=== PATIENT | male | born 1980 | race Caucasian/White ===

== ENCOUNTER 2021-12-15 15:54 | Inpatient (IN) | payer MEDICAID, OTHER ==
[~2021-12-15] VITALS: Ht 172.7 cm; Wt 56.6 kg
[2021-12-15] MEDS ORDERED: SODIUM CHLORIDE 0.9% 1,000 ML IVB ONE (17:15)
[2021-12-15] MEDS ORDERED: METOCLOPRAMIDE HCL 5MG/ml INJ 2ml VIAL IV ONE (17:45)
[2021-12-15] MEDS ORDERED: MORPHINE SULFATE 4 MG/ML SYR/VIAL IV ONE ×2 (17:45→22:00)
[2021-12-15 19:33] LABS: Basophils # (auto) 0.1 10 ^3/uL (0-0.2); Basophils % (auto) 0.7 % (0.0-2.0); Eosinophils # (auto) 0 10 ^3/uL (0-0.8); Hematocrit 42.9 % (41.0-53.0); Hemoglobin 14.4 g/dL (13.5-17.5); Lymphocytes # (auto) 1.7 10 ^3/uL (0.4-5.4); Lymphocytes % (auto) 15.7 % (10.0-50.0); Mean Corpuscular Hemoglobin 28.9 pg (28.0-32.0); Mean Corpuscular Hgb Conc. 33.7 g/dL (32.0-36.0); Mean Corpuscular Volume 85.8 fL (80.0-100.0); Monocytes # (auto) 0.5 10 ^3/uL (0-1.3); Monocytes % (auto) 5.1 % (0.0-12.0); Neutrophils # (auto) 8.4 10 ^3/uL (1.6-8.6); Neutrophils % (auto) 78.5 % (37.0-80.0); Red Cell Distribution Width 14.1 % (11.8-14.3); White Blood Cell 10.7 10^3/uL (4.4-10.8)
[2021-12-15] MEDS ORDERED: IOHEXOL 300 MG/ML 100ML BOTTLE IJ ONE ×3 (19:41→20:21)
[2021-12-15 19:50] LABS: Albumin 2.4 g/dL (3.4-5.0); Calcium 8.7 mg/dL (8.5-10.1)
[2021-12-15 19:55] LABS: Bilirubin, Total 0.2 mg/dL (0.2-1.0); Total Protein 7.4 g/dL (6.4-8.2)
[2021-12-15 20:34] LABS: Potassium 2.4 mmol/L (3.5-5.1)
[2021-12-15] MEDS ORDERED: POTASSIUM EFFERVESENT TAB 25 MEQ PO ONE (20:45)
[2021-12-15 21:01] LABS: Urine Amorphous Crystal FEW /hpf (None Seen); Urine Bacteria FEW /hpf (None Seen); Urine Blood Negative /uL (Negative); Urine Hyaline Cast MOD /lpf (0 - 2); Urine Mucus FEW (None Seen); Urine Specific Gravity 1.032 (1.001-1.035); Urine WBC 3 /hpf (0 - 3)
[2021-12-15] MEDS ORDERED: ONDANSETRON HCL 4 MG/2 ML VIAL IV ONE (21:45)
[2021-12-15] MEDS: POTASSIUM CHL 20MEQ/100ML 100 ML IV SCH (21:48)
[2021-12-16] MEDS ORDERED: D5W/SOD CHL 0.45%/KCL 20MEQ 1,000 ML IV ONE (01:00)
[2021-12-16] MEDS: POTASSIUM CHL 20MEQ/100ML 100 ML IV SCH (01:25)
[2021-12-16] MEDS ORDERED: ONDANSETRON HCL 4 MG/2 ML VIAL IV ONE (01:30)
[2021-12-16] MEDS ORDERED: MORPHINE SULFATE 4 MG/ML SYR/VIAL IV ONE (01:30)
[2021-12-16] MEDS ORDERED: PIPERACILLIN-TAZOB 3.375GM 100 ML IV ONE (01:45)
[2021-12-16] MEDS ORDERED: POTASSIUM CHLORIDE 40 MEQ in SOD CHL 0.45% 1,000 ML IV SCH (01:45)
[2021-12-16] MEDS ORDERED: POTASSIUM CHL 20MEQ/100ML 100 ML IV SCH (02:15)
[2021-12-16] MEDS ORDERED: DEXTROSE (50%) 50ML SYRG IV ONE (02:15)
[2021-12-16] MEDS ORDERED: DEXTROSE (50%) 50ML SYRG IV PRN (03:15)
[2021-12-16 03:26] LABS: BUN/Creatinine Ratio 22.5; Calcium 7.9 mg/dL (8.5-10.1); Potassium 3.3 mmol/L (3.5-5.1)
[2021-12-16] MEDS: InsuLIN REG 1unit/0.01ml Soln (100units/ml) SC SCH ×5 (04:00→22:26)
[2021-12-16] MEDS: ACCU-CHEK COMFORT CURVE STRIP VI SCH ×5 (04:09→22:25)
[2021-12-16] MEDS: PIPERACILLIN-TAZOB 3.375GM 100 ML IV SCH ×3 (08:00→14:28)
[2021-12-16] MEDS ORDERED: POTASSIUM CHL 20MEQ/100ML 100 ML IV ONE (08:30)
[2021-12-16] MEDS: ONDANSETRON HCL 4 MG/2 ML VIAL IV PRN ×2 (08:51→16:49)
[2021-12-16] MEDS: MORPHINE SULFATE INJ 2 MG/ml SYRG IV PRN ×3 (08:52→22:28)
[2021-12-16] MEDS: SODIUM CHLORIDE 0.9% 1,000 ML IV SCH ×4 (11:21→22:26)
[2021-12-16] MEDS: METOCLOPRAMIDE HCL 5MG/ml INJ 2ml VIAL IV SCH ×2 (14:20→18:30)
[2021-12-16 17:11] LABS: Basophils # (auto) 0 10 ^3/uL (0-0.2); Basophils % (auto) 0.6 % (0.0-2.0); Eosinophils # (auto) 0.1 10 ^3/uL (0-0.8); Eosinophils % (auto) 0.8 % (0.0-7.0); Hematocrit 38.1 % (41.0-53.0); Hemoglobin 12.6 g/dL (13.5-17.5); Lymphocytes # (auto) 0.8 10 ^3/uL (0.4-5.4); Lymphocytes % (auto) 10.2 % (10.0-50.0); Mean Corpuscular Hemoglobin 28.7 pg (28.0-32.0); Mean Corpuscular Hgb Conc. 33.1 g/dL (32.0-36.0); Mean Corpuscular Volume 86.9 fL (80.0-100.0); Monocytes # (auto) 0.5 10 ^3/uL (0-1.3); Neutrophils # (auto) 6.2 10 ^3/uL (1.6-8.6); Neutrophils % (auto) 81.4 % (37.0-80.0); Nucleated Red Blood Cells % 0.1 %; Red Blood Cells 4.38 10^6/uL (4.5-5.90); Red Cell Distribution Width 14.1 % (11.8-14.3); White Blood Cell 7.7 10^3/uL (4.4-10.8)
[2021-12-16 17:22] LABS: BUN/Creatinine Ratio 17.2; Potassium 3.6 mmol/L (3.5-5.1)
[2021-12-16 22:00] VITALS: BP 147/103
[2021-12-17] MEDS: METOCLOPRAMIDE HCL 5MG/ml INJ 2ml VIAL IV SCH ×4 (00:12→16:50)
[2021-12-17] MEDS: ACCU-CHEK COMFORT CURVE STRIP VI SCH ×6 (00:26→20:17)
[2021-12-17] MEDS: PIPERACILLIN-TAZOB 3.375GM 100 ML IV SCH ×4 (02:00→20:16)
[2021-12-17] MEDS: MORPHINE SULFATE INJ 2 MG/ml SYRG IV PRN ×5 (04:12→21:44)
[2021-12-17] MEDS: InsuLIN REG 1unit/0.01ml Soln (100units/ml) SC SCH ×6 (04:13→20:20)
[2021-12-17 05:00] VITALS: BP 143/94
[2021-12-17 06:08] LABS: Basophils # (auto) 0 10 ^3/uL (0-0.2); Basophils % (auto) 0.5 % (0.0-2.0); Eosinophils # (auto) 0.3 10 ^3/uL (0-0.8); Eosinophils % (auto) 4.1 % (0.0-7.0); Hematocrit 35.7 % (41.0-53.0); Hemoglobin 11.8 g/dL (13.5-17.5); Lymphocytes # (auto) 0.7 10 ^3/uL (0.4-5.4); Lymphocytes % (auto) 9.3 % (10.0-50.0); Mean Corpuscular Hemoglobin 28.8 pg (28.0-32.0); Mean Corpuscular Hgb Conc. 33.1 g/dL (32.0-36.0); Mean Corpuscular Volume 86.9 fL (80.0-100.0); Monocytes # (auto) 0.5 10 ^3/uL (0-1.3); Monocytes % (auto) 6.8 % (0.0-12.0); Neutrophils # (auto) 5.6 10 ^3/uL (1.6-8.6); Neutrophils % (auto) 79.3 % (37.0-80.0); Red Cell Distribution Width 13.7 % (11.8-14.3)
[2021-12-17 06:22] LABS: Calcium 7.8 mg/dL (8.5-10.1); Potassium 3.6 mmol/L (3.5-5.1)
[2021-12-17 06:24] LABS: BUN/Creatinine Ratio 19.4
[2021-12-17] MEDS: SODIUM CHLORIDE 0.9% 1,000 ML IV SCH ×3 (08:00→18:53)
[2021-12-17] MEDS: ONDANSETRON HCL 4 MG/2 ML VIAL IV PRN ×2 (08:14→16:50)
[2021-12-17 09:00] VITALS: BP 153/98
[2021-12-17 12:58] VITALS: BP 140/92
[2021-12-17 16:50] VITALS: BP 122/83
[2021-12-17] MEDS ORDERED: INSU1INJ19 SC (17:42)
[2021-12-17] MEDS ORDERED: INSREGI SC (17:42)
[2021-12-17] MEDS: PANTOPRAZOLE 40 MG TAB PO SCH (18:52)
[2021-12-17] MEDS: ENOXAPARIN SOD 40 MG/0.4 ML SYRINGE SC SCH (18:52)
[2021-12-17] MEDS: INSULIN LANTUS (GLARGINE) 1 /0.01ml (100units/ml) SC SCH (18:53)
[2021-12-17 22:00] VITALS: BP 126/81
[2021-12-17] MEDS ORDERED: diphenhdrAMINE HCL 50 MG/1 ML VL IV PRN (23:45)
[2021-12-18] VITALS (8 sets, daily range): BP systolic 96–146; BP diastolic 55–90
[2021-12-18] MEDS: METOCLOPRAMIDE HCL 5MG/ml INJ 2ml VIAL IV SCH ×4 (00:08→17:50)
[2021-12-18] MEDS: ACCU-CHEK COMFORT CURVE STRIP VI SCH ×6 (00:08→20:49)
[2021-12-18] MEDS ORDERED: diphenhdrAMINE HCL 50 MG/1 ML VL IV PRN (00:15)
[2021-12-18] MEDS: InsuLIN REG 1unit/0.01ml Soln (100units/ml) SC SCH ×6 (04:00→20:50)
[2021-12-18] MEDS: SODIUM CHLORIDE 0.9% 1,000 ML IV SCH (04:12)
[2021-12-18 05:31] LABS: Basophils # (auto) 0.2 10 ^3/uL (0-0.2); Eosinophils # (auto) 0.3 10 ^3/uL (0-0.8); Eosinophils % (auto) 3.4 % (0.0-7.0); Hematocrit 37.9 % (41.0-53.0); Hemoglobin 12.9 g/dL (13.5-17.5); Lymphocytes # (auto) 0.2 10 ^3/uL (0.4-5.4); Lymphocytes % (auto) 1.9 % (10.0-50.0); Mean Corpuscular Hemoglobin 29.1 pg (28.0-32.0); Mean Corpuscular Hgb Conc. 33.9 g/dL (32.0-36.0); Mean Corpuscular Volume 85.9 fL (80.0-100.0); Monocytes # (auto) 0.2 10 ^3/uL (0-1.3); Monocytes % (auto) 2.5 % (0.0-12.0); Neutrophils # (auto) 7.6 10 ^3/uL (1.6-8.6); Neutrophils % (auto) 90.2 % (37.0-80.0); Red Blood Cells 4.42 10^6/uL (4.5-5.90); Red Cell Distribution Width 13.9 % (11.8-14.3); White Blood Cell 8.4 10^3/uL (4.4-10.8)
[2021-12-18] MEDS ORDERED: metroNIDAZOLE 500MG/100ML 100 ML IV SCH (06:00)
[2021-12-18 06:09] LABS: BUN/Creatinine Ratio 13.1; Calcium 7.5 mg/dL (8.5-10.1)
[2021-12-18 06:21] LABS: Potassium 2.8 mmol/L (3.5-5.1)
[2021-12-18] MEDS: MORPHINE SULFATE INJ 2 MG/ml SYRG IV PRN ×2 (09:59→17:07)
[2021-12-18] MEDS ORDERED: levoFLOXacin 500MG 100 ML IV SCH (10:00)
[2021-12-18] MEDS: INSULIN LANTUS (GLARGINE) 1 /0.01ml (100units/ml) SC SCH (10:00)
[2021-12-18] MEDS: ENOXAPARIN SOD 40 MG/0.4 ML SYRINGE SC SCH (10:17)
[2021-12-18] MEDS: PANTOPRAZOLE 40 MG TAB PO SCH (10:22)
[2021-12-18] MEDS ORDERED: METO-281 PO (13:11)
[2021-12-18] MEDS ORDERED: POTASSIUM CHL 20 Meq TABLET PO ONE (13:15)
[2021-12-18] MEDS: POTASSIUM CHL 20MEQ/100ML 100 ML IV SCH ×2 (13:15→15:08)
[2021-12-18 20:13] LABS: Albumin 1.5 g/dL (3.4-5.0); BUN/Creatinine Ratio 11.8; Calcium 7.2 mg/dL (8.5-10.1)
[2021-12-18 20:16] LABS: Bilirubin, Total 0.2 mg/dL (0.2-1.0); Total Protein 4.6 g/dL (6.4-8.2)
== END 2021-12-18 23:23 | disposition home or self-care (01) | DRG 48 ==
LOC: EDBD 15:54 → ER 15:54 → TELE 12-16 02:55 → TELE-WESTW 12-16 20:18
PROVIDERS: ADMIT Internal Medicine; ATTEND Internal Medicine
DX: E10.43 Type 1 diabetes mellitus with diabetic autonomic (poly)neuropathy (principal); E44.1 Mild protein-calorie malnutrition; K31.84 Gastroparesis; E87.6 Hypokalemia; Z20.822 Contact with and (suspected) exposure to COVID-19; F12.90 Cannabis use, unspecified, uncomplicated; Z79.4 Long term (current) use of insulin; Z91.19 Patient's noncompliance with other medical treatment and regimen; Z68.1 Body mass index [BMI] 19.9 or less, adult
CPT/HCPCS: 36415; 74177; 76705; 80048; 80053; 81001; 82962; 83605; 83690; 83735; 84132; 85025; 87040; 96361; 96365; 96375; 97163; G0378; J1815; J1956; J2405; J2543; J3480; J3490

== ENCOUNTER 2022-02-08 11:46 | Inpatient (IN) | payer MEDICAID ==
[~2022-02-08] VITALS: Ht 172.7 cm; Wt 48.6 kg
[~2022-02-08 11:46] MED LIST: INSREGI SC; INSU1INJ19 SC; METO-281 PO
[2022-02-08] MEDS ORDERED: PROCHLORPERAZINE EDISYLATE 5 MG/ML 2ML VIAL IV ONE (12:15)
[2022-02-08] MEDS ORDERED: PANTOPRAZOLE 40 MG/10 ML VIAL INJ IV ONE (12:15)
[2022-02-08] MEDS ORDERED: SODIUM CHLORIDE 0.9% 1,000 ML IVB ONE (12:15)
[2022-02-08] MEDS ORDERED: MORPHINE SULFATE 4 MG/ML SYR/VIAL IV ONE ×2 (12:15→19:00)
[2022-02-08 14:32] LABS: Urine Bacteria FEW /hpf (None Seen); Urine Blood 1+ /uL (Negative); Urine Hyaline Cast FEW /lpf (0 - 2); Urine Mucus FEW (None Seen); Urine Specific Gravity 1.024 (1.001-1.035); Urine Sperm PRESENT /hpf (None Seen); Urine WBC 4 /hpf (0 - 3)
[2022-02-08 14:44] LABS: Basophils # (auto) 0 10 ^3/uL (0-0.2); Basophils % (auto) 0.4 % (0.0-2.0); Eosinophils # (auto) 0 10 ^3/uL (0-0.8); Eosinophils % (auto) 0.1 % (0.0-7.0); Hematocrit 43.2 % (41.0-53.0); Hemoglobin 13.7 g/dL (13.5-17.5); Lymphocytes # (auto) 1.3 10 ^3/uL (0.4-5.4); Lymphocytes % (auto) 13.3 % (10.0-50.0); Mean Corpuscular Hgb Conc. 31.7 g/dL (32.0-36.0); Mean Corpuscular Volume 85.2 fL (80.0-100.0); Monocytes # (auto) 0.6 10 ^3/uL (0-1.3); Monocytes % (auto) 5.8 % (0.0-12.0); Neutrophils # (auto) 7.8 10 ^3/uL (1.6-8.6); Neutrophils % (auto) 80.4 % (37.0-80.0); Red Blood Cells 5.06 10^6/uL (4.5-5.90); Red Cell Distribution Width 15.3 % (11.8-14.3); White Blood Cell 9.7 10^3/uL (4.4-10.8)
[2022-02-08 14:57] LABS: Albumin 3.2 g/dL (3.4-5.0); BUN/Creatinine Ratio 25.9; Calcium 8.6 mg/dL (8.5-10.1); Potassium 4.1 mmol/L (3.5-5.1)
[2022-02-08 15:09] LABS: Bilirubin, Total 0.2 mg/dL (0.2-1.0); Total Protein 7.6 g/dL (6.4-8.2)
[2022-02-08 15:20] LABS: Lactic Acid w/Reflex 2.2 mmol/L (0.4-2.0)
[2022-02-08] MEDS ORDERED: levoFLOXacin 500MG 100 ML IV ONE (16:30)
[2022-02-08] MEDS ORDERED: ONDANSETRON HCL 4 MG/2 ML VIAL IV ONE (19:00)
[2022-02-08] MEDS ORDERED: ACETAMINOPHEN 325 MG TAB PO PRN (22:00)
[2022-02-08] MEDS: MORPHINE SULFATE INJ 2 MG/ml SYRG IV PRN (23:40)
[2022-02-08] MEDS: ONDANSETRON HCL 4 MG/2 ML VIAL IV PRN (23:40)
[2022-02-09] VITALS (7 sets, daily range): BP systolic 131–155; BP diastolic 85–96
[2022-02-09] MEDS ORDERED: HYDR-4902 PO (03:01)
[2022-02-09] MEDS: HYDROcodone-ACET 5/325MG TAB PO PRN ×3 (03:27→18:48)
[2022-02-09] MEDS: ONDANSETRON HCL 4 MG/2 ML VIAL IV PRN ×4 (05:29→18:48)
[2022-02-09 06:35] LABS: Basophils # (auto) 0 10 ^3/uL (0-0.2); Basophils % (auto) 0.4 % (0.0-2.0); Eosinophils # (auto) 0 10 ^3/uL (0-0.8); Eosinophils % (auto) 0.4 % (0.0-7.0); Hematocrit 39.1 % (41.0-53.0); Hemoglobin 12.9 g/dL (13.5-17.5); Lymphocytes # (auto) 1.9 10 ^3/uL (0.4-5.4); Lymphocytes % (auto) 18.9 % (10.0-50.0); Mean Corpuscular Hemoglobin 28.4 pg (28.0-32.0); Mean Corpuscular Hgb Conc. 32.9 g/dL (32.0-36.0); Mean Corpuscular Volume 86.3 fL (80.0-100.0); Monocytes # (auto) 0.5 10 ^3/uL (0-1.3); Monocytes % (auto) 5.6 % (0.0-12.0); Neutrophils # (auto) 7.3 10 ^3/uL (1.6-8.6); Neutrophils % (auto) 74.7 % (37.0-80.0); Nucleated Red Blood Cells % 0.1 %; Red Blood Cells 4.53 10^6/uL (4.5-5.90); Red Cell Distribution Width 14.9 % (11.8-14.3); White Blood Cell 9.8 10^3/uL (4.4-10.8)
[2022-02-09 06:50] LABS: Albumin 2.7 g/dL (3.4-5.0); Calcium 8.6 mg/dL (8.5-10.1)
[2022-02-09 06:53] LABS: Bilirubin, Total 0.3 mg/dL (0.2-1.0); Total Protein 6.8 g/dL (6.4-8.2)
[2022-02-09] MEDS ORDERED: InsuLIN REG 1unit/0.01ml Soln (100units/ml) SC ONE (08:45)
[2022-02-09] MEDS ORDERED: INSULIN 70/30 1unit/0.01ml Susp (100units/ml) SC ONE (08:45)
[2022-02-09] MEDS: MORPHINE SULFATE INJ 2 MG/ml SYRG IV PRN ×3 (09:11→21:19)
[2022-02-09] MEDS: cefTRIAXone 1GM/50ML D5W 50 ML IV SCH (09:12)
[2022-02-09] MEDS ORDERED: HYDROmorphone HCL 2 MG/ML VL/or syr IV ONE (11:30)
[2022-02-09] MEDS: ACCU-CHEK COMFORT CURVE STRIP VI SCH ×3 (11:53→21:51)
[2022-02-09] MEDS: InsuLIN REG 1unit/0.01ml Soln (100units/ml) SC SCH ×3 (11:53→21:51)
[2022-02-09] MEDS: metroNIDAZOLE 500MG/100ML 100 ML IV SCH ×2 (14:00→21:51)
[2022-02-09] MEDS ORDERED: OMNIPAQUE ORAL SOLN 500ml 12mg/ml PO ONE (14:43)
[2022-02-09] MEDS: SOD CHL 0.9%/ KCL 20MEQ 1,000 ML IV SCH (15:58)
[2022-02-09] MEDS ORDERED: METOCLOPRAMIDE HCL 5MG/ml INJ 2ml VIAL IV ONE (17:15)
[2022-02-09] MEDS: INSULIN 70/30 1unit/0.01ml Susp (100units/ml) SC SCH (17:30)
[2022-02-09] MEDS ORDERED: IOHEXOL 300 MG/ML 100ML BOTTLE IJ ONE ×2 (19:26→19:46)
[2022-02-09] MEDS: PANTOPRAZOLE 40 MG/10 ML VIAL INJ IV SCH (21:19)
[2022-02-09] MEDS: METOCLOPRAMIDE HCL 5MG/ml INJ 2ml VIAL IV SCH (21:19)
[2022-02-10] MEDS: ONDANSETRON HCL 4 MG/2 ML VIAL IV PRN ×4 (00:25→20:16)
[2022-02-10] MEDS: MORPHINE SULFATE INJ 2 MG/ml SYRG IV PRN ×3 (01:28→11:14)
[2022-02-10] MEDS: SOD CHL 0.9%/ KCL 20MEQ 1,000 ML IV SCH (01:30)
[2022-02-10 05:00] VITALS: BP 168/93
[2022-02-10] MEDS: metroNIDAZOLE 500MG/100ML 100 ML IV SCH ×4 (05:17→22:00)
[2022-02-10] MEDS: METOCLOPRAMIDE HCL 5MG/ml INJ 2ml VIAL IV SCH ×2 (05:39→22:00)
[2022-02-10] MEDS: ACCU-CHEK COMFORT CURVE STRIP VI SCH ×4 (06:00→22:00)
[2022-02-10] MEDS: InsuLIN REG 1unit/0.01ml Soln (100units/ml) SC SCH ×4 (06:01→22:00)
[2022-02-10 06:40] LABS: Basophils % (auto) 0.2 % (0.0-2.0); Lymphocytes % (auto) 10.3 % (10.0-50.0); Monocytes % (auto) 3.9 % (0.0-12.0); Neutrophils % (auto) 85.6 % (37.0-80.0); Nucleated Red Blood Cells % 0.1 %; White Blood Cell 12.3 10^3/uL (4.4-10.8)
[2022-02-10 06:41] LABS: Basophils # (auto) 0 10 ^3/uL (0-0.2); Eosinophils # (auto) 0 10 ^3/uL (0-0.8); Hematocrit 42.6 % (41.0-53.0); Hemoglobin 13.3 g/dL (13.5-17.5); Lymphocytes # (auto) 1.3 10 ^3/uL (0.4-5.4); Mean Corpuscular Hemoglobin 27.6 pg (28.0-32.0); Mean Corpuscular Hgb Conc. 31.2 g/dL (32.0-36.0); Mean Corpuscular Volume 88.3 fL (80.0-100.0); Monocytes # (auto) 0.5 10 ^3/uL (0-1.3); Neutrophils # (auto) 10.5 10 ^3/uL (1.6-8.6); Red Blood Cells 4.82 10^6/uL (4.5-5.90); Red Cell Distribution Width 15.8 % (11.8-14.3)
[2022-02-10 08:00] VITALS: BP 155/90
[2022-02-10] MEDS: PANTOPRAZOLE 40 MG/10 ML VIAL INJ IV SCH ×2 (08:49→21:59)
[2022-02-10] MEDS: cefTRIAXone 1GM/50ML D5W 50 ML IV SCH (08:49)
[2022-02-10] MEDS: HYDROcodone-ACET 5/325MG TAB PO PRN (08:50)
[2022-02-10] MEDS: INSULIN 70/30 1unit/0.01ml Susp (100units/ml) SC SCH ×2 (10:40→17:30)
[2022-02-10] MEDS: DEXTROSE (50%) 50ML SYRG IV PRN ×2 (12:20→17:19)
[2022-02-10 13:00] VITALS: BP 142/92
[2022-02-10] MEDS ORDERED: cloNIDine 0.1 mg/24hr 7 DAY PATCH TD SCH (13:15)
[2022-02-10] MEDS ORDERED: METOCLOPRAMIDE 10 mg/10ml ORAL soln PO SCH (14:00)
[2022-02-10] MEDS: D5W/SOD CHL 0.45%/KCL 20MEQ 1,000 ML IV SCH ×2 (15:29→23:15)
[2022-02-10 16:39] VITALS: BP 155/96
[2022-02-10] MEDS: MORPHINE SULFATE 4 MG/ML SYR/VIAL IV PRN ×2 (17:58→21:59)
[2022-02-10 22:00] VITALS: BP 136/102
[2022-02-11] MEDS: MORPHINE SULFATE 4 MG/ML SYR/VIAL IV PRN ×6 (02:32→22:46)
[2022-02-11] MEDS: ONDANSETRON HCL 4 MG/2 ML VIAL IV PRN ×4 (02:32→18:44)
[2022-02-11] MEDS: HYDROcodone-ACET 5/325MG TAB PO PRN (03:50)
[2022-02-11 05:00] VITALS: BP 154/104
[2022-02-11] MEDS: METOCLOPRAMIDE HCL 5MG/ml INJ 2ml VIAL IV SCH ×3 (06:20→22:36)
[2022-02-11] MEDS: metroNIDAZOLE 500MG/100ML 100 ML IV SCH ×3 (06:22→22:43)
[2022-02-11] MEDS: ACCU-CHEK COMFORT CURVE STRIP VI SCH ×4 (06:26→22:31)
[2022-02-11] MEDS: InsuLIN REG 1unit/0.01ml Soln (100units/ml) SC SCH ×4 (06:26→22:30)
[2022-02-11 07:29] LABS: Basophils # (auto) 0.1 10 ^3/uL (0-0.2); Basophils % (auto) 0.8 % (0.0-2.0); Eosinophils # (auto) 0.1 10 ^3/uL (0-0.8); Eosinophils % (auto) 0.6 % (0.0-7.0); Hemoglobin 13.4 g/dL (13.5-17.5); Lymphocytes % (auto) 9.6 % (10.0-50.0); Mean Corpuscular Hemoglobin 27.5 pg (28.0-32.0); Mean Corpuscular Volume 85.8 fL (80.0-100.0); Monocytes # (auto) 0.6 10 ^3/uL (0-1.3); Monocytes % (auto) 5.7 % (0.0-12.0); Neutrophils # (auto) 9.1 10 ^3/uL (1.6-8.6); Neutrophils % (auto) 83.3 % (37.0-80.0); Red Blood Cells 4.89 10^6/uL (4.5-5.90); Red Cell Distribution Width 15.7 % (11.8-14.3); White Blood Cell 10.9 10^3/uL (4.4-10.8)
[2022-02-11 07:40] LABS: BUN/Creatinine Ratio 22.7; Calcium 8.6 mg/dL (8.5-10.1); Magnesium 2.5 mg/dL (1.6-2.6)
[2022-02-11] MEDS: INSULIN 70/30 1unit/0.01ml Susp (100units/ml) SC SCH ×2 (08:00→17:25)
[2022-02-11] MEDS: cefTRIAXone 1GM/50ML D5W 50 ML IV SCH (08:09)
[2022-02-11 09:00] VITALS: BP 151/95
[2022-02-11] MEDS: D5W/SOD CHL 0.45%/KCL 20MEQ 1,000 ML IV SCH ×2 (09:15→19:15)
[2022-02-11] MEDS: PANTOPRAZOLE 40 MG/10 ML VIAL INJ IV SCH ×2 (10:32→22:43)
[2022-02-11] MEDS: ERYTHROMYCIN LACTOBIONATE 250 MG in SODIUM CHL 0.9% 100 ML IV SCH (10:47)
[2022-02-11 13:00] VITALS: BP 150/94
[2022-02-11 17:00] VITALS: BP 152/98
[2022-02-11 22:00] VITALS: BP 142/91
[2022-02-12] MEDS: MORPHINE SULFATE 4 MG/ML SYR/VIAL IV PRN ×4 (02:16→22:09)
[2022-02-12] MEDS: D5W/SOD CHL 0.45%/KCL 20MEQ 1,000 ML IV SCH ×3 (02:50→23:54)
[2022-02-12 05:00] VITALS: BP 134/86
[2022-02-12] MEDS: metroNIDAZOLE 500MG/100ML 100 ML IV SCH ×3 (06:20→21:28)
[2022-02-12] MEDS: METOCLOPRAMIDE HCL 5MG/ml INJ 2ml VIAL IV SCH ×3 (06:34→22:09)
[2022-02-12] MEDS: InsuLIN REG 1unit/0.01ml Soln (100units/ml) SC SCH ×4 (06:35→22:25)
[2022-02-12] MEDS: ACCU-CHEK COMFORT CURVE STRIP VI SCH ×4 (06:36→22:25)
[2022-02-12 06:42] LABS: Basophils # (auto) 0.1 10 ^3/uL (0-0.2); Basophils % (auto) 1.3 % (0.0-2.0); Eosinophils # (auto) 0.8 10 ^3/uL (0-0.8); Eosinophils % (auto) 8.4 % (0.0-7.0); Hematocrit 40.2 % (41.0-53.0); Hemoglobin 12.8 g/dL (13.5-17.5); Lymphocytes % (auto) 21.9 % (10.0-50.0); Mean Corpuscular Hemoglobin 27.5 pg (28.0-32.0); Mean Corpuscular Hgb Conc. 31.7 g/dL (32.0-36.0); Mean Corpuscular Volume 86.7 fL (80.0-100.0); Monocytes # (auto) 0.6 10 ^3/uL (0-1.3); Monocytes % (auto) 6.4 % (0.0-12.0); Neutrophils # (auto) 5.7 10 ^3/uL (1.6-8.6); Nucleated Red Blood Cells % 0.1 %; Red Blood Cells 4.64 10^6/uL (4.5-5.90); Red Cell Distribution Width 15.4 % (11.8-14.3); White Blood Cell 9.2 10^3/uL (4.4-10.8)
[2022-02-12 07:04] LABS: BUN/Creatinine Ratio 21.5; Potassium 3.7 mmol/L (3.5-5.1)
[2022-02-12] MEDS: INSULIN 70/30 1unit/0.01ml Susp (100units/ml) SC SCH ×2 (07:30→17:49)
[2022-02-12 08:30] VITALS: BP 136/82
[2022-02-12 09:37] VITALS: BP 136/82
[2022-02-12] MEDS: cefTRIAXone 1GM/50ML D5W 50 ML IV SCH (12:30)
[2022-02-12] MEDS: PANTOPRAZOLE 40 MG/10 ML VIAL INJ IV SCH ×2 (12:35→22:09)
[2022-02-12 13:23] VITALS: BP 127/88
[2022-02-12] MEDS: ERYTHROMYCIN LACTOBIONATE 250 MG in SODIUM CHL 0.9% 100 ML IV SCH (15:00)
[2022-02-12 16:48] VITALS: BP 141/84
[2022-02-12 22:00] VITALS: BP 125/78
[2022-02-13 05:00] VITALS: BP 161/104
[2022-02-13] MEDS: METOCLOPRAMIDE HCL 5MG/ml INJ 2ml VIAL IV SCH ×3 (05:31→22:23)
[2022-02-13] MEDS: metroNIDAZOLE 500MG/100ML 100 ML IV SCH ×3 (05:31→22:23)
[2022-02-13] MEDS: MORPHINE SULFATE 4 MG/ML SYR/VIAL IV PRN ×2 (05:34→18:27)
[2022-02-13] MEDS ORDERED: hydrALAZINE HCL 20 MG/ML VL IV PRN (06:15)
[2022-02-13] MEDS: ACCU-CHEK COMFORT CURVE STRIP VI SCH ×4 (06:33→22:07)
[2022-02-13] MEDS: InsuLIN REG 1unit/0.01ml Soln (100units/ml) SC SCH ×4 (06:34→22:00)
[2022-02-13 09:00] VITALS: BP 139/93
[2022-02-13] MEDS: cefTRIAXone 1GM/50ML D5W 50 ML IV SCH (09:04)
[2022-02-13] MEDS: PANTOPRAZOLE 40 MG/10 ML VIAL INJ IV SCH ×2 (09:13→22:23)
[2022-02-13] MEDS: INSULIN 70/30 1unit/0.01ml Susp (100units/ml) SC SCH ×2 (09:13→17:02)
[2022-02-13] MEDS: D5W/SOD CHL 0.45%/KCL 20MEQ 1,000 ML IV SCH ×2 (11:45→22:22)
[2022-02-13 13:00] VITALS: BP 129/91
[2022-02-13 17:00] VITALS: BP 129/94
[2022-02-13 22:32] VITALS: BP 135/85
[2022-02-14 05:06] VITALS: BP 148/99
[2022-02-14] MEDS: METOCLOPRAMIDE HCL 5MG/ml INJ 2ml VIAL IV SCH ×2 (06:39→14:00)
[2022-02-14] MEDS: metroNIDAZOLE 500MG/100ML 100 ML IV SCH ×2 (06:39→14:00)
[2022-02-14] MEDS: ACCU-CHEK COMFORT CURVE STRIP VI SCH ×3 (06:40→18:00)
[2022-02-14] MEDS: InsuLIN REG 1unit/0.01ml Soln (100units/ml) SC SCH ×3 (06:58→18:00)
[2022-02-14 09:00] VITALS: BP 141/96
[2022-02-14] MEDS: cefTRIAXone 1GM/50ML D5W 50 ML IV SCH (09:41)
[2022-02-14] MEDS: PANTOPRAZOLE 40 MG/10 ML VIAL INJ IV SCH (09:42)
[2022-02-14] MEDS: INSULIN 70/30 1unit/0.01ml Susp (100units/ml) SC SCH ×2 (09:55→18:00)
[2022-02-14] MEDS: D5W/SOD CHL 0.45%/KCL 20MEQ 1,000 ML IV SCH ×2 (10:40→18:00)
[2022-02-14 13:00] VITALS: BP 143/96
[2022-02-14] MEDS ORDERED: METO5TAB67 PO (16:10)
[2022-02-14 16:43] VITALS: BP 137/83
== END 2022-02-14 18:00 | disposition home or self-care (01) | DRG 48 ==
LOC: ER 11:46 → EDBD 11:46 → OVERFLOW 22:51 → WEST WING 23:55
PROVIDERS: ADMIT Nurse Practitioner; ATTEND Internal Medicine
DX: E10.43 Type 1 diabetes mellitus with diabetic autonomic (poly)neuropathy (principal); N17.9 Acute kidney failure, unspecified; R64 Cachexia; E10.21 Type 1 diabetes mellitus with diabetic nephropathy; K31.84 Gastroparesis; E86.0 Dehydration; E87.6 Hypokalemia; E10.65 Type 1 diabetes mellitus with hyperglycemia; K21.9 Gastro-esophageal reflux disease without esophagitis; Z20.822 Contact with and (suspected) exposure to COVID-19; Z68.1 Body mass index [BMI] 19.9 or less, adult; Z79.4 Long term (current) use of insulin
CPT/HCPCS: 36415; 74176; 74177; 76705; 80048; 80053; 81001; 82150; 82962; 83036; 83605; 83690; 83735; 85025; 86141; 87040; 93005; 96361; 96365; 96375; 96376; C9113; G0378; J0696; J1815; J1956; J2405; J3490

== ENCOUNTER 2022-07-15 18:49 | Inpatient (IN) | payer MEDICAID ==
[~2022-07-15] VITALS: Ht 175.3 cm; Wt 61.0 kg
[~2022-07-15 18:49] MED LIST changes: +HYDR-4902 PO; -METO-281 PO; +METO5TAB67 PO
[2022-07-15] MEDS ORDERED: ONDANSETRON HCL 4 MG/2 ML VIAL IV ONE ×2 (19:30→22:30)
[2022-07-15] MEDS ORDERED: SODIUM CHLORIDE 0.9% 1,000 ML IVB ONE (19:30)
[2022-07-15 20:49] LABS: Eosinophils # (auto) 0 10 ^3/uL (0-0.8); Neutrophils # (auto) 15.3 10 ^3/uL (1.6-8.6)
[2022-07-15 20:51] LABS: Basophils # (auto) 0.1 10 ^3/uL (0-0.2); Basophils % (auto) 0.5 % (0.0-2.0); Hematocrit 43.5 % (41.0-53.0); Lymphocytes # (auto) 1.3 10 ^3/uL (0.4-5.4); Lymphocytes % (auto) 7.2 % (10.0-50.0); Mean Corpuscular Hemoglobin 27.2 pg (28.0-32.0); Mean Corpuscular Hgb Conc. 32.3 g/dL (32.0-36.0); Mean Corpuscular Volume 84.2 fL (80.0-100.0); Monocytes # (auto) 1.1 10 ^3/uL (0-1.3); Monocytes % (auto) 6.3 % (0.0-12.0); Red Blood Cells 5.17 10^6/uL (4.5-5.90); Red Cell Distribution Width 14.2 % (11.8-14.3); White Blood Cell 17.8 10^3/uL (4.4-10.8)
[2022-07-15 21:04] LABS: INR 0.92 (0.9-1.15); Partial Thromboplastin Time 24.4 sec (24.6-33.4)
[2022-07-15 21:05] LABS: Albumin 3.6 g/dL (3.4-5.0); BUN/Creatinine Ratio 19.1; Calcium 10.3 mg/dL (8.5-10.1)
[2022-07-15 21:08] LABS: Bilirubin, Total 0.2 mg/dL (0.2-1.0)
[2022-07-15 21:10] LABS: Lactic Acid w/Reflex 3.5 mmol/L (0.4-2.0)
[2022-07-15] MEDS ORDERED: DEXTROSE 50% SYRINGE 50 ML IV ONE (21:53)
[2022-07-15] MEDS ORDERED: DEXTROSE (50%) 50ML SYRG IV ONE (22:00)
[2022-07-15] MEDS ORDERED: MORPHINE SULFATE 4 MG/ML SYR/VIAL IV ONE (22:30)
[2022-07-15] MEDS ORDERED: D5W/SOD CHL 0.45% 1,000 ML IV ONE (22:45)
[2022-07-15] MEDS ORDERED: PANTOPRAZOLE 40 MG/10 ML VIAL INJ IV ONE (22:45)
[2022-07-15] MEDS ORDERED: PIPERACILLIN-TAZOB 3.375GM 100 ML IV ONE (22:45)
[2022-07-16] MEDS ORDERED: METOCLOPRAMIDE HCL 5MG/ml INJ 2ml VIAL IV ONE (02:45)
[2022-07-16] MEDS ORDERED: MORPHINE SULFATE 4 MG/ML SYR/VIAL IV ONE (02:45)
[2022-07-16] MEDS ORDERED: PROCHLORPERAZINE EDISYLATE 5 MG/ML 2ML VIAL IV ONE (05:30)
[2022-07-16] MEDS ORDERED: HYDROcodone-ACET 5/325MG TAB PO PRN (07:00)
[2022-07-16] MEDS ORDERED: VANCOMYCIN PER PHARMACY 0 MG IV SCH (07:00)
[2022-07-16] MEDS ORDERED: MAALOX PLUS or MAALOX 30 ML PO PRN (07:00)
[2022-07-16] MEDS: D5W/SOD CHL 0.45% 1,000 ML IV SCH ×2 (07:00→23:40)
[2022-07-16] MEDS ORDERED: LORazepam 0.5 MG TAB PO PRN (07:00)
[2022-07-16] MEDS ORDERED: TEMAZEPAM 15 MG CAP PO PRN (07:00)
[2022-07-16] MEDS ORDERED: ACETAMINOPHEN 325 MG TAB PO PRN (07:00)
[2022-07-16] MEDS ORDERED: DOCUSATE SOD 100 MG CAP PO PRN (07:00)
[2022-07-16] MEDS ORDERED: DEXTROSE 50% SYRINGE 50 ML IV ONE (07:15)
[2022-07-16] MEDS ORDERED: DEXTROSE (50%) 50ML SYRG IV ONE (07:15)
[2022-07-16] MEDS ORDERED: VANCOMYCIN 1GM/250ML 250 ML IV ONE (08:00)
[2022-07-16 08:19] LABS: Hematocrit 42.1 % (41.0-53.0); Hemoglobin 14.2 g/dL (13.5-17.5); Mean Corpuscular Hemoglobin 28.5 pg (28.0-32.0); Mean Corpuscular Hgb Conc. 33.7 g/dL (32.0-36.0); Mean Corpuscular Volume 84.4 fL (80.0-100.0); Red Blood Cells 4.98 10^6/uL (4.5-5.90); Red Cell Distribution Width 14.4 % (11.8-14.3); White Blood Cell 13.9 10^3/uL (4.4-10.8)
[2022-07-16] MEDS: ONDANSETRON HCL 4 MG/2 ML VIAL IV PRN ×2 (08:21→12:16)
[2022-07-16 08:22] LABS: Basophils % (manual) 0 (0.0-2.0); Blast Cells 0; Eosinophils % (manual) 0 (0-7); Metamyelocytes % 0; Myelocytes % 0; Promyelocytes % 0; Reactive Lymphocytes 0
[2022-07-16] MEDS: MORPHINE SULFATE INJ 2 MG/ml SYRG IV PRN ×3 (08:22→19:48)
[2022-07-16 08:58] LABS: Calcium 8.9 mg/dL (8.5-10.1)
[2022-07-16 09:01] LABS: BUN/Creatinine Ratio 21.9; Potassium 3.9 mmol/L (3.5-5.1)
[2022-07-16] MEDS: PANTOPRAZOLE 40 MG/10 ML VIAL INJ IV SCH ×2 (10:00→21:52)
[2022-07-16 14:03] LABS: Band Neutrophils % (manual) 8; Lymphocytes % (manual) 2 (10.0-50.0); Monocytes % (manual) 4 (0-12)
[2022-07-16] MEDS: PIPERACILLIN-TAZOB 3.375GM 100 ML IV SCH ×2 (14:22→22:59)
[2022-07-16 21:13] LABS: Urine Bacteria NONE SEEN /hpf (None Seen); Urine Blood 1+ /uL (Negative); Urine Hyaline Cast MOD /lpf (0 - 2); Urine Specific Gravity 1.021 (1.001-1.035); Urine WBC 3 /hpf (0 - 3)
[2022-07-17 00:39] VITALS: BP 120/75
[2022-07-17 05:00] VITALS: BP 125/81
[2022-07-17] MEDS: PIPERACILLIN-TAZOB 3.375GM 100 ML IV SCH ×3 (05:30→22:38)
[2022-07-17] MEDS: D5W/SOD CHL 0.45% 1,000 ML IV SCH ×2 (05:41→15:12)
[2022-07-17] MEDS: MORPHINE SULFATE INJ 2 MG/ml SYRG IV PRN ×3 (07:56→20:29)
[2022-07-17 08:00] VITALS: BP 142/80
[2022-07-17] MEDS: PANTOPRAZOLE 40 MG/10 ML VIAL INJ IV SCH ×2 (10:27→22:38)
[2022-07-17] MEDS: VANCOMYCIN 1GM/250ML 250 ML IV SCH (10:27)
[2022-07-17] MEDS: ONDANSETRON HCL 4 MG/2 ML VIAL IV PRN (10:28)
[2022-07-17 12:00] VITALS: BP 132/74
[2022-07-17] MEDS: METOCLOPRAMIDE HCL 10 MG TAB PO SCH ×2 (15:11→22:36)
[2022-07-17 16:00] VITALS: BP 122/62
[2022-07-17 22:00] VITALS: BP 115/55
[2022-07-18] VITALS (13 sets, daily range): BP systolic 98–117; BP diastolic 47–65
[2022-07-18] MEDS: D5W/SOD CHL 0.45% 1,000 ML IV SCH (00:15)
[2022-07-18] MEDS: VANCOMYCIN 1GM/250ML 250 ML IV SCH ×2 (00:56→14:00)
[2022-07-18] MEDS: MORPHINE SULFATE INJ 2 MG/ml SYRG IV PRN ×3 (00:57→23:34)
[2022-07-18] MEDS ORDERED: InsuLIN REG 1unit/0.01ml Soln (100units/ml) SC ONE (05:30)
[2022-07-18] MEDS ORDERED: SODIUM CHLORIDE 0.9% 1,000 ML IV SCH ×2 (05:30→09:15)
[2022-07-18] MEDS: METOCLOPRAMIDE HCL 10 MG TAB PO SCH ×3 (05:48→21:36)
[2022-07-18] MEDS: PIPERACILLIN-TAZOB 3.375GM 100 ML IV SCH ×3 (05:59→21:35)
[2022-07-18] MEDS ORDERED: DEXTROSE (50%) 50ML SYRG IV PRN ×4 (07:30→16:45)
[2022-07-18 07:33] LABS: Albumin 2.4 g/dL (3.4-5.0); Calcium 7.7 mg/dL (8.5-10.1); Potassium 4.8 mmol/L (3.5-5.1)
[2022-07-18 07:57] LABS: Bilirubin, Total 0.6 mg/dL (0.2-1.0)
[2022-07-18] MEDS ORDERED: ACCU-CHEK COMFORT CURVE STRIP VI SCH ×3 (08:00→20:00)
[2022-07-18] MEDS ORDERED: InsuLIN REG 1unit/0.01ml Soln (100units/ml) SC SCH ×2 (08:00→20:00)
[2022-07-18 08:50] LABS: BUN/Creatinine Ratio 26.1
[2022-07-18] MEDS: PANTOPRAZOLE 40 MG/10 ML VIAL INJ IV SCH (10:22)
[2022-07-18] MEDS ORDERED: SODIUM CHLORIDE 0.9% 1,000 ML IV ONE (10:30)
[2022-07-18] MEDS: ACCU-CHEK COMFORT CURVE STRIP VI SCH ×7 (12:13→23:43)
[2022-07-18] MEDS ORDERED: SODIUM CHLORIDE 0.9% 2,000 ML IV ONE (12:15)
[2022-07-18] MEDS: InsuLIN R (HUMAN) 100 UNITS in SODIUM CHL 0.9% 99 ML IV SCH ×2 (12:24→15:26)
[2022-07-18 13:48] LABS: BUN/Creatinine Ratio 26.2; Calcium 8.1 mg/dL (8.5-10.1); Potassium 4.2 mmol/L (3.5-5.1)
[2022-07-18] MEDS: D5W/SOD CHLO 0.9% 1,000 ML IV SCH ×2 (14:00→21:00)
[2022-07-18] MEDS: InsuLIN REG 1unit/0.01ml Soln (100units/ml) SC SCH ×3 (17:18→23:46)
[2022-07-18] MEDS: SUCRALFATE 1 GM/10 ML ORAL SUSP GT SCH (17:24)
[2022-07-18 18:09] LABS: Calcium 7.4 mg/dL (8.5-10.1); Potassium 4.5 mmol/L (3.5-5.1)
[2022-07-18 18:12] LABS: BUN/Creatinine Ratio 25.5
[2022-07-18] MEDS: PANTOPRAZOLE 40 MG TAB PO SCH (21:35)
[2022-07-18 23:26] LABS: Calcium 7.3 mg/dL (8.5-10.1); Potassium 3.8 mmol/L (3.5-5.1)
[2022-07-19] VITALS (10 sets, daily range): BP systolic 104–134; BP diastolic 48–77
[2022-07-19] MEDS: ONDANSETRON HCL 4 MG/2 ML VIAL IV PRN (03:00)
[2022-07-19] MEDS: D5W/SOD CHLO 0.9% 1,000 ML IV SCH ×4 (03:00→23:27)
[2022-07-19] MEDS ORDERED: HYDROcodone-ACET 5/325MG TAB PO PRN (03:30)
[2022-07-19] MEDS: ACCU-CHEK COMFORT CURVE STRIP VI SCH ×6 (03:57→23:47)
[2022-07-19] MEDS: InsuLIN REG 1unit/0.01ml Soln (100units/ml) SC SCH ×6 (04:00→23:55)
[2022-07-19] MEDS: MORPHINE SULFATE INJ 2 MG/ml SYRG IV PRN ×2 (04:19→21:37)
[2022-07-19 04:32] LABS: Basophils # (auto) 0 10 ^3/uL (0-0.2); Basophils % (auto) 0.5 % (0.0-2.0); Eosinophils # (auto) 0.8 10 ^3/uL (0-0.8); Eosinophils % (auto) 8.9 % (0.0-7.0); Hematocrit 33.8 % (41.0-53.0); Hemoglobin 11.1 g/dL (13.5-17.5); Lymphocytes # (auto) 0.4 10 ^3/uL (0.4-5.4); Lymphocytes % (auto) 3.9 % (10.0-50.0); Mean Corpuscular Volume 84.9 fL (80.0-100.0); Monocytes # (auto) 0.3 10 ^3/uL (0-1.3); Monocytes % (auto) 3.2 % (0.0-12.0); Neutrophils # (auto) 7.7 10 ^3/uL (1.6-8.6); Neutrophils % (auto) 83.5 % (37.0-80.0); Red Blood Cells 3.98 10^6/uL (4.5-5.90); Red Cell Distribution Width 14.2 % (11.8-14.3); White Blood Cell 9.2 10^3/uL (4.4-10.8)
[2022-07-19 04:36] LABS: Potassium 3.8 mmol/L (3.5-5.1)
[2022-07-19 04:45] LABS: BUN/Creatinine Ratio 26.9; Bilirubin, Total 0.3 mg/dL (0.2-1.0); Calcium 7.4 mg/dL (8.5-10.1); Total Protein 4.7 g/dL (6.4-8.2)
[2022-07-19] MEDS: METOCLOPRAMIDE HCL 10 MG TAB PO SCH ×3 (06:00→21:35)
[2022-07-19] MEDS: PIPERACILLIN-TAZOB 3.375GM 100 ML IV SCH ×3 (06:05→22:19)
[2022-07-19] MEDS: SUCRALFATE 1 GM/10 ML ORAL SUSP GT SCH ×2 (06:36→17:00)
[2022-07-19] MEDS: PANTOPRAZOLE 40 MG TAB PO SCH ×2 (09:45→21:34)
[2022-07-19] MEDS: INSULIN LANTUS (GLARGINE) 1 /0.01ml (100units/ml) SC SCH (11:32)
[2022-07-19] MEDS: VANCOMYCIN 500 MG in D5W 5% 100 ML IV SCH ×2 (13:33→23:23)
[2022-07-20] MEDS: InsuLIN REG 1unit/0.01ml Soln (100units/ml) SC SCH ×4 (04:08→17:03)
[2022-07-20] MEDS: ACCU-CHEK COMFORT CURVE STRIP VI SCH ×4 (04:09→17:03)
[2022-07-20 05:00] VITALS: BP 109/59
[2022-07-20 05:58] LABS: Magnesium 2.3 mg/dL (1.6-2.6)
[2022-07-20 06:01] LABS: Phosphorus 1.9 mg/dL (2.5-4.90)
[2022-07-20] MEDS: D5W/SOD CHLO 0.9% 1,000 ML IV SCH ×2 (06:06→12:40)
[2022-07-20] MEDS: PIPERACILLIN-TAZOB 3.375GM 100 ML IV SCH (06:06)
[2022-07-20] MEDS: METOCLOPRAMIDE HCL 10 MG TAB PO SCH ×2 (06:07→15:07)
[2022-07-20] MEDS: SUCRALFATE 1 GM/10 ML ORAL SUSP GT SCH ×2 (06:07→16:50)
[2022-07-20 08:00] VITALS: BP 134/77
[2022-07-20 08:07] LABS: Protein, Urine 212.7 mg/dL (0.0-11.9)
[2022-07-20 09:00] VITALS: BP 117/70
[2022-07-20] MEDS: INSULIN LANTUS (GLARGINE) 1 /0.01ml (100units/ml) SC SCH (09:21)
[2022-07-20] MEDS: PANTOPRAZOLE 40 MG TAB PO SCH (10:16)
[2022-07-20] MEDS: VANCOMYCIN 500 MG in D5W 5% 100 ML IV SCH (11:50)
[2022-07-20 13:00] VITALS: BP 147/93
[2022-07-20 16:20] VITALS: BP 117/70
[2022-07-20 17:00] VITALS: BP_SYST 118; BP_SYST 145; BP_DIAS 84; BP_DIAS 98
== END 2022-07-20 18:05 | disposition home or self-care (01) | DRG 48 ==
LOC: EDUNIT# 18:49 → EDBD 18:49 → ER 18:49 → TELE 07-16 07:01 → TELE-EAST 07-16 23:10 → ICU WEST 07-18 11:38 → TELE-EAST 07-19 03:20
PROVIDERS: ADMIT Hospitalist; ATTEND Internal Medicine
DX: E10.43 Type 1 diabetes mellitus with diabetic autonomic (poly)neuropathy (principal); N17.0 Acute kidney failure with tubular necrosis; R64 Cachexia; K92.2 Gastrointestinal hemorrhage, unspecified; L03.115 Cellulitis of right lower limb; E10.649 Type 1 diabetes mellitus with hypoglycemia without coma; E88.09 Other disorders of plasma-protein metabolism, not elsewhere classified; K38.1 Appendicular concretions; E10.10 Type 1 diabetes mellitus with ketoacidosis without coma; L03.116 Cellulitis of left lower limb; K31.84 Gastroparesis; E10.22 Type 1 diabetes mellitus with diabetic chronic kidney disease; Z20.822 Contact with and (suspected) exposure to COVID-19; D72.829 Elevated white blood cell count, unspecified; E86.0 Dehydration; E87.6 Hypokalemia; N18.2 Chronic kidney disease, stage 2 (mild); Z79.4 Long term (current) use of insulin; Z68.1 Body mass index [BMI] 19.9 or less, adult
CPT/HCPCS: 36415; 36600; 71045; 74176; 80048; 80053; 80202; 81001; 82010; 82570; 82805; 82962; 83605; 83690; 83735; 84100; 84156; 84300; 85007; 85025; 85027; 85610; 85730; 86850; 86900; 86901; 87040; 87081; 87426; 87804; 93005; 93306; 96365; 96367; 96375; C9113; G0378; J1815; J2405; J2543; J7042; J7060

== ENCOUNTER 2023-02-01 16:56 | Inpatient (IN) | payer MEDICAID ==
[~2023-02-01] VITALS: Ht 172.7 cm; Wt 65.6 kg
[2023-02-01] MEDS ORDERED: SODIUM CHLORIDE 0.9% 1,000 ML IV ONE ×3 (17:00→21:00)
[2023-02-01] MEDS ORDERED: ONDANSETRON HCL 4 MG/2 ML VIAL IV ONE ×2 (17:00→21:00)
[2023-02-01] MEDS ORDERED: DEXTROSE 10% 250 ML IV ONE (17:00)
[2023-02-01] MEDS ORDERED: PIPERACILLIN-TAZOB 3.375GM 100 ML IV ONE (17:00)
[2023-02-01 18:02] LABS: Basophils # (auto) 0.1 10 ^3/uL (0-0.2); Eosinophils # (auto) 0 10 ^3/uL (0-0.8); Hemoglobin 12.9 g/dL (13.5-17.5); Mean Corpuscular Volume 82.9 fL (80.0-100.0)
[2023-02-01 18:04] LABS: Basophils % (auto) 0.6 % (0.0-2.0); Eosinophils % (auto) 0.1 % (0.0-7.0); Hematocrit 40.6 % (41.0-53.0); Lymphocytes # (auto) 1.7 10 ^3/uL (0.4-5.4); Lymphocytes % (auto) 14.4 % (10.0-50.0); Mean Corpuscular Hemoglobin 26.3 pg (28.0-32.0); Mean Corpuscular Hgb Conc. 31.7 g/dL (32.0-36.0); Monocytes # (auto) 0.8 10 ^3/uL (0-1.3); Monocytes % (auto) 6.6 % (0.0-12.0); Neutrophils % (auto) 78.3 % (37.0-80.0); Red Blood Cells 4.89 10^6/uL (4.5-5.90); Red Cell Distribution Width 17.3 % (11.8-14.3); White Blood Cell 11.5 10^3/uL (4.4-10.8)
[2023-02-01 18:21] LABS: INR 0.97 (0.9-1.15); Partial Thromboplastin Time 25.1 SEC (24.5-34.5)
[2023-02-01 18:24] LABS: Calcium 9.2 mg/dL (8.5-10.1); Potassium 4.6 mmol/L (3.5-5.1)
[2023-02-01 18:28] LABS: Bilirubin, Total 0.1 mg/dL (0.2-1.0); Total Protein 7.2 g/dL (6.4-8.2)
[2023-02-01 18:29] LABS: Lactic Acid w/Reflex 2.5 mmol/L (0.4-2.0)
[2023-02-01] MEDS ORDERED: MORPHINE SULFATE 4 MG/ML SYR/VIAL IV ONE ×2 (19:00→21:00)
[2023-02-01] MEDS ORDERED: ACETAMINOPHEN 325 MG TAB PO PRN (21:00)
[2023-02-01] MEDS ORDERED: NITROGLYCERIN 0.4 MG SL TAB SL PRN (21:00)
[2023-02-01] MEDS ORDERED: metroNIDAZOLE 500MG/100ML 100 ML IV ONE (21:00)
[2023-02-01] MEDS ORDERED: HYDROcodone-ACET 5/325MG TAB PO PRN (21:00)
[2023-02-01] MEDS ORDERED: MORPHINE SULFATE INJ 2 MG/ml SYRG IV PRN (21:00)
[2023-02-01] MEDS ORDERED: SODIUM CHLORIDE 0.9% 1,000 ML IV SCH (21:00)
[2023-02-01 21:51] LABS: Eosinophils # (auto) 0 10 ^3/uL (0-0.8); Eosinophils % (auto) 0.1 % (0.0-7.0); Lymphocytes # (auto) 1.2 10 ^3/uL (0.4-5.4); Mean Corpuscular Hemoglobin 26.4 pg (28.0-32.0); Monocytes # (auto) 0.8 10 ^3/uL (0-1.3); Monocytes % (auto) 7.2 % (0.0-12.0); Neutrophils # (auto) 9.1 10 ^3/uL (1.6-8.6); Nucleated Red Blood Cells % 0.1 %
[2023-02-01 21:53] LABS: Basophils # (auto) 0.1 10 ^3/uL (0-0.2); Basophils % (auto) 0.5 % (0.0-2.0); Hematocrit 40.4 % (41.0-53.0); Hemoglobin 12.7 g/dL (13.5-17.5); Lymphocytes % (auto) 11.1 % (10.0-50.0); Mean Corpuscular Hgb Conc. 31.5 g/dL (32.0-36.0); Mean Corpuscular Volume 83.7 fL (80.0-100.0); Neutrophils % (auto) 81.1 % (37.0-80.0); Red Blood Cells 4.83 10^6/uL (4.5-5.90); White Blood Cell 11.2 10^3/uL (4.4-10.8)
[2023-02-01] MEDS: DEXTROSE (50%) 50ML SYRG IV PRN (22:01)
[2023-02-01 22:11] LABS: Albumin 2.5 g/dL (3.4-5.0); Calcium 8.5 mg/dL (8.5-10.1); Potassium 4.5 mmol/L (3.5-5.1)
[2023-02-01 22:15] LABS: BUN/Creatinine Ratio 12.9 (10.0-20.0); Bilirubin, Total 0.1 mg/dL (0.2-1.0); Total Protein 6.9 g/dL (6.4-8.2)
[2023-02-01] MEDS: ONDANSETRON HCL 4 MG/2 ML VIAL IV PRN (23:18)
[2023-02-02] MEDS: InsuLIN REG 1unit/0.01ml Soln (100units/ml) SC SCH ×7 (00:32→23:23)
[2023-02-02] MEDS: ACCU-CHEK COMFORT CURVE STRIP VI SCH ×7 (00:40→23:22)
[2023-02-02] MEDS: DEXTROSE (50%) 50ML SYRG IV PRN ×2 (00:42→23:16)
[2023-02-02] MEDS ORDERED: PROMETHAZINE HCL 25 MG/ML 1ML IV ONE (01:30)
[2023-02-02] MEDS ORDERED: DEXTROSE 10% 1,000 ML IV ONE (01:30)
[2023-02-02] MEDS: MORPHINE SULFATE INJ 2 MG/ml SYRG IV PRN ×3 (01:58→19:14)
[2023-02-02] MEDS: ONDANSETRON HCL 4 MG/2 ML VIAL IV PRN ×3 (03:48→19:13)
[2023-02-02 03:54] LABS: Alcohol, Urine < 3.0 mg/dL (0-10); Amphetamine Screen, Urine NEGATIVE (NEGATIVE); Barbiturate Scree,Urine NEGATIVE (NEGATIVE); Benzodiazephine Screen, Urine NEGATIVE (NEGATIVE); Cannabinoid Screen, Urine POSITIVE (NEGATIVE)
[2023-02-02 04:02] LABS: Cocaine Screen, Urine NEGATIVE (NEGATIVE); Opiate Scree,Urine POSITIVE (NEGATIVE); Phencyclidine Screen, Urine NEGATIVE (NEGATIVE)
[2023-02-02 04:09] LABS: Urine Bacteria FEW /hpf (None Seen); Urine Blood Negative /uL (Negative); Urine Specific Gravity 1.021 (1.001-1.035); Urine WBC 3 /hpf (0 - 3)
[2023-02-02] MEDS ORDERED: HYALURONIDASE 150 UNIT/1 ML SUBCUT ONE (07:00)
[2023-02-02] MEDS ORDERED: cefTRIAXone 1GM/50ML D5W 50 ML IV SCH (09:00)
[2023-02-02] MEDS: PANTOPRAZOLE 40 MG TAB PO SCH (11:24)
[2023-02-02] MEDS ORDERED: DEXTROSE 10% 1,000 ML IV SCH ×2 (11:45→13:00)
[2023-02-02 13:04] LABS: Hepatitis A Ab IgM Negative; Hepatitis B Core IgM Negative
[2023-02-02 13:05] LABS: Hepatitis C Antibody Negative (Negative)
[2023-02-02] MEDS: SODIUM CHLORIDE 0.9% 1,000 ML IV SCH ×2 (13:05→19:40)
[2023-02-02] MEDS ORDERED: metroNIDAZOLE 500MG/100ML 100 ML IV SCH (14:00)
[2023-02-02] MEDS: PIPERACILLIN-TAZOB 3.375GM 100 ML IV SCH ×2 (17:03→22:36)
[2023-02-02 22:00] VITALS: BP 125/92
[2023-02-02 22:12] VITALS: BP 125/92
[2023-02-02] MEDS ORDERED: INSU1INJ26 SC (22:17)
[2023-02-03] MEDS: ONDANSETRON HCL 4 MG/2 ML VIAL IV PRN ×2 (00:13→08:14)
[2023-02-03] MEDS: MORPHINE SULFATE INJ 2 MG/ml SYRG IV PRN ×3 (01:01→14:13)
[2023-02-03] MEDS: SODIUM CHLORIDE 0.9% 1,000 ML IV SCH ×3 (03:32→15:40)
[2023-02-03] MEDS: ACCU-CHEK COMFORT CURVE STRIP VI SCH ×5 (03:33→20:03)
[2023-02-03] MEDS: InsuLIN REG 1unit/0.01ml Soln (100units/ml) SC SCH ×5 (03:35→20:06)
[2023-02-03 05:00] VITALS: BP 105/55
[2023-02-03] MEDS: PIPERACILLIN-TAZOB 3.375GM 100 ML IV SCH ×3 (05:54→21:51)
[2023-02-03 08:00] VITALS: BP 125/69
[2023-02-03] MEDS: PANTOPRAZOLE 40 MG TAB PO SCH (08:14)
[2023-02-03 08:55] VITALS: BP 125/69
[2023-02-03] MEDS ORDERED: ONDANSETRON HCL 4 MG/2 ML VIAL IV PRN (10:15)
[2023-02-03] MEDS: PANTOPRAZOLE 40 MG/10 ML VIAL INJ IV SCH ×2 (10:29→21:34)
[2023-02-03] MEDS: SUCRALFATE 1 GM/10 ML ORAL SUSP PO SCH ×2 (11:00→18:08)
[2023-02-03 12:50] VITALS: BP 103/52
[2023-02-03] MEDS: METOCLOPRAMIDE HCL 5MG/ml INJ 2ml VIAL IV PRN ×2 (13:49→21:56)
[2023-02-03 17:24] VITALS: BP 110/59
[2023-02-03] MEDS ORDERED: DICYCLOMINE HCL (10MG/ML) 2 ML AMPULE IM ONE (17:30)
[2023-02-03 22:00] VITALS: BP 112/61
[2023-02-04] MEDS: SODIUM CHLORIDE 0.9% 1,000 ML IV SCH ×3 (00:08→11:40)
[2023-02-04] MEDS: ACCU-CHEK COMFORT CURVE STRIP VI SCH ×4 (00:14→12:40)
[2023-02-04] MEDS: InsuLIN REG 1unit/0.01ml Soln (100units/ml) SC SCH ×4 (03:34→10:34)
[2023-02-04 05:00] VITALS: BP 114/56
[2023-02-04] MEDS: PIPERACILLIN-TAZOB 3.375GM 100 ML IV SCH (06:11)
[2023-02-04] MEDS: SUCRALFATE 1 GM/10 ML ORAL SUSP PO SCH (06:14)
[2023-02-04] MEDS ORDERED: PANT40T PO (07:49)
[2023-02-04] MEDS ORDERED: LEVO500T91 PO (07:49)
[2023-02-04] MEDS ORDERED: ZOFR4T PO (07:49)
[2023-02-04 08:30] VITALS: BP 104/48
[2023-02-04 09:21] VITALS: BP 104/48
[2023-02-04] MEDS: PANTOPRAZOLE 40 MG/10 ML VIAL INJ IV SCH ×2 (10:26→10:30)
== END 2023-02-04 12:45 | disposition home or self-care (01) | DRG 720 ==
LOC: EDBD 16:56 → ER 16:56 → TELE 21:04 → TELE-CENTR 02-02 21:38
PROVIDERS: ADMIT Family Medicine; ATTEND Family Medicine
DX: A41.9 Sepsis, unspecified organism (principal); G93.41 Metabolic encephalopathy; R64 Cachexia; E11.649 Type 2 diabetes mellitus with hypoglycemia without coma; R65.11 Systemic inflammatory response syndrome (SIRS) of non-infectious origin with acute organ dysfunction; L03.119 Cellulitis of unspecified part of limb; Z79.4 Long term (current) use of insulin; Z68.1 Body mass index [BMI] 19.9 or less, adult
CPT/HCPCS: 36415; 71045; 74176; 80053; 80074; 80307; 81001; 82010; 82962; 83036; 83605; 83690; 84484; 85025; 85610; 85730; 86703; 87040; 87086; 93971; 96361; 96365; 96366; 96367; 96375; 96376; 99291; C9113; G0378; J0696; J1815; J2405; J2543; J3470; J3490

== ENCOUNTER 2023-04-18 22:11 | Inpatient (IN) | payer MEDICAID ==
[~2023-04-18] VITALS: Ht 172.7 cm; Wt 50.1 kg
[~2023-04-18 22:11] MED LIST changes: -HYDR-4902 PO; -INSREGI SC; -INSU1INJ19 SC; +INSU1INJ26 SC; +LEVO500T91 PO; -METO5TAB67 PO; +PANT40T PO; +ZOFR4T PO
[2023-04-18 23:03] LABS: Basophils # (auto) 0 10 ^3/uL (0-0.2); Eosinophils # (auto) 0 10 ^3/uL (0-0.8); Monocytes # (auto) 0.3 10 ^3/uL (0-1.3); Monocytes % (auto) 3.8 % (0.0-12.0)
[2023-04-18 23:04] LABS: Basophils % (auto) 0.5 % (0.0-2.0); Hematocrit 31.7 % (41.0-53.0); Hemoglobin 10.3 g/dL (13.5-17.5); Lymphocytes # (auto) 0.4 10 ^3/uL (0.4-5.4); Lymphocytes % (auto) 4.9 % (10.0-50.0); Mean Corpuscular Hemoglobin 26.5 pg (28.0-32.0); Mean Corpuscular Hgb Conc. 32.6 g/dL (32.0-36.0); Mean Corpuscular Volume 81.4 fL (80.0-100.0); Neutrophils # (auto) 6.9 10 ^3/uL (1.6-8.6); Neutrophils % (auto) 90.8 % (37.0-80.0); Red Cell Distribution Width 16.2 % (11.8-14.3); White Blood Cell 7.6 10^3/uL (4.4-10.8)
[2023-04-18 23:24] LABS: Alanine Aminotransferase 56 U/L (7-40); Albumin 3.9 g/dL (3.2-4.8); Alkaline Phosphatase 359 U/L (46-116); Anion Gap 8 (5-15); Aspartate Aminotransferase 39 U/L (13-40); BUN/Creatinine Ratio 26.3 (10.0-20.0); Bilirubin, Total 0.6 mg/dL (0.2-1.0); Blood Urea Nitrogen 25 mg/dL (9-23); Calcium 9.2 mg/dL (8.7-10.4); Carbon Dioxide 32 mmol/L (20-30); Chloride 105 mmol/L (98-107); Glucose 86 mg/dL (74-106); Sodium 145 mmol/L (136-145); Total Protein 6.6 g/dL (5.7-8.2)
[2023-04-18 23:45] VITALS: PULSE 122; RESP 18; O2SAT 95
[2023-04-18] MEDS ORDERED: MORPHINE SULFATE 4 MG/ML SYR/VIAL IV ONE (23:45)
[2023-04-18] MEDS ORDERED: METOCLOPRAMIDE HCL 5MG/ml INJ 2ml VIAL IV ONE (23:45)
[2023-04-18] MEDS ORDERED: SODIUM CHLORIDE 0.9% 1,000 ML IV ONE (23:45)
[2023-04-19] MEDS ORDERED: METOCLOPRAMIDE HCL 5MG/ml INJ 2ml VIAL IV ONE (01:00)
[2023-04-19] MEDS ORDERED: HALOPERIDOL LACTATE 5 MG/ML INJ VIAL IV ONE (02:30)
[2023-04-19] MEDS ORDERED: DEXTROSE (50%) 50ML SYRG IV PRN (05:15)
[2023-04-19] MEDS ORDERED: D5W/SOD CHLO 0.9% 1,000 ML IV SCH (05:15)
[2023-04-19 05:17] LABS: Urine Bacteria NONE SEEN /hpf (None Seen); Urine Blood 2+ /uL (Negative); Urine Clarity Clear (Clear); Urine Color Yellow (Yellow); Urine Mucus FEW (None Seen); Urine Protein, UAD 3+ (Negative); Urine Specific Gravity 1.024 (1.001-1.035); Urine Urobilinogen Normal (Negative); Urine WBC 2 /hpf (0 - 3)
[2023-04-19] MEDS: MORPHINE SULFATE INJ 2 MG/ml SYRG IV PRN ×2 (05:32→10:03)
[2023-04-19] MEDS: ONDANSETRON HCL 4 MG/2 ML VIAL IV PRN ×4 (05:32→20:16)
[2023-04-19] MEDS: InsuLIN REG 1unit/0.01ml Soln (100units/ml) SC SCH ×3 (06:00→17:14)
[2023-04-19] MEDS: ACCU-CHEK COMFORT CURVE STRIP VI SCH ×3 (06:13→17:11)
[2023-04-19] MEDS: PIPERACILLIN-TAZOB 3.375GM 100 ML IV SCH ×3 (06:23→17:00)
[2023-04-19 07:20] VITALS: PULSE 126; RESP 14; O2SAT 98
[2023-04-19] MEDS ORDERED: TPN PER PHARMACY 0 ML IV SCH (11:30)
[2023-04-19 12:08] LABS: Phosphorus 3.8 mg/dL (2.4-5.1)
[2023-04-19 12:22] LABS: Magnesium 2.1 mg/dL (1.6-2.6)
[2023-04-19] MEDS: SOD CHL 0.45% 1,000 ML IV SCH ×2 (12:27→22:06)
[2023-04-19] MEDS ORDERED: ACETAMINOPHEN 325 MG TAB PO PRN (13:00)
[2023-04-19] MEDS ORDERED: ACETAMINOPHEN 650 MG RECT SUPP PR ONE (13:00)
[2023-04-19 13:30] LABS: Hemoglobin 9.2 g/dL (13.5-17.5); Red Cell Distribution Width 16.3 % (11.8-14.3)
[2023-04-19 13:31] LABS: Hematocrit 28.6 % (41.0-53.0); Mean Corpuscular Hemoglobin 26.1 pg (28.0-32.0); Mean Corpuscular Hgb Conc. 32.1 g/dL (32.0-36.0); Mean Corpuscular Volume 81.4 fL (80.0-100.0); Red Blood Cells 3.51 10^6/uL (4.5-5.90); White Blood Cell 7.4 10^3/uL (4.4-10.8)
[2023-04-19 13:35] LABS: Band Neutrophils % (manual) 0; Basophils % (manual) 0 (0.0-2.0); Blast Cells 0; Eosinophils % (manual) 0 (0-7); Metamyelocytes % 0; Myelocytes % 0; Promyelocytes % 0; Reactive Lymphocytes 0
[2023-04-19 14:08] LABS: Lymphocytes % (manual) 4 (10.0-50.0); Monocytes % (manual) 1 (0-12); Platelet Estimate Adequate
[2023-04-19 14:12] LABS: Chloride 110 mmol/L (98-107); Potassium 3.2 mmol/L (3.5-5.1); Sodium 146 mmol/L (136-145)
[2023-04-19 14:13] LABS: Anion Gap 9 (5-15); Calcium 7.8 mg/dL (8.7-10.4); Carbon Dioxide 27 mmol/L (20-30)
[2023-04-19 14:17] LABS: Amphetamine Screen, Urine Neg (NEGATIVE); Barbiturate Scree,Urine Neg (NEGATIVE); Benzodiazephine Screen, Urine Neg (NEGATIVE); Cocaine Screen, Urine Neg (NEGATIVE); Opiate Scree,Urine Pos (NEGATIVE); Phencyclidine Screen, Urine Neg (NEGATIVE)
[2023-04-19 14:18] LABS: BUN/Creatinine Ratio 24.5 (10.0-20.0); Blood Urea Nitrogen 25 mg/dL (9-23); Glucose 165 mg/dL (74-106)
[2023-04-19 14:18] LABS: Cannabinoid Screen, Urine Pos (NEGATIVE)
[2023-04-19] MEDS: HYDROmorphone HCL 2 MG/ML VL/or syr IV PRN ×2 (14:47→20:38)
[2023-04-19] MEDS ORDERED: POTASSIUM CHL 20MEQ/100ML 100 ML IV ONE (16:00)
[2023-04-19] MEDS ORDERED: POTASSIUM CHL 20MEQ/100ML 100 ML IV SCH (16:30)
[2023-04-19 16:50] VITALS: PULSE 116; RESP 20; O2SAT 94
[2023-04-19 16:51] VITALS: BP 113/62; PULSE 117; RESP 20; TEMP 97.8; O2SAT 93
[2023-04-19 17:14] VITALS: BP 113/62; PULSE 117; RESP 20; TEMP 97.8
[2023-04-19] MEDS ORDERED: INSU1INJ26 SC ×2 (17:24)
[2023-04-19] MEDS ORDERED: TPN PER PHARMACY IV NR ×10 (20:00)
[2023-04-19] MEDS: NYSTATIN-TRIAMCINOLONE TOPICAL CRE 15GM TOP SCH (21:59)
[2023-04-19 22:00] VITALS: BP 118/65; PULSE 105; RESP 19; TEMP 97.9; O2SAT 94
[2023-04-20] MEDS ORDERED: DEXTROSE (50%) 50ML SYRG IV SCH
[2023-04-20] MEDS: InsuLIN REG 1unit/0.01ml Soln (100units/ml) SC SCH ×5 (00:05→23:40)
[2023-04-20] MEDS: PIPERACILLIN-TAZOB 3.375GM 100 ML IV SCH ×2 (00:06→05:42)
[2023-04-20] MEDS: ONDANSETRON HCL 4 MG/2 ML VIAL IV PRN ×3 (00:07→09:37)
[2023-04-20] MEDS: HYDROmorphone HCL 2 MG/ML VL/or syr IV PRN ×4 (04:11→18:24)
[2023-04-20 05:00] VITALS: BP 130/72; PULSE 101; RESP 19; TEMP 97.7; O2SAT 96
[2023-04-20 05:20] LABS: Basophils # (auto) 0 10 ^3/uL (0-0.2); Eosinophils # (auto) 0.3 10 ^3/uL (0-0.8); Hemoglobin 8.9 g/dL (13.5-17.5); Monocytes # (auto) 0.2 10 ^3/uL (0-1.3)
[2023-04-20 05:22] LABS: Basophils % (auto) 0.1 % (0.0-2.0); Eosinophils % (auto) 3.1 % (0.0-7.0); Hematocrit 26.9 % (41.0-53.0); Lymphocytes # (auto) 0.3 10 ^3/uL (0.4-5.4); Mean Corpuscular Hemoglobin 26.8 pg (28.0-32.0); Mean Corpuscular Hgb Conc. 32.9 g/dL (32.0-36.0); Mean Corpuscular Volume 81.5 fL (80.0-100.0); Monocytes % (auto) 2.3 % (0.0-12.0); Neutrophils % (auto) 91.5 % (37.0-80.0); Red Blood Cells 3.31 10^6/uL (4.5-5.90); Red Cell Distribution Width 16.4 % (11.8-14.3); White Blood Cell 8.7 10^3/uL (4.4-10.8)
[2023-04-20 05:31] LABS: Lactic Acid w/Reflex 2.2 mmol/L (0.4-2.0)
[2023-04-20 05:32] LABS: Alanine Aminotransferase 46 U/L (7-40); Alkaline Phosphatase 235 U/L (46-116); Anion Gap 7 (5-15); BUN/Creatinine Ratio 19.4 (10.0-20.0); Calcium 7.5 mg/dL (8.7-10.4); Carbon Dioxide 27 mmol/L (20-30); Chloride 106 mmol/L (98-107); Magnesium 1.9 mg/dL (1.6-2.6); Potassium 3.6 mmol/L (3.5-5.1); Sodium 140 mmol/L (136-145)
[2023-04-20 05:33] LABS: Albumin 2.9 g/dL (3.2-4.8); Aspartate Aminotransferase 32 U/L (13-40); Bilirubin, Total 1.1 mg/dL (0.2-1.0); Phosphorus 3.9 mg/dL (2.4-5.1); Total Protein 5.1 g/dL (5.7-8.2)
[2023-04-20 05:35] LABS: Ferritin 110.1 ng/mL (22-322); Folate (Folic Acid) 9.92 ng/mL (>5.38)
[2023-04-20 05:37] LABS: INR 1.17 (0.9-1.15); Prothrombin Time 12.2 sec (9.3-11.8)
[2023-04-20 05:39] LABS: Blood Urea Nitrogen 35 mg/dL (9-23); Glucose 286 mg/dL (74-106)
[2023-04-20] MEDS: ACCU-CHEK COMFORT CURVE STRIP VI SCH ×5 (05:39→23:39)
[2023-04-20 06:53] LABS: Erythrocyte Sedimentation Rate 77 mm/hr (0-20)
[2023-04-20] MEDS: SOD CHL 0.45% 1,000 ML IV SCH ×2 (08:00→18:06)
[2023-04-20 09:10] VITALS: BP 123/66; PULSE 109; RESP 19; TEMP 98.3; O2SAT 95
[2023-04-20] MEDS: NYSTATIN-TRIAMCINOLONE TOPICAL CRE 15GM TOP SCH ×2 (10:00→22:00)
[2023-04-20] MEDS ORDERED: PIPERACILLIN-TAZOB 3.375GM 100 ML IV SCH (11:00)
[2023-04-20] MEDS ORDERED: PIPERACILLIN-TAZOB 2.25GM 50 ML IV SCH ×2 (11:00→12:00)
[2023-04-20] MEDS: INSULIN LANTUS (GLARGINE) 1 /0.01ml (100units/ml) SC SCH (11:30)
[2023-04-20 13:08] VITALS: BP 111/56; PULSE 106; RESP 20; TEMP 98.2; O2SAT 93
[2023-04-20] MEDS: METOCLOPRAMIDE HCL 5MG/ml INJ 2ml VIAL IV PRN (13:21)
[2023-04-20] MEDS ORDERED: metroNIDAZOLE 500MG/100ML 100 ML IV SCH (14:00)
[2023-04-20 16:34] VITALS: BP 120/65; PULSE 106; RESP 19; TEMP 98.4; O2SAT 94
[2023-04-20] MEDS ORDERED: TPN PER PHARMACY IV NR ×11 (20:00)
[2023-04-20 22:00] VITALS: BP 121/67; PULSE 104; RESP 19; TEMP 98.2; O2SAT 95
[2023-04-20] MEDS: CEFEPIME 1GM/ 50ML 50 ML IV SCH (23:30)
[2023-04-21] MEDS: HYDROmorphone HCL 2 MG/ML VL/or syr IV PRN ×4 (00:51→23:33)
[2023-04-21] MEDS: METOCLOPRAMIDE HCL 5MG/ml INJ 2ml VIAL IV PRN ×3 (00:51→23:33)
[2023-04-21] MEDS: SOD CHL 0.45% 1,000 ML IV SCH ×2 (04:00→14:33)
[2023-04-21 05:00] VITALS: BP 139/77; PULSE 105; RESP 19; TEMP 98.2; O2SAT 93
[2023-04-21 06:09] LABS: Basophils # (auto) 0 10 ^3/uL (0-0.2); Eosinophils # (auto) 0.6 10 ^3/uL (0-0.8); Hemoglobin 8.6 g/dL (13.5-17.5); Lymphocytes # (auto) 0.5 10 ^3/uL (0.4-5.4); Neutrophils # (auto) 7.2 10 ^3/uL (1.6-8.6); White Blood Cell 8.6 10^3/uL (4.4-10.8)
[2023-04-21 06:11] LABS: Basophils % (auto) 0.3 % (0.0-2.0); Eosinophils % (auto) 7.4 % (0.0-7.0); Hematocrit 26.3 % (41.0-53.0); Lymphocytes % (auto) 5.4 % (10.0-50.0); Mean Corpuscular Hemoglobin 26.4 pg (28.0-32.0); Mean Corpuscular Hgb Conc. 32.6 g/dL (32.0-36.0); Mean Corpuscular Volume 80.8 fL (80.0-100.0); Monocytes # (auto) 0.2 10 ^3/uL (0-1.3); Monocytes % (auto) 2.7 % (0.0-12.0); Neutrophils % (auto) 84.2 % (37.0-80.0); Red Blood Cells 3.25 10^6/uL (4.5-5.90); Red Cell Distribution Width 16.9 % (11.8-14.3)
[2023-04-21 06:20] LABS: Alanine Aminotransferase 49 U/L (7-40); Albumin 2.9 g/dL (3.2-4.8); Alkaline Phosphatase 294 U/L (46-116); Anion Gap 9 (5-15); Aspartate Aminotransferase 27 U/L (13-40); BUN/Creatinine Ratio 20.7 (10.0-20.0); Blood Urea Nitrogen 41 mg/dL (9-23); Carbon Dioxide 26 mmol/L (20-30); Chloride 107 mmol/L (98-107); Glucose 226 mg/dL (74-106); LDL Cholesterol 32 mg/dL (< 100); Potassium 3.8 mmol/L (3.5-5.1); Sodium 142 mmol/L (136-145)
[2023-04-21 06:21] LABS: Bilirubin, Total 1.4 mg/dL (0.2-1.0); Cholesterol 131 mg/dL (< 200); HDL Cholesterol < 5 mg/dL (40-59); Phosphorus 2.4 mg/dL (2.4-5.1); Total Protein 5.3 g/dL (5.7-8.2)
[2023-04-21 06:31] LABS: Triglycerides 424 mg/dL (< 150)
[2023-04-21] MEDS: ACCU-CHEK COMFORT CURVE STRIP VI SCH ×3 (07:35→19:04)
[2023-04-21] MEDS: INSULIN LANTUS (GLARGINE) 1 /0.01ml (100units/ml) SC SCH (07:38)
[2023-04-21] MEDS: InsuLIN REG 1unit/0.01ml Soln (100units/ml) SC SCH ×3 (07:45→18:00)
[2023-04-21 08:00] VITALS: RESP 18
[2023-04-21 09:26] VITALS: BP 126/70; PULSE 118; RESP 20; TEMP 99; O2SAT 94
[2023-04-21] MEDS: NYSTATIN-TRIAMCINOLONE TOPICAL CRE 15GM TOP SCH (10:00)
[2023-04-21] MEDS: CEFEPIME 1GM/ 50ML 50 ML IV SCH ×2 (10:00→23:01)
[2023-04-21] MEDS: ONDANSETRON HCL 4 MG/2 ML VIAL IV PRN (10:34)
[2023-04-21] MEDS ORDERED: FLEET ENEMA(ADULT) 135 ML PR ONE (11:30)
[2023-04-21] MEDS ORDERED: OMNIPAQUE 12mg/ml 500ml ORAL SOLUTION PO ONE (12:47)
[2023-04-21] MEDS ORDERED: POTASSIUM PHOSPHATE 11 MEQ in SODIUM CHL 0.9% 100 ML IV ONE (13:00)
[2023-04-21 13:02] VITALS: BP 125/70; PULSE 106; RESP 20; TEMP 99.3; O2SAT 93
[2023-04-21 16:45] VITALS: BP 129/74; PULSE 102; RESP 19; TEMP 98.8; O2SAT 92
[2023-04-21 22:00] VITALS: BP 131/78; PULSE 100; RESP 16; TEMP 98.1; O2SAT 94
[2023-04-21] MEDS ORDERED: MELATONIN 5 MG TAB PO ONE (22:15)
[2023-04-21] MEDS: TPN PER PHARMACY IV NR ×8 (23:09)
[2023-04-22] VITALS (7 sets, daily range): BP systolic 123–145; BP diastolic 73–84; PULSE 88–111; RESP 14–20; TEMP 98–98.5; O2SAT 92–96
[2023-04-22] MEDS: ACCU-CHEK COMFORT CURVE STRIP VI SCH ×4 (00:15→17:12)
[2023-04-22] MEDS: NYSTATIN-TRIAMCINOLONE TOPICAL CRE 15GM TOP SCH ×3 (00:49→21:46)
[2023-04-22 05:18] LABS: Basophils # (auto) 0 10 ^3/uL (0-0.2); Basophils % (auto) 0.4 % (0.0-2.0); Eosinophils # (auto) 0.3 10 ^3/uL (0-0.8); Hemoglobin 7.8 g/dL (13.5-17.5); Lymphocytes # (auto) 1.1 10 ^3/uL (0.4-5.4); Mean Corpuscular Volume 80.3 fL (80.0-100.0); Neutrophils # (auto) 3.2 10 ^3/uL (1.6-8.6); Nucleated Red Blood Cells % 0.1 %
[2023-04-22 05:20] LABS: Eosinophils % (auto) 6.6 % (0.0-7.0); Lymphocytes % (auto) 22.3 % (10.0-50.0); Mean Corpuscular Hemoglobin 25.9 pg (28.0-32.0); Mean Corpuscular Hgb Conc. 32.3 g/dL (32.0-36.0); Monocytes # (auto) 0.4 10 ^3/uL (0-1.3); Monocytes % (auto) 7.1 % (0.0-12.0); Neutrophils % (auto) 63.6 % (37.0-80.0); Red Blood Cells 2.99 10^6/uL (4.5-5.90); Red Cell Distribution Width 16.7 % (11.8-14.3)
[2023-04-22 05:37] LABS: Alanine Aminotransferase 81 U/L (7-40); Albumin 2.8 g/dL (3.2-4.8); Alkaline Phosphatase 585 U/L (46-116); Anion Gap 6 (5-15); Aspartate Aminotransferase 71 U/L (13-40); BUN/Creatinine Ratio 21.3 (10.0-20.0); Blood Urea Nitrogen 38 mg/dL (9-23); Calcium 7.7 mg/dL (8.7-10.4); Carbon Dioxide 27 mmol/L (20-30); Chloride 108 mmol/L (98-107); Glucose 185 mg/dL (74-106); Magnesium 2.2 mg/dL (1.6-2.6); Potassium 3.5 mmol/L (3.5-5.1); Sodium 141 mmol/L (136-145)
[2023-04-22 05:38] LABS: Bilirubin, Total 1.6 mg/dL (0.2-1.0); Phosphorus 2.8 mg/dL (2.4-5.1)
[2023-04-22] MEDS: INSULIN LANTUS (GLARGINE) 1 /0.01ml (100units/ml) SC SCH (06:20)
[2023-04-22] MEDS: InsuLIN REG 1unit/0.01ml Soln (100units/ml) SC SCH ×4 (06:21→17:12)
[2023-04-22] MEDS: METOCLOPRAMIDE HCL 5MG/ml INJ 2ml VIAL IV PRN (07:47)
[2023-04-22] MEDS: HYDROmorphone HCL 2 MG/ML VL/or syr IV PRN ×4 (07:47→21:39)
[2023-04-22] MEDS: CEFEPIME 1GM/ 50ML 50 ML IV SCH ×2 (09:54→21:10)
[2023-04-22] MEDS: SOD CHL 0.45% 1,000 ML IV SCH ×3 (09:58→20:00)
[2023-04-22] MEDS: ONDANSETRON HCL 4 MG/2 ML VIAL IV PRN ×3 (12:38→21:11)
[2023-04-22] MEDS: TPN PER PHARMACY IV NR ×8 (19:54)
[2023-04-22] MEDS ORDERED: CALCIUM GLUC IV NR ×8 (20:00)
[2023-04-22] MEDS ORDERED: POTASSIUM PHOSPHATE IV NR ×8 (20:00)
[2023-04-22] MEDS ORDERED: [UNRECOGNIZED DRUG - OTHER] IV NR ×8 (20:00)
[2023-04-23] MEDS: ONDANSETRON HCL 4 MG/2 ML VIAL IV PRN ×3 (01:43→21:59)
[2023-04-23] MEDS: HYDROmorphone HCL 2 MG/ML VL/or syr IV PRN ×5 (01:47→22:00)
[2023-04-23 05:01] VITALS: BP 139/86; PULSE 92; RESP 18; TEMP 98.2; O2SAT 93
[2023-04-23] MEDS: SOD CHL 0.45% 1,000 ML IV SCH ×2 (06:00→16:03)
[2023-04-23 06:37] LABS: Alanine Aminotransferase 82 U/L (7-40); Albumin 2.9 g/dL (3.2-4.8); Alkaline Phosphatase 676 U/L (46-116); Anion Gap 6 (5-15); Aspartate Aminotransferase 43 U/L (13-40); BUN/Creatinine Ratio 18.7 (10.0-20.0); Blood Urea Nitrogen 29 mg/dL (9-23); Calcium 7.6 mg/dL (8.7-10.4); Carbon Dioxide 27 mmol/L (20-30); Chloride 108 mmol/L (98-107); Glucose 211 mg/dL (74-106); Magnesium 2.2 mg/dL (1.6-2.6); Phosphorus 3.2 mg/dL (2.4-5.1); Potassium 3.8 mmol/L (3.5-5.1); Sodium 141 mmol/L (136-145)
[2023-04-23] MEDS: METOCLOPRAMIDE HCL 5MG/ml INJ 2ml VIAL IV PRN ×2 (06:55→15:57)
[2023-04-23] MEDS: ACCU-CHEK COMFORT CURVE STRIP VI SCH ×4 (06:58→17:37)
[2023-04-23] MEDS: InsuLIN REG 1unit/0.01ml Soln (100units/ml) SC SCH ×4 (07:04→17:39)
[2023-04-23] MEDS: INSULIN LANTUS (GLARGINE) 1 /0.01ml (100units/ml) SC SCH (07:05)
[2023-04-23 08:00] VITALS: PULSE 89; RESP 16
[2023-04-23 08:30] VITALS: BP 127/76; PULSE 89; RESP 16; O2SAT 92
[2023-04-23] MEDS: CEFEPIME 1GM/ 50ML 50 ML IV SCH (09:13)
[2023-04-23] MEDS: NYSTATIN-TRIAMCINOLONE TOPICAL CRE 15GM TOP SCH ×2 (09:14→22:06)
[2023-04-23 12:30] VITALS: BP 133/75; PULSE 89; RESP 18; TEMP 98.2; O2SAT 92
[2023-04-23] MEDS: ceFAZolin 1GM/50ML 50 ML IV SCH ×2 (13:32→22:00)
[2023-04-23 17:12] VITALS: BP 129/71; PULSE 90; RESP 20; TEMP 98.2; O2SAT 94
[2023-04-23] MEDS ORDERED: TPN PER PHARMACY IV NR ×9 (20:00)
[2023-04-23 22:00] VITALS: BP 139/78; PULSE 89; RESP 17; TEMP 98.3; O2SAT 92
[2023-04-24] VITALS (7 sets, daily range): BP systolic 124–142; BP diastolic 73–82; PULSE 89–98; RESP 16–18; TEMP 98.2–99.7; O2SAT 91–96
[2023-04-24] MEDS: ACCU-CHEK COMFORT CURVE STRIP VI SCH ×5 (00:18→23:38)
[2023-04-24] MEDS: InsuLIN REG 1unit/0.01ml Soln (100units/ml) SC SCH ×5 (00:19→23:37)
[2023-04-24] MEDS: METOCLOPRAMIDE HCL 5MG/ml INJ 2ml VIAL IV PRN ×2 (01:11→10:19)
[2023-04-24] MEDS: SOD CHL 0.45% 1,000 ML IV SCH ×2 (03:58→12:00)
[2023-04-24] MEDS: ONDANSETRON HCL 4 MG/2 ML VIAL IV PRN ×2 (03:59→23:37)
[2023-04-24] MEDS: HYDROmorphone HCL 2 MG/ML VL/or syr IV PRN ×4 (04:00→23:37)
[2023-04-24 05:50] LABS: Hemoglobin 8.2 g/dL (13.5-17.5); Red Blood Cells 3.15 10^6/uL (4.5-5.90)
[2023-04-24 05:55] LABS: Hematocrit 25.4 % (41.0-53.0); Mean Corpuscular Hgb Conc. 32.3 g/dL (32.0-36.0); Mean Corpuscular Volume 80.7 fL (80.0-100.0); Red Cell Distribution Width 16.6 % (11.8-14.3); White Blood Cell 10.1 10^3/uL (4.4-10.8)
[2023-04-24 05:57] LABS: Band Neutrophils % (manual) 0; Basophils % (manual) 0 (0.0-2.0); Blast Cells 0; Metamyelocytes % 0; Myelocytes % 0; Promyelocytes % 0; Reactive Lymphocytes 0
[2023-04-24] MEDS: ceFAZolin 1GM/50ML 50 ML IV SCH ×3 (06:00→21:29)
[2023-04-24 06:04] LABS: Alanine Aminotransferase 56 U/L (7-40); Alkaline Phosphatase 590 U/L (46-116); Anion Gap 6 (5-15); Aspartate Aminotransferase 22 U/L (13-40); BUN/Creatinine Ratio 17.2 (10.0-20.0); Blood Urea Nitrogen 22 mg/dL (9-23); Calcium 7.4 mg/dL (8.5-10.1); Carbon Dioxide 26 mmol/L (20-30); Chloride 106 mmol/L (98-107); Glucose 202 mg/dL (74-106); Potassium 3.2 mmol/L (3.5-5.1); Sodium 138 mmol/L (136-145); Triglycerides 201 mg/dL (< 150)
[2023-04-24 06:05] LABS: Albumin 2.7 g/dL (3.2-4.8); Bilirubin, Total 0.7 mg/dL (0.2-1.0); Phosphorus 2.9 mg/dL (2.4-5.1); Total Protein 4.8 g/dL (5.7-8.2)
[2023-04-24 06:31] LABS: Magnesium 2.2 mg/dL (1.6-2.6)
[2023-04-24] MEDS: INSULIN LANTUS (GLARGINE) 1 /0.01ml (100units/ml) SC SCH (06:43)
[2023-04-24] MEDS ORDERED: POTASSIUM CHL 20MEQ/100ML 100 ML IV ONE ×2 (06:45→09:45)
[2023-04-24 07:49] LABS: Eosinophils % (manual) 3 (0-7); Lymphocytes % (manual) 26 (10.0-50.0); Monocytes % (manual) 6 (0-12)
[2023-04-24 07:51] LABS: Platelet Estimate Adequate
[2023-04-24] MEDS ORDERED: POTASSIUM PHOSP 22MEQ(15MMOLE) in NS 100 ML IV ONE ×2 (10:00→11:00)
[2023-04-24] MEDS: NYSTATIN-TRIAMCINOLONE TOPICAL CRE 15GM TOP SCH ×2 (10:19→23:17)
[2023-04-24] MEDS: metroNIDAZOLE 500MG/100ML 100 ML IV SCH ×3 (13:04→21:29)
[2023-04-24] MEDS: TPN PER PHARMACY IV NR ×11 (20:05)
[2023-04-25] VITALS (7 sets, daily range): BP systolic 119–134; BP diastolic 74–83; PULSE 95–108; RESP 14–20; TEMP 97.5–98.6; O2SAT 92–97
[2023-04-25] MEDS: SOD CHL 0.45% 1,000 ML IV SCH ×3 (01:51→18:39)
[2023-04-25] MEDS: METOCLOPRAMIDE HCL 5MG/ml INJ 2ml VIAL IV PRN ×2 (03:32→13:53)
[2023-04-25] MEDS: HYDROmorphone HCL 2 MG/ML VL/or syr IV PRN ×4 (03:41→20:50)
[2023-04-25 05:13] LABS: Hemoglobin 8.6 g/dL (13.5-17.5); Red Cell Distribution Width 16.8 % (11.8-14.3)
[2023-04-25 05:17] LABS: Hematocrit 26.5 % (41.0-53.0); Mean Corpuscular Hemoglobin 26.1 pg (28.0-32.0); Mean Corpuscular Hgb Conc. 32.6 g/dL (32.0-36.0); Mean Corpuscular Volume 80.2 fL (80.0-100.0); White Blood Cell 14.2 10^3/uL (4.4-10.8)
[2023-04-25 05:25] LABS: Basophils % (manual) 0 (0.0-2.0); Blast Cells 0; Metamyelocytes % 0; Myelocytes % 0; Reactive Lymphocytes 0
[2023-04-25] MEDS: ceFAZolin 1GM/50ML 50 ML IV SCH ×3 (05:30→21:33)
[2023-04-25] MEDS: metroNIDAZOLE 500MG/100ML 100 ML IV SCH ×3 (05:30→21:33)
[2023-04-25 05:34] LABS: Alanine Aminotransferase 40 U/L (7-40); Alkaline Phosphatase 621 U/L (46-116); Anion Gap 5 (5-15); Aspartate Aminotransferase 12 U/L (13-40); BUN/Creatinine Ratio 13.4 (10.0-20.0); Bilirubin, Total 0.5 mg/dL (0.2-1.0); Blood Urea Nitrogen 17 mg/dL (9-23); Calcium 7.5 mg/dL (8.7-10.4); Carbon Dioxide 27 mmol/L (20-30); Chloride 105 mmol/L (98-107); Glucose 249 mg/dL (74-106); Phosphorus 3.5 mg/dL (2.4-5.1); Potassium 3.4 mmol/L (3.5-5.1); Sodium 137 mmol/L (136-145); Total Protein 5.2 g/dL (5.7-8.2)
[2023-04-25] MEDS: ACCU-CHEK COMFORT CURVE STRIP VI SCH ×4 (05:49→23:42)
[2023-04-25] MEDS: InsuLIN REG 1unit/0.01ml Soln (100units/ml) SC SCH ×4 (05:49→23:36)
[2023-04-25] MEDS: INSULIN LANTUS (GLARGINE) 1 /0.01ml (100units/ml) SC SCH (06:33)
[2023-04-25 07:42] LABS: Band Neutrophils % (manual) 8; Eosinophils % (manual) 3 (0-7); Lymphocytes % (manual) 14 (10.0-50.0); Monocytes % (manual) 3 (0-12); Promyelocytes % 1
[2023-04-25 07:43] LABS: Platelet Estimate Adequate
[2023-04-25] MEDS: POTASSIUM CHL 20MEQ/100ML 100 ML IV SCH ×2 (09:22→11:28)
[2023-04-25] MEDS: ONDANSETRON HCL 4 MG/2 ML VIAL IV PRN ×2 (11:28→20:50)
[2023-04-25] MEDS ORDERED: GADOTERATE MEG 7.5 MMOL/15ml INJ (0.5MMOL/ml) IV ONE (13:02)
[2023-04-25] MEDS: NYSTATIN-TRIAMCINOLONE TOPICAL CRE 15GM TOP SCH ×2 (13:53→21:37)
[2023-04-25] MEDS ORDERED: CATHFLO ACTIVASE (ALTEPLASE) 2 MG VIAL IV ONE (18:45)
[2023-04-25] MEDS: TPN PER PHARMACY IV NR ×22 (20:23→20:26)
[2023-04-25] MEDS: PANTOPRAZOLE 40 MG/10 ML VIAL INJ IV SCH (23:38)
[2023-04-26] VITALS (7 sets, daily range): BP systolic 125–139; BP diastolic 73–86; PULSE 87–101; RESP 14–17; TEMP 98.2–99.2; O2SAT 93–100
[2023-04-26] MEDS: ONDANSETRON HCL 4 MG/2 ML VIAL IV PRN ×5 (01:53→20:16)
[2023-04-26] MEDS: HYDROmorphone HCL 2 MG/ML VL/or syr IV PRN ×5 (01:53→20:17)
[2023-04-26] MEDS: SOD CHL 0.45% 1,000 ML IV SCH ×2 (05:17→16:37)
[2023-04-26 05:56] LABS: Hematocrit 24.5 % (41.0-53.0); Hemoglobin 7.8 g/dL (13.5-17.5); Mean Corpuscular Hemoglobin 25.8 pg (28.0-32.0); Mean Corpuscular Hgb Conc. 31.6 g/dL (32.0-36.0); Mean Corpuscular Volume 81.5 fL (80.0-100.0); Red Blood Cells 3.01 10^6/uL (4.5-5.90); Red Cell Distribution Width 16.8 % (11.8-14.3); White Blood Cell 11.3 10^3/uL (4.4-10.8)
[2023-04-26 05:59] LABS: Basophils % (manual) 0 (0.0-2.0); Blast Cells 0; Myelocytes % 0; Promyelocytes % 0; Reactive Lymphocytes 0
[2023-04-26] MEDS: ACCU-CHEK COMFORT CURVE STRIP VI SCH ×3 (06:10→18:00)
[2023-04-26] MEDS: ceFAZolin 1GM/50ML 50 ML IV SCH ×3 (06:10→21:09)
[2023-04-26 06:16] LABS: Alanine Aminotransferase 27 U/L (7-40); Albumin 2.8 g/dL (3.2-4.8); Alkaline Phosphatase 634 U/L (46-116); Anion Gap 4 (5-15); Aspartate Aminotransferase 17 U/L (13-40); BUN/Creatinine Ratio 11.5 (10.0-20.0); Blood Urea Nitrogen 12 mg/dL (9-23); Carbon Dioxide 26 mmol/L (20-30); Chloride 104 mmol/L (98-107); Glucose 168 mg/dL (74-106); Magnesium 1.8 mg/dL (1.6-2.6); Potassium 3.7 mmol/L (3.5-5.1); Sodium 134 mmol/L (136-145)
[2023-04-26 06:17] LABS: Bilirubin, Total 0.5 mg/dL (0.2-1.0); Phosphorus 2.7 mg/dL (2.4-5.1); Total Protein 4.9 g/dL (5.7-8.2)
[2023-04-26] MEDS: InsuLIN REG 1unit/0.01ml Soln (100units/ml) SC SCH ×3 (06:30→18:00)
[2023-04-26] MEDS: INSULIN LANTUS (GLARGINE) 1 /0.01ml (100units/ml) SC SCH (06:31)
[2023-04-26 07:27] LABS: Band Neutrophils % (manual) 4; Eosinophils % (manual) 1 (0-7); Lymphocytes % (manual) 14 (10.0-50.0); Metamyelocytes % 3; Monocytes % (manual) 7 (0-12); Platelet Estimate Adequate
[2023-04-26] MEDS: NYSTATIN-TRIAMCINOLONE TOPICAL CRE 15GM TOP SCH ×2 (10:32→21:14)
[2023-04-26] MEDS: PANTOPRAZOLE 40 MG/10 ML VIAL INJ IV SCH (12:14)
[2023-04-26] MEDS ORDERED: IOHEXOL 350 MG/ML 100ML IJ ONE (12:37)
[2023-04-26] MEDS: TPN PER PHARMACY IV NR ×11 (19:54)
[2023-04-26] MEDS ORDERED: TPN PER PHARMACY IV NR ×13 (20:00)
[2023-04-27] MEDS: ONDANSETRON HCL 4 MG/2 ML VIAL IV PRN ×6 (00:18→21:20)
[2023-04-27] MEDS: HYDROmorphone HCL 2 MG/ML VL/or syr IV PRN ×6 (00:18→21:31)
[2023-04-27] MEDS: ACCU-CHEK COMFORT CURVE STRIP VI SCH ×4 (00:19→17:55)
[2023-04-27] MEDS: InsuLIN REG 1unit/0.01ml Soln (100units/ml) SC SCH ×4 (00:21→17:54)
[2023-04-27] MEDS: SOD CHL 0.45% 1,000 ML IV SCH ×2 (00:31→10:43)
[2023-04-27 05:00] VITALS: BP 148/87; PULSE 98; RESP 14; TEMP 98.4; O2SAT 95
[2023-04-27] MEDS: ceFAZolin 1GM/50ML 50 ML IV SCH ×3 (05:23→21:13)
[2023-04-27 05:34] LABS: Basophils % (auto) 0.4 % (0.0-2.0); Eosinophils # (auto) 0.1 10 ^3/uL (0-0.8); Eosinophils % (auto) 1.2 % (0.0-7.0); Hemoglobin 8.4 g/dL (13.5-17.5); Lymphocytes # (auto) 1.4 10 ^3/uL (0.4-5.4); Lymphocytes % (auto) 11.7 % (10.0-50.0); Monocytes % (auto) 8.6 % (0.0-12.0); Neutrophils % (auto) 78.1 % (37.0-80.0)
[2023-04-27 05:36] LABS: Basophils # (auto) 0.1 10 ^3/uL (0-0.2); Mean Corpuscular Hemoglobin 26.1 pg (28.0-32.0); Mean Corpuscular Hgb Conc. 32.1 g/dL (32.0-36.0); Mean Corpuscular Volume 81.4 fL (80.0-100.0); Neutrophils # (auto) 9.2 10 ^3/uL (1.6-8.6); Red Cell Distribution Width 16.9 % (11.8-14.3); White Blood Cell 11.8 10^3/uL (4.4-10.8)
[2023-04-27 05:49] LABS: Alanine Aminotransferase 20 U/L (7-40); Albumin 2.9 g/dL (3.2-4.8); Alkaline Phosphatase 556 U/L (46-116); Anion Gap 5 (5-15); Aspartate Aminotransferase 12 U/L (13-40); BUN/Creatinine Ratio 11.1 (10.0-20.0); Bilirubin, Total 0.4 mg/dL (0.2-1.0); Blood Urea Nitrogen 12 mg/dL (9-23); Calcium 7.6 mg/dL (8.5-10.1); Carbon Dioxide 28 mmol/L (20-30); Chloride 104 mmol/L (98-107); Glucose 157 mg/dL (74-106); Potassium 3.9 mmol/L (3.5-5.1); Sodium 137 mmol/L (136-145); Total Protein 5.1 g/dL (5.7-8.2); Triglycerides 122 mg/dL (< 150)
[2023-04-27 05:52] LABS: Phosphorus 3.5 mg/dL (2.4-5.1)
[2023-04-27] MEDS: INSULIN LANTUS (GLARGINE) 1 /0.01ml (100units/ml) SC SCH (06:39)
[2023-04-27 08:00] VITALS: BP 141/86; PULSE 104; RESP 16; TEMP 99.2; O2SAT 94
[2023-04-27] MEDS: AZITHROMYCIN 500MG/ 250ML 250 ML IV SCH (10:39)
[2023-04-27] MEDS: NYSTATIN-TRIAMCINOLONE TOPICAL CRE 15GM TOP SCH ×2 (10:39→22:00)
[2023-04-27] MEDS: PANTOPRAZOLE 40 MG/10 ML VIAL INJ IV SCH (10:39)
[2023-04-27 12:35] LABS: Rapid Influenza A Negative (Negative); Rapid Influenza B Negative (Negative)
[2023-04-27 12:36] LABS: COVID19 ANTIGEN SOFIA FIA NEGATIVE (NEGATIVE)
[2023-04-27 13:00] VITALS: BP 124/79; PULSE 104; RESP 18; TEMP 98.1; O2SAT 94
[2023-04-27 17:00] VITALS: BP 143/83; PULSE 109; RESP 17; TEMP 98.7; O2SAT 96
[2023-04-27 20:00] VITALS: BP 157/93; PULSE 99; RESP 19; TEMP 98.3; O2SAT 96
[2023-04-27] MEDS: TPN PER PHARMACY IV NR ×13 (21:11)
[2023-04-27 22:00] VITALS: BP 157/93; PULSE 99; RESP 19; TEMP 98.3; O2SAT 96
[2023-04-28] VITALS (7 sets, daily range): BP systolic 131–144; BP diastolic 76–86; PULSE 94–99; RESP 16–20; TEMP 97.5–98.3; O2SAT 94–100
[2023-04-28] MEDS: TPN PER PHARMACY IV NR ×13 (01:40)
[2023-04-28] MEDS: HYDROmorphone HCL 2 MG/ML VL/or syr IV PRN ×4 (01:45→20:33)
[2023-04-28] MEDS: InsuLIN REG 1unit/0.01ml Soln (100units/ml) SC SCH ×5 (01:59→23:50)
[2023-04-28] MEDS: SOD CHL 0.45% 1,000 ML IV SCH (05:00)
[2023-04-28] MEDS: ceFAZolin 1GM/50ML 50 ML IV SCH ×3 (05:23→22:06)
[2023-04-28] MEDS: ACCU-CHEK COMFORT CURVE STRIP VI SCH ×5 (05:24→23:31)
[2023-04-28] MEDS: INSULIN LANTUS (GLARGINE) 1 /0.01ml (100units/ml) SC SCH (06:29)
[2023-04-28 06:47] LABS: Eosinophils # (auto) 0.1 10 ^3/uL (0-0.8); Hemoglobin 8.5 g/dL (13.5-17.5); Lymphocytes # (auto) 1.7 10 ^3/uL (0.4-5.4); Lymphocytes % (auto) 17.5 % (10.0-50.0); Neutrophils # (auto) 6.8 10 ^3/uL (1.6-8.6)
[2023-04-28 06:52] LABS: Basophils # (auto) 0.1 10 ^3/uL (0-0.2); Basophils % (auto) 0.6 % (0.0-2.0); Eosinophils % (auto) 1.3 % (0.0-7.0); Hematocrit 26.7 % (41.0-53.0); Mean Corpuscular Hgb Conc. 31.9 g/dL (32.0-36.0); Mean Corpuscular Volume 81.4 fL (80.0-100.0); Monocytes # (auto) 1.1 10 ^3/uL (0-1.3); Monocytes % (auto) 10.9 % (0.0-12.0); Neutrophils % (auto) 69.7 % (37.0-80.0); Red Blood Cells 3.28 10^6/uL (4.5-5.90); White Blood Cell 9.7 10^3/uL (4.4-10.8)
[2023-04-28 07:04] LABS: Alanine Aminotransferase 15 U/L (7-40); Albumin 2.9 g/dL (3.2-4.8); Alkaline Phosphatase 594 U/L (46-116); Anion Gap 2 (5-15); Aspartate Aminotransferase 14 U/L (13-40); BUN/Creatinine Ratio 11.3 (10.0-20.0); Blood Urea Nitrogen 12 mg/dL (9-23); Calcium 7.9 mg/dL (8.7-10.4); Carbon Dioxide 28 mmol/L (20-30); Chloride 106 mmol/L (98-107); Glucose 154 mg/dL (74-106); Magnesium 1.9 mg/dL (1.6-2.6); Sodium 136 mmol/L (136-145)
[2023-04-28 07:05] LABS: Bilirubin, Total 0.3 mg/dL (0.2-1.0); Phosphorus 3.5 mg/dL (2.4-5.1); Total Protein 5.3 g/dL (5.7-8.2)
[2023-04-28] MEDS: ONDANSETRON HCL 4 MG/2 ML VIAL IV PRN ×3 (07:50→20:25)
[2023-04-28] MEDS: NYSTATIN-TRIAMCINOLONE TOPICAL CRE 15GM TOP SCH ×2 (10:32→22:07)
[2023-04-28] MEDS: PANTOPRAZOLE 40 MG/10 ML VIAL INJ IV SCH (10:32)
[2023-04-28] MEDS: AZITHROMYCIN 500MG/ 250ML 250 ML IV SCH (10:33)
[2023-04-28] MEDS ORDERED: PROPOFOL 10 MG/ML 20 ML IV ONE (13:58)
[2023-04-28] MEDS ORDERED: LIDOCAINE 2% (LOCAL ANESTH.) PF 5ml SDV ONE ×2 (13:58)
[2023-04-28] MEDS ORDERED: TPN PER PHARMACY IV NR ×12 (20:00)
[2023-04-29] MEDS: SOD CHL 0.45% 1,000 ML IV SCH ×2 (01:00→03:03)
[2023-04-29] MEDS: ONDANSETRON HCL 4 MG/2 ML VIAL IV PRN ×5 (02:52→20:29)
[2023-04-29] MEDS: HYDROmorphone HCL 2 MG/ML VL/or syr IV PRN ×5 (02:53→20:30)
[2023-04-29 05:00] VITALS: BP 128/79; PULSE 103; RESP 17; TEMP 98.9; O2SAT 95
[2023-04-29] MEDS: ACCU-CHEK COMFORT CURVE STRIP VI SCH ×3 (05:37→16:44)
[2023-04-29] MEDS: ceFAZolin 1GM/50ML 50 ML IV SCH ×3 (05:37→22:17)
[2023-04-29] MEDS: InsuLIN REG 1unit/0.01ml Soln (100units/ml) SC SCH ×3 (05:52→16:44)
[2023-04-29 06:07] LABS: Eosinophils # (auto) 0.1 10 ^3/uL (0-0.8); Hemoglobin 8.5 g/dL (13.5-17.5); Monocytes # (auto) 0.9 10 ^3/uL (0-1.3); White Blood Cell 9.6 10^3/uL (4.4-10.8)
[2023-04-29 06:12] LABS: Basophils # (auto) 0 10 ^3/uL (0-0.2); Basophils % (auto) 0.5 % (0.0-2.0); Eosinophils % (auto) 0.7 % (0.0-7.0); Hematocrit 25.8 % (41.0-53.0); Lymphocytes # (auto) 1.3 10 ^3/uL (0.4-5.4); Mean Corpuscular Hemoglobin 26.9 pg (28.0-32.0); Mean Corpuscular Hgb Conc. 32.9 g/dL (32.0-36.0); Mean Corpuscular Volume 81.5 fL (80.0-100.0); Monocytes % (auto) 9.8 % (0.0-12.0); Neutrophils # (auto) 7.2 10 ^3/uL (1.6-8.6); Red Blood Cells 3.17 10^6/uL (4.5-5.90); Red Cell Distribution Width 17.1 % (11.8-14.3)
[2023-04-29 06:28] LABS: Alanine Aminotransferase 16 U/L (7-40); Albumin 2.9 g/dL (3.2-4.8); Alkaline Phosphatase 533 U/L (46-116); Anion Gap 7 (5-15); Aspartate Aminotransferase 15 U/L (13-40); BUN/Creatinine Ratio 15.7 (10.0-20.0); Blood Urea Nitrogen 16 mg/dL (9-23); Calcium 7.8 mg/dL (8.5-10.1); Carbon Dioxide 27 mmol/L (20-30); Chloride 102 mmol/L (98-107); Glucose 177 mg/dL (74-106); Potassium 4.5 mmol/L (3.5-5.1); Sodium 136 mmol/L (136-145); Triglycerides 137 mg/dL (< 150)
[2023-04-29 06:29] LABS: Bilirubin, Total 0.4 mg/dL (0.2-1.0); Phosphorus 3.8 mg/dL (2.4-5.1); Total Protein 5.4 g/dL (5.7-8.2)
[2023-04-29] MEDS: INSULIN LANTUS (GLARGINE) 1 /0.01ml (100units/ml) SC SCH (07:32)
[2023-04-29] MEDS: PANTOPRAZOLE 40 MG/10 ML VIAL INJ IV SCH (08:38)
[2023-04-29] MEDS: NYSTATIN-TRIAMCINOLONE TOPICAL CRE 15GM TOP SCH ×2 (08:39→22:17)
[2023-04-29] MEDS: AZITHROMYCIN 500MG/ 250ML 250 ML IV SCH (08:39)
[2023-04-29 09:00] VITALS: BP 142/82; PULSE 97; RESP 14; TEMP 98.4; O2SAT 96
[2023-04-29] MEDS ORDERED: CALCIUM GLUC 1,000mg/50ml-NS 50 ML IV ONE (10:15)
[2023-04-29 13:00] VITALS: BP 129/82; PULSE 103; RESP 14; TEMP 98.1; O2SAT 96
[2023-04-29 17:00] VITALS: BP 142/86; PULSE 104; RESP 14; TEMP 98.2; O2SAT 96
[2023-04-29 19:30] VITALS: BP 157/93; PULSE 98; PULSE 99; RESP 19; TEMP 98.3; O2SAT 96
[2023-04-29] MEDS: TPN PER PHARMACY IV NR ×12 (20:38)
[2023-04-29 23:16] VITALS: BP 140/88; PULSE 100; RESP 17; TEMP 98.3; O2SAT 93
[2023-04-30] MEDS: ONDANSETRON HCL 4 MG/2 ML VIAL IV PRN ×5 (00:28→21:22)
[2023-04-30] MEDS: HYDROmorphone HCL 2 MG/ML VL/or syr IV PRN ×4 (00:29→21:21)
[2023-04-30 04:54] VITALS: BP 131/80; PULSE 115; RESP 18; TEMP 97.8; O2SAT 96
[2023-04-30 05:39] LABS: Alanine Aminotransferase 15 U/L (7-40); Albumin 3.1 g/dL (3.2-4.8); Alkaline Phosphatase 607 U/L (46-116); Anion Gap 5 (5-15); Aspartate Aminotransferase 15 U/L (13-40); BUN/Creatinine Ratio 21.8 (10.0-20.0); Bilirubin, Total 0.3 mg/dL (0.2-1.0); Blood Urea Nitrogen 22 mg/dL (9-23); Calcium 8.3 mg/dL (8.7-10.4); Carbon Dioxide 28 mmol/L (20-30); Chloride 102 mmol/L (98-107); Glucose 146 mg/dL (74-106); Magnesium 2.1 mg/dL (1.6-2.6); Phosphorus 4.3 mg/dL (2.4-5.1); Potassium 4.4 mmol/L (3.5-5.1); Sodium 135 mmol/L (136-145)
[2023-04-30 05:40] LABS: Total Protein 5.7 g/dL (5.7-8.2)
[2023-04-30] MEDS: ceFAZolin 1GM/50ML 50 ML IV SCH ×2 (05:56→14:09)
[2023-04-30] MEDS: ACCU-CHEK COMFORT CURVE STRIP VI SCH ×4 (06:14→17:32)
[2023-04-30] MEDS: INSULIN LANTUS (GLARGINE) 1 /0.01ml (100units/ml) SC SCH (06:16)
[2023-04-30] MEDS: InsuLIN REG 1unit/0.01ml Soln (100units/ml) SC SCH ×4 (06:16→17:33)
[2023-04-30 09:00] VITALS: BP 146/84; PULSE 100; RESP 14; TEMP 97.5; O2SAT 95
[2023-04-30] MEDS: PANTOPRAZOLE 40 MG/10 ML VIAL INJ IV SCH ×2 (09:01→21:22)
[2023-04-30] MEDS: NYSTATIN-TRIAMCINOLONE TOPICAL CRE 15GM TOP SCH ×2 (09:02→21:28)
[2023-04-30] MEDS: AZITHROMYCIN 500MG/ 250ML 250 ML IV SCH (09:02)
[2023-04-30] MEDS: METOCLOPRAMIDE HCL 5MG/ml INJ 2ml VIAL IV SCH ×3 (09:02→21:22)
[2023-04-30] MEDS: SUCRALFATE 1 GM TAB PO SCH ×4 (11:30→21:20)
[2023-04-30] MEDS ORDERED: HYDROmorphone HCL 2 MG/ML VL/or syr IV PRN (12:30)
[2023-04-30 13:00] VITALS: BP 118/75; PULSE 55; RESP 16; TEMP 97.8; O2SAT 95
[2023-04-30] MEDS: SOD CHL 0.45% 1,000 ML IV SCH (16:18)
[2023-04-30 16:28] VITALS: BP 141/77; PULSE 103; RESP 16; TEMP 98.2; O2SAT 95
[2023-04-30] MEDS ORDERED: TPN PER PHARMACY IV NR ×11 (20:00)
[2023-04-30] MEDS: TPN PER PHARMACY IV NR ×12 (20:19)
[2023-04-30 22:00] VITALS: BP 130/78; PULSE 103; RESP 16; TEMP 98.2; O2SAT 94
[2023-05-01] VITALS (7 sets, daily range): BP systolic 112–136; BP diastolic 64–83; PULSE 101–107; RESP 16–18; TEMP 98.2–99.4; O2SAT 92–96
[2023-05-01] MEDS: ACCU-CHEK COMFORT CURVE STRIP VI SCH ×5 (00:16→22:56)
[2023-05-01] MEDS: InsuLIN REG 1unit/0.01ml Soln (100units/ml) SC SCH ×5 (00:17→23:00)
[2023-05-01] MEDS: ONDANSETRON HCL 4 MG/2 ML VIAL IV PRN ×3 (04:56→18:43)
[2023-05-01] MEDS: HYDROmorphone HCL 2 MG/ML VL/or syr IV PRN ×3 (05:00→18:43)
[2023-05-01 06:08] LABS: Basophils # (auto) 0.1 10 ^3/uL (0-0.2); Eosinophils # (auto) 0.1 10 ^3/uL (0-0.8); Hematocrit 27.2 % (41.0-53.0); Hemoglobin 8.8 g/dL (13.5-17.5); Lymphocytes # (auto) 1.7 10 ^3/uL (0.4-5.4); Neutrophils # (auto) 7.6 10 ^3/uL (1.6-8.6)
[2023-05-01 06:09] LABS: Basophils % (auto) 0.8 % (0.0-2.0); Eosinophils % (auto) 0.9 % (0.0-7.0); Lymphocytes % (auto) 16.4 % (10.0-50.0); Mean Corpuscular Hemoglobin 26.4 pg (28.0-32.0); Mean Corpuscular Hgb Conc. 32.4 g/dL (32.0-36.0); Mean Corpuscular Volume 81.4 fL (80.0-100.0); Monocytes % (auto) 9.4 % (0.0-12.0); Neutrophils % (auto) 72.5 % (37.0-80.0); Red Blood Cells 3.35 10^6/uL (4.5-5.90); Red Cell Distribution Width 17.1 % (11.8-14.3); White Blood Cell 10.5 10^3/uL (4.4-10.8)
[2023-05-01] MEDS: METOCLOPRAMIDE HCL 5MG/ml INJ 2ml VIAL IV SCH ×3 (06:13→22:20)
[2023-05-01] MEDS: SUCRALFATE 1 GM TAB PO SCH ×5 (06:14→22:20)
[2023-05-01] MEDS: INSULIN LANTUS (GLARGINE) 1 /0.01ml (100units/ml) SC SCH (06:15)
[2023-05-01 06:22] LABS: Alanine Aminotransferase 12 U/L (7-40); Albumin 3.1 g/dL (3.2-4.8); Alkaline Phosphatase 472 U/L (46-116); Anion Gap 5 (5-15); Aspartate Aminotransferase 13 U/L (13-40); BUN/Creatinine Ratio 23.1 (10.0-20.0); Blood Urea Nitrogen 25 mg/dL (9-23); Calcium 8.2 mg/dL (8.5-10.1); Carbon Dioxide 29 mmol/L (20-30); Chloride 102 mmol/L (98-107); Glucose 84 mg/dL (74-106); Potassium 4.8 mmol/L (3.5-5.1); Sodium 136 mmol/L (136-145)
[2023-05-01 06:23] LABS: Bilirubin, Total 0.4 mg/dL (0.2-1.0); Phosphorus 3.5 mg/dL (2.4-5.1); Total Protein 5.7 g/dL (5.7-8.2)
[2023-05-01] MEDS: ENOXAPARIN SOD 40 MG/0.4 ML SYRINGE SC SCH (10:20)
[2023-05-01] MEDS: PANTOPRAZOLE 40 MG/10 ML VIAL INJ IV SCH ×2 (10:20→22:20)
[2023-05-01] MEDS: NYSTATIN-TRIAMCINOLONE TOPICAL CRE 15GM TOP SCH ×2 (10:21→22:00)
[2023-05-01 12:30] LABS: Magnesium 2.2 mg/dL (1.6-2.6)
[2023-05-01] MEDS ORDERED: SUCR1TAB PO (15:19)
[2023-05-01] MEDS ORDERED: PANT40T PO (15:19)
[2023-05-01] MEDS ORDERED: METO-281 PO (15:19)
[2023-05-01] MEDS: SOD CHL 0.45% 1,000 ML IV SCH (18:52)
[2023-05-01] MEDS ORDERED: TPN PER PHARMACY IV NR ×13 (20:00)
[2023-05-02] MEDS: ONDANSETRON HCL 4 MG/2 ML VIAL IV PRN ×2 (00:46→06:48)
[2023-05-02] MEDS: HYDROmorphone HCL 2 MG/ML VL/or syr IV PRN ×3 (00:47→12:39)
[2023-05-02 05:00] VITALS: BP 123/77; PULSE 104; RESP 16; TEMP 98.5; O2SAT 97
[2023-05-02] MEDS: METOCLOPRAMIDE HCL 5MG/ml INJ 2ml VIAL IV SCH ×2 (05:26→15:06)
[2023-05-02] MEDS: ACCU-CHEK COMFORT CURVE STRIP VI SCH (05:30)
[2023-05-02] MEDS: InsuLIN REG 1unit/0.01ml Soln (100units/ml) SC SCH (05:30)
[2023-05-02 05:57] LABS: Basophils # (auto) 0.1 10 ^3/uL (0-0.2); Eosinophils # (auto) 0.1 10 ^3/uL (0-0.8); Lymphocytes # (auto) 2.1 10 ^3/uL (0.4-5.4); Monocytes # (auto) 0.8 10 ^3/uL (0-1.3)
[2023-05-02 06:00] LABS: Basophils % (auto) 0.8 % (0.0-2.0); Eosinophils % (auto) 0.9 % (0.0-7.0); Hematocrit 24.8 % (41.0-53.0); Hemoglobin 8.3 g/dL (13.5-17.5); Mean Corpuscular Hemoglobin 27.1 pg (28.0-32.0); Mean Corpuscular Hgb Conc. 33.3 g/dL (32.0-36.0); Mean Corpuscular Volume 81.4 fL (80.0-100.0); Monocytes % (auto) 9.1 % (0.0-12.0); Neutrophils # (auto) 5.7 10 ^3/uL (1.6-8.6); Neutrophils % (auto) 65.2 % (37.0-80.0); Nucleated Red Blood Cells % 0.1 %; Red Blood Cells 3.04 10^6/uL (4.5-5.90); Red Cell Distribution Width 16.9 % (11.8-14.3); White Blood Cell 8.8 10^3/uL (4.4-10.8)
[2023-05-02 06:16] LABS: Alanine Aminotransferase 12 U/L (7-40); Alkaline Phosphatase 492 U/L (46-116); BUN/Creatinine Ratio 18.6 (10.0-20.0); Blood Urea Nitrogen 22 mg/dL (9-23); Calcium 8.1 mg/dL (8.7-10.4); Chloride 105 mmol/L (98-107); Glucose 84 mg/dL (74-106); Potassium 4.8 mmol/L (3.5-5.1); Sodium 136 mmol/L (136-145)
[2023-05-02 06:18] LABS: Aspartate Aminotransferase 13 U/L (13-40); Bilirubin, Total 0.3 mg/dL (0.2-1.0); Total Protein 5.5 g/dL (5.7-8.2)
[2023-05-02] MEDS: SUCRALFATE 1 GM TAB PO SCH ×2 (06:33→11:30)
[2023-05-02] MEDS: INSULIN LANTUS (GLARGINE) 1 /0.01ml (100units/ml) SC SCH (06:33)
[2023-05-02 07:02] LABS: Anion Gap 6 (5-15); Carbon Dioxide 25 mmol/L (20-30)
[2023-05-02 09:00] VITALS: BP 132/83; PULSE 96; RESP 18; TEMP 98.1; O2SAT 93
[2023-05-02] MEDS: SOD CHL 0.45% 1,000 ML IV SCH (09:00)
[2023-05-02 09:06] LABS: Anti-Centromere B Antibody <0.2 AI (0.0-0.9); Anti-Jo-1 Antibody <0.2 AI (0.0-0.9); Anti-dsDNA Antibody 5 IU/mL (0-9); Antichromatin Antibody <0.2 AI (0.0-0.9); Antiscleroderma-70 Antibody <0.2 AI (0.0-0.9); RNP Antibody 0.2 AI (0.0-0.9); Sjogren's Anti-SS-A Antibody <0.2 AI (0.0-0.9); Sjogren's Anti-SS-B Antibody 0.3 AI (0.0-0.9); Smith Antibody <0.2 AI (0.0-0.9)
[2023-05-02] MEDS: NYSTATIN-TRIAMCINOLONE TOPICAL CRE 15GM TOP SCH (09:12)
[2023-05-02] MEDS: ENOXAPARIN SOD 40 MG/0.4 ML SYRINGE SC SCH (10:00)
[2023-05-02 12:30] VITALS: BP 127/75; PULSE 97; RESP 18; TEMP 98.6; O2SAT 100
[2023-05-02] MEDS: PANTOPRAZOLE 40 MG/10 ML VIAL INJ IV SCH (12:39)
[2023-05-02 13:05] VITALS: BP 128/74; PULSE 102
[2023-05-02 13:09] VITALS: BP 128/74; PULSE 102; RESP 18
== END 2023-05-02 15:35 | disposition home health service (06) | DRG 720 ==
LOC: ER 22:11 → EDBD 22:11 → OVERFLOW 04-19 05:13 → EAST 04-19 17:50
PROVIDERS: ADMIT Internal Medicine; ATTEND Student in an Organized Health Care Education/Training Program
PROC: 3E0336Z Introduction of Nutritional Substance into Peripheral Vein, Percutaneous Approach (ICD-10-PCS; 2023-04-19)
PROC: 0DB68ZX Excision of Stomach, Via Natural or Artificial Opening Endoscopic, Diagnostic (ICD-10-PCS; 2023-04-28)
PROC: 0DB38ZX Excision of Lower Esophagus, Via Natural or Artificial Opening Endoscopic, Diagnostic (ICD-10-PCS; 2023-04-28)
PROC: 0DB98ZX Excision of Duodenum, Via Natural or Artificial Opening Endoscopic, Diagnostic (ICD-10-PCS; principal; 2023-04-28 14:04)
DX: A41.9 Sepsis, unspecified organism (principal); N17.0 Acute kidney failure with tubular necrosis; R64 Cachexia; E44.1 Mild protein-calorie malnutrition; N13.30 Unspecified hydronephrosis; K22.10 Ulcer of esophagus without bleeding; J90 Pleural effusion, not elsewhere classified; E10.42 Type 1 diabetes mellitus with diabetic polyneuropathy; R18.8 Other ascites; D64.9 Anemia, unspecified; Z20.822 Contact with and (suspected) exposure to COVID-19; L03.115 Cellulitis of right lower limb; L03.116 Cellulitis of left lower limb; R62.7 Adult failure to thrive; E87.6 Hypokalemia; F12.929 Cannabis use, unspecified with intoxication, unspecified; R74.01 Elevation of levels of liver transaminase levels; R16.0 Hepatomegaly, not elsewhere classified; K76.0 Fatty (change of) liver, not elsewhere classified; I10 Essential (primary) hypertension; K44.9 Diaphragmatic hernia without obstruction or gangrene; K59.00 Constipation, unspecified; E10.65 Type 1 diabetes mellitus with hyperglycemia; Z53.20 Procedure and treatment not carried out because of patient's decision for unspecified reasons; R31.29 Other microscopic hematuria; Z83.3 Family history of diabetes mellitus; Z82.0 Family history of epilepsy and other diseases of the nervous system; Z79.4 Long term (current) use of insulin; Z68.1 Body mass index [BMI] 19.9 or less, adult
CPT/HCPCS: 36415; 71045; 74176; 74181; 74183; 76705; 76775; 80048; 80053; 80061; 80307; 81001; 82270; 82607; 82728; 82746; 82962; 83036; 83516; 83605; 83615; 83690; 83735; 84100; 84443; 84478; 85007; 85025; 85027; 85048; 85610; 85652; 86225; 86235; 87040; 87077; 87081; 87186; 87426; 87804; 93005; C9113; G0378; J0690; J1815; J2001; J2405; J2543; J2704; J3480; J3490; J7131

== ENCOUNTER 2023-06-29 13:57 | Inpatient (IN) | payer MEDICAID ==
[~2023-06-29] VITALS: Ht 177.8 cm; Wt 52.0 kg
[~2023-06-29 13:57] MED LIST changes: -LEVO500T91 PO; +METO-281 PO; +SUCR1TAB PO; -ZOFR4T PO
[2023-06-29] MEDS ORDERED: SODIUM CHLORIDE 0.9% 1,000 ML IV ONE ×3 (14:15→16:45)
[2023-06-29 14:53] LABS: Basophils # (auto) 0 10 ^3/uL (0-0.2); Basophils % (auto) 0.2 % (0.0-2.0); Eosinophils # (auto) 0 10 ^3/uL (0-0.8)
[2023-06-29 14:56] LABS: Eosinophils % (auto) 0.1 % (0.0-7.0); Hematocrit 41.6 % (41.0-53.0); Hemoglobin 12.5 g/dL (13.5-17.5); Lymphocytes # (auto) 0.4 10 ^3/uL (0.4-5.4); Mean Corpuscular Hemoglobin 24.9 pg (28.0-32.0); Mean Corpuscular Hgb Conc. 30.1 g/dL (32.0-36.0); Mean Corpuscular Volume 82.6 fL (80.0-100.0); Monocytes # (auto) 0.7 10 ^3/uL (0-1.3); Monocytes % (auto) 7.9 % (0.0-12.0); Neutrophils # (auto) 7.4 10 ^3/uL (1.6-8.6); Neutrophils % (auto) 86.8 % (37.0-80.0); Red Blood Cells 5.03 10^6/uL (4.5-5.90); Red Cell Distribution Width 17.6 % (11.8-14.3); White Blood Cell 8.5 10^3/uL (4.4-10.8)
[2023-06-29 15:00] VITALS: PULSE 117; RESP 11; O2SAT 99
[2023-06-29 15:12] LABS: Alanine Aminotransferase 17 U/L (7-40); Albumin 4.2 g/dL (3.2-4.8); Alkaline Phosphatase 190 U/L (46-116); Anion Gap 16 (5-15); Aspartate Aminotransferase 11 U/L (13-40); BUN/Creatinine Ratio 36.7 (10.0-20.0); Bilirubin, Total 0.4 mg/dL (0.2-1.0); Blood Alcohol 4.9 mg/dL (<10); Blood Urea Nitrogen 76 mg/dL (9-23); Calcium 9.5 mg/dL (8.7-10.4); Carbon Dioxide 33 mmol/L (20-30); Chloride 87 mmol/L (98-107); Lipase 26 U/L (12-53); Magnesium 3.5 mg/dL (1.6-2.6); Potassium 5.3 mmol/L (3.5-5.1); Sodium 136 mmol/L (136-145); Total Protein 7.1 g/dL (5.7-8.2)
[2023-06-29 15:15] LABS: INR 0.96 (0.9-1.15); Prothrombin Time 10.1 sec (9.3-11.8)
[2023-06-29 15:19] LABS: Urine WBC None Seen /hpf (0 - 3)
[2023-06-29 15:26] LABS: Glucose 1091 mg/dL (74-106)
[2023-06-29] MEDS ORDERED: LORazepam 2MG/ML-1ML VIAL IV ONE ×2 (15:30→18:00)
[2023-06-29 15:35] LABS: Urine Bacteria NONE SEEN /hpf (None Seen); Urine Blood Negative /uL (Negative); Urine Clarity Clear (Clear); Urine Color Colorless (Yellow); Urine Protein, UAD 2+ (Negative); Urine Specific Gravity 1.025 (1.001-1.035); Urine Urobilinogen Normal (Negative)
[2023-06-29 15:38] LABS: Creatine Kinase IFCC 63 U/L (46-171)
[2023-06-29 15:40] LABS: Acetaminophen < 2.0 UG/ML (10.0-20.0)
[2023-06-29 15:44] LABS: Salicylate < 3.0 mg/dL (2.8-20.0)
[2023-06-29] MEDS ORDERED: InsuLIN REG 1unit/0.01ml Soln (100units/ml) IV ONE (15:45)
[2023-06-29 15:52] LABS: Amphetamine Screen, Urine Neg (NEGATIVE); Barbiturate Scree,Urine Neg (NEGATIVE); Benzodiazephine Screen, Urine Neg (NEGATIVE); Cannabinoid Screen, Urine Pos (NEGATIVE); Cocaine Screen, Urine Neg (NEGATIVE); Opiate Scree,Urine Neg (NEGATIVE); Phencyclidine Screen, Urine Neg (NEGATIVE)
[2023-06-29 16:02] LABS: Base Excess 6.6 mmol/L (-2.0-2.0)
[2023-06-29] MEDS ORDERED: DEXTROSE (50%) 50ML SYRG IV PRN ×2 (16:45→21:30)
[2023-06-29] MEDS ORDERED: INSULIN LANTUS (GLARGINE) 1 /0.01ml (100units/ml) SC ONE (16:45)
[2023-06-29] MEDS ORDERED: INSULIN DRIP 100 UNIT/100ML 100 ML IV SCH ×2 (16:45→21:30)
[2023-06-29] MEDS: SODIUM CHLORIDE 0.9% 1,000 ML IV SCH ×2 (16:45→20:00)
[2023-06-29 17:00] LABS: Base Excess 6.3 mmol/L (-2.0-2.0)
[2023-06-29] MEDS ORDERED: MORPHINE SULFATE INJ 2 MG/ml SYRG IV PRN (17:45)
[2023-06-29] MEDS ORDERED: NITROGLYCERIN 0.4 MG SL TAB SL PRN (17:45)
[2023-06-29] MEDS ORDERED: LORazepam 2MG/ML-1ML VIAL ONE (17:49)
[2023-06-29] MEDS: ACCU-CHEK COMFORT CURVE STRIP VI SCH ×5 (18:16→22:30)
[2023-06-29 18:20] LABS: Chloride 101 mmol/L (98-107); Potassium 3.6 mmol/L (3.5-5.1); Sodium 144 mmol/L (136-145)
[2023-06-29 18:21] LABS: Anion Gap 13 (5-15); Calcium 8.5 mg/dL (8.7-10.4); Carbon Dioxide 30 mmol/L (20-30)
[2023-06-29 18:26] LABS: BUN/Creatinine Ratio 22.9 (10.0-20.0)
[2023-06-29 18:27] LABS: Magnesium 3.5 mg/dL (1.6-2.6)
[2023-06-29 18:42] LABS: Blood Urea Nitrogen 41 mg/dL (9-23)
[2023-06-29 18:43] LABS: Glucose 785 mg/dL (74-106)
[2023-06-29 18:53] LABS: Basophils # (auto) 0 10 ^3/uL (0-0.2); Eosinophils # (auto) 0 10 ^3/uL (0-0.8); Hemoglobin 11.6 g/dL (13.5-17.5); White Blood Cell 10.8 10^3/uL (4.4-10.8)
[2023-06-29 18:55] LABS: Basophils % (auto) 0.4 % (0.0-2.0); Hematocrit 38.3 % (41.0-53.0); Lymphocytes # (auto) 0.7 10 ^3/uL (0.4-5.4); Lymphocytes % (auto) 6.9 % (10.0-50.0); Mean Corpuscular Hemoglobin 24.5 pg (28.0-32.0); Mean Corpuscular Hgb Conc. 30.4 g/dL (32.0-36.0); Mean Corpuscular Volume 80.5 fL (80.0-100.0); Monocytes % (auto) 9.2 % (0.0-12.0); Neutrophils % (auto) 83.5 % (37.0-80.0); Nucleated Red Blood Cells % 0.2 %; Red Blood Cells 4.75 10^6/uL (4.5-5.90); Red Cell Distribution Width 16.8 % (11.8-14.3)
[2023-06-29 20:00] VITALS: PULSE 103; RESP 9; O2SAT 100
[2023-06-29] MEDS ORDERED: SODIUM CHLORIDE 0.9% 1,000 ML IV SCH ×2 (20:45→22:45)
[2023-06-29] MEDS ORDERED: D5W/SOD CHL 0.45% 1,000 ML IV SCH (21:30)
[2023-06-29] MEDS ORDERED: DEXTROSE (50%) 50ML SYRG IV ONE (22:30)
[2023-06-29 23:38] LABS: Anion Gap 5 (5-15); Carbon Dioxide 36 mmol/L (20-30)
[2023-06-29 23:39] LABS: Calcium 8.4 mg/dL (8.7-10.4)
[2023-06-29 23:43] LABS: BUN/Creatinine Ratio 30.2 (10.0-20.0); Blood Urea Nitrogen 39 mg/dL (9-23)
[2023-06-29 23:47] LABS: Chloride 114 mmol/L (98-107); Glucose 199 mg/dL (74-106); Sodium 155 mmol/L (136-145)
[2023-06-30] MEDS ORDERED: POTASSIUM EFFERVESENT TAB 25 MEQ PO ONE
[2023-06-30] MEDS ORDERED: D5W/SOD CHL 0.45% 1,000 ML IV SCH
[2023-06-30] MEDS: ACCU-CHEK COMFORT CURVE STRIP VI SCH ×6 (00:23→20:00)
[2023-06-30] MEDS: InsuLIN REG 1unit/0.01ml Soln (100units/ml) SC SCH ×6 (00:44→20:00)
[2023-06-30] MEDS: POTASSIUM CHL 20MEQ/100ML 100 ML IV SCH ×2 (01:59→03:49)
[2023-06-30] MEDS ORDERED: LORazepam 2MG/ML-1ML VIAL IV ONE (03:00)
[2023-06-30] MEDS ORDERED: LORazepam 2MG/ML-1ML VIAL ONE (03:06)
[2023-06-30] MEDS ORDERED: D5W/SOD CHL 0.45% 1,000 ML IV ONE (04:00)
[2023-06-30] MEDS ORDERED: KETOROLAC TROMETH 30 MG/ML 1ML VIAL IV ONE (04:15)
[2023-06-30 04:34] LABS: Basophils # (auto) 0 10 ^3/uL (0-0.2); Basophils % (auto) 0.3 % (0.0-2.0); Lymphocytes # (auto) 1.6 10 ^3/uL (0.4-5.4); Mean Corpuscular Hgb Conc. 31.3 g/dL (32.0-36.0); Monocytes # (auto) 0.9 10 ^3/uL (0-1.3); Neutrophils # (auto) 9.9 10 ^3/uL (1.6-8.6)
[2023-06-30 04:35] LABS: Eosinophils # (auto) 0.1 10 ^3/uL (0-0.8); Eosinophils % (auto) 0.4 % (0.0-7.0); Hematocrit 35.1 % (41.0-53.0); Lymphocytes % (auto) 12.8 % (10.0-50.0); Mean Corpuscular Hemoglobin 24.6 pg (28.0-32.0); Mean Corpuscular Volume 78.8 fL (80.0-100.0); Monocytes % (auto) 6.9 % (0.0-12.0); Neutrophils % (auto) 79.6 % (37.0-80.0); Nucleated Red Blood Cells % 0.1 %; Red Blood Cells 4.46 10^6/uL (4.5-5.90); Red Cell Distribution Width 16.5 % (11.8-14.3); White Blood Cell 12.4 10^3/uL (4.4-10.8)
[2023-06-30 04:58] LABS: Alanine Aminotransferase 13 U/L (7-40); Albumin 3.6 g/dL (3.2-4.8); Alkaline Phosphatase 140 U/L (46-116); Anion Gap 8 (5-15); Aspartate Aminotransferase 15 U/L (13-40); BUN/Creatinine Ratio 33.8 (10.0-20.0); Bilirubin, Total 0.3 mg/dL (0.2-1.0); Blood Urea Nitrogen 45 mg/dL (9-23); Calcium 9.2 mg/dL (8.5-10.1); Carbon Dioxide 35 mmol/L (20-30); Chloride 116 mmol/L (98-107); Glucose 94 mg/dL (74-106); Potassium 3.7 mmol/L (3.5-5.1); Sodium 159 mmol/L (136-145); Total Protein 6.1 g/dL (5.7-8.2)
[2023-06-30 07:20] VITALS: PULSE 108; RESP 14; O2SAT 99
[2023-06-30] MEDS ORDERED: INSULIN LANTUS (GLARGINE) 1 /0.01ml (100units/ml) SC SCH (10:00)
[2023-06-30] MEDS ORDERED: PANTOPRAZOLE 40 MG/10 ML VIAL INJ IV SCH (10:00)
[2023-06-30 11:50] LABS: Calcium 8.7 mg/dL (8.5-10.1); Chloride 116 mmol/L (98-107); Potassium 3.4 mmol/L (3.5-5.1); Sodium 156 mmol/L (136-145)
[2023-06-30 11:51] LABS: Anion Gap 7 (5-15); Carbon Dioxide 33 mmol/L (20-30)
[2023-06-30 11:56] LABS: Glucose 166 mg/dL (74-106)
[2023-06-30 11:57] LABS: BUN/Creatinine Ratio 30.2 (10.0-20.0); Blood Urea Nitrogen 38 mg/dL (9-23)
[2023-06-30] MEDS ORDERED: TPN PER PHARMACY 0 ML IV SCH (12:00)
[2023-06-30] MEDS: ONDANSETRON HCL 4 MG/2 ML VIAL IV PRN ×2 (12:21→18:34)
[2023-06-30] MEDS: MORPHINE SULFATE INJ 2 MG/ml SYRG IV PRN ×2 (12:23→18:36)
[2023-06-30 13:59] LABS: Phosphorus 4.5 mg/dL (2.4-5.1)
[2023-06-30 14:29] LABS: Magnesium 2.9 mg/dL (1.6-2.6)
[2023-06-30] MEDS ORDERED: ACETAMINOPHEN 325 MG TAB PO PRN (17:30)
[2023-06-30 20:00] VITALS: PULSE 80; RESP 10; O2SAT 97
[2023-06-30] MEDS ORDERED: AMINO ACID INFUSION IN D10W 1,000 ML IV NR (20:00)
[2023-06-30] MEDS: PANTOPRAZOLE 40 MG/10 ML VIAL INJ IV SCH (22:44)
[2023-07-01] MEDS ORDERED: DEXTROSE (50%) 50ML SYRG IV SCH
[2023-07-01] MEDS: InsuLIN REG 1unit/0.01ml Soln (100units/ml) SC SCH ×4 (00:42→18:06)
[2023-07-01] MEDS: MORPHINE SULFATE INJ 2 MG/ml SYRG IV PRN ×2 (02:31→11:04)
[2023-07-01] MEDS: ONDANSETRON HCL 4 MG/2 ML VIAL IV PRN ×3 (02:32→16:20)
[2023-07-01 05:01] LABS: Basophils # (auto) 0 10 ^3/uL (0-0.2); Eosinophils # (auto) 0.5 10 ^3/uL (0-0.8); Eosinophils % (auto) 7.4 % (0.0-7.0); Hemoglobin 10.1 g/dL (13.5-17.5); Monocytes # (auto) 0.4 10 ^3/uL (0-1.3); Neutrophils # (auto) 3.8 10 ^3/uL (1.6-8.6); White Blood Cell 6.7 10^3/uL (4.4-10.8)
[2023-07-01 05:03] LABS: Basophils % (auto) 0.6 % (0.0-2.0); Hematocrit 32.3 % (41.0-53.0); Lymphocytes # (auto) 1.9 10 ^3/uL (0.4-5.4); Lymphocytes % (auto) 29.1 % (10.0-50.0); Mean Corpuscular Hemoglobin 24.8 pg (28.0-32.0); Mean Corpuscular Hgb Conc. 31.2 g/dL (32.0-36.0); Mean Corpuscular Volume 79.5 fL (80.0-100.0); Monocytes % (auto) 5.4 % (0.0-12.0); Neutrophils % (auto) 57.5 % (37.0-80.0); Red Blood Cells 4.06 10^6/uL (4.5-5.90); Red Cell Distribution Width 17.1 % (11.8-14.3)
[2023-07-01 05:23] LABS: Alanine Aminotransferase 18 U/L (7-40); Albumin 3.1 g/dL (3.2-4.8); Alkaline Phosphatase 119 U/L (46-116); Anion Gap 7 (5-15); Aspartate Aminotransferase 26 U/L (13-40); Blood Urea Nitrogen 22 mg/dL (9-23); CRP High Sensitivity 0.44 mg/dL (<1.0); Calcium 8.5 mg/dL (8.5-10.1); Carbon Dioxide 28 mmol/L (20-30); Chloride 109 mmol/L (98-107); Glucose 209 mg/dL (74-106); Potassium 3.1 mmol/L (3.5-5.1); Sodium 144 mmol/L (136-145); Triglycerides 260 mg/dL (< 150)
[2023-07-01 05:24] LABS: Bilirubin, Total 0.3 mg/dL (0.2-1.0); Phosphorus 2.4 mg/dL (2.4-5.1); Total Protein 5.4 g/dL (5.7-8.2)
[2023-07-01 05:37] LABS: Lipase 23 U/L (12-53)
[2023-07-01] MEDS: ACCU-CHEK COMFORT CURVE STRIP VI SCH ×4 (06:29→18:04)
[2023-07-01 08:00] VITALS: PULSE 91; RESP 12; O2SAT 96
[2023-07-01] MEDS: POTASSIUM CHL 20MEQ/100ML 100 ML IV SCH ×2 (09:48→12:10)
[2023-07-01] MEDS: PANTOPRAZOLE 40 MG/10 ML VIAL INJ IV SCH ×2 (10:55→22:10)
[2023-07-01 15:28] VITALS: RESP 18
[2023-07-01 17:00] VITALS: BP 143/84; PULSE 67; RESP 16; TEMP 97.8; O2SAT 98
[2023-07-01 20:00] VITALS: PULSE 94
[2023-07-01] MEDS ORDERED: TPN PER PHARMACY IV NR ×10 (20:00)
[2023-07-01 22:00] VITALS: BP 111/67; PULSE 93; RESP 16; TEMP 97.7; O2SAT 96
[2023-07-02] VITALS (7 sets, daily range): BP systolic 112–138; BP diastolic 59–85; PULSE 99–103; RESP 16; TEMP 97.6–98.5; O2SAT 97–100
[2023-07-02] MEDS: ACCU-CHEK COMFORT CURVE STRIP VI SCH ×4 (00:06→17:46)
[2023-07-02] MEDS: MORPHINE SULFATE INJ 2 MG/ml SYRG IV PRN ×4 (00:29→22:39)
[2023-07-02] MEDS: InsuLIN REG 1unit/0.01ml Soln (100units/ml) SC SCH ×4 (06:22→17:45)
[2023-07-02 06:23] LABS: Alanine Aminotransferase 17 U/L (7-40); Albumin 2.9 g/dL (3.2-4.8); Alkaline Phosphatase 117 U/L (46-116); Anion Gap 5 (5-15); Aspartate Aminotransferase 19 U/L (13-40); BUN/Creatinine Ratio 13.6 (10.0-20.0); Basophils # (auto) 0 10 ^3/uL (0-0.2); Blood Urea Nitrogen 11 mg/dL (9-23); Carbon Dioxide 23 mmol/L (20-30); Chloride 110 mmol/L (98-107); Glucose 245 mg/dL (74-106); Hemoglobin 10.1 g/dL (13.5-17.5); Monocytes # (auto) 0.3 10 ^3/uL (0-1.3); Neutrophils % (auto) 42.2 % (37.0-80.0); Potassium 3.8 mmol/L (3.5-5.1); Sodium 138 mmol/L (136-145); White Blood Cell 4.7 10^3/uL (4.4-10.8)
[2023-07-02 06:24] LABS: Bilirubin, Total 0.3 mg/dL (0.2-1.0); Phosphorus 2.5 mg/dL (2.4-5.1); Total Protein 5.1 g/dL (5.7-8.2)
[2023-07-02 06:25] LABS: Basophils % (auto) 0.4 % (0.0-2.0); Eosinophils # (auto) 0.2 10 ^3/uL (0-0.8); Eosinophils % (auto) 4.9 % (0.0-7.0); Hematocrit 32.5 % (41.0-53.0); Lymphocytes # (auto) 2.2 10 ^3/uL (0.4-5.4); Lymphocytes % (auto) 46.5 % (10.0-50.0); Mean Corpuscular Hemoglobin 24.5 pg (28.0-32.0); Mean Corpuscular Volume 79.2 fL (80.0-100.0); Nucleated Red Blood Cells % 0.2 %; Red Blood Cells 4.11 10^6/uL (4.5-5.90); Red Cell Distribution Width 16.8 % (11.8-14.3)
[2023-07-02] MEDS: PANTOPRAZOLE 40 MG/10 ML VIAL INJ IV SCH (08:08)
[2023-07-02] MEDS: ONDANSETRON HCL 4 MG/2 ML VIAL IV PRN ×3 (08:14→22:39)
[2023-07-02] MEDS ORDERED: TPN PER PHARMACY IV NR ×11 (20:00)
[2023-07-02] MEDS: FAMOTIDINE 20 MG TAB PO SCH (22:33)
[2023-07-03] MEDS: ACCU-CHEK COMFORT CURVE STRIP VI SCH ×5 (00:16→17:39)
[2023-07-03 05:03] VITALS: BP 116/61; PULSE 94; RESP 18; TEMP 97.5; O2SAT 98
[2023-07-03] MEDS: InsuLIN REG 1unit/0.01ml Soln (100units/ml) SC SCH ×5 (05:55→17:54)
[2023-07-03 07:01] LABS: Basophils # (auto) 0 10 ^3/uL (0-0.2); Eosinophils # (auto) 0.2 10 ^3/uL (0-0.8); Eosinophils % (auto) 5.4 % (0.0-7.0); Lymphocytes # (auto) 1.3 10 ^3/uL (0.4-5.4); Monocytes # (auto) 0.2 10 ^3/uL (0-1.3); White Blood Cell 3.8 10^3/uL (4.4-10.8)
[2023-07-03 07:05] LABS: Basophils % (auto) 0.4 % (0.0-2.0); Hematocrit 33.8 % (41.0-53.0); Hemoglobin 10.7 g/dL (13.5-17.5); Lymphocytes % (auto) 34.9 % (10.0-50.0); Mean Corpuscular Hemoglobin 25.5 pg (28.0-32.0); Mean Corpuscular Hgb Conc. 31.6 g/dL (32.0-36.0); Mean Corpuscular Volume 80.7 fL (80.0-100.0); Monocytes % (auto) 5.6 % (0.0-12.0); Neutrophils % (auto) 53.7 % (37.0-80.0); Nucleated Red Blood Cells % 0.1 %; Red Blood Cells 4.18 10^6/uL (4.5-5.90); Red Cell Distribution Width 16.8 % (11.8-14.3)
[2023-07-03 07:07] LABS: Alanine Aminotransferase 26 U/L (7-40); Alkaline Phosphatase 154 U/L (46-116); Anion Gap 5 (5-15); Aspartate Aminotransferase 21 U/L (13-40); BUN/Creatinine Ratio 11.3 (10.0-20.0); Blood Urea Nitrogen 9 mg/dL (9-23); Calcium 8.3 mg/dL (8.5-10.1); Carbon Dioxide 24 mmol/L (20-30); Chloride 108 mmol/L (98-107); Glucose 238 mg/dL (74-106); Phosphorus 2.8 mg/dL (2.4-5.1); Potassium 4.4 mmol/L (3.5-5.1); Sodium 137 mmol/L (136-145); Triglycerides 322 mg/dL (< 150)
[2023-07-03 07:08] LABS: % Iron Saturation 27.2 % (20-55); Bilirubin, Total 0.2 mg/dL (0.2-1.0); Total Protein 5.3 g/dL (5.7-8.2)
[2023-07-03 07:53] LABS: Magnesium 1.9 mg/dL (1.6-2.6)
[2023-07-03 08:21] VITALS: PULSE 106
[2023-07-03] MEDS ORDERED: METOCLOPRAMIDE HCL 10 MG TAB PO PRN (08:45)
[2023-07-03 09:00] VITALS: BP 136/82; PULSE 100; RESP 18; TEMP 98.2; O2SAT 99
[2023-07-03] MEDS: FAMOTIDINE 20 MG TAB PO SCH ×2 (09:32→21:03)
[2023-07-03] MEDS: ONDANSETRON HCL 4 MG/2 ML VIAL IV PRN ×3 (09:33→20:59)
[2023-07-03] MEDS: MORPHINE SULFATE INJ 2 MG/ml SYRG IV PRN ×3 (09:33→20:59)
[2023-07-03] MEDS: SUCRALFATE 1 GM/10 ML ORAL SUSP PO SCH ×3 (11:42→21:03)
[2023-07-03 13:00] VITALS: BP 107/75; PULSE 94; RESP 17; TEMP 97.9; O2SAT 99
[2023-07-03] MEDS ORDERED: MORPHINE SULFATE INJ 2 MG/ml SYRG IV PRN (13:15)
[2023-07-03 17:00] VITALS: BP 99/61; PULSE 100; RESP 17; TEMP 98.2; O2SAT 97
[2023-07-03] MEDS ORDERED: InsuLIN REG 1unit/0.01ml Soln (100units/ml) SC ONE (18:45)
[2023-07-03] MEDS: TPN PER PHARMACY IV NR ×10 (20:42)
[2023-07-03 21:00] VITALS: BP 102/62; PULSE 101; RESP 18; TEMP 98.5; O2SAT 96
[2023-07-04] MEDS: ACCU-CHEK COMFORT CURVE STRIP VI SCH ×4 (00:12→18:00)
[2023-07-04 05:00] VITALS: BP 119/81; PULSE 98; RESP 20; TEMP 98; O2SAT 96
[2023-07-04] MEDS: InsuLIN REG 1unit/0.01ml Soln (100units/ml) SC SCH ×4 (06:10→18:00)
[2023-07-04] MEDS: SUCRALFATE 1 GM/10 ML ORAL SUSP PO SCH ×4 (06:15→21:53)
[2023-07-04 07:11] LABS: Alkaline Phosphatase 147 U/L (46-116)
[2023-07-04 07:12] LABS: Alanine Aminotransferase 23 U/L (7-40); Albumin 2.9 g/dL (3.2-4.8); Anion Gap 6 (5-15); Aspartate Aminotransferase 19 U/L (13-40); Bilirubin, Total 0.2 mg/dL (0.2-1.0); Blood Urea Nitrogen 10 mg/dL (9-23); Carbon Dioxide 23 mmol/L (20-30); Chloride 106 mmol/L (98-107); Phosphorus 3.1 mg/dL (2.4-5.1); Potassium 4.4 mmol/L (3.5-5.1); Sodium 135 mmol/L (136-145)
[2023-07-04 07:21] LABS: Glucose 341 mg/dL (74-106)
[2023-07-04 09:00] VITALS: BP 102/70; PULSE 104; RESP 16; TEMP 98.7; O2SAT 96
[2023-07-04 09:35] LABS: Basophils # (auto) 0 10 ^3/uL (0-0.2); Basophils % (auto) 0.4 % (0.0-2.0); Eosinophils # (auto) 0.4 10 ^3/uL (0-0.8); Eosinophils % (auto) 6.2 % (0.0-7.0); Hemoglobin 10.5 g/dL (13.5-17.5); Lymphocytes % (auto) 32.5 % (10.0-50.0); Mean Corpuscular Hemoglobin 24.8 pg (28.0-32.0); Mean Corpuscular Hgb Conc. 30.9 g/dL (32.0-36.0); Mean Corpuscular Volume 80.4 fL (80.0-100.0); Monocytes # (auto) 0.3 10 ^3/uL (0-1.3); Monocytes % (auto) 5.2 % (0.0-12.0); Neutrophils # (auto) 3.3 10 ^3/uL (1.6-8.6); Neutrophils % (auto) 55.7 % (37.0-80.0); Nucleated Red Blood Cells % 0.1 %; Red Blood Cells 4.23 10^6/uL (4.5-5.90); Red Cell Distribution Width 16.9 % (11.8-14.3)
[2023-07-04] MEDS: FAMOTIDINE 20 MG TAB PO SCH ×2 (10:08→21:53)
[2023-07-04] MEDS ORDERED: CALCIUM GLUC 1,000mg/50ml-NS 50 ML IV ONE (10:15)
[2023-07-04] MEDS: ONDANSETRON HCL 4 MG/2 ML VIAL IV PRN ×2 (12:10→12:57)
[2023-07-04] MEDS: MORPHINE SULFATE INJ 2 MG/ml SYRG IV PRN (12:11)
[2023-07-04 13:00] VITALS: BP 121/71; PULSE 97; RESP 18; TEMP 99; O2SAT 97
[2023-07-04 14:39] VITALS: BP 121/71; PULSE 97; RESP 17; TEMP 37.1; O2SAT 97
[2023-07-04 17:05] VITALS: BP 114/76; PULSE 98; RESP 20; TEMP 98.5; O2SAT 99
[2023-07-04] MEDS: TPN PER PHARMACY IV NR ×10 (19:55)
[2023-07-04] MEDS ORDERED: TPN PER PHARMACY IV NR ×11 (20:00)
[2023-07-04 22:00] VITALS: BP 95/59; PULSE 109; RESP 15; TEMP 98.4; O2SAT 100
[2023-07-05] MEDS: InsuLIN REG 1unit/0.01ml Soln (100units/ml) SC SCH ×2 (01:15→05:38)
[2023-07-05] MEDS: ACCU-CHEK COMFORT CURVE STRIP VI SCH ×2 (01:16→05:38)
[2023-07-05 05:00] VITALS: BP 140/78; PULSE 112; RESP 20; TEMP 98.4; O2SAT 98
[2023-07-05] MEDS: SUCRALFATE 1 GM/10 ML ORAL SUSP PO SCH (07:00)
[2023-07-05 07:06] LABS: Alanine Aminotransferase 41 U/L (7-40); Alkaline Phosphatase 251 U/L (46-116); Anion Gap 6 (5-15); BUN/Creatinine Ratio 17.4 (10.0-20.0); Blood Urea Nitrogen 15 mg/dL (9-23); Calcium 7.9 mg/dL (8.7-10.4); Carbon Dioxide 25 mmol/L (20-30); Chloride 106 mmol/L (98-107); Potassium 4.3 mmol/L (3.5-5.1); Sodium 137 mmol/L (136-145)
[2023-07-05 07:07] LABS: Albumin 3.2 g/dL (3.2-4.8); Aspartate Aminotransferase 63 U/L (13-40); Bilirubin, Total 0.3 mg/dL (0.2-1.0); Glucose 126 mg/dL (74-106); Phosphorus 2.1 mg/dL (2.4-5.1); Total Protein 5.5 g/dL (5.7-8.2)
[2023-07-05 09:37] VITALS: BP 103/54; PULSE 124; RESP 20; TEMP 100.5; O2SAT 95
[2023-07-05] MEDS: ONDANSETRON HCL 4 MG/2 ML VIAL IV PRN (09:38)
[2023-07-05 09:39] VITALS: BP 103/54; PULSE 124; RESP 20
[2023-07-05] MEDS: FAMOTIDINE 20 MG TAB PO SCH (09:39)
[2023-07-05] MEDS: MORPHINE SULFATE INJ 2 MG/ml SYRG IV PRN (09:39)
[2023-07-05] MEDS ORDERED: CALCIUM GLUC 1,000mg/50ml-NS 50 ML IV ONE (10:30)
[2023-07-05] MEDS ORDERED: SODIUM PHOSP 40 MEQ in D5W 5% 250 ML IV ONE (11:30)
[2023-07-05] MEDS ORDERED: TPN PER PHARMACY IV NR ×9 (20:00)
== END 2023-07-05 10:20 | disposition home health service (06) | DRG 52 ==
LOC: ER 13:57 → EDBD 13:57 → TELE 17:45 → TELE-WESTW 07-01 16:12 → WEST WING 07-03 19:17
PROVIDERS: ADMIT Internal Medicine; ATTEND Internal Medicine
DX: G93.41 Metabolic encephalopathy (principal); N17.0 Acute kidney failure with tubular necrosis; R64 Cachexia; E10.10 Type 1 diabetes mellitus with ketoacidosis without coma; K22.10 Ulcer of esophagus without bleeding; E86.0 Dehydration; F12.10 Cannabis abuse, uncomplicated; D50.9 Iron deficiency anemia, unspecified; Z68.1 Body mass index [BMI] 19.9 or less, adult; Z91.148 Patient's other noncompliance with medication regimen for other reason
CPT/HCPCS: 36415; 36600; 70450; 71045; 80048; 80053; 80307; 80320; 80329; 81001; 82010; 82140; 82306; 82550; 82607; 82746; 82805; 82962; 83036; 83540; 83550; 83615; 83690; 83735; 83930; 83935; 84100; 84443; 84478; 84484; 85025; 85045; 85610; 86141; 87040; 87081; 87493; 93005; 96361; 96365; 96372; 96375; 97163; 99291; C9113; G0378; J1815; J1885; J2405; J3480; J7060; J7131

== ENCOUNTER 2023-08-07 16:36 | Inpatient (IN) | payer MEDICAID ==
[~2023-08-07] VITALS: Ht 167.6 cm; Wt 48.1 kg
[2023-08-07] MEDS ORDERED: LIDOCAINE VISCOUS 2% 15ML UD PO ONE (19:15)
[2023-08-07] MEDS ORDERED: ONDANSETRON HCL 4 MG/2 ML VIAL IV ONE (19:15)
[2023-08-07] MEDS ORDERED: MAALOX PLUS or MAALOX 30 ML PO ONE (19:15)
[2023-08-07] MEDS ORDERED: METOCLOPRAMIDE HCL 5MG/ml INJ 2ml VIAL IV ONE (19:15)
[2023-08-07] MEDS ORDERED: HYDROmorphone HCL 2 MG/ML VL/or syr IV ONE (19:15)
[2023-08-07] MEDS ORDERED: PANTOPRAZOLE 40 MG/10 ML VIAL INJ IV ONE (20:00)
[2023-08-07] MEDS: SODIUM CHLORIDE 0.9% 1,000 ML IV SCH ×2 (20:00→22:00)
[2023-08-07] MEDS ORDERED: SODIUM CHLORIDE 0.9% 2,950 ML IV ONE ×2 (20:00)
[2023-08-07 20:21] LABS: Basophils # (auto) 0 10 ^3/uL (0-0.2); Eosinophils # (auto) 0 10 ^3/uL (0-0.8); Eosinophils % (auto) 0.6 % (0.0-7.0); Monocytes # (auto) 0.7 10 ^3/uL (0-1.3); Red Blood Cells 4.71 10^6/uL (4.5-5.90)
[2023-08-07 20:22] LABS: Basophils % (auto) 0.8 % (0.0-2.0); Hematocrit 35.6 % (41.0-53.0); Lymphocytes # (auto) 1.8 10 ^3/uL (0.4-5.4); Lymphocytes % (auto) 30.1 % (10.0-50.0); Mean Corpuscular Hemoglobin 23.4 pg (28.0-32.0); Mean Corpuscular Volume 75.5 fL (80.0-100.0); Monocytes % (auto) 11.9 % (0.0-12.0); Neutrophils # (auto) 3.4 10 ^3/uL (1.6-8.6); Neutrophils % (auto) 56.6 % (37.0-80.0); Red Cell Distribution Width 16.8 % (11.8-14.3); White Blood Cell 6.1 10^3/uL (4.4-10.8)
[2023-08-07 20:39] LABS: Acetaminophen < 2.0 UG/ML (10.0-20.0)
[2023-08-07 20:43] LABS: Base Excess 8.2 mmol/L (-2.0-2.0)
[2023-08-07 21:03] LABS: INR 1.02 (0.9-1.15); Prothrombin Time 10.7 sec (9.3-11.8)
[2023-08-07 21:04] LABS: Alkaline Phosphatase 214 U/L (46-116); Anion Gap 15 (5-15); Aspartate Aminotransferase 12 U/L (13-40); BUN/Creatinine Ratio 14.7 (10.0-20.0); Bilirubin, Total 0.2 mg/dL (0.2-1.0); Blood Urea Nitrogen 22 mg/dL (9-23); Calcium 9.2 mg/dL (8.7-10.4); Carbon Dioxide 33 mmol/L (20-30); Chloride 86 mmol/L (98-107); Glucose 88 mg/dL (74-106); Lipase 25 U/L (12-53); Magnesium 2.1 mg/dL (1.6-2.6); Potassium 3.1 mmol/L (3.5-5.1); Sodium 134 mmol/L (136-145); Total Protein 7.1 g/dL (5.7-8.2)
[2023-08-07 21:07] LABS: Salicylate < 3.0 mg/dL (2.8-20.0)
[2023-08-07 21:08] LABS: Alanine Aminotransferase < 9 U/L (7-40)
[2023-08-07 21:10] LABS: Phosphorus 3.8 mg/dL (2.4-5.1)
[2023-08-07 21:43] LABS: Blood Alcohol 4.6 mg/dL (<10)
[2023-08-07] MEDS ORDERED: POTASSIUM CHL 20MEQ/100ML 100 ML IV ONE (23:15)
[2023-08-07] MEDS ORDERED: D5W/SOD CHLO 0.9% 1,000 ML IV SCH (23:30)
[2023-08-07] MEDS ORDERED: TPN PER PHARMACY 0 ML IV SCH ×2 (23:30→23:45)
[2023-08-07] MEDS ORDERED: DEXTROSE (50%) 50ML SYRG IV PRN (23:30)
[2023-08-08 01:30] VITALS: PULSE 125; RESP 12; O2SAT 98
[2023-08-08] MEDS: MORPHINE SULFATE INJ 2 MG/ml SYRG IV PRN ×4 (02:33→20:48)
[2023-08-08] MEDS: InsuLIN REG 1unit/0.01ml Soln (100units/ml) SC SCH ×6 (03:30→21:29)
[2023-08-08] MEDS: ACCU-CHEK COMFORT CURVE STRIP VI SCH ×6 (03:31→20:43)
[2023-08-08 05:50] LABS: Basophils # (auto) 0 10 ^3/uL (0-0.2); Basophils % (auto) 0.2 % (0.0-2.0); Eosinophils # (auto) 0 10 ^3/uL (0-0.8); Hemoglobin 9.8 g/dL (13.5-17.5); Lymphocytes # (auto) 0.5 10 ^3/uL (0.4-5.4); Lymphocytes % (auto) 6.3 % (10.0-50.0); Mean Corpuscular Hemoglobin 23.4 pg (28.0-32.0); Mean Corpuscular Hgb Conc. 30.5 g/dL (32.0-36.0); Mean Corpuscular Volume 76.6 fL (80.0-100.0); Monocytes # (auto) 0.4 10 ^3/uL (0-1.3); Monocytes % (auto) 4.8 % (0.0-12.0); Neutrophils # (auto) 7.2 10 ^3/uL (1.6-8.6); Neutrophils % (auto) 88.7 % (37.0-80.0); Red Blood Cells 4.18 10^6/uL (4.5-5.90); Red Cell Distribution Width 17.4 % (11.8-14.3); White Blood Cell 8.1 10^3/uL (4.4-10.8)
[2023-08-08 06:15] LABS: Albumin 3.2 g/dL (3.2-4.8); Alkaline Phosphatase 167 U/L (46-116); Anion Gap 22 (5-15); Aspartate Aminotransferase 10 U/L (13-40); BUN/Creatinine Ratio 14.2 (10.0-20.0); Bilirubin, Total < 0.2 mg/dL (0.2-1.0); Blood Urea Nitrogen 19 mg/dL (9-23); Calcium 7.8 mg/dL (8.5-10.1); Potassium 3.2 mmol/L (3.5-5.1); Sodium 139 mmol/L (136-145); Total Protein 5.5 g/dL (5.7-8.2)
[2023-08-08 06:26] LABS: Carbon Dioxide 20 mmol/L (20-30); Chloride 97 mmol/L (98-107); Glucose 302 mg/dL (74-106)
[2023-08-08 06:26] LABS: Urine Epithelial Cast None Seen /hpf (<5)
[2023-08-08 06:27] LABS: Alanine Aminotransferase < 9 U/L (7-40)
[2023-08-08] MEDS: METOCLOPRAMIDE HCL 5MG/ml INJ 2ml VIAL IV SCH ×3 (06:38→21:29)
[2023-08-08 06:46] LABS: Urine Bacteria NONE SEEN /hpf (None Seen); Urine Blood 1+ /uL (Negative); Urine Clarity CLOUDY (Clear); Urine Color STRAW (Yellow); Urine Hyaline Cast MANY /lpf (0 - 2); Urine Mucus FEW (None Seen); Urine Protein, UAD 2+ (Negative); Urine Specific Gravity 1.013 (1.001-1.035); Urine Urobilinogen Normal (Negative); Urine WBC 970 /hpf (0 - 3); Urine WBC Clumps PRESENT /hpf (None Seen)
[2023-08-08 06:49] LABS: Amphetamine Screen, Urine Neg (NEGATIVE); Barbiturate Scree,Urine Neg (NEGATIVE); Benzodiazephine Screen, Urine Neg (NEGATIVE); Cannabinoid Screen, Urine Pos (NEGATIVE); Cocaine Screen, Urine Neg (NEGATIVE); Opiate Scree,Urine Neg (NEGATIVE); Phencyclidine Screen, Urine Neg (NEGATIVE)
[2023-08-08] MEDS ORDERED: POTASSIUM CHL 20MEQ/100ML 100 ML IV ONE ×2 (07:00→09:15)
[2023-08-08 07:56] LABS: Phosphorus 2.7 mg/dL (2.4-5.1)
[2023-08-08] MEDS ORDERED: SODIUM CHLORIDE 0.9% 2,000 ML IV ONE (08:30)
[2023-08-08 08:38] LABS: Magnesium 1.8 mg/dL (1.6-2.6)
[2023-08-08] MEDS ORDERED: CALCIUM GLUC 1,000mg/50ml-NS 50 ML IV ONE (09:15)
[2023-08-08 09:21] LABS: Base Excess -0.6 mmol/L (-2.0-2.0)
[2023-08-08 10:20] VITALS: PULSE 111; RESP 19; O2SAT 99
[2023-08-08] MEDS: ONDANSETRON HCL 4 MG/2 ML VIAL IV PRN ×2 (10:29→20:43)
[2023-08-08] MEDS ORDERED: FOLIC ACID 1 MG, MULTIPLE VITAMIN 10 ML, MAGNESIUM SULF SDV 50% 8 MEQ, THIAMINE INJ 100... INJ SCH ×5 (12:00)
[2023-08-08 12:37] LABS: Alkaline Phosphatase 150 U/L (46-116); Anion Gap 16 (5-15); Aspartate Aminotransferase 9 U/L (13-40); BUN/Creatinine Ratio 12.4 (10.0-20.0); Bilirubin, Total < 0.2 mg/dL (0.2-1.0); Blood Urea Nitrogen 13 mg/dL (9-23); Carbon Dioxide 22 mmol/L (20-30); Chloride 105 mmol/L (98-107); Potassium 3.4 mmol/L (3.5-5.1); Sodium 143 mmol/L (136-145)
[2023-08-08 12:39] LABS: Alanine Aminotransferase < 9 U/L (7-40); Glucose 132 mg/dL (74-106)
[2023-08-08] MEDS: SODIUM CHLORIDE 0.9% 1,000 ML IV SCH ×2 (13:25→21:15)
[2023-08-08 15:31] VITALS: PULSE 106; RESP 18; O2SAT 98
[2023-08-08 17:00] VITALS: BP 141/93; PULSE 109; RESP 18; TEMP 97.9; O2SAT 97
[2023-08-08 20:00] VITALS: BP 138/75; PULSE 116; RESP 20; TEMP 98.5; O2SAT 98
[2023-08-08 22:00] VITALS: BP 138/75; PULSE 116; RESP 20; TEMP 98.5; O2SAT 98
[2023-08-08] MEDS: TPN PER PHARMACY IV NR ×33 (22:17→23:14)
[2023-08-08] MEDS: SUCRALFATE 1 GM/10 ML ORAL SUSP PO SCH (22:32)
[2023-08-09] VITALS (7 sets, daily range): BP systolic 112–154; BP diastolic 59–87; PULSE 77–111; RESP 17–80; TEMP 97.5–98.8; O2SAT 94–100
[2023-08-09] MEDS: InsuLIN REG 1unit/0.01ml Soln (100units/ml) SC SCH ×6 (01:11→21:10)
[2023-08-09] MEDS: ACCU-CHEK COMFORT CURVE STRIP VI SCH ×6 (01:11→21:02)
[2023-08-09] MEDS: MORPHINE SULFATE INJ 2 MG/ml SYRG IV PRN ×3 (02:14→21:15)
[2023-08-09] MEDS: ONDANSETRON HCL 4 MG/2 ML VIAL IV PRN ×2 (02:14→11:14)
[2023-08-09] MEDS: SODIUM CHLORIDE 0.9% 1,000 ML IV SCH ×3 (04:50→19:59)
[2023-08-09] MEDS: METOCLOPRAMIDE HCL 5MG/ml INJ 2ml VIAL IV SCH ×3 (05:10→21:02)
[2023-08-09] MEDS: SUCRALFATE 1 GM/10 ML ORAL SUSP PO SCH ×4 (05:10→21:02)
[2023-08-09 05:34] LABS: Alanine Aminotransferase 10 U/L (7-40); Alkaline Phosphatase 144 U/L (46-116); Anion Gap 15 (5-15); Aspartate Aminotransferase 19 U/L (13-40); BUN/Creatinine Ratio 8.4 (10.0-20.0); Bilirubin, Total < 0.2 mg/dL (0.2-1.0); Blood Urea Nitrogen 8 mg/dL (9-23); Carbon Dioxide 23 mmol/L (20-30); Chloride 105 mmol/L (98-107); Glucose 159 mg/dL (74-106); Magnesium 1.6 mg/dL (1.6-2.6); Phosphorus 1.8 mg/dL (2.4-5.1); Potassium 3.5 mmol/L (3.5-5.1); Sodium 143 mmol/L (136-145); Total Protein 5.3 g/dL (5.7-8.2)
[2023-08-09] MEDS: PANTOPRAZOLE 40 MG/10 ML VIAL INJ IV SCH ×2 (09:17→21:02)
[2023-08-09] MEDS ORDERED: PANTOPRAZOLE 40 MG/10 ML VIAL INJ IV SCH (10:00)
[2023-08-09] MEDS ORDERED: MAGNESIUM SULFATE 1GM/100ML 100 ML IV ONE (10:30)
[2023-08-09] MEDS ORDERED: POTASSIUM PHOSP 22MEQ(15MMOLE) in NS 100 ML IV ONE (11:00)
[2023-08-09] MEDS ORDERED: TPN PER PHARMACY IV NR ×11 (20:00)
[2023-08-10] VITALS (7 sets, daily range): BP systolic 132–170; BP diastolic 71–91; PULSE 90–117; RESP 17–20; TEMP 97.4–101; O2SAT 92–99
[2023-08-10] MEDS: ACCU-CHEK COMFORT CURVE STRIP VI SCH ×6 (00:24→20:06)
[2023-08-10] MEDS: InsuLIN REG 1unit/0.01ml Soln (100units/ml) SC SCH ×6 (00:26→20:09)
[2023-08-10] MEDS: MORPHINE SULFATE INJ 2 MG/ml SYRG IV PRN ×2 (04:24→22:56)
[2023-08-10] MEDS: METOCLOPRAMIDE HCL 5MG/ml INJ 2ml VIAL IV SCH ×3 (05:58→21:26)
[2023-08-10] MEDS: SUCRALFATE 1 GM/10 ML ORAL SUSP PO SCH ×4 (05:58→21:25)
[2023-08-10 06:30] LABS: Alanine Aminotransferase 10 U/L (7-40); Alkaline Phosphatase 140 U/L (46-116); Anion Gap 9 (5-15); Aspartate Aminotransferase 11 U/L (13-40); BUN/Creatinine Ratio 11.3 (10.0-20.0); Blood Urea Nitrogen 7 mg/dL (9-23); Calcium 7.8 mg/dL (8.7-10.4); Carbon Dioxide 27 mmol/L (20-30); Chloride 99 mmol/L (98-107); Glucose 155 mg/dL (74-106); Magnesium 1.7 mg/dL (1.6-2.6); Potassium 3.1 mmol/L (3.5-5.1)
[2023-08-10 06:31] LABS: Bilirubin, Total 0.2 mg/dL (0.2-1.0); Phosphorus 1.7 mg/dL (2.4-5.1); Total Protein 5.2 g/dL (5.7-8.2)
[2023-08-10 06:32] LABS: Sodium 135 mmol/L (136-145)
[2023-08-10 09:37] LABS: Hepatitis B Surface Antigen Negative (Negative)
[2023-08-10] MEDS: PANTOPRAZOLE 40 MG/10 ML VIAL INJ IV SCH ×2 (09:53→21:25)
[2023-08-10] MEDS: MAGNESIUM SULFATE 1GM/100ML 100 ML IV SCH ×2 (09:53→11:03)
[2023-08-10 09:59] LABS: Hepatitis C Antibody Negative (Negative)
[2023-08-10] MEDS ORDERED: POTASSIUM PHOSPHATE 44 MEQ in D5W 5% 250 ML IV ONE (10:00)
[2023-08-10] MEDS: SODIUM CHLORIDE 0.9% 1,000 ML IV SCH (11:00)
[2023-08-10] MEDS ORDERED: DEXTROSE (50%) 50ML SYRG IV PRN (12:00)
[2023-08-10] MEDS ORDERED: ACETAMINOPHEN 325 MG TAB PO PRN (12:00)
[2023-08-10] MEDS ORDERED: TPN PER PHARMACY IV NR ×11 (20:00)
[2023-08-10] MEDS: INSULIN LANTUS (GLARGINE) 1 /0.01ml (100units/ml) SC SCH (21:26)
[2023-08-10] MEDS: ONDANSETRON HCL 4 MG/2 ML VIAL IV PRN (22:56)
[2023-08-11] MEDS: ACCU-CHEK COMFORT CURVE STRIP VI SCH ×6 (00:18→20:36)
[2023-08-11] MEDS: InsuLIN REG 1unit/0.01ml Soln (100units/ml) SC SCH ×6 (00:19→20:38)
[2023-08-11] MEDS: ONDANSETRON HCL 4 MG/2 ML VIAL IV PRN ×3 (04:08→21:56)
[2023-08-11] MEDS: MORPHINE SULFATE INJ 2 MG/ml SYRG IV PRN ×4 (04:11→21:58)
[2023-08-11] MEDS: SODIUM CHLORIDE 0.9% 1,000 ML IV SCH ×2 (05:32→21:59)
[2023-08-11] MEDS: METOCLOPRAMIDE HCL 5MG/ml INJ 2ml VIAL IV SCH ×3 (05:58→21:36)
[2023-08-11] MEDS: SUCRALFATE 1 GM/10 ML ORAL SUSP PO SCH ×4 (05:58→21:36)
[2023-08-11 06:56] LABS: Alanine Aminotransferase 56 U/L (7-40); Alkaline Phosphatase 212 U/L (46-116); Calcium 7.5 mg/dL (8.7-10.4); Carbon Dioxide 29 mmol/L (20-30); Chloride 102 mmol/L (98-107)
[2023-08-11 06:57] LABS: Albumin 2.8 g/dL (3.2-4.8); Anion Gap 6 (5-15); Aspartate Aminotransferase 79 U/L (13-40); BUN/Creatinine Ratio 20.7 (10.0-20.0); Bilirubin, Total 0.2 mg/dL (0.2-1.0); Blood Urea Nitrogen 12 mg/dL (9-23); Glucose 59 mg/dL (74-106); Magnesium 2.1 mg/dL (1.6-2.6); Phosphorus 2.5 mg/dL (2.4-5.1); Potassium 3.6 mmol/L (3.5-5.1); Sodium 137 mmol/L (136-145); Total Protein 4.7 g/dL (5.7-8.2)
[2023-08-11 08:00] VITALS: BP 131/86; PULSE 109; RESP 18; TEMP 98.5; O2SAT 98
[2023-08-11 09:00] VITALS: BP_SYST 115; BP_SYST 131; BP_DIAS 72; BP_DIAS 86; PULSE 109; PULSE 73; RESP 18; TEMP 97.9; TEMP 98.5; O2SAT 97; O2SAT 98
[2023-08-11] MEDS: PANTOPRAZOLE 40 MG/10 ML VIAL INJ IV SCH ×2 (10:04→21:36)
[2023-08-11] MEDS ORDERED: POTASSIUM PHOSP 22MEQ(15MMOLE) in NS 100 ML IV ONE (12:45)
[2023-08-11 13:00] VITALS: BP 138/91; PULSE 109; RESP 18; TEMP 98.8; O2SAT 97
[2023-08-11 17:00] VITALS: BP 131/80; PULSE 108; RESP 18; TEMP 100.2; O2SAT 96
[2023-08-11 20:00] VITALS: BP_SYST 134; BP_SYST 150; BP_DIAS 66; BP_DIAS 78; PULSE 105; RESP 18; RESP 20; TEMP 100; TEMP 100.2; TEMP 99.6; O2SAT 97; O2SAT 98
[2023-08-11] MEDS ORDERED: TPN PER PHARMACY IV NR ×11 (20:00)
[2023-08-11] MEDS: INSULIN LANTUS (GLARGINE) 1 /0.01ml (100units/ml) SC SCH (21:37)
[2023-08-12] MEDS: ACCU-CHEK COMFORT CURVE STRIP VI SCH ×6 (00:51→21:10)
[2023-08-12] MEDS: ONDANSETRON HCL 4 MG/2 ML VIAL IV PRN ×5 (03:55→21:28)
[2023-08-12] MEDS: MORPHINE SULFATE INJ 2 MG/ml SYRG IV PRN ×5 (04:00→21:37)
[2023-08-12] MEDS: INSULIN LANTUS (GLARGINE) 1 /0.01ml (100units/ml) SC SCH ×2 (04:06→21:20)
[2023-08-12] MEDS: InsuLIN REG 1unit/0.01ml Soln (100units/ml) SC SCH ×6 (04:11→21:20)
[2023-08-12] MEDS: METOCLOPRAMIDE HCL 5MG/ml INJ 2ml VIAL IV SCH ×3 (06:17→21:09)
[2023-08-12] MEDS: SUCRALFATE 1 GM/10 ML ORAL SUSP PO SCH ×4 (06:21→21:09)
[2023-08-12 08:00] VITALS: BP 142/87; PULSE 98; RESP 18; TEMP 97.9; O2SAT 98
[2023-08-12 08:03] LABS: Alanine Aminotransferase 101 U/L (7-40); Albumin 2.7 g/dL (3.2-4.8); Alkaline Phosphatase 330 U/L (46-116); Anion Gap 3 (5-15); Aspartate Aminotransferase 131 U/L (13-40); BUN/Creatinine Ratio 16.9 (10.0-20.0); Bilirubin, Total 0.2 mg/dL (0.2-1.0); Blood Urea Nitrogen 10 mg/dL (9-23); Calcium 7.7 mg/dL (8.5-10.1); Carbon Dioxide 30 mmol/L (20-30); Chloride 105 mmol/L (98-107); Glucose 65 mg/dL (74-106); Potassium 3.7 mmol/L (3.5-5.1); Sodium 138 mmol/L (136-145); Total Protein 4.7 g/dL (5.7-8.2)
[2023-08-12] MEDS: PANTOPRAZOLE 40 MG/10 ML VIAL INJ IV SCH ×2 (08:12→21:09)
[2023-08-12 09:00] VITALS: BP 142/87; PULSE 98; RESP 18; TEMP 97.9; O2SAT 98
[2023-08-12] MEDS ORDERED: VANCOMYCIN 1GM/200ML 200 ML IV ONE (10:45)
[2023-08-12] MEDS ORDERED: VANCOMYCIN PER PHARMACY 0 MG IV SCH (10:45)
[2023-08-12 12:55] VITALS: BP_SYST 108; BP_SYST 155; BP_DIAS 81; BP_DIAS 85; PULSE 106; RESP 18; TEMP 98; O2SAT 99
[2023-08-12] MEDS: SODIUM CHLORIDE 0.9% 1,000 ML IV SCH (14:55)
[2023-08-12 16:10] VITALS: BP 111/64; PULSE 98; RESP 18; TEMP 97.9; O2SAT 99
[2023-08-12 20:00] VITALS: BP 142/87; PULSE 95; PULSE 98; RESP 18; TEMP 97.9; O2SAT 99
[2023-08-12 22:00] VITALS: BP 138/91; PULSE 95; RESP 18; TEMP 97.9; O2SAT 99
[2023-08-13] MEDS: ACCU-CHEK COMFORT CURVE STRIP VI SCH ×6 (00:16→21:02)
[2023-08-13] MEDS: VANCOMYCIN 750mg/150ml 150 ML IV SCH ×2 (00:19→12:51)
[2023-08-13] MEDS: InsuLIN REG 1unit/0.01ml Soln (100units/ml) SC SCH ×6 (04:00→20:53)
[2023-08-13] MEDS: ONDANSETRON HCL 4 MG/2 ML VIAL IV PRN (04:52)
[2023-08-13] MEDS: MORPHINE SULFATE INJ 2 MG/ml SYRG IV PRN ×3 (04:53→21:09)
[2023-08-13 05:00] VITALS: BP 127/80; PULSE 87; RESP 16; TEMP 98.4; O2SAT 100
[2023-08-13 05:32] LABS: Chloride 106 mmol/L (98-107); Potassium 4.3 mmol/L (3.5-5.1); Sodium 137 mmol/L (136-145)
[2023-08-13 05:35] LABS: Anion Gap 4 (5-15); Calcium 7.5 mg/dL (8.7-10.4); Carbon Dioxide 27 mmol/L (20-30)
[2023-08-13 05:40] LABS: BUN/Creatinine Ratio 13.5 (10.0-20.0); Blood Urea Nitrogen 7 mg/dL (9-23); Glucose 89 mg/dL (74-106)
[2023-08-13] MEDS: SUCRALFATE 1 GM/10 ML ORAL SUSP PO SCH ×4 (06:45→21:08)
[2023-08-13] MEDS: METOCLOPRAMIDE HCL 5MG/ml INJ 2ml VIAL IV SCH ×3 (06:46→21:09)
[2023-08-13] MEDS: SODIUM CHLORIDE 0.9% 1,000 ML IV SCH ×2 (07:19→21:09)
[2023-08-13] MEDS: PANTOPRAZOLE 40 MG/10 ML VIAL INJ IV SCH ×2 (08:45→21:09)
[2023-08-13 09:00] VITALS: BP_SYST 111; BP_SYST 134; BP_DIAS 58; BP_DIAS 87; PULSE 58; PULSE 84; RESP 20; TEMP 97.2; TEMP 97.4; O2SAT 93; O2SAT 99
[2023-08-13 12:00] VITALS: BP 117/82; PULSE 93; RESP 20; TEMP 97.5; O2SAT 99
[2023-08-13 16:00] VITALS: BP 152/103; PULSE 109; RESP 20; TEMP 96.9; O2SAT 99
[2023-08-13 20:00] VITALS: BP 142/87; PULSE 100; PULSE 98; RESP 18; TEMP 97.9; O2SAT 99
[2023-08-13] MEDS: INSULIN LANTUS (GLARGINE) 1 /0.01ml (100units/ml) SC SCH (21:01)
[2023-08-13 22:00] VITALS: BP 184/120; PULSE 105; RESP 18; TEMP 98.4; O2SAT 100
[2023-08-14] MEDS: VANCOMYCIN 750mg/150ml 150 ML IV SCH ×2 (00:09→11:29)
[2023-08-14] MEDS: ACCU-CHEK COMFORT CURVE STRIP VI SCH ×5 (00:11→16:00)
[2023-08-14] MEDS: MORPHINE SULFATE INJ 2 MG/ml SYRG IV PRN ×2 (03:13→08:45)
[2023-08-14] MEDS: ONDANSETRON HCL 4 MG/2 ML VIAL IV PRN ×2 (03:13→08:45)
[2023-08-14] MEDS: InsuLIN REG 1unit/0.01ml Soln (100units/ml) SC SCH ×5 (03:24→16:00)
[2023-08-14 05:00] VITALS: BP 149/93; PULSE 90; RESP 16; TEMP 97.3; O2SAT 100
[2023-08-14] MEDS: METOCLOPRAMIDE HCL 5MG/ml INJ 2ml VIAL IV SCH ×2 (06:35→16:47)
[2023-08-14] MEDS: SUCRALFATE 1 GM/10 ML ORAL SUSP PO SCH ×3 (06:35→16:47)
[2023-08-14 08:00] VITALS: BP 153/95; PULSE 86; RESP 18; TEMP 97.4; O2SAT 100
[2023-08-14] MEDS: PANTOPRAZOLE 40 MG/10 ML VIAL INJ IV SCH (08:03)
[2023-08-14 08:25] VITALS: BP 153/95; PULSE 86; RESP 18; TEMP 97.4; O2SAT 100
[2023-08-14 12:26] VITALS: BP 109/72; PULSE 93; RESP 18; TEMP 97.5; O2SAT 100
[2023-08-14] MEDS ORDERED: LEVO500T91 PO (13:39)
[2023-08-14] MEDS: SODIUM CHLORIDE 0.9% 1,000 ML IV SCH (16:39)
== END 2023-08-14 15:01 | disposition home health service (06) | DRG 420 ==
LOC: ER 16:36 → OVERFLOW 23:32 → WEST WING 08-08 15:05
PROVIDERS: ADMIT Nurse Practitioner; ATTEND Family Medicine
DX: E10.10 Type 1 diabetes mellitus with ketoacidosis without coma (principal); N17.0 Acute kidney failure with tubular necrosis; G93.41 Metabolic encephalopathy; R64 Cachexia; B95.7 Other staphylococcus as the cause of diseases classified elsewhere; R62.7 Adult failure to thrive; D50.9 Iron deficiency anemia, unspecified; F12.10 Cannabis abuse, uncomplicated; E10.43 Type 1 diabetes mellitus with diabetic autonomic (poly)neuropathy; K31.84 Gastroparesis; K44.9 Diaphragmatic hernia without obstruction or gangrene; E87.6 Hypokalemia; E87.8 Other disorders of electrolyte and fluid balance, not elsewhere classified; K21.9 Gastro-esophageal reflux disease without esophagitis; Z91.199 Patient's noncompliance with other medical treatment and regimen due to unspecified reason; Z82.0 Family history of epilepsy and other diseases of the nervous system; Z83.3 Family history of diabetes mellitus; Z87.19 Personal history of other diseases of the digestive system; Z79.4 Long term (current) use of insulin; Z68.1 Body mass index [BMI] 19.9 or less, adult
CPT/HCPCS: 36415; 36600; 71045; 74176; 80048; 80053; 80202; 80307; 80320; 80329; 81001; 82010; 82805; 82962; 83036; 83605; 83690; 83735; 83930; 84100; 84478; 84484; 85025; 85610; 85730; 86803; 87040; 87077; 87081; 87086; 87088; 87186; 87340; C9113; G0378; J1815; J2405; J3480; J7060; J7131

== ENCOUNTER 2024-12-02 12:59 | Inpatient (IN) | payer MEDICAID ==
[2024-12-02] VITALS (12 sets, daily range): BP systolic 91–116; BP diastolic 52–69; PULSE 112–127; RESP 10–23; O2SAT 93–100
[~2024-12-02] VITALS: Ht 172.7 cm; Wt 51.4 kg
[~2024-12-02 12:59] MED LIST changes: -INSU1INJ26 SC; -METO-281 PO; +METO5TAB2 PO; -PANT40T PO; -SUCR1TAB PO
--- NOTE | 2024-12-02 13:09 | ED.PDOC ---
History of present illness HPI Comments 44 y/o M, BIBA, with PMHx of DM1 presents to the ED for CC of DKA. EMS reports patient is coming from home where he complains of weakness, poor appetite, abdominal pain, nausea, and vomiting onset, 2weeks. EMS states, patient has previously been in DKA. In route to the ED, patient's blood sugar read high on glucometer. Patient smokes marijuana denies tobacco or ETOH usage. No other symptoms or modifying factors present at this time. Time Seen by MD: 13:00 Primary Care Provider: MANJU History of present illness: Nurses Notes, Kitchen Clerk Notes, Medications, Allergies Allergies: Coded Allergies: NO KNOWN ALLERGIES (Unverified , 02/01/23) Home Meds Reported Medications Metoclopramide Hcl (Metoclopramide Hcl) 5 Mg Tab, 1 TAB PO QID 10/19/23 Information Source: Patient Mode of Arrival: EMS Timing: Weeks Duration: Since onset Prehospital treatment: IVF [place]: None Symptoms: Eating poorly History of: Diabetes, Insulin use Modifying factors: Nothing Associated signs and symptoms: Abdominal Pain, Nausea, Vomiting Past Medical History PAST MEDICAL HISTORY: DM Surgical History: Denies all surgeries Family History Family History: Reviewed,noncontributory to illness Social History Smoker: Non-Smoker Alcohol: Denies ETOH Use Drugs: Marijuana Lives In: Home Constitutional: denies: chills, diaphoresis, fatigue, fever, malaise, sweats, weakness, others EENTM: denies: blurred vision, double vision, ear bleeding, ear discharge, ear drainage, ear pain, ear ringing, eye pain, eye redness, hearing loss, mouth pain, mouth swelling, nasal discharge, nose bleeding, nose congestion, nose pain, photophobia, tearing, throat pain, throat swelling, voice changes, others Respiratory: denies: cough, hemoptysis, orthopnea, SOB at rest, shortness of breath, SOB with excertion, stridor, wheezing, others Cardiovascular: denies: chest pain, dizzy spells, diaphoresis, Dyspnea on exertion, edema, irregular heart beat, left arm pain, lightheadedness, palpitations, PND, syncope, others Gastrointestinal: reports: abdominal pain, diarrhea, nausea, vomiting; denies: abdomen distended, blood streaked bowels, constipated, dysphagia, difficulty swallowing, hematemesis, melena, poor appetite, poor fluid intake, rectal bleeding, rectal pain, others Genitourinary: denies: burning, dysuria, flank pain, frequency, hematuria, incontinence, penile discharge, penile sore, pain, testicle pain, testicle swelling, urgency, others Neurological: denies: dizziness, fainting, headache, left sided numbness, left sided weakness, numbness, paresthesia, pre-existing deficit, right sided numbness, right sided weakness, seizure, speech problems, tingling, tremors, weakness, others Musculoskeletal: denies: back pain, gout, joint pain, joint swelling, muscle pain, muscle stiffness, neck pain, others Integumetry: denies: bruises, change in color, change in hair/nails, dryness, laceration, lesions, lumps, rash, wounds, others Allergic/Immunocompromised: denies: Difficulty Healing, Frequent Infections, Hives, Itching, others Hematologic/Lymphatic: denies: anemia, blood clots, easy bleeding, easy bruising, swollen glands, others Endocrine: denies: excessive hunger, excessive sweating, excessive thirst, excessive urination, flushing, intolerance to cold, intolerance to heat, unexplained weight gain, unexplained weight loss, others Psychiatric: denies: anxiety, bipolar disorder, depression, hopeless, panic disorder, schizophrenia, sleepless, suicidal, others All Other Systems: Reviewed and Negative Physical Exam General Appearance: Moderate Distress, Thin HEENT: Pale Conjuntivae (L), Pale Conjuntivae (R), Pharynx Normal, TMs Normal Neck: Full Range of Motion, Non-Tender, Normal, Normal Inspection Respiratory: Chest Non-Tender, Lungs Clear, No Accessory Muscle Use, No Respira tory Distress, Normal Breath Sounds Cardiovascular: No Edema, No JVD, No Murmur, No Gallop, Tachycardia Breast Exam: Deferred Gastrointestinal: No Organomegaly, Non Tender, No Pulsatile Mass, Normal Bowel Sounds, Soft Genitalia: Deferred Pelvic: Deferred Rectal: Deferred Extremities: No calf tenderness, Normal capillary refill, Normal inspection, Normal range of motion, Non-tender, No pedal edema Musculoskeletal : Apperance: Normal 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 Was a procedure done?: No Differential Diagnosis (DM) Differential Diagnosis: Dehydration, DKA, Electrolyte Abnormality X-Ray, Labs, Meds, VS Vital Signs Date Time Temp Pulse Resp B/P (MAP) Pulse Ox O2 Delivery O2 Flow Rate FiO2 12/02/24 13:15 98.5 120 20 113/69 (84) 99 98.5 Lab Test 12/02/24 13:41 12/02/24 13:39 Range/Units Blood Gas Specimen Type Arterial Blood Gas Sample Site Left radial Blood Gas Patient Temperature 37.0 Arterial Blood Date Drawn [id number] Arterial Blood pH 7.360 7.350-7.450 Arterial Blood Partial Pressure CO2 23.9 L 35.0-48.0 mmHg Arterial Blood Partial Pressure O2 99.9 83.0-108.0 mmHg Arterial Blood HCO3 13.2 L 21.0-28.0 mmol/L Arterial Blood Oxygen Saturation 96.8 94.0-98.0 % Arterial Blood Base Excess -10.6 L -2.0-3.0 mmol/L Arterial Blood Oxyhemoglobin 95.9 94.0-98.0 % Arterial Blood Carboxyhemoglobin 0.3 L 0.5-1.5 % Arterial Blood Methemoglobin 0.6 0.0-1.5 % Kyle Test Yes Blood Gas Total Hemoglobin 11.30 L 13.5-17.5 g/dL Blood Gas Modality Room air FiO2 % 21.0 White Blood Count 10.1 4.4-10.8 10^3/uL Red Blood Count 4.79 4.5-5.90 10^6/uL Hemoglobin 11.2 L 13.5-17.5 g/dL Hematocrit 37.6 L 41.0-53.0 % Mean Corpuscular Volume 78.4 L 80.0-100.0 fL Mean Corpuscular Hemoglobin 23.3 L 28.0-32.0 pg Mean Corpuscular Hemoglobin Concent 29.8 L 32.0-36.0 g/dL Red Cell Distribution Width 19.7 H 11.8-14.3 % Platelet Count 449 140-450 10^3/uL Mean Platelet Volume 7.7 6.9-10.8 fL Neutrophils (%) (Auto) 82.9 H 37.0-80.0 % Lymphocytes (%) (Auto) 10.3 10.0-50.0 % Monocytes (%) (Auto) 6.1 0.0-12.0 % Eosinophils (%) (Auto) 0.3 0.0-7.0 % Basophils (%) (Auto) 0.4 0.0-2.0 % Neutrophils # (Auto) 8.3 1.6-8.6 10 ^3/uL Lymphocytes # (Auto) 1.0 0.4-5.4 10 ^3/uL Monocytes # (Auto) 0.6 0-1.3 10 ^3/uL Eosinophils # (Auto) 0 0-0.8 10 ^3/uL Basophils # (Auto) 0 0-0.2 10 ^3/uL Nucleated Red Blood Cells 0.0 % Sodium Level 138 136-145 mmol/L Potassium Level 3.8 3.5-5.1 mmol/L Chloride Level 88 L 98-107 mmol/L Carbon Dioxide Level 16 L 20-31 mmol/L Anion Gap 34 H 5-15 Blood Urea Nitrogen 44 H 9-23 mg/dL Creatinine 2.65 H 0.700-1.30 mg/dL Glomerular Filtration Rate Calc 30 >90 mL/min BUN/Creatinine Ratio 16.6 10.0-20.0 Serum Glucose 698 *H 74-106 mg/dL Serum Osmolality 350 H 278-298 mOsm/kg Calcium Level 7.6 L 8.7-10.4 mg/dL Phosphorus Level 5.8 H 2.4-5.1 mg/dL Magnesium Level 2.6 1.6-2.6 mg/dL Beta-Hydroxybutyric Acid > 4.500 H < 0.4 mmol/L IV Hep-Lock was established The CBC shows anemia with a hemoglobin of 11.2 and hematocrit of 37.6 The patient's chemistry panel shows hypochloremia as well as a CO2 level of 16 and an increase anion gap of 34 The patient's BUN is 44 and the creatinine is 2.65 The patient is being admitted to the hospitalist The patient is being admitted for DKA The patient's initial glucose was 698 The beta hydroxybutyric acid is extremely elevated At this time, the patient is being admitted to the ICU We will continue the insulin drip An ABG was done and shows a pH of 7.36 The patient understands and agrees with the management. Images Reviewed?: Images reviewed and evaluated by me Time of 1ST Reevaluation: 13:30 Reevaluation 1ST: Unchanged Patient Education/Counseling: Diagnosis, Treatment, Prognosis Family Education/Counseling: No Family Present Departure 1 Departure Time of Disposition: 15:48 Impression: Primary Impression: Acute abdominal pain Additional Impressions: Cannabinoid hyperemesis syndrome Diabetic keto-acidosis Qualified Codes: E13.10 - Other specified diabetes mellitus with ketoacidosis without coma Disposition: ADMITTED INPATIENT Admit to: ICU Condition: Fair Critical Care Note Critical Care Time?: Yes (45 min-critical care time only) Stability Stability form required: Yes Unstable for transfer: ICU, CCU, PCU, OXANA (Intensive VS monitoring), May require CPR (possible rapid decline), ED Physician Assesment (Clinical assesment) Heart Score Heart Score: Heart Score Response (Comments) Value History N/A 0 EKG N/A 0 Age N/A 0 Risk Factors N/A 0 Troponin N/A 0 Total 0 I personally scribed for HUGH DYER MD ([email or web address]) on 12/02/24 at 13:08. Electronically submitted by Lizzy Proctor ([email or web address]). HUGH DEYR MD December 02, 2024 13:08
[2024-12-02] MEDS ORDERED: DEXTROSE (50%) 50ML SYRG IV PRN (13:15)
[2024-12-02] MEDS: SODIUM CHLORIDE 0.9% 1,000 ML IV SCH ×2 (13:15→21:47)
[2024-12-02] MEDS: ACCU-CHEK COMFORT CURVE STRIP VI SCH (13:30)
[2024-12-02 13:45] LABS: Base Excess -10.6 mmol/L (-2.0-3.0)
[2024-12-02 14:18] LABS: Basophils # (auto) 0 10 ^3/uL (0-0.2); Eosinophils # (auto) 0 10 ^3/uL (0-0.8); Eosinophils % (auto) 0.3 % (0.0-7.0); Hemoglobin 11.2 g/dL (13.5-17.5); Monocytes # (auto) 0.6 10 ^3/uL (0-1.3); Neutrophils # (auto) 8.3 10 ^3/uL (1.6-8.6)
[2024-12-02 14:23] LABS: Basophils % (auto) 0.4 % (0.0-2.0); Hematocrit 37.6 % (41.0-53.0); Lymphocytes % (auto) 10.3 % (10.0-50.0); Mean Corpuscular Hemoglobin 23.3 pg (28.0-32.0); Mean Corpuscular Hgb Conc. 29.8 g/dL (32.0-36.0); Mean Corpuscular Volume 78.4 fL (80.0-100.0); Monocytes % (auto) 6.1 % (0.0-12.0); Neutrophils % (auto) 82.9 % (37.0-80.0); Platelet Count (auto) 449 10^3/uL (140-450); Red Blood Cells 4.79 10^6/uL (4.5-5.90); Red Cell Distribution Width 19.7 % (11.8-14.3); White Blood Cell 10.1 10^3/uL (4.4-10.8)
[2024-12-02 14:26] LABS: Anion Gap 34 (5-15); Potassium 3.8 mmol/L (3.5-5.1); Sodium 138 mmol/L (136-145)
[2024-12-02 14:32] LABS: BUN/Creatinine Ratio 16.6 (10.0-20.0)
[2024-12-02 14:33] LABS: Blood Urea Nitrogen 44 mg/dL (9-23); Calcium 7.6 mg/dL (8.7-10.4); Carbon Dioxide 16 mmol/L (20-31); Chloride 88 mmol/L (98-107); Magnesium 2.6 mg/dL (1.6-2.6)
[2024-12-02 14:34] LABS: Glucose 698 mg/dL (74-106); Phosphorus 5.8 mg/dL (2.4-5.1)
--- NOTE | 2024-12-02 14:43 | DVH ---
Exam: CT CT AB PEL WO CON-NO ORAL OR IV History: pain Comparison Study: CT CT AB PEL WO CON-NO ORAL OR IV on DOS: 10/19/23, CT CT AB PEL WO CON-NO ORAL OR I V on DOS: 08/07/23, CT CT AB PEL WO CON-NO ORAL OR IV on DOS: 04/18/23 Technique: Multidetector spiral CT of the abdomen and pelvis was performed from lung bases to pubic symphysis. Imaging was performed without IV contrast. Axial, coronal and sagittal multiplanar reform ats were obtained from the axial data set by the technologist. Radiation dose : Abdomen/Pelvis: CTDIvol 5 mGy, DLP 297 mGy*cm. Findings: Evaluation of solid organs is limited due to lack of intravenous contrast use. Lung Bases: No acute or significant lung base finding. Normal heart size. No pleural or pericardial effusion. Liver: The liver is normal in size. No focal lesions. Gallbladder and biliary Tree: Unremarkable Spleen: Unremarkable Pancreas: The pancreas is grossly normal in appearance. Adrenal Glands: Unremarkable Kidneys: Mild right hydronephrosis. No obstructing ureteral calculus identified. Bladder: Distended. Bowel: The stomach is grossly normal in appearance. Small bowel and colon are normal in caliber and d istribution. Normal appendix is visualized in the right lower quadrant without findings of appendicit is. Ascites: Absent Lymphadenopathy: Mildly prominent right external iliac lymph node measuring up to 9 mm in short axis. Abdominal wall and Mesentery: Unremarkable. Vasculature: The visualized abdominal aorta is normal in size and caliber. Evaluation of abdominal a nd pelvic vessels is limited due to lack of intravenous contrast. Pelvic Organs: Unremarkable Musculoskeletal: No aggressive focal bony lesions, acute fractures or dislocation. IMPRESSION: 1. No acute abdominal or pelvic findings. Mild right hydronephrosis similar to prior. Mildly prominen t right inguinal lymph nodes similar to prior. Distended bladder. Radiation optimization: All CT scans at this facility use at least one of these dose optimization miles hniques: Automated exposure control mA and/or kV adjustment per patient size (includes targeted exams where dose is matched to clinical indication) or iterative reconstruction. HS:Y
[2024-12-02] MEDS: INSULIN LANTUS (GLARGINE) 1 /0.01ml (100units/ml) SC ONE (17:37)
[2024-12-02] MEDS: PROCHLORPERAZINE EDISYLATE 5 MG/ML 2ML VIAL IV ONE (19:26)
[2024-12-02] MEDS: MORPHINE SULFATE INJ 2 MG/ml SYRG IV ONE (19:26)
[2024-12-02] MEDS: PANTOPRAZOLE 40 MG/10 ML VIAL INJ IV ONE (19:26)
[2024-12-02] MEDS: INSULIN DRIP 100 UNIT/100ML 100 ML IV SCH (19:39)
[2024-12-02] MEDS ORDERED: MORPHINE SULFATE INJ 2 MG/ml SYRG IV PRN (20:00)
[2024-12-02] MEDS ORDERED: NITROGLYCERIN 0.4 MG SL TAB SL PRN (20:00)
[2024-12-02] MEDS: SODIUM CHLORIDE 0.9% 1,000 ML IV ONE (21:20)
--- NOTE | 2024-12-02 21:36 | DVHHP2 ---
History of Present Illness Reason for Visit: Abdominal pain History of Present Illness 44-year-old male presents for evaluation of abdominal pain. Patient endorses a two week history of generalized weakness with associated poor appetite, abdominal pain, nausea and vomiting. He also reports his blood sugar rate has been high for the past four days. No fever or chills. No other acute complaints. Past Medical History Diabetes mellitus Past Surgical History Denies Family History Noncontributory Smoke: No ALCOHOL: none Drugs: Marijuana Lives: with Family Review of Systems Review of Systems Review of systems are currently negative otherwise addressed in HPI. Allergies: Coded Allergies: NO KNOWN ALLERGIES (Unverified , 02/01/23) Medications Current Medications Medications Dose Ordered Sig/Zaria Route Start Time Stop Time Status Last Admin Dose Admin Sodium Chloride 1,000 ml @ 150 mls/hr Q6H40M IV 12/02/24 19:15 Insulin Human (Reg)/Sodium Chloride 100 ml @ 0.5 mls/hr Q24H IV 12/02/24 13:15 12/02/24 19:39 6 MLS/HR Dextrose 50 ml UD PRN IV 12/02/24 13:15 Diagnostic Test (Pha) 1 strip Q90MIN 12/02/24 13:30 12/02/24 19:39 1 STRIP Insulin Glargine 15 units DAILY SC 12/03/24 10:00 Ondansetron HCl 4 mg Q4HP PRN IV 12/02/24 20:00 Nitroglycerin 0.4 mg Q5MINP PRN SL 12/02/24 20:00 Morphine Sulfate 2 mg Q30M PRN IV 12/02/24 20:00 Exam Vital Signs Vital Signs Date Time Temp Pulse Resp B/P (MAP) Pulse Ox O2 Delivery O2 Flow Rate FiO2 12/02/24 20:00 110 12/02/24 19:30 20 100 Nasal Cannula* 4 36 12/02/24 19:30 97.0 117/68 (84) 97.0 Exam Gen: 44-year-old male in mild distress Skin: Warm, dry, normal color and texture, no rash. HEENT: Normocephalic atraumatic, mucous membranes moist and pink. Neck: Cervical and supraclavicular nodes normal without enlargement, trachea is midline, thyroid gland is normal without masses. Pulmonary: Clear to auscultation and percussion bilaterally. Cardiac: Sinus tachycardia Abdomen: Soft, nontender, nondistended, bowel sounds present all 4 quadrants, no guarding, no rigidity, no organomegaly. Extremities: No cyanosis, clubbing, no edema Neuro: Cranial nerves II through XII grossly intact, normal affect and speech, no focal motor deficits. Labs/Xrays ORDERING PHYSICIAN: HUGH DYER MD PROCEDURE(s): ABPL - CT AB PEL WO CON-NO ORAL OR IV REASON: pain ORDER NUMBER(s): [id number], ACCESSION NUMBER(s): [id number] Exam: CT CT AB PEL WO CON-NO ORAL OR IV History: pain Comparison Study: CT CT AB PEL WO CON-NO ORAL OR IV on DOS: 10/19/23, CT CT AB PEL WO CON-NO ORAL OR IV on DOS: 08/07/23, CT CT AB PEL WO CON-NO ORAL OR IV on DOS: 04/18/23 Technique: Multidetector spiral CT of the abdomen and pelvis was performed from lung bases to pubic symphysis. Imaging was performed without IV contrast. Axial, coronal and sagittal multiplanar reformats were obtained from the axial data set by the technologist. Radiation dose : Abdomen/Pelvis: CTDIvol 5 mGy, DLP 297 mGy*cm. Findings: Evaluation of solid organs is limited due to lack of intravenous contrast use. Lung Bases: No acute or significant lung base finding. Normal heart size. No pleural or pericardial effusion. Liver: The liver is normal in size. No focal lesions. Gallbladder and biliary Tree: Unremarkable Spleen: Unremarkable Pancreas: The pancreas is grossly normal in appearance. Adrenal Glands: Unremarkable Kidneys: Mild right hydronephrosis. No obstructing ureteral calculus identified. Bladder: Distended. Bowel: The stomach is grossly normal in appearance. Small bowel and colon are normal in caliber and distribution. Normal appendix is visualized in the right lower quadrant without findings of appendicitis. Ascites: Absent Lymphadenopathy: Mildly prominent right external iliac lymph node measuring up to 9 mm in short axis. Abdominal wall and Mesentery: Unremarkable. Vasculature: The visualized abdominal aorta is normal in size and caliber. Evaluation of abdominal and pelvic vessels is limited due to lack of intravenous contrast. Pelvic Organs: Unremarkable Musculoskeletal: No aggressive focal bony lesions, acute fractures or dislocation. IMPRESSION: 1. No acute abdominal or pelvic findings. Mild right hydronephrosis similar to prior. Mildly prominent right inguinal lymph nodes similar to prior. Distended bladder. Radiation optimization: All CT scans at this facility use at least one of these dose optimization techniques: Automated exposure control mA and/or kV adjustment per patient size (includes targeted exams where dose is matched to clinical indication) or iterative reconstruction. HS:Y Labs Test 12/02/24 18:06 12/02/24 13:41 12/02/24 13:39 Range/Units POC Glucose > 600 *H 70-106 mg/dl Blood Gas Specimen Type Arterial Blood Gas Sample Site Left radial Blood Gas Patient Temperature 37.0 Arterial Blood Date Drawn [id number] Arterial Blood pH 7.360 7.350-7.450 Arterial Blood Partial Pressure CO2 23.9 L 35.0-48.0 mmHg Arterial Blood Partial Pressure O2 99.9 83.0-108.0 mmHg Arterial Blood HCO3 13.2 L 21.0-28.0 mmol/L Arterial Blood Oxygen Saturation 96.8 94.0-98.0 % Arterial Blood Base Excess -10.6 L -2.0-3.0 mmol/L Arterial Blood Oxyhemoglobin 95.9 94.0-98.0 % Arterial Blood Carboxyhemoglobin 0.3 L 0.5-1.5 % Arterial Blood Methemoglobin 0.6 0.0-1.5 % Kyle Test Yes Blood Gas Total Hemoglobin 11.30 L 13.5-17.5 g/dL Blood Gas Modality Room air FiO2 % 21.0 White Blood Count 10.1 4.4-10.8 10^3/uL Red Blood Count 4.79 4.5-5.90 10^6/uL Hemoglobin 11.2 L 13.5-17.5 g/dL Hematocrit 37.6 L 41.0-53.0 % Mean Corpuscular Volume 78.4 L 80.0-100.0 fL Mean Corpuscular Hemoglobin 23.3 L 28.0-32.0 pg Mean Corpuscular Hemoglobin Concent 29.8 L 32.0-36.0 g/dL Red Cell Distribution Width 19.7 H 11.8-14.3 % Platelet Count 449 140-450 10^3/uL Mean Platelet Volume 7.7 6.9-10.8 fL Neutrophils (%) (Auto) 82.9 H 37.0-80.0 % Lymphocytes (%) (Auto) 10.3 10.0-50.0 % Monocytes (%) (Auto) 6.1 0.0-12.0 % Eosinophils (%) (Auto) 0.3 0.0-7.0 % Basophils (%) (Auto) 0.4 0.0-2.0 % Neutrophils # (Auto) 8.3 1.6-8.6 10 ^3/uL Lymphocytes # (Auto) 1.0 0.4-5.4 10 ^3/uL Monocytes # (Auto) 0.6 0-1.3 10 ^3/uL Eosinophils # (Auto) 0 0-0.8 10 ^3/uL Basophils # (Auto) 0 0-0.2 10 ^3/uL Nucleated Red Blood Cells 0.0 % Sodium Level 138 136-145 mmol/L Potassium Level 3.8 3.5-5.1 mmol/L Chloride Level 88 L 98-107 mmol/L Carbon Dioxide Level 16 L 20-31 mmol/L Anion Gap 34 H 5-15 Blood Urea Nitrogen 44 H 9-23 mg/dL Creatinine 2.65 H 0.700-1.30 mg/dL Glomerular Filtration Rate Calc 30 >90 mL/min BUN/Creatinine Ratio 16.6 10.0-20.0 Serum Glucose 698 *H 74-106 mg/dL Serum Osmolality 350 H 278-298 mOsm/kg Calcium Level 7.6 L 8.7-10.4 mg/dL Phosphorus Level 5.8 H 2.4-5.1 mg/dL Magnesium Level 2.6 1.6-2.6 mg/dL Beta-Hydroxybutyric Acid > 4.500 H < 0.4 mmol/L Assessment/Plan Assessment/Plan Assessment Diabetic ketoacidosis Acute kidney injury Noncompliant Plan Admit the patient to ICU to the hospitalist DKA protocol Continue treatment per orders Plan discussed with: Patient My Orders Orders - AMY PIERRE Procedure Category Date Status Time Admit ADMIT 12/02/24 Transmitted 19:46 Ondansetron Hcl PHA 12/02/24 In Process (Zofran) 20:00 Complete Blood Count LAB 12/03/24 Verified 04:00 Comprehensive LAB 5/13/25 Verified Metabolic Panel 04:00 Condition: Stable [facility] 12/02/24 In Process 19:46 Bedrest With Bathroom [facility] 12/02/24 In Process Privileg 19:46 Nitroglycerin [facility] 12/02/24 In Process Sublingual (Ntrostat 20:00 Morphine Sulfate [facility] 12/02/24 In Process Injection 20:00 Stat Ekg For Chest [facility] 12/02/24 In Process Pain 19:46 Notify Md Of Changes [facility] 12/02/24 In Process From Base 19:46 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
[2024-12-03] VITALS (43 sets, daily range): BP systolic 116–173; BP diastolic 57–111; PULSE 97–119; RESP 7–25; TEMP 97.3–98.1; O2SAT 95–100
[2024-12-03] MEDS: SODIUM CHLORIDE 0.9% 1,000 ML IV SCH ×2 (01:28→16:00)
[2024-12-03 01:40] LABS: Chloride 106 mmol/L (98-107)
[2024-12-03 01:41] LABS: Anion Gap 24 (5-15)
[2024-12-03 01:44] LABS: Calcium 6.7 mg/dL (8.7-10.4); Carbon Dioxide 20 mmol/L (20-31); Potassium 3.4 mmol/L (3.5-5.1); Sodium 150 mmol/L (136-145)
[2024-12-03] MEDS: ONDANSETRON HCL 4 MG/2 ML VIAL IV PRN ×2 (01:45→19:57)
[2024-12-03 01:53] LABS: Blood Urea Nitrogen 47 mg/dL (9-23); Glucose 156 mg/dL (74-106)
[2024-12-03] MEDS: HYDROcodone-ACET 5/325MG TAB PO ONE (03:00)
[2024-12-03] MEDS: CALCIUM GLUC 1,000mg/50ml-NS 50 ML IV ONE (03:00)
[2024-12-03 03:17] LABS: Urine Bacteria FEW /hpf (None Seen); Urine Blood Negative /uL (Negative); Urine Clarity Clear (Clear); Urine Color Light-Yellow (Yellow); Urine Hyaline Cast FEW /lpf (0 - 2); Urine Protein, UAD 2+ (Negative); Urine Specific Gravity 1.014 (1.001-1.035); Urine Squamous Epithelial Cell FEW /hpf (<5); Urine Urobilinogen Normal (Negative); Urine WBC < 1 /HPF (0-3)
[2024-12-03 03:39] LABS: Amphetamine Screen, Urine Neg (NEGATIVE); Barbiturate Scree,Urine Neg (NEGATIVE); Benzodiazephine Screen, Urine Neg (NEGATIVE); Cannabinoid Screen, Urine Pos (NEGATIVE); Cocaine Screen, Urine Neg (NEGATIVE); Opiate Scree,Urine Neg (NEGATIVE); Phencyclidine Screen, Urine Neg (NEGATIVE)
[2024-12-03] MEDS: D5W/SOD CHL 0.45%/KCL 20MEQ 1,000 ML IV SCH (03:45)
[2024-12-03] MEDS ORDERED: DEXTROSE (50%) 50ML SYRG IV PRN (03:45)
[2024-12-03] MEDS: INSULIN DRIP 100 UNIT/100ML 100 ML IV SCH (03:45)
[2024-12-03] MEDS: INSULIN LANTUS (GLARGINE) 1 /0.01ml (100units/ml) SC ONE (03:59)
[2024-12-03 07:33] LABS: Alanine Aminotransferase 24 U/L (7-40); Anion Gap 15 (5-15); Aspartate Aminotransferase 20 U/L (13-40); BUN/Creatinine Ratio 20.4 (10.0-20.0); Carbon Dioxide 25 mmol/L (20-31); Glucose 87 mg/dL (74-106)
[2024-12-03 07:34] LABS: Albumin 2.8 g/dL (3.2-4.8); Alkaline Phosphatase 174 U/L (46-116); Bilirubin, Total < 0.2 mg/dL (0.2-1.0); Blood Urea Nitrogen 40 mg/dL (9-23); Calcium 7.6 mg/dL (8.7-10.4); Chloride 109 mmol/L (98-107); Potassium 3.2 mmol/L (3.5-5.1); Sodium 149 mmol/L (136-145); Total Protein 4.7 g/dL (5.7-8.2)
[2024-12-03] MEDS ORDERED: INSULIN LANTUS (GLARGINE) 1 /0.01ml (100units/ml) SC SCH (10:00)
[2024-12-03] MEDS: PANTOPRAZOLE 40 MG/10 ML VIAL INJ IV ONE (10:41)
[2024-12-03] MEDS: POTASSIUM CHL 20MEQ/100ML 100 ML IV SCH (10:41)
[2024-12-03 10:47] LABS: Chloride 105 mmol/L (98-107); Sodium 142 mmol/L (136-145)
[2024-12-03 10:48] LABS: Anion Gap 12 (5-15); Carbon Dioxide 25 mmol/L (20-31)
[2024-12-03 10:52] LABS: Calcium 7.5 mg/dL (8.7-10.4); Potassium 3.2 mmol/L (3.5-5.1)
[2024-12-03 10:53] LABS: BUN/Creatinine Ratio 15.3 (10.0-20.0); Blood Urea Nitrogen 25 mg/dL (9-23); Glucose 87 mg/dL (74-106)
[2024-12-03 11:32] LABS: Hemoglobin 8.6 g/dL (13.5-17.5)
[2024-12-03 11:34] LABS: Hematocrit 28.3 % (41.0-53.0); Mean Corpuscular Hemoglobin 23.4 pg (28.0-32.0); Mean Corpuscular Hgb Conc. 30.5 g/dL (32.0-36.0); Mean Corpuscular Volume 76.5 fL (80.0-100.0); Platelet Count (auto) 357 10^3/uL (140-450); Red Cell Distribution Width 18.8 % (11.8-14.3); White Blood Cell 18.9 10^3/uL (4.4-10.8)
[2024-12-03 11:36] LABS: Basophils % (manual) 0 (0.0-2.0); Blast Cells 0; Eosinophils % (manual) 0 (0-7); Metamyelocytes % 0; Myelocytes % 0; Promyelocytes % 0; Reactive Lymphocytes 0
[2024-12-03] MEDS: ACCU-CHEK COMFORT CURVE STRIP VI SCH (11:50)
[2024-12-03] MEDS: InsuLIN REG 1unit/0.01ml Soln (100units/ml) SC SCH (11:51)
[2024-12-03 12:56] LABS: Anisocytosis Slight; Band Neutrophils % (manual) 1; Hypochromia Moderate; Lymphocytes % (manual) 13 (10.0-50.0); Monocytes % (manual) 6 (0-12); Platelet Estimate Adequate
[2024-12-03] MEDS: ENSURE CLEAR Apple 8oz Carton PO SCH (13:00)
[2024-12-03 13:01] LABS: Chloride 104 mmol/L (98-107); Sodium 142 mmol/L (136-145)
[2024-12-03 13:02] LABS: Anion Gap 11 (5-15); Carbon Dioxide 27 mmol/L (20-31)
[2024-12-03 13:07] LABS: BUN/Creatinine Ratio 18.4 (10.0-20.0); Glucose 86 mg/dL (74-106)
[2024-12-03 13:09] LABS: Blood Urea Nitrogen 28 mg/dL (9-23); Calcium 7.4 mg/dL (8.7-10.4); Potassium 3.5 mmol/L (3.5-5.1)
--- NOTE | 2024-12-03 15:36 | DVH ---
CLINICAL INFORMATION: 44 years old, Male; Rule out osteomyelitis. Not specified where in the left lo wer extremity there is concern for osteomyelitis. TECHNIQUE: Axial CT images of the left lower extremity from the left hip through the foot were obtai phil without IV contrast. Coronal and sagittal reformatted images were obtained, reviewed, and stored. All CT scans at this medical facility are performed using dose modulation techniques as appropriate to a performed exam including the following: Automated exposure control was utilized; adjustment of the MA and/or KV according to patient size; and use of iterative reconstruction technique. CTDIvol = 7.79, 7.78, 0.07, 0.07 mGy DLP = 1814.76 mGy-cm COMPARISON: None FINDINGS: No evidence of acute fracture. No erosive changes or cortical destruction are seen in the v isualized osseous structures of the left lower extremity. The bones are diffusely demineralized, limi ting evaluation. No soft tissue fluid collection identified on noncontrast enhanced CT. Dense arteria l calcification noted. IMPRESSION: 1. No acute osseous abnormality identified. No CT evidence is seen for osteomyelitis in the left lowe r extremity osseous structures. Correlate with clinical findings. If there is a focal area of suspic ion for osteomyelitis, dedicated MRI of the location could be considered. 2. No obvious soft tissue fluid collection or other acute soft tissue abnormality identified. Correl ate with clinical findings.
--- NOTE | 2024-12-03 15:57 | DVH ---
CLINICAL INFORMATION: Osteomyelitis TECHNIQUE: Axial CT images of the right lower extremity from just above the level of the right hip th rough the right foot were obtained without IV contrast. Coronal and sagittal reformatted images were obtained, reviewed, and stored. All CT scans at this medical facility are performed using dose modul ation techniques as appropriate to a performed exam including the following: Automated exposure contr ol was utilized; adjustment of the MA and/or KV according to patient size; and use of iterative recon struction technique. CTDIvol = 7.79, 7.78, 0.07, 0.07 mGy DLP = 1814.76 mGy-cm COMPARISON: None FINDINGS: No acute fracture. No erosive changes or cortical destruction are seen. No definite CT evid ence for osteomyelitis visualized likely Moderate arthritic changes of the 5th MTP joint with joint s pace narrowing and sclerosis. The bones are diffusely demineralized, limiting evaluation. No focal so ft tissue fluid collection identified. Prominent right inguinal lymph nodes, with the largest measuri ng up to 1.8 x 1.1 cm, with normal reniform shape and fatty mary ellen. Mildly prominent right external cruz ac lymph nodes also noted. Dense arterial calcification visualized. The bladder appears moderately to markedly distended. IMPRESSION: 1. No CT evidence of acute osseous abnormality. 2. No erosive changes or cortical destruction identified in the right lower extremity to suggest oste omyelitis, although correlation with clinical findings is needed. If there is a focal area of clinica l concern for osteomyelitis in the right lower extremity, dedicated MRI of that location could be con sidered. 3. Prominent right inguinal lymph nodes and external iliac lymph nodes, most likely reactive. Correla te with clinical findings. 4. Moderately to markedly distended bladder. Correlate with clinical findings.
[2024-12-03 16:23] LABS: Magnesium 1.7 mg/dL (1.6-2.6)
[2024-12-03 16:33] LABS: Phosphorus 2.2 mg/dL (2.4-5.1)
--- NOTE | 2024-12-03 17:30 | DVH ---
CHEST RADIOGRAPH Indication: Rule out aspiration PNA Technique: Single frontal view of the chest was obtained Comparison: None FINDINGS: The cardiac silhouette is unremarkable. The lungs demonstrate left basilar airspace opacities. The pu lmonary vasculature is unremarkable. There is no pleural effusion.. There is no pneumothorax. Aortic atherosclerotic disease. 3 mm right lower lobe calcified nodule, consistent with remote granulomatou s disease. Mild thoracic dextrocurvature. IMPRESSION: 1. As above << >>
--- NOTE | 2024-12-03 17:42 | DVH ---
Indication: Rule out PAD Technique: Real- time ultrasound images of the bilateral lower extremity with grayscale, color, and spectral wave Doppler. Comparison: None Findings: Triphasic waveforms in the right [employer], SFA. Monophasic waveform in the right dorsalis pedis artery. T riphasic waveforms in the left [employer], SFA, posterior tibial and dorsalis pedis arteries. There is mild atherosclerotic calcification disease. Peak systolic velocities are as follows (in cm/s): Right: Common femoral artery: 138 Profunda femoris: 92 Proximal superficial femoral: 119 Mid superficial femoral artery: 147 Distal superficial femoral artery: 125 Popliteal artery: 114 Posterior tibial artery: 105 Dorsalis pedis artery: 39 Left: Common femoral artery: 114 Profunda femoris: 88 Proximal superficial femoral: 103 Mid superficial femoral artery: 121 Distal superficial femoral artery: 125 Popliteal artery: 108 Posterior tibial artery: 73 Dorsalis pedis artery: 48 Impression: 1. Monophasic waveform right dorsalis pedis artery may indicate hemodynamically significant stenosis.
--- NOTE | 2024-12-03 19:17 | DVHPNRES ---
Progress Note Date Seen: December 03, 2024 Resident Creating Document: NGA GARCIA RESIDENT Medical Necessity Reason Pt with a Central, PICC or Fol: No Subjective Review of Systems This is a 44 years old male with past medical history of type 2 diabetes mellitus, gastroparesis, cannabinoids abuse disorder, presented to the ED with a chief complaint of generalized weakness with associated poor appetite, abdominal pain, nausea and vomiting for last 2 weeks prior to this admission. The patient also the patient states that for last 1 week he was not able to eat or drink because of nausea and vomiting and also he was not taking any insulin for last 2 weeks . He had frequent admission in the hospital for DKA and the last admission was October,.He also complains of abdominal pain which is epigastric in nature , 8/10 localized and associated with nausea and vomiting. He denies fever, chills, chest pain, shortness of breath, dysuria, hematuria or any altered bowel habit. On admission the patient was tachypneic, tachycardic, blood sugar was more than 600 ,anion gap was 35, elevated beta hydroxybutyric acid. Patient was admitted for evaluation and management of DKA. The patient was seen and examined on the bedside. He is alert, oriented x3. Complaint of stomach pain and nausea. No other active complaint. Constitutional: Weakness, No: Fever, Chills, Sweats, Malaise, Other Eyes: No: Pain, Vision change, Conjunctivae inflammation, Eyelid inflammation, Other, Redness ENT: No: Ear pain, Ear discharge, Nose pain, Nose discharge, Nose congestion, Mouth pain, Mouth swelling, Throat pain, Throat swelling, Other Respiratory: Shortness of breath, improving No: Cough, Dry,Wheezing, Hemoptysis, Pleuritic Pain, Sputum, Wheezing, Other Cardiovascular: No: Chest Pain, Palpitations, Orthopnea, Paroxysmal Noc. Dyspnea, Edema, Lt Headedness, Other Gastrointestinal: Nausea, Vomiting, Abdominal Pain, No Diarrhea, Constipation, Melena, Hematochezia, Other Musculoskeletal: No: other, neck pain, shoulder pain, arm pain, back pain, hand pain, leg pain, foot pain Neurological:; No: Weakness, Numbness, Incoordination, Change in speech, Confusion, Seizures Objective vital signs Vital Sign Date Time Temp Pulse Resp B/P (MAP) Pulse Ox O2 Delivery O2 Flow Rate FiO2 5/13/25 18:00 12 97 Room Air* 0 21 12/03/24 18:00 99 12/03/24 18:00 124/73 (90) 12/03/24 16:00 97.9 97.9 Total Intake and Output 12/02/24 12/02/24 12/03/24 15:00 23:00 07:00 Intake Total 1518 ml 968 ml Output Total 1000 ml Balance 1518 ml -32 ml medications Current Medications Medications Dose Ordered Sig/Zaria Route Start Time Stop Time Status Last Admin Dose Admin Insulin Glargine 15 units DAILY SC 12/04/24 10:00 Pantoprazole Sodium 40 mg DAILY IV 12/04/24 10:00 Ondansetron HCl 4 mg Q4HPRN PRN IV 12/03/24 10:15 Diagnostic Test (Pha) 1 strip IQ4HR 12/03/24 12:00 12/03/24 16:02 1 STRIP Insulin Human Regular IQ4HR SC 12/03/24 12:00 Dextrose 50 ml UD PRN IV 12/03/24 10:15 Enteral Nutritional Formula 240 ml TIDWM PO 12/03/24 12:00 12/03/24 16:34 240 ML Sodium Chloride 1,000 ml @ 100 mls/hr Q10H IV 12/03/24 15:45 12/03/24 16:00 100 MLS/HR Examination Physical examination: General Appearance: Alert, Oriented X3, Cooperative, No acute distress HEENT: Atraumatic, PERRLA, EOMI, Mucous membrane moist/pink Respiratory: Clear to auscultation, Normal air movement Cardiovascular: Regular rate, Normal S1, Normal S2, No murmurs, no chest wall tenderness Abdominal: Normal bowel sounds, Soft, mild tenderness in the epigastric region, No hepatospenomegaly, No masses Extremities: No clubbing, No cyanosis, No edema, Normal pulses, No tenderness/swelling Skin: Bilateral dry scabbed skin lesion involved both feet and also involved lower part of ankles, No rashes, No breakdown, No significant lesion Neuro: Normal speech, Strength at 5/5 X4 ext, Normal tone, Sensation intact, Cranial nerves 3-12 NL, Reflexes 2+ Psych/Mental Status: Mental status NL, Mood NL Physical examination: laboratory and microbiology Laboratory Tests 12/03/24 12:30 12/03/24 11:15 Test 12/03/24 12:30 Range/Units Serum Glucose 86 74-106 mg/dL Microbiology Date/Time Source Procedure Growth Status 12/03/24 01:13 Nose MRSA Screen - Final Complete Labs and/or images reviewed: Labs reviewed by me, Image(s) reviewed by me Problem List/Assessment/Plan Problem List/Assessment/Plan Assessment and plan: # Diabetic ketoacidosis - Initially patient was in presented with blood sugar more than 600, high anion gap, elevated beta hydroxybutyric acid - patient was given 3 L IV bolus fluid and insulin drip as per protocol until the gap closed - BMP x2 revealed normal anion gap and potassium - IV normal saline 1000 mL at 100 mL/hours - Consistent carbohydrate diet - Lantus 15 units SC daily - Mild sliding scale of insulin - Downgraded to telemetry - Monitor BMP # RADHA likely hemodynamically mediated/VMN - IV normal saline 1000 mL at 100 mL/hours - Monitor BMP # Possible PAD on the rt side - Arterial duplex revealed Monophasic waveform right dorsalis pedis artery may indicate hemodynamically significant stenosis. # Hypophosphatemia - Possibly due to refeeding syndrome # History of hiatal hernia and erosive esophagitis - Protonix 40 mg IV daily. # Xerosis of the skin of the feet bilaterally # Moderate protein calorie malnutrition, BMI 17.9 kg/m2 - Albumin 2.8 - counseled patient regarding healthy nutritious diet and lifestyle modification. # DVT prophylaxis - Lovenox 40 mg sc daily. Goal of care discussed with the patient for more than 20 minutes full code Plan discussed with Dr. Dan Plan discussed with: Patient, Other My Orders My Orders Orders - NGA GARCIA Procedure Category Date Status Time Left Lower Extremity CT 12/03/24 Resulted W/O Con 12:33 Transfer Orders XFER 12/03/24 Transmitted 16:37 Dietary Evaluation Review Comments: [facility]. [facility] when medically feasible. 2. Consider Bryce for healing when RADHA resolved. Expected Outcomes/Goals: Gradual wt gain, controlled DM, healed wounds. Date of Service: December 03, 2024 Billing Provider: AMY DAN MD Common Visit Codes: [id number] INP/OBS CARE(HIGH) Secondary Visit Codes: [id number] CARE PLAN 30 MINUTES NGA GARCIA December 03, 2024 19:17 AMY DAN MD December 04, 2024 15:30
[2024-12-04] VITALS (15 sets, daily range): BP systolic 113–144; BP diastolic 64–86; PULSE 83–114; RESP 9–22; TEMP 97.7–98.4; O2SAT 94–100
[2024-12-04 04:23] LABS: Basophils # (auto) 0.2 10 ^3/uL (0-0.2); Eosinophils # (auto) 0.1 10 ^3/uL (0-0.8); Hematocrit 28.8 % (41.0-53.0); Mean Corpuscular Hgb Conc. 31.1 g/dL (32.0-36.0); Nucleated Red Blood Cells % 0.1 %
[2024-12-04 04:26] LABS: Basophils % (auto) 1.7 % (0.0-2.0); Eosinophils % (auto) 1.3 % (0.0-7.0); Lymphocytes # (auto) 1.8 10 ^3/uL (0.4-5.4); Lymphocytes % (auto) 18.3 % (10.0-50.0); Mean Corpuscular Hemoglobin 23.4 pg (28.0-32.0); Mean Corpuscular Volume 75.1 fL (80.0-100.0); Monocytes # (auto) 0.6 10 ^3/uL (0-1.3); Monocytes % (auto) 6.1 % (0.0-12.0); Neutrophils # (auto) 7.3 10 ^3/uL (1.6-8.6); Neutrophils % (auto) 72.6 % (37.0-80.0); Platelet Count (auto) 361 10^3/uL (140-450); Red Blood Cells 3.83 10^6/uL (4.5-5.90)
[2024-12-04 04:37] LABS: Anion Gap 12 (5-15); Carbon Dioxide 25 mmol/L (20-31); Chloride 105 mmol/L (98-107); Sodium 142 mmol/L (136-145)
[2024-12-04 04:43] LABS: BUN/Creatinine Ratio 10.9 (10.0-20.0); Blood Urea Nitrogen 14 mg/dL (9-23)
[2024-12-04 04:45] LABS: Calcium 7.3 mg/dL (8.7-10.4); Glucose 112 mg/dL (74-106); Potassium 3.1 mmol/L (3.5-5.1)
[2024-12-04] MEDS: POTASSIUM CHL 20MEQ/100ML 100 ML IV ONE (06:04)
[2024-12-04] MEDS: LOPERAMIDE HCL 2 MG CAP/TAB PO ONE (10:08)
[2024-12-04] MEDS: POTASSIUM EFFERVESENT TAB 25 MEQ PO ONE (10:19)
[2024-12-04] MEDS: PANTOPRAZOLE 40 MG/10 ML VIAL INJ IV SCH (10:20)
[2024-12-04] MEDS: INSULIN LANTUS (GLARGINE) 1 /0.01ml (100units/ml) SC SCH (10:22)
[2024-12-04] MEDS: InsuLIN REG 1unit/0.01ml Soln (100units/ml) SC SCH (12:00)
[2024-12-04] MEDS: ACCU-CHEK COMFORT CURVE STRIP VI SCH (12:00)
[2024-12-04] MEDS: Glucerna Carbsteady SHAKE Vanilla 8oz PO SCH (18:21)
[2024-12-04] MEDS: METOCLOPRAMIDE HCL 10 MG TAB PO SCH (18:29)
--- NOTE | 2024-12-04 19:35 | DVHPNRES ---
Progress Note Date Seen: December 04, 2024 Resident Creating Document: NGA GARCIA RESIDENT Medical Necessity Reason Pt with a Central, PICC or Fol: No Subjective Review of Systems This is a 44 years old male with past medical history of type 2 diabetes mellitus, gastroparesis, cannabinoids abuse disorder, presented to the ED with a chief complaint of generalized weakness with associated poor appetite, abdominal pain, nausea and vomiting for last 2 weeks prior to this admission. The patient also the patient states that for last 1 week he was not able to eat or drink because of nausea and vomiting and also he was not taking any insulin for last 2 weeks . He had frequent admission in the hospital for DKA and the last admission was October,.He also complains of abdominal pain which is epigastric in nature , 8/10 localized and associated with nausea and vomiting. He denies fever, chills, chest pain, shortness of breath, dysuria, hematuria or any altered bowel habit. On admission the patient was tachypneic, tachycardic, blood sugar was more than 600 ,anion gap was 35, elevated beta hydroxybutyric acid. Patient was admitted for evaluation and management of DKA. The patient was seen and examined on the bedside. He is alert, oriented x3. Complaint of stomach pain and nausea. No other active complaint. Objective vital signs Vital Sign Date Time Temp Pulse Resp B/P (MAP) Pulse Ox O2 Delivery O2 Flow Rate FiO2 12/04/24 16:37 98.3 83 20 144/82 (102) 94 98.3 12/04/24 10:00 Room Air* 0 21 Total Intake and Output 12/03/24 12/03/24 12/04/24 15:00 23:00 07:00 Intake Total 1730 ml 1355 ml 1000 ml Output Total 3700 ml 1000 ml Balance 1730 ml -2345 ml 0 ml medications Current Medications Medications Dose Ordered Sig/Zaria Route Start Time Stop Time Status Last Admin Dose Admin Insulin Glargine 15 units DAILY SC 12/04/24 10:00 12/04/24 10:22 15 UNITS Pantoprazole Sodium 40 mg DAILY IV 12/04/24 10:00 12/04/24 10:20 40 MG Ondansetron HCl 4 mg Q4HPRN PRN IV 12/03/24 10:15 12/04/24 08:55 4 MG Dextrose 50 ml UD PRN IV 12/03/24 10:15 Sodium Chloride 1,000 ml @ 100 mls/hr Q10H IV 12/03/24 15:45 12/04/24 15:15 100 MLS/HR Insulin Human Regular Q6HR SC 12/04/24 12:00 12/04/24 12:00 3 UNITS Diagnostic Test (Pha) 1 strip Q6HR 12/04/24 12:00 12/04/24 17:39 1 STRIP Metoclopramide HCl 5 mg ACHS PO 12/04/24 17:00 12/04/24 18:29 5 MG Enteral Nutritional Formula 240 ml TIDWM PO 12/04/24 18:00 12/04/24 18:21 240 ML Examination Physical examination: General Appearance: Alert, Oriented X3, Cooperative, No acute distress HEENT: Atraumatic, PERRLA, EOMI, Mucous membrane moist/pink Respiratory: Clear to auscultation, Normal air movement Cardiovascular: Regular rate, Normal S1, Normal S2, No murmurs, no chest wall tenderness Abdominal: Normal bowel sounds, Soft, mild tenderness in the epigastric region, No hepatospenomegaly, No masses Extremities: No clubbing, No cyanosis, No edema, Normal pulses, No tenderness/swelling Skin: Bilateral dry scabbed skin lesion involved both feet and also involved lower part of ankles, No rashes, No breakdown, No significant lesion Neuro: Normal speech, Strength at 5/5 X4 ext, Normal tone, Sensation intact, Cranial nerves 3-12 NL, Reflexes 2+ Psych/Mental Status: Mental status NL, Mood NL laboratory and microbiology Laboratory Tests 12/04/24 03:48 Test 12/04/24 03:48 Range/Units Serum Glucose 112 H 74-106 mg/dL Microbiology Date/Time Source Procedure Growth Status 12/03/24 01:13 Nose MRSA Screen - Final Complete Labs and/or images reviewed: Labs reviewed by me, Image(s) reviewed by me Problem List/Assessment/Plan Problem List/Assessment/Plan Assessment and plan: # Diabetic ketoacidosis - Initially patient was in presented with blood sugar more than 600, high anion gap, elevated beta hydroxybutyric acid - patient was given 3 L IV bolus fluid and insulin drip as per protocol until the gap closed - BMP x2 revealed normal anion gap and potassium - IV normal saline 1000 mL at 75 mL/hours - Consistent carbohydrate diet - Lantus 15 units SC daily - Mild sliding scale of insulin - Downgraded to telemetry - Monitor BMP # RADHA likely hemodynamically mediated/VMN - IV normal saline at 75 mL/hours - Monitor BMP # Possible PAD on the rt side - Arterial duplex revealed Monophasic waveform right dorsalis pedis artery may indicate hemodynamically significant stenosis. # Hypophosphatemia - Possibly due to refeeding syndrome # History of hiatal hernia and erosive esophagitis - Protonix 40 mg IV daily. # Xerosis of the skin of the feet bilaterally # Moderate protein calorie malnutrition, BMI 17.9 kg/m2 - Albumin 2.8 - counseled patient regarding healthy nutritious diet and lifestyle modification. # DVT prophylaxis - Lovenox 40 mg sc daily. Goal of care discussed with the patient for more than 20 minutes full code Plan discussed with Dr. Dan Plan discussed with: Patient, Other My Orders My Orders Orders - NGA GARCIA Procedure Category Date Status Time Insulin R (Human) PHA 12/04/24 In Process (Insulin R) 12:00 Glucose Blood PHA 12/04/24 In Process (Accu-Chek Comfort 12:00 Metoclopramide Tablet PHA 12/04/24 In Process (Reglan Tablet) 17:00 Nutritional PHA 12/04/24 In Process Supplements (Glucerna 18:00 Pt Request For Service PT 12/04/24 Logged 15:54 Dietary Evaluation Review Comments: 1. Advance to [facility]-60 diet when medically feasible. 2. Consider Bryce for healing when RADHA resolved. Expected Outcomes/Goals: Gradual wt gain, controlled DM, healed wounds. Date of Service: December 04, 2024 Billing Provider: AMY DAN MD Common Visit Codes: [id number] INP/OBS CARE(HIGH) Secondary Visit Codes: [id number] CARE PLAN 30 MINUTES NGA GARCIA December 04, 2024 19:35 AMY DAN MD December 05, 2024 12:03
[2024-12-04] MEDS: SODIUM CHLORIDE 0.9% 1,000 ML IV SCH (19:45)
[2024-12-04] MEDS: PANTOPRAZOLE 40 MG/10 ML VIAL INJ IV ONE (22:52)
[2024-12-04] MEDS: KETOROLAC TROMETH 30 MG/ML 1ML VIAL IV ONE (22:53)
[2024-12-05] VITALS (7 sets, daily range): BP systolic 112–146; BP diastolic 60–92; PULSE 72–111; RESP 10–19; TEMP 97.7–98.8; O2SAT 96–100
[2024-12-05 06:53] LABS: Chloride 106 mmol/L (98-107); Sodium 142 mmol/L (136-145)
[2024-12-05 06:54] LABS: Anion Gap 12 (5-15); Carbon Dioxide 24 mmol/L (20-31)
[2024-12-05 06:59] LABS: BUN/Creatinine Ratio 11.6 (10.0-20.0); Blood Urea Nitrogen 13 mg/dL (9-23)
[2024-12-05 07:05] LABS: Calcium 7.4 mg/dL (8.7-10.4); Glucose 116 mg/dL (74-106); Potassium 3.2 mmol/L (3.5-5.1)
[2024-12-05] MEDS: POTASSIUM EFFERVESENT TAB 25 MEQ PO ONE (08:50)
--- NOTE | 2024-12-05 18:24 | DVHINCON2 ---
Date of service: December 05, [address] Montano Reason for Consultation Abdominal pain nausea anorexia unable to keep anything down History of Present Illness This 44-year-old male presented to the emergency room with complaints of abdominal pain with history of not able to keep anything down nausea anorexia as well as horribly poor appetite. Blood pressure has been high has got type 1 diabetes. Past Medical History Diabetes type 1 Past Surgical History None Family History: Alzheimer's disease Grandparent Arthritis G8 MOTHER Diabetes mellitus G8 FATHER Family History Noncontributory Social History History of smoking weed No drinking Allergies: Coded Allergies: NO KNOWN ALLERGIES (Unverified , 02/01/23) Home Meds Reported Medications Metoclopramide Hcl (Metoclopramide Hcl) 5 Mg Tab, 1 TAB PO QID 10/19/23 Current Medications Current Medications Medications (Trade) Dose Ordered Sig/Zaria Route PRN Reason Start Time Stop Time Status Last Admin Sodium Chloride 1,000 ml @ 75 mls/hr [id number] IV 12/04/24 19:45 12/05/24 09:17 Pantoprazole Sodium (Protonix Tablet) 40 mg DAILY@0600 PO 12/06/24 06:00 Insulin Human Regular (InsuLIN R) ACHS SC 12/05/24 22:00 UNV Review of Systems Non contributory Vital Signs Vital Signs Date Time Temp Pulse Resp B/P (MAP) Pulse Ox O2 Delivery O2 Flow Rate FiO2 12/05/24 13:00 98.8 72 17 113/60 (77) 97 98.8 12/05/24 08:00 Room Air* 0 21 Physical Exam Thin built and nourished wasted male in no acute distress Chronically ill-looking Vitals signs stable HEENT examination no pallor no icterus Lungs are clear Cardiovascular exam unremarkable Abdomen is soft mild tenderness in the epigastrium no rigidity no guarding no masses bowel sounds normal Extremities no edema Neurological grossly intact Labs/Diagnostic Data Labs Test 12/05/24 15:17 12/05/24 05:50 12/04/24 03:48 12/03/24 12:30 Range/Units POC Glucose 63 L 70-106 mg/dl Sodium Level 142 136-145 mmol/L Potassium Level 3.2 L 3.5-5.1 mmol/L Chloride Level 106 98-107 mmol/L Carbon Dioxide Level 24 20-31 mmol/L Anion Gap 12 5-15 Blood Urea Nitrogen 13 9-23 mg/dL Creatinine 1.12 0.700-1.30 mg/dL Glomerular Filtration Rate Calc 83 >90 mL/min BUN/Creatinine Ratio 11.6 10.0-20.0 Serum Glucose 116 H 74-106 mg/dL Calcium Level 7.4 L 8.7-10.4 mg/dL White Blood Count 10.0 # 4.4-10.8 10^3/uL Red Blood Count 3.83 L 4.5-5.90 10^6/uL Hemoglobin 9.0 L 13.5-17.5 g/dL Hematocrit 28.8 L 41.0-53.0 % Mean Corpuscular Volume 75.1 L 80.0-100.0 fL Mean Corpuscular Hemoglobin 23.4 L 28.0-32.0 pg Mean Corpuscular Hemoglobin Concent 31.1 L 32.0-36.0 g/dL Red Cell Distribution Width 19.0 H 11.8-14.3 % Platelet Count 361 140-450 10^3/uL Mean Platelet Volume 7.3 6.9-10.8 fL Neutrophils (%) (Auto) 72.6 37.0-80.0 % Lymphocytes (%) (Auto) 18.3 10.0-50.0 % Monocytes (%) (Auto) 6.1 0.0-12.0 % Eosinophils (%) (Auto) 1.3 0.0-7.0 % Basophils (%) (Auto) 1.7 0.0-2.0 % Neutrophils # (Auto) 7.3 1.6-8.6 10 ^3/uL Lymphocytes # (Auto) 1.8 0.4-5.4 10 ^3/uL Monocytes # (Auto) 0.6 0-1.3 10 ^3/uL Eosinophils # (Auto) 0.1 0-0.8 10 ^3/uL Basophils # (Auto) 0.2 0-0.2 10 ^3/uL Nucleated Red Blood Cells 0.1 % Phosphorus Level 2.2 L 2.4-5.1 mg/dL Magnesium Level 1.7 1.6-2.6 mg/dL Test 12/03/24 11:15 12/03/24 06:18 12/03/24 01:30 12/02/24 13:41 Range/Units Differential Total Cells Counted 100.0 100 Neutrophils % (Manual) 80 37.0-80.0 Band Neutrophils % (Manual) 1 Lymphocytes % (Manual) 13 10.0-50.0 Monocytes % (Manual) 6 0-12 Eosinophils % (Manual) 0 0-7 Basophils % (Manual) 0 0.0-2.0 Metamyelocytes % (manual) 0 Myelocytes % (Manual) 0 Promyelocytes % (Manual) 0 Blast Cells % (Manual) 0 Reactive Lymphocytes 0 Platelet Estimate Adequate Hypochromasia (manual) Moderate Anisocytosis (manual) Slight Microcytosis Slight [place] Cells Few Schistocytes Few Total Bilirubin < 0.2 L 0.2-1.0 mg/dL Aspartate Amino Transferase (AST) 20 13-40 U/L Alanine Aminotransferase (ALT) 24 7-40 U/L Alkaline Phosphatase 174 H 46-116 U/L Total Protein 4.7 L 5.7-8.2 g/dL Albumin 2.8 L 3.2-4.8 g/dL Urine Color Light-yellow Yellow Urine Clarity Clear Clear Urine pH 6.0 5.0-9.0 Urine Specific [place] 1.014 1.001-1.035 Urine Protein 2+ H Negative Urine Ketones 3+ H Negative Urine Blood Negative Negative /uL Urine Nitrite Negative Negative Urine Bilirubin Negative Negative Urine Urobilinogen Normal Negative mg/dL Urine Leukocyte Esterase Negative Negative /uL Urine RBC <1 0 - 3 /hpf Urine Microscopic WBC < 1 0-3 /HPF Urine Squamous Epithelial Cells Few <5 /hpf Urine Bacteria Few H None Seen /hpf Urine Hyaline Casts Few 0 - 2 /lpf Urine Glucose 4+ H Normal mg/dL Urine Opiates Screen Neg NEGATIVE Urine Fentanyl Screen Neg NEGATIVE Urine Barbiturates Screen Neg NEGATIVE Urine Phencyclidine Screen Neg NEGATIVE Urine Amphetamines Screen Neg NEGATIVE Urine Benzodiazepines Screen Neg NEGATIVE Urine Cocaine Screen Neg NEGATIVE Urine Cannabinoids Screen Pos NEGATIVE Blood Gas Specimen Type Arterial Blood Gas Sample Site Left radial Blood Gas Patient Temperature 37.0 Arterial Blood Date Drawn [id number] Arterial Blood pH 7.360 7.350-7.450 Arterial Blood Partial Pressure CO2 23.9 L 35.0-48.0 mmHg Arterial Blood Partial Pressure O2 99.9 83.0-108.0 mmHg Arterial Blood HCO3 13.2 L 21.0-28.0 mmol/L Arterial Blood Oxygen Saturation 96.8 94.0-98.0 % Arterial Blood Base Excess -10.6 L -2.0-3.0 mmol/L Arterial Blood Oxyhemoglobin 95.9 94.0-98.0 % Arterial Blood Carboxyhemoglobin 0.3 L 0.5-1.5 % Arterial Blood Methemoglobin 0.6 0.0-1.5 % Kyle Test Yes Blood Gas Total Hemoglobin 11.30 L 13.5-17.5 g/dL Blood Gas Modality Room air FiO2 % 21.0 Test 12/02/24 13:39 Range/Units Serum Osmolality 350 H 278-298 mOsm/kg Beta-Hydroxybutyric Acid > 4.500 H < 0.4 mmol/L Microbiology Date/Time Source Procedure Growth Status 12/03/24 01:13 Nose MRSA Screen - Final Complete Assessment 44-year-old with complaints of abdominal pain nausea anorexia unable to keep anything down complaints of weakness some weight loss chronically anorectic now with a history of type 1 diabetes Physical examination showed some mild tenderness otherwise unremarkable extremely thin built and wasted Clinical impression Possible gastritis possible gastroparesis definite diabetes possible ulcer disease candidiasis or other GI pathology can not be excluded Plan/Recommendation will recommend a lipase level We will recommend EGD evaluation and further workup and treatment depending upon the findings Thank you Procedure risks benefits alternatives explained to the patient and agreeable for the same Dr. Galaviz Plan discussed with: Patient SIVA GALAVIZ MD December 05, 2024 18:24
--- NOTE | 2024-12-05 19:18 | DVHPNRES ---
Progress Note Date Seen: December 05, 2024 Resident Creating Document: NGA GARCIA RESIDENT Medical Necessity Reason Pt with a Central, PICC or Fol: No Subjective Review of Systems This is a 44 years old male with past medical history of type 2 diabetes mellitus, gastroparesis, cannabinoids abuse disorder, presented to the ED with a chief complaint of generalized weakness with associated poor appetite, abdominal pain, nausea and vomiting for last 2 weeks prior to this admission. The patient also the patient states that for last 1 week he was not able to eat or drink because of nausea and vomiting and also he was not taking any insulin for last 2 weeks . He had frequent admission in the hospital for DKA and the last admission was October,.He also complains of abdominal pain which is epigastric in nature , 8/10 localized and associated with nausea and vomiting. He denies fever, chills, chest pain, shortness of breath, dysuria, hematuria or any altered bowel habit. On admission the patient was tachypneic, tachycardic, blood sugar was more than 600 ,anion gap was 35, elevated beta hydroxybutyric acid. Patient was admitted for evaluation and management of DKA. The patient was seen and examined on the bedside. He is alert, oriented x3. Complaint of stomach pain and nausea. No other active complaint. Consulted GI for further evaluation and management of gastroparesis. Objective vital signs Vital Sign Date Time Temp Pulse Resp B/P (MAP) Pulse Ox O2 Delivery O2 Flow Rate FiO2 12/05/24 17:00 97.8 94 19 120/83 (95) 99 97.8 12/05/24 08:00 Room Air* 0 21 Total Intake and Output 12/04/24 12/04/24 12/05/24 15:00 23:00 07:00 Intake Total 520 ml 0 ml 677 ml Output Total 500 ml 500 ml Balance 520 ml -500 ml 177 ml medications Current Medications Medications Dose Ordered Sig/Zaria Route Start Time Stop Time Status Last Admin Dose Admin Insulin Glargine 15 units DAILY SC 12/04/24 10:00 12/05/24 09:32 15 UNITS Ondansetron HCl 4 mg Q4HPRN PRN IV 12/03/24 10:15 12/04/24 08:55 4 MG Dextrose 50 ml UD PRN IV 12/03/24 10:15 Diagnostic Test (Pha) 1 strip Q6HR 12/04/24 12:00 12/05/24 17:41 1 STRIP Metoclopramide HCl 5 mg ACHS PO 12/04/24 17:00 12/05/24 17:19 5 MG Enteral Nutritional Formula 240 ml TIDWM PO 12/04/24 18:00 12/05/24 17:41 240 ML Sodium Chloride 1,000 ml @ 75 mls/hr [id number] IV 12/04/24 19:45 12/05/24 09:17 75 MLS/HR Pantoprazole Sodium 40 mg DAILY@0600 PO 12/06/24 06:00 Insulin Human Regular ACHS SC 12/05/24 22:00 Examination Physical examination: General Appearance: Alert, Oriented X3, Cooperative, No acute distress HEENT: Atraumatic, PERRLA, EOMI, Mucous membrane moist/pink Respiratory: Clear to auscultation, Normal air movement Cardiovascular: Regular rate, Normal S1, Normal S2, No murmurs, no chest wall tenderness Abdominal: Normal bowel sounds, Soft, mild tenderness in the epigastric region, No hepatospenomegaly, No masses Extremities: No clubbing, No cyanosis, No edema, Normal pulses, No tenderness/swelling Skin: Bilateral dry scabbed skin lesion involved both feet and also involved lower part of ankles, No rashes, No breakdown, No significant lesion Neuro: Normal speech, Strength at 5/5 X4 ext, Normal tone, Sensation intact, Cranial nerves 3-12 NL, Reflexes 2+ Psych/Mental Status: Mental status NL, Mood NL laboratory and microbiology Laboratory Tests 12/05/24 05:50 12/04/24 03:48 Test 12/05/24 05:50 Range/Units Serum Glucose 116 H 74-106 mg/dL Microbiology Date/Time Source Procedure Growth Status 12/03/24 01:13 Nose MRSA Screen - Final Complete Labs and/or images reviewed: Labs reviewed by me, Image(s) reviewed by me Problem List/Assessment/Plan Problem List/Assessment/Plan Assessment and plan: # Diabetic ketoacidosis - Initially patient was in presented with blood sugar more than 600, high anion gap, elevated beta hydroxybutyric acid - patient was given 3 L IV bolus fluid and insulin drip as per protocol until the gap closed - BMP x2 revealed normal anion gap and potassium - IV normal saline 1000 mL at 75 mL/hours - Consistent carbohydrate diet - Lantus 15 units SC daily - Mild sliding scale of insulin - Downgraded to telemetry - Monitor BMP # History of gastroparesis - Metoclopramide 5 mg Q 8 hours - consulted GI for further evaluation and management of gastroparesis # RADHA likely hemodynamically mediated/VMN - IV normal saline at 75 mL/hours - Monitor BMP # Possible PAD on the rt side - Arterial duplex revealed Monophasic waveform right dorsalis pedis artery may indicate hemodynamically significant stenosis. # Hypophosphatemia - Possibly due to refeeding syndrome # History of hiatal hernia and erosive esophagitis - Protonix 40 mg IV daily. # Xerosis of the skin of the feet bilaterally # Moderate protein calorie malnutrition, BMI 17.9 kg/m2 - Albumin 2.8 - counseled patient regarding healthy nutritious diet and lifestyle modification. # DVT prophylaxis - Lovenox 40 mg sc daily. Goal of care discussed with the patient for more than 20 minutes full code Plan discussed with Dr. Dan Plan discussed with: Patient, Other My Orders My Orders Orders - NGA GARCIA Procedure Category Date Status Time Sodium Chloride 0.9% PHA 12/04/24 In Process 19:45 * Poker Dealer CONS 12/04/24 Transmitted Consult Discontinue Tele SATHYA 12/04/24 In Process 19:57 Transfer Orders XFER 12/04/24 Transmitted 19:57 Pantoprazole Tablet PHA 12/06/24 In Process (Protonix Tablet) 06:00 Insulin R (Human) PHA 12/05/24 In Process (Insulin R) 22:00 Dietary Evaluation Review Comments: 1. Advance to CCHO-60 diet when medically feasible. 2. Consider Bryce for healing when RADHA resolved. Expected Outcomes/Goals: Gradual wt gain, controlled DM, healed wounds. Date of Service: December 05, 2024 Billing Provider: AMY DAN MD Common Visit Codes: 22931-[id number] INP/OBS CARE(HIGH) Secondary Visit Codes: 40665-[id number] CARE PLAN 30 MINUTES NGA GARCIA December 05, 2024 19:18 AMY DAN MD December 07, 2024 22:31
[2024-12-05 20:25] LABS: INR 0.95 (0.9-1.15); Partial Thromboplastin Time 24.6 SEC (24.5-34.5); Prothrombin Time 10.1 sec (9.3-11.8)
[2024-12-05] MEDS: InsuLIN REG 1unit/0.01ml Soln (100units/ml) SC SCH (22:00)
[2024-12-06 01:00] VITALS: BP 116/79; PULSE 94; RESP 17; TEMP 98.8; O2SAT 97
[2024-12-06 05:00] VITALS: BP 116/79; PULSE 94; RESP 16; TEMP 98.2; O2SAT 99
[2024-12-06] MEDS: DEXTROSE (50%) 50ML SYRG IV PRN (05:36)
[2024-12-06] MEDS: PANTOPRAZOLE 40 MG TAB PO SCH (06:00)
[2024-12-06 07:14] LABS: Alanine Aminotransferase 18 U/L (7-40); Anion Gap 11 (5-15); Aspartate Aminotransferase 19 U/L (13-40); BUN/Creatinine Ratio 13.5 (10.0-20.0); Blood Urea Nitrogen 14 mg/dL (9-23); Carbon Dioxide 24 mmol/L (20-31); Glucose 81 mg/dL (74-106); Sodium 145 mmol/L (136-145)
[2024-12-06 07:15] LABS: Albumin 2.8 g/dL (3.2-4.8); Alkaline Phosphatase 150 U/L (46-116); Bilirubin, Total < 0.2 mg/dL (0.2-1.0); Calcium 6.9 mg/dL (8.7-10.4); Chloride 110 mmol/L (98-107); Potassium 3.3 mmol/L (3.5-5.1); Total Protein 4.7 g/dL (5.7-8.2)
[2024-12-06 07:19] LABS: Basophils # (auto) 0.1 10 ^3/uL (0-0.2); Eosinophils # (auto) 0.1 10 ^3/uL (0-0.8); Hemoglobin 9.5 g/dL (13.5-17.5); Lymphocytes # (auto) 1.6 10 ^3/uL (0.4-5.4); Mean Corpuscular Volume 76.1 fL (80.0-100.0); Monocytes # (auto) 0.4 10 ^3/uL (0-1.3); Neutrophils # (auto) 3.1 10 ^3/uL (1.6-8.6)
[2024-12-06 07:22] LABS: Basophils % (auto) 1.9 % (0.0-2.0); Eosinophils % (auto) 2.2 % (0.0-7.0); Hematocrit 31.2 % (41.0-53.0); Lymphocytes % (auto) 30.6 % (10.0-50.0); Mean Corpuscular Hemoglobin 23.3 pg (28.0-32.0); Mean Corpuscular Hgb Conc. 30.6 g/dL (32.0-36.0); Monocytes % (auto) 8.2 % (0.0-12.0); Neutrophils % (auto) 57.1 % (37.0-80.0); Nucleated Red Blood Cells % 0.2 %; Platelet Count (auto) 302 10^3/uL (140-450); Red Cell Distribution Width 19.2 % (11.8-14.3); White Blood Cell 5.4 10^3/uL (4.4-10.8)
[2024-12-06 08:00] VITALS: RESP 10; O2SAT 96
[2024-12-06 08:43] VITALS: BP 132/88; PULSE 90; RESP 17; TEMP 98.1; O2SAT 98
[2024-12-06] MEDS: MAGNESIUM OXIDE 400 MG TAB PO ONE (10:34)
[2024-12-06] MEDS: POTASSIUM EFFERVESENT TAB 25 MEQ PO ONE (10:35)
[2024-12-06 13:00] VITALS: BP 114/70; PULSE 88; RESP 17; TEMP 97.9; O2SAT 100
[2024-12-06] MEDS ORDERED: PANT40T PO (14:00)
[2024-12-06] MEDS ORDERED: METO5TAB67 PO (14:07)
--- NOTE | 2024-12-06 14:20 | DVHDSRES ---
Discharge Summary Date of Admission Resident Creating Document: NGA GARCIA RESIDENT December 02, 2024 at 19:46 Date of Discharge: December 06, 2024 Admitting Diagnosis Diabetic ketoacidosis Wounds: No open wound was present Labs/Diagnostic Data: Laboratory Results Test 12/06/24 11:16 12/06/24 06:24 12/05/24 19:57 12/05/24 05:50 POC Glucose 150 mg/dl (70-106) White Blood Count 5.4 10^3/uL (4.4-10.8) Red Blood Count 4.10 10^6/uL (4.5-5.90) Hemoglobin 9.5 g/dL (13.5-17.5) Hematocrit 31.2 % (41.0-53.0) Mean Corpuscular Volume 76.1 fL (80.0-100.0) Mean Corpuscular Hemoglobin 23.3 pg (28.0-32.0) Mean Corpuscular Hemoglobin Concent 30.6 g/dL (32.0-36.0) Red Cell Distribution Width 19.2 % (11.8-14.3) Platelet Count 302 10^3/uL (140-450) Mean Platelet Volume 7.0 fL (6.9-10.8) Neutrophils (%) (Auto) 57.1 % (37.0-80.0) Lymphocytes (%) (Auto) 30.6 % (10.0-50.0) Monocytes (%) (Auto) 8.2 % (0.0-12.0) Eosinophils (%) (Auto) 2.2 % (0.0-7.0) Basophils (%) (Auto) 1.9 % (0.0-2.0) Neutrophils # (Auto) 3.1 10 ^3/uL (1.6-8.6) Lymphocytes # (Auto) 1.6 10 ^3/uL (0.4-5.4) Monocytes # (Auto) 0.4 10 ^3/uL (0-1.3) Eosinophils # (Auto) 0.1 10 ^3/uL (0-0.8) Basophils # (Auto) 0.1 10 ^3/uL (0-0.2) Nucleated Red Blood Cells 0.2 % Sodium Level 145 mmol/L (136-145) Potassium Level 3.3 mmol/L (3.5-5.1) Chloride Level 110 mmol/L (98-107) Carbon Dioxide Level 24 mmol/L (20-31) Anion Gap 11 (5-15) Blood Urea Nitrogen 14 mg/dL (9-23) Creatinine 1.04 mg/dL (0.700-1.30) Glomerular Filtration Rate Calc 91 mL/min (>90) BUN/Creatinine Ratio 13.5 (10.0-20.0) Serum Glucose 81 mg/dL (74-106) Calcium Level 6.9 mg/dL (8.7-10.4) Total Bilirubin < 0.2 mg/dL (0.2-1.0) Aspartate Amino Transferase (AST) 19 U/L (13-40) Alanine Aminotransferase (ALT) 18 U/L (7-40) Alkaline Phosphatase 150 U/L (46-116) Total Protein 4.7 g/dL (5.7-8.2) Albumin 2.8 g/dL (3.2-4.8) Prothrombin Time 10.1 sec (9.3-11.8) Prothrombin Time INR 0.95 (0.9-1.15) Activated Partial Thromboplast Time 24.6 SEC (24.5-34.5) Lipase 32 U/L (12-53) Test 12/03/24 12:30 12/03/24 11:15 12/03/24 01:30 12/02/24 13:41 Phosphorus Level 2.2 mg/dL (2.4-5.1) Magnesium Level 1.7 mg/dL (1.6-2.6) Differential Total Cells Counted 100.0 (100) Neutrophils % (Manual) 80 (37.0-80.0) Band Neutrophils % (Manual) 1 Lymphocytes % (Manual) 13 (10.0-50.0) Monocytes % (Manual) 6 (0-12) Eosinophils % (Manual) 0 (0-7) Basophils % (Manual) 0 (0.0-2.0) Metamyelocytes % (manual) 0 Myelocytes % (Manual) 0 Promyelocytes % (Manual) 0 Blast Cells % (Manual) 0 Reactive Lymphocytes 0 Platelet Estimate Adequate Hypochromasia (manual) Moderate Anisocytosis (manual) Slight Microcytosis Slight [place] Cells Few Schistocytes Few Urine Color Light-yellow (Yellow) Urine Clarity Clear (Clear) Urine pH 6.0 (5.0-9.0) Urine Specific Morrice 1.014 (1.001-1.035) Urine Protein 2+ (Negative) Urine Ketones 3+ (Negative) Urine Blood Negative /uL (Negative) Urine Nitrite Negative (Negative) Urine Bilirubin Negative (Negative) Urine Urobilinogen Normal mg/dL (Negative) Urine Leukocyte Esterase Negative /uL (Negative) Urine RBC <1 /hpf (0 - 3) Urine Microscopic WBC < 1 /HPF (0-3) Urine Squamous Epithelial Cells Few /hpf (<5) Urine Bacteria Few /hpf (None Seen) Urine Hyaline Casts Few /lpf (0 - 2) Urine Glucose 4+ mg/dL (Normal) Urine Opiates Screen Neg (NEGATIVE) Urine Fentanyl Screen Neg (NEGATIVE) Urine Barbiturates Screen Neg (NEGATIVE) Urine Phencyclidine Screen Neg (NEGATIVE) Urine Amphetamines Screen Neg (NEGATIVE) Urine Benzodiazepines Screen Neg (NEGATIVE) Urine Cocaine Screen Neg (NEGATIVE) Urine Cannabinoids Screen Pos (NEGATIVE) Blood Gas Specimen Type Arterial Blood Gas Sample Site Left radial Blood Gas Patient Temperature 37.0 Arterial Blood Date Drawn [id number] Arterial Blood pH 7.360 (7.350-7.450) Arterial Blood Partial Pressure CO2 23.9 mmHg (35.0-48.0) Arterial Blood Partial Pressure O2 99.9 mmHg (83.0-108.0) Arterial Blood HCO3 13.2 mmol/L (21.0-28.0) Arterial Blood Oxygen Saturation 96.8 % (94.0-98.0) Arterial Blood Base Excess -10.6 mmol/L (-2.0-3.0) Arterial Blood Oxyhemoglobin 95.9 % (94.0-98.0) Arterial Blood Carboxyhemoglobin 0.3 % (0.5-1.5) Arterial Blood Methemoglobin 0.6 % (0.0-1.5) Kyle Test Yes Blood Gas Total Hemoglobin 11.30 g/dL (13.5-17.5) Blood Gas Modality Room air FiO2 % 21.0 Test 12/02/24 13:39 Serum Osmolality 350 mOsm/kg (278-298) Beta-Hydroxybutyric Acid > 4.500 mmol/L (< 0.4) Other Laboratory Tests 12/06/24 06:24 Brief Hx & Hospital Course: This is a 44 years old male with past medical history of type 2 diabetes mellitus, gastroparesis, cannabinoids abuse disorder, presented to the ED with a chief complaint of generalized weakness with associated poor appetite, abdominal pain, nausea and vomiting for last 2 weeks prior to this admission. The patient also the patient states that for last 1 week he was not able to eat or drink because of nausea and vomiting and also he was not taking any insulin for last 2 weeks . He had frequent admission in the hospital for DKA and the last admission was October,.He also complains of abdominal pain which is epigastric in nature , 8/10 localized and associated with nausea and vomiting. He denies fever, chills, chest pain, shortness of breath, dysuria, hematuria or any altered bowel habit. On admission the patient was tachypneic, tachycardic, blood sugar was more than 600 ,anion gap was 35, elevated beta hydroxybutyric acid. Patient was admitted for evaluation and management of DKA. Hospital course: Initially patient was presented with blood sugar more than 600, high anion gap, elevated beta hydroxybutyric acid. patient was given 3 L IV bolus fluid and insulin drip as per protocol until the gap closed . Hypokalemia and hypophosphatamia likely due to refeeding syndrome was supplemented. The patient was complaining of stomach pain and CT abdomen pelvis revealed normal study and lipase was normal as well. GI was consulted and they recommended EGD but patient refused to do that. He was able to tolerate oral diet without any nausea and vomiting. Patient was treated with Protonix 40 mg p.o. daily, IV normal saline at 100 mL/hours, Lantus 15 units at HS and mild sliding scale of insulin, Reglan 5 mg t.i.d. Discharge plan was discussed with the patient and all question was answered. He mentioned has glucometer, insulin, strips, lancet in home and no need to prescribe this. Patient was discharged with Protonix 40 mg p.o. daily and metoclopramide 5 mg t.i.d. for 15 days and advised the patient to follow up with DC clinic in 1 week to monitor BMP and also counseled regarding low carb diet, strict control of blood sugar, compliant with insulin regimen and also follow up with pump service supervisor and account specialist for further evaluation and management of long-term diabetic related complications. Physical examination: General Appearance: Alert, Oriented X3, Cooperative, No acute distress HEENT: Atraumatic, PERRLA, EOMI, Mucous membrane moist/pink Respiratory: Clear to auscultation, Normal air movement Cardiovascular: Regular rate, Normal S1, Normal S2, No murmurs, no chest wall tenderness Abdominal: Normal bowel sounds, Soft, mild tenderness in the epigastric region, No hepatospenomegaly, No masses Extremities: No clubbing, No cyanosis, No edema, Normal pulses, No tenderness/swelling Skin: Bilateral dry scabbed skin lesion involved both feet and also involved lower part of ankles, No rashes, No breakdown, No significant lesion Neuro: Normal speech, Strength at 5/5 X4 ext, Normal tone, Sensation intact, Cranial nerves 3-12 NL, Reflexes 2+ Psych/Mental Status: Mental status NL, Mood NL Consults/Reason for consult GI was consulted Operations or Procedures Exam: CT CT AB PEL WO CON-NO ORAL OR IV History: pain Findings: Evaluation of solid organs is limited due to lack of intravenous contrast use. Lung Bases: No acute or significant lung base finding. Normal heart size. No pleural or pericardial effusion. Liver: The liver is normal in size. No focal lesions. Gallbladder and biliary Tree: Unremarkable Spleen: Unremarkable Pancreas: The pancreas is grossly normal in appearance. Adrenal Glands: Unremarkable Kidneys: Mild right hydronephrosis. No obstructing ureteral calculus identified. Bladder: Distended. Bowel: The stomach is grossly normal in appearance. Small bowel and colon are normal in caliber and distribution. Normal appendix is visualized in the right lower quadrant without findings of appendicitis. Ascites: Absent Lymphadenopathy: Mildly prominent right external iliac lymph node measuring up to 9 mm in short axis. Abdominal wall and Mesentery: Unremarkable. Vasculature: The visualized abdominal aorta is normal in size and caliber. Evaluation of abdominal and pelvic vessels is limited due to lack of intravenous contrast. Pelvic Organs: Unremarkable Musculoskeletal: No aggressive focal bony lesions, acute fractures or dislocation. IMPRESSION: 1. No acute abdominal or pelvic findings. Mild right hydronephrosis similar to prior. Mildly prominent right inguinal lymph nodes similar to prior. Distended bladder. CLINICAL INFORMATION: Osteomyelitis FINDINGS: No acute fracture. No erosive changes or cortical destruction are seen. No definite CT evidence for osteomyelitis visualized likely Moderate arthritic changes of the 5th MTP joint with joint space narrowing and sclerosis. The bones are diffusely demineralized, limiting evaluation. No focal soft tissue fluid collection identified. Prominent right inguinal lymph nodes, with the largest measuring up to 1.8 x 1.1 cm, with normal reniform shape and fatty mary ellen. Mildly prominent right external iliac lymph nodes also noted. Dense arterial calcification visualized. The bladder appears moderately to markedly distended. IMPRESSION: 1. No CT evidence of acute osseous abnormality. 2. No erosive changes or cortical destruction identified in the right lower extremity to suggest osteomyelitis, although correlation with clinical findings is needed. If there is a focal area of clinical concern for osteomyelitis in the right lower extremity, dedicated MRI of that location could be considered. 3. Prominent right inguinal lymph nodes and external iliac lymph nodes, most likely reactive. Correlate with clinical findings. 4. Moderately to markedly distended bladder. Correlate with clinical findings. Indication: Rule out PAD Technique: Real- time ultrasound images of the bilateral lower extremity with grayscale, color, and spectral wave Doppler. Comparison: None Findings: Triphasic waveforms in the right TOW BOAT CAPTAIN, SFA. Monophasic waveform in the right dorsalis pedis artery. Triphasic waveforms in the left TOW BOAT CAPTAIN, SFA, posterior tibial and dorsalis pedis arteries. There is mild atherosclerotic calcification disease. Peak systolic velocities are as follows (in cm/s): Right: Common femoral artery: 138 Profunda femoris: 92 Proximal superficial femoral: 119 Mid superficial femoral artery: 147 Distal superficial femoral artery: 125 Popliteal artery: 114 Posterior tibial artery: 105 Dorsalis pedis artery: 39 Left: Common femoral artery: 114 Profunda femoris: 88 Proximal superficial femoral: 103 Mid superficial femoral artery: 121 Distal superficial femoral artery: 125 Popliteal artery: 108 Posterior tibial artery: 73 Dorsalis pedis artery: 48 Impression: 1. Monophasic waveform right dorsalis pedis artery may indicate hemodynamically significant stenosis. CHEST RADIOGRAPH Indication: Rule out aspiration PNA FINDINGS: The cardiac silhouette is unremarkable. The lungs demonstrate left basilar airspace opacities. The pulmonary vasculature is unremarkable. There is no pleural effusion.. There is no pneumothorax. Aortic atherosclerotic disease. 3 mm right lower lobe calcified nodule, consistent with remote granulomatous disease. Mild thoracic dextrocurvature. IMPRESSION: 1. As above << >> Condition at Discharge: Guarded Final Diagnosis/Problems List # Diabetic ketoacidosis resolved # History of gastroparesis # RADHA likely hemodynamically mediated/VMN # Possible PAD on the rt side # Hypophosphatemia # History of hiatal hernia and erosive esophagitis # Xerosis of the skin of the feet bilaterally # Moderate protein calorie malnutrition, BMI 17.9 kg/m2 Discharge Disposition: Home Discharge Instruct/Medications Diet: Consistent carbohydrate Activity: No Restrictions, As Tolerated Follow Up/Referral: Follow up with DC clinic in 1 week Medications: As per EMR Discharge Statement: "Patient was advised to return to the ER or call 911 if any headaches, dizziness, shortness of breath, chest pain, abdominal pain, bleeding, fevers, or worsening of medical condition. Patient was counseled about treatment plan, medications, possible side effects, patientverbalized understanding. All questions were answered to the best of my ability. This discharge took greater then 30 minutes in planning, reviewing documentation, counseling the patient, and discussing with other team members." ASSESSMENT ASSESSMENT Assessment # Diabetic ketoacidosis resolved # History of gastroparesis # RADHA likely hemodynamically mediated/VMN # Possible PAD on the rt side # Hypophosphatemia # History of hiatal hernia and erosive esophagitis # Xerosis of the skin of the feet bilaterally # Moderate protein calorie malnutrition, BMI 17.9 kg/m2 NGA GARCIA RESIDENT December 06, 2024 14:20
[2024-12-06] MEDS ORDERED: POTA-36 PO (14:22)
[2024-12-06 14:26] VITALS: TEMP 36.6
== END 2024-12-06 16:00 | disposition home or self-care (01) | DRG 420 ==
LOC: EDBD 12:59 → ER 13:07 → OVERFLOW 19:46 → ICU WEST 12-03 04:30 → TELE-WESTW 12-04 13:17 → WEST WING 12-04 22:50
PROVIDERS: ADMIT Internal Medicine Pulmonary Disease; ATTEND Emergency Medicine
PROC: 05H933Z Insertion of Infusion Device into Right Brachial Vein, Percutaneous Approach (ICD-10-PCS; principal; 2024-12-02)
PROC: B54MZZA Ultrasonography of Right Upper Extremity Veins, Guidance (ICD-10-PCS; 2024-12-02)
DX: E10.10 Type 1 diabetes mellitus with ketoacidosis without coma (principal); N17.0 Acute kidney failure with tubular necrosis; E44.0 Moderate protein-calorie malnutrition; E10.51 Type 1 diabetes mellitus with diabetic peripheral angiopathy without gangrene; E83.39 Other disorders of phosphorus metabolism; E10.43 Type 1 diabetes mellitus with diabetic autonomic (poly)neuropathy; K31.84 Gastroparesis; L85.3 Xerosis cutis; F12.90 Cannabis use, unspecified, uncomplicated; Z68.1 Body mass index [BMI] 19.9 or less, adult; Z91.199 Patient's noncompliance with other medical treatment and regimen due to unspecified reason; Z83.3 Family history of diabetes mellitus; Z82.0 Family history of epilepsy and other diseases of the nervous system; Z79.4 Long term (current) use of insulin
CPT/HCPCS: 36415; 36600; 71045; 73700; 74176; 80048; 80053; 80307; 81001; 82010; 82805; 82962; 83690; 83735; 83930; 84100; 85007; 85025; 85027; 85610; 85730; 86850; 86900; 86901; 87081; 93925; 96372; 96374; 96375; 97110; 97116; 97163; 97530; 99291; G0378; J1815; J1885; J2405; J2470; J3480

== ENCOUNTER 2025-01-06 12:40 | Inpatient (IN) | payer MEDICAID ==
[2025-01-06] VITALS (20 sets, daily range): BP systolic 87–117; BP diastolic 50–75; PULSE 88–112; RESP 15–30; TEMP 93.4–99.1; O2SAT 99–100
[~2025-01-06] VITALS: Ht 177.8 cm; Wt 48.9 kg
[~2025-01-06 12:40] MED LIST changes: -METO5TAB2 PO; +METO5TAB67 PO; +PANT40T PO
--- NOTE | 2025-01-06 12:48 | ED.PDOC ---
Altered Mental Status HPI Comments HPI: Poor Historian. 44-year-old male brought in by ambulance from home. That called 911 today because he found the patient is almost unresponsive. Patient had similar presentations like this in the past with DKA. Patient has history of diabetes uncontrolled and noncompliant. Patient lives alone. Last time his dad checked on him was four days ago. Per EMS, his sugar read too high to detect. His CO2 was between five and six. They started an IV and started fluids proximally 400 cc in the field. EMS communicate to us that patient is improving with the fluid hydration as far as his mentation. At the house, EMS state the patient was arousable to painful stimuli but is more arousable here on arrival after some simple hydration. Vital signs were otherwise unremarkable. Past Medical history: DM, RADHA, gastroparesis, hiatal hernia, malnutrition Past Surgical history: unknown Medications: insulin Allergies: nkda Social History: denies ETOH, denies tobacco use, denies drug use REVIEW OF SYSTEMS: Limited given the patient's altered level of consciousness. CONSTITUTIONAL: Denies acute: fever, diaphoresis, chills, HEAD: Denies acute: headache, photophobia Eyes: Denies acute: Double vision, vision loss, eye pain, eye discharge. EARS: Denies acute: tinnitus, hearing loss, ear discharge, ear pain, THROAT: Denies acute: sore throat, swelling, difficulty swallowing , pain with swallowing, change in voice. NECK: Denies acute: neck pain, neck swelling, stiff neck. HEART: Denies acute : chest pain, palpitations, LUNGS: Denies acute: SOB, wheezing, cough, hemoptysis ABDOMEN: Denies acute: abdominal pain, Nausea, Vomiting, diarrhea, melena , hematemesis, hematochezia SKIN: Denies acute: rash, redness, lesions, itchiness. EXTREMITIES: Denies acute: calf pain, numbness, tingling, weakness, denies pain in extremity. Denies acute: Low back pain. Neuro: Denies acute: focal neurological deficit, motor or sensory focal neurological deficit, tremors, seizure like activity, loss of bowel or bladder function, cauda equina like symptoms. : Denies acute: dysuria, hematuria, flank pain, increase in urinary frequency. PSYCH: Denies acute: hallucination, suicidal ideation, homicidal ideation. PHYSICAL EXAM: General: ----[id number]----acute distress, awake Head: normocephalic, atraumatic. Neck: supple, trachea is midline, no swelling. Dry oral mucosa Eyes:, no erythema, no purulent discharge, no proptosis, no icterus. Heart: regular rate, regular rhythm, no significant murmur appreciated. Lungs: no apparent respiratory distress, No wheezing, no rhonchi, no crackles. No stridors Clear to auscultation bilaterally. Abdomen: Suprapubic tender to palpation, slightly distended, soft, no guarding, no rebound, + bowel sounds. Neuro: Awake, eyes are open, grimaces and moans to stay painful stimuli. Appears frail and lethargic. Skin: no petechia, no purpura, no cyanosis, noted-pale, not jaundice. Lower extremities: --no - Pitting edema no deformity, no focal swelling, no calf TTP. Noted chronic bilateral feet dried ulcers. Face: no apparent facial droop. ED COURSE: Time Seen by MD: 12:43 Primary Care Provider: MANJU Sharp Notes: Medications, Allergies Allergies: Coded Allergies: NO KNOWN ALLERGIES (Unverified , 02/01/23) Home Meds Active Scripts Metoclopramide Hcl (Reglan) 5 Mg Tab, 5 MG PO TID for 14 Days, #42 TAB Prov:NGA GARCIA RESIDENT 12/06/24 Pantoprazole Sodium Sesquihydr (Pantoprazole Sodium) 40 Mg Tab, 40 MG PO DAILY@0600 for 30 Days, #30 TAB Prov:NGA GARCIA RESIDENT 12/06/24 Information Source: Emergency Med Personnel Mode of Arrival: EMS Past Medical History PAST MEDICAL HISTORY: DM Surgical History: Denies all surgeries Family History Family History: Reviewed,noncontributory to illness Social History Smoker: Non-Smoker Alcohol: Denies ETOH Use Drugs: Marijuana Lives In: Home Was a procedure done? 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 No family available at bedside. Intubation Indication: Airway Protection Pretreated with: Sedation (etomidate 20 mg) Medicated with: Succinylcholine (100 mcg) Intubation Approach: Orotracheal Intubation size: cm (7.5) Differential Diagnosis (ALOC) Differential Diagnosis: Dehydration, Hypoglycemia, DKA, Encephalopathy, Meningitis, Sepsis, Hypoxemia, Seizure, Closed Head Injury, CVA, Mass Lesion, SAH, Drug Overdose, ETOH Intoxication, Heart Failure, Renal Failure, Other X-Ray, Labs, Meds, VS Vital Signs Date Time Temp Pulse Resp B/P (MAP) Pulse Ox O2 Delivery O2 Flow Rate FiO2 01/06/25 16:00 141 17 131/83 (99) 100 01/06/25 16:00 131/83 01/06/25 16:00 138/90 01/06/25 16:00 138/90 01/06/25 15:50 119/74 01/06/25 15:45 121 17 131/81 (98) 100 01/06/25 15:30 130 18 128/77 (94) 100 01/06/25 15:25 132/80 01/06/25 15:25 132/80 01/06/25 15:20 126/73 01/06/25 15:15 140 17 140/82 (101) 100 01/06/25 15:00 125 17 127/78 (94) 100 01/06/25 15:00 127/78 01/06/25 15:00 127/78 01/06/25 15:00 127/78 01/06/25 14:55 98 01/06/25 14:50 119/69 01/06/25 14:45 142 19 115/77 (90) 100 01/06/25 14:40 109/61 01/06/25 14:33 140 20 109/61 (77) 100 60 01/06/25 14:30 91 20 99/54 (69) 100 01/06/25 14:25 136 16 96/63 (74) 100 01/06/25 14:20 85 18 90/44 (59) 100 01/06/25 14:20 90/44 01/06/25 14:15 138 19 92/53 (66) 100 01/06/25 14:10 141 18 121/51 (74) 100 01/06/25 14:05 135 24 97/57 (70) 95 01/06/25 14:00 90/45 01/06/25 14:00 111 28 90/45 (60) 91 01/06/25 13:55 83 25 58/32 (41) 100 01/06/25 13:50 105 26 76/34 (48) 100 01/06/25 13:45 120 27 77/40 (52) 100 01/06/25 13:30 128 30 82/49 (60) 100 01/06/25 13:00 Room Air* 0 21 01/06/25 13:00 97.1 94 20 101/58 (72) 99 97.1 01/06/25 12:45 96.9 94 28 101/58 (72) 99 96.9 01/06/25 12:43 90 Lab Test 01/06/25 16:10 01/06/25 15:31 01/06/25 15:00 01/06/25 14:07 Range/Units Urine Color Light-yellow Yellow Urine Clarity Clear Clear Urine pH 6.5 5.0-9.0 Urine Specific [place] 1.018 1.001-1.035 Urine Protein 3+ H Negative Urine Ketones 3+ H Negative Urine Blood 2+ H Negative /uL Urine Nitrite Negative Negative Urine Bilirubin Negative Negative Urine Urobilinogen Normal Negative mg/dL Urine Leukocyte Esterase Negative Negative /uL Urine RBC 44 0 - 3 /hpf Urine Microscopic WBC 5 H 0-3 /HPF Urine Squamous Epithelial Cells Few <5 /hpf Urine Bacteria Few H None Seen /hpf Urine Hyaline Casts Mod 0 - 2 /lpf Urine Glucose 4+ H Normal mg/dL Urine Opiates Screen Neg NEGATIVE Urine Fentanyl Screen Neg NEGATIVE Urine Barbiturates Screen Neg NEGATIVE Urine Phencyclidine Screen Neg NEGATIVE Urine Amphetamines Screen Neg NEGATIVE Urine Benzodiazepines Screen Neg NEGATIVE Urine Cocaine Screen Neg NEGATIVE Urine Cannabinoids Screen Pos NEGATIVE Blood Gas Specimen Type Arterial Blood Gas Sample Site Right radial Blood Gas Patient Temperature 37.0 Arterial Blood Date Drawn [id number] Arterial Blood pH 7.163 *L 7.350-7.450 Arterial Blood Partial Pressure CO2 21.1 L 35.0-48.0 mmHg Arterial Blood Partial Pressure O2 172.6 H 83.0-108.0 mmHg Arterial Blood HCO3 7.4 L 21.0-28.0 mmol/L Arterial Blood Oxygen Saturation 98.8 H 94.0-98.0 % Arterial Blood Base Excess -19.5 L -2.0-3.0 mmol/L Arterial Blood Oxyhemoglobin 97.7 94.0-98.0 % Arterial Blood Carboxyhemoglobin 0.4 L 0.5-1.5 % Arterial Blood Methemoglobin 0.7 0.0-1.5 % Kyle Test Modified Blood Gas Total Hemoglobin 8.50 L 13.5-17.5 g/dL Blood Gas Set Respiration Rate 20.0 Blood Gas Modality Vent - ac FiO2 % 60.0 Blood Gas Tidal Volume 450.0 Blood Gas PEEP or CPAP 5.0 Blood Gas Critical Value Read Back Yes Blood Gas Notified Whom melecio Adam Blood Gas Notified Time [id number] Blood Gas Notified By Merly riley White Blood Count 25.1 H 4.4-10.8 10^3/uL Red Blood Count 3.22 L 4.5-5.90 10^6/uL Hemoglobin 7.6 L 13.5-17.5 g/dL Hematocrit 26.8 #L 41.0-53.0 % Mean Corpuscular Volume 83.2 # 80.0-100.0 fL Mean Corpuscular Hemoglobin 23.5 L 28.0-32.0 pg Mean Corpuscular Hemoglobin Concent 28.2 L 32.0-36.0 g/dL Red Cell Distribution Width 21.1 H 11.8-14.3 % Platelet Count 851 *H 140-450 10^3/uL Mean Platelet Volume 6.8 L 6.9-10.8 fL Neutrophils (%) (Auto) 37.0-80.0 % Lymphocytes (%) (Auto) 0.0 L 10.0-50.0 % Monocytes (%) (Auto) 0.0-12.0 % Basophils (%) (Auto) 0.0-2.0 % Neutrophils # (Auto) 1.6-8.6 10 ^3/uL Lymphocytes # (Auto) 0.4-5.4 10 ^3/uL Monocytes # (Auto) 0-1.3 10 ^3/uL Differential Total Cells Counted 100.0 100 Neutrophils % (Manual) 89 H 37.0-80.0 Band Neutrophils % (Manual) 4 Lymphocytes % (Manual) 3 L 10.0-50.0 Monocytes % (Manual) 4 0-12 Eosinophils % (Manual) 0 0-7 Basophils % (Manual) 0 0.0-2.0 Metamyelocytes % (manual) 0 Myelocytes % (Manual) 0 Promyelocytes % (Manual) 0 Blast Cells % (Manual) 0 Reactive Lymphocytes 0 Platelet Estimate Markedly increased Large Platelets Hypochromasia (manual) Marked Anisocytosis (manual) Slight Troponin I High Sensitivity 15 5 </=54 ng/L Sodium Level 164 #*H 136-145 mmol/L Potassium Level 3.8 3.5-5.1 mmol/L Chloride Level 114 H 98-107 mmol/L Carbon Dioxide Level < 10 *L 20-31 mmol/L Anion Gap 40.18593 H 5-15 Blood Urea Nitrogen 29 H 9-23 mg/dL Creatinine 2.46 H 0.700-1.30 mg/dL Glomerular Filtration Rate Calc 32 >90 mL/min BUN/Creatinine Ratio 11.8 10.0-20.0 Serum Glucose 840 *H 74-106 mg/dL Calcium Level 8.0 L 8.7-10.4 mg/dL Total Bilirubin < 0.2 L 0.2-1.0 mg/dL Aspartate Amino Transferase (AST) 12 <34 U/L Alanine Aminotransferase (ALT) 14 7-40 U/L Alkaline Phosphatase 302 H 46-116 U/L Total Protein 5.9 5.7-8.2 g/dL Albumin 3.1 L 3.2-4.8 g/dL Test 01/06/25 13:12 01/06/25 12:58 Range/Units White Blood Count 23.2 H 4.4-10.8 10^3/uL Red Blood Count 3.67 L 4.5-5.90 10^6/uL Hemoglobin 8.4 L 13.5-17.5 g/dL Hematocrit 34.6 L 41.0-53.0 % Mean Corpuscular Volume 94.3 80.0-100.0 fL Mean Corpuscular Hemoglobin 22.8 L 28.0-32.0 pg Mean Corpuscular Hemoglobin Concent 24.2 L 32.0-36.0 g/dL Red Cell Distribution Width 22.3 H 11.8-14.3 % Platelet Count 931 *H 140-450 10^3/uL Mean Platelet Volume 7.0 6.9-10.8 fL Neutrophils (%) (Auto) 87.7 H 37.0-80.0 % Lymphocytes (%) (Auto) 5.6 L 10.0-50.0 % Monocytes (%) (Auto) 6.2 0.0-12.0 % Eosinophils (%) (Auto) 0.0 0.0-7.0 % Basophils (%) (Auto) 0.5 0.0-2.0 % Neutrophils # (Auto) 20.3 H 1.6-8.6 10 ^3/uL Lymphocytes # (Auto) 1.3 0.4-5.4 10 ^3/uL Monocytes # (Auto) 1.4 H 0-1.3 10 ^3/uL Eosinophils # (Auto) 0 0-0.8 10 ^3/uL Basophils # (Auto) 0.1 0-0.2 10 ^3/uL Nucleated Red Blood Cells 0.1 % Platelet Estimate Marked Large Platelets Few Sodium Level 155 H 136-145 mmol/L Potassium Level 4.7 3.5-5.1 mmol/L Chloride Level 109 H 98-107 mmol/L Carbon Dioxide Level < 10 *L 20-31 mmol/L Anion Gap 36.07096 H 5-15 Blood Urea Nitrogen 28 H 9-23 mg/dL Creatinine 2.63 H 0.700-1.30 mg/dL Glomerular Filtration Rate Calc 30 >90 mL/min BUN/Creatinine Ratio 10.6 10.0-20.0 Serum Glucose 931 *H 74-106 mg/dL Serum Osmolality 420 H 278-298 mOsm/kg Lactic Acid Level 1.9 0.4-2.0 mmol/L Calcium Level 8.3 L 8.7-10.4 mg/dL Phosphorus Level 9.4 H 2.4-5.1 mg/dL Magnesium Level 3.6 H 1.6-2.6 mg/dL Total Bilirubin < 0.2 L 0.2-1.0 mg/dL Aspartate Amino Transferase (AST) 14 <34 U/L Alanine Aminotransferase (ALT) 18 7-40 U/L Alkaline Phosphatase 388 H 46-116 U/L Creatine Kinase 151 46-171 U/L Troponin I High Sensitivity 7 </=54 ng/L Total Protein 7.1 5.7-8.2 g/dL Albumin 3.7 3.2-4.8 g/dL Lipase 52 12-53 U/L Beta-Hydroxybutyric Acid > 4.500 H < 0.4 mmol/L Blood Gas Specimen Type Arterial Blood Gas Sample Site Right radial Blood Gas Patient Temperature 37.0 Arterial Blood Date Drawn [id number] Arterial Blood pH 6.983 *L 7.350-7.450 Arterial Blood Partial Pressure CO2 < 14.1 *L 35.0-48.0 mmHg Arterial Blood Partial Pressure O2 129.1 H 83.0-108.0 mmHg Arterial Blood Oxygen Saturation 96.9 94.0-98.0 % Arterial Blood Oxyhemoglobin 95.7 94.0-98.0 % Arterial Blood Carboxyhemoglobin 0.5 0.5-1.5 % Arterial Blood Methemoglobin 0.7 0.0-1.5 % Kyle Test Yes Blood Gas Total Hemoglobin 8.30 L 13.5-17.5 g/dL Blood Gas Modality Room air FiO2 % 21.0 Blood Gas Critical Value Read Back yes Blood Gas Notified Whom melecio moss md Blood Gas Notified Time [id number] Blood Gas Notified By merly felix Current Medications Medications (Trade) Dose Ordered Sig/Zaria Route Start Time Stop Time Status Last Admin Sodium Chloride 1,000 ml @ 1,000 mls/hr Q1H ONCE IV 01/06/25 13:00 01/06/25 13:59 DC 01/06/25 13:16 Sodium Bicarbonate 150 ml ONCE ONCE IV 01/06/25 13:00 01/06/25 13:01 DC 01/06/25 13:04 Insulin Human Regular (InsuLIN R) 10 units ONCE ONCE IV 01/06/25 13:00 01/06/25 13:01 DC 01/06/25 13:10 Sodium Chloride 1,000 ml @ 500 mls/hr Q2H IV 01/06/25 13:15 01/06/25 17:14 DC 01/06/25 15:24 Insulin Human (Reg)/Sodium Chloride 100 ml @ 0.5 mls/hr Q24H IV 01/06/25 13:15 01/06/25 14:00 Diagnostic Test (Pha) (Accu-Chek Comfort Curve T) 1 strip Q90MIN 01/06/25 13:30 01/06/25 22:32 Insulin Glargine (Lantus) 15 units ONCE ONCE SC 01/06/25 13:15 01/06/25 13:16 DC 01/06/25 13:19 Piperacillin Sod/ Tazobactam Sod 100 ml @ 100 mls/hr ONCE ONCE IV 01/06/25 13:45 01/06/25 14:44 DC 01/06/25 13:45 Etomidate 20 mg ONCE ONCE IV 01/06/25 14:00 01/06/25 14:01 DC 01/06/25 14:07 Norepinephrine Bitartrate 250 ml @ 3.75 mls/hr Q24H IV 01/06/25 14:00 01/06/25 14:00 Propofol 100 ml @ 1.5 mls/hr Q24H IV 01/06/25 14:40 01/06/25 21:23 Amiodarone HCl 100 ml @ 600 mls/hr ONCE ONCE IV 01/06/25 15:15 01/06/25 15:24 DC 01/06/25 15:15 Midazolam HCl 50 ml @ 1 mls/hr Q24H IV 01/06/25 14:10 01/06/25 14:20 [place] [address] Ph: [phone] DIAGNOSTIC IMAGING Diagnostic Imaging Report : [id number] Signed PATIENT: SUKHWINDER CHEEMAACCT: [id number] UNIT: [id number] : 1980 LOC: ER ROOM / BED: / AGE / SEX: 44 / M ADM STATUS: REG ER SERVICE 1249 ORDERING PHYSICIAN: SILVER MOSS DO PROCEDURE(s): CXRP - CHEST PORTABLE REASON: ALOC, HIGH BS, H/O DKA ORDER NUMBER(s): [id number], ACCESSION NUMBER(s): [id number] CHEST RADIOGRAPH Indication: ALOC, HIGH BS, H/O DKA Technique: Single frontal view of the chest was obtained Comparison: XY CHEST XRAY 1 VIEW on DOS: 12/03/24, XY CHEST PORTABLE on DOS: 08/07/23, XY CHEST XRAY 1 VIEW on DOS: 06/29/23, XY CHEST PORTABLE on DOS: 05/01/23, XY CHEST XRAY 1 VIEW on DOS: 04/27/23 FINDINGS: Lines and Tubes: None Lungs: No focal consolidation. Pleura: No effusion. No pneumothorax. Cardiomediastinal contours: Unremarkable Bones: No acute osseous abnormality. IMPRESSION: No acute cardiopulmonary disease. ATED BY: PEBBLES HERNANDEZ MD DICTATED DATE/TIME: 01/06/251404 SIGNED BY: PEBBLES HERNANDEZ MD SIGNED DATE/TIME: 01/06/251404 CC: [place] [address] Ph: [phone] DIAGNOSTIC IMAGING Diagnostic Imaging Report : [id number] Signed PATIENT: SUKHWINDER CHEEMAACCT: [id number] UNIT: [id number] : 1980 LOC: ER ROOM / BED: / AGE / SEX: 44 / M ADM STATUS: REG ER SERVICE 1454 ORDERING PHYSICIAN: SILVER MOSS DO PROCEDURE(s): CXRP - CHEST PORTABLE REASON: post intubation ORDER NUMBER(s): [id number], ACCESSION NUMBER(s): [id number] CHEST RADIOGRAPH Indication: post intubation Technique: Single frontal view of the chest was obtained Comparison: XY CHEST PORTABLE on DOS: 01/06/25, XY CHEST XRAY 1 VIEW on DOS: 12/03/24, XY CHEST PORTABLE on DOS: 08/07/23, XY CHEST XRAY 1 VIEW on DOS: 06/29/23, XY CHEST PORTABLE on DOS: 05/01/23, XY CHEST PORTABLE on DOS: 01/06/25 FINDINGS: Lines and Tubes: ET tube 1 cm from nata. Lungs: No focal consolidation. Pleura: No effusion. No pneumothorax. Cardiomediastinal contours: Unremarkable Bones: No acute osseous abnormality. IMPRESSION: No acute cardiopulmonary disease. ET tube 1 cm from nata. Retract 2cm . ATED BY: PEBBLES HERNANDEZ MD DICTATED DATE/TIME: 01/06/25 1523 SIGNED BY: PEBBLES HERNANDEZ MD SIGNED DATE/TIME: 01/06/25 1523 CC: Time of 1ST Reevaluation: 22:34 (As of this time, CT scans have not been performed. Patient has not received any blood transfusion yet. I called the ER nurse and asked her to expedite this. Patient has already been admitted hours ago.) Reevaluation 1ST: Unchanged Patient Education/Counseling: Other (pt is altered) Family Education/Counseling: No Family Present Comments Patient was evaluated immediately upon arrival. Patient has clinical presentation and history of DKA. DKA protocol was initiated. Bicarb at least three amps were given initially and fluid resuscitation. Patient showed some minimal improvement however he has been pulling on his IV. Second midline was initiated of the right upper extremity. Patient was placed in mittens of upper extremities to prevent him from losing the IV. Despite 3 L of normal saline bolus patient continued to be hypotensive. Levophed was initiated. Decision made to intubate the patient given his altered level of consciousness and breathing pattern. Successful intubation was performed with a GlideScope from 1st attempt. The etomidate 20, Versed, later propofol drip and succinylcholine bolus were given. Chest x-ray confirmed appropriate position of the ET tube. ABG initially showed severe acidosis. Sepsis protocol was initiated. Patient was given broad-spectrum antibiotics. Owens catheter and NG tube were placed. Patient is making urine. No history of fall or trauma reported. CT scan of the head and abdomen and pelvis were ordered but have not been done yet. Please see all medications ordered under my name for this patient's care. Patient was found with a atrial fibrillation with RVR. Initially amiodarone 150 mg bolus were given. Patient continued to be in AFib with RVR. I decided to start the patient on diltiazem drip however his heart rate improved under 100. Diltiazem drip was discontinued. Patient was slowly weaned off of the Levophed and Versed. Propofol remained. Right femoral central line was placed under ultrasound guidance successfully from 1st attempt. Patient was found with anemia. Repeat CBC shows drop in his hemoglobin after fluid resuscitation. Type and screen were ordered and I or so ordered two packs of red blood cells. There is no family members available at bedside. Departure 1 Departure Time of Disposition: 13:03 Impression: Primary Impression: Altered mental status Additional Impressions: DKA (diabetic ketoacidosis) Acute renal insufficiency Hypernatremia Hyperphosphatemia Sepsis Symptomatic anemia Atrial fibrillation UTI (urinary tract infection) Disposition: ADMITTED INPATIENT Admit to: ICU Condition: Critical Critical Care Note Critical Care Time?: Yes (>90min-critical care time only) I personally scribed for SILVER MOSS DO ([email or web address]) on 01/06/25 at 12:48. Electronically submitted by Kvng Davies ([email or web address]). I personally scribed for SILVER MOSS DO ([email or web address]) on 01/06/25 at 13:36. Electronically submitted by Kvng Davies ([email or web address]). I personally scribed for SILVER MOSS DO ([email or web address]) on 01/06/25 at 18:02. Electronically submitted by Kvng Davies ([email or web address]). I personally scribed for SILVER MOSS DO ([email or web address]) on 01/06/25 at 18:04. Electronically submitted by Kvng Davies (KAILASH). I personally scribed for SILVER MOSS DO ([email or web address]) on 01/06/25 at 19:16. Electronically submitted by Kvng Davies (KAILASH). I personally scribed for SILVER MOSS DO ([email or web address]) on 01/06/25 at 19:32. Electronically submitted by Kvng Davies ([email or web address]). SILVER MOSS DO Jan 06, 2025 12:48
[2025-01-06] MEDS: SODIUM BICARB 8.4% 50Meq/50ml SYR Vial IV ONE ×3 (13:04→23:43)
[2025-01-06] MEDS: InsuLIN REG 1unit/0.01ml Soln (100units/ml) IV ONE (13:10)
[2025-01-06] MEDS ORDERED: DEXTROSE (50%) 50ML SYRG IV PRN (13:15)
[2025-01-06] MEDS: SODIUM CHLORIDE 0.9% 1,000 ML IV ONE (13:16)
[2025-01-06] MEDS: INSULIN LANTUS (GLARGINE) 1 /0.01ml (100units/ml) SC ONE (13:19)
[2025-01-06 13:28] LABS: Hemoglobin 8.4 g/dL (13.5-17.5); Nucleated Red Blood Cells % 0.1 %
[2025-01-06 13:30] LABS: Hematocrit 34.6 % (41.0-53.0); Mean Corpuscular Hemoglobin 22.8 pg (28.0-32.0); Mean Corpuscular Volume 94.3 fL (80.0-100.0)
[2025-01-06] MEDS: ACCU-CHEK COMFORT CURVE STRIP VI SCH (13:36)
[2025-01-06] MEDS: SODIUM CHLORIDE 0.9% 1,000 ML IV SCH ×2 (13:40→17:15)
[2025-01-06 13:43] LABS: Alanine Aminotransferase 18 U/L (7-40); Albumin 3.7 g/dL (3.2-4.8); Anion Gap 36.00001 (5-15); BUN/Creatinine Ratio 10.6 (10.0-20.0); Creatine Kinase IFCC 151 U/L (46-171); Lipase 52 U/L (12-53); Potassium 4.7 mmol/L (3.5-5.1); Total Protein 7.1 g/dL (5.7-8.2)
[2025-01-06] MEDS: PIPERACILLIN-TAZOB 3.375GM 100 ML IV ONE (13:45)
[2025-01-06] MEDS: SODIUM BICARB 8.4% 50Meq/50ml SYR INJ ONE (13:50)
[2025-01-06 13:51] LABS: Alkaline Phosphatase 388 U/L (46-116); Bilirubin, Total < 0.2 mg/dL (0.2-1.0); Blood Urea Nitrogen 28 mg/dL (9-23); Calcium 8.3 mg/dL (8.7-10.4); Chloride 109 mmol/L (98-107); Magnesium 3.6 mg/dL (1.6-2.6); Sodium 155 mmol/L (136-145)
[2025-01-06 13:58] LABS: Carbon Dioxide < 10 mmol/L (20-31); Glucose 931 mg/dL (74-106)
[2025-01-06] MEDS: INSULIN DRIP 100 UNIT/100ML 100 ML IV SCH (14:00)
[2025-01-06] MEDS: NOREPINEPHRINE 8 MG/250ML KIT 250 ML IV SCH (14:00)
[2025-01-06] MEDS: ETOMIDATE (2MG/ML) 20ML VIAL IV ONE ×2 (14:07→14:39)
--- NOTE | 2025-01-06 14:07 | DVH ---
CHEST RADIOGRAPH Indication: ALOC, HIGH BS, H/O DKA Technique: Single frontal view of the chest was obtained Comparison: XY CHEST XRAY 1 VIEW on DOS: 12/03/24, XY CHEST PORTABLE on DOS: 08/07/23, XY CHEST XRAY 1 VIEW on DOS: 06/29/23, XY CHEST PORTABLE on DOS: 05/01/23, XY CHEST XRAY 1 VIEW on DOS: 04/27/23 FINDINGS: Lines and Tubes: None Lungs: No focal consolidation. Pleura: No effusion. No pneumothorax. Cardiomediastinal contours: Unremarkable Bones: No acute osseous abnormality. IMPRESSION: No acute cardiopulmonary disease.
[2025-01-06] MEDS: MIDAZOLAM DRIP 50 mg/50mL 50 ML IV SCH (14:20)
--- NOTE | 2025-01-06 14:26 | ECG ---
[facility] Test Date: 2025-01-06 Test Time: 12:43:22 Pat Name: SUKHWINDER CHEEMA Department: ED Room: [address] [place] [address] Gender: M Property Underwriter: : 1980 Requested By: SILVER MOSS Order Number: [id number] Reading MD: Asnhu Trejo Measurements Intervals [place] Rate: 90 P: 170 HI: 134 QRS: 127 QRSD: 103 T: 115 QT: 468 QTc: 573 Interpretive Statements Sinus or ectopic atrial rhythm Right axis deviation RSR' in V1 or V2, probably normal variant Abnormal T, consider ischemia, lateral leads Prolonged QT interval Electronically Signed On 01-07-2025 17:40:07 PDT by Anshu Trejo Please click the below link to view image of tracing.
[2025-01-06] MEDS: NOREPINEPHRINE 8 MG/250ML KIT 250 ML IV ONE (14:39)
[2025-01-06] MEDS: SUCCINYLCHOLINE CHLORIDE 20 MG/ML 10ML VIAL IV ONE (14:40)
[2025-01-06] MEDS: MIDAZOLAM HCL 5 MG/ML-1ML VIAL ONE (14:40)
[2025-01-06] MEDS: PROPOFOL 100 ML IV SCH (14:40)
[2025-01-06] MEDS: MIDAZOLAM DRIP 50 mg/50mL 50 ML IV ONE (14:40)
[2025-01-06] MEDS ORDERED: VANCOMYCIN PER PHARMACY 0 MG IV SCH (15:00)
[2025-01-06] MEDS ORDERED: DOCUSATE SOD 100 MG CAP PO PRN (15:00)
[2025-01-06] MEDS ORDERED: ACETAMINOPHEN 325 MG TAB PO PRN (15:00)
[2025-01-06] MEDS: PROPOFOL 100 ML IV ONE (15:04)
[2025-01-06 15:10] LABS: Alanine Aminotransferase 14 U/L (7-40); Anion Gap 40.00001 (5-15); BUN/Creatinine Ratio 11.8 (10.0-20.0); Potassium 3.8 mmol/L (3.5-5.1); Total Protein 5.9 g/dL (5.7-8.2)
[2025-01-06] MEDS: AMIODARONE HCL (50 MG/ ML) 3 ML VIAL IV ONE (15:15)
[2025-01-06] MEDS: AMIODARONE BOLUS KIT 100 ML IV ONE (15:15)
[2025-01-06 15:17] LABS: Albumin 3.1 g/dL (3.2-4.8); Alkaline Phosphatase 302 U/L (46-116); Bilirubin, Total < 0.2 mg/dL (0.2-1.0); Blood Urea Nitrogen 29 mg/dL (9-23); Calcium 8.0 mg/dL (8.7-10.4); Chloride 114 mmol/L (98-107)
[2025-01-06 15:25] LABS: Carbon Dioxide < 10 mmol/L (20-31); Glucose 840 mg/dL (74-106); Sodium 164 mmol/L (136-145)
--- NOTE | 2025-01-06 15:25 | DVH ---
CHEST RADIOGRAPH Indication: post intubation Technique: Single frontal view of the chest was obtained Comparison: XY CHEST PORTABLE on DOS: 01/06/25, XY CHEST XRAY 1 VIEW on DOS: 12/03/24, XY CHEST PORTABL E on DOS: 08/07/23, XY CHEST XRAY 1 VIEW on DOS: 06/29/23, XY CHEST PORTABLE on DOS: 05/01/23, XY CHEST PORTABLE on DOS: 01/06/25 FINDINGS: Lines and Tubes: ET tube 1 cm from nata. Lungs: No focal consolidation. Pleura: No effusion. No pneumothorax. Cardiomediastinal contours: Unremarkable Bones: No acute osseous abnormality. IMPRESSION: No acute cardiopulmonary disease. ET tube 1 cm from nata. Retract 2cm .
[2025-01-06 15:29] LABS: Hematocrit 26.8 % (41.0-53.0); Hemoglobin 7.6 g/dL (13.5-17.5); Mean Corpuscular Hemoglobin 23.5 pg (28.0-32.0); Mean Corpuscular Volume 83.2 fL (80.0-100.0)
[2025-01-06 15:44] LABS: Base Excess -19.5 mmol/L (-2.0-3.0)
--- NOTE | 2025-01-06 16:13 | DVHHP2 ---
History of Present Illness Reason for Visit: DKA (diabetic ketoacidosis) History of Present Illness The patient is a 44-year-old male with past medical history of diabetes mellitus who presented to [facility] ED for evaluation of altered level of consciousness. As reported by EMS, patient's blood sugar 2 two the 3rd and was started on IV fluids proximally 400 cc in the field EN route to our facility ED. patient's condition progressively get worse hypoxia, generalized weakness, increased work of breathing, and subsequently intubated. Patient was seen and evaluated in the ED, laboratory data shows WBC 23.2 hemoglobin 8.4, hematocrit 34.6, platelets 931, sodium 155, potassium 4.7, BUN 28, creatinine 2.63, glucose 931, anion gap 36.00, calcium 8.3, lipase 52, troponin 7, phosphorus 9.4, magnesium 3.6, alkaline phos 388, lactic acid 1.9, blood pressure 101/58, heart rate 94, temperature 94.9 F, O2 saturation 99% on ventilator. Chest x-ray show no acute cardiopulmonary disease. Patient was started on IV antibiotic regimen Zosyn, on insulin drip, please see medication orders section in the computer. On my assessment, patient remains fully intubated, no diaphoresis, no diarrhea, no vomiting, no fever, no chills. Patient was admitted for further evaluation and medical management. Past Medical History Diabetes mellitus Past Surgical History Denies all surgeries Family History Reviewed, noncontributory to the management of this case. Past Social History The patient lives at home, no history of smoking, alcohol or illicit drugs abuse on file. Review of Systems Constitutional: Yes: Weakness, Other (Fatigue); No: Fever, Chills, Sweats, Malaise Eyes: No: Pain, Vision change, Conjunctivae inflammation, Eyelid inflammation, Other, Redness ENT: No: Ear pain, Ear discharge, Nose pain, Nose discharge, Nose congestion, Mouth pain, Mouth swelling, Throat pain, Throat swelling, Other Respiratory: No: Cough, Dry, Shortness of breath, SOB with excertion, Wheezing, Hemoptysis, Pleuritic Pain, Sputum, Wheezing, Other Cardiovascular: No: Chest Pain, Palpitations, Orthopnea, Paroxysmal Noc. Dyspnea, Edema, Lt Headedness, Other Gastrointestinal: No: Nausea, Vomiting, Abdominal Pain, Diarrhea, Constipation, Melena, Hematochezia, Other Genitourinary: No Dysuria, No Frequency, No Incontinence, No Hematuria, No Retention; Other (Owens catheter in place) Musculoskeletal: No: other, neck pain, shoulder pain, arm pain, back pain, hand pain, leg pain, foot pain Skin: No: Rash, Lesions, Jaundice, Bruising, Other Neurological: Confusion; No: Weakness, Numbness, Incoordination, Change in speech, Seizures, Other Allergies: Coded Allergies: NO KNOWN ALLERGIES (Unverified , 02/01/23) Medications Current Medications Medications Dose Ordered Sig/Zaria Route Start Time Stop Time Status Last Admin Dose Admin Sodium Chloride 1,000 ml @ 500 mls/hr Q2H IV 01/06/25 13:15 01/06/25 17:14 01/06/25 15:24 500 MLS/HR Sodium Chloride 1,000 ml @ 250 mls/hr Q4H IV 01/06/25 17:15 01/06/25 19:14 Insulin Human (Reg)/Sodium Chloride 100 ml @ 0.5 mls/hr Q24H IV 01/06/25 13:15 01/06/25 14:00 6 MLS/HR Dextrose 50 ml UD PRN IV 01/06/25 13:15 Diagnostic Test (Pha) 1 strip Q90MIN 01/06/25 13:30 01/06/25 15:07 1 STRIP Norepinephrine Bitartrate 250 ml @ 3.75 mls/hr Q24H IV 01/06/25 14:00 01/06/25 14:00 18.75 MLS/HR Propofol 100 ml @ 1.5 mls/hr Q24H IV 01/06/25 14:40 01/06/25 14:40 1.5 MLS/HR Heparin Sodium (Porcine) 5,000 units Q12HR SC 01/06/25 22:00 Piperacillin Sod/ Tazobactam Sod 100 ml @ 25 mls/hr Q8HR IV 01/06/25 22:00 Vancomycin HCl 0 ml @ 0 mls/hr UD IV 01/06/25 15:00 UNV Lactated Ringer's 1,000 ml @ 125 mls/hr Q8H IV 01/06/25 19:15 Acetaminophen/ Hydrocodone Bitart 1 tab Q4HP PRN PO 01/06/25 15:00 Ondansetron HCl 4 mg Q4HP PRN IV 01/06/25 15:00 Docusate Sodium 100 mg BIDPRN PRN PO 01/06/25 15:00 Acetaminophen 650 mg Q6HP PRN PO 01/06/25 15:00 Exam Vital Signs Vital Signs Date Time Temp Pulse Resp B/P (MAP) Pulse Ox O2 Delivery O2 Flow Rate FiO2 01/06/25 16:00 138/90 01/06/25 15:15 140 17 100 01/06/25 14:33 60 01/06/25 13:00 Room Air* 0 01/06/25 13:00 97.1 97.1 General Appearance: Other (Fully intubated) HEENT: Atraumatic, PERRLA, EOMI, Mucous membr. moist/pink Respiratory: Normal air movement, Other (On ventilator) Cardiovascular: Regular rate, Normal S1, Normal S2, No murmurs Abdominal: Normal bowel sounds, Soft, No tenderness, No hepatospenomegaly, No masses Extremities: No clubbing, No cyanosis, No edema, Normal pulses, No tenderness/swelling Skin: No rashes, No breakdown, No significant lesion Neuro: Normal tone, Other (Altered level of consciousness) Psych/Mental Status: Other (Altered mental status) Labs/Xrays Labs Test 01/06/25 15:31 01/06/25 15:00 01/06/25 14:07 01/06/25 13:12 Range/Units Blood Gas Specimen Type Arterial Blood Gas Sample Site Right radial Blood Gas Patient Temperature 37.0 Arterial Blood Date Drawn [id number] Arterial Blood pH 7.163 *L 7.350-7.450 Arterial Blood Partial Pressure CO2 21.1 L 35.0-48.0 mmHg Arterial Blood Partial Pressure O2 172.6 H 83.0-108.0 mmHg Arterial Blood HCO3 7.4 L 21.0-28.0 mmol/L Arterial Blood Oxygen Saturation 98.8 H 94.0-98.0 % Arterial Blood Base Excess -19.5 L -2.0-3.0 mmol/L Arterial Blood Oxyhemoglobin 97.7 94.0-98.0 % Arterial Blood Carboxyhemoglobin 0.4 L 0.5-1.5 % Arterial Blood Methemoglobin 0.7 0.0-1.5 % Kyle Test Modified Blood Gas Total Hemoglobin 8.50 L 13.5-17.5 g/dL Blood Gas Set Respiration Rate 20.0 Blood Gas Modality Vent - ac FiO2 % 60.0 Blood Gas Tidal Volume 450.0 Blood Gas PEEP or CPAP 5.0 Blood Gas Critical Value Read Back Yes Blood Gas Notified Whom melecio Adam Blood Gas Notified Time [id number] Blood Gas Notified By Clerical Car Checker dayna riley White Blood Count 25.1 H 4.4-10.8 10^3/uL Red Blood Count 3.22 L 4.5-5.90 10^6/uL Hemoglobin 7.6 L 13.5-17.5 g/dL Hematocrit 26.8 #L 41.0-53.0 % Mean Corpuscular Volume 83.2 # 80.0-100.0 fL Mean Corpuscular Hemoglobin 23.5 L 28.0-32.0 pg Mean Corpuscular Hemoglobin Concent 28.2 L 32.0-36.0 g/dL Red Cell Distribution Width 21.1 H 11.8-14.3 % Platelet Count 851 *H 140-450 10^3/uL Mean Platelet Volume 6.8 L 6.9-10.8 fL Neutrophils (%) (Auto) 37.0-80.0 % Lymphocytes (%) (Auto) 10.0-50.0 % Monocytes (%) (Auto) 0.0-12.0 % Basophils (%) (Auto) 0.0-2.0 % Neutrophils # (Auto) 1.6-8.6 10 ^3/uL Lymphocytes # (Auto) 0.4-5.4 10 ^3/uL Monocytes # (Auto) 0-1.3 10 ^3/uL Troponin I High Sensitivity 15 </=54 ng/L Sodium Level 164 #*H 136-145 mmol/L Potassium Level 3.8 3.5-5.1 mmol/L Chloride Level 114 H 98-107 mmol/L Carbon Dioxide Level < 10 *L 20-31 mmol/L Anion Gap 40.02286 H 5-15 Blood Urea Nitrogen 29 H 9-23 mg/dL Creatinine 2.46 H 0.700-1.30 mg/dL Glomerular Filtration Rate Calc 32 >90 mL/min BUN/Creatinine Ratio 11.8 10.0-20.0 Serum Glucose 840 *H 74-106 mg/dL Calcium Level 8.0 L 8.7-10.4 mg/dL Total Bilirubin < 0.2 L 0.2-1.0 mg/dL Aspartate Amino Transferase (AST) 12 <34 U/L Alanine Aminotransferase (ALT) 14 7-40 U/L Alkaline Phosphatase 302 H 46-116 U/L Total Protein 5.9 5.7-8.2 g/dL Albumin 3.1 L 3.2-4.8 g/dL Eosinophils (%) (Auto) 0.0 0.0-7.0 % Eosinophils # (Auto) 0 0-0.8 10 ^3/uL Basophils # (Auto) 0.1 0-0.2 10 ^3/uL Nucleated Red Blood Cells 0.1 % Large Platelets Few Serum Osmolality 420 H 278-298 mOsm/kg Lactic Acid Level 1.9 0.4-2.0 mmol/L Phosphorus Level 9.4 H 2.4-5.1 mg/dL Magnesium Level 3.6 H 1.6-2.6 mg/dL Creatine Kinase 151 46-171 U/L Lipase 52 12-53 U/L Beta-Hydroxybutyric Acid > 4.500 H < 0.4 mmol/L PATIENT: SUKHWINDER CHEEMAACCT: [id number] UNIT: [id number] : 1980 LOC: ER ROOM / BED: / AGE / SEX: 44 / M ADM STATUS: REG ER SERVICE 1249 ORDERING PHYSICIAN: SILVER MOSS DO PROCEDURE(s): CXRP - CHEST PORTABLE REASON: ALOC, HIGH BS, H/O DKA ORDER NUMBER(s): [id number], ACCESSION NUMBER(s): [id number] CHEST RADIOGRAPH Indication: ALOC, HIGH BS, H/O DKA Technique: Single frontal view of the chest was obtained Comparison: XY CHEST XRAY 1 VIEW on DOS: 12/03/24, XY CHEST PORTABLE on DOS: 08/07/23, XY CHEST XRAY 1 VIEW on DOS: 06/29/23, XY CHEST PORTABLE on DOS: 05/01/23, XY CHEST XRAY 1 VIEW on DOS: 04/27/23 FINDINGS: Lines and Tubes: None Lungs: No focal consolidation. Pleura: No effusion. No pneumothorax. Cardiomediastinal contours: Unremarkable Bones: No acute osseous abnormality. IMPRESSION: No acute cardiopulmonary disease. ORDERING PHYSICIAN: SILVER MOSS DO PROCEDURE(s): CXRP - CHEST PORTABLE REASON: post intubation ORDER NUMBER(s): [id number], ACCESSION NUMBER(s): [id number] CHEST RADIOGRAPH Indication: post intubation Technique: Single frontal view of the chest was obtained Comparison: XY CHEST PORTABLE on DOS: 01/06/25, XY CHEST XRAY 1 VIEW on DOS: 12/03/24, XY CHEST PORTABLE on DOS: 08/07/23, XY CHEST XRAY 1 VIEW on DOS: 06/29/23, XY CHEST PORTABLE on DOS: 05/01/23, XY CHEST PORTABLE on DOS: 01/06/25 FINDINGS: Lines and Tubes: ET tube 1 cm from nata. Lungs: No focal consolidation. Pleura: No effusion. No pneumothorax. Cardiomediastinal contours: Unremarkable Bones: No acute osseous abnormality. IMPRESSION: No acute cardiopulmonary disease. ET tube 1 cm from nata. Retract 2cm. Assessment/Plan Assessment/Plan DKA (diabetic ketoacidosis) Altered mental status Atrial fibrillation Acute renal injury Hypernatremia Metabolic encephalopathy Hyperphosphatemia Sepsis, unspecified Symptomatic anemia Generalized weakness Plan 1. Admit to intensive care unit 2. Breathing treatment 3. Pain control management 4. IV antibiotic management 5. Management of fluids and electrolytes 6. Consultation for pulmonology/nephrology 7. Diagnostic test chest x-ray 8. DVT prophylaxis-on heparin 9. Repeat labs CBC, CMP in a.m. 10. Home medication reviewed and reconciled 11. Continue with current medical management 12. Treatment plan discussed with patient and RN. Patient verbalized understanding. Plan discussed with: Patient, Other (RN) My Orders Orders - KAREN SALINAS DNP Procedure Category Date Status Time Type And Screen BBK 01/06/25 In Process 14:49 Heparin Sodium PHA 01/06/25 In Process (Porcine) 22:00 Piperacillin-Tazob PHA 01/06/25 In Process 3.375gm (Zosyn 3.375g 22:00 Vancomycin Per PHA 01/06/25 Logged Pharmacy 15:00 *Dr. Cr Rocha CONS 01/06/25 Transmitted -[place] 14:49 Consistent DIET 01/06/25 Transmitted Carb(Ccho)Diabetes Dinner Lactated Ringer's PHA 01/06/25 In Process 19:15 Allergies SATHYA 01/06/25 In Process 14:49 Code Status CODE 01/06/25 Transmitted 14:49 Oxygen Per Hour RT 01/06/25 Transmitted 14:49 Hydrocodone-Acet PHA 01/06/25 In Process 5/325mg Tab ([place] 15:00 Ondansetron Hcl PHA 01/06/25 In Process (Zofran) 15:00 Docusate Sodium PHA 01/06/25 In Process Capsule ([place] 15:00 Fall Risk Precautions SATHYA 01/06/[address] 14:49 Complete Blood Count LAB 01/07/25 Verified 04:00 Comprehensive LAB 01/07/25 Verified Metabolic Panel 04:00 Condition: Critical SATHYA 01/06/25 In Process 14:49 Acetaminophen Tablet PHA 01/06/25 In Process (Tylenol Tablet) 15:00 Maintain Bed Rest SATHYA 01/06/25 In Process 14:49 Sequential SATHYA 01/06/25 In Process Compression Device Problem List: (1) DKA (diabetic ketoacidosis) (2) Symptomatic anemia (3) Altered mental status (4) Acute kidney injury (5) Metabolic encephalopathy (6) Hypernatremia (7) Hyperphosphatemia (8) Atrial fibrillation (9) Sepsis, unspecified organism (10) Generalized weakness Date of Service: Jan 06, 2025 Billing Provider: KAREN SALINAS DNP Common Visit Codes: [id number] INP/OBS CARE (HIGH) KAREN SALINAS DNP Jan 06, 2025 16:13
[2025-01-06] MEDS ORDERED: MORPHINE SULFATE INJ 2 MG/ml SYRG IV PRN (16:15)
[2025-01-06] MEDS ORDERED: NITROGLYCERIN 0.4 MG SL TAB SL PRN (16:15)
[2025-01-06 16:35] LABS: Urine Protein, UAD 3+ (Negative)
[2025-01-06 16:40] LABS: Amphetamine Screen, Urine Neg (NEGATIVE); Barbiturate Scree,Urine Neg (NEGATIVE); Benzodiazephine Screen, Urine Neg (NEGATIVE); Cannabinoid Screen, Urine Pos (NEGATIVE); Cocaine Screen, Urine Neg (NEGATIVE); Opiate Scree,Urine Neg (NEGATIVE); Phencyclidine Screen, Urine Neg (NEGATIVE)
[2025-01-06] MEDS: SODIUM BICARB 50mEq/50ml Vial 50 ML in SOD CHL 0.45% 1,000 ML IV ONE (16:42)
[2025-01-06 16:45] LABS: Base Excess -16.4 mmol/L (-2.0-3.0)
[2025-01-06 16:50] LABS: Anisocytosis Slight
[2025-01-06 16:52] LABS: Total Cells Counted 100.0 (100)
[2025-01-06] MEDS ORDERED: SODIUM CHLORIDE 0.9% 1,000 ML IV SCH (19:15)
--- NOTE | 2025-01-06 19:35 | DVH ---
CHEST RADIOGRAPH Indication: NG TUBE CONFIRMATION Technique: Single frontal view of the chest was obtained Comparison: XY CHEST PORTABLE on DOS: 01/06/25, XY CHEST PORTABLE on DOS: 01/06/25, XY CHEST XRAY 1 VIE W on DOS: 12/03/24, XY CHEST PORTABLE on DOS: 08/07/23, XY CHEST XRAY 1 VIEW on DOS: 06/29/23, XY CHEST PORTABLE on DOS: 01/06/25 FINDINGS: Lines and Tubes: ET tube 4 cm from nata. NG tube in stomach Lungs: No focal consolidation. Pleura: No effusion. No pneumothorax. Cardiomediastinal contours: Unremarkable Bones: No acute osseous abnormality. IMPRESSION: No acute cardiopulmonary disease. ET tube 1 cm from nata. Retract 2cm .
[2025-01-06] MEDS: VANCOMYCIN 1GM/200ML PM 200 ML IV ONE (21:17)
[2025-01-06] MEDS: HYDROCORTISONE SOD SUCC 100 MG/2ML INJ VIAL IV ONE (21:18)
[2025-01-06] MEDS: HEPARIN SODIUM (PORCINE) 5000 UNITS/ML 1ML VIAL SC SCH (21:34)
[2025-01-06] MEDS: PIPERACILLIN-TAZOB 3.375GM 100 ML IV SCH (22:22)
[2025-01-06 23:01] LABS: Hematocrit 23.9 % (41.0-53.0); Hemoglobin 7.3 g/dL (13.5-17.5)
[2025-01-06 23:18] LABS: Base Excess -3.1 mmol/L (-2.0-3.0)
[2025-01-06] MEDS: LACTATED RINGER'S 1,000 ML IV SCH (23:28)
[2025-01-06 23:57] LABS: Anion Gap 26 (5-15); Carbon Dioxide 20 mmol/L (20-31)
[2025-01-07] VITALS (106 sets, daily range): BP systolic 84–132; BP diastolic 51–76; PULSE 94–112; RESP 12–22; TEMP 97.9–99.9; O2SAT 98–100
[2025-01-07 00:02] LABS: BUN/Creatinine Ratio 16.7 (10.0-20.0)
[2025-01-07 00:09] LABS: Blood Urea Nitrogen 35 mg/dL (9-23); Calcium 7.0 mg/dL (8.7-10.4); Chloride 124 mmol/L (98-107); Glucose 183 mg/dL (74-106); Potassium 3.1 mmol/L (3.5-5.1)
[2025-01-07 00:11] LABS: Sodium 170 mmol/L (136-145)
--- NOTE | 2025-01-07 01:17 | DVH ---
CT HEAD WITHOUT CONTRAST: HISTORY: aloc COMPARISON: CT HEAD WITHOUT CONTRAST on DOS: 06/29/23 CONTRAST: Study was performed without contrast. TECHNIQUE: Axial images from the skull base to the vertex with coronal and sagittal reformatted image s. Dose reduction technique was used on this scan by utilizing automated exposure control, adjustment of the mA and/or kV according to the patient size. DICOM format image data available to non-affili ed external healthcare facilities or entities on a secure, media free, reciprocally searchable basis with patient authorization for at least a 12 month period after the study. FINDINGS: No acute territorial infarct, intracranial hemorrhage, or mass effect. White matter appears normal fo r age. Basal cisterns grossly unremarkable. Cerebellum and posterior fossa structures without focal abnormality. The ventricles are unremarkable. There is mild mucosal thickening within the right maxillary antrum. The paranasal sinuses and mastoi d air cells are otherwise clear. The osseous structures are unremarkable. IMPRESSION: 1. No acute territorial infarct, intracranial hemorrhage, or mass effect.
--- NOTE | 2025-01-07 01:34 | DVH ---
CT ABDOMEN AND PELVIS WITHOUT CONTRAST: HISTORY: aloc COMPARISON: CT CT AB PEL WO CON-NO ORAL OR IV on DOS: 12/02/24, CT CT AB PEL WO CON-NO ORAL OR IV on D OS: 10/19/23, CT CT AB PEL WO CON-NO ORAL OR IV on DOS: 08/07/23, CT CT AB PEL WO CON-NO ORAL OR IV on DOS: 04/18/23, CT CT AB PEL WO CON-NO ORAL OR IV on DOS: 02/01/23 CONTRAST: IV contrast: None TECHNIQUE: Spiral CT performed from the dome of the diaphragm to the pubic symphysis without IV contr ast. Dose reduction technique was used on this scan by utilizing automated exposure control, adjustment of the mA and/or kV according to the patient size. DICOM format image data available to non-affiliated external healthcare facilities or entities on a secure, media free, reciprocally searchable basis wit h patient authorization for at least a 12 month period after the study. FINDINGS: Limited evaluation of the solid organs in the absence of IV contrast. Indirect Sales Representative: Unremarkable Lung bases: There are dependent atelectatic changes. Hepatobiliary: There is periportal edema. The gallbladder is distended with mild hyperdensity. Normal splenic parenchyma. The pancreas is unremarkable. : The kidneys are without solid mass, hydronephrosis or nephrolithiasis. A Owens catheter is presen t within the urinary bladder. The adrenal glands are unremarkable.. GI: No evidence for bowel obstruction. No mesenteric stranding or wall thickening. No intraperitoneal adenopathy, masses or fluid. A nasogastric tube and rectal tube are noted. The appendix is normal. Retroperitoneum: There are shotty retroperitoneal and right inguinal nodes. Trace fluid in the pelvis . Cardiovascular: Mild atherosclerotic vascular calcifications. Musculoskeletal: No focal lytic or blastic lesion. No fracture or acute derangement. IMPRESSION: 1. Nonspecific periportal edema. 2. Incidental findings as detailed.
[2025-01-07 04:20] LABS: Mean Corpuscular Hemoglobin 22.7 pg (28.0-32.0); Nucleated Red Blood Cells % 0.2 %
[2025-01-07 04:22] LABS: Hematocrit 23.7 % (41.0-53.0); Hemoglobin 7.3 g/dL (13.5-17.5); Mean Corpuscular Volume 73.2 fL (80.0-100.0)
[2025-01-07 04:35] LABS: Alanine Aminotransferase 17 U/L (7-40); Anion Gap 18 (5-15); BUN/Creatinine Ratio 14.6 (10.0-20.0); Glucose 104 mg/dL (74-106)
[2025-01-07 04:41] LABS: Chloride 123 mmol/L (98-107); Potassium 2.5 mmol/L (3.5-5.1); Sodium 173 mmol/L (136-145)
[2025-01-07 04:42] LABS: Albumin 2.9 g/dL (3.2-4.8); Alkaline Phosphatase 267 U/L (46-116); Bilirubin, Total < 0.2 mg/dL (0.2-1.0); Blood Urea Nitrogen 33 mg/dL (9-23); Calcium 7.1 mg/dL (8.7-10.4); Carbon Dioxide 32 mmol/L (20-31); Total Protein 5.3 g/dL (5.7-8.2)
[2025-01-07] MEDS ORDERED: DEXTROSE (50%) 50ML SYRG IV PRN (05:45)
[2025-01-07] MEDS: POTASSIUM CHL 20MEQ/100ML 100 ML IV SCH (06:09)
[2025-01-07] MEDS: D5W/SOD CHL 0.45% 1,000 ML IV SCH (06:09)
[2025-01-07 06:51] LABS: Base Excess 7.5 mmol/L (-2.0-3.0)
[2025-01-07] MEDS ORDERED: ACCU-CHEK COMFORT CURVE STRIP VI SCH (08:00)
[2025-01-07] MEDS: ACCU-CHEK COMFORT CURVE STRIP VI SCH (08:17)
[2025-01-07] MEDS: InsuLIN REG 1unit/0.01ml Soln (100units/ml) SC SCH (08:17)
[2025-01-07 09:03] LABS: Hematocrit 29.0 % (41.0-53.0); Hemoglobin 9.3 g/dL (13.5-17.5)
[2025-01-07] MEDS: FAMOTIDINE (10MG/ML) 2ML VL IV SCH (09:37)
[2025-01-07] MEDS ORDERED: FAMOTIDINE (10MG/ML) 2ML VL IV SCH (10:00)
[2025-01-07] MEDS ORDERED: D5W/SOD CHL 0.45% 1,000 ML IV SCH (10:45)
--- NOTE | 2025-01-07 12:45 | ECG ---
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
[2025-01-07] MEDS: D5W 5% 1,000 ML IV SCH (13:10)
[2025-01-07 13:42] LABS: Potassium 3.8 mmol/L (3.5-5.1)
[2025-01-07 13:43] LABS: Anion Gap 13 (5-15)
[2025-01-07 13:49] LABS: BUN/Creatinine Ratio 12.6 (10.0-20.0)
[2025-01-07 13:51] LABS: Blood Urea Nitrogen 32 mg/dL (9-23); Calcium 6.8 mg/dL (8.7-10.4); Carbon Dioxide 33 mmol/L (20-31); Chloride 122 mmol/L (98-107); Glucose 121 mg/dL (74-106); Sodium 168 mmol/L (136-145)
--- NOTE | 2025-01-07 13:52 | DVHPNRES ---
Progress Note Date Seen: Jan 07, 2025 Resident Creating Document: NIKO IBARRA Medical Necessity Reason Pt with a Central, PICC or Fol: Yes The following are medically ne: Central Line, Owens Catheter Medical Necessity Reason Patient is 44-year-old man with type 1 diabetes on insulin presented to the ED in a comatose state. According to the patient's father who was at the bedside today, patient does have insulin and all supplies (glucometer, strips) to check his blood glucose; however, patient has been noncompliant. Patient lives alone in a trailer and communicates with his father regularly. According to the father, the last time he heard from his son was January 02. When he tried reaching the son on Monday or Monday he did not hear back from him. Father went to visit the son and that was when he found him unresponsive and called 911. Of note patient was managed here on in November 2024 for DKA as well. Subjective Review of Systems Unable to assess Objective vital signs Vital Sign Date Time Temp Pulse Resp B/P (MAP) Pulse Ox O2 Delivery O2 Flow Rate FiO2 01/07/25 11:30 111 16 118/60 (79) 100 30 01/07/25 10:00 Mechanical Ventilator+ 01/07/25 06:45 98.2 208.8 01/06/25 13:00 0 Total Intake and Output 01/06/25 01/06/25 01/07/25 15:00 23:00 07:00 Intake Total 2126.083 ml 1479.0185 ml 1752.45 ml Output Total 100 ml Balance 2126.083 ml 1479.0185 ml 1652.45 ml medications Current Medications Medications Dose Ordered Sig/Zaria Route Start Time Stop Time Status Last Admin Dose Admin Norepinephrine Bitartrate 250 ml @ 3.75 mls/hr Q24H IV 01/06/25 14:00 01/06/25 14:00 18.75 MLS/HR Propofol 100 ml @ 1.5 mls/hr Q24H IV 01/06/25 14:40 01/07/25 10:27 13.5 MLS/HR Heparin Sodium (Porcine) 5,000 units Q12HR SC 01/06/25 22:00 01/07/25 09:40 5,000 UNITS Piperacillin Sod/ Tazobactam Sod 100 ml @ 25 mls/hr Q8HR IV 01/06/25 22:00 01/07/25 05:05 25 MLS/HR Vancomycin HCl 0 ml @ 0 mls/hr UD IV 01/06/25 15:00 Acetaminophen/ Hydrocodone Bitart 1 tab Q4HP PRN PO 01/06/25 15:00 Ondansetron HCl 4 mg Q4HP PRN IV 01/06/25 15:00 Docusate Sodium 100 mg BIDPRN PRN PO 01/06/25 15:00 Acetaminophen 650 mg Q6HP PRN PO 01/06/25 15:00 Nitroglycerin 0.4 mg Q5MINP PRN SL 01/06/25 16:15 Morphine Sulfate 2 mg Q30M PRN IV 01/06/25 16:15 Midazolam HCl 50 ml @ 1 mls/hr Q24H IV 01/06/25 14:10 01/06/25 14:20 1 MLS/HR Famotidine 20 mg Q12HR IV 01/07/25 10:00 UNV Famotidine 20 mg DAILY IV 01/07/25 10:00 01/07/25 09:37 20 MG Diagnostic Test (Pha) 1 strip IQ4HR 01/07/25 08:00 Cancel Insulin Human Regular IQ4HR SC 01/07/25 08:00 Dextrose 50 ml UD PRN IV 01/07/25 05:45 Diagnostic Test (Pha) 1 strip IQ4HR 01/07/25 08:00 01/07/25 12:47 1 STRIP Purified Water 250 ml Q4HR GT 01/07/25 14:00 Dextrose 1,000 ml @ 100 mls/hr Q10H IV 01/07/25 12:00 01/07/25 13:10 100 MLS/HR Examination General Appearance: Unresponsive on arrival. Sedate and intubated HEENT: Atraumatic Respiratory: fair air entering Cardiovascular: Tachycardia, No murmurs Abdominal: NO distention, no tenderness, bowel sounds present, no scars noted Extremities: dry, scaling, erythematous, warm, ulcer left foot, right foot Skin: dry and scaling Neuro: Sedated on drips Psych/Mental Status: unable to assess laboratory and microbiology Laboratory Tests 01/07/25 08:38 01/07/25 03:20 Test 01/07/25 13:00 Range/Units Serum Glucose Pending Microbiology Date/Time Source Procedure Growth Status 01/06/25 15:14 Sputum Endotracheal Wash Gram Stain Pending Resulted 01/06/25 15:14 Sputum Endotracheal Wash Respiratory Culture - Preliminary Resulted Problem List/Assessment/Plan Problem List/Assessment/Plan Assessment and plan Neuro Metabolic encephalopathy Uremic encephalopathy - Treat the underlying condition likely sepsis. - see plan below Cardiovascular: AFIB on EKG Prolonged QTc interval Ventricular bigeminy - Amiodarone drip 1 time Gastrointestinal Gastroparesis( per father) Endocrine/Metabolic: Diabetic Ketoacidosis Anion gap metabolic acidosis Hypernatremia Hypermagnesemia Hyperphosphatemia Hypokalemia Severe protein calorie malnutrition, BMI 15.5 - Free water q4hrs - D5 W - CMP-7 Q4hrs - Bicarb stopped 01/07/2025 - NPO, now will restart feeding tomorrow Genitourinary RADHA likely due to ATN/VMN CKD 3 - Free water q4hrs- - CMP-7 Q4hrs - Nephrology consult Hematology Acute anemia Thrombocytosis likely secondary to sepsis Treat the underlying infection S/P 1 unit of PRBC Infections Disease Cellulitis bilateral Diabetic foot ulcer, left foot Severe Sepsis with septic shock - Urine culture pending - Blood cultures pending - Wound consult - Vancomycin and Zosyn - Betadine - Repeat CBC, CMP daily Eyes ( Per father) : low vision Retinal detachment Diabetic retinopathy - Recommends ophthalmology follow up outpatient IV access 01/06/2025 - Right Femoral - Right IJ - Right arm midline - Left arm peripheral Drips: Propofol,levophed Antibiotics: Zosyn and vancomycin Advance planning discussed with father. He is considering DNR for him as patient is unable to care for self Critical care time: 45 minutes Case and plan discussed with Dr. Lehman Plan discussed with: Other (father and nurse) My Orders My Orders Orders - NIKO IBARRA RESIDENT Procedure Category Date Status Time Blood Culture RICHARD 01/07/25 In Process 11:08 * Lumite Injector CONS 01/07/25 Transmitted Consult 11:22 Dietary Evaluation Review Recommendations by RD: Increase Calorie Intake Comments: Nutrition Recommendation: 1) Vital AF 1.2Cal @ 25ml/hr along with Pro-stat 1 pk BID. start @ 20ml/hr, increase 10ml/hr Q4H until goal is reached. TF @ goal volume along with propofol, IV D5wNS0.45%, and Pro-stat provides 1684 kcal (100% energy needs), 75gm protein (100% protein needs), 487ml free water. 2) TPN to meet 75% estimated needs if remains NPO 3) Bryce 1 pk BID for DFU Expected Outcomes/Goals: DFU to improve To maintain/gain weight To meet at least 75% estimated needs Fu 2-3 days Interpretation of weight loss: up to 5% in 1 month Muscle Mass (Severe): Mod to Severe Depletion Protein Calorie Malnutrition: Non-Severe Is there a minimum of two crit: Yes Date of Service: Jan 07, 2025 Billing Provider: PAM LEHMAN MD Common Visit Codes: NOT BILLABLE NIKO IBARRA RESIDENT Jan 07, 2025 13:52 PAM LEHMAN MD Jan 08, 2025 16:40
[2025-01-07] MEDS ORDERED: POTASSIUM CHL 20 Meq TABLET PO ONE (14:00)
[2025-01-07] MEDS: BUMETANIDE 2.5mg/10ml (0.25 mg/ml) INJ IV ONE (14:22)
[2025-01-07] MEDS: FREE WATER GT SCH (14:50)
[2025-01-07] MEDS: POTASSIUM EFFERVESENT TAB 25 MEQ GT ONE (14:50)
--- NOTE | 2025-01-07 16:48 | DVH ---
CHEST RADIOGRAPH Indication: intubated Technique: Single frontal view of the chest was obtained Comparison: XY CHEST PORTABLE on DOS: 01/06/25, XY CHEST PORTABLE on DOS: 01/06/25, XY CHEST PORTABLE o n DOS: 01/06/25 FINDINGS: Lines and Tubes: Endotracheal tube is 4.8 cm above the nata. Enteric tube is below the left diaphra gm in the stomach Lungs: No focal consolidation. Pleura: No effusion. No pneumothorax. Cardiomediastinal contours: Unremarkable Bones: No acute osseous abnormality. IMPRESSION: 1. Endotracheal tube 4.8 cm above the nata. 2. Enteric tube below the left diaphragm in the stomach. HS:Y
--- NOTE | 2025-01-07 19:42 | DVHINCON2 ---
Date of service: Jan 07, 2025 Reason for Consultation RADHA History of Present Illness 44 years old male with past medical history of diabetes history of acute kidney injury presented with chief complaints of altered mental status nephrology consulted for hypernatremia and acute renal failure patient is seen and examined in ICU currently intubated and sedated Past Medical History Unknown Past Surgical History Unknown Allergies: Coded Allergies: NO KNOWN ALLERGIES (Unverified , 02/01/23) Home Meds Active Scripts Metoclopramide Hcl (Reglan) 5 Mg Tab, 5 MG PO TID for 14 Days, #42 TAB Prov:NGA GARCIA RESIDENT 12/06/24 Pantoprazole Sodium Sesquihydr (Pantoprazole Sodium) 40 Mg Tab, 40 MG PO DAILY@0600 for 30 Days, #30 TAB Prov:NGA GARCIA RESIDENT 12/06/24 Current Medications Current Medications Medications (Trade) Dose Ordered Sig/Zaria Route PRN Reason Start Time Stop Time Status Last Admin Heparin Sodium (Porcine) 5,000 units Q12HR SC 01/06/25 22:00 01/07/25 09:40 Piperacillin Sod/ Tazobactam Sod 100 ml @ 25 mls/hr Q8HR IV 01/06/25 22:00 01/07/25 14:22 Famotidine (Pepcid Injection) 20 mg Q12HR IV 01/07/25 10:00 UNV Famotidine (Pepcid Injection) 20 mg DAILY IV 01/07/25 10:00 01/07/25 09:37 Dextrose/Sodium Chloride 1,000 ml @ 100 mls/hr Q10H IV 01/07/25 05:45 01/07/25 11:18 DC 01/07/25 06:09 Potassium Chloride 100 ml @ 50 mls/hr Q2H IV 01/07/25 05:45 01/07/25 09:44 DC 01/07/25 07:35 Diagnostic Test (Pha) (Accu-Chek Comfort Curve T) 1 strip IQ4HR 01/07/25 08:00 Cancel Insulin Human Regular (InsuLIN R) IQ4HR SC 01/07/25 08:00 01/07/25 16:12 Dextrose 50 ml UD PRN IV Blood Sugar LESS THAN 60 01/07/25 05:45 Diagnostic Test (Pha) (Accu-Chek Comfort Curve T) 1 strip IQ4HR 01/07/25 08:00 01/07/25 16:06 Dextrose/Sodium Chloride 1,000 ml @ 150 mls/hr Q6H40M IV 01/07/25 10:45 01/07/25 11:52 DC Purified Water 250 ml Q4HR GT 01/07/25 14:00 01/07/25 17:58 Dextrose 1,000 ml @ 100 mls/hr Q10H IV 01/07/25 12:00 01/07/25 13:10 Family History: Alzheimer's disease Grandparent Arthritis G8 MOTHER Diabetes mellitus FH: kidney disease G8 FATHER Hypertension G8 MOTHER G8 FATHER Review of Systems Unknown H&P Exam Vital Signs/I&O Vital Sign Date Time Temp Pulse Resp B/P (MAP) Pulse Ox O2 Delivery O2 Flow Rate FiO2 01/07/25 19:00 84/51 01/07/25 18:45 98.1 98 15 99 208.6 01/07/25 18:20 30 01/07/25 18:00 Mechanical Ventilator+ 01/06/25 13:00 0 Intake and Output 01/06/25 01/07/25 19:00 07:00 Intake Total 3336.1015 ml 2021.45 ml Output Total 100 ml Balance 3336.1015 ml 1921.45 ml IV Total 3336.1015 ml 1721.45 ml Blood Product 300 ml Output Urine Total 100 ml Physical Exam Patient intubated and sedated Fair bilateral air entry Bilateral lower extremities very dry , crusting Labs/Diagnostic Data Labs/Diagnostic Data Laboratory Tests Test 01/07/25 18:07 01/07/25 16:04 01/07/25 14:30 01/07/25 13:00 Range/Units Sodium Level 163 *H 167 *H 168 #*H 136-145 mmol/L POC Glucose 144 H 70-106 mg/dl Potassium Level 3.8 3.5-5.1 mmol/L Chloride Level 122 H 98-107 mmol/L Carbon Dioxide Level 33 H 20-31 mmol/L Anion Gap 13 5-15 Blood Urea Nitrogen 32 H 9-23 mg/dL Creatinine 2.54 H 0.700-1.30 mg/dL Glomerular Filtration Rate Calc 31 >90 mL/min BUN/Creatinine Ratio 12.6 10.0-20.0 Serum Glucose 121 H 74-106 mg/dL Calcium Level 6.8 L 8.7-10.4 mg/dL Test 01/07/25 12:42 01/07/25 08:38 01/07/25 07:38 01/07/25 06:41 Range/Units POC Glucose 122 H 108 H 70-106 mg/dl Hemoglobin 9.3 #L 13.5-17.5 g/dL Hematocrit 29.0 #L 41.0-53.0 % Blood Gas Specimen Type Arterial Blood Gas Sample Site Left radial Blood Gas Patient Temperature 37.0 Arterial Blood Date Drawn [id number] Arterial Blood pH 7.477 H 7.350-7.450 Arterial Blood Partial Pressure CO2 43.9 35.0-48.0 mmHg Arterial Blood Partial Pressure O2 110.8 H 83.0-108.0 mmHg Arterial Blood HCO3 31.7 H 21.0-28.0 mmol/L Arterial Blood Oxygen Saturation 97.9 94.0-98.0 % Arterial Blood Base Excess 7.5 H -2.0-3.0 mmol/L Arterial Blood Oxyhemoglobin 97.0 94.0-98.0 % Arterial Blood Carboxyhemoglobin 0.6 0.5-1.5 % Arterial Blood Methemoglobin 0.3 0.0-1.5 % Kyle Test Modified Blood Gas Total Hemoglobin 7.90 L 13.5-17.5 g/dL Blood Gas Set Respiration Rate 15.0 Blood Gas Modality Vent - ac FiO2 % 30.0 Blood Gas Tidal Volume 450.0 Blood Gas PEEP or CPAP 5.0 Test 01/07/25 04:34 01/07/25 03:20 01/07/25 03:13 01/07/25 01:35 Range/Units POC Glucose 101 110 H 121 H 70-106 mg/dl White Blood Count 18.7 #H 4.4-10.8 10^3/uL Red Blood Count 3.24 L 4.5-5.90 10^6/uL Hemoglobin 7.3 L 13.5-17.5 g/dL Hematocrit 23.7 L 41.0-53.0 % Mean Corpuscular Volume 73.2 #L 80.0-100.0 fL Mean Corpuscular Hemoglobin 22.7 L 28.0-32.0 pg Mean Corpuscular Hemoglobin Concent 31.0 L 32.0-36.0 g/dL Red Cell Distribution Width 19.2 H 11.8-14.3 % Platelet Count 704 H 140-450 10^3/uL Mean Platelet Volume 6.2 L 6.9-10.8 fL Neutrophils (%) (Auto) 96.2 H 37.0-80.0 % Lymphocytes (%) (Auto) 1.1 L 10.0-50.0 % Monocytes (%) (Auto) 1.8 0.0-12.0 % Eosinophils (%) (Auto) 0.7 0.0-7.0 % Basophils (%) (Auto) 0.2 0.0-2.0 % Neutrophils # (Auto) 18.0 H 1.6-8.6 10 ^3/uL Lymphocytes # (Auto) 0.2 L 0.4-5.4 10 ^3/uL Monocytes # (Auto) 0.3 0-1.3 10 ^3/uL Eosinophils # (Auto) 0.1 0-0.8 10 ^3/uL Basophils # (Auto) 0 0-0.2 10 ^3/uL Nucleated Red Blood Cells 0.2 % Sodium Level 173 *H 136-145 mmol/L Potassium Level 2.5 *L 3.5-5.1 mmol/L Chloride Level 123 H 98-107 mmol/L Carbon Dioxide Level 32 #H 20-31 mmol/L Anion Gap 18 H 5-15 Blood Urea Nitrogen 33 H 9-23 mg/dL Creatinine 2.26 H 0.700-1.30 mg/dL Glomerular Filtration Rate Calc 36 >90 mL/min BUN/Creatinine Ratio 14.6 10.0-20.0 Serum Glucose 104 74-106 mg/dL Calcium Level 7.1 L 8.7-10.4 mg/dL Total Bilirubin < 0.2 L 0.2-1.0 mg/dL Aspartate Amino Transferase (AST) 29 <34 U/L Alanine Aminotransferase (ALT) 17 7-40 U/L Alkaline Phosphatase 267 H 46-116 U/L Total Protein 5.3 L 5.7-8.2 g/dL Albumin 2.9 L 3.2-4.8 g/dL Random Vancomycin Level 22.9 H 5-10 ug/mL Test 01/07/25 00:39 01/06/25 23:08 01/06/25 22:48 01/06/25 22:45 Range/Units POC Glucose 116 H 175 H 70-106 mg/dl Blood Gas Specimen Type Arterial Blood Gas Sample Site Right radial Blood Gas Patient Temperature 37.0 Arterial Blood Date Drawn [id number] Arterial Blood pH 7.461 H 7.350-7.450 Arterial Blood Partial Pressure CO2 29.0 L 35.0-48.0 mmHg Arterial Blood Partial Pressure O2 62.4 L 83.0-108.0 mmHg Arterial Blood HCO3 20.2 L 21.0-28.0 mmol/L Arterial Blood Oxygen Saturation 91.0 L 94.0-98.0 % Arterial Blood Base Excess -3.1 L -2.0-3.0 mmol/L Arterial Blood Oxyhemoglobin 89.6 L 94.0-98.0 % Arterial Blood Carboxyhemoglobin 0.9 0.5-1.5 % Arterial Blood Methemoglobin 0.6 0.0-1.5 % Kyle Test Modified Blood Gas Total Hemoglobin 7.80 L 13.5-17.5 g/dL Blood Gas Set Respiration Rate 15.0 Blood Gas Modality Vent - ac FiO2 % 30.0 Blood Gas Tidal Volume 450.0 Blood Gas PEEP or CPAP 5.0 Specimen Drawn By Hemoglobin 7.3 L 13.5-17.5 g/dL Hematocrit 23.9 #L 41.0-53.0 % Sodium Level 170 #*H 136-145 mmol/L Potassium Level 3.1 L 3.5-5.1 mmol/L Chloride Level 124 #H 98-107 mmol/L Carbon Dioxide Level 20 # 20-31 mmol/L Anion Gap 26 H 5-15 Blood Urea Nitrogen 35 H 9-23 mg/dL Creatinine 2.10 H 0.700-1.30 mg/dL Glomerular Filtration Rate Calc 39 >90 mL/min BUN/Creatinine Ratio 16.7 10.0-20.0 Serum Glucose 183 #H 74-106 mg/dL Calcium Level 7.0 L 8.7-10.4 mg/dL Test 01/06/25 21:29 01/06/25 20:14 01/06/25 16:39 01/06/25 16:10 Range/Units POC Glucose 210 H 267 H 70-106 mg/dl Blood Gas Specimen Type Arterial Blood Gas Sample Site Right radial Blood Gas Patient Temperature 37.0 Arterial Blood Date Drawn [id number] Arterial Blood pH 7.250 L 7.350-7.450 Arterial Blood Partial Pressure CO2 21.4 L 35.0-48.0 mmHg Arterial Blood Partial Pressure O2 154.0 H 83.0-108.0 mmHg Arterial Blood HCO3 9.2 L 21.0-28.0 mmol/L Arterial Blood Oxygen Saturation 98.7 H 94.0-98.0 % Arterial Blood Base Excess -16.4 L -2.0-3.0 mmol/L Arterial Blood Oxyhemoglobin 97.7 94.0-98.0 % Arterial Blood Carboxyhemoglobin 0.4 L 0.5-1.5 % Arterial Blood Methemoglobin 0.6 0.0-1.5 % Kyle Test Modified Blood Gas Total Hemoglobin 8.40 L 13.5-17.5 g/dL Blood Gas Set Respiration Rate 15.0 Blood Gas Modality Vent - ac FiO2 % 45.0 Blood Gas Tidal Volume 450.0 Blood Gas PEEP or CPAP 5.0 Urine Color Light-yellow Yellow Urine Clarity Clear Clear Urine pH 6.5 5.0-9.0 Urine Specific [place] 1.018 1.001-1.035 Urine Protein 3+ H Negative Urine Ketones 3+ H Negative Urine Blood 2+ H Negative /uL Urine Nitrite Negative Negative Urine Bilirubin Negative Negative Urine Urobilinogen Normal Negative mg/dL Urine Leukocyte Esterase Negative Negative /uL Urine RBC 44 0 - 3 /hpf Urine Microscopic WBC 5 H 0-3 /HPF Urine Squamous Epithelial Cells Few <5 /hpf Urine Bacteria Few H None Seen /hpf Urine Hyaline Casts Mod 0 - 2 /lpf Urine Glucose 4+ H Normal mg/dL Urine Opiates Screen Neg NEGATIVE Urine Fentanyl Screen Neg NEGATIVE Urine Barbiturates Screen Neg NEGATIVE Urine Phencyclidine Screen Neg NEGATIVE Urine Amphetamines Screen Neg NEGATIVE Urine Benzodiazepines Screen Neg NEGATIVE Urine Cocaine Screen Neg NEGATIVE Urine Cannabinoids Screen Pos NEGATIVE Test 01/06/25 15:31 01/06/25 15:00 01/06/25 14:07 01/06/25 13:12 Range/Units Blood Gas Specimen Type Arterial Blood Gas Sample Site Right radial Blood Gas Patient Temperature 37.0 Arterial Blood Date Drawn [id number] Arterial Blood pH 7.163 *L 7.350-7.450 Arterial Blood Partial Pressure CO2 21.1 L 35.0-48.0 mmHg Arterial Blood Partial Pressure O2 172.6 H 83.0-108.0 mmHg Arterial Blood HCO3 7.4 L 21.0-28.0 mmol/L Arterial Blood Oxygen Saturation 98.8 H 94.0-98.0 % Arterial Blood Base Excess -19.5 L -2.0-3.0 mmol/L Arterial Blood Oxyhemoglobin 97.7 94.0-98.0 % Arterial Blood Carboxyhemoglobin 0.4 L 0.5-1.5 % Arterial Blood Methemoglobin 0.7 0.0-1.5 % Kyle Test Modified Blood Gas Total Hemoglobin 8.50 L 13.5-17.5 g/dL Blood Gas Set Respiration Rate 20.0 Blood Gas Modality Vent - ac FiO2 % 60.0 Blood Gas Tidal Volume 450.0 Blood Gas PEEP or CPAP 5.0 Blood Gas Critical Value Read Back Yes Blood Gas Notified Whom melecio Adam Blood Gas Notified Time [id number] Blood Gas Notified By Merly riley White Blood Count 25.1 H 23.2 H 4.4-10.8 10^3/uL Red Blood Count 3.22 L 3.67 L 4.5-5.90 10^6/uL Hemoglobin 7.6 L 8.4 L 13.5-17.5 g/dL Hematocrit 26.8 #L 34.6 L 41.0-53.0 % Mean Corpuscular Volume 83.2 # 94.3 80.0-100.0 fL Mean Corpuscular Hemoglobin 23.5 L 22.8 L 28.0-32.0 pg Mean Corpuscular Hemoglobin Concent 28.2 L 24.2 L 32.0-36.0 g/dL Red Cell Distribution Width 21.1 H 22.3 H 11.8-14.3 % Platelet Count 851 *H 931 *H 140-450 10^3/uL Mean Platelet Volume 6.8 L 7.0 6.9-10.8 fL Neutrophils (%) (Auto) 87.7 H 37.0-80.0 % Lymphocytes (%) (Auto) 0.0 L 5.6 L 10.0-50.0 % Monocytes (%) (Auto) 6.2 0.0-12.0 % Basophils (%) (Auto) 0.5 0.0-2.0 % Neutrophils # (Auto) 20.3 H 1.6-8.6 10 ^3/uL Lymphocytes # (Auto) 1.3 0.4-5.4 10 ^3/uL Monocytes # (Auto) 1.4 H 0-1.3 10 ^3/uL Differential Total Cells Counted 100.0 100 Neutrophils % (Manual) 89 H 37.0-80.0 Band Neutrophils % (Manual) 4 Lymphocytes % (Manual) 3 L 10.0-50.0 Monocytes % (Manual) 4 0-12 Eosinophils % (Manual) 0 0-7 Basophils % (Manual) 0 0.0-2.0 Metamyelocytes % (manual) 0 Myelocytes % (Manual) 0 Promyelocytes % (Manual) 0 Blast Cells % (Manual) 0 Reactive Lymphocytes 0 Platelet Estimate Markedly increased Marked Large Platelets Few Hypochromasia (manual) Marked Anisocytosis (manual) Slight Troponin I High Sensitivity 15 5 7 </=54 ng/L Sodium Level 164 #*H 155 H 136-145 mmol/L Potassium Level 3.8 4.7 3.5-5.1 mmol/L Chloride Level 114 H 109 H 98-107 mmol/L Carbon Dioxide Level < 10 *L < 10 *L 20-31 mmol/L Anion Gap 40.99908 H 36.32593 H 5-15 Blood Urea Nitrogen 29 H 28 H 9-23 mg/dL Creatinine 2.46 H 2.63 H 0.700-1.30 mg/dL Glomerular Filtration Rate Calc 32 30 >90 mL/min BUN/Creatinine Ratio 11.8 10.6 10.0-20.0 Serum Glucose 840 *H 931 *H 74-106 mg/dL Calcium Level 8.0 L 8.3 L 8.7-10.4 mg/dL Total Bilirubin < 0.2 L < 0.2 L 0.2-1.0 mg/dL Aspartate Amino Transferase (AST) 12 14 <34 U/L Alanine Aminotransferase (ALT) 14 18 7-40 U/L Alkaline Phosphatase 302 H 388 H 46-116 U/L Total Protein 5.9 7.1 5.7-8.2 g/dL Albumin 3.1 L 3.7 3.2-4.8 g/dL Eosinophils (%) (Auto) 0.0 0.0-7.0 % Eosinophils # (Auto) 0 0-0.8 10 ^3/uL Basophils # (Auto) 0.1 0-0.2 10 ^3/uL Nucleated Red Blood Cells 0.1 % Serum Osmolality 420 H 278-298 mOsm/kg Lactic Acid Level 1.9 0.4-2.0 mmol/L Phosphorus Level 9.4 H 2.4-5.1 mg/dL Magnesium Level 3.6 H 1.6-2.6 mg/dL Creatine Kinase 151 46-171 U/L Lipase 52 12-53 U/L Beta-Hydroxybutyric Acid > 4.500 H < 0.4 mmol/L Test 01/06/25 12:58 Range/Units Blood Gas Specimen Type Arterial Blood Gas Sample Site Right radial Blood Gas Patient Temperature 37.0 Arterial Blood Date Drawn [id number] Arterial Blood pH 6.983 *L 7.350-7.450 Arterial Blood Partial Pressure CO2 < 14.1 *L 35.0-48.0 mmHg Arterial Blood Partial Pressure O2 129.1 H 83.0-108.0 mmHg Arterial Blood Oxygen Saturation 96.9 94.0-98.0 % Arterial Blood Oxyhemoglobin 95.7 94.0-98.0 % Arterial Blood Carboxyhemoglobin 0.5 0.5-1.5 % Arterial Blood Methemoglobin 0.7 0.0-1.5 % Kyle Test Yes Blood Gas Total Hemoglobin 8.30 L 13.5-17.5 g/dL Blood Gas Modality Room air FiO2 % 21.0 Blood Gas Critical Value Read Back yes Blood Gas Notified Whom melecio antony md Blood Gas Notified Time [id number] Blood Gas Notified By merly felix Microbiology Date/Time Source Procedure Growth Status 01/07/25 01:00 Nose MRSA Screen - Final Complete Assessment Acute kidney injury hemodynamic mediated Diabetic ketoacidosis Severe hypernatremia Recommendations Agree with D5W IV Insulin for sugar correction monitor renal function and sodium Plan discussed with: VIDHYA Mckeon MD Jan 07, 2025 19:42
[2025-01-08] VITALS (111 sets, daily range): BP systolic 81–151; BP diastolic 45–91; PULSE 74–104; RESP 12–22; TEMP 97.5–99.5; O2SAT 96–100
[2025-01-08] MEDS: diphenhdrAMINE HCL 50 MG/1 ML VL IV ONE (02:42)
[2025-01-08] MEDS: methylPREDNISolone SOD SUCC 40 MG/ML VL IV ONE (02:43)
[2025-01-08] MEDS ORDERED: MEROPENEM 2GM/ 250ML 250 ML IV SCH ×2 (03:45→10:00)
[2025-01-08 04:20] LABS: Hematocrit 27.8 % (41.0-53.0); Hemoglobin 8.6 g/dL (13.5-17.5); Mean Corpuscular Hemoglobin 23.4 pg (28.0-32.0); Mean Corpuscular Volume 75.3 fL (80.0-100.0); Nucleated Red Blood Cells % 0.1 %
[2025-01-08 04:37] LABS: Alanine Aminotransferase 33 U/L (7-40); Anion Gap 13 (5-15); BUN/Creatinine Ratio 11.7 (10.0-20.0); Carbon Dioxide 30 mmol/L (20-31); Potassium 4.2 mmol/L (3.5-5.1)
[2025-01-08] MEDS: MEROPENEM 1GM IVPB 50 ML IV SCH (04:37)
[2025-01-08 04:40] LABS: Albumin 2.6 g/dL (3.2-4.8); Alkaline Phosphatase 269 U/L (46-116); Bilirubin, Total 0.2 mg/dL (0.2-1.0); Blood Urea Nitrogen 34 mg/dL (9-23); Calcium 6.3 mg/dL (8.7-10.4); Chloride 114 mmol/L (98-107); Glucose 129 mg/dL (74-106); Sodium 157 mmol/L (136-145); Total Protein 4.9 g/dL (5.7-8.2)
--- NOTE | 2025-01-08 05:29 | DVH ---
EXAM: XR Chest, 1 View CLINICAL INDICATION: Pain TECHNIQUE: Frontal view of the chest. COMPARISON: XR Chest dated 01/07/2025 FINDINGS: LUNGS AND PLEURAL SPACES: Bibasilar atelectasis or pneumonia. No pneumothorax. HEART: Unremarkable. No cardiomegaly. MEDIASTINUM: Unremarkable. Normal mediastinal contour. BONES/JOINTS: Unremarkable. No acute fracture. TUBES, LINES AND DEVICES: Tracheostomy tube in satisfactory position. IMPRESSION: 1. Bibasilar atelectasis or pneumonia. 2. No significant change from the prior exam.
[2025-01-08 06:35] LABS: Base Excess 2.1 mmol/L (-2.0-3.0)
[2025-01-08 10:55] LABS: Magnesium 1.9 mg/dL (1.6-2.6)
[2025-01-08] MEDS: CALCIUM GLUC 1,000mg/50ml-NS 50 ML IV ONE (11:14)
[2025-01-08] MEDS: fentaNYL Drip 2500mCg/250mlNS 250 ML IV SCH (11:17)
--- NOTE | 2025-01-08 12:43 | DVHINCON2 ---
Date Seen: Jan 08, 2025 Reason for Consultation Bilateral foot wounds History of Present Illness Patient is 44-year-old man with type 1 diabetes on insulin presented to the ED in a comatose state. According to the patient's father who was at the bedside today, patient does have insulin and all supplies (glucometer, strips) to check his blood glucose; however, patient has been noncompliant. Patient lives alone in a trailer and communicates with his father regularly. According to the father, the last time he heard from his son was January 02. When he tried reaching the son on Monday or Monday he did not hear back from him. Father went to visit the son and that was when he found him unresponsive and called 911. Of note patient was managed here on in November 2024 for DKA as well. Past Medical History See H&P Past Surgical History See H&P Family History: Alzheimer's disease Grandparent Arthritis G8 MOTHER Diabetes mellitus FH: kidney disease G8 FATHER Hypertension G8 MOTHER G8 FATHER Allergies: Coded Allergies: Penicillins (Verified Adverse Reaction, Severe, ANAPHYLAXIS , 01/08/25) Piperacillin (Verified Adverse Reaction, Severe, ANAPHYLAXIS , 01/08/25) Tazobactam (Verified Adverse Reaction, Severe, ANAPHYLAXIS , 01/08/25) Home Meds Active Scripts Metoclopramide Hcl (Reglan) 5 Mg Tab, 5 MG PO TID for 14 Days, #42 TAB Prov:NGA GARCIA RESIDENT 12/06/24 Pantoprazole Sodium Sesquihydr (Pantoprazole Sodium) 40 Mg Tab, 40 MG PO DAILY@0600 for 30 Days, #30 TAB Prov:NGA GARCIA RESIDENT 12/06/24 Current Medications Current Medications Medications (Trade) Dose Ordered Sig/Zaria Route PRN Reason Start Time Stop Time Status Last Admin Purified Water 250 ml Q4HR GT 01/07/25 14:00 01/08/25 09:26 Meropenem 250 ml @ 83.3 mls/hr Q12HR IV 01/08/25 03:45 01/08/25 04:16 DC Meropenem 250 ml @ 83.3 mls/hr Q12HR IV 01/08/25 10:00 01/08/25 04:20 DC Meropenem 50 ml @ 17 mls/hr Q12HR IV 01/08/25 04:30 01/08/25 09:26 Fentanyl Citrate 250 ml @ 2.5 mls/hr Q24H IV 01/08/25 10:45 01/08/25 11:17 Vital Signs Vital Signs Date Time Temp Pulse Resp B/P (MAP) Pulse Ox O2 Delivery O2 Flow Rate FiO2 01/08/25 12:18 115/71 01/08/25 12:15 83 14 99 01/08/25 12:00 30 01/08/25 11:45 98.1 98.1 01/08/25 10:00 Mechanical Ventilator+ 01/06/25 13:00 0 Physical Exam Dermatological: Skin is dry with mild erythema and some maceration around the wound site No gross deformities noted Mild non-pitting edema present bilaterally Bilateral plantar foot wounds with purulent drainage on the left foot and eschar with surrounding cellulitis traveling up the leg Vascular: Dorsalis pedis and posterior tibial pulses are 1+ bilaterally Capillary refill is under 2 seconds Skin temperature is warm bilaterally Neurologic: Protective sensation is absent on the plantar forefoot bilaterally Monofilament testing reveals decreased sensation in multiple plantar sites Musculoskeletal: Range of motion at the ankle and MTP joints is within normal limits. Strength is 5/5 in all tested muscle groups. Gait is antalgic due to offloading of the affected limb. Labs/Diagnostic Data Labs Test 01/08/25 11:13 01/08/25 10:37 01/08/25 08:18 01/08/25 06:29 Range/Units POC Glucose 197 H 70-106 mg/dl Stool Occult Blood Positive Negative Stool Occult Blood Sample #3 Negative Stool for White Cells Moderate Sodium Level 152 #H 136-145 mmol/L Blood Gas Specimen Type Arterial Blood Gas Sample Site Left radial Blood Gas Patient Temperature 37.0 Arterial Blood Date Drawn [id number] Arterial Blood pH 7.428 7.350-7.450 Arterial Blood Partial Pressure CO2 41.3 35.0-48.0 mmHg Arterial Blood Partial Pressure O2 97.6 83.0-108.0 mmHg Arterial Blood HCO3 26.7 21.0-28.0 mmol/L Arterial Blood Oxygen Saturation 96.9 94.0-98.0 % Arterial Blood Base Excess 2.1 -2.0-3.0 mmol/L Arterial Blood Oxyhemoglobin 96.3 94.0-98.0 % Arterial Blood Carboxyhemoglobin 0.3 L 0.5-1.5 % Arterial Blood Methemoglobin 0.3 0.0-1.5 % Kyle Test Modified Blood Gas Total Hemoglobin 9.40 L 13.5-17.5 g/dL Blood Gas Set Respiration Rate 14.0 Blood Gas Modality Vent - ac FiO2 % 30.0 Blood Gas Tidal Volume 450.0 Blood Gas PEEP or CPAP 5.0 Test 01/08/25 03:41 01/06/25 23:08 01/06/25 16:10 01/06/25 15:31 Range/Units White Blood Count 15.7 H 4.4-10.8 10^3/uL Red Blood Count 3.69 L 4.5-5.90 10^6/uL Hemoglobin 8.6 L 13.5-17.5 g/dL Hematocrit 27.8 L 41.0-53.0 % Mean Corpuscular Volume 75.3 L 80.0-100.0 fL Mean Corpuscular Hemoglobin 23.4 L 28.0-32.0 pg Mean Corpuscular Hemoglobin Concent 31.1 L 32.0-36.0 g/dL Red Cell Distribution Width 19.1 H 11.8-14.3 % Platelet Count 493 H 140-450 10^3/uL Mean Platelet Volume 6.6 L 6.9-10.8 fL Neutrophils (%) (Auto) 93.1 H 37.0-80.0 % Lymphocytes (%) (Auto) 1.6 L 10.0-50.0 % Monocytes (%) (Auto) 1.0 0.0-12.0 % Eosinophils (%) (Auto) 3.8 0.0-7.0 % Basophils (%) (Auto) 0.5 0.0-2.0 % Neutrophils # (Auto) 14.6 H 1.6-8.6 10 ^3/uL Lymphocytes # (Auto) 0.3 L 0.4-5.4 10 ^3/uL Monocytes # (Auto) 0.2 0-1.3 10 ^3/uL Eosinophils # (Auto) 0.6 0-0.8 10 ^3/uL Basophils # (Auto) 0.1 0-0.2 10 ^3/uL Nucleated Red Blood Cells 0.1 % Potassium Level 4.2 3.5-5.1 mmol/L Chloride Level 114 H 98-107 mmol/L Carbon Dioxide Level 30 20-31 mmol/L Anion Gap 13 5-15 Blood Urea Nitrogen 34 H 9-23 mg/dL Creatinine 2.91 H 0.700-1.30 mg/dL Glomerular Filtration Rate Calc 26 >90 mL/min BUN/Creatinine Ratio 11.7 10.0-20.0 Serum Glucose 129 H 74-106 mg/dL Calcium Level 6.3 L 8.7-10.4 mg/dL Phosphorus Level 3.1 2.4-5.1 mg/dL Magnesium Level 1.9 # 1.6-2.6 mg/dL Total Bilirubin 0.2 0.2-1.0 mg/dL Aspartate Amino Transferase (AST) 94 H <34 U/L Alanine Aminotransferase (ALT) 33 7-40 U/L Alkaline Phosphatase 269 H 46-116 U/L Total Protein 4.9 L 5.7-8.2 g/dL Albumin 2.6 L 3.2-4.8 g/dL Random Vancomycin Level 16.2 H 5-10 ug/mL Specimen Drawn By Urine Color Light-yellow Yellow Urine Clarity Clear Clear Urine pH 6.5 5.0-9.0 Urine Specific [place] 1.018 1.001-1.035 Urine Protein 3+ H Negative Urine Ketones 3+ H Negative Urine Blood 2+ H Negative /uL Urine Nitrite Negative Negative Urine Bilirubin Negative Negative Urine Urobilinogen Normal Negative mg/dL Urine Leukocyte Esterase Negative Negative /uL Urine RBC 44 0 - 3 /hpf Urine Microscopic WBC 5 H 0-3 /HPF Urine Squamous Epithelial Cells Few <5 /hpf Urine Bacteria Few H None Seen /hpf Urine Hyaline Casts Mod 0 - 2 /lpf Urine Glucose 4+ H Normal mg/dL Urine Opiates Screen Neg NEGATIVE Urine Fentanyl Screen Neg NEGATIVE Urine Barbiturates Screen Neg NEGATIVE Urine Phencyclidine Screen Neg NEGATIVE Urine Amphetamines Screen Neg NEGATIVE Urine Benzodiazepines Screen Neg NEGATIVE Urine Cocaine Screen Neg NEGATIVE Urine Cannabinoids Screen Pos NEGATIVE Blood Gas Critical Value Read Back Yes Blood Gas Notified Whom melecio Adam Blood Gas Notified Time [id number] Blood Gas Notified By Box Toe Buffer dayna Kaur 01/06/25 15:00 01/06/25 13:12 Range/Units Differential Total Cells Counted 100.0 100 Neutrophils % (Manual) 89 H 37.0-80.0 Band Neutrophils % (Manual) 4 Lymphocytes % (Manual) 3 L 10.0-50.0 Monocytes % (Manual) 4 0-12 Eosinophils % (Manual) 0 0-7 Basophils % (Manual) 0 0.0-2.0 Metamyelocytes % (manual) 0 Myelocytes % (Manual) 0 Promyelocytes % (Manual) 0 Blast Cells % (Manual) 0 Reactive Lymphocytes 0 Platelet Estimate Markedly increased Large Platelets Hypochromasia (manual) Marked Anisocytosis (manual) Slight Troponin I High Sensitivity 15 </=54 ng/L Serum Osmolality 420 H 278-298 mOsm/kg Lactic Acid Level 1.9 0.4-2.0 mmol/L Creatine Kinase 151 46-171 U/L Lipase 52 12-53 U/L Beta-Hydroxybutyric Acid > 4.500 H < 0.4 mmol/L Microbiology Date/Time Source Procedure Growth Status 01/07/25 01:00 Nose MRSA Screen - Final Complete 01/06/25 15:14 Sputum Endotracheal Wash Gram Stain - Final Resulted 01/06/25 15:14 Sputum Endotracheal Wash Respiratory Culture - Preliminary Resulted Problems(with codes): (1) Inadequate oral intake (2) Tachycardia (3) GI bleed (4) Appendicolith (5) Coffee ground emesis (6) Cellulitis (7) Cachexia (8) Hypoglycemia associated with diabetes (9) Malnourished (10) Intractable vomiting (11) Leukocytosis (12) Hydronephrosis, right (13) Non-ketotic hyperosmolar coma (14) Dehydration (15) Hyperglycemia (16) Hypochloremia (17) Failure to thrive (18) Gastroparesis (19) Erosive esophagitis (20) Hiatal hernia (21) Vomiting (22) Hypokalemia (23) Diabetes mellitus (24) Intractable abdominal pain (25) History of diabetic ketoacidosis (26) BPH (benign prostatic hyperplasia) (27) Acute abdominal pain (28) Diabetic keto-acidosis (29) Cannabinoid hyperemesis syndrome (30) Generalized weakness (31) Metabolic encephalopathy (32) Acute kidney injury (33) Sepsis, unspecified organism (34) Atrial fibrillation (35) Hyperphosphatemia (36) Hypernatremia (37) Acute renal insufficiency (38) Sepsis (39) UTI (urinary tract infection) (40) Altered mental status (41) DKA (diabetic ketoacidosis) (42) Symptomatic anemia Plan/Recommendation ASSESSMENT: Patient is a 44-year-old male seen in the ICU with a worsening bilateral foot wounds PLAN: - The patients chart was reviewed, clinical findings were discussed with the patient, the etiologies of the conditions were discussed in detail, and a treatment plan was agreed to at this time, with both oral and written instructions provided. - evaluated the right and left foot and there was some purulent drainage expressed from the left foot - recommend we get an MRI without contrast due to RADHA left foot rule out osteo versus abscess - pending MRI evaluation reasons determine if surgical intervention required at this point - keep dry with Betadine-soaked gauze All questions were answered and concerns addressed to the patient's satisfaction. The patient was given the phone number to the clinic and was told how to make contact with the clinic should any concerns or questions arise. Patient understands that if any questions or concerns arise prior to the next appointment, we should be contacted immediately. FOLLOW-UP: Continue to follow while inpatient Plan discussed with: Other Date of Service: Jan 08, 2025 Billing Provider: ADEBAYO RODRIGUEZ DPM Common Visit Codes: CONSULT ONLY Consultation Codes: [id number] CONSULT <80MIN ADEBAYO RODRIGUEZ DPM Jan 08, 2025 12:42
--- NOTE | 2025-01-08 15:41 | DVHPNRES ---
Progress Note Date Seen: Jan 08, 2025 Resident Creating Document: NIKO IBARRA Medical Necessity Reason Pt with a Central, PICC or Fol: Yes The following are medically ne: Central Line, Owens Catheter Medical Necessity Reason Patient seen and examined at the bedside today. Per the night team, patient had an allergic reaction. Review of patient's note showed that on his previous admission, it was mentioned that patient has allergies to penicillin. Therefore, Zosyn was discontinued. Patient was given diphenhydramine and methylprednisolone. Antibiotics switch to meropenem. This morning at bedside, nurse present mentioned that the patient has been having recurrent diarrhea dark. I sent a sample for stool culture, occult blood and WBC. For his labs this morning, chemistry showed improvement Na:157, K:3.8, creatinine slightly elevated 2.91 and GFR also down 2.61. WBC is markedly improved currently at 15.7, Hgb 8.6.Platelets also almost normalized. Subjective Review of Systems Sedate and mechanically intubated Objective vital signs Vital Sign Date Time Temp Pulse Resp B/P (MAP) Pulse Ox O2 Delivery O2 Flow Rate FiO2 01/08/25 15:00 80 14 118/74 (89) 100 01/08/25 14:00 30 01/08/25 14:00 Mechanical Ventilator+ 01/08/25 11:45 98.1 98.1 01/06/25 13:00 0 Total Intake and Output 01/07/25 01/07/25 01/08/25 15:00 23:00 07:00 Intake Total 1247.75 ml 2674.25 ml 1691.75 ml Output Total 55 ml 40 ml Balance 1247.75 ml 2619.25 ml 1651.75 ml medications Current Medications Medications Dose Ordered Sig/Zaria Route Start Time Stop Time Status Last Admin Dose Admin Norepinephrine Bitartrate 250 ml @ 3.75 mls/hr Q24H IV 01/06/25 14:00 01/08/25 10:08 3.75 MLS/HR Propofol 100 ml @ 1.5 mls/hr Q24H IV 01/06/25 14:40 01/08/25 12:18 15 MLS/HR Heparin Sodium (Porcine) 5,000 units Q12HR SC 01/06/25 22:00 01/08/25 09:27 5,000 UNITS Vancomycin HCl 0 ml @ 0 mls/hr UD IV 01/06/25 15:00 Acetaminophen/ Hydrocodone Bitart 1 tab Q4HP PRN PO 01/06/25 15:00 Ondansetron HCl 4 mg Q4HP PRN IV 01/06/25 15:00 Docusate Sodium 100 mg BIDPRN PRN PO 01/06/25 15:00 Acetaminophen 650 mg Q6HP PRN PO 01/06/25 15:00 Nitroglycerin 0.4 mg Q5MINP PRN SL 01/06/25 16:15 Morphine Sulfate 2 mg Q30M PRN IV 01/06/25 16:15 Midazolam HCl 50 ml @ 1 mls/hr Q24H IV 01/06/25 14:10 01/08/25 10:08 1 MLS/HR Famotidine 20 mg Q12HR IV 01/07/25 10:00 UNV Famotidine 20 mg DAILY IV 01/07/25 10:00 01/08/25 09:26 20 MG Diagnostic Test (Pha) 1 strip IQ4HR 01/07/25 08:00 Cancel Insulin Human Regular IQ4HR SC 01/07/25 08:00 01/08/25 11:14 3 UNITS Dextrose 50 ml UD PRN IV 01/07/25 05:45 Diagnostic Test (Pha) 1 strip IQ4HR 01/07/25 08:00 01/08/25 11:13 1 STRIP Purified Water 250 ml Q4HR GT 01/07/25 14:00 01/08/25 13:46 250 ML Dextrose 1,000 ml @ 100 mls/hr Q10H IV 01/07/25 12:00 01/08/25 08:11 100 MLS/HR Meropenem 50 ml @ 17 mls/hr Q12HR IV 01/08/25 04:30 01/08/25 09:26 17 MLS/HR Fentanyl Citrate 250 ml @ 2.5 mls/hr Q24H IV 01/08/25 10:45 01/08/25 11:17 2.5 MLS/HR Examination General Appearance: Sedate and intubated HEENT: Atraumatic Respiratory: fair air entering Cardiovascular: Tachycardia, No murmurs Abdominal: NO distention, no tenderness, bowel sounds present, no scars noted Extremities: dry, scaling, erythematous, warm, ulcer left platfoot, right foot Skin: dry and scaling Neuro: Sedated on drips Psych/Mental Status: unable to assess laboratory and microbiology Laboratory Tests 01/08/25 08:18 01/08/25 03:41 Test 01/08/25 03:41 Range/Units Serum Glucose 129 H 74-106 mg/dL Microbiology Date/Time Source Procedure Growth Status 01/08/25 10:37 Stool Stool Culture - Preliminary Resulted 01/08/25 10:37 Stool Shiga Toxin I & II - Final Resulted 01/07/25 13:18 Blood Blood Culture - Preliminary NO GROWTH AFTER 24 HOURS OF INCUBATION. Resulted 01/07/25 01:00 Nose MRSA Screen - Final Complete 01/06/25 15:14 Sputum Endotracheal Wash Gram Stain - Final Resulted 01/06/25 15:14 Sputum Endotracheal Wash Respiratory Culture - Preliminary Resulted Problem List/Assessment/Plan Problem List/Assessment/Plan Assessment and plan Neuro Metabolic encephalopathy in DKA Uremic encephalopathy - Treat the underlying condition likely sepsis. - see plan below Cardiovascular: AFIB on EKG Prolonged QTc interval Ventricular bigeminy - Amiodarone drip 1 time Respiratory: CXR: Bibasilar atelectasis or pneumonia. antibiotic: Meropenem and Vancomycin Gastrointestinal Gastroparesis( per father) Anemia, FOBT positive - pepcid - Consider GI consult when stable Endocrine/Metabolic: Diabetic Ketoacidosis Anion gap metabolic acidosis Hypernatremia-improving Hypermagnesemia Hyperphosphatemia Hypokalemia- corrected Severe protein calorie malnutrition, BMI 15.5 - Free water q4hrs - D5 W - CMP-7 Q4hrs - Bicarb stopped 01/07/2025 - NPO, now will restart feeding tomorrow Genitourinary RADHA likely due to ATN CKD 3 - Free water q4hrs- - CMP-7 Q4hrs - Nephrology consult Hematology Acute anemia FOBT positive Thrombocytosis likely secondary to sepsis Treat the underlying infection S/P 1 unit of PRBC Infections Disease Cellulitis bilateral Diabetic foot ulcer, left foot Severe Sepsis with septic shock - wound culture pending - Blood cultures pending - Wound consult - Senior Technical Project Manager: seen patient - Vancomycin and Meropenem - Betadine - Repeat CBC, CMP daily Eyes ( Per father) : low vision Retinal detachment Diabetic retinopathy - Recommends ophthalmology follow up outpatient IV access 01/06/2025 - Right Femoral - Right IJ - Right arm midline - Left arm peripheral Drips: Propofol,levophed Antibiotics: Zosyn and vancomycin Advance planning discussed with father. He is considering DNR for him as patient is unable to care for self Critical care time: 45 minutes Case and plan discussed with Dr. Lehman Plan discussed with: Other (Nurse) My Orders My Orders Orders - NIKO IBARRA Procedure Category Date Status Time Apply Barrier Cream SATHYA 01/07/25 In Process 12:08 Stool Bacterial RICHARD 01/08/25 In Process Culture 09:48 Hemoglobin A1c LAB 01/09/25 Verified 04:00 Fentanyl Drip PHA 01/08/25 In Process 2500mcg/250mlns 10:45 Dietary Evaluation Review Recommendations by RD: Increase Calorie Intake Comments: Nutrition Recommendation: 1) Vital AF 1.2Cal @ 25ml/hr along with Pro-stat 1 pk BID. start @ 20ml/hr, increase 10ml/hr Q4H until goal is reached. TF @ goal volume along with propofol, IV D5wNS0.45%, and Pro-stat provides 1684 kcal (100% energy needs), 75gm protein (100% protein needs), 487ml free water. 2) TPN to meet 75% estimated needs if remains NPO 3) Bryce 1 pk BID for DFU Expected Outcomes/Goals: DFU to improve To maintain/gain weight To meet at least 75% estimated needs Fu 2-3 days Interpretation of weight loss: up to 5% in 1 month Muscle Mass (Severe): Mod to Severe Depletion Protein Calorie Malnutrition: Non-Severe Is there a minimum of two crit: Yes Date of Service: Jan 08, 2025 Billing Provider: PAM LEHMAN MD Common Visit Codes: NOT BILLABLE NIKO IBARRA Jan 08, 2025 15:41 PAM LEHMAN MD Jan 14, 2025 13:48
[2025-01-08] MEDS ORDERED: CLINIMIX PER PHARMACY 0 ML IV SCH (15:45)
[2025-01-08] MEDS ORDERED: DEXTROSE (50%) 50ML SYRG IV SCH (17:00)
[2025-01-08] MEDS: ACCU-CHEK COMFORT CURVE STRIP VI SCH (17:27)
[2025-01-08] MEDS: InsuLIN REG 1unit/0.01ml Soln (100units/ml) SC SCH (17:30)
[2025-01-08] MEDS ORDERED: CALCIUM GLUC 1,000mg/50ml-NS 50 ML IV SCH (17:30)
--- NOTE | 2025-01-08 17:35 | DVHPN2 ---
Progress Note Date Seen: Jan 08, 2025 Medical Necessity Reason Pt with a Central, PICC or Fol: Yes The following are medically ne: Central Line, Owens Catheter Subjective Patient reports: Other (Patient remains intubated) Review of Systems: Deferred Objective vital signs Vital Sign Date Time Temp Pulse Resp B/P (MAP) Pulse Ox O2 Delivery O2 Flow Rate FiO2 01/08/25 17:30 79 16 108/68 (81) 99 01/08/25 16:04 30 01/08/25 16:00 Mechanical Ventilator+ 01/08/25 15:32 97.9 97.9 01/06/25 13:00 0 Total Intake and Output 01/07/25 01/07/25 01/08/25 15:00 23:00 07:00 Intake Total 1247.75 ml 2674.25 ml 1691.75 ml Output Total 55 ml 40 ml Balance 1247.75 ml 2619.25 ml 1651.75 ml medications Current Medications Medications Dose Ordered Sig/Zaria Route Start Time Stop Time Status Last Admin Dose Admin Norepinephrine Bitartrate 250 ml @ 3.75 mls/hr Q24H IV 01/06/25 14:00 01/08/25 10:08 3.75 MLS/HR Propofol 100 ml @ 1.5 mls/hr Q24H IV 01/06/25 14:40 01/08/25 16:49 15 MLS/HR Heparin Sodium (Porcine) 5,000 units Q12HR SC 01/06/25 22:00 01/08/25 09:27 5,000 UNITS Vancomycin HCl 0 ml @ 0 mls/hr UD IV 01/06/25 15:00 Acetaminophen/ Hydrocodone Bitart 1 tab Q4HP PRN PO 01/06/25 15:00 Ondansetron HCl 4 mg Q4HP PRN IV 01/06/25 15:00 Docusate Sodium 100 mg BIDPRN PRN PO 01/06/25 15:00 Acetaminophen 650 mg Q6HP PRN PO 01/06/25 15:00 Nitroglycerin 0.4 mg Q5MINP PRN SL 01/06/25 16:15 Morphine Sulfate 2 mg Q30M PRN IV 01/06/25 16:15 Midazolam HCl 50 ml @ 1 mls/hr Q24H IV 01/06/25 14:10 01/08/25 10:08 1 MLS/HR Famotidine 20 mg Q12HR IV 01/07/25 10:00 UNV Famotidine 20 mg DAILY IV 01/07/25 10:00 01/08/25 09:26 20 MG Diagnostic Test (Pha) 1 strip IQ4HR 01/07/25 08:00 Cancel Purified Water 250 ml Q4HR GT 01/07/25 14:00 01/08/25 17:28 250 ML Dextrose 1,000 ml @ 100 mls/hr Q10H IV 01/07/25 12:00 01/08/25 17:28 100 MLS/HR Meropenem 50 ml @ 17 mls/hr Q12HR IV 01/08/25 04:30 01/08/25 09:26 17 MLS/HR Fentanyl Citrate 250 ml @ 2.5 mls/hr Q24H IV 01/08/25 10:45 01/08/25 11:17 2.5 MLS/HR Amino Acids 0 ml @ 0 mls/hr PER PHARMACY IV 01/08/25 15:45 Diagnostic Test (Pha) 1 strip Q6HR 01/08/25 18:00 01/08/25 17:27 1 STRIP Insulin Human Regular FOLLOW SLIDING SCALE Q6HR SC 01/08/25 18:00 01/08/25 17:30 12 UNITS Dextrose 50 ml UD IV 01/08/25 17:00 Calcium Gluconate/ Sodium Chloride 50 ml @ 100 mls/hr Q30M IV 01/08/25 17:30 01/08/25 18:29 Cancel Amino Acids/ Electrolytes/ Dextrose 1,000 ml @ 41 mls/hr DAILY@2200 IV 01/08/25 22:00 Examination: GENERAL:Abnormal, MSK:Abnormal, SKIN:Abnormal laboratory and microbiology Laboratory Tests 01/08/25 08:18 01/08/25 03:41 Test 01/08/25 03:41 Range/Units Serum Glucose 129 H 74-106 mg/dL Microbiology Date/Time Source Procedure Growth Status 01/08/25 10:37 Stool Stool Culture - Preliminary Resulted 01/08/25 10:37 Stool Shiga Toxin I & II - Final Resulted 01/07/25 13:18 Blood Blood Culture - Preliminary NO GROWTH AFTER 24 HOURS OF INCUBATION. Resulted 01/07/25 01:00 Nose MRSA Screen - Final Complete 01/06/25 15:14 Sputum Endotracheal Wash Gram Stain - Final Resulted 01/06/25 15:14 Sputum Endotracheal Wash Respiratory Culture - Preliminary Resulted Problem List/Assessment/Plan Problem List/Assessment/Plan Acute kidney injury hemodynamic mediated Diabetic ketoacidosis Severe hypernatremia Ventilator-dependent hypoxic respiratory failure Recommendations Agree with D5W IV Insulin for sugar correction monitor renal function and sodium Improving sodium and renal function Plan discussed with: Other Dietary Evaluation Review Recommendations by RD: Increase Calorie Intake Comments: Nutrition Recommendation: 1) Vital AF 1.2Cal @ 25ml/hr along with Pro-stat 1 pk BID. start @ 20ml/hr, increase 10ml/hr Q4H until goal is reached. TF @ goal volume along with propofol, IV D5wNS0.45%, and Pro-stat provides 1684 kcal (100% energy needs), 75gm protein (100% protein needs), 487ml free water. 2) TPN to meet 75% estimated needs if remains NPO 3) Bryce 1 pk BID for DFU Expected Outcomes/Goals: DFU to improve To maintain/gain weight To meet at least 75% estimated needs Fu 2-3 days Interpretation of weight loss: up to 5% in 1 month Muscle Mass (Severe): Mod to Severe Depletion Protein Calorie Malnutrition: Non-Severe Is there a minimum of two crit: Yes Critical Care Time (mins): 35 VIDHYA NEVES MD Jan 08, 2025 17:35
[2025-01-08] MEDS: SOD CHL 0.45% 1,000 ML IV SCH (20:24)
[2025-01-08] MEDS: AMINO ACID INFUSION IN D10W 1,000 ML IV SCH (21:33)
--- NOTE | 2025-01-08 23:32 | DVH ---
Bilateral lower extremity venous duplex Clinical History: dvt Comparison: None Technique: Duplex Doppler evaluation of the deep venous systems of both lower extremities from the common femora l veins to the popliteal veins including color Doppler and spectral/pulsed waveform analysis was perf ormed. Findings: RIGHT SIDE: The common femoral vein demonstrates appropriate compressibility and waveform variability. There is compressibility/patency of the great saphenous vein at the proximal thigh. The femoral vein demonstrates appropriate compressibility and waveform variability. The deep femoral vein demonstrates appropriate compressibility and waveform variability. The popliteal vein demonstrates appropriate compressibility and waveform variability. There is normal compressibility at the tibioperoneal trunk. LEFT SIDE: The common femoral vein demonstrates appropriate compressibility and waveform variability. There is compressibility/patency of the great saphenous vein at the proximal thigh. The femoral vein demonstrates appropriate compressibility and waveform variability. The deep femoral vein demonstrates appropriate compressibility and waveform variability. The popliteal vein demonstrates appropriate compressibility and waveform variability. There is normal compressibility at the tibioperoneal trunk. Impression: 1. No right or left femoropopliteal venous thrombosis.
[2025-01-09] VITALS (104 sets, daily range): BP systolic 85–167; BP diastolic 49–99; PULSE 77–96; RESP 13–21; TEMP 95.5–99.1; O2SAT 96–100
[2025-01-09 03:55] LABS: Hemoglobin 8.2 g/dL (13.5-17.5); Mean Corpuscular Volume 75.0 fL (80.0-100.0); Nucleated Red Blood Cells % 0.1 %
[2025-01-09 03:58] LABS: Hematocrit 26.4 % (41.0-53.0); Mean Corpuscular Hemoglobin 23.3 pg (28.0-32.0)
[2025-01-09 04:12] LABS: Anion Gap 13 (5-15); BUN/Creatinine Ratio 14.3 (10.0-20.0); Carbon Dioxide 25 mmol/L (20-31); Chloride 102 mmol/L (98-107); Magnesium 1.8 mg/dL (1.6-2.6); Potassium 3.7 mmol/L (3.5-5.1); Sodium 140 mmol/L (136-145)
[2025-01-09 04:16] LABS: Bilirubin, Total < 0.2 mg/dL (0.2-1.0)
[2025-01-09 04:24] LABS: Alanine Aminotransferase 52 U/L (7-40); Albumin 2.2 g/dL (3.2-4.8); Alkaline Phosphatase 269 U/L (46-116); Blood Urea Nitrogen 41 mg/dL (9-23); Calcium 5.6 mg/dL (8.7-10.4); Glucose 284 mg/dL (74-106); Total Protein 4.6 g/dL (5.7-8.2)
[2025-01-09 04:36] LABS: Triglycerides 222 mg/dL (< 150)
--- NOTE | 2025-01-09 05:51 | DVH ---
INDICATION: Renal artery stenosis TECHNIQUE: Multiple real-time sonographic images of the kidneys and bladder were obtained. Duplex Doppler evaluation including color Doppler and spectral/pulsed waveform analysis of the bilate ral renal arteries was performed. COMPARISON: None FINDINGS: The right kidney measures 13.4 cm in length. The right renal echogenicity, contour and cortical thick ness are within normal limits. No hydronephrosis or large masses/calculi are seen. The left kidney measures 11.3 cm in length. The left renal echogenicity, contour, and cortical thickn ess are within normal limits. No hydronephrosis or large masses/calculi are seen. Aorta peak systolic velocity, 112 cm/s Right renal artery peak systolic velocity, 23 cm/s (< 180 cm/s = normal). Left renal artery peak systolic velocity 53 cm/s (< 180 cm/s = normal). Right RAR : 0.2 (< 3.5, normal) Left RAR 0.5 (< 3.5, normal) Right RI: 0.6 (< 0.75, normal) Left RI: 0.5 (< 0.75, normal) IMPRESSION: No findings to suggest renal artery stenosis. *Elana Castano Techniques in Noninvasive Vascular Diagnosis 2002
--- NOTE | 2025-01-09 05:52 | DVH ---
Bilateral Lower Extremity Arterial Duplex Clinical History: pad Comparison: US BILAT LOW EXT ART DUPLEX on DOS: 12/03/24 Technique: Duplex Doppler evaluation including color Doppler and spectral/pulsed waveform analysis of the lower extremity arteries was performed. Findings: RIGHT: Peak systolic velocities are less than 150 cm/sec. The waveforms are triphasic with diastolic flow. LEFT: Peak systolic velocities are less than 150 cm/sec. The waveforms are triphasic with diastolic flow. IMPRESSION: No hemodynamically significant stenosis based on peak systolic velocity criteria. Right common femoral artery is not visualized secondary to overlying bandages. REFERENCE VALUES, [facility] ([facility]) vascular Imaging Lab Criteria: Peak systolic velocity rang es (in cm/sec) are as follows: <150 cm/s - <20 % stenosis 150-200 cm/s - 20-49% stenosis 200-300 cm/s - 50-75% stenosis >300 cm/s -> 75% stenosis
[2025-01-09] MEDS: CALCIUM GLUC 1,000mg/50ml-NS 50 ML IV ONE ×2 (05:54→11:20)
--- NOTE | 2025-01-09 06:09 | DVH ---
EXAM: XR Chest, 1 View CLINICAL INDICATION: Pain TECHNIQUE: Frontal view of the chest. COMPARISON: XR Chest dated 01/08/2025 FINDINGS: LUNGS AND PLEURAL SPACES: Pulmonary congestion and edema. Pneumonia cannot be excluded. Bilateral p leural effusions. No pneumothorax. HEART: Unremarkable. No cardiomegaly. MEDIASTINUM: Unremarkable. Normal mediastinal contour. BONES/JOINTS: Unremarkable. No acute fracture. TUBES, LINES AND DEVICES: The endotracheal tube (ETT) is in satisfactory position. Enteric tube tip cannot be seen but is below the diaphragm. IMPRESSION: 1. Pulmonary congestion and edema. Pneumonia cannot be excluded. 2. Bilateral pleural effusions. 3. No significant change from the prior exam.
--- NOTE | 2025-01-09 07:23 | ECG ---
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
[2025-01-09 08:01] LABS: Base Excess -3.6 mmol/L (-2.0-3.0)
--- NOTE | 2025-01-09 10:17 | DVHPN2 ---
Progress Note Date Seen: Jan 09, 2025 Medical Necessity Reason Pt with a Central, PICC or Fol: Yes The following are medically ne: Central Line, Owens Catheter Subjective Patient reports: Other (intubated) Review of Systems: Deferred Objective vital signs Vital Sign Date Time Temp Pulse Resp B/P (MAP) Pulse Ox O2 Delivery O2 Flow Rate FiO2 01/09/25 10:05 84 17 113/65 (81) 99 30 01/09/25 08:00 Mechanical Ventilator+ 01/09/25 06:45 97.9 208.2 Total Intake and Output 01/08/25 01/08/25 01/09/25 14:59 22:59 06:59 Intake Total 1021.00 ml 1686.00 ml 1935.50 ml Output Total 75 ml 150 ml Balance 1021.00 ml 1611.00 ml 1785.50 ml medications Current Medications Medications Dose Ordered Sig/Zaria Route Start Time Stop Time Status Last Admin Dose Admin Norepinephrine Bitartrate 250 ml @ 3.75 mls/hr Q24H IV 01/06/25 14:00 01/08/25 10:08 3.75 MLS/HR Propofol 100 ml @ 1.5 mls/hr Q24H IV 01/06/25 14:40 01/09/25 04:11 15 MLS/HR Heparin Sodium (Porcine) 5,000 units Q12HR SC 01/06/25 22:00 01/08/25 21:31 5,000 UNITS Vancomycin HCl 0 ml @ 0 mls/hr UD IV 01/06/25 15:00 Acetaminophen/ Hydrocodone Bitart 1 tab Q4HP PRN PO 01/06/25 15:00 Ondansetron HCl 4 mg Q4HP PRN IV 01/06/25 15:00 Docusate Sodium 100 mg BIDPRN PRN PO 01/06/25 15:00 Acetaminophen 650 mg Q6HP PRN PO 01/06/25 15:00 Nitroglycerin 0.4 mg Q5MINP PRN SL 01/06/25 16:15 Morphine Sulfate 2 mg Q30M PRN IV 01/06/25 16:15 Midazolam HCl 50 ml @ 1 mls/hr Q24H IV 01/06/25 14:10 01/09/25 04:10 1 MLS/HR Famotidine 20 mg Q12HR IV 01/07/25 10:00 UNV Famotidine 20 mg DAILY IV 01/07/25 10:00 01/08/25 09:26 20 MG Diagnostic Test (Pha) 1 strip IQ4HR 01/07/25 08:00 Cancel Purified Water 250 ml Q4HR GT 01/07/25 14:00 01/09/25 05:13 250 ML Meropenem 50 ml @ 17 mls/hr Q12HR IV 01/08/25 04:30 01/08/25 21:25 17 MLS/HR Fentanyl Citrate 250 ml @ 2.5 mls/hr Q24H IV 01/08/25 10:45 01/08/25 11:17 2.5 MLS/HR Amino Acids 0 ml @ 0 mls/hr PER PHARMACY IV 01/08/25 15:45 Diagnostic Test (Pha) 1 strip Q6HR 01/08/25 18:00 01/09/25 05:16 1 STRIP Insulin Human Regular FOLLOW SLIDING SCALE Q6HR SC 01/08/25 18:00 01/09/25 05:17 20 UNITS Dextrose 50 ml UD IV 01/08/25 17:00 Calcium Gluconate/ Sodium Chloride 50 ml @ 100 mls/hr Q30M IV 01/08/25 17:30 01/08/25 18:29 Cancel Amino Acids/ Electrolytes/ Dextrose 1,000 ml @ 41 mls/hr DAILY@2200 IV 01/08/25 22:00 01/08/25 21:33 41 MLS/HR Sodium Chloride 1,000 ml @ 100 mls/hr Q10H IV 01/08/25 19:00 01/09/25 05:59 100 MLS/HR Examination: GENERAL:Abnormal, MSK:Abnormal, SKIN:Abnormal, NEURO:Abnormal laboratory and microbiology Laboratory Tests 01/09/25 03:00 Test 01/09/25 03:00 Range/Units Serum Glucose 284 #H 74-106 mg/dL Microbiology Date/Time Source Procedure Growth Status 01/08/25 10:37 Stool Stool Culture - Preliminary Resulted 01/08/25 10:37 Stool Shiga Toxin I & II - Final Resulted 01/07/25 13:18 Blood Blood Culture - Preliminary NO GROWTH AFTER 24 HOURS OF INCUBATION. Resulted 01/07/25 01:00 Nose MRSA Screen - Final Complete 01/06/25 15:14 Sputum Endotracheal Wash Gram Stain - Final Complete 01/06/25 15:14 Sputum Endotracheal Wash Respiratory Culture - Final Complete Problem List/Assessment/Plan Problem List/Assessment/Plan Acute kidney injury hemodynamic mediated Diabetic ketoacidosis Severe hypernatremia Ventilator-dependent hypoxic respiratory failure Recommendations on half NS need strict i and o charting lasix iv 1 dose monitor renal function and sodium Improving sodium and renal function Plan discussed with: Other My Orders My Orders Orders - VIDHYA NEVES MD Procedure Category Date Status Time Strict I & O SATHYA 01/09/25 In Process 10:15 Dietary Evaluation Review Recommendations by RD: Increase Calorie Intake Comments: Nutrition Recommendation: 1) Vital AF 1.2Cal @ 25ml/hr along with Pro-stat 1 pk BID. start @ 20ml/hr, increase 10ml/hr Q4H until goal is reached. TF @ goal volume along with propofol, IV D5wNS0.45%, and Pro-stat provides 1684 kcal (100% energy needs), 75gm protein (100% protein needs), 487ml free water. 2) TPN to meet 75% estimated needs if remains NPO 3) Bryce 1 pk BID for DFU Expected Outcomes/Goals: DFU to improve To maintain/gain weight To meet at least 75% estimated needs Fu 2-3 days Interpretation of weight loss: up to 5% in 1 month Muscle Mass (Severe): Mod to Severe Depletion Protein Calorie Malnutrition: Non-Severe Is there a minimum of two crit: Yes VIDHYA NEVES MD Jan 09, 2025 10:17
[2025-01-09] MEDS: FUROSEMIDE 40 MG/4 ML VIAL IV ONE (10:52)
[2025-01-09] MEDS: ALBUMIN 25% 100 ML IV SCH (12:26)
[2025-01-09] MEDS: BUMETANIDE INJECTION 25 MG in GIVE UN-DILUTED 0 ML IV SCH (13:22)
[2025-01-09] MEDS: VANCOMYCIN 500mg/100mL 100 ML IV ONE (14:13)
--- NOTE | 2025-01-09 18:18 | DVHPNRES ---
Progress Note Date Seen: Jan 09, 2025 Resident Creating Document: NIKO IBARRA RESIDENT Medical Necessity Reason Pt with a Central, PICC or Fol: Yes The following are medically ne: Central Line, Owens Catheter Medical Necessity Reason Patient seen and examined with father at the bedside. He is still intubated and sedated. labs overnight revealed hypocalemia. An EKG showed prolong QTc, calcium gluconate given. Urine production is very minimal at 225 in 24hours. Nephrology saw patient and recommend furosemide. Vascular studies done did not reveal any significant vascular diseas, but he has chronic wound wound. Will get vascular inputs. Subjective Review of Systems INTUBATED Objective vital signs Vital Sign Date Time Temp Pulse Resp B/P (MAP) Pulse Ox O2 Delivery O2 Flow Rate FiO2 01/09/25 18:00 97.7 86 15 96/50 (65) 98 207.9 01/09/25 18:00 Mechanical Ventilator+ 30 30 Total Intake and Output 01/08/25 01/08/25 01/09/25 15:00 23:00 07:00 Intake Total 1026.00 ml 1727.00 ml 1932.50 ml Output Total 75 ml 150 ml Balance 1026.00 ml 1652.00 ml 1782.50 ml medications Current Medications Medications Dose Ordered Sig/Zaria Route Start Time Stop Time Status Last Admin Dose Admin Norepinephrine Bitartrate 250 ml @ 3.75 mls/hr Q24H IV 01/06/25 14:00 01/09/25 10:53 3.75 MLS/HR Propofol 100 ml @ 1.5 mls/hr Q24H IV 01/06/25 14:40 01/09/25 17:42 15 MLS/HR Heparin Sodium (Porcine) 5,000 units Q12HR SC 01/06/25 22:00 01/09/25 11:00 5,000 UNITS Vancomycin HCl 0 ml @ 0 mls/hr UD IV 01/06/25 15:00 Acetaminophen/ Hydrocodone Bitart 1 tab Q4HP PRN PO 01/06/25 15:00 Ondansetron HCl 4 mg Q4HP PRN IV 01/06/25 15:00 Docusate Sodium 100 mg BIDPRN PRN PO 01/06/25 15:00 Acetaminophen 650 mg Q6HP PRN PO 01/06/25 15:00 Nitroglycerin 0.4 mg Q5MINP PRN SL 01/06/25 16:15 Morphine Sulfate 2 mg Q30M PRN IV 01/06/25 16:15 Midazolam HCl 50 ml @ 1 mls/hr Q24H IV 01/06/25 14:10 01/09/25 04:10 1 MLS/HR Famotidine 20 mg Q12HR IV 01/07/25 10:00 UNV Famotidine 20 mg DAILY IV 01/07/25 10:00 01/09/25 10:54 20 MG Diagnostic Test (Pha) 1 strip IQ4HR 01/07/25 08:00 Cancel Meropenem 50 ml @ 17 mls/hr Q12HR IV 01/08/25 04:30 01/09/25 10:52 17 MLS/HR Fentanyl Citrate 250 ml @ 2.5 mls/hr Q24H IV 01/08/25 10:45 01/09/25 11:02 2.5 MLS/HR Amino Acids 0 ml @ 0 mls/hr PER PHARMACY IV 01/08/25 15:45 Diagnostic Test (Pha) 1 strip Q6HR 01/08/25 18:00 01/09/25 17:42 1 STRIP Insulin Human Regular FOLLOW SLIDING SCALE Q6HR SC 01/08/25 18:00 01/09/25 17:47 8 UNITS Dextrose 50 ml UD IV 01/08/25 17:00 Calcium Gluconate/ Sodium Chloride 50 ml @ 100 mls/hr Q30M IV 01/08/25 17:30 01/08/25 18:29 Cancel Amino Acids/ Electrolytes/ Dextrose 1,000 ml @ 41 mls/hr DAILY@2200 IV 01/08/25 22:00 01/08/25 21:33 41 MLS/HR Bumetanide 25 mg/ Miscellaneous 100 ml @ 4 mls/hr Q24H IV 01/09/25 12:15 01/09/25 13:22 4 MLS/HR Albumin Human 100 ml @ 100 mls/hr Q8H IV 01/09/25 12:15 01/10/25 05:14 01/09/25 12:26 100 MLS/HR Examination General Appearance: Sedate and intubated HEENT: Atraumatic Respiratory: fair air entering Cardiovascular: Tachycardia, No murmurs Abdominal: NO distention, no tenderness, bowel sounds present, no scars noted Extremities: dry, scaling, erythematous, warm, ulcer left platfoot, right foot Skin: dry and scaling Neuro: Sedated on drips Psych/Mental Status: unable to assess laboratory and microbiology Laboratory Tests 01/09/25 03:00 Test 01/09/25 03:00 Range/Units Serum Glucose 284 #H 74-106 mg/dL Microbiology Date/Time Source Procedure Growth Status 01/08/25 10:37 Stool Stool Culture - Preliminary Resulted 01/08/25 10:37 Stool Shiga Toxin I & II - Final Resulted 01/07/25 13:18 Blood Blood Culture - Preliminary NO GROWTH AFTER 48 HOURS OF INCUBATION. Resulted 01/07/25 01:00 Nose MRSA Screen - Final Complete 01/06/25 15:14 Sputum Endotracheal Wash Gram Stain - Final Complete 01/06/25 15:14 Sputum Endotracheal Wash Respiratory Culture - Final Complete Problem List/Assessment/Plan Problem List/Assessment/Plan Assessment and plan Neuro Metabolic encephalopathy in DKA Uremic encephalopathy - Treat the underlying condition likely sepsis. - see plan below Cardiovascular: AFIB on EKG Prolonged QTc interval Ventricular bigeminy - Amiodarone drip 1 time Respiratory: CXR: Bibasilar atelectasis or pneumonia. antibiotic: Meropenem and Vancomycin Gastrointestinal Gastroparesis( per father) Anemia, FOBT positive - pepcid - Consider GI consult when stable Endocrine/Metabolic: Diabetic Ketoacidosis Anion gap metabolic acidosis Hypernatremia-improving Hypermagnesemia Hyperphosphatemia Hypokalemia- corrected Severe protein calorie malnutrition, BMI 15.5 - Free water q4hrs - D5 W - CMP-7 Q4hrs - Bicarb stopped 01/07/2025 - NPO, now will restart feeding tomorrow Genitourinary RADHA likely due to ATN CKD 3 - Free water q4hrs- - CMP-7 Q4hrs - Nephrology consult Hematology Acute anemia FOBT positive Thrombocytosis likely secondary to sepsis Treat the underlying infection S/P 1 unit of PRBC Infections Disease Cellulitis bilateral Diabetic foot ulcer, left foot Severe Sepsis with septic shock - wound culture pending - Blood cultures pending - Wound consult - Senior Corporate Recruiter: seen patient - Vancomycin and Meropenem - Betadine - Repeat CBC, CMP daily Eyes ( Per father) : low vision Retinal detachment Diabetic retinopathy - Recommends ophthalmology follow up outpatient IV access 01/06/2025 - Right Femoral - Right IJ - Right arm midline - Left arm peripheral Drips: Propofol,levophed Antibiotics: Zosyn and vancomycin plan: vascular consult for chronic lower extremity wounds monitor for fasciculations Nephrology:diuresis Advance planning discussed with father. He is considering DNR for him as patient is unable to care for self Critical care time: 45 minutes Case and plan discussed with Dr. Lehman Plan discussed with: Other (Nurse) My Orders My Orders Orders - NIKO IBARRA Procedure Category Date Status Time Renal Artery Comp US 01/08/25 Resulted 18:44 Comprehensive LAB 01/10/25 Verified Metabolic Panel 04:00 Magnesium LAB 01/10/25 Verified 04:00 Phosphorus LAB 01/10/25 Verified 04:00 Clinimix Per Pharmacy SATHYA 01/09/25 In Process 22:00 Dietary Evaluation Review Recommendations by RD: Increase Calorie Intake Comments: Nutrition Recommendation: 1) Vital AF 1.2Cal @ 25ml/hr along with Pro-stat 1 pk BID. start @ 20ml/hr, increase 10ml/hr Q4H until goal is reached. TF @ goal volume along with propofol, IV D5wNS0.45%, and Pro-stat provides 1684 kcal (100% energy needs), 75gm protein (100% protein needs), 487ml free water. 2) TPN to meet 75% estimated needs if remains NPO 3) Bryce 1 pk BID for DFU Expected Outcomes/Goals: DFU to improve To maintain/gain weight To meet at least 75% estimated needs Fu 2-3 days Interpretation of weight loss: up to 5% in 1 month Muscle Mass (Severe): Mod to Severe Depletion Protein Calorie Malnutrition: Non-Severe Is there a minimum of two crit: Yes Date of Service: Jan 09, 2025 Billing Provider: PAM LEHMAN MD Common Visit Codes: NOT BILLABLE NIKO IBARRA Jan 09, 2025 18:18 PAM LEHMAN MD Jan 14, 2025 13:52
--- NOTE | 2025-01-09 19:09 | DVH ---
EXAMINATION: MRI MRI L FOOT WO CONTRAST TECHNIQUE: Multisequence multiplanar MRI images were obtained of the right and left foot HISTORY: rule out osteomyelitis COMPARISON: None Findings/ IMPRESSION: Mild diffuse subcutaneous soft-tissue edema; possibly cellulitis. No bone marrow edema is present to suggest fracture or acute osteomyelitis. Clinical correlation advised.
--- NOTE | 2025-01-09 19:09 | DVH ---
EXAMINATION: MRI MRI L FOOT WO CONTRAST TECHNIQUE: Multisequence multiplanar MRI images were obtained of the right and left foot HISTORY: rule out osteomyelitis COMPARISON: None Findings/ IMPRESSION: Mild diffuse subcutaneous soft-tissue edema; possibly cellulitis. No bone marrow edema is present to suggest fracture or acute osteomyelitis. Clinical correlation advised.
[2025-01-10] VITALS (111 sets, daily range): BP systolic 106–153; BP diastolic 60–85; PULSE 82–98; RESP 12–18; TEMP 95.4–98.6; O2SAT 98–100
[2025-01-10] MEDS: methylPREDNISolone SOD SUCC 40 MG/ML VL IV ONE (01:57)
[2025-01-10] MEDS: diphenhdrAMINE HCL 50 MG/1 ML VL IV ONE (01:58)
[2025-01-10 03:53] LABS: Hemoglobin 7.6 g/dL (13.5-17.5); Nucleated Red Blood Cells % 0.0 %
[2025-01-10 03:55] LABS: Alanine Aminotransferase 34 U/L (7-40); Anion Gap 12 (5-15); BUN/Creatinine Ratio 16.3 (10.0-20.0); Carbon Dioxide 25 mmol/L (20-31); Chloride 103 mmol/L (98-107); Hematocrit 24.0 % (41.0-53.0); Magnesium 1.7 mg/dL (1.6-2.6); Mean Corpuscular Hemoglobin 23.7 pg (28.0-32.0); Mean Corpuscular Volume 74.7 fL (80.0-100.0); Sodium 140 mmol/L (136-145)
[2025-01-10 03:56] LABS: Albumin 2.6 g/dL (3.2-4.8); Alkaline Phosphatase 204 U/L (46-116); Blood Urea Nitrogen 45 mg/dL (9-23); Calcium 6.2 mg/dL (8.7-10.4); Glucose 157 mg/dL (74-106); Potassium 2.9 mmol/L (3.5-5.1); Total Protein 4.7 g/dL (5.7-8.2)
[2025-01-10 03:57] LABS: Bilirubin, Total < 0.2 mg/dL (0.2-1.0)
[2025-01-10] MEDS: BUMETANIDE INJECTION 25 MG in GIVE UN-DILUTED 0 ML IV SCH (04:15)
[2025-01-10] MEDS: CALCIUM GLUC 1,000mg/50ml-NS 50 ML IV SCH ×2 (04:35→11:57)
[2025-01-10] MEDS: POTASSIUM CHL 20MEQ/100ML 100 ML IV ONE (04:35)
[2025-01-10] MEDS: MAGNESIUM SULFATE 1GM/100ML 100 ML IV ONE (04:36)
--- NOTE | 2025-01-10 05:07 | DVH ---
EXAM: XR Chest, 1 View CLINICAL INDICATION: Pain TECHNIQUE: Frontal view of the chest. COMPARISON: No relevant prior studies available. FINDINGS: LUNGS AND PLEURAL SPACES: Bibasilar atelectasis or pneumonia. No pneumothorax. HEART: Cardiomegaly without overt failure. MEDIASTINUM: Unremarkable. Normal mediastinal contour. BONES/JOINTS: Unremarkable. No acute fracture. TUBES, LINES AND DEVICES: The endotracheal tube (ETT) is in satisfactory position. Enteric tube tip in the stomach. IMPRESSION: 1. Bibasilar atelectasis or pneumonia. 2. Cardiomegaly without overt failure.
[2025-01-10 06:30] LABS: Base Excess -7.0 mmol/L (-2.0-3.0)
--- NOTE | 2025-01-10 07:37 | ECG ---
[facility] Test Date: 2025-01-09 Test Time: 10:30:40 Pat Name: SUKHWINDER CHEEMA Department: ICU Room: [address] [place] [address] A Gender: M Fisher Trot Line: LE : 1980 Requested By: FLACO SYED Order Number: [id number] Reading MD: Anshu Trejo Measurements Intervals [place] Rate: 85 P: 73 IN: 128 QRS: 41 QRSD: 91 T: 75 QT: 507 QTc: 603 Interpretive Statements Sinus rhythm Low voltage, extremity leads Prolonged QT interval Electronically Signed On 01-10-2025 21:12:26 PDT by Anshu Trejo Please click the below link to view image of tracing.
[2025-01-10] MEDS ORDERED: POTASSIUM CHLORIDE 60 MEQ, LIDOCAINE 1% (LOCAL ANESTH.) 6 ML in SODIUM CHL 0.9% 500 ML IV ONE (07:45)
[2025-01-10] MEDS ORDERED: MAGNESIUM SULFATE 1GM/100ML 100 ML IV ONE (07:45)
[2025-01-10] MEDS: PANTOPRAZOLE 40 MG/10 ML VIAL INJ IV SCH (08:06)
[2025-01-10] MEDS: POTASSIUM CHL 20MEQ/100ML 100 ML IV SCH (08:54)
--- NOTE | 2025-01-10 10:51 | DVHPN2 ---
Progress Note Date Seen: Jan 10, 2025 Medical Necessity Reason Pt with a Central, PICC or Fol: Yes The following are medically ne: Central Line, Owens Catheter Subjective Review of Systems: RESPIRATORY:Abnormal Other Systems: Patient seen and examined by myself today in follow-up, patient remained intubated on ventilator Objective vital signs Vital Sign Date Time Temp Pulse Resp B/P (MAP) Pulse Ox O2 Delivery O2 Flow Rate FiO2 01/10/25 09:58 96 15 127/70 (89) 99 30 01/10/25 09:49 Mechanical Ventilator+ 01/10/25 08:30 98.6 209.5 Total Intake and Output 01/09/25 01/09/25 01/10/25 15:00 23:00 07:00 Intake Total 789.00 ml 691.75 ml 893 ml Output Total 450 ml 1200 ml Balance 789.00 ml 241.75 ml -307 ml medications Current Medications Medications Dose Ordered Sig/Zaria Route Start Time Stop Time Status Last Admin Dose Admin Norepinephrine Bitartrate 250 ml @ 3.75 mls/hr Q24H IV 01/06/25 14:00 01/09/25 10:53 3.75 MLS/HR Propofol 100 ml @ 1.5 mls/hr Q24H IV 01/06/25 14:40 01/10/25 04:55 15 MLS/HR Vancomycin HCl 0 ml @ 0 mls/hr UD IV 01/06/25 15:00 Acetaminophen/ Hydrocodone Bitart 1 tab Q4HP PRN PO 01/06/25 15:00 Ondansetron HCl 4 mg Q4HP PRN IV 01/06/25 15:00 Docusate Sodium 100 mg BIDPRN PRN PO 01/06/25 15:00 Acetaminophen 650 mg Q6HP PRN PO 01/06/25 15:00 Nitroglycerin 0.4 mg Q5MINP PRN SL 01/06/25 16:15 Morphine Sulfate 2 mg Q30M PRN IV 01/06/25 16:15 Midazolam HCl 50 ml @ 1 mls/hr Q24H IV 01/06/25 14:10 01/09/25 04:10 1 MLS/HR Famotidine 20 mg Q12HR IV 01/07/25 10:00 UNV Famotidine 20 mg DAILY IV 01/07/25 10:00 Hold 01/09/25 10:54 20 MG Diagnostic Test (Pha) 1 strip IQ4HR 01/07/25 08:00 Cancel Meropenem 50 ml @ 17 mls/hr Q12HR IV 01/08/25 04:30 01/10/25 08:36 17 MLS/HR Fentanyl Citrate 250 ml @ 2.5 mls/hr Q24H IV 01/08/25 10:45 01/09/25 11:02 2.5 MLS/HR Amino Acids 0 ml @ 0 mls/hr PER PHARMACY IV 01/08/25 15:45 Diagnostic Test (Pha) 1 strip Q6HR 01/08/25 18:00 01/10/25 05:46 1 STRIP Insulin Human Regular FOLLOW SLIDING SCALE Q6HR SC 01/08/25 18:00 01/10/25 05:53 8 UNITS Dextrose 50 ml UD IV 01/08/25 17:00 Calcium Gluconate/ Sodium Chloride 50 ml @ 100 mls/hr Q30M IV 01/08/25 17:30 01/08/25 18:29 Cancel Amino Acids/ Electrolytes/ Dextrose 1,000 ml @ 41 mls/hr DAILY@2200 IV 01/08/25 22:00 01/09/25 21:24 41 MLS/HR Bumetanide 25 mg/ Miscellaneous 100 ml @ 2 mls/hr Q24H IV 01/10/25 04:15 Pantoprazole Sodium 40 mg BID IV 01/10/25 10:00 01/10/25 08:06 40 MG Potassium Chloride 100 ml @ 50 mls/hr Q2H IV 01/10/25 08:15 01/10/25 12:14 01/10/25 10:41 50 MLS/HR Examination: LUNGS:Normal, CVS:Normal, MSK:Normal laboratory and microbiology Laboratory Tests 01/10/25 03:20 Test 01/10/25 03:20 Range/Units Serum Glucose 157 #H 74-106 mg/dL Microbiology Date/Time Source Procedure Growth Status 01/08/25 10:37 Stool Stool Culture - Final Complete 01/08/25 10:37 Stool Shiga Toxin I & II - Final Complete 01/07/25 13:18 Blood Blood Culture - Preliminary NO GROWTH AFTER 48 HOURS OF INCUBATION. Resulted 01/07/25 01:00 Nose MRSA Screen - Final Complete 01/06/25 15:14 Sputum Endotracheal Wash Gram Stain - Final Complete 01/06/25 15:14 Sputum Endotracheal Wash Respiratory Culture - Final Complete Problem List/Assessment/Plan Problem List/Assessment/Plan Acute kidney injury superimposed Chronic Kidney Disease secondary hemodynamic mediated Ventilator-dependent hypoxic respiratory failure Diabetic ketoacidosis Hyponatremia due to dehydration Hypocalcemia Hypomagnesemia Hypokalemia Anemia of chronic kidney disease Recommendations Kidney function is improving Increased urine output Hyponatremia resolved Strict I&O's Hold Bumex drip Calcium gluconate 3 g IV piggyback Magnesium sulfate 2 g IV piggyback KCL replacement Insulin sliding scale We will continue to follow up Plan discussed with: Other (Nurse) My Orders My Orders Orders - VIVIAN GRACIA MD Procedure Category Date Status Time Potassium Effervesent PHA 01/10/25 Logged Tab (Klor-Con/Ef) 10:45 Dietary Evaluation Review Recommendations by RD: Increase Calorie Intake Comments: Nutrition Recommendation: 1) Vital AF 1.2Cal @ 25ml/hr along with Pro-stat 1 pk BID. start @ 20ml/hr, increase 10ml/hr Q4H until goal is reached. TF @ goal volume along with propofol, IV D5wNS0.45%, and Pro-stat provides 1684 kcal (100% energy needs), 75gm protein (100% protein needs), 487ml free water. 2) TPN to meet 75% estimated needs if remains NPO 3) Bryce 1 pk BID for DFU Expected Outcomes/Goals: DFU to improve To maintain/gain weight To meet at least 75% estimated needs Fu 2-3 days Interpretation of weight loss: up to 5% in 1 month Muscle Mass (Severe): Mod to Severe Depletion Protein Calorie Malnutrition: Non-Severe Is there a minimum of two crit: Yes VIVIAN GRACIA MD Jan 10, 2025 10:51
[2025-01-10] MEDS: POTASSIUM EFFERVESENT TAB 25 MEQ GT ONE (11:56)
[2025-01-10] MEDS: MAGNESIUM SULFATE 1GM/100ML 100 ML IV SCH (11:57)
[2025-01-10 12:53] LABS: Urine Protein, UAD 1+ (Negative)
[2025-01-10 12:58] LABS: Protein, Urine 187.1 mg/dL (1-14)
--- NOTE | 2025-01-10 14:34 | DVHPNRES ---
Progress Note Date Seen: Jan 10, 2025 Resident Creating Document: NIKO IBARRA RESIDENT Medical Necessity Reason Pt with a Central, PICC or Fol: Yes The following are medically ne: Central Line, Owens Catheter Medical Necessity Reason patient seen and examined today. He is still intubated and his lips seems still swollen, Patient received anther rounds of solumedrol. wbc normal limits, chemistry sodium now back to normal potassium slightly reduced at 2.9 and magnesium also replaced today. Es patient is a fentanyl 5 mL/hour, propofol 50 mL/hour. He is also on meropenem and vancomycin. For diet patient is on Clinimix and we will hold diuretic at this time. GiveCalcium gluconate 3 g IV piggyback, Magnesium sulfate 2 g IV piggyback, KCL replacement,Insulin sliding scale Subjective Review of Systems Unable to assess at this time Objective vital signs Vital Sign Date Time Temp Pulse Resp B/P (MAP) Pulse Ox O2 Delivery O2 Flow Rate FiO2 01/10/25 13:42 85 15 128/76 (93) 99 30 01/10/25 13:33 Mechanical Ventilator+ 01/10/25 13:15 98.2 208.8 Total Intake and Output 01/09/25 01/09/25 01/10/25 15:00 23:00 07:00 Intake Total 789.00 ml 691.75 ml 893 ml Output Total 450 ml 1200 ml Balance 789.00 ml 241.75 ml -307 ml medications Current Medications Medications Dose Ordered Sig/Zaria Route Start Time Stop Time Status Last Admin Dose Admin Norepinephrine Bitartrate 250 ml @ 3.75 mls/hr Q24H IV 01/06/25 14:00 01/09/25 10:53 3.75 MLS/HR Propofol 100 ml @ 1.5 mls/hr Q24H IV 01/06/25 14:40 01/10/25 04:55 15 MLS/HR Acetaminophen/ Hydrocodone Bitart 1 tab Q4HP PRN PO 01/06/25 15:00 Ondansetron HCl 4 mg Q4HP PRN IV 01/06/25 15:00 Docusate Sodium 100 mg BIDPRN PRN PO 01/06/25 15:00 Acetaminophen 650 mg Q6HP PRN PO 01/06/25 15:00 Nitroglycerin 0.4 mg Q5MINP PRN SL 01/06/25 16:15 Morphine Sulfate 2 mg Q30M PRN IV 01/06/25 16:15 Midazolam HCl 50 ml @ 1 mls/hr Q24H IV 01/06/25 14:10 01/09/25 04:10 1 MLS/HR Famotidine 20 mg Q12HR IV 01/07/25 10:00 UNV Famotidine 20 mg DAILY IV 01/07/25 10:00 Hold 01/09/25 10:54 20 MG Diagnostic Test (Pha) 1 strip IQ4HR 01/07/25 08:00 Cancel Meropenem 50 ml @ 17 mls/hr Q12HR IV 01/08/25 04:30 01/10/25 08:36 17 MLS/HR Fentanyl Citrate 250 ml @ 2.5 mls/hr Q24H IV 01/08/25 10:45 01/09/25 11:02 2.5 MLS/HR Amino Acids 0 ml @ 0 mls/hr PER PHARMACY IV 01/08/25 15:45 Diagnostic Test (Pha) 1 strip Q6HR 01/08/25 18:00 01/10/25 11:57 1 STRIP Insulin Human Regular FOLLOW SLIDING SCALE Q6HR SC 01/08/25 18:00 01/10/25 12:03 8 UNITS Dextrose 50 ml UD IV 01/08/25 17:00 Calcium Gluconate/ Sodium Chloride 50 ml @ 100 mls/hr Q30M IV 01/08/25 17:30 01/08/25 18:29 Cancel Amino Acids/ Electrolytes/ Dextrose 1,000 ml @ 41 mls/hr DAILY@2200 IV 01/08/25 22:00 01/09/25 21:24 41 MLS/HR Pantoprazole Sodium 40 mg BID IV 01/10/25 10:00 01/10/25 08:06 40 MG Bumetanide 1 mg DAILY IV 01/11/25 10:00 Examination General Appearance: Sedate and intubated, lips swollen, HEENT: Atraumatic Respiratory: fair air entering Cardiovascular: Tachycardia, No murmurs Abdominal: NO distention, no tenderness, bowel sounds present, no scars noted Extremities: dry, scaling, erythematous, warm, ulcer left platfoot, right foot Skin: dry and scaling Neuro: Sedated on drips Psych/Mental Status: unable to assess laboratory and microbiology Laboratory Tests 01/10/25 03:20 Test 01/10/25 03:20 Range/Units Serum Glucose 157 #H 74-106 mg/dL Microbiology Date/Time Source Procedure Growth Status 01/08/25 10:37 Stool Stool Culture - Final Complete 01/08/25 10:37 Stool Shiga Toxin I & II - Final Complete 01/07/25 13:18 Blood Blood Culture - Preliminary NO GROWTH AFTER 72 HOURS OF INCUBATION. Resulted 01/07/25 01:00 Nose MRSA Screen - Final Complete 01/06/25 15:14 Sputum Endotracheal Wash Gram Stain - Final Complete 01/06/25 15:14 Sputum Endotracheal Wash Respiratory Culture - Final Complete Problem List/Assessment/Plan Problem List/Assessment/Plan Assessment and plan Neuro Metabolic encephalopathy in DKA Uremic encephalopathy - Treat the underlying condition likely sepsis. - see plan below Cardiovascular: AFIB on EKG Prolonged QTc interval Ventricular bigeminy - Amiodarone drip 1 time Respiratory: CXR: Bibasilar atelectasis or pneumonia. antibiotic: Meropenem and Vancomycin Gastrointestinal Gastroparesis( per father) Anemia, FOBT positive - pepcid - Consider GI consult when stable Endocrine/Metabolic: Diabetic Ketoacidosis Anion gap metabolic acidosis Hypernatremia-improving Hypermagnesemia Hyperphosphatemia Hypokalemia- corrected Severe protein calorie malnutrition, BMI 15.5 - Free water q4hrs - D5 W - CMP-7 Q4hrs - Bicarb stopped 01/07/2025 - NPO, now will restart feeding tomorrow Genitourinary RADHA likely due to ATN CKD 3 - Free water q4hrs- - CMP-7 Q4hrs - Nephrology consult Hematology Acute anemia FOBT positive Thrombocytosis likely secondary to sepsis Treat the underlying infection S/P 1 unit of PRBC Infections Disease Cellulitis bilateral Diabetic foot ulcer, left foot Severe Sepsis with septic shock - wound culture pending - Blood cultures pending - Wound consult - Dining Room Coordinator: seen patient - Vancomycin and Meropenem - Betadine - Repeat CBC, CMP daily Eyes ( Per father) : low vision Retinal detachment Diabetic retinopathy - Recommends ophthalmology follow up outpatient IV access 01/06/2025 - Right Femoral - Right IJ - Right arm midline - Left arm peripheral Drips: Propofol, fentanyl Antibiotics: Zosyn and vancomycin plan: vascular consult for chronic lower extremity wounds Nephrology: HOLD DIURECTICS D/c antibiotic( vancomycin and meropenem); for the next 24 HOURS. if his wbc is worse, will start him on Aztreonam and linezolid solumedrol 60mg q8hrs benedryl 50 mg q8hrs Cpap trial if he wakes up and follow command Advance planning discussed with father. He is considering DNR for him as patient is unable to care for self Critical care time: 45 minutes Case and plan discussed with Dr. Lehman Plan discussed with: Patient My Orders My Orders Orders - NIKO IBARRA Procedure Category Date Status Time Chest Portable XY 01/10/25 Resulted 04:38 Consult CONS 01/10/25 Transmitted Vascular/Endovascular 07:27 Dietary Evaluation Review Recommendations by RD: Increase Calorie Intake Comments: Nutrition Recommendation: 1) Vital AF 1.2Cal @ 25ml/hr along with Pro-stat 1 pk BID. start @ 20ml/hr, increase 10ml/hr Q4H until goal is reached. TF @ goal volume along with propofol, IV D5wNS0.45%, and Pro-stat provides 1684 kcal (100% energy needs), 75gm protein (100% protein needs), 487ml free water. 2) TPN to meet 75% estimated needs if remains NPO 3) Bryce 1 pk BID for DFU Expected Outcomes/Goals: DFU to improve To maintain/gain weight To meet at least 75% estimated needs Fu 2-3 days Interpretation of weight loss: up to 5% in 1 month Muscle Mass (Severe): Mod to Severe Depletion Protein Calorie Malnutrition: Non-Severe Is there a minimum of two crit: Yes Date of Service: Jan 10, 2025 Billing Provider: PAM LEHMAN MD Common Visit Codes: NOT BILLABLE NIKO IBARRA Jan 10, 2025 14:34 PAM LEHMAN MD Jan 14, 2025 13:55
[2025-01-10] MEDS: DEXMEDETOMIDINE HCL IN D5W 100 ML IV SCH (15:15)
[2025-01-10] MEDS: methylPREDNISolone SOD SUCC 125 MG/2 ML VL IV SCH (16:42)
[2025-01-10] MEDS: diphenhdrAMINE HCL 50 MG/1 ML VL IV SCH (16:42)
[2025-01-10 16:48] LABS: Potassium 4.1 mmol/L (3.5-5.1)
[2025-01-10 16:50] LABS: Calcium 7.8 mg/dL (8.7-10.4)
[2025-01-10 17:02] LABS: Magnesium 2.4 mg/dL (1.6-2.6)
[2025-01-11] VITALS (106 sets, daily range): BP systolic 110–165; BP diastolic 66–92; PULSE 75–98; RESP 12–18; TEMP 96.6–98.6; O2SAT 98–100
[2025-01-11 02:59] LABS: Hemoglobin 8.0 g/dL (13.5-17.5); Nucleated Red Blood Cells % 0.0 %
[2025-01-11 03:00] LABS: Hematocrit 25.1 % (41.0-53.0); Mean Corpuscular Hemoglobin 23.5 pg (28.0-32.0); Mean Corpuscular Volume 73.8 fL (80.0-100.0)
[2025-01-11 03:09] LABS: Alanine Aminotransferase 22 U/L (7-40); Anion Gap 12 (5-15); BUN/Creatinine Ratio 20.6 (10.0-20.0); Carbon Dioxide 23 mmol/L (20-31); Chloride 102 mmol/L (98-107); Magnesium 2.2 mg/dL (1.6-2.6); Potassium 4.4 mmol/L (3.5-5.1); Sodium 137 mmol/L (136-145)
[2025-01-11 03:16] LABS: Albumin 2.9 g/dL (3.2-4.8); Alkaline Phosphatase 206 U/L (46-116); Bilirubin, Total < 0.2 mg/dL (0.2-1.0); Blood Urea Nitrogen 53 mg/dL (9-23); Calcium 7.4 mg/dL (8.7-10.4); Glucose 255 mg/dL (74-106); Total Protein 5.2 g/dL (5.7-8.2)
[2025-01-11 07:24] LABS: Base Excess -1.4 mmol/L (-2.0-3.0)
[2025-01-11] MEDS: BUMETANIDE 1mg/4ml VIAL (0.25mg/ml) IV SCH (07:56)
--- NOTE | 2025-01-11 09:37 | DVHPN2 ---
Progress Note Date Seen: Jan 11, 2025 Medical Necessity Reason Pt with a Central, PICC or Fol: Yes The following are medically ne: Central Line, Owens Catheter Subjective Review of Systems: RESPIRATORY:Abnormal Other Systems: Patient seen and examined by myself today in follow-up, patient remained intubated on ventilator Objective vital signs Vital Sign Date Time Temp Pulse Resp B/P (MAP) Pulse Ox O2 Delivery O2 Flow Rate FiO2 01/11/25 08:45 97.3 91 14 144/83 (103) 100 207.1 01/11/25 07:49 Mechanical Ventilator+ 30 30 Total Intake and Output 01/10/25 01/10/25 01/11/25 15:00 23:00 07:00 Intake Total 744 ml 599.0 ml 513.0 ml Output Total 950 ml 750 ml Balance 744 ml -351.0 ml -237.0 ml medications Current Medications Medications Dose Ordered Sig/Zaria Route Start Time Stop Time Status Last Admin Dose Admin Norepinephrine Bitartrate 250 ml @ 3.75 mls/hr Q24H IV 01/06/25 14:00 01/09/25 10:53 3.75 MLS/HR Propofol 100 ml @ 1.5 mls/hr Q24H IV 01/06/25 14:40 01/11/25 05:04 15 MLS/HR Acetaminophen/ Hydrocodone Bitart 1 tab Q4HP PRN PO 01/06/25 15:00 Ondansetron HCl 4 mg Q4HP PRN IV 01/06/25 15:00 Docusate Sodium 100 mg BIDPRN PRN PO 01/06/25 15:00 Acetaminophen 650 mg Q6HP PRN PO 01/06/25 15:00 Nitroglycerin 0.4 mg Q5MINP PRN SL 01/06/25 16:15 Morphine Sulfate 2 mg Q30M PRN IV 01/06/25 16:15 Midazolam HCl 50 ml @ 1 mls/hr Q24H IV 01/06/25 14:10 01/09/25 04:10 1 MLS/HR Famotidine 20 mg Q12HR IV 01/07/25 10:00 UNV Famotidine 20 mg DAILY IV 01/07/25 10:00 Hold 01/09/25 10:54 20 MG Diagnostic Test (Pha) 1 strip IQ4HR 01/07/25 08:00 Cancel Fentanyl Citrate 250 ml @ 2.5 mls/hr Q24H IV 01/08/25 10:45 01/11/25 03:31 2.5 MLS/HR Amino Acids 0 ml @ 0 mls/hr PER PHARMACY IV 01/08/25 15:45 Diagnostic Test (Pha) 1 strip Q6HR 01/08/25 18:00 01/11/25 05:49 1 STRIP Insulin Human Regular FOLLOW SLIDING SCALE Q6HR SC 01/08/25 18:00 01/11/25 05:49 12 UNITS Dextrose 50 ml UD IV 01/08/25 17:00 Calcium Gluconate/ Sodium Chloride 50 ml @ 100 mls/hr Q30M IV 01/08/25 17:30 01/08/25 18:29 Cancel Amino Acids/ Electrolytes/ Dextrose 1,000 ml @ 41 mls/hr DAILY@2200 IV 01/08/25 22:00 01/10/25 22:06 41 MLS/HR Pantoprazole Sodium 40 mg BID IV 01/10/25 10:00 01/11/25 07:56 40 MG Bumetanide 1 mg DAILY IV 01/11/25 10:00 01/11/25 07:56 1 MG Diphenhydramine HCl 50 mg Q8HR IV 01/10/25 18:00 01/11/25 05:55 50 MG Methylprednisolone Sodium Succinate 60 mg Q8HR IV 01/10/25 18:00 01/11/25 05:55 60 MG Examination: LUNGS:Normal, CVS:Normal, MSK:Normal laboratory and microbiology Laboratory Tests 01/11/25 02:11 Test 01/11/25 02:11 Range/Units Serum Glucose 255 H 74-106 mg/dL Microbiology Date/Time Source Procedure Growth Status 01/08/25 10:37 Stool Stool Culture - Final Complete 01/08/25 10:37 Stool Shiga Toxin I & II - Final Complete 01/07/25 13:18 Blood Blood Culture - Preliminary NO GROWTH AFTER 72 HOURS OF INCUBATION. Resulted 01/07/25 01:00 Nose MRSA Screen - Final Complete 01/06/25 15:14 Sputum Endotracheal Wash Gram Stain - Final Complete 01/06/25 15:14 Sputum Endotracheal Wash Respiratory Culture - Final Complete Problem List/Assessment/Plan Problem List/Assessment/Plan Acute kidney injury superimposed Chronic Kidney Disease secondary hemodynamic mediated ATN, FeNa > 2% Ventilator-dependent hypoxic respiratory failure Diabetic ketoacidosis Hyponatremia due to dehydration Hypocalcemia Hypomagnesemia Hypokalemia Anemia of chronic kidney disease Recommendations Kidney function is improving Increased urine output Hyponatremia resolved Strict I&O's Hold Bumex drip Bumex 1 mg IV q.day Calcium phosphorus and magnesium replacement Insulin sliding scale We will continue to follow up Plan discussed with: Other (Nurse) My Orders My Orders Orders - VIVIAN GRACIA MD Procedure Category Date Status Time Bumetanide Injection PHA 01/11/25 In Process (Bumex Injection) 10:00 Dietary Evaluation Review Recommendations by RD: Increase Calorie Intake Comments: Nutrition Recommendation: 1) Vital AF 1.2Cal @ 25ml/hr along with Pro-stat 1 pk BID. start @ 20ml/hr, increase 10ml/hr Q4H until goal is reached. TF @ goal volume along with propofol, IV D5wNS0.45%, and Pro-stat provides 1684 kcal (100% energy needs), 75gm protein (100% protein needs), 487ml free water. 2) TPN to meet 75% estimated needs if remains NPO 3) Bryce 1 pk BID for DFU Expected Outcomes/Goals: DFU to improve To maintain/gain weight To meet at least 75% estimated needs Fu 2-3 days Interpretation of weight loss: up to 5% in 1 month Muscle Mass (Severe): Mod to Severe Depletion Protein Calorie Malnutrition: Non-Severe Is there a minimum of two crit: Yes VIVIAN GRACIA MD Jan 11, 2025 09:37
[2025-01-11] MEDS ORDERED: Glucerna 1.2 Cal 1Liter BOTTLE GT SCH (09:45)
--- NOTE | 2025-01-11 09:49 | DVHPN2 ---
Assessment/Plan Assessment/Plan ICU note covering difficulty in titrating off meds. minimum vent reqs. on clinimix. transition to tube feeding. bowel reg physical exam sedated, intubated and mechanically ventilated PERRLA dry mucous membrane s1 s2 rrr mechanical breaths ounds abdomen soft diabetic foot labs ekg imaging reviewed assessment and plan septic shock DKA, gap closed acute hypoxic RF req mechanical ventilation toxic metabolic encephalopathy afib prolonged qt pneumonia gp vs gn gastroparesis anemia microcytic hypochromic HAGMA protein calorie malnutrition RADHA hemodynamic on CKD diabetic foot ulcer daily SAT/SBT c/w mechanical vent c/w sedation, maintain RAAS -2, add precedex c/w pressors, MAP >65 c/w bumex start tube feeding after sedation vacation start lantus and ISS lispro q6 dc zofran, monitor residual for TF, watch QTc diet clinimix, start TF dvt ppx hold gi ppx protonix cndition critical prognosis poor full code critical care time 60 mintues Plan discussed with: Other My Orders Orders - PATRICIA COLINDRES MD Procedure Category Date Status Time Nutritional PHA 01/11/25 Logged Supplements (Glucerna 09:45 Insulin Lantus PHA 01/11/25 Logged (Glargine) (Lantus) 10:00 Insulin Lispro PHA 01/11/25 Logged (Human) (Humalog) 10:00 Glucose Blood PHA 01/11/25 Logged (Accu-Chek Comfort 12:00 Dextrose 50% Syringe PHA 01/11/25 Logged 09:45 Date of Service: Jan 11, 2025 Billing Provider: PATRICIA COLINDRES MD Common Visit Codes: [id number] CARE 30-74 MIN PATRICIA COLINDRES MD Jan 11, 2025 09:49
[2025-01-11] MEDS: ACCU-CHEK COMFORT CURVE STRIP VI SCH (10:08)
[2025-01-11] MEDS: INSULIN LANTUS (GLARGINE) 1 /0.01ml (100units/ml) SC SCH (10:12)
[2025-01-11] MEDS: INSULIN LISPRO (HUMAN) 100 UNITS/ML ML SC SCH (10:12)
[2025-01-11] MEDS ORDERED: ACCU-CHEK COMFORT CURVE STRIP VI SCH (12:00)
--- NOTE | 2025-01-11 13:49 | DVHPN2 ---
Progress Note - Dictate Date Seen: Jan 11, 2025 Medical Necessity Reason Pt with a Central, PICC or Fol: Yes The following are medically ne: Central Line, Owens Catheter vital signs Vital Sign Date Time Temp Pulse Resp B/P (MAP) Pulse Ox O2 Delivery O2 Flow Rate FiO2 01/11/25 13:30 88 01/11/25 13:30 30 01/11/25 13:30 14 100 Mechanical Ventilator+ 01/11/25 11:30 98.1 121/73 (89) 208.6 Total Intake and Output 01/10/25 01/10/25 01/11/25 15:00 23:00 07:00 Intake Total 744 ml 599.0 ml 513.0 ml Output Total 950 ml 750 ml Balance 744 ml -351.0 ml -237.0 ml medications Current Medications Medications Dose Ordered Sig/Zaria Route Start Time Stop Time Status Last Admin Dose Admin Propofol 100 ml @ 1.5 mls/hr Q24H IV 01/06/25 14:40 01/11/25 05:04 15 MLS/HR Acetaminophen/ Hydrocodone Bitart 1 tab Q4HP PRN PO 01/06/25 15:00 Ondansetron HCl 4 mg Q4HP PRN IV 01/06/25 15:00 Acetaminophen 650 mg Q6HP PRN PO 01/06/25 15:00 Nitroglycerin 0.4 mg Q5MINP PRN SL 01/06/25 16:15 Morphine Sulfate 2 mg Q30M PRN IV 01/06/25 16:15 Midazolam HCl 50 ml @ 1 mls/hr Q24H IV 01/06/25 14:10 01/09/25 04:10 1 MLS/HR Famotidine 20 mg Q12HR IV 01/07/25 10:00 UNV Famotidine 20 mg DAILY IV 01/07/25 10:00 Hold 01/09/25 10:54 20 MG Diagnostic Test (Pha) 1 strip IQ4HR 01/07/25 08:00 Cancel Fentanyl Citrate 250 ml @ 2.5 mls/hr Q24H IV 01/08/25 10:45 01/11/25 03:31 2.5 MLS/HR Calcium Gluconate/ Sodium Chloride 50 ml @ 100 mls/hr Q30M IV 01/08/25 17:30 01/08/25 18:29 Cancel Pantoprazole Sodium 40 mg BID IV 01/10/25 10:00 01/11/25 07:56 40 MG Bumetanide 1 mg DAILY IV 01/11/25 10:00 01/11/25 07:56 1 MG Diphenhydramine HCl 50 mg Q8HR IV 01/10/25 18:00 01/11/25 13:01 50 MG Methylprednisolone Sodium Succinate 60 mg Q8HR IV 01/10/25 18:00 01/11/25 13:01 60 MG Enteral Nutritional Formula 1,000 ml 30ML/HR GT 01/11/25 09:45 Insulin Glargine 12 units DAILY@1000 SC 01/11/25 10:00 01/11/25 10:12 12 UNITS Insulin Human Lispro Q4HR SC 01/11/25 10:00 01/11/25 13:24 2 UNITS Dextrose 50 ml UD PRN IV 01/11/25 09:45 Diagnostic Test (Pha) 1 strip Q4HR 01/11/25 10:00 01/11/25 13:01 1 STRIP laboratory and microbiology Laboratory Tests 01/11/25 02:11 Test 01/11/25 02:11 Range/Units Serum Glucose 255 H 74-106 mg/dL Assessment/Plan Impression Acute hypoxemic respiratory failure Pneumonia Anemia DKA Patient seen and examined in ICU Events On mechanical ventilation S/p intubation PEEP 5, FiO2 30% Developed swelling of the upper airways and tongue yesterday Concern raised for reaction to antibiotics which were subsequently changed Started on steroids and Benadryl Decreased swelling noted today Negative cuff leak Labs and imaging reviewed ABG reviewed Management Vent support Titrate to maintain sats 90% or above Sedation for vent synchrony Until swelling resolves Continue antibiotics F/u cultures Bronchodilators Continue steroids Monitor renal function Monitor electrolytes Supplement as needed Pressors as needed for hemodynamic support To maintain a mean arterial pressure of 65 mmHg DVT prophylaxis Critical care time 35 minutes Dietary Evaluation Review Recommendations by RD: Increase Calorie Intake Comments: Nutrition Recommendation: 1) Vital AF 1.2Cal @ 25ml/hr along with Pro-stat 1 pk BID. start @ 20ml/hr, increase 10ml/hr Q4H until goal is reached. TF @ goal volume along with propofol, IV D5wNS0.45%, and Pro-stat provides 1684 kcal (100% energy needs), 75gm protein (100% protein needs), 487ml free water. 2) TPN to meet 75% estimated needs if remains NPO 3) Bryce 1 pk BID for DFU Expected Outcomes/Goals: DFU to improve To maintain/gain weight To meet at least 75% estimated needs Fu 2-3 days Interpretation of weight loss: up to 5% in 1 month Muscle Mass (Severe): Mod to Severe Depletion Protein Calorie Malnutrition: Non-Severe Is there a minimum of two crit: Yes Plan discussed with: Other (Rn) PAM LEHMAN MD Jan 11, 2025 13:49
[2025-01-11] MEDS: Glucerna 1.2 Cal 1Liter BOTTLE GT SCH (23:36)
[2025-01-12] VITALS (106 sets, daily range): BP systolic 115–167; BP diastolic 71–101; PULSE 82–106; RESP 7–20; TEMP 94.5–98.8; O2SAT 98–100
[2025-01-12 03:20] LABS: Hemoglobin 8.3 g/dL (13.5-17.5); Nucleated Red Blood Cells % 0.0 %
[2025-01-12 03:23] LABS: Hematocrit 26.6 % (41.0-53.0); Mean Corpuscular Hemoglobin 23.3 pg (28.0-32.0); Mean Corpuscular Volume 74.5 fL (80.0-100.0)
[2025-01-12 03:33] LABS: Alanine Aminotransferase 15 U/L (7-40); Anion Gap 12 (5-15); BUN/Creatinine Ratio 23.1 (10.0-20.0); Carbon Dioxide 23 mmol/L (20-31); Chloride 104 mmol/L (98-107); Potassium 4.4 mmol/L (3.5-5.1); Sodium 139 mmol/L (136-145)
[2025-01-12 03:35] LABS: Albumin 2.8 g/dL (3.2-4.8); Alkaline Phosphatase 216 U/L (46-116); Bilirubin, Total < 0.2 mg/dL (0.2-1.0); Blood Urea Nitrogen 60 mg/dL (9-23); Calcium 7.2 mg/dL (8.7-10.4); Glucose 230 mg/dL (74-106); Total Protein 5.4 g/dL (5.7-8.2)
[2025-01-12 06:34] LABS: Base Excess -1.6 mmol/L (-2.0-3.0)
[2025-01-12 10:27] LABS: Base Excess -0.3 mmol/L (-2.0-3.0)
--- NOTE | 2025-01-12 11:34 | DVHPN2 ---
Progress Note Date Seen: Jan 12, 2025 Medical Necessity Reason Pt with a Central, PICC or Fol: Yes The following are medically ne: Central Line, Owens Catheter Subjective Review of Systems: RESPIRATORY:Abnormal Other Systems: Patient seen and examined by myself today in follow-up, patient remained intubated on ventilator Objective vital signs Vital Sign Date Time Temp Pulse Resp B/P (MAP) Pulse Ox O2 Delivery O2 Flow Rate FiO2 01/12/25 10:45 94.5 106 11 162/97 (118) 100 202.1 01/12/25 09:30 Mechanical Ventilator+ 30 30 Total Intake and Output 01/11/25 01/11/25 01/12/25 15:00 23:00 07:00 Intake Total 230.5 ml 154.0 ml 147.5 ml Output Total 600 ml 450 ml Balance 230.5 ml -446.0 ml -302.5 ml medications Current Medications Medications Dose Ordered Sig/Zaria Route Start Time Stop Time Status Last Admin Dose Admin Propofol 100 ml @ 1.5 mls/hr Q24H IV 01/06/25 14:40 01/12/25 06:23 10.5 MLS/HR Acetaminophen/ Hydrocodone Bitart 1 tab Q4HP PRN PO 01/06/25 15:00 Ondansetron HCl 4 mg Q4HP PRN IV 01/06/25 15:00 Acetaminophen 650 mg Q6HP PRN PO 01/06/25 15:00 Nitroglycerin 0.4 mg Q5MINP PRN SL 01/06/25 16:15 Morphine Sulfate 2 mg Q30M PRN IV 01/06/25 16:15 Midazolam HCl 50 ml @ 1 mls/hr Q24H IV 01/06/25 14:10 01/09/25 04:10 1 MLS/HR Famotidine 20 mg Q12HR IV 01/07/25 10:00 UNV Famotidine 20 mg DAILY IV 01/07/25 10:00 Hold 01/09/25 10:54 20 MG Diagnostic Test (Pha) 1 strip IQ4HR 01/07/25 08:00 Cancel Fentanyl Citrate 250 ml @ 2.5 mls/hr Q24H IV 01/08/25 10:45 01/11/25 03:31 2.5 MLS/HR Calcium Gluconate/ Sodium Chloride 50 ml @ 100 mls/hr Q30M IV 01/08/25 17:30 01/08/25 18:29 Cancel Pantoprazole Sodium 40 mg BID IV 01/10/25 10:00 01/12/25 08:00 40 MG Bumetanide 1 mg DAILY IV 01/11/25 10:00 01/12/25 08:01 1 MG Diphenhydramine HCl 50 mg Q8HR IV 01/10/25 18:00 01/12/25 05:30 50 MG Methylprednisolone Sodium Succinate 60 mg Q8HR IV 01/10/25 18:00 01/12/25 05:29 60 MG Insulin Glargine 12 units DAILY@1000 SC 01/11/25 10:00 01/12/25 09:14 12 UNITS Insulin Human Lispro Q4HR SC 01/11/25 10:00 01/12/25 09:15 1 UNITS Dextrose 50 ml UD PRN IV 01/11/25 09:45 Diagnostic Test (Pha) 1 strip Q4HR 01/11/25 10:00 01/12/25 09:13 1 STRIP Enteral Nutritional Formula 1,000 ml 30ML/HR GT 01/11/25 18:45 01/11/25 23:36 1,000 ML Examination: LUNGS:Normal, CVS:Normal, MSK:Normal laboratory and microbiology Laboratory Tests 01/12/25 03:00 Test 01/12/25 03:00 Range/Units Serum Glucose 230 H 74-106 mg/dL Microbiology Date/Time Source Procedure Growth Status 01/08/25 10:37 Stool Stool Culture - Final Complete 01/08/25 10:37 Stool Shiga Toxin I & II - Final Complete 01/07/25 13:18 Blood Blood Culture - Preliminary NO GROWTH AFTER 72 HOURS OF INCUBATION. Resulted 01/07/25 01:00 Nose MRSA Screen - Final Complete 01/06/25 15:14 Sputum Endotracheal Wash Gram Stain - Final Complete 01/06/25 15:14 Sputum Endotracheal Wash Respiratory Culture - Final Complete Problem List/Assessment/Plan Problem List/Assessment/Plan Acute kidney injury superimposed Chronic Kidney Disease secondary hemodynamic mediated ATN, FeNa > 2% Ventilator-dependent hypoxic respiratory failure Diabetic ketoacidosis Hyponatremia due to dehydration Hypocalcemia Hypomagnesemia Hypokalemia Anemia of chronic kidney disease Recommendations Kidney function slowly is improving Increased urine output Hyponatremia resolved Strict I&O's Hold Bumex drip Bumex 1 mg IV q.day Calcium phosphorus and magnesium replacement Insulin sliding scale We will continue to follow up Plan discussed with: Other (Nurse) Dietary Evaluation Review Recommendations by RD: Increase Calorie Intake Comments: Nutrition Recommendation: 1) Vital AF 1.2Cal @ 25ml/hr along with Pro-stat 1 pk BID. start @ 20ml/hr, increase 10ml/hr Q4H until goal is reached. TF @ goal volume along with propofol, IV D5wNS0.45%, and Pro-stat provides 1684 kcal (100% energy needs), 75gm protein (100% protein needs), 487ml free water. 2) TPN to meet 75% estimated needs if remains NPO 3) Bryce 1 pk BID for DFU Expected Outcomes/Goals: DFU to improve To maintain/gain weight To meet at least 75% estimated needs Fu 2-3 days Interpretation of weight loss: up to 5% in 1 month Muscle Mass (Severe): Mod to Severe Depletion Protein Calorie Malnutrition: Non-Severe Is there a minimum of two crit: Yes VIVIAN GRACIA MD Jan 12, 2025 11:34
--- NOTE | 2025-01-12 12:57 | DVHPN2 ---
Assessment/Plan Assessment/Plan ICU note covering extubated. on oxymist. physical exam alert, follows command PERRLA dry mucous membrane s1 s2 rrr coarse breaths sounds abdomen soft diabetic foot labs ekg imaging reviewed assessment and plan septic shock DKA, gap closed acute hypoxic RF req mechanical ventilation toxic metabolic encephalopathy afib prolonged qt pneumonia gp vs gn gastroparesis anemia microcytic hypochromic HAGMA protein calorie malnutrition RADHA hemodynamic on CKD diabetic foot ulcer c/w bumex bedside swallow then resume diet start lantus and ISS lispro q6 dc zofran, monitor residual for TF, watch QTc diet cc dvt ppx hold gi ppx protonix cndition critical prognosis poor full code critical care time 60 mintues Plan discussed with: Patient My Orders Orders - PATRICIA COLINDRES MD Procedure Category Date Status Time Nutritional PHA 01/11/25 In Process Supplements (Glucerna 18:45 Abg W/ Co-Ox RT 01/12/25 Logged 10:11 Date of Service: Jan 12, 2025 Billing Provider: PATRICIA COLINDRES MD Common Visit Codes: [id number] CARE 30-74 MIN PATRICIA COLINDRES MD Jan 12, 2025 12:57
--- NOTE | 2025-01-12 13:43 | DVHPN2 ---
Progress Note - Dictate Date Seen: Jan 12, 2025 Medical Necessity Reason Pt with a Central, PICC or Fol: Yes The following are medically ne: Central Line, Owens Catheter vital signs Vital Sign Date Time Temp Pulse Resp B/P (MAP) Pulse Ox O2 Delivery O2 Flow Rate FiO2 01/12/25 13:32 10 100 Cool Aerosol 10 40 40 01/12/25 13:32 86 01/12/25 13:30 97.7 126/81 (96) 97.7 Total Intake and Output 01/11/25 01/11/25 01/12/25 15:00 23:00 07:00 Intake Total 230.5 ml 154.0 ml 147.5 ml Output Total 600 ml 450 ml Balance 230.5 ml -446.0 ml -302.5 ml medications Current Medications Medications Dose Ordered Sig/Zaria Route Start Time Stop Time Status Last Admin Dose Admin Propofol 100 ml @ 1.5 mls/hr Q24H IV 01/06/25 14:40 01/12/25 06:23 10.5 MLS/HR Acetaminophen/ Hydrocodone Bitart 1 tab Q4HP PRN PO 01/06/25 15:00 Ondansetron HCl 4 mg Q4HP PRN IV 01/06/25 15:00 Acetaminophen 650 mg Q6HP PRN PO 01/06/25 15:00 Nitroglycerin 0.4 mg Q5MINP PRN SL 01/06/25 16:15 Morphine Sulfate 2 mg Q30M PRN IV 01/06/25 16:15 Midazolam HCl 50 ml @ 1 mls/hr Q24H IV 01/06/25 14:10 01/09/25 04:10 1 MLS/HR Famotidine 20 mg Q12HR IV 01/07/25 10:00 UNV Famotidine 20 mg DAILY IV 01/07/25 10:00 Hold 01/09/25 10:54 20 MG Diagnostic Test (Pha) 1 strip IQ4HR 01/07/25 08:00 Cancel Fentanyl Citrate 250 ml @ 2.5 mls/hr Q24H IV 01/08/25 10:45 01/11/25 03:31 2.5 MLS/HR Calcium Gluconate/ Sodium Chloride 50 ml @ 100 mls/hr Q30M IV 01/08/25 17:30 01/08/25 18:29 Cancel Pantoprazole Sodium 40 mg BID IV 01/10/25 10:00 01/12/25 08:00 40 MG Bumetanide 1 mg DAILY IV 01/11/25 10:00 01/12/25 08:01 1 MG Diphenhydramine HCl 50 mg Q8HR IV 01/10/25 18:00 01/12/25 13:37 50 MG Methylprednisolone Sodium Succinate 60 mg Q8HR IV 01/10/25 18:00 01/12/25 13:37 60 MG Insulin Glargine 12 units DAILY@1000 SC 01/11/25 10:00 01/12/25 09:14 12 UNITS Insulin Human Lispro Q4HR SC 01/11/25 10:00 01/12/25 09:15 1 UNITS Dextrose 50 ml UD PRN IV 01/11/25 09:45 Diagnostic Test (Pha) 1 strip Q4HR 01/11/25 10:00 01/12/25 13:37 1 STRIP Enteral Nutritional Formula 1,000 ml 30ML/HR GT 01/11/25 18:45 01/11/25 23:36 1,000 ML laboratory and microbiology Laboratory Tests 01/12/25 03:00 Test 01/12/25 03:00 Range/Units Serum Glucose 230 H 74-106 mg/dL Assessment/Plan Impression Acute hypoxemic respiratory failure Pneumonia Anemia DKA Patient seen and examined in ICU Events Patient was successfully weaned from mechanical ventilation S/p extubation, transitioned to facemask No distress Labs and imaging reviewed ABG reviewed Management Supplemental oxygen Titrate to maintain sats 90% or above Incentive spirometry Aspiration precautions Swallow evaluation Continue antibiotics F/u cultures Bronchodilators Continue steroids Monitor renal function Monitor electrolytes Supplement as needed Pressors as needed for hemodynamic support To maintain a mean arterial pressure of 65 mmHg DVT prophylaxis Critical care time 35 minutes Dietary Evaluation Review Recommendations by RD: Increase Calorie Intake Comments: Nutrition Recommendation: 1) Vital AF 1.2Cal @ 25ml/hr along with Pro-stat 1 pk BID. start @ 20ml/hr, increase 10ml/hr Q4H until goal is reached. TF @ goal volume along with propofol, IV D5wNS0.45%, and Pro-stat provides 1684 kcal (100% energy needs), 75gm protein (100% protein needs), 487ml free water. 2) TPN to meet 75% estimated needs if remains NPO 3) Bryce 1 pk BID for DFU Expected Outcomes/Goals: DFU to improve To maintain/gain weight To meet at least 75% estimated needs Fu 2-3 days Interpretation of weight loss: up to 5% in 1 month Muscle Mass (Severe): Mod to Severe Depletion Protein Calorie Malnutrition: Non-Severe Is there a minimum of two crit: Yes Plan discussed with: Patient PAM LEHMAN MD Jan 12, 2025 13:43
[2025-01-12] MEDS ORDERED: THROAT LOZENGES(CEPASTAT) MT PRN (22:45)
[2025-01-13] VITALS (40 sets, daily range): BP systolic 121–168; BP diastolic 71–98; PULSE 94–116; RESP 7–19; TEMP 97.3–98.3; O2SAT 94–100
[2025-01-13] MEDS: HYDROcodone-ACET 5/325MG TAB PO PRN (00:17)
[2025-01-13] MEDS: hydrALAZINE HCL 20 MG/ML VL IV ONE (01:13)
[2025-01-13 03:29] LABS: Anion Gap 13 (5-15); Carbon Dioxide 24 mmol/L (20-31); Potassium 4.0 mmol/L (3.5-5.1)
[2025-01-13 03:34] LABS: Calcium 7.3 mg/dL (8.7-10.4); Chloride 108 mmol/L (98-107); Sodium 145 mmol/L (136-145)
[2025-01-13 03:35] LABS: BUN/Creatinine Ratio 25.8 (10.0-20.0); Blood Urea Nitrogen 59 mg/dL (9-23); Glucose 89 mg/dL (74-106); Hemoglobin 8.7 g/dL (13.5-17.5); Nucleated Red Blood Cells % 0.1 %
[2025-01-13 03:36] LABS: Magnesium 2.3 mg/dL (1.6-2.6)
[2025-01-13 03:38] LABS: Hematocrit 27.8 % (41.0-53.0); Mean Corpuscular Hemoglobin 23.1 pg (28.0-32.0); Mean Corpuscular Volume 73.9 fL (80.0-100.0)
--- NOTE | 2025-01-13 05:00 | DVH ---
CHEST RADIOGRAPH Indication: post extubation Technique: Single frontal view of the chest was obtained COMPARISON: XY CHEST PORTABLE on DOS: 01/10/25, XY CHEST XRAY 1 VIEW on DOS: 01/09/25, XY CHEST XRAY 1 VIEW on DOS: 01/08/25, XY CHEST XRAY 1 VIEW on DOS: 01/07/25, XY CHEST PORTABLE on DOS: 01/06/25 FINDINGS: Lines and Tubes: None Lungs: Patchy airspace disease bilaterally, [id number]. Pleura: No effusion. No pneumothorax. Cardiomediastinal contours: Unremarkable Bones: Unremarkable IMPRESSION: Patchy bilateral airspace disease, [id number], slightly increased
--- NOTE | 2025-01-13 11:34 | DVHPN2 ---
Progress Note Date Seen: Jan 13, 2025 Medical Necessity Reason Pt with a Central, PICC or Fol: Yes The following are medically ne: Central Line, Owens Catheter Subjective Patient reports: No new complaints Other Systems: Patient seen and examined by myself today in follow-up Objective vital signs Vital Sign Date Time Temp Pulse Resp B/P (MAP) Pulse Ox O2 Delivery O2 Flow Rate FiO2 01/13/25 10:00 98 12 142/90 (107) 98 01/13/25 10:00 Room Air* 0 21 01/13/25 08:00 98.3 98.3 Total Intake and Output 01/12/25 01/12/25 01/13/25 15:00 23:00 07:00 Intake Total 10.0 ml Output Total 650 ml 680 ml Balance 10.0 ml -650 ml -680 ml medications Current Medications Medications Dose Ordered Sig/Zaria Route Start Time Stop Time Status Last Admin Dose Admin Propofol 100 ml @ 1.5 mls/hr Q24H IV 01/06/25 14:40 01/12/25 06:23 10.5 MLS/HR Acetaminophen/ Hydrocodone Bitart 1 tab Q4HP PRN PO 01/06/25 15:00 01/13/25 06:50 1 TAB Ondansetron HCl 4 mg Q4HP PRN IV 01/06/25 15:00 Acetaminophen 650 mg Q6HP PRN PO 01/06/25 15:00 Nitroglycerin 0.4 mg Q5MINP PRN SL 01/06/25 16:15 Morphine Sulfate 2 mg Q30M PRN IV 01/06/25 16:15 Midazolam HCl 50 ml @ 1 mls/hr Q24H IV 01/06/25 14:10 01/09/25 04:10 1 MLS/HR Famotidine 20 mg Q12HR IV 01/07/25 10:00 UNV Famotidine 20 mg DAILY IV 01/07/25 10:00 Hold 01/09/25 10:54 20 MG Diagnostic Test (Pha) 1 strip IQ4HR 01/07/25 08:00 Cancel Fentanyl Citrate 250 ml @ 2.5 mls/hr Q24H IV 01/08/25 10:45 01/11/25 03:31 2.5 MLS/HR Calcium Gluconate/ Sodium Chloride 50 ml @ 100 mls/hr Q30M IV 01/08/25 17:30 01/08/25 18:29 Cancel Pantoprazole Sodium 40 mg BID IV 01/10/25 10:00 01/13/25 09:59 40 MG Bumetanide 1 mg DAILY IV 01/11/25 10:00 01/13/25 09:59 1 MG Diphenhydramine HCl 50 mg Q8HR IV 01/10/25 18:00 01/13/25 06:47 50 MG Methylprednisolone Sodium Succinate 60 mg Q8HR IV 01/10/25 18:00 01/13/25 06:47 60 MG Insulin Glargine 12 units DAILY@1000 SC 01/11/25 10:00 01/12/25 09:14 12 UNITS Insulin Human Lispro Q4HR SC 01/11/25 10:00 01/12/25 09:15 1 UNITS Dextrose 50 ml UD PRN IV 01/11/25 09:45 Diagnostic Test (Pha) 1 strip Q4HR 01/11/25 10:00 01/13/25 09:49 1 STRIP Enteral Nutritional Formula 1,000 ml 30ML/HR GT 01/11/25 18:45 01/11/25 23:36 1,000 ML Throat Lozenges 1 reza Q2HPRN PRN MT 01/12/25 22:45 Examination: LUNGS:Normal, CVS:Normal, MSK:Normal laboratory and microbiology Laboratory Tests 01/13/25 03:06 Test 01/13/25 03:06 Range/Units Serum Glucose 89 # 74-106 mg/dL Microbiology Date/Time Source Procedure Growth Status 01/08/25 10:37 Stool Stool Culture - Final Complete 01/08/25 10:37 Stool Shiga Toxin I & II - Final Complete 01/07/25 13:18 Blood Blood Culture - Final NO GROWTH AFTER 5 DAYS OF INCUBATION. Complete 01/07/25 01:00 Nose MRSA Screen - Final Complete 01/06/25 15:14 Sputum Endotracheal Wash Gram Stain - Final Complete 01/06/25 15:14 Sputum Endotracheal Wash Respiratory Culture - Final Complete Problem List/Assessment/Plan Problem List/Assessment/Plan Acute kidney injury superimposed Chronic Kidney Disease secondary hemodynamic mediated ATN, FeNa > 2% Acute hypoxic respiratory failure, patient extubated Diabetic ketoacidosis Hyponatremia due to dehydration Hypocalcemia Hypomagnesemia Hypokalemia Anemia of chronic kidney disease Recommendations Kidney function slowly is improving Increased urine output Hyponatremia resolved Strict I&O's Hold Bumex drip IVF half NS at 75 cc/hour Calcium phosphorus and magnesium replacement Insulin sliding scale We will continue to follow up Plan discussed with: Patient Dietary Evaluation Review Recommendations by RD: Increase Calorie Intake Comments: Nutrition Recommendation: 1) Vital AF 1.2Cal @ 25ml/hr along with Pro-stat 1 pk BID. start @ 20ml/hr, increase 10ml/hr Q4H until goal is reached. TF @ goal volume along with propofol, IV D5wNS0.45%, and Pro-stat provides 1684 kcal (100% energy needs), 75gm protein (100% protein needs), 487ml free water. 2) TPN to meet 75% estimated needs if remains NPO 3) Bryce 1 pk BID for DFU Expected Outcomes/Goals: DFU to improve To maintain/gain weight To meet at least 75% estimated needs Fu 2-3 days Interpretation of weight loss: up to 5% in 1 month Muscle Mass (Severe): Mod to Severe Depletion Protein Calorie Malnutrition: Non-Severe Is there a minimum of two crit: Yes VIVIAN GRACIA MD Jan 13, 2025 11:34
[2025-01-13] MEDS: SOD CHL 0.45% 1,000 ML IV SCH (11:45)
--- NOTE | 2025-01-13 12:04 | DVHPNRES ---
Progress Note Date Seen: Jan 13, 2025 Resident Creating Document: NIKO IBARRA RESIDENT Medical Necessity Reason Pt with a Central, PICC or Fol: No The following are medically ne: Owens Catheter Medical Necessity Reason Patient seen and examined this morning. Nurses present at the bed side. Patient is doing well. He was extubated yesterday . Currently on room air, off all sedation and he is tolerating oral feeds. Labs today shows wbc trending upwards: 11.6--> 12.6, hgb: stable and platelets WNL. Sodium is slightly trending upwards at 145 today. Creatinine is gradually trending downward with values at 2.29 ( from 2.79). Patient was seen by the home supervisor also and he recommended fluid ( half half NS at 75 cc/hour). Calcium phosphorus and magnesium replacement and Insulin sliding scale. Subjective Review of Systems Constitutional: has not complaints CVS: denies chest pain, tachy RESP: denies shortness of breath GI: hungry, denies any abdominal pains : has Owens and making good amount f urine. Skin: dry skin on lower extremities Allergies: Not aware any allergies Objective vital signs Vital Sign Date Time Temp Pulse Resp B/P (MAP) Pulse Ox O2 Delivery O2 Flow Rate FiO2 01/13/25 10:00 98 12 142/90 (107) 98 01/13/25 10:00 Room Air* 0 21 01/13/25 08:00 98.3 98.3 Total Intake and Output 01/12/25 01/12/25 01/13/25 15:00 23:00 07:00 Intake Total 10.0 ml Output Total 650 ml 680 ml Balance 10.0 ml -650 ml -680 ml medications Current Medications Medications Dose Ordered Sig/Zaria Route Start Time Stop Time Status Last Admin Dose Admin Propofol 100 ml @ 1.5 mls/hr Q24H IV 01/06/25 14:40 01/12/25 06:23 10.5 MLS/HR Acetaminophen/ Hydrocodone Bitart 1 tab Q4HP PRN PO 01/06/25 15:00 01/13/25 06:50 1 TAB Ondansetron HCl 4 mg Q4HP PRN IV 01/06/25 15:00 Acetaminophen 650 mg Q6HP PRN PO 01/06/25 15:00 Nitroglycerin 0.4 mg Q5MINP PRN SL 01/06/25 16:15 Morphine Sulfate 2 mg Q30M PRN IV 01/06/25 16:15 Midazolam HCl 50 ml @ 1 mls/hr Q24H IV 01/06/25 14:10 01/09/25 04:10 1 MLS/HR Famotidine 20 mg Q12HR IV 01/07/25 10:00 UNV Famotidine 20 mg DAILY IV 01/07/25 10:00 Hold 01/09/25 10:54 20 MG Diagnostic Test (Pha) 1 strip IQ4HR 01/07/25 08:00 Cancel Fentanyl Citrate 250 ml @ 2.5 mls/hr Q24H IV 01/08/25 10:45 01/11/25 03:31 2.5 MLS/HR Calcium Gluconate/ Sodium Chloride 50 ml @ 100 mls/hr Q30M IV 01/08/25 17:30 01/08/25 18:29 Cancel Pantoprazole Sodium 40 mg BID IV 01/10/25 10:00 01/13/25 09:59 40 MG Bumetanide 1 mg DAILY IV 01/11/25 10:00 01/13/25 09:59 1 MG Diphenhydramine HCl 50 mg Q8HR IV 01/10/25 18:00 01/13/25 06:47 50 MG Methylprednisolone Sodium Succinate 60 mg Q8HR IV 01/10/25 18:00 01/13/25 06:47 60 MG Insulin Glargine 12 units DAILY@1000 SC 01/11/25 10:00 01/12/25 09:14 12 UNITS Insulin Human Lispro Q4HR SC 01/11/25 10:00 01/12/25 09:15 1 UNITS Dextrose 50 ml UD PRN IV 01/11/25 09:45 Diagnostic Test (Pha) 1 strip Q4HR 01/11/25 10:00 01/13/25 09:49 1 STRIP Enteral Nutritional Formula 1,000 ml 30ML/HR GT 01/11/25 18:45 01/11/25 23:36 1,000 ML Throat Lozenges 1 reza Q2HPRN PRN MT 01/12/25 22:45 Sodium Chloride 1,000 ml @ 75 mls/hr [id number] IV 01/13/25 11:45 Examination General Appearance: Awake and conversation, No evidence of distress. HEENT: Atraumatic, lips red, poor dentition Respiratory: Adequate air entry Cardiovascular: Mildly Tachycardia, No murmurs Abdominal: NO distention, no tenderness, bowel sounds present, no scars noted Extremities: dry, scaling, erythematous, warm, ulcer left foot, right foot Skin: dry and scaling Neuro: AOX4, in bed, Psych/Mental Status: denied depression or suicidal ideation laboratory and microbiology Laboratory Tests 01/13/25 03:06 Test 01/13/25 03:06 Range/Units Serum Glucose 89 # 74-106 mg/dL Microbiology Date/Time Source Procedure Growth Status 01/08/25 10:37 Stool Stool Culture - Final Complete 01/08/25 10:37 Stool Shiga Toxin I & II - Final Complete 01/07/25 13:18 Blood Blood Culture - Final NO GROWTH AFTER 5 DAYS OF INCUBATION. Complete 01/07/25 01:00 Nose MRSA Screen - Final Complete 01/06/25 15:14 Sputum Endotracheal Wash Gram Stain - Final Complete 01/06/25 15:14 Sputum Endotracheal Wash Respiratory Culture - Final Complete Problem List/Assessment/Plan Problem List/Assessment/Plan Assessment and plan Neuro Metabolic encephalopathy in DKA Uremic encephalopathy - Treat the underlying condition likely sepsis. - see plan below Cardiovascular: AFIB on EKG Prolonged QTc interval Ventricular bigeminy - Amiodarone drip 1 time Respiratory: CXR: Bibasilar atelectasis or pneumonia. antibiotic: Meropenem and Vancomycin Gastrointestinal Gastroparesis( per father) Anemia, FOBT positive - pepcid - Consider GI consult when stable Endocrine/Metabolic: Diabetic Ketoacidosis Anion gap metabolic acidosis Hypernatremia-improving Hypermagnesemia Hyperphosphatemia Hypokalemia- corrected Severe protein calorie malnutrition, BMI 15.5 - Free water q4hrs - D5 W 1/2 NS 01/13/2025 - CMP-7 daily - Bicarb stopped 01/07/2025 stopped - diabetic diet initiated Genitourinary RADHA likely due to ATN CKD 3 - Free water q4hrs- - CMP-7 Q4hrs - Nephrology consult Hematology Acute anemia FOBT positive Thrombocytosis likely secondary to sepsis Treat the underlying infection S/P 1 unit of PRBC Infections Disease Cellulitis bilateral Diabetic foot ulcer, left foot Severe Sepsis with septic shock - wound culture pending - Blood cultures pending - Wound consult - Pet Care Attendant: seen patient - Vancomycin and Meropenem - Betadine - Repeat CBC, CMP daily Eyes ( Per father) : low vision Retinal detachment Diabetic retinopathy - Recommends ophthalmology follow up outpatient IV access 01/06/2025 - Right Femoral - Right IJ - Right arm midline - Left arm peripheral Antibiotics: Zosyn and vancomycin Discontinued plan: vascular consult for chronic lower extremity wounds Nephrology: BUMEX solumedrol 60mg q8hrs; benedryl 50 mg q8hrs: Discontinued Extubated 01/12/2025 Drips: Propofol, fentanyl: Discontinued Advance planning discussed with father. He is considering DNR for him as patient is unable to care for self Critical care time: 45 minutes Case and plan discussed with Dr. Lehman Plan discussed with: Patient, Other (father and nurse) My Orders My Orders Orders - NIKO IBARRA Procedure Category Date Status Time Transfer Orders XFER 01/13/25 Transmitted 11:49 Dietary Evaluation Review Recommendations by RD: Increase Calorie Intake Comments: Nutrition Recommendation: 1) Vital AF 1.2Cal @ 25ml/hr along with Pro-stat 1 pk BID. start @ 20ml/hr, increase 10ml/hr Q4H until goal is reached. TF @ goal volume along with propofol, IV D5wNS0.45%, and Pro-stat provides 1684 kcal (100% energy needs), 75gm protein (100% protein needs), 487ml free water. 2) TPN to meet 75% estimated needs if remains NPO 3) Bryce 1 pk BID for DFU Expected Outcomes/Goals: DFU to improve To maintain/gain weight To meet at least 75% estimated needs Fu 2-3 days Interpretation of weight loss: up to 5% in 1 month Muscle Mass (Severe): Mod to Severe Depletion Protein Calorie Malnutrition: Non-Severe Is there a minimum of two crit: Yes Date of Service: Jan 13, 2025 Billing Provider: PAM LEHMAN MD Common Visit Codes: NOT BILLABLE NIKO IBARRA Jan 13, 2025 12:04 PAM LEHMAN MD Jan 14, 2025 13:58
[2025-01-13] MEDS: ONDANSETRON HCL 4 MG/2 ML VIAL IV PRN (14:12)
[2025-01-13] MEDS: PROCHLORPERAZINE EDISYLATE 5 MG/ML 2ML VIAL IV ONE (16:15)
[2025-01-14] VITALS (8 sets, daily range): BP systolic 149–155; BP diastolic 84–91; PULSE 62–110; RESP 14–22; TEMP 97.4–98.9; O2SAT 93–98
[2025-01-14 07:35] LABS: Hematocrit 27.4 % (41.0-53.0); Hemoglobin 8.5 g/dL (13.5-17.5); Mean Corpuscular Hemoglobin 23.1 pg (28.0-32.0); Mean Corpuscular Volume 74.1 fL (80.0-100.0); Nucleated Red Blood Cells % 0.0 %
[2025-01-14 07:38] LABS: Anion Gap 12 (5-15); Carbon Dioxide 25 mmol/L (20-31); Chloride 112 mmol/L (98-107); Potassium 3.2 mmol/L (3.5-5.1); Sodium 149 mmol/L (136-145)
[2025-01-14 07:39] LABS: Calcium 7.9 mg/dL (8.7-10.4)
[2025-01-14 07:43] LABS: BUN/Creatinine Ratio 23.9 (10.0-20.0); Glucose 78 mg/dL (74-106)
[2025-01-14 07:46] LABS: Blood Urea Nitrogen 47 mg/dL (9-23)
[2025-01-14] MEDS: SOD CHL 0.45% 1,000 ML IV SCH (09:30)
[2025-01-14] MEDS: POTASSIUM EFFERVESENT TAB 25 MEQ PO ONE (10:14)
--- NOTE | 2025-01-14 11:39 | DVHPN2 ---
Progress Note Date Seen: Jan 14, 2025 Medical Necessity Reason Pt with a Central, PICC or Fol: No The following are medically ne: Owens Catheter Subjective Patient reports: No new complaints Other Systems: Patient seen examined by myself today in follow-up Objective vital signs Vital Sign Date Time Temp Pulse Resp B/P (MAP) Pulse Ox O2 Delivery O2 Flow Rate FiO2 01/14/25 10:15 145/84 01/14/25 08:00 86 16 98 Room Air* 0 21 01/14/25 05:00 98.0 98.0 Total Intake and Output 01/13/25 01/13/25 01/14/25 15:00 23:00 07:00 Intake Total 0 ml 585 ml Output Total 150 ml 1000 ml Balance -150 ml -415 ml medications Current Medications Medications Dose Ordered Sig/Zaria Route Start Time Stop Time Status Last Admin Dose Admin Acetaminophen/ Hydrocodone Bitart 1 tab Q4HP PRN PO 01/06/25 15:00 01/13/25 22:59 1 TAB Ondansetron HCl 4 mg Q4HP PRN IV 01/06/25 15:00 01/13/25 14:12 4 MG Acetaminophen 650 mg Q6HP PRN PO 01/06/25 15:00 Nitroglycerin 0.4 mg Q5MINP PRN SL 01/06/25 16:15 Morphine Sulfate 2 mg Q30M PRN IV 01/06/25 16:15 Famotidine 20 mg Q12HR IV 01/07/25 10:00 UNV Diagnostic Test (Pha) 1 strip IQ4HR 01/07/25 08:00 Cancel Calcium Gluconate/ Sodium Chloride 50 ml @ 100 mls/hr Q30M IV 01/08/25 17:30 01/08/25 18:29 Cancel Pantoprazole Sodium 40 mg BID IV 01/10/25 10:00 01/14/25 10:14 40 MG Bumetanide 1 mg DAILY IV 01/11/25 10:00 01/14/25 10:14 1 MG Diphenhydramine HCl 50 mg Q8HR IV 01/10/25 18:00 01/14/25 06:44 50 MG Insulin Glargine 12 units DAILY@1000 SC 01/11/25 10:00 01/13/25 14:15 12 UNITS Insulin Human Lispro Q4HR SC 01/11/25 10:00 01/12/25 09:15 1 UNITS Dextrose 50 ml UD PRN IV 01/11/25 09:45 Diagnostic Test (Pha) 1 strip Q4HR 01/11/25 10:00 01/14/25 10:15 1 STRIP Throat Lozenges 1 reza Q2HPRN PRN MT 01/12/25 22:45 Sodium Chloride 1,000 ml @ 100 mls/hr Q10H IV 01/14/25 09:30 01/14/25 09:30 100 MLS/HR Amlodipine Besylate 5 mg DAILY PO 01/14/25 10:00 01/14/25 10:15 5 MG Examination: LUNGS:Normal, CVS:Normal, MSK:Normal laboratory and microbiology Laboratory Tests 01/14/25 06:30 Test 01/14/25 06:30 Range/Units Serum Glucose 78 74-106 mg/dL Microbiology Date/Time Source Procedure Growth Status 01/08/25 10:37 Stool Stool Culture - Final Complete 01/08/25 10:37 Stool Shiga Toxin I & II - Final Complete 01/07/25 13:18 Blood Blood Culture - Final NO GROWTH AFTER 5 DAYS OF INCUBATION. Complete 01/07/25 01:00 Nose MRSA Screen - Final Complete 01/06/25 15:14 Sputum Endotracheal Wash Gram Stain - Final Complete 01/06/25 15:14 Sputum Endotracheal Wash Respiratory Culture - Final Complete Problem List/Assessment/Plan Problem List/Assessment/Plan Acute kidney injury superimposed Chronic Kidney Disease secondary hemodynamic mediated ATN, FeNa > 2% Acute hypoxic respiratory failure, patient extubated Diabetic ketoacidosis Hypernatremia due to dehydration Hypocalcemia Hypomagnesemia Hypokalemia Anemia of chronic kidney disease Recommendations Kidney function slowly is improving Increased urine output Hyponatremia resolved Strict I&O's Hold Bumex drip IVF half NS at 100 cc/hour Calcium phosphorus and magnesium replacement Insulin sliding scale We will continue to follow up Plan discussed with: Patient, Other (Mother) My Orders My Orders Orders - VIVIAN GRACIA MD Procedure Category Date Status Time Sod Chl 0.45% (Sodium PHA 01/14/25 In Process Chloride 0.45% Via 09:30 Amlodipine Tablet PHA 01/14/25 In Process (Norvasc Tablet) 10:00 Dietary Evaluation Review Recommendations by RD: Increase Calorie Intake Comments: Nutrition Recommendation: 1) Vital AF 1.2Cal @ 25ml/hr along with Pro-stat 1 pk BID. start @ 20ml/hr, increase 10ml/hr Q4H until goal is reached. TF @ goal volume along with propofol, IV D5wNS0.45%, and Pro-stat provides 1684 kcal (100% energy needs), 75gm protein (100% protein needs), 487ml free water. 2) TPN to meet 75% estimated needs if remains NPO 3) Bryce 1 pk BID for DFU Expected Outcomes/Goals: DFU to improve To maintain/gain weight To meet at least 75% estimated needs Fu 2-3 days Interpretation of weight loss: up to 5% in 1 month Muscle Mass (Severe): Mod to Severe Depletion Protein Calorie Malnutrition: Non-Severe Is there a minimum of two crit: Yes VIVIAN GRACIA MD Jan 14, 2025 11:39
--- NOTE | 2025-01-14 18:50 | DVHCONRES ---
Date Seen: Jan 14, 2025 Resident Creating Document: DIMA COREY Jr., MD Referring Physician er Reason for Consultation foot ulcers History of Present Illness The patient is a 44-year-old male with past medical history of diabetes mellitus who presented to [facility] ED for evaluation of altered level of consciousness. As reported by EMS, patient's blood sugar 2 two the 3rd and was started on IV fluids proximally 400 cc in the field EN route to our facility ED. patient's condition progressively get worse hypoxia, generalized weakness, increased work of breathing, and subsequently intubated. Patient was seen and evaluated in the ED, laboratory data shows WBC 23.2 hemoglobin 8.4, hematocrit 34.6, platelets 931, sodium 155, potassium 4.7, BUN 28, creatinine 2.63, glucose 931, anion gap 36.00, calcium 8.3, lipase 52, troponin 7, phosphorus 9.4, magnesium 3.6, alkaline phos 388, lactic acid 1.9, blood pressure 101/58, heart rate 94, temperature 94.9 F, O2 saturation 99% on ventilator. Chest x-ray show no acute cardiopulmonary disease. Patient was started on IV antibiotic regimen Zosyn, on insulin drip, please see medication orders section in the computer. On my assessment, patient remains fully intubated, no diaphoresis, no diarrhea, no vomiting, no fever, no chills. Patient was admitted for further evaluation and medical management. Patient states he has had the foot ulcers for some time. His glucose has been poorly controlled. He has never had any arterial procedures done on his legs. He is a nonsmoker nondrinker. Past Medical History Diabetic Past Surgical History None Family History: Alzheimer's disease Grandparent Arthritis G8 MOTHER Diabetes mellitus FH: kidney disease G8 FATHER Hypertension G8 MOTHER G8 FATHER Social History Nonsmoker nondrinker Allergies: Coded Allergies: Penicillins (Verified Adverse Reaction, Severe, ANAPHYLAXIS , 01/08/25) Piperacillin (Verified Adverse Reaction, Severe, ANAPHYLAXIS , 01/08/25) Tazobactam (Verified Adverse Reaction, Severe, ANAPHYLAXIS , 01/08/25) Home Meds Active Scripts Metoclopramide Hcl (Reglan) 5 Mg Tab, 5 MG PO TID for 14 Days, #42 TAB Prov:NGA GARCIA RESIDENT 12/06/24 Pantoprazole Sodium Sesquihydr (Pantoprazole Sodium) 40 Mg Tab, 40 MG PO DAILY@0600 for 30 Days, #30 TAB Prov:NGA GARCIA RESIDENT 12/06/24 Current Medications Current Medications Medications (Trade) Dose Ordered Sig/Zaria Route PRN Reason Start Time Stop Time Status Last Admin Sodium Chloride 1,000 ml @ 100 mls/hr Q10H IV 01/14/25 09:30 01/14/25 09:30 Amlodipine Besylate (Norvasc Tablet) 5 mg DAILY PO 01/14/25 10:00 01/14/25 10:15 Review of Systems All systems reviewed otherwise negative other than what is in HPI. Vital Signs Vital Signs Date Time Temp Pulse Resp B/P (MAP) Pulse Ox O2 Delivery O2 Flow Rate FiO2 01/14/25 16:43 97.6 109 18 154/89 (110) 94 97.6 01/14/25 08:00 Room Air* 0 21 Physical Exam Head eyes ears nose and throat exam eyes are nonicteric conjunctiva is pink neck was supple no JVD no lymphadenopathy no carotid bruits lungs clear to auscultation heart was regular rate and rhythm abdomen is soft nontender with no pulsatile abdominal masses or bruits lower extremities palpable femoral and pedal pulses bilaterally. He has some dry wounds on the bottom of his feet bilaterally. Labs/Diagnostic Data Labs Test 01/14/25 17:20 01/14/25 06:30 01/13/25 03:06 01/12/25 10:10 Range/Units POC Glucose 210 H 70-106 mg/dl White Blood Count 11.8 H 4.4-10.8 10^3/uL Red Blood Count 3.69 L 4.5-5.90 10^6/uL Hemoglobin 8.5 L 13.5-17.5 g/dL Hematocrit 27.4 L 41.0-53.0 % Mean Corpuscular Volume 74.1 L 80.0-100.0 fL Mean Corpuscular Hemoglobin 23.1 L 28.0-32.0 pg Mean Corpuscular Hemoglobin Concent 31.1 L 32.0-36.0 g/dL Red Cell Distribution Width 19.1 H 11.8-14.3 % Platelet Count 384 140-450 10^3/uL Mean Platelet Volume 6.6 L 6.9-10.8 fL Neutrophils (%) (Auto) 57.1 37.0-80.0 % Lymphocytes (%) (Auto) 24.4 10.0-50.0 % Monocytes (%) (Auto) 12.6 H 0.0-12.0 % Eosinophils (%) (Auto) 5.2 0.0-7.0 % Basophils (%) (Auto) 0.7 0.0-2.0 % Neutrophils # (Auto) 6.8 1.6-8.6 10 ^3/uL Lymphocytes # (Auto) 2.9 0.4-5.4 10 ^3/uL Monocytes # (Auto) 1.5 H 0-1.3 10 ^3/uL Eosinophils # (Auto) 0.6 0-0.8 10 ^3/uL Basophils # (Auto) 0.1 0-0.2 10 ^3/uL Nucleated Red Blood Cells 0.0 % Sodium Level 149 H 136-145 mmol/L Potassium Level 3.2 L 3.5-5.1 mmol/L Chloride Level 112 H 98-107 mmol/L Carbon Dioxide Level 25 20-31 mmol/L Anion Gap 12 5-15 Blood Urea Nitrogen 47 #H 9-23 mg/dL Creatinine 1.97 H 0.700-1.30 mg/dL Glomerular Filtration Rate Calc 42 >90 mL/min BUN/Creatinine Ratio 23.9 H 10.0-20.0 Serum Glucose 78 74-106 mg/dL Calcium Level 7.9 L 8.7-10.4 mg/dL Magnesium Level 2.3 1.6-2.6 mg/dL Blood Gas Specimen Type Arterial Blood Gas Sample Site Left radial Blood Gas Patient Temperature 37.0 Arterial Blood Date Drawn [id number] Arterial Blood pH 7.400 7.350-7.450 Arterial Blood Partial Pressure CO2 40.3 35.0-48.0 mmHg Arterial Blood Partial Pressure O2 92.1 83.0-108.0 mmHg Arterial Blood HCO3 24.4 21.0-28.0 mmol/L Arterial Blood Oxygen Saturation 96.6 94.0-98.0 % Arterial Blood Base Excess -0.3 -2.0-3.0 mmol/L Arterial Blood Oxyhemoglobin 96.1 94.0-98.0 % Arterial Blood Carboxyhemoglobin 0.2 L 0.5-1.5 % Arterial Blood Methemoglobin 0.3 0.0-1.5 % Kyle Test Modified Blood Gas Total Hemoglobin 10.00 L 13.5-17.5 g/dL Blood Gas Modality Vent - cpap FiO2 % 30.0 Blood Gas Pressure Support 8 Blood Gas PEEP or CPAP 5.0 Test 01/12/25 06:25 01/12/25 03:00 01/11/25 02:11 01/10/25 11:50 Range/Units Blood Gas Set Respiration Rate 14.0 Blood Gas Tidal Volume 450.0 Total Bilirubin < 0.2 L 0.2-1.0 mg/dL Aspartate Amino Transferase (AST) < 8 <34 U/L Alanine Aminotransferase (ALT) 15 7-40 U/L Alkaline Phosphatase 216 H 46-116 U/L Total Protein 5.4 L 5.7-8.2 g/dL Albumin 2.8 L 3.2-4.8 g/dL Phosphorus Level 3.7 2.4-5.1 mg/dL Urine Color Colorless Yellow Urine Clarity Clear Clear Urine pH 5.5 5.0-9.0 Urine Specific [place] 1.009 1.001-1.035 Urine Protein 1+ H Negative Urine Ketones Negative Negative Urine Blood 2+ H Negative /uL Urine Nitrite Negative Negative Urine Bilirubin Negative Negative Urine Urobilinogen Normal Negative mg/dL Urine Leukocyte Esterase Negative Negative /uL Urine RBC 35 0 - 3 /hpf Urine Microscopic WBC 1 0-3 /HPF Urine Squamous Epithelial Cells Few <5 /hpf Urine Bacteria Few H None Seen /hpf Urine Creatinine 26.27 L 30.0-125.0 mg/dL Urine Protein/Creatinine Ratio 7.12 Urine Sodium 79 40-220 mmol/L Urine Glucose 1+ H Normal mg/dL Urine Total Protein 187.1 H 1-14 mg/dL Test 01/10/25 06:25 01/10/25 03:20 01/09/25 03:00 01/08/25 18:27 Range/Units Blood Gas Critical Value Read Back Yes Blood Gas Notified Whom janice Duarte md Blood Gas Notified Time [id number] Blood Gas Notified By Merly robles i. Random Vancomycin Level 17.9 H 5-10 ug/mL Hemoglobin A1c 8.9 H <5.7 % A1C Triglycerides Level 222 H < 150 mg/dL Parathyroid Hormone (Intact) 264.7 H 18.4-80.1 pg/mL Urine Osmolality 300 mOsm/kg Test 01/08/25 10:37 01/06/25 23:08 01/06/25 16:10 01/06/25 15:00 Range/Units Stool Occult Blood Positive Negative Stool Occult Blood Sample #3 Negative Stool for White Cells Moderate Specimen Drawn By Urine Hyaline Casts Mod 0 - 2 /lpf Urine Opiates Screen Neg NEGATIVE Urine Fentanyl Screen Neg NEGATIVE Urine Barbiturates Screen Neg NEGATIVE Urine Phencyclidine Screen Neg NEGATIVE Urine Amphetamines Screen Neg NEGATIVE Urine Benzodiazepines Screen Neg NEGATIVE Urine Cocaine Screen Neg NEGATIVE Urine Cannabinoids Screen Pos NEGATIVE Differential Total Cells Counted 100.0 100 Neutrophils % (Manual) 89 H 37.0-80.0 Band Neutrophils % (Manual) 4 Lymphocytes % (Manual) 3 L 10.0-50.0 Monocytes % (Manual) 4 0-12 Eosinophils % (Manual) 0 0-7 Basophils % (Manual) 0 0.0-2.0 Metamyelocytes % (manual) 0 Myelocytes % (Manual) 0 Promyelocytes % (Manual) 0 Blast Cells % (Manual) 0 Reactive Lymphocytes 0 Platelet Estimate Markedly increased Large Platelets Hypochromasia (manual) Marked Anisocytosis (manual) Slight Troponin I High Sensitivity 15 </=54 ng/L Test 01/06/25 13:12 Range/Units Serum Osmolality 420 H 278-298 mOsm/kg Lactic Acid Level 1.9 0.4-2.0 mmol/L Creatine Kinase 151 46-171 U/L Lipase 52 12-53 U/L Beta-Hydroxybutyric Acid > 4.500 H < 0.4 mmol/L Microbiology Date/Time Source Procedure Growth Status 01/08/25 10:37 Stool Stool Culture - Final Complete 01/08/25 10:37 Stool Shiga Toxin I & II - Final Complete 01/07/25 13:18 Blood Blood Culture - Final NO GROWTH AFTER 5 DAYS OF INCUBATION. Complete 01/07/25 01:00 Nose MRSA Screen - Final Complete 01/06/25 15:14 Sputum Endotracheal Wash Gram Stain - Final Complete 01/06/25 15:14 Sputum Endotracheal Wash Respiratory Culture - Final Complete Assessment Foot ulcer Plan/Recommendation No vascular procedures needed at this time. Continue with current wound care. Strict glucose control. Plan discussed with: Patient DIMA COREY Jr., MD Jan 14, 2025 18:50
--- NOTE | 2025-01-14 19:29 | DVHPNRES ---
Progress Note Date Seen: Jan 14, 2025 Resident Creating Document: NIKO IBARRA RESIDENT Medical Necessity Reason Pt with a Central, PICC or Fol: No The following are medically ne: Owens Catheter Medical Necessity Reason Patient is seen and examined today. He is doing much he is. At the time of visit patient brought for lunch. Put in a consult for patient to be seen by vascular surgeon given the chronic ulcers. As patient is unable to really walk reach out to Dr. Clinical scale he said the patient also as positive. Otherwise patient is doing well. Subjective Review of Systems Constitutional: Denies fever no chills no feeling of malaise HEENT: Denies headache, ear pain, ear discharges, conjunctivitis, nasal discharge throat pain Cardiovascular: Denies chest pain, palpitation, orthopnea, PND, or pedal edema Respiratory: Denies shortness of breath, cough cough, sputum production, hemoptysis, GI: Denies abdominal pain, nausea, vomiting, diarrhea, hematemesis, hematochezia, : Denies frequency, urgency, hematuria, Endocrine: Denies unintentional weight gain or weight loss, feeling of hot flashes, Yvse: Denies easy bruising, bleeding disorders, epistaxis Musculoskeletal: Denies joint pains, muscle aches Psych: No evidence of depression, jakub, suicidal ideation Objective vital signs Vital Sign Date Time Temp Pulse Resp B/P (MAP) Pulse Ox O2 Delivery O2 Flow Rate FiO2 01/14/25 16:43 97.6 109 18 154/89 (110) 94 97.6 01/14/25 08:00 Room Air* 0 21 Total Intake and Output 01/13/25 01/13/25 01/14/25 15:00 23:00 07:00 Intake Total 0 ml 585 ml Output Total 150 ml 1000 ml Balance -150 ml -415 ml medications Current Medications Medications Dose Ordered Sig/Zaria Route Start Time Stop Time Status Last Admin Dose Admin Acetaminophen/ Hydrocodone Bitart 1 tab Q4HP PRN PO 01/06/25 15:00 01/13/25 22:59 1 TAB Ondansetron HCl 4 mg Q4HP PRN IV 01/06/25 15:00 01/13/25 14:12 4 MG Acetaminophen 650 mg Q6HP PRN PO 01/06/25 15:00 Nitroglycerin 0.4 mg Q5MINP PRN SL 01/06/25 16:15 Morphine Sulfate 2 mg Q30M PRN IV 01/06/25 16:15 Famotidine 20 mg Q12HR IV 01/07/25 10:00 UNV Diagnostic Test (Pha) 1 strip IQ4HR 01/07/25 08:00 Cancel Calcium Gluconate/ Sodium Chloride 50 ml @ 100 mls/hr Q30M IV 01/08/25 17:30 01/08/25 18:29 Cancel Pantoprazole Sodium 40 mg BID IV 01/10/25 10:00 01/14/25 10:14 40 MG Bumetanide 1 mg DAILY IV 01/11/25 10:00 01/14/25 10:14 1 MG Diphenhydramine HCl 50 mg Q8HR IV 01/10/25 18:00 01/14/25 15:01 50 MG Insulin Glargine 12 units DAILY@1000 SC 01/11/25 10:00 01/13/25 14:15 12 UNITS Insulin Human Lispro Q4HR SC 01/11/25 10:00 01/14/25 17:28 2 UNITS Dextrose 50 ml UD PRN IV 01/11/25 09:45 Diagnostic Test (Pha) 1 strip Q4HR 01/11/25 10:00 01/14/25 17:23 1 STRIP Throat Lozenges 1 reza Q2HPRN PRN MT 01/12/25 22:45 Sodium Chloride 1,000 ml @ 100 mls/hr Q10H IV 01/14/25 09:30 01/14/25 09:30 100 MLS/HR Amlodipine Besylate 5 mg DAILY PO 01/14/25 10:00 01/14/25 10:15 5 MG Examination General Appearance: Awake and conversation, No evidence of distress. HEENT: Atraumatic, lips red, poor dentition Respiratory: Adequate air entry Cardiovascular: Mildly Tachycardia, No murmurs Abdominal: NO distention, no tenderness, bowel sounds present, no scars noted Extremities: dry, scaling, erythematous, warm, ulcer left foot, right foot Skin: dry and scaling Neuro: AOX4, in bed, Psych/Mental Status: denied depression or suicidal ideation laboratory and microbiology Laboratory Tests 01/14/25 06:30 Test 01/14/25 06:30 Range/Units Serum Glucose 78 74-106 mg/dL Microbiology Date/Time Source Procedure Growth Status 01/08/25 10:37 Stool Stool Culture - Final Complete 01/08/25 10:37 Stool Shiga Toxin I & II - Final Complete 01/07/25 13:18 Blood Blood Culture - Final NO GROWTH AFTER 5 DAYS OF INCUBATION. Complete 01/07/25 01:00 Nose MRSA Screen - Final Complete 01/06/25 15:14 Sputum Endotracheal Wash Gram Stain - Final Complete 01/06/25 15:14 Sputum Endotracheal Wash Respiratory Culture - Final Complete Problem List/Assessment/Plan Problem List/Assessment/Plan Assessment and plan Neuro Metabolic encephalopathy in DKA Uremic encephalopathy - Treat the underlying condition likely sepsis. - see plan below Cardiovascular: AFIB on EKG Prolonged QTc interval Ventricular bigeminy - Amiodarone drip 1 time Respiratory: CXR: Bibasilar atelectasis or pneumonia. antibiotic: Meropenem and Vancomycin Gastrointestinal Gastroparesis( per father) Anemia, FOBT positive - pepcid - Consider GI consult when stable Endocrine/Metabolic: Diabetic Ketoacidosis Anion gap metabolic acidosis Hypernatremia-improving Hypermagnesemia Hyperphosphatemia Hypokalemia- corrected Severe protein calorie malnutrition, BMI 15.5 - Free water q4hrs - D5 W 1/2 NS 01/13/2025 - CMP-7 daily - Bicarb stopped 01/07/2025 stopped - diabetic diet initiated Genitourinary RADHA likely due to ATN CKD 3 - Free water q4hrs- - CMP-7 Q4hrs - Nephrology consult Hematology Acute anemia FOBT positive Thrombocytosis likely secondary to sepsis Treat the underlying infection S/P 1 unit of PRBC Infections Disease Cellulitis bilateral Diabetic foot ulcer, left foot Severe Sepsis with septic shock - wound culture pending - Blood cultures pending - Wound consult - Crew Person: seen patient - Vancomycin and Meropenem - Betadine - Repeat CBC, CMP daily Eyes ( Per father) : low vision Retinal detachment Diabetic retinopathy - Recommends ophthalmology follow up outpatient IV access 01/06/2025 - Right Femoral - Right IJ - Right arm midline - Left arm peripheral Antibiotics: Zosyn and vancomycin Discontinued plan: vascular consult for chronic lower extremity wounds Nephrology: BUMEX solumedrol 60mg q8hrs; benedryl 50 mg q8hrs: Discontinued Vascular surgeon assessment for vessel disease Extubated 01/12/2025 Drips: Propofol, fentanyl: Discontinued Diet: Diabetic regular diet Advance planning discussed with father. He is considering DNR for him as patient is unable to care for self Goal of care discussed for 20 minutes Case and plan discussed with Dr. Lehman Plan discussed with: Patient, Other Dietary Evaluation Review Recommendations by RD: Increase Calorie Intake Comments: Nutrition Recommendation: 1) Vital AF 1.2Cal @ 25ml/hr along with Pro-stat 1 pk BID. start @ 20ml/hr, increase 10ml/hr Q4H until goal is reached. TF @ goal volume along with propofol, IV D5wNS0.45%, and Pro-stat provides 1684 kcal (100% energy needs), 75gm protein (100% protein needs), 487ml free water. 2) TPN to meet 75% estimated needs if remains NPO 3) Bryce 1 pk BID for DFU Expected Outcomes/Goals: DFU to improve To maintain/gain weight To meet at least 75% estimated needs Fu 2-3 days Interpretation of weight loss: up to 5% in 1 month Muscle Mass (Severe): Mod to Severe Depletion Protein Calorie Malnutrition: Non-Severe Is there a minimum of two crit: Yes Date of Service: Jan 14, 2025 Billing Provider: PAM LEHMAN MD Common Visit Codes: NOT BILLABLE NIKO IBARRA RESIDENT Jan 14, 2025 19:29 PAM LEHMAN MD Jan 20, 2025 18:04
[2025-01-15] VITALS (8 sets, daily range): BP systolic 131–155; BP diastolic 77–92; PULSE 105–115; RESP 14–20; TEMP 97.9–99.6; O2SAT 91–95
[2025-01-15 10:50] LABS: Hematocrit 25.6 % (41.0-53.0); Hemoglobin 8.0 g/dL (13.5-17.5)
[2025-01-15 10:52] LABS: Mean Corpuscular Hemoglobin 23.5 pg (28.0-32.0); Mean Corpuscular Volume 75.1 fL (80.0-100.0); Nucleated Red Blood Cells % 0.1 %
[2025-01-15 10:53] LABS: Potassium 3.5 mmol/L (3.5-5.1); Sodium 144 mmol/L (136-145)
[2025-01-15 10:54] LABS: Anion Gap 14 (5-15); Carbon Dioxide 22 mmol/L (20-31)
[2025-01-15 10:59] LABS: BUN/Creatinine Ratio 20.8 (10.0-20.0)
[2025-01-15 11:02] LABS: Blood Urea Nitrogen 37 mg/dL (9-23); Calcium 7.5 mg/dL (8.7-10.4); Chloride 108 mmol/L (98-107); Glucose 131 mg/dL (74-106)
--- NOTE | 2025-01-15 12:25 | DVHPN2 ---
Progress Note Date Seen: Jan 15, 2025 Medical Necessity Reason Pt with a Central, PICC or Fol: No The following are medically ne: Owens Catheter Subjective Patient reports: No new complaints Other Systems: Patient seen and examined by myself today in follow-up, mother at the bedside Objective vital signs Vital Sign Date Time Temp Pulse Resp B/P (MAP) Pulse Ox O2 Delivery O2 Flow Rate FiO2 01/15/25 09:10 144/88 01/15/25 09:00 98.7 109 20 95 98.7 01/15/25 07:58 Room Air* 0 21 Total Intake and Output 01/14/25 01/14/25 01/15/25 15:00 23:00 07:00 Intake Total 300 ml 1900 ml Output Total 350 ml 550 ml Balance -50 ml 1350 ml medications Current Medications Medications Dose Ordered Sig/Zaria Route Start Time Stop Time Status Last Admin Dose Admin Acetaminophen/ Hydrocodone Bitart 1 tab Q4HP PRN PO 01/06/25 15:00 01/14/25 21:15 1 TAB Ondansetron HCl 4 mg Q4HP PRN IV 01/06/25 15:00 01/15/25 02:56 4 MG Acetaminophen 650 mg Q6HP PRN PO 01/06/25 15:00 Nitroglycerin 0.4 mg Q5MINP PRN SL 01/06/25 16:15 Morphine Sulfate 2 mg Q30M PRN IV 01/06/25 16:15 Famotidine 20 mg Q12HR IV 01/07/25 10:00 UNV Diagnostic Test (Pha) 1 strip IQ4HR 01/07/25 08:00 Cancel Calcium Gluconate/ Sodium Chloride 50 ml @ 100 mls/hr Q30M IV 01/08/25 17:30 01/08/25 18:29 Cancel Pantoprazole Sodium 40 mg BID IV 01/10/25 10:00 01/15/25 09:09 40 MG Bumetanide 1 mg DAILY IV 01/11/25 10:00 01/15/25 09:09 1 MG Diphenhydramine HCl 50 mg Q8HR IV 01/10/25 18:00 01/15/25 06:12 50 MG Insulin Glargine 12 units DAILY@1000 SC 01/11/25 10:00 01/15/25 09:11 12 UNITS Insulin Human Lispro Q4HR SC 01/11/25 10:00 01/15/25 09:17 1 UNITS Dextrose 50 ml UD PRN IV 01/11/25 09:45 Diagnostic Test (Pha) 1 strip Q4HR 01/11/25 10:00 01/15/25 09:10 1 STRIP Throat Lozenges 1 reza Q2HPRN PRN MT 01/12/25 22:45 Sodium Chloride 1,000 ml @ 100 mls/hr Q10H IV 01/14/25 09:30 01/15/25 02:57 100 MLS/HR Amlodipine Besylate 5 mg DAILY PO 01/14/25 10:00 01/15/25 09:10 5 MG Examination: LUNGS:Normal, CVS:Normal, MSK:Normal laboratory and microbiology Laboratory Tests 01/15/25 10:22 Test 01/15/25 10:22 Range/Units Serum Glucose 131 H 74-106 mg/dL Microbiology Date/Time Source Procedure Growth Status 01/08/25 10:37 Stool Stool Culture - Final Complete 01/08/25 10:37 Stool Shiga Toxin I & II - Final Complete 01/07/25 13:18 Blood Blood Culture - Final NO GROWTH AFTER 5 DAYS OF INCUBATION. Complete 01/07/25 01:00 Nose MRSA Screen - Final Complete 01/06/25 15:14 Sputum Endotracheal Wash Gram Stain - Final Complete 01/06/25 15:14 Sputum Endotracheal Wash Respiratory Culture - Final Complete Problem List/Assessment/Plan Problem List/Assessment/Plan Acute kidney injury superimposed Chronic Kidney Disease secondary hemodynamic mediated ATN, FeNa > 2% Acute hypoxic respiratory failure, patient extubated Diabetic ketoacidosis Hypernatremia due to dehydration Hypocalcemia Hypomagnesemia Hypokalemia Anemia of chronic kidney disease Recommendations Kidney function slowly is improving Increased urine output Hyponatremia resolved Strict I&O's DC Bumex IVF half NS at 100 cc/hour Calcium phosphorus and magnesium replacement Insulin sliding scale We will continue to follow up Plan discussed with: Patient Dietary Evaluation Review Recommendations by RD: Increase Calorie Intake Comments: Nutrition Recommendation: 1) Vital AF 1.2Cal @ 25ml/hr along with Pro-stat 1 pk BID. start @ 20ml/hr, increase 10ml/hr Q4H until goal is reached. TF @ goal volume along with propofol, IV D5wNS0.45%, and Pro-stat provides 1684 kcal (100% energy needs), 75gm protein (100% protein needs), 487ml free water. 2) TPN to meet 75% estimated needs if remains NPO 3) Bryce 1 pk BID for DFU Expected Outcomes/Goals: DFU to improve To maintain/gain weight To meet at least 75% estimated needs Fu 2-3 days Interpretation of weight loss: up to 5% in 1 month Muscle Mass (Severe): Mod to Severe Depletion Protein Calorie Malnutrition: Non-Severe Is there a minimum of two crit: Yes VIVIAN GRACIA MD Jan 15, 2025 12:25
[2025-01-15] MEDS: DEXTROSE (50%) 50ML SYRG IV PRN (17:19)
--- NOTE | 2025-01-15 20:34 | DVHPNRES ---
Progress Note Date Seen: Jan 15, 2025 Resident Creating Document: NIKO IBARRA RESIDENT Medical Necessity Reason Pt with a Central, PICC or Fol: No The following are medically ne: Owens Catheter Medical Necessity Reason patient seen and examined. stabled but seem very week. He has not complaints. He was seen by the vascular surgeon today. No indication for surgery. Patient's lab today shows wbc going up. Will resume him on Aztreonam and linezolid. Repeat labs tomorrow. The discharge plan is for patient to go to an acute rehab facility for wound care prior to going home. Subjective Review of Systems Constitutional: Denies fever no chills no feeling of malaise HEENT: Denies headache, ear pain, ear discharges, conjunctivitis, nasal discharge throat pain Cardiovascular: Denies chest pain, palpitation, orthopnea, PND, or pedal edema Respiratory: Denies shortness of breath, cough cough, sputum production, hemoptysis, GI: Denies abdominal pain, nausea, vomiting, diarrhea, hematemesis, hematochezia, : Denies frequency, urgency, hematuria, Endocrine: Denies unintentional weight gain or weight loss, feeling of hot flashes, Yves: Denies easy bruising, bleeding disorders, epistaxis Musculoskeletal: Denies joint pains, muscle aches Psych: No evidence of depression, jakub, suicidal ideation Objective vital signs Vital Sign Date Time Temp Pulse Resp B/P (MAP) Pulse Ox O2 Delivery O2 Flow Rate FiO2 01/15/25 17:00 99.6 115 17 155/92 (113) 91 99.6 01/15/25 07:58 Room Air* 0 21 Total Intake and Output 01/14/25 01/14/25 01/15/25 15:00 23:00 07:00 Intake Total 300 ml 1900 ml Output Total 350 ml 550 ml Balance -50 ml 1350 ml medications Current Medications Medications Dose Ordered Sig/Zaria Route Start Time Stop Time Status Last Admin Dose Admin Ondansetron HCl 4 mg Q4HP PRN IV 01/06/25 15:00 01/15/25 02:56 4 MG Acetaminophen 650 mg Q6HP PRN PO 01/06/25 15:00 Nitroglycerin 0.4 mg Q5MINP PRN SL 01/06/25 16:15 Famotidine 20 mg Q12HR IV 01/07/25 10:00 UNV Diagnostic Test (Pha) 1 strip IQ4HR 01/07/25 08:00 Cancel Calcium Gluconate/ Sodium Chloride 50 ml @ 100 mls/hr Q30M IV 01/08/25 17:30 01/08/25 18:29 Cancel Pantoprazole Sodium 40 mg BID IV 01/10/25 10:00 01/15/25 09:09 40 MG Bumetanide 1 mg DAILY IV 01/11/25 10:00 01/15/25 09:09 1 MG Diphenhydramine HCl 50 mg Q8HR IV 01/10/25 18:00 01/15/25 14:53 50 MG Insulin Glargine 12 units DAILY@1000 SC 01/11/25 10:00 01/15/25 09:11 12 UNITS Insulin Human Lispro Q4HR SC 01/11/25 10:00 01/15/25 09:17 1 UNITS Dextrose 50 ml UD PRN IV 01/11/25 09:45 01/15/25 17:19 50 ML Diagnostic Test (Pha) 1 strip Q4HR 01/11/25 10:00 01/15/25 17:18 1 STRIP Throat Lozenges 1 reza Q2HPRN PRN MT 01/12/25 22:45 Sodium Chloride 1,000 ml @ 100 mls/hr Q10H IV 01/14/25 09:30 01/15/25 14:53 100 MLS/HR Amlodipine Besylate 5 mg DAILY PO 01/14/25 10:00 01/15/25 09:10 5 MG Examination General Appearance: Alert, Oriented X3, Cooperative, No acute distress, tired looking. HEENT: Atraumatic, PERRLA, EOMI, Mucous membrane moist/pink Respiratory: Clear to auscultation, Normal air movement Cardiovascular: Regular rate, Normal S1, Normal S2, No murmurs, no chest wall tenderness Abdominal: NO distention, no tenderness, bowel sounds present, no scars noted Extremities: No clubbing, No cyanosis, No edema, Normal pulses, No tenderness/swelling Skin: No rashes, No breakdown, No significant lesion Neuro: Normal gait, Normal speech, Strength at 5/5 X4 ext, Normal tone, Sensation intact, Cranial nerves 3-12 NL, Reflexes 2+ Psych/Mental Status: Mental status NL, Mood NL laboratory and microbiology Laboratory Tests 01/15/25 10:22 Test 01/15/25 10:22 Range/Units Serum Glucose 131 H 74-106 mg/dL Microbiology Date/Time Source Procedure Growth Status 01/08/25 10:37 Stool Stool Culture - Final Complete 01/08/25 10:37 Stool Shiga Toxin I & II - Final Complete 01/07/25 13:18 Blood Blood Culture - Final NO GROWTH AFTER 5 DAYS OF INCUBATION. Complete 01/07/25 01:00 Nose MRSA Screen - Final Complete 01/06/25 15:14 Sputum Endotracheal Wash Gram Stain - Final Complete 01/06/25 15:14 Sputum Endotracheal Wash Respiratory Culture - Final Complete Problem List/Assessment/Plan Problem List/Assessment/Plan Assessment and plan Neuro Metabolic encephalopathy in DKA Uremic encephalopathy - Treat the underlying condition likely sepsis. - see plan below Cardiovascular: AFIB on EKG Prolonged QTc interval Ventricular bigeminy - Amiodarone drip 1 time Respiratory: CXR: Bibasilar atelectasis or pneumonia. antibiotic: Meropenem and Vancomycin Gastrointestinal Gastroparesis( per father) Anemia, FOBT positive - pepcid - Consider GI consult when stable Endocrine/Metabolic: Diabetic Ketoacidosis Anion gap metabolic acidosis Hypernatremia-improving Hypermagnesemia Hyperphosphatemia Hypokalemia- corrected Severe protein calorie malnutrition, BMI 15.5 - Free water q4hrs - D5 W 1/2 NS 01/13/2025 - CMP-7 daily - Bicarb stopped 01/07/2025 stopped - diabetic diet initiated Genitourinary RADHA likely due to ATN CKD 3 - Free water q4hrs- - CMP-7 Q4hrs - Nephrology consult Hematology Acute anemia FOBT positive Thrombocytosis likely secondary to sepsis Treat the underlying infection S/P 1 unit of PRBC Infections Disease Cellulitis bilateral Diabetic foot ulcer, left foot Severe Sepsis with septic shock - wound culture pending - Blood cultures pending - Wound consult - Special Effects Makeup Artist: seen patient - Vancomycin and Meropenem - Betadine - Repeat CBC, CMP daily Eyes ( Per father) : low vision Retinal detachment Diabetic retinopathy - Recommends ophthalmology follow up outpatient IV access 01/06/2025 - Right Femoral - Right IJ - Right arm midline - Left arm peripheral Antibiotics: Zosyn and vancomycin Discontinued plan: vascular consult for chronic lower extremity wounds Nephrology: BUMEX solumedrol 60mg q8hrs; benedryl 50 mg q8hrs: Discontinued Vascular surgeon assessment for vessel disease Extubated 01/12/2025 Drips: Propofol, fentanyl: Discontinued Diet: Diabetic regular diet plan: discharge to acute rehab facility for wound care. D/C HOME tomorrow 01/16/2025 Advance planning discussed with father. He is considering DNR for him as patient is unable to care for self Goal of care discussed for 20 minutes Case and plan discussed with Dr. Lehman Plan discussed with: Patient My Orders My Orders Orders - NIKO IBARRA Procedure Category Date Status Time Transfer Orders XFER 01/15/25 Transmitted 13:31 Dietary Evaluation Review Recommendations by RD: Increase Calorie Intake Comments: Nutrition Recommendation: 1) Vital AF 1.2Cal @ 25ml/hr along with Pro-stat 1 pk BID. start @ 20ml/hr, increase 10ml/hr Q4H until goal is reached. TF @ goal volume along with propofol, IV D5wNS0.45%, and Pro-stat provides 1684 kcal (100% energy needs), 75gm protein (100% protein needs), 487ml free water. 2) TPN to meet 75% estimated needs if remains NPO 3) Bryce 1 pk BID for DFU Expected Outcomes/Goals: DFU to improve To maintain/gain weight To meet at least 75% estimated needs Fu 2-3 days Interpretation of weight loss: up to 5% in 1 month Muscle Mass (Severe): Mod to Severe Depletion Protein Calorie Malnutrition: Non-Severe Is there a minimum of two crit: Yes Date of Service: Jan 15, 2025 Billing Provider: PAM LEHMAN MD Common Visit Codes: NOT BILLABLE NIKO IBARRA Jan 15, 2025 20:34 PAM LEHMAN MD Jan 20, 2025 18:13
[2025-01-15] MEDS: LINEZOLID 600MG TABLET PO SCH (21:21)
[2025-01-15] MEDS: AZTREONAM 1GM INJ 1 GM in D5W 5% 50 ML IV SCH (21:55)
[2025-01-16 01:00] VITALS: BP 150/79; PULSE 106; RESP 18; TEMP 98; O2SAT 90
[2025-01-16 05:00] VITALS: BP 144/87; PULSE 109; RESP 20; TEMP 98; O2SAT 89
[2025-01-16 07:06] LABS: Potassium 3.5 mmol/L (3.5-5.1); Sodium 142 mmol/L (136-145)
[2025-01-16 07:07] LABS: Anion Gap 12 (5-15); Calcium 7.6 mg/dL (8.7-10.4); Carbon Dioxide 23 mmol/L (20-31); Chloride 107 mmol/L (98-107)
[2025-01-16 07:12] LABS: BUN/Creatinine Ratio 16.5 (10.0-20.0); Blood Urea Nitrogen 34 mg/dL (9-23); Glucose 169 mg/dL (74-106)
[2025-01-16 07:14] LABS: Nucleated Red Blood Cells % 0.0 %
[2025-01-16 07:16] LABS: Hematocrit 25.8 % (41.0-53.0); Hemoglobin 8.1 g/dL (13.5-17.5); Mean Corpuscular Hemoglobin 23.6 pg (28.0-32.0); Mean Corpuscular Volume 74.9 fL (80.0-100.0)
[2025-01-16 09:00] VITALS: BP 155/84; PULSE 115; RESP 18; TEMP 98.6; O2SAT 90
--- NOTE | 2025-01-16 10:56 | DVHPN2 ---
Progress Note Date Seen: Jan 16, 2025 Medical Necessity Reason Pt with a Central, PICC or Fol: No The following are medically ne: Owens Catheter Subjective Patient reports: No new complaints Other Systems: Patient seen and examined by myself today in follow-up Objective vital signs Vital Sign Date Time Temp Pulse Resp B/P (MAP) Pulse Ox O2 Delivery O2 Flow Rate FiO2 01/16/25 10:44 155/84 01/16/25 09:00 98.6 115 18 90 98.6 01/15/25 20:00 Room Air* 0 21 Total Intake and Output 01/15/25 01/15/25 01/16/25 15:00 23:00 07:00 Intake Total 400 ml Output Total 500 ml 250 ml Balance -500 ml 150 ml medications Current Medications Medications Dose Ordered Sig/Zaria Route Start Time Stop Time Status Last Admin Dose Admin Ondansetron HCl 4 mg Q4HP PRN IV 01/06/25 15:00 01/16/25 01:50 4 MG Acetaminophen 650 mg Q6HP PRN PO 01/06/25 15:00 Nitroglycerin 0.4 mg Q5MINP PRN SL 01/06/25 16:15 Famotidine 20 mg Q12HR IV 01/07/25 10:00 UNV Diagnostic Test (Pha) 1 strip IQ4HR 01/07/25 08:00 Cancel Calcium Gluconate/ Sodium Chloride 50 ml @ 100 mls/hr Q30M IV 01/08/25 17:30 01/08/25 18:29 Cancel Pantoprazole Sodium 40 mg BID IV 01/10/25 10:00 01/16/25 10:43 40 MG Bumetanide 1 mg DAILY IV 01/11/25 10:00 01/15/25 09:09 1 MG Diphenhydramine HCl 50 mg Q8HR IV 01/10/25 18:00 01/16/25 05:53 50 MG Insulin Glargine 12 units DAILY@1000 SC 01/11/25 10:00 01/15/25 09:11 12 UNITS Insulin Human Lispro Q4HR SC 01/11/25 10:00 01/15/25 09:17 1 UNITS Dextrose 50 ml UD PRN IV 01/11/25 09:45 01/16/25 06:34 50 ML Diagnostic Test (Pha) 1 strip Q4HR 01/11/25 10:00 01/16/25 06:05 1 STRIP Throat Lozenges 1 reza Q2HPRN PRN MT 01/12/25 22:45 Sodium Chloride 1,000 ml @ 100 mls/hr Q10H IV 01/14/25 09:30 01/16/25 01:46 100 MLS/HR Amlodipine Besylate 5 mg DAILY PO 01/14/25 10:00 01/16/25 10:44 5 MG Linezolid 600 mg BID PO 01/15/25 22:00 01/15/25 21:21 600 MG Aztreonam 1 gm/ Dextrose 50 ml @ 50 mls/hr Q8HR IV 01/15/25 22:00 01/16/25 05:52 50 MLS/HR Examination: LUNGS:Normal, CVS:Normal, MSK:Normal laboratory and microbiology Laboratory Tests 01/16/25 06:34 Test 01/16/25 06:34 Range/Units Serum Glucose 169 H 74-106 mg/dL Microbiology Date/Time Source Procedure Growth Status 01/08/25 10:37 Stool Stool Culture - Final Complete 01/08/25 10:37 Stool Shiga Toxin I & II - Final Complete 01/07/25 13:18 Blood Blood Culture - Final NO GROWTH AFTER 5 DAYS OF INCUBATION. Complete 01/07/25 01:00 Nose MRSA Screen - Final Complete 01/06/25 15:14 Sputum Endotracheal Wash Gram Stain - Final Complete 01/06/25 15:14 Sputum Endotracheal Wash Respiratory Culture - Final Complete Problem List/Assessment/Plan Problem List/Assessment/Plan Acute kidney injury superimposed Chronic Kidney Disease stage IIIB secondary hemodynamic mediated ATN, FeNa > 2% Acute hypoxic respiratory failure, patient extubated Diabetic ketoacidosis Hypernatremia due to dehydration Hypocalcemia Hypomagnesemia Hypokalemia Anemia of chronic kidney disease Recommendations Kidney function stabilize stage IIIB Increased urine output Hypernatremia resolved Strict I&O's DC Bumex IVF half NS at 100 cc/hour Calcium phosphorus and magnesium replacement Insulin sliding scale I will sign off this case please refer to my office two weeks after discharge for Chronic Kidney Disease follow-up I discussed my plan of care with the patient his mom at the bedside Thank you for the consult Plan discussed with: Patient Dietary Evaluation Review Recommendations by RD: Increase Calorie Intake Comments: Nutrition Recommendation: 1) Vital AF 1.2Cal @ 25ml/hr along with Pro-stat 1 pk BID. start @ 20ml/hr, increase 10ml/hr Q4H until goal is reached. TF @ goal volume along with propofol, IV D5wNS0.45%, and Pro-stat provides 1684 kcal (100% energy needs), 75gm protein (100% protein needs), 487ml free water. 2) TPN to meet 75% estimated needs if remains NPO 3) Bryce 1 pk BID for DFU Expected Outcomes/Goals: DFU to improve To maintain/gain weight To meet at least 75% estimated needs Fu 2-3 days Interpretation of weight loss: up to 5% in 1 month Muscle Mass (Severe): Mod to Severe Depletion Protein Calorie Malnutrition: Non-Severe Is there a minimum of two crit: Yes VIVIAN GRACIA MD Jan 16, 2025 10:56
--- NOTE | 2025-01-16 12:21 | DVHPNRES ---
Progress Note Date Seen: Jan 16, 2025 Resident Creating Document: NIKO IBARRA RESIDENT Medical Necessity Reason Pt with a Central, PICC or Fol: No The following are medically ne: Jones Catheter Medical Necessity Reason Patient is seen and examined today at bedside. His name complaint is he feels really tired very weak and unable to get up. And he is also has difficulties walking because of the wound under his left on his feet bilaterally. Patient also noted noted that yesterday he had low-grade fever his temperature measured around 99.9. WBC today seems to be trending upwards currently at 17.4 from 13.6. Patient has been off all and tying antibodies because he seems like he was having reaction to some medication that not aware of because patient was having swelling this during his intubation. Given that he has WBC are trending upwards plasma low-grade fever I started patient on aztreonam and linezolid yesterday. Heparin order form wound culture. Monitor patient closely. Patient is to follow with Nephrology upon discarge . Per Nephrology patient has Acute kidney injury superimposed Chronic Kidney Disease stage IIIB secondary hemodynamic mediated ATN, FeNa > 2%. Subjective Review of Systems Constitutional: Denies fever no chills feeling of malaise, low grade fever HEENT: Denies headache, ear pain, ear discharges, conjunctivitis, nasal discharge throat pain Cardiovascular: tachycardia, palpitation, orthopnea, PND, or pedal edema Respiratory: Denies shortness of breath, cough cough, sputum production, hemoptysis, GI: Denies abdominal pain, nausea, vomiting, diarrhea, hematemesis, hematochezia, : Denies frequency, urgency, hematuria; Has jones in place Endocrine: Denies unintentional weight gain or weight loss, feeling of hot flashes; loss appetite Yves: Denies easy bruising, bleeding disorders, epistaxis Musculoskeletal: weak Psych: Denies episodes of depression, jakub, suicidal ideation Objective vital signs Vital Sign Date Time Temp Pulse Resp B/P (MAP) Pulse Ox O2 Delivery O2 Flow Rate FiO2 01/16/25 11:31 155/84 01/16/25 09:00 98.6 115 18 90 98.6 01/15/25 20:00 Room Air* 0 21 Total Intake and Output 01/15/25 01/15/25 01/16/25 15:00 23:00 07:00 Intake Total 400 ml Output Total 500 ml 250 ml Balance -500 ml 150 ml medications Current Medications Medications Dose Ordered Sig/Zaria Route Start Time Stop Time Status Last Admin Dose Admin Ondansetron HCl 4 mg Q4HP PRN IV 01/06/25 15:00 01/16/25 01:50 4 MG Acetaminophen 650 mg Q6HP PRN PO 01/06/25 15:00 Nitroglycerin 0.4 mg Q5MINP PRN SL 01/06/25 16:15 Famotidine 20 mg Q12HR IV 01/07/25 10:00 UNV Diagnostic Test (Pha) 1 strip IQ4HR 01/07/25 08:00 Cancel Calcium Gluconate/ Sodium Chloride 50 ml @ 100 mls/hr Q30M IV 01/08/25 17:30 01/08/25 18:29 Cancel Pantoprazole Sodium 40 mg BID IV 01/10/25 10:00 01/16/25 10:43 40 MG Bumetanide 1 mg DAILY IV 01/11/25 10:00 01/16/25 11:31 1 MG Diphenhydramine HCl 50 mg Q8HR IV 01/10/25 18:00 01/16/25 05:53 50 MG Insulin Glargine 12 units DAILY@1000 SC 01/11/25 10:00 01/16/25 10:00 12 UNITS Insulin Human Lispro Q4HR SC 01/11/25 10:00 01/16/25 10:00 2 UNITS Dextrose 50 ml UD PRN IV 01/11/25 09:45 01/16/25 06:34 50 ML Diagnostic Test (Pha) 1 strip Q4HR 01/11/25 10:00 01/16/25 10:00 1 STRIP Throat Lozenges 1 reza Q2HPRN PRN MT 01/12/25 22:45 Sodium Chloride 1,000 ml @ 100 mls/hr Q10H IV 01/14/25 09:30 01/16/25 01:46 100 MLS/HR Amlodipine Besylate 5 mg DAILY PO 01/14/25 10:00 01/16/25 10:44 5 MG Linezolid 600 mg BID PO 01/15/25 22:00 01/15/25 21:21 600 MG Aztreonam 1 gm/ Dextrose 50 ml @ 50 mls/hr Q8HR IV 01/15/25 22:00 01/16/25 05:52 50 MLS/HR Examination General Appearance: Alert, Oriented X3, Cooperative, cachetic looking HEENT: Atraumatic, dry, lips red, poor dentition Respiratory: Clear to auscultation, Normal air movement Cardiovascular: tachycardia, Normal S1, Normal S2, No murmurs, no chest wall tenderness Abdominal: NO distention, no tenderness, bowel sounds present, no scars noted Extremities: dry skin, peeling,ulcer ab the bottms L> R Skin: Multiple breakdown, No significant lesion Neuro: bed bound Psych/Mental Status: Mental status NL, Mood NL laboratory and microbiology Laboratory Tests 01/16/25 06:34 Test 01/16/25 06:34 Range/Units Serum Glucose 169 H 74-106 mg/dL Microbiology Date/Time Source Procedure Growth Status 01/08/25 10:37 Stool Stool Culture - Final Complete 01/08/25 10:37 Stool Shiga Toxin I & II - Final Complete 01/07/25 13:18 Blood Blood Culture - Final NO GROWTH AFTER 5 DAYS OF INCUBATION. Complete 01/07/25 01:00 Nose MRSA Screen - Final Complete 01/06/25 15:14 Sputum Endotracheal Wash Gram Stain - Final Complete 01/06/25 15:14 Sputum Endotracheal Wash Respiratory Culture - Final Complete Problem List/Assessment/Plan Problem List/Assessment/Plan Assessment and plan Neuro Metabolic encephalopathy in DKA Uremic encephalopathy - Treat the underlying condition likely sepsis. - see plan below Cardiovascular: AFIB on EKG Prolonged QTc interval Ventricular bigeminy - Amiodarone drip 1 time Respiratory: CXR: Bibasilar atelectasis or pneumonia. antibiotic: Meropenem and Vancomycin Gastrointestinal Gastroparesis( per father) Anemia, FOBT positive - pepcid - Consider GI consult when stable Endocrine/Metabolic: Diabetic Ketoacidosis Anion gap metabolic acidosis Hypernatremia-improving Hypermagnesemia Hyperphosphatemia Hypokalemia- corrected Severe protein calorie malnutrition, BMI 15.5 - Free water q4hrs - D5 W 1/2 NS 01/13/2025 - CMP-7 daily - Bicarb stopped 01/07/2025 stopped - diabetic diet initiated Genitourinary RADHA likely due to ATN CKD 3 - Free water q4hrs- - CMP-7 Q4hrs - Nephrology consult Hematology Acute anemia FOBT positive Thrombocytosis likely secondary to sepsis Treat the underlying infection S/P 1 unit of PRBC Infections Disease Cellulitis bilateral Diabetic foot ulcer, left foot Severe Sepsis with septic shock - wound culture pending - Blood cultures pending - Wound consult - Packing Machine Can Feeder: seen patient - Vancomycin and Meropenem - Betadine - Repeat CBC, CMP daily Eyes ( Per father) : low vision Retinal detachment Diabetic retinopathy - Recommends ophthalmology follow up outpatient IV access 01/06/2025 - Right Femoral - Right IJ - Right arm midline - Left arm peripheral Antibiotics: Zosyn and vancomycin Discontinued plan: vascular consult for chronic lower extremity wounds Nephrology: BUMEX solumedrol 60mg q8hrs; benedryl 50 mg q8hrs: Discontinued Vascular surgeon assessment for vessel disease Extubated 01/12/2025 Drips: Propofol, fentanyl: Discontinued Diet: Diabetic regular diet plan 01/16/2026: discharge to acute rehab facility for wound care. Wound care and UA Goal of care discussed for 20 minutes Case and plan discussed with Dr. Llamas Plan discussed with: Patient My Orders My Orders Orders - NIKO IBARRA RESIDENT Procedure Category Date Status Time Transfer Orders XFER 01/15/25 Transmitted 13:31 Linezolid Tablet PHA 01/15/25 In Process (Zyvox Tablet) 22:00 Aztreonam 1gm Inj PHA 01/15/25 In Process (Azactam) 22:00 Urine Dip ED NURSING 01/16/25 Transmitted Wound Culture W/ Gs RICHARD 01/16/25 Logged 12:02 Dietary Evaluation Review Recommendations by RD: Increase Calorie Intake Comments: Nutrition Recommendation: 1) Vital AF 1.2Cal @ 25ml/hr along with Pro-stat 1 pk BID. start @ 20ml/hr, increase 10ml/hr Q4H until goal is reached. TF @ goal volume along with propofol, IV D5wNS0.45%, and Pro-stat provides 1684 kcal (100% energy needs), 75gm protein (100% protein needs), 487ml free water. 2) TPN to meet 75% estimated needs if remains NPO 3) Bryce 1 pk BID for DFU Expected Outcomes/Goals: DFU to improve To maintain/gain weight To meet at least 75% estimated needs Fu 2-3 days Interpretation of weight loss: up to 5% in 1 month Muscle Mass (Severe): Mod to Severe Depletion Protein Calorie Malnutrition: Non-Severe Is there a minimum of two crit: Yes Date of Service: Jan 16, 2025 Billing Provider: PAM LLAMAS MD Common Visit Codes: NOT BILLABLE NIKO IBARRA RESIDENT Jan 16, 2025 12:21 PAM LLAMAS MD Jan 20, 2025 18:16
[2025-01-16 13:00] VITALS: BP 153/83; PULSE 110; RESP 16; TEMP 98.2; O2SAT 92
[2025-01-16 17:00] VITALS: BP 148/85; PULSE 107; RESP 18; TEMP 98.1; O2SAT 93
[2025-01-16] MEDS: LINEZOLID 600MG TABLET PO SCH (18:43)
[2025-01-16 21:00] VITALS: BP 147/84; PULSE 108; RESP 20; TEMP 98.1; O2SAT 90
[2025-01-17] MEDS: AZTREONAM 1GM INJ 1 GM in D5W 5% 50 ML IV SCH (00:16)
[2025-01-17 01:00] VITALS: BP 143/67; PULSE 110; RESP 20; TEMP 98.1; O2SAT 95
[2025-01-17 05:00] VITALS: BP 153/69; PULSE 111; RESP 20; TEMP 98.1; O2SAT 90
[2025-01-17 09:00] VITALS: BP 153/91; PULSE 105; RESP 16; TEMP 98.1; O2SAT 91
[2025-01-17 09:14] LABS: Hemoglobin 8.3 g/dL (13.5-17.5)
[2025-01-17 09:17] LABS: Hematocrit 26.1 % (41.0-53.0); Mean Corpuscular Hemoglobin 23.5 pg (28.0-32.0); Mean Corpuscular Volume 74.1 fL (80.0-100.0); Nucleated Red Blood Cells % 0.0 %
[2025-01-17 09:22] LABS: Chloride 106 mmol/L (98-107); Sodium 140 mmol/L (136-145)
[2025-01-17 09:23] LABS: Anion Gap 11 (5-15); Carbon Dioxide 23 mmol/L (20-31)
[2025-01-17 09:28] LABS: BUN/Creatinine Ratio 14.3 (10.0-20.0)
[2025-01-17 09:29] LABS: Blood Urea Nitrogen 32 mg/dL (9-23); Glucose 150 mg/dL (74-106); Potassium 2.9 mmol/L (3.5-5.1)
[2025-01-17 09:30] LABS: Calcium 7.7 mg/dL (8.7-10.4)
--- NOTE | 2025-01-17 11:51 | DVHPNRES ---
Progress Note Date Seen: Jan 17, 2025 Resident Creating Document: NIKO IBARRA RESIDENT Medical Necessity Reason Pt with a Central, PICC or Fol: No The following are medically ne: Owens Catheter Medical Necessity Reason History of presenting illness The patient is a 44-year-old male with past medical history of diabetes mellitus who presented to [facility] ED for evaluation of altered level of consciousness. As reported by EMS, patient's blood sugar 2 two the 3rd and was started on IV fluids proximally 400 cc in the field EN route to our facility ED. patient's condition progressively get worse hypoxia, generalized weakness, increased work of breathing, and subsequently intubated. Patient was seen and evaluated in the ED, laboratory data shows WBC 23.2 hemoglobin 8.4, hematocrit 34.6, platelets 931, sodium 155, potassium 4.7, BUN 28, creatinine 2.63, glucose 931, anion gap 36.00, calcium 8.3, lipase 52, troponin 7, phosphorus 9.4, magnesium 3.6, alkaline phos 388, lactic acid 1.9, blood pressure 101/58, heart rate 94, temperature 94.9 F, O2 saturation 99% on ventilator. Chest x-ray show no acute cardiopulmonary disease. Patient was started on IV antibiotic regimen Zosyn, on insulin drip, please see medication orders section in the computer. On my assessment, patient remains fully intubated, no diaphoresis, no diarrhea, no vomiting, no fever, no chills. Patient was admitted for further evaluation and medical management. Hospital course Patient is 44-year-old man with type 1 diabetes on insulin was brought to the ED 01/06/2025 via EMS in a comatose state. According to the patient's father who was at the bedside (01/07/2025), patient does have insulin and all supplies (glucometer, strips) to check his blood glucose; however, patient has been very noncompliant. Patient lives alone in a trailer and communicates with his father regularly. According to the father, the last time he heard from his son was 01/02/2025. The father went to visit the son and that was when he found him unresponsive. He called 911 and patient brought to the ED. Of note patient was managed here in 11/2024 for DKA. In the ED, patient was intubated and sedated with midazolam and propofol; Levophed add for blood pressure support via right femoral central line inserted on 01/06/2025. Patient also had a midline placed on the right upper arm and left peripheral line for other medications. Initial blood work showed wbc 23.2, lactic acid: 1.9, serum sugar of 931, Na: 170, anion gap of 36, and creatinine,2.63. ABG ph: 6.983, Hco3:7.4, po2: 129. He received fluids (LR), Insulin drip until his blood glucose to 250 and for antibiotic coverage Zosyn and vancomycin. Bicarbonate given for the acidosis. At blood glucose 250, fluid was changed to DW5 in 1/2 NS and some times free water. Bicarb was stopped on 01/07/2025. Patient was monitored blood glucose, infection and electrolytes. On the 01/07/2025, whilst patient remained intubated, his lips appeared swollen. No know allergies reported. However, a deeper dive into his chart reveal that he has allergies to penicillin. Zosyn was discontinued, Methylprednisolone sodium succinate (solu medrol) given and meropenem started. Patient was followed closely, labs daily and electrolytes corrected per protocol. Nephrology also following for the management of the kidney functions and hypernatremia. By the 01/10/2025, patient started showing signs of improvement. He was wean off sedation and extubated on 01/12/2025. Transferred to floor on Telemetry. Patient being followed closely. His glucose keeps fluctuating and he WBC is trending up. Antibiotics was discontinue 01/12/2025 upon extubation, because it was not clear if his WBC was steroid induced or not. Now that the wbc keeps trending upward without steroid, patient was stared on linezolid and aztreonam. Even with this antibiotics, WBC is still trending upward and he has low grade fever. Blood, urine, and sputum and wound sample sent for culture. Infectious disease consulted for further evaluation. Of note, patient had bilateral diabetic foot ulcer L>R, dried, wrinkled. MRI of his legs showed mild diffuse subcutaneous soft-tissue edema; possibly cellulitis.No bone marrow edema is present to suggest fracture or acute osteomyelitis. CT head showed no acute territorial infarct, intracranial hemorrhage, or mass effect. CXR showed Patchy bilateral airspace disease, [id number], slightly increased. lower extremity artery showed no hemodynamically significant stenosis based on peak systolic velocity criteria.Vascular surgeon seen the patient for the chronic lower extremity ulcers, but no intervention at this time. Patient has poor appetite and not eating. Subjective Review of Systems Constitutional: low grade fever, feeling week. HEENT: Denies headache, ear pain, ear discharges, conjunctivitis, nasal discharge throat pain Cardiovascular: Denies chest pain, palpitation, orthopnea, PND, or pedal edema Respiratory: Denies shortness of breath, has mild cough sputum production, hemoptysis, GI: Denies abdominal pain, nausea, No vomiting, diarrhea, hematemesis, hematochezia, : Denies frequency, urgency, hematuria, Endocrine: Denies unintentional weight gain or weight loss, feeling of hot flashes, Yves: Denies easy bruising, bleeding disorders, epistaxis Musculoskeletal: Denies joint pains, muscle aches Psych: denies depression, jakub, suicidal ideation Objective vital signs Vital Sign Date Time Temp Pulse Resp B/P (MAP) Pulse Ox O2 Delivery O2 Flow Rate FiO2 01/17/25 10:58 153/91 01/17/25 09:00 98.1 105 16 91 98.1 01/17/25 08:10 Room Air* 0 21 Total Intake and Output 01/16/25 01/16/25 01/17/25 15:00 23:00 07:00 Intake Total 120 ml 100 ml Output Total 350 ml 300 ml Balance -230 ml -200 ml medications Current Medications Medications Dose Ordered Sig/Zaria Route Start Time Stop Time Status Last Admin Dose Admin Ondansetron HCl 4 mg Q4HP PRN IV 01/06/25 15:00 01/16/25 01:50 4 MG Acetaminophen 650 mg Q6HP PRN PO 01/06/25 15:00 Nitroglycerin 0.4 mg Q5MINP PRN SL 01/06/25 16:15 Famotidine 20 mg Q12HR IV 01/07/25 10:00 UNV Diagnostic Test (Pha) 1 strip IQ4HR 01/07/25 08:00 Cancel Calcium Gluconate/ Sodium Chloride 50 ml @ 100 mls/hr Q30M IV 01/08/25 17:30 01/08/25 18:29 Cancel Pantoprazole Sodium 40 mg BID IV 01/10/25 10:00 01/17/25 10:36 40 MG Bumetanide 1 mg DAILY IV 01/11/25 10:00 01/17/25 10:36 1 MG Diphenhydramine HCl 50 mg Q8HR IV 01/10/25 18:00 01/17/25 05:54 50 MG Insulin Glargine 12 units DAILY@1000 SC 01/11/25 10:00 01/17/25 10:55 12 UNITS Insulin Human Lispro Q4HR SC 01/11/25 10:00 01/17/25 06:09 1 UNITS Dextrose 50 ml UD PRN IV 01/11/25 09:45 01/16/25 06:34 50 ML Diagnostic Test (Pha) 1 strip Q4HR 01/11/25 10:00 01/17/25 10:37 1 STRIP Throat Lozenges 1 reza Q2HPRN PRN MT 01/12/25 22:45 Sodium Chloride 1,000 ml @ 100 mls/hr Q10H IV 01/14/25 09:30 01/17/25 08:03 100 MLS/HR Amlodipine Besylate 5 mg DAILY PO 01/14/25 10:00 01/17/25 10:58 5 MG Linezolid 600 mg BID PO 01/16/25 17:45 01/17/25 10:52 600 MG Aztreonam 1 gm/ Dextrose 50 ml @ 50 mls/hr Q8HR IV 01/17/25 00:00 01/17/25 08:03 50 MLS/HR Examination General Appearance: Alert, Oriented X3, Cooperative, weak, cachetic looking, loss of appetite HEENT: Atraumatic, dry, lips red, poor dentition Respiratory: Clear to auscultation, Normal air movement Cardiovascular: tachycardia, Normal S1, Normal S2, No murmurs, no chest wall tenderness Abdominal: NO distention, no tenderness, bowel sounds present, no scars noted Extremities: dry skin, peeling, ulcers plantar surface of the foot L> R Skin: Multiple breakdown, No significant lesion Neuro: bed bound Psych/Mental Status: Mental status NL, Mood NL laboratory and microbiology Laboratory Tests 01/17/25 08:51 Test 01/17/25 08:51 Range/Units Serum Glucose 150 H 74-106 mg/dL Microbiology Date/Time Source Procedure Growth Status 01/08/25 10:37 Stool Stool Culture - Final Complete 01/08/25 10:37 Stool Shiga Toxin I & II - Final Complete 01/07/25 13:18 Blood Blood Culture - Final NO GROWTH AFTER 5 DAYS OF INCUBATION. Complete 01/07/25 01:00 Nose MRSA Screen - Final Complete 01/06/25 15:14 Sputum Endotracheal Wash Gram Stain - Final Complete 01/06/25 15:14 Sputum Endotracheal Wash Respiratory Culture - Final Complete Problem List/Assessment/Plan Problem List/Assessment/Plan Assessment and plan Neuro Metabolic encephalopathy in DKA Uremic encephalopathy - Treat the underlying condition likely sepsis. - see plan below Cardiovascular: AFIB on EKG Prolonged QTc interval Ventricular bigeminy - Amiodarone drip 1 time Respiratory: CXR: Bibasilar atelectasis or pneumonia. antibiotic: Meropenem and Vancomycin Vancomycin stopped due to reduced kidney function Meropenem stopped 01/12/2022 Gastrointestinal Gastroparesis( per father) Anemia, FOBT positive - pepcid - Consider GI consult when stable Endocrine/Metabolic: Diabetic Ketoacidosis Anion gap metabolic acidosis Hypernatremia-improving Hypermagnesemia Hyperphosphatemia Hypokalemia- corrected Severe protein calorie malnutrition, BMI 15.5 - Free water q4hrs stopped - D5 W 1/ NS 01/13/2025 - CMP-7 daily stop, bmp daily - Bicarb stopped 01/07/2025 stopped - diabetic diet initiated 01/12/2025 - ensure, Nutritional consult Genitourinary RADHA likely due to ATN CKD 3 - Free water q4hrs- - CMP-7 Q4hrs - Nephrology consult Hematology Acute anemia FOBT positive Thrombocytosis likely secondary to sepsis Treat the underlying infection S/P 1 unit of PRBC Infections Disease Cellulitis bilateral Diabetic foot ulcer, left foot Severe Sepsis with septic shock Worsening WBC whilst on antibiotis, ID consult 01/17/2025 - wound culture pending - Blood cultures pending - Wound consult - Tissue Recovery Technician: seen patient - Aztreonam and linezolid - Betadine - Repeat CBC, CMP daily Eyes ( Per father) : low vision Retinal detachment Diabetic retinopathy - Recommends ophthalmology follow up outpatient IV access 01/06/2025 - Right Femoral - Right IJ - Right arm midline - Left arm peripheral Antibiotics: Zosyn and vancomycin Discontinued vascular Surgeon seen patient: No intervention at this time. Nephrology: Acute kidney injury superimposed Chronic Kidney Disease stage IIIB secondary hemodynamic mediated ATN, FeNa > 2%; signed off 01/16/2025 solumedrol 60mg q8hrs; benedryl 50 mg q8hrs: Discontinued Extubated 01/12/2025 Drips: Propofol, fentanyl: Discontinued 01/12/2025 Diet: Diabetic regular diet plan 01/17/2025 1. ID consult for antibiotic management 2. Poor appetite, give ensure 3. Cement Block Maker consult 4. SNF for wound care and PT upon discharge 5. Understanding of his diabetic and medical compliance Goal of care discussed for 20 minutes Case and plan discussed with Dr. Lehman Plan discussed with: Patient, Other My Orders My Orders Orders - NIKO IBARRA RESIDENT Procedure Category Date Status Time Wound Culture W/ Gs RICHARD 01/16/25 In Process 12:02 Urinalysis LAB 01/16/25 Logged 12:15 Blood Culture RICHARD 01/16/25 In Process 17:40 Urine Bacterial RICHARD 01/16/25 Logged Culture 17:40 Sputum Induction RT 01/16/25 Logged 17:40 Respiratory Culture RICHARD 01/16/25 Logged W/ Gs 17:40 Linezolid Tablet PHA 01/16/25 In Process (Zyvox Tablet) 17:45 Aztreonam 1gm Inj PHA 01/17/25 In Process (Azactam) 00:00 Insert Midline ORDERS 01/17/25 Transmitted 07:45 Potassium Chloride PHA 01/17/25 Logged (Potassium Chloride). 11:45 * Deliverer Merchandise CONS 01/17/25 Transmitted Consult 11:42 Dietary Evaluation Review Recommendations by RD: Increase Calorie Intake Comments: Nutrition Recommendation: 1) Vital AF 1.2Cal @ 25ml/hr along with Pro-stat 1 pk BID. start @ 20ml/hr, increase 10ml/hr Q4H until goal is reached. TF @ goal volume along with propofol, IV D5wNS0.45%, and Pro-stat provides 1684 kcal (100% energy needs), 75gm protein (100% protein needs), 487ml free water. 2) TPN to meet 75% estimated needs if remains NPO 3) Bryce 1 pk BID for DFU Expected Outcomes/Goals: DFU to improve To maintain/gain weight To meet at least 75% estimated needs Fu 2-3 days Interpretation of weight loss: up to 5% in 1 month Muscle Mass (Severe): Mod to Severe Depletion Protein Calorie Malnutrition: Non-Severe Is there a minimum of two crit: Yes Date of Service: Jan 17, 2025 Billing Provider: PAM LEHMAN MD Common Visit Codes: NOT BILLABLE STACEYNIKO RESIDENT Jan 17, 2025 11:51 APM LEHMAN MD Feb 08, 2025 14:48
[2025-01-17 13:00] VITALS: BP 169/89; PULSE 117; RESP 16; TEMP 98.8; O2SAT 90
[2025-01-17] MEDS: POTASSIUM CHLORIDE 60 MEQ, LIDOCAINE 1% (LOCAL ANESTH.) 6 ML in SODIUM CHL 0.9% 500 ML IV ONE (14:46)
--- NOTE | 2025-01-17 15:03 | DVHCONRES ---
Date Seen: Jan 17, 2025 Resident Creating Document: LORETO REAL RESIDENT Referring Physician Ike Reason for Consultation diabetic foot infection History of Present Illness This is a 44-year-old male with past medical history of type 1 diabetes mellitus which uses Lantus 25 units at noon and 15 units at bedside. The patient presented to the ED with altered level of consciousness. Upon admission blood glucose was over 900 with an anion gap of 40, ABG showed a pH of 6.9 a bicarbonate that was significantly low undetectable. Patient was diagnosed with DKA, started fluids, insulin drip. Patient also started having respiratory distress due to severe respiratory alkalosis/tachypnea and patient was subsequently intubated. Initial WBC was 23.2. Initial chest x-ray was grossly unremarkable without any evidence of clear consolidations. Patient was started on IV antibiotics vancomycin and Zosyn but patient later started developing significant mucosal swelling of the lips. Patient resulted to have penicillin allergy reason why Zosyn was stopped. Patient was also developing RADHA on CKD for which later on vancomycin was suspended as well. Patient is currently on linezolid 600 mg p.o. b.i.d. and aztreonam IV. Interrogating the patient, the patient states that the wounds on bilateral foot has been going on for years and that he has not had any trauma and has not noticed any new ulcers. Upon my exa mination, the patient is alert and oriented in person, place and time but looks malnourished and does not take care of himself. Bilateral lower extremity full of scales and dry skin. Bilateral plantar aspect of both food has chronic ulcers. There is a necrotic ulcer/callus in the plantar aspect of the right foot as well as other ulcers that looks more fresh. We took wound culture samples from both foots. will wait for wound cultures. Past Medical History Type 1 diabetes mellitus Past Surgical History Denies Family History: Alzheimer's disease Grandparent Arthritis G8 MOTHER Diabetes mellitus FH: kidney disease G8 FATHER Hypertension G8 MOTHER G8 FATHER Family History Noncontributory Social History Patient denies alcohol intake but does report you doing marijuana and smoking cigarettes. Denies any other drugs. Allergies: Coded Allergies: Penicillins (Verified Adverse Reaction, Severe, ANAPHYLAXIS , 01/08/25) Piperacillin (Verified Adverse Reaction, Severe, ANAPHYLAXIS , 01/08/25) Tazobactam (Verified Adverse Reaction, Severe, ANAPHYLAXIS , 01/08/25) Home Meds Active Scripts Metoclopramide Hcl (Reglan) 5 Mg Tab, 5 MG PO TID for 14 Days, #42 TAB Prov:NGA GARCIA RESIDENT 12/06/24 Pantoprazole Sodium Sesquihydr (Pantoprazole Sodium) 40 Mg Tab, 40 MG PO DAILY@0600 for 30 Days, #30 TAB Prov:NGA GARCIA 12/06/24 Current Medications Current Medications Medications (Trade) Dose Ordered Sig/Zaria Route PRN Reason Start Time Stop Time Status Last Admin Linezolid (Zyvox Tablet) 600 mg BID PO 01/16/25 17:45 01/17/25 10:52 Aztreonam 1 gm/ Dextrose 50 ml @ 50 mls/hr Q8HR IV 01/17/25 00:00 01/17/25 08:03 Review of Systems ROS Constitutional: Denies weight loss, fever and chills. HEENT: Denies changes in vision and hearing. Respiratory: Denies shortness of breath and cough Cardiovascular: Denies chest discomfort or palpitations GI: Denies abdominal pain, nausea, vomiting and diarrhea. : Denies dysuria and urinary frequency. Musculoskeletal: Denies myalgias and joint pain Skin: Denies rash and pruritus. Neurological: Denies dizziness, headache, vision or hearing problems Vital Signs Vital Signs Date Time Temp Pulse Resp B/P (MAP) Pulse Ox O2 Delivery O2 Flow Rate FiO2 01/17/25 13:00 98.8 117 16 169/89 (115) 90 98.8 01/17/25 08:10 Room Air* 0 21 Physical Exam Physical Examination General: Patient alert and oriented in person, place and time. Patient following commands. HEENT: Normocephalic, atraumatic, moist mucous membranes Respiratory/pulmonary: Clear lungs bilaterally, no associated crackles or wheezes. Cardiovascular: Normal heart sounds S1 and S2 with no associated murmurs Abdomen: Abdomen nondistended, there is no pain to palpation in any of the abdominal quadrants, no palpable masses. Extremities: Bilateral lower extremity has significant scales and dry skin. Both food have chronic ulcers. Right plantar aspect of the foot has a necrotic tissue and a smaller some what fresh ulcer. Left foot has also chronic ulcers as well with a another fresh ulcer at the level of the calcaneus. Peripheral Pulses: There are strong dorsalis pedis pulses and posterior tibialis pulses bilaterally Skin: No rashes or pruritus, there is no sacral edema present at this time. Neurological: Intact cranial nerves with no focal neurologic deficits Labs/Diagnostic Data Labs Test 01/17/25 10:16 01/17/25 08:51 01/16/25 10:35 01/13/25 03:06 Range/Units POC Glucose 148 H 70-106 mg/dl White Blood Count 18.6 H 4.4-10.8 10^3/uL Red Blood Count 3.53 L 4.5-5.90 10^6/uL Hemoglobin 8.3 L 13.5-17.5 g/dL Hematocrit 26.1 L 41.0-53.0 % Mean Corpuscular Volume 74.1 L 80.0-100.0 fL Mean Corpuscular Hemoglobin 23.5 L 28.0-32.0 pg Mean Corpuscular Hemoglobin Concent 31.8 L 32.0-36.0 g/dL Red Cell Distribution Width 18.8 H 11.8-14.3 % Platelet Count 431 140-450 10^3/uL Mean Platelet Volume 6.7 L 6.9-10.8 fL Neutrophils (%) (Auto) 81.5 H 37.0-80.0 % Lymphocytes (%) (Auto) 10.0 10.0-50.0 % Monocytes (%) (Auto) 4.3 0.0-12.0 % Eosinophils (%) (Auto) 3.3 0.0-7.0 % Basophils (%) (Auto) 0.9 0.0-2.0 % Neutrophils # (Auto) 15.2 H 1.6-8.6 10 ^3/uL Lymphocytes # (Auto) 1.9 0.4-5.4 10 ^3/uL Monocytes # (Auto) 0.8 0-1.3 10 ^3/uL Eosinophils # (Auto) 0.6 0-0.8 10 ^3/uL Basophils # (Auto) 0.2 0-0.2 10 ^3/uL Nucleated Red Blood Cells 0.0 % Sodium Level 140 136-145 mmol/L Potassium Level 2.9 L 3.5-5.1 mmol/L Chloride Level 106 98-107 mmol/L Carbon Dioxide Level 23 20-31 mmol/L Anion Gap 11 5-15 Blood Urea Nitrogen 32 H 9-23 mg/dL Creatinine 2.24 H 0.700-1.30 mg/dL Glomerular Filtration Rate Calc 36 >90 mL/min BUN/Creatinine Ratio 14.3 10.0-20.0 Serum Glucose 150 H 74-106 mg/dL Calcium Level 7.7 L 8.7-10.4 mg/dL Lactic Acid Level 0.6 0.4-2.0 mmol/L Magnesium Level 2.3 1.6-2.6 mg/dL Test 01/12/25 10:10 01/12/25 06:25 01/12/25 03:00 01/11/25 02:11 Range/Units Blood Gas Specimen Type Arterial Blood Gas Sample Site Left radial Blood Gas Patient Temperature 37.0 Arterial Blood Date Drawn [id number] Arterial Blood pH 7.400 7.350-7.450 Arterial Blood Partial Pressure CO2 40.3 35.0-48.0 mmHg Arterial Blood Partial Pressure O2 92.1 83.0-108.0 mmHg Arterial Blood HCO3 24.4 21.0-28.0 mmol/L Arterial Blood Oxygen Saturation 96.6 94.0-98.0 % Arterial Blood Base Excess -0.3 -2.0-3.0 mmol/L Arterial Blood Oxyhemoglobin 96.1 94.0-98.0 % Arterial Blood Carboxyhemoglobin 0.2 L 0.5-1.5 % Arterial Blood Methemoglobin 0.3 0.0-1.5 % Kyle Test Modified Blood Gas Total Hemoglobin 10.00 L 13.5-17.5 g/dL Blood Gas Modality Vent - cpap FiO2 % 30.0 Blood Gas Pressure Support 8 Blood Gas PEEP or CPAP 5.0 Blood Gas Set Respiration Rate 14.0 Blood Gas Tidal Volume 450.0 Total Bilirubin < 0.2 L 0.2-1.0 mg/dL Aspartate Amino Transferase (AST) < 8 <34 U/L Alanine Aminotransferase (ALT) 15 7-40 U/L Alkaline Phosphatase 216 H 46-116 U/L Total Protein 5.4 L 5.7-8.2 g/dL Albumin 2.8 L 3.2-4.8 g/dL Phosphorus Level 3.7 2.4-5.1 mg/dL Test 01/10/25 11:50 01/10/25 06:25 01/10/25 03:20 01/09/25 03:00 Range/Units Urine Color Colorless Yellow Urine Clarity Clear Clear Urine pH 5.5 5.0-9.0 Urine Specific [place] 1.009 1.001-1.035 Urine Protein 1+ H Negative Urine Ketones Negative Negative Urine Blood 2+ H Negative /uL Urine Nitrite Negative Negative Urine Bilirubin Negative Negative Urine Urobilinogen Normal Negative mg/dL Urine Leukocyte Esterase Negative Negative /uL Urine RBC 35 0 - 3 /hpf Urine Microscopic WBC 1 0-3 /HPF Urine Squamous Epithelial Cells Few <5 /hpf Urine Bacteria Few H None Seen /hpf Urine Creatinine 26.27 L 30.0-125.0 mg/dL Urine Protein/Creatinine Ratio 7.12 Urine Sodium 79 40-220 mmol/L Urine Glucose 1+ H Normal mg/dL Urine Total Protein 187.1 H 1-14 mg/dL Blood Gas Critical Value Read Back Yes Blood Gas Notified Whom janice Duarte md Blood Gas Notified Time [id number] Blood Gas Notified By Merly robles i. Random Vancomycin Level 17.9 H 5-10 ug/mL Hemoglobin A1c 8.9 H <5.7 % A1C Triglycerides Level 222 H < 150 mg/dL Parathyroid Hormone (Intact) 264.7 H 18.4-80.1 pg/mL Test 01/08/25 18:27 01/08/25 10:37 01/06/25 23:08 01/06/25 16:10 Range/Units Urine Osmolality 300 mOsm/kg Stool Occult Blood Positive Negative Stool Occult Blood Sample #3 Negative Stool for White Cells Moderate Specimen Drawn By Urine Hyaline Casts Mod 0 - 2 /lpf Urine Opiates Screen Neg NEGATIVE Urine Fentanyl Screen Neg NEGATIVE Urine Barbiturates Screen Neg NEGATIVE Urine Phencyclidine Screen Neg NEGATIVE Urine Amphetamines Screen Neg NEGATIVE Urine Benzodiazepines Screen Neg NEGATIVE Urine Cocaine Screen Neg NEGATIVE Urine Cannabinoids Screen Pos NEGATIVE Test 01/06/25 15:00 01/06/25 13:12 Range/Units Differential Total Cells Counted 100.0 100 Neutrophils % (Manual) 89 H 37.0-80.0 Band Neutrophils % (Manual) 4 Lymphocytes % (Manual) 3 L 10.0-50.0 Monocytes % (Manual) 4 0-12 Eosinophils % (Manual) 0 0-7 Basophils % (Manual) 0 0.0-2.0 Metamyelocytes % (manual) 0 Myelocytes % (Manual) 0 Promyelocytes % (Manual) 0 Blast Cells % (Manual) 0 Reactive Lymphocytes 0 Platelet Estimate Markedly increased Large Platelets Hypochromasia (manual) Marked Anisocytosis (manual) Slight Troponin I High Sensitivity 15 </=54 ng/L Serum Osmolality 420 H 278-298 mOsm/kg Creatine Kinase 151 46-171 U/L Lipase 52 12-53 U/L Beta-Hydroxybutyric Acid > 4.500 H < 0.4 mmol/L Microbiology Date/Time Source Procedure Growth Status 01/08/25 10:37 Stool Stool Culture - Final Complete 01/08/25 10:37 Stool Shiga Toxin I & II - Final Complete 01/07/25 13:18 Blood Blood Culture - Final NO GROWTH AFTER 5 DAYS OF INCUBATION. Complete 01/07/25 01:00 Nose MRSA Screen - Final Complete 01/06/25 15:14 Sputum Endotracheal Wash Gram Stain - Final Complete 01/06/25 15:14 Sputum Endotracheal Wash Respiratory Culture - Final Complete Assessment Assessment/plan Sepsis likely due to bilateral foot cellulitis Acute on chronic bilateral foot cellulitis Metabolic encephalopathy, resolved Uremic encephalopathy, resolved Severe DKA, resolved RADHA on CKD stage IIIA Plan -left foot MRI showed mild diffuse soft tissue edema with possible cellulitis but no bone marrow edema to suggest osteomyelitis. -right foot MRI showed same findings than left foot. -patient was initially on IV vancomycin and Zosyn but Zosyn was stopped due to mucosal edema at the lips. Vancomycin was stopped as well due to RADHA -patient was placed on IV aztreonam and p.o. linezolid 600 mg b.i.d. po -ordered wound cultures from bilateral foot ulcers -Start metronidazole 500mg po TID for anaerobic coverage Goals of care discussed with the patient at bedside for >35min, FULL CODE Pplan discussed with Dr. Roland -------- Add endum Dr. Lizzy Roland Patient is a 44 year old with a past medical history of type 1 diabetes who presents with blood sugars of 940, altered mental status . was started on insulin drip and monitored in ICU . having respiratory distress and respiratory alkalosis . chest xray was unremarkable patient was started empirically on vancomycin and Zosyn . later developed swelling of the lips and out of concern of allergy Zosyn was stopped and switched to Aztreonam and vancomycin was stopped due to acute kidney injury and was switched to linezolid . patient has chronic bilateral foot wounds with no new ulcers , malnourished . both feet ulcers are on the planar surface with a necrotic planar base, on the right foot it looks newer with mild drainage. Currently tolerating antibiotics whitecount is 18.6 , creatinine is 2.24 and patient is on minimal vent and no requiring any presser support . microbiology cultures and respiratory cultures are negative . foot wound was swabbed and is growing MSSA and enterococcus facialis. unclear sensitivities . Plan : continues empiric coverage - add flagyl to account for loss of anaerobic coverage of necrotic ulcer - defer DKA management to primary care team - defer management of vent support to keep O2 sats above 95% to device processing engineer team - f/u on pending blood cultures Agree with Plan , assessment , subjective , objective , and other findings written above by Dr. RAMSEY Plan discussed with: Patient LORETO REAL RESIDENT Jan 17, 2025 15:02 LIZZY ROLAND MD Jan 29, 2025 22:41
[2025-01-17 17:00] VITALS: BP 137/80; PULSE 110; RESP 17; TEMP 98.1; O2SAT 93
[2025-01-17] MEDS: Ensure HIGH Protein Chocolate 8oz Bottle PO SCH (17:52)
[2025-01-17 21:00] VITALS: BP 142/87; PULSE 108; RESP 17; TEMP 97.7; O2SAT 92
[2025-01-17] MEDS: metroNIDAZOLE 500 MG TAB PO SCH (22:00)
[2025-01-18] VITALS (7 sets, daily range): BP systolic 143–167; BP diastolic 89–99; PULSE 108–128; RESP 17–20; TEMP 97–98.5; O2SAT 93–98
[2025-01-18 12:32] LABS: Hemoglobin 8.0 g/dL (13.5-17.5); Nucleated Red Blood Cells % 0.0 %
[2025-01-18 12:33] LABS: Hematocrit 25.6 % (41.0-53.0); Mean Corpuscular Hemoglobin 23.2 pg (28.0-32.0); Mean Corpuscular Volume 74.4 fL (80.0-100.0)
[2025-01-18 12:40] LABS: Anion Gap 14 (5-15); BUN/Creatinine Ratio 13.1 (10.0-20.0); Potassium 3.9 mmol/L (3.5-5.1); Sodium 139 mmol/L (136-145); Total Protein 5.8 g/dL (5.7-8.2)
[2025-01-18 12:42] LABS: Alanine Aminotransferase < 9 U/L (7-40); Albumin 2.8 g/dL (3.2-4.8); Alkaline Phosphatase 197 U/L (46-116); Bilirubin, Total 0.2 mg/dL (0.2-1.0); Blood Urea Nitrogen 32 mg/dL (9-23); Calcium 7.6 mg/dL (8.7-10.4); Carbon Dioxide 18 mmol/L (20-31); Chloride 107 mmol/L (98-107); Glucose 206 mg/dL (74-106)
--- NOTE | 2025-01-18 22:56 | DVHPN2 ---
Progress Note - Dictate Date Seen: Jan 18, 2025 Medical Necessity Reason Pt with a Central, PICC or Fol: No The following are medically ne: Jones Catheter Reason for jones catheter: Strict I&O Subjective Patient seen and examined at bedside. Breathing comfortably on room air. Overnight events reviewed. vital signs Vital Sign Date Time Temp Pulse Resp B/P (MAP) Pulse Ox O2 Delivery O2 Flow Rate FiO2 01/18/25 20:00 118 01/18/25 20:00 Room Air* 3 N/A Nasal Cannula* 01/18/25 17:00 97.0 17 150/93 (112) 97 97.0 Total Intake and Output 01/17/25 01/17/25 01/18/25 15:00 23:00 07:00 Intake Total 0 ml 0 ml 837 ml Output Total 350 ml 250 ml Balance 0 ml -350 ml 587 ml medications Current Medications Medications Dose Ordered Sig/Zaria Route Start Time Stop Time Status Last Admin Dose Admin Ondansetron HCl 4 mg Q4HP PRN IV 01/06/25 15:00 01/17/25 18:27 4 MG Acetaminophen 650 mg Q6HP PRN PO 01/06/25 15:00 Nitroglycerin 0.4 mg Q5MINP PRN SL 01/06/25 16:15 Famotidine 20 mg Q12HR IV 01/07/25 10:00 UNV Diagnostic Test (Pha) 1 strip IQ4HR 01/07/25 08:00 Cancel Calcium Gluconate/ Sodium Chloride 50 ml @ 100 mls/hr Q30M IV 01/08/25 17:30 01/08/25 18:29 Cancel Pantoprazole Sodium 40 mg BID IV 01/10/25 10:00 01/18/25 21:17 40 MG Diphenhydramine HCl 50 mg Q8HR IV 01/10/25 18:00 01/18/25 21:16 50 MG Insulin Glargine 12 units DAILY@1000 SC 01/11/25 10:00 01/17/25 10:55 12 UNITS Insulin Human Lispro Q4HR SC 01/11/25 10:00 01/18/25 21:20 1 UNITS Dextrose 50 ml UD PRN IV 01/11/25 09:45 01/16/25 06:34 50 ML Diagnostic Test (Pha) 1 strip Q4HR 01/11/25 10:00 01/18/25 21:21 1 STRIP Throat Lozenges 1 reza Q2HPRN PRN MT 01/12/25 22:45 Sodium Chloride 1,000 ml @ 100 mls/hr Q10H IV 01/14/25 09:30 01/18/25 13:12 100 MLS/HR Amlodipine Besylate 5 mg DAILY PO 01/14/25 10:00 01/18/25 10:07 5 MG Linezolid 600 mg BID PO 01/16/25 17:45 01/18/25 21:16 600 MG Aztreonam 1 gm/ Dextrose 50 ml @ 50 mls/hr Q8HR IV 01/17/25 00:00 01/18/25 21:21 50 MLS/HR Enteral Nutritional Formula 240 ml TIDWM PO 01/17/25 18:00 01/18/25 17:42 240 ML Metronidazole 500 mg Q8HR PO 01/17/25 22:00 01/18/25 21:16 500 MG objective Gen.: Patient lying in bed in no apparent distress. Breathing on room air. Head: Normocephalic, atraumatic. Eyes: EOMI/PERRLA. Ears: Normal hearing. Normal anatomy. Neck/trachea: Trachea midline, supple. Nose: Normal external anatomy. Mouth: Moist mucous membranes. Chest: Decreased air entry bilaterally. No wheezing or rhonchi. Cardiovascular: Positive S1, positive S2. Regular rate and rhythm. Abdomen: Positive bowel sounds in all 4 quadrants. Soft, non-tender, non- distended. : Deferred. Rectal: Deferred. Skin: Warm, dry. Intact. Extremities: 2+ radial pulses bilaterally. No lower extremity edema. Neuro: Awake, alert, oriented x3. No gross motor or sensory deficits. Cranial nerves II through XII intact. Gait not assessed. laboratory and microbiology Laboratory Tests 01/18/25 12:14 Test 01/18/25 12:14 Range/Units Serum Glucose 206 H 74-106 mg/dL Assessment/Plan Impression Acute hypoxemic respiratory failure Pneumonia Anemia Diabetic ketoacidosis Events Patient seen and examined at bedside. On room air No distress Continue antibiotics Accu-Cheks for glycemic monitoring, ISS. Monitor hemoglobin Protonix BID for GI ppx Labs and imaging reviewed Rest of plan as noted below Plan S/p extubation on 01/12/2025 Supplemental oxygen PRN Titrate to maintain sats above 92% Incentive spirometry Continue antibiotics Accu-Cheks, ISS Monitor hemoglobin Protonix BID for GI ppx Monitor renal function Monitor electrolytes Supplement as needed GI/DVT prophylaxis Prognosis: Guarded given patient's multiple co-morbidities. Rest of plan per hospitalist and other consultants. Thank you Dr. Ramires for allowing me to participate in this patient's care. Further recommendations will depend on the patient's clinical course. Please do not hesitate to contact me if you have any questions or concerns. This medical document was created using an electronic medical record system with [employer] dictation system. Although these documentations are being carefully reviewed, there may still be some phonetic and typographical changes. The errors are purely typographical, due to imperfection on the software program, and do not reflect any compromise in the patient's medical care. Dietary Evaluation Review Recommendations by RD: Increase Calorie Intake Comments: Nutrition Recommendation: 1) Vital AF 1.2Cal @ 25ml/hr along with Pro-stat 1 pk BID. start @ 20ml/hr, increase 10ml/hr Q4H until goal is reached. TF @ goal volume along with propofol, IV D5wNS0.45%, and Pro-stat provides 1684 kcal (100% energy needs), 75gm protein (100% protein needs), 487ml free water. 2) TPN to meet 75% estimated needs if remains NPO 3) Bryce 1 pk BID for DFU Expected Outcomes/Goals: DFU to improve To maintain/gain weight To meet at least 75% estimated needs Fu 2-3 days Interpretation of weight loss: up to 5% in 1 month Muscle Mass (Severe): Mod to Severe Depletion Protein Calorie Malnutrition: Non-Severe Is there a minimum of two crit: Yes Plan discussed with: Patient, Other (CARIDAD Younger) KEISHA PENN MD Jan 18, 2025 22:56
--- NOTE | 2025-01-18 23:26 | DVHPN2 ---
Subjective Patient is seen and examined at bedside. He very sleepy today. Reviewed: Care Plan, H&P, Labs, Medications, Previous Orders, Radiology Changes from previous H/P or p: No Changes Eyes: No Pain, No Vision change, No Conjunctivae inflammation, No Eyelid inflammation, No Other, No Redness ENT: No Ear pain, No Ear discharge, No Nose pain, No Nose discharge, No Nose congestion, No Mouth pain, No Mouth swelling, No Throat pain, No Throat swelling, No Other Cardiovascular: No Chest Pain, No Palpitations, No Orthopnea, No Paroxysmal Noc. Dyspnea, No Edema, No Lt Headedness, No Other Respiratory: No Cough, No Dry, No Shortness of breath, No SOB with excertion, No Wheezing, No Hemoptysis, No Pleuritic Pain, No Sputum, No Other Gastrointestinal: No Nausea, No Vomiting, No Abdominal Pain, No Diarrhea, No Constipation, No Melena, No Hematochezia, No Other Genitourinary: No Dysuria, No Frequency, No Incontinence, No Hematuria, No Retention; Other (Owens catheter in place) Musculoskeletal: No other, No neck pain, No shoulder pain, No arm pain, No back pain, No hand pain, No leg pain, No foot pain Skin: No Rash, No Lesions, No Jaundice, No Bruising, No Other Objective Vitals Vital Signs Date Time Temp Pulse Resp B/P (MAP) Pulse Ox O2 Delivery O2 Flow Rate FiO2 01/18/25 20:00 118 01/18/25 20:00 Room Air* 3 N/A Nasal Cannula* 01/18/25 17:00 97.0 17 150/93 (112) 97 97.0 Intake/Output Intake and Output 01/18/25 07:00 Intake Total 837 ml Output Total 600 ml Balance 237 ml Intake Oral 237 ml IV Total 600 ml Output Urine Total 600 ml # Bowel Movements 4 General Appearance: Alert, No acute distress HEENT: Atraumatic, PERRLA, EOMI, Mucous membr. moist/pink Neck: Supple Lungs: Clear to auscultation, Normal air movement Cardiovascular: Regular rate, Normal S1, Normal S2, No murmurs, Gallops, Rubs Abdomen: Normal bowel sounds, Soft, No tenderness Neuro: Cranial nerves 3-12 NL Psych/Mental Status: Mental status NL Medications Current Medications Medications Dose Ordered Sig/Zaria Route Start Time Stop Time Status Last Admin Dose Admin Ondansetron HCl 4 mg Q4HP PRN IV 01/06/25 15:00 01/17/25 18:27 4 MG Acetaminophen 650 mg Q6HP PRN PO 01/06/25 15:00 Nitroglycerin 0.4 mg Q5MINP PRN SL 01/06/25 16:15 Famotidine 20 mg Q12HR IV 01/07/25 10:00 UNV Diagnostic Test (Pha) 1 strip IQ4HR 01/07/25 08:00 Cancel Calcium Gluconate/ Sodium Chloride 50 ml @ 100 mls/hr Q30M IV 01/08/25 17:30 01/08/25 18:29 Cancel Pantoprazole Sodium 40 mg BID IV 01/10/25 10:00 01/18/25 21:17 40 MG Diphenhydramine HCl 50 mg Q8HR IV 01/10/25 18:00 01/18/25 21:16 50 MG Insulin Glargine 12 units DAILY@1000 SC 01/11/25 10:00 01/17/25 10:55 12 UNITS Insulin Human Lispro Q4HR SC 01/11/25 10:00 01/18/25 21:20 1 UNITS Dextrose 50 ml UD PRN IV 01/11/25 09:45 01/16/25 06:34 50 ML Diagnostic Test (Pha) 1 strip Q4HR 01/11/25 10:00 01/18/25 21:21 1 STRIP Throat Lozenges 1 reza Q2HPRN PRN MT 01/12/25 22:45 Sodium Chloride 1,000 ml @ 100 mls/hr Q10H IV 01/14/25 09:30 01/18/25 13:12 100 MLS/HR Amlodipine Besylate 5 mg DAILY PO 01/14/25 10:00 01/18/25 10:07 5 MG Linezolid 600 mg BID PO 01/16/25 17:45 01/18/25 21:16 600 MG Aztreonam 1 gm/ Dextrose 50 ml @ 50 mls/hr Q8HR IV 01/17/25 00:00 01/18/25 21:21 50 MLS/HR Enteral Nutritional Formula 240 ml TIDWM PO 01/17/25 18:00 01/18/25 17:42 240 ML Metronidazole 500 mg Q8HR PO 01/17/25 22:00 01/18/25 21:16 500 MG Laboratory Results Laboratory Tests 01/18/25 12:14 Chemistry Test 01/18/25 12:14 Albumin 2.8 g/dL (3.2-4.8) L Calcium Level 7.6 mg/dL (8.7-10.4) L Total Protein 5.8 g/dL (5.7-8.2) LFT Test 01/18/25 12:14 Alanine Aminotransferase (ALT) < 9 U/L (7-40) Alkaline Phosphatase 197 U/L (46-116) H Aspartate Amino Transferase (AST) 9 U/L (<34) Total Bilirubin 0.2 mg/dL (0.2-1.0) Urinalysis Test 01/06/25 16:10 01/08/25 18:27 01/10/25 11:50 Urine Hyaline Casts Mod /lpf (0 - 2) Urine Osmolality 300 mOsm/kg Urine Color Colorless (Yellow) Urine Clarity Clear (Clear) Urine pH 5.5 (5.0-9.0) Urine Specific [place] 1.009 (1.001-1.035) Urine Protein 1+ (Negative) H Urine Ketones Negative (Negative) Urine Blood 2+ /uL (Negative) H Urine Nitrite Negative (Negative) Urine Bilirubin Negative (Negative) Urine Urobilinogen Normal mg/dL (Negative) Urine Leukocyte Esterase Negative /uL (Negative) Urine RBC 35 /hpf (0 - 3) Urine Microscopic WBC 1 /HPF (0-3) Urine Squamous Epithelial Cells Few /hpf (<5) Urine Bacteria Few /hpf (None Seen) H Urine Creatinine 26.27 mg/dL (30.0-125.0) L Urine Protein/Creatinine Ratio 7.12 Urine Sodium 79 mmol/L (40-220) Urine Glucose 1+ mg/dL (Normal) H Urine Total Protein 187.1 mg/dL (1-14) H Microbiology Microbiology Date/Time Source Procedure Growth Status 01/17/25 14:30 Foot Left Gram Stain - Final Resulted 01/17/25 14:30 Foot Left Wound Culture - Preliminary Resulted 01/16/25 19:00 Blood Blood Culture - Preliminary NO GROWTH AFTER 48 HOURS OF INCUBATION. Resulted 01/08/25 10:37 Stool Stool Culture - Final Complete 01/08/25 10:37 Stool Shiga Toxin I & II - Final Complete 01/06/25 15:14 Sputum Endotracheal Wash Gram Stain - Final Complete 01/06/25 15:14 Sputum Endotracheal Wash Respiratory Culture - Final Complete Labs and/or images reviewed: Labs reviewed by me Assessment/Plan Assessment/Plan Neuro Metabolic encephalopathy in DKA Uremic encephalopathy - Treat the underlying condition likely sepsis. Cardiovascular: AFIB on EKG Prolonged QTc interval Ventricular bigeminy - Amiodarone drip 1 time Respiratory: CXR: Bibasilar atelectasis or pneumonia. antibiotic: Meropenem and Vancomycin Vancomycin stopped due to reduced kidney function Meropenem stopped 01/12/2022 Gastrointestinal Gastroparesis( per father) Anemia, FOBT positive - pepcid - Consider GI consult when stable Endocrine/Metabolic: Diabetic Ketoacidosis Anion gap metabolic acidosis Hypernatremia-improving Hypermagnesemia Hyperphosphatemia Hypokalemia- corrected Severe protein calorie malnutrition, BMI 15.5 - Free water q4hrs stopped - D5 W / NS 01/13/2025 - CMP-7 daily stop, bmp daily - Bicarb stopped 01/07/2025 stopped - diabetic diet initiated 01/12/2025 - ensure, Nutritional consult Genitourinary RADHA likely due to ATN CKD 3 - Free water q4hrs- - CMP-7 Q4hrs - Nephrology consult Hematology Acute anemia FOBT positive Thrombocytosis likely secondary to sepsis Treat the underlying infection S/P 1 unit of PRBC Infections Disease Cellulitis bilateral Diabetic foot ulcer, left foot Severe Sepsis with septic shock Worsening WBC whilst on antibiotis, ID consult 01/17/2025 - wound culture pending - Blood cultures pending - Wound consult - Psychiatric Technician: seen patient - Aztreonam and linezolid - Betadine - Repeat CBC, CMP daily Eyes ( Per father) : low vision Retinal detachment Diabetic retinopathy - Recommends ophthalmology follow up outpatient IV access 01/06/2025 - Right Femoral - Right IJ - Right arm midline - Left arm peripheral Antibiotics: Zosyn and vancomycin Discontinued vascular Surgeon seen patient: No intervention at this time. Nephrology: Acute kidney injury superimposed Chronic Kidney Disease stage IIIB secondary hemodynamic mediated ATN, FeNa > 2%; signed off 01/16/2025 solumedrol 60mg q8hrs; benedryl 50 mg q8hrs: Discontinued Extubated 01/12/2025 Drips: Propofol, fentanyl: Discontinued 01/12/2025 Diet: Diabetic regular diet 1. ID consult for antibiotic management 2. Poor appetite, give ensure 3. Revenue Audit Clerk consult 4. SNF for wound care and PT upon discharge 5. Understanding of his diabetic and medical compliance Continuing current management. Continuing with sliding scale insulin. Patient had a very poor appetite today. We will follow up with dietitian consulted. This medical document was created using an electronic medical record system with [employer] direct computerized dictation system. Although this document has been carefully reviewed, there may still be some phonetic and typographical errors. These areas are purely typographical due to imperfections of the software programs, and do not reflect any compromise in the patient's medical care. Plan discussed with: Patient, Other (RN) My Orders Orders - MARY FLORES MD Procedure Category Date Status Time Transfer Orders XFER 01/18/25 Transmitted 11:46 Date of Service: Jan 18, 2025 Billing Provider: MARY FLORES MD Common Visit Codes: [id number] INP/OBS CARE(HIGH) MARY FLORES MD Jan 18, 2025 23:26
[2025-01-19] VITALS (7 sets, daily range): BP systolic 142–172; BP diastolic 91–111; PULSE 109–127; RESP 18–20; TEMP 97.7–98.2; O2SAT 94–99
--- NOTE | 2025-01-19 13:52 | DVHPN2 ---
Subjective Patient is seen and examined at bedside. Seemed to be more confused and lethargic today. Reviewed: Care Plan, H&P, Labs, Medications, Previous Orders, Radiology Changes from previous H/P or p: No Changes Eyes: No Pain, No Vision change, No Conjunctivae inflammation, No Eyelid inflammation, No Other, No Redness ENT: No Ear pain, No Ear discharge, No Nose pain, No Nose discharge, No Nose congestion, No Mouth pain, No Mouth swelling, No Throat pain, No Throat swelling, No Other Cardiovascular: No Chest Pain, No Palpitations, No Orthopnea, No Paroxysmal Noc. Dyspnea, No Edema, No Lt Headedness, No Other Respiratory: No Cough, No Dry, No Shortness of breath, No SOB with excertion, No Wheezing, No Hemoptysis, No Pleuritic Pain, No Sputum, No Other Gastrointestinal: No Nausea, No Vomiting, No Abdominal Pain, No Diarrhea, No Constipation, No Melena, No Hematochezia, No Other Genitourinary: No Dysuria, No Frequency, No Incontinence, No Hematuria, No Retention; Other (Owens catheter in place) Musculoskeletal: No other, No neck pain, No shoulder pain, No arm pain, No back pain, No hand pain, No leg pain, No foot pain Skin: No Rash, No Lesions, No Jaundice, No Bruising, No Other Objective Vitals Vital Signs Date Time Temp Pulse Resp B/P (MAP) Pulse Ox O2 Delivery O2 Flow Rate FiO2 01/19/25 10:09 150/96 01/19/25 09:00 98.2 121 18 97 98.2 01/19/25 08:00 Room Air* 3 N/A Nasal Cannula* Intake/Output Intake and Output 01/19/25 07:00 Intake Total 300 ml Output Total 500 ml Balance -200 ml Intake Oral 100 ml IV Total 200 ml Output Urine Total 500 ml # Bowel Movements 3 General Appearance: Other (Confused and lethargic) HEENT: Atraumatic, PERRLA, EOMI, Mucous membr. moist/pink Neck: Supple Lungs: Clear to auscultation, Normal air movement Cardiovascular: Regular rate, Normal S1, Normal S2, No murmurs, Gallops, Rubs Abdomen: Normal bowel sounds, Soft, No tenderness Neuro: Other (Confused, unable to exam) Psych/Mental Status: Other (Lethargic) Medications Current Medications Medications Dose Ordered Sig/Zaria Route Start Time Stop Time Status Last Admin Dose Admin Ondansetron HCl 4 mg Q4HP PRN IV 01/06/25 15:00 01/17/25 18:27 4 MG Acetaminophen 650 mg Q6HP PRN PO 01/06/25 15:00 Nitroglycerin 0.4 mg Q5MINP PRN SL 01/06/25 16:15 Famotidine 20 mg Q12HR IV 01/07/25 10:00 UNV Diagnostic Test (Pha) 1 strip IQ4HR 01/07/25 08:00 Cancel Calcium Gluconate/ Sodium Chloride 50 ml @ 100 mls/hr Q30M IV 01/08/25 17:30 01/08/25 18:29 Cancel Pantoprazole Sodium 40 mg BID IV 01/10/25 10:00 01/19/25 10:09 40 MG Diphenhydramine HCl 50 mg Q8HR IV 01/10/25 18:00 01/19/25 05:43 50 MG Insulin Glargine 12 units DAILY@1000 SC 01/11/25 10:00 01/19/25 10:17 12 UNITS Insulin Human Lispro Q4HR SC 01/11/25 10:00 01/19/25 02:13 1 UNITS Dextrose 50 ml UD PRN IV 01/11/25 09:45 01/16/25 06:34 50 ML Diagnostic Test (Pha) 1 strip Q4HR 01/11/25 10:00 01/19/25 10:10 1 STRIP Throat Lozenges 1 reza Q2HPRN PRN MT 01/12/25 22:45 Sodium Chloride 1,000 ml @ 100 mls/hr Q10H IV 01/14/25 09:30 01/19/25 10:10 100 MLS/HR Amlodipine Besylate 5 mg DAILY PO 01/14/25 10:00 01/19/25 10:09 5 MG Linezolid 600 mg BID PO 01/16/25 17:45 01/19/25 10:09 600 MG Aztreonam 1 gm/ Dextrose 50 ml @ 50 mls/hr Q8HR IV 01/17/25 00:00 01/19/25 05:43 50 MLS/HR Enteral Nutritional Formula 240 ml TIDWM PO 01/17/25 18:00 01/19/25 10:10 240 ML Metronidazole 500 mg Q8HR PO 01/17/25 22:00 01/19/25 05:43 500 MG Laboratory Results Laboratory Tests 01/18/25 12:14 Urinalysis Test 01/06/25 16:10 01/08/25 18:27 01/10/25 11:50 Urine Hyaline Casts Mod /lpf (0 - 2) Urine Osmolality 300 mOsm/kg Urine Color Colorless (Yellow) Urine Clarity Clear (Clear) Urine pH 5.5 (5.0-9.0) Urine Specific [place] 1.009 (1.001-1.035) Urine Protein 1+ (Negative) H Urine Ketones Negative (Negative) Urine Blood 2+ /uL (Negative) H Urine Nitrite Negative (Negative) Urine Bilirubin Negative (Negative) Urine Urobilinogen Normal mg/dL (Negative) Urine Leukocyte Esterase Negative /uL (Negative) Urine RBC 35 /hpf (0 - 3) Urine Microscopic WBC 1 /HPF (0-3) Urine Squamous Epithelial Cells Few /hpf (<5) Urine Bacteria Few /hpf (None Seen) H Urine Creatinine 26.27 mg/dL (30.0-125.0) L Urine Protein/Creatinine Ratio 7.12 Urine Sodium 79 mmol/L (40-220) Urine Glucose 1+ mg/dL (Normal) H Urine Total Protein 187.1 mg/dL (1-14) H Microbiology Microbiology Date/Time Source Procedure Growth Status 01/17/25 14:30 Foot Left Gram Stain - Final Resulted 01/17/25 14:30 Foot Left Wound Culture - Preliminary Resulted 01/16/25 19:00 Blood Blood Culture - Preliminary NO GROWTH AFTER 48 HOURS OF INCUBATION. Resulted 01/08/25 10:37 Stool Stool Culture - Final Complete 01/08/25 10:37 Stool Shiga Toxin I & II - Final Complete 01/06/25 15:14 Sputum Endotracheal Wash Gram Stain - Final Complete 01/06/25 15:14 Sputum Endotracheal Wash Respiratory Culture - Final Complete Labs and/or images reviewed: Labs reviewed by me Assessment/Plan Assessment/Plan Neuro Metabolic encephalopathy in DKA Uremic encephalopathy - Treat the underlying condition likely sepsis. - see plan below Cardiovascular: AFIB on EKG Prolonged QTc interval Ventricular bigeminy - Amiodarone drip 1 time Respiratory: CXR: Bibasilar atelectasis or pneumonia. antibiotic: Meropenem and Vancomycin Vancomycin stopped due to reduced kidney function Meropenem stopped 01/12/2022 Gastrointestinal Gastroparesis( per father) Anemia, FOBT positive - pepcid - Consider GI consult when stable Endocrine/Metabolic: Diabetic Ketoacidosis Anion gap metabolic acidosis Hypernatremia-improving Hypermagnesemia Hyperphosphatemia Hypokalemia- corrected Severe protein calorie malnutrition, BMI 15.5 - Free water q4hrs stopped - D5 W 1/2 NS 01/13/2025 - CMP-7 daily stop, bmp daily - Bicarb stopped 01/07/2025 stopped - diabetic diet initiated 01/12/2025 - ensure, Nutritional consult Genitourinary RADHA likely due to ATN CKD 3 - Free water q4hrs- - CMP-7 Q4hrs - Nephrology consult Hematology Acute anemia FOBT positive Thrombocytosis likely secondary to sepsis Treat the underlying infection S/P 1 unit of PRBC Infections Disease Cellulitis bilateral Diabetic foot ulcer, left foot Severe Sepsis with septic shock Worsening WBC whilst on antibiotis, ID consult 01/17/2025 - wound culture pending - Blood cultures pending - Wound consult - Maternal Fetal Physician: seen patient - Aztreonam and linezolid - Betadine - Repeat CBC, CMP daily Eyes ( Per father) : low vision Retinal detachment Diabetic retinopathy - Recommends ophthalmology follow up outpatient IV access 01/06/2025 - Right Femoral - Right IJ - Right arm midline - Left arm peripheral Antibiotics: Zosyn and vancomycin Discontinued vascular Surgeon seen patient: No intervention at this time. Nephrology: Acute kidney injury superimposed Chronic Kidney Disease stage IIIB secondary hemodynamic mediated ATN, FeNa > 2%; signed off 01/16/2025 solumedrol 60mg q8hrs; benedryl 50 mg q8hrs: Discontinued Extubated 01/12/2025 Drips: Propofol, fentanyl: Discontinued 01/12/2025 Diet: Diabetic regular diet plan 01/17/2025 1. ID consult for antibiotic management 2. Poor appetite, give ensure 3. Game Author consult 4. SNF for wound care and PT upon discharge 5. Understanding of his diabetic and medical compliance 01/19/2025: Continuing current management. I am going to order a stat CT scan to rule out acute CVA. We will check blood glucose. We will give D50 if needed when blood glucose less than 60. Prognosis guarded This medical document was created using an electronic medical record system with [employer] direct computerized dictation system. Although this document has been carefully reviewed, there may still be some phonetic and typographical errors. These areas are purely typographical due to imperfections of the software programs, and do not reflect any compromise in the patient's medical care. Plan discussed with: Patient Date of Service: Jan 19, 2025 Billing Provider: MARY FLORES MD Common Visit Codes: [id number] INP/OBS CARE(HIGH) MARY FLORES MD Jan 19, 2025 13:52
[2025-01-19 14:38] LABS: Nucleated Red Blood Cells % 0.0 %
[2025-01-19 14:40] LABS: Hematocrit 28.1 % (41.0-53.0); Hemoglobin 9.1 g/dL (13.5-17.5); Mean Corpuscular Hemoglobin 24.0 pg (28.0-32.0); Mean Corpuscular Volume 74.1 fL (80.0-100.0)
[2025-01-19 14:54] LABS: Sodium 143 mmol/L (136-145)
[2025-01-19 14:55] LABS: Anion Gap 15 (5-15)
[2025-01-19 14:59] LABS: Calcium 7.5 mg/dL (8.7-10.4); Carbon Dioxide 18 mmol/L (20-31); Chloride 110 mmol/L (98-107); Potassium 3.0 mmol/L (3.5-5.1)
[2025-01-19 15:00] LABS: BUN/Creatinine Ratio 13.6 (10.0-20.0); Blood Urea Nitrogen 37 mg/dL (9-23)
[2025-01-19 15:02] LABS: Glucose 20 mg/dL (74-106)
[2025-01-19] MEDS: D5W/SOD CHL 0.45% 1,000 ML IV SCH (16:37)
--- NOTE | 2025-01-19 21:42 | DVH ---
EXAM: CT HEAD WITHOUT CONTRAST INDICATION: rule out CVA TECHNIQUE: CT of the head without intravenous contrast. Radiation Dose Information: CT Dose: CTDI volume is 53.5 mGy. Dose-length product is 966.36 mGy*cm The dose indicators for CT are the volume Computed Tomography (CT) Dose Index (CTDIvol) and the Dose Length Product (DLP), and are measured in units of mGy and mGy-cm, respectively. These indicators are not patient dose, but values generated from the CT scanner acquisition factors. The report includes radiation exposure data for exposures received during this examination. COMPARISON: CT HEAD WITHOUT CONTRAST on DOS: 01/07/25, CT HEAD WITHOUT CONTRAST on DOS: 06/29/23 FINDINGS: There is no evidence of acute intracranial hemorrhage, extra-axial collection, mass effect, midline s hift, herniation or hydrocephalus. The ventricles, sulci and cisterns are age appropriate. The redding-white differentiation is intact. Patchy periventricular and subcortical white matter hypoattenuation is nonspecific but may be related to small vessel ischemic disease. The visualized paranasal sinuses and mastoid air cells are clear. The surrounding soft tissues and osseous structures are unremarkable. IMPRESSION: 1. No acute intracranial abnormality.
--- NOTE | 2025-01-19 23:31 | DVHPN2 ---
Progress Note - Dictate Date Seen: Jan 19, 2025 Medical Necessity Reason Pt with a Central, PICC or Fol: No The following are medically ne: Jones Catheter Reason for jones catheter: Strict I&O Subjective Patient seen and examined at bedside. Breathing comfortably on room air. Overnight events reviewed. vital signs Vital Sign Date Time Temp Pulse Resp B/P (MAP) Pulse Ox O2 Delivery O2 Flow Rate FiO2 01/19/25 21:00 97.7 111 19 142/92 (109) 99 97.7 01/19/25 08:00 Room Air* 3 N/A Nasal Cannula* Total Intake and Output 01/18/25 01/18/25 01/19/25 15:00 23:00 07:00 Intake Total 50 ml 250 ml Output Total 500 ml Balance 50 ml -250 ml medications Current Medications Medications Dose Ordered Sig/Zaria Route Start Time Stop Time Status Last Admin Dose Admin Ondansetron HCl 4 mg Q4HP PRN IV 01/06/25 15:00 01/17/25 18:27 4 MG Acetaminophen 650 mg Q6HP PRN PO 01/06/25 15:00 Nitroglycerin 0.4 mg Q5MINP PRN SL 01/06/25 16:15 Famotidine 20 mg Q12HR IV 01/07/25 10:00 UNV Diagnostic Test (Pha) 1 strip IQ4HR 01/07/25 08:00 Cancel Calcium Gluconate/ Sodium Chloride 50 ml @ 100 mls/hr Q30M IV 01/08/25 17:30 01/08/25 18:29 Cancel Pantoprazole Sodium 40 mg BID IV 01/10/25 10:00 01/19/25 22:40 40 MG Diphenhydramine HCl 50 mg Q8HR IV 01/10/25 18:00 01/19/25 22:40 50 MG Insulin Glargine 12 units DAILY@1000 SC 01/11/25 10:00 01/19/25 10:17 12 UNITS Insulin Human Lispro Q4HR SC 01/11/25 10:00 01/19/25 02:13 1 UNITS Dextrose 50 ml UD PRN IV 01/11/25 09:45 01/19/25 22:22 50 ML Diagnostic Test (Pha) 1 strip Q4HR 01/11/25 10:00 01/19/25 22:22 1 STRIP Throat Lozenges 1 reza Q2HPRN PRN MT 01/12/25 22:45 Amlodipine Besylate 5 mg DAILY PO 01/14/25 10:00 01/19/25 10:09 5 MG Linezolid 600 mg BID PO 01/16/25 17:45 01/19/25 22:39 600 MG Aztreonam 1 gm/ Dextrose 50 ml @ 50 mls/hr Q8HR IV 01/17/25 00:00 01/19/25 22:39 50 MLS/HR Enteral Nutritional Formula 240 ml TIDWM PO 01/17/25 18:00 01/19/25 15:01 240 ML Metronidazole 500 mg Q8HR PO 01/17/25 22:00 01/19/25 22:39 500 MG Dextrose/Sodium Chloride 1,000 ml @ 100 mls/hr Q10H IV 01/19/25 16:30 01/19/25 16:37 100 MLS/HR objective Gen.: Patient lying in bed in no apparent distress. Breathing on room air. Head: Normocephalic, atraumatic. Eyes: EOMI/PERRLA. Ears: Normal hearing. Normal anatomy. Neck/trachea: Trachea midline, supple. Nose: Normal external anatomy. Mouth: Moist mucous membranes. Chest: Decreased air entry bilaterally. No wheezing or rhonchi. Cardiovascular: Positive S1, positive S2. Regular rate and rhythm. Abdomen: Positive bowel sounds in all 4 quadrants. Soft, non-tender, non- distended. : Deferred. Rectal: Deferred. Skin: Warm, dry. Intact. Extremities: 2+ radial pulses bilaterally. No lower extremity edema. Neuro: Awake, alert, confused. No gross motor or sensory deficits. Cranial nerves II through XII intact. Gait not assessed. laboratory and microbiology Laboratory Tests 01/19/25 14:30 Test 01/19/25 14:30 Range/Units Serum Glucose 20 #*L 74-106 mg/dL Assessment/Plan Impression Acute hypoxemic respiratory failure Pneumonia Anemia Diabetic ketoacidosis Events Patient seen and examined at bedside. Remains on room air No distress Patient was noted to be hypoglycemic D50W administered STAT while at bedside. Continue Accu-Cheks/ISS. Continue antibiotics Head of bed elevation Aspiration precautions Monitor hemoglobin - currently 8.0 g/dL Protonix BID for GI ppx Plan to obtain head CT due to confusion Follow up results. Labs and imaging reviewed Rest of plan as noted below Plan S/p extubation on 01/12/2025 Supplemental oxygen PRN Titrate to maintain sats above 92% Incentive spirometry Continue antibiotics Accu-Cheks, ISS Monitor hemoglobin Transfuse if less than 7.0 g/dL. Protonix BID for GI ppx Monitor renal function Monitor electrolytes Supplement as needed GI/DVT prophylaxis Prognosis: Guarded given patient's multiple co-morbidities. Rest of plan per hospitalist and other consultants. Thank you Dr. Ramires for allowing me to participate in this patient's care. Further recommendations will depend on the patient's clinical course. Please do not hesitate to contact me if you have any questions or concerns. This medical document was created using an electronic medical record system with [employer] dictation system. Although these documentations are being carefully reviewed, there may still be some phonetic and typographical changes. The errors are purely typographical, due to imperfection on the software program, and do not reflect any compromise in the patient's medical care. Dietary Evaluation Review Recommendations by RD: Increase Calorie Intake Comments: Nutrition Recommendation: 1) Vital AF 1.2Cal @ 25ml/hr along with Pro-stat 1 pk BID. start @ 20ml/hr, increase 10ml/hr Q4H until goal is reached. TF @ goal volume along with propofol, IV D5wNS0.45%, and Pro-stat provides 1684 kcal (100% energy needs), 75gm protein (100% protein needs), 487ml free water. 2) TPN to meet 75% estimated needs if remains NPO 3) Bryce 1 pk BID for DFU Expected Outcomes/Goals: DFU to improve To maintain/gain weight To meet at least 75% estimated needs Fu 2-3 days Interpretation of weight loss: up to 5% in 1 month Muscle Mass (Severe): Mod to Severe Depletion Protein Calorie Malnutrition: Non-Severe Is there a minimum of two crit: Yes Plan discussed with: Other (CARIDAD Hugo) KEISHA PENN MD Jan 19, 2025 23:31
[2025-01-20] VITALS (8 sets, daily range): BP systolic 134–143; BP diastolic 80–92; PULSE 108–113; RESP 16–19; TEMP 98.2–99.1; O2SAT 96–98
[2025-01-20 07:35] LABS: Hematocrit 23.0 % (41.0-53.0); Hemoglobin 7.4 g/dL (13.5-17.5); Mean Corpuscular Hemoglobin 23.7 pg (28.0-32.0); Mean Corpuscular Volume 74.1 fL (80.0-100.0); Nucleated Red Blood Cells % 0.0 %
[2025-01-20 07:52] LABS: Sodium 140 mmol/L (136-145)
[2025-01-20 07:53] LABS: Anion Gap 13 (5-15)
[2025-01-20 07:58] LABS: BUN/Creatinine Ratio 11.1 (10.0-20.0); Glucose 84 mg/dL (74-106)
[2025-01-20 08:05] LABS: Blood Urea Nitrogen 30 mg/dL (9-23); Calcium 7.4 mg/dL (8.7-10.4); Carbon Dioxide 17 mmol/L (20-31); Chloride 110 mmol/L (98-107); Potassium 2.8 mmol/L (3.5-5.1)
--- NOTE | 2025-01-20 08:50 | DVHPNRES ---
Progress Note Date Seen: Jan 20, 2025 Resident Creating Document: ANABELL ORDOÑEZ RESIDENT Medical Necessity Reason Pt with a Central, PICC or Fol: No The following are medically ne: Jones Catheter Reason for jones catheter: Strict I&O Subjective Review of Systems Patient is a 44-year-old male with known history of type 1 diabetes mellitus who presented on 01/06/2025 via EMS for altered level of consciousness. Per EMS, the patient was found unresponsive with a blood glucose of 931 and received 400 cc IV fluids on route. On arrival he exhibited hypoxia, generalized weakness, increased work of breathing necessitating intubation and mechanical ventilation. Patient was started on IV insulin drip, Zosyn and vancomycin with bicarbonate for severe acidosis. A right femoral central line, midline and peripheral IVs were also placed. Of note, patient has a history of poor adherence to his insulin therapy. Per patient's father, patient lives alone in a trailer and had not been heard from since 01/02/2025. Patient was last hospitalized at the [facility] in November 2024 for DKA. On 01/07/2025, patient developed lip swelling while still intubated, chart review revealed a penicillin allergy. Zosyn was discontinued and patient was treated with methylprednisolone and transitioned to meropenem. Nephrology was consulted for RADHA and hypernatremia. A 01/10/2025, patient had begun to improve and was weaned off sedation and was extubated on 01/12/2025 and transferred telemetry. Antibiotics were discontinued at that time due to uncertainty about the cause of leukocytosis (steroids versus infection). However, WBCs continued to trend upwards and the patient developed low-grade fevers, subsequently restarted on linezolid and aztreonam. Patient has bilateral diabetic foot ulcers, left side more advanced than right. MRI of bilateral extremities shows mild subcutaneous edema, possibly cellulitis but no signs of osteomyelitis. Patient was also noted to have a pressure related ulcer to the left heel. Lower extremity arterial Doppler showed no significant stenosis. Vascular surgery evaluated the ulcers but recommended no interventions at this time. Podiatry already on board. Today on 01/20/2025: Held insulin Lantus, discontinued lispro, mild sliding scale q.4 hours only. Started IV fluconazole for candidal infection in the groin. Podiatry reconsulted for evaluation of bilateral lower extremity ulcers. GI consult for anemia and positive stool occult blood. Discontinued linezolid and aztreonam, started on cefepime, vancomycin and metronidazole. Objective vital signs Vital Sign Date Time Temp Pulse Resp B/P (MAP) Pulse Ox O2 Delivery O2 Flow Rate FiO2 01/20/25 08:46 98.3 108 16 143/87 (105) 97 98.3 01/19/25 20:00 Room Air* 3 N/A Nasal Cannula* Total Intake and Output 01/19/25 01/19/25 01/20/25 14:59 22:59 06:59 Intake Total 1300 ml 1280 ml Output Total 700 ml 600 ml Balance 600 ml 680 ml medications Current Medications Medications Dose Ordered Sig/Zaria Route Start Time Stop Time Status Last Admin Dose Admin Ondansetron HCl 4 mg Q4HP PRN IV 01/06/25 15:00 01/20/25 02:40 4 MG Acetaminophen 650 mg Q6HP PRN PO 01/06/25 15:00 Nitroglycerin 0.4 mg Q5MINP PRN SL 01/06/25 16:15 Famotidine 20 mg Q12HR IV 01/07/25 10:00 UNV Diagnostic Test (Pha) 1 strip IQ4HR 01/07/25 08:00 Cancel Calcium Gluconate/ Sodium Chloride 50 ml @ 100 mls/hr Q30M IV 01/08/25 17:30 01/08/25 18:29 Cancel Pantoprazole Sodium 40 mg BID IV 01/10/25 10:00 01/19/25 22:40 40 MG Diphenhydramine HCl 50 mg Q8HR IV 01/10/25 18:00 01/20/25 05:39 50 MG Insulin Glargine 12 units DAILY@1000 SC 01/11/25 10:00 01/19/25 10:17 12 UNITS Insulin Human Lispro Q4HR SC 01/11/25 10:00 01/19/25 02:13 1 UNITS Dextrose 50 ml UD PRN IV 01/11/25 09:45 01/20/25 05:09 50 ML Diagnostic Test (Pha) 1 strip Q4HR 01/11/25 10:00 01/20/25 05:08 1 STRIP Throat Lozenges 1 reza Q2HPRN PRN MT 01/12/25 22:45 Amlodipine Besylate 5 mg DAILY PO 01/14/25 10:00 01/19/25 10:09 5 MG Linezolid 600 mg BID PO 01/16/25 17:45 01/19/25 22:39 600 MG Aztreonam 1 gm/ Dextrose 50 ml @ 50 mls/hr Q8HR IV 01/17/25 00:00 01/20/25 05:40 50 MLS/HR Enteral Nutritional Formula 240 ml TIDWM PO 01/17/25 18:00 01/20/25 08:21 240 ML Metronidazole 500 mg Q8HR PO 01/17/25 22:00 01/20/25 05:53 500 MG Dextrose/Sodium Chloride 1,000 ml @ 100 mls/hr Q10H IV 01/19/25 16:30 01/20/25 04:52 100 MLS/HR Examination General Appearance: Cooperative. Malnourished, in mild distress Head Exam: Normal inspection. No vision in right eye, decreased vision in left eye Pulmonary/Respiratory: Chest non-tender. Clear bilateral breath sounds, no crackles, no wheezing. Cardiovascular/Chest: Regular rate and rhythm. No murmurs. No JVD. Abdominal Exam: Normal bowel sounds. Soft. normal abdomen, no visible veins, Nontender. No hepatospenomegaly. No masses Ankle Exam: Negative ankle edema Lower extremities: Negative lower extremity edema. Left heel pressure ulcer noted. Multiple diabetic foot ulcers on bilateral feet, largest 1 noted on left plantar foot Thoughts/Psych: Normal thought pattern. Appropriate mood and affect Skin Exam: Plaque-like whitish lesions noticed in bilateral groins, redness noted along right gluteal area laboratory and microbiology Laboratory Tests 01/20/25 06:10 Test 01/20/25 06:10 Range/Units Serum Glucose 84 74-106 mg/dL Microbiology Date/Time Source Procedure Growth Status 01/17/25 14:30 Foot Left Gram Stain - Final Resulted 01/17/25 14:30 Foot Left Wound Culture - Preliminary Resulted 01/16/25 19:00 Blood Blood Culture - Preliminary NO GROWTH AFTER 72 HOURS OF INCUBATION. Resulted 01/08/25 10:37 Stool Stool Culture - Final Complete 01/08/25 10:37 Stool Shiga Toxin I & II - Final Complete 01/06/25 15:14 Sputum Endotracheal Wash Gram Stain - Final Complete 01/06/25 15:14 Sputum Endotracheal Wash Respiratory Culture - Final Complete Labs and/or images reviewed: Labs reviewed by me, Image(s) reviewed by me Problem List/Assessment/Plan Problem List/Assessment/Plan Neurology # acute metabolic encephalopathy likely due to DKA vs Sepsis, improving - head CT from 01/07/2025: No acute territorial infarct, intracranial hemorrhage or mass effect - head CT from 01/19/2025: No acute intracranial abnormality - monitor Cardiovascular # runs of AFib on EKG # prolonged QTC - avoiding QT prolonging drugs - echocardiogram from 07/20/2022: Overall preserved ventricular systolic function. EF 60%. Grade 1 diastolic dysfunction. - monitor Respiratory # Community acquired pneumonia, Gram-positive versus Gram-negative # Acute hypoxic respiratory failure due to above - CXR 01/08/25: Bibasilar atelectasis or pneumonia. - CXR 01/20/25: Patchy bilateral airspace disease, [id number], slightly increased - previously on meropenem and vancomycin, stopped on 01/12/2025 - started on aztreonam on 01/17/2025, linezolid 01/16/2025 - discontinued aztreonam and linezolid on 01/20/2025 - started cefepime, vancomycin and metronidazole on 01/20/2025 GI # periportal edema # Microcytic anemia possibly 2' to ?LGI bleed; Hb 7.4 # Peptic ulcer prophylaxis - stool occult blood positive - GI consult - CT abdomen pelvis from 01/07/2025: Nonspecific periportal edema. Incidental finding. -Pantoprazole 40 mg IV daily Nephrology # RADHA likely hemodynamically mediated/VMN on possible CKD stage 3 # Diabetic nephropathy likely # Severe hypokalemia, 2.8 # hypernatremia, now improved - treating the underlying sepsis - U protein excretion est 7.1g/day - IV K rider 40mEq - 50 mEq PO potassium x2 - monitor Infectious disease # bilateral lower extremity cellulitis # left lower extremity diabetic foot ulcer on the plantar aspect growing Staph aureus # Sepsis due to above # left heel pressure ulcer # ruled out DVT - MRI from 01/09/2025 shows Mild diffuse subcutaneous soft-tissue edema; possibly cellulitis. No bone marrow edema is present to suggest fracture or acute osteomyelitis. - bilateral lower extremity arterial Doppler: No hemodynamically significant stenosis based on peak systolic velocity criteria. - bilateral lower extremity venous Doppler: No right or left femoropopliteal venous thrombosis - discontinued aztreonam and linezolid on 01/20/2025 - started cefepime, vancomycin and metronidazole on 01/20/2025 - podiatry on board Hem/onc # microcytic anemia # thrombocytosis likely secondary to sepsis - s/p 1 PRBC - GI on board - monitor Endocrine # DKA, now resolved # recurrent episodes of hypoglycemia # severe protein calorie malnutrition - discontinued lispro - holding insulin Lantus as patient continues to get hypoglycemic - mild sliding scale insulin - mechanical soft diet to encourage p.o. intake - Nutritional supplementation ensure w meals Diet - mechanical soft diet Lines - right peripheral line placed on 01/17/2025 - left 22 gauge placed on 01/19 Physical therapy ordered Code status discussed greater than 20 minutes: Full CODE STATUS. Plan discussed with Dr. Dan Plan discussed with: Patient, Other (RN) My Orders My Orders Orders - ANABELL ORDOÑEZ Procedure Category Date Status Time * Wound Consult CONS 01/20/25 Transmitted Dietary Evaluation Review Recommendations by RD: Increase Calorie Intake Comments: Nutrition Recommendation: 1) Vital AF 1.2Cal @ 25ml/hr along with Pro-stat 1 pk BID. start @ 20ml/hr, increase 10ml/hr Q4H until goal is reached. TF @ goal volume along with propofol, IV D5wNS0.45%, and Pro-stat provides 1684 kcal (100% energy needs), 75gm protein (100% protein needs), 487ml free water. 2) TPN to meet 75% estimated needs if remains NPO 3) Bryce 1 pk BID for DFU Expected Outcomes/Goals: DFU to improve To maintain/gain weight To meet at least 75% estimated needs Fu 2-3 days Interpretation of weight loss: up to 5% in 1 month Muscle Mass (Severe): Mod to Severe Depletion Protein Calorie Malnutrition: Non-Severe Is there a minimum of two crit: Yes Date of Service: Jan 20, 2025 Billing Provider: AMY DAN MD Common Visit Codes: [id number] INP/OBS CARE(HIGH) Secondary Visit Codes: [id number] CARE PLAN 30 MINUTES ANABELL ORDOÑEZ Jan 20, 2025 08:50 AMY DAN MD Jan 21, 2025 16:24
[2025-01-20] MEDS ORDERED: INSULIN LANTUS (GLARGINE) 1 /0.01ml (100units/ml) SC SCH (10:00)
[2025-01-20] MEDS: POTASSIUM CHL 20MEQ/100ML 100 ML IV SCH (10:42)
[2025-01-20] MEDS: POTASSIUM EFFERVESENT TAB 25 MEQ PO ONE ×2 (10:42→21:38)
[2025-01-20] MEDS: CEFEPIME 2GM/50ML NS 50 ML IV ONE (16:15)
[2025-01-20] MEDS ORDERED: VANCOMYCIN PER PHARMACY 0 MG IV SCH (16:15)
[2025-01-20] MEDS: FLUCONAZOLE 200MG/100ML 100 ML IV SCH (17:20)
[2025-01-20] MEDS: VANCOMYCIN 1GM/250ML KIT 250 ML IV ONE (18:34)
[2025-01-20] MEDS: InsuLIN REG 1unit/0.01ml Soln (100units/ml) SC SCH (20:00)
[2025-01-20] MEDS: ACCU-CHEK COMFORT CURVE STRIP VI SCH (21:16)
[2025-01-20] MEDS: CEFEPIME 2GM/50ML NS 50 ML IV SCH (22:51)
[2025-01-21] VITALS (7 sets, daily range): BP systolic 132–170; BP diastolic 68–90; PULSE 109–115; RESP 17–18; TEMP 97.8–98.1; O2SAT 91–97
--- NOTE | 2025-01-21 06:36 | DVH ---
CHEST RADIOGRAPH Indication: trace wheeze Technique: Single frontal view of the chest was obtained COMPARISON: XY CHEST PORTABLE on DOS: 01/13/25, XY CHEST PORTABLE on DOS: 01/10/25, XY CHEST XRAY 1 VIE W on DOS: 01/09/25, XY CHEST XRAY 1 VIEW on DOS: 01/08/25, XY CHEST XRAY 1 VIEW on DOS: 01/07/25 FINDINGS: Lines and Tubes: None Lungs: New moderate left and small right pleural effusions and diffuse increased prominence of the pu lmonary interstitium and vasculature with bibasilar pulmonary airspace disease. No pneumothorax. Cardiomediastinal contours: Unremarkable Bones: Unremarkable IMPRESSION: 1. Significant interval progression in new bilateral pleural effusions, diffuse increased prominence of the pulmonary vasculature and interstitium and bibasilar pulmonary airspace disease.
[2025-01-21 07:40] LABS: Hematocrit 26.4 % (41.0-53.0); Hemoglobin 8.3 g/dL (13.5-17.5); Mean Corpuscular Hemoglobin 23.8 pg (28.0-32.0); Mean Corpuscular Volume 75.7 fL (80.0-100.0); Nucleated Red Blood Cells % 0.1 %; Sodium 138 mmol/L (136-145)
[2025-01-21 07:41] LABS: Anion Gap 14 (5-15)
[2025-01-21 07:46] LABS: BUN/Creatinine Ratio 10.2 (10.0-20.0)
[2025-01-21 07:48] LABS: Blood Urea Nitrogen 29 mg/dL (9-23); Calcium 7.3 mg/dL (8.7-10.4); Carbon Dioxide 15 mmol/L (20-31); Chloride 109 mmol/L (98-107); Glucose 297 mg/dL (74-106); Potassium 3.3 mmol/L (3.5-5.1)
[2025-01-21] MEDS: diphenhdrAMINE HCL 50 MG/1 ML VL IV PRN (07:53)
[2025-01-21] MEDS: INSULIN LANTUS (GLARGINE) 1 /0.01ml (100units/ml) SC SCH (08:52)
[2025-01-21] MEDS: POTASSIUM EFFERVESENT TAB 25 MEQ PO ONE (11:15)
--- NOTE | 2025-01-21 12:58 | DVHPN2 ---
Subjective Patient is 44-year-old man with type 1 diabetes on insulin presented to the ED in a comatose state. According to the patient's father who was at the bedside today, patient does have insulin and all supplies (glucometer, strips) to check his blood glucose; however, patient has been noncompliant. Patient lives alone in a trailer and communicates with his father regularly. According to the father, the last time he heard from his son was January 02. When he tried reaching the son on Monday or Monday he did not hear back from him. Father went to visit the son and that was when he found him unresponsive and called 911. Of note patient was managed here on in November 2024 for DKA as well. Reviewed: Care Plan, H&P, Labs, Medications, Previous Orders, Radiology Changes from previous H/P or p: No Changes Eyes: No Pain, No Vision change, No Conjunctivae inflammation, No Eyelid inflammation, No Other, No Redness ENT: No Ear pain, No Ear discharge, No Nose pain, No Nose discharge, No Nose congestion, No Mouth pain, No Mouth swelling, No Throat pain, No Throat swelling, No Other Cardiovascular: No Chest Pain, No Palpitations, No Orthopnea, No Paroxysmal Noc. Dyspnea, No Edema, No Lt Headedness, No Other Respiratory: No Cough, No Dry, No Shortness of breath, No SOB with excertion, No Wheezing, No Hemoptysis, No Pleuritic Pain, No Sputum, No Other Gastrointestinal: No Nausea, No Vomiting, No Abdominal Pain, No Diarrhea, No Constipation, No Melena, No Hematochezia, No Other Genitourinary: No Dysuria, No Frequency, No Incontinence, No Hematuria, No Retention; Other (Owens catheter in place) Musculoskeletal: No other, No neck pain, No shoulder pain, No arm pain, No back pain, No hand pain, No leg pain, No foot pain Skin: No Rash, No Lesions, No Jaundice, No Bruising, No Other Objective Vitals Vital Signs Date Time Temp Pulse Resp B/P (MAP) Pulse Ox O2 Delivery O2 Flow Rate FiO2 01/21/25 09:00 97.9 111 17 170/90 (116) 92 97.9 01/20/25 20:00 Room Air* 3 N/A Nasal Cannula* Intake/Output Intake and Output 01/21/25 07:00 Intake Total 2125 ml Output Total 1325 ml Balance 800 ml Intake Oral 525 ml IV Total 1600 ml Output Urine Total 1325 ml # Bowel Movements 1 Exam Dermatological: Skin is dry with mild erythema and some maceration around the wound site No gross deformities noted Mild non-pitting edema present bilaterally Bilateral plantar foot wounds with purulent drainage on the left foot and eschar with surrounding cellulitis traveling up the leg Vascular: Dorsalis pedis and posterior tibial pulses are 1+ bilaterally Capillary refill is under 2 seconds Skin temperature is warm bilaterally Neurologic: Protective sensation is absent on the plantar forefoot bilaterally Monofilament testing reveals decreased sensation in multiple plantar sites Musculoskeletal: Range of motion at the ankle and MTP joints is within normal limits. Strength is 5/5 in all tested muscle groups. Gait is antalgic due to offloading of the affected limb. General Appearance: Other (Confused and lethargic) HEENT: Atraumatic, PERRLA, EOMI, Mucous membr. moist/pink Neck: Supple Lungs: Clear to auscultation, Normal air movement Cardiovascular: Regular rate, Normal S1, Normal S2, No murmurs, Gallops, Rubs Abdomen: Normal bowel sounds, Soft, No tenderness Neuro: Other (Confused, unable to exam) Psych/Mental Status: Other (Lethargic) Medications Current Medications Medications Dose Ordered Sig/Zaria Route Start Time Stop Time Status Last Admin Dose Admin Ondansetron HCl 4 mg Q4HP PRN IV 01/06/25 15:00 Hold 01/20/25 10:24 4 MG Acetaminophen 650 mg Q6HP PRN PO 01/06/25 15:00 Nitroglycerin 0.4 mg Q5MINP PRN SL 01/06/25 16:15 Famotidine 20 mg Q12HR IV 01/07/25 10:00 UNV Diagnostic Test (Pha) 1 strip IQ4HR 01/07/25 08:00 Cancel Calcium Gluconate/ Sodium Chloride 50 ml @ 100 mls/hr Q30M IV 01/08/25 17:30 01/08/25 18:29 Cancel Pantoprazole Sodium 40 mg BID IV 01/10/25 10:00 01/21/25 09:00 40 MG Throat Lozenges 1 reza Q2HPRN PRN MT 01/12/25 22:45 Amlodipine Besylate 5 mg DAILY PO 01/14/25 10:00 01/21/25 08:57 5 MG Enteral Nutritional Formula 240 ml TIDWM PO 01/17/25 18:00 01/21/25 08:12 240 ML Diphenhydramine HCl 50 mg Q8HR PRN IV 01/20/25 16:15 01/21/25 07:53 50 MG Cefepime HCl 50 ml @ 12.5 mls/hr Q12HR IV 01/20/25 22:00 01/21/25 08:58 12.5 MLS/HR Vancomycin HCl 0 ml @ 0 mls/hr UD IV 01/20/25 16:15 Metronidazole 100 ml @ 100 mls/hr Q8HR IV 01/20/25 22:00 01/21/25 05:01 100 MLS/HR Diagnostic Test (Pha) 1 strip IQ4HR 01/20/25 20:00 01/21/25 11:52 1 STRIP Insulin Human Regular IQ4HR SC 01/20/25 20:00 01/21/25 11:48 4 UNITS Dextrose 50 ml UD PRN IV 01/20/25 16:45 Fluconazole 100 ml @ 100 mls/hr DAILY IV 01/20/25 16:45 01/21/25 08:05 100 MLS/HR Insulin Glargine 7 units QAM CA 01/21/25 08:30 01/21/25 08:52 7 UNITS Laboratory Results Laboratory Tests 01/21/25 06:44 Chemistry Test 01/21/25 06:44 Calcium Level 7.3 mg/dL (8.7-10.4) L Urinalysis Test 01/06/25 16:10 01/08/25 18:27 01/10/25 11:50 Urine Hyaline Casts Mod /lpf (0 - 2) Urine Osmolality 300 mOsm/kg Urine Color Colorless (Yellow) Urine Clarity Clear (Clear) Urine pH 5.5 (5.0-9.0) Urine Specific [place] 1.009 (1.001-1.035) Urine Protein 1+ (Negative) H Urine Ketones Negative (Negative) Urine Blood 2+ /uL (Negative) H Urine Nitrite Negative (Negative) Urine Bilirubin Negative (Negative) Urine Urobilinogen Normal mg/dL (Negative) Urine Leukocyte Esterase Negative /uL (Negative) Urine RBC 35 /hpf (0 - 3) Urine Microscopic WBC 1 /HPF (0-3) Urine Squamous Epithelial Cells Few /hpf (<5) Urine Bacteria Few /hpf (None Seen) H Urine Creatinine 26.27 mg/dL (30.0-125.0) L Urine Protein/Creatinine Ratio 7.12 Urine Sodium 79 mmol/L (40-220) Urine Glucose 1+ mg/dL (Normal) H Urine Total Protein 187.1 mg/dL (1-14) H Microbiology Microbiology Date/Time Source Procedure Growth Status 01/19/25 16:06 Nose MRSA Screen - Final Complete 01/16/25 19:00 Blood Blood Culture - Preliminary NO GROWTH AFTER 72 HOURS OF INCUBATION. Resulted 01/08/25 10:37 Stool Stool Culture - Final Complete 01/08/25 10:37 Stool Shiga Toxin I & II - Final Complete 01/06/25 15:14 Sputum Endotracheal Wash Gram Stain - Final Complete 01/06/25 15:14 Sputum Endotracheal Wash Respiratory Culture - Final Complete Assessment/Plan Assessment/Plan ASSESSMENT: Patient is a 44 year old seen on the floor for a worsening ulcer PLAN: - The patients chart was reviewed, clinical findings were discussed with the patient, the etiologies of the conditions were discussed in detail, and a treatment plan was agreed to at this time, with both oral and written instructions provided. - patient previously had MRI showing no deeper infection - wounds appear to be stable with eschar - if concern for source of infection being the feet recommend repeat MRI to see if there is any changes - were placed for the MRI - we will re-evaluate once the imaging is complete - until then Betadine-soaked gauze Kerlix dressing All questions were answered and concerns addressed to the patient's satisfaction. The patient was given the phone number to the clinic and was told how to make contact with the clinic should any concerns or questions arise. Patient understands that if any questions or concerns arise prior to the next appointment, we should be contacted immediately. FOLLOW-UP: Continue to follow while inpatient Plan discussed with: Patient My Orders Orders - ADEBAYO RODRIGUEZ DPM Procedure Category Date Status Time Mri L Foot Wo Contrast MRI 01/20/25 Logged 16:29 Mri R Foot Wo Contrast MRI 01/20/25 Logged 16:29 Problem List: (1) Generalized weakness (2) Metabolic encephalopathy (3) Acute kidney injury (4) Sepsis, unspecified organism (5) Atrial fibrillation (6) Hyperphosphatemia (7) Hypernatremia (8) Acute renal insufficiency (9) Sepsis (10) UTI (urinary tract infection) (11) Altered mental status (12) DKA (diabetic ketoacidosis) (13) Symptomatic anemia (14) Erosive esophagitis (15) Hiatal hernia (16) Cachexia (17) Dehydration (18) Hypokalemia (19) Hypochloremia (20) Acute abdominal pain (21) Diabetes mellitus (22) Cellulitis (23) Failure to thrive (24) Hyperglycemia (25) Leukocytosis (26) Tachycardia (27) Non-ketotic hyperosmolar coma (28) Malnourished (29) Vomiting (30) Gastroparesis (31) GI bleed (32) Diabetic keto-acidosis (33) Coffee ground emesis (34) Intractable vomiting (35) BPH (benign prostatic hyperplasia) (36) Hypoglycemia associated with diabetes (37) Hydronephrosis, right (38) Appendicolith (39) Inadequate oral intake (40) Intractable abdominal pain (41) Cannabinoid hyperemesis syndrome (42) History of diabetic ketoacidosis Date of Service: Jan 21, 2025 Billing Provider: ADEBAYO RODRIGUEZ DPM Common Visit Codes: [id number] INP/OBS CARE(HIGH) ADEBAYO RODRIGUEZ DPM Jan 21, 2025 12:58
[2025-01-21] MEDS: DEXTROSE (50%) 50ML SYRG IV PRN (16:29)
[2025-01-21] MEDS ORDERED: METOCLOPRAMIDE HCL 5MG/ml INJ 2ml VIAL IV PRN (16:30)
[2025-01-21] MEDS ORDERED: HYDROcodone-ACET 5/325MG TAB PO PRN (16:30)
--- NOTE | 2025-01-21 18:02 | DVHPNRES ---
Progress Note Date Seen: Jan 21, 2025 Resident Creating Document: ANABELL ORDOÑEZ RESIDENT Medical Necessity Reason Pt with a Central, PICC or Fol: No The following are medically ne: Jones Catheter Reason for jones catheter: Strict I&O Subjective Review of Systems Patient is a 44-year-old male with known history of type 1 diabetes mellitus who presented on 01/06/2025 via EMS for altered level of consciousness. Per EMS, the patient was found unresponsive with a blood glucose of 931 and received 400 cc IV fluids on route. On arrival he exhibited hypoxia, generalized weakness, increased work of breathing necessitating intubation and mechanical ventilation. Patient was started on IV insulin drip, Zosyn and vancomycin with bicarbonate for severe acidosis. A right femoral central line, midline and peripheral IVs were also placed. Of note, patient has a history of poor adherence to his insulin therapy. Per patient's father, patient lives alone in a trailer and had not been heard from since 01/02/2025. Patient was last hospitalized at the [facility] in November 2024 for DKA. On 01/07/2025, patient developed lip swelling while still intubated, chart review revealed a penicillin allergy. Zosyn was discontinued and patient was treated with methylprednisolone and transitioned to meropenem. Nephrology was consulted for RADHA and hypernatremia. A 01/10/2025, patient had begun to improve and was weaned off sedation and was extubated on 01/12/2025 and transferred telemetry. Antibiotics were discontinued at that time due to uncertainty about the cause of leukocytosis (steroids versus infection). However, WBCs continued to trend upwards and the patient developed low-grade fevers, subsequently restarted on linezolid and aztreonam. Patient has bilateral diabetic foot ulcers, left side more advanced than right. MRI of bilateral extremities shows mild subcutaneous edema, possibly cellulitis but no signs of osteomyelitis. Patient was also noted to have a pressure related ulcer to the left heel. Lower extremity arterial Doppler showed no significant stenosis. Vascular surgery evaluated the ulcers but recommended no interventions at this time. Podiatry already on board. 01/20/2025: Held insulin Lantus, discontinued lispro, mild sliding scale q.4 hours only. Started IV fluconazole for candidal infection in the groin. Podiatry reconsulted for evaluation of bilateral lower extremity ulcers. GI consult for anemia and positive stool occult blood. Discontinued linezolid and aztreonam, started on cefepime, vancomycin and metronidazole. 01/21/25: notes improved but continued nausea, new onset abdominal pain 9-10/10, localized to mid abdomen. Patient refused MRI owing to abdominal pain, we will reattempt tomorrow. Added metoclopramide qD along with norco and morphine as needed. Blood glucose in 290s, resumed lantus 7units qAM, however, dropping blood sugar by 4pm therefore discontinued lantus again. Pt refuses to eat and has severe aversion to food Objective vital signs Vital Sign Date Time Temp Pulse Resp B/P (MAP) Pulse Ox O2 Delivery O2 Flow Rate FiO2 01/21/25 17:00 98.1 113 17 144/68 (93) 96 98.1 01/20/25 20:00 Room Air* 3 N/A Nasal Cannula* Total Intake and Output 01/20/25 01/20/25 01/21/25 15:00 23:00 07:00 Intake Total 100 ml 1650 ml 375 ml Output Total 500 ml 825 ml Balance 100 ml 1150 ml -450 ml medications Current Medications Medications Dose Ordered Sig/Zaria Route Start Time Stop Time Status Last Admin Dose Admin Ondansetron HCl 4 mg Q4HP PRN IV 01/06/25 15:00 Hold 01/20/25 10:24 4 MG Acetaminophen 650 mg Q6HP PRN PO 01/06/25 15:00 Nitroglycerin 0.4 mg Q5MINP PRN SL 01/06/25 16:15 Famotidine 20 mg Q12HR IV 01/07/25 10:00 UNV Diagnostic Test (Pha) 1 strip IQ4HR 01/07/25 08:00 Cancel Calcium Gluconate/ Sodium Chloride 50 ml @ 100 mls/hr Q30M IV 01/08/25 17:30 01/08/25 18:29 Cancel Pantoprazole Sodium 40 mg BID IV 01/10/25 10:00 01/21/25 09:00 40 MG Throat Lozenges 1 reza Q2HPRN PRN MT 01/12/25 22:45 Enteral Nutritional Formula 240 ml TIDWM PO 01/17/25 18:00 01/21/25 12:00 240 ML Diphenhydramine HCl 50 mg Q8HR PRN IV 01/20/25 16:15 01/21/25 07:53 50 MG Cefepime HCl 50 ml @ 12.5 mls/hr Q12HR IV 01/20/25 22:00 01/21/25 08:58 12.5 MLS/HR Vancomycin HCl 0 ml @ 0 mls/hr UD IV 01/20/25 16:15 Metronidazole 100 ml @ 100 mls/hr Q8HR IV 01/20/25 22:00 01/21/25 13:42 100 MLS/HR Diagnostic Test (Pha) 1 strip IQ4HR 01/20/25 20:00 01/21/25 16:00 1 STRIP Insulin Human Regular IQ4HR SC 01/20/25 20:00 01/21/25 11:48 4 UNITS Dextrose 50 ml UD PRN IV 01/20/25 16:45 01/21/25 16:29 50 ML Fluconazole 100 ml @ 100 mls/hr DAILY IV 01/20/25 16:45 01/21/25 08:05 100 MLS/HR Insulin Glargine 7 units QAM SC 01/21/25 08:30 Hold 01/21/25 08:52 7 UNITS Metoclopramide HCl 10 mg Q8HPRN PRN IV 01/21/25 16:30 Morphine Sulfate 1 mg Q4HP PRN IV 01/21/25 16:30 Acetaminophen/ Hydrocodone Bitart 1 tab Q6HPRN PRN PO 01/21/25 16:30 Amlodipine Besylate 10 mg DAILY PO 01/22/25 10:00 Furosemide 40 mg DAILY IV 01/22/25 10:00 Examination General Appearance: Cooperative. Malnourished, in mild distress Head Exam: Normal inspection. No vision in right eye, decreased vision in left eye Pulmonary/Respiratory: Chest non-tender. decreased bilateral breath sounds, no crackles, no wheezing. Cardiovascular/Chest: Tachycardic. No murmurs. No JVD. Abdominal Exam: Normal bowel sounds. Soft. normal abdomen, no visible veins, mid-abdominal tenderness to minimal palpation No hepatospenomegaly. No masses Lower extremities: Negative lower extremity edema. Left heel pressure ulcer noted. Multiple diabetic foot ulcers on bilateral feet, largest 1 noted on left plantar foot Thoughts/Psych: Normal thought pattern. Appropriate mood and affect Skin Exam: improving groin lesions, redness noted along right gluteal area laboratory and microbiology Laboratory Tests 01/21/25 06:44 Test 01/21/25 06:44 Range/Units Serum Glucose 297 #H 74-106 mg/dL Microbiology Date/Time Source Procedure Growth Status 01/19/25 16:06 Nose MRSA Screen - Final Complete 01/16/25 19:00 Blood Blood Culture - Preliminary NO GROWTH AFTER 72 HOURS OF INCUBATION. Resulted 01/08/25 10:37 Stool Stool Culture - Final Complete 01/08/25 10:37 Stool Shiga Toxin I & II - Final Complete 01/06/25 15:14 Sputum Endotracheal Wash Gram Stain - Final Complete 01/06/25 15:14 Sputum Endotracheal Wash Respiratory Culture - Final Complete Labs and/or images reviewed: Labs reviewed by me, Image(s) reviewed by me Problem List/Assessment/Plan Problem List/Assessment/Plan Neurology # acute metabolic encephalopathy likely due to DKA vs Sepsis, improving - head CT from 01/07/2025: No acute territorial infarct, intracranial hemorrhage or mass effect - head CT from 01/19/2025: No acute intracranial abnormality - monitor Cardiovascular # runs of AFib on EKG # prolonged QTC # Essential hypertension - avoiding QT prolonging drugs - echocardiogram from 07/20/2022: Overall preserved ventricular systolic function. EF 60%. Grade 1 diastolic dysfunction. - increased amlodipine to 10mg qD - repeat echo - monitor Respiratory # Community acquired pneumonia, Gram-positive versus Gram-negative # Acute hypoxic respiratory failure due to above - CXR 01/08/25: Bibasilar atelectasis or pneumonia. - CXR 01/20/25: Patchy bilateral airspace disease, [id number], slightly increased - previously on meropenem and vancomycin, stopped on 01/12/2025 - started on aztreonam on 01/17/2025, linezolid 01/16/2025 - discontinued aztreonam and linezolid on 01/20/2025 - started cefepime, vancomycin and metronidazole on 01/20/2025 GI # Acute intractable abdominal pain (01/21/25) # Microcytic anemia possibly 2' to ?LGI bleed; Hb 7.4 # Peptic ulcer prophylaxis - stool occult blood positive - GI consult - CT abdomen pelvis from 01/07/2025: Nonspecific periportal edema. Incidental finding. -Pantoprazole 40 mg IV daily - serum lipase 113 - repeat CT abdomen pelvis Nephrology # RADHA likely hemodynamically mediated/VMN on possible CKD stage 3 # Diabetic nephropathy likely # Severe hypokalemia, 2.8 # hypernatremia, now improved - treating the underlying sepsis - U protein excretion est 7.1g/day - IV K rider 40mEq - 50 mEq PO potassium x2 - IV lasix 40mg daily - monitor Infectious disease # bilateral lower extremity cellulitis # left lower extremity diabetic foot ulcer on the plantar aspect growing Staph aureus # Sepsis due to above # left heel pressure ulcer # ruled out DVT - MRI from 01/09/2025 shows Mild diffuse subcutaneous soft-tissue edema; possibly cellulitis. No bone marrow edema is present to suggest fracture or acute osteomyelitis. - bilateral lower extremity arterial Doppler: No hemodynamically significant stenosis based on peak systolic velocity criteria. - bilateral lower extremity venous Doppler: No right or left femoropopliteal venous thrombosis - discontinued aztreonam and linezolid on 01/20/2025 - started cefepime, vancomycin and metronidazole on 01/20/2025 - podiatry on board - pt refused repeat MRI L foot, we will reattempt tomorrow Hem/onc # microcytic anemia # thrombocytosis likely secondary to sepsis - s/p 1 PRBC - GI on board - monitor Endocrine # DKA, now resolved # recurrent episodes of hypoglycemia # severe protein calorie malnutrition - discontinued lispro - holding insulin Lantus as patient continues to get hypoglycemic - mild sliding scale insulin - mechanical soft diet to encourage p.o. intake - Nutritional supplementation ensure w meals Diet - mechanical soft diet Lines - right peripheral line placed on 01/17/2025 - left 22 gauge placed on 01/19 - R midline on 01/20/25 Physical therapy ordered Code status discussed greater than 20 minutes: Full CODE STATUS. Plan discussed with Dr. Dan Plan discussed with: Patient, Other (Father, RN) My Orders My Orders Orders - ANABELL ORDOÑEZ RESIDENT Procedure Category Date Status Time * Gi [employer] CONS 01/20/25 Transmitted 20:37 Chest Portable XY 01/21/25 Resulted 04:00 Insulin Lantus PHA 01/21/25 In Process (Glargine) (Lantus) 08:30 Pt Request For Service PT 01/21/25 Logged 08:56 Sputum Induction RT 01/21/25 Logged 13:39 Amlodipine Tablet PHA 01/22/25 In Process (Norvasc Tablet) 10:00 Furosemide Injection PHA 01/22/25 In Process (Lasix Injection) 10:00 Lipase LAB 01/21/25 Logged 18:00 Potassium LAB 01/21/25 Logged 18:00 Basic Metabolic Panel LAB 01/22/25 Verified 04:00 Dietary Evaluation Review Recommendations by RD: Increase Calorie Intake Comments: Nutrition Recommendation: 1) Vital AF 1.2Cal @ 25ml/hr along with Pro-stat 1 pk BID. start @ 20ml/hr, increase 10ml/hr Q4H until goal is reached. TF @ goal volume along with propofol, IV D5wNS0.45%, and Pro-stat provides 1684 kcal (100% energy needs), 75gm protein (100% protein needs), 487ml free water. 2) TPN to meet 75% estimated needs if remains NPO 3) Bryce 1 pk BID for DFU Expected Outcomes/Goals: DFU to improve To maintain/gain weight To meet at least 75% estimated needs Fu 2-3 days Interpretation of weight loss: up to 5% in 1 month Muscle Mass (Severe): Mod to Severe Depletion Protein Calorie Malnutrition: Non-Severe Is there a minimum of two crit: Yes Date of Service: Jan 21, 2025 Billing Provider: AMY DAN MD Common Visit Codes: [id number] INP/OBS CARE(HIGH) ANABELL ORDOÑEZ RESIDENT Jan 21, 2025 18:02 AMY DAN MD Jan 22, 2025 16:18
[2025-01-21] MEDS: METOCLOPRAMIDE HCL 5MG/ml INJ 2ml VIAL IV ONE (18:07)
[2025-01-21] MEDS: FUROSEMIDE 40 MG/4 ML VIAL IV ONE (18:07)
[2025-01-21] MEDS: DEXTROSE (50%) 50ML SYRG IV ONE (18:24)
[2025-01-21] MEDS: D5W/SOD CHLO 0.9% 1,000 ML IV SCH (18:30)
[2025-01-21 19:12] LABS: Lipase 116.0 U/L (12-53); Potassium 2.7 mmol/L (3.5-5.1)
[2025-01-21] MEDS: ACCU-CHEK COMFORT CURVE STRIP VI SCH (20:09)
--- NOTE | 2025-01-21 21:54 | DVHSR ---
APPROVED REPORT EXAM: Two-dimensional and M-mode echocardiogram with Doppler and color Doppler. Blood Pressure: 144/68 mmHg INDICATION Fluid overload RISK FACTORS Height: 5'10", Weight: 133 DIMENSIONS LVDd4.9 (3.8-5.7cm)LA (2D)4.2 (1.9-4.0cm)Aortic Root3.1 (2.0-3.7cm) LVDs3.0 (2.5-4.0cm)LA (MM) (1.9-4.0cm)Aortic Cusp Exc1.8 (1.5-2.0cm) EF (%) 65.0 (55-70%)Rt. Atrium4.4 (1.9-4.0cm)Asc. Aorta cm IVSd1.0 (0.7-1.1cm)RV (D) (1.8-2.4cm) PWd1.1 (0.7-1.1cm) Mitral Valve MitralMitral Stenosis E wave0.90m/sMV Mean GR.mmHg A wave0.80m/sMV Peak GR.mmHg E/A ratio1.12D MVAcm2 DECEL [id number] 1/2 Timems Aortic Valve Aortic ValveAortic Stenosis LVOT Diameter2.0 (1.8-2.4cm)Doppler AVAcm2 Pulmonic Valve V21.45m/s Tricuspid Valve TR Velocity3.09m/s [id number] Other Information Quality : LimitedRhythm : Technically limited study due to body habitus and patient position, patient refused to move or turn. Conclusion MILD LVH AND MILD LV DIASTOLIC DYSFUNCTION LV EF IS 65% SLIGHTLY DILATED LA MODERATELY DILATED RV AND RA MODERATE DEGREE PULMONARY HYPERTENSION RVSP IS 46 MM OF HG AND IS HIGH NORMAL VALVES NO EFFUSION
[2025-01-21] MEDS: POTASSIUM CHLORIDE 40 MEQ, LIDOCAINE 1% (LOCAL ANESTH.) 4 ML in SODIUM CHL 0.9% 250 ML IV ONE (22:00)
[2025-01-22] VITALS (8 sets, daily range): BP systolic 135–146; BP diastolic 65–79; PULSE 108–119; RESP 18–20; TEMP 98–99.9; O2SAT 89–96
[2025-01-22 06:51] LABS: Sodium 142 mmol/L (136-145)
[2025-01-22 06:52] LABS: Anion Gap 12 (5-15)
[2025-01-22 06:57] LABS: BUN/Creatinine Ratio 9.8 (10.0-20.0); Glucose 95 mg/dL (74-106)
[2025-01-22 06:59] LABS: Blood Urea Nitrogen 28 mg/dL (9-23); Calcium 6.6 mg/dL (8.7-10.4); Carbon Dioxide 17 mmol/L (20-31); Chloride 113 mmol/L (98-107); Potassium 3.3 mmol/L (3.5-5.1)
[2025-01-22] MEDS: POTASSIUM EFFERVESENT TAB 25 MEQ PO ONE (09:33)
[2025-01-22] MEDS: FUROSEMIDE 40 MG/4 ML VIAL IV SCH (09:35)
[2025-01-22 09:50] LABS: Mean Corpuscular Volume 76.7 fL (80.0-100.0); Nucleated Red Blood Cells % 0.0 %
[2025-01-22 09:54] LABS: Hematocrit 25.4 % (41.0-53.0); Hemoglobin 7.8 g/dL (13.5-17.5); Mean Corpuscular Hemoglobin 23.7 pg (28.0-32.0)
[2025-01-22 10:16] LABS: Bilirubin, Direct 0.2 mg/dL (<0.3); Cholesterol 105 mg/dL (< 200); Triglycerides 58 mg/dL (< 150)
[2025-01-22 10:17] LABS: Alanine Aminotransferase < 9 U/L (7-40); Albumin 2.0 g/dL (3.2-4.8); Alkaline Phosphatase 198 U/L (46-116); Bilirubin, Total 0.3 mg/dL (0.2-1.0); HDL Cholesterol 37 mg/dL (40-59); Total Protein 4.6 g/dL (5.7-8.2)
[2025-01-22] MEDS: MORPHINE SULFATE INJ 2 MG/ml SYRG IV PRN (11:44)
--- NOTE | 2025-01-22 12:10 | MEDREC ---
[facility] ASP Intervention Section I [facility] ASP Intervention: Deescalate AB based on CS (PLEASE CONSIDER DE-ESCALATION ACCORDING TO CULTURE RESULTS) NIGEL WARNER PHARMACIST Jan 22, 2025 12:10
--- NOTE | 2025-01-22 12:53 | DVH ---
Bilateral Upper Extremity Venous Duplex Clinical History: upper extremity swelling Comparison: US BILAT LOWER DVT on DOS: 01/08/25, US LT UPPER DVT on DOS: 02/02/23 Findings: Duplex Doppler evaluation of the venous systems of the right and left lower neck and upper extremitie s including color Doppler and spectral/pulsed waveform analysis was performed. RIGHT SIDE: The internal jugular vein demonstrates appropriate compressibility and waveform variability. The subclavian vein is patent on color Doppler evaluation without intraluminal thrombus and demonstra claude waveform variability. The visualized portion of the brachiocephalic vein is patent on color Doppler evaluation without intr aluminal thrombus and demonstrates waveform variability. The axillary vein demonstrates appropriate compressibility and waveform variability. The brachial veins demonstrate appropriate compressibility and patency on Doppler evaluation. The basilic vein demonstrates appropriate compressibility and patency on Doppler evaluation. The cephalic vein demonstrates appropriate compressibility and patency on Doppler evaluation. LEFT SIDE: The internal jugular vein demonstrates appropriate compressibility and waveform variability. The subclavian vein is patent on color Doppler evaluation without intraluminal thrombus and demonstra claude waveform variability. The visualized portion of the brachiocephalic vein is patent on color Doppler evaluation without intr aluminal thrombus and demonstrates waveform variability. The axillary vein demonstrates appropriate compressibility and waveform variability. The brachial veins demonstrate appropriate compressibility and patency on Doppler evaluation. The basilic vein demonstrates appropriate compressibility and patency on Doppler evaluation. Left cephalic vein appears completely occluded and noncompressible. Impression: Left cephalic vein appears completely occluded and noncompressible. No thrombus in the right extremity. If clinical concern/symptoms persist or worsen, short-interval follow-up study is suggested.
[2025-01-22] MEDS: VANCOMYCIN 1GM/250ML KIT 250 ML IV ONE (15:00)
[2025-01-22] MEDS: ENOXAPARIN SOD 40 MG/0.4 ML SYRINGE SC SCH (15:43)
--- NOTE | 2025-01-22 15:45 | DVH ---
EXAM: CT CT AB PEL WO CON-NO ORAL OR IV HISTORY: ab pain COMPARISON: CT CT AB PEL WO CON-NO ORAL OR IV on DOS: 01/07/25, CT CT AB PEL WO CON-NO ORAL OR IV on D OS: 12/02/24, CT CT AB PEL WO CON-NO ORAL OR IV on DOS: 10/19/23, CT CT AB PEL WO CON-NO ORAL OR IV on DOS: 08/07/23, CT CT AB PEL WO CON-NO ORAL OR IV on DOS: 04/18/23 TECHNIQUE: Helical CT images of the abdomen and pelvis were performed without IV contrast. Sagittal a nd coronal reformatted images were obtained. This CT exam was performed using one or more of the foll owing dose reduction techniques: Automated exposure control, adjustment of the mA and/or kv according to patient size, or the use of iterative reconstruction techniques. Radiation Dose: Abdomen/Pelvis: CTDIvol 6.34 mGy, DLP 399.01 mGy*cm. FINDINGS: CT abdomen: There are multiple old left lower rib fractures. There are moderate to large bilateral pl eural effusions. There is atelectasis of the bilateral lower lobes. There are patchy infiltrates in the right middle lobe and lingula, not fully imaged here. The heart is not enlarged. There is low vo lume free fluid in the upper abdomen. There is moderate right hydronephrosis, without evidence of hy droureter or obstructing calculi. The gallbladder is hydropic, measuring 10 cm length x 4 cm width, w ithout visualization of gallstones.The noncontrast liver, spleen, pancreas, left kidney, and bilatera l adrenal glands are unremarkable. No abdominal aortic aneurysm. CT pelvis: No abnormal small bowel dilatation or free air. There is fluid throughout the colon, with multiple air-fluid levels present in the colon. There is low to moderate volume pelvic ascites. Owens catheter is present in the urinary bladder. The prostate is mildly enlarged. The appendix is not d ilated. There is diffuse subcutaneous edema. There is mild osteoarthritis of the hips. There is quest ion of early left femoral head AVN versus artifactual appearance. There is mild Lumbar degenerative d isc disease. IMPRESSION: 1. Moderate to large bilateral pleural effusions with patchy and consolidative infiltrates in the alirio g bases likely a combination of pneumonia and atelectasis. 2. Low to moderate volume abdominopelvic ascites and diffuse subcutaneous edema suggestive of anasarc a. 3. Moderate right hydronephrosis without visualization of hydroureter or obstructing calculi. This a ppearance is new versus CT scan dated 01/07/2025. 4. Gallbladder hydrops without visualization of gallstones. This appearance may indicate acalculous cholecystitis. 5. Fluid-filled colon with multiple air-fluid levels present, possibly related to diarrheal illness. 6. No evidence of bowel obstruction, acute appendicitis, or other acute process in the abdomen or pel vis.
--- NOTE | 2025-01-22 17:14 | DVHPNRES ---
Progress Note Date Seen: Jan 22, 2025 Resident Creating Document: ANABELL ORDOÑEZ RESIDENT Medical Necessity Reason Pt with a Central, PICC or Fol: No The following are medically ne: Jones Catheter Reason for jones catheter: Strict I&O Subjective Review of Systems Patient is a 44-year-old male with known history of type 1 diabetes mellitus who presented on 01/06/2025 via EMS for altered level of consciousness. Per EMS, the patient was found unresponsive with a blood glucose of 931 and received 400 cc IV fluids on route. On arrival he exhibited hypoxia, generalized weakness, increased work of breathing necessitating intubation and mechanical ventilation. Patient was started on IV insulin drip, Zosyn and vancomycin with bicarbonate for severe acidosis. A right femoral central line, midline and peripheral IVs were also placed. Of note, patient has a history of poor adherence to his insulin therapy. Per patient's father, patient lives alone in a trailer and had not been heard from since 01/02/2025. Patient was last hospitalized at the [facility] in November 2024 for DKA. On 01/07/2025, patient developed lip swelling while still intubated, chart review revealed a penicillin allergy. Zosyn was discontinued and patient was treated with methylprednisolone and transitioned to meropenem. Nephrology was consulted for RADHA and hypernatremia. A 01/10/2025, patient had begun to improve and was weaned off sedation and was extubated on 01/12/2025 and transferred telemetry. Antibiotics were discontinued at that time due to uncertainty about the cause of leukocytosis (steroids versus infection). However, WBCs continued to trend upwards and the patient developed low-grade fevers, subsequently restarted on linezolid and aztreonam. Patient has bilateral diabetic foot ulcers, left side more advanced than right. MRI of bilateral extremities shows mild subcutaneous edema, possibly cellulitis but no signs of osteomyelitis. Patient was also noted to have a pressure related ulcer to the left heel. Lower extremity arterial Doppler showed no significant stenosis. Vascular surgery evaluated the ulcers but recommended no interventions at this time. Podiatry already on board. 01/20/2025: Held insulin Lantus, discontinued lispro, mild sliding scale q.4 hours only. Started IV fluconazole for candidal infection in the groin. Podiatry reconsulted for evaluation of bilateral lower extremity ulcers. GI consult for anemia and positive stool occult blood. Discontinued linezolid and aztreonam, started on cefepime, vancomycin and metronidazole. 01/21/25: notes improved but continued nausea, new onset abdominal pain 9-05/02, localized to mid abdomen. Patient refused MRI owing to abdominal pain, we will reattempt tomorrow. Added metoclopramide qD along with norco and morphine as needed. Blood glucose in 290s, resumed lantus 7units qAM, however, dropping blood sugar by 4pm therefore discontinued lantus again. Pt refuses to eat and has severe aversion to food 01/22/25: improved abdominal pain today 6-01/30, agreeable to CT abdomen however still refusing MRI L foot. Plan to reattempt tomorrow. new moderate R sided hydronephrosis noted, urology consulted. denies dyspnea, sob. improving nausea. Objective vital signs Vital Sign Date Time Temp Pulse Resp B/P (MAP) Pulse Ox O2 Delivery O2 Flow Rate FiO2 01/22/25 13:00 98.8 116 18 146/74 (98) 89 98.8 01/22/25 08:00 Room Air* 2 N/A Nasal Cannula* Total Intake and Output 01/21/25 01/21/25 01/22/25 15:00 23:00 07:00 Intake Total 150 ml 340 ml 1100 ml Output Total 650 ml 800 ml Balance 150 ml -310 ml 300 ml medications Current Medications Medications Dose Ordered Sig/Zaria Route Start Time Stop Time Status Last Admin Dose Admin Ondansetron HCl 4 mg Q4HP PRN IV 01/06/25 15:00 Hold 01/20/25 10:24 4 MG Acetaminophen 650 mg Q6HP PRN PO 01/06/25 15:00 Nitroglycerin 0.4 mg Q5MINP PRN SL 01/06/25 16:15 Famotidine 20 mg Q12HR IV 01/07/25 10:00 UNV Diagnostic Test (Pha) 1 strip IQ4HR 01/07/25 08:00 Cancel Calcium Gluconate/ Sodium Chloride 50 ml @ 100 mls/hr Q30M IV 01/08/25 17:30 01/08/25 18:29 Cancel Pantoprazole Sodium 40 mg BID IV 01/10/25 10:00 01/22/25 09:34 40 MG Throat Lozenges 1 reza Q2HPRN PRN MT 01/12/25 22:45 Enteral Nutritional Formula 240 ml TIDWM PO 01/17/25 18:00 01/21/25 18:00 240 ML Diphenhydramine HCl 50 mg Q8HR PRN IV 01/20/25 16:15 01/21/25 07:53 50 MG Cefepime HCl 50 ml @ 12.5 mls/hr Q12HR IV 01/20/25 22:00 01/22/25 09:32 12.5 MLS/HR Vancomycin HCl 0 ml @ 0 mls/hr UD IV 01/20/25 16:15 Metronidazole 100 ml @ 100 mls/hr Q8HR IV 01/20/25 22:00 01/22/25 13:29 100 MLS/HR Dextrose 50 ml UD PRN IV 01/20/25 16:45 01/21/25 16:29 50 ML Insulin Glargine 7 units QAM SC 01/21/25 08:30 Hold 01/21/25 08:52 7 UNITS Metoclopramide HCl 10 mg Q8HPRN PRN IV 01/21/25 16:30 Morphine Sulfate 1 mg Q4HP PRN IV 01/21/25 16:30 01/22/25 11:44 1 MG Acetaminophen/ Hydrocodone Bitart 1 tab Q6HPRN PRN PO 01/21/25 16:30 Amlodipine Besylate 10 mg DAILY PO 01/22/25 10:00 01/22/25 09:34 10 MG Furosemide 40 mg DAILY IV 01/22/25 10:00 01/22/25 09:35 40 MG Diagnostic Test (Pha) 1 strip Q2HR 01/21/25 20:00 01/22/25 15:40 1 STRIP Enoxaparin Sodium 40 mg DAILY SC 01/22/25 14:00 01/22/25 15:43 40 MG Fluconazole 200 mg DAILY PO 01/23/25 10:00 Examination General Appearance: Cooperative. Malnourished, in mild distress Head Exam: Normal inspection. No vision in right eye, decreased vision in left eye Pulmonary/Respiratory: Chest non-tender. decreased bilateral breath sounds, no crackles, no wheezing. Cardiovascular/Chest: Tachycardic. No murmurs. No JVD. Abdominal Exam: Normal bowel sounds. Soft. normal abdomen, no visible veins, mid-abdominal tenderness to minimal palpation No hepatospenomegaly. No masses Lower extremities: Negative lower extremity edema. Left heel pressure ulcer noted. Multiple diabetic foot ulcers on bilateral feet, largest 1 noted on left plantar foot Thoughts/Psych: Normal thought pattern. Appropriate mood and affect Skin Exam: improving groin lesions, redness noted along right gluteal area laboratory and microbiology Laboratory Tests 01/22/25 09:30 01/22/25 06:09 Test 01/22/25 06:09 Range/Units Serum Glucose 95 # 74-106 mg/dL Microbiology Date/Time Source Procedure Growth Status 01/19/25 16:06 Nose MRSA Screen - Final Complete 01/16/25 19:00 Blood Blood Culture - Final NO GROWTH AFTER 5 DAYS OF INCUBATION. Complete 01/08/25 10:37 Stool Stool Culture - Final Complete 01/08/25 10:37 Stool Shiga Toxin I & II - Final Complete 01/06/25 15:14 Sputum Endotracheal Wash Gram Stain - Final Complete 01/06/25 15:14 Sputum Endotracheal Wash Respiratory Culture - Final Complete Problem List/Assessment/Plan Problem List/Assessment/Plan Neurology # acute metabolic encephalopathy likely due to DKA vs Sepsis, improving - head CT from 01/07/2025: No acute territorial infarct, intracranial hemorrhage or mass effect - head CT from 01/19/2025: No acute intracranial abnormality - monitor Cardiovascular # runs of AFib on EKG # prolonged QTC # Essential hypertension - avoiding QT prolonging drugs - echocardiogram from 07/20/2022: Overall preserved ventricular systolic function. EF 60%. Grade 1 diastolic dysfunction. - increased amlodipine to 10mg qD - repeat echo - monitor Respiratory # Community acquired pneumonia, Gram-positive versus Gram-negative # Acute hypoxic respiratory failure due to above, on 2L O2 via NC # moderate-large b/l Pleural effusions - CXR 01/08/25: Bibasilar atelectasis or pneumonia. - CXR 01/20/25: Patchy bilateral airspace disease, [id number], slightly increased - previously on meropenem and vancomycin, stopped on 01/12/2025 - started on aztreonam on 01/17/2025, linezolid 01/16/2025 - discontinued aztreonam and linezolid on 01/20/2025 - started cefepime, vancomycin and metronidazole on 01/20/2025 GI # Acute intractable abdominal pain (01/21/25), improving # Microcytic anemia possibly 2' to ?LGI bleed; Hb 7.4 # Moderate abdominopelvic ascites # Peptic ulcer prophylaxis - stool occult blood positive - GI consult - CT abdomen pelvis from 01/07/2025: Nonspecific periportal edema. Incidental finding. -Pantoprazole 40 mg IV daily - serum lipase 113 - repeat CT abdomen pelvis (01/22/25): Moderate to large bilateral pleural effusions with patchy and consolidative infiltrates in the lung bases likely a combination of pneumonia and atelectasis.mLow to moderate volume abdominopelvic ascites and diffuse subcutaneous edema suggestive of anasarca. Moderate right hydronephrosis without visualization of hydroureter or obstructing calculi. This appearance is new versus CT scan dated 01/07/2025. Gallbladder hydrops without visualization of gallstones. This appearance may indicate acalculous cholecystitis. Fluid-filled colon with multiple air-fluid levels present, possibly related to diarrheal illness. No evidence of bowel obstruction, acute appendicitis, or other acute process in the abdomen or pelvis. Nephrology/ # RADHA likely hemodynamically mediated/VMN on possible CKD stage 3 # Anasarca due to above # severe hypoalbuminemia, serum albumin 2 # Diabetic nephropathy likely # Severe hypokalemia, improving # hypernatremia, now improved # asymptomatic hypocalcemia, corrected Ca 8.2mg/dl # moderate right-sided hydronephrosis - treating the underlying sepsis - U protein excretion est 7.1g/day - IV K rider 40mEq - 50 mEq PO potassium x2 - IV lasix 40mg daily - CT abdomen pelvis: Moderate to large bilateral pleural effusions with patchy and consolidative infiltrates in the lung bases likely a combination of pneumonia and atelectasis.Low to moderate volume abdominopelvic ascites and diffuse subcutaneous edema suggestive of anasarca. Moderate right hydronephrosis without visualization of hydroureter or obstructing calculi. This appearance is new versus CT scan dated 01/07/2025. Gallbladder hydrops without visualization of gallstones. This appearance may indicate acalculous cholecystitis. Fluid- filled colon with multiple air-fluid levels present, possibly related to diarrheal illness. No evidence of bowel obstruction, acute appendicitis, or other acute process in the abdomen or pelvis. - urology consulted Infectious disease # bilateral lower extremity cellulitis # left lower extremity diabetic foot ulcer on the plantar aspect growing Staph aureus # Sepsis due to above # left heel pressure ulcer # ruled out DVT # Fungal cutaneous infection in b/l groin - MRI from 01/09/2025 shows Mild diffuse subcutaneous soft-tissue edema; possibly cellulitis. No bone marrow edema is present to suggest fracture or acute osteomyelitis. - bilateral lower extremity arterial Doppler: No hemodynamically significant stenosis based on peak systolic velocity criteria. - bilateral lower extremity venous Doppler: No right or left femoropopliteal venous thrombosis - discontinued aztreonam and linezolid on 01/20/2025 - started cefepime, vancomycin and metronidazole on 01/20/2025 - podiatry on board - pt refused repeat MRI L foot, we will reattempt tomorrow - Fluconazole Hem/onc # microcytic anemia # thrombocytosis likely secondary to sepsis - s/p 1 PRBC - GI on board - monitor Endocrine # DKA, now resolved # recurrent episodes of hypoglycemia # severe protein calorie malnutrition - discontinued lispro - holding insulin Lantus as patient continues to get hypoglycemic - mild sliding scale insulin - mechanical soft diet to encourage p.o. intake - Nutritional supplementation ensure w meals Diet - pureed diet Lines - RUE midline placed 01/22/25 - R midline on 01/20/25 Physical therapy ordered critical care time 51 mins Code status discussed greater than 20 minutes: Full CODE STATUS. Plan discussed with Dr. Dan Plan discussed with: Patient, Other (RN) My Orders My Orders Orders - ANABELL ORDOÑEZ RESIDENT Procedure Category Date Status Time Ct Ab Pel Wo Con-No CT 01/22/25 Resulted Oral Or Iv 08:46 Bi Lat Upper Dvt US 01/22/25 Resulted 10:26 Enoxaparin Sodium PHA 01/22/25 In Process (Lovenox) 14:00 Urinalysis LAB 01/22/25 Logged 15:54 Urine Bacterial RICHARD 01/22/25 Logged Culture 15:54 Dietary Evaluation Review Recommendations by RD: Increase Calorie Intake Comments: Nutrition Recommendation: 1) Vital AF 1.2Cal @ 25ml/hr along with Pro-stat 1 pk BID. start @ 20ml/hr, increase 10ml/hr Q4H until goal is reached. TF @ goal volume along with propofol, IV D5wNS0.45%, and Pro-stat provides 1684 kcal (100% energy needs), 75gm protein (100% protein needs), 487ml free water. 2) TPN to meet 75% estimated needs if remains NPO 3) Bryce 1 pk BID for DFU Expected Outcomes/Goals: DFU to improve To maintain/gain weight To meet at least 75% estimated needs Fu 2-3 days Interpretation of weight loss: up to 5% in 1 month Muscle Mass (Severe): Mod to Severe Depletion Protein Calorie Malnutrition: Non-Severe Is there a minimum of two crit: Yes Date of Service: Jan 22, 2025 Billing Provider: AMY DAN MD Common Visit Codes: 24323-[id number] CARE 30-74 MIN ANABELL ORDOÑEZ Jan 22, 2025 17:14 AMY DAN MD Jan 23, 2025 12:36
[2025-01-22 18:13] LABS: Urine Protein, UAD 2+ (Negative)
[2025-01-23] VITALS (15 sets, daily range): BP systolic 94–139; BP diastolic 39–72; PULSE 78–120; RESP 18–32; TEMP 94–98.9; O2SAT 84–99
[2025-01-23] MEDS: CEFEPIME 2GM/50ML NS 50 ML IV SCH ×2 (03:00→18:22)
[2025-01-23 07:02] LABS: Anion Gap 17 (5-15)
[2025-01-23 07:07] LABS: BUN/Creatinine Ratio 8.9 (10.0-20.0)
[2025-01-23 07:19] LABS: Blood Urea Nitrogen 26 mg/dL (9-23); Calcium 6.6 mg/dL (8.7-10.4); Carbon Dioxide 12 mmol/L (20-31); Chloride 116 mmol/L (98-107); Glucose 128 mg/dL (74-106); Potassium 3.2 mmol/L (3.5-5.1); Sodium 145 mmol/L (136-145)
[2025-01-23 08:49] LABS: Hematocrit 25.5 % (41.0-53.0); Hemoglobin 7.8 g/dL (13.5-17.5); Mean Corpuscular Hemoglobin 23.2 pg (28.0-32.0); Mean Corpuscular Volume 75.6 fL (80.0-100.0); Nucleated Red Blood Cells % 0.1 %
[2025-01-23] MEDS: FLUCONAZOLE 100 MG TAB PO SCH (09:52)
--- NOTE | 2025-01-23 12:08 | DVHINCON2 ---
Date of service: Jan 23, 2025 Referring Physician hospitalist Reason for Consultation hydronephrosis History of Present Illness History Source: Patient, RN Notes, MD Notes Exam Limitations: No limitations HPI 44 yo male with uncontrolled DM admitted for DKA. Ct showed right hydro without calculus. Jones catheter in place. Home Meds Active Scripts Metoclopramide Hcl (Reglan) 5 Mg Tab, 5 MG PO TID for 14 Days, #42 TAB Prov:NGA GARCIA RESIDENT 12/06/24 Pantoprazole Sodium Sesquihydr (Pantoprazole Sodium) 40 Mg Tab, 40 MG PO DAILY@0600 for 30 Days, #30 TAB Prov:YOANANGA SIGALA RESIDENT 12/06/24 Past Medical History Endocrine: IDDM Patient Family History: Alzheimer's disease Grandparent Arthritis G8 MOTHER Diabetes mellitus FH: kidney disease G8 FATHER Hypertension G8 MOTHER G8 FATHER Review of Systems Constitutional: No symptom reported Ears, Nose, & Throat: No symptom reported Eyes: No symptom reported Pulmonary/Respiratory: No symptom reported Cardiovascular: No symptom reported Gastrointestinal: No symptom reported Genitourinary: No symptom reported Musculoskeletal: No symptom reported Skin: No symptom reported Psychiatric: No symptom reported Endocrine: No symptom reported Hemotologic/Lymphatic: No symptom reported H&P Exam Vital Signs Vital Signs Date Time Temp Pulse Resp B/P (MAP) Pulse Ox O2 Delivery O2 Flow Rate FiO2 01/23/25 10:42 119 19 139/62 01/23/25 08:36 97.6 99 97.6 01/22/25 20:00 Nasal Cannula* 2 28 General Appeara: Well developed, Well nourished, Normal Appearance, Thin Pulmonary/Respiratory: Normal inspection, Normal breath sounds, Chest non- tender, Lungs clear Cardiovascular/Chest: Normal inspection, Regular rate, Normal Rhythm Neuro/Mental St: Alert, Oriented Appearance: Appropriate appearance, Appropriate insight Eye contact/ Speech: Cooperative, Good eye contact, Normal speech Skin Exam: Normal inspection, Normal color, Warm/dry Labs/Xrays [facility] [id number] [place] [id number] Ph: [phone] DIAGNOSTIC IMAGING Diagnostic Imaging Report : [id number] Signed PATIENT: SUKHWINDER CHEEMAACCT: [id number] UNIT: [id number] : 1980 LOC: TELE-CENTR ROOM / BED: 0203T / A AGE / SEX: 44 / M ADM STATUS: ADM IN SERVICE [id number] ORDERING PHYSICIAN: ANABELL ORDOÑEZ RESIDENT PROCEDURE(s): ABPL - CT AB PEL WO CON-NO ORAL OR IV REASON: ab pain ORDER NUMBER(s): [id number], ACCESSION NUMBER(s): [id number] EXAM: CT CT AB PEL WO CON-NO ORAL OR IV HISTORY: ab pain COMPARISON: CT CT AB PEL WO CON-NO ORAL OR IV on DOS: 01/07/25, CT CT AB PEL WO CON-NO ORAL OR IV on DOS: 12/02/24, CT CT AB PEL WO CON-NO ORAL OR IV on DOS: 10/19/23, CT CT AB PEL WO CON-NO ORAL OR IV on DOS: 08/07/23, CT CT AB PEL WO CON- NO ORAL OR IV on DOS: 04/18/23 TECHNIQUE: Helical CT images of the abdomen and pelvis were performed without IV contrast. Sagittal and coronal reformatted images were obtained. This CT exam was performed using one or more of the following dose reduction techniques: Automated exposure control, adjustment of the mA and/or kv according to patient size, or the use of iterative reconstruction techniques. Radiation Dose: Abdomen/Pelvis: CTDIvol 6.34 mGy, DLP 399.01 mGy*cm. FINDINGS: CT abdomen: There are multiple old left lower rib fractures. There are moderate to large bilateral pleural effusions. There is atelectasis of the bilateral lower lobes. There are patchy infiltrates in the right middle lobe and lingula, not fully imaged here. The heart is not enlarged. There is low volume free fluid in the upper abdomen. There is moderate right hydronephrosis, without evidence of hydroureter or obstructing calculi. The gallbladder is hydropic, measuring 10 cm length x 4 cm width, without visualization of gallstones.The noncontrast liver, spleen, pancreas, left kidney, and bilateral adrenal glands are unremarkable. No abdominal aortic aneurysm. CT pelvis: No abnormal small bowel dilatation or free air. There is fluid throughout the colon, with multiple air-fluid levels present in the colon. There is low to moderate volume pelvic ascites. Jones catheter is present in the u rinary bladder. The prostate is mildly enlarged. The appendix is not dilated. There is diffuse subcutaneous edema. There is mild osteoarthritis of the hips. There is question of early left femoral head AVN versus artifactual appearance. There is mild Lumbar degenerative disc disease. IMPRESSION: 1. Moderate to large bilateral pleural effusions with patchy and consolidative infiltrates in the lung bases likely a combination of pneumonia and atelectasis. 2. Low to moderate volume abdominopelvic ascites and diffuse subcutaneous edema suggestive of anasarca. 3. Moderate right hydronephrosis without visualization of hydroureter or obstructing calculi. This appearance is new versus CT scan dated 01/07/2025. 4. Gallbladder hydrops without visualization of gallstones. This appearance may indicate acalculous cholecystitis. 5. Fluid-filled colon with multiple air-fluid levels present, possibly related to diarrheal illness. 6. No evidence of bowel obstruction, acute appendicitis, or other acute process in the abdomen or pelvis. ATED BY: HARDIK LARA MD DICTATED DATE/TIME: 01/22/25 1542 SIGNED BY: HARDIK LARA MD SIGNED DATE/TIME: 01/22/25 1542 CC: Labs Test 01/23/25 10:05 01/23/25 08:09 01/23/25 04:41 01/22/25 17:30 Range/Units POC Glucose 148 H 70-106 mg/dl White Blood Count 15.0 H 4.4-10.8 10^3/uL Red Blood Count 3.37 L 4.5-5.90 10^6/uL Hemoglobin 7.8 L 13.5-17.5 g/dL Hematocrit 25.5 L 41.0-53.0 % Mean Corpuscular Volume 75.6 L 80.0-100.0 fL Mean Corpuscular Hemoglobin 23.2 L 28.0-32.0 pg Mean Corpuscular Hemoglobin Concent 30.7 L 32.0-36.0 g/dL Red Cell Distribution Width 20.2 H 11.8-14.3 % Platelet Count 404 140-450 10^3/uL Mean Platelet Volume 6.6 L 6.9-10.8 fL Neutrophils (%) (Auto) 81.2 H 37.0-80.0 % Lymphocytes (%) (Auto) 10.0 10.0-50.0 % Monocytes (%) (Auto) 5.3 0.0-12.0 % Eosinophils (%) (Auto) 2.5 0.0-7.0 % Basophils (%) (Auto) 1.0 0.0-2.0 % Neutrophils # (Auto) 12.2 H 1.6-8.6 10 ^3/uL Lymphocytes # (Auto) 1.5 0.4-5.4 10 ^3/uL Monocytes # (Auto) 0.8 0-1.3 10 ^3/uL Eosinophils # (Auto) 0.4 0-0.8 10 ^3/uL Basophils # (Auto) 0.1 0-0.2 10 ^3/uL Nucleated Red Blood Cells 0.1 % Sodium Level 145 136-145 mmol/L Potassium Level 3.2 L 3.5-5.1 mmol/L Chloride Level 116 H 98-107 mmol/L Carbon Dioxide Level 12 L 20-31 mmol/L Anion Gap 17 H 5-15 Blood Urea Nitrogen 26 H 9-23 mg/dL Creatinine 2.93 H 0.700-1.30 mg/dL Glomerular Filtration Rate Calc 26 >90 mL/min BUN/Creatinine Ratio 8.9 L 10.0-20.0 Serum Glucose 128 H 74-106 mg/dL Calcium Level 6.6 L 8.7-10.4 mg/dL Urine Color Colorless Yellow Urine Clarity Turbid H Clear Urine pH 6.0 5.0-9.0 Urine Specific [place] 1.011 1.001-1.035 Urine Protein 2+ H Negative Urine Ketones Negative Negative Urine Blood 3+ H Negative /uL Urine Nitrite Negative Negative Urine Bilirubin Negative Negative Urine Urobilinogen Normal Negative mg/dL Urine Leukocyte Esterase Negative Negative /uL Urine RBC 702 0 - 3 /hpf Urine Microscopic WBC < 1 0-3 /HPF Urine Squamous Epithelial Cells Few <5 /hpf Urine Bacteria None seen None Seen /hpf Urine Hyaline Casts Few 0 - 2 /lpf Urine Mucus Few None Seen Urine Glucose 2+ H Normal mg/dL Test 01/22/25 09:30 01/22/25 06:09 01/21/25 18:33 01/18/25 12:14 Range/Units Total Bilirubin 0.3 0.2-1.0 mg/dL Direct Bilirubin 0.2 <0.3 mg/dL Aspartate Amino Transferase (AST) 16 13-40 U/L Alanine Aminotransferase (ALT) < 9 7-40 U/L Alkaline Phosphatase 198 H 46-116 U/L Total Protein 4.6 L 5.7-8.2 g/dL Albumin 2.0 L 3.2-4.8 g/dL Triglycerides Level 58 < 150 mg/dL Cholesterol Level 105 < 200 mg/dL LDL Cholesterol 41 < 100 mg/dL HDL Cholesterol 37 L 40-59 mg/dL Random Vancomycin Level 13.9 H 5-10 ug/mL Lipase 116 H 12-53 U/L Lactic Acid Level 0.8 0.4-2.0 mmol/L Test 01/13/25 03:06 01/12/25 10:10 01/12/25 06:25 01/11/25 02:11 Range/Units Magnesium Level 2.3 1.6-2.6 mg/dL Blood Gas Specimen Type Arterial Blood Gas Sample Site Left radial Blood Gas Patient Temperature 37.0 Arterial Blood Date Drawn [id number] Arterial Blood pH 7.400 7.350-7.450 Arterial Blood Partial Pressure CO2 40.3 35.0-48.0 mmHg Arterial Blood Partial Pressure O2 92.1 83.0-108.0 mmHg Arterial Blood HCO3 24.4 21.0-28.0 mmol/L Arterial Blood Oxygen Saturation 96.6 94.0-98.0 % Arterial Blood Base Excess -0.3 -2.0-3.0 mmol/L Arterial Blood Oxyhemoglobin 96.1 94.0-98.0 % Arterial Blood Carboxyhemoglobin 0.2 L 0.5-1.5 % Arterial Blood Methemoglobin 0.3 0.0-1.5 % Kyle Test Modified Blood Gas Total Hemoglobin 10.00 L 13.5-17.5 g/dL Blood Gas Modality Vent - cpap FiO2 % 30.0 Blood Gas Pressure Support 8 Blood Gas PEEP or CPAP 5.0 Blood Gas Set Respiration Rate 14.0 Blood Gas Tidal Volume 450.0 Phosphorus Level 3.7 2.4-5.1 mg/dL Test 01/10/25 11:50 01/10/25 06:25 01/09/25 03:00 01/08/25 18:27 Range/Units Urine Creatinine 26.27 L 30.0-125.0 mg/dL Urine Protein/Creatinine Ratio 7.12 Urine Sodium 79 40-220 mmol/L Urine Total Protein 187.1 H 1-14 mg/dL Blood Gas Critical Value Read Back Yes Blood Gas Notified Whom janice Duarte md Blood Gas Notified Time [id number] Blood Gas Notified By Merly robles i. Hemoglobin A1c 8.9 H <5.7 % A1C Parathyroid Hormone (Intact) 264.7 H 18.4-80.1 pg/mL Urine Osmolality 300 mOsm/kg Test 01/08/25 10:37 01/06/25 23:08 01/06/25 16:10 01/06/25 15:00 Range/Units Stool Occult Blood Positive Negative Stool Occult Blood Sample #3 Negative Stool for White Cells Moderate Specimen Drawn By Urine Opiates Screen Neg NEGATIVE Urine Fentanyl Screen Neg NEGATIVE Urine Barbiturates Screen Neg NEGATIVE Urine Phencyclidine Screen Neg NEGATIVE Urine Amphetamines Screen Neg NEGATIVE Urine Benzodiazepines Screen Neg NEGATIVE Urine Cocaine Screen Neg NEGATIVE Urine Cannabinoids Screen Pos NEGATIVE Differential Total Cells Counted 100.0 100 Neutrophils % (Manual) 89 H 37.0-80.0 Band Neutrophils % (Manual) 4 Lymphocytes % (Manual) 3 L 10.0-50.0 Monocytes % (Manual) 4 0-12 Eosinophils % (Manual) 0 0-7 Basophils % (Manual) 0 0.0-2.0 Metamyelocytes % (manual) 0 Myelocytes % (Manual) 0 Promyelocytes % (Manual) 0 Blast Cells % (Manual) 0 Reactive Lymphocytes 0 Platelet Estimate Markedly increased Large Platelets Hypochromasia (manual) Marked Anisocytosis (manual) Slight Troponin I High Sensitivity 15 </=54 ng/L Test 01/06/25 13:12 Range/Units Serum Osmolality 420 H 278-298 mOsm/kg Creatine Kinase 151 46-171 U/L Beta-Hydroxybutyric Acid > 4.500 H < 0.4 mmol/L Microbiology Date/Time Source Procedure Growth Status 01/22/25 17:30 Voided Urine Urine Culture - Preliminary Resulted 01/19/25 16:06 Nose MRSA Screen - Final Complete 01/16/25 19:00 Blood Blood Culture - Final NO GROWTH AFTER 5 DAYS OF INCUBATION. Complete 01/08/25 10:37 Stool Stool Culture - Final Complete 01/08/25 10:37 Stool Shiga Toxin I & II - Final Complete 01/06/25 15:14 Sputum Endotracheal Wash Gram Stain - Final Complete 01/06/25 15:14 Sputum Endotracheal Wash Respiratory Culture - Final Complete Assessment/Plan Problem List: (1) History of diabetic ketoacidosis (2) Hydronephrosis, right Plan renal US jones monitor renal function Plan discussed with: Patient, Other DONATO AGUILAR [employer] FACER Jan 23, 2025 12:08
--- NOTE | 2025-01-23 12:11 | DVH ---
US KIDNEY HISTORY: hydronephrosis COMPARISON: US KIDNEY on DOS: 04/27/23 TECHNIQUE: Transverse and longitudinal grayscale and color doppler images were obtained of the kidney s and bladder. FINDINGS: Right kidney: Size: 11.4 cm Cortical thickness: Normal Echogenicity: Increased Stones: None Masses: None Hydronephrosis: yes Ureters: Not well visualized. Other: None Left kidney: Size: 9.9 cm Cortical thickness: Normal Echogenicity: Increased Stones: None Masses: None Hydronephrosis: None Ureters: Not well visualized. Other: None Bladder: Normal Other: Trace ascites and small pleural effusions. IMPRESSION: Mild to moderate right hydronephrosis, nonspecific. Echogenic kidneys can be seen with medical renal disease.
--- NOTE | 2025-01-23 12:27 | DVH ---
CLINICAL INDICATION: r/o osteomyelitis COMPARISON: MRI MRI R FOOT WO CONTRAST on DOS: 01/09/25 TECHNIQUE: Multiplanar, multisequence MRI of the right foot was performed without intravenous contras t. Contrast: None. INTERPRETATION: Bones: No evidence of acute fracture. There is no marrow replacing lesion on the T1 weighted images to suggest osteomyelitis. Soft tissues: No high-grade tendon or ligament injury. There is edema in the plantar surface of the lateral forefoot deep to the 5th metatarsal and the skin with an overlying dressing. No large fluid c ollection. There is edema in the intrinsic muscles of the forefoot. IMPRESSION: 1. No MR evidence of osteomyelitis. 2. Cellulitis in the lateral forefoot deep to the 5th metatarsal bone where a wound is noted with ove rlying dressing. 3. Edema in the intrinsic muscles of the foot may reflect sequelae of denervation, or myositis.
--- NOTE | 2025-01-23 16:02 | DVH ---
EXAM: XY CHEST XRAY 1 VIEW TECHNIQUE: Single frontal chest radiograph CLINICAL HISTORY: short of breath COMPARISON: XY CHEST PORTABLE on DOS: 01/21/25, XY CHEST PORTABLE on DOS: 01/13/25, XY CHEST PORTABLE on DOS: 01/10/25 Findings/Impression: Frontal chest radiograph demonstrates no acute osseous or superficial soft tissue abnormalities. The trachea is midline. The cardiac silhouette and mediastinum are within normal limits. Multifocal pneumonia, worse from prior. Possible small bilateral pleural effusions No pneumothorax.
[2025-01-23] MEDS: FUROSEMIDE 40 MG/4 ML VIAL IV ONE (16:04)
[2025-01-23] MEDS: DAPTOmycin 300 MG in SODIUM CHL 0.9% 50 ML IV SCH (16:05)
--- NOTE | 2025-01-23 17:08 | DVHPNRES ---
Progress Note Date Seen: Jan 23, 2025 Resident Creating Document: ANABELL ORDOÑEZ RESIDENT Medical Necessity Reason Pt with a Central, PICC or Fol: No The following are medically ne: Jones Catheter Reason for jones catheter: Strict I&O Subjective Review of Systems Patient is a 44-year-old male with known history of type 1 diabetes mellitus who presented on 01/06/2025 via EMS for altered level of consciousness. Per EMS, the patient was found unresponsive with a blood glucose of 931 and received 400 cc IV fluids on route. On arrival he exhibited hypoxia, generalized weakness, increased work of breathing necessitating intubation and mechanical ventilation. Patient was started on IV insulin drip, Zosyn and vancomycin with bicarbonate for severe acidosis. A right femoral central line, midline and peripheral IVs were also placed. Of note, patient has a history of poor adherence to his insulin therapy. Per patient's father, patient lives alone in a trailer and had not been heard from since 01/02/2025. Patient was last hospitalized at the [facility] in November 2024 for DKA. On 01/07/2025, patient developed lip swelling while still intubated, chart review revealed a penicillin allergy. Zosyn was discontinued and patient was treated with methylprednisolone and transitioned to meropenem. Nephrology was consulted for RADHA and hypernatremia. A 01/10/2025, patient had begun to improve and was weaned off sedation and was extubated on 01/12/2025 and transferred telemetry. Antibiotics were discontinued at that time due to uncertainty about the cause of leukocytosis (steroids versus infection). However, WBCs continued to trend upwards and the patient developed low-grade fevers, subsequently restarted on linezolid and aztreonam. Patient has bilateral diabetic foot ulcers, left side more advanced than right. MRI of bilateral extremities shows mild subcutaneous edema, possibly cellulitis but no signs of osteomyelitis. Patient was also noted to have a pressure related ulcer to the left heel. Lower extremity arterial Doppler showed no significant stenosis. Vascular surgery evaluated the ulcers but recommended no interventions at this time. Podiatry already on board. 01/20/2025: Held insulin Lantus, discontinued lispro, mild sliding scale q.4 hours only. Started IV fluconazole for candidal infection in the groin. Podiatry reconsulted for evaluation of bilateral lower extremity ulcers. GI consult for anemia and positive stool occult blood. Discontinued linezolid and aztreonam, started on cefepime, vancomycin and metronidazole. 01/21/25: notes improved but continued nausea, new onset abdominal pain -05/02, localized to mid abdomen. Patient refused MRI owing to abdominal pain, we will reattempt tomorrow. Added metoclopramide qD along with norco and morphine as needed. Blood glucose in 290s, resumed lantus 7units qAM, however, dropping blood sugar by 4pm therefore discontinued lantus again. Pt refuses to eat and has severe aversion to food 01/22/25: improved abdominal pain today -01/30, agreeable to CT abdomen however still refusing MRI L foot. Plan to reattempt tomorrow. new moderate R sided hydronephrosis noted, urology consulted. denies dyspnea, sob. improving nausea. 01/23/2025: Patient notes feeling weaker than yesterday, denies abdominal pain. On physical exam decreased breath sounds more prominent on the left side and some crackles bibasilar. Discontinued vancomycin and started patient on daptomycin. Repeated left foot MRI which showed cellulitis in the lateral 4 for deep to the 5th metatarsal bone marrow wound is noted with overlying dressing, no evidence of osteomyelitis. IV furosemide was increased to 40 mg b.i.d. and patient was transferred to [facility]. Objective vital signs Vital Sign Date Time Temp Pulse Resp B/P (MAP) Pulse Ox O2 Delivery O2 Flow Rate FiO2 01/23/25 16:04 127/63 01/23/25 13:00 120 18 01/23/25 12:43 97.7 87 97.7 01/23/25 08:00 Nasal Cannula* 2 28 Total Intake and Output 01/22/25 01/22/25 01/23/25 15:00 23:00 07:00 Intake Total 250 ml 930 ml 400 ml Output Total 1100 ml 750 ml Balance 250 ml -170 ml -350 ml medications Current Medications Medications Dose Ordered Sig/Zaria Route Start Time Stop Time Status Last Admin Dose Admin Ondansetron HCl 4 mg Q4HP PRN IV 01/06/25 15:00 Hold 01/20/25 10:24 4 MG Acetaminophen 650 mg Q6HP PRN PO 01/06/25 15:00 Nitroglycerin 0.4 mg Q5MINP PRN SL 01/06/25 16:15 Famotidine 20 mg Q12HR IV 01/07/25 10:00 UNV Diagnostic Test (Pha) 1 strip IQ4HR 01/07/25 08:00 Cancel Calcium Gluconate/ Sodium Chloride 50 ml @ 100 mls/hr Q30M IV 01/08/25 17:30 01/08/25 18:29 Cancel Pantoprazole Sodium 40 mg BID IV 01/10/25 10:00 01/23/25 09:51 40 MG Throat Lozenges 1 reza Q2HPRN PRN MT 01/12/25 22:45 Enteral Nutritional Formula 240 ml TIDWM PO 01/17/25 18:00 01/23/25 12:00 240 ML Diphenhydramine HCl 50 mg Q8HR PRN IV 01/20/25 16:15 01/21/25 07:53 50 MG Metronidazole 100 ml @ 100 mls/hr Q8HR IV 01/20/25 22:00 01/23/25 14:45 100 MLS/HR Dextrose 50 ml UD PRN IV 01/20/25 16:45 01/21/25 16:29 50 ML Insulin Glargine 7 units QAM SC 01/21/25 08:30 Hold 01/21/25 08:52 7 UNITS Metoclopramide HCl 10 mg Q8HPRN PRN IV 01/21/25 16:30 Morphine Sulfate 1 mg Q4HP PRN IV 01/21/25 16:30 01/23/25 10:42 1 MG Acetaminophen/ Hydrocodone Bitart 1 tab Q6HPRN PRN PO 01/21/25 16:30 Amlodipine Besylate 10 mg DAILY PO 01/22/25 10:00 01/23/25 09:53 10 MG Diagnostic Test (Pha) 1 strip Q2HR 01/21/25 20:00 01/23/25 16:00 1 STRIP Fluconazole 200 mg DAILY PO 01/23/25 10:00 01/23/25 09:52 200 MG Cefepime HCl 50 ml @ 12.5 mls/hr Q12H IV 01/23/25 18:00 Daptomycin 300 mg/ Sodium Chloride 50 ml @ 100 mls/hr DAILY IV 01/23/25 15:00 01/23/25 16:05 100 MLS/HR Furosemide 40 mg BIDD IV 01/23/25 18:00 Examination General Appearance: Cooperative. Malnourished, in mild distress Head Exam: Normal inspection. No vision in right eye, decreased vision in left eye Pulmonary/Respiratory: Chest non-tender. decreased bilateral breath sounds, no crackles, no wheezing. Cardiovascular/Chest: Tachycardic. No murmurs. No JVD. Abdominal Exam: Normal bowel sounds. Soft. normal abdomen, no visible veins, mid-abdominal tenderness to minimal palpation No hepatospenomegaly. No masses Lower extremities: Negative lower extremity edema. Left heel pressure ulcer noted. Multiple diabetic foot ulcers on bilateral feet, largest 1 noted on left plantar foot Thoughts/Psych: Normal thought pattern. Appropriate mood and affect Skin Exam: improving groin lesions, redness noted along right gluteal area laboratory and microbiology Laboratory Tests 01/23/25 08:09 01/23/25 04:41 Test 01/23/25 04:41 Range/Units Serum Glucose 128 H 74-106 mg/dL Microbiology Date/Time Source Procedure Growth Status 01/22/25 17:30 Voided Urine Urine Culture - Preliminary Resulted 01/19/25 16:06 Nose MRSA Screen - Final Complete 01/16/25 19:00 Blood Blood Culture - Final NO GROWTH AFTER 5 DAYS OF INCUBATION. Complete 01/08/25 10:37 Stool Stool Culture - Final Complete 01/08/25 10:37 Stool Shiga Toxin I & II - Final Complete 01/06/25 15:14 Sputum Endotracheal Wash Gram Stain - Final Complete 01/06/25 15:14 Sputum Endotracheal Wash Respiratory Culture - Final Complete Labs and/or images reviewed: Labs reviewed by me, Image(s) reviewed by me Problem List/Assessment/Plan Problem List/Assessment/Plan Neurology # acute metabolic encephalopathy likely due to DKA vs Sepsis, improving - head CT from 01/07/2025: No acute territorial infarct, intracranial hemorrhage or mass effect - head CT from 01/19/2025: No acute intracranial abnormality - monitor Cardiovascular # runs of AFib on EKG # prolonged QTC # Essential hypertension - avoiding QT prolonging drugs - echocardiogram from 07/20/2022: Overall preserved ventricular systolic function. EF 60%. Grade 1 diastolic dysfunction. - increased amlodipine to 10mg qD - repeat echo - monitor Respiratory # Community acquired pneumonia, Gram-positive versus Gram-negative # Acute hypoxic respiratory failure due to above, on 10L oxymizer today 01/23/25 # moderate-large b/l Pleural effusions - CXR 01/08/25: Bibasilar atelectasis or pneumonia. - CXR 01/20/25: Patchy bilateral airspace disease, [id number], slightly increased - previously on meropenem and vancomycin, stopped on 01/12/2025 - started on aztreonam on 01/17/2025, linezolid 01/16/2025 - discontinued aztreonam and linezolid on 01/20/2025 - started cefepime, vancomycin and metronidazole on 01/20/2025 - discontinued vancomycin 01/23/2025 GI # Acute intractable abdominal pain (01/21/25), improved # Microcytic anemia possibly 2' to ?LGI bleed; Hb 7.8 # Moderate abdominopelvic ascites # Peptic ulcer prophylaxis - stool occult blood positive - GI consult - CT abdomen pelvis from 01/07/2025: Nonspecific periportal edema. Incidental finding. -Pantoprazole 40 mg IV daily - serum lipase 113 - repeat CT abdomen pelvis (01/22/25): Moderate to large bilateral pleural effusions with patchy and consolidative infiltrates in the lung bases likely a combination of pneumonia and atelectasis.mLow to moderate volume abdominopelvic ascites and diffuse subcutaneous edema suggestive of anasarca. Moderate right hydronephrosis without visualization of hydroureter or obstructing calculi. This appearance is new versus CT scan dated 01/07/2025. Gallbladder hydrops without visualization of gallstones. This appearance may indicate acalculous cholecystitis. Fluid-filled colon with multiple air-fluid levels present, possibly related to diarrheal illness. No evidence of bowel obstruction, acute appendicitis, or other acute process in the abdomen or pelvis. Nephrology/ # RADHA likely hemodynamically mediated/VMN on possible CKD stage 3 # Anasarca due to above # severe hypoalbuminemia, serum albumin 2 # Diabetic nephropathy likely # Severe hypokalemia, improving # hypernatremia, now improved # asymptomatic hypocalcemia, corrected Ca 8.2mg/dl # moderate right-sided hydronephrosis - treating the underlying sepsis - U protein excretion est 7.1g/day - IV K rider 40mEq - 50 mEq PO potassium x2 - IV lasix 40mg daily - CT abdomen pelvis: Moderate to large bilateral pleural effusions with patchy and consolidative infiltrates in the lung bases likely a combination of pneumonia and atelectasis.Low to moderate volume abdominopelvic ascites and diffuse subcutaneous edema suggestive of anasarca. Moderate right hydronephrosis without visualization of hydroureter or obstructing calculi. This appearance is new versus CT scan dated 01/07/2025. Gallbladder hydrops without visualization of gallstones. This appearance may indicate acalculous cholecystitis. Fluid- filled colon with multiple air-fluid levels present, possibly related to diarrheal illness. No evidence of bowel obstruction, acute appendicitis, or other acute process in the abdomen or pelvis. - urology consulted - reconsulted nephrology Infectious disease # bilateral lower extremity cellulitis # left lower extremity diabetic foot ulcer on the plantar aspect growing Staph aureus # Sepsis due to above # left heel pressure ulcer # ruled out DVT # Fungal cutaneous infection in b/l groin - MRI from 01/09/2025 shows Mild diffuse subcutaneous soft-tissue edema; possibly cellulitis. No bone marrow edema is present to suggest fracture or acute osteomyelitis. - bilateral lower extremity arterial Doppler: No hemodynamically significant stenosis based on peak systolic velocity criteria. - bilateral lower extremity venous Doppler: No right or left femoropopliteal venous thrombosis - discontinued aztreonam and linezolid on 01/20/2025 - started cefepime, vancomycin and metronidazole on 01/20/2025 - podiatry on board - left foot MRI: No MR evidence of osteomyelitis. Cellulitis and lateral 4 for deep of the 5th metatarsal bone were wound is noted overlying dressing. Edema in the intrinsic muscle of the foot may reflect sequelae of denervation, or myositis. - Fluconazole - discontinued vancomycin 01/23/2025, started patient on daptomycin on 01/23/2025 Hem/onc # microcytic anemia # thrombocytosis likely secondary to sepsis - s/p 1 PRBC - GI on board - monitor Endocrine # DKA, now resolved # recurrent episodes of hypoglycemia # severe protein calorie malnutrition - discontinued lispro - holding insulin Lantus as patient continues to get hypoglycemic - mild sliding scale insulin - mechanical soft diet to encourage p.o. intake - Nutritional supplementation ensure w meals Diet - pureed diet Lines - RUE midline placed 01/22/25 - R midline on 01/20/25 Transeferred to OXANA 01/23/25 Physical therapy ordered critical care time excluding procedures was 56 mins Code status discussed greater than 20 minutes: Full CODE STATUS. Plan discussed with Dr. Dan Plan discussed with: Patient, Other (RN) My Orders My Orders Orders - ANABELL ORDOÑEZ Procedure Category Date Status Time * Urology Consult CONS 01/22/25 Transmitted 17:14 Mri L Foot Wo Contrast MRI 01/23/25 Resulted 08:00 Clear Liq Diet DIET 01/23/25 Transmitted Breakfast Dietary Evaluation Review Recommendations by RD: Increase Calorie Intake Comments: Nutrition Recommendation: 1) Vital AF 1.2Cal @ 25ml/hr along with Pro-stat 1 pk BID. start @ 20ml/hr, increase 10ml/hr Q4H until goal is reached. TF @ goal volume along with propofol, IV D5wNS0.45%, and Pro-stat provides 1684 kcal (100% energy needs), 75gm protein (100% protein needs), 487ml free water. 2) TPN to meet 75% estimated needs if remains NPO 3) Bryce 1 pk BID for DFU Expected Outcomes/Goals: DFU to improve To maintain/gain weight To meet at least 75% estimated needs Fu 2-3 days Interpretation of weight loss: up to 5% in 1 month Muscle Mass (Severe): Mod to Severe Depletion Protein Calorie Malnutrition: Non-Severe Is there a minimum of two crit: Yes Date of Service: Jan 23, 2025 Billing Provider: AMY DAN MD Common Visit Codes: [id number] CARE 30-74 MIN ANABELL ORDOÑEZ Jan 23, 2025 17:08 AMY DAN MD Jan 27, 2025 16:25
[2025-01-23] MEDS ORDERED: FUROSEMIDE 40 MG/4 ML VIAL IV SCH (18:00)
[2025-01-23] MEDS: FUROSEMIDE 100 MG/10ML VIAL IV SCH (19:00)
[2025-01-23 19:22] LABS: Anion Gap 20.00001 (5-15); BUN/Creatinine Ratio 9.2 (10.0-20.0); Bilirubin, Total 0.4 mg/dL (0.2-1.0)
[2025-01-23 19:26] LABS: Alanine Aminotransferase < 9 U/L (7-40); Albumin 2.4 g/dL (3.2-4.8); Alkaline Phosphatase 217 U/L (46-116); Blood Urea Nitrogen 29 mg/dL (9-23); Calcium 7.6 mg/dL (8.7-10.4); Chloride 117 mmol/L (98-107); Glucose 176 mg/dL (74-106); Magnesium 1.4 mg/dL (1.6-2.6); Potassium 3.0 mmol/L (3.5-5.1); Sodium 147 mmol/L (136-145); Total Protein 5.3 g/dL (5.7-8.2)
[2025-01-23 19:28] LABS: Carbon Dioxide < 10 mmol/L (20-31)
[2025-01-23 19:52] LABS: Base Excess -16.8 mmol/L (-2.0-3.0)
--- NOTE | 2025-01-23 20:40 | DVHNC2 ---
Other Procedure Procedure Left-sided thoracentesis Indication Bilateral pleural effusion Anesthetic Local anesthesia Informed consent obtained: Yes Risks, benefits, and alternati: Yes Notes A time out was performed and the chest x-ray was reviewed, the appropriate side was confirmed and marked. My hands were washed immediately prior to the procedure. I wore a surgical cap, mask with protective eyewear, sterile gown and sterile gloves throughout the procedure. The patient was prepped and draped in a sterile manner using chlorhexidine scrub after the appropriate level was percussed and confirmed by ultrasound. 1% lidocaine was used to anesthesize the skin, subcutaneous tissue, superior aspect of the rib periosteum and parietal pleura. A finder needle was then introduced over the superior aspect of the rib to locate the pleural fluid; _ colored fluid was aspirated at a depth of approximately _ cm. A 10-blade scalpel was used to angel the skin at the insertion site. The Jmyg-d-Achtswac needle was then introduced through the skin incision into the pleural space using negative aspiration pressure and the red colormetric indicator to confirm appropriate positioning of the needle. The thoracentesis catheter was then threaded without difficulty 900 ml of colored fluid was removed without difficulty. The catheter was then removed. No immediate complications were noted during the procedure. post-procedure bedside ultrasound ruled out pneumothorax. chest x-ray is pending at the time of this note. The fluid will be sent for studies. Estimated blood loss is less than 5 ml. Date of Service: Jan 23, 2025 Billing Provider: KEISHA PENN MD Common Visit Codes: PROCEDURE ONLY Procedure Codes: [id number] W/PUNCT NGA GARCIA RESIDENT Jan 23, 2025 20:40
[2025-01-23] MEDS: POTASSIUM EFFERVESENT TAB 25 MEQ PO ONE (20:59)
[2025-01-23] MEDS: SODIUM BICARB 8.4% 50Meq/50ml SYR Vial IV ONE (20:59)
[2025-01-23] MEDS: POTASSIUM CHL 20MEQ/100ML 100 ML IV ONE (21:00)
[2025-01-23] MEDS: POTASSIUM CHL 20MEQ/100ML 100 ML IV SCH (22:35)
[2025-01-23] MEDS: MAGNESIUM SULFATE 1GM/100ML 100 ML IV SCH (22:54)
[2025-01-23] MEDS ORDERED: DEXTROSE (50%) 50ML SYRG IV PRN (23:00)
[2025-01-24] VITALS (91 sets, daily range): BP systolic 86–122; BP diastolic 39–65; PULSE 91–127; RESP 13–43; TEMP 94.3–99.1; O2SAT 65–100
[2025-01-24 00:02] LABS: Base Excess -15.9 mmol/L (-2.0-3.0)
[2025-01-24] MEDS: INSULIN DRIP 100 UNIT/100ML 100 ML IV SCH (00:02)
[2025-01-24] MEDS: DEXTROSE 10% 250 ML IV ONE (00:02)
[2025-01-24] MEDS: ACCU-CHEK COMFORT CURVE STRIP VI SCH ×2 (00:07→14:00)
[2025-01-24] MEDS: SODIUM BICARB 8.4% 50Meq/50ml SYR Vial IV ONE ×3 (00:20→11:36)
[2025-01-24] MEDS: FUROSEMIDE 100 MG/10ML VIAL IV ONE (00:34)
[2025-01-24 02:33] LABS: Anion Gap 19 (5-15); BUN/Creatinine Ratio 8.0 (10.0-20.0); Bilirubin, Total 0.3 mg/dL (0.2-1.0)
[2025-01-24 02:34] LABS: Alanine Aminotransferase < 9 U/L (7-40); Albumin 1.9 g/dL (3.2-4.8); Alkaline Phosphatase 181 U/L (46-116); Blood Urea Nitrogen 26 mg/dL (9-23); Calcium 6.7 mg/dL (8.7-10.4); Carbon Dioxide 11 mmol/L (20-31); Chloride 117 mmol/L (98-107); Glucose 210 mg/dL (74-106); Potassium 3.4 mmol/L (3.5-5.1); Sodium 147 mmol/L (136-145); Total Protein 4.4 g/dL (5.7-8.2)
[2025-01-24] MEDS: POTASSIUM EFFERVESENT TAB 25 MEQ PO ONE (03:05)
[2025-01-24] MEDS: ETOMIDATE (2MG/ML) 20ML VIAL IV ONE ×2 (04:12→04:16)
[2025-01-24] MEDS: ROCURONIUM 10MG/ML 10ML VIAL IV ONE ×2 (04:12→04:16)
[2025-01-24] MEDS: fentaNYL Drip 2500mCg/250mlNS 250 ML IV ONE (04:12)
[2025-01-24] MEDS: MIDAZOLAM DRIP 50 mg/50mL 50 ML IV ONE (04:13)
[2025-01-24] MEDS: MIDAZOLAM DRIP 50 mg/50mL 50 ML IV SCH (04:14)
[2025-01-24] MEDS: fentaNYL Drip 2500mCg/250mlNS 250 ML IV SCH (04:15)
--- NOTE | 2025-01-24 04:16 | DVHNC2 ---
Intubation Indication: Respiratory Insufficiency Prep: Preoxygenation Pretreated with: Analgesia, Sedation Medicated with: Succinylcholine, Other (ETOMODATE) Intubation Approach: Orotracheal Intubation size: cm (26) Informed consent obtained: Yes Risks/benefits/alt described: Yes Notes A time out was performed. My hands were washed immediately prior to the procedure. I wore a surgical cap, mask with protective eyewear, gown and gloves throughout the procedure. The patient was placed on a proof coins inspector including continuous pulse oximetry. Rapid Sequence Intubation was conducted. The patient received etomidate 20 mg for induction and rocuronium 80 mg for adequate paralysis. Cricoid pressure was maintained from time induction agent was given to time of cuff balloon inflation. Using GlideScope and a size 8 endotracheal tube with stylet, the patient was intubated on the 1 attempt. The stylet was removed and cuff balloon was inflated. Appropriate endotracheal tube position was confirmed by direct visualization of vocal cord passage, fogging of the tub e, CO2 colormetric indicator and symmetric breath sounds. The tube was secured at 26 cm at the lips. Post intubation chest x-ray is pending at this time. Date of Service: Jan 24, 2025 Billing Provider: CASS HASSAN MD Common Visit Codes: PROCEDURE ONLY Procedure Codes: [id number] MEGHANA BAUGH RESIDENT Jan 24, 2025 04:16
--- NOTE | 2025-01-24 04:56 | DVH ---
CHEST RADIOGRAPH Indication: INTUBATION/NGT PLACEMENT Technique: Single frontal chest radiograph Comparison: XY CHEST XRAY 1 VIEW on DOS: 01/23/25, XY CHEST PORTABLE on DOS: 01/21/25, XY CHEST PORTABLE on DOS: 01/13/25, XY CHEST PORTABLE on DOS: 01/10/25, XY CHEST XRAY 1 VIEW on DOS: 01/09/25, XY CHEST XR AY 1 VIEW on DOS: 01/23/25 FINDINGS: Frontal chest radiograph demonstrates no acute osseous or superficial soft tissue abnormalities. The trachea is midline. The cardiac silhouette and mediastinum are within normal limits. Multifocal pneum onia, worse from prior. Possible small bilateral pleural effusions No pneumothorax. ET tube tip 1 cm from nata. NG tube in stomach IMPRESSION: No interval change.
[2025-01-24 04:57] LABS: Hemoglobin 7.5 g/dL (13.5-17.5); Nucleated Red Blood Cells % 0.0 %
[2025-01-24 04:59] LABS: Hematocrit 24.7 % (41.0-53.0); Mean Corpuscular Hemoglobin 23.0 pg (28.0-32.0); Mean Corpuscular Volume 76.1 fL (80.0-100.0)
--- NOTE | 2025-01-24 05:02 | DVH ---
CHEST RADIOGRAPH Indication: chf Technique: Single frontal chest radiograph Comparison: XY CHEST XRAY 1 VIEW on DOS: 01/23/25, XY CHEST PORTABLE on DOS: 01/21/25, XY CHEST PORTABLE on DOS: 01/13/25, XY CHEST PORTABLE on DOS: 01/10/25, XY CHEST XRAY 1 VIEW on DOS: 01/09/25, XY CHEST XR AY 1 VIEW on DOS: 01/23/25 FINDINGS: Frontal chest radiograph demonstrates no acute osseous or superficial soft tissue abnormalities. The trachea is midline. The cardiac silhouette and mediastinum are within normal limits. Multifocal pneum onia, worse from prior. Possible small bilateral pleural effusions No pneumothorax. Endotracheal tube tip 1 cm from the nata. Nasogastric tube tip in the stomach. IMPRESSION: No interval change.
[2025-01-24 05:10] LABS: Anion Gap 16 (5-15)
[2025-01-24 05:16] LABS: BUN/Creatinine Ratio 8.4 (10.0-20.0); Magnesium 1.8 mg/dL (1.6-2.6)
[2025-01-24 05:25] LABS: Blood Urea Nitrogen 28 mg/dL (9-23); Calcium 6.8 mg/dL (8.7-10.4); Carbon Dioxide 14 mmol/L (20-31); Chloride 118 mmol/L (98-107); Glucose 153 mg/dL (74-106); Potassium 3.3 mmol/L (3.5-5.1); Sodium 148 mmol/L (136-145)
[2025-01-24] MEDS: NOREPINEPHRINE 8 MG/250ML KIT 250 ML IV SCH (05:33)
[2025-01-24 05:49] LABS: Anisocytosis Slight
[2025-01-24 06:19] LABS: Base Excess -14.6 mmol/L (-2.0-3.0)
[2025-01-24] MEDS: MAGNESIUM OXIDE 400 MG TAB GT ONE (06:49)
[2025-01-24] MEDS: POTASSIUM EFFERVESENT TAB 25 MEQ GT ONE (06:49)
[2025-01-24 08:37] LABS: Base Excess -7.4 mmol/L (-2.0-3.0)
[2025-01-24 09:21] LABS: Anion Gap 13 (5-15); Carbon Dioxide 20 mmol/L (20-31)
[2025-01-24 09:26] LABS: BUN/Creatinine Ratio 8.9 (10.0-20.0)
[2025-01-24 09:29] LABS: Blood Urea Nitrogen 30 mg/dL (9-23); Calcium 7.5 mg/dL (8.7-10.4); Chloride 118 mmol/L (98-107); Glucose 124 mg/dL (74-106); Potassium 3.4 mmol/L (3.5-5.1); Sodium 151 mmol/L (136-145)
[2025-01-24 10:28] LABS: Magnesium 1.7 mg/dL (1.6-2.6)
[2025-01-24 11:26] LABS: INR 2.83 (0.9-1.15); Partial Thromboplastin Time 43.4 SEC (24.5-34.5); Prothrombin Time 27.1 sec (9.3-11.8)
[2025-01-24] MEDS: D5W/SOD CHL 0.45% 1,000 ML IV SCH (12:43)
--- NOTE | 2025-01-24 13:03 | DVHPN2 ---
Progress Note - Dictate Date Seen: Jan 24, 2025 Medical Necessity Reason Pt with a Central, PICC or Fol: No The following are medically ne: Jones Catheter Reason for jones catheter: Strict I&O Subjective Nephrology asked to reconsult due to worsening kidney function, oliguria, hypoxia respiratory failure. Urine volumes have been oliguric despite high-dose diuretic therapy. Patient has required significant dosing of IV bicarbonate for management of acidemia. Currently requiring vasopressor support. vital signs Vital Sign Date Time Temp Pulse Resp B/P (MAP) Pulse Ox O2 Delivery O2 Flow Rate FiO2 01/24/25 11:32 113 18 114/55 (74) 70 100 01/24/25 08:00 Non-Rebreather 12 01/24/25 07:00 96.8 206.2 Total Intake and Output 01/23/25 01/23/25 01/24/25 15:00 23:00 07:00 Intake Total 100 ml 470 ml 911.00 ml Output Total 100 ml 150 ml Balance 100 ml 370 ml 761.00 ml medications Current Medications Medications Dose Ordered Sig/Zaria Route Start Time Stop Time Status Last Admin Dose Admin Ondansetron HCl 4 mg Q4HP PRN IV 01/06/25 15:00 Hold 01/20/25 10:24 4 MG Famotidine 20 mg Q12HR IV 01/07/25 10:00 UNV Diagnostic Test (Pha) 1 strip IQ4HR 01/07/25 08:00 Cancel Calcium Gluconate/ Sodium Chloride 50 ml @ 100 mls/hr Q30M IV 01/08/25 17:30 01/08/25 18:29 Cancel Pantoprazole Sodium 40 mg BID IV 01/10/25 10:00 01/24/25 11:36 40 MG Throat Lozenges 1 reza Q2HPRN PRN MT 01/12/25 22:45 Diphenhydramine HCl 50 mg Q8HR PRN IV 01/20/25 16:15 01/21/25 07:53 50 MG Metronidazole 100 ml @ 100 mls/hr Q8HR IV 01/20/25 22:00 01/24/25 05:25 100 MLS/HR Dextrose 50 ml UD PRN IV 01/20/25 16:45 01/21/25 16:29 50 ML Insulin Glargine 7 units QAM SC 01/21/25 08:30 Hold 01/21/25 08:52 7 UNITS Metoclopramide HCl 10 mg Q8HPRN PRN IV 01/21/25 16:30 Fluconazole 200 mg DAILY PO 01/23/25 10:00 01/24/25 11:36 200 MG Cefepime HCl 50 ml @ 12.5 mls/hr Q12H IV 01/23/25 18:00 01/24/25 06:43 12.5 MLS/HR Daptomycin 300 mg/ Sodium Chloride 50 ml @ 100 mls/hr DAILY IV 01/23/25 15:00 01/24/25 10:00 100 MLS/HR Furosemide 80 mg BIDD IV 01/23/25 18:00 01/24/25 06:50 80 MG Insulin Human (Reg)/Sodium Chloride 100 ml @ 0.5 mls/hr Q24H IV 01/23/25 23:00 01/24/25 00:02 2 MLS/HR Dextrose 50 ml UD PRN IV 01/23/25 23:00 Diagnostic Test (Pha) 1 strip Q90MIN 01/24/25 00:00 01/24/25 12:12 1 STRIP Midazolam HCl 50 ml @ 1 mls/hr Q24H IV 01/24/25 04:00 01/24/25 04:14 1 MLS/HR Fentanyl Citrate 250 ml @ 2.5 mls/hr Q24H IV 01/24/25 04:00 01/24/25 04:15 2.5 MLS/HR Norepinephrine Bitartrate 250 ml @ 3.75 mls/hr Q24H IV 01/24/25 04:30 01/24/25 05:33 3.75 MLS/HR Dextrose/Sodium Chloride 1,000 ml @ 50 mls/hr Q20H IV 01/24/25 12:30 01/24/25 12:43 50 MLS/HR objective Gen: Intubated, cachectic lungs: cta anteriorly cvs: no rub ext: + edema laboratory and microbiology Laboratory Tests 01/24/25 08:42 01/24/25 04:43 Test 01/24/25 08:42 Range/Units Serum Glucose 124 H 74-106 mg/dL Assessment/Plan Acute kidney injury superimposed Chronic Kidney Disease stage IIIB secondary hemodynamic mediated ATN, FeNa > 2% - recurrent Acute hypoxic respiratory failure, patient extubated Diabetic/ ? Starvation ketoacidosis Hypernatremia due to dehydration Hypocalcemia Hypomagnesemia Hypokalemia Anemia of chronic kidney disease Recommendations - agree with IV alkali therapy - given progressive decline in kidney function, oliguria, severe acidemia requiring significant medical management, and ongoing hemodynamic instability That portends higher risk for progressive kidney function declined. Recommendation will be to consider initiation of kidney replacement therapy. - tentatively for dialysis today. Dietary Evaluation Review Recommendations by RD: Increase Calorie Intake Comments: Nutrition Recommendation: 1) Vital AF 1.2Cal @ 25ml/hr along with Pro-stat 1 pk BID. start @ 20ml/hr, increase 10ml/hr Q4H until goal is reached. TF @ goal volume along with propofol, IV D5wNS0.45%, and Pro-stat provides 1684 kcal (100% energy needs), 75gm protein (100% protein needs), 487ml free water. 2) TPN to meet 75% estimated needs if remains NPO 3) Bryce 1 pk BID for DFU Expected Outcomes/Goals: DFU to improve To maintain/gain weight To meet at least 75% estimated needs Fu 2-3 days Interpretation of weight loss: up to 5% in 1 month Muscle Mass (Severe): Mod to Severe Depletion Protein Calorie Malnutrition: Non-Severe Is there a minimum of two crit: Yes Plan discussed with: Other CARLYN MOBLEY MD Jan 24, 2025 13:03
[2025-01-24] MEDS: D5W 5% 1,000 ML IV SCH (13:31)
--- NOTE | 2025-01-24 13:32 | DVHPNRES ---
Progress Note Date Seen: Jan 24, 2025 Resident Creating Document: ANABELL ORDOÑEZ RESIDENT Medical Necessity Reason Pt with a Central, PICC or Fol: No The following are medically ne: Jones Catheter Reason for jones catheter: Strict I&O Subjective Review of Systems Patient is a 44-year-old male with known history of type 1 diabetes mellitus who presented on 01/06/2025 via EMS for altered level of consciousness. Per EMS, the patient was found unresponsive with a blood glucose of 931 and received 400 cc IV fluids on route. On arrival he exhibited hypoxia, generalized weakness, increased work of breathing necessitating intubation and mechanical ventilation. Patient was started on IV insulin drip, Zosyn and vancomycin with bicarbonate for severe acidosis. A right femoral central line, midline and peripheral IVs were also placed. Of note, patient has a history of poor adherence to his insulin therapy. Per patient's father, patient lives alone in a trailer and had not been heard from since 01/02/2025. Patient was last hospitalized at the [facility] in November 2024 for DKA. On 01/07/2025, patient developed lip swelling while still intubated, chart review revealed a penicillin allergy. Zosyn was discontinued and patient was treated with methylprednisolone and transitioned to meropenem. Nephrology was consulted for RADHA and hypernatremia. A 01/10/2025, patient had begun to improve and was weaned off sedation and was extubated on 01/12/2025 and transferred telemetry. Antibiotics were discontinued at that time due to uncertainty about the cause of leukocytosis (steroids versus infection). However, WBCs continued to trend upwards and the patient developed low-grade fevers, subsequently restarted on linezolid and aztreonam. Patient has bilateral diabetic foot ulcers, left side more advanced than right. MRI of bilateral extremities shows mild subcutaneous edema, possibly cellulitis but no signs of osteomyelitis. Patient was also noted to have a pressure related ulcer to the left heel. Lower extremity arterial Doppler showed no significant stenosis. Vascular surgery evaluated the ulcers but recommended no interventions at this time. Podiatry already on board. 01/20/2025: Held insulin Lantus, discontinued lispro, mild sliding scale q.4 hours only. Started IV fluconazole for candidal infection in the groin. Podiatry reconsulted for evaluation of bilateral lower extremity ulcers. GI consult for anemia and positive stool occult blood. Discontinued linezolid and aztreonam, started on cefepime, vancomycin and metronidazole. 01/21/25: notes improved but continued nausea, new onset abdominal pain 9-05/02, localized to mid abdomen. Patient refused MRI owing to abdominal pain, we will reattempt tomorrow. Added metoclopramide qD along with norco and morphine as needed. Blood glucose in 290s, resumed lantus 7units qAM, however, dropping blood sugar by 4pm therefore discontinued lantus again. Pt refuses to eat and has severe aversion to food 01/22/25: improved abdominal pain today 6-01/30, agreeable to CT abdomen however still refusing MRI L foot. Plan to reattempt tomorrow. new moderate R sided hydronephrosis noted, urology consulted. denies dyspnea, sob. improving nausea. 01/23/2025: Patient notes feeling weaker than yesterday, denies abdominal pain. On physical exam decreased breath sounds more prominent on the left side and some crackles bibasilar. Discontinued vancomycin and started patient on daptomycin. Repeated left foot MRI which showed cellulitis in the lateral 4 for deep to the 5th metatarsal bone marrow wound is noted with overlying dressing, no evidence of osteomyelitis. IV furosemide was increased to 40 mg b.i.d. and patient was transferred to D . 01/24/2025: Overnight patient was intubated due to increasing respiratory distress, patient also underwent thoracentesis with 900 mL of fluid removed on the left side. For starvation/diabetic ketoacidosis, patient was started on an insulin drip and D10, gap was closed and bicarb was stabilized at 20. Blood glucose was 100 with a insulin drip was stopped, patient was started on D5 water at 50 cc/hours. Nephrology increased IV Lasix to 80 mg b.i.d. along with plan for renal replacement therapy tentatively in the p.m.. Objective vital signs Vital Sign Date Time Temp Pulse Resp B/P (MAP) Pulse Ox O2 Delivery O2 Flow Rate FiO2 01/24/25 11:32 113 18 114/55 (74) 70 100 01/24/25 08:00 Non-Rebreather 12 01/24/25 07:00 96.8 206.2 Total Intake and Output 01/23/25 01/23/25 01/24/25 14:59 22:59 06:59 Intake Total 100 ml 470 ml 890.25 ml Output Total 100 ml 150 ml Balance 100 ml 370 ml 740.25 ml medications Current Medications Medications Dose Ordered Sig/Zaria Route Start Time Stop Time Status Last Admin Dose Admin Ondansetron HCl 4 mg Q4HP PRN IV 01/06/25 15:00 Hold 01/20/25 10:24 4 MG Famotidine 20 mg Q12HR IV 01/07/25 10:00 UNV Diagnostic Test (Pha) 1 strip IQ4HR 01/07/25 08:00 Cancel Calcium Gluconate/ Sodium Chloride 50 ml @ 100 mls/hr Q30M IV 01/08/25 17:30 01/08/25 18:29 Cancel Pantoprazole Sodium 40 mg BID IV 01/10/25 10:00 01/24/25 11:36 40 MG Throat Lozenges 1 reza Q2HPRN PRN MT 01/12/25 22:45 Diphenhydramine HCl 50 mg Q8HR PRN IV 01/20/25 16:15 01/21/25 07:53 50 MG Metronidazole 100 ml @ 100 mls/hr Q8HR IV 01/20/25 22:00 01/24/25 05:25 100 MLS/HR Dextrose 50 ml UD PRN IV 01/20/25 16:45 01/21/25 16:29 50 ML Insulin Glargine 7 units QAM SC 01/21/25 08:30 Hold 01/21/25 08:52 7 UNITS Metoclopramide HCl 10 mg Q8HPRN PRN IV 01/21/25 16:30 Fluconazole 200 mg DAILY PO 01/23/25 10:00 01/24/25 11:36 200 MG Cefepime HCl 50 ml @ 12.5 mls/hr Q12H IV 01/23/25 18:00 01/24/25 06:43 12.5 MLS/HR Daptomycin 300 mg/ Sodium Chloride 50 ml @ 100 mls/hr DAILY IV 01/23/25 15:00 01/24/25 10:00 100 MLS/HR Furosemide 80 mg BIDD IV 01/23/25 18:00 01/24/25 06:50 80 MG Midazolam HCl 50 ml @ 1 mls/hr Q24H IV 01/24/25 04:00 01/24/25 04:14 1 MLS/HR Fentanyl Citrate 250 ml @ 2.5 mls/hr Q24H IV 01/24/25 04:00 01/24/25 04:15 2.5 MLS/HR Norepinephrine Bitartrate 250 ml @ 3.75 mls/hr Q24H IV 01/24/25 04:30 01/24/25 05:33 3.75 MLS/HR Diagnostic Test (Pha) 1 strip Q2HR 01/24/25 14:00 Dextrose 1,000 ml @ 50 mls/hr Q20H IV 01/24/25 13:30 Examination General Appearance: Intubated and sedated. Malnourished, in mild distress Head Exam: Normal inspection. No vision in right eye, decreased vision in left eye, minimally reactive pupils Pulmonary/Respiratory: Chest non-tender. decreased bilateral breath sounds, no crackles, no wheezing. Cardiovascular/Chest: Tachycardic. No murmurs. No JVD. Abdominal Exam: Normal bowel sounds. Soft. normal abdomen, no visible veins, nontender No hepatospenomegaly. No masses Lower extremities: Negative lower extremity edema. Left heel pressure ulcer noted. Multiple diabetic foot ulcers on bilateral feet, largest 1 noted on left plantar foot Thoughts/Psych: Normal thought pattern. Appropriate mood and affect Skin Exam: improving groin lesions, redness noted along right gluteal area laboratory and microbiology Laboratory Tests 01/24/25 08:42 01/24/25 04:43 Test 01/24/25 08:42 Range/Units Serum Glucose 124 H 74-106 mg/dL Microbiology Date/Time Source Procedure Growth Status 01/23/25 20:30 Pleural Fluid Gram Stain - Final Resulted 01/23/25 20:30 Pleural Fluid Body Fluid Culture Pending Resulted 01/22/25 17:30 Voided Urine Urine Culture - Preliminary Resulted 01/19/25 16:06 Nose MRSA Screen - Final Complete 01/16/25 19:00 Blood Blood Culture - Final NO GROWTH AFTER 5 DAYS OF INCUBATION. Complete 01/08/25 10:37 Stool Stool Culture - Final Complete 01/08/25 10:37 Stool Shiga Toxin I & II - Final Complete 01/06/25 15:14 Sputum Endotracheal Wash Gram Stain - Final Complete 01/06/25 15:14 Sputum Endotracheal Wash Respiratory Culture - Final Complete Labs and/or images reviewed: Labs reviewed by me, Image(s) reviewed by me Problem List/Assessment/Plan Problem List/Assessment/Plan Neurology # acute metabolic encephalopathy likely due to DKA vs Sepsis, improving - head CT from 01/07/2025: No acute territorial infarct, intracranial hemorrhage or mass effect - head CT from 01/19/2025: No acute intracranial abnormality - monitor Cardiovascular # runs of AFib on EKG # prolonged QTC # Essential hypertension - avoiding QT prolonging drugs - echocardiogram from 07/20/2022: Overall preserved ventricular systolic function. EF 60%. Grade 1 diastolic dysfunction. - increased amlodipine to 10mg qD - repeat echo - monitor Respiratory # Community acquired pneumonia, Gram-positive versus Gram-negative # Acute hypoxic respiratory failure due to above, intubated and mechanically ventilated # moderate-large b/l Pleural effusions - CXR 01/08/25: Bibasilar atelectasis or pneumonia. - CXR 01/20/25: Patchy bilateral airspace disease, [id number], slightly increased - previously on meropenem and vancomycin, stopped on 01/12/2025 - started on aztreonam on 01/17/2025, linezolid 01/16/2025 - discontinued aztreonam and linezolid on 01/20/2025 - started cefepime, vancomycin and metronidazole on 01/20/2025 - discontinued vancomycin 01/23/2025 - s/p thoracentesis with 900 mL of fluid removed on 01/23/2025 Ventilator: AC/VC Tidal volume 450 Respiratory rate 18 Peep 8 FiO2 60% GI # Acute intractable abdominal pain (01/21/25), improved # Microcytic anemia possibly 2' to ?LGI bleed; Hb 7.8 # Moderate abdominopelvic ascites # Peptic ulcer prophylaxis - stool occult blood positive - GI consult - CT abdomen pelvis from 01/07/2025: Nonspecific periportal edema. Incidental finding. -Pantoprazole 40 mg IV daily - serum lipase 113 - repeat CT abdomen pelvis (01/22/25): Moderate to large bilateral pleural effusions with patchy and consolidative infiltrates in the lung bases likely a combination of pneumonia and atelectasis.mLow to moderate volume abdominopelvic ascites and diffuse subcutaneous edema suggestive of anasarca. Moderate right hydronephrosis without visualization of hydroureter or obstructing calculi. This appearance is new versus CT scan dated 01/07/2025. Gallbladder hydrops without visualization of gallstones. This appearance may indicate acalculous cholecystitis. Fluid-filled colon with multiple air-fluid levels present, possibly related to diarrheal illness. No evidence of bowel obstruction, acute appendicitis, or other acute process in the abdomen or pelvis. Nephrology/ # RADHA likely hemodynamically mediated/VMN on possible CKD stage 3 # Anasarca due to above # severe hypoalbuminemia, serum albumin 2 # Diabetic nephropathy likely # Severe hypokalemia, improving # hypernatremia, now improved # asymptomatic hypocalcemia, corrected Ca 8.2mg/dl # moderate right-sided hydronephrosis - treating the underlying sepsis - U protein excretion est 7.1g/day - IV K rider 40mEq - 50 mEq PO potassium x2 - IV lasix 40mg daily - CT abdomen pelvis: Moderate to large bilateral pleural effusions with patchy and consolidative infiltrates in the lung bases likely a combination of pneumonia and atelectasis.Low to moderate volume abdominopelvic ascites and diffuse subcutaneous edema suggestive of anasarca. Moderate right hydronephrosis without visualization of hydroureter or obstructing calculi. This appearance is new versus CT scan dated 01/07/2025. Gallbladder hydrops without visualization of gallstones. This appearance may indicate acalculous cholecystitis. Fluid- filled colon with multiple air-fluid levels present, possibly related to diarrheal illness. No evidence of bowel obstruction, acute appendicitis, or other acute process in the abdomen or pelvis. - urology consulted - reconsulted nephrology Infectious disease # bilateral lower extremity cellulitis # left lower extremity diabetic foot ulcer on the plantar aspect growing Staph aureus # Sepsis due to above # left heel pressure ulcer # ruled out DVT # Fungal cutaneous infection in b/l groin - MRI from 01/09/2025 shows Mild diffuse subcutaneous soft-tissue edema; possibly cellulitis. No bone marrow edema is present to suggest fracture or acute osteomyelitis. - bilateral lower extremity arterial Doppler: No hemodynamically significant stenosis based on peak systolic velocity criteria. - bilateral lower extremity venous Doppler: No right or left femoropopliteal venous thrombosis - discontinued aztreonam and linezolid on 01/20/2025 - started cefepime, vancomycin and metronidazole on 01/20/2025 - podiatry on board - left foot MRI: No MR evidence of osteomyelitis. Cellulitis and lateral 4 for deep of the 5th metatarsal bone were wound is noted overlying dressing. Edema in the intrinsic muscle of the foot may reflect sequelae of denervation, or myositis. - Fluconazole - discontinued vancomycin 01/23/2025, started patient on daptomycin on 01/23/2025 Hem/onc # microcytic anemia # thrombocytosis likely secondary to sepsis - s/p 1 PRBC - GI on board - monitor Endocrine # DKA, now resolved # recurrent episodes of hypoglycemia # severe protein calorie malnutrition # diabetic/starvation ketoacidosis, improving - discontinued lispro - holding insulin Lantus as patient continues to get hypoglycemic - mild sliding scale insulin - D5 water at 50 cc/hour - Accu-Cheks every 90 minutes while on insulin drip - insulin drip at 1 unit/hour Diet - pureed diet Lines - RUE midline placed 01/22/25 - R extremity 20 gauge placed on 01/20/2025 - Right upper extremity 20 gauge placed on 01/23/2025 Drips Insulin 1 unit/hour Fentanyl 25 micrograms/hour Versed 1 microgram/hour Levophed 4 mcg per minute Transeferred to OXANA 01/23/25 Physical therapy ordered Code status discussed greater than 20 minutes: Full CODE STATUS. Plan discussed with Dr. Castellano; we decided to initiate D5 water, repeat ABGs around 1:00 p.m.. We also went down on the FiO2 to 60% with a goal of coming down further on FiO2 and PEEP as tolerated. Plan discussed with: Patient, Other (RN) My Orders My Orders Orders - ANABELL ORDOÑEZ RESIDENT Procedure Category Date Status Time Discontinue Jones SATHYA 01/23/25 In Process Catheter 17:07 Blood Glucose Q2h SATHYA 01/24/25 In Process 07:36 * Picc Line Consult CONS 01/24/25 Transmitted 07:49 Abg W/ Co-Ox RT 01/24/25 Logged 08:19 Respiratory Culture RICHARD 01/24/25 Logged W/ Gs 08:28 Glucose Blood PHA 01/24/25 In Process (Accu-Chek Comfort 14:00 D5w 5% (Dextrose 5%) PHA 01/24/25 In Process 13:30 Abg W/ Co-Ox RT 01/24/25 Logged 13:18 Basic Metabolic Panel LAB 01/24/25 Logged 13:22 Dietary Evaluation Review Recommendations by RD: Increase Calorie Intake Comments: Nutrition Recommendation: 1) Vital AF 1.2Cal @ 25ml/hr along with Pro-stat 1 pk BID. start @ 20ml/hr, increase 10ml/hr Q4H until goal is reached. TF @ goal volume along with propofol, IV D5wNS0.45%, and Pro-stat provides 1684 kcal (100% energy needs), 75gm protein (100% protein needs), 487ml free water. 2) TPN to meet 75% estimated needs if remains NPO 3) Bryce 1 pk BID for DFU Expected Outcomes/Goals: DFU to improve To maintain/gain weight To meet at least 75% estimated needs Fu 2-3 days Interpretation of weight loss: up to 5% in 1 month Muscle Mass (Severe): Mod to Severe Depletion Protein Calorie Malnutrition: Non-Severe Is there a minimum of two crit: Yes ANABELL ORDOÑEZ RESIDENT Jan 24, 2025 13:32
[2025-01-24 13:39] LABS: Base Excess -4.2 mmol/L (-2.0-3.0)
[2025-01-24 14:12] LABS: Potassium 4.3 mmol/L (3.5-5.1)
[2025-01-24 14:13] LABS: Anion Gap 11 (5-15); Carbon Dioxide 22 mmol/L (20-31)
[2025-01-24 14:14] LABS: Calcium 7.5 mg/dL (8.7-10.4); Chloride 117 mmol/L (98-107); Sodium 150 mmol/L (136-145)
[2025-01-24 14:18] LABS: Glucose 94 mg/dL (74-106)
[2025-01-24 14:19] LABS: BUN/Creatinine Ratio 8.6 (10.0-20.0); Blood Urea Nitrogen 29 mg/dL (9-23)
[2025-01-24] MEDS: INSULIN LANTUS (GLARGINE) 1 /0.01ml (100units/ml) SC ONE (14:45)
[2025-01-24] MEDS: LIDOCAINE 1% (LOCAL ANESTH.) PF 5ml SDV ID ONE (15:21)
--- NOTE | 2025-01-24 15:24 | DVHINCON2 ---
Date of service: Jan 24, [address] Ramirez Reason for Consultation Anemia weakness abdominal distention altered level of consciousness History of Present Illness 44-year-old male presented to the emergency room with history of diabetes and for evaluation of altered level of consciousness patient apparently got progressively worse with increased shortness of breath and was intubated. White count was found to be 23.2 hemoglobin was 8.4 patient also was and problems with increased kidney failure and going to get dialysis now patient is in the ICU with progressive worsening since admission possibly from sepsis and other complications after the patient has been admitted. Consult is because of the anemia as well as possible with the GI pathology to account for the symptoms. Past Medical History Diabetes Past Surgical History None Family History: Alzheimer's disease Grandparent Arthritis G8 MOTHER Diabetes mellitus FH: kidney disease G8 FATHER Hypertension G8 MOTHER G8 FATHER Family History Noncontributory Social History Denies smoking or drinking Allergies: Coded Allergies: Penicillins (Verified Adverse Reaction, Severe, ANAPHYLAXIS , 01/08/25) Piperacillin (Verified Adverse Reaction, Severe, ANAPHYLAXIS , 01/08/25) Tazobactam (Verified Adverse Reaction, Severe, ANAPHYLAXIS , 01/08/25) Home Meds Active Scripts Metoclopramide Hcl (Reglan) 5 Mg Tab, 5 MG PO TID for 14 Days, #42 TAB Prov:NGA GARCIA RESIDENT 12/06/24 Pantoprazole Sodium Sesquihydr (Pantoprazole Sodium) 40 Mg Tab, 40 MG PO DAILY@0600 for 30 Days, #30 TAB Prov:NGA GARCIA RESIDENT 12/06/24 Current Medications Current Medications Medications (Trade) Dose Ordered Sig/Zaria Route PRN Reason Start Time Stop Time Status Last Admin Cefepime HCl 50 ml @ 12.5 mls/hr Q12H IV 01/23/25 18:00 01/24/25 06:43 Furosemide (Lasix Injection) 40 mg BIDD IV 01/23/25 18:00 01/23/25 17:45 DC Furosemide (Lasix Injection) 80 mg BIDD IV 01/23/25 18:00 01/24/25 06:50 Magnesium Sulfate/ Dextrose 100 ml @ 100 mls/hr Q1HR IV 01/23/25 21:00 01/23/25 22:59 DC 01/23/25 23:55 Potassium Chloride 100 ml @ 50 mls/hr Q2H IV 01/23/25 22:00 01/24/25 01:59 DC 01/23/25 23:35 Insulin Human (Reg)/Sodium Chloride 100 ml @ 0.5 mls/hr Q24H IV 01/23/25 23:00 01/24/25 13:17 DC 01/24/25 00:02 Dextrose 50 ml UD PRN IV SEE CURRENT ALGORITHM or SCALE 01/23/25 23:00 01/24/25 13:17 DC Diagnostic Test (Pha) (Accu-Chek Comfort Curve T) 1 strip Q90MIN 01/24/25 00:00 01/24/25 13:17 DC 01/24/25 12:12 Midazolam HCl 50 ml @ 1 mls/hr Q24H IV 01/24/25 04:00 01/24/25 04:14 Fentanyl Citrate 250 ml @ 2.5 mls/hr Q24H IV 01/24/25 04:00 01/24/25 04:15 Norepinephrine Bitartrate 250 ml @ 3.75 mls/hr Q24H IV 01/24/25 04:30 01/24/25 05:33 Dextrose/Sodium Chloride 1,000 ml @ 50 mls/hr Q20H IV 01/24/25 12:30 01/24/25 13:22 DC 01/24/25 12:43 Diagnostic Test (Pha) (Accu-Chek Comfort Curve T) 1 strip Q2HR 01/24/25 14:00 01/24/25 14:00 Dextrose 1,000 ml @ 50 mls/hr Q20H IV 01/24/25 13:30 01/24/25 13:31 Sodium Chloride (Saline Lock Ns) 10 ml QSHIFT@10,22 IV 01/24/25 22:00 Review of Systems Noncontributory Vital Signs Vital Signs Date Time Temp Pulse Resp B/P (MAP) Pulse Ox O2 Delivery O2 Flow Rate FiO2 01/24/25 14:15 114 18 122/63 (82) 100 45 01/24/25 13:45 97.9 208.2 01/24/25 08:00 Non-Rebreather 12 Physical Exam Poorly built and nourished male intubated unresponsive HEENT examination mild pallor no icterus Lungs clear Cardiovascular unremarkable Abdomen is soft no tenderness no rigidity generalized anasarca of with the abdominal wall as well as the legs Labs showed that the hemoglobin was 7.5 white count is increased platelets are normal lactic acid Was 1.9 scan showed generalized anasarca. % sepsis diabetes renal failure anemia possibly of chronic disease no gross GI bleeding at this time no evidence of any DIC generalized anasarca Labs/Diagnostic Data Labs Test 01/24/25 13:52 01/24/25 13:47 01/24/25 13:32 01/24/25 10:50 Range/Units Sodium Level 150 H 136-145 mmol/L Potassium Level 4.3 3.5-5.1 mmol/L Chloride Level 117 H 98-107 mmol/L Carbon Dioxide Level 22 20-31 mmol/L Anion Gap 11 5-15 Blood Urea Nitrogen 29 H 9-23 mg/dL Creatinine 3.39 H 0.700-1.30 mg/dL Glomerular Filtration Rate Calc 22 >90 mL/min BUN/Creatinine Ratio 8.6 L 10.0-20.0 Serum Glucose 94 74-106 mg/dL Calcium Level 7.5 L 8.7-10.4 mg/dL POC Glucose 90 70-106 mg/dl Blood Gas Specimen Type Arterial Blood Gas Sample Site Right radial Blood Gas Patient Temperature 37.0 Arterial Blood Date Drawn [id number] Arterial Blood pH 7.309 L 7.350-7.450 Arterial Blood Partial Pressure CO2 44.4 35.0-48.0 mmHg Arterial Blood Partial Pressure O2 102.6 83.0-108.0 mmHg Arterial Blood HCO3 21.8 21.0-28.0 mmol/L Arterial Blood Oxygen Saturation 96.9 94.0-98.0 % Arterial Blood Base Excess -4.2 L -2.0-3.0 mmol/L Arterial Blood Oxyhemoglobin 95.9 94.0-98.0 % Arterial Blood Carboxyhemoglobin 0.3 L 0.5-1.5 % Arterial Blood Methemoglobin 0.7 0.0-1.5 % Kyle Test Modified Blood Gas Total Hemoglobin 7.90 L 13.5-17.5 g/dL Blood Gas Set Respiration Rate 18.0 Blood Gas Modality Vent - ac FiO2 % 60.0 Blood Gas Tidal Volume 450.0 Blood Gas PEEP or CPAP 8.0 Prothrombin Time 27.1 H 9.3-11.8 sec Prothrombin Time INR 2.83 H 0.9-1.15 Activated Partial Thromboplast Time 43.4 H 24.5-34.5 SEC Test 01/24/25 08:42 01/24/25 06:05 01/24/25 04:43 01/24/25 02:03 Range/Units Phosphorus Level 5.5 H 2.4-5.1 mg/dL Magnesium Level 1.7 1.6-2.6 mg/dL Beta-Hydroxybutyric Acid 0.121 < 0.4 mmol/L Blood Gas Critical Value Read Back Yes Blood Gas Notified Whom jenelle Carrero md Blood Gas Notified Time [id number] Blood Gas Notified By Stock Checker eric morales White Blood Count 23.0 #H 4.4-10.8 10^3/uL Red Blood Count 3.25 L 4.5-5.90 10^6/uL Hemoglobin 7.5 L 13.5-17.5 g/dL Hematocrit 24.7 L 41.0-53.0 % Mean Corpuscular Volume 76.1 L 80.0-100.0 fL Mean Corpuscular Hemoglobin 23.0 L 28.0-32.0 pg Mean Corpuscular Hemoglobin Concent 30.2 L 32.0-36.0 g/dL Red Cell Distribution Width 20.4 H 11.8-14.3 % Platelet Count 388 140-450 10^3/uL Mean Platelet Volume 6.6 L 6.9-10.8 fL Neutrophils (%) (Auto) 66.0 37.0-80.0 % Lymphocytes (%) (Auto) 31.7 10.0-50.0 % Monocytes (%) (Auto) 1.6 0.0-12.0 % Eosinophils (%) (Auto) 0.1 0.0-7.0 % Basophils (%) (Auto) 0.6 0.0-2.0 % Neutrophils # (Auto) 15.2 H 1.6-8.6 10 ^3/uL Lymphocytes # (Auto) 7.3 H 0.4-5.4 10 ^3/uL Monocytes # (Auto) 0.4 0-1.3 10 ^3/uL Eosinophils # (Auto) 0 0-0.8 10 ^3/uL Basophils # (Auto) 0.1 0-0.2 10 ^3/uL Nucleated Red Blood Cells 0.0 % Platelet Estimate Adequate Hypochromasia (manual) Moderate Anisocytosis (manual) Slight Microcytosis Slight Target Cells Few [place] Cells Moderate Schistocytes Few Total Bilirubin 0.3 0.2-1.0 mg/dL Aspartate Amino Transferase (AST) 27 13-40 U/L Alanine Aminotransferase (ALT) < 9 7-40 U/L Alkaline Phosphatase 181 H 46-116 U/L Creatine Kinase 68 46-171 U/L Total Protein 4.4 L 5.7-8.2 g/dL Albumin 1.9 L 3.2-4.8 g/dL Test 01/23/25 23:54 01/23/25 20:47 01/23/25 20:30 01/22/25 17:30 Range/Units Blood Gas Liter Flow 60.00 Lactic Acid Level 1.3 0.4-2.0 mmol/L Body Fluid Source Pleural fluid Body Fluid pH 7.0 Body Fluid WBC (Manual) 102 0-200 CUMM Body Fluid RBC (Manual) 0 0-2000 CUMM Body Fluid Mononuclear Cells 50 % Body Fluid Polymorphonuclear Cells 50 H 0-25 % Urine Color Colorless Yellow Urine Clarity Turbid H Clear Urine pH 6.0 5.0-9.0 Urine Specific [place] 1.011 1.001-1.035 Urine Protein 2+ H Negative Urine Ketones Negative Negative Urine Blood 3+ H Negative /uL Urine Nitrite Negative Negative Urine Bilirubin Negative Negative Urine Urobilinogen Normal Negative mg/dL Urine Leukocyte Esterase Negative Negative /uL Urine RBC 702 0 - 3 /hpf Urine Microscopic WBC < 1 0-3 /HPF Urine Squamous Epithelial Cells Few <5 /hpf Urine Bacteria None seen None Seen /hpf Urine Hyaline Casts Few 0 - 2 /lpf Urine Mucus Few None Seen Urine Glucose 2+ H Normal mg/dL Test 01/22/25 09:30 01/22/25 06:09 01/21/25 18:33 01/12/25 10:10 Range/Units Direct Bilirubin 0.2 <0.3 mg/dL Triglycerides Level 58 < 150 mg/dL Cholesterol Level 105 < 200 mg/dL LDL Cholesterol 41 < 100 mg/dL HDL Cholesterol 37 L 40-59 mg/dL Random Vancomycin Level 13.9 H 5-10 ug/mL Lipase 116 H 12-53 U/L Blood Gas Pressure Support 8 Test 01/10/25 11:50 01/09/25 03:00 01/08/25 18:27 01/08/25 10:37 Range/Units Urine Creatinine 26.27 L 30.0-125.0 mg/dL Urine Protein/Creatinine Ratio 7.12 Urine Sodium 79 40-220 mmol/L Urine Total Protein 187.1 H 1-14 mg/dL Hemoglobin A1c 8.9 H <5.7 % A1C Parathyroid Hormone (Intact) 264.7 H 18.4-80.1 pg/mL Urine Osmolality 300 mOsm/kg Stool Occult Blood Positive Negative Stool Occult Blood Sample #3 Negative Stool for White Cells Moderate Test 01/06/25 23:08 01/06/25 16:10 01/06/25 15:00 01/06/25 13:12 Range/Units Specimen Drawn By Urine Opiates Screen Neg NEGATIVE Urine Fentanyl Screen Neg NEGATIVE Urine Barbiturates Screen Neg NEGATIVE Urine Phencyclidine Screen Neg NEGATIVE Urine Amphetamines Screen Neg NEGATIVE Urine Benzodiazepines Screen Neg NEGATIVE Urine Cocaine Screen Neg NEGATIVE Urine Cannabinoids Screen Pos NEGATIVE Differential Total Cells Counted 100.0 100 Neutrophils % (Manual) 89 H 37.0-80.0 Band Neutrophils % (Manual) 4 Lymphocytes % (Manual) 3 L 10.0-50.0 Monocytes % (Manual) 4 0-12 Eosinophils % (Manual) 0 0-7 Basophils % (Manual) 0 0.0-2.0 Metamyelocytes % (manual) 0 Myelocytes % (Manual) 0 Promyelocytes % (Manual) 0 Blast Cells % (Manual) 0 Reactive Lymphocytes 0 Large Platelets Troponin I High Sensitivity 15 </=54 ng/L Serum Osmolality 420 H 278-298 mOsm/kg Microbiology Date/Time Source Procedure Growth Status 01/23/25 20:30 Pleural Fluid Gram Stain - Final Resulted 01/23/25 20:30 Pleural Fluid Body Fluid Culture Pending Resulted 01/22/25 17:30 Voided Urine Urine Culture - Preliminary Resulted 01/19/25 16:06 Nose MRSA Screen - Final Complete 01/16/25 19:00 Blood Blood Culture - Final NO GROWTH AFTER 5 DAYS OF INCUBATION. Complete 01/08/25 10:37 Stool Stool Culture - Final Complete 01/08/25 10:37 Stool Shiga Toxin I & II - Final Complete 01/06/25 15:14 Sputum Endotracheal Wash Gram Stain - Final Complete 01/06/25 15:14 Sputum Endotracheal Wash Respiratory Culture - Final Complete Assessment 44-year-old with a history diabetes with respiratory failure altered level of consciousness intubated has got generalized anasarca low hemoglobin and renal failure multiorgan failure at this time both possible sepsis No Gross GI bleeding Plan/Recommendation We will check for hemoglobin drop Stool for occult blood Nutrition through IV If severe Bleeding from the GI tract may need endoscopic workup but patient is too sick and unstable for any intervention at this time Overall prognosis guarded Thank you Dr. Galaviz Plan discussed with: Patient, Other SIVA GALAVIZ MD Jan 24, 2025 15:24
[2025-01-24] MEDS: HEPARIN 1,000 UNITS/ml 1ML VIAL IV ONE (15:51)
[2025-01-24] MEDS: HEPARIN SODIUM (PORCINE) 5000 UNITS/ML 1ML VIAL ONE (15:53)
--- NOTE | 2025-01-24 15:55 | DVHPN2 ---
Consult Progress Note Date Seen: Jan 19, 2025 Subjective Patient reports: Other (remains neutropenic and on room air ) Objective vital signs Vital Sign Date Time Temp Pulse Resp B/P (MAP) Pulse Ox O2 Delivery O2 Flow Rate FiO2 01/24/25 14:15 114 18 122/63 (82) 100 45 01/24/25 13:45 97.9 208.2 01/24/25 08:00 Non-Rebreather 12 Total Intake and Output 01/23/25 01/23/25 01/24/25 15:00 23:00 07:00 Intake Total 100 ml 470 ml 911.00 ml Output Total 100 ml 150 ml Balance 100 ml 370 ml 761.00 ml medications Current Medications Medications Dose Ordered Sig/Zaria Route Start Time Stop Time Status Last Admin Dose Admin Ondansetron HCl 4 mg Q4HP PRN IV 01/06/25 15:00 Hold 01/20/25 10:24 4 MG Famotidine 20 mg Q12HR IV 01/07/25 10:00 UNV Diagnostic Test (Pha) 1 strip IQ4HR 01/07/25 08:00 Cancel Calcium Gluconate/ Sodium Chloride 50 ml @ 100 mls/hr Q30M IV 01/08/25 17:30 01/08/25 18:29 Cancel Pantoprazole Sodium 40 mg BID IV 01/10/25 10:00 01/24/25 11:36 40 MG Throat Lozenges 1 reza Q2HPRN PRN MT 01/12/25 22:45 Diphenhydramine HCl 50 mg Q8HR PRN IV 01/20/25 16:15 01/21/25 07:53 50 MG Metronidazole 100 ml @ 100 mls/hr Q8HR IV 01/20/25 22:00 01/24/25 14:00 100 MLS/HR Dextrose 50 ml UD PRN IV 01/20/25 16:45 01/21/25 16:29 50 ML Insulin Glargine 7 units QAM SC 01/21/25 08:30 Hold 01/21/25 08:52 7 UNITS Metoclopramide HCl 10 mg Q8HPRN PRN IV 01/21/25 16:30 Fluconazole 200 mg DAILY PO 01/23/25 10:00 01/24/25 11:36 200 MG Cefepime HCl 50 ml @ 12.5 mls/hr Q12H IV 01/23/25 18:00 01/24/25 06:43 12.5 MLS/HR Daptomycin 300 mg/ Sodium Chloride 50 ml @ 100 mls/hr DAILY IV 01/23/25 15:00 01/24/25 10:00 100 MLS/HR Furosemide 80 mg BIDD IV 01/23/25 18:00 01/24/25 06:50 80 MG Midazolam HCl 50 ml @ 1 mls/hr Q24H IV 01/24/25 04:00 01/24/25 04:14 1 MLS/HR Fentanyl Citrate 250 ml @ 2.5 mls/hr Q24H IV 01/24/25 04:00 01/24/25 04:15 2.5 MLS/HR Norepinephrine Bitartrate 250 ml @ 3.75 mls/hr Q24H IV 01/24/25 04:30 01/24/25 05:33 3.75 MLS/HR Diagnostic Test (Pha) 1 strip Q2HR 01/24/25 14:00 01/24/25 14:00 1 STRIP Dextrose 1,000 ml @ 50 mls/hr Q20H IV 01/24/25 13:30 01/24/25 13:31 50 MLS/HR Sodium Chloride 10 ml QSHIFT@10,22 IV 01/24/25 22:00 laboratory and microbiology Laboratory Tests 01/24/25 13:52 01/24/25 04:43 Test 01/24/25 13:52 Range/Units Serum Glucose 94 74-106 mg/dL Problem List/Assessment/Plan Problems(with codes): (1) Symptomatic anemia (2) Malnourished (3) Gallstones (4) Fluid overload (5) Gallbladder hydrops (6) History of diabetic ketoacidosis (7) Cannabinoid hyperemesis syndrome Problem List/Assessment/Plan Patient is a 44 year old with a past medical history of type 1 diabetes who presents with blood sugars of 940, altered mental status . was started on insulin drip and monitored in ICU . having respiratory distress and respiratory alkalosis . chest xray was unremarkable patient was started empirically on vancomycin and Zosyn . later developed swelling of the lips and out of concern of allergy Zosyn was stopped and switched to Aztreonam and vancomycin was stopped due to acute kidney injury and was switched to linezolid . patient has chronic bilateral foot wounds with no new ulcers , malnourished . both feet ulcers are on the planar surface with a necrotic planar base, on the right foot it looks newer with mild drainage. Currently tolerating antibiotics whitecount is 18.6 , creatinine is 2.24 and patient is on minimal vent and no requiring any presser support . microbiology cultures and respiratory cultures are negative . foot wound was swabbed and is growing MSSA and enterococcus facialis. unclear sensitivities . 01/18: growing MSSA and enterococcus that is sensitive to ampicillin and vancomycin . whitecount is at 21.6. 01/19: whitecount is 19.1 . blood sugars are more controlled . underwent MRI of feet bilaterally and no signs of osteomyelitis , only cellulitis Plan : - if patient continues to have signs of infection will consider aquiring a ct of lower extremities bilaterally to evaluate for unseen abscess or osteomyelitis but can hold off for now - continues empiric coverage - add flagyl to account for loss of anaerobic coverage of necrotic ulcer - defer DKA management to primary care team - defer management of vent support to keep O2 sats above 95% to billet heater operator team - f/u on pending blood cultures Authorized and Performed by: Lizzy Roland Total critical care time: Approximately 76 minutes Due to a high probability of clinically significant, life threatening deterioration, the patient required my highest level of preparedness to intervene emergently and I personally spent this critical care time directly and personally managing the patient. This critical care time included obtaining a history; examining the patient; pulse oximetry; ordering and review of studies; arranging urgent treatment with development of a management plan; evaluation of patient's response to treatment; frequent reassessment; and, discussions with other providers. This critical care time was performed to assess and manage the high probability of imminent, life-threatening deterioration that could result in multi-organ failure. It was exclusive of separately billable procedures and treating other patients and teaching time. Plan discussed with: Other Dietary Evaluation Review Recommendations by RD: Increase Calorie Intake Comments: Nutrition Recommendation: 1) Vital AF 1.2Cal @ 25ml/hr along with Pro-stat 1 pk BID. start @ 20ml/hr, increase 10ml/hr Q4H until goal is reached. TF @ goal volume along with propofol, IV D5wNS0.45%, and Pro-stat provides 1684 kcal (100% energy needs), 75gm protein (100% protein needs), 487ml free water. 2) TPN to meet 75% estimated needs if remains NPO 3) Bryce 1 pk BID for DFU Expected Outcomes/Goals: DFU to improve To maintain/gain weight To meet at least 75% estimated needs Fu 2-3 days Interpretation of weight loss: up to 5% in 1 month Muscle Mass (Severe): Mod to Severe Depletion Protein Calorie Malnutrition: Non-Severe Is there a minimum of two crit: Yes LIZZY ROLAND MD Jan 24, 2025 15:55
--- NOTE | 2025-01-24 15:55 | DVHPN2 ---
Consult Progress Note Date Seen: Jan 20, 2025 Subjective Patient reports: Feels worse (tachycardic , low blood sugars . leg needs are beign adressed by wound care with barrier cream , mild redness and drainage from right plantar foot deep tissue injury ) Objective vital signs Vital Sign Date Time Temp Pulse Resp B/P (MAP) Pulse Ox O2 Delivery O2 Flow Rate FiO2 01/24/25 14:15 114 18 122/63 (82) 100 45 01/24/25 13:45 97.9 208.2 01/24/25 08:00 Non-Rebreather 12 Total Intake and Output 01/23/25 01/23/25 01/24/25 15:00 23:00 07:00 Intake Total 100 ml 470 ml 911.00 ml Output Total 100 ml 150 ml Balance 100 ml 370 ml 761.00 ml medications Current Medications Medications Dose Ordered Sig/Zaria Route Start Time Stop Time Status Last Admin Dose Admin Ondansetron HCl 4 mg Q4HP PRN IV 01/06/25 15:00 Hold 01/20/25 10:24 4 MG Famotidine 20 mg Q12HR IV 01/07/25 10:00 UNV Diagnostic Test (Pha) 1 strip IQ4HR 01/07/25 08:00 Cancel Calcium Gluconate/ Sodium Chloride 50 ml @ 100 mls/hr Q30M IV 01/08/25 17:30 01/08/25 18:29 Cancel Pantoprazole Sodium 40 mg BID IV 01/10/25 10:00 01/24/25 11:36 40 MG Throat Lozenges 1 reza Q2HPRN PRN MT 01/12/25 22:45 Diphenhydramine HCl 50 mg Q8HR PRN IV 01/20/25 16:15 01/21/25 07:53 50 MG Metronidazole 100 ml @ 100 mls/hr Q8HR IV 01/20/25 22:00 01/24/25 14:00 100 MLS/HR Dextrose 50 ml UD PRN IV 01/20/25 16:45 01/21/25 16:29 50 ML Insulin Glargine 7 units QAM SC 01/21/25 08:30 Hold 01/21/25 08:52 7 UNITS Metoclopramide HCl 10 mg Q8HPRN PRN IV 01/21/25 16:30 Fluconazole 200 mg DAILY PO 01/23/25 10:00 01/24/25 11:36 200 MG Cefepime HCl 50 ml @ 12.5 mls/hr Q12H IV 01/23/25 18:00 01/24/25 06:43 12.5 MLS/HR Daptomycin 300 mg/ Sodium Chloride 50 ml @ 100 mls/hr DAILY IV 01/23/25 15:00 01/24/25 10:00 100 MLS/HR Furosemide 80 mg BIDD IV 01/23/25 18:00 01/24/25 06:50 80 MG Midazolam HCl 50 ml @ 1 mls/hr Q24H IV 01/24/25 04:00 01/24/25 04:14 1 MLS/HR Fentanyl Citrate 250 ml @ 2.5 mls/hr Q24H IV 01/24/25 04:00 01/24/25 04:15 2.5 MLS/HR Norepinephrine Bitartrate 250 ml @ 3.75 mls/hr Q24H IV 01/24/25 04:30 01/24/25 05:33 3.75 MLS/HR Diagnostic Test (Pha) 1 strip Q2HR 01/24/25 14:00 01/24/25 14:00 1 STRIP Dextrose 1,000 ml @ 50 mls/hr Q20H IV 01/24/25 13:30 01/24/25 13:31 50 MLS/HR Sodium Chloride 10 ml QSHIFT@10,22 IV 01/24/25 22:00 laboratory and microbiology Laboratory Tests 01/24/25 13:52 01/24/25 04:43 Test 01/24/25 13:52 Range/Units Serum Glucose 94 74-106 mg/dL Problem List/Assessment/Plan Problems(with codes): (1) Gallstones (2) Fluid overload (3) Gallbladder hydrops (4) History of diabetic ketoacidosis (5) Cannabinoid hyperemesis syndrome (6) Intractable abdominal pain Problem List/Assessment/Plan Patient is a 44 year old with a past medical history of type 1 diabetes who presents with blood sugars of 940, altered mental status . was started on insulin drip and monitored in ICU . having respiratory distress and respiratory alkalosis . chest xray was unremarkable patient was started empirically on vancomycin and Zosyn . later developed swelling of the lips and out of concern of allergy Zosyn was stopped and switched to Aztreonam and vancomycin was stopped due to acute kidney injury and was switched to linezolid . patient has chronic bilateral foot wounds with no new ulcers , malnourished . both feet ulcers are on the planar surface with a necrotic planar base, on the right foot it looks newer with mild drainage. Currently tolerating antibiotics whitecount is 18.6 , creatinine is 2.24 and patient is on minimal vent and no requiring any presser support . microbiology cultures and respiratory cultures are negative . foot wound was swabbed and is growing MSSA and enterococcus facialis. unclear sensitivities . 01/18: growing MSSA and enterococcus that is sensitive to ampicillin and vancomycin . whitecount is at 21.6. 01/19: whitecount is 19.1 . blood sugars are more controlled . underwent MRI of feet bilaterally and no signs of osteomyelitis , only cellulitis 01/20: switched from aztreonam to cefepime and fluconazole because of candidal infection of the groin which is alse a concer for persistly elevated leukocytosis and ongoing visible cellulitis Plan : - monitor closely to reaction for cefepime as patient possible developed one to Zosyn , if patients gives allergic response will give Benadryl stat and steroids - agree with new antibiotics - agree with stopping aztreonam an d linezolid - agree with switch to vancomycin - if patient continues to have signs of infection will consider acquiring a ct of lower extremities bilaterally to evaluate for unseen abscess or osteomyelitis but can hold off for now - continues empiric coverage - add flagyl to account for loss of anaerobic coverage of necrotic ulcer - defer DKA management to primary care team - defer management of vent support to keep O2 sats above 95% to communication analyst team - f/u on pending blood cultures Authorized and Performed by: Lizzy Roland Total critical care time: Approximately 76 minutes Due to a high probability of clinically significant, life threatening deterioration, the patient required my highest level of preparedness to intervene emergently and I personally spent this critical care time directly and personally managing the patient. This critical care time included obtaining a history; examining the patient; pulse oximetry; ordering and review of studies; arranging urgent treatment with development of a management plan; evaluation of patient's response to treatment; frequent reassessment; and, discussions with other providers. This critical care time was performed to assess and manage the high probability of imminent, life-threatening deterioration that could result in multi-organ failure. It was exclusive of separately billable procedures and treating other patients and teaching time. Plan discussed with: Other Dietary Evaluation Review Recommendations by RD: Increase Calorie Intake Comments: Nutrition Recommendation: 1) Vital AF 1.2Cal @ 25ml/hr along with Pro-stat 1 pk BID. start @ 20ml/hr, increase 10ml/hr Q4H until goal is reached. TF @ goal volume along with propofol, IV D5wNS0.45%, and Pro-stat provides 1684 kcal (100% energy needs), 75gm protein (100% protein needs), 487ml free water. 2) TPN to meet 75% estimated needs if remains NPO 3) Bryce 1 pk BID for DFU Expected Outcomes/Goals: DFU to improve To maintain/gain weight To meet at least 75% estimated needs Fu 2-3 days Interpretation of weight loss: up to 5% in 1 month Muscle Mass (Severe): Mod to Severe Depletion Protein Calorie Malnutrition: Non-Severe Is there a minimum of two crit: Yes LIZZY ROLAND MD Jan 24, 2025 15:55
--- NOTE | 2025-01-24 15:55 | DVHPN2 ---
Consult Progress Note Date Seen: Jan 18, 2025 Subjective Patient reports: Other (remains intubated , not requiring pressers , on minimal vent . leg wounds appear stables . no ulcers progressing . on room ait ) Objective vital signs Vital Sign Date Time Temp Pulse Resp B/P (MAP) Pulse Ox O2 Delivery O2 Flow Rate FiO2 01/24/25 14:15 114 18 122/63 (82) 100 45 01/24/25 13:45 97.9 208.2 01/24/25 08:00 Non-Rebreather 12 Total Intake and Output 01/23/25 01/23/25 01/24/25 15:00 23:00 07:00 Intake Total 100 ml 470 ml 911.00 ml Output Total 100 ml 150 ml Balance 100 ml 370 ml 761.00 ml medications Current Medications Medications Dose Ordered Sig/Zaria Route Start Time Stop Time Status Last Admin Dose Admin Ondansetron HCl 4 mg Q4HP PRN IV 01/06/25 15:00 Hold 01/20/25 10:24 4 MG Famotidine 20 mg Q12HR IV 01/07/25 10:00 UNV Diagnostic Test (Pha) 1 strip IQ4HR 01/07/25 08:00 Cancel Calcium Gluconate/ Sodium Chloride 50 ml @ 100 mls/hr Q30M IV 01/08/25 17:30 01/08/25 18:29 Cancel Pantoprazole Sodium 40 mg BID IV 01/10/25 10:00 01/24/25 11:36 40 MG Throat Lozenges 1 reza Q2HPRN PRN MT 01/12/25 22:45 Diphenhydramine HCl 50 mg Q8HR PRN IV 01/20/25 16:15 01/21/25 07:53 50 MG Metronidazole 100 ml @ 100 mls/hr Q8HR IV 01/20/25 22:00 01/24/25 14:00 100 MLS/HR Dextrose 50 ml UD PRN IV 01/20/25 16:45 01/21/25 16:29 50 ML Insulin Glargine 7 units QAM SC 01/21/25 08:30 Hold 01/21/25 08:52 7 UNITS Metoclopramide HCl 10 mg Q8HPRN PRN IV 01/21/25 16:30 Fluconazole 200 mg DAILY PO 01/23/25 10:00 01/24/25 11:36 200 MG Cefepime HCl 50 ml @ 12.5 mls/hr Q12H IV 01/23/25 18:00 01/24/25 06:43 12.5 MLS/HR Daptomycin 300 mg/ Sodium Chloride 50 ml @ 100 mls/hr DAILY IV 01/23/25 15:00 01/24/25 10:00 100 MLS/HR Furosemide 80 mg BIDD IV 01/23/25 18:00 01/24/25 06:50 80 MG Midazolam HCl 50 ml @ 1 mls/hr Q24H IV 01/24/25 04:00 01/24/25 04:14 1 MLS/HR Fentanyl Citrate 250 ml @ 2.5 mls/hr Q24H IV 01/24/25 04:00 01/24/25 04:15 2.5 MLS/HR Norepinephrine Bitartrate 250 ml @ 3.75 mls/hr Q24H IV 01/24/25 04:30 01/24/25 05:33 3.75 MLS/HR Diagnostic Test (Pha) 1 strip Q2HR 01/24/25 14:00 01/24/25 14:00 1 STRIP Dextrose 1,000 ml @ 50 mls/hr Q20H IV 01/24/25 13:30 01/24/25 13:31 50 MLS/HR Sodium Chloride 10 ml QSHIFT@10,22 IV 01/24/25 22:00 laboratory and microbiology Laboratory Tests 01/24/25 13:52 01/24/25 04:43 Test 01/24/25 13:52 Range/Units Serum Glucose 94 74-106 mg/dL Problem List/Assessment/Plan Problems(with codes): (1) Gallbladder hydrops (2) Gallstones (3) Fluid overload (4) History of diabetic ketoacidosis (5) Cannabinoid hyperemesis syndrome (6) Intractable abdominal pain (7) Inadequate oral intake (8) Appendicolith (9) Hydronephrosis, right (10) Hypoglycemia associated with diabetes (11) Intractable vomiting (12) BPH (benign prostatic hyperplasia) Problem List/Assessment/Plan Patient is a 44 year old with a past medical history of type 1 diabetes who presents with blood sugars of 940, altered mental status . was started on insulin drip and monitored in ICU . having respiratory distress and respiratory alkalosis . chest xray was unremarkable patient was started empirically on vancomycin and Zosyn . later developed swelling of the lips and out of concern of allergy Zosyn was stopped and switched to Aztreonam and vancomycin was stopped due to acute kidney injury and was switched to linezolid . patient has chronic bilateral foot wounds with no new ulcers , malnourished . both feet ulcers are on the planar surface with a necrotic planar base, on the right foot it looks newer with mild drainage. Currently tolerating antibiotics whitecount is 18.6 , creatinine is 2.24 and patient is on minimal vent and no requiring any presser support . microbiology cultures and respiratory cultures are negative . foot wound was swabbed and is growing MSSA and enterococcus facialis. unclear sensitivities . 01/18: growing MSSA and eterococcus that is sensitive to ampicillin and vancomycin . whitecount is at 21.6. Plan : - if patient continues to have signs of infection will consider aquiring a ct of lower extremities bilaterally to evaluate for unseen abcess or osteomyelitis but can hold off for now - continues empiric coverage - add flagyl to account for loss of anaerobic coverage of necrotic ulcer - defer DKA management to primary care team - defer management of vent support to keep O2 sats above 95% to health education teacher team - f/u on pending blood cultures Authorized and Performed by: Lizzy Roland Total critical care time: Approximately 76 minutes Due to a high probability of clinically significant, life threatening deterioration, the patient required my highest level of preparedness to intervene emergently and I personally spent this critical care time directly and personally managing the patient. This critical care time included obtaining a history; examining the patient; pulse oximetry; ordering and review of studies; arranging urgent treatment with development of a management plan; evaluation of patient's response to treatment; frequent reassessment; and, discussions with other providers. This critical care time was performed to assess and manage the high probability of imminent, life-threatening deterioration that could result in multi-organ failure. It was exclusive of separately billable procedures and treating other patients and teaching time. Plan discussed with: Other Dietary Evaluation Review Recommendations by RD: Increase Calorie Intake Comments: Nutrition Recommendation: 1) Vital AF 1.2Cal @ 25ml/hr along with Pro-stat 1 pk BID. start @ 20ml/hr, increase 10ml/hr Q4H until goal is reached. TF @ goal volume along with propofol, IV D5wNS0.45%, and Pro-stat provides 1684 kcal (100% energy needs), 75gm protein (100% protein needs), 487ml free water. 2) TPN to meet 75% estimated needs if remains NPO 3) Bryce 1 pk BID for DFU Expected Outcomes/Goals: DFU to improve To maintain/gain weight To meet at least 75% estimated needs Fu 2-3 days Interpretation of weight loss: up to 5% in 1 month Muscle Mass (Severe): Mod to Severe Depletion Protein Calorie Malnutrition: Non-Severe Is there a minimum of two crit: Yes LIZZY ROLAND MD Jan 24, 2025 15:55
--- NOTE | 2025-01-24 15:56 | DVHPN2 ---
Consult Progress Note Date Seen: Jan 21, 2025 Subjective Patient reports: Feels better Objective vital signs Vital Sign Date Time Temp Pulse Resp B/P (MAP) Pulse Ox O2 Delivery O2 Flow Rate FiO2 01/24/25 14:15 114 18 122/63 (82) 100 45 01/24/25 13:45 97.9 208.2 01/24/25 08:00 Non-Rebreather 12 Total Intake and Output 01/23/25 01/23/25 01/24/25 15:00 23:00 07:00 Intake Total 100 ml 470 ml 911.00 ml Output Total 100 ml 150 ml Balance 100 ml 370 ml 761.00 ml medications Current Medications Medications Dose Ordered Sig/Zaria Route Start Time Stop Time Status Last Admin Dose Admin Ondansetron HCl 4 mg Q4HP PRN IV 01/06/25 15:00 Hold 01/20/25 10:24 4 MG Famotidine 20 mg Q12HR IV 01/07/25 10:00 UNV Diagnostic Test (Pha) 1 strip IQ4HR 01/07/25 08:00 Cancel Calcium Gluconate/ Sodium Chloride 50 ml @ 100 mls/hr Q30M IV 01/08/25 17:30 01/08/25 18:29 Cancel Pantoprazole Sodium 40 mg BID IV 01/10/25 10:00 01/24/25 11:36 40 MG Throat Lozenges 1 reza Q2HPRN PRN MT 01/12/25 22:45 Diphenhydramine HCl 50 mg Q8HR PRN IV 01/20/25 16:15 01/21/25 07:53 50 MG Metronidazole 100 ml @ 100 mls/hr Q8HR IV 01/20/25 22:00 01/24/25 14:00 100 MLS/HR Dextrose 50 ml UD PRN IV 01/20/25 16:45 01/21/25 16:29 50 ML Insulin Glargine 7 units QAM SC 01/21/25 08:30 Hold 01/21/25 08:52 7 UNITS Metoclopramide HCl 10 mg Q8HPRN PRN IV 01/21/25 16:30 Fluconazole 200 mg DAILY PO 01/23/25 10:00 01/24/25 11:36 200 MG Cefepime HCl 50 ml @ 12.5 mls/hr Q12H IV 01/23/25 18:00 01/24/25 06:43 12.5 MLS/HR Daptomycin 300 mg/ Sodium Chloride 50 ml @ 100 mls/hr DAILY IV 01/23/25 15:00 01/24/25 10:00 100 MLS/HR Furosemide 80 mg BIDD IV 01/23/25 18:00 01/24/25 06:50 80 MG Midazolam HCl 50 ml @ 1 mls/hr Q24H IV 01/24/25 04:00 01/24/25 04:14 1 MLS/HR Fentanyl Citrate 250 ml @ 2.5 mls/hr Q24H IV 01/24/25 04:00 01/24/25 04:15 2.5 MLS/HR Norepinephrine Bitartrate 250 ml @ 3.75 mls/hr Q24H IV 01/24/25 04:30 01/24/25 05:33 3.75 MLS/HR Diagnostic Test (Pha) 1 strip Q2HR 01/24/25 14:00 01/24/25 14:00 1 STRIP Dextrose 1,000 ml @ 50 mls/hr Q20H IV 01/24/25 13:30 01/24/25 13:31 50 MLS/HR Sodium Chloride 10 ml QSHIFT@10,22 IV 01/24/25 22:00 laboratory and microbiology Laboratory Tests 01/24/25 13:52 01/24/25 04:43 Test 01/24/25 13:52 Range/Units Serum Glucose 94 74-106 mg/dL Problem List/Assessment/Plan Problem List/Assessment/Plan Problems(with codes): (1) Gallstones (2) Fluid overload (3) Gallbladder hydrops (4) History of diabetic ketoacidosis (5) Cannabinoid hyperemesis syndrome (6) Intractable abdominal pain Problem List/Assessment/Plan Patient is a 44 year old with a past medical history of type 1 diabetes who presents with blood sugars of 940, altered mental status . was started on insulin drip and monitored in ICU . having respiratory distress and respiratory alkalosis . chest xray was unremarkable patient was started empirically on vancomycin and Zosyn . later developed swelling of the lips and out of concern of allergy Zosyn was stopped and switched to Aztreonam and vancomycin was stopped due to acute kidney injury and was switched to linezolid . patient has chronic bilateral foot wounds with no new ulcers , malnourished . both feet ulcers are on the planar surface with a necrotic planar base, on the right foot it looks newer with mild drainage. Currently tolerating antibiotics whitecount is 18.6 , creatinine is 2.24 and patient is on minimal vent and no requiring any presser support . microbiology cultures and respiratory cultures are negative . foot wound was swabbed and is growing MSSA and enterococcus facialis. unclear sensitivities . 01/18: growing MSSA and enterococcus that is sensitive to ampicillin and vancomycin . whitecount is at 21.6. 01/19: whitecount is 19.1 . blood sugars are more controlled . underwent MRI of feet bilaterally and no signs of osteomyelitis , only cellulitis 01/20: switched from aztreonam to cefepime and fluconazole because of candidal infection of the groin which is alse a concer for persistly elevated leukocytosis and ongoing visible cellulitis Plan : - monitor closely to reaction for cefepime as patient possible developed one to Zosyn , if patients gives allergic response will give Benadryl stat and steroids - agree with new antibiotics - agree with stopping aztreonam an d linezolid - agree with switch to vancomycin - if patient continues to have signs of infection will consider acquiring a ct of lower extremities bilaterally to evaluate for unseen abscess or osteomyelitis but can hold off for now - continues empiric coverage - add flagyl to account for loss of anaerobic coverage of necrotic ulcer - defer DKA management to primary care team - defer management of vent support to keep O2 sats above 95% to biomedical manager team - f/u on pending blood cultures Authorized and Performed by: Lizzy Roland Total critical care time: Approximately 76 minutes Due to a high probability of clinically significant, life threatening deterioration, the patient required my highest level of preparedness to intervene emergently and I personally spent this critical care time directly and personally managing the patient. This critical care time included obtaining a history; examining the patient; pulse oximetry; ordering and review of studies; arranging urgent treatment with development of a management plan; evaluation of patient's response to treatment; frequent reassessment; and, discussions with other providers. This critical care time was performed to assess and manage the high probability of imminent, life-threatening deterioration that could result in multi-organ failure. It was exclusive of separately billable procedures and treating other patients and teaching time. PHYSICAL EXAM: - GENERAL: Alert and oriented x 3. No acute distress. Well-nourished. ? - EYES: EOMI. Anicteric. ?- HENT: Moist mucous membranes. No scleral icterus. No cervical lymphadenopathy. ?- LUNGS: Clear to auscultation bilaterally. No accessory muscle use.? - CARDIOVASCULAR: Regular rate and rhythm. No murmur. No JVD.? - ABDOMEN: Soft, non-tender and non-distended. No palpable masses.? - EXTREMITIES: No edema. Non-tender.?SKIN: No rashes or lesions. Warm. ? - NEUROLOGIC: No focal neurological deficits. CN II-XII grossly intact, but not individually tested.? - PSYCHIATRIC: Cooperative. Appropriate mood and affect. Plan discussed with: Patient Dietary Evaluation Review Recommendations by RD: Increase Calorie Intake Comments: Nutrition Recommendation: 1) Vital AF 1.2Cal @ 25ml/hr along with Pro-stat 1 pk BID. start @ 20ml/hr, increase 10ml/hr Q4H until goal is reached. TF @ goal volume along with propofol, IV D5wNS0.45%, and Pro-stat provides 1684 kcal (100% energy needs), 75gm protein (100% protein needs), 487ml free water. 2) TPN to meet 75% estimated needs if remains NPO 3) Bryce 1 pk BID for DFU Expected Outcomes/Goals: DFU to improve To maintain/gain weight To meet at least 75% estimated needs Fu 2-3 days Interpretation of weight loss: up to 5% in 1 month Muscle Mass (Severe): Mod to Severe Depletion Protein Calorie Malnutrition: Non-Severe Is there a minimum of two crit: Yes LIZZY ROLAND MD Jan 24, 2025 15:56
--- NOTE | 2025-01-24 15:56 | DVHPN2 ---
Consult Progress Note Date Seen: Jan 22, 2025 Subjective Patient reports: Other Objective vital signs Vital Sign Date Time Temp Pulse Resp B/P (MAP) Pulse Ox O2 Delivery O2 Flow Rate FiO2 01/24/25 14:15 114 18 122/63 (82) 100 45 01/24/25 13:45 97.9 208.2 01/24/25 08:00 Non-Rebreather 12 Total Intake and Output 01/23/25 01/23/25 01/24/25 15:00 23:00 07:00 Intake Total 100 ml 470 ml 911.00 ml Output Total 100 ml 150 ml Balance 100 ml 370 ml 761.00 ml medications Current Medications Medications Dose Ordered Sig/Zaria Route Start Time Stop Time Status Last Admin Dose Admin Ondansetron HCl 4 mg Q4HP PRN IV 01/06/25 15:00 Hold 01/20/25 10:24 4 MG Famotidine 20 mg Q12HR IV 01/07/25 10:00 UNV Diagnostic Test (Pha) 1 strip IQ4HR 01/07/25 08:00 Cancel Calcium Gluconate/ Sodium Chloride 50 ml @ 100 mls/hr Q30M IV 01/08/25 17:30 01/08/25 18:29 Cancel Pantoprazole Sodium 40 mg BID IV 01/10/25 10:00 01/24/25 11:36 40 MG Throat Lozenges 1 reza Q2HPRN PRN MT 01/12/25 22:45 Diphenhydramine HCl 50 mg Q8HR PRN IV 01/20/25 16:15 01/21/25 07:53 50 MG Metronidazole 100 ml @ 100 mls/hr Q8HR IV 01/20/25 22:00 01/24/25 14:00 100 MLS/HR Dextrose 50 ml UD PRN IV 01/20/25 16:45 01/21/25 16:29 50 ML Insulin Glargine 7 units QAM SC 01/21/25 08:30 Hold 01/21/25 08:52 7 UNITS Metoclopramide HCl 10 mg Q8HPRN PRN IV 01/21/25 16:30 Fluconazole 200 mg DAILY PO 01/23/25 10:00 01/24/25 11:36 200 MG Cefepime HCl 50 ml @ 12.5 mls/hr Q12H IV 01/23/25 18:00 7/4/25 06:43 12.5 MLS/HR Daptomycin 300 mg/ Sodium Chloride 50 ml @ 100 mls/hr DAILY IV 01/23/25 15:00 01/24/25 10:00 100 MLS/HR Furosemide 80 mg BIDD IV 01/23/25 18:00 01/24/25 06:50 80 MG Midazolam HCl 50 ml @ 1 mls/hr Q24H IV 01/24/25 04:00 01/24/25 04:14 1 MLS/HR Fentanyl Citrate 250 ml @ 2.5 mls/hr Q24H IV 01/24/25 04:00 01/24/25 04:15 2.5 MLS/HR Norepinephrine Bitartrate 250 ml @ 3.75 mls/hr Q24H IV 01/24/25 04:30 01/24/25 05:33 3.75 MLS/HR Diagnostic Test (Pha) 1 strip Q2HR 01/24/25 14:00 01/24/25 14:00 1 STRIP Dextrose 1,000 ml @ 50 mls/hr Q20H IV 01/24/25 13:30 01/24/25 13:31 50 MLS/HR Sodium Chloride 10 ml QSHIFT@10,22 IV 01/24/25 22:00 laboratory and microbiology Laboratory Tests 01/24/25 13:52 01/24/25 04:43 Test 01/24/25 13:52 Range/Units Serum Glucose 94 74-106 mg/dL Problem List/Assessment/Plan Problems(with codes): (1) Malnourished (2) History of diabetic ketoacidosis (3) Cannabinoid hyperemesis syndrome (4) Intractable abdominal pain (5) Inadequate oral intake (6) Appendicolith (7) Gallbladder hydrops (8) Gallstones (9) Fluid overload Problem List/Assessment/Plan Patient is a 44 year old with a past medical history of type 1 diabetes who presents with blood sugars of 940, altered mental status . was started on insulin drip and monitored in ICU . having respiratory distress and respiratory alkalosis . chest xray was unremarkable patient was started empirically on vancomycin and Zosyn . later developed swelling of the lips and out of concern of allergy Zosyn was stopped and switched to Aztreonam and vancomycin was stopped due to acute kidney injury and was switched to linezolid . patient has chronic bilateral foot wounds with no new ulcers , malnourished . both feet ulcers are on the planar surface with a necrotic planar base, on the right foot it looks newer with mild drainage. Currently tolerating antibiotics whitecount is 18.6 , creatinine is 2.24 and patient is on minimal vent and no requiring any presser support . microbiology cultures and respiratory cultures are negative . foot wound was swabbed and is growing MSSA and enterococcus facialis. unclear sensitivities . 01/18: growing MSSA and enterococcus that is sensitive to ampicillin and vancomycin . whitecount is at 21.6. 01/19: whitecount is 19.1 . blood sugars are more controlled . underwent MRI of feet bilaterally and no signs of osteomyelitis , only cellulitis 01/20: switched from aztreonam to cefepime and fluconazole because of candidal infection of the groin which is alse a concer for persistly elevated leukocytosis and ongoing visible cellulitis 01/21: worsening RADHA , may have to stop vancomycin early Plan : - would rather use line than oral for fluconazole for groin rash , will consider switching if RADHA continues to worsen - monitor closely to reaction for cefepime as patient possible developed one to Zosyn , if patients gives allergic response will give Benadryl stat and steroids - agree with new antibiotics - agree with stopping aztreonam an d linezolid - agree with switch to vancomycin - if patient continues to have signs of infection will consider acquiring a ct of lower extremities bilaterally to evaluate for unseen abscess or osteomyelitis but can hold off for now - continues empiric coverage - add flagyl to account for loss of anaerobic coverage of necrotic ulcer - defer DKA management to primary care team - defer management of vent support to keep O2 sats above 95% to pattern generator operator team - f/u on pending blood cultures Authorized and Performed by: Lizzy Roland Total critical care time: Approximately 76 minutes Due to a high probability of clinically significant, life threatening deterioration, the patient required my highest level of preparedness to intervene emergently and I personally spent this critical care time directly and personally managing the patient. This critical care time included obtaining a history; examining the patient; pulse oximetry; ordering and review of studies; arranging urgent treatment with development of a management plan; evaluation of patient's response to treatment; frequent reassessment; and, discussions with other providers. This critical care time was performed to assess and manage the high probability of imminent, life-threatening deterioration that could result in multi-organ failure. It was exclusive of separately billable procedures and treating other patients and teaching time. Plan discussed with: Other Dietary Evaluation Review Recommendations by RD: Increase Calorie Intake Comments: Nutrition Recommendation: 1) Vital AF 1.2Cal @ 25ml/hr along with Pro-stat 1 pk BID. start @ 20ml/hr, increase 10ml/hr Q4H until goal is reached. TF @ goal volume along with propofol, IV D5wNS0.45%, and Pro-stat provides 1684 kcal (100% energy needs), 75gm protein (100% protein needs), 487ml free water. 2) TPN to meet 75% estimated needs if remains NPO 3) Bryce 1 pk BID for DFU Expected Outcomes/Goals: DFU to improve To maintain/gain weight To meet at least 75% estimated needs Fu 2-3 days Interpretation of weight loss: up to 5% in 1 month Muscle Mass (Severe): Mod to Severe Depletion Protein Calorie Malnutrition: Non-Severe Is there a minimum of two crit: Yes LIZZY ROLAND MD Jan 24, 2025 15:56
--- NOTE | 2025-01-24 16:05 | DVHPN2 ---
Consult Progress Note Date Seen: Jan 23, 2025 Subjective Patient reports: Other (now on 2 liters nasal canula intermittedly , hypertensive . RADHA continues to worsen ) Objective vital signs Vital Sign Date Time Temp Pulse Resp B/P (MAP) Pulse Ox O2 Delivery O2 Flow Rate FiO2 01/24/25 14:15 114 18 122/63 (82) 100 45 01/24/25 13:45 97.9 208.2 01/24/25 08:00 Non-Rebreather 12 Total Intake and Output 01/23/25 01/23/25 01/24/25 15:00 23:00 07:00 Intake Total 100 ml 470 ml 911.00 ml Output Total 100 ml 150 ml Balance 100 ml 370 ml 761.00 ml medications Current Medications Medications Dose Ordered Sig/Zaria Route Start Time Stop Time Status Last Admin Dose Admin Ondansetron HCl 4 mg Q4HP PRN IV 01/06/25 15:00 Hold 01/20/25 10:24 4 MG Famotidine 20 mg Q12HR IV 01/07/25 10:00 UNV Diagnostic Test (Pha) 1 strip IQ4HR 01/07/25 08:00 Cancel Calcium Gluconate/ Sodium Chloride 50 ml @ 100 mls/hr Q30M IV 01/08/25 17:30 01/08/25 18:29 Cancel Pantoprazole Sodium 40 mg BID IV 01/10/25 10:00 01/24/25 11:36 40 MG Throat Lozenges 1 reza Q2HPRN PRN MT 01/12/25 22:45 Diphenhydramine HCl 50 mg Q8HR PRN IV 01/20/25 16:15 01/21/25 07:53 50 MG Metronidazole 100 ml @ 100 mls/hr Q8HR IV 01/20/25 22:00 01/24/25 14:00 100 MLS/HR Dextrose 50 ml UD PRN IV 01/20/25 16:45 01/21/25 16:29 50 ML Insulin Glargine 7 units QAM SC 01/21/25 08:30 Hold 01/21/25 08:52 7 UNITS Metoclopramide HCl 10 mg Q8HPRN PRN IV 01/21/25 16:30 Fluconazole 200 mg DAILY PO 01/23/25 10:00 01/24/25 11:36 200 MG Cefepime HCl 50 ml @ 12.5 mls/hr Q12H IV 01/23/25 18:00 01/24/25 06:43 12.5 MLS/HR Daptomycin 300 mg/ Sodium Chloride 50 ml @ 100 mls/hr DAILY IV 01/23/25 15:00 01/24/25 10:00 100 MLS/HR Furosemide 80 mg BIDD IV 01/23/25 18:00 01/24/25 06:50 80 MG Midazolam HCl 50 ml @ 1 mls/hr Q24H IV 01/24/25 04:00 01/24/25 04:14 1 MLS/HR Fentanyl Citrate 250 ml @ 2.5 mls/hr Q24H IV 01/24/25 04:00 01/24/25 04:15 2.5 MLS/HR Norepinephrine Bitartrate 250 ml @ 3.75 mls/hr Q24H IV 01/24/25 04:30 01/24/25 05:33 3.75 MLS/HR Diagnostic Test (Pha) 1 strip Q2HR 01/24/25 14:00 01/24/25 14:00 1 STRIP Dextrose 1,000 ml @ 50 mls/hr Q20H IV 01/24/25 13:30 01/24/25 13:31 50 MLS/HR Sodium Chloride 10 ml QSHIFT@10,22 IV 01/24/25 22:00 laboratory and microbiology Laboratory Tests 01/24/25 13:52 01/24/25 04:43 Test 01/24/25 13:52 Range/Units Serum Glucose 94 74-106 mg/dL Problem List/Assessment/Plan Problems(with codes): (1) Fluid overload (2) Gallstones (3) Gallbladder hydrops (4) History of diabetic ketoacidosis (5) Cannabinoid hyperemesis syndrome (6) Intractable abdominal pain (7) Inadequate oral intake (8) Appendicolith Problem List/Assessment/Plan Problem List/Assessment/Plan Patient is a 44 year old with a past medical history of type 1 diabetes who presents with blood sugars of 940, altered mental status . was started on insulin drip and monitored in ICU . having respiratory distress and respiratory alkalosis . chest xray was unremarkable patient was started empirically on vancomycin and Zosyn . later developed swelling of the lips and out of concern of allergy Zosyn was stopped and switched to Aztreonam and vancomycin was stopped due to acute kidney injury and was switched to linezolid . patient has chronic bilateral foot wounds with no new ulcers , malnourished . both feet ulcers are on the planar surface with a necrotic planar base, on the right foot it looks newer with mild drainage. Currently tolerating antibiotics whitecount is 18.6 , creatinine is 2.24 and patient is on minimal vent and no requiring any presser support . microbiology cultures and respiratory cultures are negative . foot wound was swabbed and is growing MSSA and enterococcus facialis. unclear sensitivities . 01/18: growing MSSA and enterococcus that is sensitive to ampicillin and vancomycin . whitecount is at 21.6. 01/19: whitecount is 19.1 . blood sugars are more controlled . underwent MRI of feet bilaterally and no signs of osteomyelitis , only cellulitis 01/20: switched from aztreonam to cefepime and fluconazole because of candidal infection of the groin which is alse a concer for persistly elevated leukocytosis and ongoing visible cellulitis 01/21: worsening RADHA , may have to stop vancomycin early 01/22: Worsening RADHA , likely edema in the lungs . vancomycin troths was 19.3 on the higher end of normal Plan : - Stop Vancomycin and Fluconazole - switch back to IV linezolid and topical nystatin 2x a day for growing fungal infection - continue cefepime - under thoracentesis due to plural effusion and f/u on any plural studies done - if patient continues to have signs of infection will consider acquiring a ct of lower extremities bilaterally to evaluate for unseen abscess or osteomyelitis but can hold off for now - continues empiric coverage - add flagyl to account for loss of anaerobic coverage of necrotic ulcer - defer DKA management to primary care team - defer management of vent support to keep O2 sats above 95% to production control clerk team - f/u on pending blood cultures Authorized and Performed by: Lizzy Roland Total critical care time: Approximately 76 minutes Due to a high probability of clinically significant, life threatening deterioration, the patient required my highest level of preparedness to intervene emergently and I personally spent this critical care time directly and personally managing the patient. This critical care time included obtaining a history; examining the patient; pulse oximetry; ordering and review of studies; arranging urgent treatment with development of a management plan; evaluation of patient's response to treatment; frequent reassessment; and, discussions with other providers. This critical care time was performed to assess and manage the high probability of imminent, life-threatening deterioration that could result in multi-organ failure. It was exclusive of separately billable procedures and treating other patients and teaching time. Plan discussed with: Other Dietary Evaluation Review Recommendations by RD: Increase Calorie Intake Comments: Nutrition Recommendation: 1) Vital AF 1.2Cal @ 25ml/hr along with Pro-stat 1 pk BID. start @ 20ml/hr, increase 10ml/hr Q4H until goal is reached. TF @ goal volume along with propofol, IV D5wNS0.45%, and Pro-stat provides 1684 kcal (100% energy needs), 75gm protein (100% protein needs), 487ml free water. 2) TPN to meet 75% estimated needs if remains NPO 3) Bryce 1 pk BID for DFU Expected Outcomes/Goals: DFU to improve To maintain/gain weight To meet at least 75% estimated needs Fu 2-3 days Interpretation of weight loss: up to 5% in 1 month Muscle Mass (Severe): Mod to Severe Depletion Protein Calorie Malnutrition: Non-Severe Is there a minimum of two crit: Yes LIZZY ROLAND MD Jan 24, 2025 16:05
[2025-01-24] MEDS: MEROPENEM 1GM IVPB 50 ML IV ONE (16:15)
--- NOTE | 2025-01-24 16:44 | DVHNC2 ---
ANABELL REVELES RESIDENT 01/24/25 1644: Procedure - Procedure: Non tunneled hemodialysis catheter/Dean catheter placement INDICATION: Renal Replacement Therapy due to acute need for hemodialysis access secondary to RADHA on CKD PROCEDURE LICENSED NURSE PRACTITIONER: Anabell Reveles, PGY2 ATTENDING PHYSICIAN: Dr. Colindres CONSENT: During the informed consent discussion regarding the procedure, or treatment, I explained the following to the designee: a. Nature of the procedure or treatment and who will perform the procedure or treatment. b. Necessity for procedure and the possible benefits. c. Risks and complications (most common and serious). d. Alternative treatments and the risks, benefits and side effects of each (including no treatment). e. Likelihood of the patient achieving his/her goals without this procedure and surgery treatment. f. Problems that might occur during the recuperation. g. Conflicts of interest, if any PROCEDURE SUMMARY: The [facility] Dean Catheter Insertion Practices form was completed by an independent observer starting with the first handwash prior to starting sterile technique. A time out was performed. My hands were washed immediately prior to the procedure. I wore a surgical cap, mask with protective eyewear, full gown and sterile gloves throughout the procedure. The patient was placed in Trendelenburg position. RIGHT chest region was prepped using chlorhexidine scrub and draped in sterile fashion using a full drape and sterile probe cover and sterile gel employed. The medial and lateral heads of the sternocleidomastoid muscle were identified as was the carotid pulse. The Internal Jugular vein was identified using the ultrasound. Using real-time out of plane guidance, the introducer needle was inserted into the Internal Jugular vein under direct ultrasound visualization. Venous blood was withdrawn. The syringe was removed and a guidewire was advanced into the introducer needle. The guidewire was visualized in the Internal Jugular Vein by ultrasound. A small incision was made at the skin surface with a scalpel and the introducer needle was exchanged for a dilator over the guidewire. After appropriate dilation was obtained, the dilator was exchanged over the wire for a Dean catheter. The wire was removed and the catheter was sutured in place. A sterile sorbaview shield was placed over the catheter at the insertion site. The patient tolerated the procedure without any hemodynamic compromise. At time of procedure completion, all ports aspirated and flushed properly. Post-procedure catheter flushed and locked with heparin. chest x-ray is pending at this time. Estimated blood loss is 5ml PATRICIA COLINDRES MD 01/25/25 1655: Date of Service: Jan 24, 2025 Billing Provider: PATRICIA COLINDRES MD Common Visit Codes: PROCEDURE ONLY Procedure Codes: 14485-UKCDFB NON-TUNNEL CV CATH ANABELL REVELES Jan 24, 2025 16:44 PATRICIA COLINDRES MD Jan 25, 2025 16:55
[2025-01-24] MEDS: InsuLIN REG 1unit/0.01ml Soln (100units/ml) SC ONE (17:00)
--- NOTE | 2025-01-24 17:03 | DVH ---
CHEST RADIOGRAPH Indication: NAVIN CATHETER PACEMENT . ETT PLACEMENT Technique: Single frontal view of the chest was obtained COMPARISON: XY CHEST PORTABLE on DOS: 01/24/25, XY CHEST PORTABLE on DOS: 01/24/25, XY CHEST XRAY 1 VIEW on DOS: 01/23/25, XY CHEST PORTABLE on DOS: 01/21/25, XY CHEST PORTABLE on DOS: 01/13/25 FINDINGS: Lines and Tubes: Endotracheal tube, enteric catheter and right central venous catheter and right PICC in satisfactory position Lungs: Multifocal airspace disease Pleura: No effusion. No pneumothorax. Cardiomediastinal contours: Unremarkable Bones: Unremarkable IMPRESSION: Lines and tubes in satisfactory position. Slightly improved aeration.
[2025-01-24 18:14] LABS: Potassium 3.5 mmol/L (3.5-5.1)
[2025-01-24 18:15] LABS: Anion Gap 12 (5-15); Carbon Dioxide 22 mmol/L (20-31)
[2025-01-24 18:16] LABS: Calcium 7.3 mg/dL (8.7-10.4); Chloride 117 mmol/L (98-107); Sodium 151 mmol/L (136-145)
[2025-01-24 18:20] LABS: BUN/Creatinine Ratio 9.1 (10.0-20.0)
[2025-01-24 18:26] LABS: Blood Urea Nitrogen 31 mg/dL (9-23); Glucose 125 mg/dL (74-106)
[2025-01-24] MEDS: InsuLIN REG 1unit/0.01ml Soln (100units/ml) SC SCH (20:31)
[2025-01-24] MEDS: LINEZOLID 600MG/300ML 300 ML IV SCH (22:07)
[2025-01-24] MEDS: SODIUM CHLOR 0.9% PF (SALINE LOCK) 10ML VIAL/SYR IV SCH (22:08)
[2025-01-24] MEDS: NYSTATIN TOPICAL POWDER 15GM TOP SCH (22:11)
[2025-01-25] VITALS (101 sets, daily range): BP systolic 92–116; BP diastolic 44–55; PULSE 97–116; RESP 16–24; TEMP 96.8–99.5; O2SAT 92–100
--- NOTE | 2025-01-25 06:09 | DVH ---
CHEST RADIOGRAPH Indication: intubated Technique: Single frontal view of the chest was obtained Comparison: XY CHEST PORTABLE on DOS: 01/24/25, XY CHEST PORTABLE on DOS: 01/24/25, XY CHEST PORTABLE on DOS: 01/24/25, XY CHEST XRAY 1 VIEW on DOS: 01/23/25, XY CHEST PORTABLE on DOS: 01/21/25, XY CHEST PORTABLE on DOS: 01/24/25 FINDINGS: Lines and Tubes: Endotracheal tube, enteric catheter and right central venous catheter and right PICC in satisfactory position Lungs: Multifocal airspace disease Pleura: No effusion. No pneumothorax. Cardiomediastinal contours: Unremarkable Bones: Unremarkable IMPRESSION: Lines and tubes in satisfactory position. Slightly improved aeration.
[2025-01-25 06:46] LABS: Anion Gap 11 (5-15); BUN/Creatinine Ratio 7.5 (10.0-20.0); Blood Urea Nitrogen 21 mg/dL (9-23); Carbon Dioxide 25 mmol/L (20-31); Potassium 3.6 mmol/L (3.5-5.1)
[2025-01-25 06:48] LABS: Bilirubin, Total 0.7 mg/dL (0.2-1.0)
[2025-01-25 06:57] LABS: Chloride 111 mmol/L (98-107); Glucose 117 mg/dL (74-106); Sodium 147 mmol/L (136-145)
[2025-01-25 06:58] LABS: Alanine Aminotransferase < 9 U/L (7-40); Albumin 1.8 g/dL (3.2-4.8); Alkaline Phosphatase 274 U/L (46-116); Calcium 7.2 mg/dL (8.7-10.4); Total Protein 4.2 g/dL (5.7-8.2)
[2025-01-25 07:23] LABS: Hematocrit 19.7 % (41.0-53.0); Mean Corpuscular Hemoglobin 23.6 pg (28.0-32.0); Mean Corpuscular Volume 73.8 fL (80.0-100.0)
[2025-01-25 07:34] LABS: Hemoglobin 6.3 g/dL (13.5-17.5)
[2025-01-25 08:36] LABS: Total Cells Counted 100.0 (100)
[2025-01-25 08:37] LABS: Anisocytosis Slight; Stomatocytes Few
[2025-01-25 10:06] LABS: Nucleated Red Blood Cells % 0.1 %
[2025-01-25 10:08] LABS: Hematocrit 19.7 % (41.0-53.0); Mean Corpuscular Hemoglobin 23.7 pg (28.0-32.0); Mean Corpuscular Volume 75.4 fL (80.0-100.0)
[2025-01-25 10:09] LABS: Hemoglobin 6.2 g/dL (13.5-17.5)
--- NOTE | 2025-01-25 10:25 | DVHPN2 ---
Progress Note - Dictate Date Seen: Jan 25, 2025 Medical Necessity Reason Pt with a Central, PICC or Fol: No The following are medically ne: Jones Catheter Reason for jones catheter: Strict I&O Subjective Tolerated initial dialysis yesterday Jones catheter removed as patient remained persistently oligo/ anuric Remains intubated vital signs Vital Sign Date Time Temp Pulse Resp B/P (MAP) Pulse Ox O2 Delivery O2 Flow Rate FiO2 01/25/25 10:12 101 20 102/50 (67) 99 30 01/25/25 07:00 99.1 210.4 01/25/25 06:00 Mechanical Ventilator+ 01/24/25 08:00 12 Total Intake and Output 01/24/25 01/24/25 01/25/25 15:00 23:00 07:00 Intake Total 395.50 ml 454.75 ml 699 ml Output Total 40 ml 10 ml Balance 395.50 ml 414.75 ml 689 ml medications Current Medications Medications Dose Ordered Sig/Zaria Route Start Time Stop Time Status Last Admin Dose Admin Ondansetron HCl 4 mg Q4HP PRN IV 01/06/25 15:00 Hold 01/20/25 10:24 4 MG Famotidine 20 mg Q12HR IV 01/07/25 10:00 UNV Diagnostic Test (Pha) 1 strip IQ4HR 01/07/25 08:00 Cancel Calcium Gluconate/ Sodium Chloride 50 ml @ 100 mls/hr Q30M IV 01/08/25 17:30 01/08/25 18:29 Cancel Pantoprazole Sodium 40 mg BID IV 01/10/25 10:00 01/25/25 09:50 40 MG Throat Lozenges 1 reza Q2HPRN PRN MT 01/12/25 22:45 Diphenhydramine HCl 50 mg Q8HR PRN IV 01/20/25 16:15 01/21/25 07:53 50 MG Dextrose 50 ml UD PRN IV 01/20/25 16:45 01/21/25 16:29 50 ML Insulin Glargine 7 units QAM SC 01/21/25 08:30 Hold 01/21/25 08:52 7 UNITS Metoclopramide HCl 10 mg Q8HPRN PRN IV 01/21/25 16:30 Furosemide 80 mg BIDD IV 01/23/25 18:00 01/24/25 06:50 80 MG Midazolam HCl 50 ml @ 1 mls/hr Q24H IV 01/24/25 04:00 01/24/25 04:14 1 MLS/HR Fentanyl Citrate 250 ml @ 2.5 mls/hr Q24H IV 01/24/25 04:00 01/24/25 04:15 2.5 MLS/HR Norepinephrine Bitartrate 250 ml @ 3.75 mls/hr Q24H IV 01/24/25 04:30 01/24/25 05:33 3.75 MLS/HR Diagnostic Test (Pha) 1 strip Q2HR 01/24/25 14:00 01/25/25 09:39 1 STRIP Dextrose 1,000 ml @ 50 mls/hr Q20H IV 01/24/25 13:30 01/24/25 20:26 50 MLS/HR Sodium Chloride 10 ml QSHIFT@10,22 IV 01/24/25 22:00 01/25/25 09:51 10 ML Linezolid 300 ml @ 150 mls/hr Q12HR IV 01/24/25 22:00 01/25/25 09:51 150 MLS/HR Insulin Human Regular IQ4HR SC 01/24/25 20:00 Nystatin 1 applic BID TOP 01/24/25 22:00 01/25/25 09:51 1 APPLIC objective Gen: Intubated, cachectic lungs: cta anteriorly cvs: no rub ext: + edema laboratory and microbiology Laboratory Tests 01/25/25 08:15 01/25/25 05:01 Test 01/25/25 05:01 Range/Units Serum Glucose 117 H 74-106 mg/dL Assessment/Plan Acute kidney injury superimposed Chronic Kidney Disease stage IIIB secondary hemodynamic mediated ATN, FeNa > 2% - recurrent Acute hypoxic respiratory failure, patient extubated Diabetic/ ? Starvation ketoacidosis Hypernatremia due to dehydration Hypocalcemia Hypomagnesemia Hypokalemia Anemia of chronic kidney disease Recommendations - metabolic parameters significantly improved - without urgent indication for dialysis today - we will continue to evaluate daily - even fluid balance, may consider isolated ultrafiltration tomorrow if needed Dietary Evaluation Review Recommendations by RD: Increase Calorie Intake Comments: Nutrition Recommendation: 1) Vital AF 1.2Cal @ 25ml/hr along with Pro-stat 1 pk BID. start @ 20ml/hr, increase 10ml/hr Q4H until goal is reached. TF @ goal volume along with propofol, IV D5wNS0.45%, and Pro-stat provides 1684 kcal (100% energy needs), 75gm protein (100% protein needs), 487ml free water. 2) TPN to meet 75% estimated needs if remains NPO 3) Bryce 1 pk BID for DFU Expected Outcomes/Goals: DFU to improve To maintain/gain weight To meet at least 75% estimated needs Fu 2-3 days Interpretation of weight loss: up to 5% in 1 month Muscle Mass (Severe): Mod to Severe Depletion Protein Calorie Malnutrition: Non-Severe Is there a minimum of two crit: Yes Plan discussed with: Other CARLYN MOBLEY MD Jan 25, 2025 10:25
[2025-01-25 11:18] LABS: Base Excess -0.6 mmol/L (-2.0-3.0)
[2025-01-25] MEDS ORDERED: DEXTROSE (50%) 50ML SYRG IV SCH (13:15)
[2025-01-25] MEDS ORDERED: TPN PER PHARMACY 0 ML IV SCH (13:15)
--- NOTE | 2025-01-25 13:16 | DVHPN2 ---
Subjective Patient is a 44-year-old male with known history of type 1 diabetes mellitus who presented on 01/06/2025 via EMS for altered level of consciousness. Per EMS, the patient was found unresponsive with a blood glucose of 931 and received 400 cc IV fluids on route. On arrival he exhibited hypoxia, generalized weakness, increased work of breathing necessitating intubation and mechanical ventilation. Patient was started on IV insulin drip, Zosyn and vancomycin with bicarbonate for severe acidosis. A right femoral central line, midline and peripheral IVs were also placed. Of note, patient has a history of poor adherence to his insulin therapy. Per patient's father, patient lives alone in a trailer and had not been heard from since 01/02/2025. Patient was last hospitalized at the [facility] in November 2024 for DKA. On 01/07/2025, patient developed lip swelling while still intubated, chart review revealed a penicillin allergy. Zosyn was discontinued and patient was treated with methylprednisolone and transitioned to meropenem. Nephrology was consulted for RADHA and hypernatremia. A 01/10/2025, patient had begun to improve and was weaned off sedation and was extubated on 01/12/2025 and transferred telemetry. Antibiotics were discontinued at that time due to uncertainty about the cause of leukocytosis (steroids versus infection). However, WBCs continued to trend upwards and the patient developed low-grade fevers, subsequently restarted on linezolid and aztreonam. Patient has bilateral diabetic foot ulcers, left side more advanced than right. MRI of bilateral extremities shows mild subcutaneous edema, possibly cellulitis but no signs of osteomyelitis. Patient was also noted to have a pressure related ulcer to the left heel. Lower extremity arterial Doppler showed no significant stenosis. Vascular surgery evaluated the ulcers but recommended no interventions at this time. Podiatry already on board. 01/20/2025: Held insulin Lantus, discontinued lispro, mild sliding scale q.4 hours only. Started IV fluconazole for candidal infection in the groin. Podiatry reconsulted for evaluation of bilateral lower extremity ulcers. GI consult for anemia and positive stool occult blood. Discontinued linezolid and aztreonam, started on cefepime, vancomycin and metronidazole. 01/21/25: notes improved but continued nausea, new onset abdominal pain 9-10/10, localized to mid abdomen. Patient refused MRI owing to abdominal pain, we will reattempt tomorrow. Added metoclopramide qD along with norco and morphine as needed. Blood glucose in 290s, resumed lantus 7units qAM, however, dropping blood sugar by 4pm therefore discontinued lantus again. Pt refuses to eat and has severe aversion to food 01/22/25: improved abdominal pain today -01/30, agreeable to CT abdomen however still refusing MRI L foot. Plan to reattempt tomorrow. new moderate R sided hydronephrosis noted, urology consulted. denies dyspnea, sob. improving nausea. 01/23/2025: Patient notes feeling weaker than yesterday, denies abdominal pain. On physical exam decreased breath sounds more prominent on the left side and some crackles bibasilar. Discontinued vancomycin and started patient on daptomycin. Repeated left foot MRI which showed cellulitis in the lateral 4 for deep to the 5th metatarsal bone marrow wound is noted with overlying dressing, no evidence of osteomyelitis. IV furosemide was increased to 40 mg b.i.d. and patient was transferred to [facility]. 01/24/2025: Overnight patient was intubated due to increasing respiratory distress, patient also underwent thoracentesis with 900 mL of fluid removed on the left side. For starvation/diabetic ketoacidosis, patient was started on an insulin drip and D10, gap was closed and bicarb was stabilized at 20. Blood glucose was 100 with a insulin drip was stopped, patient was started on D5 water at 50 cc/hours. Nephrology increased IV Lasix to 80 mg b.i.d. along with plan for renal replacement therapy tentatively in the p.m.. 01/25/2025- patient received right IJ Dean cath HD cath yesterday. Dialysis done 1 L removed. Today patient continues to have right upper extremity edema 2+. Left upper extremity is restricted has trace pitting edema and restricted due to history of DVT. Patient also has 1 to trace pedal edema bilaterally. Up to mid shins. Patient is not requiring any vasopressors. Patient is ventilated and due to acute hypoxic respiratory failure. Patient has no p.o. intake due to large gastric bubble and possible gastroparesis from prolonged uncontrolled diabetes. We will do TPN via PICC line now and hold off any enteral feeds. Continue IV antibiotics. Patient is anemic less than 7, 1 unit PRBC. Tentative plan to get EPO with HD, which may help. No sources of obvious hemorrhage. We are continuing D5 W for hypernatremia. We will do some education vacation today and if goes well possible CPAP trials tomorrow. We will continue sliding scale insulin Q 2. Patient antibiotics IV is linezolid only. Reviewed: Care Plan, H&P, Labs, Medications, Previous Orders, Radiology Changes from previous H/P or p: No Changes General: Per HPI Eyes: No Pain, No Vision change, No Conjunctivae inflammation, No Eyelid inflammation, No Other, No Redness ENT: No Ear pain, No Ear discharge, No Nose pain, No Nose discharge, No Nose congestion, No Mouth pain, No Mouth swelling, No Throat pain, No Throat swelling, No Other Cardiovascular: No Chest Pain, No Palpitations, No Orthopnea, No Paroxysmal Noc. Dyspnea, No Edema, No Lt Headedness, No Other Respiratory: No Cough, No Dry, No Shortness of breath, No SOB with excertion, No Wheezing, No Hemoptysis, No Pleuritic Pain, No Sputum, No Other Gastrointestinal: No Nausea, No Vomiting, No Abdominal Pain, No Diarrhea, No Constipation, No Melena, No Hematochezia, No Other Genitourinary: No Dysuria, No Frequency, No Incontinence, No Hematuria, No Retention; Other (Owens catheter in place) Musculoskeletal: No other, No neck pain, No shoulder pain, No arm pain, No back pain, No hand pain, No leg pain, No foot pain Skin: No Rash, No Lesions, No Jaundice, No Bruising, No Other Objective Vitals Vital Signs Date Time Temp Pulse Resp B/P (MAP) Pulse Ox O2 Delivery O2 Flow Rate FiO2 01/25/25 12:10 102 20 110/52 (71) 98 30 01/25/25 10:00 Mechanical Ventilator+ 01/25/25 07:00 99.1 210.4 01/24/25 08:00 12 Intake/Output Intake and Output 01/25/25 07:00 Intake Total 1549.25 ml Output Total 50 ml Balance 1499.25 ml Intake Oral 0 ml IV Total 1549.25 ml Output Urine Total 50 ml Stool Total 0 ml General Appearance: Other (Confused and lethargic) HEENT: Atraumatic, PERRLA, EOMI, Mucous membr. moist/pink Neck: Supple Lungs: Clear to auscultation, Normal air movement Cardiovascular: Regular rate, Normal S1, Normal S2, No murmurs, Gallops, Rubs Abdomen: Normal bowel sounds, Soft, No tenderness Neuro: Other (Confused, unable to exam) Psych/Mental Status: Other (Lethargic) Medications Current Medications Medications Dose Ordered Sig/Zaria Route Start Time Stop Time Status Last Admin Dose Admin Ondansetron HCl 4 mg Q4HP PRN IV 01/06/25 15:00 Hold 01/20/25 10:24 4 MG Famotidine 20 mg Q12HR IV 01/07/25 10:00 UNV Diagnostic Test (Pha) 1 strip IQ4HR 01/07/25 08:00 Cancel Calcium Gluconate/ Sodium Chloride 50 ml @ 100 mls/hr Q30M IV 01/08/25 17:30 01/08/25 18:29 Cancel Pantoprazole Sodium 40 mg BID IV 01/10/25 10:00 01/25/25 09:50 40 MG Throat Lozenges 1 reza Q2HPRN PRN MT 01/12/25 22:45 Diphenhydramine HCl 50 mg Q8HR PRN IV 01/20/25 16:15 01/21/25 07:53 50 MG Dextrose 50 ml UD PRN IV 01/20/25 16:45 01/21/25 16:29 50 ML Insulin Glargine 7 units QAM SC 01/21/25 08:30 Hold 01/21/25 08:52 7 UNITS Metoclopramide HCl 10 mg Q8HPRN PRN IV 01/21/25 16:30 Furosemide 80 mg BIDD IV 01/23/25 18:00 01/24/25 06:50 80 MG Midazolam HCl 50 ml @ 1 mls/hr Q24H IV 01/24/25 04:00 01/24/25 04:14 1 MLS/HR Fentanyl Citrate 250 ml @ 2.5 mls/hr Q24H IV 01/24/25 04:00 01/24/25 04:15 2.5 MLS/HR Norepinephrine Bitartrate 250 ml @ 3.75 mls/hr Q24H IV 01/24/25 04:30 01/24/25 05:33 3.75 MLS/HR Diagnostic Test (Pha) 1 strip Q2HR 01/24/25 14:00 01/25/25 12:10 1 STRIP Dextrose 1,000 ml @ 50 mls/hr Q20H IV 01/24/25 13:30 01/24/25 20:26 50 MLS/HR Sodium Chloride 10 ml QSHIFT@10,22 IV 01/24/25 22:00 01/25/25 09:51 10 ML Linezolid 300 ml @ 150 mls/hr Q12HR IV 01/24/25 22:00 01/25/25 09:51 150 MLS/HR Insulin Human Regular IQ4HR SC 01/24/25 20:00 01/25/25 12:11 3 UNITS Nystatin 1 applic BID TOP 01/24/25 22:00 01/25/25 09:51 1 APPLIC Laboratory Results Laboratory Tests 01/25/25 05:01 01/25/25 08:15 Chemistry Test 01/24/25 13:52 01/24/25 17:53 01/25/25 05:01 Calcium Level 7.5 mg/dL (8.7-10.4) L 7.3 mg/dL (8.7-10.4) L 7.2 mg/dL (8.7-10.4) L Albumin 1.8 g/dL (3.2-4.8) L Total Protein 4.2 g/dL (5.7-8.2) L LFT Test 01/25/25 05:01 Alanine Aminotransferase (ALT) < 9 U/L (7-40) Alkaline Phosphatase 274 U/L (46-116) H Aspartate Amino Transferase (AST) 20 U/L (13-40) Total Bilirubin 0.7 mg/dL (0.2-1.0) Urinalysis Test 01/08/25 18:27 01/10/25 11:50 01/22/25 17:30 Urine Osmolality 300 mOsm/kg Urine Creatinine 26.27 mg/dL (30.0-125.0) L Urine Protein/Creatinine Ratio 7.12 Urine Sodium 79 mmol/L (40-220) Urine Total Protein 187.1 mg/dL (1-14) H Urine Color Colorless (Yellow) Urine Clarity Turbid (Clear) H Urine pH 6.0 (5.0-9.0) Urine Specific Suches 1.011 (1.001-1.035) Urine Protein 2+ (Negative) H Urine Ketones Negative (Negative) Urine Blood 3+ /uL (Negative) H Urine Nitrite Negative (Negative) Urine Bilirubin Negative (Negative) Urine Urobilinogen Normal mg/dL (Negative) Urine Leukocyte Esterase Negative /uL (Negative) Urine RBC 702 /hpf (0 - 3) Urine Microscopic WBC < 1 /HPF (0-3) Urine Squamous Epithelial Cells Few /hpf (<5) Urine Bacteria None seen /hpf (None Seen) Urine Hyaline Casts Few /lpf (0 - 2) Urine Mucus Few (None Seen) Urine Glucose 2+ mg/dL (Normal) H Blood Gas Results Test 01/24/25 13:32 01/25/25 08:06 Arterial Blood pH 7.309 (7.350-7.450) 7.434 (7.350-7.450) FiO2 % 60.0 30.0 Microbiology Microbiology Date/Time Source Procedure Growth Status 01/24/25 04:15 Sputum Gram Stain - Final Resulted 01/24/25 04:15 Sputum Respiratory Culture - Preliminary Resulted 01/23/25 20:30 Pleural Fluid Gram Stain - Final Resulted 01/23/25 20:30 Pleural Fluid Body Fluid Culture - Preliminary Resulted 01/22/25 17:30 Voided Urine Urine Culture - Final Complete 01/19/25 16:06 Nose MRSA Screen - Final Complete 01/16/25 19:00 Blood Blood Culture - Final NO GROWTH AFTER 5 DAYS OF INCUBATION. Complete 01/08/25 10:37 Stool Stool Culture - Final Complete 01/08/25 10:37 Stool Shiga Toxin I & II - Final Complete Assessment/Plan Assessment/Plan Neurology # acute metabolic encephalopathy likely due to DKA vs Sepsis, improving - head CT from 01/07/2025: No acute territorial infarct, intracranial hemorrhage or mass effect - head CT from 01/19/2025: No acute intracranial abnormality - monitor Cardiovascular # runs of AFib on EKG # prolonged QTC # Essential hypertension - avoiding QT prolonging drugs - echocardiogram from 07/20/2022: Overall preserved ventricular systolic function. EF 60%. Grade 1 diastolic dysfunction. - increased amlodipine to 10mg qD - repeat echo - monitor Respiratory # Community acquired pneumonia, Gram-positive versus Gram-negative # Acute hypoxic respiratory failure due to above, intubated and mechanically ventilated # moderate-large b/l Pleural effusions - CXR 01/08/25: Bibasilar atelectasis or pneumonia. - CXR 01/20/25: Patchy bilateral airspace disease, [id number], slightly increased - previously on meropenem and vancomycin, stopped on 01/12/2025 - started on aztreonam on 01/17/2025, linezolid 01/16/2025 - discontinued aztreonam and linezolid on 01/20/2025 - started cefepime, vancomycin and metronidazole on 01/20/2025 - discontinued vancomycin 01/23/2025 - s/p thoracentesis with 900 mL of fluid removed on 01/23/2025 - linezolid only 01/24/25 Ventilator: AC/VC Tidal volume 450 Respiratory rate 18 Peep 8 FiO2 60% GI # Acute intractable abdominal pain (01/21/25), improved # Microcytic anemia possibly 2' to ?LGI bleed; Hb 7.8 # Moderate abdominopelvic ascites # Peptic ulcer prophylaxis - stool occult blood positive - GI consult - CT abdomen pelvis from 01/07/2025: Nonspecific periportal edema. Incidental finding. -Pantoprazole 40 mg IV daily - serum lipase 113 - repeat CT abdomen pelvis (01/22/25): Moderate to large bilateral pleural effusions with patchy and consolidative infiltrates in the lung bases likely a combination of pneumonia and atelectasis.mLow to moderate volume abdominopelvic ascites and diffuse subcutaneous edema suggestive of anasarca. Moderate right hydronephrosis without visualization of hydroureter or obstructing calculi. This appearance is new versus CT scan dated 01/07/2025. Gallbladder hydrops without visualization of gallstones. This appearance may indicate acalculous cholecystitis. Fluid-filled colon with multiple air-fluid levels present, possibly related to diarrheal illness. No evidence of bowel obstruction, acute appendicitis, or other acute process in the abdomen or pelvis. Nephrology/ # RADHA likely hemodynamically mediated/VMN on possible CKD stage 3 # Anasarca due to above # severe hypoalbuminemia, serum albumin 2 # Diabetic nephropathy likely # Severe hypokalemia, improving # hypernatremia, now improved # asymptomatic hypocalcemia, corrected Ca 8.2mg/dl # moderate right-sided hydronephrosis - treating the underlying sepsis - U protein excretion est 7.1g/day - IV K rider 40mEq - 50 mEq PO potassium x2 - IV lasix 40mg daily - CT abdomen pelvis: Moderate to large bilateral pleural effusions with patchy and consolidative infiltrates in the lung bases likely a combination of pneumonia and atelectasis.Low to moderate volume abdominopelvic ascites and diffuse subcutaneous edema suggestive of anasarca. Moderate right hydronephrosis without visualization of hydroureter or obstructing calculi. This appearance is new versus CT scan dated 01/07/2025. Gallbladder hydrops without visualization of gallstones. This appearance may indicate acalculous cholecystitis. Fluid- filled colon with multiple air-fluid levels present, possibly related to diarrheal illness. No evidence of bowel obstruction, acute appendicitis, or other acute process in the abdomen or pelvis. - urology consulted - reconsulted nephrology Infectious disease # bilateral lower extremity cellulitis # left lower extremity diabetic foot ulcer on the plantar aspect growing Staph aureus # Sepsis due to above # left heel pressure ulcer # ruled out DVT # Fungal cutaneous infection in b/l groin - MRI from 01/09/2025 shows Mild diffuse subcutaneous soft-tissue edema; possibly cellulitis. No bone marrow edema is present to suggest fracture or acute osteomyelitis. - bilateral lower extremity arterial Doppler: No hemodynamically significant stenosis based on peak systolic velocity criteria. - bilateral lower extremity venous Doppler: No right or left femoropopliteal venous thrombosis - discontinued aztreonam and linezolid on 01/20/2025 - started cefepime, vancomycin and metronidazole on 01/20/2025 - podiatry on board - left foot MRI: No MR evidence of osteomyelitis. Cellulitis and lateral 4 for deep of the 5th metatarsal bone were wound is noted overlying dressing. Edema in the intrinsic muscle of the foot may reflect sequelae of denervation, or myositis. - Fluconazole - discontinued vancomycin 01/23/2025, started patient on daptomycin on 01/23/2025 - linezolid only 01/24/25 Hem/onc # microcytic anemia # thrombocytosis likely secondary to sepsis - s/p 2 PRBC - GI on board - monitor Endocrine # DKA, now resolved # recurrent episodes of hypoglycemia # severe protein calorie malnutrition # diabetic/starvation ketoacidosis, improving - discontinued lispro - holding insulin Lantus as patient continues to get hypoglycemic - mild sliding scale insulin - D5 water at 50 cc/hour - Accu-Cheks every 90 minutes while on insulin drip - insulin drip at 1 unit/hour Diet - tpn Lines - RUE midline placed 01/22/25 - R extremity 20 gauge placed on 01/20/2025 - Right upper extremity 20 gauge placed on 01/23/2025 Drips Insulin 1 unit/hour Fentanyl 25 micrograms/hour Versed 1 microgram/hour Levophed mcg per minute Plan discussed with: Patient My Orders Orders - BHAVANA HERNANDEZ MD Procedure Category Date Status Time Tpn Per Pharmacy SATHYA 01/25/25 In Process 12:38 Cpap Trial For Am ORDERS 01/25/25 Transmitted 12:38 Cpap/Sed Vacation Med ORDERS 01/25/25 Transmitted Weaning 12:38 Communication Order ORDERS 01/25/25 Transmitted 12:38 Date of Service: Jan 25, 2025 Billing Provider: BHAVANA HERNANDEZ MD Common Visit Codes: 32196-[id number] CARE 30-74 MIN BHAVANA HERNANDEZ MD Jan 25, 2025 13:16
[2025-01-25 13:43] LABS: Magnesium 1.6 mg/dL (1.6-2.6); Triglycerides 101.0 mg/dL (< 150)
--- NOTE | 2025-01-25 14:08 | DVHPN2 ---
Progress Note - Dictate Date Seen: Jan 25, 2025 Medical Necessity Reason Pt with a Central, PICC or Fol: No The following are medically ne: Jones Catheter Reason for jones catheter: Strict I&O Subjective Patient is still intubated with severe anasarca no gross GI bleeding Had thoracentesis vital signs Vital Sign Date Time Temp Pulse Resp B/P (MAP) Pulse Ox O2 Delivery O2 Flow Rate FiO2 01/25/25 12:10 102 20 110/52 (71) 98 30 01/25/25 10:00 Mechanical Ventilator+ 01/25/25 07:00 99.1 210.4 01/24/25 08:00 12 Total Intake and Output 01/24/25 01/24/25 01/25/25 15:00 23:00 07:00 Intake Total 395.50 ml 454.75 ml 699 ml Output Total 40 ml 10 ml Balance 395.50 ml 414.75 ml 689 ml medications Current Medications Medications Dose Ordered Sig/Zaria Route Start Time Stop Time Status Last Admin Dose Admin Ondansetron HCl 4 mg Q4HP PRN IV 01/06/25 15:00 Hold 01/20/25 10:24 4 MG Famotidine 20 mg Q12HR IV 01/07/25 10:00 UNV Diagnostic Test (Pha) 1 strip IQ4HR 01/07/25 08:00 Cancel Calcium Gluconate/ Sodium Chloride 50 ml @ 100 mls/hr Q30M IV 01/08/25 17:30 01/08/25 18:29 Cancel Pantoprazole Sodium 40 mg BID IV 01/10/25 10:00 01/25/25 09:50 40 MG Throat Lozenges 1 reza Q2HPRN PRN MT 01/12/25 22:45 Diphenhydramine HCl 50 mg Q8HR PRN IV 01/20/25 16:15 01/21/25 07:53 50 MG Insulin Glargine 7 units QAM SC 01/21/25 08:30 Hold 01/21/25 08:52 7 UNITS Metoclopramide HCl 10 mg Q8HPRN PRN IV 01/21/25 16:30 Furosemide 80 mg BIDD IV 01/23/25 18:00 01/24/25 06:50 80 MG Midazolam HCl 50 ml @ 1 mls/hr Q24H IV 01/24/25 04:00 01/24/25 04:14 1 MLS/HR Fentanyl Citrate 250 ml @ 2.5 mls/hr Q24H IV 01/24/25 04:00 01/24/25 04:15 2.5 MLS/HR Norepinephrine Bitartrate 250 ml @ 3.75 mls/hr Q24H IV 01/24/25 04:30 01/24/25 05:33 3.75 MLS/HR Dextrose 1,000 ml @ 50 mls/hr Q20H IV 01/24/25 13:30 01/24/25 20:26 50 MLS/HR Sodium Chloride 10 ml QSHIFT@10,22 IV 01/24/25 22:00 01/25/25 09:51 10 ML Linezolid 300 ml @ 150 mls/hr Q12HR IV 01/24/25 22:00 01/25/25 09:51 150 MLS/HR Nystatin 1 applic BID TOP 01/24/25 22:00 01/25/25 09:51 1 APPLIC Amino Acids 0 ml @ 0 mls/hr PER PHARMACY IV 01/25/25 13:15 Diagnostic Test (Pha) 1 strip Q6HR 01/25/25 18:00 Insulin Human Regular FOLLOW SLIDING SCALE Q6HR SC 01/25/25 18:00 Dextrose 50 ml UD IV 01/25/25 13:15 objective Abdomen doughy There is generalized edema laboratory and microbiology Laboratory Tests 01/25/25 08:15 01/25/25 05:01 Test 01/25/25 05:01 Range/Units Serum Glucose 117 H 74-106 mg/dL Assessment/Plan 44-year-old with a history diabetes with respiratory failure altered level of consciousness intubated has got generalized anasarca low hemoglobin and renal failure multiorgan failure at this time both possible sepsis No Gross GI bleeding has generalized edema Recommend nutritional supplements diuretics watch closely for renal failure as well as hepatic failure and follow hemoglobin closely Prognosis Is guarded Thank you Dr. Galaviz Dietary Evaluation Review Recommendations by RD: Increase Calorie Intake Comments: Nutrition Recommendation: 1) Vital AF 1.2Cal @ 25ml/hr along with Pro-stat 1 pk BID. start @ 20ml/hr, increase 10ml/hr Q4H until goal is reached. TF @ goal volume along with propofol, IV D5wNS0.45%, and Pro-stat provides 1684 kcal (100% energy needs), 75gm protein (100% protein needs), 487ml free water. 2) TPN to meet 75% estimated needs if remains NPO 3) Bryce 1 pk BID for DFU Expected Outcomes/Goals: DFU to improve To maintain/gain weight To meet at least 75% estimated needs Fu 2-3 days Interpretation of weight loss: up to 5% in 1 month Muscle Mass (Severe): Mod to Severe Depletion Protein Calorie Malnutrition: Non-Severe Is there a minimum of two crit: Yes Plan discussed with: Patient SIVA GALAVIZ MD Jan 25, 2025 14:08
[2025-01-25] MEDS: ACCU-CHEK COMFORT CURVE STRIP VI SCH ×2 (16:00→18:00)
[2025-01-25] MEDS: MAGNESIUM SULFATE 1GM/100ML 100 ML IV ONE (16:48)
[2025-01-25] MEDS: InsuLIN REG 1unit/0.01ml Soln (100units/ml) SC SCH (18:00)
[2025-01-25] MEDS: AMINO ACID INFUSION IN D10W 1,000 ML IV ONE (22:12)
--- NOTE | 2025-01-25 22:19 | DVHPN2 ---
Progress Note - Dictate Date Seen: Jan 25, 2025 Medical Necessity Reason Pt with a Central, PICC or Fol: No The following are medically ne: Jones Catheter Reason for jones catheter: Strict I&O Subjective Patient seen and examined at bedside. Currently sedated, intubated on mechanical ventilator. Overnight events reviewed. vital signs Vital Sign Date Time Temp Pulse Resp B/P (MAP) Pulse Ox O2 Delivery O2 Flow Rate FiO2 01/25/25 22:00 102 01/25/25 22:00 30 01/25/25 20:05 18 107/49 (68) 98 01/25/25 20:00 99.0 210.2 01/25/25 18:00 Mechanical Ventilator+ 01/24/25 08:00 12 Total Intake and Output 01/24/25 01/24/25 01/25/25 15:00 23:00 07:00 Intake Total 395.50 ml 454.75 ml 756 ml Output Total 40 ml 10 ml Balance 395.50 ml 414.75 ml 746 ml medications Current Medications Medications Dose Ordered Sig/Zaria Route Start Time Stop Time Status Last Admin Dose Admin Ondansetron HCl 4 mg Q4HP PRN IV 01/06/25 15:00 Hold 01/20/25 10:24 4 MG Famotidine 20 mg Q12HR IV 01/07/25 10:00 UNV Diagnostic Test (Pha) 1 strip IQ4HR 01/07/25 08:00 Cancel Calcium Gluconate/ Sodium Chloride 50 ml @ 100 mls/hr Q30M IV 01/08/25 17:30 01/08/25 18:29 Cancel Pantoprazole Sodium 40 mg BID IV 01/10/25 10:00 01/25/25 09:50 40 MG Throat Lozenges 1 reza Q2HPRN PRN MT 01/12/25 22:45 Diphenhydramine HCl 50 mg Q8HR PRN IV 01/20/25 16:15 01/21/25 07:53 50 MG Insulin Glargine 7 units QAM SC 01/21/25 08:30 Hold 01/21/25 08:52 7 UNITS Metoclopramide HCl 10 mg Q8HPRN PRN IV 01/21/25 16:30 Midazolam HCl 50 ml @ 1 mls/hr Q24H IV 01/24/25 04:00 01/25/25 13:00 2 MLS/HR Fentanyl Citrate 250 ml @ 2.5 mls/hr Q24H IV 01/24/25 04:00 01/24/25 04:15 2.5 MLS/HR Norepinephrine Bitartrate 250 ml @ 3.75 mls/hr Q24H IV 01/24/25 04:30 01/24/25 05:33 3.75 MLS/HR Dextrose 1,000 ml @ 50 mls/hr Q20H IV 01/24/25 13:30 01/25/25 18:24 50 MLS/HR Sodium Chloride 10 ml QSHIFT@10,22 IV 01/24/25 22:00 01/25/25 09:51 10 ML Linezolid 300 ml @ 150 mls/hr Q12HR IV 01/24/25 22:00 01/25/25 09:51 150 MLS/HR Nystatin 1 applic BID TOP 01/24/25 22:00 01/25/25 09:51 1 APPLIC Amino Acids 0 ml @ 0 mls/hr PER PHARMACY IV 01/25/25 13:15 Diagnostic Test (Pha) 1 strip Q6HR 01/25/25 18:00 01/25/25 18:00 1 STRIP Insulin Human Regular FOLLOW SLIDING SCALE Q6HR SC 01/25/25 18:00 01/25/25 18:00 2 UNITS Dextrose 50 ml UD IV 01/25/25 13:15 Diagnostic Test (Pha) 1 strip Q2HR 01/25/25 16:00 01/25/25 20:12 1 STRIP objective Gen.: Patient lying in bed in medical ICU. Sedated, intubated on mechanical ventilator. Head: Normocephalic, atraumatic. Eyes: PERRLA. Ears: Normal external anatomy. Throat: Endotracheal tube and orogastric tube in place. Neck: Supple, trachea midline. Chest: Transmitted breath sounds bilaterally. Decreased air entry bilaterally. No wheezing. Bibasilar crackles. Cardiovascular: Positive S1, positive S2. Regular rate and rhythm. Abdomen: Positive bowel sounds in all 4 quadrants. Soft, nontender, nondistended. : Jones in place. Normal external genitalia. Rectal: Deferred. Skin: Warm, dry. Intact. Extremities: 2+ radial pulses bilaterally. No lower extremity edema. Neuro: Sedated. laboratory and microbiology Laboratory Tests 7/5/25 08:15 01/25/25 05:01 Test 01/25/25 05:01 Range/Units Serum Glucose 117 H 74-106 mg/dL Assessment/Plan Impression Acute hypoxemic respiratory failure On mechanical ventilator Pneumonia Anemia Diabetic ketoacidosis Events Currently on vent support On AC mode; RR 18, VT 450, PEEP 8-->5, FiO2 30% Sedated on Versed, Fentanyl S/p hemodialysis. Continue antibiotics Accu-Cheks/ISS. Head of bed elevation Aspiration precautions Monitor hemoglobin -dropped to 6.2 g/dL S/p 1 unit PRBC Protonix BID for GI ppx HD per Nephrology Monitor renal function Monitor electrolytes Supplement as needed Taper sedation as tolerated CPAP in the AM. Labs and imaging reviewed Rest of plan as noted below Plan S/p intubation on 01/24/25 On mechanical ventilator. On AC mode; RR 18, VT 450, PEEP 5, FiO2 30% Titrate FIO2 to keep O2 saturation above 90%. VAP bundle. Daily ABG and CXR while intubated Sedate for ventilator synchrony Pressors as necessary for hemodynamic support. Titrate to keep MAP greater than 65 mmHg. Continue antibiotics Accu-Cheks, ISS Monitor hemoglobin Transfuse if less than 7.0 g/dL. Protonix BID for GI ppx HD per Nephrology Monitor renal function Monitor electrolytes Supplement as needed GI/DVT prophylaxis Prognosis: Poor given patient's multiple co-morbidities. Condition: Critical Rest of plan per hospitalist and other consultants. A total of 35 minutes of critical care time was spent reviewing the patient record, examining the patient, making a diagnostic and therapeutic plan, discussing this plan with the medical personnel, following up on diagnostic studies and following the patient for clinical stability excluding any and all procedures. At least 50% of this time was spent in direct, [id number] contact. Thank you Dr. Ramires for allowing me to participate in this patient's care. Further recommendations will depend on the patient's clinical course. Please do not hesitate to contact me if you have any questions or concerns. This medical document was created using an electronic medical record system with [employer] system. Although these documentations are being carefully reviewed, there may still be some phonetic and typographical changes. The errors are purely typographical, due to imperfection on the software program, and do not reflect any compromise in the patient's medical care. Dietary Evaluation Review Recommendations by RD: Increase Calorie Intake Comments: Nutrition Recommendation: 1) Vital AF 1.2Cal @ 25ml/hr along with Pro-stat 1 pk BID. start @ 20ml/hr, increase 10ml/hr Q4H until goal is reached. TF @ goal volume along with propofol, IV D5wNS0.45%, and Pro-stat provides 1684 kcal (100% energy needs), 75gm protein (100% protein needs), 487ml free water. 2) TPN to meet 75% estimated needs if remains NPO 3) Bryce 1 pk BID for DFU Expected Outcomes/Goals: DFU to improve To maintain/gain weight To meet at least 75% estimated needs Fu 2-3 days Interpretation of weight loss: up to 5% in 1 month Muscle Mass (Severe): Mod to Severe Depletion Protein Calorie Malnutrition: Non-Severe Is there a minimum of two crit: Yes Plan discussed with: Other (CARIDAD De Los Santos) Critical Care Time(min): 35 KEISHA PENN MD Jan 25, 2025 22:19
[2025-01-26] VITALS (99 sets, daily range): BP systolic 91–119; BP diastolic 40–56; PULSE 99–114; RESP 11–38; TEMP 97.2–99.1; O2SAT 30–100
--- NOTE | 2025-01-26 05:52 | DVH ---
Exam: US US GUIDED VASCULAR ACCESS Date: 01/24/2025 02:16 PM Clinical History: PICC LINE PLACEMENT Comparison: None Findings: Targeted sonographic evaluation of the basilic vein was obtained utilizing grayscale and color Dopple r imaging. IMPRESSION: Sonographic assistance for central line placement. Please refer to procedural report for detailed fin dings.
--- NOTE | 2025-01-26 05:52 | DVH ---
CHEST RADIOGRAPH Indication: S/p intubated Technique: Single frontal view of the chest was obtained Comparison: XY CHEST PORTABLE on DOS: 01/25/25, XY CHEST PORTABLE on DOS: 01/24/25, XY CHEST PORTABLE on DOS: 01/24/25, XY CHEST PORTABLE on DOS: 01/24/25, XY CHEST XRAY 1 VIEW on DOS: 01/23/25, XY CHEST PORTABLE on DOS: 01/25/25 FINDINGS: Lines and Tubes: Endotracheal tube, enteric catheter and right central venous catheter and right PICC in satisfactory position Lungs: Multifocal airspace disease Pleura: No effusion. No pneumothorax. Cardiomediastinal contours: Unremarkable Bones: Unremarkable IMPRESSION: Lines and tubes in satisfactory position. Slightly improved aeration.
[2025-01-26 06:57] LABS: Base Excess -2.9 mmol/L (-2.0-3.0)
[2025-01-26 07:23] LABS: Hematocrit 23.0 % (41.0-53.0); Hemoglobin 7.5 g/dL (13.5-17.5); Mean Corpuscular Hemoglobin 25.0 pg (28.0-32.0); Mean Corpuscular Volume 76.6 fL (80.0-100.0); Nucleated Red Blood Cells % 0.0 %
[2025-01-26 07:45] LABS: Alanine Aminotransferase < 9 U/L (7-40); Albumin 1.7 g/dL (3.2-4.8); Alkaline Phosphatase 301 U/L (46-116); Anion Gap 12 (5-15); BUN/Creatinine Ratio 7.5 (10.0-20.0); Blood Urea Nitrogen 23 mg/dL (9-23); Calcium 7.3 mg/dL (8.7-10.4); Carbon Dioxide 22 mmol/L (20-31); Chloride 107 mmol/L (98-107); Glucose 165 mg/dL (74-106); Magnesium 1.7 mg/dL (1.6-2.6); Potassium 3.2 mmol/L (3.5-5.1); Sodium 141 mmol/L (136-145); Total Protein 4.1 g/dL (5.7-8.2)
[2025-01-26 07:47] LABS: Bilirubin, Total 1.3 mg/dL (0.2-1.0)
[2025-01-26] MEDS: D5W 5% 1,000 ML IV SCH (10:45)
--- NOTE | 2025-01-26 10:46 | DVHPN2 ---
Progress Note - Dictate Date Seen: Jan 26, 2025 Medical Necessity Reason Pt with a Central, PICC or Fol: No The following are medically ne: Jones Catheter Reason for jones catheter: Strict I&O Subjective Jones reinserted, urine volumes remain oliguric vital signs Vital Sign Date Time Temp Pulse Resp B/P (MAP) Pulse Ox O2 Delivery O2 Flow Rate FiO2 01/26/25 09:51 103 19 96/45 (62) 98 30 01/26/25 08:00 Mechanical Ventilator+ 01/26/25 07:15 97.9 208.2 01/24/25 08:00 12 Total Intake and Output 01/25/25 01/25/25 01/26/25 15:00 23:00 07:00 Intake Total 751.0 ml 1047.0 ml 812.5 ml Output Total 10 ml 0 ml Balance 751.0 ml 1037.0 ml 812.5 ml medications Current Medications Medications Dose Ordered Sig/Zaria Route Start Time Stop Time Status Last Admin Dose Admin Ondansetron HCl 4 mg Q4HP PRN IV 01/06/25 15:00 Hold 01/20/25 10:24 4 MG Famotidine 20 mg Q12HR IV 01/07/25 10:00 UNV Diagnostic Test (Pha) 1 strip IQ4HR 01/07/25 08:00 Cancel Calcium Gluconate/ Sodium Chloride 50 ml @ 100 mls/hr Q30M IV 01/08/25 17:30 01/08/25 18:29 Cancel Pantoprazole Sodium 40 mg BID IV 01/10/25 10:00 01/26/25 09:37 40 MG Throat Lozenges 1 reza Q2HPRN PRN MT 01/12/25 22:45 Diphenhydramine HCl 50 mg Q8HR PRN IV 01/20/25 16:15 01/21/25 07:53 50 MG Insulin Glargine 7 units QAM SC 01/21/25 08:30 Hold 01/21/25 08:52 7 UNITS Metoclopramide HCl 10 mg Q8HPRN PRN IV 01/21/25 16:30 Midazolam HCl 50 ml @ 1 mls/hr Q24H IV 01/24/25 04:00 01/25/25 13:00 2 MLS/HR Fentanyl Citrate 250 ml @ 2.5 mls/hr Q24H IV 01/24/25 04:00 01/24/25 04:15 2.5 MLS/HR Norepinephrine Bitartrate 250 ml @ 3.75 mls/hr Q24H IV 01/24/25 04:30 01/24/25 05:33 3.75 MLS/HR Dextrose 1,000 ml @ 50 mls/hr Q20H IV 01/24/25 13:30 01/25/25 18:24 50 MLS/HR Sodium Chloride 10 ml QSHIFT@10,22 IV 01/24/25 22:00 01/26/25 09:37 10 ML Linezolid 300 ml @ 150 mls/hr Q12HR IV 01/24/25 22:00 01/26/25 09:38 150 MLS/HR Nystatin 1 applic BID TOP 01/24/25 22:00 01/26/25 09:41 1 APPLIC Amino Acids 0 ml @ 0 mls/hr PER PHARMACY IV 01/25/25 13:15 Diagnostic Test (Pha) 1 strip Q6HR 01/25/25 18:00 01/26/25 06:25 1 STRIP Insulin Human Regular FOLLOW SLIDING SCALE Q6HR SC 01/25/25 18:00 01/26/25 06:29 4 UNITS Dextrose 50 ml UD IV 01/25/25 13:15 Diagnostic Test (Pha) 1 strip Q2HR 01/25/25 16:00 01/26/25 09:38 1 STRIP objective Gen: Intubated, cachectic lungs: cta anteriorly cvs: no rub ext: + edema laboratory and microbiology Laboratory Tests 01/26/25 04:53 Test 01/26/25 04:53 Range/Units Serum Glucose 165 H 74-106 mg/dL Assessment/Plan Acute kidney injury superimposed Chronic Kidney Disease stage IIIB secondary hemodynamic mediated ATN, FeNa > 2% - recurrent Acute hypoxic respiratory failure, patient extubated Diabetic/ ? Starvation ketoacidosis Hypernatremia due to dehydration Hypocalcemia Hypomagnesemia Hypokalemia Anemia of chronic kidney disease Recommendations - electrolytes, acid-base, pulmonary status acceptable - without urgent indication for dialysis - we will evaluate daily for TERMIN[employer] CARMAN needs, Dietary Evaluation Review Recommendations by RD: Increase Calorie Intake Comments: Nutrition Recommendation: 1) Vital AF 1.2Cal @ 25ml/hr along with Pro-stat 1 pk BID. start @ 20ml/hr, increase 10ml/hr Q4H until goal is reached. TF @ goal volume along with propofol, IV D5wNS0.45%, and Pro-stat provides 1684 kcal (100% energy needs), 75gm protein (100% protein needs), 487ml free water. 2) TPN to meet 75% estimated needs if remains NPO 3) Bryce 1 pk BID for DFU Expected Outcomes/Goals: DFU to improve To maintain/gain weight To meet at least 75% estimated needs Fu 2-3 days Interpretation of weight loss: up to 5% in 1 month Muscle Mass (Severe): Mod to Severe Depletion Protein Calorie Malnutrition: Non-Severe Is there a minimum of two crit: Yes Plan discussed with: Other CARLYN MOBLEY MD Jan 26, 2025 10:46
--- NOTE | 2025-01-26 10:47 | DVHPN2 ---
Subjective Patient is a 44-year-old male with known history of type 1 diabetes mellitus who presented on 01/06/2025 via EMS for altered level of consciousness. Per EMS, the patient was found unresponsive with a blood glucose of 931 and received 400 cc IV fluids on route. On arrival he exhibited hypoxia, generalized weakness, increased work of breathing necessitating intubation and mechanical ventilation. Patient was started on IV insulin drip, Zosyn and vancomycin with bicarbonate for severe acidosis. A right femoral central line, midline and peripheral IVs were also placed. Of note, patient has a history of poor adherence to his insulin therapy. Per patient's father, patient lives alone in a trailer and had not been heard from since 01/02/2025. Patient was last hospitalized at the [facility] in November 2024 for DKA. On 01/07/2025, patient developed lip swelling while still intubated, chart review revealed a penicillin allergy. Zosyn was discontinued and patient was treated with methylprednisolone and transitioned to meropenem. Nephrology was consulted for RADHA and hypernatremia. A 01/10/2025, patient had begun to improve and was weaned off sedation and was extubated on 01/12/2025 and transferred telemetry. Antibiotics were discontinued at that time due to uncertainty about the cause of leukocytosis (steroids versus infection). However, WBCs continued to trend upwards and the patient developed low-grade fevers, subsequently restarted on linezolid and aztreonam. Patient has bilateral diabetic foot ulcers, left side more advanced than right. MRI of bilateral extremities shows mild subcutaneous edema, possibly cellulitis but no signs of osteomyelitis. Patient was also noted to have a pressure related ulcer to the left heel. Lower extremity arterial Doppler showed no significant stenosis. Vascular surgery evaluated the ulcers but recommended no interventions at this time. Podiatry already on board. 01/20/2025: Held insulin Lantus, discontinued lispro, mild sliding scale q.4 hours only. Started IV fluconazole for candidal infection in the groin. Podiatry reconsulted for evaluation of bilateral lower extremity ulcers. GI consult for anemia and positive stool occult blood. Discontinued linezolid and aztreonam, started on cefepime, vancomycin and metronidazole. 01/21/25: notes improved but continued nausea, new onset abdominal pain 9-10/10, localized to mid abdomen. Patient refused MRI owing to abdominal pain, we will reattempt tomorrow. Added metoclopramide qD along with norco and morphine as needed. Blood glucose in 290s, resumed lantus 7units qAM, however, dropping blood sugar by 4pm therefore discontinued lantus again. Pt refuses to eat and has severe aversion to food 01/22/25: improved abdominal pain today -01/30, agreeable to CT abdomen however still refusing MRI L foot. Plan to reattempt tomorrow. new moderate R sided hydronephrosis noted, urology consulted. denies dyspnea, sob. improving nausea. 01/23/2025: Patient notes feeling weaker than yesterday, denies abdominal pain. On physical exam decreased breath sounds more prominent on the left side and some crackles bibasilar. Discontinued vancomycin and started patient on daptomycin. Repeated left foot MRI which showed cellulitis in the lateral 4 for deep to the 5th metatarsal bone marrow wound is noted with overlying dressing, no evidence of osteomyelitis. IV furosemide was increased to 40 mg b.i.d. and patient was transferred to [facility]. 01/24/2025: Overnight patient was intubated due to increasing respiratory distress, patient also underwent thoracentesis with 900 mL of fluid removed on the left side. For starvation/diabetic ketoacidosis, patient was started on an insulin drip and D10, gap was closed and bicarb was stabilized at 20. Blood glucose was 100 with a insulin drip was stopped, patient was started on D5 water at 50 cc/hours. Nephrology increased IV Lasix to 80 mg b.i.d. along with plan for renal replacement therapy tentatively in the p.m.. 01/25/2025- patient received right IJ Dean cath HD cath yesterday. Dialysis done 1 L removed. Today patient continues to have right upper extremity edema 2+. Left upper extremity is restricted has trace pitting edema and restricted due to history of DVT. Patient also has 1 to trace pedal edema bilaterally. Up to mid shins. Patient is not requiring any vasopressors. Patient is ventilated and due to acute hypoxic respiratory failure. Patient has no p.o. intake due to large gastric bubble and possible gastroparesis from prolonged uncontrolled diabetes. We will do TPN via PICC line now and hold off any enteral feeds. Continue IV antibiotics. Patient is anemic less than 7, 1 unit PRBC. Tentative plan to get EPO with HD, which may help. No sources of obvious hemorrhage. We are continuing D5 W for hypernatremia. We will do some education vacation today and if goes well possible CPAP trials tomorrow. We will continue sliding scale insulin Q 2. Patient antibiotics IV is linezolid only. 01/26/2025-no dialysis today. No lower extremity edema. Right upper extremity edema looks improved. Today doing sedation vacation and CPAP trial. Some electrolyte abnormalities not concerning nephrology reviewed. Patient on dialysis but still makes some urine 150 dark brown color. Patient is getting broad-spectrum antibiotics. Clinimix. Sedation vacation but otherwise patient was on Versed and fentanyl. Heart rate upper end of normal in the 100s. Blood pressure stable. No vasopressors. We will decrease Accu-Cheks to q.4. Decrease D5 to 30, being used for recurrent hypoglycemia. Otherwise continue primary team's plan. Reviewed: Care Plan, H&P, Labs, Medications, Previous Orders, Radiology Changes from previous H/P or p: No Changes General: Per HPI Eyes: No Pain, No Vision change, No Conjunctivae inflammation, No Eyelid inflammation, No Other, No Redness ENT: No Ear pain, No Ear discharge, No Nose pain, No Nose discharge, No Nose congestion, No Mouth pain, No Mouth swelling, No Throat pain, No Throat swelling, No Other Cardiovascular: No Chest Pain, No Palpitations, No Orthopnea, No Paroxysmal Noc. Dyspnea, No Edema, No Lt Headedness, No Other Respiratory: No Cough, No Dry, No Shortness of breath, No SOB with excertion, No Wheezing, No Hemoptysis, No Pleuritic Pain, No Sputum, No Other Gastrointestinal: No Nausea, No Vomiting, No Abdominal Pain, No Diarrhea, No Constipation, No Melena, No Hematochezia, No Other Genitourinary: No Dysuria, No Frequency, No Incontinence, No Hematuria, No Retention; Other (Owens catheter in place) Musculoskeletal: No other, No neck pain, No shoulder pain, No arm pain, No back pain, No hand pain, No leg pain, No foot pain Skin: No Rash, No Lesions, No Jaundice, No Bruising, No Other Objective Vitals Vital Signs Date Time Temp Pulse Resp B/P (MAP) Pulse Ox O2 Delivery O2 Flow Rate FiO2 01/26/25 09:51 103 19 96/45 (62) 98 30 01/26/25 08:00 Mechanical Ventilator+ 01/26/25 07:15 97.9 208.2 01/24/25 08:00 12 Intake/Output Intake and Output 01/26/25 07:00 Intake Total 2610.5 ml Output Total 10 ml Balance 2600.5 ml Intake Oral 0 ml IV Total 2260.5 ml Blood Product 350 ml Output Urine Total 10 ml Stool Total 0 ml General Appearance: Other (Confused and lethargic) HEENT: Atraumatic, PERRLA, EOMI, Mucous membr. moist/pink Neck: Supple Lungs: Clear to auscultation, Normal air movement Cardiovascular: Regular rate, Normal S1, Normal S2, No murmurs, Gallops, Rubs Abdomen: Normal bowel sounds, Soft, No tenderness Neuro: Other (Confused, unable to exam) Psych/Mental Status: Other (Lethargic) Medications Current Medications Medications Dose Ordered Sig/Zaria Route Start Time Stop Time Status Last Admin Dose Admin Ondansetron HCl 4 mg Q4HP PRN IV 01/06/25 15:00 Hold 01/20/25 10:24 4 MG Famotidine 20 mg Q12HR IV 01/07/25 10:00 UNV Diagnostic Test (Pha) 1 strip IQ4HR 01/07/25 08:00 Cancel Calcium Gluconate/ Sodium Chloride 50 ml @ 100 mls/hr Q30M IV 01/08/25 17:30 01/08/25 18:29 Cancel Pantoprazole Sodium 40 mg BID IV 01/10/25 10:00 01/26/25 09:37 40 MG Throat Lozenges 1 reza Q2HPRN PRN MT 01/12/25 22:45 Diphenhydramine HCl 50 mg Q8HR PRN IV 01/20/25 16:15 01/21/25 07:53 50 MG Insulin Glargine 7 units QAM SC 01/21/25 08:30 Hold 01/21/25 08:52 7 UNITS Metoclopramide HCl 10 mg Q8HPRN PRN IV 01/21/25 16:30 Midazolam HCl 50 ml @ 1 mls/hr Q24H IV 01/24/25 04:00 01/25/25 13:00 2 MLS/HR Fentanyl Citrate 250 ml @ 2.5 mls/hr Q24H IV 01/24/25 04:00 01/24/25 04:15 2.5 MLS/HR Norepinephrine Bitartrate 250 ml @ 3.75 mls/hr Q24H IV 01/24/25 04:30 01/24/25 05:33 3.75 MLS/HR Dextrose 1,000 ml @ 50 mls/hr Q20H IV 01/24/25 13:30 01/25/25 18:24 50 MLS/HR Sodium Chloride 10 ml QSHIFT@10,22 IV 01/24/25 22:00 01/26/25 09:37 10 ML Linezolid 300 ml @ 150 mls/hr Q12HR IV 01/24/25 22:00 01/26/25 09:38 150 MLS/HR Nystatin 1 applic BID TOP 01/24/25 22:00 01/26/25 09:41 1 APPLIC Amino Acids 0 ml @ 0 mls/hr PER PHARMACY IV 01/25/25 13:15 Diagnostic Test (Pha) 1 strip Q6HR 01/25/25 18:00 01/26/25 06:25 1 STRIP Insulin Human Regular FOLLOW SLIDING SCALE Q6HR SC 01/25/25 18:00 01/26/25 06:29 4 UNITS Dextrose 50 ml UD IV 01/25/25 13:15 Diagnostic Test (Pha) 1 strip Q2HR 01/25/25 16:00 01/26/25 09:38 1 STRIP Laboratory Results Laboratory Tests 01/26/25 04:53 Chemistry Test 01/26/25 04:53 Albumin 1.7 g/dL (3.2-4.8) L Calcium Level 7.3 mg/dL (8.7-10.4) L Magnesium Level 1.7 mg/dL (1.6-2.6) Phosphorus Level 1.8 mg/dL (2.4-5.1) L Total Protein 4.1 g/dL (5.7-8.2) L LFT Test 01/26/25 04:53 Alanine Aminotransferase (ALT) < 9 U/L (7-40) Alkaline Phosphatase 301 U/L (46-116) H Aspartate Amino Transferase (AST) 21 U/L (13-40) Total Bilirubin 1.3 mg/dL (0.2-1.0) H Urinalysis Test 01/08/25 18:27 01/10/25 11:50 01/22/25 17:30 Urine Osmolality 300 mOsm/kg Urine Creatinine 26.27 mg/dL (30.0-125.0) L Urine Protein/Creatinine Ratio 7.12 Urine Sodium 79 mmol/L (40-220) Urine Total Protein 187.1 mg/dL (1-14) H Urine Color Colorless (Yellow) Urine Clarity Turbid (Clear) H Urine pH 6.0 (5.0-9.0) Urine Specific [place] 1.011 (1.001-1.035) Urine Protein 2+ (Negative) H Urine Ketones Negative (Negative) Urine Blood 3+ /uL (Negative) H Urine Nitrite Negative (Negative) Urine Bilirubin Negative (Negative) Urine Urobilinogen Normal mg/dL (Negative) Urine Leukocyte Esterase Negative /uL (Negative) Urine RBC 702 /hpf (0 - 3) Urine Microscopic WBC < 1 /HPF (0-3) Urine Squamous Epithelial Cells Few /hpf (<5) Urine Bacteria None seen /hpf (None Seen) Urine Hyaline Casts Few /lpf (0 - 2) Urine Mucus Few (None Seen) Urine Glucose 2+ mg/dL (Normal) H Blood Gas Results Test 01/26/25 06:50 Arterial Blood pH 7.417 (7.350-7.450) FiO2 % 30.0 Microbiology Microbiology Date/Time Source Procedure Growth Status 01/24/25 04:15 Sputum Gram Stain - Final Resulted 01/24/25 04:15 Sputum Respiratory Culture - Preliminary Resulted 01/23/25 20:30 Pleural Fluid Gram Stain - Final Resulted 01/23/25 20:30 Pleural Fluid Body Fluid Culture - Preliminary Resulted 01/22/25 17:30 Voided Urine Urine Culture - Final Complete 01/19/25 16:06 Nose MRSA Screen - Final Complete 01/16/25 19:00 Blood Blood Culture - Final NO GROWTH AFTER 5 DAYS OF INCUBATION. Complete 01/08/25 10:37 Stool Stool Culture - Final Complete 01/08/25 10:37 Stool Shiga Toxin I & II - Final Complete Labs and/or images reviewed: Labs reviewed by me, Image(s) reviewed by me Assessment/Plan Assessment/Plan Neurology # acute metabolic encephalopathy likely due to DKA vs Sepsis, improving - head CT from 01/07/2025: No acute territorial infarct, intracranial hemorrhage or mass effect - head CT from 01/19/2025: No acute intracranial abnormality - monitor Cardiovascular # runs of AFib on EKG # prolonged QTC # Essential hypertension - avoiding QT prolonging drugs - echocardiogram from 07/20/2022: Overall preserved ventricular systolic function. EF 60%. Grade 1 diastolic dysfunction. - increased amlodipine to 10mg qD - repeat echo - monitor Respiratory # Community acquired pneumonia, Gram-positive versus Gram-negative # Acute hypoxic respiratory failure due to above, intubated and mechanically ventilated # moderate-large b/l Pleural effusions - CXR 01/08/25: Bibasilar atelectasis or pneumonia. - CXR 01/20/25: Patchy bilateral airspace disease, [id number], slightly increased - previously on meropenem and vancomycin, stopped on 01/12/2025 - started on aztreonam on 01/17/2025, linezolid 01/16/2025 - discontinued aztreonam and linezolid on 01/20/2025 - started cefepime, vancomycin and metronidazole on 01/20/2025 - discontinued vancomycin 01/23/2025 - s/p thoracentesis with 900 mL of fluid removed on 01/23/2025 - linezolid only 01/24/25 Ventilator: AC/VC Tidal volume 450 Respiratory rate 18 Peep 8 FiO2 60% GI # Acute intractable abdominal pain (01/21/25), improved # Microcytic anemia possibly 2' to ?LGI bleed; Hb 7.8 # Moderate abdominopelvic ascites # Peptic ulcer prophylaxis - stool occult blood positive - GI consult - CT abdomen pelvis from 01/07/2025: Nonspecific periportal edema. Incidental finding. -Pantoprazole 40 mg IV daily - serum lipase 113 - repeat CT abdomen pelvis (01/22/25): Moderate to large bilateral pleural effusions with patchy and consolidative infiltrates in the lung bases likely a combination of pneumonia and atelectasis.mLow to moderate volume abdominopelvic ascites and diffuse subcutaneous edema suggestive of anasarca. Moderate right hydronephrosis without visualization of hydroureter or obstructing calculi. This appearance is new versus CT scan dated 01/07/2025. Gallbladder hydrops without visualization of gallstones. This appearance may indicate acalculous cholecystitis. Fluid-filled colon with multiple air-fluid levels present, possibly related to diarrheal illness. No evidence of bowel obstruction, acute appendicitis, or other acute process in the abdomen or pelvis. Nephrology/ # RADHA likely hemodynamically mediated/VMN on possible CKD stage 3 # Anasarca due to above # severe hypoalbuminemia, serum albumin 2 # Diabetic nephropathy likely # Severe hypokalemia, improving # hypernatremia, now improved # asymptomatic hypocalcemia, corrected Ca 8.2mg/dl # moderate right-sided hydronephrosis - treating the underlying sepsis - U protein excretion est 7.1g/day - IV K rider 40mEq - 50 mEq PO potassium x2 - IV lasix 40mg daily - CT abdomen pelvis: Moderate to large bilateral pleural effusions with patchy and consolidative infiltrates in the lung bases likely a combination of pneumonia and atelectasis.Low to moderate volume abdominopelvic ascites and diffuse subcutaneous edema suggestive of anasarca. Moderate right hydronephrosis without visualization of hydroureter or obstructing calculi. This appearance is new versus CT scan dated 01/07/2025. Gallbladder hydrops without visualization of gallstones. This appearance may indicate acalculous cholecystitis. Fluid- filled colon with multiple air-fluid levels present, possibly related to diarrheal illness. No evidence of bowel obstruction, acute appendicitis, or other acute process in the abdomen or pelvis. - urology consulted - reconsulted nephrology Infectious disease # bilateral lower extremity cellulitis # left lower extremity diabetic foot ulcer on the plantar aspect growing Staph aureus # Sepsis due to above # left heel pressure ulcer # ruled out DVT # Fungal cutaneous infection in b/l groin - MRI from 01/09/2025 shows Mild diffuse subcutaneous soft-tissue edema; possibly cellulitis. No bone marrow edema is present to suggest fracture or acute osteomyelitis. - bilateral lower extremity arterial Doppler: No hemodynamically significant stenosis based on peak systolic velocity criteria. - bilateral lower extremity venous Doppler: No right or left femoropopliteal venous thrombosis - discontinued aztreonam and linezolid on 01/20/2025 - started cefepime, vancomycin and metronidazole on 01/20/2025 - podiatry on board - left foot MRI: No MR evidence of osteomyelitis. Cellulitis and lateral 4 for deep of the 5th metatarsal bone were wound is noted overlying dressing. Edema in the intrinsic muscle of the foot may reflect sequelae of denervation, or myositis. - Fluconazole - discontinued vancomycin 01/23/2025, started patient on daptomycin on 01/23/2025 - linezolid only 01/24/25 Hem/onc # microcytic anemia # thrombocytosis likely secondary to sepsis - s/p 2 PRBC - GI on board - monitor Endocrine # DKA, now resolved # recurrent episodes of hypoglycemia # severe protein calorie malnutrition # diabetic/starvation ketoacidosis, improving - discontinued lispro - holding insulin Lantus as patient continues to get hypoglycemic - mild sliding scale insulin - D5 water at 50 cc/hour - Accu-Cheks every 90 minutes while on insulin drip - insulin drip at 1 unit/hour Diet - tpn Lines - RUE midline placed 01/22/25 - R extremity 20 gauge placed on 01/20/2025 - Right upper extremity 20 gauge placed on 01/23/2025 Drips Insulin 1 unit/hour Fentanyl 25 micrograms/hour Versed 1 microgram/hour Levophed mcg per minute Plan discussed with: Patient My Orders Orders - BHAVANA HERNANDEZ MD Procedure Category Date Status Time Cpap Trial For Am ORDERS 01/25/25 Transmitted 12:38 Cpap/Sed Vacation Med ORDERS 01/25/25 Transmitted Weaning 12:38 Communication Order ORDERS 01/25/25 Transmitted 12:38 Tpn Per Pharmacy PHA 01/25/25 In Process 13:15 Glucose Blood PHA 01/25/25 In Process (Accu-Chek Comfort 18:00 Insulin R (Human) PHA 01/25/25 In Process (Insulin R) 18:00 Dextrose 50% Syringe PHA 01/25/25 In Process 13:15 Tpn Per Pharmacy SATHYA 01/25/25 In Process 22:00 Amino Acid Infusion PHA 01/25/25 In Process In D10w (Clinimix 4. 22:00 Insert Owens Catheter SATHYA 01/26/25 In Process 08:48 Urine Bacterial RICHARD 01/26/25 In Process Culture 08:48 Date of Service: Jan 26, 2025 Billing Provider: BHAVANA HERNANDEZ MD Common Visit Codes: 47432-[id number] CARE 30-74 MIN BHAVANA HERNANDEZ MD Jan 26, 2025 10:46
[2025-01-26] MEDS: POTASSIUM PHOSPHATE 26.4 MEQ in SODIUM CHL 0.9% 100 ML IV ONE (13:35)
--- NOTE | 2025-01-26 13:51 | DVHPN2 ---
Progress Note - Dictate Date Seen: Jan 26, 2025 Medical Necessity Reason Pt with a Central, PICC or Fol: No The following are medically ne: Jones Catheter Reason for jones catheter: Strict I&O Subjective Patient is still intubated was slowly trying to get weaned off with severe anasarca no gross GI bleeding Hemoglobin decreased slightly and given 1 unit of packed cells No gross GI bleeding vital signs Vital Sign Date Time Temp Pulse Resp B/P (MAP) Pulse Ox O2 Delivery O2 Flow Rate FiO2 01/26/25 13:15 98.1 105 17 101/45 (63) 97 208.6 01/26/25 12:00 Mechanical Ventilator+ 30 30 01/24/25 08:00 12 Total Intake and Output 01/25/25 01/25/25 01/26/25 15:00 23:00 07:00 Intake Total 751.0 ml 1047.0 ml 853.5 ml Output Total 10 ml 0 ml Balance 751.0 ml 1037.0 ml 853.5 ml medications Current Medications Medications Dose Ordered Sig/Zaria Route Start Time Stop Time Status Last Admin Dose Admin Ondansetron HCl 4 mg Q4HP PRN IV 01/06/25 15:00 Hold 01/20/25 10:24 4 MG Famotidine 20 mg Q12HR IV 01/07/25 10:00 UNV Diagnostic Test (Pha) 1 strip IQ4HR 01/07/25 08:00 Cancel Calcium Gluconate/ Sodium Chloride 50 ml @ 100 mls/hr Q30M IV 01/08/25 17:30 01/08/25 18:29 Cancel Pantoprazole Sodium 40 mg BID IV 01/10/25 10:00 01/26/25 09:37 40 MG Throat Lozenges 1 reza Q2HPRN PRN MT 01/12/25 22:45 Diphenhydramine HCl 50 mg Q8HR PRN IV 01/20/25 16:15 01/21/25 07:53 50 MG Insulin Glargine 7 units QAM SC 01/21/25 08:30 Hold 01/21/25 08:52 7 UNITS Metoclopramide HCl 10 mg Q8HPRN PRN IV 01/21/25 16:30 Midazolam HCl 50 ml @ 1 mls/hr Q24H IV 01/24/25 04:00 01/25/25 13:00 2 MLS/HR Fentanyl Citrate 250 ml @ 2.5 mls/hr Q24H IV 01/24/25 04:00 01/24/25 04:15 2.5 MLS/HR Norepinephrine Bitartrate 250 ml @ 3.75 mls/hr Q24H IV 01/24/25 04:30 01/24/25 05:33 3.75 MLS/HR Sodium Chloride 10 ml QSHIFT@10,22 IV 01/24/25 22:00 01/26/25 09:37 10 ML Linezolid 300 ml @ 150 mls/hr Q12HR IV 01/24/25 22:00 01/26/25 09:38 150 MLS/HR Nystatin 1 applic BID TOP 01/24/25 22:00 01/26/25 09:41 1 APPLIC Amino Acids 0 ml @ 0 mls/hr PER PHARMACY IV 01/25/25 13:15 Diagnostic Test (Pha) 1 strip Q6HR 01/25/25 18:00 01/26/25 11:56 1 STRIP Insulin Human Regular FOLLOW SLIDING SCALE Q6HR SC 01/25/25 18:00 01/26/25 11:56 8 UNITS Dextrose 50 ml UD IV 01/25/25 13:15 Dextrose 1,000 ml @ 30 mls/hr Q24H IV 01/26/25 10:45 Diagnostic Test (Pha) 1 strip Q4HR 01/26/25 14:00 UNV Fat Emulsion Intravenous 100 ml/Sodium Acetate 20 meq/Potassium Acetate 40 meq/ Potassium Phosphate 44 meq/ Calcium Gluconate 2.3 meq/Magnesium Sulfate 12 meq/ Multivitamins 10 ml/Chromium/ Copper/Manganese/ Zinc 1 ml/Insulin Human Regular 4 units/Amino Acids/ Dextrose/Purified Water 1,458.9862 ml @ 61 mls/hr [id number] IV 01/26/25 22:00 01/27/25 21:59 objective Mild Abdominal distention no masses laboratory and microbiology Laboratory Tests 01/26/25 04:53 Test 01/26/25 04:53 Range/Units Serum Glucose 165 H 74-106 mg/dL Assessment/Plan 44-year-old with a history diabetes with respiratory failure altered level of consciousness intubated has got generalized anasarca low hemoglobin and renal failure multiorgan failure at this time both possible sepsis No Gross GI bleeding Hemoglobin is slightly decreased and was given one into packed cells slowly getting weaned off now We will recommend to watch closely for any bleeding Thank you Dr. Galaviz Dietary Evaluation Review Recommendations by RD: Increase Calorie Intake Comments: Nutrition Recommendation: 1) Vital AF 1.2Cal @ 25ml/hr along with Pro-stat 1 pk BID. start @ 20ml/hr, increase 10ml/hr Q4H until goal is reached. TF @ goal volume along with propofol, IV D5wNS0.45%, and Pro-stat provides 1684 kcal (100% energy needs), 75gm protein (100% protein needs), 487ml free water. 2) TPN to meet 75% estimated needs if remains NPO 3) Bryce 1 pk BID for DFU Expected Outcomes/Goals: DFU to improve To maintain/gain weight To meet at least 75% estimated needs Fu 2-3 days Interpretation of weight loss: up to 5% in 1 month Muscle Mass (Severe): Mod to Severe Depletion Protein Calorie Malnutrition: Non-Severe Is there a minimum of two crit: Yes Plan discussed with: Patient SIVA GALAVIZ MD Jan 26, 2025 13:51
[2025-01-26] MEDS ORDERED: ACCU-CHEK COMFORT CURVE STRIP VI SCH (14:00)
[2025-01-26] MEDS: ACCU-CHEK COMFORT CURVE STRIP VI SCH (17:35)
[2025-01-26] MEDS: InsuLIN REG 1unit/0.01ml Soln (100units/ml) SC SCH (17:37)
[2025-01-26] MEDS: TPN PER PHARMACY IV NR (22:30)
--- NOTE | 2025-01-26 23:04 | DVHPN2 ---
Consult Progress Note Date Seen: Jan 23, 2025 Subjective Patient reports: Feels worse (RADHA continues to worsen , on high flow nasal canula , underwent thorocenthesis today and has some pain at the site ) Objective vital signs Vital Sign Date Time Temp Pulse Resp B/P (MAP) Pulse Ox O2 Delivery O2 Flow Rate FiO2 01/26/25 22:14 112 21 102/45 (64) 96 30 01/26/25 20:00 99.1 210.4 01/26/25 18:00 Mechanical Ventilator+ 01/24/25 08:00 12 Total Intake and Output 01/25/25 01/25/25 01/26/25 15:00 23:00 07:00 Intake Total 751.0 ml 1047.0 ml 853.5 ml Output Total 10 ml 0 ml Balance 751.0 ml 1037.0 ml 853.5 ml medications Current Medications Medications Dose Ordered Sig/Zaria Route Start Time Stop Time Status Last Admin Dose Admin Ondansetron HCl 4 mg Q4HP PRN IV 01/06/25 15:00 Hold 01/20/25 10:24 4 MG Famotidine 20 mg Q12HR IV 01/07/25 10:00 UNV Diagnostic Test (Pha) 1 strip IQ4HR 01/07/25 08:00 Cancel Calcium Gluconate/ Sodium Chloride 50 ml @ 100 mls/hr Q30M IV 01/08/25 17:30 01/08/25 18:29 Cancel Pantoprazole Sodium 40 mg BID IV 01/10/25 10:00 01/26/25 22:28 40 MG Throat Lozenges 1 reza Q2HPRN PRN MT 01/12/25 22:45 Diphenhydramine HCl 50 mg Q8HR PRN IV 01/20/25 16:15 01/21/25 07:53 50 MG Insulin Glargine 7 units QAM SC 01/21/25 08:30 Hold 01/21/25 08:52 7 UNITS Metoclopramide HCl 10 mg Q8HPRN PRN IV 01/21/25 16:30 Midazolam HCl 50 ml @ 1 mls/hr Q24H IV 01/24/25 04:00 01/25/25 13:00 2 MLS/HR Fentanyl Citrate 250 ml @ 2.5 mls/hr Q24H IV 01/24/25 04:00 01/24/25 04:15 2.5 MLS/HR Norepinephrine Bitartrate 250 ml @ 3.75 mls/hr Q24H IV 01/24/25 04:30 01/24/25 05:33 3.75 MLS/HR Sodium Chloride 10 ml QSHIFT@10,22 IV 01/24/25 22:00 01/26/25 22:28 10 ML Linezolid 300 ml @ 150 mls/hr Q12HR IV 01/24/25 22:00 01/26/25 22:28 150 MLS/HR Nystatin 1 applic BID TOP 01/24/25 22:00 01/26/25 22:00 1 APPLIC Amino Acids 0 ml @ 0 mls/hr PER PHARMACY IV 01/25/25 13:15 Dextrose 50 ml UD IV 01/25/25 13:15 Dextrose 1,000 ml @ 30 mls/hr Q24H IV 01/26/25 10:45 01/26/25 13:50 30 MLS/HR Diagnostic Test (Pha) 1 strip Q4HR 01/26/25 14:00 UNV Fat Emulsion Intravenous 100 ml/Sodium Acetate 20 meq/Potassium Acetate 40 meq/ Potassium Phosphate 44 meq/ Calcium Gluconate 2.3 meq/Magnesium Sulfate 12 meq/ Multivitamins 10 ml/Chromium/ Copper/Manganese/ Zinc 1 ml/Insulin Human Regular 4 units/Amino Acids/ Dextrose/Purified Water 1,458.9862 ml @ 61 mls/hr [id number] IV 01/26/25 22:00 01/27/25 21:59 01/26/25 22:30 61 MLS/HR Diagnostic Test (Pha) 1 strip Q4HR 01/26/25 18:00 01/26/25 22:00 1 STRIP Insulin Human Regular FOLLOW SLIDING SCALE Q4HR SC 01/26/25 18:00 01/26/25 22:32 4 UNITS laboratory and microbiology Laboratory Tests 01/26/25 04:53 Test 01/26/25 04:53 Range/Units Serum Glucose 165 H 74-106 mg/dL Problem List/Assessment/Plan Problems(with codes): (1) Fluid overload (2) Gallstones (3) Gallbladder hydrops (4) History of diabetic ketoacidosis (5) Cannabinoid hyperemesis syndrome (6) Intractable abdominal pain (7) Inadequate oral intake Problem List/Assessment/Plan Problem List/Assessment/Plan Patient is a 44 year old with a past medical history of type 1 diabetes who presents with blood sugars of 940, altered mental status . was started on insulin drip and monitored in ICU . having respiratory distress and respiratory alkalosis . chest xray was unremarkable patient was started empirically on vancomycin and Zosyn . later developed swelling of the lips and out of concern of allergy Zosyn was stopped and switched to Aztreonam and vancomycin was stopped due to acute kidney injury and was switched to linezolid . patient has chronic bilateral foot wounds with no new ulcers , malnourished . both feet ulcers are on the planar surface with a necrotic planar base, on the right foot it looks newer with mild drainage. Currently tolerating antibiotics whitecount is 18.6 , creatinine is 2.24 and patient is on minimal vent and no requiring any presser support . microbiology cultures and respiratory cultures are negative . foot wound was swabbed and is growing MSSA and enterococcus facialis. unclear sensitivities . 01/18: growing MSSA and enterococcus that is sensitive to ampicillin and vancomycin . whitecount is at 21.6. 01/19: whitecount is 19.1 . blood sugars are more controlled . underwent MRI of feet bilaterally and no signs of osteomyelitis , only cellulitis 01/20: switched from aztreonam to cefepime and fluconazole because of candidal infection of the groin which is alse a concer for persistly elevated leukocytosis and ongoing visible cellulitis 01/21: worsening RADHA , may have to stop vancomycin early 01/22: Worsening RADHA , likely edema in the lungs . vancomycin troths was 19.3 on the higher end of normal 01/23: Chest xray shows worsening multifocal pneumonia , patient is also having worsening RADHA Plan : - Continue IV linezolid and topical nystatin 2x a day for growing fungal infection - continue cefepime - f/u on any plural studies done , so far not consistent with parapneumonic pneumonia - if patient continues to have signs of infection will consider acquiring a ct of lower extremities bilaterally to evaluate for unseen abscess or osteomyelitis but can hold off for now - continues empiric coverage - add flagyl to account for loss of anaerobic coverage of necrotic ulcer - defer DKA management to primary care team - defer management of vent support to keep O2 sats above 95% to tiler's assistant team - f/u on pending blood cultures Authorized and Performed by: Lizzy Roland Total critical care time: Approximately 76 minutes Due to a high probability of clinically significant, life threatening deterioration, the patient required my highest level of preparedness to intervene emergently and I personally spent this critical care time directly and personally managing the patient. This critical care time included obtaining a history; examining the patient; pulse oximetry; ordering and review of studies; arranging urgent treatment with development of a management plan; evaluation of patient's response to treatment; frequent reassessment; and, discussions with other providers. This critical care time was performed to assess and manage the high probability of imminent, life-threatening deterioration that could result in multi-organ failure. It was exclusive of separately billable procedures and treating other patients and teaching time. Plan discussed with: Other Dietary Evaluation Review Recommendations by RD: Increase Calorie Intake Comments: Nutrition Recommendation: 1) Vital AF 1.2Cal @ 25ml/hr along with Pro-stat 1 pk BID. start @ 20ml/hr, increase 10ml/hr Q4H until goal is reached. TF @ goal volume along with propofol, IV D5wNS0.45%, and Pro-stat provides 1684 kcal (100% energy needs), 75gm protein (100% protein needs), 487ml free water. 2) TPN to meet 75% estimated needs if remains NPO 3) Bryce 1 pk BID for DFU Expected Outcomes/Goals: DFU to improve To maintain/gain weight To meet at least 75% estimated needs Fu 2-3 days Interpretation of weight loss: up to 5% in 1 month Muscle Mass (Severe): Mod to Severe Depletion Protein Calorie Malnutrition: Non-Severe Is there a minimum of two crit: Yes LIZZY ROLAND MD Jan 26, 2025 23:04
--- NOTE | 2025-01-26 23:33 | DVHPN2 ---
Consult Progress Note Date Seen: Jan 24, 2025 Subjective Patient reports: Feels worse (intubated over the coarse of the day , FIO2 40% , requiring 2-3 mics of levofed . continues to produce less urine . crackles in lungs bilaterally .) Objective vital signs Vital Sign Date Time Temp Pulse Resp B/P (MAP) Pulse Ox O2 Delivery O2 Flow Rate FiO2 01/26/25 22:14 112 21 102/45 (64) 96 30 01/26/25 20:00 99.1 210.4 01/26/25 18:00 Mechanical Ventilator+ 01/24/25 08:00 12 Total Intake and Output 01/25/25 01/25/25 01/26/25 15:00 23:00 07:00 Intake Total 751.0 ml 1047.0 ml 853.5 ml Output Total 10 ml 0 ml Balance 751.0 ml 1037.0 ml 853.5 ml medications Current Medications Medications Dose Ordered Sig/Zaria Route Start Time Stop Time Status Last Admin Dose Admin Ondansetron HCl 4 mg Q4HP PRN IV 01/06/25 15:00 Hold 01/20/25 10:24 4 MG Famotidine 20 mg Q12HR IV 01/07/25 10:00 UNV Diagnostic Test (Pha) 1 strip IQ4HR 01/07/25 08:00 Cancel Calcium Gluconate/ Sodium Chloride 50 ml @ 100 mls/hr Q30M IV 01/08/25 17:30 01/08/25 18:29 Cancel Pantoprazole Sodium 40 mg BID IV 01/10/25 10:00 01/26/25 22:28 40 MG Throat Lozenges 1 reza Q2HPRN PRN MT 01/12/25 22:45 Diphenhydramine HCl 50 mg Q8HR PRN IV 01/20/25 16:15 01/21/25 07:53 50 MG Insulin Glargine 7 units QAM SC 01/21/25 08:30 Hold 01/21/25 08:52 7 UNITS Metoclopramide HCl 10 mg Q8HPRN PRN IV 01/21/25 16:30 Midazolam HCl 50 ml @ 1 mls/hr Q24H IV 01/24/25 04:00 01/25/25 13:00 2 MLS/HR Fentanyl Citrate 250 ml @ 2.5 mls/hr Q24H IV 01/24/25 04:00 01/24/25 04:15 2.5 MLS/HR Norepinephrine Bitartrate 250 ml @ 3.75 mls/hr Q24H IV 01/24/25 04:30 01/24/25 05:33 3.75 MLS/HR Sodium Chloride 10 ml QSHIFT@10,22 IV 01/24/25 22:00 01/26/25 22:28 10 ML Linezolid 300 ml @ 150 mls/hr Q12HR IV 01/24/25 22:00 01/26/25 22:28 150 MLS/HR Nystatin 1 applic BID TOP 01/24/25 22:00 01/26/25 22:00 1 APPLIC Amino Acids 0 ml @ 0 mls/hr PER PHARMACY IV 01/25/25 13:15 Dextrose 50 ml UD IV 01/25/25 13:15 Dextrose 1,000 ml @ 30 mls/hr Q24H IV 01/26/25 10:45 01/26/25 13:50 30 MLS/HR Diagnostic Test (Pha) 1 strip Q4HR 01/26/25 14:00 UNV Fat Emulsion Intravenous 100 ml/Sodium Acetate 20 meq/Potassium Acetate 40 meq/ Potassium Phosphate 44 meq/ Calcium Gluconate 2.3 meq/Magnesium Sulfate 12 meq/ Multivitamins 10 ml/Chromium/ Copper/Manganese/ Zinc 1 ml/Insulin Human Regular 4 units/Amino Acids/ Dextrose/Purified Water 1,458.9862 ml @ 61 mls/hr [id number] IV 01/26/25 22:00 01/27/25 21:59 01/26/25 22:30 61 MLS/HR Diagnostic Test (Pha) 1 strip Q4HR 01/26/25 18:00 01/26/25 22:00 1 STRIP Insulin Human Regular FOLLOW SLIDING SCALE Q4HR SC 01/26/25 18:00 01/26/25 22:32 4 UNITS laboratory and microbiology Laboratory Tests 01/26/25 04:53 Test 01/26/25 04:53 Range/Units Serum Glucose 165 H 74-106 mg/dL Problem List/Assessment/Plan Problems(with codes): (1) Hydronephrosis, right (2) Appendicolith (3) Inadequate oral intake (4) Intractable abdominal pain (5) Cannabinoid hyperemesis syndrome (6) Gallbladder hydrops (7) History of diabetic ketoacidosis (8) Gallstones (9) Fluid overload Problem List/Assessment/Plan Problem List/Assessment/Plan Patient is a 44 year old with a past medical history of type 1 diabetes who presents with blood sugars of 940, altered mental status . was started on insulin drip and monitored in ICU . having respiratory distress and respiratory alkalosis . chest xray was unremarkable patient was started empirically on vancomycin and Zosyn . later developed swelling of the lips and out of concern of allergy Zosyn was stopped and switched to Aztreonam and vancomycin was stopped due to acute kidney injury and was switched to linezolid . patient has chronic bilateral foot wounds with no new ulcers , malnourished . both feet ulcers are on the planar surface with a necrotic planar base, on the right foot it looks newer with mild drainage. Currently tolerating antibiotics whitecount is 18.6 , creatinine is 2.24 and patient is on minimal vent and no requiring any presser support . microbiology cultures and respiratory cultures are negative . foot wound was swabbed and is growing MSSA and enterococcus facialis. unclear sensitivities . 01/18: growing MSSA and enterococcus that is sensitive to ampicillin and vancomycin . whitecount is at 21.6. 01/19: whitecount is 19.1 . blood sugars are more controlled . underwent MRI of feet bilaterally and no signs of osteomyelitis , only cellulitis 01/20: switched from aztreonam to cefepime and fluconazole because of candidal infection of the groin which is alse a concer for persistly elevated leukocytosis and ongoing visible cellulitis 01/21: worsening RADHA , may have to stop vancomycin early 01/22: Worsening RAHDA , likely edema in the lungs . vancomycin troths was 19.3 on the higher end of normal 01/23: Chest xray shows worsening multifocal pneumonia , patient is also having worsening RAHDA 01/24: Chest xray continues to show worsening multifocal pneumonia , worsening leukocytosis and levofed needs consistent with new pneumonia resulting in septic shock or volume overload Plan : - defer to primary team regarding plan for diuresis in setting of possible volume overload - Continue IV linezolid and topical nystatin 2x a day for growing fungal infection - continue cefepime - f/u on any plural studies done , so far not consistent with parapneumonic pneumonia - if patient continues to have signs of infection will consider acquiring a ct of lower extremities bilaterally to evaluate for unseen abscess or osteomyelitis but can hold off for now - continues empiric coverage - add flagyl to account for loss of anaerobic coverage of necrotic ulcer - defer DKA management to primary care team - defer management of vent support to keep O2 sats above 95% to pastrycook's assistant team - f/u on pending blood cultures Authorized and Performed by: Lizzy Roland Total critical care time: Approximately 76 minutes Due to a high probability of clinically significant, life threatening deterioration, the patient required my highest level of preparedness to intervene emergently and I personally spent this critical care time directly and personally managing the patient. This critical care time included obtaining a history; examining the patient; pulse oximetry; ordering and review of studies; arranging urgent treatment with development of a management plan; evaluation of patient's response to treatment; frequent reassessment; and, discussions with other providers. This critical care time was performed to assess and manage the high probability of imminent, life-threatening deterioration that could result in multi-organ failure. It was exclusive of separately billable procedures and treating other patients and teaching time. Plan discussed with: Patient, Other Dietary Evaluation Review Recommendations by RD: Increase Calorie Intake Comments: Nutrition Recommendation: 1) Vital AF 1.2Cal @ 25ml/hr along with Pro-stat 1 pk BID. start @ 20ml/hr, increase 10ml/hr Q4H until goal is reached. TF @ goal volume along with propofol, IV D5wNS0.45%, and Pro-stat provides 1684 kcal (100% energy needs), 75gm protein (100% protein needs), 487ml free water. 2) TPN to meet 75% estimated needs if remains NPO 3) Bryce 1 pk BID for DFU Expected Outcomes/Goals: DFU to improve To maintain/gain weight To meet at least 75% estimated needs Fu 2-3 days Interpretation of weight loss: up to 5% in 1 month Muscle Mass (Severe): Mod to Severe Depletion Protein Calorie Malnutrition: Non-Severe Is there a minimum of two crit: Yes LIZZY ROLAND MD Jan 26, 2025 23:33
--- NOTE | 2025-01-26 23:56 | DVHPN2 ---
Progress Note - Dictate Date Seen: Jan 26, 2025 Medical Necessity Reason Pt with a Central, PICC or Fol: No The following are medically ne: Jones Catheter Reason for jones catheter: Strict I&O Subjective Patient seen and examined at bedside. Intubated on mechanical ventilator. Overnight events reviewed. vital signs Vital Sign Date Time Temp Pulse Resp B/P (MAP) Pulse Ox O2 Delivery O2 Flow Rate FiO2 01/26/25 22:14 112 21 102/45 (64) 96 30 01/26/25 20:00 99.1 210.4 01/26/25 18:00 Mechanical Ventilator+ 01/24/25 08:00 12 Total Intake and Output 01/25/25 01/25/25 01/26/25 15:00 23:00 07:00 Intake Total 751.0 ml 1047.0 ml 853.5 ml Output Total 10 ml 0 ml Balance 751.0 ml 1037.0 ml 853.5 ml medications Current Medications Medications Dose Ordered Sig/Zaria Route Start Time Stop Time Status Last Admin Dose Admin Ondansetron HCl 4 mg Q4HP PRN IV 01/06/25 15:00 Hold 01/20/25 10:24 4 MG Famotidine 20 mg Q12HR IV 01/07/25 10:00 UNV Diagnostic Test (Pha) 1 strip IQ4HR 01/07/25 08:00 Cancel Calcium Gluconate/ Sodium Chloride 50 ml @ 100 mls/hr Q30M IV 01/08/25 17:30 01/08/25 18:29 Cancel Pantoprazole Sodium 40 mg BID IV 01/10/25 10:00 01/26/25 22:28 40 MG Throat Lozenges 1 reza Q2HPRN PRN MT 01/12/25 22:45 Diphenhydramine HCl 50 mg Q8HR PRN IV 01/20/25 16:15 01/21/25 07:53 50 MG Insulin Glargine 7 units QAM SC 01/21/25 08:30 Hold 01/21/25 08:52 7 UNITS Metoclopramide HCl 10 mg Q8HPRN PRN IV 01/21/25 16:30 Midazolam HCl 50 ml @ 1 mls/hr Q24H IV 01/24/25 04:00 01/25/25 13:00 2 MLS/HR Fentanyl Citrate 250 ml @ 2.5 mls/hr Q24H IV 01/24/25 04:00 01/24/25 04:15 2.5 MLS/HR Norepinephrine Bitartrate 250 ml @ 3.75 mls/hr Q24H IV 01/24/25 04:30 01/24/25 05:33 3.75 MLS/HR Sodium Chloride 10 ml QSHIFT@10,22 IV 01/24/25 22:00 01/26/25 22:28 10 ML Linezolid 300 ml @ 150 mls/hr Q12HR IV 01/24/25 22:00 01/26/25 22:28 150 MLS/HR Nystatin 1 applic BID TOP 01/24/25 22:00 01/26/25 22:00 1 APPLIC Amino Acids 0 ml @ 0 mls/hr PER PHARMACY IV 01/25/25 13:15 Dextrose 50 ml UD IV 01/25/25 13:15 Dextrose 1,000 ml @ 30 mls/hr Q24H IV 01/26/25 10:45 01/26/25 13:50 30 MLS/HR Diagnostic Test (Pha) 1 strip Q4HR 01/26/25 14:00 UNV Fat Emulsion Intravenous 100 ml/Sodium Acetate 20 meq/Potassium Acetate 40 meq/ Potassium Phosphate 44 meq/ Calcium Gluconate 2.3 meq/Magnesium Sulfate 12 meq/ Multivitamins 10 ml/Chromium/ Copper/Manganese/ Zinc 1 ml/Insulin Human Regular 4 units/Amino Acids/ Dextrose/Purified Water 1,458.9862 ml @ 61 mls/hr [id number] IV 01/26/25 22:00 01/27/25 21:59 01/26/25 22:30 61 MLS/HR Diagnostic Test (Pha) 1 strip Q4HR 01/26/25 18:00 01/26/25 22:00 1 STRIP Insulin Human Regular FOLLOW SLIDING SCALE Q4HR SC 01/26/25 18:00 01/26/25 22:32 4 UNITS objective Gen.: Patient lying in bed in medical ICU. Intubated on mechanical ventilator. Head: Normocephalic, atraumatic. Eyes: PERRLA. Ears: Normal external anatomy. Throat: Endotracheal tube and orogastric tube in place. Neck: Supple, trachea midline. Chest: Transmitted breath sounds bilaterally. Decreased air entry bilaterally. No wheezing. Bibasilar crackles. Cardiovascular: Positive S1, positive S2. Regular rate and rhythm. Abdomen: Positive bowel sounds in all 4 quadrants. Soft, nontender, nondistended. : Jones in place. Normal external genitalia. Rectal: Deferred. Skin: Warm, dry. Intact. Extremities: 2+ radial pulses bilaterally. No lower extremity edema. Neuro: Off sedation laboratory and microbiology Laboratory Tests 01/26/25 04:53 Test 01/26/25 04:53 Range/Units Serum Glucose 165 H 74-106 mg/dL Assessment/Plan Impression Acute hypoxemic respiratory failure On mechanical ventilator Pneumonia Anemia Diabetic ketoacidosis Events Remains on vent support On AC mode; RR 18, VT 450, PEEP 5, FiO2 30% Pt has been tapered off sedation Continue antibiotics Monitor WBC - 12.8 K Accu-Cheks/ISS. Clinimix for nutritional support Head of bed elevation Aspiration precautions Monitor hemoglobin -trended up to 7.5 g/dL S/p 1 unit PRBC yesterday Protonix BID for GI ppx Hemodialysis per Nephrology. Monitor renal function Monitor electrolytes Supplement as needed Note, patient had apneic episode during CPAP Labs and imaging reviewed Rest of plan as noted below Plan S/p intubation on 01/24/25 On mechanical ventilator. On AC mode; RR 18, VT 450, PEEP 5, FiO2 30% Titrate FIO2 to keep O2 saturation above 90%. VAP bundle. Daily ABG and CXR while intubated Off sedation Pressors as necessary for hemodynamic support. Titrate to keep MAP greater than 65 mmHg. Continue antibiotics Accu-Cheks, ISS Monitor hemoglobin Transfuse if less than 7.0 g/dL. Protonix BID for GI ppx HD per Nephrology Monitor renal function Monitor electrolytes Supplement as needed GI/DVT prophylaxis SBT/COCO. Prognosis: Poor given patient's multiple co-morbidities. Condition: Critical Rest of plan per hospitalist and other consultants. A total of 35 minutes of critical care time was spent reviewing the patient record, examining the patient, making a diagnostic and therapeutic plan, discussing this plan with the medical personnel, following up on diagnostic studies and following the patient for clinical stability excluding any and all procedures. At least 50% of this time was spent in direct, [id number] contact. Thank you Dr. Ramires for allowing me to participate in this patient's care. Further recommendations will depend on the patient's clinical course. Please do not hesitate to contact me if you have any questions or concerns. This medical document was created using an electronic medical record system with [employer] dictation system. Although these documentations are being carefully reviewed, there may still be some phonetic and typographical changes. The errors are purely typographical, due to imperfection on the software program, and do not reflect any compromise in the patient's medical care. Dietary Evaluation Review Recommendations by RD: Increase Calorie Intake Comments: Nutrition Recommendation: 1) Vital AF 1.2Cal @ 25ml/hr along with Pro-stat 1 pk BID. start @ 20ml/hr, increase 10ml/hr Q4H until goal is reached. TF @ goal volume along with propofol, IV D5wNS0.45%, and Pro-stat provides 1684 kcal (100% energy needs), 75gm protein (100% protein needs), 487ml free water. 2) TPN to meet 75% estimated needs if remains NPO 3) Bryce 1 pk BID for DFU Expected Outcomes/Goals: DFU to improve To maintain/gain weight To meet at least 75% estimated needs Fu 2-3 days Interpretation of weight loss: up to 5% in 1 month Muscle Mass (Severe): Mod to Severe Depletion Protein Calorie Malnutrition: Non-Severe Is there a minimum of two crit: Yes Plan discussed with: Other (CARIDAD Rizo) Critical Care Time(min): 35 KEISHA PENN MD Jan 26, 2025 23:56
[2025-01-27] VITALS (94 sets, daily range): BP systolic 89–155; BP diastolic 42–82; PULSE 93–118; RESP 12–34; TEMP 97.9–98.8; O2SAT 91–100
--- NOTE | 2025-01-27 04:57 | DVH ---
CHEST RADIOGRAPH Indication: RESPIRATORY FAILURE Technique: Single frontal view of the chest was obtained COMPARISON: XY CHEST PORTABLE on DOS: 01/26/25, XY CHEST PORTABLE on DOS: 01/25/25, XY CHEST PORTABLE on DOS: 01/24/25, XY CHEST PORTABLE on DOS: 01/24/25, XY CHEST PORTABLE on DOS: 01/24/25, XY CHEST PORTABLE on DOS: 01/26/25 FINDINGS: Lines and Tubes: Endotracheal tube, enteric catheter and right central venous catheter and right PICC in satisfactory position Lungs: Multifocal airspace disease Pleura: No effusion. No pneumothorax. Cardiomediastinal contours: Unremarkable Bones: Unremarkable IMPRESSION: Lines and tubes in satisfactory position. Slightly improved aeration.
[2025-01-27 06:36] LABS: Anion Gap 12 (5-15); BUN/Creatinine Ratio 7.7 (10.0-20.0); Carbon Dioxide 20 mmol/L (20-31); Chloride 102 mmol/L (98-107); Magnesium 1.6 mg/dL (1.6-2.6); Potassium 3.7 mmol/L (3.5-5.1)
[2025-01-27 06:37] LABS: Hemoglobin 7.5 g/dL (13.5-17.5); Mean Corpuscular Volume 76.5 fL (80.0-100.0)
[2025-01-27 06:38] LABS: Hematocrit 22.7 % (41.0-53.0); Mean Corpuscular Hemoglobin 25.3 pg (28.0-32.0)
[2025-01-27 06:43] LABS: Alanine Aminotransferase < 9 U/L (7-40); Albumin 1.8 g/dL (3.2-4.8); Alkaline Phosphatase 642 U/L (46-116); Bilirubin, Total 1.6 mg/dL (0.2-1.0); Blood Urea Nitrogen 25 mg/dL (9-23); Calcium 7.4 mg/dL (8.7-10.4); Glucose 258 mg/dL (74-106); Sodium 134 mmol/L (136-145); Total Protein 4.4 g/dL (5.7-8.2)
[2025-01-27 07:02] LABS: Base Excess -4.7 mmol/L (-2.0-3.0)
[2025-01-27] MEDS: DEXMEDETOMIDINE HCL IN D5W 100 ML IV SCH (08:28)
[2025-01-27] MEDS: MAGNESIUM SULFATE 1GM/100ML 100 ML IV ONE (09:54)
[2025-01-27 10:08] LABS: Anisocytosis Slight; Total Cells Counted 100.0 (100)
[2025-01-27 10:08] LABS: Hepatitis B Surface Antigen Negative (Negative)
[2025-01-27 10:33] LABS: Hepatitis C Antibody Negative (Negative)
--- NOTE | 2025-01-27 10:49 | DVHPNRES ---
Progress Note Date Seen: Jan 27, 2025 Resident Creating Document: ANABELL ORDOÑEZ RESIDENT Medical Necessity Reason Pt with a Central, PICC or Fol: No The following are medically ne: Jones Catheter Reason for jones catheter: Strict I&O Subjective Review of Systems Patient is a 44-year-old male with known history of type 1 diabetes mellitus who presented on 01/06/2025 via EMS for altered level of consciousness. Per EMS, the patient was found unresponsive with a blood glucose of 931 and received 400 cc IV fluids on route. On arrival he exhibited hypoxia, generalized weakness, increased work of breathing necessitating intubation and mechanical ventilation. Patient was started on IV insulin drip, Zosyn and vancomycin with bicarbonate for severe acidosis. A right femoral central line, midline and peripheral IVs were also placed. Of note, patient has a history of poor adherence to his insulin therapy. Per patient's father, patient lives alone in a trailer and had not been heard from since 01/02/2025. Patient was last hospitalized at the [facility] in November 2024 for DKA. On 01/07/2025, patient developed lip swelling while still intubated, chart review revealed a penicillin allergy. Zosyn was discontinued and patient was treated with methylprednisolone and transitioned to meropenem. Nephrology was consulted for RADHA and hypernatremia. A 01/10/2025, patient had begun to improve and was weaned off sedation and was extubated on 01/12/2025 and transferred telemetry. Antibiotics were discontinued at that time due to uncertainty about the cause of leukocytosis (steroids versus infection). However, WBCs continued to trend upwards and the patient developed low-grade fevers, subsequently restarted on linezolid and aztreonam. Patient has bilateral diabetic foot ulcers, left side more advanced than right. MRI of bilateral extremities shows mild subcutaneous edema, possibly cellulitis but no signs of osteomyelitis. Patient was also noted to have a pressure related ulcer to the left heel. Lower extremity arterial Doppler showed no significant stenosis. Vascular surgery evaluated the ulcers but recommended no interventions at this time. Podiatry already on board. 01/20/2025: Held insulin Lantus, discontinued lispro, mild sliding scale q.4 hours only. Started IV fluconazole for candidal infection in the groin. Podiatry reconsulted for evaluation of bilateral lower extremity ulcers. GI consult for anemia and positive stool occult blood. Discontinued linezolid and aztreonam, started on cefepime, vancomycin and metronidazole. 01/21/25: notes improved but continued nausea, new onset abdominal pain 9-05/02, localized to mid abdomen. Patient refused MRI owing to abdominal pain, we will reattempt tomorrow. Added metoclopramide qD along with norco and morphine as needed. Blood glucose in 290s, resumed lantus 7units qAM, however, dropping blood sugar by 4pm therefore discontinued lantus again. Pt refuses to eat and has severe aversion to food 01/22/25: improved abdominal pain today 6-01/30, agreeable to CT abdomen however still refusing MRI L foot. Plan to reattempt tomorrow. new moderate R sided hydronephrosis noted, urology consulted. denies dyspnea, sob. improving nausea. 01/23/2025: Patient notes feeling weaker than yesterday, denies abdominal pain. On physical exam decreased breath sounds more prominent on the left side and some crackles bibasilar. Discontinued vancomycin and started patient on daptomycin. Repeated left foot MRI which showed cellulitis in the lateral 4 for deep to the 5th metatarsal bone marrow wound is noted with overlying dressing, no evidence of osteomyelitis. IV furosemide was increased to 40 mg b.i.d. and patient was transferred to D . 01/24/2025: Overnight patient was intubated due to increasing respiratory distress, patient also underwent thoracentesis with 900 mL of fluid removed on the left side. For starvation/diabetic ketoacidosis, patient was started on an insulin drip and D10, gap was closed and bicarb was stabilized at 20. Blood glucose was 100 with a insulin drip was stopped, patient was started on D5 water at 50 cc/hours. Nephrology increased IV Lasix to 80 mg b.i.d. along with plan for renal replacement therapy tentatively in the p.m.. 01/25/2025- patient received right IJ Dean cath HD cath yesterday. Dialysis done 1 L removed. Today patient continues to have right upper extremity edema 2+. Left upper extremity is restricted has trace pitting edema and restricted due to history of DVT. Patient also has 1 to trace pedal edema bilaterally. Up to mid shins. Patient is not requiring any vasopressors. Patient is ventilated and due to acute hypoxic respiratory failure. Patient has no p.o. intake due to large gastric bubble and possible gastroparesis from prolonged uncontrolled diabetes. We will do TPN via PICC line now and hold off any enteral feeds. Continue IV antibiotics. Patient is anemic less than 7, 1 unit PRBC. Tentative plan to get EPO with HD, which may help. No sources of obvious hemorrhage. We are continuing D5 W for hypernatremia. We will do some education vacation today and if goes well possible CPAP trials tomorrow. We will continue sliding scale insulin Q 2. Patient antibiotics IV is linezolid only. 01/26/2025-no dialysis today. No lower extremity edema. Right upper extremity edema looks improved. Today doing sedation vacation and CPAP trial. Some electrolyte abnormalities not concerning nephrology reviewed. Patient on dialysis but still makes some urine 150 dark brown color. Patient is getting broad-spectrum antibiotics. Clinimix. Sedation vacation but otherwise patient was on Versed and fentanyl. Heart rate upper end of normal in the 100s. Blood pressure stable. No vasopressors. We will decrease Accu-Cheks to q.4. Decrease D5 to 30, being used for recurrent hypoglycemia. Otherwise continue primary team's plan. 01/27/2025: Patient seen and examined at bedside. Noted to have fluid overload, severe scrotal swelling, 2+ lower extremity nonpitting edema up to the thighs along with scleral edema was noted. Urine output of 325 mL in the past 24 hours. Undergoing dialysis today. Had an apneic episode during CPAP trial on 01/26/2025. Objective vital signs Vital Sign Date Time Temp Pulse Resp B/P (MAP) Pulse Ox O2 Delivery O2 Flow Rate FiO2 01/27/25 10:00 113 01/27/25 10:00 15 99 Mechanical Ventilator+ 45 45 01/27/25 09:49 140/54 (82) 01/27/25 08:30 98.1 98.1 Total Intake and Output 01/26/25 01/26/25 01/27/25 15:00 23:00 07:00 Intake Total 794 ml 493 ml 928 ml Output Total 175 ml 150 ml Balance 794 ml 318 ml 778 ml medications Current Medications Medications Dose Ordered Sig/Zaria Route Start Time Stop Time Status Last Admin Dose Admin Ondansetron HCl 4 mg Q4HP PRN IV 01/06/25 15:00 Hold 01/20/25 10:24 4 MG Famotidine 20 mg Q12HR IV 01/07/25 10:00 UNV Diagnostic Test (Pha) 1 strip IQ4HR 01/07/25 08:00 Cancel Calcium Gluconate/ Sodium Chloride 50 ml @ 100 mls/hr Q30M IV 01/08/25 17:30 01/08/25 18:29 Cancel Pantoprazole Sodium 40 mg BID IV 01/10/25 10:00 01/27/25 09:15 40 MG Throat Lozenges 1 reza Q2HPRN PRN MT 01/12/25 22:45 Diphenhydramine HCl 50 mg Q8HR PRN IV 01/20/25 16:15 01/21/25 07:53 50 MG Insulin Glargine 7 units QAM SC 01/21/25 08:30 Hold 01/21/25 08:52 7 UNITS Metoclopramide HCl 10 mg Q8HPRN PRN IV 01/21/25 16:30 Midazolam HCl 50 ml @ 1 mls/hr Q24H IV 01/24/25 04:00 01/25/25 13:00 2 MLS/HR Fentanyl Citrate 250 ml @ 2.5 mls/hr Q24H IV 01/24/25 04:00 01/27/25 07:46 2.5 MLS/HR Norepinephrine Bitartrate 250 ml @ 3.75 mls/hr Q24H IV 01/24/25 04:30 01/24/25 05:33 3.75 MLS/HR Sodium Chloride 10 ml QSHIFT@10,22 IV 01/24/25 22:00 01/27/25 09:16 10 ML Linezolid 300 ml @ 150 mls/hr Q12HR IV 01/24/25 22:00 01/27/25 09:15 150 MLS/HR Nystatin 1 applic BID TOP 01/24/25 22:00 01/27/25 09:21 1 APPLIC Amino Acids 0 ml @ 0 mls/hr PER PHARMACY IV 01/25/25 13:15 Dextrose 50 ml UD IV 01/25/25 13:15 Dextrose 1,000 ml @ 30 mls/hr Q24H IV 01/26/25 10:45 Hold 01/26/25 13:50 30 MLS/HR Diagnostic Test (Pha) 1 strip Q4HR 01/26/25 14:00 UNV Fat Emulsion Intravenous 100 ml/Sodium Acetate 20 meq/Potassium Acetate 40 meq/ Potassium Phosphate 44 meq/ Calcium Gluconate 2.3 meq/Magnesium Sulfate 12 meq/ Multivitamins 10 ml/Chromium/ Copper/Manganese/ Zinc 1 ml/Insulin Human Regular 4 units/Amino Acids/ Dextrose/Purified Water 1,458.9862 ml @ 61 mls/hr [id number] IV 01/26/25 22:00 01/27/25 21:59 01/26/25 22:30 61 MLS/HR Diagnostic Test (Pha) 1 strip Q4HR 01/26/25 18:00 01/27/25 09:21 1 STRIP Insulin Human Regular FOLLOW SLIDING SCALE Q4HR SC 01/26/25 18:00 01/27/25 09:21 2 UNITS Fat Emulsion Intravenous 150 ml/Sodium Acetate 20 meq/Sodium Phosphate 40 meq/ Potassium Acetate 40 meq/Calcium Gluconate 2.3 meq/ Magnesium Sulfate 14 meq/ Multivitamins 10 ml/Insulin Human Regular 10 units/ Amino Acids/ Dextrose/Purified Water 1,458.5462 ml @ 61 mls/hr [id number] IV 01/27/25 22:00 01/28/25 21:59 Examination General Appearance: Intubated and sedated. Malnourished, in mild distress Head Exam: Normal inspection. No vision in right eye, decreased vision in left eye, minimally reactive pupils. Scleral edema Pulmonary/Respiratory: Chest non-tender. decreased bilateral breath sounds, no crackles, no wheezing. Cardiovascular/Chest: Tachycardic. No murmurs. No JVD. Abdominal Exam: Normal bowel sounds. Soft. normal abdomen, no visible veins, nontender No hepatospenomegaly. No masses Lower extremities: 2+ nonpitting lower extremity edema up to the thighs. Left heel pressure ulcer noted. Multiple diabetic foot ulcers on bilateral feet, largest 1 noted on left plantar foot Thoughts/Psych: Normal thought pattern. Appropriate mood and affect Skin Exam: improving groin lesions, redness noted along right gluteal area, scrotal swelling. laboratory and microbiology Laboratory Tests 01/27/25 05:02 Test 01/27/25 05:02 Range/Units Serum Glucose 258 H 74-106 mg/dL Microbiology Date/Time Source Procedure Growth Status 01/24/25 04:15 Sputum Gram Stain - Final Complete 01/24/25 04:15 Sputum Respiratory Culture - Final Complete 01/23/25 20:30 Pleural Fluid Gram Stain - Final Resulted 01/23/25 20:30 Pleural Fluid Body Fluid Culture - Preliminary Resulted 01/22/25 17:30 Voided Urine Urine Culture - Final Complete 01/19/25 16:06 Nose MRSA Screen - Final Complete 01/16/25 19:00 Blood Blood Culture - Final NO GROWTH AFTER 5 DAYS OF INCUBATION. Complete 01/08/25 10:37 Stool Stool Culture - Final Complete 01/08/25 10:37 Stool Shiga Toxin I & II - Final Complete Labs and/or images reviewed: Labs reviewed by me, Image(s) reviewed by me Problem List/Assessment/Plan Problem List/Assessment/Plan Neurology # acute metabolic encephalopathy likely due to DKA vs Sepsis, improving - head CT from 01/07/2025: No acute territorial infarct, intracranial hemorrhage or mass effect - head CT from 01/19/2025: No acute intracranial abnormality - monitor Cardiovascular # runs of AFib on EKG # prolonged QTC # Essential hypertension - avoiding QT prolonging drugs - echocardiogram from 07/20/2022: Overall preserved ventricular systolic function. EF 60%. Grade 1 diastolic dysfunction. - increased amlodipine to 10mg qD - repeat echo: Mild LVH and mild LV diastolic dysfunction. LVEF 65%. Slightly dilated left atrium. Moderately dilated RV and RA. Moderate degree pulmonary hypertension. Normal valves and no effusion. - monitor Respiratory # Community acquired pneumonia, Gram-positive versus Gram-negative # Acute hypoxic respiratory failure due to above, intubated and mechanically ventilated # moderate-large b/l Pleural effusions # moderate pulmonary hypertension with RVSP 46 mmHg - CXR 01/08/25: Bibasilar atelectasis or pneumonia. - CXR 01/20/25: Patchy bilateral airspace disease, [id number], slightly increased - previously on meropenem and vancomycin, stopped on 01/12/2025 - started on aztreonam on 01/17/2025, linezolid 01/16/2025 - discontinued aztreonam and linezolid on 01/20/2025 - started cefepime, vancomycin and metronidazole on 01/20/2025 - discontinued vancomycin 01/23/2025 - s/p thoracentesis with 900 mL of fluid removed on 01/23/2025 Ventilator: AC/VC Tidal volume 450 Respiratory rate 18 Peep 8 FiO2 60% GI # Acute intractable abdominal pain (01/21/25), improved # Microcytic anemia possibly 2' to ?LGI bleed; Hb 7.8 # Moderate abdominopelvic ascites # Peptic ulcer prophylaxis - stool occult blood positive - GI consult - CT abdomen pelvis from 01/07/2025: Nonspecific periportal edema. Incidental finding. -Pantoprazole 40 mg IV daily - serum lipase 113 - repeat CT abdomen pelvis (01/22/25): Moderate to large bilateral pleural effusions with patchy and consolidative infiltrates in the lung bases likely a combination of pneumonia and atelectasis.mLow to moderate volume abdominopelvic ascites and diffuse subcutaneous edema suggestive of anasarca. Moderate right hydronephrosis without visualization of hydroureter or obstructing calculi. This appearance is new versus CT scan dated 01/07/2025. Gallbladder hydrops without visualization of gallstones. This appearance may indicate acalculous cholecystitis. Fluid-filled colon with multiple air-fluid levels present, possibly related to diarrheal illness. No evidence of bowel obstruction, acute appendicitis, or other acute process in the abdomen or pelvis. Nephrology/ # RADHA likely hemodynamically mediated/VMN on possible CKD stage 3 # Anasarca due to above # severe hypoalbuminemia, serum albumin 2 # Diabetic nephropathy likely # Severe hypokalemia, improving # hypernatremia, now improved # asymptomatic hypocalcemia, corrected Ca 8.2mg/dl # moderate right-sided hydronephrosis - treating the underlying sepsis - U protein excretion est 7.1g/day - IV K rider 40mEq - 50 mEq PO potassium x2 - IV lasix 40mg daily - CT abdomen pelvis: Moderate to large bilateral pleural effusions with patchy and consolidative infiltrates in the lung bases likely a combination of pneumonia and atelectasis.Low to moderate volume abdominopelvic ascites and diffuse subcutaneous edema suggestive of anasarca. Moderate right hydronephrosis without visualization of hydroureter or obstructing calculi. This appearance is new versus CT scan dated 01/07/2025. Gallbladder hydrops without visualization of gallstones. This appearance may indicate acalculous cholecystitis. Fluid- filled colon with multiple air-fluid levels present, possibly related to diarrheal illness. No evidence of bowel obstruction, acute appendicitis, or other acute process in the abdomen or pelvis. - urology consulted - reconsulted nephrology Infectious disease # bilateral lower extremity cellulitis # left lower extremity diabetic foot ulcer on the plantar aspect growing Staph aureus # Sepsis due to above # left heel pressure ulcer # ruled out DVT # Fungal cutaneous infection in b/l groin - MRI from 01/09/2025 shows Mild diffuse subcutaneous soft-tissue edema; possibly cellulitis. No bone marrow edema is present to suggest fracture or acute osteomyelitis. - bilateral lower extremity arterial Doppler: No hemodynamically significant stenosis based on peak systolic velocity criteria. - bilateral lower extremity venous Doppler: No right or left femoropopliteal venous thrombosis - discontinued aztreonam and linezolid on 01/20/2025 - started cefepime, vancomycin and metronidazole on 01/20/2025 - podiatry on board - left foot MRI: No MR evidence of osteomyelitis. Cellulitis and lateral 4 for deep of the 5th metatarsal bone were wound is noted overlying dressing. Edema in the intrinsic muscle of the foot may reflect sequelae of denervation, or myositis. - discontinued vancomycin 01/23/2025, started patient on daptomycin on 01/23/2025 - discontinued daptomycin, vancomycin and cefepime on 01/24/2025 - started linezolid on 01/24/2025 - topical nystatin Hem/onc # microcytic anemia # thrombocytosis likely secondary to sepsis - s/p 1 PRBC - GI on board - monitor Endocrine # DKA, now resolved # recurrent episodes of hypoglycemia # severe protein calorie malnutrition # diabetic/starvation ketoacidosis, improving - discontinued lispro - holding insulin Lantus as patient continues to get hypoglycemic - mild sliding scale insulin - D5 water at 50 cc/hour - Accu-Cheks every 90 minutes while on insulin drip - insulin drip at 1 unit/hour Diet TPN at 60 cc/hour Lines - RUE midline placed 01/22/25 - R extremity 20 gauge placed on 01/20/2025 - Right upper extremity 20 gauge placed on 01/23/2025 - right-sided dialysis Dean catheter placed on 01/24/25 Drips Precedex at 0.1 mcg Off of Levophed as of 01/24/2025 Transeferred to OXANA 01/23/25 Physical therapy ordered Code status discussed greater than 20 minutes: Full CODE STATUS. Plan discussed with Dr. Castellano; Plan discussed with: Other (Patient's father, RN) Dietary Evaluation Review Recommendations by RD: Increase Calorie Intake Comments: Nutrition Recommendation: 1) Vital AF 1.2Cal @ 25ml/hr along with Pro-stat 1 pk BID. start @ 20ml/hr, increase 10ml/hr Q4H until goal is reached. TF @ goal volume along with propofol, IV D5wNS0.45%, and Pro-stat provides 1684 kcal (100% energy needs), 75gm protein (100% protein needs), 487ml free water. 2) TPN to meet 75% estimated needs if remains NPO 3) Bryce 1 pk BID for DFU Expected Outcomes/Goals: DFU to improve To maintain/gain weight To meet at least 75% estimated needs Fu 2-3 days Interpretation of weight loss: up to 5% in 1 month Muscle Mass (Severe): Mod to Severe Depletion Protein Calorie Malnutrition: Non-Severe Is there a minimum of two crit: Yes ANABELL ORDOÑEZ RESIDENT Jan 27, 2025 10:49
[2025-01-27] MEDS: SODIUM PHOSP 20MEQ(15MMOL) IN NS 100 ML IV ONE (11:26)
[2025-01-27] MEDS ORDERED: FUROSEMIDE 40 MG/4 ML VIAL IV SCH (12:15)
[2025-01-27] MEDS: FUROSEMIDE 40 MG/4 ML VIAL IV SCH (12:44)
[2025-01-27] MEDS: SODIUM CHL 0.9% 1000 ML BAG XX ONE (14:00)
--- NOTE | 2025-01-27 15:38 | DVHPN2 ---
Progress Note Date Seen: Jan 27, 2025 Medical Necessity Reason Pt with a Central, PICC or Fol: No The following are medically ne: Jones Catheter Reason for jones catheter: Strict I&O Subjective Patient reports: Other (Patient extubated and then reintubated father bedside) Review of Systems: Deferred Objective vital signs Vital Sign Date Time Temp Pulse Resp B/P (MAP) Pulse Ox O2 Delivery O2 Flow Rate FiO2 01/27/25 15:00 98.5 103 13 142/51 (81) 100 98.5 01/27/25 14:00 40 01/27/25 14:00 Mechanical Ventilator+ Total Intake and Output 01/26/25 01/26/25 01/27/25 15:00 23:00 07:00 Intake Total 794 ml 493 ml 928 ml Output Total 175 ml 150 ml Balance 794 ml 318 ml 778 ml medications Current Medications Medications Dose Ordered Sig/Zaria Route Start Time Stop Time Status Last Admin Dose Admin Ondansetron HCl 4 mg Q4HP PRN IV 01/06/25 15:00 Hold 01/20/25 10:24 4 MG Famotidine 20 mg Q12HR IV 01/07/25 10:00 UNV Diagnostic Test (Pha) 1 strip IQ4HR 01/07/25 08:00 Cancel Calcium Gluconate/ Sodium Chloride 50 ml @ 100 mls/hr Q30M IV 01/08/25 17:30 01/08/25 18:29 Cancel Pantoprazole Sodium 40 mg BID IV 01/10/25 10:00 01/27/25 09:15 40 MG Throat Lozenges 1 reza Q2HPRN PRN MT 01/12/25 22:45 Diphenhydramine HCl 50 mg Q8HR PRN IV 01/20/25 16:15 01/21/25 07:53 50 MG Insulin Glargine 7 units QAM SC 01/21/25 08:30 Hold 01/21/25 08:52 7 UNITS Metoclopramide HCl 10 mg Q8HPRN PRN IV 01/21/25 16:30 Midazolam HCl 50 ml @ 1 mls/hr Q24H IV 01/24/25 04:00 01/25/25 13:00 2 MLS/HR Fentanyl Citrate 250 ml @ 2.5 mls/hr Q24H IV 01/24/25 04:00 01/27/25 07:46 2.5 MLS/HR Norepinephrine Bitartrate 250 ml @ 3.75 mls/hr Q24H IV 01/24/25 04:30 01/24/25 05:33 3.75 MLS/HR Sodium Chloride 10 ml QSHIFT@10,22 IV 01/24/25 22:00 01/27/25 09:16 10 ML Linezolid 300 ml @ 150 mls/hr Q12HR IV 01/24/25 22:00 01/27/25 09:15 150 MLS/HR Nystatin 1 applic BID TOP 01/24/25 22:00 01/27/25 09:21 1 APPLIC Amino Acids 0 ml @ 0 mls/hr PER PHARMACY IV 01/25/25 13:15 Dextrose 50 ml UD IV 01/25/25 13:15 Diagnostic Test (Pha) 1 strip Q4HR 01/26/25 14:00 UNV Fat Emulsion Intravenous 100 ml/Sodium Acetate 20 meq/Potassium Acetate 40 meq/ Potassium Phosphate 44 meq/ Calcium Gluconate 2.3 meq/Magnesium Sulfate 12 meq/ Multivitamins 10 ml/Chromium/ Copper/Manganese/ Zinc 1 ml/Insulin Human Regular 4 units/Amino Acids/ Dextrose/Purified Water 1,458.9862 ml @ 61 mls/hr Q09F10H IV 01/26/25 22:00 01/27/25 21:59 01/26/25 22:30 61 MLS/HR Diagnostic Test (Pha) 1 strip Q4HR 01/26/25 18:00 01/27/25 13:59 1 STRIP Insulin Human Regular FOLLOW SLIDING SCALE Q4HR WA 01/26/25 18:00 01/27/25 09:21 2 UNITS Fat Emulsion Intravenous 150 ml/Sodium Acetate 20 meq/Sodium Phosphate 40 meq/ Potassium Acetate 40 meq/Calcium Gluconate 2.3 meq/ Magnesium Sulfate 14 meq/ Multivitamins 10 ml/Insulin Human Regular 10 units/ Amino Acids/ Dextrose/Purified Water 1,458.5462 ml @ 61 mls/hr [id number] IV 01/27/25 22:00 01/28/25 21:59 Furosemide 40 mg DAILY IV 01/27/25 12:45 01/27/25 12:44 40 MG Examination: GENERAL:Abnormal, MSK:Abnormal (Positive edema in upper extremities), NEURO:Abnormal laboratory and microbiology Laboratory Tests 01/27/25 05:02 Test 01/27/25 05:02 Range/Units Serum Glucose 258 H 74-106 mg/dL Microbiology Date/Time Source Procedure Growth Status 01/26/25 08:46 Urine - Jones [place] Urine Culture - Preliminary Resulted 01/24/25 04:15 Sputum Gram Stain - Final Complete 01/24/25 04:15 Sputum Respiratory Culture - Final Complete 01/23/25 20:30 Pleural Fluid Gram Stain - Final Resulted 01/23/25 20:30 Pleural Fluid Body Fluid Culture - Preliminary Resulted 01/19/25 16:06 Nose MRSA Screen - Final Complete 01/16/25 19:00 Blood Blood Culture - Final NO GROWTH AFTER 5 DAYS OF INCUBATION. Complete 01/08/25 10:37 Stool Stool Culture - Final Complete 01/08/25 10:37 Stool Shiga Toxin I & II - Final Complete Problem List/Assessment/Plan Problem List/Assessment/Plan Acute kidney injury superimposed Chronic Kidney Disease stage IIIB secondary hemodynamic mediated ATN, FeNa > 2% - recurrent needing dialysis Acute hypoxic respiratory failure, patient extubated and then reintubated Hypernatremia due to dehydration Hypocalcemia Hypomagnesemia Hypokalemia Anemia of chronic kidney disease Recommendations Hemodialysis today UF as tolerated Continue diuretics Plan discussed with: Other My Orders My Orders Orders - VIDHYA NEVES MD Procedure Category Date Status Time Furosemide Injection PHA 01/27/25 In Process (Lasix Injection) 12:45 Hemodialysis Orders ORDERS 01/27/25 Transmitted 14:21 Dietary Evaluation Review Recommendations by RD: Increase Calorie Intake Comments: Nutrition Recommendation: 1) Vital AF 1.2Cal @ 25ml/hr along with Pro-stat 1 pk BID. start @ 20ml/hr, increase 10ml/hr Q4H until goal is reached. TF @ goal volume along with propofol, IV D5wNS0.45%, and Pro-stat provides 1684 kcal (100% energy needs), 75gm protein (100% protein needs), 487ml free water. 2) TPN to meet 75% estimated needs if remains NPO 3) Bryce 1 pk BID for DFU Expected Outcomes/Goals: DFU to improve To maintain/gain weight To meet at least 75% estimated needs Fu 2-3 days Interpretation of weight loss: up to 5% in 1 month Muscle Mass (Severe): Mod to Severe Depletion Protein Calorie Malnutrition: Non-Severe Is there a minimum of two crit: Yes VIDHYA NEVES MD Jan 27, 2025 15:38
--- NOTE | 2025-01-27 21:14 | DVHPN2 ---
Progress Note - Dictate Date Seen: Jan 27, 2025 Medical Necessity Reason Pt with a Central, PICC or Fol: No The following are medically ne: Jones Catheter Reason for jones catheter: Strict I&O Subjective No new complaints Patient is still intubated and sedated Currently patient is on IV TPN Two bowel movements are recorded earlier in the week but no bowel movements for the last 2-3 days Abdomen is less distended Stool for occult blood was positive with moderate WBC H&H is stable at 7.5 Noted to have fluid overload, severe scrotal swelling, 2+ lower extremity nonpitting edema up to the thighs along with scleral edema was noted. Urine output of 325 mL in the past 24 hours. Undergoing dialysis today. Had an apneic episode during CPAP trial on 01/26/2025. Last endoscopy by me in 2022 Operative Report DATE OF OPERATION: 04/28/23 PROCEDURE: Upper Endoscopy with biopsy. PREOPERATIVE INDICATION: The patient is a 43 -year-old male undergoing endoscopy for recurrent nausea vomiting GERD and history of gastroparesis POSTOPERATIVE DIAGNOSES: 1. 3 cm sliding-type hiatal hernia with moderate grade C linear erosive esophagitis extending into the distal 6-7 cm of the esophagus 2. No evidence of gastroparesis and otherwise normal examination up to the third part of the duodenum with good bile drainage vital signs Vital Sign Date Time Temp Pulse Resp B/P (MAP) Pulse Ox O2 Delivery O2 Flow Rate FiO2 01/27/25 20:30 97 17 119/65 (83) 100 01/27/25 20:28 35 01/27/25 20:00 98.5 98.5 01/27/25 18:00 Mechanical Ventilator+ Total Intake and Output 01/26/25 01/26/25 01/27/25 15:00 23:00 07:00 Intake Total 794 ml 493 ml 928 ml Output Total 175 ml 150 ml Balance 794 ml 318 ml 778 ml medications Current Medications Medications Dose Ordered Sig/Zaria Route Start Time Stop Time Status Last Admin Dose Admin Ondansetron HCl 4 mg Q4HP PRN IV 01/06/25 15:00 Hold 01/20/25 10:24 4 MG Famotidine 20 mg Q12HR IV 01/07/25 10:00 UNV Diagnostic Test (Pha) 1 strip IQ4HR 01/07/25 08:00 Cancel Calcium Gluconate/ Sodium Chloride 50 ml @ 100 mls/hr Q30M IV 01/08/25 17:30 01/08/25 18:29 Cancel Pantoprazole Sodium 40 mg BID IV 01/10/25 10:00 01/27/25 09:15 40 MG Throat Lozenges 1 reza Q2HPRN PRN MT 01/12/25 22:45 Diphenhydramine HCl 50 mg Q8HR PRN IV 01/20/25 16:15 01/21/25 07:53 50 MG Insulin Glargine 7 units QAM SC 01/21/25 08:30 Hold 01/21/25 08:52 7 UNITS Metoclopramide HCl 10 mg Q8HPRN PRN IV 01/21/25 16:30 Midazolam HCl 50 ml @ 1 mls/hr Q24H IV 01/24/25 04:00 01/25/25 13:00 2 MLS/HR Fentanyl Citrate 250 ml @ 2.5 mls/hr Q24H IV 01/24/25 04:00 01/27/25 07:46 2.5 MLS/HR Norepinephrine Bitartrate 250 ml @ 3.75 mls/hr Q24H IV 01/24/25 04:30 01/24/25 05:33 3.75 MLS/HR Sodium Chloride 10 ml QSHIFT@10,22 IV 01/24/25 22:00 01/27/25 09:16 10 ML Linezolid 300 ml @ 150 mls/hr Q12HR IV 01/24/25 22:00 01/27/25 09:15 150 MLS/HR Nystatin 1 applic BID TOP 01/24/25 22:00 01/27/25 09:21 1 APPLIC Amino Acids 0 ml @ 0 mls/hr PER PHARMACY IV 01/25/25 13:15 Dextrose 50 ml UD IV 01/25/25 13:15 Diagnostic Test (Pha) 1 strip Q4HR 01/26/25 14:00 UNV Fat Emulsion Intravenous 100 ml/Sodium Acetate 20 meq/Potassium Acetate 40 meq/ Potassium Phosphate 44 meq/ Calcium Gluconate 2.3 meq/Magnesium Sulfate 12 meq/ Multivitamins 10 ml/Chromium/ Copper/Manganese/ Zinc 1 ml/Insulin Human Regular 4 units/Amino Acids/ Dextrose/Purified Water 1,458.9862 ml @ 61 mls/hr [id number] IV 01/26/25 22:00 01/27/25 21:59 01/26/25 22:30 61 MLS/HR Diagnostic Test (Pha) 1 strip Q4HR 01/26/25 18:00 01/27/25 17:33 1 STRIP Insulin Human Regular FOLLOW SLIDING SCALE Q4HR SC 01/26/25 18:00 01/27/25 09:21 2 UNITS Fat Emulsion Intravenous 150 ml/Sodium Acetate 20 meq/Sodium Phosphate 40 meq/ Potassium Acetate 40 meq/Calcium Gluconate 2.3 meq/ Magnesium Sulfate 14 meq/ Multivitamins 10 ml/Insulin Human Regular 10 units/ Amino Acids/ Dextrose/Purified Water 1,458.5462 ml @ 61 mls/hr [id number] IV 01/27/25 22:00 01/28/25 21:59 Furosemide 40 mg DAILY IV 01/27/25 12:45 01/27/25 12:44 40 MG objective Intubated sedated hemodynamically stable Mild Abdominal distention no masses Generalized anasarca and scrotal swelling laboratory and microbiology Laboratory Tests 01/27/25 05:02 Test 01/27/25 05:02 Range/Units Serum Glucose 258 H 74-106 mg/dL CXR Lungs: Multifocal airspace disease Pleura: No effusion. No pneumothorax. Cardiomediastinal contours: Unremarkable CT SCAN ABD PELVIS 01/22/25 IMPRESSION: 1. Moderate to large bilateral pleural effusions with patchy and consolidative infiltrates in the lung bases likely a combination of pneumonia and atelectasis. 2. Low to moderate volume abdominopelvic ascites and diffuse subcutaneous edema suggestive of anasarca. 3. Moderate right hydronephrosis without visualization of hydroureter or obstructing calculi. This appearance is new versus CT scan dated 01/07/2025. 4. Gallbladder hydrops without visualization of gallstones. This appearance may indicate acalculous cholecystitis. 5. Fluid-filled colon with multiple air-fluid levels present, possibly related to diarrheal illness. 6. No evidence of bowel obstruction, acute appendicitis, or other acute process in the abdomen or pelvis. Right Bones: Unremarkable IMPRESSION: Lines and tubes in satisfactory position. Slightly improved aeration. Problems(with codes): (1) Generalized weakness (2) Metabolic encephalopathy (3) Acute kidney injury (4) Sepsis, unspecified organism (5) Acute renal insufficiency (6) Altered mental status (7) Symptomatic anemia (8) Erosive esophagitis (9) Hiatal hernia (10) Leukocytosis (11) Gallbladder hydrops (12) Gallstones (13) Hydronephrosis, right Prognosis Plan Continue IV antibiotics; linzolid And IV Flagyl Patient also appears to have some colitis with positive stool and many WBC His stool for C diff and bacterial culture were negative on admission Consider starting enteral tube feedings Continue IV Protonix 40 mg q.12 hours Monitor labs Elective colonoscopy once medically stabilized Right upper quadrant ultrasound to re-evaluate gallbladder and right kidney Dietary Evaluation Review Recommendations by RD: Increase Calorie Intake Comments: Nutrition Recommendation: 1) Vital AF 1.2Cal @ 25ml/hr along with Pro-stat 1 pk BID. start @ 20ml/hr, increase 10ml/hr Q4H until goal is reached. TF @ goal volume along with propofol, IV D5wNS0.45%, and Pro-stat provides 1684 kcal (100% energy needs), 75gm protein (100% protein needs), 487ml free water. 2) TPN to meet 75% estimated needs if remains NPO 3) Bryce 1 pk BID for DFU Expected Outcomes/Goals: DFU to improve To maintain/gain weight To meet at least 75% estimated needs Fu 2-3 days Interpretation of weight loss: up to 5% in 1 month Muscle Mass (Severe): Mod to Severe Depletion Protein Calorie Malnutrition: Non-Severe Is there a minimum of two crit: Yes Plan discussed with: Other ([facility] Nurse) LETTY GENTILE MD Jan 27, 2025 21:14
[2025-01-27] MEDS: EPOETIN ALFA-EPBX 4,000 UNIT/ML VIAL SC ONE (22:04)
[2025-01-27] MEDS: TPN PER PHARMACY IV NR (22:14)
--- NOTE | 2025-01-27 22:55 | DVH ---
EXAM: US GALLBLADDER HISTORY: gallstones; GB distension hydronephrosis COMPARISON: US ABDOMEN LIMITED on DOS: 04/19/23, RIGHT LOWER QUAD on DOS: 02/10/22, GBUS on DOS: 2 TECHNIQUE: Right upper quadrant ultrasound was performed. FINDINGS: The liver measures 21.8 cm. Coarsened texture of the liver. Common bile duct measures 3.8 mm. The gallbladder is unremarkable without stones. Right kidney measures 11.8 cm without hydronephrosis. Abdominal sites noted. IMPRESSION: 1. Hepatomegaly with coarsened echotexture which can be seen in the setting of liver disease / fibro sis. 2. Ascities
[2025-01-28] VITALS (106 sets, daily range): BP systolic 99–140; BP diastolic 43–73; PULSE 89–114; RESP 13–33; TEMP 97.6–98.8; O2SAT 90–100
--- NOTE | 2025-01-28 04:45 | DVH ---
CHEST RADIOGRAPH Indication: Intubated Technique: Single frontal view of the chest was obtained COMPARISON: XY CHEST PORTABLE on DOS: 01/27/25, XY CHEST PORTABLE on DOS: 01/26/25, XY CHEST PORTABLE on DOS: 01/25/25, XY CHEST PORTABLE on DOS: 01/24/25, XY CHEST PORTABLE on DOS: 01/24/25 FINDINGS: Lines and Tubes: Unchanged. Lungs: Stable appearing diffuse multifocal bilateral pulmonary airspace disease with mild consolidati ve features within the bibasilar regions. Small bilateral pleural effusions are not excluded. No pneumothorax. Cardiomediastinal contours: Unremarkable Bones: Unremarkable IMPRESSION: 1. Stable appearing diffuse multifocal bilateral pulmonary airspace disease with bibasilar consolidat saroj features. 2. Probable small bilateral pleural effusions. 3. Lines and tubes unchanged.
[2025-01-28 05:00] LABS: Hematocrit 22.3 % (41.0-53.0); Hemoglobin 7.5 g/dL (13.5-17.5); Mean Corpuscular Hemoglobin 25.4 pg (28.0-32.0); Mean Corpuscular Volume 75.6 fL (80.0-100.0)
[2025-01-28 05:34] LABS: Anion Gap 9 (5-15); BUN/Creatinine Ratio 8.7 (10.0-20.0); Blood Urea Nitrogen 20 mg/dL (9-23); Carbon Dioxide 25 mmol/L (20-31); Chloride 100 mmol/L (98-107); Magnesium 1.9 mg/dL (1.6-2.6); Potassium 3.9 mmol/L (3.5-5.1)
[2025-01-28 05:37] LABS: Anisocytosis Slight; Total Cells Counted 100.0 (100)
[2025-01-28 05:45] LABS: Sodium 134 mmol/L (136-145)
[2025-01-28 05:46] LABS: Alanine Aminotransferase 9 U/L (7-40); Albumin 2.0 g/dL (3.2-4.8); Alkaline Phosphatase 1383 U/L (46-116); Bilirubin, Total 2.0 mg/dL (0.2-1.0); Calcium 7.1 mg/dL (8.7-10.4); Glucose 150 mg/dL (74-106); Total Protein 4.7 g/dL (5.7-8.2)
[2025-01-28 08:11] LABS: Base Excess 0.3 mmol/L (-2.0-3.0)
[2025-01-28] MEDS: SODIUM PHOSP 20MEQ(15MMOL) IN NS 100 ML IV ONE (11:08)
[2025-01-28 13:07] LABS: Glucose, Body Fluid 182.0 mg/dL (.); LD, Body Fluid 140.0 IU/L (.)
[2025-01-28 15:01] LABS: Lactic Acid w/Reflex 3.0 mmol/L (0.4-2.0)
--- NOTE | 2025-01-28 15:36 | DVHPN2 ---
Progress Note - Dictate Date Seen: Jan 28, 2025 Medical Necessity Reason Pt with a Central, PICC or Fol: No The following are medically ne: Jones Catheter Reason for jones catheter: Strict I&O Subjective No new complaints Patient is still intubated and sedated Currently patient is on IV TPN Two bowel movements are recorded earlier in the week but no bowel movements for the last 2-3 days Stool for occult blood was positive with moderate WBC H&H is stable at 7.5; leukocytosis is improving Repeat ultrasound of the gallbladder is normal but patient continues to have rising alkaline phosphatase Rising elevated alkaline phosphatase over 1300 today Noted to have fluid overload, severe scrotal swelling, 2+ lower extremity nonpitting edema up to the thighs along with scleral edema was noted. Urine output of 325 mL in the past 24 hours. Undergoing dialysis today. Had an apneic episode during CPAP trial on 01/26/2025. Last endoscopy by me in 2022 Operative Report DATE OF OPERATION: 04/28/23 PROCEDURE: Upper Endoscopy with biopsy. PREOPERATIVE INDICATION: The patient is a 43 -year-old male undergoing endoscopy for recurrent nausea vomiting GERD and history of gastroparesis POSTOPERATIVE DIAGNOSES: 1. 3 cm sliding-type hiatal hernia with moderate grade C linear erosive esophagitis extending into the distal 6-7 cm of the esophagus 2. No evidence of gastroparesis and otherwise normal examination up to the third part of the duodenum with good bile drainage vital signs Vital Sign Date Time Temp Pulse Resp B/P (MAP) Pulse Ox O2 Delivery O2 Flow Rate FiO2 01/28/25 14:00 100 01/28/25 14:00 35 01/28/25 14:00 25 118/59 (78) 94 01/28/25 14:00 Mechanical Ventilator+ 01/28/25 12:00 98.6 98.6 Total Intake and Output 01/27/25 01/27/25 01/28/25 15:00 23:00 07:00 Intake Total 1112.535 ml 800.274 ml 698.6 ml Output Total 2250 ml 220 ml Balance 1112.535 ml -1449.726 ml 478.6 ml medications Current Medications Medications Dose Ordered Sig/Zaria Route Start Time Stop Time Status Last Admin Dose Admin Ondansetron HCl 4 mg Q4HP PRN IV 01/06/25 15:00 Hold 01/20/25 10:24 4 MG Famotidine 20 mg Q12HR IV 01/07/25 10:00 UNV Diagnostic Test (Pha) 1 strip IQ4HR 01/07/25 08:00 Cancel Calcium Gluconate/ Sodium Chloride 50 ml @ 100 mls/hr Q30M IV 01/08/25 17:30 01/08/25 18:29 Cancel Pantoprazole Sodium 40 mg BID IV 01/10/25 10:00 01/28/25 09:31 40 MG Throat Lozenges 1 reza Q2HPRN PRN MT 01/12/25 22:45 Diphenhydramine HCl 50 mg Q8HR PRN IV 01/20/25 16:15 01/21/25 07:53 50 MG Insulin Glargine 7 units QAM SC 01/21/25 08:30 Hold 01/21/25 08:52 7 UNITS Metoclopramide HCl 10 mg Q8HPRN PRN IV 01/21/25 16:30 Midazolam HCl 50 ml @ 1 mls/hr Q24H IV 01/24/25 04:00 01/25/25 13:00 2 MLS/HR Fentanyl Citrate 250 ml @ 2.5 mls/hr Q24H IV 01/24/25 04:00 01/27/25 07:46 2.5 MLS/HR Norepinephrine Bitartrate 250 ml @ 3.75 mls/hr Q24H IV 01/24/25 04:30 01/24/25 05:33 3.75 MLS/HR Sodium Chloride 10 ml QSHIFT@10,22 IV 01/24/25 22:00 01/28/25 09:31 10 ML Linezolid 300 ml @ 150 mls/hr Q12HR IV 01/24/25 22:00 01/28/25 09:31 150 MLS/HR Nystatin 1 applic BID TOP 01/24/25 22:00 01/28/25 10:31 1 APPLIC Amino Acids 0 ml @ 0 mls/hr PER PHARMACY IV 01/25/25 13:15 Dextrose 50 ml UD IV 01/25/25 13:15 Diagnostic Test (Pha) 1 strip Q4HR 01/26/25 14:00 UNV Diagnostic Test (Pha) 1 strip Q4HR 01/26/25 18:00 01/28/25 13:40 1 STRIP Insulin Human Regular FOLLOW SLIDING SCALE Q4HR SC 01/26/25 18:00 01/28/25 13:40 4 UNITS Fat Emulsion Intravenous 150 ml/Sodium Acetate 20 meq/Sodium Phosphate 40 meq/ Potassium Acetate 40 meq/Calcium Gluconate 2.3 meq/ Magnesium Sulfate 14 meq/ Multivitamins 10 ml/Insulin Human Regular 10 units/ Amino Acids/ Dextrose/Purified Water 1,458.5462 ml @ 61 mls/hr [id number] IV 01/27/25 22:00 01/28/25 21:59 01/27/25 22:14 61 MLS/HR Metronidazole 100 ml @ 100 mls/hr Q8HR IV 01/27/25 22:00 01/28/25 13:33 100 MLS/HR Fat Emulsion Intravenous 150 ml/Sodium Chloride 40 meq/ Sodium Acetate 20 meq/Sodium Phosphate 20 meq/ Potassium Acetate 40 meq/Calcium Gluconate 4.64 meq/Magnesium Sulfate 14 meq/ Multivitamins 10 ml/Insulin Human Regular 5 units/ Amino Acids/ Dextrose/Purified Water 1,468.5284 ml @ 61 mls/hr Q24H5M IV 01/28/25 22:00 01/29/25 21:59 Furosemide 40 mg BID IV 01/28/25 22:00 UNV objective Intubated sedated hemodynamically stable Mild Abdominal distention no masses Generalized anasarca and scrotal swelling laboratory and microbiology Laboratory Tests 01/28/25 04:39 Test 01/28/25 04:39 Range/Units Serum Glucose 150 #H 74-106 mg/dL Gallbladder USG IMPRESSION: 1. Hepatomegaly with coarsened echotexture which can be seen in the setting of liver disease / fibrosis. 2. Ascities Problems(with codes): (1) Fluid overload (2) Gallbladder hydrops (3) Cannabinoid hyperemesis syndrome (4) Intractable abdominal pain (5) Hydronephrosis, right (6) Coffee ground emesis (7) Metabolic encephalopathy Prognosis Plan Check hepatitis panel serum ferritin KARINA , monitor labs Ultrasound of the abdomen shows improvement in gallbladder hydrops and there was no gallstone identified Taper off IV TPN as this could be contributing to his rising alkaline phosphatase Start enteral tube feedings Prognosis remains guarded IV diuresis and salt poor albumin Dietary Evaluation Review Recommendations by RD: Increase Calorie Intake Comments: Nutrition Recommendation: 1) Vital AF 1.2Cal @ 25ml/hr along with Pro-stat 1 pk BID. start @ 20ml/hr, increase 10ml/hr Q4H until goal is reached. TF @ goal volume along with propofol, IV D5wNS0.45%, and Pro-stat provides 1684 kcal (100% energy needs), 75gm protein (100% protein needs), 487ml free water. 2) TPN to meet 75% estimated needs if remains NPO 3) Bryce 1 pk BID for DFU Expected Outcomes/Goals: DFU to improve To maintain/gain weight To meet at least 75% estimated needs Fu 2-3 days Interpretation of weight loss: up to 5% in 1 month Muscle Mass (Severe): Mod to Severe Depletion Protein Calorie Malnutrition: Non-Severe Is there a minimum of two crit: Yes Plan discussed with: Other (Dr Reveles) LETTY GENTILE MD Jan 28, 2025 15:36
--- NOTE | 2025-01-28 16:43 | DVHPNRES ---
Progress Note Date Seen: Jan 28, 2025 Resident Creating Document: ANABELL ORDOÑEZ RESIDENT Medical Necessity Reason Pt with a Central, PICC or Fol: No The following are medically ne: Jones Catheter Reason for jones catheter: Strict I&O Subjective Review of Systems Patient is a 44-year-old male with known history of type 1 diabetes mellitus who presented on 01/06/2025 via EMS for altered level of consciousness. Per EMS, the patient was found unresponsive with a blood glucose of 931 and received 400 cc IV fluids on route. On arrival he exhibited hypoxia, generalized weakness, increased work of breathing necessitating intubation and mechanical ventilation. Patient was started on IV insulin drip, Zosyn and vancomycin with bicarbonate for severe acidosis. A right femoral central line, midline and peripheral IVs were also placed. Of note, patient has a history of poor adherence to his insulin therapy. Per patient's father, patient lives alone in a trailer and had not been heard from since 01/02/2025. Patient was last hospitalized at the [facility] in November 2024 for DKA. On 01/07/2025, patient developed lip swelling while still intubated, chart review revealed a penicillin allergy. Zosyn was discontinued and patient was treated with methylprednisolone and transitioned to meropenem. Nephrology was consulted for RADHA and hypernatremia. A 01/10/2025, patient had begun to improve and was weaned off sedation and was extubated on 01/12/2025 and transferred telemetry. Antibiotics were discontinued at that time due to uncertainty about the cause of leukocytosis (steroids versus infection). However, WBCs continued to trend upwards and the patient developed low-grade fevers, subsequently restarted on linezolid and aztreonam. Patient has bilateral diabetic foot ulcers, left side more advanced than right. MRI of bilateral extremities shows mild subcutaneous edema, possibly cellulitis but no signs of osteomyelitis. Patient was also noted to have a pressure related ulcer to the left heel. Lower extremity arterial Doppler showed no significant stenosis. Vascular surgery evaluated the ulcers but recommended no interventions at this time. Podiatry already on board. 01/20/2025: Held insulin Lantus, discontinued lispro, mild sliding scale q.4 hours only. Started IV fluconazole for candidal infection in the groin. Podiatry reconsulted for evaluation of bilateral lower extremity ulcers. GI consult for anemia and positive stool occult blood. Discontinued linezolid and aztreonam, started on cefepime, vancomycin and metronidazole. 01/21/25: notes improved but continued nausea, new onset abdominal pain 9-05/02, localized to mid abdomen. Patient refused MRI owing to abdominal pain, we will reattempt tomorrow. Added metoclopramide qD along with norco and morphine as needed. Blood glucose in 290s, resumed lantus 7units qAM, however, dropping blood sugar by 4pm therefore discontinued lantus again. Pt refuses to eat and has severe aversion to food 01/22/25: improved abdominal pain today 6-01/30, agreeable to CT abdomen however still refusing MRI L foot. Plan to reattempt tomorrow. new moderate R sided hydronephrosis noted, urology consulted. denies dyspnea, sob. improving nausea. 01/23/2025: Patient notes feeling weaker than yesterday, denies abdominal pain. On physical exam decreased breath sounds more prominent on the left side and some crackles bibasilar. Discontinued vancomycin and started patient on daptomycin. Repeated left foot MRI which showed cellulitis in the lateral 4 for deep to the 5th metatarsal bone marrow wound is noted with overlying dressing, no evidence of osteomyelitis. IV furosemide was increased to 40 mg b.i.d. and patient was transferred to D . 01/24/2025: Overnight patient was intubated due to increasing respiratory distress, patient also underwent thoracentesis with 900 mL of fluid removed on the left side. For starvation/diabetic ketoacidosis, patient was started on an insulin drip and D10, gap was closed and bicarb was stabilized at 20. Blood glucose was 100 with a insulin drip was stopped, patient was started on D5 water at 50 cc/hours. Nephrology increased IV Lasix to 80 mg b.i.d. along with plan for renal replacement therapy tentatively in the p.m.. 01/25/2025- patient received right IJ Dean cath HD cath yesterday. Dialysis done 1 L removed. Today patient continues to have right upper extremity edema 2+. Left upper extremity is restricted has trace pitting edema and restricted due to history of DVT. Patient also has 1 to trace pedal edema bilaterally. Up to mid shins. Patient is not requiring any vasopressors. Patient is ventilated and due to acute hypoxic respiratory failure. Patient has no p.o. intake due to large gastric bubble and possible gastroparesis from prolonged uncontrolled diabetes. We will do TPN via PICC line now and hold off any enteral feeds. Continue IV antibiotics. Patient is anemic less than 7, 1 unit PRBC. Tentative plan to get EPO with HD, which may help. No sources of obvious hemorrhage. We are continuing D5 W for hypernatremia. We will do some education vacation today and if goes well possible CPAP trials tomorrow. We will continue sliding scale insulin Q 2. Patient antibiotics IV is linezolid only. 01/26/2025-no dialysis today. No lower extremity edema. Right upper extremity edema looks improved. Today doing sedation vacation and CPAP trial. Some electrolyte abnormalities not concerning nephrology reviewed. Patient on dialysis but still makes some urine 150 dark brown color. Patient is getting broad-spectrum antibiotics. Clinimix. Sedation vacation but otherwise patient was on Versed and fentanyl. Heart rate upper end of normal in the 100s. Blood pressure stable. No vasopressors. We will decrease Accu-Cheks to q.4. Decrease D5 to 30, being used for recurrent hypoglycemia. Otherwise continue primary team's plan. 01/27/2025: Patient seen and examined at bedside. Noted to have fluid overload, severe scrotal swelling, 2+ lower extremity nonpitting edema up to the thighs along with scleral edema was noted. Urine output of 325 mL in the past 24 hours. Undergoing dialysis today. Had an apneic episode during CPAP trial on 01/26/2025. 01/28/2025: Patient seen and examined at bedside. Minimal improvement in edema, s/p dialysis yesterday on 01/27/2025. Continues to have nonpitting edema up to knees along with scleral and scrotal edema. Jaundiced appearance noted. Objective vital signs Vital Sign Date Time Temp Pulse Resp B/P (MAP) Pulse Ox O2 Delivery O2 Flow Rate FiO2 01/28/25 14:30 98 29 115/55 (75) 94 35 01/28/25 14:00 Mechanical Ventilator+ 01/28/25 12:00 98.6 98.6 Total Intake and Output 01/27/25 01/27/25 01/28/25 15:00 23:00 07:00 Intake Total 1112.535 ml 800.274 ml 698.6 ml Output Total 2250 ml 220 ml Balance 1112.535 ml -1449.726 ml 478.6 ml medications Current Medications Medications Dose Ordered Sig/Zaria Route Start Time Stop Time Status Last Admin Dose Admin Famotidine 20 mg Q12HR IV 01/07/25 10:00 UNV Diagnostic Test (Pha) 1 strip IQ4HR 01/07/25 08:00 Cancel Calcium Gluconate/ Sodium Chloride 50 ml @ 100 mls/hr Q30M IV 01/08/25 17:30 01/08/25 18:29 Cancel Pantoprazole Sodium 40 mg BID IV 01/10/25 10:00 01/28/25 09:31 40 MG Metoclopramide HCl 10 mg Q8HPRN PRN IV 01/21/25 16:30 Midazolam HCl 50 ml @ 1 mls/hr Q24H IV 01/24/25 04:00 01/28/25 16:35 1 MLS/HR Fentanyl Citrate 250 ml @ 2.5 mls/hr Q24H IV 01/24/25 04:00 01/27/25 07:46 2.5 MLS/HR Norepinephrine Bitartrate 250 ml @ 3.75 mls/hr Q24H IV 01/24/25 04:30 01/24/25 05:33 3.75 MLS/HR Sodium Chloride 10 ml QSHIFT@10,22 IV 01/24/25 22:00 01/28/25 09:31 10 ML Linezolid 300 ml @ 150 mls/hr Q12HR IV 01/24/25 22:00 01/28/25 09:31 150 MLS/HR Nystatin 1 applic BID TOP 01/24/25 22:00 01/28/25 10:31 1 APPLIC Amino Acids 0 ml @ 0 mls/hr PER PHARMACY IV 01/25/25 13:15 Dextrose 50 ml UD IV 01/25/25 13:15 Diagnostic Test (Pha) 1 strip Q4HR 01/26/25 14:00 UNV Diagnostic Test (Pha) 1 strip Q4HR 01/26/25 18:00 01/28/25 13:40 1 STRIP Insulin Human Regular FOLLOW SLIDING SCALE Q4HR SC 01/26/25 18:00 01/28/25 13:40 4 UNITS Fat Emulsion Intravenous 150 ml/Sodium Acetate 20 meq/Sodium Phosphate 40 meq/ Potassium Acetate 40 meq/Calcium Gluconate 2.3 meq/ Magnesium Sulfate 14 meq/ Multivitamins 10 ml/Insulin Human Regular 10 units/ Amino Acids/ Dextrose/Purified Water 1,458.5462 ml @ 61 mls/hr [id number] IV 01/27/25 22:00 01/28/25 21:59 01/27/25 22:14 61 MLS/HR Metronidazole 100 ml @ 100 mls/hr Q8HR IV 01/27/25 22:00 01/28/25 13:33 100 MLS/HR Fat Emulsion Intravenous 150 ml/Sodium Chloride 40 meq/ Sodium Acetate 20 meq/Sodium Phosphate 20 meq/ Potassium Acetate 40 meq/Calcium Gluconate 4.64 meq/Magnesium Sulfate 14 meq/ Multivitamins 10 ml/Insulin Human Regular 5 units/ Amino Acids/ Dextrose/Purified Water 1,468.5284 ml @ 61 mls/hr Q24H5M IV 01/28/25 22:00 01/29/25 21:59 Furosemide 40 mg BID IV 01/28/25 22:00 UNV Examination General Appearance: Intubated and sedated. Malnourished, in mild distress. Jaundiced Head Exam: Normal inspection. No vision in right eye, decreased vision in left eye, minimally reactive pupils. Scleral edema Pulmonary/Respiratory: Chest non-tender. decreased bilateral breath sounds, no crackles, no wheezing. Cardiovascular/Chest: Tachycardic. No murmurs. No JVD. Abdominal Exam: Normal bowel sounds. Soft. normal abdomen, no visible veins, nontender No hepatospenomegaly. No masses Lower extremities: 2+ nonpitting lower extremity edema up to the thighs. Left heel pressure ulcer noted. Multiple diabetic foot ulcers on bilateral feet, largest 1 noted on left plantar foot with a dark black necrotic appearance Thoughts/Psych: Normal thought pattern. Appropriate mood and affect Skin Exam: improving groin lesions, redness noted along right gluteal area, scrotal swelling. laboratory and microbiology Laboratory Tests 01/28/25 04:39 Test 01/28/25 04:39 Range/Units Serum Glucose 150 #H 74-106 mg/dL Microbiology Date/Time Source Procedure Growth Status 01/26/25 08:46 Urine - Jones Port Urine Culture - Final Complete 01/24/25 04:15 Sputum Gram Stain - Final Complete 01/24/25 04:15 Sputum Respiratory Culture - Final Complete 01/23/25 20:30 Pleural Fluid Gram Stain - Final Resulted 01/23/25 20:30 Pleural Fluid Body Fluid Culture - Preliminary Resulted 01/19/25 16:06 Nose MRSA Screen - Final Complete 01/16/25 19:00 Blood Blood Culture - Final NO GROWTH AFTER 5 DAYS OF INCUBATION. Complete 01/08/25 10:37 Stool Stool Culture - Final Complete 01/08/25 10:37 Stool Shiga Toxin I & II - Final Complete Labs and/or images reviewed: Labs reviewed by me, Image(s) reviewed by me Problem List/Assessment/Plan Problem List/Assessment/Plan Neurology # acute metabolic encephalopathy likely due to DKA vs Sepsis, improving - head CT from 01/07/2025: No acute territorial infarct, intracranial hemorrhage or mass effect - head CT from 01/19/2025: No acute intracranial abnormality - monitor Cardiovascular # runs of AFib on EKG # prolonged QTC # Essential hypertension - avoiding QT prolonging drugs - echocardiogram from 07/20/2022: Overall preserved ventricular systolic function. EF 60%. Grade 1 diastolic dysfunction. - increased amlodipine to 10mg qD - repeat echo: Mild LVH and mild LV diastolic dysfunction. LVEF 65%. Slightly dilated left atrium. Moderately dilated RV and RA. Moderate degree pulmonary hypertension. Normal valves and no effusion. - monitor Respiratory # Community acquired pneumonia, Gram-positive versus Gram-negative # Acute hypoxic respiratory failure due to above, intubated and mechanically ventilated # moderate-large b/l Pleural effusions # moderate pulmonary hypertension with RVSP 46 mmHg - CXR 01/08/25: Bibasilar atelectasis or pneumonia. - CXR 01/20/25: Patchy bilateral airspace disease, [id number], slightly increased - previously on meropenem and vancomycin, stopped on 01/12/2025 - started on aztreonam on 01/17/2025, linezolid 01/16/2025 - discontinued aztreonam and linezolid on 01/20/2025 - started cefepime, vancomycin and metronidazole on 01/20/2025 - discontinued vancomycin 01/23/2025 - s/p thoracentesis with 900 mL of fluid removed on 01/23/2025 Ventilator: AC/VC Tidal volume 450 Respiratory rate 18 Peep 8 FiO2 35% GI # Acute intractable abdominal pain (01/21/25), improved # Microcytic anemia possibly 2' to ?LGI bleed; Hb 7.8 # Moderate abdominopelvic ascites # Peptic ulcer prophylaxis # gallbladder hydrops # isolated rise in alkaline phosphatase - stool occult blood positive - GI consult - CT abdomen pelvis from 01/07/2025: Nonspecific periportal edema. Incidental finding. -Pantoprazole 40 mg IV daily - serum lipase 113 - repeat CT abdomen pelvis (01/22/25): Moderate to large bilateral pleural effusions with patchy and consolidative infiltrates in the lung bases likely a combination of pneumonia and atelectasis.mLow to moderate volume abdominopelvic ascites and diffuse subcutaneous edema suggestive of anasarca. Moderate right hydronephrosis without visualization of hydroureter or obstructing calculi. This appearance is new versus CT scan dated 01/07/2025. Gallbladder hydrops without visualization of gallstones. This appearance may indicate acalculous cholecystitis. Fluid-filled colon with multiple air-fluid levels present, possibly related to diarrheal illness. No evidence of bowel obstruction, acute appendicitis, or other acute process in the abdomen or pelvis. 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 Moderate right hydronephrosis without visualization of hydroureter or obstructing calculi. This appearance is new versus CT scan dated 01/07/2025. Gallbladder hydrops without visualization of gallstones. This appearance may indicate acalculous cholecystitis. Fluid- filled colon with multiple air-fluid levels present, possibly related to diarrheal illness. No evidence of bowel obstruction, acute appendicitis, or other acute process in the abdomen or pelvis. - urology consulted - reconsulted nephrology - serum parathyroid hormone 185.9, corrected calcium 8.7 Infectious disease # bilateral lower extremity cellulitis # left lower extremity diabetic foot ulcer on the plantar aspect growing Staph aureus # Sepsis due to above # left heel pressure ulcer # ruled out DVT # Fungal cutaneous infection in b/l groin - MRI from 01/09/2025 shows Mild diffuse subcutaneous soft-tissue edema; possibly cellulitis. No bone marrow edema is present to suggest fracture or acute osteomyelitis. - bilateral lower extremity arterial Doppler: No hemodynamically significant stenosis based on peak systolic velocity criteria. - bilateral lower extremity venous Doppler: No right or left femoropopliteal venous thrombosis - discontinued aztreonam and linezolid on 01/20/2025 - started cefepime, vancomycin and metronidazole on 01/20/2025 - podiatry on board - left foot MRI: No MR evidence of osteomyelitis. Cellulitis and lateral 4 for deep of the 5th metatarsal bone were wound is noted overlying dressing. Edema in the intrinsic muscle of the foot may reflect sequelae of denervation, or myositis. - discontinued vancomycin 01/23/2025, started patient on daptomycin on 01/23/2025 - discontinued daptomycin, vancomycin and cefepime on 01/24/2025 - started linezolid on 01/24/2025 - topical nystatin Hem/onc # microcytic anemia # thrombocytosis likely secondary to sepsis - s/p 2 PRBC - GI on board - monitor Endocrine # DKA, now resolved # recurrent episodes of hypoglycemia # severe protein calorie malnutrition # diabetic/starvation ketoacidosis, improved - discontinued lispro - holding insulin Lantus as patient continues to get hypoglycemic - mild sliding scale insulin - D5 water at 50 cc/hour - Accu-Cheks every 90 minutes while on insulin drip - insulin drip at 1 unit/hour Diet Nepro carb steady with ProStat tube feedings Lines - right PICC line paced on 01/24/2025 - right-sided Dean catheter placed on 01/24/2025 - Jones catheter exchanged on 01/26/2025 Drips Precedex at 0.4 mcg Off of Levophed as of 01/24/2025 Transeferred to OXANA 01/23/25 Physical therapy ordered critical care time excluding procedures was 81 mins Code status discussed greater than 20 minutes: Full CODE STATUS. Plan discussed with Dr. Dan Plan discussed with: Other (RN) My Orders My Orders Orders - ANABELL ORDOÑEZ RESIDENT Procedure Category Date Status Time Apply/Change Dressing ASTHYA 01/27/25 In Process 16:45 Abg W/ Co-Ox RT 01/28/25 Logged 08:11 Dietary Evaluation Review Recommendations by RD: Increase Calorie Intake Comments: Nutrition Recommendation: 1) Vital AF 1.2Cal @ 25ml/hr along with Pro-stat 1 pk BID. start @ 20ml/hr, increase 10ml/hr Q4H until goal is reached. TF @ goal volume along with propofol, IV D5wNS0.45%, and Pro-stat provides 1684 kcal (100% energy needs), 75gm protein (100% protein needs), 487ml free water. 2) TPN to meet 75% estimated needs if remains NPO 3) Bryce 1 pk BID for DFU Expected Outcomes/Goals: DFU to improve To maintain/gain weight To meet at least 75% estimated needs Fu 2-3 days Interpretation of weight loss: up to 5% in 1 month Muscle Mass (Severe): Mod to Severe Depletion Protein Calorie Malnutrition: Non-Severe Is there a minimum of two crit: Yes Date of Service: Jan 28, 2025 Billing Provider: AMY DAN MD Common Visit Codes: 02176-GOCENAKY CARE 30-74 MIN, 35546-DVEYAPOW CARE-EACH +30MIN ANABELL ORDOÑEZ Jan 28, 2025 16:43 AMY DAN MD Jan 29, 2025 17:40
[2025-01-28] MEDS ORDERED: Nepro With Carb Steady 1 Liter Bottle GT SCH (16:45)
[2025-01-28] MEDS: Pro-Stat SF 30ml Vanilla PO SCH (18:00)
--- NOTE | 2025-01-28 18:45 | DVHPN2 ---
Progress Note Date Seen: Jan 28, 2025 Medical Necessity Reason Pt with a Central, PICC or Fol: No The following are medically ne: Jones Catheter Reason for jones catheter: Strict I&O Subjective Patient reports: Other (Intubated) Review of Systems: Deferred Objective vital signs Vital Sign Date Time Temp Pulse Resp B/P (MAP) Pulse Ox O2 Delivery O2 Flow Rate FiO2 01/28/25 18:31 113 28 140/65 (90) 95 35 01/28/25 18:00 Mechanical Ventilator+ 01/28/25 12:00 98.6 98.6 Total Intake and Output 01/27/25 01/27/25 01/28/25 15:00 23:00 07:00 Intake Total 1112.535 ml 800.274 ml 698.6 ml Output Total 2250 ml 220 ml Balance 1112.535 ml -1449.726 ml 478.6 ml medications Current Medications Medications Dose Ordered Sig/Zaria Route Start Time Stop Time Status Last Admin Dose Admin Famotidine 20 mg Q12HR IV 01/07/25 10:00 UNV Diagnostic Test (Pha) 1 strip IQ4HR 01/07/25 08:00 Cancel Calcium Gluconate/ Sodium Chloride 50 ml @ 100 mls/hr Q30M IV 01/08/25 17:30 01/08/25 18:29 Cancel Pantoprazole Sodium 40 mg BID IV 01/10/25 10:00 01/28/25 09:31 40 MG Metoclopramide HCl 10 mg Q8HPRN PRN IV 01/21/25 16:30 Midazolam HCl 50 ml @ 1 mls/hr Q24H IV 01/24/25 04:00 01/28/25 18:34 5 MLS/HR Fentanyl Citrate 250 ml @ 2.5 mls/hr Q24H IV 01/24/25 04:00 01/27/25 07:46 2.5 MLS/HR Norepinephrine Bitartrate 250 ml @ 3.75 mls/hr Q24H IV 01/24/25 04:30 01/24/25 05:33 3.75 MLS/HR Sodium Chloride 10 ml QSHIFT@10,22 IV 01/24/25 22:00 01/28/25 09:31 10 ML Linezolid 300 ml @ 150 mls/hr Q12HR IV 01/24/25 22:00 01/28/25 09:31 150 MLS/HR Nystatin 1 applic BID TOP 01/24/25 22:00 01/28/25 10:31 1 APPLIC Dextrose 50 ml UD IV 01/25/25 13:15 Diagnostic Test (Pha) 1 strip Q4HR 01/26/25 14:00 UNV Diagnostic Test (Pha) 1 strip Q4HR 01/26/25 18:00 01/28/25 18:05 1 STRIP Insulin Human Regular FOLLOW SLIDING SCALE Q4HR SC 01/26/25 18:00 01/28/25 13:40 4 UNITS Metronidazole 100 ml @ 100 mls/hr Q8HR IV 01/27/25 22:00 01/28/25 13:33 100 MLS/HR Furosemide 40 mg BID IV 01/28/25 22:00 Enteral Nutritional Formula 1,000 ml 20ML/HR GT 01/28/25 16:45 UNV Amino Acid Protein 30 ml TIDWM PO 01/28/25 18:00 UNV Examination: GENERAL:Abnormal, MSK:Abnormal (edema), SKIN:Abnormal, NEURO:Abnormal laboratory and microbiology Laboratory Tests 01/28/25 04:39 Test 01/28/25 04:39 Range/Units Serum Glucose 150 #H 74-106 mg/dL Microbiology Date/Time Source Procedure Growth Status 01/26/25 08:46 Urine - Jones Port Urine Culture - Final Complete 01/24/25 04:15 Sputum Gram Stain - Final Complete 01/24/25 04:15 Sputum Respiratory Culture - Final Complete 01/23/25 20:30 Pleural Fluid Gram Stain - Final Resulted 01/23/25 20:30 Pleural Fluid Body Fluid Culture - Preliminary Resulted 01/19/25 16:06 Nose MRSA Screen - Final Complete 01/16/25 19:00 Blood Blood Culture - Final NO GROWTH AFTER 5 DAYS OF INCUBATION. Complete 01/08/25 10:37 Stool Stool Culture - Final Complete 01/08/25 10:37 Stool Shiga Toxin I & II - Final Complete Problem List/Assessment/Plan Problem List/Assessment/Plan Acute kidney injury superimposed Chronic Kidney Disease stage IIIB secondary hemodynamic mediated ATN, FeNa > 2% - needing dialysis Acute hypoxic respiratory failure, patient extubated and then reintubated Hypernatremia due to dehydration Hypocalcemia Hypomagnesemia Hypokalemia Anemia of chronic kidney disease Recommendations Hemodialysis 01/28 uf 2L off Continue diuretics--increase dose Next HD tomorrow if staffing permits Plan discussed with: Other (father ) My Orders My Orders Orders - VIDHYA NEVES MD Procedure Category Date Status Time Furosemide Injection PHA 01/28/25 In Process (Lasix Injection) 22:00 Dietary Evaluation Review Recommendations by RD: Increase Calorie Intake Comments: Nutrition Recommendation: 1) Vital AF 1.2Cal @ 25ml/hr along with Pro-stat 1 pk BID. start @ 20ml/hr, increase 10ml/hr Q4H until goal is reached. TF @ goal volume along with propofol, IV D5wNS0.45%, and Pro-stat provides 1684 kcal (100% energy needs), 75gm protein (100% protein needs), 487ml free water. 2) TPN to meet 75% estimated needs if remains NPO 3) Bryce 1 pk BID for DFU Expected Outcomes/Goals: DFU to improve To maintain/gain weight To meet at least 75% estimated needs Fu 2-3 days Interpretation of weight loss: up to 5% in 1 month Muscle Mass (Severe): Mod to Severe Depletion Protein Calorie Malnutrition: Non-Severe Is there a minimum of two crit: Yes VIDHYA NEVES MD Jan 28, 2025 18:45
[2025-01-28] MEDS ORDERED: [UNRECOGNIZED DRUG - OTHER] IV NR (22:00)
[2025-01-28] MEDS ORDERED: SODIUM CHLORIDE IV NR (22:00)
[2025-01-28] MEDS ORDERED: SODIUM ACETATE IV NR (22:00)
[2025-01-28] MEDS ORDERED: FAT EMULSION IV NR (22:00)
[2025-01-28] MEDS: FUROSEMIDE 40 MG/4 ML VIAL IV SCH (22:27)
[2025-01-29] VITALS (108 sets, daily range): BP systolic 91–148; BP diastolic 34–71; PULSE 98–130; RESP 9–30; TEMP 97.2–98.6; O2SAT 85–100
--- NOTE | 2025-01-29 04:25 | DVH ---
CHEST RADIOGRAPH Indication: Intubated Technique: Single frontal view of the chest was obtained Comparison: XY CHEST PORTABLE on DOS: 01/28/25. FINDINGS: Lines and Tubes: The endotracheal tube terminates 5.4 cm above the nata. Right central venous cath eter terminates in the superior vena cava. Right PICC terminates in the superior cavoatrial junction. The enteric tube courses below the left hemidiaphragm and the tip extends outside the field of view. Lungs: Bilateral airspace and interstitial opacities. Pleura: No effusion. No pneumothorax. Cardiomediastinal contours: Unremarkable Bones: No acute osseous abnormality. IMPRESSION: 1. Bilateral interstitial and airspace disease.
[2025-01-29 05:06] LABS: Mean Corpuscular Hemoglobin 25.0 pg (28.0-32.0)
[2025-01-29 05:11] LABS: Hematocrit 20.4 % (41.0-53.0); Mean Corpuscular Volume 76.7 fL (80.0-100.0)
[2025-01-29 05:17] LABS: Hemoglobin 6.6 g/dL (13.5-17.5)
[2025-01-29 05:21] LABS: INR 1.21 (0.9-1.15); Partial Thromboplastin Time 28.1 SEC (24.5-34.5); Prothrombin Time 12.6 sec (9.3-11.8)
[2025-01-29 05:26] LABS: Alanine Aminotransferase 16 U/L (7-40); Anion Gap 10 (5-15); BUN/Creatinine Ratio 9.3 (10.0-20.0); Carbon Dioxide 25 mmol/L (20-31); Chloride 99 mmol/L (98-107); Potassium 3.5 mmol/L (3.5-5.1)
[2025-01-29 05:27] LABS: Albumin 2.1 g/dL (3.2-4.8); Bilirubin, Total 2.9 mg/dL (0.2-1.0); Blood Urea Nitrogen 24 mg/dL (9-23); Calcium 7.2 mg/dL (8.7-10.4); Glucose 136 mg/dL (74-106); Sodium 134 mmol/L (136-145); Total Protein 4.6 g/dL (5.7-8.2)
[2025-01-29 05:43] LABS: Alkaline Phosphatase 2037 U/L (46-116)
[2025-01-29 06:04] LABS: Base Excess -0.5 mmol/L (-2.0-3.0)
[2025-01-29 06:27] LABS: Anisocytosis Slight; Total Cells Counted 100.0 (100)
[2025-01-29] MEDS ORDERED: ALBUMIN 25% 100 ML IV PRN (09:45)
[2025-01-29] MEDS: ALBUMIN 25% 100 ML IV ONE (09:50)
[2025-01-29 11:33] LABS: Hepatitis A Total Antibody Positive (Negative)
[2025-01-29 11:34] LABS: Hepatitis B Surface Antigen Negative (Negative); Hepatitis C Antibody Negative (Negative)
[2025-01-29] MEDS: SODIUM CHL 0.9% 1000 ML BAG XX ONE (11:45)
--- NOTE | 2025-01-29 18:33 | DVHPN2 ---
Progress Note Date Seen: Jan 29, 2025 Medical Necessity Reason Pt with a Central, PICC or Fol: No The following are medically ne: Jones Catheter Reason for jones catheter: Strict I&O Subjective Patient reports: Other Review of Systems: Deferred Objective vital signs Vital Sign Date Time Temp Pulse Resp B/P (MAP) Pulse Ox O2 Delivery O2 Flow Rate FiO2 01/29/25 15:02 112 19 114/51 (72) 94 30 01/29/25 12:00 98.1 98.1 01/29/25 12:00 Mechanical Ventilator+ 01/29/25 10:00 2 Total Intake and Output 01/28/25 01/28/25 01/29/25 14:59 22:59 06:59 Intake Total 1042.258 ml 255.258 ml 797.5 ml Output Total 500 ml 250 ml Balance 1042.258 ml -244.742 ml 547.5 ml medications Current Medications Medications Dose Ordered Sig/Zaria Route Start Time Stop Time Status Last Admin Dose Admin Famotidine 20 mg Q12HR IV 01/07/25 10:00 UNV Diagnostic Test (Pha) 1 strip IQ4HR 01/07/25 08:00 Cancel Calcium Gluconate/ Sodium Chloride 50 ml @ 100 mls/hr Q30M IV 01/08/25 17:30 01/08/25 18:29 Cancel Pantoprazole Sodium 40 mg BID IV 01/10/25 10:00 01/29/25 12:20 40 MG Metoclopramide HCl 10 mg Q8HPRN PRN IV 01/21/25 16:30 Midazolam HCl 50 ml @ 1 mls/hr Q24H IV 01/24/25 04:00 01/29/25 12:36 8 MLS/HR Fentanyl Citrate 250 ml @ 2.5 mls/hr Q24H IV 01/24/25 04:00 01/29/25 06:36 12.5 MLS/HR Norepinephrine Bitartrate 250 ml @ 3.75 mls/hr Q24H IV 01/24/25 04:30 01/29/25 09:52 3.75 MLS/HR Sodium Chloride 10 ml QSHIFT@10,22 IV 01/24/25 22:00 01/29/25 12:20 10 ML Linezolid 300 ml @ 150 mls/hr Q12HR IV 01/24/25 22:00 01/29/25 12:20 150 MLS/HR Nystatin 1 applic BID TOP 01/24/25 22:00 01/29/25 12:37 1 APPLIC Dextrose 50 ml UD IV 01/25/25 13:15 Diagnostic Test (Pha) 1 strip Q4HR 01/26/25 14:00 UNV Diagnostic Test (Pha) 1 strip Q4HR 01/26/25 18:00 01/29/25 10:26 1 STRIP Insulin Human Regular FOLLOW SLIDING SCALE Q4HR SC 01/26/25 18:00 01/29/25 14:43 4 UNITS Metronidazole 100 ml @ 100 mls/hr Q8HR IV 01/27/25 22:00 01/29/25 14:42 100 MLS/HR Furosemide 40 mg BID IV 01/28/25 22:00 01/29/25 12:20 40 MG Enteral Nutritional Formula 1,000 ml 20ML/HR GT 01/28/25 16:45 Amino Acid Protein 30 ml TIDWM PO 01/28/25 18:00 01/29/25 12:20 30 ML Examination: GENERAL:Abnormal, LUNGS:Abnormal, MSK:Abnormal (edema ), NEURO:Abnormal laboratory and microbiology Laboratory Tests 01/29/25 04:45 Test 01/29/25 04:45 Range/Units Serum Glucose 136 H 74-106 mg/dL Microbiology Date/Time Source Procedure Growth Status 01/26/25 08:46 Urine - Jones Port Urine Culture - Final Complete 01/24/25 04:15 Sputum Gram Stain - Final Complete 01/24/25 04:15 Sputum Respiratory Culture - Final Complete 01/23/25 20:30 Pleural Fluid Gram Stain - Final Complete 01/23/25 20:30 Pleural Fluid Body Fluid Culture - Final Complete 01/19/25 16:06 Nose MRSA Screen - Final Complete 01/16/25 19:00 Blood Blood Culture - Final NO GROWTH AFTER 5 DAYS OF INCUBATION. Complete 01/08/25 10:37 Stool Stool Culture - Final Complete 01/08/25 10:37 Stool Shiga Toxin I & II - Final Complete Problem List/Assessment/Plan Problem List/Assessment/Plan Acute kidney injury superimposed Chronic Kidney Disease stage IIIB secondary hemodynamic mediated ATN, FeNa > 2% - needing dialysis Acute hypoxic respiratory failure, patient extubated and then reintubated Hypernatremia due to dehydration Hypocalcemia Hypomagnesemia Hypokalemia Anemia of chronic kidney disease Recommendations Hemodialysis 01/29 uf 2L off s/p prbc 1 u Continue diuretics--increase dose continue HD as uop less on diuretics d/w resident Plan discussed with: Other My Orders My Orders Orders - VIDHYA NEVES MD Procedure Category Date Status Time Hemodialysis Orders ORDERS 01/29/25 Transmitted 04:00 Communication Order ORDERS 01/29/25 Transmitted 07:03 Dialysis Nursing SATHYA 01/29/25 In Process Message 11:23 Document Fluid Input SATHYA 01/29/25 In Process And Outpu 11:23 Epoetin Paolo-Epbx PHA 01/29/25 In Process (Retacrit) 21:00 Dietary Evaluation Review Recommendations by RD: Increase Calorie Intake Comments: Nutrition Recommendation: 1) Vital AF 1.2Cal @ 25ml/hr along with Pro-stat 1 pk BID. start @ 20ml/hr, increase 10ml/hr Q4H until goal is reached. TF @ goal volume along with propofol, IV D5wNS0.45%, and Pro-stat provides 1684 kcal (100% energy needs), 75gm protein (100% protein needs), 487ml free water. 2) TPN to meet 75% estimated needs if remains NPO 3) Bryce 1 pk BID for DFU Expected Outcomes/Goals: DFU to improve To maintain/gain weight To meet at least 75% estimated needs Fu 2-3 days Interpretation of weight loss: up to 5% in 1 month Muscle Mass (Severe): Mod to Severe Depletion Protein Calorie Malnutrition: Non-Severe Is there a minimum of two crit: Yes Critical Care Time (mins): 39 VIDHYA NEVES MD Jan 29, 2025 18:33
--- NOTE | 2025-01-29 20:05 | DVHPNRES ---
Progress Note Date Seen: Jan 29, 2025 Resident Creating Document: ANABELL ORDOÑEZ RESIDENT Medical Necessity Reason Pt with a Central, PICC or Fol: No The following are medically ne: Jones Catheter Reason for jones catheter: Strict I&O Subjective Review of Systems Patient is a 44-year-old male with known history of type 1 diabetes mellitus who presented on 01/06/2025 via EMS for altered level of consciousness. Per EMS, the patient was found unresponsive with a blood glucose of 931 and received 400 cc IV fluids on route. On arrival he exhibited hypoxia, generalized weakness, increased work of breathing necessitating intubation and mechanical ventilation. Patient was started on IV insulin drip, Zosyn and vancomycin with bicarbonate for severe acidosis. A right femoral central line, midline and peripheral IVs were also placed. Of note, patient has a history of poor adherence to his insulin therapy. Per patient's father, patient lives alone in a trailer and had not been heard from since 01/02/2025. Patient was last hospitalized at the [facility] in November 2024 for DKA. On 01/07/2025, patient developed lip swelling while still intubated, chart review revealed a penicillin allergy. Zosyn was discontinued and patient was treated with methylprednisolone and transitioned to meropenem. Nephrology was consulted for RADHA and hypernatremia. A 01/10/2025, patient had begun to improve and was weaned off sedation and was extubated on 01/12/2025 and transferred telemetry. Antibiotics were discontinued at that time due to uncertainty about the cause of leukocytosis (steroids versus infection). However, WBCs continued to trend upwards and the patient developed low-grade fevers, subsequently restarted on linezolid and aztreonam. Patient has bilateral diabetic foot ulcers, left side more advanced than right. MRI of bilateral extremities shows mild subcutaneous edema, possibly cellulitis but no signs of osteomyelitis. Patient was also noted to have a pressure related ulcer to the left heel. Lower extremity arterial Doppler showed no significant stenosis. Vascular surgery evaluated the ulcers but recommended no interventions at this time. Podiatry already on board. 01/20/2025: Held insulin Lantus, discontinued lispro, mild sliding scale q.4 hours only. Started IV fluconazole for candidal infection in the groin. Podiatry reconsulted for evaluation of bilateral lower extremity ulcers. GI consult for anemia and positive stool occult blood. Discontinued linezolid and aztreonam, started on cefepime, vancomycin and metronidazole. 01/21/25: notes improved but continued nausea, new onset abdominal pain 9-05/02, localized to mid abdomen. Patient refused MRI owing to abdominal pain, we will reattempt tomorrow. Added metoclopramide qD along with norco and morphine as needed. Blood glucose in 290s, resumed lantus 7units qAM, however, dropping blood sugar by 4pm therefore discontinued lantus again. Pt refuses to eat and has severe aversion to food 01/22/25: improved abdominal pain today 6-01/30, agreeable to CT abdomen however still refusing MRI L foot. Plan to reattempt tomorrow. new moderate R sided hydronephrosis noted, urology consulted. denies dyspnea, sob. improving nausea. 01/23/2025: Patient notes feeling weaker than yesterday, denies abdominal pain. On physical exam decreased breath sounds more prominent on the left side and some crackles bibasilar. Discontinued vancomycin and started patient on daptomycin. Repeated left foot MRI which showed cellulitis in the lateral 4 for deep to the 5th metatarsal bone marrow wound is noted with overlying dressing, no evidence of osteomyelitis. IV furosemide was increased to 40 mg b.i.d. and patient was transferred to D . 01/24/2025: Overnight patient was intubated due to increasing respiratory distress, patient also underwent thoracentesis with 900 mL of fluid removed on the left side. For starvation/diabetic ketoacidosis, patient was started on an insulin drip and D10, gap was closed and bicarb was stabilized at 20. Blood glucose was 100 with a insulin drip was stopped, patient was started on D5 water at 50 cc/hours. Nephrology increased IV Lasix to 80 mg b.i.d. along with plan for renal replacement therapy tentatively in the p.m.. 01/25/2025- patient received right IJ Dean cath HD cath yesterday. Dialysis done 1 L removed. Today patient continues to have right upper extremity edema 2+. Left upper extremity is restricted has trace pitting edema and restricted due to history of DVT. Patient also has 1 to trace pedal edema bilaterally. Up to mid shins. Patient is not requiring any vasopressors. Patient is ventilated and due to acute hypoxic respiratory failure. Patient has no p.o. intake due to large gastric bubble and possible gastroparesis from prolonged uncontrolled diabetes. We will do TPN via PICC line now and hold off any enteral feeds. Continue IV antibiotics. Patient is anemic less than 7, 1 unit PRBC. Tentative plan to get EPO with HD, which may help. No sources of obvious hemorrhage. We are continuing D5 W for hypernatremia. We will do some education vacation today and if goes well possible CPAP trials tomorrow. We will continue sliding scale insulin Q 2. Patient antibiotics IV is linezolid only. 01/26/2025-no dialysis today. No lower extremity edema. Right upper extremity edema looks improved. Today doing sedation vacation and CPAP trial. Some electrolyte abnormalities not concerning nephrology reviewed. Patient on dialysis but still makes some urine 150 dark brown color. Patient is getting broad-spectrum antibiotics. Clinimix. Sedation vacation but otherwise patient was on Versed and fentanyl. Heart rate upper end of normal in the 100s. Blood pressure stable. No vasopressors. We will decrease Accu-Cheks to q.4. Decrease D5 to 30, being used for recurrent hypoglycemia. Otherwise continue primary team's plan. 01/27/2025: Patient seen and examined at bedside. Noted to have fluid overload, severe scrotal swelling, 2+ lower extremity nonpitting edema up to the thighs along with scleral edema was noted. Urine output of 325 mL in the past 24 hours. Undergoing dialysis today. Had an apneic episode during CPAP trial on 01/26/2025. 01/28/2025: Patient seen and examined at bedside. Minimal improvement in edema, s/p dialysis yesterday on 01/27/2025. Continues to have nonpitting edema up to knees along with scleral and scrotal edema. Jaundiced appearance noted. 01/29/25: Patient seen and examined at bedside. improved UOP since yesterday, worsening inspiratory crackles and LE edema. completed dialysis today, required 4mcg/hr of norepinephrine during dialysis. noted to have scabbed lesions on the penis. Objective vital signs Vital Sign Date Time Temp Pulse Resp B/P (MAP) Pulse Ox O2 Delivery O2 Flow Rate FiO2 01/29/25 19:45 103 18 109/61 (77) 95 01/29/25 18:00 30 01/29/25 18:00 Mechanical Ventilator+ 01/29/25 16:00 98.0 98.0 01/29/25 10:00 2 Total Intake and Output 01/28/25 01/28/25 01/29/25 15:00 23:00 07:00 Intake Total 1038.763 ml 457.753 ml 651.0 ml Output Total 500 ml 250 ml Balance 1038.763 ml -42.247 ml 401.0 ml medications Current Medications Medications Dose Ordered Sig/Zaria Route Start Time Stop Time Status Last Admin Dose Admin Famotidine 20 mg Q12HR IV 01/07/25 10:00 UNV Diagnostic Test (Pha) 1 strip IQ4HR 01/07/25 08:00 Cancel Calcium Gluconate/ Sodium Chloride 50 ml @ 100 mls/hr Q30M IV 01/08/25 17:30 01/08/25 18:29 Cancel Pantoprazole Sodium 40 mg BID IV 01/10/25 10:00 01/29/25 12:20 40 MG Metoclopramide HCl 10 mg Q8HPRN PRN IV 01/21/25 16:30 Midazolam HCl 50 ml @ 1 mls/hr Q24H IV 01/24/25 04:00 01/29/25 18:35 8 MLS/HR Fentanyl Citrate 250 ml @ 2.5 mls/hr Q24H IV 01/24/25 04:00 01/29/25 06:36 12.5 MLS/HR Norepinephrine Bitartrate 250 ml @ 3.75 mls/hr Q24H IV 01/24/25 04:30 01/29/25 09:52 3.75 MLS/HR Sodium Chloride 10 ml QSHIFT@10,22 IV 01/24/25 22:00 01/29/25 12:20 10 ML Linezolid 300 ml @ 150 mls/hr Q12HR IV 01/24/25 22:00 01/29/25 12:20 150 MLS/HR Nystatin 1 applic BID TOP 01/24/25 22:00 01/29/25 12:37 1 APPLIC Dextrose 50 ml UD IV 01/25/25 13:15 Diagnostic Test (Pha) 1 strip Q4HR 01/26/25 14:00 UNV Diagnostic Test (Pha) 1 strip Q4HR 01/26/25 18:00 01/29/25 17:30 1 STRIP Insulin Human Regular FOLLOW SLIDING SCALE Q4HR SC 01/26/25 18:00 01/29/25 14:43 4 UNITS Metronidazole 100 ml @ 100 mls/hr Q8HR IV 01/27/25 22:00 01/29/25 14:42 100 MLS/HR Furosemide 40 mg BID IV 01/28/25 22:00 01/29/25 12:20 40 MG Enteral Nutritional Formula 1,000 ml 20ML/HR GT 01/28/25 16:45 Amino Acid Protein 30 ml TIDWM PO 01/28/25 18:00 01/29/25 18:35 30 ML laboratory and microbiology Laboratory Tests 01/29/25 04:45 Test 01/29/25 04:45 Range/Units Serum Glucose 136 H 74-106 mg/dL Microbiology Date/Time Source Procedure Growth Status 01/26/25 08:46 Urine - Jones Port Urine Culture - Final Complete 01/24/25 04:15 Sputum Gram Stain - Final Complete 01/24/25 04:15 Sputum Respiratory Culture - Final Complete 01/23/25 20:30 Pleural Fluid Gram Stain - Final Complete 01/23/25 20:30 Pleural Fluid Body Fluid Culture - Final Complete 01/19/25 16:06 Nose MRSA Screen - Final Complete 01/16/25 19:00 Blood Blood Culture - Final NO GROWTH AFTER 5 DAYS OF INCUBATION. Complete 01/08/25 10:37 Stool Stool Culture - Final Complete 01/08/25 10:37 Stool Shiga Toxin I & II - Final Complete Labs and/or images reviewed: Labs reviewed by me, Image(s) reviewed by me Problem List/Assessment/Plan Problem List/Assessment/Plan Neurology # acute metabolic encephalopathy likely due to DKA vs Sepsis, improving - head CT from 01/07/2025: No acute territorial infarct, intracranial hemorrhage or mass effect - head CT from 01/19/2025: No acute intracranial abnormality - monitor Cardiovascular # runs of AFib on EKG # prolonged QTC # Essential hypertension - avoiding QT prolonging drugs - echocardiogram from 07/20/2022: Overall preserved ventricular systolic function. EF 60%. Grade 1 diastolic dysfunction. - increased amlodipine to 10mg qD - repeat echo: Mild LVH and mild LV diastolic dysfunction. LVEF 65%. Slightly dilated left atrium. Moderately dilated RV and RA. Moderate degree pulmonary hypertension. Normal valves and no effusion. - monitor Respiratory # Community acquired pneumonia, Gram-positive versus Gram-negative # Acute hypoxic respiratory failure due to above, intubated and mechanically ventilated # moderate-large b/l Pleural effusions # moderate pulmonary hypertension with RVSP 46 mmHg - CXR 01/08/25: Bibasilar atelectasis or pneumonia. - CXR 01/20/25: Patchy bilateral airspace disease, [id number], slightly increased - previously on meropenem and vancomycin, stopped on 01/12/2025 - started on aztreonam on 01/17/2025, linezolid 01/16/2025 - discontinued aztreonam and linezolid on 01/20/2025 - started cefepime, vancomycin and metronidazole on 01/20/2025 - discontinued vancomycin 01/23/2025 - s/p thoracentesis with 900 mL of fluid removed on 01/23/2025 Ventilator: AC/VC Tidal volume 450 Respiratory rate 18 Peep 8 FiO2 35% GI # Acute intractable abdominal pain (01/21/25), improved # Microcytic anemia possibly 2' to ?LGI bleed; Hb 7.8 # Moderate abdominopelvic ascites # Peptic ulcer prophylaxis # gallbladder hydrops # isolated rise in alkaline phosphatase likely from cholestasis? - stool occult blood positive - GI consult - CT abdomen pelvis from 01/07/2025: Nonspecific periportal edema. Incidental finding. -Pantoprazole 40 mg IV daily - serum lipase 113 - repeat CT abdomen pelvis (01/22/25): Moderate to large bilateral pleural effusions with patchy and consolidative infiltrates in the lung bases likely a combination of pneumonia and atelectasis.mLow to moderate volume abdominopelvic ascites and diffuse subcutaneous edema suggestive of anasarca. Moderate right hydronephrosis without visualization of hydroureter or obstructing calculi. This appearance is new versus CT scan dated 01/07/2025. Gallbladder hydrops without visualization of gallstones. This appearance may indicate acalculous cholecystitis. Fluid-filled colon with multiple air-fluid levels present, possibly related to diarrheal illness. No evidence of bowel obstruction, acute appendicitis, or other acute process in the abdomen or pelvis. 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 Moderate right hydronephrosis without visualization of hydroureter or obstructing calculi. This appearance is new versus CT scan dated 01/07/2025. Gallbladder hydrops without visualization of gallstones. This appearance may indicate acalculous cholecystitis. Fluid- filled colon with multiple air-fluid levels present, possibly related to diarrheal illness. No evidence of bowel obstruction, acute appendicitis, or other acute process in the abdomen or pelvis. - urology consulted - reconsulted nephrology - serum parathyroid hormone 185.9, corrected calcium 8.7 Infectious disease # bilateral lower extremity cellulitis # left lower extremity diabetic foot ulcer on the plantar aspect growing Staph aureus # Sepsis due to above # left heel pressure ulcer # ruled out DVT # Fungal cutaneous infection in b/l groin - MRI from 01/09/2025 shows Mild diffuse subcutaneous soft-tissue edema; possibly cellulitis. No bone marrow edema is present to suggest fracture or acute osteomyelitis. - bilateral lower extremity arterial Doppler: No hemodynamically significant stenosis based on peak systolic velocity criteria. - bilateral lower extremity venous Doppler: No right or left femoropopliteal venous thrombosis - discontinued aztreonam and linezolid on 01/20/2025 - started cefepime, vancomycin and metronidazole on 01/20/2025 - podiatry on board - left foot MRI: No MR evidence of osteomyelitis. Cellulitis and lateral 4 for deep of the 5th metatarsal bone were wound is noted overlying dressing. Edema in the intrinsic muscle of the foot may reflect sequelae of denervation, or myositis. - discontinued vancomycin 01/23/2025, started patient on daptomycin on 01/23/2025 - discontinued daptomycin, vancomycin and cefepime on 01/24/2025 - started linezolid on 01/24/2025 - topical nystatin Hem/onc # microcytic anemia # thrombocytosis likely secondary to sepsis - s/p 2 PRBC - GI on board - monitor Endocrine # DKA, now resolved # recurrent episodes of hypoglycemia # severe protein calorie malnutrition # diabetic/starvation ketoacidosis, improved - discontinued lispro - holding insulin Lantus as patient continues to get hypoglycemic - mild sliding scale insulin - D5 water at 50 cc/hour - Accu-Cheks every 90 minutes while on insulin drip - insulin drip at 1 unit/hour Diet Nepro carb steady with ProStat tube feedings Lines - right PICC line paced on 01/24/2025 - right-sided Dean catheter placed on 01/24/2025 - Jones catheter exchanged on 01/26/2025 Drips Precedex at 0.4 mcg Off of Levophed as of 01/24/2025; briefly required 4cmg/hr during dialysis today on 01/29/25 Transeferred to OXANA 01/23/25 critical care time excluding procedures was 56 mins Code status discussed greater than 20 minutes: Full CODE STATUS. Plan discussed with Dr. Dan Plan discussed with: Other (RN) My Orders My Orders Orders - ANABELL ORDOÑEZ RESIDENT Procedure Category Date Status Time Abg W/ Co-Ox RT 01/29/25 Logged 05:52 Comprehensive LAB 01/30/25 Verified Metabolic Panel 04:00 Complete Blood Count LAB 01/30/25 Verified 04:00 Dietary Evaluation Review Recommendations by RD: Increase Calorie Intake Comments: Nutrition Recommendation: 1) Vital AF 1.2Cal @ 25ml/hr along with Pro-stat 1 pk BID. start @ 20ml/hr, increase 10ml/hr Q4H until goal is reached. TF @ goal volume along with propofol, IV D5wNS0.45%, and Pro-stat provides 1684 kcal (100% energy needs), 75gm protein (100% protein needs), 487ml free water. 2) TPN to meet 75% estimated needs if remains NPO 3) Bryce 1 pk BID for DFU Expected Outcomes/Goals: DFU to improve To maintain/gain weight To meet at least 75% estimated needs Fu 2-3 days Interpretation of weight loss: up to 5% in 1 month Muscle Mass (Severe): Mod to Severe Depletion Protein Calorie Malnutrition: Non-Severe Is there a minimum of two crit: Yes Date of Service: Jan 29, 2025 Billing Provider: AMY DAN MD Common Visit Codes: 62938-[id number] CARE 30-74 MIN ANABELL ORDOÑEZ Jan 29, 2025 20:05 AMY DAN MD Jan 30, 2025 12:59
[2025-01-29] MEDS: EPOETIN ALFA-EPBX 10,000 UNIT/1ML VIAL SC ONE (21:09)
[2025-01-30] VITALS (101 sets, daily range): BP systolic 90–122; BP diastolic 38–61; PULSE 100–117; RESP 15–21; TEMP 97.1–99.2; O2SAT 90–100
[2025-01-30 05:13] LABS: Hemoglobin 8.0 g/dL (13.5-17.5)
[2025-01-30 05:15] LABS: Hematocrit 24.6 % (41.0-53.0); Mean Corpuscular Hemoglobin 25.5 pg (28.0-32.0); Mean Corpuscular Volume 78.4 fL (80.0-100.0)
[2025-01-30 05:31] LABS: Alanine Aminotransferase 16 U/L (7-40); Anion Gap 10 (5-15); BUN/Creatinine Ratio 9.8 (10.0-20.0); Blood Urea Nitrogen 22 mg/dL (9-23); Carbon Dioxide 25 mmol/L (20-31); Chloride 100 mmol/L (98-107)
[2025-01-30 05:32] LABS: Albumin 2.3 g/dL (3.2-4.8); Bilirubin, Total 3.6 mg/dL (0.2-1.0); Calcium 7.5 mg/dL (8.7-10.4); Glucose 199 mg/dL (74-106); Potassium 3.4 mmol/L (3.5-5.1); Sodium 135 mmol/L (136-145); Total Protein 4.8 g/dL (5.7-8.2)
--- NOTE | 2025-01-30 05:53 | DVH ---
CHEST RADIOGRAPH Indication: worsening wheezes Technique: Single frontal view of the chest was obtained COMPARISON: XY CHEST PORTABLE on DOS: 01/29/25, XY CHEST PORTABLE on DOS: 01/28/25, XY CHEST PORTABLE on DOS: 01/27/25, XY CHEST PORTABLE on DOS: 01/26/25, XY CHEST PORTABLE on DOS: 01/25/25 FINDINGS: Lines and Tubes: Endotracheal tube, enteric catheter, right central venous catheter and right PICC in satisfactory position. Lungs: Multifocal airspace disease Pleura: No effusion. No pneumothorax. Cardiomediastinal contours: Unremarkable Bones: Unremarkable IMPRESSION: Lines and tubes in satisfactory position. No significant interval change.
[2025-01-30 05:58] LABS: Alkaline Phosphatase > 2300 U/L (46-116)
[2025-01-30 06:28] LABS: Total Cells Counted 100.0 (100)
[2025-01-30 06:54] LABS: Base Excess -3.1 mmol/L (-2.0-3.0)
[2025-01-30] MEDS: InsuLIN REG 1unit/0.01ml Soln (100units/ml) SC SCH (11:10)
--- NOTE | 2025-01-30 12:37 | DVHPN2 ---
Progress Note Date Seen: Jan 30, 2025 Medical Necessity Reason Pt with a Central, PICC or Fol: No The following are medically ne: Jones Catheter Reason for jones catheter: Strict I&O Subjective Patient reports: Other (parents bedside ) Review of Systems: Deferred Objective vital signs Vital Sign Date Time Temp Pulse Resp B/P (MAP) Pulse Ox O2 Delivery O2 Flow Rate FiO2 01/30/25 11:04 117/51 01/30/25 10:13 112 19 99 30 01/30/25 06:00 Mechanical Ventilator+ 01/30/25 04:00 99.2 99.2 01/29/25 20:00 2 Total Intake and Output 01/29/25 01/29/25 01/30/25 15:00 23:00 07:00 Intake Total 974.315 ml 764 ml 814 ml Output Total 200 ml 650 ml 250 ml Balance 774.315 ml 114 ml 564 ml medications Current Medications Medications Dose Ordered Sig/Zaria Route Start Time Stop Time Status Last Admin Dose Admin Famotidine 20 mg Q12HR IV 01/07/25 10:00 UNV Diagnostic Test (Pha) 1 strip IQ4HR 01/07/25 08:00 Cancel Calcium Gluconate/ Sodium Chloride 50 ml @ 100 mls/hr Q30M IV 01/08/25 17:30 01/08/25 18:29 Cancel Pantoprazole Sodium 40 mg BID IV 01/10/25 10:00 01/30/25 10:38 40 MG Metoclopramide HCl 10 mg Q8HPRN PRN IV 01/21/25 16:30 Midazolam HCl 50 ml @ 1 mls/hr Q24H IV 01/24/25 04:00 01/30/25 06:27 8 MLS/HR Fentanyl Citrate 250 ml @ 2.5 mls/hr Q24H IV 01/24/25 04:00 01/29/25 06:36 12.5 MLS/HR Norepinephrine Bitartrate 250 ml @ 3.75 mls/hr Q24H IV 01/24/25 04:30 01/29/25 09:52 3.75 MLS/HR Sodium Chloride 10 ml QSHIFT@10,22 IV 01/24/25 22:00 01/30/25 10:38 10 ML Linezolid 300 ml @ 150 mls/hr Q12HR IV 01/24/25 22:00 01/30/25 10:34 150 MLS/HR Nystatin 1 applic BID TOP 01/24/25 22:00 01/30/25 11:14 1 APPLIC Dextrose 50 ml UD IV 01/25/25 13:15 Diagnostic Test (Pha) 1 strip Q4HR 01/26/25 14:00 UNV Diagnostic Test (Pha) 1 strip Q4HR 01/26/25 18:00 01/30/25 11:06 1 STRIP Metronidazole 100 ml @ 100 mls/hr Q8HR IV 01/27/25 22:00 01/30/25 06:04 100 MLS/HR Furosemide 40 mg BID IV 01/28/25 22:00 01/30/25 11:04 40 MG Amino Acid Protein 30 ml TIDWM PO 01/28/25 18:00 01/30/25 08:30 30 ML Enteral Nutritional Formula 1,000 ml 30ML/HR GT 01/29/25 18:15 Insulin Human Regular IQ4HR SC 01/30/25 12:00 Examination: GENERAL:Abnormal, HEENT:Abnormal, MSK:Abnormal (edema), NEURO:Abnormal laboratory and microbiology Laboratory Tests 01/30/25 04:42 Test 01/30/25 04:42 Range/Units Serum Glucose 199 H 74-106 mg/dL Microbiology Date/Time Source Procedure Growth Status 01/26/25 08:46 Urine - Jones Port Urine Culture - Final Complete 01/24/25 04:15 Sputum Gram Stain - Final Complete 01/24/25 04:15 Sputum Respiratory Culture - Final Complete 01/23/25 20:30 Pleural Fluid Gram Stain - Final Complete 01/23/25 20:30 Pleural Fluid Body Fluid Culture - Final Complete 01/19/25 16:06 Nose MRSA Screen - Final Complete 01/16/25 19:00 Blood Blood Culture - Final NO GROWTH AFTER 5 DAYS OF INCUBATION. Complete 01/08/25 10:37 Stool Stool Culture - Final Complete 01/08/25 10:37 Stool Shiga Toxin I & II - Final Complete Problem List/Assessment/Plan Problem List/Assessment/Plan Acute kidney injury superimposed Chronic Kidney Disease stage IIIB secondary hemodynamic mediated ATN, FeNa > 2% - needing dialysis Acute hypoxic respiratory failure, patient extubated and then reintubated Hypernatremia due to dehydration Hypocalcemia Hypomagnesemia Hypokalemia Anemia of chronic kidney disease Recommendations Hemodialysis 01/30 Continue diuretics--increase dose continue HD as uop less on diuretics d/w parents Plan discussed with: Other My Orders My Orders Orders - VIDHYA NEVES MD Procedure Category Date Status Time Potassium Chl PHA 01/30/25 In Process 20meq/100ml 12:15 Dietary Evaluation Review Recommendations by RD: Increase Calorie Intake Comments: Nutrition Recommendation: 1) Vital AF 1.2Cal @ 25ml/hr along with Pro-stat 1 pk BID. start @ 20ml/hr, increase 10ml/hr Q4H until goal is reached. TF @ goal volume along with propofol, IV D5wNS0.45%, and Pro-stat provides 1684 kcal (100% energy needs), 75gm protein (100% protein needs), 487ml free water. 2) TPN to meet 75% estimated needs if remains NPO 3) Bryce 1 pk BID for DFU Expected Outcomes/Goals: DFU to improve To maintain/gain weight To meet at least 75% estimated needs Fu 2-3 days Interpretation of weight loss: up to 5% in 1 month Muscle Mass (Severe): Mod to Severe Depletion Protein Calorie Malnutrition: Non-Severe Is there a minimum of two crit: Yes VIDHYA NEVES MD Jan 30, 2025 12:37
[2025-01-30] MEDS: POTASSIUM CHL 20MEQ/100ML 100 ML IV ONE (13:03)
[2025-01-30] MEDS: METOCLOPRAMIDE HCL 5MG/ml INJ 2ml VIAL IV SCH (15:50)
[2025-01-30] MEDS: ACCU-CHEK COMFORT CURVE STRIP VI SCH (15:56)
--- NOTE | 2025-01-30 18:29 | DVHPNRES ---
Progress Note Date Seen: Jan 30, 2025 Resident Creating Document: ANABELL ORDOÑEZ RESIDENT Medical Necessity Reason Pt with a Central, PICC or Fol: No The following are medically ne: Jones Catheter Reason for jones catheter: Strict I&O Subjective Review of Systems Patient is a 44-year-old male with known history of type 1 diabetes mellitus who presented on 01/06/2025 via EMS for altered level of consciousness. Per EMS, the patient was found unresponsive with a blood glucose of 931 and received 400 cc IV fluids on route. On arrival he exhibited hypoxia, generalized weakness, increased work of breathing necessitating intubation and mechanical ventilation. Patient was started on IV insulin drip, Zosyn and vancomycin with bicarbonate for severe acidosis. A right femoral central line, midline and peripheral IVs were also placed. Of note, patient has a history of poor adherence to his insulin therapy. Per patient's father, patient lives alone in a trailer and had not been heard from since 01/02/2025. Patient was last hospitalized at the [facility] in November 2024 for DKA. On 01/07/2025, patient developed lip swelling while still intubated, chart review revealed a penicillin allergy. Zosyn was discontinued and patient was treated with methylprednisolone and transitioned to meropenem. Nephrology was consulted for RADHA and hypernatremia. A 01/10/2025, patient had begun to improve and was weaned off sedation and was extubated on 01/12/2025 and transferred telemetry. Antibiotics were discontinued at that time due to uncertainty about the cause of leukocytosis (steroids versus infection). However, WBCs continued to trend upwards and the patient developed low-grade fevers, subsequently restarted on linezolid and aztreonam. Patient has bilateral diabetic foot ulcers, left side more advanced than right. MRI of bilateral extremities shows mild subcutaneous edema, possibly cellulitis but no signs of osteomyelitis. Patient was also noted to have a pressure related ulcer to the left heel. Lower extremity arterial Doppler showed no significant stenosis. Vascular surgery evaluated the ulcers but recommended no interventions at this time. Podiatry already on board. 01/20/2025: Held insulin Lantus, discontinued lispro, mild sliding scale q.4 hours only. Started IV fluconazole for candidal infection in the groin. Podiatry reconsulted for evaluation of bilateral lower extremity ulcers. GI consult for anemia and positive stool occult blood. Discontinued linezolid and aztreonam, started on cefepime, vancomycin and metronidazole. 01/21/25: notes improved but continued nausea, new onset abdominal pain 9-05/02, localized to mid abdomen. Patient refused MRI owing to abdominal pain, we will reattempt tomorrow. Added metoclopramide qD along with norco and morphine as needed. Blood glucose in 290s, resumed lantus 7units qAM, however, dropping blood sugar by 4pm therefore discontinued lantus again. Pt refuses to eat and has severe aversion to food 01/22/25: improved abdominal pain today 6-01/30, agreeable to CT abdomen however still refusing MRI L foot. Plan to reattempt tomorrow. new moderate R sided hydronephrosis noted, urology consulted. denies dyspnea, sob. improving nausea. 01/23/2025: Patient notes feeling weaker than yesterday, denies abdominal pain. On physical exam decreased breath sounds more prominent on the left side and some crackles bibasilar. Discontinued vancomycin and started patient on daptomycin. Repeated left foot MRI which showed cellulitis in the lateral 4 for deep to the 5th metatarsal bone marrow wound is noted with overlying dressing, no evidence of osteomyelitis. IV furosemide was increased to 40 mg b.i.d. and patient was transferred to D . 01/24/2025: Overnight patient was intubated due to increasing respiratory distress, patient also underwent thoracentesis with 900 mL of fluid removed on the left side. For starvation/diabetic ketoacidosis, patient was started on an insulin drip and D10, gap was closed and bicarb was stabilized at 20. Blood glucose was 100 with a insulin drip was stopped, patient was started on D5 water at 50 cc/hours. Nephrology increased IV Lasix to 80 mg b.i.d. along with plan for renal replacement therapy tentatively in the p.m.. 01/25/2025- patient received right IJ Dean cath HD cath yesterday. Dialysis done 1 L removed. Today patient continues to have right upper extremity edema 2+. Left upper extremity is restricted has trace pitting edema and restricted due to history of DVT. Patient also has 1 to trace pedal edema bilaterally. Up to mid shins. Patient is not requiring any vasopressors. Patient is ventilated and due to acute hypoxic respiratory failure. Patient has no p.o. intake due to large gastric bubble and possible gastroparesis from prolonged uncontrolled diabetes. We will do TPN via PICC line now and hold off any enteral feeds. Continue IV antibiotics. Patient is anemic less than 7, 1 unit PRBC. Tentative plan to get EPO with HD, which may help. No sources of obvious hemorrhage. We are continuing D5 W for hypernatremia. We will do some education vacation today and if goes well possible CPAP trials tomorrow. We will continue sliding scale insulin Q 2. Patient antibiotics IV is linezolid only. 01/26/2025-no dialysis today. No lower extremity edema. Right upper extremity edema looks improved. Today doing sedation vacation and CPAP trial. Some electrolyte abnormalities not concerning nephrology reviewed. Patient on dialysis but still makes some urine 150 dark brown color. Patient is getting broad-spectrum antibiotics. Clinimix. Sedation vacation but otherwise patient was on Versed and fentanyl. Heart rate upper end of normal in the 100s. Blood pressure stable. No vasopressors. We will decrease Accu-Cheks to q.4. Decrease D5 to 30, being used for recurrent hypoglycemia. Otherwise continue primary team's plan. 01/27/2025: Patient seen and examined at bedside. Noted to have fluid overload, severe scrotal swelling, 2+ lower extremity nonpitting edema up to the thighs along with scleral edema was noted. Urine output of 325 mL in the past 24 hours. Undergoing dialysis today. Had an apneic episode during CPAP trial on 01/26/2025. 01/28/2025: Patient seen and examined at bedside. Minimal improvement in edema, s/p dialysis yesterday on 01/27/2025. Continues to have nonpitting edema up to knees along with scleral and scrotal edema. Jaundiced appearance noted. 01/29/25: Patient seen and examined at bedside. improved UOP since yesterday, worsening inspiratory crackles and LE edema. completed dialysis today, required 4mcg/hr of norepinephrine during dialysis. noted to have scabbed lesions on the penis. 01/30/2025: Patient seen and examined at bedside, improved lower extremity edema. Detailed discussions held with patient's parents at bedside. Objective vital signs Vital Sign Date Time Temp Pulse Resp B/P (MAP) Pulse Ox O2 Delivery O2 Flow Rate FiO2 01/30/25 16:19 113 18 111/56 (74) 33 30 01/30/25 16:00 Mechanical Ventilator+ 01/30/25 04:00 99.2 99.2 01/29/25 20:00 2 Total Intake and Output 01/29/25 01/29/25 01/30/25 15:00 23:00 07:00 Intake Total 974.315 ml 764 ml 814 ml Output Total 200 ml 650 ml 250 ml Balance 774.315 ml 114 ml 564 ml medications Current Medications Medications Dose Ordered Sig/Zaria Route Start Time Stop Time Status Last Admin Dose Admin Famotidine 20 mg Q12HR IV 01/07/25 10:00 UNV Diagnostic Test (Pha) 1 strip IQ4HR 01/07/25 08:00 Cancel Calcium Gluconate/ Sodium Chloride 50 ml @ 100 mls/hr Q30M IV 01/08/25 17:30 01/08/25 18:29 Cancel Pantoprazole Sodium 40 mg BID IV 01/10/25 10:00 01/30/25 10:38 40 MG Midazolam HCl 50 ml @ 1 mls/hr Q24H IV 01/24/25 04:00 01/30/25 12:59 8 MLS/HR Fentanyl Citrate 250 ml @ 2.5 mls/hr Q24H IV 01/24/25 04:00 01/30/25 15:40 15 MLS/HR Norepinephrine Bitartrate 250 ml @ 3.75 mls/hr Q24H IV 01/24/25 04:30 01/29/25 09:52 3.75 MLS/HR Sodium Chloride 10 ml QSHIFT@10,22 IV 01/24/25 22:00 01/30/25 10:38 10 ML Linezolid 300 ml @ 150 mls/hr Q12HR IV 01/24/25 22:00 01/30/25 10:34 150 MLS/HR Nystatin 1 applic BID TOP 01/24/25 22:00 01/30/25 11:14 1 APPLIC Dextrose 50 ml UD IV 01/25/25 13:15 Diagnostic Test (Pha) 1 strip Q4HR 01/26/25 14:00 UNV Metronidazole 100 ml @ 100 mls/hr Q8HR IV 01/27/25 22:00 01/30/25 13:52 100 MLS/HR Furosemide 40 mg BID IV 01/28/25 22:00 01/30/25 11:04 40 MG Amino Acid Protein 30 ml TIDWM PO 01/28/25 18:00 01/30/25 13:03 30 ML Enteral Nutritional Formula 1,000 ml 30ML/HR GT 01/29/25 18:15 Insulin Human Regular IQ4HR SC 01/30/25 12:00 01/30/25 15:55 4 UNITS Metoclopramide HCl 5 mg Q8HR IV 01/30/25 14:00 01/30/25 15:50 5 MG Diagnostic Test (Pha) 1 strip Q4H 01/30/25 16:00 01/30/25 15:56 1 STRIP Examination General Appearance: Intubated and sedated. Malnourished, in mild distress. Jaundiced Head Exam: Normal inspection. No vision in right eye, decreased vision in left eye, minimally reactive pupils. Scleral edema Pulmonary/Respiratory: Chest non-tender. decreased bilateral breath sounds, no crackles, no wheezing. Cardiovascular/Chest: Tachycardic. No murmurs. No JVD. Abdominal Exam: Normal bowel sounds. Soft. normal abdomen, no visible veins, nontender No hepatospenomegaly. No masses Lower extremities: 2+ nonpitting lower extremity edema up to the thighs. Left heel pressure ulcer noted. Multiple diabetic foot ulcers on bilateral feet, largest 1 noted on left plantar foot with a dark black necrotic appearance Thoughts/Psych: Normal thought pattern. Appropriate mood and affect Skin Exam: improving groin lesions, redness noted along right gluteal area, scrotal swelling. laboratory and microbiology Laboratory Tests 01/30/25 04:42 Test 01/30/25 04:42 Range/Units Serum Glucose 199 H 74-106 mg/dL Microbiology Date/Time Source Procedure Growth Status 01/26/25 08:46 Urine - Jones Port Urine Culture - Final Complete 01/24/25 04:15 Sputum Gram Stain - Final Complete 01/24/25 04:15 Sputum Respiratory Culture - Final Complete 01/23/25 20:30 Pleural Fluid Gram Stain - Final Complete 01/23/25 20:30 Pleural Fluid Body Fluid Culture - Final Complete 01/19/25 16:06 Nose MRSA Screen - Final Complete 01/16/25 19:00 Blood Blood Culture - Final NO GROWTH AFTER 5 DAYS OF INCUBATION. Complete 01/08/25 10:37 Stool Stool Culture - Final Complete 01/08/25 10:37 Stool Shiga Toxin I & II - Final Complete Labs and/or images reviewed: Labs reviewed by me, Image(s) reviewed by me Problem List/Assessment/Plan Problem List/Assessment/Plan Neurology # acute metabolic encephalopathy likely due to DKA vs Sepsis, improving - head CT from 01/07/2025: No acute territorial infarct, intracranial hemorrhage or mass effect - head CT from 01/19/2025: No acute intracranial abnormality - monitor Cardiovascular # runs of AFib on EKG # prolonged QTC # Essential hypertension - avoiding QT prolonging drugs - echocardiogram from 07/20/2022: Overall preserved ventricular systolic function. EF 60%. Grade 1 diastolic dysfunction. - increased amlodipine to 10mg qD - repeat echo: Mild LVH and mild LV diastolic dysfunction. LVEF 65%. Slightly dilated left atrium. Moderately dilated RV and RA. Moderate degree pulmonary hypertension. Normal valves and no effusion. - monitor Respiratory # Community acquired pneumonia, Gram-positive versus Gram-negative # Acute hypoxic respiratory failure due to above, intubated and mechanically ventilated # moderate-large b/l Pleural effusions # moderate pulmonary hypertension with RVSP 46 mmHg - CXR 01/08/25: Bibasilar atelectasis or pneumonia. - CXR 01/20/25: Patchy bilateral airspace disease, [id number], slightly increased - previously on meropenem and vancomycin, stopped on 01/12/2025 - started on aztreonam on 01/17/2025, linezolid 01/16/2025 - discontinued aztreonam and linezolid on 01/20/2025 - started cefepime, vancomycin and metronidazole on 01/20/2025 - discontinued vancomycin 01/23/2025 - s/p thoracentesis with 900 mL of fluid removed on 01/23/2025 Ventilator: AC/VC Tidal volume 450 Respiratory rate 18 Peep 8 FiO2 35% GI # Acute intractable abdominal pain (01/21/25), improved # Microcytic anemia possibly 2' to ?LGI bleed; Hb 7.8 # Moderate abdominopelvic ascites # Peptic ulcer prophylaxis # gallbladder hydrops # isolated rise in alkaline phosphatase likely from cholestasis? - stool occult blood positive - GI consult - CT abdomen pelvis from 01/07/2025: Nonspecific periportal edema. Incidental finding. -Pantoprazole 40 mg IV daily - serum lipase 113 - repeat CT abdomen pelvis (01/22/25): Moderate to large bilateral pleural effusions with patchy and consolidative infiltrates in the lung bases likely a combination of pneumonia and atelectasis.mLow to moderate volume abdominopelvic ascites and diffuse subcutaneous edema suggestive of anasarca. Moderate right hydronephrosis without visualization of hydroureter or obstructing calculi. This appearance is new versus CT scan dated 01/07/2025. Gallbladder hydrops without visualization of gallstones. This appearance may indicate acalculous cholecystitis. Fluid-filled colon with multiple air-fluid levels present, possibly related to diarrheal illness. No evidence of bowel obstruction, acute appendicitis, or other acute process in the abdomen or pelvis. 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 Moderate right hydronephrosis without visualization of hydroureter or obstructing calculi. This appearance is new versus CT scan dated 01/07/2025. Gallbladder hydrops without visualization of gallstones. This appearance may indicate acalculous cholecystitis. Fluid- filled colon with multiple air-fluid levels present, possibly related to diarrheal illness. No evidence of bowel obstruction, acute appendicitis, or other acute process in the abdomen or pelvis. - urology consulted - reconsulted nephrology - serum parathyroid hormone 185.9, corrected calcium 8.7 Infectious disease # bilateral lower extremity cellulitis # left lower extremity diabetic foot ulcer on the plantar aspect growing Staph aureus # Sepsis due to above # left heel pressure ulcer # ruled out DVT # Fungal cutaneous infection in b/l groin - MRI from 01/09/2025 shows Mild diffuse subcutaneous soft-tissue edema; possibly cellulitis. No bone marrow edema is present to suggest fracture or acute osteomyelitis. - bilateral lower extremity arterial Doppler: No hemodynamically significant stenosis based on peak systolic velocity criteria. - bilateral lower extremity venous Doppler: No right or left femoropopliteal venous thrombosis - discontinued aztreonam and linezolid on 01/20/2025 - started cefepime, vancomycin and metronidazole on 01/20/2025 - podiatry on board - left foot MRI: No MR evidence of osteomyelitis. Cellulitis and lateral 4 for deep of the 5th metatarsal bone were wound is noted overlying dressing. Edema in the intrinsic muscle of the foot may reflect sequelae of denervation, or myositis. - discontinued vancomycin 01/23/2025, started patient on daptomycin on 01/23/2025 - discontinued daptomycin, vancomycin and cefepime on 01/24/2025 - started linezolid on 01/24/2025 - topical nystatin Hem/onc # microcytic anemia # thrombocytosis likely secondary to sepsis - s/p 2 PRBC - GI on board - monitor Endocrine # DKA, now resolved # recurrent episodes of hypoglycemia # severe protein calorie malnutrition # diabetic/starvation ketoacidosis, improved - discontinued lispro - holding insulin Lantus as patient continues to get hypoglycemic - mild sliding scale insulin - Accu-Cheks q4hr Diet Nepro carb steady with ProStat tube feedings Lines - right PICC line paced on 01/24/2025 - right-sided Dean catheter placed on 01/24/2025 - Jones catheter exchanged on 01/26/2025 Drips Fentanyl 150 microgram/minute Versed 8 mg Off of Levophed as of 01/24/2025; briefly required 4cmg/hr during dialysis on 01/29/25 Transeferred to OXANA 01/23/25 critical care time excluding procedures was 56 mins Code status discussed greater than 20 minutes: Full CODE STATUS. Plan discussed with Dr. Dan Plan discussed with: Other (Patient's parents at bedside, RN) My Orders My Orders Orders - ANABELL ORDOÑEZ RESIDENT Procedure Category Date Status Time Chest Portable XY 01/30/25 Resulted 04:00 Abg W/ Co-Ox RT 01/30/25 Logged 04:00 Insulin R (Human) PHA 01/30/25 In Process (Insulin R) 12:00 Metoclopramide PHA 01/30/25 In Process Injection (Reglan 14:00 Comprehensive LAB 01/31/25 Verified Metabolic Panel 04:00 Complete Blood Count LAB 01/31/25 Verified 04:00 Abg W/ Co-Ox RT 01/31/25 Transmitted 04:00 Chest Portable XY 01/31/25 Transmitted 04:00 Dietary Evaluation Review Recommendations by RD: Increase Calorie Intake Comments: Nutrition Recommendation: 1) Vital AF 1.2Cal @ 25ml/hr along with Pro-stat 1 pk BID. start @ 20ml/hr, increase 10ml/hr Q4H until goal is reached. TF @ goal volume along with propofol, IV D5wNS0.45%, and Pro-stat provides 1684 kcal (100% energy needs), 75gm protein (100% protein needs), 487ml free water. 2) TPN to meet 75% estimated needs if remains NPO 3) Bryce 1 pk BID for DFU Expected Outcomes/Goals: DFU to improve To maintain/gain weight To meet at least 75% estimated needs Fu 2-3 days Interpretation of weight loss: up to 5% in 1 month Muscle Mass (Severe): Mod to Severe Depletion Protein Calorie Malnutrition: Non-Severe Is there a minimum of two crit: Yes Date of Service: Jan 30, 2025 Billing Provider: AMY DAN MD Common Visit Codes: [id number] CARE 30-74 MIN ANABELL ORDOÑEZ Jan 30, 2025 18:29 AMY DAN MD Feb 02, 2025 11:15
[2025-01-30] MEDS: Nepro With Carb Steady 1 Liter Bottle GT SCH (20:35)
--- NOTE | 2025-01-30 22:29 | DVHPN2 ---
Progress Note - Dictate Date Seen: Jan 30, 2025 Medical Necessity Reason Pt with a Central, PICC or Fol: No The following are medically ne: Jones Catheter Reason for jones catheter: Strict I&O Subjective No new complaints Patient is still intubated and sedated Patient has been started on enteral tube feedings at 30 mL/hour and IV TPN is discontinued Moderate persistent and worsening elevation in alkaline phosphatase H&H is stable at 8.0; leukocytosis is improving Repeat ultrasound of the gallbladder is normal but patient continues to have rising alkaline phosphatase Rising elevated alkaline phosphatase over 2300 today vital signs Vital Sign Date Time Temp Pulse Resp B/P (MAP) Pulse Ox O2 Delivery O2 Flow Rate FiO2 01/30/25 21:45 107 16 113/52 (72) 98 01/30/25 20:24 30 01/30/25 20:00 Mechanical Ventilator+ 01/30/25 20:00 97.1 97.1 01/29/25 20:00 2 Total Intake and Output 01/29/25 01/29/25 01/30/25 15:00 23:00 07:00 Intake Total 974.315 ml 764 ml 814 ml Output Total 200 ml 650 ml 250 ml Balance 774.315 ml 114 ml 564 ml medications Current Medications Medications Dose Ordered Sig/Zaria Route Start Time Stop Time Status Last Admin Dose Admin Famotidine 20 mg Q12HR IV 01/07/25 10:00 UNV Diagnostic Test (Pha) 1 strip IQ4HR 01/07/25 08:00 Cancel Calcium Gluconate/ Sodium Chloride 50 ml @ 100 mls/hr Q30M IV 01/08/25 17:30 01/08/25 18:29 Cancel Pantoprazole Sodium 40 mg BID IV 01/10/25 10:00 01/30/25 10:38 40 MG Midazolam HCl 50 ml @ 1 mls/hr Q24H IV 01/24/25 04:00 01/30/25 18:35 8 MLS/HR Fentanyl Citrate 250 ml @ 2.5 mls/hr Q24H IV 01/24/25 04:00 01/30/25 15:40 15 MLS/HR Norepinephrine Bitartrate 250 ml @ 3.75 mls/hr Q24H IV 01/24/25 04:30 01/29/25 09:52 3.75 MLS/HR Sodium Chloride 10 ml QSHIFT@10,22 IV 01/24/25 22:00 01/30/25 10:38 10 ML Linezolid 300 ml @ 150 mls/hr Q12HR IV 01/24/25 22:00 01/30/25 10:34 150 MLS/HR Nystatin 1 applic BID TOP 01/24/25 22:00 01/30/25 11:14 1 APPLIC Dextrose 50 ml UD IV 01/25/25 13:15 Diagnostic Test (Pha) 1 strip Q4HR 01/26/25 14:00 UNV Metronidazole 100 ml @ 100 mls/hr Q8HR IV 01/27/25 22:00 01/30/25 13:52 100 MLS/HR Furosemide 40 mg BID IV 01/28/25 22:00 01/30/25 11:04 40 MG Amino Acid Protein 30 ml TIDWM PO 01/28/25 18:00 01/30/25 18:35 30 ML Enteral Nutritional Formula 1,000 ml 30ML/HR GT 01/29/25 18:15 01/30/25 20:35 1,000 ML Insulin Human Regular IQ4HR SC 01/30/25 12:00 01/30/25 19:50 3 UNITS Metoclopramide HCl 5 mg Q8HR IV 01/30/25 14:00 01/30/25 15:50 5 MG Diagnostic Test (Pha) 1 strip Q4H 01/30/25 16:00 01/30/25 19:49 1 STRIP objective Intubated sedated hemodynamically stable Mild Abdominal distention no masses Generalized anasarca and scrotal swelling laboratory and microbiology Laboratory Tests 01/30/25 04:42 Test 01/30/25 04:42 Range/Units Serum Glucose 199 H 74-106 mg/dL Problems(with codes): (1) Fluid overload (2) Gallstones (3) Gallbladder hydrops (4) Cannabinoid hyperemesis syndrome (5) Intractable abdominal pain (6) Diabetic keto-acidosis (7) Gastroparesis (8) Vomiting (9) Failure to thrive (10) Erosive esophagitis (11) Symptomatic anemia (12) Altered mental status Prognosis Assessment and plan Moderate elevation in liver enzymes This could be multifactorial possibly related to cholestasis most likely from drugs like antibiotics Rule out bile duct obstruction mid CBD stone by checking an MRCP This could be part of a sepsis syndrome or SIRS There was no evidence of a fracture bony metastases or hyperparathyroidism or infiltrative disease consider isoenzyme fractionation of alkaline phosphatase Dietary Evaluation Review Recommendations by RD: Increase Calorie Intake Comments: Nutrition Recommendation: 1) Vital AF 1.2Cal @ 25ml/hr along with Pro-stat 1 pk BID. start @ 20ml/hr, increase 10ml/hr Q4H until goal is reached. TF @ goal volume along with propofol, IV D5wNS0.45%, and Pro-stat provides 1684 kcal (100% energy needs), 75gm protein (100% protein needs), 487ml free water. 2) TPN to meet 75% estimated needs if remains NPO 3) Bryce 1 pk BID for DFU Expected Outcomes/Goals: DFU to improve To maintain/gain weight To meet at least 75% estimated needs Fu 2-3 days Interpretation of weight loss: up to 5% in 1 month Muscle Mass (Severe): Mod to Severe Depletion Protein Calorie Malnutrition: Non-Severe Is there a minimum of two crit: Yes Plan discussed with: Other ([facility] Nurse) LETTY GENTILE MD Jan 30, 2025 22:29
[2025-01-31] VITALS (108 sets, daily range): BP systolic 95–143; BP diastolic 43–71; PULSE 103–120; RESP 13–35; TEMP 98.5–98.9; O2SAT 94–100
[2025-01-31 06:20] LABS: Alanine Aminotransferase 15 U/L (7-40); Anion Gap 12 (5-15); BUN/Creatinine Ratio 11.4 (10.0-20.0); Carbon Dioxide 24 mmol/L (20-31); Chloride 101 mmol/L (98-107); Sodium 137 mmol/L (136-145)
[2025-01-31 06:39] LABS: Albumin 2.2 g/dL (3.2-4.8); Alkaline Phosphatase > 2300 U/L (46-116); Bilirubin, Total 3.6 mg/dL (0.2-1.0); Blood Urea Nitrogen 30 mg/dL (9-23); Calcium 7.4 mg/dL (8.7-10.4); Glucose 240 mg/dL (74-106); Potassium 3.1 mmol/L (3.5-5.1); Total Protein 4.8 g/dL (5.7-8.2)
[2025-01-31 06:41] LABS: Hematocrit 23.8 % (41.0-53.0); Hemoglobin 7.6 g/dL (13.5-17.5); Mean Corpuscular Hemoglobin 25.7 pg (28.0-32.0); Mean Corpuscular Volume 80.3 fL (80.0-100.0); Nucleated Red Blood Cells % 0.9 %
--- NOTE | 2025-01-31 06:46 | DVH ---
CHEST RADIOGRAPH Indication: Pleural effusions Technique: Single frontal view of the chest was obtained Comparison: XY CHEST PORTABLE on DOS: 01/30/25 FINDINGS: Lines and Tubes: Right PICC terminates in the superior vena cava. Right central venous catheter term inates in the superior vena cava. Enteric tube terminates in the stomach. Lungs: Hazy bilateral airspace disease. Pleura: Bilateral pleural effusions. No pneumothorax. Cardiomediastinal contours: Unremarkable Bones: No acute osseous abnormality. IMPRESSION: 1. Appropriate position of the support lines and tubes. 2. Bilateral pleural effusions and hazy bilateral airspace disease which may reflect pulmonary edema or pneumonia.
[2025-01-31 09:14] LABS: Base Excess -3.0 mmol/L (-2.0-3.0)
[2025-01-31] MEDS: POTASSIUM CHL 20MEQ/100ML 100 ML IV SCH (13:45)
[2025-01-31] MEDS ORDERED: VANCOMYCIN PER PHARMACY 0 MG IV SCH (14:30)
--- NOTE | 2025-01-31 14:32 | DVHPNRES ---
Progress Note Date Seen: Jan 31, 2025 Resident Creating Document: ANABELL ORDOÑEZ RESIDENT Medical Necessity Reason Pt with a Central, PICC or Fol: No The following are medically ne: Jones Catheter Reason for jones catheter: Strict I&O Subjective Review of Systems Patient is a 44-year-old male with known history of type 1 diabetes mellitus who presented on 01/06/2025 via EMS for altered level of consciousness. Per EMS, the patient was found unresponsive with a blood glucose of 931 and received 400 cc IV fluids on route. On arrival he exhibited hypoxia, generalized weakness, increased work of breathing necessitating intubation and mechanical ventilation. Patient was started on IV insulin drip, Zosyn and vancomycin with bicarbonate for severe acidosis. A right femoral central line, midline and peripheral IVs were also placed. Of note, patient has a history of poor adherence to his insulin therapy. Per patient's father, patient lives alone in a trailer and had not been heard from since 01/02/2025. Patient was last hospitalized at the [facility] in November 2024 for DKA. On 01/07/2025, patient developed lip swelling while still intubated, chart review revealed a penicillin allergy. Zosyn was discontinued and patient was treated with methylprednisolone and transitioned to meropenem. Nephrology was consulted for RADHA and hypernatremia. A 01/10/2025, patient had begun to improve and was weaned off sedation and was extubated on 01/12/2025 and transferred telemetry. Antibiotics were discontinued at that time due to uncertainty about the cause of leukocytosis (steroids versus infection). However, WBCs continued to trend upwards and the patient developed low-grade fevers, subsequently restarted on linezolid and aztreonam. Patient has bilateral diabetic foot ulcers, left side more advanced than right. MRI of bilateral extremities shows mild subcutaneous edema, possibly cellulitis but no signs of osteomyelitis. Patient was also noted to have a pressure related ulcer to the left heel. Lower extremity arterial Doppler showed no significant stenosis. Vascular surgery evaluated the ulcers but recommended no interventions at this time. Podiatry already on board. 01/20/2025: Held insulin Lantus, discontinued lispro, mild sliding scale q.4 hours only. Started IV fluconazole for candidal infection in the groin. Podiatry reconsulted for evaluation of bilateral lower extremity ulcers. GI consult for anemia and positive stool occult blood. Discontinued linezolid and aztreonam, started on cefepime, vancomycin and metronidazole. 01/21/25: notes improved but continued nausea, new onset abdominal pain 9-05/02, localized to mid abdomen. Patient refused MRI owing to abdominal pain, we will reattempt tomorrow. Added metoclopramide qD along with norco and morphine as needed. Blood glucose in 290s, resumed lantus 7units qAM, however, dropping blood sugar by 4pm therefore discontinued lantus again. Pt refuses to eat and has severe aversion to food 01/22/25: improved abdominal pain today 6-01/30, agreeable to CT abdomen however still refusing MRI L foot. Plan to reattempt tomorrow. new moderate R sided hydronephrosis noted, urology consulted. denies dyspnea, sob. improving nausea. 01/23/2025: Patient notes feeling weaker than yesterday, denies abdominal pain. On physical exam decreased breath sounds more prominent on the left side and some crackles bibasilar. Discontinued vancomycin and started patient on daptomycin. Repeated left foot MRI which showed cellulitis in the lateral 4 for deep to the 5th metatarsal bone marrow wound is noted with overlying dressing, no evidence of osteomyelitis. IV furosemide was increased to 40 mg b.i.d. and patient was transferred to D . 01/24/2025: Overnight patient was intubated due to increasing respiratory distress, patient also underwent thoracentesis with 900 mL of fluid removed on the left side. For starvation/diabetic ketoacidosis, patient was started on an insulin drip and D10, gap was closed and bicarb was stabilized at 20. Blood glucose was 100 with a insulin drip was stopped, patient was started on D5 water at 50 cc/hours. Nephrology increased IV Lasix to 80 mg b.i.d. along with plan for renal replacement therapy tentatively in the p.m.. 01/25/2025- patient received right IJ Dean cath HD cath yesterday. Dialysis done 1 L removed. Today patient continues to have right upper extremity edema 2+. Left upper extremity is restricted has trace pitting edema and restricted due to history of DVT. Patient also has 1 to trace pedal edema bilaterally. Up to mid shins. Patient is not requiring any vasopressors. Patient is ventilated and due to acute hypoxic respiratory failure. Patient has no p.o. intake due to large gastric bubble and possible gastroparesis from prolonged uncontrolled diabetes. We will do TPN via PICC line now and hold off any enteral feeds. Continue IV antibiotics. Patient is anemic less than 7, 1 unit PRBC. Tentative plan to get EPO with HD, which may help. No sources of obvious hemorrhage. We are continuing D5 W for hypernatremia. We will do some education vacation today and if goes well possible CPAP trials tomorrow. We will continue sliding scale insulin Q 2. Patient antibiotics IV is linezolid only. 01/26/2025-no dialysis today. No lower extremity edema. Right upper extremity edema looks improved. Today doing sedation vacation and CPAP trial. Some electrolyte abnormalities not concerning nephrology reviewed. Patient on dialysis but still makes some urine 150 dark brown color. Patient is getting broad-spectrum antibiotics. Clinimix. Sedation vacation but otherwise patient was on Versed and fentanyl. Heart rate upper end of normal in the 100s. Blood pressure stable. No vasopressors. We will decrease Accu-Cheks to q.4. Decrease D5 to 30, being used for recurrent hypoglycemia. Otherwise continue primary team's plan. 01/27/2025: Patient seen and examined at bedside. Noted to have fluid overload, severe scrotal swelling, 2+ lower extremity nonpitting edema up to the thighs along with scleral edema was noted. Urine output of 325 mL in the past 24 hours. Undergoing dialysis today. Had an apneic episode during CPAP trial on 01/26/2025. 01/28/2025: Patient seen and examined at bedside. Minimal improvement in edema, s/p dialysis yesterday on 01/27/2025. Continues to have nonpitting edema up to knees along with scleral and scrotal edema. Jaundiced appearance noted. 01/29/25: Patient seen and examined at bedside. improved UOP since yesterday, worsening inspiratory crackles and LE edema. completed dialysis today, required 4mcg/hr of norepinephrine during dialysis. noted to have scabbed lesions on the penis. 01/30/2025: Patient seen and examined at bedside, improved lower extremity edema. Detailed discussions held with patient's parents at bedside. 01/31/2025: Patient seen and examined [place] [id number] [place]. Discontinued linezolid today on day 8 of treatment, started IV vancomycin per pharmacy after approval from Nephrology to have the dose timed with dialysis sessions. Repleted potassium with 40 mEq KCl rider. Urine output 100 mL in the last 24 hours, 700 mL of stool output via rectal tube. Objective vital signs Vital Sign Date Time Temp Pulse Resp B/P (MAP) Pulse Ox O2 Delivery O2 Flow Rate FiO2 01/31/25 13:18 122/59 01/31/25 12:38 103 18 97 30 01/31/25 06:00 Mechanical Ventilator+ 01/31/25 00:00 98.5 98.5 01/29/25 20:00 2 Total Intake and Output 01/30/25 01/30/25 01/31/25 15:00 23:00 07:00 Intake Total 669 ml 671 ml 537 ml Output Total 275 ml 525 ml Balance 669 ml 396 ml 12 ml medications Current Medications Medications Dose Ordered Sig/Zaria Route Start Time Stop Time Status Last Admin Dose Admin Famotidine 20 mg Q12HR IV 01/07/25 10:00 UNV Diagnostic Test (Pha) 1 strip IQ4HR 01/07/25 08:00 Cancel Calcium Gluconate/ Sodium Chloride 50 ml @ 100 mls/hr Q30M IV 01/08/25 17:30 01/08/25 18:29 Cancel Pantoprazole Sodium 40 mg BID IV 01/10/25 10:00 01/31/25 10:39 40 MG Midazolam HCl 50 ml @ 1 mls/hr Q24H IV 01/24/25 04:00 01/31/25 13:18 1 MLS/HR Fentanyl Citrate 250 ml @ 2.5 mls/hr Q24H IV 01/24/25 04:00 01/31/25 08:36 15 MLS/HR Norepinephrine Bitartrate 250 ml @ 3.75 mls/hr Q24H IV 01/24/25 04:30 01/29/25 09:52 3.75 MLS/HR Sodium Chloride 10 ml QSHIFT@10,22 IV 01/24/25 22:00 01/31/25 10:45 10 ML Nystatin 1 applic BID TOP 01/24/25 22:00 01/31/25 10:46 1 APPLIC Dextrose 50 ml UD IV 01/25/25 13:15 Diagnostic Test (Pha) 1 strip Q4HR 01/26/25 14:00 UNV Metronidazole 100 ml @ 100 mls/hr Q8HR IV 01/27/25 22:00 01/31/25 05:39 100 MLS/HR Furosemide 40 mg BID IV 01/28/25 22:00 01/31/25 10:40 40 MG Amino Acid Protein 30 ml TIDWM PO 01/28/25 18:00 01/31/25 12:00 30 ML Enteral Nutritional Formula 1,000 ml 30ML/HR GT 01/29/25 18:15 01/30/25 20:35 1,000 ML Insulin Human Regular IQ4HR SC 01/30/25 12:00 01/31/25 08:44 3 UNITS Metoclopramide HCl 5 mg Q8HR IV 01/30/25 14:00 01/30/25 22:31 5 MG Diagnostic Test (Pha) 1 strip Q4H 01/30/25 16:00 01/31/25 12:00 1 STRIP Potassium Chloride 100 ml @ 50 mls/hr Q2H IV 01/31/25 13:45 01/31/25 17:44 UNV Examination General Appearance: Intubated and sedated. Malnourished, in mild distress. Jaundiced Head Exam: Normal inspection. No vision in right eye, decreased vision in left eye, minimally reactive pupils. Scleral edema Pulmonary/Respiratory: Chest non-tender. decreased bilateral breath sounds, no crackles, no wheezing. Cardiovascular/Chest: Tachycardic. No murmurs. No JVD. Abdominal Exam: Normal bowel sounds. Soft. normal abdomen, no visible veins, nontender No hepatospenomegaly. No masses Lower extremities: 2+ nonpitting lower extremity edema up to the thighs. Left heel pressure ulcer noted. Multiple diabetic foot ulcers on bilateral feet, largest 1 noted on left plantar foot with a dark black necrotic appearance Thoughts/Psych: Normal thought pattern. Appropriate mood and affect Skin Exam: improving groin lesions, redness noted along right gluteal area, scrotal swelling. laboratory and microbiology Laboratory Tests 01/31/25 04:41 Test 01/31/25 04:41 Range/Units Serum Glucose 240 H 74-106 mg/dL Microbiology Date/Time Source Procedure Growth Status 01/26/25 08:46 Urine - Jones Port Urine Culture - Final Complete 01/24/25 04:15 Sputum Gram Stain - Final Complete 01/24/25 04:15 Sputum Respiratory Culture - Final Complete 01/23/25 20:30 Pleural Fluid Gram Stain - Final Complete 01/23/25 20:30 Pleural Fluid Body Fluid Culture - Final Complete 01/19/25 16:06 Nose MRSA Screen - Final Complete 01/16/25 19:00 Blood Blood Culture - Final NO GROWTH AFTER 5 DAYS OF INCUBATION. Complete 01/08/25 10:37 Stool Stool Culture - Final Complete 01/08/25 10:37 Stool Shiga Toxin I & II - Final Complete Labs and/or images reviewed: Labs reviewed by me, Image(s) reviewed by me Problem List/Assessment/Plan Problem List/Assessment/Plan Neurology # acute metabolic encephalopathy likely due to DKA vs Sepsis, improving - head CT from 01/07/2025: No acute territorial infarct, intracranial hemorrhage or mass effect - head CT from 01/19/2025: No acute intracranial abnormality - monitor Cardiovascular # runs of AFib on EKG # prolonged QTC # Essential hypertension - avoiding QT prolonging drugs - echocardiogram from 07/20/2022: Overall preserved ventricular systolic function. EF 60%. Grade 1 diastolic dysfunction. - increased amlodipine to 10mg qD - repeat echo: Mild LVH and mild LV diastolic dysfunction. LVEF 65%. Slightly dilated left atrium. Moderately dilated RV and RA. Moderate degree pulmonary hypertension. Normal valves and no effusion. - monitor Respiratory # Community acquired pneumonia, Gram-positive versus Gram-negative # Acute hypoxic respiratory failure due to above, intubated and mechanically ventilated # moderate-large b/l Pleural effusions # moderate pulmonary hypertension with RVSP 46 mmHg - CXR 01/08/25: Bibasilar atelectasis or pneumonia. - CXR 01/20/25: Patchy bilateral airspace disease, [id number], slightly increased - previously on meropenem and vancomycin, stopped on 01/12/2025 - started on aztreonam on 01/17/2025, linezolid 01/16/2025 - discontinued aztreonam and linezolid on 01/20/2025 - started cefepime, vancomycin and metronidazole on 01/20/2025 - discontinued vancomycin 01/23/2025 - s/p thoracentesis with 900 mL of fluid removed on 01/23/2025 Ventilator: AC/VC Tidal volume 450 Respiratory rate 18 Peep 8 FiO2 35% GI # Acute intractable abdominal pain (01/21/25), improved # Microcytic anemia possibly 2' to ?LGI bleed; Hb 7.8 # Moderate abdominopelvic ascites # Peptic ulcer prophylaxis # gallbladder hydrops # isolated rise in alkaline phosphatase likely from cholestasis? # hypokalemia - stool occult blood positive - GI consult - CT abdomen pelvis from 01/07/2025: Nonspecific periportal edema. Incidental finding. -Pantoprazole 40 mg IV daily - serum lipase 113 - repeat CT abdomen pelvis (01/22/25): Moderate to large bilateral pleural effusions with patchy and consolidative infiltrates in the lung bases likely a combination of pneumonia and atelectasis.mLow to moderate volume abdominopelvic ascites and diffuse subcutaneous edema suggestive of anasarca. Moderate right hydronephrosis without visualization of hydroureter or obstructing calculi. This appearance is new versus CT scan dated 01/07/2025. Gallbladder hydrops without visualization of gallstones. This appearance may indicate acalculous cholecystitis. Fluid-filled colon with multiple air-fluid levels present, possibly related to diarrheal illness. No evidence of bowel obstruction, acute appendicitis, or other acute process in the abdomen or pelvis. 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 Moderate right hydronephrosis without visualization of hydroureter or obstructing calculi. This appearance is new versus CT scan dated 01/07/2025. Gallbladder hydrops without visualization of gallstones. This appearance may indicate acalculous cholecystitis. Fluid- filled colon with multiple air-fluid levels present, possibly related to diarrheal illness. No evidence of bowel obstruction, acute appendicitis, or other acute process in the abdomen or pelvis. - urology consulted - reconsulted nephrology - serum parathyroid hormone 185.9, corrected calcium 8.7 Infectious disease # bilateral lower extremity cellulitis # left lower extremity diabetic foot ulcer on the plantar aspect growing Staph aureus # Sepsis due to above # left heel pressure ulcer # ruled out DVT # Fungal cutaneous infection in b/l groin - MRI from 01/09/2025 shows Mild diffuse subcutaneous soft-tissue edema; possibly cellulitis. No bone marrow edema is present to suggest fracture or acute osteomyelitis. - bilateral lower extremity arterial Doppler: No hemodynamically significant stenosis based on peak systolic velocity criteria. - bilateral lower extremity venous Doppler: No right or left femoropopliteal venous thrombosis - discontinued aztreonam and linezolid on 01/20/2025 - started cefepime, vancomycin and metronidazole on 01/20/2025 - podiatry on board - left foot MRI: No MR evidence of osteomyelitis. Cellulitis and lateral 4 for deep of the 5th metatarsal bone were wound is noted overlying dressing. Edema in the intrinsic muscle of the foot may reflect sequelae of denervation, or myositis. - discontinued vancomycin 01/23/2025, started patient on daptomycin on 01/23/2025 - discontinued daptomycin, vancomycin and cefepime on 01/24/2025 - started linezolid on 01/24/2025 - discontinued linezolid on 01/31/2025 owing to dropping platelet count - started IV vancomycin per pharmacy after approval from Nephrology to have the dose timed with dialysis sessions - topical nystatin Hem/onc # microcytic anemia # thrombocytosis likely secondary to sepsis - s/p 2 PRBC - GI on board - monitor Endocrine # DKA, now resolved # recurrent episodes of hypoglycemia # severe protein calorie malnutrition # diabetic/starvation ketoacidosis, improved - discontinued lispro - holding insulin Lantus as patient continues to get hypoglycemic - mild sliding scale insulin - Accu-Cheks q4hr Diet Nepro carb steady with ProStat tube feedings Lines - right PICC line paced on 01/24/2025 - right-sided Dean catheter placed on 01/24/2025 - Jones catheter exchanged on 01/26/2025 Drips Fentanyl 150 microgram/minute Versed 8 mg Off of Levophed as of 01/24/2025; briefly required 4cmg/hr during dialysis on 01/29/25 Transeferred to OXANA 01/23/25 critical care time excluding procedures was 56 mins Code status discussed greater than 20 minutes: Full CODE STATUS. Plan discussed with Dr. Castellano Plan discussed with: Other (RN) My Orders My Orders Orders - ANABELL ORDOÑEZ RESIDENT Procedure Category Date Status Time Abg W/ Co-Ox RT 01/31/25 Logged 04:00 Chest Portable XY 01/31/25 Resulted 04:00 Potassium Chl PHA 01/31/25 Logged 20meq/100ml 13:45 Vancomycin Per PHA 01/31/25 Logged Pharmacy 14:30 Glucose Blood PHA 01/31/25 Verified (Accu-Chek Comfort 16:00 Moderate Insulin Ss PHA 01/31/25 Verified 16:00 Dextrose 50% Syringe PHA 01/31/25 Verified 14:45 Dietary Evaluation Review Recommendations by RD: Increase Calorie Intake Comments: Nutrition Recommendation: 1) Vital AF 1.2Cal @ 25ml/hr along with Pro-stat 1 pk BID. start @ 20ml/hr, increase 10ml/hr Q4H until goal is reached. TF @ goal volume along with propofol, IV D5wNS0.45%, and Pro-stat provides 1684 kcal (100% energy needs), 75gm protein (100% protein needs), 487ml free water. 2) TPN to meet 75% estimated needs if remains NPO 3) Bryce 1 pk BID for DFU Expected Outcomes/Goals: DFU to improve To maintain/gain weight To meet at least 75% estimated needs Fu 2-3 days Interpretation of weight loss: up to 5% in 1 month Muscle Mass (Severe): Mod to Severe Depletion Protein Calorie Malnutrition: Non-Severe Is there a minimum of two crit: Yes ANABELL ORDOÑEZ RESIDENT Jan 31, 2025 14:32
[2025-01-31] MEDS: HEPARIN 1,000 UNITS/ml 1ML VIAL IV ONE (15:32)
[2025-01-31] MEDS: InsuLIN REG 1unit/0.01ml Soln (100units/ml) SC SCH (16:20)
[2025-01-31] MEDS: ACCU-CHEK COMFORT CURVE STRIP VI SCH (16:20)
--- NOTE | 2025-01-31 16:27 | DVHPN2 ---
Consult Progress Note Date Seen: Jan 26, 2025 Subjective Patient reports: Other (off all pressers , on minimal vent ) Objective vital signs Vital Sign Date Time Temp Pulse Resp B/P (MAP) Pulse Ox O2 Delivery O2 Flow Rate FiO2 01/31/25 14:53 103 18 111/54 (73) 94 30 01/31/25 06:00 Mechanical Ventilator+ 01/31/25 00:00 98.5 98.5 01/29/25 20:00 2 Total Intake and Output 01/30/25 01/30/25 01/31/25 15:00 23:00 07:00 Intake Total 669 ml 671 ml 537 ml Output Total 275 ml 525 ml Balance 669 ml 396 ml 12 ml medications Current Medications Medications Dose Ordered Sig/Zaria Route Start Time Stop Time Status Last Admin Dose Admin Famotidine 20 mg Q12HR IV 01/07/25 10:00 UNV Diagnostic Test (Pha) 1 strip IQ4HR 01/07/25 08:00 Cancel Calcium Gluconate/ Sodium Chloride 50 ml @ 100 mls/hr Q30M IV 01/08/25 17:30 01/08/25 18:29 Cancel Pantoprazole Sodium 40 mg BID IV 01/10/25 10:00 01/31/25 10:39 40 MG Midazolam HCl 50 ml @ 1 mls/hr Q24H IV 01/24/25 04:00 01/31/25 13:18 1 MLS/HR Fentanyl Citrate 250 ml @ 2.5 mls/hr Q24H IV 01/24/25 04:00 01/31/25 08:36 15 MLS/HR Norepinephrine Bitartrate 250 ml @ 3.75 mls/hr Q24H IV 01/24/25 04:30 01/29/25 09:52 3.75 MLS/HR Sodium Chloride 10 ml QSHIFT@10,22 IV 01/24/25 22:00 01/31/25 10:45 10 ML Nystatin 1 applic BID TOP 01/24/25 22:00 01/31/25 10:46 1 APPLIC Diagnostic Test (Pha) 1 strip Q4HR 01/26/25 14:00 UNV Metronidazole 100 ml @ 100 mls/hr Q8HR IV 01/27/25 22:00 01/31/25 15:50 100 MLS/HR Furosemide 40 mg BID IV 01/28/25 22:00 01/31/25 10:40 40 MG Amino Acid Protein 30 ml TIDWM PO 01/28/25 18:00 01/31/25 12:00 30 ML Enteral Nutritional Formula 1,000 ml 30ML/HR GT 01/29/25 18:15 01/30/25 20:35 1,000 ML Metoclopramide HCl 5 mg Q8HR IV 01/30/25 14:00 01/31/25 15:50 5 MG Potassium Chloride 100 ml @ 50 mls/hr Q2H IV 01/31/25 13:45 01/31/25 17:44 Vancomycin HCl 0 ml @ 0 mls/hr UD IV 01/31/25 14:30 Diagnostic Test (Pha) 1 strip IQ4HR 01/31/25 16:00 Insulin Human Regular IQ4HR SC 01/31/25 16:00 Dextrose 50 ml UD PRN IV 01/31/25 14:45 laboratory and microbiology Laboratory Tests 01/31/25 04:41 Test 01/31/25 04:41 Range/Units Serum Glucose 240 H 74-106 mg/dL Problem List/Assessment/Plan Problems(with codes): (1) Fluid overload (2) Gallstones (3) Gallbladder hydrops (4) History of diabetic ketoacidosis (5) Cannabinoid hyperemesis syndrome (6) Intractable abdominal pain (7) Inadequate oral intake (8) Appendicolith Problem List/Assessment/Plan Problem List/Assessment/Plan - Acute hypoxic respiratory therapy Patient is a 44 year old with a past medical history of type 1 diabetes who presents with blood sugars of 940, altered mental status . was started on insulin drip and monitored in ICU . having respiratory distress and respiratory alkalosis . chest xray was unremarkable patient was started empirically on vancomycin and Zosyn . later developed swelling of the lips and out of concern of allergy Zosyn was stopped and switched to Aztreonam and vancomycin was stopped due to acute kidney injury and was switched to linezolid . patient has chronic bilateral foot wounds with no new ulcers , malnourished . both feet ulcers are on the planar surface with a necrotic planar base, on the right foot it looks newer with mild drainage. Currently tolerating antibiotics whitecount is 18.6 , creatinine is 2.24 and patient is on minimal vent and no requiring any presser support . microbiology cultures and respiratory cultures are negative . foot wound was swabbed and is growing MSSA and enterococcus facialis. unclear sensitivities . 01/18: growing MSSA and enterococcus that is sensitive to ampicillin and vancomycin . whitecount is at 21.6. 01/19: whitecount is 19.1 . blood sugars are more controlled . underwent MRI of feet bilaterally and no signs of osteomyelitis , only cellulitis 01/20: switched from aztreonam to cefepime and fluconazole because of candidal infection of the groin which is alse a concer for persistly elevated leukocytosis and ongoing visible cellulitis 01/21: worsening RADHA , may have to stop vancomycin early 01/22: Worsening RADHA , likely edema in the lungs . vancomycin troths was 19.3 on the higher end of normal 01/23: Chest xray shows worsening multifocal pneumonia , patient is also having worsening RADHA 01/24: Chest xray continues to show worsening multifocal pneumonia , worsening leukocytosis and levofed needs consistent with new pneumonia resulting in septic shock or volume overload 01/25: preliminary sputum culture shows mucus threads , no organisms , no growth . respiratory cultures show no growth . chest xray shows multifocal pneumonia , worse from prior . hemoglobin is at 7.5 01/26: whitecount at 12.8 , required blood transfusion for hemoglobin 6.2 . unclear where patient is having bleeding Plan : - defer to primary team regarding plan for diuresis in setting of possible volume overload and anemia workup otherwise suspect volume overload is etiology largely contributing to patients ongoing hypoxia - Continue IV linezolid and topical nystatin 2x a day for growing fungal infection - continue cefepime - agree with urine culture to evaluate for UTI in setting of RADHA and jones use - if hypotension or hypoxia worsen start meropenem empirically - f/u on any plural studies done , so far not consistent with parapneumonic pneumonia - if patient continues to have signs of infection will consider acquiring a ct of lower extremities bilaterally to evaluate for unseen abscess or osteomyelitis but can hold off for now - continues empiric coverage - add flagyl to account for loss of anaerobic coverage of necrotic ulcer - defer DKA management to primary care team - defer management of vent support to keep O2 sats above 95% to [place]er [place] team - f/u on pending blood cultures Authorized and Performed by: Lizzy Roland Total critical care time: Approximately 76 minutes Due to a high probability of clinically significant, life threatening deterioration, the patient required my highest level of preparedness to intervene emergently and I personally spent this critical care time directly and personally managing the patient. This critical care time included obtaining a history; examining the patient; pulse oximetry; ordering and review of studies; arranging urgent treatment with development of a management plan; evaluation of patient's response to treatment; frequent reassessment; and, discussions with other providers. This critical care time was performed to assess and manage the high probability of imminent, life-threatening deterioration that could result in multi-organ failure. It was exclusive of separately billable procedures and treating other patients and teaching time. Plan discussed with: Other Dietary Evaluation Review Recommendations by RD: Increase Calorie Intake Comments: Nutrition Recommendation: 1) Vital AF 1.2Cal @ 25ml/hr along with Pro-stat 1 pk BID. start @ 20ml/hr, increase 10ml/hr Q4H until goal is reached. TF @ goal volume along with propofol, IV D5wNS0.45%, and Pro-stat provides 1684 kcal (100% energy needs), 75gm protein (100% protein needs), 487ml free water. 2) TPN to meet 75% estimated needs if remains NPO 3) Bryce 1 pk BID for DFU Expected Outcomes/Goals: DFU to improve To maintain/gain weight To meet at least 75% estimated needs Fu 2-3 days Interpretation of weight loss: up to 5% in 1 month Muscle Mass (Severe): Mod to Severe Depletion Protein Calorie Malnutrition: Non-Severe Is there a minimum of two crit: Yes LIZZY ROLAND MD Jan 31, 2025 16:27
--- NOTE | 2025-01-31 16:27 | DVHPN2 ---
Consult Progress Note Date Seen: Jan 25, 2025 Subjective Patient reports: Other (remains off BP support , no fevers overnight . was intubated acutely for ptogressive hypoxia ) Objective vital signs Vital Sign Date Time Temp Pulse Resp B/P (MAP) Pulse Ox O2 Delivery O2 Flow Rate FiO2 01/31/25 14:53 103 18 111/54 (73) 94 30 01/31/25 06:00 Mechanical Ventilator+ 01/31/25 00:00 98.5 98.5 01/29/25 20:00 2 Total Intake and Output 01/30/25 01/30/25 01/31/25 15:00 23:00 07:00 Intake Total 669 ml 671 ml 537 ml Output Total 275 ml 525 ml Balance 669 ml 396 ml 12 ml medications Current Medications Medications Dose Ordered Sig/Zaria Route Start Time Stop Time Status Last Admin Dose Admin Famotidine 20 mg Q12HR IV 01/07/25 10:00 UNV Diagnostic Test (Pha) 1 strip IQ4HR 01/07/25 08:00 Cancel Calcium Gluconate/ Sodium Chloride 50 ml @ 100 mls/hr Q30M IV 01/08/25 17:30 01/08/25 18:29 Cancel Pantoprazole Sodium 40 mg BID IV 01/10/25 10:00 01/31/25 10:39 40 MG Midazolam HCl 50 ml @ 1 mls/hr Q24H IV 01/24/25 04:00 01/31/25 13:18 1 MLS/HR Fentanyl Citrate 250 ml @ 2.5 mls/hr Q24H IV 01/24/25 04:00 01/31/25 08:36 15 MLS/HR Norepinephrine Bitartrate 250 ml @ 3.75 mls/hr Q24H IV 01/24/25 04:30 01/29/25 09:52 3.75 MLS/HR Sodium Chloride 10 ml QSHIFT@10,22 IV 01/24/25 22:00 01/31/25 10:45 10 ML Nystatin 1 applic BID TOP 01/24/25 22:00 01/31/25 10:46 1 APPLIC Diagnostic Test (Pha) 1 strip Q4HR 01/26/25 14:00 UNV Metronidazole 100 ml @ 100 mls/hr Q8HR IV 01/27/25 22:00 01/31/25 15:50 100 MLS/HR Furosemide 40 mg BID IV 01/28/25 22:00 01/31/25 10:40 40 MG Amino Acid Protein 30 ml TIDWM PO 01/28/25 18:00 01/31/25 12:00 30 ML Enteral Nutritional Formula 1,000 ml 30ML/HR GT 01/29/25 18:15 01/30/25 20:35 1,000 ML Metoclopramide HCl 5 mg Q8HR IV 01/30/25 14:00 01/31/25 15:50 5 MG Potassium Chloride 100 ml @ 50 mls/hr Q2H IV 01/31/25 13:45 01/31/25 17:44 Vancomycin HCl 0 ml @ 0 mls/hr UD IV 01/31/25 14:30 Diagnostic Test (Pha) 1 strip IQ4HR 01/31/25 16:00 Insulin Human Regular IQ4HR SC 01/31/25 16:00 Dextrose 50 ml UD PRN IV 01/31/25 14:45 laboratory and microbiology Laboratory Tests 01/31/25 04:41 Test 01/31/25 04:41 Range/Units Serum Glucose 240 H 74-106 mg/dL Problem List/Assessment/Plan Problems(with codes): (1) Fluid overload (2) Gallstones (3) Gallbladder hydrops (4) Cannabinoid hyperemesis syndrome (5) History of diabetic ketoacidosis (6) Intractable abdominal pain (7) Inadequate oral intake Problem List/Assessment/Plan Problem List/Assessment/Plan - Acute hypoxic respiratory therapy Patient is a 44 year old with a past medical history of type 1 diabetes who presents with blood sugars of 940, altered mental status . was started on insulin drip and monitored in ICU . having respiratory distress and respiratory alkalosis . chest xray was unremarkable patient was started empirically on vancomycin and Zosyn . later developed swelling of the lips and out of concern of allergy Zosyn was stopped and switched to Aztreonam and vancomycin was stopped due to acute kidney injury and was switched to linezolid . patient has chronic bilateral foot wounds with no new ulcers , malnourished . both feet ulcers are on the planar surface with a necrotic planar base, on the right foot it looks newer with mild drainage. Currently tolerating antibiotics whitecount is 18.6 , creatinine is 2.24 and patient is on minimal vent and no requiring any presser support . microbiology cultures and respiratory cultures are negative . foot wound was swabbed and is growing MSSA and enterococcus facialis. unclear sensitivities . 01/18: growing MSSA and enterococcus that is sensitive to ampicillin and vancomycin . whitecount is at 21.6. 01/19: whitecount is 19.1 . blood sugars are more controlled . underwent MRI of feet bilaterally and no signs of osteomyelitis , only cellulitis 01/20: switched from aztreonam to cefepime and fluconazole because of candidal infection of the groin which is alse a concer for persistly elevated leukocytosis and ongoing visible cellulitis 01/21: worsening RADHA , may have to stop vancomycin early 01/22: Worsening RADHA , likely edema in the lungs . vancomycin troths was 19.3 on the higher end of normal 01/23: Chest xray shows worsening multifocal pneumonia , patient is also having worsening RADHA 01/24: Chest xray continues to show worsening multifocal pneumonia , worsening leukocytosis and levofed needs consistent with new pneumonia resulting in septic shock or volume overload 01/25: preliminary sputum culture shows mucus threads , no organisms , no growth . respiratory cultures show no growth . chest xray shows multifocal pneumonia , worse from prior . hemoglobin is at 7.5 Plan : - defer to primary team regarding plan for diuresis in setting of possible volume overload - Continue IV linezolid and topical nystatin 2x a day for growing fungal infection - continue cefepime - f/u on any plural studies done , so far not consistent with parapneumonic pneumonia - if patient continues to have signs of infection will consider acquiring a ct of lower extremities bilaterally to evaluate for unseen abscess or osteomyelitis but can hold off for now - continues empiric coverage - add flagyl to account for loss of anaerobic coverage of necrotic ulcer - defer DKA management to primary care team - defer management of vent support to keep O2 sats above 95% to candy dipper hand team - f/u on pending blood cultures Authorized and Performed by: Lizzy Roland Total critical care time: Approximately 76 minutes Due to a high probability of clinically significant, life threatening deterioration, the patient required my highest level of preparedness to intervene emergently and I personally spent this critical care time directly and personally managing the patient. This critical care time included obtaining a history; examining the patient; pulse oximetry; ordering and review of studies; arranging urgent treatment with development of a management plan; evaluation of patient's response to treatment; frequent reassessment; and, discussions with other providers. This critical care time was performed to assess and manage the high probability of imminent, life-threatening deterioration that could result in multi-organ failure. It was exclusive of separately billable procedures and treating other patients and teaching time. Plan discussed with: Other Dietary Evaluation Review Recommendations by RD: Increase Calorie Intake Comments: Nutrition Recommendation: 1) Vital AF 1.2Cal @ 25ml/hr along with Pro-stat 1 pk BID. start @ 20ml/hr, increase 10ml/hr Q4H until goal is reached. TF @ goal volume along with propofol, IV D5wNS0.45%, and Pro-stat provides 1684 kcal (100% energy needs), 75gm protein (100% protein needs), 487ml free water. 2) TPN to meet 75% estimated needs if remains NPO 3) Bryce 1 pk BID for DFU Expected Outcomes/Goals: DFU to improve To maintain/gain weight To meet at least 75% estimated needs Fu 2-3 days Interpretation of weight loss: up to 5% in 1 month Muscle Mass (Severe): Mod to Severe Depletion Protein Calorie Malnutrition: Non-Severe Is there a minimum of two crit: Yes LIZZY ROLAND MD Jan 31, 2025 16:27
--- NOTE | 2025-01-31 16:55 | DVHPN2 ---
Consult Progress Note Date Seen: Jan 27, 2025 Subjective Patient reports: Other (got transfusion , hemoglobin is 7.5 . off all pressers and on minimal vent ) Objective vital signs Vital Sign Date Time Temp Pulse Resp B/P (MAP) Pulse Ox O2 Delivery O2 Flow Rate FiO2 01/31/25 16:13 111 19 133/64 (87) 94 30 01/31/25 06:00 Mechanical Ventilator+ 01/31/25 00:00 98.5 98.5 01/29/25 20:00 2 Total Intake and Output 01/30/25 01/30/25 01/31/25 15:00 23:00 07:00 Intake Total 669 ml 671 ml 537 ml Output Total 275 ml 525 ml Balance 669 ml 396 ml 12 ml medications Current Medications Medications Dose Ordered Sig/Zaria Route Start Time Stop Time Status Last Admin Dose Admin Famotidine 20 mg Q12HR IV 01/07/25 10:00 UNV Diagnostic Test (Pha) 1 strip IQ4HR 01/07/25 08:00 Cancel Calcium Gluconate/ Sodium Chloride 50 ml @ 100 mls/hr Q30M IV 01/08/25 17:30 01/08/25 18:29 Cancel Pantoprazole Sodium 40 mg BID IV 01/10/25 10:00 01/31/25 10:39 40 MG Midazolam HCl 50 ml @ 1 mls/hr Q24H IV 01/24/25 04:00 01/31/25 13:18 1 MLS/HR Fentanyl Citrate 250 ml @ 2.5 mls/hr Q24H IV 01/24/25 04:00 01/31/25 08:36 15 MLS/HR Norepinephrine Bitartrate 250 ml @ 3.75 mls/hr Q24H IV 01/24/25 04:30 01/29/25 09:52 3.75 MLS/HR Sodium Chloride 10 ml QSHIFT@10,22 IV 01/24/25 22:00 01/31/25 10:45 10 ML Nystatin 1 applic BID TOP 01/24/25 22:00 01/31/25 10:46 1 APPLIC Diagnostic Test (Pha) 1 strip Q4HR 01/26/25 14:00 UNV Furosemide 40 mg BID IV 01/28/25 22:00 01/31/25 10:40 40 MG Amino Acid Protein 30 ml TIDWM PO 01/28/25 18:00 01/31/25 12:00 30 ML Enteral Nutritional Formula 1,000 ml 30ML/HR GT 01/29/25 18:15 01/30/25 20:35 1,000 ML Metoclopramide HCl 5 mg Q8HR IV 01/30/25 14:00 01/31/25 15:50 5 MG Potassium Chloride 100 ml @ 50 mls/hr Q2H IV 01/31/25 13:45 01/31/25 17:44 Vancomycin HCl 0 ml @ 0 mls/hr UD IV 01/31/25 14:30 Diagnostic Test (Pha) 1 strip IQ4HR 01/31/25 16:00 Insulin Human Regular IQ4HR SC 01/31/25 16:00 Dextrose 50 ml UD PRN IV 01/31/25 14:45 laboratory and microbiology Laboratory Tests 01/31/25 04:41 Test 01/31/25 04:41 Range/Units Serum Glucose 240 H 74-106 mg/dL Problem List/Assessment/Plan Problems(with codes): (1) Gastroparesis (2) Coffee ground emesis (3) Gallbladder hydrops (4) Gallstones (5) Fluid overload (6) History of diabetic ketoacidosis (7) Cannabinoid hyperemesis syndrome Problem List/Assessment/Plan - Acute hypoxic respiratory therapy Patient is a 44 year old with a past medical history of type 1 diabetes who presents with blood sugars of 940, altered mental status . was started on insulin drip and monitored in ICU . having respiratory distress and respiratory alkalosis . chest xray was unremarkable patient was started empirically on vancomycin and Zosyn . later developed swelling of the lips and out of concern of allergy Zosyn was stopped and switched to Aztreonam and vancomycin was stopped due to acute kidney injury and was switched to linezolid . patient has chronic bilateral foot wounds with no new ulcers , malnourished . both feet ulcers are on the planar surface with a necrotic planar base, on the right foot it looks newer with mild drainage. Currently tolerating antibiotics whitecount is 18.6 , creatinine is 2.24 and patient is on minimal vent and no requiring any presser support . microbiology cultures and respiratory cultures are negative . foot wound was swabbed and is growing MSSA and enterococcus facialis. unclear sensitivities . 01/18: growing MSSA and enterococcus that is sensitive to ampicillin and vancomycin . whitecount is at 21.6. 01/19: whitecount is 19.1 . blood sugars are more controlled . underwent MRI of feet bilaterally and no signs of osteomyelitis , only cellulitis 01/20: switched from aztreonam to cefepime and fluconazole because of candidal infection of the groin which is alse a concer for persistly elevated leukocytosis and ongoing visible cellulitis 01/21: worsening RADHA , may have to stop vancomycin early 01/22: Worsening RADHA , likely edema in the lungs . vancomycin troths was 19.3 on the higher end of normal 01/23: Chest xray shows worsening multifocal pneumonia , patient is also having worsening RADHA 01/24: Chest xray continues to show worsening multifocal pneumonia , worsening leukocytosis and levofed needs consistent with new pneumonia resulting in septic shock or volume overload 01/25: preliminary sputum culture shows mucus threads , no organisms , no growth . respiratory cultures show no growth . chest xray shows multifocal pneumonia , worse from prior . hemoglobin is at 7.5 01/26: whitecount at 12.8 , required blood transfusion for hemoglobin 6.2 . unclear where patient is having bleeding 01/27: preliminary urine and respiratory cultures are no growth to date . whitecount now at 11. Chest xray shows bilateral airspace disease in the right upper quadral ultrasound shows hepatomegaly with coarsened echo texture which could be seen in setting of liver disease fibrosis Plan : - stop flagyl - defer to primary team regarding plan for diuresis in setting of possible volume overload and anemia workup otherwise suspect volume overload is etiology largely contributing to patients ongoing hypoxia - Continue IV linezolid and topical nystatin 2x a day for growing fungal infection - continue cefepime - agree with urine culture to evaluate for UTI in setting of RADHA and jones use - if hypotension or hypoxia worsen start meropenem empirically - f/u on any plural studies done , so far not consistent with parapneumonic pneumonia - if patient continues to have signs of infection will consider acquiring a ct of lower extremities bilaterally to evaluate for unseen abscess or osteomyelitis but can hold off for now - defer DKA management to primary care team - defer management of vent support to keep O2 sats above 95% to interpretive program coordinator team - f/u on pending blood cultures Authorized and Performed by: Lizzy Roland Total critical care time: Approximately 76 minutes Due to a high probability of clinically significant, life threatening deterioration, the patient required my highest level of preparedness to intervene emergently and I personally spent this critical care time directly and personally managing the patient. This critical care time included obtaining a history; examining the patient; pulse oximetry; ordering and review of studies; arranging urgent treatment with development of a management plan; evaluation of patient's response to treatment; frequent reassessment; and, discussions with other providers. This critical care time was performed to assess and manage the high probability of imminent, life-threatening deterioration that could result in multi-organ failure. It was exclusive of separately billable procedures and treating other patients and teaching time. Plan discussed with: Other Dietary Evaluation Review Recommendations by RD: Increase Calorie Intake Comments: Nutrition Recommendation: 1) Vital AF 1.2Cal @ 25ml/hr along with Pro-stat 1 pk BID. start @ 20ml/hr, increase 10ml/hr Q4H until goal is reached. TF @ goal volume along with propofol, IV D5wNS0.45%, and Pro-stat provides 1684 kcal (100% energy needs), 75gm protein (100% protein needs), 487ml free water. 2) TPN to meet 75% estimated needs if remains NPO 3) Bryce 1 pk BID for DFU Expected Outcomes/Goals: DFU to improve To maintain/gain weight To meet at least 75% estimated needs Fu 2-3 days Interpretation of weight loss: up to 5% in 1 month Muscle Mass (Severe): Mod to Severe Depletion Protein Calorie Malnutrition: Non-Severe Is there a minimum of two crit: Yes LIZZY ROLAND MD Jan 31, 2025 16:55
--- NOTE | 2025-01-31 16:56 | DVHPN2 ---
Consult Progress Note Date Seen: Jan 28, 2025 Subjective Patient reports: Other (tolerating dialysis , getting wound care and has a rectal tube in place with dark liquid stools . no signs of bleeding . has a deep tissue injury with necrotic scar tissue ) Objective vital signs Vital Sign Date Time Temp Pulse Resp B/P (MAP) Pulse Ox O2 Delivery O2 Flow Rate FiO2 01/31/25 16:13 111 19 133/64 (87) 94 30 01/31/25 06:00 Mechanical Ventilator+ 01/31/25 00:00 98.5 98.5 01/29/25 20:00 2 Total Intake and Output 01/30/25 01/30/25 01/31/25 15:00 23:00 07:00 Intake Total 669 ml 671 ml 537 ml Output Total 275 ml 525 ml Balance 669 ml 396 ml 12 ml medications Current Medications Medications Dose Ordered Sig/Zaria Route Start Time Stop Time Status Last Admin Dose Admin Famotidine 20 mg Q12HR IV 01/07/25 10:00 UNV Diagnostic Test (Pha) 1 strip IQ4HR 01/07/25 08:00 Cancel Calcium Gluconate/ Sodium Chloride 50 ml @ 100 mls/hr Q30M IV 01/08/25 17:30 01/08/25 18:29 Cancel Pantoprazole Sodium 40 mg BID IV 01/10/25 10:00 01/31/25 10:39 40 MG Midazolam HCl 50 ml @ 1 mls/hr Q24H IV 01/24/25 04:00 01/31/25 13:18 1 MLS/HR Fentanyl Citrate 250 ml @ 2.5 mls/hr Q24H IV 01/24/25 04:00 01/31/25 08:36 15 MLS/HR Norepinephrine Bitartrate 250 ml @ 3.75 mls/hr Q24H IV 01/24/25 04:30 01/29/25 09:52 3.75 MLS/HR Sodium Chloride 10 ml QSHIFT@10,22 IV 01/24/25 22:00 01/31/25 10:45 10 ML Nystatin 1 applic BID TOP 01/24/25 22:00 01/31/25 10:46 1 APPLIC Diagnostic Test (Pha) 1 strip Q4HR 01/26/25 14:00 UNV Furosemide 40 mg BID IV 01/28/25 22:00 01/31/25 10:40 40 MG Amino Acid Protein 30 ml TIDWM PO 01/28/25 18:00 01/31/25 12:00 30 ML Enteral Nutritional Formula 1,000 ml 30ML/HR GT 01/29/25 18:15 01/30/25 20:35 1,000 ML Metoclopramide HCl 5 mg Q8HR IV 01/30/25 14:00 01/31/25 15:50 5 MG Potassium Chloride 100 ml @ 50 mls/hr Q2H IV 01/31/25 13:45 01/31/25 17:44 Vancomycin HCl 0 ml @ 0 mls/hr UD IV 01/31/25 14:30 Diagnostic Test (Pha) 1 strip IQ4HR 01/31/25 16:00 Insulin Human Regular IQ4HR SC 01/31/25 16:00 Dextrose 50 ml UD PRN IV 01/31/25 14:45 laboratory and microbiology Laboratory Tests 01/31/25 04:41 Test 01/31/25 04:41 Range/Units Serum Glucose 240 H 74-106 mg/dL Problem List/Assessment/Plan Problems(with codes): (1) Fluid overload (2) Gallstones (3) Gallbladder hydrops (4) History of diabetic ketoacidosis (5) Cannabinoid hyperemesis syndrome Problem List/Assessment/Plan - Acute hypoxic respiratory therapy Patient is a 44 year old with a past medical history of type 1 diabetes who presents with blood sugars of 940, altered mental status . was started on insulin drip and monitored in ICU . having respiratory distress and respiratory alkalosis . chest xray was unremarkable patient was started empirically on vancomycin and Zosyn . later developed swelling of the lips and out of concern of allergy Zosyn was stopped and switched to Aztreonam and vancomycin was stopped due to acute kidney injury and was switched to linezolid . patient has chronic bilateral foot wounds with no new ulcers , malnourished . both feet ulcers are on the planar surface with a necrotic planar base, on the right foot it looks newer with mild drainage. Currently tolerating antibiotics whitecount is 18.6 , creatinine is 2.24 and patient is on minimal vent and no requiring any presser support . microbiology cultures and respiratory cultures are negative . foot wound was swabbed and is growing MSSA and enterococcus facialis. unclear sensitivities . 01/18: growing MSSA and enterococcus that is sensitive to ampicillin and vancomycin . whitecount is at 21.6. 01/19: whitecount is 19.1 . blood sugars are more controlled . underwent MRI of feet bilaterally and no signs of osteomyelitis , only cellulitis 01/20: switched from aztreonam to cefepime and fluconazole because of candidal infection of the groin which is alse a concer for persistly elevated leukocytosis and ongoing visible cellulitis 01/21: worsening RADHA , may have to stop vancomycin early 01/22: Worsening RADHA , likely edema in the lungs . vancomycin troths was 19.3 on the higher end of normal 01/23: Chest xray shows worsening multifocal pneumonia , patient is also having worsening RADHA 01/24: Chest xray continues to show worsening multifocal pneumonia , worsening leukocytosis and levofed needs consistent with new pneumonia resulting in septic shock or volume overload 01/25: preliminary sputum culture shows mucus threads , no organisms , no growth . respiratory cultures show no growth . chest xray shows multifocal pneumonia , worse from prior . hemoglobin is at 7.5 01/26: whitecount at 12.8 , required blood transfusion for hemoglobin 6.2 . unclear where patient is having bleeding 01/27: preliminary urine and respiratory cultures are no growth to date . whitecount now at 11. Chest xray shows bilateral airspace disease in the right upper quadral ultrasound shows hepatomegaly with coarsened echo texture which could be seen in setting of liver disease fibrosis 01/28: whitecount down to normal , suspect infection is largely resolving Plan : - defer to primary team regarding plan for diuresis in setting of possible volume overload and anemia workup otherwise suspect volume overload is etiology largely contributing to patients ongoing hypoxia - Continue IV linezolid and topical nystatin 2x a day for growing fungal infection - continue cefepime - agree with urine culture to evaluate for UTI in setting of RADHA and jones use - if hypotension or hypoxia worsen start meropenem empirically - f/u on any plural studies done , so far not consistent with parapneumonic pneumonia - if patient continues to have signs of infection will consider acquiring a ct of lower extremities bilaterally to evaluate for unseen abscess or osteomyelitis but can hold off for now - defer DKA management to primary care team - defer management of vent support to keep O2 sats above 95% to background check coordinator team - f/u on pending blood cultures Authorized and Performed by: Lizzy Roland Total critical care time: Approximately 76 minutes Due to a high probability of clinically significant, life threatening deterioration, the patient required my highest level of preparedness to intervene emergently and I personally spent this critical care time directly and personally managing the patient. This critical care time included obtaining a history; examining the patient; pulse oximetry; ordering and review of studies; arranging urgent treatment with development of a management plan; evaluation of patient's response to treatment; frequent reassessment; and, discussions with other providers. This critical care time was performed to assess and manage the high probability of imminent, life-threatening deterioration that could result in multi-organ failure. It was exclusive of separately billable procedures and treating other patients and teaching time. Plan discussed with: Other Dietary Evaluation Review Recommendations by RD: Increase Calorie Intake Comments: Nutrition Recommendation: 1) Vital AF 1.2Cal @ 25ml/hr along with Pro-stat 1 pk BID. start @ 20ml/hr, increase 10ml/hr Q4H until goal is reached. TF @ goal volume along with propofol, IV D5wNS0.45%, and Pro-stat provides 1684 kcal (100% energy needs), 75gm protein (100% protein needs), 487ml free water. 2) TPN to meet 75% estimated needs if remains NPO 3) Bryce 1 pk BID for DFU Expected Outcomes/Goals: DFU to improve To maintain/gain weight To meet at least 75% estimated needs Fu 2-3 days Interpretation of weight loss: up to 5% in 1 month Muscle Mass (Severe): Mod to Severe Depletion Protein Calorie Malnutrition: Non-Severe Is there a minimum of two crit: Yes LIZZY ROLAND MD Jan 31, 2025 16:55
[2025-01-31] MEDS ORDERED: VANCOMYCIN 1GM/200ML PM 200 ML IV ONE (17:00)
--- NOTE | 2025-01-31 17:25 | DVHPN2 ---
Consult Progress Note Date Seen: Jan 29, 2025 Subjective Patient reports: Other (continues to have high rectal tube output , hemoglobin has dropped to 6.6 and gettign a blood transfusion . no open wounds . platelets are at 100 however they are downtrending ) Objective vital signs Vital Sign Date Time Temp Pulse Resp B/P (MAP) Pulse Ox O2 Delivery O2 Flow Rate FiO2 01/31/25 16:13 111 19 133/64 (87) 94 30 01/31/25 06:00 Mechanical Ventilator+ 01/31/25 00:00 98.5 98.5 01/29/25 20:00 2 Total Intake and Output 01/30/25 01/30/25 01/31/25 15:00 23:00 07:00 Intake Total 669 ml 671 ml 537 ml Output Total 275 ml 525 ml Balance 669 ml 396 ml 12 ml medications Current Medications Medications Dose Ordered Sig/Zaira Route Start Time Stop Time Status Last Admin Dose Admin Famotidine 20 mg Q12HR IV 01/07/25 10:00 UNV Diagnostic Test (Pha) 1 strip IQ4HR 01/07/25 08:00 Cancel Calcium Gluconate/ Sodium Chloride 50 ml @ 100 mls/hr Q30M IV 01/08/25 17:30 01/08/25 18:29 Cancel Pantoprazole Sodium 40 mg BID IV 01/10/25 10:00 01/31/25 10:39 40 MG Midazolam HCl 50 ml @ 1 mls/hr Q24H IV 01/24/25 04:00 01/31/25 13:18 1 MLS/HR Fentanyl Citrate 250 ml @ 2.5 mls/hr Q24H IV 01/24/25 04:00 01/31/25 08:36 15 MLS/HR Norepinephrine Bitartrate 250 ml @ 3.75 mls/hr Q24H IV 01/24/25 04:30 01/29/25 09:52 3.75 MLS/HR Sodium Chloride 10 ml QSHIFT@10,22 IV 01/24/25 22:00 01/31/25 10:45 10 ML Nystatin 1 applic BID TOP 01/24/25 22:00 01/31/25 10:46 1 APPLIC Diagnostic Test (Pha) 1 strip Q4HR 01/26/25 14:00 UNV Furosemide 40 mg BID IV 01/28/25 22:00 7/11/25 10:40 40 MG Amino Acid Protein 30 ml TIDWM PO 01/28/25 18:00 01/31/25 12:00 30 ML Enteral Nutritional Formula 1,000 ml 30ML/HR GT 01/29/25 18:15 01/30/25 20:35 1,000 ML Metoclopramide HCl 5 mg Q8HR IV 01/30/25 14:00 01/31/25 15:50 5 MG Potassium Chloride 100 ml @ 50 mls/hr Q2H IV 01/31/25 13:45 01/31/25 17:44 Vancomycin HCl 0 ml @ 0 mls/hr UD IV 01/31/25 14:30 Diagnostic Test (Pha) 1 strip IQ4HR 01/31/25 16:00 Insulin Human Regular IQ4HR SC 01/31/25 16:00 Dextrose 50 ml UD PRN IV 01/31/25 14:45 laboratory and microbiology Laboratory Tests 01/31/25 04:41 Test 01/31/25 04:41 Range/Units Serum Glucose 240 H 74-106 mg/dL Problem List/Assessment/Plan Problems(with codes): (1) Appendicolith (2) Inadequate oral intake (3) Intractable abdominal pain (4) Cannabinoid hyperemesis syndrome (5) History of diabetic ketoacidosis (6) Gallbladder hydrops (7) Gallstones (8) Fluid overload Problem List/Assessment/Plan - Acute hypoxic respiratory therapy Patient is a 44 year old with a past medical history of type 1 diabetes who presents with blood sugars of 940, altered mental status . was started on insulin drip and monitored in ICU . having respiratory distress and respiratory alkalosis . chest xray was unremarkable patient was started empirically on vancomycin and Zosyn . later developed swelling of the lips and out of concern of allergy Zosyn was stopped and switched to Aztreonam and vancomycin was stopped due to acute kidney injury and was switched to linezolid . patient has chronic bilateral foot wounds with no new ulcers , malnourished . both feet ulcers are on the planar surface with a necrotic planar base, on the right foot it looks newer with mild drainage. Currently tolerating antibiotics whitecount is 18.6 , creatinine is 2.24 and patient is on minimal vent and no requiring any presser support . microbiology cultures and respiratory cultures are negative . foot wound was swabbed and is growing MSSA and enterococcus facialis. unclear sensitivities . 01/18: growing MSSA and enterococcus that is sensitive to ampicillin and vancomycin . whitecount is at 21.6. 01/19: whitecount is 19.1 . blood sugars are more controlled . underwent MRI of feet bilaterally and no signs of osteomyelitis , only cellulitis 01/20: switched from aztreonam to cefepime and fluconazole because of candidal infection of the groin which is alse a concer for persistly elevated leukocytosis and ongoing visible cellulitis 01/21: worsening RADHA , may have to stop vancomycin early 01/22: Worsening RADHA , likely edema in the lungs . vancomycin troths was 19.3 on the higher end of normal 01/23: Chest xray shows worsening multifocal pneumonia , patient is also having worsening RADHA 01/24: Chest xray continues to show worsening multifocal pneumonia , worsening leukocytosis and levofed needs consistent with new pneumonia resulting in septic shock or volume overload 01/25: preliminary sputum culture shows mucus threads , no organisms , no growth . respiratory cultures show no growth . chest xray shows multifocal pneumonia , worse from prior . hemoglobin is at 7.5 01/26: whitecount at 12.8 , required blood transfusion for hemoglobin 6.2 . unclear where patient is having bleeding 01/27: preliminary urine and respiratory cultures are no growth to date . whitecount now at 11. Chest xray shows bilateral airspace disease in the right upper quadral ultrasound shows hepatomegaly with coarsened echo texture which could be seen in setting of liver disease fibrosis 01/28: whitecount down to normal , suspect infection is largely resolving 01/29:platelet drop likely related to linezolid use , if it drops under 100 would stop linezolid and switch to vancomycin Plan : - defer to primary team regarding plan for diuresis in setting of possible volume overload and anemia workup otherwise suspect volume overload is etiology largely contributing to patients ongoing hypoxia - Continue IV linezolid and topical nystatin 2x a day for growing fungal infection - continue cefepime - agree with urine culture to evaluate for UTI in setting of RADHA and jones use - if hypotension or hypoxia worsen start meropenem empirically - f/u on any plural studies done , so far not consistent with parapneumonic pneumonia - if patient continues to have signs of infection will consider acquiring a ct of lower extremities bilaterally to evaluate for unseen abscess or osteomyelitis but can hold off for now - defer DKA management to primary care team - defer management of vent support to keep O2 sats above 95% to correctional nurse team - f/u on pending blood cultures Authorized and Performed by: Lizzy Roland Total critical care time: Approximately 76 minutes Due to a high probability of clinically significant, life threatening deterioration, the patient required my highest level of preparedness to intervene emergently and I personally spent this critical care time directly and personally managing the patient. This critical care time included obtaining a history; examining the patient; pulse oximetry; ordering and review of studies; arranging urgent treatment with development of a management plan; evaluation of patient's response to treatment; frequent reassessment; and, discussions with other providers. This critical care time was performed to assess and manage the high probability of imminent, life-threatening deterioration that could result in multi-organ failure. It was exclusive of separately billable procedures and treating other patients and teaching time. Plan discussed with: Other Dietary Evaluation Review Recommendations by RD: Increase Calorie Intake Comments: Nutrition Recommendation: 1) Vital AF 1.2Cal @ 25ml/hr along with Pro-stat 1 pk BID. start @ 20ml/hr, increase 10ml/hr Q4H until goal is reached. TF @ goal volume along with propofol, IV D5wNS0.45%, and Pro-stat provides 1684 kcal (100% energy needs), 75gm protein (100% protein needs), 487ml free water. 2) TPN to meet 75% estimated needs if remains NPO 3) Bryce 1 pk BID for DFU Expected Outcomes/Goals: DFU to improve To maintain/gain weight To meet at least 75% estimated needs Fu 2-3 days Interpretation of weight loss: up to 5% in 1 month Muscle Mass (Severe): Mod to Severe Depletion Protein Calorie Malnutrition: Non-Severe Is there a minimum of two crit: Yes LIZZY ROLAND MD Jan 31, 2025 17:25
--- NOTE | 2025-01-31 20:36 | DVHPN2 ---
Progress Note Date Seen: Jan 31, 2025 Medical Necessity Reason Pt with a Central, PICC or Fol: No The following are medically ne: Jones Catheter Reason for jones catheter: Strict I&O Subjective Patient reports: Other (intubated) Review of Systems: Deferred Objective vital signs Vital Sign Date Time Temp Pulse Resp B/P (MAP) Pulse Ox O2 Delivery O2 Flow Rate FiO2 01/31/25 19:59 108 21 123/61 (81) 100 30 01/31/25 16:00 98.5 98.5 01/31/25 06:00 Mechanical Ventilator+ 01/29/25 20:00 2 Total Intake and Output 01/30/25 01/30/25 01/31/25 14:59 22:59 06:59 Intake Total 669 ml 671 ml 537 ml Output Total 275 ml 525 ml Balance 669 ml 396 ml 12 ml medications Current Medications Medications Dose Ordered Sig/Zaria Route Start Time Stop Time Status Last Admin Dose Admin Famotidine 20 mg Q12HR IV 01/07/25 10:00 UNV Diagnostic Test (Pha) 1 strip IQ4HR 01/07/25 08:00 Cancel Calcium Gluconate/ Sodium Chloride 50 ml @ 100 mls/hr Q30M IV 01/08/25 17:30 01/08/25 18:29 Cancel Pantoprazole Sodium 40 mg BID IV 01/10/25 10:00 01/31/25 10:39 40 MG Midazolam HCl 50 ml @ 1 mls/hr Q24H IV 01/24/25 04:00 01/31/25 19:35 8 MLS/HR Fentanyl Citrate 250 ml @ 2.5 mls/hr Q24H IV 01/24/25 04:00 01/31/25 08:36 15 MLS/HR Norepinephrine Bitartrate 250 ml @ 3.75 mls/hr Q24H IV 01/24/25 04:30 01/29/25 09:52 3.75 MLS/HR Sodium Chloride 10 ml QSHIFT@10,22 IV 01/24/25 22:00 01/31/25 10:45 10 ML Nystatin 1 applic BID TOP 01/24/25 22:00 01/31/25 10:46 1 APPLIC Diagnostic Test (Pha) 1 strip Q4HR 01/26/25 14:00 UNV Furosemide 40 mg BID IV 01/28/25 22:00 01/31/25 10:40 40 MG Amino Acid Protein 30 ml TIDWM PO 01/28/25 18:00 01/31/25 18:35 30 ML Enteral Nutritional Formula 1,000 ml 30ML/HR GT 01/29/25 18:15 01/30/25 20:35 1,000 ML Metoclopramide HCl 5 mg Q8HR IV 01/30/25 14:00 01/31/25 15:50 5 MG Vancomycin HCl 0 ml @ 0 mls/hr UD IV 01/31/25 14:30 Cancel Diagnostic Test (Pha) 1 strip IQ4HR 01/31/25 16:00 01/31/25 16:20 1 STRIP Insulin Human Regular IQ4HR SC 01/31/25 16:00 01/31/25 16:20 3 UNITS Dextrose 50 ml UD PRN IV 01/31/25 14:45 Examination: GENERAL:Abnormal, LUNGS:Abnormal, MSK:Abnormal, SKIN:Abnormal, NEURO:Abnormal laboratory and microbiology Laboratory Tests 01/31/25 04:41 Test 01/31/25 04:41 Range/Units Serum Glucose 240 H 74-106 mg/dL Microbiology Date/Time Source Procedure Growth Status 01/26/25 08:46 Urine - Jones [place] Urine Culture - Final Complete 01/24/25 04:15 Sputum Gram Stain - Final Complete 01/24/25 04:15 Sputum Respiratory Culture - Final Complete 01/23/25 20:30 Pleural Fluid Gram Stain - Final Complete 01/23/25 20:30 Pleural Fluid Body Fluid Culture - Final Complete 01/19/25 16:06 Nose MRSA Screen - Final Complete 01/16/25 19:00 Blood Blood Culture - Final NO GROWTH AFTER 5 DAYS OF INCUBATION. Complete 01/08/25 10:37 Stool Stool Culture - Final Complete 01/08/25 10:37 Stool Shiga Toxin I & II - Final Complete Problem List/Assessment/Plan Problem List/Assessment/Plan Acute kidney injury superimposed Chronic Kidney Disease stage IIIB secondary hemodynamic mediated ATN, FeNa > 2% - needing dialysis Acute hypoxic respiratory failure, patient extubated and then reintubated Hypernatremia due to dehydration Hypocalcemia Hypomagnesemia Hypokalemia Anemia of chronic kidney disease Recommendations Hemodialysis 01/31 Continue diuretics--increase dose continue HD as uop less on diuretics d/w parents 4k bath as k low Plan discussed with: Other My Orders My Orders Orders - VIDHYA NEVES MD Procedure Category Date Status Time Hemodialysis Orders ORDERS 01/31/25 Transmitted 11:30 Dietary Evaluation Review Recommendations by RD: Increase Calorie Intake Comments: Nutrition Recommendation: 1) Vital AF 1.2Cal @ 25ml/hr along with Pro-stat 1 pk BID. start @ 20ml/hr, increase 10ml/hr Q4H until goal is reached. TF @ goal volume along with propofol, IV D5wNS0.45%, and Pro-stat provides 1684 kcal (100% energy needs), 75gm protein (100% protein needs), 487ml free water. 2) TPN to meet 75% estimated needs if remains NPO 3) Bryce 1 pk BID for DFU Expected Outcomes/Goals: DFU to improve To maintain/gain weight To meet at least 75% estimated needs Fu 2-3 days Interpretation of weight loss: up to 5% in 1 month Muscle Mass (Severe): Mod to Severe Depletion Protein Calorie Malnutrition: Non-Severe Is there a minimum of two crit: Yes VIDHYA NEVES MD Jan 31, 2025 20:36
[2025-02-01] VITALS (106 sets, daily range): BP systolic 106–154; BP diastolic 46–86; PULSE 103–142; RESP 12–35; TEMP 97.7–99.5; O2SAT 90–100
[2025-02-01 04:53] LABS: Hematocrit 23.9 % (41.0-53.0); Hemoglobin 7.7 g/dL (13.5-17.5); Mean Corpuscular Hemoglobin 25.6 pg (28.0-32.0); Mean Corpuscular Volume 79.3 fL (80.0-100.0); Nucleated Red Blood Cells % 0.6 %
[2025-02-01 05:10] LABS: Anion Gap 10 (5-15); BUN/Creatinine Ratio 11.5 (10.0-20.0); Carbon Dioxide 25 mmol/L (20-31); Chloride 101 mmol/L (98-107); Magnesium 1.7 mg/dL (1.6-2.6); Sodium 136 mmol/L (136-145)
[2025-02-01 05:12] LABS: Alanine Aminotransferase < 9 U/L (7-40); Albumin 2.2 g/dL (3.2-4.8); Bilirubin, Total 4.0 mg/dL (0.2-1.0); Blood Urea Nitrogen 23 mg/dL (9-23); Calcium 7.9 mg/dL (8.7-10.4); Glucose 194 mg/dL (74-106); Potassium 2.9 mmol/L (3.5-5.1); Total Protein 4.9 g/dL (5.7-8.2)
[2025-02-01 05:20] LABS: Alkaline Phosphatase > 2300 U/L (46-116)
--- NOTE | 2025-02-01 06:17 | DVH ---
CHEST RADIOGRAPH Indication: effusions Technique: Single frontal view of the chest was obtained COMPARISON: XY CHEST PORTABLE on DOS: 01/31/25, XY CHEST PORTABLE on DOS: 01/30/25, XY CHEST PORTABLE o n DOS: 01/29/25, XY CHEST PORTABLE on DOS: 01/28/25, XY CHEST PORTABLE on DOS: 01/27/25 FINDINGS: Lines and Tubes: Endotracheal tube, enteric catheter and right central venous catheter in satisfactor y position. Right PICC in satisfactory position. Lungs: Multifocal airspace disease Pleura: No effusion. No pneumothorax. Cardiomediastinal contours: Unremarkable Bones: Unremarkable IMPRESSION: Lines and tubes in satisfactory position. No significant interval change.
[2025-02-01] MEDS: MAGNESIUM SULFATE 1GM/100ML 100 ML IV ONE (06:19)
[2025-02-01] MEDS: POTASSIUM CHL 20MEQ/100ML 100 ML IV ONE (06:19)
[2025-02-01 07:29] LABS: Base Excess -0.2 mmol/L (-2.0-3.0)
--- NOTE | 2025-02-01 08:27 | DVHPN2 ---
Progress Note Date Seen: Feb 01, 2025 Medical Necessity Reason Pt with a Central, PICC or Fol: No The following are medically ne: Jones Catheter Reason for jones catheter: Strict I&O Subjective Patient reports: Other (intubated) Review of Systems: Deferred Objective vital signs Vital Sign Date Time Temp Pulse Resp B/P (MAP) Pulse Ox O2 Delivery O2 Flow Rate FiO2 02/01/25 07:30 108 19 133/67 (89) 96 02/01/25 06:35 30 02/01/25 06:00 Mechanical Ventilator+ 02/01/25 04:00 99.5 99.5 Total Intake and Output 01/31/25 01/31/25 02/01/25 15:00 23:00 07:00 Intake Total 634 ml 849.0 ml 504.0 ml Output Total 2675 ml 225 ml Balance 634 ml -1826.0 ml 279.0 ml medications Current Medications Medications Dose Ordered Sig/Zaria Route Start Time Stop Time Status Last Admin Dose Admin Famotidine 20 mg Q12HR IV 01/07/25 10:00 UNV Diagnostic Test (Pha) 1 strip IQ4HR 01/07/25 08:00 Cancel Calcium Gluconate/ Sodium Chloride 50 ml @ 100 mls/hr Q30M IV 01/08/25 17:30 01/08/25 18:29 Cancel Pantoprazole Sodium 40 mg BID IV 01/10/25 10:00 01/31/25 21:21 40 MG Midazolam HCl 50 ml @ 1 mls/hr Q24H IV 01/24/25 04:00 02/01/25 06:30 8 MLS/HR Fentanyl Citrate 250 ml @ 2.5 mls/hr Q24H IV 01/24/25 04:00 01/31/25 23:44 17.5 MLS/HR Norepinephrine Bitartrate 250 ml @ 3.75 mls/hr Q24H IV 01/24/25 04:30 01/29/25 09:52 3.75 MLS/HR Sodium Chloride 10 ml QSHIFT@10,22 IV 01/24/25 22:00 01/31/25 21:21 10 ML Nystatin 1 applic BID TOP 01/24/25 22:00 01/31/25 21:22 1 APPLIC Diagnostic Test (Pha) 1 strip Q4HR 01/26/25 14:00 UNV Furosemide 40 mg BID IV 01/28/25 22:00 01/31/25 10:40 40 MG Amino Acid Protein 30 ml TIDWM PO 01/28/25 18:00 01/31/25 18:35 30 ML Enteral Nutritional Formula 1,000 ml 30ML/HR GT 01/29/25 18:15 02/01/25 03:40 1,000 ML Metoclopramide HCl 5 mg Q8HR IV 01/30/25 14:00 02/01/25 06:19 5 MG Vancomycin HCl 0 ml @ 0 mls/hr UD IV 01/31/25 14:30 Cancel Diagnostic Test (Pha) 1 strip IQ4HR 01/31/25 16:00 02/01/25 08:25 1 STRIP Insulin Human Regular IQ4HR SC 01/31/25 16:00 02/01/25 08:24 3 UNITS Dextrose 50 ml UD PRN IV 01/31/25 14:45 Examination: GENERAL:Abnormal, LUNGS:Abnormal, MSK:Abnormal, NEURO:Abnormal laboratory and microbiology Laboratory Tests 02/01/25 04:40 Test 02/01/25 04:40 Range/Units Serum Glucose 194 H 74-106 mg/dL Microbiology Date/Time Source Procedure Growth Status 01/26/25 08:46 Urine - Jones Port Urine Culture - Final Complete 01/24/25 04:15 Sputum Gram Stain - Final Complete 01/24/25 04:15 Sputum Respiratory Culture - Final Complete 01/23/25 20:30 Pleural Fluid Gram Stain - Final Complete 01/23/25 20:30 Pleural Fluid Body Fluid Culture - Final Complete 01/19/25 16:06 Nose MRSA Screen - Final Complete 01/16/25 19:00 Blood Blood Culture - Final NO GROWTH AFTER 5 DAYS OF INCUBATION. Complete 01/08/25 10:37 Stool Stool Culture - Final Complete 01/08/25 10:37 Stool Shiga Toxin I & II - Final Complete Problem List/Assessment/Plan Problem List/Assessment/Plan Acute kidney injury superimposed Chronic Kidney Disease stage IIIB secondary hemodynamic mediated ATN, FeNa > 2% - needing dialysis Acute hypoxic respiratory failure, patient extubated and then reintubated Hypernatremia due to dehydration Hypocalcemia Hypomagnesemia Hypokalemia Anemia of chronic kidney disease Recommendations Hemodialysis 01/31 next dialysis on Monday versus Josh Continue diuretics-- continue HD as uop less on diuretics prn k replace Plan discussed with: Other My Orders My Orders Orders - VIDHYA NEVES MD Procedure Category Date Status Time Hemodialysis Orders ORDERS 01/31/25 Transmitted 11:30 Dietary Evaluation Review Recommendations by RD: Increase Calorie Intake Comments: Nutrition Recommendation: 1) Vital AF 1.2Cal @ 25ml/hr along with Pro-stat 1 pk BID. start @ 20ml/hr, increase 10ml/hr Q4H until goal is reached. TF @ goal volume along with propofol, IV D5wNS0.45%, and Pro-stat provides 1684 kcal (100% energy needs), 75gm protein (100% protein needs), 487ml free water. 2) TPN to meet 75% estimated needs if remains NPO 3) Bryce 1 pk BID for DFU Expected Outcomes/Goals: DFU to improve To maintain/gain weight To meet at least 75% estimated needs Fu 2-3 days Interpretation of weight loss: up to 5% in 1 month Muscle Mass (Severe): Mod to Severe Depletion Protein Calorie Malnutrition: Non-Severe Is there a minimum of two crit: Yes VIDHYA NEVES MD Feb 01, 2025 08:27
--- NOTE | 2025-02-01 11:32 | DVHPN2 ---
Subjective Patient is a 44-year-old male with known history of type 1 diabetes mellitus who presented on 01/06/2025 via EMS for altered level of consciousness. Per EMS, the patient was found unresponsive with a blood glucose of 931 and received 400 cc IV fluids on route. On arrival he exhibited hypoxia, generalized weakness, increased work of breathing necessitating intubation and mechanical ventilation. Patient was started on IV insulin drip, Zosyn and vancomycin with bicarbonate for severe acidosis. A right femoral central line, midline and peripheral IVs were also placed. Of note, patient has a history of poor adherence to his insulin therapy. Per patient's father, patient lives alone in a trailer and had not been heard from since 01/02/2025. Patient was last hospitalized at the [facility] in November 2024 for DKA. On 01/07/2025, patient developed lip swelling while still intubated, chart review revealed a penicillin allergy. Zosyn was discontinued and patient was treated with methylprednisolone and transitioned to meropenem. Nephrology was consulted for RADHA and hypernatremia. A 01/10/2025, patient had begun to improve and was weaned off sedation and was extubated on 01/12/2025 and transferred telemetry. Antibiotics were discontinued at that time due to uncertainty about the cause of leukocytosis (steroids versus infection). However, WBCs continued to trend upwards and the patient developed low-grade fevers, subsequently restarted on linezolid and aztreonam. Patient has bilateral diabetic foot ulcers, left side more advanced than right. MRI of bilateral extremities shows mild subcutaneous edema, possibly cellulitis but no signs of osteomyelitis. Patient was also noted to have a pressure related ulcer to the left heel. Lower extremity arterial Doppler showed no significant stenosis. Vascular surgery evaluated the ulcers but recommended no interventions at this time. Podiatry already on board. 01/20/2025: Held insulin Lantus, discontinued lispro, mild sliding scale q.4 hours only. Started IV fluconazole for candidal infection in the groin. Podiatry reconsulted for evaluation of bilateral lower extremity ulcers. GI consult for anemia and positive stool occult blood. Discontinued linezolid and aztreonam, started on cefepime, vancomycin and metronidazole. 01/21/25: notes improved but continued nausea, new onset abdominal pain 9-10/10, localized to mid abdomen. Patient refused MRI owing to abdominal pain, we will reattempt tomorrow. Added metoclopramide qD along with norco and morphine as needed. Blood glucose in 290s, resumed lantus 7units qAM, however, dropping blood sugar by 4pm therefore discontinued lantus again. Pt refuses to eat and has severe aversion to food 01/22/25: improved abdominal pain today -01/30, agreeable to CT abdomen however still refusing MRI L foot. Plan to reattempt tomorrow. new moderate R sided hydronephrosis noted, urology consulted. denies dyspnea, sob. improving nausea. 01/23/2025: Patient notes feeling weaker than yesterday, denies abdominal pain. On physical exam decreased breath sounds more prominent on the left side and some crackles bibasilar. Discontinued vancomycin and started patient on daptomycin. Repeated left foot MRI which showed cellulitis in the lateral 4 for deep to the 5th metatarsal bone marrow wound is noted with overlying dressing, no evidence of osteomyelitis. IV furosemide was increased to 40 mg b.i.d. and patient was transferred to D [facility]. 01/24/2025: Overnight patient was intubated due to increasing respiratory distress, patient also underwent thoracentesis with 900 mL of fluid removed on the left side. For starvation/diabetic ketoacidosis, patient was started on an insulin drip and D10, gap was closed and bicarb was stabilized at 20. Blood glucose was 100 with a insulin drip was stopped, patient was started on D5 water at 50 cc/hours. Nephrology increased IV Lasix to 80 mg b.i.d. along with plan for renal replacement therapy tentatively in the p.m.. 01/25/2025- patient received right IJ Dean cath HD cath yesterday. Dialysis done 1 L removed. Today patient continues to have right upper extremity edema 2+. Left upper extremity is restricted has trace pitting edema and restricted due to history of DVT. Patient also has 1 to trace pedal edema bilaterally. Up to mid shins. Patient is not requiring any vasopressors. Patient is ventilated and due to acute hypoxic respiratory failure. Patient has no p.o. intake due to large gastric bubble and possible gastroparesis from prolonged uncontrolled diabetes. We will do TPN via PICC line now and hold off any enteral feeds. Continue IV antibiotics. Patient is anemic less than 7, 1 unit PRBC. Tentative plan to get EPO with HD, which may help. No sources of obvious hemorrhage. We are continuing D5 W for hypernatremia. We will do some education vacation today and if goes well possible CPAP trials tomorrow. We will continue sliding scale insulin Q 2. Patient antibiotics IV is linezolid only. 01/26/2025-no dialysis today. No lower extremity edema. Right upper extremity edema looks improved. Today doing sedation vacation and CPAP trial. Some electrolyte abnormalities not concerning nephrology reviewed. Patient on dialysis but still makes some urine 150 dark brown color. Patient is getting broad-spectrum antibiotics. Clinimix. Sedation vacation but otherwise patient was on Versed and fentanyl. Heart rate upper end of normal in the 100s. Blood pressure stable. No vasopressors. We will decrease Accu-Cheks to q.4. Decrease D5 to 30, being used for recurrent hypoglycemia. Otherwise continue primary team's plan. 01/27/2025: Patient seen and examined at bedside. Noted to have fluid overload, severe scrotal swelling, 2+ lower extremity nonpitting edema up to the thighs along with scleral edema was noted. Urine output of 325 mL in the past 24 hours. Undergoing dialysis today. Had an apneic episode during CPAP trial on 01/26/2025. 01/28/2025: Patient seen and examined at bedside. Minimal improvement in edema, s/p dialysis yesterday on 01/27/2025. Continues to have nonpitting edema up to knees along with scleral and scrotal edema. Jaundiced appearance noted. 01/29/25: Patient seen and examined at bedside. improved UOP since yesterday, worsening inspiratory crackles and LE edema. completed dialysis today, required 4mcg/hr of norepinephrine during dialysis. noted to have scabbed lesions on the penis. 01/30/2025: Patient seen and examined at bedside, improved lower extremity edema. Detailed discussions held with patient's parents at bedside. 01/31/2025: Patient seen and examined [place] [id number] [place]. Discontinued linezolid today on day 8 of treatment, started IV vancomycin per pharmacy after approval from Nephrology to have the dose timed with dialysis sessions. Repleted potassium with 40 mEq KCl rider. Urine output 100 mL in the last 24 hours, 700 mL of stool output via rectal tube. 02/01/25 patient remains intubated. Sedated. Sedation includes fentanyl 175 Versed 8. Continues to getting IV antibiotics broad-spectrum. Patient on ventilator a.c. 18/450/30%/5.0. Fecal tube with liquid output. Owens scant urine dark brown. Left upper extremity with pitting edema, dry other extremities. Tachycardic 114 sinus tachycardia. Continue primary team's plan of IV antibiotics, ongoing bilateral effusions, continuing dialysis with Nephrology. Platelets stable.. We will continue primary team's plan. No changes today. Reviewed: Care Plan, H&P, Labs, Medications, Previous Orders, Radiology Changes from previous H/P or p: No Changes General: Per HPI Eyes: No Pain, No Vision change, No Conjunctivae inflammation, No Eyelid inflammation, No Other, No Redness ENT: No Ear pain, No Ear discharge, No Nose pain, No Nose discharge, No Nose congestion, No Mouth pain, No Mouth swelling, No Throat pain, No Throat swelling, No Other Cardiovascular: No Chest Pain, No Palpitations, No Orthopnea, No Paroxysmal Noc. Dyspnea, No Edema, No Lt Headedness, No Other Respiratory: No Cough, No Dry, No Shortness of breath, No SOB with excertion, No Wheezing, No Hemoptysis, No Pleuritic Pain, No Sputum, No Other Gastrointestinal: No Nausea, No Vomiting, No Abdominal Pain, No Diarrhea, No Constipation, No Melena, No Hematochezia, No Other Genitourinary: No Dysuria, No Frequency, No Incontinence, No Hematuria, No Retention; Other (Owens catheter in place) Musculoskeletal: No other, No neck pain, No shoulder pain, No arm pain, No back pain, No hand pain, No leg pain, No foot pain Skin: No Rash, No Lesions, No Jaundice, No Bruising, No Other Objective Vitals Vital Signs Date Time Temp Pulse Resp B/P (MAP) Pulse Ox O2 Delivery O2 Flow Rate FiO2 02/01/25 10:30 118 16 133/64 (87) 100 02/01/25 10:00 Mechanical Ventilator+ 30 30 02/01/25 08:00 99.1 99.1 Intake/Output Intake and Output 02/01/25 07:00 Intake Total 1987.0 ml Output Total 2900 ml Balance -913.0 ml Intake Oral 170 ml IV Total 1227.0 ml Tube Feeding 590 ml Output Urine Total 95 ml Stool Total 305 ml Other 2500 ml Exam General Appearance: Intubated and sedated. Malnourished, in mild distress. Jaundiced Head Exam: Normal inspection. No vision in right eye, decreased vision in left eye, minimally reactive pupils. Scleral edema Pulmonary/Respiratory: Chest non-tender. decreased bilateral breath sounds, no crackles, no wheezing. Cardiovascular/Chest: Tachycardic. No murmurs. No JVD. Abdominal Exam: Normal bowel sounds. Soft. normal abdomen, no visible veins, nontender No hepatospenomegaly. No masses Lower extremities: 2+ nonpitting lower extremity edema up to the thighs. Left heel pressure ulcer noted. Multiple diabetic foot ulcers on bilateral feet, largest 1 noted on left plantar foot with a dark black necrotic appearance Thoughts/Psych: Normal thought pattern. Appropriate mood and affect Skin Exam: improving groin lesions, redness noted along right gluteal area, scrotal swelling. General Appearance: Other (Confused and lethargic) HEENT: Atraumatic, PERRLA, EOMI, Mucous membr. moist/pink Neck: Supple Lungs: Clear to auscultation, Normal air movement Cardiovascular: Regular rate, Normal S1, Normal S2, No murmurs, Gallops, Rubs Abdomen: Normal bowel sounds, Soft, No tenderness Neuro: Other (Confused, unable to exam) Psych/Mental Status: Other (Lethargic) Medications Current Medications Medications Dose Ordered Sig/Zaria Route Start Time Stop Time Status Last Admin Dose Admin Famotidine 20 mg Q12HR IV 01/07/25 10:00 UNV Diagnostic Test (Pha) 1 strip IQ4HR 01/07/25 08:00 Cancel Calcium Gluconate/ Sodium Chloride 50 ml @ 100 mls/hr Q30M IV 01/08/25 17:30 01/08/25 18:29 Cancel Pantoprazole Sodium 40 mg BID IV 01/10/25 10:00 02/01/25 09:58 40 MG Midazolam HCl 50 ml @ 1 mls/hr Q24H IV 01/24/25 04:00 02/01/25 06:30 8 MLS/HR Fentanyl Citrate 250 ml @ 2.5 mls/hr Q24H IV 01/24/25 04:00 01/31/25 23:44 17.5 MLS/HR Norepinephrine Bitartrate 250 ml @ 3.75 mls/hr Q24H IV 01/24/25 04:30 01/29/25 09:52 3.75 MLS/HR Sodium Chloride 10 ml QSHIFT@10,22 IV 01/24/25 22:00 02/01/25 09:58 10 ML Nystatin 1 applic BID TOP 01/24/25 22:00 02/01/25 09:58 1 APPLIC Diagnostic Test (Pha) 1 strip Q4HR 01/26/25 14:00 UNV Amino Acid Protein 30 ml TIDWM PO 01/28/25 18:00 01/31/25 18:35 30 ML Enteral Nutritional Formula 1,000 ml 30ML/HR GT 01/29/25 18:15 02/01/25 03:40 1,000 ML Metoclopramide HCl 5 mg Q8HR IV 01/30/25 14:00 02/01/25 06:19 5 MG Vancomycin HCl 0 ml @ 0 mls/hr UD IV 01/31/25 14:30 Cancel Diagnostic Test (Pha) 1 strip IQ4HR 01/31/25 16:00 02/01/25 08:25 1 STRIP Insulin Human Regular IQ4HR SC 01/31/25 16:00 02/01/25 08:24 3 UNITS Dextrose 50 ml UD PRN IV 01/31/25 14:45 Ursodiol 300 mg BID NG 02/01/25 22:00 Furosemide 40 mg BIDD IV 02/01/25 18:00 Laboratory Results Laboratory Tests 02/01/25 04:40 Chemistry Test 02/01/25 04:40 Albumin 2.2 g/dL (3.2-4.8) L Calcium Level 7.9 mg/dL (8.7-10.4) L Magnesium Level 1.7 mg/dL (1.6-2.6) Phosphorus Level 2.4 mg/dL (2.4-5.1) Total Protein 4.9 g/dL (5.7-8.2) L LFT Test 02/01/25 04:40 Alanine Aminotransferase (ALT) < 9 U/L (7-40) Alkaline Phosphatase > 2300 U/L (46-116) H Aspartate Amino Transferase (AST) 43 U/L (13-40) H Total Bilirubin 4.0 mg/dL (0.2-1.0) H Urinalysis Test 01/08/25 18:27 01/10/25 11:50 01/22/25 17:30 Urine Osmolality 300 mOsm/kg Urine Creatinine 26.27 mg/dL (30.0-125.0) L Urine Protein/Creatinine Ratio 7.12 Urine Sodium 79 mmol/L (40-220) Urine Total Protein 187.1 mg/dL (1-14) H Urine Color Colorless (Yellow) Urine Clarity Turbid (Clear) H Urine pH 6.0 (5.0-9.0) Urine Specific [place] 1.011 (1.001-1.035) Urine Protein 2+ (Negative) H Urine Ketones Negative (Negative) Urine Blood 3+ /uL (Negative) H Urine Nitrite Negative (Negative) Urine Bilirubin Negative (Negative) Urine Urobilinogen Normal mg/dL (Negative) Urine Leukocyte Esterase Negative /uL (Negative) Urine RBC 702 /hpf (0 - 3) Urine Microscopic WBC < 1 /HPF (0-3) Urine Squamous Epithelial Cells Few /hpf (<5) Urine Bacteria None seen /hpf (None Seen) Urine Hyaline Casts Few /lpf (0 - 2) Urine Mucus Few (None Seen) Urine Glucose 2+ mg/dL (Normal) H Blood Gas Results Test 02/01/25 07:20 Arterial Blood pH 7.413 (7.350-7.450) FiO2 % 30.0 Microbiology Microbiology Date/Time Source Procedure Growth Status 01/26/25 08:46 Urine - [place] Urine Culture - Final Complete 01/24/25 04:15 Sputum Gram Stain - Final Complete 01/24/25 04:15 Sputum Respiratory Culture - Final Complete 01/23/25 20:30 Pleural Fluid Gram Stain - Final Complete 01/23/25 20:30 Pleural Fluid Body Fluid Culture - Final Complete 01/19/25 16:06 Nose MRSA Screen - Final Complete 01/16/25 19:00 Blood Blood Culture - Final NO GROWTH AFTER 5 DAYS OF INCUBATION. Complete 01/08/25 10:37 Stool Stool Culture - Final Complete 01/08/25 10:37 Stool Shiga Toxin I & II - Final Complete Labs and/or images reviewed: Labs reviewed by me, Image(s) reviewed by me Assessment/Plan Assessment/Plan Neurology # acute metabolic encephalopathy likely due to DKA vs Sepsis, improving - head CT from 01/07/2025: No acute territorial infarct, intracranial hemorrhage or mass effect - head CT from 01/19/2025: No acute intracranial abnormality - monitor Cardiovascular # runs of AFib on EKG # prolonged QTC # Essential hypertension - avoiding QT prolonging drugs - echocardiogram from 07/20/2022: Overall preserved ventricular systolic function. EF 60%. Grade 1 diastolic dysfunction. - increased amlodipine to 10mg qD - repeat echo: Mild LVH and mild LV diastolic dysfunction. LVEF 65%. Slightly dilated left atrium. Moderately dilated RV and RA. Moderate degree pulmonary hypertension. Normal valves and no effusion. - monitor Respiratory # Community acquired pneumonia, Gram-positive versus Gram-negative # Acute hypoxic respiratory failure due to above, intubated and mechanically ventilated # moderate-large b/l Pleural effusions # moderate pulmonary hypertension with RVSP 46 mmHg - CXR 01/08/25: Bibasilar atelectasis or pneumonia. - CXR 01/20/25: Patchy bilateral airspace disease, [id number], slightly increased - previously on meropenem and vancomycin, stopped on 01/12/2025 - started on aztreonam on 01/17/2025, linezolid 01/16/2025 - discontinued aztreonam and linezolid on 01/20/2025 - started cefepime, vancomycin and metronidazole on 01/20/2025 - discontinued vancomycin 01/23/2025 - s/p thoracentesis with 900 mL of fluid removed on 01/23/2025 Ventilator: AC/VC Tidal volume 450 Respiratory rate 18 Peep 8 FiO2 35% GI # Acute intractable abdominal pain (01/21/25), improved # Microcytic anemia possibly 2' to ?LGI bleed; Hb 7.8 # Moderate abdominopelvic ascites # Peptic ulcer prophylaxis # gallbladder hydrops # isolated rise in alkaline phosphatase likely from cholestasis? # hypokalemia - stool occult blood positive - GI consult - CT abdomen pelvis from 01/07/2025: Nonspecific periportal edema. Incidental finding. -Pantoprazole 40 mg IV daily - serum lipase 113 - repeat CT abdomen pelvis (01/22/25): Moderate to large bilateral pleural effusions with patchy and consolidative infiltrates in the lung bases likely a combination of pneumonia and atelectasis.mLow to moderate volume abdominopelvic ascites and diffuse subcutaneous edema suggestive of anasarca. Moderate right hydronephrosis without visualization of hydroureter or obstructing calculi. This appearance is new versus CT scan dated 01/07/2025. Gallbladder hydrops without visualization of gallstones. This appearance may indicate acalculous cholecystitis. Fluid-filled colon with multiple air-fluid levels present, possibly related to diarrheal illness. No evidence of bowel obstruction, acute appendicitis, or other acute process in the abdomen or pelvis. 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 Moderate right hydronephrosis without visualization of hydroureter or obstructing calculi. This appearance is new versus CT scan dated 01/07/2025. Gallbladder hydrops without visualization of gallstones. This appearance may indicate acalculous cholecystitis. Fluid- filled colon with multiple air-fluid levels present, possibly related to diarrheal illness. No evidence of bowel obstruction, acute appendicitis, or other acute process in the abdomen or pelvis. - urology consulted - reconsulted nephrology - serum parathyroid hormone 185.9, corrected calcium 8.7 Infectious disease # bilateral lower extremity cellulitis # left lower extremity diabetic foot ulcer on the plantar aspect growing Staph aureus # Sepsis due to above # left heel pressure ulcer # ruled out DVT # Fungal cutaneous infection in b/l groin - MRI from 01/09/2025 shows Mild diffuse subcutaneous soft-tissue edema; possibly cellulitis. No bone marrow edema is present to suggest fracture or acute osteomyelitis. - bilateral lower extremity arterial Doppler: No hemodynamically significant stenosis based on peak systolic velocity criteria. - bilateral lower extremity venous Doppler: No right or left femoropopliteal venous thrombosis - discontinued aztreonam and linezolid on 01/20/2025 - started cefepime, vancomycin and metronidazole on 01/20/2025 - podiatry on board - left foot MRI: No MR evidence of osteomyelitis. Cellulitis and lateral 4 for deep of the 5th metatarsal bone were wound is noted overlying dressing. Edema in the intrinsic muscle of the foot may reflect sequelae of denervation, or myositis. - discontinued vancomycin 01/23/2025, started patient on daptomycin on 01/23/2025 - discontinued daptomycin, vancomycin and cefepime on 01/24/2025 - started linezolid on 01/24/2025 - discontinued linezolid on 01/31/2025 owing to dropping platelet count - started IV vancomycin per pharmacy after approval from Nephrology to have the dose timed with dialysis sessions - topical nystatin Hem/onc # microcytic anemia # thrombocytosis likely secondary to sepsis - s/p 2 PRBC - GI on board - monitor Endocrine # DKA, now resolved # recurrent episodes of hypoglycemia # severe protein calorie malnutrition # diabetic/starvation ketoacidosis, improved - discontinued lispro - holding insulin Lantus as patient continues to get hypoglycemic - mild sliding scale insulin - Accu-Cheks q4hr Diet Nepro carb steady with ProStat tube feedings Lines - right PICC line paced on 01/24/2025 - right-sided Dean catheter placed on 01/24/2025 - Owens catheter exchanged on 01/26/2025 Drips Fentanyl 150 microgram/minute Versed 8 mg Off of Levophed as of 01/24/2025; briefly required 4cmg/hr during dialysis on 01/29/25 Transeferred to OXANA 01/23/25 Plan discussed with: Patient Date of Service: Feb 01, 2025 Billing Provider: BHAVANA HERNANDEZ MD Common Visit Codes: 01501-[id number] CARE 30-74 MIN BHAVANA HERNANDEZ MD Feb 01, 2025 11:32
[2025-02-01 12:12] LABS: Chloride 102 mmol/L (98-107); Sodium 136 mmol/L (136-145)
[2025-02-01 12:13] LABS: Anion Gap 8 (5-15); Carbon Dioxide 26 mmol/L (20-31); Potassium 3.4 mmol/L (3.5-5.1)
[2025-02-01 12:18] LABS: BUN/Creatinine Ratio 13.5 (10.0-20.0); Calcium 7.7 mg/dL (8.7-10.4)
[2025-02-01 12:25] LABS: Blood Urea Nitrogen 27 mg/dL (9-23); Glucose 169 mg/dL (74-106)
--- NOTE | 2025-02-01 13:33 | DVHPN2 ---
Progress Note - Dictate Date Seen: Feb 01, 2025 Medical Necessity Reason Pt with a Central, PICC or Fol: No The following are medically ne: Jones Catheter Reason for jones catheter: Strict I&O vital signs Vital Sign Date Time Temp Pulse Resp B/P (MAP) Pulse Ox O2 Delivery O2 Flow Rate FiO2 02/01/25 12:21 133/68 02/01/25 12:02 113 18 100 30 02/01/25 12:00 Mechanical Ventilator+ 02/01/25 08:00 99.1 99.1 Total Intake and Output 01/31/25 01/31/25 02/01/25 15:00 23:00 07:00 Intake Total 634 ml 849.0 ml 504.0 ml Output Total 2675 ml 225 ml Balance 634 ml -1826.0 ml 279.0 ml medications Current Medications Medications Dose Ordered Sig/Zaria Route Start Time Stop Time Status Last Admin Dose Admin Famotidine 20 mg Q12HR IV 01/07/25 10:00 UNV Diagnostic Test (Pha) 1 strip IQ4HR 01/07/25 08:00 Cancel Calcium Gluconate/ Sodium Chloride 50 ml @ 100 mls/hr Q30M IV 01/08/25 17:30 01/08/25 18:29 Cancel Pantoprazole Sodium 40 mg BID IV 01/10/25 10:00 02/01/25 09:58 40 MG Midazolam HCl 50 ml @ 1 mls/hr Q24H IV 01/24/25 04:00 02/01/25 12:21 8 MLS/HR Fentanyl Citrate 250 ml @ 2.5 mls/hr Q24H IV 01/24/25 04:00 01/31/25 23:44 17.5 MLS/HR Norepinephrine Bitartrate 250 ml @ 3.75 mls/hr Q24H IV 01/24/25 04:30 01/29/25 09:52 3.75 MLS/HR Sodium Chloride 10 ml QSHIFT@10,22 IV 01/24/25 22:00 02/01/25 09:58 10 ML Nystatin 1 applic BID TOP 01/24/25 22:00 02/01/25 09:58 1 APPLIC Diagnostic Test (Pha) 1 strip Q4HR 01/26/25 14:00 UNV Amino Acid Protein 30 ml TIDWM PO 01/28/25 18:00 02/01/25 12:21 30 ML Enteral Nutritional Formula 1,000 ml 30ML/HR GT 01/29/25 18:15 02/01/25 03:40 1,000 ML Metoclopramide HCl 5 mg Q8HR IV 01/30/25 14:00 02/01/25 06:19 5 MG Vancomycin HCl 0 ml @ 0 mls/hr UD IV 01/31/25 14:30 Cancel Diagnostic Test (Pha) 1 strip IQ4HR 01/31/25 16:00 02/01/25 12:00 1 STRIP Insulin Human Regular IQ4HR SC 01/31/25 16:00 02/01/25 12:37 3 UNITS Dextrose 50 ml UD PRN IV 01/31/25 14:45 Ursodiol 300 mg BID NG 02/01/25 22:00 Furosemide 40 mg BIDD IV 02/01/25 18:00 laboratory and microbiology Laboratory Tests 02/01/25 11:48 02/01/25 04:40 Test 02/01/25 11:48 Range/Units Serum Glucose 169 H 74-106 mg/dL Assessment/Plan Impression Acute hypoxemic respiratory failure Pneumonia Anemia DKA Patient seen and examined in ICU Events On mechanical ventilation S/p re-intubation PEEP 5, FiO2 30% Appears conditioned Labs and imaging reviewed ABG reviewed Management Vent support Titrate to maintain sats 90% or above Daily weaning trials Continue antibiotics F/u cultures Bronchodilators Monitor renal function Monitor electrolytes Supplement as needed Pressors as needed for hemodynamic support To maintain a mean arterial pressure of 65 mmHg DVT prophylaxis Critical care time 35 minutes Dietary Evaluation Review Recommendations by RD: Increase Calorie Intake Comments: Nutrition Recommendation: 1) Vital AF 1.2Cal @ 25ml/hr along with Pro-stat 1 pk BID. start @ 20ml/hr, increase 10ml/hr Q4H until goal is reached. TF @ goal volume along with propofol, IV D5wNS0.45%, and Pro-stat provides 1684 kcal (100% energy needs), 75gm protein (100% protein needs), 487ml free water. 2) TPN to meet 75% estimated needs if remains NPO 3) Bryce 1 pk BID for DFU Expected Outcomes/Goals: DFU to improve To maintain/gain weight To meet at least 75% estimated needs Fu 2-3 days Interpretation of weight loss: up to 5% in 1 month Muscle Mass (Severe): Mod to Severe Depletion Protein Calorie Malnutrition: Non-Severe Is there a minimum of two crit: Yes Plan discussed with: Other (Rn) PAM LEHMAN MD Feb 01, 2025 13:33
[2025-02-01] MEDS: POTASSIUM EFFERVESENT TAB 25 MEQ GT ONE (13:47)
[2025-02-01] MEDS: FUROSEMIDE 40 MG/4 ML VIAL IV SCH (17:30)
--- NOTE | 2025-02-01 17:46 | DVHPN2 ---
Consult Progress Note Date Seen: Jan 30, 2025 Subjective Patient reports: Other (appears less edemitus after dialysis , sedated and on minimal vent ) Objective vital signs Vital Sign Date Time Temp Pulse Resp B/P (MAP) Pulse Ox O2 Delivery O2 Flow Rate FiO2 02/01/25 16:00 18 100 Mechanical Ventilator+ 30 30 02/01/25 16:00 98.5 111 139/76 (97) 98.5 Total Intake and Output 01/31/25 01/31/25 02/01/25 15:00 23:00 07:00 Intake Total 634 ml 849.0 ml 504.0 ml Output Total 2675 ml 225 ml Balance 634 ml -1826.0 ml 279.0 ml medications Current Medications Medications Dose Ordered Sig/Zaria Route Start Time Stop Time Status Last Admin Dose Admin Famotidine 20 mg Q12HR IV 01/07/25 10:00 UNV Diagnostic Test (Pha) 1 strip IQ4HR 01/07/25 08:00 Cancel Calcium Gluconate/ Sodium Chloride 50 ml @ 100 mls/hr Q30M IV 01/08/25 17:30 01/08/25 18:29 Cancel Pantoprazole Sodium 40 mg BID IV 01/10/25 10:00 02/01/25 09:58 40 MG Midazolam HCl 50 ml @ 1 mls/hr Q24H IV 01/24/25 04:00 02/01/25 12:21 8 MLS/HR Fentanyl Citrate 250 ml @ 2.5 mls/hr Q24H IV 01/24/25 04:00 02/01/25 13:40 17.5 MLS/HR Norepinephrine Bitartrate 250 ml @ 3.75 mls/hr Q24H IV 01/24/25 04:30 01/29/25 09:52 3.75 MLS/HR Sodium Chloride 10 ml QSHIFT@10,22 IV 01/24/25 22:00 02/01/25 09:58 10 ML Nystatin 1 applic BID TOP 01/24/25 22:00 02/01/25 09:58 1 APPLIC Diagnostic Test (Pha) 1 strip Q4HR 01/26/25 14:00 UNV Amino Acid Protein 30 ml TIDWM PO 01/28/25 18:00 02/01/25 12:21 30 ML Enteral Nutritional Formula 1,000 ml 30ML/HR GT 01/29/25 18:15 02/01/25 03:40 1,000 ML Metoclopramide HCl 5 mg Q8HR IV 01/30/25 14:00 02/01/25 13:48 5 MG Vancomycin HCl 0 ml @ 0 mls/hr UD IV 01/31/25 14:30 Cancel Diagnostic Test (Pha) 1 strip IQ4HR 01/31/25 16:00 02/01/25 16:06 1 STRIP Insulin Human Regular IQ4HR SC 01/31/25 16:00 02/01/25 16:05 3 UNITS Dextrose 50 ml UD PRN IV 01/31/25 14:45 Ursodiol 300 mg BID NG 02/01/25 22:00 Furosemide 40 mg BIDD IV 02/01/25 18:00 laboratory and microbiology Laboratory Tests 02/01/25 11:48 02/01/25 04:40 Test 02/01/25 11:48 Range/Units Serum Glucose 169 H 74-106 mg/dL Problem List/Assessment/Plan Problems(with codes): (1) Inadequate oral intake (2) Intractable abdominal pain (3) Cannabinoid hyperemesis syndrome (4) History of diabetic ketoacidosis (5) Gallbladder hydrops (6) Gallstones (7) Fluid overload Problem List/Assessment/Plan - Acute hypoxic respiratory therapy Patient is a 44 year old with a past medical history of type 1 diabetes who presents with blood sugars of 940, altered mental status . was started on insulin drip and monitored in ICU . having respiratory distress and respiratory alkalosis . chest xray was unremarkable patient was started empirically on vancomycin and Zosyn . later developed swelling of the lips and out of concern of allergy Zosyn was stopped and switched to Aztreonam and vancomycin was stopped due to acute kidney injury and was switched to linezolid . patient has chronic bilateral foot wounds with no new ulcers , malnourished . both feet ulcers are on the planar surface with a necrotic planar base, on the right foot it looks newer with mild drainage. Currently tolerating antibiotics whitecount is 18.6 , creatinine is 2.24 and patient is on minimal vent and no requiring any presser support . microbiology cultures and respiratory cultures are negative . foot wound was swabbed and is growing MSSA and enterococcus facialis. unclear sensitivities . 01/18: growing MSSA and enterococcus that is sensitive to ampicillin and vancomycin . whitecount is at 21.6. 01/19: whitecount is 19.1 . blood sugars are more controlled . underwent MRI of feet bilaterally and no signs of osteomyelitis , only cellulitis 01/20: switched from aztreonam to cefepime and fluconazole because of candidal infection of the groin which is alse a concer for persistly elevated leukocytosis and ongoing visible cellulitis 01/21: worsening RADHA , may have to stop vancomycin early 01/22: Worsening RADHA , likely edema in the lungs . vancomycin troths was 19.3 on the higher end of normal 01/23: Chest xray shows worsening multifocal pneumonia , patient is also having worsening RADHA 01/24: Chest xray continues to show worsening multifocal pneumonia , worsening leukocytosis and levofed needs consistent with new pneumonia resulting in septic shock or volume overload 01/25: preliminary sputum culture shows mucus threads , no organisms , no growth . respiratory cultures show no growth . chest xray shows multifocal pneumonia , worse from prior . hemoglobin is at 7.5 01/26: whitecount at 12.8 , required blood transfusion for hemoglobin 6.2 . unclear where patient is having bleeding 01/27: preliminary urine and respiratory cultures are no growth to date . whitecount now at 11. Chest xray shows bilateral airspace disease in the right upper quadral ultrasound shows hepatomegaly with coarsened echo texture which could be seen in setting of liver disease fibrosis 01/28: whitecount down to normal , suspect infection is largely resolving 01/29:platelet drop likely related to linezolid use , if it drops under 100 would stop linezolid and switch to vancomycin 01/30: continues to have large volume of stool output and urine output is slowly improving . platelets have gone under 100 Plan : - Stop linezolid and start vancomycin due to low platelets - stop cefepime - defer to primary team regarding plan for diuresis in setting of possible volume overload and anemia workup otherwise suspect volume overload is etiology largely contributing to patients ongoing hypoxia - Continue topical nystatin 2x a day for growing fungal infection - agree with urine culture to evaluate for UTI in setting of RADHA and jones use - if hypotension or hypoxia worsen start meropenem empirically - f/u on any plural studies done , so far not consistent with parapneumonic pneumonia - if patient continues to have signs of infection will consider acquiring a ct of lower extremities bilaterally to evaluate for unseen abscess or osteomyelitis but can hold off for now - defer DKA management to primary care team - defer management of vent support to keep O2 sats above 95% to aging box hand team - f/u on pending blood cultures Authorized and Performed by: Lizzy Roland Total critical care time: Approximately 76 minutes Due to a high probability of clinically significant, life threatening deterioration, the patient required my highest level of preparedness to intervene emergently and I personally spent this critical care time directly and personally managing the patient. This critical care time included obtaining a history; examining the patient; pulse oximetry; ordering and review of studies; arranging urgent treatment with development of a management plan; evaluation of patient's response to treatment; frequent reassessment; and, discussions with other providers. This critical care time was performed to assess and manage the high probability of imminent, life-threatening deterioration that could result in multi-organ failure. It was exclusive of separately billable procedures and treating other patients and teaching time. Plan discussed with: Other Dietary Evaluation Review Recommendations by RD: Increase Calorie Intake Comments: Nutrition Recommendation: 1) Vital AF 1.2Cal @ 25ml/hr along with Pro-stat 1 pk BID. start @ 20ml/hr, increase 10ml/hr Q4H until goal is reached. TF @ goal volume along with propofol, IV D5wNS0.45%, and Pro-stat provides 1684 kcal (100% energy needs), 75gm protein (100% protein needs), 487ml free water. 2) TPN to meet 75% estimated needs if remains NPO 3) Bryce 1 pk BID for DFU Expected Outcomes/Goals: DFU to improve To maintain/gain weight To meet at least 75% estimated needs Fu 2-3 days Interpretation of weight loss: up to 5% in 1 month Muscle Mass (Severe): Mod to Severe Depletion Protein Calorie Malnutrition: Non-Severe Is there a minimum of two crit: Yes LIZZY ROLAND MD Feb 01, 2025 17:46
--- NOTE | 2025-02-01 17:53 | DVHPN2 ---
Consult Progress Note Date Seen: Feb 01, 2025 Subjective Patient reports: Other (platelets and hemoglobin continue to drop . remaisn off pressers . has ongoing diarrhea through rectal tube and 100ccs of urine output ) Objective vital signs Vital Sign Date Time Temp Pulse Resp B/P (MAP) Pulse Ox O2 Delivery O2 Flow Rate FiO2 02/01/25 16:00 18 100 Mechanical Ventilator+ 30 30 02/01/25 16:00 98.5 111 139/76 (97) 98.5 Total Intake and Output 01/31/25 01/31/25 02/01/25 15:00 23:00 07:00 Intake Total 634 ml 849.0 ml 504.0 ml Output Total 2675 ml 225 ml Balance 634 ml -1826.0 ml 279.0 ml medications Current Medications Medications Dose Ordered Sig/Zaria Route Start Time Stop Time Status Last Admin Dose Admin Famotidine 20 mg Q12HR IV 01/07/25 10:00 UNV Diagnostic Test (Pha) 1 strip IQ4HR 01/07/25 08:00 Cancel Calcium Gluconate/ Sodium Chloride 50 ml @ 100 mls/hr Q30M IV 01/08/25 17:30 01/08/25 18:29 Cancel Pantoprazole Sodium 40 mg BID IV 01/10/25 10:00 02/01/25 09:58 40 MG Midazolam HCl 50 ml @ 1 mls/hr Q24H IV 01/24/25 04:00 02/01/25 12:21 8 MLS/HR Fentanyl Citrate 250 ml @ 2.5 mls/hr Q24H IV 01/24/25 04:00 02/01/25 13:40 17.5 MLS/HR Norepinephrine Bitartrate 250 ml @ 3.75 mls/hr Q24H IV 01/24/25 04:30 01/29/25 09:52 3.75 MLS/HR Sodium Chloride 10 ml QSHIFT@10,22 IV 01/24/25 22:00 02/01/25 09:58 10 ML Nystatin 1 applic BID TOP 01/24/25 22:00 02/01/25 09:58 1 APPLIC Diagnostic Test (Pha) 1 strip Q4HR 01/26/25 14:00 UNV Amino Acid Protein 30 ml TIDWM PO 01/28/25 18:00 02/01/25 12:21 30 ML Enteral Nutritional Formula 1,000 ml 30ML/HR GT 01/29/25 18:15 02/01/25 03:40 1,000 ML Metoclopramide HCl 5 mg Q8HR IV 01/30/25 14:00 02/01/25 13:48 5 MG Vancomycin HCl 0 ml @ 0 mls/hr UD IV 01/31/25 14:30 Cancel Diagnostic Test (Pha) 1 strip IQ4HR 01/31/25 16:00 02/01/25 16:06 1 STRIP Insulin Human Regular IQ4HR SC 01/31/25 16:00 02/01/25 16:05 3 UNITS Dextrose 50 ml UD PRN IV 01/31/25 14:45 Ursodiol 300 mg BID NG 02/01/25 22:00 Furosemide 40 mg BIDD IV 02/01/25 18:00 laboratory and microbiology Laboratory Tests 02/01/25 11:48 02/01/25 04:40 Test 02/01/25 11:48 Range/Units Serum Glucose 169 H 74-106 mg/dL Problem List/Assessment/Plan Problems(with codes): (1) Cannabinoid hyperemesis syndrome (2) History of diabetic ketoacidosis (3) Gallbladder hydrops (4) Gallstones (5) Fluid overload Problem List/Assessment/Plan - Acute hypoxic respiratory therapy Patient is a 44 year old with a past medical history of type 1 diabetes who presents with blood sugars of 940, altered mental status . was started on insulin drip and monitored in ICU . having respiratory distress and respiratory alkalosis . chest xray was unremarkable patient was started empirically on vancomycin and Zosyn . later developed swelling of the lips and out of concern of allergy Zosyn was stopped and switched to Aztreonam and vancomycin was stopped due to acute kidney injury and was switched to linezolid . patient has chronic bilateral foot wounds with no new ulcers , malnourished . both feet ulcers are on the planar surface with a necrotic planar base, on the right foot it looks newer with mild drainage. Currently tolerating antibiotics whitecount is 18.6 , creatinine is 2.24 and patient is on minimal vent and no requiring any presser support . microbiology cultures and respiratory cultures are negative . foot wound was swabbed and is growing MSSA and enterococcus facialis. unclear sensitivities . 01/18: growing MSSA and enterococcus that is sensitive to ampicillin and vancomycin . whitecount is at 21.6. 01/19: whitecount is 19.1 . blood sugars are more controlled . underwent MRI of feet bilaterally and no signs of osteomyelitis , only cellulitis 01/20: switched from aztreonam to cefepime and fluconazole because of candidal infection of the groin which is alse a concer for persistly elevated leukocytosis and ongoing visible cellulitis 01/21: worsening RADHA , may have to stop vancomycin early 01/22: Worsening RADHA , likely edema in the lungs . vancomycin troths was 19.3 on the higher end of normal 01/23: Chest xray shows worsening multifocal pneumonia , patient is also having worsening RADHA 01/24: Chest xray continues to show worsening multifocal pneumonia , worsening leukocytosis and levofed needs consistent with new pneumonia resulting in septic shock or volume overload 01/25: preliminary sputum culture shows mucus threads , no organisms , no growth . respiratory cultures show no growth . chest xray shows multifocal pneumonia , worse from prior . hemoglobin is at 7.5 01/26: whitecount at 12.8 , required blood transfusion for hemoglobin 6.2 . unclear where patient is having bleeding 01/27: preliminary urine and respiratory cultures are no growth to date . whitecount now at 11. Chest xray shows bilateral airspace disease in the right upper quadral ultrasound shows hepatomegaly with coarsened echo texture which could be seen in setting of liver disease fibrosis 01/28: whitecount down to normal , suspect infection is largely resolving 01/29:platelet drop likely related to linezolid use , if it drops under 100 would stop linezolid and switch to vancomycin 01/30: continues to have large volume of stool output and urine output is slowly improving . platelets have gone under 100 01/31: signs of infection appear to have subsided however patient continues to have issues with edema and liver failure and bleeding . Plan : - Stop vancomycin due to s/p 8 day coarse of mrsa therapy , low suspicion for infection - will monitor clinically off all antibiotics and antibiotic therapy should be started if there is a low suspicion of infection given pulmonary fibrosis and tenuous hemodynamic status as well as paracentesis and can hold off for now - defer management of diarrhea and blood loss , anemia to GI services - stop cefepime - defer to primary team regarding plan for diuresis in setting of possible volume overload and anemia workup otherwise suspect volume overload is etiology largely contributing to patients ongoing hypoxia - Continue topical nystatin 2x a day for growing fungal infection - agree with urine culture to evaluate for UTI in setting of RADHA and jones use - if hypotension or hypoxia worsen start meropenem empirically - f/u on any plural studies done , so far not consistent with parapneumonic pneumonia - if patient continues to have signs of infection will consider acquiring a ct of lower extremities bilaterally to evaluate for unseen abscess or osteomyelitis but can hold off for now - defer DKA management to primary care team - defer management of vent support to keep O2 sats above 95% to bioinformatics developer team - f/u on pending blood cultures Authorized and Performed by: Lizzy Roland Total critical care time: Approximately 76 minutes Due to a high probability of clinically significant, life threatening deterioration, the patient required my highest level of preparedness to intervene emergently and I personally spent this critical care time directly and personally managing the patient. This critical care time included obtaining a history; examining the patient; pulse oximetry; ordering and review of studies; arranging urgent treatment with development of a management plan; evaluation of patient's response to treatment; frequent reassessment; and, discussions with other providers. This critical care time was performed to assess and manage the high probability of imminent, life-threatening deterioration that could result in multi-organ failure. It was exclusive of separately billable procedures and treating other patients and teaching time. Plan discussed with: Other Dietary Evaluation Review Recommendations by RD: Increase Calorie Intake Comments: Nutrition Recommendation: 1) Vital AF 1.2Cal @ 25ml/hr along with Pro-stat 1 pk BID. start @ 20ml/hr, increase 10ml/hr Q4H until goal is reached. TF @ goal volume along with propofol, IV D5wNS0.45%, and Pro-stat provides 1684 kcal (100% energy needs), 75gm protein (100% protein needs), 487ml free water. 2) TPN to meet 75% estimated needs if remains NPO 3) Bryce 1 pk BID for DFU Expected Outcomes/Goals: DFU to improve To maintain/gain weight To meet at least 75% estimated needs Fu 2-3 days Interpretation of weight loss: up to 5% in 1 month Muscle Mass (Severe): Mod to Severe Depletion Protein Calorie Malnutrition: Non-Severe Is there a minimum of two crit: Yes LIZZY ROLAND MD Feb 01, 2025 17:53
[2025-02-01] MEDS: URSODIOL 300 MG CAP NG SCH (21:29)
--- NOTE | 2025-02-01 23:22 | DVHPN2 ---
Progress Note - Dictate Date Seen: Feb 01, 2025 Medical Necessity Reason Pt with a Central, PICC or Fol: No The following are medically ne: Jones Catheter Reason for jones catheter: Strict I&O Subjective No new complaints Patient is still intubated and sedated, FiO2 30% peep of five Patient has failed swallow evaluation Patient has been started on enteral tube feedings at 30 mL/hour and IV TPN is discontinued Moderate persistent and worsening elevation in alkaline phosphatase H&H is stable at 7.7; leukocytosis is improving Repeat ultrasound of the gallbladder is normal but patient continues to have rising alkaline phosphatase Rising elevated alkaline phosphatase over 2300 today possibly related to medication effect from linezolid vital signs Vital Sign Date Time Temp Pulse Resp B/P (MAP) Pulse Ox O2 Delivery O2 Flow Rate FiO2 02/01/25 22:47 142/74 02/01/25 22:39 111 19 100 30 02/01/25 20:00 Mechanical Ventilator+ 02/01/25 20:00 97.7 97.7 Total Intake and Output 01/31/25 01/31/25 02/01/25 15:00 23:00 07:00 Intake Total 634 ml 849.0 ml 504.0 ml Output Total 2675 ml 225 ml Balance 634 ml -1826.0 ml 279.0 ml medications Current Medications Medications Dose Ordered Sig/Zaria Route Start Time Stop Time Status Last Admin Dose Admin Famotidine 20 mg Q12HR IV 01/07/25 10:00 UNV Diagnostic Test (Pha) 1 strip IQ4HR 01/07/25 08:00 Cancel Calcium Gluconate/ Sodium Chloride 50 ml @ 100 mls/hr Q30M IV 01/08/25 17:30 01/08/25 18:29 Cancel Pantoprazole Sodium 40 mg BID IV 01/10/25 10:00 02/01/25 21:29 40 MG Midazolam HCl 50 ml @ 1 mls/hr Q24H IV 01/24/25 04:00 02/01/25 22:47 7 MLS/HR Fentanyl Citrate 250 ml @ 2.5 mls/hr Q24H IV 01/24/25 04:00 02/01/25 13:40 17.5 MLS/HR Norepinephrine Bitartrate 250 ml @ 3.75 mls/hr Q24H IV 01/24/25 04:30 01/29/25 09:52 3.75 MLS/HR Sodium Chloride 10 ml QSHIFT@10,22 IV 01/24/25 22:00 02/01/25 21:30 10 ML Nystatin 1 applic BID TOP 01/24/25 22:00 02/01/25 21:30 1 APPLIC Diagnostic Test (Pha) 1 strip Q4HR 01/26/25 14:00 UNV Amino Acid Protein 30 ml TIDWM PO 01/28/25 18:00 02/01/25 17:31 30 ML Enteral Nutritional Formula 1,000 ml 30ML/HR GT 01/29/25 18:15 02/01/25 03:40 1,000 ML Metoclopramide HCl 5 mg Q8HR IV 01/30/25 14:00 02/01/25 21:29 5 MG Vancomycin HCl 0 ml @ 0 mls/hr UD IV 01/31/25 14:30 Cancel Diagnostic Test (Pha) 1 strip IQ4HR 01/31/25 16:00 02/01/25 19:34 1 STRIP Insulin Human Regular IQ4HR SC 01/31/25 16:00 02/01/25 16:05 3 UNITS Dextrose 50 ml UD PRN IV 01/31/25 14:45 Ursodiol 300 mg BID NG 02/01/25 22:00 02/01/25 21:29 300 MG Furosemide 40 mg BIDD IV 02/01/25 18:00 02/01/25 17:30 40 MG objective Intubated sedated hemodynamically stable Mild Abdominal distention no masses Generalized anasarca and scrotal swelling laboratory and microbiology Laboratory Tests 02/01/25 11:48 02/01/25 04:40 Test 02/01/25 11:48 Range/Units Serum Glucose 169 H 74-106 mg/dL Problems(with codes): (1) Gallstones (2) Gallbladder hydrops (3) Cannabinoid hyperemesis syndrome (4) Intractable abdominal pain (5) Elevated AFP Prognosis Plan TPN has been discontinued and IV linezolid as it was DC Start ursodiol 300 mg p.o. twice a day were via NG tube Continue supportive care Prognosis remains guarded Dietary Evaluation Review Recommendations by RD: Increase Calorie Intake Comments: Nutrition Recommendation: 1) Vital AF 1.2Cal @ 25ml/hr along with Pro-stat 1 pk BID. start @ 20ml/hr, increase 10ml/hr Q4H until goal is reached. TF @ goal volume along with propofol, IV D5wNS0.45%, and Pro-stat provides 1684 kcal (100% energy needs), 75gm protein (100% protein needs), 487ml free water. 2) TPN to meet 75% estimated needs if remains NPO 3) Bryce 1 pk BID for DFU Expected Outcomes/Goals: DFU to improve To maintain/gain weight To meet at least 75% estimated needs Fu 2-3 days Interpretation of weight loss: up to 5% in 1 month Muscle Mass (Severe): Mod to Severe Depletion Protein Calorie Malnutrition: Non-Severe Is there a minimum of two crit: Yes Plan discussed with: Other ([facility] Nurse) LETTY GENTILE MD Feb 01, 2025 23:22
[2025-02-02] VITALS (107 sets, daily range): BP systolic 114–171; BP diastolic 68–90; PULSE 87–113; RESP 13–25; TEMP 97.7–100.2; O2SAT 98–100
[2025-02-02 05:46] LABS: Hematocrit 24.8 % (41.0-53.0); Hemoglobin 7.8 g/dL (13.5-17.5); Mean Corpuscular Hemoglobin 25.3 pg (28.0-32.0); Mean Corpuscular Volume 79.9 fL (80.0-100.0); Nucleated Red Blood Cells % 0.7 %
[2025-02-02 06:04] LABS: Alanine Aminotransferase 12 U/L (7-40); Anion Gap 8 (5-15); BUN/Creatinine Ratio 14.7 (10.0-20.0); Carbon Dioxide 26 mmol/L (20-31); Chloride 102 mmol/L (98-107); Magnesium 2.1 mg/dL (1.6-2.6); Potassium 3.7 mmol/L (3.5-5.1)
[2025-02-02 06:12] LABS: Albumin 2.3 g/dL (3.2-4.8); Bilirubin, Total 4.8 mg/dL (0.2-1.0); Blood Urea Nitrogen 34 mg/dL (9-23); Calcium 8.2 mg/dL (8.7-10.4); Glucose 154 mg/dL (74-106); Sodium 136 mmol/L (136-145); Total Protein 5.1 g/dL (5.7-8.2)
[2025-02-02 06:15] LABS: Alkaline Phosphatase > 2300 U/L (46-116)
[2025-02-02 07:12] LABS: Base Excess 0.4 mmol/L (-2.0-3.0)
[2025-02-02] MEDS: fentaNYL Drip 2500mCg/250mlNS 250 ML IV SCH (08:00)
--- NOTE | 2025-02-02 08:33 | DVHPN2 ---
Progress Note Date Seen: Feb 02, 2025 Medical Necessity Reason Pt with a Central, PICC or Fol: No The following are medically ne: Jones Catheter Reason for jones catheter: Strict I&O Subjective Patient reports: Other (Remains intubated) Review of Systems: Deferred Objective vital signs Vital Sign Date Time Temp Pulse Resp B/P (MAP) Pulse Ox O2 Delivery O2 Flow Rate FiO2 02/02/25 08:15 110 15 148/74 (98) 100 02/02/25 08:00 98.3 98.3 02/02/25 08:00 Mechanical Ventilator+ 30 30 Total Intake and Output 02/01/25 02/01/25 02/02/25 15:00 23:00 07:00 Intake Total 304.0 ml 598.5 ml 501.5 ml Output Total 450 ml 350 ml Balance 304.0 ml 148.5 ml 151.5 ml medications Current Medications Medications Dose Ordered Sig/Zaria Route Start Time Stop Time Status Last Admin Dose Admin Famotidine 20 mg Q12HR IV 01/07/25 10:00 UNV Diagnostic Test (Pha) 1 strip IQ4HR 01/07/25 08:00 Cancel Calcium Gluconate/ Sodium Chloride 50 ml @ 100 mls/hr Q30M IV 01/08/25 17:30 01/08/25 18:29 Cancel Pantoprazole Sodium 40 mg BID IV 01/10/25 10:00 02/02/25 07:48 40 MG Midazolam HCl 50 ml @ 1 mls/hr Q24H IV 01/24/25 04:00 02/01/25 22:47 7 MLS/HR Norepinephrine Bitartrate 250 ml @ 3.75 mls/hr Q24H IV 01/24/25 04:30 01/29/25 09:52 3.75 MLS/HR Sodium Chloride 10 ml QSHIFT@10,22 IV 01/24/25 22:00 02/02/25 07:48 10 ML Nystatin 1 applic BID TOP 01/24/25 22:00 02/02/25 07:48 1 APPLIC Diagnostic Test (Pha) 1 strip Q4HR 01/26/25 14:00 UNV Amino Acid Protein 30 ml TIDWM PO 01/28/25 18:00 02/02/25 07:48 30 ML Enteral Nutritional Formula 1,000 ml 30ML/HR GT 01/29/25 18:15 02/01/25 03:40 1,000 ML Metoclopramide HCl 5 mg Q8HR IV 01/30/25 14:00 02/02/25 06:34 5 MG Vancomycin HCl 0 ml @ 0 mls/hr UD IV 01/31/25 14:30 Cancel Diagnostic Test (Pha) 1 strip IQ4HR 01/31/25 16:00 02/02/25 04:26 1 STRIP Insulin Human Regular IQ4HR SC 01/31/25 16:00 02/02/25 07:50 3 UNITS Dextrose 50 ml UD PRN IV 01/31/25 14:45 Ursodiol 300 mg BID NG 02/01/25 22:00 02/02/25 07:48 300 MG Furosemide 40 mg BIDD IV 02/01/25 18:00 02/02/25 06:34 40 MG Fentanyl Citrate 250 ml @ 2.5 mls/hr Q24H IV 02/02/25 08:00 UNV Examination: GENERAL:Abnormal, LUNGS:Abnormal, NEURO:Abnormal laboratory and microbiology Laboratory Tests 02/02/25 04:37 02/02/25 04:30 Test 02/02/25 04:37 Range/Units Serum Glucose 154 H 74-106 mg/dL Microbiology Date/Time Source Procedure Growth Status 01/26/25 08:46 Urine - Jones [place] Urine Culture - Final Complete 01/24/25 04:15 Sputum Gram Stain - Final Complete 01/24/25 04:15 Sputum Respiratory Culture - Final Complete 01/23/25 20:30 Pleural Fluid Gram Stain - Final Complete 01/23/25 20:30 Pleural Fluid Body Fluid Culture - Final Complete 01/19/25 16:06 Nose MRSA Screen - Final Complete 01/16/25 19:00 Blood Blood Culture - Final NO GROWTH AFTER 5 DAYS OF INCUBATION. Complete 01/08/25 10:37 Stool Stool Culture - Final Complete 01/08/25 10:37 Stool Shiga Toxin I & II - Final Complete Problem List/Assessment/Plan Problem List/Assessment/Plan Acute kidney injury superimposed Chronic Kidney Disease stage IIIB secondary hemodynamic mediated ATN, FeNa > 2% - needing dialysis Acute hypoxic respiratory failure, patient extubated and then reintubated Hypernatremia due to dehydration Hypocalcemia Hypomagnesemia Hypokalemia Anemia of chronic kidney disease Recommendations Hemodialysis 01/31 next dialysis on Monday Continue diuretics-- continue HD as uop less on diuretics prn k replace Plan discussed with: Other My Orders My Orders Orders - VIDHYA NEVES MD Procedure Category Date Status Time Furosemide Injection PHA 02/01/25 In Process (Lasix Injection) 18:00 Dietary Evaluation Review Recommendations by RD: Increase Calorie Intake Comments: Nutrition Recommendation: 1) Vital AF 1.2Cal @ 25ml/hr along with Pro-stat 1 pk BID. start @ 20ml/hr, increase 10ml/hr Q4H until goal is reached. TF @ goal volume along with propofol, IV D5wNS0.45%, and Pro-stat provides 1684 kcal (100% energy needs), 75gm protein (100% protein needs), 487ml free water. 2) TPN to meet 75% estimated needs if remains NPO 3) Bryce 1 pk BID for DFU Expected Outcomes/Goals: DFU to improve To maintain/gain weight To meet at least 75% estimated needs Fu 2-3 days Interpretation of weight loss: up to 5% in 1 month Muscle Mass (Severe): Mod to Severe Depletion Protein Calorie Malnutrition: Non-Severe Is there a minimum of two crit: Yes VIDHYA NEVES MD Feb 02, 2025 08:33
--- NOTE | 2025-02-02 09:19 | DVH ---
XY CHEST PORTABLE, HISTORY: INTUBATED COMPARISON: XY CHEST PORTABLE on DOS: 02/01/25, XY CHEST PORTABLE on DOS: 01/31/25, XY CHEST PORTABLE o n DOS: 01/30/25 XY CHEST PORTABLE on DOS: 02/01/25, XY CHEST PORTABLE on DOS: 01/31/25, XY CHEST PORTABLE on DOS: TECHNICAL DATA: 1 view of the chest was obtained. FINDINGS: Lines and tubes: Similar lines and tubes. Cardiomediastinal silhouette: Indistinct Pulmonary vasculature: Prominent Lung expansion: Low Lung airspace: Multifocal patchy airspace opacity Lung interstitium: Prominent Pleura: Small right pleural effusion Pneumothorax: no Bones: Unremarkable Other: no IMPRESSION: Similar positioning of the lines and tubes. Similar lung aeration with multifocal patchy airspace opa city and small right pleural effusion.
--- NOTE | 2025-02-02 11:54 | DVHPN2 ---
Subjective Patient is a 44-year-old male with known history of type 1 diabetes mellitus who presented on 01/06/2025 via EMS for altered level of consciousness. Per EMS, the patient was found unresponsive with a blood glucose of 931 and received 400 cc IV fluids on route. On arrival he exhibited hypoxia, generalized weakness, increased work of breathing necessitating intubation and mechanical ventilation. Patient was started on IV insulin drip, Zosyn and vancomycin with bicarbonate for severe acidosis. A right femoral central line, midline and peripheral IVs were also placed. Of note, patient has a history of poor adherence to his insulin therapy. Per patient's father, patient lives alone in a trailer and had not been heard from since 01/02/2025. Patient was last hospitalized at the [facility] in November 2024 for DKA. On 01/07/2025, patient developed lip swelling while still intubated, chart review revealed a penicillin allergy. Zosyn was discontinued and patient was treated with methylprednisolone and transitioned to meropenem. Nephrology was consulted for RADHA and hypernatremia. A 01/10/2025, patient had begun to improve and was weaned off sedation and was extubated on 01/12/2025 and transferred telemetry. Antibiotics were discontinued at that time due to uncertainty about the cause of leukocytosis (steroids versus infection). However, WBCs continued to trend upwards and the patient developed low-grade fevers, subsequently restarted on linezolid and aztreonam. Patient has bilateral diabetic foot ulcers, left side more advanced than right. MRI of bilateral extremities shows mild subcutaneous edema, possibly cellulitis but no signs of osteomyelitis. Patient was also noted to have a pressure related ulcer to the left heel. Lower extremity arterial Doppler showed no significant stenosis. Vascular surgery evaluated the ulcers but recommended no interventions at this time. Podiatry already on board. 01/20/2025: Held insulin Lantus, discontinued lispro, mild sliding scale q.4 hours only. Started IV fluconazole for candidal infection in the groin. Podiatry reconsulted for evaluation of bilateral lower extremity ulcers. GI consult for anemia and positive stool occult blood. Discontinued linezolid and aztreonam, started on cefepime, vancomycin and metronidazole. 01/21/25: notes improved but continued nausea, new onset abdominal pain 9-10/10, localized to mid abdomen. Patient refused MRI owing to abdominal pain, we will reattempt tomorrow. Added metoclopramide qD along with norco and morphine as needed. Blood glucose in 290s, resumed lantus 7units qAM, however, dropping blood sugar by 4pm therefore discontinued lantus again. Pt refuses to eat and has severe aversion to food 01/22/25: improved abdominal pain today -01/30, agreeable to CT abdomen however still refusing MRI L foot. Plan to reattempt tomorrow. new moderate R sided hydronephrosis noted, urology consulted. denies dyspnea, sob. improving nausea. 01/23/2025: Patient notes feeling weaker than yesterday, denies abdominal pain. On physical exam decreased breath sounds more prominent on the left side and some crackles bibasilar. Discontinued vancomycin and started patient on daptomycin. Repeated left foot MRI which showed cellulitis in the lateral 4 for deep to the 5th metatarsal bone marrow wound is noted with overlying dressing, no evidence of osteomyelitis. IV furosemide was increased to 40 mg b.i.d. and patient was transferred to D [facility]. 01/24/2025: Overnight patient was intubated due to increasing respiratory distress, patient also underwent thoracentesis with 900 mL of fluid removed on the left side. For starvation/diabetic ketoacidosis, patient was started on an insulin drip and D10, gap was closed and bicarb was stabilized at 20. Blood glucose was 100 with a insulin drip was stopped, patient was started on D5 water at 50 cc/hours. Nephrology increased IV Lasix to 80 mg b.i.d. along with plan for renal replacement therapy tentatively in the p.m.. 01/25/2025- patient received right IJ Dean cath HD cath yesterday. Dialysis done 1 L removed. Today patient continues to have right upper extremity edema 2+. Left upper extremity is restricted has trace pitting edema and restricted due to history of DVT. Patient also has 1 to trace pedal edema bilaterally. Up to mid shins. Patient is not requiring any vasopressors. Patient is ventilated and due to acute hypoxic respiratory failure. Patient has no p.o. intake due to large gastric bubble and possible gastroparesis from prolonged uncontrolled diabetes. We will do TPN via PICC line now and hold off any enteral feeds. Continue IV antibiotics. Patient is anemic less than 7, 1 unit PRBC. Tentative plan to get EPO with HD, which may help. No sources of obvious hemorrhage. We are continuing D5 W for hypernatremia. We will do some education vacation today and if goes well possible CPAP trials tomorrow. We will continue sliding scale insulin Q 2. Patient antibiotics IV is linezolid only. 01/26/2025-no dialysis today. No lower extremity edema. Right upper extremity edema looks improved. Today doing sedation vacation and CPAP trial. Some electrolyte abnormalities not concerning nephrology reviewed. Patient on dialysis but still makes some urine 150 dark brown color. Patient is getting broad-spectrum antibiotics. Clinimix. Sedation vacation but otherwise patient was on Versed and fentanyl. Heart rate upper end of normal in the 100s. Blood pressure stable. No vasopressors. We will decrease Accu-Cheks to q.4. Decrease D5 to 30, being used for recurrent hypoglycemia. Otherwise continue primary team's plan. 01/27/2025: Patient seen and examined at bedside. Noted to have fluid overload, severe scrotal swelling, 2+ lower extremity nonpitting edema up to the thighs along with scleral edema was noted. Urine output of 325 mL in the past 24 hours. Undergoing dialysis today. Had an apneic episode during CPAP trial on 01/26/2025. 01/28/2025: Patient seen and examined at bedside. Minimal improvement in edema, s/p dialysis yesterday on 01/27/2025. Continues to have nonpitting edema up to knees along with scleral and scrotal edema. Jaundiced appearance noted. 01/29/25: Patient seen and examined at bedside. improved UOP since yesterday, worsening inspiratory crackles and LE edema. completed dialysis today, required 4mcg/hr of norepinephrine during dialysis. noted to have scabbed lesions on the penis. 01/30/2025: Patient seen and examined at bedside, improved lower extremity edema. Detailed discussions held with patient's parents at bedside. 01/31/2025: Patient seen and examined [place] bedside[place] [address] today. Discontinued linezolid today on day 8 of treatment, started IV vancomycin per pharmacy after approval from Nephrology to have the dose timed with dialysis sessions. Repleted potassium with 40 mEq KCl rider. Urine output 100 mL in the last 24 hours, 700 mL of stool output via rectal tube. 02/01/25 patient remains intubated. Sedated. Sedation includes fentanyl 175 Versed 8. Continues to getting IV antibiotics broad-spectrum. Patient on ventilator a.c. 18/450/30%/5.0. Fecal tube with liquid output. Owens scant urine dark brown. Left upper extremity with pitting edema, dry other extremities. Tachycardic 114 sinus tachycardia. Continue primary team's plan of IV antibiotics, ongoing bilateral effusions, continuing dialysis with Nephrology. Platelets stable.. We will continue primary team's plan. No changes today. 02/02/2025 doing trial of CPAP patient not following commands. He is also on HD. Pulmonology bedside recommending against Versed. Likely sedatives we will still be the system as patient is not making any urine. We will try sedation vacation as long as patient can tolerate it.. His pupils are minimally responsive to light. But cough and gag reflex are present. Currently Versed fentanyl and Precedex are turned off. He is on spontaneous breathing trial CPAP and doing well. We will continuing IV antibiotics. Multiple lab abnormalities high ALP, thrombocytopenia. Patient is not on any heparin for concern for hit. Likely liver failure, GI is onboard giving ursodeoxycholic acid. We need to get GGT, PT INR PTT. And continuing further evaluation. Primary team to continue management tomorrow. Reviewed: Care Plan, H&P, Labs, Medications, Previous Orders, Radiology Changes from previous H/P or p: No Changes General: Per HPI Eyes: No Pain, No Vision change, No Conjunctivae inflammation, No Eyelid inflammation, No Other, No Redness ENT: No Ear pain, No Ear discharge, No Nose pain, No Nose discharge, No Nose congestion, No Mouth pain, No Mouth swelling, No Throat pain, No Throat swelling, No Other Cardiovascular: No Chest Pain, No Palpitations, No Orthopnea, No Paroxysmal Noc. Dyspnea, No Edema, No Lt Headedness, No Other Respiratory: No Cough, No Dry, No Shortness of breath, No SOB with excertion, No Wheezing, No Hemoptysis, No Pleuritic Pain, No Sputum, No Other Gastrointestinal: No Nausea, No Vomiting, No Abdominal Pain, No Diarrhea, No Constipation, No Melena, No Hematochezia, No Other Genitourinary: No Dysuria, No Frequency, No Incontinence, No Hematuria, No Retention; Other (Owens catheter in place) Musculoskeletal: No other, No neck pain, No shoulder pain, No arm pain, No back pain, No hand pain, No leg pain, No foot pain Skin: No Rash, No Lesions, No Jaundice, No Bruising, No Other Objective Vitals Vital Signs Date Time Temp Pulse Resp B/P (MAP) Pulse Ox O2 Delivery O2 Flow Rate FiO2 02/02/25 11:28 106 18 149/77 (101) 100 30 02/02/25 10:00 Mechanical Ventilator+ 02/02/25 08:00 98.3 98.3 Intake/Output Intake and Output 02/02/25 07:00 Intake Total 1404.0 ml Output Total 800 ml Balance 604.0 ml Intake Oral 160 ml IV Total 577.0 ml Tube Feeding 667 ml Output Urine Total 250 ml Stool Total 550 ml Exam General Appearance: Intubated and sedated. Malnourished, in mild distress. Jaundiced Head Exam: Normal inspection. No vision in right eye, decreased vision in left eye, minimally reactive pupils. Scleral edema Pulmonary/Respiratory: Chest non-tender. decreased bilateral breath sounds, no crackles, no wheezing. Cardiovascular/Chest: Tachycardic. No murmurs. No JVD. Abdominal Exam: Normal bowel sounds. Soft. normal abdomen, no visible veins, nontender No hepatospenomegaly. No masses Lower extremities: 2+ nonpitting lower extremity edema up to the thighs. Left heel pressure ulcer noted. Multiple diabetic foot ulcers on bilateral feet, largest 1 noted on left plantar foot with a dark black necrotic appearance Thoughts/Psych: Normal thought pattern. Appropriate mood and affect Skin Exam: improving groin lesions, redness noted along right gluteal area, scrotal swelling. General Appearance: Other (Confused and lethargic) HEENT: Atraumatic, PERRLA, EOMI, Mucous membr. moist/pink Neck: Supple Lungs: Clear to auscultation, Normal air movement Cardiovascular: Regular rate, Normal S1, Normal S2, No murmurs, Gallops, Rubs Abdomen: Normal bowel sounds, Soft, No tenderness Neuro: Other (Confused, unable to exam) Psych/Mental Status: Other (Lethargic) Medications Current Medications Medications Dose Ordered Sig/Zaria Route Start Time Stop Time Status Last Admin Dose Admin Famotidine 20 mg Q12HR IV 01/07/25 10:00 UNV Diagnostic Test (Pha) 1 strip IQ4HR 01/07/25 08:00 Cancel Calcium Gluconate/ Sodium Chloride 50 ml @ 100 mls/hr Q30M IV 01/08/25 17:30 01/08/25 18:29 Cancel Pantoprazole Sodium 40 mg BID IV 01/10/25 10:00 02/02/25 07:48 40 MG Midazolam HCl 50 ml @ 1 mls/hr Q24H IV 01/24/25 04:00 02/01/25 22:47 7 MLS/HR Norepinephrine Bitartrate 250 ml @ 3.75 mls/hr Q24H IV 01/24/25 04:30 01/29/25 09:52 3.75 MLS/HR Sodium Chloride 10 ml QSHIFT@10,22 IV 01/24/25 22:00 02/02/25 07:48 10 ML Nystatin 1 applic BID TOP 01/24/25 22:00 02/02/25 07:48 1 APPLIC Diagnostic Test (Pha) 1 strip Q4HR 01/26/25 14:00 UNV Amino Acid Protein 30 ml TIDWM PO 01/28/25 18:00 02/02/25 07:48 30 ML Enteral Nutritional Formula 1,000 ml 30ML/HR GT 01/29/25 18:15 02/01/25 03:40 1,000 ML Metoclopramide HCl 5 mg Q8HR IV 01/30/25 14:00 02/02/25 06:34 5 MG Vancomycin HCl 0 ml @ 0 mls/hr UD IV 01/31/25 14:30 Cancel Diagnostic Test (Pha) 1 strip IQ4HR 01/31/25 16:00 02/02/25 08:00 1 STRIP Insulin Human Regular IQ4HR SC 01/31/25 16:00 02/02/25 11:20 6 UNITS Dextrose 50 ml UD PRN IV 01/31/25 14:45 Ursodiol 300 mg BID NG 02/01/25 22:00 02/02/25 07:48 300 MG Furosemide 40 mg BIDD IV 02/01/25 18:00 02/02/25 06:34 40 MG Fentanyl Citrate 250 ml @ 2.5 mls/hr Q24H IV 02/02/25 08:00 Laboratory Results Laboratory Tests 02/02/25 04:30 02/02/25 04:37 Chemistry Test 02/02/25 04:37 Albumin 2.3 g/dL (3.2-4.8) L Calcium Level 8.2 mg/dL (8.7-10.4) L Magnesium Level 2.1 mg/dL (1.6-2.6) Total Protein 5.1 g/dL (5.7-8.2) L LFT Test 02/02/25 04:37 Alanine Aminotransferase (ALT) 12 U/L (7-40) Alkaline Phosphatase > 2300 U/L (46-116) H Aspartate Amino Transferase (AST) 65 U/L (13-40) H Total Bilirubin 4.8 mg/dL (0.2-1.0) H Urinalysis Test 01/08/25 18:27 01/10/25 11:50 01/22/25 17:30 Urine Osmolality 300 mOsm/kg Urine Creatinine 26.27 mg/dL (30.0-125.0) L Urine Protein/Creatinine Ratio 7.12 Urine Sodium 79 mmol/L (40-220) Urine Total Protein 187.1 mg/dL (1-14) H Urine Color Colorless (Yellow) Urine Clarity Turbid (Clear) H Urine pH 6.0 (5.0-9.0) Urine Specific [place] 1.011 (1.001-1.035) Urine Protein 2+ (Negative) H Urine Ketones Negative (Negative) Urine Blood 3+ /uL (Negative) H Urine Nitrite Negative (Negative) Urine Bilirubin Negative (Negative) Urine Urobilinogen Normal mg/dL (Negative) Urine Leukocyte Esterase Negative /uL (Negative) Urine RBC 702 /hpf (0 - 3) Urine Microscopic WBC < 1 /HPF (0-3) Urine Squamous Epithelial Cells Few /hpf (<5) Urine Bacteria None seen /hpf (None Seen) Urine Hyaline Casts Few /lpf (0 - 2) Urine Mucus Few (None Seen) Urine Glucose 2+ mg/dL (Normal) H Blood Gas Results Test 02/02/25 06:57 Arterial Blood pH 7.424 (7.350-7.450) FiO2 % 30.0 Microbiology Microbiology Date/Time Source Procedure Growth Status 01/26/25 08:46 Urine - [place] Urine Culture - Final Complete 01/24/25 04:15 Sputum Gram Stain - Final Complete 01/24/25 04:15 Sputum Respiratory Culture - Final Complete 01/23/25 20:30 Pleural Fluid Gram Stain - Final Complete 01/23/25 20:30 Pleural Fluid Body Fluid Culture - Final Complete 01/19/25 16:06 Nose MRSA Screen - Final Complete 01/16/25 19:00 Blood Blood Culture - Final NO GROWTH AFTER 5 DAYS OF INCUBATION. Complete 01/08/25 10:37 Stool Stool Culture - Final Complete 01/08/25 10:37 Stool Shiga Toxin I & II - Final Complete Labs and/or images reviewed: Labs reviewed by me, Image(s) reviewed by me Assessment/Plan Assessment/Plan Neurology # acute metabolic encephalopathy likely due to DKA vs Sepsis, improving - head CT from 01/07/2025: No acute territorial infarct, intracranial hemorrhage or mass effect - head CT from 01/19/2025: No acute intracranial abnormality - monitor Cardiovascular # runs of AFib on EKG # prolonged QTC # Essential hypertension - avoiding QT prolonging drugs - echocardiogram from 07/20/2022: Overall preserved ventricular systolic function. EF 60%. Grade 1 diastolic dysfunction. - increased amlodipine to 10mg qD - repeat echo: Mild LVH and mild LV diastolic dysfunction. LVEF 65%. Slightly dilated left atrium. Moderately dilated RV and RA. Moderate degree pulmonary hypertension. Normal valves and no effusion. - monitor Respiratory # Community acquired pneumonia, Gram-positive versus Gram-negative # Acute hypoxic respiratory failure due to above, intubated and mechanically ventilated # moderate-large b/l Pleural effusions # moderate pulmonary hypertension with RVSP 46 mmHg - CXR 01/08/25: Bibasilar atelectasis or pneumonia. - CXR 01/20/25: Patchy bilateral airspace disease, [id number], slightly increased - previously on meropenem and vancomycin, stopped on 01/12/2025 - started on aztreonam on 01/17/2025, linezolid 01/16/2025 - discontinued aztreonam and linezolid on 01/20/2025 - started cefepime, vancomycin and metronidazole on 01/20/2025 - discontinued vancomycin 01/23/2025 - s/p thoracentesis with 900 mL of fluid removed on 01/23/2025 Ventilator: AC/VC Tidal volume 450 Respiratory rate 18 Peep 8 FiO2 35% GI # Acute intractable abdominal pain (01/21/25), improved # Microcytic anemia possibly 2' to ?LGI bleed; Hb 7.8 # Moderate abdominopelvic ascites # Peptic ulcer prophylaxis # gallbladder hydrops # isolated rise in alkaline phosphatase likely from cholestasis? # hypokalemia - stool occult blood positive - GI consult - CT abdomen pelvis from 01/07/2025: Nonspecific periportal edema. Incidental finding. -Pantoprazole 40 mg IV daily - serum lipase 113 - repeat CT abdomen pelvis (01/22/25): Moderate to large bilateral pleural effusions with patchy and consolidative infiltrates in the lung bases likely a combination of pneumonia and atelectasis.mLow to moderate volume abdominopelvic ascites and diffuse subcutaneous edema suggestive of anasarca. Moderate right hydronephrosis without visualization of hydroureter or obstructing calculi. This appearance is new versus CT scan dated 01/07/2025. Gallbladder hydrops without visualization of gallstones. This appearance may indicate acalculous cholecystitis. Fluid-filled colon with multiple air-fluid levels present, possibly related to diarrheal illness. No evidence of bowel obstruction, acute appendicitis, or other acute process in the abdomen or pelvis. 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 Moderate right hydronephrosis without visualization of hydroureter or obstructing calculi. This appearance is new versus CT scan dated 01/07/2025. Gallbladder hydrops without visualization of gallstones. This appearance may indicate acalculous cholecystitis. Fluid- filled colon with multiple air-fluid levels present, possibly related to diarrheal illness. No evidence of bowel obstruction, acute appendicitis, or other acute process in the abdomen or pelvis. - urology consulted - reconsulted nephrology - serum parathyroid hormone 185.9, corrected calcium 8.7 Infectious disease # bilateral lower extremity cellulitis # left lower extremity diabetic foot ulcer on the plantar aspect growing Staph aureus # Sepsis due to above # left heel pressure ulcer # ruled out DVT # Fungal cutaneous infection in b/l groin - MRI from 01/09/2025 shows Mild diffuse subcutaneous soft-tissue edema; possibly cellulitis. No bone marrow edema is present to suggest fracture or acute osteomyelitis. - bilateral lower extremity arterial Doppler: No hemodynamically significant stenosis based on peak systolic velocity criteria. - bilateral lower extremity venous Doppler: No right or left femoropopliteal venous thrombosis - discontinued aztreonam and linezolid on 01/20/2025 - started cefepime, vancomycin and metronidazole on 01/20/2025 - podiatry on board - left foot MRI: No MR evidence of osteomyelitis. Cellulitis and lateral 4 for deep of the 5th metatarsal bone were wound is noted overlying dressing. Edema in the intrinsic muscle of the foot may reflect sequelae of denervation, or myositis. - discontinued vancomycin 01/23/2025, started patient on daptomycin on 01/23/2025 - discontinued daptomycin, vancomycin and cefepime on 01/24/2025 - started linezolid on 01/24/2025 - discontinued linezolid on 01/31/2025 owing to dropping platelet count - started IV vancomycin per pharmacy after approval from Nephrology to have the dose timed with dialysis sessions - topical nystatin Hem/onc # microcytic anemia # thrombocytosis likely secondary to sepsis - s/p 2 PRBC - GI on board - monitor Endocrine # DKA, now resolved # recurrent episodes of hypoglycemia # severe protein calorie malnutrition # diabetic/starvation ketoacidosis, improved - discontinued lispro - holding insulin Lantus as patient continues to get hypoglycemic - mild sliding scale insulin - Accu-Cheks q4hr Diet Nepro carb steady with ProStat tube feedings Lines - right PICC line paced on 01/24/2025 - right-sided Dean catheter placed on 01/24/2025 - Owens catheter exchanged on 01/26/2025 Drips Fentanyl 150 microgram/minute Versed 8 mg Off of Levophed as of 01/24/2025; briefly required 4cmg/hr during dialysis on 01/29/25 Transeferred to OXANA 01/23/25 Plan discussed with: Patient Date of Service: Feb 02, 2025 Billing Provider: BHAVANA HERNANDEZ MD Common Visit Codes: [id number] CARE 30-74 MIN BHAVANA HERNANDEZ MD Feb 02, 2025 11:54
--- NOTE | 2025-02-02 13:57 | DVHPN2 ---
Progress Note - Dictate Date Seen: Feb 02, 2025 Medical Necessity Reason Pt with a Central, PICC or Fol: No The following are medically ne: Jones Catheter Reason for jones catheter: Strict I&O vital signs Vital Sign Date Time Temp Pulse Resp B/P (MAP) Pulse Ox O2 Delivery O2 Flow Rate FiO2 02/02/25 13:45 110 20 151/76 (101) 100 02/02/25 12:00 Mechanical Ventilator+ 30 30 02/02/25 12:00 98.0 98.0 Total Intake and Output 02/01/25 02/01/25 02/02/25 15:00 23:00 07:00 Intake Total 304.0 ml 598.5 ml 501.5 ml Output Total 450 ml 350 ml Balance 304.0 ml 148.5 ml 151.5 ml medications Current Medications Medications Dose Ordered Sig/Zaria Route Start Time Stop Time Status Last Admin Dose Admin Famotidine 20 mg Q12HR IV 01/07/25 10:00 UNV Diagnostic Test (Pha) 1 strip IQ4HR 01/07/25 08:00 Cancel Calcium Gluconate/ Sodium Chloride 50 ml @ 100 mls/hr Q30M IV 01/08/25 17:30 01/08/25 18:29 Cancel Pantoprazole Sodium 40 mg BID IV 01/10/25 10:00 02/02/25 07:48 40 MG Midazolam HCl 50 ml @ 1 mls/hr Q24H IV 01/24/25 04:00 02/01/25 22:47 7 MLS/HR Norepinephrine Bitartrate 250 ml @ 3.75 mls/hr Q24H IV 01/24/25 04:30 01/29/25 09:52 3.75 MLS/HR Sodium Chloride 10 ml QSHIFT@10,22 IV 01/24/25 22:00 02/02/25 07:48 10 ML Nystatin 1 applic BID TOP 01/24/25 22:00 02/02/25 07:48 1 APPLIC Diagnostic Test (Pha) 1 strip Q4HR 01/26/25 14:00 UNV Amino Acid Protein 30 ml TIDWM PO 01/28/25 18:00 02/02/25 12:00 30 ML Enteral Nutritional Formula 1,000 ml 30ML/HR GT 01/29/25 18:15 02/01/25 03:40 1,000 ML Metoclopramide HCl 5 mg Q8HR IV 01/30/25 14:00 02/02/25 13:38 5 MG Vancomycin HCl 0 ml @ 0 mls/hr UD IV 01/31/25 14:30 Cancel Diagnostic Test (Pha) 1 strip IQ4HR 01/31/25 16:00 02/02/25 12:00 1 STRIP Insulin Human Regular IQ4HR SC 01/31/25 16:00 02/02/25 11:20 6 UNITS Dextrose 50 ml UD PRN IV 01/31/25 14:45 Ursodiol 300 mg BID NG 02/01/25 22:00 02/02/25 07:48 300 MG Furosemide 40 mg BIDD IV 02/01/25 18:00 02/02/25 06:34 40 MG Fentanyl Citrate 250 ml @ 2.5 mls/hr Q24H IV 02/02/25 08:00 laboratory and microbiology Laboratory Tests 02/02/25 04:37 02/02/25 04:30 Test 02/02/25 04:37 Range/Units Serum Glucose 154 H 74-106 mg/dL Assessment/Plan Impression Acute hypoxemic respiratory failure Pneumonia Anemia DKA Patient seen and examined in ICU Events On mechanical ventilation S/p re-intubation Able to tolerate pressure support 02/28 Off sedation, appears groggy Was previously on Versed drip Labs and imaging reviewed ABG reviewed Management Vent support Titrate to maintain sats 90% or above When patient is more awake, proceed to weaning trial Pressure support 01/25, extubate when ready Continue antibiotics F/u cultures Bronchodilators Monitor renal function Monitor electrolytes Supplement as needed Pressors as needed for hemodynamic support To maintain a mean arterial pressure of 65 mmHg DVT prophylaxis Critical care time 35 minutes Dietary Evaluation Review Recommendations by RD: Increase Calorie Intake Comments: Nutrition Recommendation: 1) Vital AF 1.2Cal @ 25ml/hr along with Pro-stat 1 pk BID. start @ 20ml/hr, increase 10ml/hr Q4H until goal is reached. TF @ goal volume along with propofol, IV D5wNS0.45%, and Pro-stat provides 1684 kcal (100% energy needs), 75gm protein (100% protein needs), 487ml free water. 2) TPN to meet 75% estimated needs if remains NPO 3) Bryce 1 pk BID for DFU Expected Outcomes/Goals: DFU to improve To maintain/gain weight To meet at least 75% estimated needs Fu 2-3 days Interpretation of weight loss: up to 5% in 1 month Muscle Mass (Severe): Mod to Severe Depletion Protein Calorie Malnutrition: Non-Severe Is there a minimum of two crit: Yes Plan discussed with: Other (Rn) PAM LEHMAN MD Feb 02, 2025 13:57
--- NOTE | 2025-02-02 17:01 | DVHPN2 ---
Progress Note - Dictate Date Seen: Feb 02, 2025 Medical Necessity Reason Pt with a Central, PICC or Fol: No The following are medically ne: Jones Catheter Reason for jones catheter: Strict I&O Subjective No new complaints Patient is still intubated and sedated, FiO2 30% peep of five Patient has CPAP trial Patient has been started on enteral tube feedings at 30 mL/hour and IV TPN is discontinued Patient has a flexi Seal in place in his moving his bowels Moderate persistent and worsening elevation in alkaline phosphatase H&H is stable at 7.7; leukocytosis is improving Repeat ultrasound of the gallbladder is normal but patient continues to have rising alkaline phosphatase Rising elevated alkaline phosphatase over 2300 today possibly related to medication effect from linezolid vital signs Vital Sign Date Time Temp Pulse Resp B/P (MAP) Pulse Ox O2 Delivery O2 Flow Rate FiO2 02/02/25 16:30 107 22 151/78 (102) 100 02/02/25 16:00 30 02/02/25 16:00 Mechanical Ventilator+ 02/02/25 16:00 100.2 100.2 Total Intake and Output 02/01/25 02/01/25 02/02/25 15:00 23:00 07:00 Intake Total 304.0 ml 598.5 ml 501.5 ml Output Total 450 ml 350 ml Balance 304.0 ml 148.5 ml 151.5 ml medications Current Medications Medications Dose Ordered Sig/Zaria Route Start Time Stop Time Status Last Admin Dose Admin Famotidine 20 mg Q12HR IV 01/07/25 10:00 UNV Diagnostic Test (Pha) 1 strip IQ4HR 01/07/25 08:00 Cancel Calcium Gluconate/ Sodium Chloride 50 ml @ 100 mls/hr Q30M IV 01/08/25 17:30 01/08/25 18:29 Cancel Pantoprazole Sodium 40 mg BID IV 01/10/25 10:00 02/02/25 07:48 40 MG Midazolam HCl 50 ml @ 1 mls/hr Q24H IV 01/24/25 04:00 02/01/25 22:47 7 MLS/HR Norepinephrine Bitartrate 250 ml @ 3.75 mls/hr Q24H IV 01/24/25 04:30 01/29/25 09:52 3.75 MLS/HR Sodium Chloride 10 ml QSHIFT@10,22 IV 01/24/25 22:00 02/02/25 07:48 10 ML Nystatin 1 applic BID TOP 01/24/25 22:00 02/02/25 07:48 1 APPLIC Diagnostic Test (Pha) 1 strip Q4HR 01/26/25 14:00 UNV Amino Acid Protein 30 ml TIDWM PO 01/28/25 18:00 02/02/25 12:00 30 ML Enteral Nutritional Formula 1,000 ml 30ML/HR GT 01/29/25 18:15 02/01/25 03:40 1,000 ML Metoclopramide HCl 5 mg Q8HR IV 01/30/25 14:00 02/02/25 13:38 5 MG Vancomycin HCl 0 ml @ 0 mls/hr UD IV 01/31/25 14:30 Cancel Diagnostic Test (Pha) 1 strip IQ4HR 01/31/25 16:00 02/02/25 16:04 1 STRIP Insulin Human Regular IQ4HR SC 01/31/25 16:00 02/02/25 16:04 3 UNITS Dextrose 50 ml UD PRN IV 01/31/25 14:45 Ursodiol 300 mg BID NG 02/01/25 22:00 02/02/25 07:48 300 MG Furosemide 40 mg BIDD IV 02/01/25 18:00 02/02/25 06:34 40 MG Fentanyl Citrate 250 ml @ 2.5 mls/hr Q24H IV 02/02/25 08:00 objective Intubated sedated hemodynamically stable Mild Abdominal distention no masses Generalized anasarca and scrotal swelling laboratory and microbiology Laboratory Tests 02/02/25 04:37 02/02/25 04:30 Test 02/02/25 04:37 Range/Units Serum Glucose 154 H 74-106 mg/dL Problems(with codes): (1) Elevated AFP (2) Gallstones (3) Gallbladder hydrops (4) History of diabetic ketoacidosis (5) Cannabinoid hyperemesis syndrome (6) Intractable abdominal pain (7) Inadequate oral intake (8) GI bleed (9) Coffee ground emesis Prognosis Plan TPN has been discontinued and IV linezolid as it was DC Start ursodiol 300 mg p.o. twice a day were via NG tube Continue supportive care Monitor labs MRCP when possible and patient more medically stable Prognosis remains guarded Dietary Evaluation Review Recommendations by RD: Increase Calorie Intake Comments: Nutrition Recommendation: 1) Vital AF 1.2Cal @ 25ml/hr along with Pro-stat 1 pk BID. start @ 20ml/hr, increase 10ml/hr Q4H until goal is reached. TF @ goal volume along with propofol, IV D5wNS0.45%, and Pro-stat provides 1684 kcal (100% energy needs), 75gm protein (100% protein needs), 487ml free water. 2) TPN to meet 75% estimated needs if remains NPO 3) Bryce 1 pk BID for DFU Expected Outcomes/Goals: DFU to improve To maintain/gain weight To meet at least 75% estimated needs Fu 2-3 days Interpretation of weight loss: up to 5% in 1 month Muscle Mass (Severe): Mod to Severe Depletion Protein Calorie Malnutrition: Non-Severe Is there a minimum of two crit: Yes Plan discussed with: Other (None) LETTY GENTILE MD Feb 02, 2025 17:01
[2025-02-03] VITALS (102 sets, daily range): BP systolic 115–181; BP diastolic 64–96; PULSE 76–111; RESP 14–33; TEMP 94.2–99.3; O2SAT 100
[2025-02-03] MEDS: hydrALAZINE HCL 20 MG/ML VL IV ONE (00:55)
--- NOTE | 2025-02-03 04:52 | DVH ---
CHEST RADIOGRAPH Indication: INTUBATED Technique: Single frontal view of the chest was obtained COMPARISON: XY CHEST PORTABLE on DOS: 02/02/25, XY CHEST PORTABLE on DOS: 02/01/25, XY CHEST PORTABLE o n DOS: 01/31/25, XY CHEST PORTABLE on DOS: 01/30/25, XY CHEST PORTABLE on DOS: 01/29/25 FINDINGS: Lines and Tubes: Slight interval advancement of endotracheal tube such that the tip now projects appr oximately 3.1 cm above the level of the nata. Remaining lines and tubes unchanged. Lungs: Patchy multifocal bilateral pulmonary airspace disease is grossly stable in appearance. There is slight interval decrease in right pleural effusion. No evidence of left pleural effusion. No pneumothorax. Cardiomediastinal contours: Unremarkable Bones: Unremarkable IMPRESSION: 1. Slight interval decrease in right pleural effusion. 2. Stable appearing patchy multifocal bilateral pulmonary airspace disease. 3. Slight interval advancement of endotracheal tube as above. Remaining lines and tubes unchanged.
[2025-02-03 06:43] LABS: INR 1.14 (0.9-1.15); Partial Thromboplastin Time 28.0 SEC (24.5-34.5); Prothrombin Time 11.9 sec (9.3-11.8)
[2025-02-03 06:55] LABS: Alanine Aminotransferase 18 U/L (7-40); Anion Gap 9 (5-15); Carbon Dioxide 22 mmol/L (20-31); Chloride 103 mmol/L (98-107)
[2025-02-03 06:56] LABS: Calcium 8.3 mg/dL (8.7-10.4); Glucose 123 mg/dL (74-106); Magnesium 2.2 mg/dL (1.6-2.6); Potassium 3.4 mmol/L (3.5-5.1); Sodium 134 mmol/L (136-145)
[2025-02-03 06:57] LABS: BUN/Creatinine Ratio 15.1 (10.0-20.0); Blood Urea Nitrogen 38 mg/dL (9-23); Total Protein 5.2 g/dL (5.7-8.2)
[2025-02-03 06:58] LABS: Albumin 2.2 g/dL (3.2-4.8); Bilirubin, Total 5.5 mg/dL (0.2-1.0)
[2025-02-03 07:02] LABS: Hematocrit 26.2 % (41.0-53.0); Hemoglobin 8.2 g/dL (13.5-17.5); Mean Corpuscular Hemoglobin 25.4 pg (28.0-32.0); Mean Corpuscular Volume 80.9 fL (80.0-100.0); Nucleated Red Blood Cells % 1.3 %
[2025-02-03 07:05] LABS: Base Excess 0.5 mmol/L (-2.0-3.0)
[2025-02-03 07:14] LABS: Alkaline Phosphatase > 2300 U/L (46-116)
[2025-02-03] MEDS: POTASSIUM EFFERVESENT TAB 25 MEQ GT ONE (12:33)
[2025-02-03] MEDS: FUROSEMIDE INJECTION 100 MG in SODIUM CHL 0.9% 100 ML IV SCH (12:34)
[2025-02-03 16:25] LABS: Iron 44.0 ug/dL (65-175)
[2025-02-03 16:26] LABS: Total Iron Binding Capacity 110.0 ug/dL (250-425)
[2025-02-03] MEDS ORDERED: VANCOMYCIN PER PHARMACY 0 MG IV SCH (16:45)
--- NOTE | 2025-02-03 17:22 | DVHPNRES ---
Progress Note Date Seen: Feb 03, 2025 Resident Creating Document: ANABELL ORDOÑEZ RESIDENT Medical Necessity Reason Pt with a Central, PICC or Fol: No The following are medically ne: Jones Catheter Reason for jones catheter: Strict I&O Subjective Review of Systems Patient is a 44-year-old male with known history of type 1 diabetes mellitus who presented on 01/06/2025 via EMS for altered level of consciousness. Per EMS, the patient was found unresponsive with a blood glucose of 931 and received 400 cc IV fluids on route. On arrival he exhibited hypoxia, generalized weakness, increased work of breathing necessitating intubation and mechanical ventilation. Patient was started on IV insulin drip, Zosyn and vancomycin with bicarbonate for severe acidosis. A right femoral central line, midline and peripheral IVs were also placed. Of note, patient has a history of poor adherence to his insulin therapy. Per patient's father, patient lives alone in a trailer and had not been heard from since 01/02/2025. Patient was last hospitalized at the [facility] in November 2024 for DKA. On 01/07/2025, patient developed lip swelling while still intubated, chart review revealed a penicillin allergy. Zosyn was discontinued and patient was treated with methylprednisolone and transitioned to meropenem. Nephrology was consulted for RADHA and hypernatremia. A 01/10/2025, patient had begun to improve and was weaned off sedation and was extubated on 01/12/2025 and transferred telemetry. Antibiotics were discontinued at that time due to uncertainty about the cause of leukocytosis (steroids versus infection). However, WBCs continued to trend upwards and the patient developed low-grade fevers, subsequently restarted on linezolid and aztreonam. Patient has bilateral diabetic foot ulcers, left side more advanced than right. MRI of bilateral extremities shows mild subcutaneous edema, possibly cellulitis but no signs of osteomyelitis. Patient was also noted to have a pressure related ulcer to the left heel. Lower extremity arterial Doppler showed no significant stenosis. Vascular surgery evaluated the ulcers but recommended no interventions at this time. Podiatry already on board. 01/20/2025: Held insulin Lantus, discontinued lispro, mild sliding scale q.4 hours only. Started IV fluconazole for candidal infection in the groin. Podiatry reconsulted for evaluation of bilateral lower extremity ulcers. GI consult for anemia and positive stool occult blood. Discontinued linezolid and aztreonam, started on cefepime, vancomycin and metronidazole. 01/21/25: notes improved but continued nausea, new onset abdominal pain 9-05/02, localized to mid abdomen. Patient refused MRI owing to abdominal pain, we will reattempt tomorrow. Added metoclopramide qD along with norco and morphine as needed. Blood glucose in 290s, resumed lantus 7units qAM, however, dropping blood sugar by 4pm therefore discontinued lantus again. Pt refuses to eat and has severe aversion to food 01/22/25: improved abdominal pain today 6-01/30, agreeable to CT abdomen however still refusing MRI L foot. Plan to reattempt tomorrow. new moderate R sided hydronephrosis noted, urology consulted. denies dyspnea, sob. improving nausea. 01/23/2025: Patient notes feeling weaker than yesterday, denies abdominal pain. On physical exam decreased breath sounds more prominent on the left side and some crackles bibasilar. Discontinued vancomycin and started patient on daptomycin. Repeated left foot MRI which showed cellulitis in the lateral 4 for deep to the 5th metatarsal bone marrow wound is noted with overlying dressing, no evidence of osteomyelitis. IV furosemide was increased to 40 mg b.i.d. and patient was transferred to D . 01/24/2025: Overnight patient was intubated due to increasing respiratory distress, patient also underwent thoracentesis with 900 mL of fluid removed on the left side. For starvation/diabetic ketoacidosis, patient was started on an insulin drip and D10, gap was closed and bicarb was stabilized at 20. Blood glucose was 100 with a insulin drip was stopped, patient was started on D5 water at 50 cc/hours. Nephrology increased IV Lasix to 80 mg b.i.d. along with plan for renal replacement therapy tentatively in the p.m.. 01/25/2025- patient received right IJ Dean cath HD cath yesterday. Dialysis done 1 L removed. Today patient continues to have right upper extremity edema 2+. Left upper extremity is restricted has trace pitting edema and restricted due to history of DVT. Patient also has 1 to trace pedal edema bilaterally. Up to mid shins. Patient is not requiring any vasopressors. Patient is ventilated and due to acute hypoxic respiratory failure. Patient has no p.o. intake due to large gastric bubble and possible gastroparesis from prolonged uncontrolled diabetes. We will do TPN via PICC line now and hold off any enteral feeds. Continue IV antibiotics. Patient is anemic less than 7, 1 unit PRBC. Tentative plan to get EPO with HD, which may help. No sources of obvious hemorrhage. We are continuing D5 W for hypernatremia. We will do some education vacation today and if goes well possible CPAP trials tomorrow. We will continue sliding scale insulin Q 2. Patient antibiotics IV is linezolid only. 01/26/2025-no dialysis today. No lower extremity edema. Right upper extremity edema looks improved. Today doing sedation vacation and CPAP trial. Some electrolyte abnormalities not concerning nephrology reviewed. Patient on dialysis but still makes some urine 150 dark brown color. Patient is getting broad-spectrum antibiotics. Clinimix. Sedation vacation but otherwise patient was on Versed and fentanyl. Heart rate upper end of normal in the 100s. Blood pressure stable. No vasopressors. We will decrease Accu-Cheks to q.4. Decrease D5 to 30, being used for recurrent hypoglycemia. Otherwise continue primary team's plan. 01/27/2025: Patient seen and examined at bedside. Noted to have fluid overload, severe scrotal swelling, 2+ lower extremity nonpitting edema up to the thighs along with scleral edema was noted. Urine output of 325 mL in the past 24 hours. Undergoing dialysis today. Had an apneic episode during CPAP trial on 01/26/2025. 01/28/2025: Patient seen and examined at bedside. Minimal improvement in edema, s/p dialysis yesterday on 01/27/2025. Continues to have nonpitting edema up to knees along with scleral and scrotal edema. Jaundiced appearance noted. 01/29/25: Patient seen and examined at bedside. improved UOP since yesterday, worsening inspiratory crackles and LE edema. completed dialysis today, required 4mcg/hr of norepinephrine during dialysis. noted to have scabbed lesions on the penis. 01/30/2025: Patient seen and examined at bedside, improved lower extremity edema. Detailed discussions held with patient's parents at bedside. 01/31/2025: Patient seen and examined [place] [id number] [place]. Discontinued linezolid today on day 8 of treatment, started IV vancomycin per pharmacy after approval from Nephrology to have the dose timed with dialysis sessions. Repleted potassium with 40 mEq KCl rider. Urine output 100 mL in the last 24 hours, 700 mL of stool output via rectal tube. 02/01/25 patient remains intubated. Sedated. Sedation includes fentanyl 175 Versed 8. Continues to getting IV antibiotics broad-spectrum. Patient on ventilator a.c. 18/450/30%/5.0. Fecal tube with liquid output. Jones scant urine dark brown. Left upper extremity with pitting edema, dry other extremities. Tachycardic 114 sinus tachycardia. Continue primary team's plan of IV antibiotics, ongoing bilateral effusions, continuing dialysis with Nephrology. Platelets stable.. We will continue primary team's plan. No changes today. 02/02/2025 doing trial of CPAP patient not following commands. He is also on HD. Pulmonology bedside recommending against Versed. Likely sedatives we will still be the system as patient is not making any urine. We will try sedation vacation as long as patient can tolerate it.. His pupils are minimally responsive to light. But cough and gag reflex are present. Currently Versed fentanyl and Precedex are turned off. He is on spontaneous breathing trial CPAP and doing well. We will continuing IV antibiotics. Multiple lab abnormalities high ALP, thrombocytopenia. Patient is not on any heparin for concern for hit. Likely liver failure, GI is onboard giving ursodeoxycholic acid. We need to get GGT, PT INR PTT. And continuing further evaluation. Primary team to continue management tomorrow. 02/03/25: Liver function continues to decline. L lower extremity plantar wound with necrotic eschar noted, scabbing penile lesions persistent. resumed vancomycin scheduled with dialysis. scheduled family meeting for tomorrw. Objective vital signs Vital Sign Date Time Temp Pulse Resp B/P (MAP) Pulse Ox O2 Delivery O2 Flow Rate FiO2 02/03/25 17:00 98 25 126/73 (90) 100 02/03/25 16:00 Mechanical Ventilator+ 30 30 02/03/25 15:30 98.5 98.5 Total Intake and Output 02/02/25 02/02/25 02/03/25 15:00 23:00 07:00 Intake Total 100 ml 270 ml Output Total 425 ml 625 ml Balance -325 ml -355 ml medications Current Medications Medications Dose Ordered Sig/Zaria Route Start Time Stop Time Status Last Admin Dose Admin Famotidine 20 mg Q12HR IV 01/07/25 10:00 UNV Diagnostic Test (Pha) 1 strip IQ4HR 01/07/25 08:00 Cancel Calcium Gluconate/ Sodium Chloride 50 ml @ 100 mls/hr Q30M IV 01/08/25 17:30 01/08/25 18:29 Cancel Pantoprazole Sodium 40 mg BID IV 01/10/25 10:00 02/03/25 10:11 40 MG Sodium Chloride 10 ml QSHIFT@10,22 IV 01/24/25 22:00 02/03/25 10:11 10 ML Nystatin 1 applic BID TOP 01/24/25 22:00 02/03/25 10:11 1 APPLIC Diagnostic Test (Pha) 1 strip Q4HR 01/26/25 14:00 UNV Amino Acid Protein 30 ml TIDWM PO 01/28/25 18:00 02/03/25 11:26 30 ML Enteral Nutritional Formula 1,000 ml 30ML/HR GT 01/29/25 18:15 02/01/25 03:40 1,000 ML Metoclopramide HCl 5 mg Q8HR IV 01/30/25 14:00 02/03/25 13:39 5 MG Vancomycin HCl 0 ml @ 0 mls/hr UD IV 01/31/25 14:30 Cancel Diagnostic Test (Pha) 1 strip IQ4HR 01/31/25 16:00 02/03/25 15:55 1 STRIP Insulin Human Regular IQ4HR SC 01/31/25 16:00 02/03/25 15:55 2 UNITS Dextrose 50 ml UD PRN IV 01/31/25 14:45 Ursodiol 300 mg BID NG 02/01/25 22:00 02/03/25 10:11 300 MG Furosemide 100 mg/ Sodium Chloride 110 ml @ 22 mls/hr Q5H IV 02/03/25 11:15 02/03/25 12:34 22 MLS/HR Epoetin Paolo-epbx 10,000 unit TUTHSA SC 02/04/25 10:00 Vancomycin HCl 0 ml @ 0 mls/hr UD IV 02/03/25 16:45 UNV Examination General Appearance: Intubated and sedated. Malnourished, in mild distress. Jaundiced Head Exam: Normal inspection. No vision in right eye, decreased vision in left eye, minimally reactive pupils. Scleral edema Pulmonary/Respiratory: Chest non-tender. decreased bilateral breath sounds, no crackles, no wheezing. Cardiovascular/Chest: Tachycardic. No murmurs. No JVD. Abdominal Exam: Normal bowel sounds. Soft. normal abdomen, no visible veins, nontender No hepatospenomegaly. No masses Lower extremities: 2+ nonpitting lower extremity edema up to the thighs. Left heel pressure ulcer noted. Multiple diabetic foot ulcers on bilateral feet, largest 1 noted on left plantar foot with a dark black necrotic appearance Thoughts/Psych: Normal thought pattern. Appropriate mood and affect Skin Exam: improving groin lesions, redness noted along right gluteal area, scrotal swelling. penile scabs laboratory and microbiology Laboratory Tests 02/03/25 05:18 Test 02/03/25 05:18 Range/Units Serum Glucose 123 H 74-106 mg/dL Microbiology Date/Time Source Procedure Growth Status 01/26/25 08:46 Urine - Jones Port Urine Culture - Final Complete 01/24/25 04:15 Sputum Gram Stain - Final Complete 01/24/25 04:15 Sputum Respiratory Culture - Final Complete 01/23/25 20:30 Pleural Fluid Gram Stain - Final Complete 01/23/25 20:30 Pleural Fluid Body Fluid Culture - Final Complete 01/19/25 16:06 Nose MRSA Screen - Final Complete 01/16/25 19:00 Blood Blood Culture - Final NO GROWTH AFTER 5 DAYS OF INCUBATION. Complete 01/08/25 10:37 Stool Stool Culture - Final Complete 01/08/25 10:37 Stool Shiga Toxin I & II - Final Complete Labs and/or images reviewed: Labs reviewed by me, Image(s) reviewed by me Problem List/Assessment/Plan Problem List/Assessment/Plan Neurology # acute metabolic encephalopathy likely due to DKA vs Sepsis, improving - head CT from 01/07/2025: No acute territorial infarct, intracranial hemorrhage or mass effect - head CT from 01/19/2025: No acute intracranial abnormality - monitor Cardiovascular # runs of AFib on EKG # prolonged QTC # Essential hypertension - avoiding QT prolonging drugs - echocardiogram from 07/20/2022: Overall preserved ventricular systolic function. EF 60%. Grade 1 diastolic dysfunction. - increased amlodipine to 10mg qD - repeat echo: Mild LVH and mild LV diastolic dysfunction. LVEF 65%. Slightly dilated left atrium. Moderately dilated RV and RA. Moderate degree pulmonary hypertension. Normal valves and no effusion. - monitor Respiratory # Community acquired pneumonia, Gram-positive versus Gram-negative # Acute hypoxic respiratory failure due to above, intubated and mechanically ventilated # moderate-large b/l Pleural effusions # moderate pulmonary hypertension with RVSP 46 mmHg - CXR 01/08/25: Bibasilar atelectasis or pneumonia. - CXR 01/20/25: Patchy bilateral airspace disease, [id number]-[id number]-right, slightly increased - previously on meropenem and vancomycin, stopped on 01/12/2025 - started on aztreonam on 01/17/2025, linezolid 01/16/2025 - discontinued aztreonam and linezolid on 01/20/2025 - started cefepime, vancomycin and metronidazole on 01/20/2025 - discontinued vancomycin 01/23/2025 - s/p thoracentesis with 900 mL of fluid removed on 01/23/2025 Ventilator: AC/VC Tidal volume 450 Respiratory rate 18 Peep 8 FiO2 35% GI # Acute intractable abdominal pain (01/21/25), improved # cholestasis of critical illness # Microcytic anemia possibly 2' to ?LGI bleed; Hb 7.8 # Moderate abdominopelvic ascites # Peptic ulcer prophylaxis # gallbladder hydrops # hypokalemia - stool occult blood positive - GI consult - CT abdomen pelvis from 01/07/2025: Nonspecific periportal edema. Incidental finding. -Pantoprazole 40 mg IV daily - serum lipase 113 - repeat CT abdomen pelvis (01/22/25): Moderate to large bilateral pleural effusions with patchy and consolidative infiltrates in the lung bases likely a combination of pneumonia and atelectasis.mLow to moderate volume abdominopelvic ascites and diffuse subcutaneous edema suggestive of anasarca. Moderate right hydronephrosis without visualization of hydroureter or obstructing calculi. This appearance is new versus CT scan dated 01/07/2025. Gallbladder hydrops without visualization of gallstones. This appearance may indicate acalculous cholecystitis. Fluid-filled colon with multiple air-fluid levels present, possibly related to diarrheal illness. No evidence of bowel obstruction, acute appendicitis, or other acute process in the abdomen or pelvis. 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 Moderate right hydronephrosis without visualization of hydroureter or obstructing calculi. This appearance is new versus CT scan dated 01/07/2025. Gallbladder hydrops without visualization of gallstones. This appearance may indicate acalculous cholecystitis. Fluid- filled colon with multiple air-fluid levels present, possibly related to diarrheal illness. No evidence of bowel obstruction, acute appendicitis, or other acute process in the abdomen or pelvis. - urology consulted - reconsulted nephrology - serum parathyroid hormone 185.9, corrected calcium 8.7 Infectious disease # bilateral lower extremity cellulitis # left lower extremity diabetic foot ulcer on the plantar aspect growing Staph aureus # Sepsis due to above # left heel pressure ulcer # ruled out DVT # Fungal cutaneous infection in b/l groin # candidal balanitis with superimposed necrosis - MRI from 01/09/2025 shows Mild diffuse subcutaneous soft-tissue edema; possibly cellulitis. No bone marrow edema is present to suggest fracture or acute osteomyelitis. - bilateral lower extremity arterial Doppler: No hemodynamically significant stenosis based on peak systolic velocity criteria. - bilateral lower extremity venous Doppler: No right or left femoropopliteal venous thrombosis - discontinued aztreonam and linezolid on 01/20/2025 - started cefepime, vancomycin and metronidazole on 01/20/2025 - podiatry on board - left foot MRI: No MR evidence of osteomyelitis. Cellulitis and lateral 4 for deep of the 5th metatarsal bone were wound is noted overlying dressing. Edema in the intrinsic muscle of the foot may reflect sequelae of denervation, or myositis. - discontinued vancomycin 01/23/2025, started patient on daptomycin on 01/23/2025 - discontinued daptomycin, vancomycin and cefepime on 01/24/2025 - started linezolid on 01/24/2025 - discontinued linezolid on 01/31/2025 owing to dropping platelet count - started IV vancomycin per pharmacy after approval from Nephrology to have the dose timed with dialysis sessions - topical nystatin Hem/onc # microcytic anemia # thrombocytosis likely secondary to sepsis - s/p 2 PRBC - GI on board - monitor Endocrine # DKA, now resolved # recurrent episodes of hypoglycemia # severe protein calorie malnutrition # diabetic/starvation ketoacidosis, improved - discontinued lispro - holding insulin Lantus as patient continues to get hypoglycemic - mild sliding scale insulin - Accu-Cheks q4hr Diet Nepro carb steady with ProStat tube feedings Lines - right PICC line paced on 01/24/2025 - right-sided Dean catheter placed on 01/24/2025 - Jones catheter exchanged on 01/26/2025 Drips Fentanyl 150 microgram/minute Versed 8 mg Off of Levophed as of 01/24/2025; briefly required 4cmg/hr during dialysis on 01/29/25 Transeferred to OXANA 01/23/25 Intubated on 01/06/25 Extubated on 01/12/25 Intubated again on 01/24/25 critical care time excluding procedures was 56 mins Code status discussed greater than 20 minutes: Full CODE STATUS. Plan discussed with Dr. Dan Plan discussed with: Other (RN) My Orders My Orders Orders - ANABELL ORDOÑEZ RESIDENT Procedure Category Date Status Time Vancomycin Per PHA 02/03/25 Logged Pharmacy 16:45 Dietary Evaluation Review Recommendations by RD: Increase Calorie Intake Comments: Nutrition Recommendation: 1) Vital AF 1.2Cal @ 25ml/hr along with Pro-stat 1 pk BID. start @ 20ml/hr, increase 10ml/hr Q4H until goal is reached. TF @ goal volume along with propofol, IV D5wNS0.45%, and Pro-stat provides 1684 kcal (100% energy needs), 75gm protein (100% protein needs), 487ml free water. 2) TPN to meet 75% estimated needs if remains NPO 3) Bryce 1 pk BID for DFU Expected Outcomes/Goals: DFU to improve To maintain/gain weight To meet at least 75% estimated needs Fu 2-3 days Interpretation of weight loss: up to 5% in 1 month Muscle Mass (Severe): Mod to Severe Depletion Protein Calorie Malnutrition: Non-Severe Is there a minimum of two crit: Yes Date of Service: Feb 03, 2025 Billing Provider: AMY DAN MD Common Visit Codes: [id number] CARE 30-74 MIN ANABELL ORDOÑEZ Feb 03, 2025 17:22 AMY DAN MD Feb 04, 2025 13:00
[2025-02-03] MEDS: VANCOMYCIN 1GM/200ML PM 200 ML IV ONE (17:57)
[2025-02-04] VITALS (107 sets, daily range): BP systolic 113–173; BP diastolic 63–93; PULSE 85–113; RESP 15–25; TEMP 97.9–98.9; O2SAT 100
[2025-02-04 05:28] LABS: Hemoglobin 7.7 g/dL (13.5-17.5)
[2025-02-04 05:32] LABS: Hematocrit 24.0 % (41.0-53.0); Mean Corpuscular Hemoglobin 25.8 pg (28.0-32.0); Mean Corpuscular Volume 80.9 fL (80.0-100.0)
[2025-02-04 05:48] LABS: Alanine Aminotransferase 23 U/L (7-40); Anion Gap 11 (5-15); BUN/Creatinine Ratio 17.1 (10.0-20.0); Carbon Dioxide 23 mmol/L (20-31); Chloride 102 mmol/L (98-107); Sodium 136 mmol/L (136-145)
[2025-02-04 05:50] LABS: Albumin 2.3 g/dL (3.2-4.8); Bilirubin, Total 6.0 mg/dL (0.2-1.0); Blood Urea Nitrogen 47 mg/dL (9-23); Calcium 8.3 mg/dL (8.7-10.4); Glucose 181 mg/dL (74-106); Potassium 3.2 mmol/L (3.5-5.1); Total Protein 5.3 g/dL (5.7-8.2)
[2025-02-04 05:58] LABS: Alkaline Phosphatase > 2300 U/L (46-116)
--- NOTE | 2025-02-04 06:00 | DVH ---
CHEST RADIOGRAPH Indication: effusion Technique: Single frontal view of the chest was obtained COMPARISON: XY CHEST PORTABLE on DOS: 02/03/25, XY CHEST PORTABLE on DOS: 02/02/25, XY CHEST PORTABLE o n DOS: 02/01/25, XY CHEST PORTABLE on DOS: 01/31/25, XY CHEST PORTABLE on DOS: 01/30/25 FINDINGS: Lines and Tubes: Endotracheal tube, enteric catheter, right central venous catheter and right PICC in satisfactory position Lungs: Multifocal airspace disease. Pleura: No effusion. No pneumothorax. Cardiomediastinal contours: Unremarkable Bones: Unremarkable IMPRESSION: Lines and tubes in satisfactory position. No significant interval change.
[2025-02-04 06:39] LABS: Total Cells Counted 100.0 (100)
[2025-02-04 06:59] LABS: Base Excess 1.5 mmol/L (-2.0-3.0)
[2025-02-04] MEDS: POTASSIUM EFFERVESENT TAB 25 MEQ GT ONE (09:12)
[2025-02-04] MEDS: EPOETIN ALFA-EPBX 10,000 UNIT/1ML VIAL SC SCH ×2 (09:39)
--- NOTE | 2025-02-04 10:19 | DVHPN2 ---
Progress Note Date Seen: Feb 03, 2025 Medical Necessity Reason Pt with a Central, PICC or Fol: No The following are medically ne: Jones Catheter Reason for jones catheter: Strict I&O Subjective Patient reports: Feels better, Other (seen at bedside in icu, nurse at bedside , family at bedside) Objective vital signs Vital Sign Date Time Temp Pulse Resp B/P (MAP) Pulse Ox O2 Delivery O2 Flow Rate FiO2 02/04/25 10:03 107 25 153/83 (106) 100 30 02/04/25 08:00 98.7 98.7 02/04/25 08:00 Mechanical Ventilator+ Total Intake and Output 02/03/25 02/03/25 02/04/25 15:00 23:00 07:00 Intake Total 66 ml 311 ml 426 ml Output Total 200 ml 545 ml Balance 66 ml 111 ml -119 ml medications Current Medications Medications Dose Ordered Sig/Zaria Route Start Time Stop Time Status Last Admin Dose Admin Famotidine 20 mg Q12HR IV 01/07/25 10:00 UNV Diagnostic Test (Pha) 1 strip IQ4HR 01/07/25 08:00 Cancel Calcium Gluconate/ Sodium Chloride 50 ml @ 100 mls/hr Q30M IV 01/08/25 17:30 01/08/25 18:29 Cancel Pantoprazole Sodium 40 mg BID IV 01/10/25 10:00 02/04/25 09:12 40 MG Sodium Chloride 10 ml QSHIFT@10,22 IV 01/24/25 22:00 02/04/25 09:12 10 ML Nystatin 1 applic BID TOP 01/24/25 22:00 02/04/25 09:13 1 APPLIC Diagnostic Test (Pha) 1 strip Q4HR 01/26/25 14:00 UNV Amino Acid Protein 30 ml TIDWM PO 01/28/25 18:00 02/04/25 08:16 30 ML Enteral Nutritional Formula 1,000 ml 30ML/HR GT 01/29/25 18:15 02/01/25 03:40 1,000 ML Metoclopramide HCl 5 mg Q8HR IV 01/30/25 14:00 02/03/25 21:34 5 MG Vancomycin HCl 0 ml @ 0 mls/hr UD IV 01/31/25 14:30 Cancel Diagnostic Test (Pha) 1 strip IQ4HR 01/31/25 16:00 02/04/25 08:15 1 STRIP Insulin Human Regular IQ4HR SC 01/31/25 16:00 02/04/25 08:16 2 UNITS Dextrose 50 ml UD PRN IV 01/31/25 14:45 Ursodiol 300 mg BID NG 02/01/25 22:00 02/04/25 09:13 300 MG Furosemide 100 mg/ Sodium Chloride 110 ml @ 22 mls/hr Q5H IV 02/03/25 11:15 02/04/25 07:34 22 MLS/HR Epoetin Paolo-epbx 10,000 unit TUTHSA [place] 02/04/25 10:00 02/04/25 09:39 10,000 UNIT Vancomycin HCl 0 ml @ 0 mls/hr UD IV 02/03/25 16:45 Epoetin Paolo-epbx 10,000 unit TUTHSA [place] 02/04/25 10:00 Examination: GENERAL:Abnormal, LUNGS:Abnormal, CVS:Abnormal, ABDOMEN:Abnormal, SKIN:Abnormal laboratory and microbiology Laboratory Tests 02/04/25 04:55 Test 02/04/25 04:55 Range/Units Serum Glucose 181 H 74-106 mg/dL Microbiology Date/Time Source Procedure Growth Status 01/26/25 08:46 Urine - Jones Port Urine Culture - Final Complete 01/24/25 04:15 Sputum Gram Stain - Final Complete 01/24/25 04:15 Sputum Respiratory Culture - Final Complete 01/23/25 20:30 Pleural Fluid Gram Stain - Final Complete 01/23/25 20:30 Pleural Fluid Body Fluid Culture - Final Complete 01/19/25 16:06 Nose MRSA Screen - Final Complete 01/16/25 19:00 Blood Blood Culture - Final NO GROWTH AFTER 5 DAYS OF INCUBATION. Complete 01/08/25 10:37 Stool Stool Culture - Final Complete 01/08/25 10:37 Stool Shiga Toxin I & II - Final Complete Problem List/Assessment/Plan Problem List/Assessment/Plan Acute kidney injury superimposed Chronic Kidney Disease stage IIIB secondary hemodynamic mediated ATN, FeNa > 2% - needing dialysis Acute hypoxic respiratory failure, patient extubated and then reintubated Hypokalemia Anemia of chronic kidney disease Anasarca elevated bilirubin, ALK phos Lasix drip started to increase urinary output Monitor electrolytes Avoid hypotension Discussed with ICU nurse at bedside if patient fails diuretic drip we will schedule hemodialysis tomorrow Plan discussed with: Other My Orders My Orders Orders - MIKO PALOMINO MD Procedure Category Date Status Time Sodium Chl 0.9% PHA 02/03/25 In Process (So... W/Furosemide 11:15 Dialysis Nursing SATHYA 02/04/25 In Process Message 07:00 Document Fluid Input SATHYA 02/04/25 In Process And Outpu 07:00 Epoetin Paolo-Epbx PHA 02/04/25 In Process (Retacrit) 10:00 Hemodialysis Orders ORDERS 02/04/25 Transmitted 07:06 Epoetin Paolo-Epbx PHA 02/04/25 In Process (Retacrit) 10:00 Dietary Evaluation Review Recommendations by RD: Increase Calorie Intake Comments: Nutrition Recommendation: 1) Vital AF 1.2Cal @ 25ml/hr along with Pro-stat 1 pk BID. start @ 20ml/hr, increase 10ml/hr Q4H until goal is reached. TF @ goal volume along with propofol, IV D5wNS0.45%, and Pro-stat provides 1684 kcal (100% energy needs), 75gm protein (100% protein needs), 487ml free water. 2) TPN to meet 75% estimated needs if remains NPO 3) Bryce 1 pk BID for DFU Expected Outcomes/Goals: DFU to improve To maintain/gain weight To meet at least 75% estimated needs Fu 2-3 days Interpretation of weight loss: up to 5% in 1 month Muscle Mass (Severe): Mod to Severe Depletion Protein Calorie Malnutrition: Non-Severe Is there a minimum of two crit: Yes Critical Care Time (mins): 33 MIKO PALOMINO MD Feb 04, 2025 10:19
--- NOTE | 2025-02-04 10:23 | DVHPN2 ---
Progress Note Date Seen: Feb 04, 2025 Medical Necessity Reason Pt with a Central, PICC or Fol: No The following are medically ne: Jones Catheter Reason for jones catheter: Strict I&O Subjective Patient reports: Other Review of Systems: RESPIRATORY:Abnormal Objective vital signs Vital Sign Date Time Temp Pulse Resp B/P (MAP) Pulse Ox O2 Delivery O2 Flow Rate FiO2 02/04/25 10:03 107 25 153/83 (106) 100 30 02/04/25 08:00 98.7 98.7 02/04/25 08:00 Mechanical Ventilator+ Total Intake and Output 02/03/25 02/03/25 02/04/25 15:00 23:00 07:00 Intake Total 66 ml 311 ml 426 ml Output Total 200 ml 545 ml Balance 66 ml 111 ml -119 ml medications Current Medications Medications Dose Ordered Sig/Zaria Route Start Time Stop Time Status Last Admin Dose Admin Famotidine 20 mg Q12HR IV 01/07/25 10:00 UNV Diagnostic Test (Pha) 1 strip IQ4HR 01/07/25 08:00 Cancel Calcium Gluconate/ Sodium Chloride 50 ml @ 100 mls/hr Q30M IV 01/08/25 17:30 01/08/25 18:29 Cancel Pantoprazole Sodium 40 mg BID IV 01/10/25 10:00 02/04/25 09:12 40 MG Sodium Chloride 10 ml QSHIFT@10,22 IV 01/24/25 22:00 02/04/25 09:12 10 ML Nystatin 1 applic BID TOP 01/24/25 22:00 02/04/25 09:13 1 APPLIC Diagnostic Test (Pha) 1 strip Q4HR 01/26/25 14:00 UNV Amino Acid Protein 30 ml TIDWM PO 01/28/25 18:00 02/04/25 08:16 30 ML Enteral Nutritional Formula 1,000 ml 30ML/HR GT 01/29/25 18:15 02/01/25 03:40 1,000 ML Metoclopramide HCl 5 mg Q8HR IV 01/30/25 14:00 02/03/25 21:34 5 MG Vancomycin HCl 0 ml @ 0 mls/hr UD IV 01/31/25 14:30 Cancel Diagnostic Test (Pha) 1 strip IQ4HR 01/31/25 16:00 02/04/25 08:15 1 STRIP Insulin Human Regular IQ4HR SC 01/31/25 16:00 02/04/25 08:16 2 UNITS Dextrose 50 ml UD PRN IV 01/31/25 14:45 Ursodiol 300 mg BID NG 02/01/25 22:00 02/04/25 09:13 300 MG Furosemide 100 mg/ Sodium Chloride 110 ml @ 22 mls/hr Q5H IV 02/03/25 11:15 02/04/25 07:34 22 MLS/HR Epoetin Paolo-epbx 10,000 unit TUTHSA [place] 02/04/25 10:00 02/04/25 09:39 10,000 UNIT Vancomycin HCl 0 ml @ 0 mls/hr UD IV 02/03/25 16:45 Epoetin Paolo-epbx 10,000 unit TUTHSA [place] 02/04/25 10:00 Examination: GENERAL:Abnormal, LUNGS:Abnormal, CVS:Abnormal, ABDOMEN:Abnormal, SKIN:Abnormal laboratory and microbiology Laboratory Tests 02/04/25 04:55 Test 02/04/25 04:55 Range/Units Serum Glucose 181 H 74-106 mg/dL Microbiology Date/Time Source Procedure Growth Status 01/26/25 08:46 Urine - Jones Port Urine Culture - Final Complete 01/24/25 04:15 Sputum Gram Stain - Final Complete 01/24/25 04:15 Sputum Respiratory Culture - Final Complete 01/23/25 20:30 Pleural Fluid Gram Stain - Final Complete 01/23/25 20:30 Pleural Fluid Body Fluid Culture - Final Complete 01/19/25 16:06 Nose MRSA Screen - Final Complete 01/16/25 19:00 Blood Blood Culture - Final NO GROWTH AFTER 5 DAYS OF INCUBATION. Complete 01/08/25 10:37 Stool Stool Culture - Final Complete 01/08/25 10:37 Stool Shiga Toxin I & II - Final Complete Problem List/Assessment/Plan Problem List/Assessment/Plan Acute kidney injury superimposed Chronic Kidney Disease stage IIIB secondary hemodynamic mediated ATN, FeNa > 2% - needing dialysis Acute hypoxic respiratory failure, patient extubated and then reintubated Hypokalemia Anemia of chronic kidney disease Anasarca elevated bilirubin, ALK phos thrombocytopenia failed response to lasix drip, HD scheduled today for volume control no heparin Epogen 3x a week will need more frequent treatments to improve volume control Monitor electrolytes Avoid hypotension poor overall prognosis Plan discussed with: Other My Orders My Orders Orders - MIKO PALOMINO MD Procedure Category Date Status Time Sodium Chl 0.9% PHA 02/03/25 In Process (So... W/Furosemide 11:15 Dialysis Nursing SATHYA 02/04/25 In Process Message 07:00 Document Fluid Input SATHYA 02/04/25 In Process And Outpu 07:00 Epoetin Paolo-Epbx PHA 02/04/25 In Process (Retacrit) 10:00 Hemodialysis Orders ORDERS 02/04/25 Transmitted 07:06 Epoetin Paolo-Epbx PHA 02/04/25 In Process (Retacrit) 10:00 Dietary Evaluation Review Recommendations by RD: Increase Calorie Intake Comments: Nutrition Recommendation: 1) Vital AF 1.2Cal @ 25ml/hr along with Pro-stat 1 pk BID. start @ 20ml/hr, increase 10ml/hr Q4H until goal is reached. TF @ goal volume along with propofol, IV D5wNS0.45%, and Pro-stat provides 1684 kcal (100% energy needs), 75gm protein (100% protein needs), 487ml free water. 2) TPN to meet 75% estimated needs if remains NPO 3) Bryce 1 pk BID for DFU Expected Outcomes/Goals: DFU to improve To maintain/gain weight To meet at least 75% estimated needs Fu 2-3 days Interpretation of weight loss: up to 5% in 1 month Muscle Mass (Severe): Mod to Severe Depletion Protein Calorie Malnutrition: Non-Severe Is there a minimum of two crit: Yes MIKO PALOMINO MD Feb 04, 2025 10:22
[2025-02-04] MEDS: SODIUM CHL 0.9% 1000 ML BAG XX ONE (12:05)
[2025-02-04] MEDS ORDERED: VANCOMYCIN 500mg/100mL 100 ML IV ONE (13:00)
--- NOTE | 2025-02-04 17:56 | DVHPNRES ---
Progress Note Date Seen: Feb 04, 2025 Resident Creating Document: ANABELL ORDOÑEZ RESIDENT Medical Necessity Reason Pt with a Central, PICC or Fol: No The following are medically ne: Jones Catheter Reason for jones catheter: Strict I&O Subjective Review of Systems Patient is a 44-year-old male with known history of type 1 diabetes mellitus who presented on 01/06/2025 via EMS for altered level of consciousness. Per EMS, the patient was found unresponsive with a blood glucose of 931 and received 400 cc IV fluids on route. On arrival he exhibited hypoxia, generalized weakness, increased work of breathing necessitating intubation and mechanical ventilation. Patient was started on IV insulin drip, Zosyn and vancomycin with bicarbonate for severe acidosis. A right femoral central line, midline and peripheral IVs were also placed. Of note, patient has a history of poor adherence to his insulin therapy. Per patient's father, patient lives alone in a trailer and had not been heard from since 01/02/2025. Patient was last hospitalized at the [facility] in November 2024 for DKA. On 01/07/2025, patient developed lip swelling while still intubated, chart review revealed a penicillin allergy. Zosyn was discontinued and patient was treated with methylprednisolone and transitioned to meropenem. Nephrology was consulted for RADHA and hypernatremia. A 01/10/2025, patient had begun to improve and was weaned off sedation and was extubated on 01/12/2025 and transferred telemetry. Antibiotics were discontinued at that time due to uncertainty about the cause of leukocytosis (steroids versus infection). However, WBCs continued to trend upwards and the patient developed low-grade fevers, subsequently restarted on linezolid and aztreonam. Patient has bilateral diabetic foot ulcers, left side more advanced than right. MRI of bilateral extremities shows mild subcutaneous edema, possibly cellulitis but no signs of osteomyelitis. Patient was also noted to have a pressure related ulcer to the left heel. Lower extremity arterial Doppler showed no significant stenosis. Vascular surgery evaluated the ulcers but recommended no interventions at this time. Podiatry already on board. 01/20/2025: Held insulin Lantus, discontinued lispro, mild sliding scale q.4 hours only. Started IV fluconazole for candidal infection in the groin. Podiatry reconsulted for evaluation of bilateral lower extremity ulcers. GI consult for anemia and positive stool occult blood. Discontinued linezolid and aztreonam, started on cefepime, vancomycin and metronidazole. 01/21/25: notes improved but continued nausea, new onset abdominal pain 9-05/02, localized to mid abdomen. Patient refused MRI owing to abdominal pain, we will reattempt tomorrow. Added metoclopramide qD along with norco and morphine as needed. Blood glucose in 290s, resumed lantus 7units qAM, however, dropping blood sugar by 4pm therefore discontinued lantus again. Pt refuses to eat and has severe aversion to food 01/22/25: improved abdominal pain today 6-01/30, agreeable to CT abdomen however still refusing MRI L foot. Plan to reattempt tomorrow. new moderate R sided hydronephrosis noted, urology consulted. denies dyspnea, sob. improving nausea. 01/23/2025: Patient notes feeling weaker than yesterday, denies abdominal pain. On physical exam decreased breath sounds more prominent on the left side and some crackles bibasilar. Discontinued vancomycin and started patient on daptomycin. Repeated left foot MRI which showed cellulitis in the lateral 4 for deep to the 5th metatarsal bone marrow wound is noted with overlying dressing, no evidence of osteomyelitis. IV furosemide was increased to 40 mg b.i.d. and patient was transferred to D . 01/24/2025: Overnight patient was intubated due to increasing respiratory distress, patient also underwent thoracentesis with 900 mL of fluid removed on the left side. For starvation/diabetic ketoacidosis, patient was started on an insulin drip and D10, gap was closed and bicarb was stabilized at 20. Blood glucose was 100 with a insulin drip was stopped, patient was started on D5 water at 50 cc/hours. Nephrology increased IV Lasix to 80 mg b.i.d. along with plan for renal replacement therapy tentatively in the p.m.. 01/25/2025- patient received right IJ Dean cath HD cath yesterday. Dialysis done 1 L removed. Today patient continues to have right upper extremity edema 2+. Left upper extremity is restricted has trace pitting edema and restricted due to history of DVT. Patient also has 1 to trace pedal edema bilaterally. Up to mid shins. Patient is not requiring any vasopressors. Patient is ventilated and due to acute hypoxic respiratory failure. Patient has no p.o. intake due to large gastric bubble and possible gastroparesis from prolonged uncontrolled diabetes. We will do TPN via PICC line now and hold off any enteral feeds. Continue IV antibiotics. Patient is anemic less than 7, 1 unit PRBC. Tentative plan to get EPO with HD, which may help. No sources of obvious hemorrhage. We are continuing D5 W for hypernatremia. We will do some education vacation today and if goes well possible CPAP trials tomorrow. We will continue sliding scale insulin Q 2. Patient antibiotics IV is linezolid only. 01/26/2025-no dialysis today. No lower extremity edema. Right upper extremity edema looks improved. Today doing sedation vacation and CPAP trial. Some electrolyte abnormalities not concerning nephrology reviewed. Patient on dialysis but still makes some urine 150 dark brown color. Patient is getting broad-spectrum antibiotics. Clinimix. Sedation vacation but otherwise patient was on Versed and fentanyl. Heart rate upper end of normal in the 100s. Blood pressure stable. No vasopressors. We will decrease Accu-Cheks to q.4. Decrease D5 to 30, being used for recurrent hypoglycemia. Otherwise continue primary team's plan. 01/27/2025: Patient seen and examined at bedside. Noted to have fluid overload, severe scrotal swelling, 2+ lower extremity nonpitting edema up to the thighs along with scleral edema was noted. Urine output of 325 mL in the past 24 hours. Undergoing dialysis today. Had an apneic episode during CPAP trial on 01/26/2025. 01/28/2025: Patient seen and examined at bedside. Minimal improvement in edema, s/p dialysis yesterday on 01/27/2025. Continues to have nonpitting edema up to knees along with scleral and scrotal edema. Jaundiced appearance noted. 01/29/25: Patient seen and examined at bedside. improved UOP since yesterday, worsening inspiratory crackles and LE edema. completed dialysis today, required 4mcg/hr of norepinephrine during dialysis. noted to have scabbed lesions on the penis. 01/30/2025: Patient seen and examined at bedside, improved lower extremity edema. Detailed discussions held with patient's parents at bedside. 01/31/2025: Patient seen and examined [place] [id number] [place]. Discontinued linezolid today on day 8 of treatment, started IV vancomycin per pharmacy after approval from Nephrology to have the dose timed with dialysis sessions. Repleted potassium with 40 mEq KCl rider. Urine output 100 mL in the last 24 hours, 700 mL of stool output via rectal tube. 02/01/25 patient remains intubated. Sedated. Sedation includes fentanyl 175 Versed 8. Continues to getting IV antibiotics broad-spectrum. Patient on ventilator a.c. 18/450/30%/5.0. Fecal tube with liquid output. Jones scant urine dark brown. Left upper extremity with pitting edema, dry other extremities. Tachycardic 114 sinus tachycardia. Continue primary team's plan of IV antibiotics, ongoing bilateral effusions, continuing dialysis with Nephrology. Platelets stable.. We will continue primary team's plan. No changes today. 02/02/2025 doing trial of CPAP patient not following commands. He is also on HD. Pulmonology bedside recommending against Versed. Likely sedatives we will still be the system as patient is not making any urine. We will try sedation vacation as long as patient can tolerate it.. His pupils are minimally responsive to light. But cough and gag reflex are present. Currently Versed fentanyl and Precedex are turned off. He is on spontaneous breathing trial CPAP and doing well. We will continuing IV antibiotics. Multiple lab abnormalities high ALP, thrombocytopenia. Patient is not on any heparin for concern for hit. Likely liver failure, GI is onboard giving ursodeoxycholic acid. We need to get GGT, PT INR PTT. And continuing further evaluation. Primary team to continue management tomorrow. 02/03/25: Liver function continues to decline. L lower extremity plantar wound with necrotic eschar noted, scabbing penile lesions persistent. resumed vancomycin scheduled with dialysis. scheduled family meeting for tomorrw. 02/04/2025: Bilirubin and alkaline phosphatase trending upwards, patient looking more jaundiced than previous days. Scheduled for dialysis today, detailed discussion held with patient's father Mr. Rayshawn devine, decided goals of care DNR. Objective vital signs Vital Sign Date Time Temp Pulse Resp B/P (MAP) Pulse Ox O2 Delivery O2 Flow Rate FiO2 02/04/25 17:09 123/63 02/04/25 16:00 30 02/04/25 16:00 98.6 103 19 100 98.6 02/04/25 16:00 Mechanical Ventilator+ Total Intake and Output 02/03/25 02/03/25 02/04/25 15:00 23:00 07:00 Intake Total 66 ml 311 ml 426 ml Output Total 200 ml 545 ml Balance 66 ml 111 ml -119 ml medications Current Medications Medications Dose Ordered Sig/Zaria Route Start Time Stop Time Status Last Admin Dose Admin Famotidine 20 mg Q12HR IV 01/07/25 10:00 UNV Diagnostic Test (Pha) 1 strip IQ4HR 01/07/25 08:00 Cancel Calcium Gluconate/ Sodium Chloride 50 ml @ 100 mls/hr Q30M IV 01/08/25 17:30 01/08/25 18:29 Cancel Pantoprazole Sodium 40 mg BID IV 01/10/25 10:00 02/04/25 09:12 40 MG Sodium Chloride 10 ml QSHIFT@10,22 IV 01/24/25 22:00 02/04/25 09:12 10 ML Nystatin 1 applic BID TOP 01/24/25 22:00 02/04/25 09:13 1 APPLIC Diagnostic Test (Pha) 1 strip Q4HR 01/26/25 14:00 UNV Amino Acid Protein 30 ml TIDWM PO 01/28/25 18:00 02/04/25 16:03 30 ML Enteral Nutritional Formula 1,000 ml 30ML/HR GT 01/29/25 18:15 02/01/25 03:40 1,000 ML Metoclopramide HCl 5 mg Q8HR IV 01/30/25 14:00 02/04/25 12:07 5 MG Vancomycin HCl 0 ml @ 0 mls/hr UD IV 01/31/25 14:30 Cancel Diagnostic Test (Pha) 1 strip IQ4HR 01/31/25 16:00 02/04/25 16:03 1 STRIP Insulin Human Regular IQ4HR SC 01/31/25 16:00 02/04/25 16:04 2 UNITS Dextrose 50 ml UD PRN IV 01/31/25 14:45 Ursodiol 300 mg BID NG 02/01/25 22:00 02/04/25 09:13 300 MG Furosemide 100 mg/ Sodium Chloride 110 ml @ 22 mls/hr Q5H IV 02/03/25 11:15 02/04/25 17:09 22 MLS/HR Vancomycin HCl 0 ml @ 0 mls/hr UD IV 02/03/25 16:45 Epoetin Paolo-epbx 10,000 unit [facility] 02/04/25 10:00 Examination General Appearance: Intubated and sedated. Malnourished, in mild distress. Jaundiced Head Exam: Normal inspection. No vision in right eye, decreased vision in left eye, minimally reactive pupils. Scleral edema Pulmonary/Respiratory: Chest non-tender. decreased bilateral breath sounds, no crackles, no wheezing. Cardiovascular/Chest: Tachycardic. No murmurs. No JVD. Abdominal Exam: Normal bowel sounds. Soft. normal abdomen, no visible veins, nontender No hepatospenomegaly. No masses Lower extremities: 2+ nonpitting lower extremity edema up to the thighs. Left heel pressure ulcer noted. Multiple diabetic foot ulcers on bilateral feet, largest 1 noted on left plantar foot with a dark black necrotic appearance Thoughts/Psych: Normal thought pattern. Appropriate mood and affect Skin Exam: improving groin lesions, redness noted along right gluteal area, scrotal swelling. penile scabs laboratory and microbiology Laboratory Tests 02/04/25 04:55 Test 02/04/25 04:55 Range/Units Serum Glucose 181 H 74-106 mg/dL Microbiology Date/Time Source Procedure Growth Status 01/26/25 08:46 Urine - Jones Port Urine Culture - Final Complete 01/24/25 04:15 Sputum Gram Stain - Final Complete 01/24/25 04:15 Sputum Respiratory Culture - Final Complete 01/23/25 20:30 Pleural Fluid Gram Stain - Final Complete 01/23/25 20:30 Pleural Fluid Body Fluid Culture - Final Complete 01/19/25 16:06 Nose MRSA Screen - Final Complete 01/16/25 19:00 Blood Blood Culture - Final NO GROWTH AFTER 5 DAYS OF INCUBATION. Complete 01/08/25 10:37 Stool Stool Culture - Final Complete 01/08/25 10:37 Stool Shiga Toxin I & II - Final Complete Labs and/or images reviewed: Labs reviewed by me, Image(s) reviewed by me Problem List/Assessment/Plan Problem List/Assessment/Plan Neurology # acute metabolic encephalopathy likely due to DKA vs Sepsis, improving - head CT from 01/07/2025: No acute territorial infarct, intracranial hemorrhage or mass effect - head CT from 01/19/2025: No acute intracranial abnormality - monitor Cardiovascular # runs of AFib on EKG # prolonged QTC # Essential hypertension - avoiding QT prolonging drugs - echocardiogram from 07/20/2022: Overall preserved ventricular systolic function. EF 60%. Grade 1 diastolic dysfunction. - increased amlodipine to 10mg qD - repeat echo: Mild LVH and mild LV diastolic dysfunction. LVEF 65%. Slightly dilated left atrium. Moderately dilated RV and RA. Moderate degree pulmonary hypertension. Normal valves and no effusion. - monitor Respiratory # Community acquired pneumonia, Gram-positive versus Gram-negative # Acute hypoxic respiratory failure due to above, intubated and mechanically ventilated # moderate-large b/l Pleural effusions # moderate pulmonary hypertension with RVSP 46 mmHg - CXR 01/08/25: Bibasilar atelectasis or pneumonia. - CXR 01/20/25: Patchy bilateral airspace disease, [id number]-[id number]-right, slightly increased - previously on meropenem and vancomycin, stopped on 01/12/2025 - started on aztreonam on 01/17/2025, linezolid 01/16/2025 - discontinued aztreonam and linezolid on 01/20/2025 - started cefepime, vancomycin and metronidazole on 01/20/2025 - discontinued vancomycin 01/23/2025 - s/p thoracentesis with 900 mL of fluid removed on 01/23/2025 Ventilator: AC/VC Tidal volume 450 Respiratory rate 18 Peep 8 FiO2 35% GI # Acute intractable abdominal pain (01/21/25), improved # cholestasis of critical illness # Microcytic anemia possibly 2' to ?LGI bleed; Hb 7.8 # Moderate abdominopelvic ascites # Peptic ulcer prophylaxis # gallbladder hydrops # hypokalemia - stool occult blood positive - GI consult - CT abdomen pelvis from 01/07/2025: Nonspecific periportal edema. Incidental finding. -Pantoprazole 40 mg IV daily - serum lipase 113 - repeat CT abdomen pelvis (01/22/25): Moderate to large bilateral pleural effusions with patchy and consolidative infiltrates in the lung bases likely a combination of pneumonia and atelectasis.mLow to moderate volume abdominopelvic ascites and diffuse subcutaneous edema suggestive of anasarca. Moderate right hydronephrosis without visualization of hydroureter or obstructing calculi. This appearance is new versus CT scan dated 01/07/2025. Gallbladder hydrops without visualization of gallstones. This appearance may indicate acalculous cholecystitis. Fluid-filled colon with multiple air-fluid levels present, possibly related to diarrheal illness. No evidence of bowel obstruction, acute appendicitis, or other acute process in the abdomen or pelvis. 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 Moderate right hydronephrosis without visualization of hydroureter or obstructing calculi. This appearance is new versus CT scan dated 01/07/2025. Gallbladder hydrops without visualization of gallstones. This appearance may indicate acalculous cholecystitis. Fluid- filled colon with multiple air-fluid levels present, possibly related to diarrheal illness. No evidence of bowel obstruction, acute appendicitis, or other acute process in the abdomen or pelvis. - urology consulted - reconsulted nephrology - serum parathyroid hormone 185.9, corrected calcium 8.7 Infectious disease # bilateral lower extremity cellulitis # left lower extremity diabetic foot ulcer on the plantar aspect growing Staph aureus # Sepsis due to above # left heel pressure ulcer # ruled out DVT # Fungal cutaneous infection in b/l groin # candidal balanitis with superimposed necrosis - MRI from 01/09/2025 shows Mild diffuse subcutaneous soft-tissue edema; possibly cellulitis. No bone marrow edema is present to suggest fracture or acute osteomyelitis. - bilateral lower extremity arterial Doppler: No hemodynamically significant stenosis based on peak systolic velocity criteria. - bilateral lower extremity venous Doppler: No right or left femoropopliteal venous thrombosis - discontinued aztreonam and linezolid on 01/20/2025 - started cefepime, vancomycin and metronidazole on 01/20/2025 - podiatry on board - left foot MRI: No MR evidence of osteomyelitis. Cellulitis and lateral 4 for deep of the 5th metatarsal bone were wound is noted overlying dressing. Edema in the intrinsic muscle of the foot may reflect sequelae of denervation, or myositis. - discontinued vancomycin 01/23/2025, started patient on daptomycin on 01/23/2025 - discontinued daptomycin, vancomycin and cefepime on 01/24/2025 - started linezolid on 01/24/2025 - discontinued linezolid on 01/31/2025 owing to dropping platelet count - started IV vancomycin per pharmacy after approval from Nephrology to have the dose timed with dialysis sessions - topical nystatin Hem/onc # microcytic anemia # thrombocytosis likely secondary to sepsis - s/p 2 PRBC - GI on board - monitor Endocrine # DKA, now resolved # recurrent episodes of hypoglycemia # severe protein calorie malnutrition # diabetic/starvation ketoacidosis, improved - discontinued lispro - holding insulin Lantus as patient continues to get hypoglycemic - mild sliding scale insulin - Accu-Cheks q4hr Diet Nepro carb steady with ProStat tube feedings Lines - right PICC line paced on 01/24/2025 - right-sided Dean catheter placed on 01/24/2025 - Jones catheter exchanged on 01/26/2025 Drips Fentanyl 150 microgram/minute Versed 8 mg Off of Levophed as of 01/24/2025; briefly required 4cmg/hr during dialysis on 01/29/25 Transeferred to OXANA 01/23/25 Intubated on 01/06/25 Extubated on 01/12/25 Intubated again on 01/24/25 critical care time excluding procedures was 84 mins. long discussion with father- reviewed hospital course and current status. discussed treatment plan. Dad wishes dnr status for now Code status discussed greater than 20 minutes: Full CODE STATUS. Plan discussed with Dr. Dan Plan discussed with: Other (Father, RN) My Orders My Orders Orders - ANABELL ORDOÑEZ Procedure Category Date Status Time Vancomycin,Random LAB 02/05/25 Verified 04:00 Code Status CODE 02/04/25 Transmitted 14:24 Dietary Evaluation Review Recommendations by RD: Increase Calorie Intake Comments: Nutrition Recommendation: 1) Vital AF 1.2Cal @ 25ml/hr along with Pro-stat 1 pk BID. start @ 20ml/hr, increase 10ml/hr Q4H until goal is reached. TF @ goal volume along with propofol, IV D5wNS0.45%, and Pro-stat provides 1684 kcal (100% energy needs), 75gm protein (100% protein needs), 487ml free water. 2) TPN to meet 75% estimated needs if remains NPO 3) Bryce 1 pk BID for DFU Expected Outcomes/Goals: DFU to improve To maintain/gain weight To meet at least 75% estimated needs Fu 2-3 days Interpretation of weight loss: up to 5% in 1 month Muscle Mass (Severe): Mod to Severe Depletion Protein Calorie Malnutrition: Non-Severe Is there a minimum of two crit: Yes ANABELL ORDOÑEZ Feb 04, 2025 17:56 AMY DAN MD Feb 05, 2025 15:59
[2025-02-05] VITALS (75 sets, daily range): BP systolic 102–172; BP diastolic 57–95; PULSE 18–108; RESP 11–32; TEMP 96.6–98.3; O2SAT 99–100
[2025-02-05 05:06] LABS: Hemoglobin 7.3 g/dL (13.5-17.5); Mean Corpuscular Hemoglobin 25.4 pg (28.0-32.0)
[2025-02-05 05:08] LABS: Hematocrit 22.7 % (41.0-53.0); Mean Corpuscular Volume 78.9 fL (80.0-100.0)
--- NOTE | 2025-02-05 05:12 | DVH ---
CHEST RADIOGRAPH Indication: effusion Technique: Single frontal view of the chest was obtained COMPARISON: XY CHEST PORTABLE on DOS: 02/04/25, XY CHEST PORTABLE on DOS: 02/03/25, XY CHEST PORTABLE o n DOS: 02/02/25, XY CHEST PORTABLE on DOS: 02/01/25, XY CHEST PORTABLE on DOS: 01/31/25 FINDINGS: Lines and Tubes: Endotracheal tube, enteric catheter, right central venous catheter and right PICC in satisfactory position Lungs: Multifocal airspace disease Pleura: No effusion. No pneumothorax. Cardiomediastinal contours: Unremarkable Bones: Unremarkable IMPRESSION: Lines and tubes in satisfactory position. No significant interval change.
[2025-02-05 05:24] LABS: Alanine Aminotransferase 31 U/L (7-40); Anion Gap 8 (5-15); BUN/Creatinine Ratio 17.0 (10.0-20.0); Carbon Dioxide 29 mmol/L (20-31); Chloride 101 mmol/L (98-107); Glucose 91 mg/dL (74-106); Sodium 138 mmol/L (136-145)
[2025-02-05 05:32] LABS: Blood Urea Nitrogen 32 mg/dL (9-23); Potassium 3.0 mmol/L (3.5-5.1)
[2025-02-05 05:33] LABS: Albumin 2.1 g/dL (3.2-4.8); Alkaline Phosphatase > 2300 U/L (46-116); Bilirubin, Total 5.5 mg/dL (0.2-1.0); Calcium 7.7 mg/dL (8.7-10.4); Total Protein 4.9 g/dL (5.7-8.2)
[2025-02-05] MEDS: POTASSIUM CHL 20MEQ/100ML 100 ML IV ONE (05:45)
[2025-02-05 05:50] LABS: Total Cells Counted 100.0 (100)
[2025-02-05 06:07] LABS: Base Excess 2.7 mmol/L (-2.0-3.0)
[2025-02-05] MEDS: ALBUMIN 25% 100 ML IV PRN (07:00)
[2025-02-05 12:09] LABS: Potassium 3.0 mmol/L (3.5-5.1)
[2025-02-05 12:16] LABS: Magnesium 1.8 mg/dL (1.6-2.6)
[2025-02-05] MEDS: VANCOMYCIN 500mg/100mL 100 ML IV ONE (12:26)
--- NOTE | 2025-02-05 13:09 | DVHPN2 ---
Progress Note Date Seen: Feb 05, 2025 Medical Necessity Reason Pt with a Central, PICC or Fol: No The following are medically ne: Jones Catheter Reason for jones catheter: Strict I&O Objective vital signs Vital Sign Date Time Temp Pulse Resp B/P (MAP) Pulse Ox O2 Delivery O2 Flow Rate FiO2 02/05/25 12:21 98 02/05/25 12:18 19 100 Mechanical Ventilator+ 30 30 02/05/25 11:30 151/83 (105) 02/05/25 08:00 96.6 96.6 Total Intake and Output 02/04/25 02/04/25 02/05/25 14:59 22:59 06:59 Intake Total 176 ml 586 ml 307 ml Output Total 875 ml 1350 ml Balance 176 ml -289 ml -1043 ml medications Current Medications Medications Dose Ordered Sig/Zaria Route Start Time Stop Time Status Last Admin Dose Admin Famotidine 20 mg Q12HR IV 01/07/25 10:00 UNV Diagnostic Test (Pha) 1 strip IQ4HR 01/07/25 08:00 Cancel Calcium Gluconate/ Sodium Chloride 50 ml @ 100 mls/hr Q30M IV 01/08/25 17:30 01/08/25 18:29 Cancel Pantoprazole Sodium 40 mg BID IV 01/10/25 10:00 02/05/25 10:24 40 MG Sodium Chloride 10 ml QSHIFT@10,22 IV 01/24/25 22:00 02/05/25 10:31 10 ML Diagnostic Test (Pha) 1 strip Q4HR 01/26/25 14:00 UNV Amino Acid Protein 30 ml TIDWM PO 01/28/25 18:00 02/04/25 16:03 30 ML Enteral Nutritional Formula 1,000 ml 30ML/HR GT 01/29/25 18:15 02/05/25 06:11 1,000 ML Metoclopramide HCl 5 mg Q8HR IV 01/30/25 14:00 02/05/25 06:07 5 MG Vancomycin HCl 0 ml @ 0 mls/hr UD IV 01/31/25 14:30 Cancel Diagnostic Test (Pha) 1 strip IQ4HR 01/31/25 16:00 02/05/25 12:26 1 STRIP Insulin Human Regular IQ4HR SC 01/31/25 16:00 02/04/25 23:28 3 UNITS Dextrose 50 ml UD PRN IV 01/31/25 14:45 Ursodiol 300 mg BID NG 02/01/25 22:00 02/05/25 10:30 300 MG Furosemide 100 mg/ Sodium Chloride 110 ml @ 22 mls/hr Q5H IV 02/03/25 11:15 02/05/25 09:32 22 MLS/HR Vancomycin HCl 0 ml @ 0 mls/hr UD IV 02/03/25 16:45 Epoetin Paolo-epbx 10,000 unit TUTHSA SC 02/04/25 10:00 Albumin Human 100 ml @ 100 mls/hr PRN PRN IV 02/05/25 06:45 Examination: GENERAL:Abnormal, LUNGS:Abnormal, ABDOMEN:Abnormal, SKIN:Abnormal laboratory and microbiology Laboratory Tests 02/05/25 04:35 Test 02/05/25 04:35 Range/Units Serum Glucose 91 74-106 mg/dL Microbiology Date/Time Source Procedure Growth Status 01/26/25 08:46 Urine - Jones Port Urine Culture - Final Complete 01/24/25 04:15 Sputum Gram Stain - Final Complete 01/24/25 04:15 Sputum Respiratory Culture - Final Complete 01/23/25 20:30 Pleural Fluid Gram Stain - Final Complete 01/23/25 20:30 Pleural Fluid Body Fluid Culture - Final Complete 01/19/25 16:06 Nose MRSA Screen - Final Complete 01/16/25 19:00 Blood Blood Culture - Final NO GROWTH AFTER 5 DAYS OF INCUBATION. Complete 01/08/25 10:37 Stool Stool Culture - Final Complete 01/08/25 10:37 Stool Shiga Toxin I & II - Final Complete Problem List/Assessment/Plan Problem List/Assessment/Plan Acute kidney injury superimposed Chronic Kidney Disease stage IIIB secondary hemodynamic mediated ATN, FeNa > 2% - needing dialysis Acute hypoxic respiratory failure, patient extubated and then reintubated Hypokalemia Anemia of chronic kidney disease Anasarca elevated bilirubin, ALK phos thrombocytopenia 4k bath, IV potassium given, repeat BMP in evening failed response to lasix drip, HD scheduled today for volume control weaning trial on vent on going, rec repeat HD tomorrow for additional fluid removal no heparin Epogen 3x a week Avoid hypotension poor overall prognosis Plan discussed with: Patient My Orders My Orders Orders - MIKO PALOMINO MD Procedure Category Date Status Time Hemodialysis Orders ORDERS 02/05/25 Transmitted 06:35 Epoetin Paolo-Epbx PHA 02/05/25 In Process (Retacrit) 21:00 Albumin 25% (Albutein) PHA 02/05/25 In Process 06:45 Basic Metabolic Panel LAB 02/06/25 Verified 04:00 Dietary Evaluation Review Recommendations by RD: Increase Calorie Intake Comments: Nutrition Recommendation: 1) Vital AF 1.2Cal @ 25ml/hr along with Pro-stat 1 pk BID. start @ 20ml/hr, increase 10ml/hr Q4H until goal is reached. TF @ goal volume along with propofol, IV D5wNS0.45%, and Pro-stat provides 1684 kcal (100% energy needs), 75gm protein (100% protein needs), 487ml free water. 2) TPN to meet 75% estimated needs if remains NPO 3) Bryce 1 pk BID for DFU Expected Outcomes/Goals: DFU to improve To maintain/gain weight To meet at least 75% estimated needs Fu 2-3 days Interpretation of weight loss: up to 5% in 1 month Muscle Mass (Severe): Mod to Severe Depletion Protein Calorie Malnutrition: Non-Severe Is there a minimum of two crit: Yes Total Time (mins): 40 MIKO PALOMINO MD Feb 05, 2025 13:09
[2025-02-05 13:16] LABS: Base Excess 4.9 mmol/L (-2.0-3.0)
[2025-02-05] MEDS: SODIUM CHL 0.9% 1000 ML BAG XX ONE (13:42)
[2025-02-05] MEDS: POTASSIUM CHL 20MEQ/100ML 100 ML IV SCH (15:48)
--- NOTE | 2025-02-05 16:56 | DVHPN2 ---
Progress Note - Dictate Date Seen: Feb 05, 2025 Medical Necessity Reason Pt with a Central, PICC or Fol: No The following are medically ne: Jones Catheter Reason for jones catheter: Strict I&O Subjective No new complaints Patient underwent CPAP trial today He was extubated this afternoon and is currently on 100% FiO2 non-rebreather His potassium was low at 2.6 and it was replaced vital signs Vital Sign Date Time Temp Pulse Resp B/P (MAP) Pulse Ox O2 Delivery O2 Flow Rate FiO2 02/05/25 16:24 102 02/05/25 16:20 15 100 Cool Aerosol 8 35 35 02/05/25 16:00 98.3 143/76 (98) 98.3 Total Intake and Output 02/04/25 02/04/25 02/05/25 15:00 23:00 07:00 Intake Total 176 ml 586 ml 307 ml Output Total 875 ml 1350 ml Balance 176 ml -289 ml -1043 ml medications Current Medications Medications Dose Ordered Sig/Zaria Route Start Time Stop Time Status Last Admin Dose Admin Famotidine 20 mg Q12HR IV 01/07/25 10:00 UNV Diagnostic Test (Pha) 1 strip IQ4HR 01/07/25 08:00 Cancel Calcium Gluconate/ Sodium Chloride 50 ml @ 100 mls/hr Q30M IV 01/08/25 17:30 01/08/25 18:29 Cancel Pantoprazole Sodium 40 mg BID IV 01/10/25 10:00 02/05/25 10:24 40 MG Sodium Chloride 10 ml QSHIFT@10,22 IV 01/24/25 22:00 02/05/25 10:31 10 ML Diagnostic Test (Pha) 1 strip Q4HR 01/26/25 14:00 UNV Amino Acid Protein 30 ml TIDWM PO 01/28/25 18:00 02/04/25 16:03 30 ML Enteral Nutritional Formula 1,000 ml 30ML/HR GT 01/29/25 18:15 02/05/25 06:11 1,000 ML Vancomycin HCl 0 ml @ 0 mls/hr UD IV 01/31/25 14:30 Cancel Diagnostic Test (Pha) 1 strip IQ4HR 01/31/25 16:00 02/05/25 16:05 1 STRIP Insulin Human Regular IQ4HR SC 01/31/25 16:00 02/05/25 13:55 2 UNITS Dextrose 50 ml UD PRN IV 01/31/25 14:45 Ursodiol 300 mg BID NG 02/01/25 22:00 02/05/25 10:30 300 MG Furosemide 100 mg/ Sodium Chloride 110 ml @ 22 mls/hr Q5H IV 02/03/25 11:15 02/05/25 15:12 22 MLS/HR Vancomycin HCl 0 ml @ 0 mls/hr UD IV 02/03/25 16:45 Epoetin Paolo-epbx 10,000 unit TUTA MN 02/04/25 10:00 Albumin Human 100 ml @ 100 mls/hr PRN PRN IV 02/05/25 06:45 02/05/25 08:00 100 MLS/HR Potassium Chloride 100 ml @ 50 mls/hr Q2H IV 02/05/25 15:30 02/05/25 19:29 02/05/25 15:48 50 MLS/HR objective Intubated sedated hemodynamically stable Mild Abdominal distention no masses Generalized anasarca and scrotal swelling laboratory and microbiology Laboratory Tests 02/05/25 12:37 02/05/25 04:35 Test 02/05/25 04:35 Range/Units Serum Glucose 91 74-106 mg/dL Problems(with codes): (1) Elevated AFP (2) Fluid overload (3) Gallstones (4) Gallbladder hydrops (5) History of diabetic ketoacidosis (6) Cannabinoid hyperemesis syndrome (7) Intractable abdominal pain (8) Inadequate oral intake Prognosis Plan Continue supportive care Nutritional supplementation Swallow evaluation in 1-2 days when he is more awake Monitor labs Dietary Evaluation Review Recommendations by RD: Increase Calorie Intake Comments: Nutrition Recommendation: 1) Vital AF 1.2Cal @ 25ml/hr along with Pro-stat 1 pk BID. start @ 20ml/hr, increase 10ml/hr Q4H until goal is reached. TF @ goal volume along with propofol, IV D5wNS0.45%, and Pro-stat provides 1684 kcal (100% energy needs), 75gm protein (100% protein needs), 487ml free water. 2) TPN to meet 75% estimated needs if remains NPO 3) Bryce 1 pk BID for DFU Expected Outcomes/Goals: DFU to improve To maintain/gain weight To meet at least 75% estimated needs Fu 2-3 days Interpretation of weight loss: up to 5% in 1 month Muscle Mass (Severe): Mod to Severe Depletion Protein Calorie Malnutrition: Non-Severe Is there a minimum of two crit: Yes Plan discussed with: Patient, Other ([facility] Nurse) LETTY GENTILE MD Feb 05, 2025 16:56
--- NOTE | 2025-02-05 16:59 | DVHPNRES ---
Progress Note Date Seen: Feb 05, 2025 Resident Creating Document: ANABELL ORDOÑEZ RESIDENT Medical Necessity Reason Pt with a Central, PICC or Fol: No The following are medically ne: Jones Catheter Reason for jones catheter: Strict I&O Subjective Review of Systems Patient is a 44-year-old male with known history of type 1 diabetes mellitus who presented on 01/06/2025 via EMS for altered level of consciousness. Per EMS, the patient was found unresponsive with a blood glucose of 931 and received 400 cc IV fluids on route. On arrival he exhibited hypoxia, generalized weakness, increased work of breathing necessitating intubation and mechanical ventilation. Patient was started on IV insulin drip, Zosyn and vancomycin with bicarbonate for severe acidosis. A right femoral central line, midline and peripheral IVs were also placed. Of note, patient has a history of poor adherence to his insulin therapy. Per patient's father, patient lives alone in a trailer and had not been heard from since 01/02/2025. Patient was last hospitalized at the [facility] in November 2024 for DKA. On 01/07/2025, patient developed lip swelling while still intubated, chart review revealed a penicillin allergy. Zosyn was discontinued and patient was treated with methylprednisolone and transitioned to meropenem. Nephrology was consulted for RADHA and hypernatremia. A 01/10/2025, patient had begun to improve and was weaned off sedation and was extubated on 01/12/2025 and transferred telemetry. Antibiotics were discontinued at that time due to uncertainty about the cause of leukocytosis (steroids versus infection). However, WBCs continued to trend upwards and the patient developed low-grade fevers, subsequently restarted on linezolid and aztreonam. Patient has bilateral diabetic foot ulcers, left side more advanced than right. MRI of bilateral extremities shows mild subcutaneous edema, possibly cellulitis but no signs of osteomyelitis. Patient was also noted to have a pressure related ulcer to the left heel. Lower extremity arterial Doppler showed no significant stenosis. Vascular surgery evaluated the ulcers but recommended no interventions at this time. Podiatry already on board. 01/20/2025: Held insulin Lantus, discontinued lispro, mild sliding scale q.4 hours only. Started IV fluconazole for candidal infection in the groin. Podiatry reconsulted for evaluation of bilateral lower extremity ulcers. GI consult for anemia and positive stool occult blood. Discontinued linezolid and aztreonam, started on cefepime, vancomycin and metronidazole. 01/21/25: notes improved but continued nausea, new onset abdominal pain 9-05/02, localized to mid abdomen. Patient refused MRI owing to abdominal pain, we will reattempt tomorrow. Added metoclopramide qD along with norco and morphine as needed. Blood glucose in 290s, resumed lantus 7units qAM, however, dropping blood sugar by 4pm therefore discontinued lantus again. Pt refuses to eat and has severe aversion to food 01/22/25: improved abdominal pain today 6-01/30, agreeable to CT abdomen however still refusing MRI L foot. Plan to reattempt tomorrow. new moderate R sided hydronephrosis noted, urology consulted. denies dyspnea, sob. improving nausea. 01/23/2025: Patient notes feeling weaker than yesterday, denies abdominal pain. On physical exam decreased breath sounds more prominent on the left side and some crackles bibasilar. Discontinued vancomycin and started patient on daptomycin. Repeated left foot MRI which showed cellulitis in the lateral 4 for deep to the 5th metatarsal bone marrow wound is noted with overlying dressing, no evidence of osteomyelitis. IV furosemide was increased to 40 mg b.i.d. and patient was transferred to D . 01/24/2025: Overnight patient was intubated due to increasing respiratory distress, patient also underwent thoracentesis with 900 mL of fluid removed on the left side. For starvation/diabetic ketoacidosis, patient was started on an insulin drip and D10, gap was closed and bicarb was stabilized at 20. Blood glucose was 100 with a insulin drip was stopped, patient was started on D5 water at 50 cc/hours. Nephrology increased IV Lasix to 80 mg b.i.d. along with plan for renal replacement therapy tentatively in the p.m.. 01/25/2025- patient received right IJ Dean cath HD cath yesterday. Dialysis done 1 L removed. Today patient continues to have right upper extremity edema 2+. Left upper extremity is restricted has trace pitting edema and restricted due to history of DVT. Patient also has 1 to trace pedal edema bilaterally. Up to mid shins. Patient is not requiring any vasopressors. Patient is ventilated and due to acute hypoxic respiratory failure. Patient has no p.o. intake due to large gastric bubble and possible gastroparesis from prolonged uncontrolled diabetes. We will do TPN via PICC line now and hold off any enteral feeds. Continue IV antibiotics. Patient is anemic less than 7, 1 unit PRBC. Tentative plan to get EPO with HD, which may help. No sources of obvious hemorrhage. We are continuing D5 W for hypernatremia. We will do some education vacation today and if goes well possible CPAP trials tomorrow. We will continue sliding scale insulin Q 2. Patient antibiotics IV is linezolid only. 01/26/2025-no dialysis today. No lower extremity edema. Right upper extremity edema looks improved. Today doing sedation vacation and CPAP trial. Some electrolyte abnormalities not concerning nephrology reviewed. Patient on dialysis but still makes some urine 150 dark brown color. Patient is getting broad-spectrum antibiotics. Clinimix. Sedation vacation but otherwise patient was on Versed and fentanyl. Heart rate upper end of normal in the 100s. Blood pressure stable. No vasopressors. We will decrease Accu-Cheks to q.4. Decrease D5 to 30, being used for recurrent hypoglycemia. Otherwise continue primary team's plan. 01/27/2025: Patient seen and examined at bedside. Noted to have fluid overload, severe scrotal swelling, 2+ lower extremity nonpitting edema up to the thighs along with scleral edema was noted. Urine output of 325 mL in the past 24 hours. Undergoing dialysis today. Had an apneic episode during CPAP trial on 01/26/2025. 01/28/2025: Patient seen and examined at bedside. Minimal improvement in edema, s/p dialysis yesterday on 01/27/2025. Continues to have nonpitting edema up to knees along with scleral and scrotal edema. Jaundiced appearance noted. 01/29/25: Patient seen and examined at bedside. improved UOP since yesterday, worsening inspiratory crackles and LE edema. completed dialysis today, required 4mcg/hr of norepinephrine during dialysis. noted to have scabbed lesions on the penis. 01/30/2025: Patient seen and examined at bedside, improved lower extremity edema. Detailed discussions held with patient's parents at bedside. 01/31/2025: Patient seen and examined [place] [id number] [place]. Discontinued linezolid today on day 8 of treatment, started IV vancomycin per pharmacy after approval from Nephrology to have the dose timed with dialysis sessions. Repleted potassium with 40 mEq KCl rider. Urine output 100 mL in the last 24 hours, 700 mL of stool output via rectal tube. 02/01/25 patient remains intubated. Sedated. Sedation includes fentanyl 175 Versed 8. Continues to getting IV antibiotics broad-spectrum. Patient on ventilator a.c. 18/450/30%/5.0. Fecal tube with liquid output. Jones scant urine dark brown. Left upper extremity with pitting edema, dry other extremities. Tachycardic 114 sinus tachycardia. Continue primary team's plan of IV antibiotics, ongoing bilateral effusions, continuing dialysis with Nephrology. Platelets stable.. We will continue primary team's plan. No changes today. 02/02/2025 doing trial of CPAP patient not following commands. He is also on HD. Pulmonology bedside recommending against Versed. Likely sedatives we will still be the system as patient is not making any urine. We will try sedation vacation as long as patient can tolerate it.. His pupils are minimally responsive to light. But cough and gag reflex are present. Currently Versed fentanyl and Precedex are turned off. He is on spontaneous breathing trial CPAP and doing well. We will continuing IV antibiotics. Multiple lab abnormalities high ALP, thrombocytopenia. Patient is not on any heparin for concern for hit. Likely liver failure, GI is onboard giving ursodeoxycholic acid. We need to get GGT, PT INR PTT. And continuing further evaluation. Primary team to continue management tomorrow. 02/03/25: Liver function continues to decline. L lower extremity plantar wound with necrotic eschar noted, scabbing penile lesions persistent. resumed vancomycin scheduled with dialysis. scheduled family meeting for tomorrw. 02/04/2025: Bilirubin and alkaline phosphatase trending upwards, patient looking more jaundiced than previous days. Scheduled for dialysis today, detailed discussion held with patient's father Mr. Rayshawn devine, decided goals of care DNR. 02/05/2025: Patient completed CPAP trial, successfully extubated. Liver function continues to worsen. Called to inform patient's father about patient's extubation, per father he will come in the a.m. for repeat family meeting. Objective vital signs Vital Sign Date Time Temp Pulse Resp B/P (MAP) Pulse Ox O2 Delivery O2 Flow Rate FiO2 02/05/25 16:24 102 02/05/25 16:20 15 100 Cool Aerosol 8 35 35 02/05/25 16:00 98.3 143/76 (98) 98.3 Total Intake and Output 02/04/25 02/04/25 02/05/25 15:00 23:00 07:00 Intake Total 176 ml 586 ml 307 ml Output Total 875 ml 1350 ml Balance 176 ml -289 ml -1043 ml medications Current Medications Medications Dose Ordered Sig/Zaria Route Start Time Stop Time Status Last Admin Dose Admin Famotidine 20 mg Q12HR IV 01/07/25 10:00 UNV Diagnostic Test (Pha) 1 strip IQ4HR 01/07/25 08:00 Cancel Calcium Gluconate/ Sodium Chloride 50 ml @ 100 mls/hr Q30M IV 01/08/25 17:30 01/08/25 18:29 Cancel Pantoprazole Sodium 40 mg BID IV 01/10/25 10:00 02/05/25 10:24 40 MG Sodium Chloride 10 ml QSHIFT@10,22 IV 01/24/25 22:00 02/05/25 10:31 10 ML Diagnostic Test (Pha) 1 strip Q4HR 01/26/25 14:00 UNV Amino Acid Protein 30 ml TIDWM PO 01/28/25 18:00 02/04/25 16:03 30 ML Enteral Nutritional Formula 1,000 ml 30ML/HR GT 01/29/25 18:15 02/05/25 06:11 1,000 ML Vancomycin HCl 0 ml @ 0 mls/hr UD IV 01/31/25 14:30 Cancel Diagnostic Test (Pha) 1 strip IQ4HR 01/31/25 16:00 02/05/25 16:05 1 STRIP Insulin Human Regular IQ4HR SC 01/31/25 16:00 02/05/25 13:55 2 UNITS Dextrose 50 ml UD PRN IV 01/31/25 14:45 Ursodiol 300 mg BID NG 02/01/25 22:00 02/05/25 10:30 300 MG Furosemide 100 mg/ Sodium Chloride 110 ml @ 22 mls/hr Q5H IV 02/03/25 11:15 02/05/25 15:12 22 MLS/HR Vancomycin HCl 0 ml @ 0 mls/hr UD IV 02/03/25 16:45 Epoetin Paolo-epbx 10,000 unit TUTA SC 02/04/25 10:00 Albumin Human 100 ml @ 100 mls/hr PRN PRN IV 02/05/25 06:45 02/05/25 08:00 100 MLS/HR Potassium Chloride 100 ml @ 50 mls/hr Q2H IV 02/05/25 15:30 02/05/25 19:29 02/05/25 15:48 50 MLS/HR Examination General Appearance: Intubated and sedated. Malnourished, in mild distress. Jaundiced Head Exam: Normal inspection. No vision in right eye, decreased vision in left eye, minimally reactive pupils. Scleral edema Pulmonary/Respiratory: Chest non-tender. decreased bilateral breath sounds, no crackles, no wheezing. Cardiovascular/Chest: Tachycardic. No murmurs. No JVD. Abdominal Exam: Normal bowel sounds. Soft. normal abdomen, no visible veins, nontender No hepatospenomegaly. No masses Lower extremities: 2+ nonpitting lower extremity edema up to the thighs. Left heel pressure ulcer noted. Multiple diabetic foot ulcers on bilateral feet, largest 1 noted on left plantar foot with a dark black necrotic appearance Thoughts/Psych: Normal thought pattern. Appropriate mood and affect Skin Exam: improving groin lesions, redness noted along right gluteal area, scrotal swelling. penile scabs laboratory and microbiology Laboratory Tests 02/05/25 12:37 02/05/25 04:35 Test 02/05/25 04:35 Range/Units Serum Glucose 91 74-106 mg/dL Microbiology Date/Time Source Procedure Growth Status 01/26/25 08:46 Urine - Jones Port Urine Culture - Final Complete 01/24/25 04:15 Sputum Gram Stain - Final Complete 01/24/25 04:15 Sputum Respiratory Culture - Final Complete 01/23/25 20:30 Pleural Fluid Gram Stain - Final Complete 01/23/25 20:30 Pleural Fluid Body Fluid Culture - Final Complete 01/19/25 16:06 Nose MRSA Screen - Final Complete 01/16/25 19:00 Blood Blood Culture - Final NO GROWTH AFTER 5 DAYS OF INCUBATION. Complete 01/08/25 10:37 Stool Stool Culture - Final Complete 01/08/25 10:37 Stool Shiga Toxin I & II - Final Complete Labs and/or images reviewed: Labs reviewed by me, Image(s) reviewed by me Problem List/Assessment/Plan Problem List/Assessment/Plan Neurology # acute metabolic encephalopathy likely due to DKA vs Sepsis, improving - head CT from 01/07/2025: No acute territorial infarct, intracranial hemorrhage or mass effect - head CT from 01/19/2025: No acute intracranial abnormality - monitor Cardiovascular # runs of AFib on EKG # prolonged QTC # Essential hypertension - avoiding QT prolonging drugs - echocardiogram from 07/20/2022: Overall preserved ventricular systolic function. EF 60%. Grade 1 diastolic dysfunction. - increased amlodipine to 10mg qD - repeat echo: Mild LVH and mild LV diastolic dysfunction. LVEF 65%. Slightly dilated left atrium. Moderately dilated RV and RA. Moderate degree pulmonary hypertension. Normal valves and no effusion. - monitor Respiratory # Community acquired pneumonia, Gram-positive versus Gram-negative # Acute hypoxic respiratory failure due to above, intubated and mechanically ventilated # moderate-large b/l Pleural effusions # moderate pulmonary hypertension with RVSP 46 mmHg - CXR 01/08/25: Bibasilar atelectasis or pneumonia. - CXR 01/20/25: Patchy bilateral airspace disease, [id number], slightly increased - previously on meropenem and vancomycin, stopped on 01/12/2025 - started on aztreonam on 01/17/2025, linezolid 01/16/2025 - discontinued aztreonam and linezolid on 01/20/2025 - started cefepime, vancomycin and metronidazole on 01/20/2025 - discontinued vancomycin 01/23/2025 - started linezolid, however, dc'ed linezolid on d/t thrombocytopenia, resumed vancomycin on 01/31 - s/p thoracentesis with 900 mL of fluid removed on 01/23/2025 GI # Acute intractable abdominal pain (01/21/25), improved # cholestasis of critical illness # Microcytic anemia possibly 2' to ?LGI bleed; Hb 7.8 # Moderate abdominopelvic ascites # Peptic ulcer prophylaxis # gallbladder hydrops # hypokalemia - stool occult blood positive - GI consult - CT abdomen pelvis from 01/07/2025: Nonspecific periportal edema. Incidental finding. -Pantoprazole 40 mg IV daily - serum lipase 113 - repeat CT abdomen pelvis (01/22/25): Moderate to large bilateral pleural effusions with patchy and consolidative infiltrates in the lung bases likely a combination of pneumonia and atelectasis.mLow to moderate volume abdominopelvic ascites and diffuse subcutaneous edema suggestive of anasarca. Moderate right hydronephrosis without visualization of hydroureter or obstructing calculi. This appearance is new versus CT scan dated 01/07/2025. Gallbladder hydrops without visualization of gallstones. This appearance may indicate acalculous cholecystitis. Fluid-filled colon with multiple air-fluid levels present, possibly related to diarrheal illness. No evidence of bowel obstruction, acute appendicitis, or other acute process in the abdomen or pelvis. 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 Moderate right hydronephrosis without visualization of hydroureter or obstructing calculi. This appearance is new versus CT scan dated 01/07/2025. Gallbladder hydrops without visualization of gallstones. This appearance may indicate acalculous cholecystitis. Fluid- filled colon with multiple air-fluid levels present, possibly related to diarrheal illness. No evidence of bowel obstruction, acute appendicitis, or other acute process in the abdomen or pelvis. - urology consulted - reconsulted nephrology - serum parathyroid hormone 185.9, corrected calcium 8.7 Infectious disease # bilateral lower extremity cellulitis # left lower extremity diabetic foot ulcer on the plantar aspect growing Staph aureus # Sepsis due to above # left heel pressure ulcer # ruled out DVT # Fungal cutaneous infection in b/l groin # candidal balanitis with superimposed necrosis - MRI from 01/09/2025 shows Mild diffuse subcutaneous soft-tissue edema; possibly cellulitis. No bone marrow edema is present to suggest fracture or acute osteomyelitis. - bilateral lower extremity arterial Doppler: No hemodynamically significant stenosis based on peak systolic velocity criteria. - bilateral lower extremity venous Doppler: No right or left femoropopliteal venous thrombosis - discontinued aztreonam and linezolid on 01/20/2025 - started cefepime, vancomycin and metronidazole on 01/20/2025 - podiatry on board - left foot MRI: No MR evidence of osteomyelitis. Cellulitis and lateral 4 for deep of the 5th metatarsal bone were wound is noted overlying dressing. Edema in the intrinsic muscle of the foot may reflect sequelae of denervation, or myositis. - discontinued vancomycin 01/23/2025, started patient on daptomycin on 01/23/2025 - discontinued daptomycin, vancomycin and cefepime on 01/24/2025 - started linezolid on 01/24/2025 - discontinued linezolid on 01/31/2025 owing to dropping platelet count - started IV vancomycin per pharmacy after approval from Nephrology to have the dose timed with dialysis sessions on 01/31/25 - topical nystatin Hem/onc # microcytic anemia # thrombocytosis likely secondary to sepsis # thrombocytopenia, worsening - s/p 2 PRBC - GI on board - monitor Endocrine # DKA, now resolved # recurrent episodes of hypoglycemia # severe protein calorie malnutrition # diabetic/starvation ketoacidosis, improved - discontinued lispro - holding insulin Lantus as patient continues to get hypoglycemic - mild sliding scale insulin - Accu-Cheks q4hr Diet Nepro carb steady with ProStat tube feedings Lines - right PICC line paced on 01/24/2025 - right-sided Dean catheter placed on 01/24/2025 - Jones catheter exchanged on 01/26/2025 Drips Lasix at 20 milligrams/hour KCl Transeferred to OXANA 01/23/25 Intubated on 01/06/25 Extubated on 01/12/25 Intubated again on 01/24/25 Extubated on 02/05/2025 critical care time excluding procedures was 86 mins including cpap trial and extubation Detailed discussion held with patient's father Called to inform patient's father about patient's extubation, per father he will come in the a.m. for repeat family meeting. Plan discussed with Dr. Dan Plan discussed with: Other (Father, RN) My Orders My Orders Orders - ANABELL ORDOÑEZ Procedure Category Date Status Time Abg W/ Co-Ox RT 02/05/25 Logged 04:00 Chest Portable XY 02/05/25 Resulted 04:00 Vancomycin,Random LAB 02/06/25 Verified 04:00 Creatine Kinase LAB 02/06/25 Verified 04:00 Abg W/ Co-Ox RT 02/05/25 Logged 13:12 Dietary Evaluation Review Recommendations by RD: Increase Calorie Intake Comments: Nutrition Recommendation: 1) Vital AF 1.2Cal @ 25ml/hr along with Pro-stat 1 pk BID. start @ 20ml/hr, increase 10ml/hr Q4H until goal is reached. TF @ goal volume along with propofol, IV D5wNS0.45%, and Pro-stat provides 1684 kcal (100% energy needs), 75gm protein (100% protein needs), 487ml free water. 2) TPN to meet 75% estimated needs if remains NPO 3) Bryce 1 pk BID for DFU Expected Outcomes/Goals: DFU to improve To maintain/gain weight To meet at least 75% estimated needs Fu 2-3 days Interpretation of weight loss: up to 5% in 1 month Muscle Mass (Severe): Mod to Severe Depletion Protein Calorie Malnutrition: Non-Severe Is there a minimum of two crit: Yes Date of Service: Feb 05, 2025 Billing Provider: AMY DAN MD Common Visit Codes: 26894-QIZXCLKX CARE 30-74 MIN, 66060-[id number] CARE-EACH +30MIN ANABELL ORDOÑEZ Feb 05, 2025 16:59 AMY DAN MD Feb 06, 2025 11:44
[2025-02-05] MEDS: EPOETIN ALFA-EPBX 10,000 UNIT/1ML VIAL SC ONE (20:38)
[2025-02-05 21:54] LABS: Chloride 102 mmol/L (98-107); Potassium 3.5 mmol/L (3.5-5.1); Sodium 138 mmol/L (136-145)
[2025-02-05 21:55] LABS: Anion Gap 7 (5-15); Carbon Dioxide 29 mmol/L (20-31)
[2025-02-05 21:56] LABS: Calcium 8.7 mg/dL (8.7-10.4)
[2025-02-05 22:00] LABS: BUN/Creatinine Ratio 13.3 (10.0-20.0); Blood Urea Nitrogen 16 mg/dL (9-23); Glucose 146 mg/dL (74-106)
[2025-02-06] VITALS (42 sets, daily range): BP systolic 114–156; BP diastolic 58–80; PULSE 16–113; RESP 13–37; TEMP 98.1–98.7; O2SAT 95–100
[2025-02-06] MEDS: MORPHINE SULFATE INJ 2 MG/ml SYRG IV ONE (02:28)
[2025-02-06 06:16] LABS: Anion Gap 10 (5-15); Calcium 8.7 mg/dL (8.7-10.4); Carbon Dioxide 26 mmol/L (20-31); Chloride 101 mmol/L (98-107); Sodium 137 mmol/L (136-145)
[2025-02-06 06:22] LABS: BUN/Creatinine Ratio 14.6 (10.0-20.0); Blood Urea Nitrogen 20 mg/dL (9-23); Creatine Kinase IFCC 17 U/L (46-171); Glucose 189 mg/dL (74-106); Potassium 3.5 mmol/L (3.5-5.1)
[2025-02-06] MEDS: DEXTROSE (50%) 50ML SYRG IV PRN (08:13)
[2025-02-06] MEDS: POTASSIUM EFFERVESENT TAB 25 MEQ PO ONE (09:05)
[2025-02-06 09:51] LABS: Alanine Aminotransferase 19 U/L (7-40)
[2025-02-06 09:56] LABS: Albumin 2.6 g/dL (3.2-4.8); Bilirubin, Direct 3.8 mg/dL (<0.3); Bilirubin, Total 4.9 mg/dL (0.2-1.0); Total Protein 5.3 g/dL (5.7-8.2)
[2025-02-06] MEDS ORDERED: DEXTROSE (50%) 50ML SYRG IV PRN (10:00)
[2025-02-06 10:04] LABS: Alkaline Phosphatase > 2300 U/L (46-116)
--- NOTE | 2025-02-06 10:40 | DVHPN2 ---
Progress Note Date Seen: Feb 06, 2025 Resident Creating Document: MARTI POWELL RESIDENT Medical Necessity Reason Pt with a Central, PICC or Fol: No The following are medically ne: Jones Catheter Reason for jones catheter: Strict I&O Subjective Review of Systems 02/06-patient is extubated, on room air, A&O x1-not oriented to place, reports that he has at home. Urine output 1700 cc per 24 hours. Phosphate 0.9. BUN/creatinine stable. Hemodialysis today. Objective vital signs Vital Sign Date Time Temp Pulse Resp B/P (MAP) Pulse Ox O2 Delivery O2 Flow Rate FiO2 02/06/25 06:09 121/61 02/06/25 06:00 105 13 100 02/06/25 06:00 Room Air* 0 21 02/06/25 00:00 98.6 98.6 Total Intake and Output 02/05/25 02/05/25 02/06/25 15:00 23:00 07:00 Intake Total 176 ml 543 ml 259 ml Output Total 1175 ml 950 ml Balance 176 ml -632 ml -691 ml medications Current Medications Medications Dose Ordered Sig/Zaria Route Start Time Stop Time Status Last Admin Dose Admin Famotidine 20 mg Q12HR IV 01/07/25 10:00 UNV Diagnostic Test (Pha) 1 strip IQ4HR 01/07/25 08:00 Cancel Calcium Gluconate/ Sodium Chloride 50 ml @ 100 mls/hr Q30M IV 01/08/25 17:30 01/08/25 18:29 Cancel Pantoprazole Sodium 40 mg BID IV 01/10/25 10:00 02/06/25 09:05 40 MG Sodium Chloride 10 ml QSHIFT@10,22 IV 01/24/25 22:00 02/06/25 09:06 10 ML Diagnostic Test (Pha) 1 strip Q4HR 01/26/25 14:00 UNV Amino Acid Protein 30 ml TIDWM PO 01/28/25 18:00 02/06/25 08:13 30 ML Enteral Nutritional Formula 1,000 ml 30ML/HR GT 01/29/25 18:15 02/05/25 06:11 1,000 ML Vancomycin HCl 0 ml @ 0 mls/hr UD IV 01/31/25 14:30 Cancel Ursodiol 300 mg BID NG 02/01/25 22:00 02/06/25 09:05 300 MG Furosemide 100 mg/ Sodium Chloride 110 ml @ 22 mls/hr Q5H IV 02/03/25 11:15 02/06/25 06:09 22 MLS/HR Vancomycin HCl 0 ml @ 0 mls/hr UD IV 02/03/25 16:45 Epoetin Paolo-epbx 10,000 unit TUTHSA SC 02/04/25 10:00 02/06/25 09:21 10,000 UNIT Albumin Human 100 ml @ 100 mls/hr PRN PRN IV 02/05/25 06:45 02/05/25 08:00 100 MLS/HR Diagnostic Test (Pha) 1 strip IQ4HR 02/06/25 12:00 Insulin Human Regular IQ4HR SC 02/06/25 12:00 Dextrose 50 ml UD PRN IV 02/06/25 10:00 Examination Patient lying in bed, status post extubation, on room air General: Sclerae icterus, malnourished, mucosae are moist Cardiovascular: Tachycardic but Regular S1 and S2. No murmurs, gallops or rubs. No JVD elevation. Trace resolving pedal edema Respiratory: Decreased bilateral breath sounds, no wheezing or crackles heard. Abdomen: Soft, nontender, nondistended, normoactive bowel sounds, no rebound tenderness, no organomegaly, no masses Genitourinary: Jones seen MSK/skin: Mobilizes 4 limbs. Skin is dry and warm Neurological: No motor, no sensitive deficits, normal speech. Pupils are isocoric and reactive. Psych/Mental Status: Confused but alert, following commands, A&O x1 laboratory and microbiology Laboratory Tests 02/06/25 04:28 02/05/25 04:35 Test 02/06/25 04:28 Range/Units Serum Glucose 189 H 74-106 mg/dL Microbiology Date/Time Source Procedure Growth Status 01/26/25 08:46 Urine - Jones Port Urine Culture - Final Complete 01/24/25 04:15 Sputum Gram Stain - Final Complete 01/24/25 04:15 Sputum Respiratory Culture - Final Complete 01/23/25 20:30 Pleural Fluid Gram Stain - Final Complete 01/23/25 20:30 Pleural Fluid Body Fluid Culture - Final Complete 01/19/25 16:06 Nose MRSA Screen - Final Complete 01/16/25 19:00 Blood Blood Culture - Final NO GROWTH AFTER 5 DAYS OF INCUBATION. Complete 01/08/25 10:37 Stool Stool Culture - Final Complete 01/08/25 10:37 Stool Shiga Toxin I & II - Final Complete Labs and/or images reviewed: Labs reviewed by me, Image(s) reviewed by me Problem List/Assessment/Plan Problem List/Assessment/Plan Acute kidney injury superimposed Chronic Kidney Disease stage IIIB secondary hemodynamic mediated ATN, FeNa > 2% - needing dialysis Acute hypoxic respiratory failure, patient extubated and then reintubated Hypokalemia Anemia of chronic kidney disease DKA-resolved Uncontrolled diabetes mellitus Anasarca elevated bilirubin, ALK phos thrombocytopenia Plan: BUN/creatinine stable, urine output improving. 1700 cc of urine. 15mmol Phosphorus IV replenished, repeat phosphorus and Mag in p.m.. failed response to lasix drip, HD scheduled today for volume control no heparin Epogen 3x a week Avoid hypotension poor overall prognosis Plan discussed with patient in which all questions have been answered Case discussed with Dr. Mandel Plan discussed with: Patient Dietary Evaluation Review Recommendations by RD: Increase Calorie Intake Comments: Nutrition Recommendation: 1) Vital AF 1.2Cal @ 25ml/hr along with Pro-stat 1 pk BID. start @ 20ml/hr, increase 10ml/hr Q4H until goal is reached. TF @ goal volume along with propofol, IV D5wNS0.45%, and Pro-stat provides 1684 kcal (100% energy needs), 75gm protein (100% protein needs), 487ml free water. 2) TPN to meet 75% estimated needs if remains NPO 3) Bryce 1 pk BID for DFU Expected Outcomes/Goals: DFU to improve To maintain/gain weight To meet at least 75% estimated needs Fu 2-3 days Interpretation of weight loss: up to 5% in 1 month Muscle Mass (Severe): Mod to Severe Depletion Protein Calorie Malnutrition: Non-Severe Is there a minimum of two crit: Yes MARTI POWELL RESIDENT Feb 06, 2025 10:40
--- NOTE | 2025-02-06 11:54 | DVH ---
RIGHT Upper Extremity Venous Duplex Clinical History: SWELLING,PICC LINE Comparison: US LT UPPER DVT on DOS: 02/02/23 Technique: Duplex Doppler evaluation of the venous system of the RIGHT lower neck and upper extremity including color Doppler and spectral/pulsed waveform analysis was performed. Findings: The internal jugular vein is not visualized. The subclavian vein is patent on color Doppler evaluation without intraluminal thrombus and demonstra claude waveform variability. The visualized portion of the brachiocephalic vein is patent on color Doppler evaluation without intr aluminal thrombus and demonstrates waveform variability. The axillary vein demonstrates appropriate compressibility and waveform variability. The brachial veins demonstrate appropriate compressibility and patency on Doppler evaluation. The basilic vein demonstrates appropriate compressibility and patency on Doppler evaluation. The cephalic vein demonstrates appropriate compressibility and patency on Doppler evaluation. Impression: Right internal jugular vein is not visualized. Otherwise, No venous thrombus identified in the RIGHT upper extremity vessels evaluated above.
[2025-02-06] MEDS: InsuLIN REG 1unit/0.01ml Soln (100units/ml) SC SCH (12:00)
[2025-02-06] MEDS: ACCU-CHEK COMFORT CURVE STRIP VI SCH (12:00)
--- NOTE | 2025-02-06 12:41 | DVHPNRES ---
Progress Note Date Seen: Feb 06, 2025 Resident Creating Document: ANABELL ORDOÑEZ RESIDENT Medical Necessity Reason Pt with a Central, PICC or Fol: No The following are medically ne: Jones Catheter Reason for jones catheter: Strict I&O Subjective Review of Systems Patient is a 44-year-old male with known history of type 1 diabetes mellitus who presented on 01/06/2025 via EMS for altered level of consciousness. Per EMS, the patient was found unresponsive with a blood glucose of 931 and received 400 cc IV fluids on route. On arrival he exhibited hypoxia, generalized weakness, increased work of breathing necessitating intubation and mechanical ventilation. Patient was started on IV insulin drip, Zosyn and vancomycin with bicarbonate for severe acidosis. A right femoral central line, midline and peripheral IVs were also placed. Of note, patient has a history of poor adherence to his insulin therapy. Per patient's father, patient lives alone in a trailer and had not been heard from since 01/02/2025. Patient was last hospitalized at the [facility] in November 2024 for DKA. On 01/07/2025, patient developed lip swelling while still intubated, chart review revealed a penicillin allergy. Zosyn was discontinued and patient was treated with methylprednisolone and transitioned to meropenem. Nephrology was consulted for RADHA and hypernatremia. A 01/10/2025, patient had begun to improve and was weaned off sedation and was extubated on 01/12/2025 and transferred telemetry. Antibiotics were discontinued at that time due to uncertainty about the cause of leukocytosis (steroids versus infection). However, WBCs continued to trend upwards and the patient developed low-grade fevers, subsequently restarted on linezolid and aztreonam. Patient has bilateral diabetic foot ulcers, left side more advanced than right. MRI of bilateral extremities shows mild subcutaneous edema, possibly cellulitis but no signs of osteomyelitis. Patient was also noted to have a pressure related ulcer to the left heel. Lower extremity arterial Doppler showed no significant stenosis. Vascular surgery evaluated the ulcers but recommended no interventions at this time. Podiatry already on board. 01/20/2025: Held insulin Lantus, discontinued lispro, mild sliding scale q.4 hours only. Started IV fluconazole for candidal infection in the groin. Podiatry reconsulted for evaluation of bilateral lower extremity ulcers. GI consult for anemia and positive stool occult blood. Discontinued linezolid and aztreonam, started on cefepime, vancomycin and metronidazole. 01/21/25: notes improved but continued nausea, new onset abdominal pain 9-05/02, localized to mid abdomen. Patient refused MRI owing to abdominal pain, we will reattempt tomorrow. Added metoclopramide qD along with norco and morphine as needed. Blood glucose in 290s, resumed lantus 7units qAM, however, dropping blood sugar by 4pm therefore discontinued lantus again. Pt refuses to eat and has severe aversion to food 01/22/25: improved abdominal pain today 6-01/30, agreeable to CT abdomen however still refusing MRI L foot. Plan to reattempt tomorrow. new moderate R sided hydronephrosis noted, urology consulted. denies dyspnea, sob. improving nausea. 01/23/2025: Patient notes feeling weaker than yesterday, denies abdominal pain. On physical exam decreased breath sounds more prominent on the left side and some crackles bibasilar. Discontinued vancomycin and started patient on daptomycin. Repeated left foot MRI which showed cellulitis in the lateral 4 for deep to the 5th metatarsal bone marrow wound is noted with overlying dressing, no evidence of osteomyelitis. IV furosemide was increased to 40 mg b.i.d. and patient was transferred to D . 01/24/2025: Overnight patient was intubated due to increasing respiratory distress, patient also underwent thoracentesis with 900 mL of fluid removed on the left side. For starvation/diabetic ketoacidosis, patient was started on an insulin drip and D10, gap was closed and bicarb was stabilized at 20. Blood glucose was 100 with a insulin drip was stopped, patient was started on D5 water at 50 cc/hours. Nephrology increased IV Lasix to 80 mg b.i.d. along with plan for renal replacement therapy tentatively in the p.m.. 01/25/2025- patient received right IJ Dean cath HD cath yesterday. Dialysis done 1 L removed. Today patient continues to have right upper extremity edema 2+. Left upper extremity is restricted has trace pitting edema and restricted due to history of DVT. Patient also has 1 to trace pedal edema bilaterally. Up to mid shins. Patient is not requiring any vasopressors. Patient is ventilated and due to acute hypoxic respiratory failure. Patient has no p.o. intake due to large gastric bubble and possible gastroparesis from prolonged uncontrolled diabetes. We will do TPN via PICC line now and hold off any enteral feeds. Continue IV antibiotics. Patient is anemic less than 7, 1 unit PRBC. Tentative plan to get EPO with HD, which may help. No sources of obvious hemorrhage. We are continuing D5 W for hypernatremia. We will do some education vacation today and if goes well possible CPAP trials tomorrow. We will continue sliding scale insulin Q 2. Patient antibiotics IV is linezolid only. 01/26/2025-no dialysis today. No lower extremity edema. Right upper extremity edema looks improved. Today doing sedation vacation and CPAP trial. Some electrolyte abnormalities not concerning nephrology reviewed. Patient on dialysis but still makes some urine 150 dark brown color. Patient is getting broad-spectrum antibiotics. Clinimix. Sedation vacation but otherwise patient was on Versed and fentanyl. Heart rate upper end of normal in the 100s. Blood pressure stable. No vasopressors. We will decrease Accu-Cheks to q.4. Decrease D5 to 30, being used for recurrent hypoglycemia. Otherwise continue primary team's plan. 01/27/2025: Patient seen and examined at bedside. Noted to have fluid overload, severe scrotal swelling, 2+ lower extremity nonpitting edema up to the thighs along with scleral edema was noted. Urine output of 325 mL in the past 24 hours. Undergoing dialysis today. Had an apneic episode during CPAP trial on 01/26/2025. 01/28/2025: Patient seen and examined at bedside. Minimal improvement in edema, s/p dialysis yesterday on 01/27/2025. Continues to have nonpitting edema up to knees along with scleral and scrotal edema. Jaundiced appearance noted. 01/29/25: Patient seen and examined at bedside. improved UOP since yesterday, worsening inspiratory crackles and LE edema. completed dialysis today, required 4mcg/hr of norepinephrine during dialysis. noted to have scabbed lesions on the penis. 01/30/2025: Patient seen and examined at bedside, improved lower extremity edema. Detailed discussions held with patient's parents at bedside. 01/31/2025: Patient seen and examined [place] [id number] [place]. Discontinued linezolid today on day 8 of treatment, started IV vancomycin per pharmacy after approval from Nephrology to have the dose timed with dialysis sessions. Repleted potassium with 40 mEq KCl rider. Urine output 100 mL in the last 24 hours, 700 mL of stool output via rectal tube. 02/01/25 patient remains intubated. Sedated. Sedation includes fentanyl 175 Versed 8. Continues to getting IV antibiotics broad-spectrum. Patient on ventilator a.c. 18/450/30%/5.0. Fecal tube with liquid output. Jones scant urine dark brown. Left upper extremity with pitting edema, dry other extremities. Tachycardic 114 sinus tachycardia. Continue primary team's plan of IV antibiotics, ongoing bilateral effusions, continuing dialysis with Nephrology. Platelets stable.. We will continue primary team's plan. No changes today. 02/02/2025 doing trial of CPAP patient not following commands. He is also on HD. Pulmonology bedside recommending against Versed. Likely sedatives we will still be the system as patient is not making any urine. We will try sedation vacation as long as patient can tolerate it.. His pupils are minimally responsive to light. But cough and gag reflex are present. Currently Versed fentanyl and Precedex are turned off. He is on spontaneous breathing trial CPAP and doing well. We will continuing IV antibiotics. Multiple lab abnormalities high ALP, thrombocytopenia. Patient is not on any heparin for concern for hit. Likely liver failure, GI is onboard giving ursodeoxycholic acid. We need to get GGT, PT INR PTT. And continuing further evaluation. Primary team to continue management tomorrow. 02/03/25: Liver function continues to decline. L lower extremity plantar wound with necrotic eschar noted, scabbing penile lesions persistent. resumed vancomycin scheduled with dialysis. scheduled family meeting for tomorrw. 02/04/2025: Bilirubin and alkaline phosphatase trending upwards, patient looking more jaundiced than previous days. Scheduled for dialysis today, detailed discussion held with patient's father Mr. Rayshawn devine, decided goals of care DNR. 02/05/2025: Patient completed CPAP trial, successfully extubated. Liver function continues to worsen. Called to inform patient's father about patient's extubation, per father he will come in the a.m. for repeat family meeting. 02/06/25: Patient seen and examined at bedside, blood glucose dropped to 32, changed insulin to a mild sliding scale. Serum phosphorus 0.9, repleted. Liver function minimally improving. Urine output 1700 mL over 24 hours. Details and care plan discussed with patient's father Mr. Dockery at bedside. Objective vital signs Vital Sign Date Time Temp Pulse Resp B/P (MAP) Pulse Ox O2 Delivery O2 Flow Rate FiO2 02/06/25 11:00 110 15 150/74 (99) 97 02/06/25 10:00 Room Air* 0 21 02/06/25 08:00 98.6 98.6 Total Intake and Output 02/05/25 02/05/25 02/06/25 15:00 23:00 07:00 Intake Total 176 ml 543 ml 259 ml Output Total 1175 ml 950 ml Balance 176 ml -632 ml -691 ml medications Current Medications Medications Dose Ordered Sig/Zaria Route Start Time Stop Time Status Last Admin Dose Admin Famotidine 20 mg Q12HR IV 01/07/25 10:00 UNV Diagnostic Test (Pha) 1 strip IQ4HR 01/07/25 08:00 Cancel Calcium Gluconate/ Sodium Chloride 50 ml @ 100 mls/hr Q30M IV 01/08/25 17:30 01/08/25 18:29 Cancel Pantoprazole Sodium 40 mg BID IV 01/10/25 10:00 02/06/25 09:05 40 MG Sodium Chloride 10 ml QSHIFT@10,22 IV 01/24/25 22:00 02/06/25 09:06 10 ML Diagnostic Test (Pha) 1 strip Q4HR 01/26/25 14:00 UNV Amino Acid Protein 30 ml TIDWM PO 01/28/25 18:00 02/06/25 08:13 30 ML Enteral Nutritional Formula 1,000 ml 30ML/HR GT 01/29/25 18:15 02/05/25 06:11 1,000 ML Vancomycin HCl 0 ml @ 0 mls/hr UD IV 01/31/25 14:30 Cancel Ursodiol 300 mg BID NG 02/01/25 22:00 02/06/25 09:05 300 MG Furosemide 100 mg/ Sodium Chloride 110 ml @ 22 mls/hr Q5H IV 02/03/25 11:15 02/06/25 06:09 22 MLS/HR Vancomycin HCl 0 ml @ 0 mls/hr UD IV 02/03/25 16:45 Epoetin Paolo-epbx 10,000 unit TUTHSA SC 02/04/25 10:00 02/06/25 09:21 10,000 UNIT Albumin Human 100 ml @ 100 mls/hr PRN PRN IV 02/05/25 06:45 02/05/25 08:00 100 MLS/HR Diagnostic Test (Pha) 1 strip IQ4HR 02/06/25 12:00 Insulin Human Regular IQ4HR SC 02/06/25 12:00 Dextrose 50 ml UD PRN IV 02/06/25 10:00 Examination General Appearance: Intubated and sedated. Malnourished, in mild distress. Jaundiced Head Exam: Normal inspection. No vision in right eye, decreased vision in left eye, minimally reactive pupils. Scleral edema Pulmonary/Respiratory: Chest non-tender. decreased bilateral breath sounds, no crackles, no wheezing. Cardiovascular/Chest: Tachycardic. No murmurs. No JVD. Abdominal Exam: Normal bowel sounds. Soft. normal abdomen, no visible veins, nontender No hepatospenomegaly. No masses Lower extremities: 2+ nonpitting lower extremity edema up to the thighs. Left heel pressure ulcer noted. Multiple diabetic foot ulcers on bilateral feet, largest 1 noted on left plantar foot with a dark black necrotic appearance Thoughts/Psych: Normal thought pattern. Appropriate mood and affect Skin Exam: improving groin lesions, redness noted along right gluteal area, scrotal swelling. penile scabs laboratory and microbiology Laboratory Tests 02/06/25 04:28 02/05/25 04:35 Test 02/06/25 04:28 Range/Units Serum Glucose 189 H 74-106 mg/dL Microbiology Date/Time Source Procedure Growth Status 01/26/25 08:46 Urine - Jones Port Urine Culture - Final Complete 01/24/25 04:15 Sputum Gram Stain - Final Complete 01/24/25 04:15 Sputum Respiratory Culture - Final Complete 01/23/25 20:30 Pleural Fluid Gram Stain - Final Complete 01/23/25 20:30 Pleural Fluid Body Fluid Culture - Final Complete 01/19/25 16:06 Nose MRSA Screen - Final Complete 01/16/25 19:00 Blood Blood Culture - Final NO GROWTH AFTER 5 DAYS OF INCUBATION. Complete 01/08/25 10:37 Stool Stool Culture - Final Complete 01/08/25 10:37 Stool Shiga Toxin I & II - Final Complete Labs and/or images reviewed: Labs reviewed by me, Image(s) reviewed by me Problem List/Assessment/Plan Problem List/Assessment/Plan Neurology # acute metabolic encephalopathy likely due to DKA vs Sepsis, improving - head CT from 01/07/2025: No acute territorial infarct, intracranial hemorrhage or mass effect - head CT from 01/19/2025: No acute intracranial abnormality - monitor Cardiovascular # runs of AFib on EKG # prolonged QTC # Essential hypertension - avoiding QT prolonging drugs - echocardiogram from 07/20/2022: Overall preserved ventricular systolic function. EF 60%. Grade 1 diastolic dysfunction. - increased amlodipine to 10mg qD - repeat echo: Mild LVH and mild LV diastolic dysfunction. LVEF 65%. Slightly dilated left atrium. Moderately dilated RV and RA. Moderate degree pulmonary hypertension. Normal valves and no effusion. - monitor Respiratory # Community acquired pneumonia, Gram-positive versus Gram-negative # Acute hypoxic respiratory failure due to above, intubated and mechanically ventilated # moderate-large b/l Pleural effusions # moderate pulmonary hypertension with RVSP 46 mmHg - CXR 01/08/25: Bibasilar atelectasis or pneumonia. - CXR 01/20/25: Patchy bilateral airspace disease, [id number], slightly increased - previously on meropenem and vancomycin, stopped on 01/12/2025 - started on aztreonam on 01/17/2025, linezolid 01/16/2025 - discontinued aztreonam and linezolid on 01/20/2025 - started cefepime, vancomycin and metronidazole on 01/20/2025 - discontinued vancomycin 01/23/2025 - started linezolid, however, dc'ed linezolid on d/t thrombocytopenia, resumed vancomycin on 01/31 - s/p thoracentesis with 900 mL of fluid removed on 01/23/2025 GI # Acute intractable abdominal pain (01/21/25), improved # cholestasis of critical illness # Microcytic anemia possibly 2' to ?LGI bleed; Hb 7.8 # Moderate abdominopelvic ascites # Peptic ulcer prophylaxis # gallbladder hydrops # hypokalemia - stool occult blood positive - GI consult - CT abdomen pelvis from 01/07/2025: Nonspecific periportal edema. Incidental finding. -Pantoprazole 40 mg IV daily - serum lipase 113 - repeat CT abdomen pelvis (01/22/25): Moderate to large bilateral pleural effusions with patchy and consolidative infiltrates in the lung bases likely a combination of pneumonia and atelectasis.mLow to moderate volume abdominopelvic ascites and diffuse subcutaneous edema suggestive of anasarca. Moderate right hydronephrosis without visualization of hydroureter or obstructing calculi. This appearance is new versus CT scan dated 01/07/2025. Gallbladder hydrops without visualization of gallstones. This appearance may indicate acalculous cholecystitis. Fluid-filled colon with multiple air-fluid levels present, possibly related to diarrheal illness. No evidence of bowel obstruction, acute appendicitis, or other acute process in the abdomen or pelvis. 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 Moderate right hydronephrosis without visualization of hydroureter or obstructing calculi. This appearance is new versus CT scan dated 01/07/2025. Gallbladder hydrops without visualization of gallstones. This appearance may indicate acalculous cholecystitis. Fluid- filled colon with multiple air-fluid levels present, possibly related to diarrheal illness. No evidence of bowel obstruction, acute appendicitis, or other acute process in the abdomen or pelvis. - urology consulted - reconsulted nephrology - serum parathyroid hormone 185.9, corrected calcium 8.7 - currently running Lasix drip started on 02/04/25 Infectious disease # bilateral lower extremity cellulitis # left lower extremity diabetic foot ulcer on the plantar aspect growing Staph aureus # Sepsis due to above # left heel pressure ulcer # ruled out DVT # Fungal cutaneous infection in b/l groin # candidal balanitis with superimposed necrosis - MRI from 01/09/2025 shows Mild diffuse subcutaneous soft-tissue edema; possibly cellulitis. No bone marrow edema is present to suggest fracture or acute osteomyelitis. - bilateral lower extremity arterial Doppler: No hemodynamically significant stenosis based on peak systolic velocity criteria. - bilateral lower extremity venous Doppler: No right or left femoropopliteal venous thrombosis - discontinued aztreonam and linezolid on 01/20/2025 - started cefepime, vancomycin and metronidazole on 01/20/2025 - podiatry on board - left foot MRI: No MR evidence of osteomyelitis. Cellulitis and lateral 4 for deep of the 5th metatarsal bone were wound is noted overlying dressing. Edema in the intrinsic muscle of the foot may reflect sequelae of denervation, or myositis. - discontinued vancomycin 01/23/2025, started patient on daptomycin on 01/23/2025 - discontinued daptomycin, vancomycin and cefepime on 01/24/2025 - started linezolid on 01/24/2025 - discontinued linezolid on 01/31/2025 owing to dropping platelet count - started IV vancomycin per pharmacy after approval from Nephrology to have the dose timed with dialysis sessions on 01/31/25 - topical nystatin Hem/onc # microcytic anemia # thrombocytosis likely secondary to sepsis # thrombocytopenia, worsening - s/p 2 PRBC - GI on board - monitor Endocrine # DKA, now resolved # recurrent episodes of hypoglycemia # severe protein calorie malnutrition # diabetic/starvation ketoacidosis, improved - discontinued lispro - holding insulin Lantus as patient continues to get hypoglycemic - mild sliding scale insulin - Accu-Cheks q4hr Diet Nepro carb steady with ProStat tube feedings Lines - right PICC line paced on 01/24/2025 - right-sided Dean catheter placed on 01/24/2025 - Jones catheter exchanged on 01/26/2025 Drips Lasix at 20 milligrams/hour KCl Transeferred to OXANA 01/23/25 Intubated on 01/06/25 Extubated on 01/12/25 Intubated again on 01/24/25 Extubated on 02/05/2025 critical care time excluding procedures was 56 mins Detailed discussion held with patient's father at bedside, decided to currently leave patient has modified code, to revisit conversation next week. Plan discussed with Dr. Dan Plan discussed with: Patient, Other (Patient's father, RN) My Orders My Orders Orders - ANABELL ORDOÑEZ RESIDENT Procedure Category Date Status Time Abg W/ Co-Ox RT 02/05/25 Logged 13:12 Chest Portable XY 02/06/25 Taken 07:32 Vancomycin,Random LAB 02/07/25 Verified 04:00 Creatinine LAB 02/07/25 Verified 04:00 Rt Upper Dvt US 02/06/25 Resulted 09:25 Glucose Blood PHA 02/06/25 In Process (Accu-Chek Comfort 12:00 Insulin R (Human) PHA 02/06/25 In Process (Insulin R) 12:00 Dextrose 50% Syringe PHA 02/06/25 In Process 10:00 Complete Blood Count LAB 02/07/25 Verified 04:00 Comprehensive LAB 02/07/25 Verified Metabolic Panel 04:00 Phosphorus LAB 02/07/25 Verified 04:00 Magnesium LAB 02/07/25 Verified 04:00 Dietary Evaluation Review Recommendations by RD: Increase Calorie Intake Comments: Nutrition Recommendation: 1) Vital AF 1.2Cal @ 25ml/hr along with Pro-stat 1 pk BID. start @ 20ml/hr, increase 10ml/hr Q4H until goal is reached. TF @ goal volume along with propofol, IV D5wNS0.45%, and Pro-stat provides 1684 kcal (100% energy needs), 75gm protein (100% protein needs), 487ml free water. 2) TPN to meet 75% estimated needs if remains NPO 3) Bryce 1 pk BID for DFU Expected Outcomes/Goals: DFU to improve To maintain/gain weight To meet at least 75% estimated needs Fu 2-3 days Interpretation of weight loss: up to 5% in 1 month Muscle Mass (Severe): Mod to Severe Depletion Protein Calorie Malnutrition: Non-Severe Is there a minimum of two crit: Yes Date of Service: Feb 06, 2025 Billing Provider: AMY DAN MD Common Visit Codes: 59166-[id number] CARE 30-74 MIN ANABELL ORDOÑEZ Feb 06, 2025 12:41 AMY DAN MD Feb 08, 2025 10:53
--- NOTE | 2025-02-06 12:47 | DVH ---
EXAM: XY CHEST PORTABLE Indication: s/p extubation Technique: Single frontal view of the chest was obtained Comparison: XY CHEST PORTABLE on DOS: 02/05/25, XY CHEST PORTABLE on DOS: 02/04/25, XY CHEST PORTABLE o n DOS: 02/03/25, XY CHEST PORTABLE on DOS: 02/02/25, XY CHEST PORTABLE on DOS: 02/01/25 FINDINGS: Lines and Tubes: Interval removal of endotracheal tube. Enteric tube tip projects over the expected r egion of the stomach. Right internal jugular central venous catheter tip projects over the superior v cody cava. Right PICC tip projects over the cavoatrial junction. Lungs: Diffuse interstitial opacities. Pleura: No effusion. No pneumothorax. Cardiomediastinal contours: Unremarkable Bones: No acute osseous abnormality. IMPRESSION: Interval removal of endotracheal tube. Otherwise no significant change compared to prior exam.
--- NOTE | 2025-02-06 14:12 | DVHPN2 ---
Progress Note Date Seen: Feb 06, 2025 Medical Necessity Reason Pt with a Central, PICC or Fol: Yes The following are medically ne: Central Line, Jones Catheter Reason for jones catheter: Strict I&O Subjective Patient reports: Feels better Objective vital signs Vital Sign Date Time Temp Pulse Resp B/P (MAP) Pulse Ox O2 Delivery O2 Flow Rate FiO2 02/06/25 13:15 141/65 02/06/25 12:00 106 02/06/25 12:00 14 97 Room Air* 0 21 02/06/25 08:00 98.6 98.6 Total Intake and Output 02/05/25 02/05/25 02/06/25 15:00 23:00 07:00 Intake Total 176 ml 543 ml 259 ml Output Total 1175 ml 950 ml Balance 176 ml -632 ml -691 ml medications Current Medications Medications Dose Ordered Sig/Zaria Route Start Time Stop Time Status Last Admin Dose Admin Famotidine 20 mg Q12HR IV 01/07/25 10:00 UNV Diagnostic Test (Pha) 1 strip IQ4HR 01/07/25 08:00 Cancel Calcium Gluconate/ Sodium Chloride 50 ml @ 100 mls/hr Q30M IV 01/08/25 17:30 01/08/25 18:29 Cancel Pantoprazole Sodium 40 mg BID IV 01/10/25 10:00 02/06/25 09:05 40 MG Sodium Chloride 10 ml QSHIFT@10,22 IV 01/24/25 22:00 02/06/25 09:06 10 ML Diagnostic Test (Pha) 1 strip Q4HR 01/26/25 14:00 UNV Amino Acid Protein 30 ml TIDWM PO 01/28/25 18:00 02/06/25 08:13 30 ML Enteral Nutritional Formula 1,000 ml 30ML/HR GT 01/29/25 18:15 02/05/25 06:11 1,000 ML Vancomycin HCl 0 ml @ 0 mls/hr UD IV 01/31/25 14:30 Cancel Ursodiol 300 mg BID NG 02/01/25 22:00 02/06/25 09:05 300 MG Furosemide 100 mg/ Sodium Chloride 110 ml @ 22 mls/hr Q5H IV 02/03/25 11:15 02/06/25 13:15 22 MLS/HR Vancomycin HCl 0 ml @ 0 mls/hr UD IV 02/03/25 16:45 Epoetin Paolo-epbx 10,000 unit TUTHSA SC 02/04/25 10:00 02/06/25 09:21 10,000 UNIT Albumin Human 100 ml @ 100 mls/hr PRN PRN IV 02/05/25 06:45 02/05/25 08:00 100 MLS/HR Diagnostic Test (Pha) 1 strip IQ4HR 02/06/25 12:00 Insulin Human Regular IQ4HR SC 02/06/25 12:00 Dextrose 50 ml UD PRN IV 02/06/25 10:00 Examination: GENERAL:Abnormal, CVS:Abnormal, SKIN:Abnormal laboratory and microbiology Laboratory Tests 02/06/25 04:28 02/05/25 04:35 Test 02/06/25 04:28 Range/Units Serum Glucose 189 H 74-106 mg/dL Microbiology Date/Time Source Procedure Growth Status 01/26/25 08:46 Urine - Jones Port Urine Culture - Final Complete 01/24/25 04:15 Sputum Gram Stain - Final Complete 01/24/25 04:15 Sputum Respiratory Culture - Final Complete 01/23/25 20:30 Pleural Fluid Gram Stain - Final Complete 01/23/25 20:30 Pleural Fluid Body Fluid Culture - Final Complete 01/19/25 16:06 Nose MRSA Screen - Final Complete 01/16/25 19:00 Blood Blood Culture - Final NO GROWTH AFTER 5 DAYS OF INCUBATION. Complete 01/08/25 10:37 Stool Stool Culture - Final Complete 01/08/25 10:37 Stool Shiga Toxin I & II - Final Complete Problem List/Assessment/Plan Problem List/Assessment/Plan Acute kidney injury superimposed Chronic Kidney Disease stage IIIB secondary hemodynamic mediated ATN, FeNa > 2% - needing dialysis Acute hypoxic respiratory failure, patient extubated and then reintubated ---> extubated 02/05/25 Hypokalemia Anemia of chronic kidney disease Anasarca elevated bilirubin, ALK phos thrombocytopenia severe protein calorie malnutrition cr less than 1, UOP > 2L, low potassium level HD cancelled reduce lasix drip 7mg/hr replace potassium and phos today IV albumin explained to patient today now that he is alert and extubated renal function has possibly recovered but is still guarded tube feeding and monitor residuals no heparin Epogen 3x a week Avoid hypotension poor overall prognosis Plan discussed with: Patient Dietary Evaluation Review Recommendations by RD: Increase Calorie Intake Comments: Nutrition Recommendation: 1) Vital AF 1.2Cal @ 25ml/hr along with Pro-stat 1 pk BID. start @ 20ml/hr, increase 10ml/hr Q4H until goal is reached. TF @ goal volume along with propofol, IV D5wNS0.45%, and Pro-stat provides 1684 kcal (100% energy needs), 75gm protein (100% protein needs), 487ml free water. 2) TPN to meet 75% estimated needs if remains NPO 3) Bryce 1 pk BID for DFU Expected Outcomes/Goals: DFU to improve To maintain/gain weight To meet at least 75% estimated needs Fu 2-3 days Interpretation of weight loss: up to 5% in 1 month Muscle Mass (Severe): Mod to Severe Depletion Protein Calorie Malnutrition: Non-Severe Is there a minimum of two crit: Yes Critical Care Time (mins): 33 MIKO PALOMINO MD Feb 06, 2025 14:12
[2025-02-06] MEDS: FUROSEMIDE INJECTION 100 MG in SODIUM CHL 0.9% 100 ML IV SCH (14:15)
[2025-02-06] MEDS: SODIUM PHOSPHATES 20 MEQ in SODIUM CHL 0.9% 100 ML IV ONE (14:39)
[2025-02-06] MEDS: ALBUMIN 25% 100 ML IV SCH (15:58)
[2025-02-06 20:19] LABS: Magnesium 1.7 mg/dL (1.6-2.6)
--- NOTE | 2025-02-06 20:37 | DVHPN2 ---
Progress Note - Dictate Date Seen: Feb 06, 2025 Medical Necessity Reason Pt with a Central, PICC or Fol: Yes The following are medically ne: Central Line, Jones Catheter Reason for jones catheter: Strict I&O Subjective No new complaints Patient is extubated He is slightly confused and altered He is still on enteral tube feedings at 30 mL of per hour with minimal residuals Moderate persistent elevation in liver enzymes vital signs Vital Sign Date Time Temp Pulse Resp B/P (MAP) Pulse Ox O2 Delivery O2 Flow Rate FiO2 02/06/25 18:21 109 02/06/25 18:21 16 100 Room Air* 0 21 02/06/25 16:00 98.7 148/72 (97) 98.7 Total Intake and Output 02/05/25 02/05/25 02/06/25 15:00 23:00 07:00 Intake Total 176 ml 543 ml 259 ml Output Total 1175 ml 950 ml Balance 176 ml -632 ml -691 ml medications Current Medications Medications Dose Ordered Sig/Zaria Route Start Time Stop Time Status Last Admin Dose Admin Famotidine 20 mg Q12HR IV 01/07/25 10:00 UNV Diagnostic Test (Pha) 1 strip IQ4HR 01/07/25 08:00 Cancel Calcium Gluconate/ Sodium Chloride 50 ml @ 100 mls/hr Q30M IV 01/08/25 17:30 01/08/25 18:29 Cancel Pantoprazole Sodium 40 mg BID IV 01/10/25 10:00 02/06/25 09:05 40 MG Sodium Chloride 10 ml QSHIFT@10,22 IV 01/24/25 22:00 02/06/25 09:06 10 ML Diagnostic Test (Pha) 1 strip Q4HR 01/26/25 14:00 UNV Amino Acid Protein 30 ml TIDWM PO 01/28/25 18:00 02/06/25 18:12 30 ML Enteral Nutritional Formula 1,000 ml 30ML/HR GT 01/29/25 18:15 02/05/25 06:11 1,000 ML Vancomycin HCl 0 ml @ 0 mls/hr UD IV 01/31/25 14:30 Cancel Ursodiol 300 mg BID NG 02/01/25 22:00 02/06/25 09:05 300 MG Vancomycin HCl 0 ml @ 0 mls/hr UD IV 02/03/25 16:45 Epoetin Paolo-epbx 10,000 unit TUTHSA SC 02/04/25 10:00 02/06/25 09:21 10,000 UNIT Albumin Human 100 ml @ 100 mls/hr PRN PRN IV 02/05/25 06:45 02/05/25 08:00 100 MLS/HR Diagnostic Test (Pha) 1 strip IQ4HR 02/06/25 12:00 02/06/25 19:57 1 STRIP Insulin Human Regular IQ4HR SC 02/06/25 12:00 02/06/25 19:59 6 UNITS Dextrose 50 ml UD PRN IV 02/06/25 10:00 Albumin Human 100 ml @ 100 mls/hr Q8H IV 02/06/25 14:15 02/07/25 07:14 02/06/25 15:58 100 MLS/HR Furosemide 100 mg/ Sodium Chloride 110 ml @ 7.7 mls/hr [id number] IV 02/06/25 14:45 02/06/25 14:15 7.7 MLS/HR objective Intubated sedated hemodynamically stable Mild Abdominal distention no masses Generalized anasarca and scrotal swelling laboratory and microbiology Laboratory Tests 02/06/25 04:28 02/05/25 04:35 Test 02/06/25 04:28 Range/Units Serum Glucose 189 H 74-106 mg/dL Problems(with codes): (1) Elevated AFP (2) Gallstones (3) Gallbladder hydrops (4) Cannabinoid hyperemesis syndrome (5) Hypoglycemia associated with diabetes (6) Coffee ground emesis (7) Diabetic keto-acidosis (8) Hiatal hernia (9) Erosive esophagitis Prognosis Plan Protonix 40 mg IV daily When the patient is more awake we will consider swallow evaluation Start diet when the patient is able to swallow Consider MRCP when the patient is stable enough to undergo an MRCP procedure Continue to monitor liver enzymes, patient likely has cholelithiasis rule out any CBD stone Dietary Evaluation Review Recommendations by RD: Increase Calorie Intake Comments: Nutrition Recommendation: 1) Vital AF 1.2Cal @ 25ml/hr along with Pro-stat 1 pk BID. start @ 20ml/hr, increase 10ml/hr Q4H until goal is reached. TF @ goal volume along with propofol, IV D5wNS0.45%, and Pro-stat provides 1684 kcal (100% energy needs), 75gm protein (100% protein needs), 487ml free water. 2) TPN to meet 75% estimated needs if remains NPO 3) Bryce 1 pk BID for DFU Expected Outcomes/Goals: DFU to improve To maintain/gain weight To meet at least 75% estimated needs Fu 2-3 days Interpretation of weight loss: up to 5% in 1 month Muscle Mass (Severe): Mod to Severe Depletion Protein Calorie Malnutrition: Non-Severe Is there a minimum of two crit: Yes Plan discussed with: Other (None) LETTY GENTILE MD Feb 06, 2025 20:37
[2025-02-07] VITALS (45 sets, daily range): BP systolic 101–173; BP diastolic 70–88; PULSE 93–115; RESP 12–35; TEMP 98.4–98.7; O2SAT 92–100
[2025-02-07 05:42] LABS: Hematocrit 20.6 % (41.0-53.0); Mean Corpuscular Hemoglobin 25.8 pg (28.0-32.0); Mean Corpuscular Volume 82.3 fL (80.0-100.0)
[2025-02-07 05:46] LABS: Hemoglobin 6.5 g/dL (13.5-17.5)
[2025-02-07 06:02] LABS: Alanine Aminotransferase 17 U/L (7-40); Anion Gap 9 (5-15); BUN/Creatinine Ratio 15.3 (10.0-20.0); Carbon Dioxide 27 mmol/L (20-31); Chloride 103 mmol/L (98-107); Magnesium 1.7 mg/dL (1.6-2.6); Sodium 139 mmol/L (136-145)
[2025-02-07 06:03] LABS: Albumin 2.9 g/dL (3.2-4.8); Bilirubin, Total 3.4 mg/dL (0.2-1.0); Blood Urea Nitrogen 27 mg/dL (9-23); Calcium 8.2 mg/dL (8.7-10.4); Glucose 227 mg/dL (74-106); Potassium 3.4 mmol/L (3.5-5.1); Total Protein 5.5 g/dL (5.7-8.2)
[2025-02-07 06:10] LABS: Alkaline Phosphatase > 2300 U/L (46-116)
[2025-02-07 06:38] LABS: Nucleated Red Blood Cells % 3.0 %; Total Cells Counted 100.0 (100)
[2025-02-07] MEDS: POTASSIUM CHL 20MEQ/100ML 100 ML IV ONE (06:48)
[2025-02-07] MEDS: MAGNESIUM SULFATE 1GM/100ML 100 ML IV ONE (06:48)
--- NOTE | 2025-02-07 09:14 | DVHPNRES ---
Progress Note Date Seen: Feb 07, 2025 Resident Creating Document: ANABELL ORDOÑEZ RESIDENT Medical Necessity Reason Pt with a Central, PICC or Fol: Yes The following are medically ne: Central Line, Jones Catheter Reason for jones catheter: Strict I&O Subjective Review of Systems Patient is a 44-year-old male with known history of type 1 diabetes mellitus who presented on 01/06/2025 via EMS for altered level of consciousness. Per EMS, the patient was found unresponsive with a blood glucose of 931 and received 400 cc IV fluids on route. On arrival he exhibited hypoxia, generalized weakness, increased work of breathing necessitating intubation and mechanical ventilation. Patient was started on IV insulin drip, Zosyn and vancomycin with bicarbonate for severe acidosis. A right femoral central line, midline and peripheral IVs were also placed. Of note, patient has a history of poor adherence to his insulin therapy. Per patient's father, patient lives alone in a trailer and had not been heard from since 01/02/2025. Patient was last hospitalized at the [facility] in November 2024 for DKA. On 01/07/2025, patient developed lip swelling while still intubated, chart review revealed a penicillin allergy. Zosyn was discontinued and patient was treated with methylprednisolone and transitioned to meropenem. Nephrology was consulted for RADHA and hypernatremia. A 01/10/2025, patient had begun to improve and was weaned off sedation and was extubated on 01/12/2025 and transferred telemetry. Antibiotics were discontinued at that time due to uncertainty about the cause of leukocytosis (steroids versus infection). However, WBCs continued to trend upwards and the patient developed low-grade fevers, subsequently restarted on linezolid and aztreonam. Patient has bilateral diabetic foot ulcers, left side more advanced than right. MRI of bilateral extremities shows mild subcutaneous edema, possibly cellulitis but no signs of osteomyelitis. Patient was also noted to have a pressure related ulcer to the left heel. Lower extremity arterial Doppler showed no significant stenosis. Vascular surgery evaluated the ulcers but recommended no interventions at this time. Podiatry already on board. 01/20/2025: Held insulin Lantus, discontinued lispro, mild sliding scale q.4 hours only. Started IV fluconazole for candidal infection in the groin. Podiatry reconsulted for evaluation of bilateral lower extremity ulcers. GI consult for anemia and positive stool occult blood. Discontinued linezolid and aztreonam, started on cefepime, vancomycin and metronidazole. 01/21/25: notes improved but continued nausea, new onset abdominal pain -05/02, localized to mid abdomen. Patient refused MRI owing to abdominal pain, we will reattempt tomorrow. Added metoclopramide qD along with norco and morphine as needed. Blood glucose in 290s, resumed lantus 7units qAM, however, dropping blood sugar by 4pm therefore discontinued lantus again. Pt refuses to eat and has severe aversion to food 01/22/25: improved abdominal pain today 6-01/30, agreeable to CT abdomen however still refusing MRI L foot. Plan to reattempt tomorrow. new moderate R sided hydronephrosis noted, urology consulted. denies dyspnea, sob. improving nausea. 01/23/2025: Patient notes feeling weaker than yesterday, denies abdominal pain. On physical exam decreased breath sounds more prominent on the left side and some crackles bibasilar. Discontinued vancomycin and started patient on daptomycin. Repeated left foot MRI which showed cellulitis in the lateral 4 for deep to the 5th metatarsal bone marrow wound is noted with overlying dressing, no evidence of osteomyelitis. IV furosemide was increased to 40 mg b.i.d. and patient was transferred to D . 01/24/2025: Overnight patient was intubated due to increasing respiratory distress, patient also underwent thoracentesis with 900 mL of fluid removed on the left side. For starvation/diabetic ketoacidosis, patient was started on an insulin drip and D10, gap was closed and bicarb was stabilized at 20. Blood glucose was 100 with a insulin drip was stopped, patient was started on D5 water at 50 cc/hours. Nephrology increased IV Lasix to 80 mg b.i.d. along with plan for renal replacement therapy tentatively in the p.m.. 01/25/2025- patient received right IJ Dean cath HD cath yesterday. Dialysis done 1 L removed. Today patient continues to have right upper extremity edema 2+. Left upper extremity is restricted has trace pitting edema and restricted due to history of DVT. Patient also has 1 to trace pedal edema bilaterally. Up to mid shins. Patient is not requiring any vasopressors. Patient is ventilated and due to acute hypoxic respiratory failure. Patient has no p.o. intake due to large gastric bubble and possible gastroparesis from prolonged uncontrolled diabetes. We will do TPN via PICC line now and hold off any enteral feeds. Continue IV antibiotics. Patient is anemic less than 7, 1 unit PRBC. Tentative plan to get EPO with HD, which may help. No sources of obvious hemorrhage. We are continuing D5 W for hypernatremia. We will do some education vacation today and if goes well possible CPAP trials tomorrow. We will continue sliding scale insulin Q 2. Patient antibiotics IV is linezolid only. 01/26/2025-no dialysis today. No lower extremity edema. Right upper extremity edema looks improved. Today doing sedation vacation and CPAP trial. Some electrolyte abnormalities not concerning nephrology reviewed. Patient on dialysis but still makes some urine 150 dark brown color. Patient is getting broad-spectrum antibiotics. Clinimix. Sedation vacation but otherwise patient was on Versed and fentanyl. Heart rate upper end of normal in the 100s. Blood pressure stable. No vasopressors. We will decrease Accu-Cheks to q.4. Decrease D5 to 30, being used for recurrent hypoglycemia. Otherwise continue primary team's plan. 01/27/2025: Patient seen and examined at bedside. Noted to have fluid overload, severe scrotal swelling, 2+ lower extremity nonpitting edema up to the thighs along with scleral edema was noted. Urine output of 325 mL in the past 24 hours. Undergoing dialysis today. Had an apneic episode during CPAP trial on 01/26/2025. 01/28/2025: Patient seen and examined at bedside. Minimal improvement in edema, s/p dialysis yesterday on 01/27/2025. Continues to have nonpitting edema up to knees along with scleral and scrotal edema. Jaundiced appearance noted. 01/29/25: Patient seen and examined at bedside. improved UOP since yesterday, worsening inspiratory crackles and LE edema. completed dialysis today, required 4mcg/hr of norepinephrine during dialysis. noted to have scabbed lesions on the penis. 01/30/2025: Patient seen and examined at bedside, improved lower extremity edema. Detailed discussions held with patient's parents at bedside. 01/31/2025: Patient seen and examined [place] [id number] [place]. Discontinued linezolid today on day 8 of treatment, started IV vancomycin per pharmacy after approval from Nephrology to have the dose timed with dialysis sessions. Repleted potassium with 40 mEq KCl rider. Urine output 100 mL in the last 24 hours, 700 mL of stool output via rectal tube. 02/01/25 patient remains intubated. Sedated. Sedation includes fentanyl 175 Versed 8. Continues to getting IV antibiotics broad-spectrum. Patient on ventilator a.c. 18/450/30%/5.0. Fecal tube with liquid output. Jones scant urine dark brown. Left upper extremity with pitting edema, dry other extremities. Tachycardic 114 sinus tachycardia. Continue primary team's plan of IV antibiotics, ongoing bilateral effusions, continuing dialysis with Nephrology. Platelets stable.. We will continue primary team's plan. No changes today. 02/02/2025 doing trial of CPAP patient not following commands. He is also on HD. Pulmonology bedside recommending against Versed. Likely sedatives we will still be the system as patient is not making any urine. We will try sedation vacation as long as patient can tolerate it.. His pupils are minimally responsive to light. But cough and gag reflex are present. Currently Versed fentanyl and Precedex are turned off. He is on spontaneous breathing trial CPAP and doing well. We will continuing IV antibiotics. Multiple lab abnormalities high ALP, thrombocytopenia. Patient is not on any heparin for concern for hit. Likely liver failure, GI is onboard giving ursodeoxycholic acid. We need to get GGT, PT INR PTT. And continuing further evaluation. Primary team to continue management tomorrow. 02/03/25: Liver function continues to decline. L lower extremity plantar wound with necrotic eschar noted, scabbing penile lesions persistent. resumed vancomycin scheduled with dialysis. scheduled family meeting for tomorrw. 02/04/2025: Bilirubin and alkaline phosphatase trending upwards, patient looking more jaundiced than previous days. Scheduled for dialysis today, detailed discussion held with patient's father Mr. Rayshawn devine, decided goals of care DNR. 02/05/2025: Patient completed CPAP trial, successfully extubated. Liver function continues to worsen. Called to inform patient's father about patient's extubation, per father he will come in the a.m. for repeat family meeting. 02/06/25: Patient seen and examined at bedside, blood glucose dropped to 32, changed insulin to a mild sliding scale. Serum phosphorus 0.9, repleted. Liver function minimally improving. Urine output 1700 mL over 24 hours. Details and care plan discussed with patient's father Mr. Dockery at bedside. 02/07/25: WBCs trending upwards, overnight hemoglobin dropped to 6.5: S/p 1 PRBC transfusion, added IV ceftriaxone. Patient continues to be noncompliant, pulled out NG tube x7, tried pulling out Dean catheter. Currently on Lasix 7 milligrams/minute, once drip finishes, we will be transitioned to IV Lasix 40 mg b.i.d. ordered swallow evaluation. Objective vital signs Vital Sign Date Time Temp Pulse Resp B/P (MAP) Pulse Ox O2 Delivery O2 Flow Rate FiO2 02/07/25 08:00 107 02/07/25 08:00 12 95 Nasal Cannula* 3 32 02/07/25 06:30 163/81 (108) 02/07/25 04:00 98.5 98.5 Total Intake and Output 02/06/25 02/06/25 02/07/25 15:00 23:00 07:00 Intake Total 161.7 ml 821.35 ml 482.9 ml Output Total 700 ml 925 ml Balance 161.7 ml 121.35 ml -442.1 ml medications Current Medications Medications Dose Ordered Sig/Zaria Route Start Time Stop Time Status Last Admin Dose Admin Famotidine 20 mg Q12HR IV 01/07/25 10:00 UNV Diagnostic Test (Pha) 1 strip IQ4HR 01/07/25 08:00 Cancel Calcium Gluconate/ Sodium Chloride 50 ml @ 100 mls/hr Q30M IV 01/08/25 17:30 01/08/25 18:29 Cancel Pantoprazole Sodium 40 mg BID IV 01/10/25 10:00 02/06/25 22:01 40 MG Sodium Chloride 10 ml QSHIFT@10,22 IV 01/24/25 22:00 02/06/25 22:01 10 ML Diagnostic Test (Pha) 1 strip Q4HR 01/26/25 14:00 UNV Amino Acid Protein 30 ml TIDWM PO 01/28/25 18:00 02/06/25 18:12 30 ML Enteral Nutritional Formula 1,000 ml 30ML/HR GT 01/29/25 18:15 02/05/25 06:11 1,000 ML Vancomycin HCl 0 ml @ 0 mls/hr UD IV 01/31/25 14:30 Cancel Ursodiol 300 mg BID NG 02/01/25 22:00 02/06/25 22:01 300 MG Vancomycin HCl 0 ml @ 0 mls/hr UD IV 02/03/25 16:45 Epoetin Paolo-epbx 10,000 unit TUTHSA SC 02/04/25 10:00 02/06/25 09:21 10,000 UNIT Albumin Human 100 ml @ 100 mls/hr PRN PRN IV 02/05/25 06:45 02/05/25 08:00 100 MLS/HR Diagnostic Test (Pha) 1 strip IQ4HR 02/06/25 12:00 02/07/25 08:00 1 STRIP Insulin Human Regular IQ4HR SC 02/06/25 12:00 02/07/25 08:53 10 UNITS Dextrose 50 ml UD PRN IV 02/06/25 10:00 Furosemide 100 mg/ Sodium Chloride 110 ml @ 7.7 mls/hr [id number] IV 02/06/25 14:45 02/07/25 02:27 7.7 MLS/HR Spironolactone 50 mg DAILY PO 02/07/25 10:00 Examination General Appearance: Intubated and sedated. Malnourished, in mild distress. Jaundiced Head Exam: Normal inspection. No vision in right eye, decreased vision in left eye, minimally reactive pupils. Scleral edema Pulmonary/Respiratory: Chest non-tender. decreased bilateral breath sounds, no crackles, no wheezing. Cardiovascular/Chest: Tachycardic. No murmurs. No JVD. Abdominal Exam: Normal bowel sounds. Soft. normal abdomen, no visible veins, nontender No hepatospenomegaly. No masses Lower extremities: 2+ nonpitting lower extremity edema up to the thighs. Left heel pressure ulcer noted. Multiple diabetic foot ulcers on bilateral feet, largest 1 noted on left plantar foot with a dark black necrotic appearance Thoughts/Psych: Normal thought pattern. Appropriate mood and affect Skin Exam: improving groin lesions, redness noted along right gluteal area, scrotal swelling. penile scabs laboratory and microbiology Laboratory Tests 02/07/25 04:30 Test 02/07/25 04:30 Range/Units Serum Glucose 227 H 74-106 mg/dL Microbiology Date/Time Source Procedure Growth Status 01/26/25 08:46 Urine - Jones Port Urine Culture - Final Complete 01/24/25 04:15 Sputum Gram Stain - Final Complete 01/24/25 04:15 Sputum Respiratory Culture - Final Complete 01/23/25 20:30 Pleural Fluid Gram Stain - Final Complete 01/23/25 20:30 Pleural Fluid Body Fluid Culture - Final Complete 01/19/25 16:06 Nose MRSA Screen - Final Complete 01/16/25 19:00 Blood Blood Culture - Final NO GROWTH AFTER 5 DAYS OF INCUBATION. Complete 01/08/25 10:37 Stool Stool Culture - Final Complete 01/08/25 10:37 Stool Shiga Toxin I & II - Final Complete Labs and/or images reviewed: Labs reviewed by me, Image(s) reviewed by me Problem List/Assessment/Plan Problem List/Assessment/Plan Neurology # acute metabolic encephalopathy likely due to DKA vs Sepsis, improving - head CT from 01/07/2025: No acute territorial infarct, intracranial hemorrhage or mass effect - head CT from 01/19/2025: No acute intracranial abnormality - monitor Cardiovascular # runs of AFib on EKG # prolonged QTC # Essential hypertension - avoiding QT prolonging drugs - echocardiogram from 07/20/2022: Overall preserved ventricular systolic function. EF 60%. Grade 1 diastolic dysfunction. - increased amlodipine to 10mg qD - repeat echo: Mild LVH and mild LV diastolic dysfunction. LVEF 65%. Slightly dilated left atrium. Moderately dilated RV and RA. Moderate degree pulmonary hypertension. Normal valves and no effusion. - monitor Respiratory # Community acquired pneumonia, Gram-positive versus Gram-negative # Acute hypoxic respiratory failure due to above, intubated and mechanically ventilated # moderate-large b/l Pleural effusions # moderate pulmonary hypertension with RVSP 46 mmHg - CXR 01/08/25: Bibasilar atelectasis or pneumonia. - CXR 01/20/25: Patchy bilateral airspace disease, [id number], slightly increased - previously on meropenem and vancomycin, stopped on 01/12/2025 - started on aztreonam on 01/17/2025, linezolid 01/16/2025 - discontinued aztreonam and linezolid on 01/20/2025 - started cefepime, vancomycin and metronidazole on 01/20/2025 - discontinued vancomycin 01/23/2025 - started linezolid, however, dc'ed linezolid on d/t thrombocytopenia, resumed vancomycin on 01/31 - s/p thoracentesis with 900 mL of fluid removed on 01/23/2025 GI # Acute intractable abdominal pain (01/21/25), improved # cholestasis of critical illness # Microcytic anemia possibly 2' to ?LGI bleed; Hb 7.8 # Moderate abdominopelvic ascites # Peptic ulcer prophylaxis # gallbladder hydrops # hypokalemia - stool occult blood positive - GI consult - CT abdomen pelvis from 01/07/2025: Nonspecific periportal edema. Incidental finding. -Pantoprazole 40 mg IV daily - serum lipase 113 - repeat CT abdomen pelvis (01/22/25): Moderate to large bilateral pleural effusions with patchy and consolidative infiltrates in the lung bases likely a combination of pneumonia and atelectasis.mLow to moderate volume abdominopelvic ascites and diffuse subcutaneous edema suggestive of anasarca. Moderate right hydronephrosis without visualization of hydroureter or obstructing calculi. This appearance is new versus CT scan dated 01/07/2025. Gallbladder hydrops without visualization of gallstones. This appearance may indicate acalculous cholecystitis. Fluid-filled colon with multiple air-fluid levels present, possibly related to diarrheal illness. No evidence of bowel obstruction, acute appendicitis, or other acute process in the abdomen or pelvis. 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 Moderate right hydronephrosis without visualization of hydroureter or obstructing calculi. This appearance is new versus CT scan dated 01/07/2025. Gallbladder hydrops without visualization of gallstones. This appearance may indicate acalculous cholecystitis. Fluid- filled colon with multiple air-fluid levels present, possibly related to diarrheal illness. No evidence of bowel obstruction, acute appendicitis, or other acute process in the abdomen or pelvis. - urology consulted - reconsulted nephrology - serum parathyroid hormone 185.9, corrected calcium 8.7 - currently running Lasix drip started on 02/04/25 Infectious disease # bilateral lower extremity cellulitis # left lower extremity diabetic foot ulcer on the plantar aspect growing Staph aureus # Sepsis due to above # left heel pressure ulcer # ruled out DVT # Fungal cutaneous infection in b/l groin # candidal balanitis with superimposed necrosis - MRI from 01/09/2025 shows Mild diffuse subcutaneous soft-tissue edema; possibly cellulitis. No bone marrow edema is present to suggest fracture or acute osteomyelitis. - bilateral lower extremity arterial Doppler: No hemodynamically significant stenosis based on peak systolic velocity criteria. - bilateral lower extremity venous Doppler: No right or left femoropopliteal venous thrombosis - discontinued aztreonam and linezolid on 01/20/2025 - started cefepime, vancomycin and metronidazole on 01/20/2025 - podiatry on board - left foot MRI: No MR evidence of osteomyelitis. Cellulitis and lateral 4 for deep of the 5th metatarsal bone were wound is noted overlying dressing. Edema in the intrinsic muscle of the foot may reflect sequelae of denervation, or myositis. - discontinued vancomycin 01/23/2025, started patient on daptomycin on 01/23/2025 - discontinued daptomycin, vancomycin and cefepime on 01/24/2025 - started linezolid on 01/24/2025 - discontinued linezolid on 01/31/2025 owing to dropping platelet count - started IV vancomycin per pharmacy after approval from Nephrology to have the dose timed with dialysis sessions on 01/31/25 - topical nystatin - added IV ceftriaxone 02/07/2025 Hem/onc # microcytic anemia # thrombocytosis likely secondary to sepsis # thrombocytopenia, worsening - s/p 4 PRBC transfusion - GI on board - monitor Endocrine # DKA, now resolved # recurrent episodes of hypoglycemia # severe protein calorie malnutrition # diabetic/starvation ketoacidosis, improved - discontinued lispro - holding insulin Lantus as patient continues to get hypoglycemic - mild sliding scale insulin - Accu-Cheks q4hr Diet Nepro carb steady with ProStat tube feedings Lines - right PICC line paced on 01/24/2025 - right-sided Dean catheter placed on 01/24/2025 - Jones catheter exchanged on 01/26/2025 Drips Lasix at 20 milligrams/hour KCl Transeferred to OXANA 01/23/25 Intubated on 01/06/25 Extubated on 01/12/25 Intubated again on 01/24/25 Extubated on 02/05/2025 critical care time excluding procedures was 56 mins Detailed discussion held with patient's father at bedside, decided to currently leave patient has modified code, to revisit conversation next week. Plan discussed with Dr. Castellano; we decided to add IV ceftriaxone, order peripheral blood smear and continue to monitor H&H. Plan discussed with: Other (RN) My Orders My Orders Orders - ANABELL ORDOÑEZ RESIDENT Procedure Category Date Status Time Rt Upper Dvt US 02/06/25 Resulted 09:25 Glucose Blood PHA 02/06/25 In Process (Accu-Chek Comfort 12:00 Insulin R (Human) PHA 02/06/25 In Process (Insulin R) 12:00 Dextrose 50% Syringe PHA 02/06/25 In Process 10:00 Modified Resuscitive CODE 02/06/25 Transmitted Measures Dietary Evaluation Review Recommendations by RD: Increase Calorie Intake Comments: Nutrition Recommendation: 1) Vital AF 1.2Cal @ 25ml/hr along with Pro-stat 1 pk BID. start @ 20ml/hr, increase 10ml/hr Q4H until goal is reached. TF @ goal volume along with propofol, IV D5wNS0.45%, and Pro-stat provides 1684 kcal (100% energy needs), 75gm protein (100% protein needs), 487ml free water. 2) TPN to meet 75% estimated needs if remains NPO 3) Bryce 1 pk BID for DFU Expected Outcomes/Goals: DFU to improve To maintain/gain weight To meet at least 75% estimated needs Fu 2-3 days Interpretation of weight loss: up to 5% in 1 month Muscle Mass (Severe): Mod to Severe Depletion Protein Calorie Malnutrition: Non-Severe Is there a minimum of two crit: Yes ANABELL ORDOÑEZ RESIDENT Feb 07, 2025 09:14
[2025-02-07] MEDS: SPIRONOLACTONE 25 MG TAB PO SCH (09:22)
--- NOTE | 2025-02-07 11:00 | DVHPN2 ---
Progress Note Date Seen: Feb 07, 2025 Resident Creating Document: MARTI POWELL RESIDENT Medical Necessity Reason Pt with a Central, PICC or Fol: Yes The following are medically ne: Central Line, Jones Catheter Reason for jones catheter: Strict I&O Subjective Review of Systems 02/06-patient is extubated, on room air, A&O x1-not oriented to place, reports that he has at home. Urine output 1700 cc per 24 hours. Phosphate 0.9. BUN/creatinine stable. Hemodialysis today. 02/07 - pt is alert, AxO2, hallucinating, wbc trendig up, Hb down. 1 PRBC ordered. DC IV lasix drip after transfusion and switch to iV BID Objective vital signs Vital Sign Date Time Temp Pulse Resp B/P (MAP) Pulse Ox O2 Delivery O2 Flow Rate FiO2 02/07/25 10:00 109 16 146/70 (95) 98 02/07/25 08:00 Nasal Cannula* 3 32 02/07/25 04:00 98.5 98.5 Total Intake and Output 02/06/25 02/06/25 02/07/25 15:00 23:00 07:00 Intake Total 161.7 ml 821.35 ml 482.9 ml Output Total 700 ml 925 ml Balance 161.7 ml 121.35 ml -442.1 ml medications Current Medications Medications Dose Ordered Sig/Zaria Route Start Time Stop Time Status Last Admin Dose Admin Famotidine 20 mg Q12HR IV 01/07/25 10:00 UNV Diagnostic Test (Pha) 1 strip IQ4HR 01/07/25 08:00 Cancel Calcium Gluconate/ Sodium Chloride 50 ml @ 100 mls/hr Q30M IV 01/08/25 17:30 01/08/25 18:29 Cancel Pantoprazole Sodium 40 mg BID IV 01/10/25 10:00 02/07/25 09:20 40 MG Sodium Chloride 10 ml QSHIFT@10,22 IV 01/24/25 22:00 02/07/25 09:20 10 ML Diagnostic Test (Pha) 1 strip Q4HR 01/26/25 14:00 UNV Amino Acid Protein 30 ml TIDWM PO 01/28/25 18:00 02/06/25 18:12 30 ML Enteral Nutritional Formula 1,000 ml 30ML/HR GT 01/29/25 18:15 02/05/25 06:11 1,000 ML Vancomycin HCl 0 ml @ 0 mls/hr UD IV 01/31/25 14:30 Cancel Ursodiol 300 mg BID NG 02/01/25 22:00 02/07/25 09:20 300 MG Vancomycin HCl 0 ml @ 0 mls/hr UD IV 02/03/25 16:45 Epoetin Paolo-epbx 10,000 unit TUTHSA SC 02/04/25 10:00 02/06/25 09:21 10,000 UNIT Albumin Human 100 ml @ 100 mls/hr PRN PRN IV 02/05/25 06:45 02/05/25 08:00 100 MLS/HR Diagnostic Test (Pha) 1 strip IQ4HR 02/06/25 12:00 02/07/25 08:00 1 STRIP Insulin Human Regular IQ4HR SC 02/06/25 12:00 02/07/25 08:53 10 UNITS Dextrose 50 ml UD PRN IV 02/06/25 10:00 Furosemide 100 mg/ Sodium Chloride 110 ml @ 7.7 mls/hr [id number] IV 02/06/25 14:45 02/07/25 02:27 7.7 MLS/HR Spironolactone 50 mg DAILY PO 02/07/25 10:00 02/07/25 09:22 50 MG Examination Patient lying in bed, status post extubation, on room air General: Sclerae icterus, malnourished, mucosae are moist Cardiovascular: Tachycardic but Regular S1 and S2. No murmurs, gallops or rubs. No JVD elevation. Trace resolving pedal edema Respiratory: Decreased bilateral breath sounds, no wheezing or crackles heard. Abdomen: Soft, nontender, nondistended, normoactive bowel sounds, no rebound tenderness, no organomegaly, no masses Genitourinary: Jones seen MSK/skin: Mobilizes 4 limbs. Skin is dry and warm Neurological: No motor, no sensitive deficits, normal speech. Pupils are isocoric and reactive. Psych/Mental Status: Hallucinating but alert, following commands, A&O x2 laboratory and microbiology Laboratory Tests 02/07/25 04:30 Test 02/07/25 04:30 Range/Units Serum Glucose 227 H 74-106 mg/dL Microbiology Date/Time Source Procedure Growth Status 01/26/25 08:46 Urine - Jones Port Urine Culture - Final Complete 01/24/25 04:15 Sputum Gram Stain - Final Complete 01/24/25 04:15 Sputum Respiratory Culture - Final Complete 01/23/25 20:30 Pleural Fluid Gram Stain - Final Complete 01/23/25 20:30 Pleural Fluid Body Fluid Culture - Final Complete 01/19/25 16:06 Nose MRSA Screen - Final Complete 01/16/25 19:00 Blood Blood Culture - Final NO GROWTH AFTER 5 DAYS OF INCUBATION. Complete 01/08/25 10:37 Stool Stool Culture - Final Complete 01/08/25 10:37 Stool Shiga Toxin I & II - Final Complete Labs and/or images reviewed: Labs reviewed by me, Image(s) reviewed by me Problem List/Assessment/Plan Problem List/Assessment/Plan Acute kidney injury superimposed Chronic Kidney Disease stage IIIB secondary hemodynamic mediated ATN, FeNa > 2% - needing dialysis Acute hypoxic respiratory failure, patient extubated and then reintubated Hypokalemia Anemia of chronic kidney disease DKA-resolved Uncontrolled diabetes mellitus Anasarca elevated bilirubin, ALK phos thrombocytopenia Plan: BUN/creatinine stable, urine output stable, holding off HD at this time. DC Lasix drip after transfusion, switch to lasix 40 IV BID Phos and Mag repleted Recommend broaden IV antibiotics and pancutures F/U with ammonia levels Started Spironolactone 50mg daily no heparin Epogen 3x a week Avoid hypotension poor overall prognosis Plan discussed with patient in which all questions have been answered Case discussed with Dr. Mandel Plan discussed with: Patient, Other (nurse) My Orders My Orders Orders - MARTI POWELL RESIDENT Procedure Category Date Status Time Haptoglobin LAB 02/07/25 In Process 08:45 Dietary Evaluation Review Recommendations by RD: Increase Calorie Intake Comments: Nutrition Recommendation: 1) Vital AF 1.2Cal @ 25ml/hr along with Pro-stat 1 pk BID. start @ 20ml/hr, increase 10ml/hr Q4H until goal is reached. TF @ goal volume along with propofol, IV D5wNS0.45%, and Pro-stat provides 1684 kcal (100% energy needs), 75gm protein (100% protein needs), 487ml free water. 2) TPN to meet 75% estimated needs if remains NPO 3) Rbyce 1 pk BID for DFU Expected Outcomes/Goals: DFU to improve To maintain/gain weight To meet at least 75% estimated needs Fu 2-3 days Interpretation of weight loss: up to 5% in 1 month Muscle Mass (Severe): Mod to Severe Depletion Protein Calorie Malnutrition: Non-Severe Is there a minimum of two crit: Yes MARTI POWELL RESIDENT Feb 07, 2025 11:00
--- NOTE | 2025-02-07 11:52 | DVHPN2 ---
Progress Note Date Seen: Feb 07, 2025 Medical Necessity Reason Pt with a Central, PICC or Fol: Yes The following are medically ne: Central Line, Jones Catheter Reason for jones catheter: Strict I&O Objective vital signs Vital Sign Date Time Temp Pulse Resp B/P (MAP) Pulse Ox O2 Delivery O2 Flow Rate FiO2 02/07/25 10:00 109 16 146/70 (95) 98 02/07/25 08:00 Nasal Cannula* 3 32 02/07/25 04:00 98.5 98.5 Total Intake and Output 02/06/25 02/06/25 02/07/25 15:00 23:00 07:00 Intake Total 161.7 ml 821.35 ml 482.9 ml Output Total 700 ml 925 ml Balance 161.7 ml 121.35 ml -442.1 ml medications Current Medications Medications Dose Ordered Sig/Zaria Route Start Time Stop Time Status Last Admin Dose Admin Famotidine 20 mg Q12HR IV 01/07/25 10:00 UNV Diagnostic Test (Pha) 1 strip IQ4HR 01/07/25 08:00 Cancel Calcium Gluconate/ Sodium Chloride 50 ml @ 100 mls/hr Q30M IV 01/08/25 17:30 01/08/25 18:29 Cancel Pantoprazole Sodium 40 mg BID IV 01/10/25 10:00 02/07/25 09:20 40 MG Sodium Chloride 10 ml QSHIFT@10,22 IV 01/24/25 22:00 02/07/25 09:20 10 ML Diagnostic Test (Pha) 1 strip Q4HR 01/26/25 14:00 UNV Amino Acid Protein 30 ml TIDWM PO 01/28/25 18:00 02/06/25 18:12 30 ML Enteral Nutritional Formula 1,000 ml 30ML/HR GT 01/29/25 18:15 02/05/25 06:11 1,000 ML Vancomycin HCl 0 ml @ 0 mls/hr UD IV 01/31/25 14:30 Cancel Ursodiol 300 mg BID NG 02/01/25 22:00 02/07/25 09:20 300 MG Vancomycin HCl 0 ml @ 0 mls/hr UD IV 02/03/25 16:45 Epoetin Paolo-epbx 10,000 unit TUTHSA SC 02/04/25 10:00 02/06/25 09:21 10,000 UNIT Albumin Human 100 ml @ 100 mls/hr PRN PRN IV 02/05/25 06:45 02/05/25 08:00 100 MLS/HR Diagnostic Test (Pha) 1 strip IQ4HR 02/06/25 12:00 02/07/25 08:00 1 STRIP Insulin Human Regular IQ4HR SC 02/06/25 12:00 02/07/25 08:53 10 UNITS Dextrose 50 ml UD PRN IV 02/06/25 10:00 Furosemide 100 mg/ Sodium Chloride 110 ml @ 7.7 mls/hr [id number] IV 02/06/25 14:45 02/07/25 02:27 7.7 MLS/HR Spironolactone 50 mg DAILY PO 02/07/25 10:00 02/07/25 09:22 50 MG Furosemide 40 mg BIDD IV 02/07/25 18:00 UNV Examination: GENERAL:Abnormal, ABDOMEN:Abnormal, SKIN:Abnormal, NEURO:Abnormal, :Abnormal laboratory and microbiology Laboratory Tests 02/07/25 04:30 Test 02/07/25 04:30 Range/Units Serum Glucose 227 H 74-106 mg/dL Microbiology Date/Time Source Procedure Growth Status 01/26/25 08:46 Urine - Jones Port Urine Culture - Final Complete 01/24/25 04:15 Sputum Gram Stain - Final Complete 01/24/25 04:15 Sputum Respiratory Culture - Final Complete 01/23/25 20:30 Pleural Fluid Gram Stain - Final Complete 01/23/25 20:30 Pleural Fluid Body Fluid Culture - Final Complete 01/19/25 16:06 Nose MRSA Screen - Final Complete 01/16/25 19:00 Blood Blood Culture - Final NO GROWTH AFTER 5 DAYS OF INCUBATION. Complete 01/08/25 10:37 Stool Stool Culture - Final Complete 01/08/25 10:37 Stool Shiga Toxin I & II - Final Complete Problem List/Assessment/Plan Problem List/Assessment/Plan Acute kidney injury superimposed Chronic Kidney Disease stage IIIB secondary hemodynamic mediated ATN, FeNa > 2% - needing dialysis Acute hypoxic respiratory failure, patient extubated and then reintubated ---> extubated 02/05/25 Hypokalemia Anemia of chronic kidney disease Anasarca elevated bilirubin, ALK phos thrombocytopenia severe protein calorie malnutrition HD cancelled given labs AND ADEQUATE UOP convert lasix IVP PRBC today replace potassium and phos , aldactone po tube feeding and monitor residuals no heparin Epogen 3x a week Avoid hypotension poor overall prognosis Plan discussed with: Patient My Orders My Orders Orders - MIKO PALOMINO MD Procedure Category Date Status Time Sodium Chl 0.9% PHA 02/06/25 In Process (So... W/Furosemide 14:45 Spironolactone PHA 02/07/25 In Process (Aldactone) 10:00 Dietary Evaluation Review Recommendations by RD: Increase Calorie Intake Comments: Nutrition Recommendation: 1) Vital AF 1.2Cal @ 25ml/hr along with Pro-stat 1 pk BID. start @ 20ml/hr, increase 10ml/hr Q4H until goal is reached. TF @ goal volume along with propofol, IV D5wNS0.45%, and Pro-stat provides 1684 kcal (100% energy needs), 75gm protein (100% protein needs), 487ml free water. 2) TPN to meet 75% estimated needs if remains NPO 3) Bryce 1 pk BID for DFU Expected Outcomes/Goals: DFU to improve To maintain/gain weight To meet at least 75% estimated needs Fu 2-3 days Interpretation of weight loss: up to 5% in 1 month Muscle Mass (Severe): Mod to Severe Depletion Protein Calorie Malnutrition: Non-Severe Is there a minimum of two crit: Yes Critical Care Time (mins): 35 MIKO PALOMINO MD Feb 07, 2025 11:52
[2025-02-07] MEDS ORDERED: cefTRIAXone 1GM/50ML D5W 50 ML IV ONE (15:00)
--- NOTE | 2025-02-07 15:04 | DVHPN2 ---
Progress Note - Dictate Date Seen: Feb 07, 2025 Medical Necessity Reason Pt with a Central, PICC or Fol: Yes The following are medically ne: Central Line, Jones Catheter Reason for jones catheter: Strict I&O Subjective No new complaints Patient is extubated He is sleeping comfortably He is still on enteral tube feedings at 30 mL of per hour with minimal residuals Moderate persistent elevation in liver enzymes Patient did pull out his NG tube today Hemoglobin dropped down to 6.5 today but no overt signs of bleeding vital signs Vital Sign Date Time Temp Pulse Resp B/P (MAP) Pulse Ox O2 Delivery O2 Flow Rate FiO2 02/07/25 14:30 98.4 102 14 148/73 98.4 02/07/25 14:00 97 Room Air* 0 21 Total Intake and Output 02/06/25 02/06/25 02/07/25 15:00 23:00 07:00 Intake Total 161.7 ml 821.35 ml 482.9 ml Output Total 700 ml 925 ml Balance 161.7 ml 121.35 ml -442.1 ml medications Current Medications Medications Dose Ordered Sig/Zaria Route Start Time Stop Time Status Last Admin Dose Admin Famotidine 20 mg Q12HR IV 01/07/25 10:00 UNV Diagnostic Test (Pha) 1 strip IQ4HR 01/07/25 08:00 Cancel Calcium Gluconate/ Sodium Chloride 50 ml @ 100 mls/hr Q30M IV 01/08/25 17:30 01/08/25 18:29 Cancel Pantoprazole Sodium 40 mg BID IV 01/10/25 10:00 02/07/25 09:20 40 MG Sodium Chloride 10 ml QSHIFT@10,22 IV 01/24/25 22:00 02/07/25 09:20 10 ML Diagnostic Test (Pha) 1 strip Q4HR 01/26/25 14:00 UNV Amino Acid Protein 30 ml TIDWM PO 01/28/25 18:00 02/06/25 18:12 30 ML Enteral Nutritional Formula 1,000 ml 30ML/HR GT 01/29/25 18:15 02/05/25 06:11 1,000 ML Vancomycin HCl 0 ml @ 0 mls/hr UD IV 01/31/25 14:30 Cancel Ursodiol 300 mg BID NG 02/01/25 22:00 02/07/25 09:20 300 MG Vancomycin HCl 0 ml @ 0 mls/hr UD IV 02/03/25 16:45 Epoetin Paolo-epbx 10,000 unit TUTHSA SC 02/04/25 10:00 02/06/25 09:21 10,000 UNIT Albumin Human 100 ml @ 100 mls/hr PRN PRN IV 02/05/25 06:45 02/05/25 08:00 100 MLS/HR Diagnostic Test (Pha) 1 strip IQ4HR 02/06/25 12:00 02/07/25 11:59 1 STRIP Insulin Human Regular IQ4HR SC 02/06/25 12:00 02/07/25 12:30 3 UNITS Dextrose 50 ml UD PRN IV 02/06/25 10:00 Furosemide 100 mg/ Sodium Chloride 110 ml @ 7.7 mls/hr [id number] IV 02/06/25 14:45 Hold 02/07/25 02:27 7.7 MLS/HR Spironolactone 50 mg DAILY PO 02/07/25 10:00 02/07/25 09:22 50 MG Furosemide 40 mg BIDD IV 02/07/25 18:00 objective Intubated sedated hemodynamically stable Mild Abdominal distention no masses Generalized anasarca and scrotal swelling laboratory and microbiology Laboratory Tests 02/07/25 04:30 Test 02/07/25 04:30 Range/Units Serum Glucose 227 H 74-106 mg/dL Problems(with codes): (1) Elevated AFP (2) Fluid overload (3) Gallstones (4) Gallbladder hydrops (5) History of diabetic ketoacidosis (6) Cannabinoid hyperemesis syndrome (7) Inadequate oral intake (8) Hydronephrosis, right (9) Intractable vomiting (10) Diabetic keto-acidosis (11) Coffee ground emesis Prognosis Plan Transfusing 1 unit PRBC Protonix 40 mg IV q 12 hrs When the patient is more awake we will consider swallow evaluation Start diet when the patient is able to swallow Consider MRCP when the patient is stable enough to undergo an MRCP procedure Continue to monitor liver enzymes, patient likely has cholelithiasis rule out any CBD stone Dietary Evaluation Review Recommendations by RD: Increase Calorie Intake Comments: Nutrition Recommendation: 1) Vital AF 1.2Cal @ 25ml/hr along with Pro-stat 1 pk BID. start @ 20ml/hr, increase 10ml/hr Q4H until goal is reached. TF @ goal volume along with propofol, IV D5wNS0.45%, and Pro-stat provides 1684 kcal (100% energy needs), 75gm protein (100% protein needs), 487ml free water. 2) TPN to meet 75% estimated needs if remains NPO 3) Bryce 1 pk BID for DFU Expected Outcomes/Goals: DFU to improve To maintain/gain weight To meet at least 75% estimated needs Fu 2-3 days Interpretation of weight loss: up to 5% in 1 month Muscle Mass (Severe): Mod to Severe Depletion Protein Calorie Malnutrition: Non-Severe Is there a minimum of two crit: Yes Plan discussed with: Other ([facility] Nurse) LETTY GENTILE MD Feb 07, 2025 15:04
[2025-02-07] MEDS: VANCOMYCIN 500mg/100mL 100 ML IV ONE (16:58)
[2025-02-07] MEDS: FUROSEMIDE 40 MG/4 ML VIAL IV SCH (17:05)
[2025-02-07] MEDS: CEFEPIME 1GM/ 50ML 50 ML IV ONE (17:45)
[2025-02-07 20:54] LABS: Hematocrit 25.2 % (41.0-53.0); Hemoglobin 7.8 g/dL (13.5-17.5)
[2025-02-08] VITALS (28 sets, daily range): BP systolic 132–166; BP diastolic 64–86; PULSE 93–110; RESP 12–22; TEMP 98–99; O2SAT 93–100
[2025-02-08] MEDS: hydrALAZINE HCL 20 MG/ML VL IV PRN (04:54)
[2025-02-08 06:06] LABS: Hematocrit 25.7 % (41.0-53.0); Hemoglobin 8.3 g/dL (13.5-17.5); Mean Corpuscular Hemoglobin 26.9 pg (28.0-32.0); Mean Corpuscular Volume 83.3 fL (80.0-100.0)
[2025-02-08 06:21] LABS: Alanine Aminotransferase < 9 U/L (7-40); Albumin 2.8 g/dL (3.2-4.8); Anion Gap 13 (5-15); BUN/Creatinine Ratio 15.2 (10.0-20.0); Blood Urea Nitrogen 30 mg/dL (9-23); Calcium 8.0 mg/dL (8.7-10.4); Carbon Dioxide 25 mmol/L (20-31); Chloride 106 mmol/L (98-107); Glucose 151 mg/dL (74-106); Potassium 3.5 mmol/L (3.5-5.1); Sodium 144 mmol/L (136-145); Total Protein 5.5 g/dL (5.7-8.2)
[2025-02-08 06:28] LABS: Alkaline Phosphatase 2157 U/L (46-116); Bilirubin, Total 2.7 mg/dL (0.2-1.0)
[2025-02-08 06:52] LABS: Total Cells Counted 100.0 (100)
[2025-02-08] MEDS: MORPHINE SULFATE INJ 2 MG/ml SYRG IV ONE (08:35)
[2025-02-08] MEDS ORDERED: cefTRIAXone 1GM/50ML D5W 50 ML IV SCH (09:00)
[2025-02-08] MEDS ORDERED: guaiFENesin-DM 100/10mg/5ml SYR PO PRN (12:00)
--- NOTE | 2025-02-08 12:09 | DVHPN2 ---
Progress Note Date Seen: Feb 08, 2025 Medical Necessity Reason Pt with a Central, PICC or Fol: Yes The following are medically ne: Central Line, Jones Catheter Reason for jones catheter: Strict I&O Subjective Patient reports: No new complaints Objective vital signs Vital Sign Date Time Temp Pulse Resp B/P (MAP) Pulse Ox O2 Delivery O2 Flow Rate FiO2 02/08/25 11:00 99 12 153/78 (103) 100 02/08/25 10:00 Nasal Cannula* 2 28 02/08/25 08:00 98.1 98.1 Total Intake and Output 02/07/25 02/07/25 02/08/25 15:00 23:00 07:00 Intake Total 646.2 ml 600 ml 0 ml Output Total 1600 ml 700 ml Balance 646.2 ml -1000 ml -700 ml medications Current Medications Medications Dose Ordered Sig/Zaria Route Start Time Stop Time Status Last Admin Dose Admin Famotidine 20 mg Q12HR IV 01/07/25 10:00 UNV Diagnostic Test (Pha) 1 strip IQ4HR 01/07/25 08:00 Cancel Calcium Gluconate/ Sodium Chloride 50 ml @ 100 mls/hr Q30M IV 01/08/25 17:30 01/08/25 18:29 Cancel Pantoprazole Sodium 40 mg BID IV 01/10/25 10:00 02/08/25 11:18 40 MG Sodium Chloride 10 ml QSHIFT@10,22 IV 01/24/25 22:00 02/08/25 11:11 10 ML Diagnostic Test (Pha) 1 strip Q4HR 01/26/25 14:00 UNV Amino Acid Protein 30 ml TIDWM PO 01/28/25 18:00 02/06/25 18:12 30 ML Enteral Nutritional Formula 1,000 ml 30ML/HR GT 01/29/25 18:15 02/05/25 06:11 1,000 ML Vancomycin HCl 0 ml @ 0 mls/hr UD IV 01/31/25 14:30 Cancel Ursodiol 300 mg BID NG 02/01/25 22:00 02/07/25 09:20 300 MG Vancomycin HCl 0 ml @ 0 mls/hr UD IV 02/03/25 16:45 Epoetin Paolo-epbx 10,000 unit TUTHSA SC 02/04/25 10:00 02/08/25 11:18 10,000 UNIT Albumin Human 100 ml @ 100 mls/hr PRN PRN IV 02/05/25 06:45 02/05/25 08:00 100 MLS/HR Diagnostic Test (Pha) 1 strip IQ4HR 02/06/25 12:00 02/08/25 07:55 1 STRIP Insulin Human Regular IQ4HR SC 02/06/25 12:00 02/08/25 07:57 4 UNITS Dextrose 50 ml UD PRN IV 02/06/25 10:00 Spironolactone 50 mg DAILY PO 02/07/25 10:00 02/07/25 09:22 50 MG Levofloxacin/ Dextrose 100 ml @ 100 mls/hr Q48H IV 02/07/25 15:45 UNV Cefepime HCl 50 ml @ 50 mls/hr Q24H IV 02/08/25 17:00 Hydralazine HCl 10 mg Q6HP PRN IV 02/08/25 04:45 02/08/25 04:54 10 MG Guaifenesin/ Dextromethorphan 10 ml Q6HP PRN PO 02/08/25 12:00 UNV Morphine Sulfate 2 mg Q2HPRN PRN IV 02/08/25 12:00 UNV Furosemide 40 mg DAILY IV 02/09/25 10:00 UNV Examination: GENERAL:Abnormal, LUNGS:Abnormal, CVS:Abnormal, SKIN:Abnormal laboratory and microbiology Laboratory Tests 02/08/25 05:40 Test 02/08/25 05:40 Range/Units Serum Glucose 151 H 74-106 mg/dL Microbiology Date/Time Source Procedure Growth Status 01/26/25 08:46 Urine - Jones Port Urine Culture - Final Complete 01/24/25 04:15 Sputum Gram Stain - Final Complete 01/24/25 04:15 Sputum Respiratory Culture - Final Complete 01/23/25 20:30 Pleural Fluid Gram Stain - Final Complete 01/23/25 20:30 Pleural Fluid Body Fluid Culture - Final Complete 01/19/25 16:06 Nose MRSA Screen - Final Complete 01/16/25 19:00 Blood Blood Culture - Final NO GROWTH AFTER 5 DAYS OF INCUBATION. Complete 01/08/25 10:37 Stool Stool Culture - Final Complete 01/08/25 10:37 Stool Shiga Toxin I & II - Final Complete Problem List/Assessment/Plan Problem List/Assessment/Plan Acute kidney injury superimposed Chronic Kidney Disease stage IIIB secondary hemodynamic mediated ATN, FeNa > 2% - needing dialysis Acute hypoxic respiratory failure, patient extubated and then reintubated ---> extubated 02/05/25 Hypokalemia Anemia of chronic kidney disease Anasarca elevated bilirubin, ALK phos thrombocytopenia severe protein calorie malnutrition 48 hours since last HD no HD today will monitor to monitor labs and UOP reduce lasix to once a day albumin and NS x1 today replace potassium and phos , aldactone po tube feeding and monitor residuals no heparin Epogen 3x a week Avoid hypotension poor overall prognosis Plan discussed with: Other My Orders My Orders Orders - MIKO PALOMINO MD Procedure Category Date Status Time Basic Metabolic Panel LAB 02/09/25 Verified 04:00 Furosemide Injection PHA 02/09/25 Logged (Lasix Injection) 10:00 NS PHA 02/08/25 Verified 12:15 Dietary Evaluation Review Recommendations by RD: Increase Calorie Intake Comments: Nutrition Recommendation: 1) Vital AF 1.2Cal @ 25ml/hr along with Pro-stat 1 pk BID. start @ 20ml/hr, increase 10ml/hr Q4H until goal is reached. TF @ goal volume along with propofol, IV D5wNS0.45%, and Pro-stat provides 1684 kcal (100% energy needs), 75gm protein (100% protein needs), 487ml free water. 2) TPN to meet 75% estimated needs if remains NPO 3) Bryce 1 pk BID for DFU Expected Outcomes/Goals: DFU to improve To maintain/gain weight To meet at least 75% estimated needs Fu 2-3 days Interpretation of weight loss: up to 5% in 1 month Muscle Mass (Severe): Mod to Severe Depletion Protein Calorie Malnutrition: Non-Severe Is there a minimum of two crit: Yes MIKO PALOMINO MD Feb 08, 2025 12:09
[2025-02-08] MEDS: ALBUMIN 25% 100 ML IV ONE (12:31)
[2025-02-08] MEDS: MORPHINE SULFATE INJ 2 MG/ml SYRG IV PRN (12:48)
[2025-02-08] MEDS: SODIUM CHLORIDE 0.9% 500 ML IV ONE (14:12)
--- NOTE | 2025-02-08 14:40 | DVHPN2 ---
Progress Note - Dictate Date Seen: Feb 08, 2025 Medical Necessity Reason Pt with a Central, PICC or Fol: Yes The following are medically ne: Central Line, Jones Catheter Reason for jones catheter: Strict I&O vital signs Vital Sign Date Time Temp Pulse Resp B/P (MAP) Pulse Ox O2 Delivery O2 Flow Rate FiO2 02/08/25 13:18 104 17 157/84 02/08/25 12:00 98.7 96 98.7 02/08/25 10:00 Nasal Cannula* 2 28 Total Intake and Output 02/07/25 02/07/25 02/08/25 15:00 23:00 07:00 Intake Total 646.2 ml 600 ml 0 ml Output Total 1600 ml 700 ml Balance 646.2 ml -1000 ml -700 ml medications Current Medications Medications Dose Ordered Sig/Zaria Route Start Time Stop Time Status Last Admin Dose Admin Famotidine 20 mg Q12HR IV 01/07/25 10:00 UNV Diagnostic Test (Pha) 1 strip IQ4HR 01/07/25 08:00 Cancel Calcium Gluconate/ Sodium Chloride 50 ml @ 100 mls/hr Q30M IV 01/08/25 17:30 01/08/25 18:29 Cancel Pantoprazole Sodium 40 mg BID IV 01/10/25 10:00 02/08/25 11:18 40 MG Sodium Chloride 10 ml QSHIFT@10,22 IV 01/24/25 22:00 02/08/25 11:11 10 ML Diagnostic Test (Pha) 1 strip Q4HR 01/26/25 14:00 UNV Amino Acid Protein 30 ml TIDWM PO 01/28/25 18:00 02/06/25 18:12 30 ML Enteral Nutritional Formula 1,000 ml 30ML/HR GT 01/29/25 18:15 02/05/25 06:11 1,000 ML Vancomycin HCl 0 ml @ 0 mls/hr UD IV 01/31/25 14:30 Cancel Ursodiol 300 mg BID NG 02/01/25 22:00 02/07/25 09:20 300 MG Vancomycin HCl 0 ml @ 0 mls/hr UD IV 02/03/25 16:45 Epoetin Paolo-epbx 10,000 unit TUTHSA SC 02/04/25 10:00 02/08/25 11:18 10,000 UNIT Albumin Human 100 ml @ 100 mls/hr PRN PRN IV 02/05/25 06:45 02/05/25 08:00 100 MLS/HR Diagnostic Test (Pha) 1 strip IQ4HR 02/06/25 12:00 02/08/25 12:27 1 STRIP Insulin Human Regular IQ4HR SC 02/06/25 12:00 02/08/25 12:59 2 UNITS Dextrose 50 ml UD PRN IV 02/06/25 10:00 Spironolactone 50 mg DAILY PO 02/07/25 10:00 02/07/25 09:22 50 MG Levofloxacin/ Dextrose 100 ml @ 100 mls/hr Q48H IV 02/07/25 15:45 UNV Cefepime HCl 50 ml @ 50 mls/hr Q24H IV 02/08/25 17:00 Hydralazine HCl 10 mg Q6HP PRN IV 02/08/25 04:45 02/08/25 04:54 10 MG Guaifenesin/ Dextromethorphan 10 ml Q6HP PRN PO 02/08/25 12:00 Morphine Sulfate 2 mg Q2HPRN PRN IV 02/08/25 12:00 02/08/25 12:48 2 MG Furosemide 40 mg DAILY IV 02/09/25 10:00 laboratory and microbiology Laboratory Tests 02/08/25 05:40 Test 02/08/25 05:40 Range/Units Serum Glucose 151 H 74-106 mg/dL Assessment/Plan Impression Acute hypoxemic respiratory failure Pneumonia Anemia DKA Patient seen and examined in OXANA Events S/p extubation x2 Low oxygen requirements On 2 liters nasal cannula No acute events Labs and imaging reviewed ABG reviewed Management Supplemental oxygen Titrate to maintain sats 90% or above Incentive spirometry Aspiration precautions Continue antibiotics F/u cultures Bronchodilators Monitor renal function Monitor electrolytes Supplement as needed Okay to downgrade from pulmonary standpoint DVT prophylaxis Critical care time 35 minutes Dietary Evaluation Review Recommendations by RD: Increase Calorie Intake Comments: Nutrition Recommendation: 1) Vital AF 1.2Cal @ 25ml/hr along with Pro-stat 1 pk BID. start @ 20ml/hr, increase 10ml/hr Q4H until goal is reached. TF @ goal volume along with propofol, IV D5wNS0.45%, and Pro-stat provides 1684 kcal (100% energy needs), 75gm protein (100% protein needs), 487ml free water. 2) TPN to meet 75% estimated needs if remains NPO 3) Bryce 1 pk BID for DFU Expected Outcomes/Goals: DFU to improve To maintain/gain weight To meet at least 75% estimated needs Fu 2-3 days Interpretation of weight loss: up to 5% in 1 month Muscle Mass (Severe): Mod to Severe Depletion Protein Calorie Malnutrition: Non-Severe Is there a minimum of two crit: Yes Plan discussed with: Patient PAM LEHMAN MD Feb 08, 2025 14:40
--- NOTE | 2025-02-08 15:34 | DVHPN2 ---
Progress Note - Dictate Date Seen: Feb 08, 2025 Medical Necessity Reason Pt with a Central, PICC or Fol: Yes The following are medically ne: Central Line, Jones Catheter Reason for jones catheter: Strict I&O Subjective Patient is resting comfortably on 2 L nasal cannula He pulled out his NG tube yesterday; I instructed the nurse to try clear liquid diet which she did and the patient was able to tolerate clear liquids Patient's diet has been advanced to full liquid today which she is tolerating Liver enzymes are trending down including his alkaline phosphatase Hemoglobin is up to 8.3 S/P transfusion yesterday Patient has received 4 units PRBC during this hospitalization vital signs Vital Sign Date Time Temp Pulse Resp B/P (MAP) Pulse Ox O2 Delivery O2 Flow Rate FiO2 02/08/25 15:00 99 13 159/79 (105) 100 02/08/25 14:00 Nasal Cannula* 2 28 02/08/25 12:00 98.7 98.7 Total Intake and Output 02/07/25 02/07/25 02/08/25 15:00 23:00 07:00 Intake Total 646.2 ml 600 ml 0 ml Output Total 1600 ml 700 ml Balance 646.2 ml -1000 ml -700 ml medications Current Medications Medications Dose Ordered Sig/Zaria Route Start Time Stop Time Status Last Admin Dose Admin Famotidine 20 mg Q12HR IV 01/07/25 10:00 UNV Diagnostic Test (Pha) 1 strip IQ4HR 01/07/25 08:00 Cancel Calcium Gluconate/ Sodium Chloride 50 ml @ 100 mls/hr Q30M IV 01/08/25 17:30 01/08/25 18:29 Cancel Pantoprazole Sodium 40 mg BID IV 01/10/25 10:00 02/08/25 11:18 40 MG Sodium Chloride 10 ml QSHIFT@10,22 IV 01/24/25 22:00 02/08/25 11:11 10 ML Diagnostic Test (Pha) 1 strip Q4HR 01/26/25 14:00 UNV Amino Acid Protein 30 ml TIDWM PO 01/28/25 18:00 02/06/25 18:12 30 ML Enteral Nutritional Formula 1,000 ml 30ML/HR GT 01/29/25 18:15 02/05/25 06:11 1,000 ML Vancomycin HCl 0 ml @ 0 mls/hr UD IV 01/31/25 14:30 Cancel Ursodiol 300 mg BID NG 02/01/25 22:00 02/07/25 09:20 300 MG Vancomycin HCl 0 ml @ 0 mls/hr UD IV 02/03/25 16:45 Epoetin Paolo-epbx 10,000 unit TUTHSA SC 02/04/25 10:00 02/08/25 11:18 10,000 UNIT Albumin Human 100 ml @ 100 mls/hr PRN PRN IV 02/05/25 06:45 02/05/25 08:00 100 MLS/HR Diagnostic Test (Pha) 1 strip IQ4HR 02/06/25 12:00 02/08/25 12:27 1 STRIP Insulin Human Regular IQ4HR SC 02/06/25 12:00 02/08/25 12:59 2 UNITS Dextrose 50 ml UD PRN IV 02/06/25 10:00 Spironolactone 50 mg DAILY PO 02/07/25 10:00 02/07/25 09:22 50 MG Levofloxacin/ Dextrose 100 ml @ 100 mls/hr Q48H IV 02/07/25 15:45 UNV Cefepime HCl 50 ml @ 50 mls/hr Q24H IV 02/08/25 17:00 Hydralazine HCl 10 mg Q6HP PRN IV 02/08/25 04:45 02/08/25 04:54 10 MG Guaifenesin/ Dextromethorphan 10 ml Q6HP PRN PO 02/08/25 12:00 Morphine Sulfate 2 mg Q2HPRN PRN IV 02/08/25 12:00 02/08/25 12:48 2 MG Furosemide 40 mg DAILY IV 02/09/25 10:00 objective Intubated sedated hemodynamically stable Mild Abdominal distention no masses Generalized anasarca and scrotal swelling laboratory and microbiology Laboratory Tests 02/08/25 05:40 Test 02/08/25 05:40 Range/Units Serum Glucose 151 H 74-106 mg/dL Problems(with codes): (1) Elevated AFP (2) Fluid overload (3) Gallbladder hydrops (4) History of diabetic ketoacidosis (5) Cannabinoid hyperemesis syndrome (6) Coffee ground emesis (7) Diabetic keto-acidosis (8) Vomiting (9) Non-ketotic hyperosmolar coma (10) Erosive esophagitis (11) Hiatal hernia Prognosis Plan Advance to pureed diet if tolerated Protonix 40 mg IV q.12 hours Continue to monitor lab tests and supportive care Overall patient is clinically improving Dietary Evaluation Review Recommendations by RD: Increase Calorie Intake Comments: Nutrition Recommendation: 1) Vital AF 1.2Cal @ 25ml/hr along with Pro-stat 1 pk BID. start @ 20ml/hr, increase 10ml/hr Q4H until goal is reached. TF @ goal volume along with propofol, IV D5wNS0.45%, and Pro-stat provides 1684 kcal (100% energy needs), 75gm protein (100% protein needs), 487ml free water. 2) TPN to meet 75% estimated needs if remains NPO 3) Bryce 1 pk BID for DFU Expected Outcomes/Goals: DFU to improve To maintain/gain weight To meet at least 75% estimated needs Fu 2-3 days Interpretation of weight loss: up to 5% in 1 month Muscle Mass (Severe): Mod to Severe Depletion Protein Calorie Malnutrition: Non-Severe Is there a minimum of two crit: Yes Plan discussed with: Other ([facility] Nurse) LETTY GENTILE MD Feb 08, 2025 15:33
--- NOTE | 2025-02-08 15:36 | DVHPN2 ---
Subjective in bed resting Reviewed: Care Plan, H&P, Labs, Medications, Previous Orders, Radiology Changes from previous H/P or p: No Changes General: Per HPI Eyes: No Pain, No Vision change, No Conjunctivae inflammation, No Eyelid inflammation, No Other, No Redness ENT: No Ear pain, No Ear discharge, No Nose pain, No Nose discharge, No Nose congestion, No Mouth pain, No Mouth swelling, No Throat pain, No Throat swelling, No Other Cardiovascular: No Chest Pain, No Palpitations, No Orthopnea, No Paroxysmal Noc. Dyspnea, No Edema, No Lt Headedness, No Other Respiratory: No Cough, No Dry, No Shortness of breath, No SOB with excertion, No Wheezing, No Hemoptysis, No Pleuritic Pain, No Sputum, No Other Gastrointestinal: No Nausea, No Vomiting, No Abdominal Pain, No Diarrhea, No Constipation, No Melena, No Hematochezia, No Other Genitourinary: No Dysuria, No Frequency, No Incontinence, No Hematuria, No Retention; Other (Owens catheter in place) Musculoskeletal: No other, No neck pain, No shoulder pain, No arm pain, No back pain, No hand pain, No leg pain, No foot pain Skin: No Rash, No Lesions, No Jaundice, No Bruising, No Other Objective Vitals Vital Signs Date Time Temp Pulse Resp B/P (MAP) Pulse Ox O2 Delivery O2 Flow Rate FiO2 02/08/25 15:00 99 13 159/79 (105) 100 02/08/25 14:00 Nasal Cannula* 2 28 02/08/25 12:00 98.7 98.7 Intake/Output Intake and Output 02/08/25 07:00 Intake Total 1246.2 ml Output Total 2300 ml Balance -1053.8 ml Intake Oral 0 ml IV Total 496.2 ml Tube Feeding 150 ml Blood Product 300 ml Other 300 ml Output Urine Total 1300 ml Stool Total 1000 ml General Appearance: Other (Confused and lethargic) HEENT: Atraumatic, PERRLA, EOMI, Mucous membr. moist/pink Neck: Supple Lungs: Clear to auscultation, Normal air movement Cardiovascular: Regular rate, Normal S1, Normal S2, No murmurs, Gallops, Rubs Abdomen: Normal bowel sounds, Soft, No tenderness Neuro: Other (Confused, unable to exam) Psych/Mental Status: Other (Lethargic) Medications Current Medications Medications Dose Ordered Sig/Zaria Route Start Time Stop Time Status Last Admin Dose Admin Famotidine 20 mg Q12HR IV 01/07/25 10:00 UNV Diagnostic Test (Pha) 1 strip IQ4HR 01/07/25 08:00 Cancel Calcium Gluconate/ Sodium Chloride 50 ml @ 100 mls/hr Q30M IV 01/08/25 17:30 01/08/25 18:29 Cancel Pantoprazole Sodium 40 mg BID IV 01/10/25 10:00 02/08/25 11:18 40 MG Sodium Chloride 10 ml QSHIFT@10,22 IV 01/24/25 22:00 02/08/25 11:11 10 ML Diagnostic Test (Pha) 1 strip Q4HR 01/26/25 14:00 UNV Amino Acid Protein 30 ml TIDWM PO 01/28/25 18:00 02/06/25 18:12 30 ML Enteral Nutritional Formula 1,000 ml 30ML/HR GT 01/29/25 18:15 02/05/25 06:11 1,000 ML Vancomycin HCl 0 ml @ 0 mls/hr UD IV 01/31/25 14:30 Cancel Ursodiol 300 mg BID NG 02/01/25 22:00 02/07/25 09:20 300 MG Vancomycin HCl 0 ml @ 0 mls/hr UD IV 02/03/25 16:45 Epoetin Paolo-epbx 10,000 unit TUTHSA SC 02/04/25 10:00 02/08/25 11:18 10,000 UNIT Albumin Human 100 ml @ 100 mls/hr PRN PRN IV 02/05/25 06:45 02/05/25 08:00 100 MLS/HR Diagnostic Test (Pha) 1 strip IQ4HR 02/06/25 12:00 02/08/25 12:27 1 STRIP Insulin Human Regular IQ4HR SC 02/06/25 12:00 02/08/25 12:59 2 UNITS Dextrose 50 ml UD PRN IV 02/06/25 10:00 Spironolactone 50 mg DAILY PO 02/07/25 10:00 02/07/25 09:22 50 MG Levofloxacin/ Dextrose 100 ml @ 100 mls/hr Q48H IV 02/07/25 15:45 UNV Cefepime HCl 50 ml @ 50 mls/hr Q24H IV 02/08/25 17:00 Hydralazine HCl 10 mg Q6HP PRN IV 02/08/25 04:45 02/08/25 04:54 10 MG Guaifenesin/ Dextromethorphan 10 ml Q6HP PRN PO 02/08/25 12:00 Morphine Sulfate 2 mg Q2HPRN PRN IV 02/08/25 12:00 02/08/25 12:48 2 MG Furosemide 40 mg DAILY IV 02/09/25 10:00 Laboratory Results Laboratory Tests 02/08/25 05:40 Chemistry Test 02/08/25 05:40 Albumin 2.8 g/dL (3.2-4.8) L Calcium Level 8.0 mg/dL (8.7-10.4) L Total Protein 5.5 g/dL (5.7-8.2) L LFT Test 02/08/25 05:40 Alanine Aminotransferase (ALT) < 9 U/L (7-40) Alkaline Phosphatase 2157 U/L (46-116) H Aspartate Amino Transferase (AST) 18 U/L (13-40) Total Bilirubin 2.7 mg/dL (0.2-1.0) H Urinalysis Test 01/08/25 18:27 01/10/25 11:50 01/22/25 17:30 Urine Osmolality 300 mOsm/kg Urine Creatinine 26.27 mg/dL (30.0-125.0) L Urine Protein/Creatinine Ratio 7.12 Urine Sodium 79 mmol/L (40-220) Urine Total Protein 187.1 mg/dL (1-14) H Urine Color Colorless (Yellow) Urine Clarity Turbid (Clear) H Urine pH 6.0 (5.0-9.0) Urine Specific [place] 1.011 (1.001-1.035) Urine Protein 2+ (Negative) H Urine Ketones Negative (Negative) Urine Blood 3+ /uL (Negative) H Urine Nitrite Negative (Negative) Urine Bilirubin Negative (Negative) Urine Urobilinogen Normal mg/dL (Negative) Urine Leukocyte Esterase Negative /uL (Negative) Urine RBC 702 /hpf (0 - 3) Urine Microscopic WBC < 1 /HPF (0-3) Urine Squamous Epithelial Cells Few /hpf (<5) Urine Bacteria None seen /hpf (None Seen) Urine Hyaline Casts Few /lpf (0 - 2) Urine Mucus Few (None Seen) Urine Glucose 2+ mg/dL (Normal) H Microbiology Microbiology Date/Time Source Procedure Growth Status 02/07/25 13:52 Blood Blood Culture - Preliminary NO GROWTH AFTER 24 HOURS OF INCUBATION. Resulted 01/26/25 08:46 Urine - [place] Urine Culture - Final Complete 01/24/25 04:15 Sputum Gram Stain - Final Complete 01/24/25 04:15 Sputum Respiratory Culture - Final Complete 01/23/25 20:30 Pleural Fluid Gram Stain - Final Complete 01/23/25 20:30 Pleural Fluid Body Fluid Culture - Final Complete 01/19/25 16:06 Nose MRSA Screen - Final Complete 01/08/25 10:37 Stool Stool Culture - Final Complete 01/08/25 10:37 Stool Shiga Toxin I & II - Final Complete Assessment/Plan Assessment/Plan Neurology # acute metabolic encephalopathy likely due to DKA vs Sepsis, improving - head CT from 01/07/2025: No acute territorial infarct, intracranial hemorrhage or mass effect - head CT from 01/19/2025: No acute intracranial abnormality - monitor Cardiovascular # runs of AFib on EKG # prolonged QTC # Essential hypertension - avoiding QT prolonging drugs - echocardiogram from 07/20/2022: Overall preserved ventricular systolic function. EF 60%. Grade 1 diastolic dysfunction. - increased amlodipine to 10mg qD - repeat echo: Mild LVH and mild LV diastolic dysfunction. LVEF 65%. Slightly dilated left atrium. Moderately dilated RV and RA. Moderate degree pulmonary hypertension. Normal valves and no effusion. - monitor Respiratory # Community acquired pneumonia, Gram-positive versus Gram-negative # Acute hypoxic respiratory failure due to above, intubated and mechanically ventilated # moderate-large b/l Pleural effusions # moderate pulmonary hypertension with RVSP 46 mmHg - CXR 01/08/25: Bibasilar atelectasis or pneumonia. - CXR 01/20/25: Patchy bilateral airspace disease, [id number], slightly increased - previously on meropenem and vancomycin, stopped on 01/12/2025 - started on aztreonam on 01/17/2025, linezolid 01/16/2025 - discontinued aztreonam and linezolid on 01/20/2025 - started cefepime, vancomycin and metronidazole on 01/20/2025 - discontinued vancomycin 01/23/2025 - started linezolid, however, dc'ed linezolid on d/t thrombocytopenia, resumed vancomycin on 01/31 - s/p thoracentesis with 900 mL of fluid removed on 01/23/2025 GI # Acute intractable abdominal pain (01/21/25), improved # cholestasis of critical illness # Microcytic anemia possibly 2' to ?LGI bleed; Hb 7.8 # Moderate abdominopelvic ascites # Peptic ulcer prophylaxis # gallbladder hydrops # hypokalemia - stool occult blood positive - GI consult - CT abdomen pelvis from 01/07/2025: Nonspecific periportal edema. Incidental finding. -Pantoprazole 40 mg IV daily - serum lipase 113 - repeat CT abdomen pelvis (01/22/25): Moderate to large bilateral pleural effusions with patchy and consolidative infiltrates in the lung bases likely a combination of pneumonia and atelectasis.mLow to moderate volume abdominopelvic ascites and diffuse subcutaneous edema suggestive of anasarca. Moderate right hydronephrosis without visualization of hydroureter or obstructing calculi. This appearance is new versus CT scan dated 01/07/2025. Gallbladder hydrops without visualization of gallstones. This appearance may indicate acalculous cholecystitis. Fluid-filled colon with multiple air-fluid levels present, possibly related to diarrheal illness. No evidence of bowel obstruction, acute appendicitis, or other acute process in the abdomen or pelvis. 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 Moderate right hydronephrosis without visualization of hydroureter or obstructing calculi. This appearance is new versus CT scan dated 01/07/2025. Gallbladder hydrops without visualization of gallstones. This appearance may indicate acalculous cholecystitis. Fluid- filled colon with multiple air-fluid levels present, possibly related to diarrheal illness. No evidence of bowel obstruction, acute appendicitis, or other acute process in the abdomen or pelvis. - urology consulted - reconsulted nephrology - serum parathyroid hormone 185.9, corrected calcium 8.7 - currently running Lasix drip started on 02/04/25 Infectious disease # bilateral lower extremity cellulitis # left lower extremity diabetic foot ulcer on the plantar aspect growing Staph aureus # Sepsis due to above # left heel pressure ulcer # ruled out DVT # Fungal cutaneous infection in b/l groin # candidal balanitis with superimposed necrosis - MRI from 01/09/2025 shows Mild diffuse subcutaneous soft-tissue edema; possibly cellulitis. No bone marrow edema is present to suggest fracture or acute osteomyelitis. - bilateral lower extremity arterial Doppler: No hemodynamically significant stenosis based on peak systolic velocity criteria. - bilateral lower extremity venous Doppler: No right or left femoropopliteal venous thrombosis - discontinued aztreonam and linezolid on 01/20/2025 - started cefepime, vancomycin and metronidazole on 01/20/2025 - podiatry on board - left foot MRI: No MR evidence of osteomyelitis. Cellulitis and lateral 4 for deep of the 5th metatarsal bone were wound is noted overlying dressing. Edema in the intrinsic muscle of the foot may reflect sequelae of denervation, or myositis. - discontinued vancomycin 01/23/2025, started patient on daptomycin on 01/23/2025 - discontinued daptomycin, vancomycin and cefepime on 01/24/2025 - started linezolid on 01/24/2025 - discontinued linezolid on 01/31/2025 owing to dropping platelet count - started IV vancomycin per pharmacy after approval from Nephrology to have the dose timed with dialysis sessions on 01/31/25 - topical nystatin - added IV ceftriaxone 02/07/2025 Hem/onc # microcytic anemia # thrombocytosis likely secondary to sepsis # thrombocytopenia, worsening - s/p 4 PRBC transfusion - GI on board - monitor Endocrine # DKA, now resolved # recurrent episodes of hypoglycemia # severe protein calorie malnutrition # diabetic/starvation ketoacidosis, improved - discontinued lispro - holding insulin Lantus as patient continues to get hypoglycemic - mild sliding scale insulin - Accu-Cheks q4hr Diet Nepro carb steady with ProStat tube feedings Lines - right PICC line paced on 01/24/2025 - right-sided Dean catheter placed on 01/24/2025 - Owens catheter exchanged on 01/26/2025 Drips Lasix at 20 milligrams/hour KCl Transeferred to OXANA 01/23/25 Intubated on 01/06/25 Extubated on 01/12/25 Intubated again on 01/24/25 Extubated on 02/05/2025 critical care time excluding procedures was 56 mins Plan discussed with: Patient My Orders Orders - GUNNAR TURCIOS MD Procedure Category Date Status Time Guaifenesin-Dextromet PHA 02/08/25 In Process Liquid (Robitussin 12:00 Morphine Sulfate PHA 02/08/25 In Process Injection 12:00 Full Liq Diet DIET 02/08/25 Transmitted Lunch Date of Service: Feb 08, 2025 Billing Provider: GUNNAR TURCIOS MD Common Visit Codes: [id number] CARE 30-74 MIN GUNNAR TURCIOS MD Feb 08, 2025 15:36
[2025-02-08] MEDS: CEFEPIME 1GM/ 50ML 50 ML IV SCH (17:00)
--- NOTE | 2025-02-08 20:54 | DVHPN2 ---
Consult Progress Note Date Seen: Feb 04, 2025 Subjective Patient reports: No new complaints (off all antibioitcs , tolerating dialysis and breathing well on minimal vent and tolerating tube feeds ) Objective vital signs Vital Sign Date Time Temp Pulse Resp B/P (MAP) Pulse Ox O2 Delivery O2 Flow Rate FiO2 02/08/25 20:00 98.0 102 13 148/74 (98) 99 98.0 02/08/25 17:55 Nasal Cannula* 2 28 Total Intake and Output 02/07/25 02/07/25 02/08/25 15:00 23:00 07:00 Intake Total 646.2 ml 600 ml 0 ml Output Total 1600 ml 700 ml Balance 646.2 ml -1000 ml -700 ml medications Current Medications Medications Dose Ordered Sig/Zaria Route Start Time Stop Time Status Last Admin Dose Admin Famotidine 20 mg Q12HR IV 01/07/25 10:00 UNV Diagnostic Test (Pha) 1 strip IQ4HR 01/07/25 08:00 Cancel Calcium Gluconate/ Sodium Chloride 50 ml @ 100 mls/hr Q30M IV 01/08/25 17:30 01/08/25 18:29 Cancel Pantoprazole Sodium 40 mg BID IV 01/10/25 10:00 02/08/25 11:18 40 MG Sodium Chloride 10 ml QSHIFT@10,22 IV 01/24/25 22:00 02/08/25 11:11 10 ML Diagnostic Test (Pha) 1 strip Q4HR 01/26/25 14:00 UNV Amino Acid Protein 30 ml TIDWM PO 01/28/25 18:00 02/06/25 18:12 30 ML Enteral Nutritional Formula 1,000 ml 30ML/HR GT 01/29/25 18:15 02/05/25 06:11 1,000 ML Vancomycin HCl 0 ml @ 0 mls/hr UD IV 01/31/25 14:30 Cancel Ursodiol 300 mg BID NG 02/01/25 22:00 02/07/25 09:20 300 MG Vancomycin HCl 0 ml @ 0 mls/hr UD IV 02/03/25 16:45 Epoetin Paolo-epbx 10,000 unit TUTHSA SC 02/04/25 10:00 02/08/25 11:18 10,000 UNIT Albumin Human 100 ml @ 100 mls/hr PRN PRN IV 02/05/25 06:45 02/05/25 08:00 100 MLS/HR Diagnostic Test (Pha) 1 strip IQ4HR 02/06/25 12:00 02/08/25 19:30 1 STRIP Insulin Human Regular IQ4HR SC 02/06/25 12:00 02/08/25 19:32 6 UNITS Dextrose 50 ml UD PRN IV 02/06/25 10:00 Spironolactone 50 mg DAILY PO 02/07/25 10:00 02/07/25 09:22 50 MG Levofloxacin/ Dextrose 100 ml @ 100 mls/hr Q48H IV 02/07/25 15:45 UNV Cefepime HCl 50 ml @ 50 mls/hr Q24H IV 02/08/25 17:00 02/08/25 17:00 50 MLS/HR Hydralazine HCl 10 mg Q6HP PRN IV 02/08/25 04:45 02/08/25 04:54 10 MG Guaifenesin/ Dextromethorphan 10 ml Q6HP PRN PO 02/08/25 12:00 Morphine Sulfate 2 mg Q2HPRN PRN IV 02/08/25 12:00 02/08/25 19:30 2 MG Furosemide 40 mg DAILY IV 02/09/25 10:00 laboratory and microbiology Laboratory Tests 02/08/25 05:40 Test 02/08/25 05:40 Range/Units Serum Glucose 151 H 74-106 mg/dL Problem List/Assessment/Plan Problems(with codes): (1) Tachycardia (2) GI bleed (3) Coffee ground emesis (4) Elevated AFP (5) Fluid overload (6) Gallstones (7) Gallbladder hydrops (8) History of diabetic ketoacidosis Problem List/Assessment/Plan - Acute hypoxic respiratory therapy Patient is a 44 year old with a past medical history of type 1 diabetes who presents with blood sugars of 940, altered mental status . was started on insulin drip and monitored in ICU . having respiratory distress and respiratory alkalosis . chest xray was unremarkable patient was started empirically on vancomycin and Zosyn . later developed swelling of the lips and out of concern of allergy Zosyn was stopped and switched to Aztreonam and vancomycin was stopped due to acute kidney injury and was switched to linezolid . patient has chronic bilateral foot wounds with no new ulcers , malnourished . both feet ulcers are on the planar surface with a necrotic planar base, on the right foot it looks newer with mild drainage. Currently tolerating antibiotics whitecount is 18.6 , creatinine is 2.24 and patient is on minimal vent and no requiring any presser support . microbiology cultures and respiratory cultures are negative . foot wound was swabbed and is growing MSSA and enterococcus facialis. unclear sensitivities . 01/18: growing MSSA and enterococcus that is sensitive to ampicillin and vancomycin . whitecount is at 21.6. 01/19: whitecount is 19.1 . blood sugars are more controlled . underwent MRI of feet bilaterally and no signs of osteomyelitis , only cellulitis 01/20: switched from aztreonam to cefepime and fluconazole because of candidal infection of the groin which is alse a concer for persistly elevated leukocytosis and ongoing visible cellulitis 01/21: worsening RADHA , may have to stop vancomycin early 01/22: Worsening RADHA , likely edema in the lungs . vancomycin troths was 19.3 on the higher end of normal 01/23: Chest xray shows worsening multifocal pneumonia , patient is also having worsening RADHA 01/24: Chest xray continues to show worsening multifocal pneumonia , worsening leukocytosis and levofed needs consistent with new pneumonia resulting in septic shock or volume overload 01/25: preliminary sputum culture shows mucus threads , no organisms , no growth . respiratory cultures show no growth . chest xray shows multifocal pneumonia , worse from prior . hemoglobin is at 7.5 01/26: whitecount at 12.8 , required blood transfusion for hemoglobin 6.2 . unclear where patient is having bleeding 01/27: preliminary urine and respiratory cultures are no growth to date . whitecount now at 11. Chest xray shows bilateral airspace disease in the right upper quadral ultrasound shows hepatomegaly with coarsened echo texture which could be seen in setting of liver disease fibrosis 01/28: whitecount down to normal , suspect infection is largely resolving 01/29:platelet drop likely related to linezolid use , if it drops under 100 would stop linezolid and switch to vancomycin 01/30: continues to have large volume of stool output and urine output is slowly improving . platelets have gone under 100 01/31: signs of infection appear to have subsided however patient continues to have issues with edema and liver failure and bleeding . 02/04: tolerating tube feeds Plan : - will monitor clinically off all antibiotics and antibiotic therapy should be started if there is a low suspicion of infection given pulmonary fibrosis and tenuous hemodynamic status as well as paracentesis and can hold off for now - defer management of diarrhea and blood loss , anemia to GI services - stop cefepime - defer to primary team regarding plan for diuresis in setting of possible volume overload and anemia workup otherwise suspect volume overload is etiology largely contributing to patients ongoing hypoxia - Continue topical nystatin 2x a day for growing fungal infection - agree with urine culture to evaluate for UTI in setting of RADHA and jnoes use - if hypotension or hypoxia worsen start meropenem empirically - f/u on any plural studies done , so far not consistent with parapneumonic pneumonia - if patient continues to have signs of infection will consider acquiring a ct of lower extremities bilaterally to evaluate for unseen abscess or osteomyelitis but can hold off for now - defer DKA management to primary care team - defer management of vent support to keep O2 sats above 95% 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 This critical care time included obtaining a history; examining the patient; pulse oximetry; ordering and review of studies; arranging urgent treatment with development of a management plan; evaluation of patient's response to treatment; frequent reassessment; and, discussions with other providers. This critical care time was performed to assess and manage the high probability of imminent, life-threatening deterioration that could result in multi-organ failure. It was exclusive of separately billable procedures and treating other patients and teaching time. Plan discussed with: Patient Dietary Evaluation Review Recommendations by RD: Increase Calorie Intake Comments: Nutrition Recommendation: 1) Vital AF 1.2Cal @ 25ml/hr along with Pro-stat 1 pk BID. start @ 20ml/hr, increase 10ml/hr Q4H until goal is reached. TF @ goal volume along with propofol, IV D5wNS0.45%, and Pro-stat provides 1684 kcal (100% energy needs), 75gm protein (100% protein needs), 487ml free water. 2) TPN to meet 75% estimated needs if remains NPO 3) Bryce 1 pk BID for DFU Expected Outcomes/Goals: DFU to improve To maintain/gain weight To meet at least 75% estimated needs Fu 2-3 days Interpretation of weight loss: up to 5% in 1 month Muscle Mass (Severe): Mod to Severe Depletion Protein Calorie Malnutrition: Non-Severe Is there a minimum of two crit: Yes LIZZY ROLAND MD Feb 08, 2025 20:54
--- NOTE | 2025-02-08 20:54 | DVHPN2 ---
Consult Progress Note Date Seen: Feb 08, 2025 Subjective Patient reports: Feels better (leukocytosis is slowly improving , back on room air and mildly agitated ) Objective vital signs Vital Sign Date Time Temp Pulse Resp B/P (MAP) Pulse Ox O2 Delivery O2 Flow Rate FiO2 02/08/25 20:00 98.0 102 13 148/74 (98) 99 98.0 02/08/25 17:55 Nasal Cannula* 2 28 Total Intake and Output 02/07/25 02/07/25 02/08/25 15:00 23:00 07:00 Intake Total 646.2 ml 600 ml 0 ml Output Total 1600 ml 700 ml Balance 646.2 ml -1000 ml -700 ml medications Current Medications Medications Dose Ordered Sig/Zaria Route Start Time Stop Time Status Last Admin Dose Admin Famotidine 20 mg Q12HR IV 01/07/25 10:00 UNV Diagnostic Test (Pha) 1 strip IQ4HR 01/07/25 08:00 Cancel Calcium Gluconate/ Sodium Chloride 50 ml @ 100 mls/hr Q30M IV 01/08/25 17:30 01/08/25 18:29 Cancel Pantoprazole Sodium 40 mg BID IV 01/10/25 10:00 02/08/25 11:18 40 MG Sodium Chloride 10 ml QSHIFT@10,22 IV 01/24/25 22:00 02/08/25 11:11 10 ML Diagnostic Test (Pha) 1 strip Q4HR 01/26/25 14:00 UNV Amino Acid Protein 30 ml TIDWM PO 01/28/25 18:00 02/06/25 18:12 30 ML Enteral Nutritional Formula 1,000 ml 30ML/HR GT 01/29/25 18:15 02/05/25 06:11 1,000 ML Vancomycin HCl 0 ml @ 0 mls/hr UD IV 01/31/25 14:30 Cancel Ursodiol 300 mg BID NG 02/01/25 22:00 02/07/25 09:20 300 MG Vancomycin HCl 0 ml @ 0 mls/hr UD IV 02/03/25 16:45 Epoetin Paolo-epbx 10,000 unit TUTHSA SC 02/04/25 10:00 02/08/25 11:18 10,000 UNIT Albumin Human 100 ml @ 100 mls/hr PRN PRN IV 02/05/25 06:45 02/05/25 08:00 100 MLS/HR Diagnostic Test (Pha) 1 strip IQ4HR 02/06/25 12:00 02/08/25 19:30 1 STRIP Insulin Human Regular IQ4HR SC 02/06/25 12:00 02/08/25 19:32 6 UNITS Dextrose 50 ml UD PRN IV 02/06/25 10:00 Spironolactone 50 mg DAILY PO 02/07/25 10:00 02/07/25 09:22 50 MG Levofloxacin/ Dextrose 100 ml @ 100 mls/hr Q48H IV 02/07/25 15:45 UNV Cefepime HCl 50 ml @ 50 mls/hr Q24H IV 02/08/25 17:00 02/08/25 17:00 50 MLS/HR Hydralazine HCl 10 mg Q6HP PRN IV 02/08/25 04:45 02/08/25 04:54 10 MG Guaifenesin/ Dextromethorphan 10 ml Q6HP PRN PO 02/08/25 12:00 Morphine Sulfate 2 mg Q2HPRN PRN IV 02/08/25 12:00 02/08/25 19:30 2 MG Furosemide 40 mg DAILY IV 02/09/25 10:00 laboratory and microbiology Laboratory Tests 02/08/25 05:40 Test 02/08/25 05:40 Range/Units Serum Glucose 151 H 74-106 mg/dL Problem List/Assessment/Plan Problems(with codes): (1) Elevated AFP (2) Fluid overload (3) Gallstones (4) History of diabetic ketoacidosis (5) Gallbladder hydrops (6) Cannabinoid hyperemesis syndrome (7) Intractable abdominal pain Problem List/Assessment/Plan - Acute hypoxic respiratory therapy Patient is a 44 year old with a past medical history of type 1 diabetes who presents with blood sugars of 940, altered mental status . was started on insulin drip and monitored in ICU . having respiratory distress and respiratory alkalosis . chest xray was unremarkable patient was started empirically on vancomycin and Zosyn . later developed swelling of the lips and out of concern of allergy Zosyn was stopped and switched to Aztreonam and vancomycin was stopped due to acute kidney injury and was switched to linezolid . patient has chronic bilateral foot wounds with no new ulcers , malnourished . both feet ulcers are on the planar surface with a necrotic planar base, on the right foot it looks newer with mild drainage. Currently tolerating antibiotics whitecount is 18.6 , creatinine is 2.24 and patient is on minimal vent and no requiring any presser support . microbiology cultures and respiratory cultures are negative . foot wound was swabbed and is growing MSSA and enterococcus facialis. unclear sensitivities . 01/18: growing MSSA and enterococcus that is sensitive to ampicillin and vancomycin . whitecount is at 21.6. 01/19: whitecount is 19.1 . blood sugars are more controlled . underwent MRI of feet bilaterally and no signs of osteomyelitis , only cellulitis 01/20: switched from aztreonam to cefepime and fluconazole because of candidal infection of the groin which is alse a concer for persistly elevated leukocytosis and ongoing visible cellulitis 01/21: worsening RADHA , may have to stop vancomycin early 01/22: Worsening RADHA , likely edema in the lungs . vancomycin troths was 19.3 on the higher end of normal 01/23: Chest xray shows worsening multifocal pneumonia , patient is also having worsening RADHA 01/24: Chest xray continues to show worsening multifocal pneumonia , worsening leukocytosis and levofed needs consistent with new pneumonia resulting in septic shock or volume overload 01/25: preliminary sputum culture shows mucus threads , no organisms , no growth . respiratory cultures show no growth . chest xray shows multifocal pneumonia , worse from prior . hemoglobin is at 7.5 01/26: whitecount at 12.8 , required blood transfusion for hemoglobin 6.2 . unclear where patient is having bleeding 01/27: preliminary urine and respiratory cultures are no growth to date . whitecount now at 11. Chest xray shows bilateral airspace disease in the right upper quadral ultrasound shows hepatomegaly with coarsened echo texture which could be seen in setting of liver disease fibrosis 01/28: whitecount down to normal , suspect infection is largely resolving 01/29:platelet drop likely related to linezolid use , if it drops under 100 would stop linezolid and switch to vancomycin 01/30: continues to have large volume of stool output and urine output is slowly improving . platelets have gone under 100 01/31: signs of infection appear to have subsided however patient continues to have issues with edema and liver failure and bleeding . 02/04: tolerating tube feeds 02/05: s/p excavation , remains on tube feeds . not on any presser support 02/06: no signs of ongoing infection 02/07:suspect hypoxia and mucositis is related to aspiration event from pulling out tube 02/08: preliminary blood cultures are no growth to date , NKB shows non obstructive gas pattern , lung pieces are unremarkable . chest xray shows interval removal of ET tube. Doppler ultrasound of legs shows no DVT Plan : - can stop vancomycin, - continue cefepime for now - will fu on blood cultures - suspect leukocytosis and tachycardia is more related to blood loss anemia. - defer management of diarrhea and blood loss , anemia to GI services - defer to primary team regarding plan for diuresis in setting of possible volume overload and anemia workup otherwise suspect volume overload is etiology largely contributing to patients ongoing hypoxia - Continue topical nystatin 2x a day for growing fungal infection - f/u on any plural studies done , so far not consistent with parapneumonic pneumonia - f/u on pending blood cultures Plan discussed with: Other Dietary Evaluation Review Recommendations by RD: Increase Calorie Intake Comments: Nutrition Recommendation: 1) Vital AF 1.2Cal @ 25ml/hr along with Pro-stat 1 pk BID. start @ 20ml/hr, increase 10ml/hr Q4H until goal is reached. TF @ goal volume along with propofol, IV D5wNS0.45%, and Pro-stat provides 1684 kcal (100% energy needs), 75gm protein (100% protein needs), 487ml free water. 2) TPN to meet 75% estimated needs if remains NPO 3) Bryce 1 pk BID for DFU Expected Outcomes/Goals: DFU to improve To maintain/gain weight To meet at least 75% estimated needs Fu 2-3 days Interpretation of weight loss: up to 5% in 1 month Muscle Mass (Severe): Mod to Severe Depletion Protein Calorie Malnutrition: Non-Severe Is there a minimum of two crit: Yes LIZZY MOSER MD Feb 08, 2025 20:54
--- NOTE | 2025-02-08 20:54 | DVHPN2 ---
Consult Progress Note Date Seen: Feb 07, 2025 Subjective Patient reports: Other (patient pulled out his NG tube and having an elevated whitecount and on 3 liters nasal canula ) Objective vital signs Vital Sign Date Time Temp Pulse Resp B/P (MAP) Pulse Ox O2 Delivery O2 Flow Rate FiO2 02/08/25 20:00 98.0 102 13 148/74 (98) 99 98.0 02/08/25 17:55 Nasal Cannula* 2 28 Total Intake and Output 02/07/25 02/07/25 02/08/25 15:00 23:00 07:00 Intake Total 646.2 ml 600 ml 0 ml Output Total 1600 ml 700 ml Balance 646.2 ml -1000 ml -700 ml medications Current Medications Medications Dose Ordered Sig/Zaria Route Start Time Stop Time Status Last Admin Dose Admin Famotidine 20 mg Q12HR IV 01/07/25 10:00 UNV Diagnostic Test (Pha) 1 strip IQ4HR 01/07/25 08:00 Cancel Calcium Gluconate/ Sodium Chloride 50 ml @ 100 mls/hr Q30M IV 01/08/25 17:30 01/08/25 18:29 Cancel Pantoprazole Sodium 40 mg BID IV 01/10/25 10:00 02/08/25 11:18 40 MG Sodium Chloride 10 ml QSHIFT@10,22 IV 01/24/25 22:00 02/08/25 11:11 10 ML Diagnostic Test (Pha) 1 strip Q4HR 01/26/25 14:00 UNV Amino Acid Protein 30 ml TIDWM PO 01/28/25 18:00 02/06/25 18:12 30 ML Enteral Nutritional Formula 1,000 ml 30ML/HR GT 01/29/25 18:15 02/05/25 06:11 1,000 ML Vancomycin HCl 0 ml @ 0 mls/hr UD IV 01/31/25 14:30 Cancel Ursodiol 300 mg BID NG 02/01/25 22:00 02/07/25 09:20 300 MG Vancomycin HCl 0 ml @ 0 mls/hr UD IV 02/03/25 16:45 Epoetin Paolo-epbx 10,000 unit TUTHSA SC 02/04/25 10:00 02/08/25 11:18 10,000 UNIT Albumin Human 100 ml @ 100 mls/hr PRN PRN IV 02/05/25 06:45 02/05/25 08:00 100 MLS/HR Diagnostic Test (Pha) 1 strip IQ4HR 02/06/25 12:00 02/08/25 19:30 1 STRIP Insulin Human Regular IQ4HR SC 02/06/25 12:00 02/08/25 19:32 6 UNITS Dextrose 50 ml UD PRN IV 02/06/25 10:00 Spironolactone 50 mg DAILY PO 02/07/25 10:00 02/07/25 09:22 50 MG Levofloxacin/ Dextrose 100 ml @ 100 mls/hr Q48H IV 02/07/25 15:45 UNV Cefepime HCl 50 ml @ 50 mls/hr Q24H IV 02/08/25 17:00 02/08/25 17:00 50 MLS/HR Hydralazine HCl 10 mg Q6HP PRN IV 02/08/25 04:45 02/08/25 04:54 10 MG Guaifenesin/ Dextromethorphan 10 ml Q6HP PRN PO 02/08/25 12:00 Morphine Sulfate 2 mg Q2HPRN PRN IV 02/08/25 12:00 02/08/25 19:30 2 MG Furosemide 40 mg DAILY IV 02/09/25 10:00 laboratory and microbiology Laboratory Tests 02/08/25 05:40 Test 02/08/25 05:40 Range/Units Serum Glucose 151 H 74-106 mg/dL Problem List/Assessment/Plan Problems(with codes): (1) Elevated AFP (2) Fluid overload (3) Gallstones (4) Gallbladder hydrops (5) History of diabetic ketoacidosis (6) Cannabinoid hyperemesis syndrome Problem List/Assessment/Plan - Acute hypoxic respiratory therapy Patient is a 44 year old with a past medical history of type 1 diabetes who presents with blood sugars of 940, altered mental status . was started on insulin drip and monitored in ICU . having respiratory distress and respiratory alkalosis . chest xray was unremarkable patient was started empirically on vancomycin and Zosyn . later developed swelling of the lips and out of concern of allergy Zosyn was stopped and switched to Aztreonam and vancomycin was stopped due to acute kidney injury and was switched to linezolid . patient has chronic bilateral foot wounds with no new ulcers , malnourished . both feet ulcers are on the planar surface with a necrotic planar base, on the right foot it looks newer with mild drainage. Currently tolerating antibiotics whitecount is 18.6 , creatinine is 2.24 and patient is on minimal vent and no requiring any presser support . microbiology cultures and respiratory cultures are negative . foot wound was swabbed and is growing MSSA and enterococcus facialis. unclear sensitivities . 01/18: growing MSSA and enterococcus that is sensitive to ampicillin and vancomycin . whitecount is at 21.6. 01/19: whitecount is 19.1 . blood sugars are more controlled . underwent MRI of feet bilaterally and no signs of osteomyelitis , only cellulitis 01/20: switched from aztreonam to cefepime and fluconazole because of candidal infection of the groin which is alse a concer for persistly elevated leukocytosis and ongoing visible cellulitis 01/21: worsening RADHA , may have to stop vancomycin early 01/22: Worsening RADHA , likely edema in the lungs . vancomycin troths was 19.3 on the higher end of normal 01/23: Chest xray shows worsening multifocal pneumonia , patient is also having worsening RADHA 01/24: Chest xray continues to show worsening multifocal pneumonia , worsening leukocytosis and levofed needs consistent with new pneumonia resulting in septic shock or volume overload 01/25: preliminary sputum culture shows mucus threads , no organisms , no growth . respiratory cultures show no growth . chest xray shows multifocal pneumonia , worse from prior . hemoglobin is at 7.5 01/26: whitecount at 12.8 , required blood transfusion for hemoglobin 6.2 . unclear where patient is having bleeding 01/27: preliminary urine and respiratory cultures are no growth to date . whitecount now at 11. Chest xray shows bilateral airspace disease in the right upper quadral ultrasound shows hepatomegaly with coarsened echo texture which could be seen in setting of liver disease fibrosis 01/28: whitecount down to normal , suspect infection is largely resolving 01/29:platelet drop likely related to linezolid use , if it drops under 100 would stop linezolid and switch to vancomycin 01/30: continues to have large volume of stool output and urine output is slowly improving . platelets have gone under 100 01/31: signs of infection appear to have subsided however patient continues to have issues with edema and liver failure and bleeding . 02/04: tolerating tube feeds 02/05: s/p excavation , remains on tube feeds . not on any presser support 02/06: no signs of ongoing infection 02/07:suspect hypoxia and mucositis is related to aspiration event from pulling out tube Plan : - check blood cultures - start vancomycin and cefepime while waiting for culture results - check chest xray in 24 hours - if cough or sputum production changes check sputum culture - consider adding flagyl if hypoxia or concerns for pneumonia exist - defer management of diarrhea and blood loss , anemia to GI services - defer to primary team regarding plan for diuresis in setting of possible volume overload and anemia workup otherwise suspect volume overload is etiology largely contributing to patients ongoing hypoxia - Continue topical nystatin 2x a day for growing fungal infection - agree with urine culture to evaluate for UTI in setting of RADHA and jones use - if hypotension or hypoxia worsen start meropenem empirically - f/u on any plural studies done , so far not consistent with parapneumonic pneumonia - if patient continues to have signs of infection will consider acquiring a ct of lower extremities bilaterally to evaluate for unseen abscess or osteomyelitis but can hold off for now - defer DKA management to primary care team - defer management of vent support to keep O2 sats above 95% to log raft worker team - f/u on pending blood cultures Authorized and Performed by: Lizzy Roland Total critical care time: Approximately 76 minutes Due to a high probability of clinically significant, life threatening deterioration, the patient required my highest level of preparedness to intervene emergently and I personally spent this critical care time directly and personally managing the patient. This critical care time included obtaining a history; examining the patient; pulse oximetry; ordering and review of studies; arranging urgent treatment with development of a management plan; evaluation of patient's response to treatment; frequent reassessment; and, discussions with other providers. This critical care time was performed to assess and manage the high probability of imminent, life-threatening deterioration that could result in multi-organ failure. It was exclusive of separately billable procedures and treating other patients and teaching time. Plan discussed with: Other Dietary Evaluation Review Recommendations by RD: Increase Calorie Intake Comments: Nutrition Recommendation: 1) Vital AF 1.2Cal @ 25ml/hr along with Pro-stat 1 pk BID. start @ 20ml/hr, increase 10ml/hr Q4H until goal is reached. TF @ goal volume along with propofol, IV D5wNS0.45%, and Pro-stat provides 1684 kcal (100% energy needs), 75gm protein (100% protein needs), 487ml free water. 2) TPN to meet 75% estimated needs if remains NPO 3) Bryce 1 pk BID for DFU Expected Outcomes/Goals: DFU to improve To maintain/gain weight To meet at least 75% estimated needs Fu 2-3 days Interpretation of weight loss: up to 5% in 1 month Muscle Mass (Severe): Mod to Severe Depletion Protein Calorie Malnutrition: Non-Severe Is there a minimum of two crit: Yes LIZZY ROLAND MD Feb 08, 2025 20:54
--- NOTE | 2025-02-08 20:54 | DVHPN2 ---
Consult Progress Note Date Seen: Feb 06, 2025 Subjective Patient reports: Other (on room air , getting volume removed by dialysis and having some elevated tube feed residuals through NG tube . tachycardia is slowly improving and is hypertensive ) Objective vital signs Vital Sign Date Time Temp Pulse Resp B/P (MAP) Pulse Ox O2 Delivery O2 Flow Rate FiO2 02/08/25 20:00 98.0 102 13 148/74 (98) 99 98.0 02/08/25 17:55 Nasal Cannula* 2 28 Total Intake and Output 02/07/25 02/07/25 02/08/25 15:00 23:00 07:00 Intake Total 646.2 ml 600 ml 0 ml Output Total 1600 ml 700 ml Balance 646.2 ml -1000 ml -700 ml medications Current Medications Medications Dose Ordered Sig/Zaria Route Start Time Stop Time Status Last Admin Dose Admin Famotidine 20 mg Q12HR IV 01/07/25 10:00 UNV Diagnostic Test (Pha) 1 strip IQ4HR 01/07/25 08:00 Cancel Calcium Gluconate/ Sodium Chloride 50 ml @ 100 mls/hr Q30M IV 01/08/25 17:30 01/08/25 18:29 Cancel Pantoprazole Sodium 40 mg BID IV 01/10/25 10:00 02/08/25 11:18 40 MG Sodium Chloride 10 ml QSHIFT@10,22 IV 01/24/25 22:00 02/08/25 11:11 10 ML Diagnostic Test (Pha) 1 strip Q4HR 01/26/25 14:00 UNV Amino Acid Protein 30 ml TIDWM PO 01/28/25 18:00 02/06/25 18:12 30 ML Enteral Nutritional Formula 1,000 ml 30ML/HR GT 01/29/25 18:15 02/05/25 06:11 1,000 ML Vancomycin HCl 0 ml @ 0 mls/hr UD IV 01/31/25 14:30 Cancel Ursodiol 300 mg BID NG 02/01/25 22:00 02/07/25 09:20 300 MG Vancomycin HCl 0 ml @ 0 mls/hr UD IV 02/03/25 16:45 Epoetin Paolo-epbx 10,000 unit TUTHSA SC 02/04/25 10:00 02/08/25 11:18 10,000 UNIT Albumin Human 100 ml @ 100 mls/hr PRN PRN IV 02/05/25 06:45 02/05/25 08:00 100 MLS/HR Diagnostic Test (Pha) 1 strip IQ4HR 02/06/25 12:00 02/08/25 19:30 1 STRIP Insulin Human Regular IQ4HR SC 02/06/25 12:00 02/08/25 19:32 6 UNITS Dextrose 50 ml UD PRN IV 02/06/25 10:00 Spironolactone 50 mg DAILY PO 02/07/25 10:00 02/07/25 09:22 50 MG Levofloxacin/ Dextrose 100 ml @ 100 mls/hr Q48H IV 02/07/25 15:45 UNV Cefepime HCl 50 ml @ 50 mls/hr Q24H IV 02/08/25 17:00 02/08/25 17:00 50 MLS/HR Hydralazine HCl 10 mg Q6HP PRN IV 02/08/25 04:45 02/08/25 04:54 10 MG Guaifenesin/ Dextromethorphan 10 ml Q6HP PRN PO 02/08/25 12:00 Morphine Sulfate 2 mg Q2HPRN PRN IV 02/08/25 12:00 02/08/25 19:30 2 MG Furosemide 40 mg DAILY IV 02/09/25 10:00 laboratory and microbiology Laboratory Tests 02/08/25 05:40 Test 02/08/25 05:40 Range/Units Serum Glucose 151 H 74-106 mg/dL Problem List/Assessment/Plan Problems(with codes): (1) Elevated AFP (2) Fluid overload (3) Gallstones (4) Gallbladder hydrops (5) History of diabetic ketoacidosis (6) Cannabinoid hyperemesis syndrome (7) Intractable abdominal pain Problem List/Assessment/Plan - Acute hypoxic respiratory therapy Patient is a 44 year old with a past medical history of type 1 diabetes who presents with blood sugars of 940, altered mental status . was started on insulin drip and monitored in ICU . having respiratory distress and respiratory alkalosis . chest xray was unremarkable patient was started empirically on vancomycin and Zosyn . later developed swelling of the lips and out of concern of allergy Zosyn was stopped and switched to Aztreonam and vancomycin was stopped due to acute kidney injury and was switched to linezolid . patient has chronic bilateral foot wounds with no new ulcers , malnourished . both feet ulcers are on the planar surface with a necrotic planar base, on the right foot it looks newer with mild drainage. Currently tolerating antibiotics whitecount is 18.6 , creatinine is 2.24 and patient is on minimal vent and no requiring any presser support . microbiology cultures and respiratory cultures are negative . foot wound was swabbed and is growing MSSA and enterococcus facialis. unclear sensitivities . 01/18: growing MSSA and enterococcus that is sensitive to ampicillin and vancomycin . whitecount is at 21.6. 01/19: whitecount is 19.1 . blood sugars are more controlled . underwent MRI of feet bilaterally and no signs of osteomyelitis , only cellulitis 01/20: switched from aztreonam to cefepime and fluconazole because of candidal infection of the groin which is alse a concer for persistly elevated leukocytosis and ongoing visible cellulitis 01/21: worsening RADHA , may have to stop vancomycin early 01/22: Worsening RADHA , likely edema in the lungs . vancomycin troths was 19.3 on the higher end of normal 01/23: Chest xray shows worsening multifocal pneumonia , patient is also having worsening RADHA 01/24: Chest xray continues to show worsening multifocal pneumonia , worsening leukocytosis and levofed needs consistent with new pneumonia resulting in septic shock or volume overload 01/25: preliminary sputum culture shows mucus threads , no organisms , no growth . respiratory cultures show no growth . chest xray shows multifocal pneumonia , worse from prior . hemoglobin is at 7.5 01/26: whitecount at 12.8 , required blood transfusion for hemoglobin 6.2 . unclear where patient is having bleeding 01/27: preliminary urine and respiratory cultures are no growth to date . whitecount now at 11. Chest xray shows bilateral airspace disease in the right upper quadral ultrasound shows hepatomegaly with coarsened echo texture which could be seen in setting of liver disease fibrosis 01/28: whitecount down to normal , suspect infection is largely resolving 01/29:platelet drop likely related to linezolid use , if it drops under 100 would stop linezolid and switch to vancomycin 01/30: continues to have large volume of stool output and urine output is slowly improving . platelets have gone under 100 01/31: signs of infection appear to have subsided however patient continues to have issues with edema and liver failure and bleeding . 02/04: tolerating tube feeds 02/05: s/p excavation , remains on tube feeds . not on any presser support 02/06: no signs of ongoing infection Plan : - will monitor clinically off all antibiotics and antibiotic therapy should be started if there is a low suspicion of infection given pulmonary fibrosis and tenuous hemodynamic status as well as paracentesis and can hold off for now - defer management of diarrhea and blood loss , anemia to GI services - defer to primary team regarding plan for diuresis in setting of possible volume overload and anemia workup otherwise suspect volume overload is etiology largely contributing to patients ongoing hypoxia - Continue topical nystatin 2x a day for growing fungal infection - agree with urine culture to evaluate for UTI in setting of RADHA and jones use - if hypotension or hypoxia worsen start meropenem empirically - f/u on any plural studies done , so far not consistent with parapneumonic pneumonia - if patient continues to have signs of infection will consider acquiring a ct of lower extremities bilaterally to evaluate for unseen abscess or osteomyelitis but can hold off for now - defer DKA management to primary care team - defer management of vent support to keep O2 sats above 95% to color corrector team - f/u on pending blood cultures Authorized and Performed by: Lizzy Roland Total critical care time: Approximately 76 minutes Due to a high probability of clinically significant, life threatening deterioration, the patient required my highest level of preparedness to intervene emergently and I personally spent this critical care time directly and personally managing the patient. This critical care time included obtaining a history; examining the patient; pulse oximetry; ordering and review of studies; arranging urgent treatment with development of a management plan; evaluation of patient's response to treatment; frequent reassessment; and, discussions with other providers. This critical care time was performed to assess and manage the high probability of imminent, life-threatening deterioration that could result in multi-organ failure. It was exclusive of separately billable procedures and treating other patients and teaching time. Plan discussed with: Other Dietary Evaluation Review Recommendations by RD: Increase Calorie Intake Comments: Nutrition Recommendation: 1) Vital AF 1.2Cal @ 25ml/hr along with Pro-stat 1 pk BID. start @ 20ml/hr, increase 10ml/hr Q4H until goal is reached. TF @ goal volume along with propofol, IV D5wNS0.45%, and Pro-stat provides 1684 kcal (100% energy needs), 75gm protein (100% protein needs), 487ml free water. 2) TPN to meet 75% estimated needs if remains NPO 3) Bryce 1 pk BID for DFU Expected Outcomes/Goals: DFU to improve To maintain/gain weight To meet at least 75% estimated needs Fu 2-3 days Interpretation of weight loss: up to 5% in 1 month Muscle Mass (Severe): Mod to Severe Depletion Protein Calorie Malnutrition: Non-Severe Is there a minimum of two crit: Yes LIZZY ROLAND MD Feb 08, 2025 20:54
[2025-02-09] VITALS (38 sets, daily range): BP systolic 131–188; BP diastolic 65–98; PULSE 93–111; RESP 8–21; TEMP 98.7–98.9; O2SAT 86–100
[2025-02-09 07:04] LABS: Chloride 106 mmol/L (98-107); Sodium 142 mmol/L (136-145)
[2025-02-09 07:05] LABS: Anion Gap 12 (5-15); Carbon Dioxide 24 mmol/L (20-31)
[2025-02-09 07:10] LABS: BUN/Creatinine Ratio 14.8 (10.0-20.0)
[2025-02-09 07:33] LABS: Blood Urea Nitrogen 30 mg/dL (9-23); Calcium 8.3 mg/dL (8.7-10.4); Glucose 189 mg/dL (74-106); Potassium 3.1 mmol/L (3.5-5.1)
[2025-02-09] MEDS: FUROSEMIDE 40 MG/4 ML VIAL IV SCH (09:08)
[2025-02-09] MEDS ORDERED: POTASSIUM EFFERVESENT TAB 25 MEQ PO ONE (09:30)
[2025-02-09] MEDS: SODIUM CHLORIDE 0.9% 1,000 ML IV ONE (10:43)
[2025-02-09] MEDS: POTASSIUM CHL 20MEQ/100ML 100 ML IV ONE (10:46)
[2025-02-09] MEDS: LABETALOL HCL 20 MG/4 ML VL IV PRN (11:25)
--- NOTE | 2025-02-09 14:01 | DVHPN2 ---
Progress Note - Dictate Date Seen: Feb 09, 2025 Medical Necessity Reason Pt with a Central, PICC or Fol: Yes The following are medically ne: Central Line, Jones Catheter Reason for jones catheter: Strict I&O vital signs Vital Sign Date Time Temp Pulse Resp B/P (MAP) Pulse Ox O2 Delivery O2 Flow Rate FiO2 02/09/25 12:00 99 02/09/25 11:49 12 99 Nasal Cannula* 2 28 02/09/25 11:30 140/66 (90) 02/09/25 08:00 98.9 98.9 Total Intake and Output 02/08/25 02/08/25 02/09/25 15:00 23:00 07:00 Intake Total 600 ml 550 ml 450 ml Output Total 1700 ml 450 ml Balance 600 ml -1150 ml 0 ml medications Current Medications Medications Dose Ordered Sig/Zaria Route Start Time Stop Time Status Last Admin Dose Admin Famotidine 20 mg Q12HR IV 01/07/25 10:00 UNV Diagnostic Test (Pha) 1 strip IQ4HR 01/07/25 08:00 Cancel Calcium Gluconate/ Sodium Chloride 50 ml @ 100 mls/hr Q30M IV 01/08/25 17:30 01/08/25 18:29 Cancel Sodium Chloride 10 ml QSHIFT@10,22 IV 01/24/25 22:00 02/09/25 09:07 10 ML Diagnostic Test (Pha) 1 strip Q4HR 01/26/25 14:00 UNV Enteral Nutritional Formula 1,000 ml 30ML/HR GT 01/29/25 18:15 02/05/25 06:11 1,000 ML Vancomycin HCl 0 ml @ 0 mls/hr UD IV 01/31/25 14:30 Cancel Ursodiol 300 mg BID NG 02/01/25 22:00 02/07/25 09:20 300 MG Vancomycin HCl 0 ml @ 0 mls/hr UD IV 02/03/25 16:45 Cancel Epoetin Paolo-epbx 10,000 unit TUTHSA SC 02/04/25 10:00 02/08/25 11:18 10,000 UNIT Albumin Human 100 ml @ 100 mls/hr PRN PRN IV 02/05/25 06:45 02/05/25 08:00 100 MLS/HR Diagnostic Test (Pha) 1 strip IQ4HR 02/06/25 12:00 02/09/25 11:45 1 STRIP Insulin Human Regular IQ4HR SC 02/06/25 12:00 02/09/25 11:40 4 UNITS Dextrose 50 ml UD PRN IV 02/06/25 10:00 Spironolactone 50 mg DAILY PO 02/07/25 10:00 02/07/25 09:22 50 MG Levofloxacin/ Dextrose 100 ml @ 100 mls/hr Q48H IV 02/07/25 15:45 UNV Cefepime HCl 50 ml @ 50 mls/hr Q24H IV 02/08/25 17:00 02/08/25 17:00 50 MLS/HR Hydralazine HCl 10 mg Q6HP PRN IV 02/08/25 04:45 02/09/25 10:08 10 MG Guaifenesin/ Dextromethorphan 10 ml Q6HP PRN PO 02/08/25 12:00 Morphine Sulfate 2 mg Q2HPRN PRN IV 02/08/25 12:00 02/09/25 10:47 2 MG Furosemide 40 mg DAILY IV 02/09/25 10:00 02/09/25 09:08 40 MG Labetalol HCl 5 mg Q2HPRN PRN IV 02/09/25 11:15 02/09/25 11:25 5 MG Enteral Nutritional Formula 240 ml TIDWM PO 02/09/25 18:00 laboratory and microbiology Laboratory Tests 02/09/25 05:00 02/08/25 05:40 Test 02/09/25 05:00 Range/Units Serum Glucose 189 H 74-106 mg/dL Assessment/Plan Impression Acute hypoxemic respiratory failure Pneumonia Anemia DKA Patient seen and examined in [facility] Events S/p extubation x2 Low oxygen requirements On 2 liters nasal cannula No distress Labs and imaging reviewed ABG reviewed Management Supplemental oxygen Titrate to maintain sats 90% or above Incentive spirometry Aspiration precautions Continue antibiotics F/u cultures Bronchodilators Monitor renal function Monitor electrolytes Supplement as needed Okay to downgrade from pulmonary standpoint DVT prophylaxis Critical care time 35 minutes Dietary Evaluation Review Recommendations by RD: Increase Calorie Intake Comments: Nutrition Recommendation: 1) Vital AF 1.2Cal @ 25ml/hr along with Pro-stat 1 pk BID. start @ 20ml/hr, increase 10ml/hr Q4H until goal is reached. TF @ goal volume along with propofol, IV D5wNS0.45%, and Pro-stat provides 1684 kcal (100% energy needs), 75gm protein (100% protein needs), 487ml free water. 2) TPN to meet 75% estimated needs if remains NPO 3) Bryce 1 pk BID for DFU Expected Outcomes/Goals: DFU to improve To maintain/gain weight To meet at least 75% estimated needs Fu 2-3 days Interpretation of weight loss: up to 5% in 1 month Muscle Mass (Severe): Mod to Severe Depletion Protein Calorie Malnutrition: Non-Severe Is there a minimum of two crit: Yes Plan discussed with: Patient PAM LEHMAN MD Feb 09, 2025 14:01
--- NOTE | 2025-02-09 15:07 | DVHPN2 ---
Subjective in bed resting Reviewed: Care Plan, H&P, Labs, Medications, Previous Orders, Radiology Changes from previous H/P or p: No Changes General: Per HPI Eyes: No Pain, No Vision change, No Conjunctivae inflammation, No Eyelid inflammation, No Other, No Redness ENT: No Ear pain, No Ear discharge, No Nose pain, No Nose discharge, No Nose congestion, No Mouth pain, No Mouth swelling, No Throat pain, No Throat swelling, No Other Cardiovascular: No Chest Pain, No Palpitations, No Orthopnea, No Paroxysmal Noc. Dyspnea, No Edema, No Lt Headedness, No Other Respiratory: No Cough, No Dry, No Shortness of breath, No SOB with excertion, No Wheezing, No Hemoptysis, No Pleuritic Pain, No Sputum, No Other Gastrointestinal: No Nausea, No Vomiting, No Abdominal Pain, No Diarrhea, No Constipation, No Melena, No Hematochezia, No Other Genitourinary: No Dysuria, No Frequency, No Incontinence, No Hematuria, No Retention; Other (Owens catheter in place) Musculoskeletal: No other, No neck pain, No shoulder pain, No arm pain, No back pain, No hand pain, No leg pain, No foot pain Skin: No Rash, No Lesions, No Jaundice, No Bruising, No Other Objective Vitals Vital Signs Date Time Temp Pulse Resp B/P (MAP) Pulse Ox O2 Delivery O2 Flow Rate FiO2 02/09/25 12:25 107 147/83 02/09/25 11:49 12 99 Nasal Cannula* 2 28 02/09/25 08:00 98.9 98.9 Intake/Output Intake and Output 02/09/25 07:00 Intake Total 1600 ml Output Total 2150 ml Balance -550 ml Intake Oral 950 ml IV Total 650 ml Output Urine Total 1250 ml Stool Total 900 ml General Appearance: Other (Confused and lethargic) HEENT: Atraumatic, PERRLA, EOMI, Mucous membr. moist/pink Neck: Supple Lungs: Clear to auscultation, Normal air movement Cardiovascular: Regular rate, Normal S1, Normal S2, No murmurs, Gallops, Rubs Abdomen: Normal bowel sounds, Soft, No tenderness Neuro: Other (Confused, unable to exam) Psych/Mental Status: Other (Lethargic) Medications Current Medications Medications Dose Ordered Sig/Zaria Route Start Time Stop Time Status Last Admin Dose Admin Famotidine 20 mg Q12HR IV 01/07/25 10:00 UNV Diagnostic Test (Pha) 1 strip IQ4HR 01/07/25 08:00 Cancel Calcium Gluconate/ Sodium Chloride 50 ml @ 100 mls/hr Q30M IV 01/08/25 17:30 01/08/25 18:29 Cancel Sodium Chloride 10 ml QSHIFT@10,22 IV 01/24/25 22:00 02/09/25 09:07 10 ML Diagnostic Test (Pha) 1 strip Q4HR 01/26/25 14:00 UNV Enteral Nutritional Formula 1,000 ml 30ML/HR GT 01/29/25 18:15 02/05/25 06:11 1,000 ML Vancomycin HCl 0 ml @ 0 mls/hr UD IV 01/31/25 14:30 Cancel Ursodiol 300 mg BID NG 02/01/25 22:00 02/07/25 09:20 300 MG Vancomycin HCl 0 ml @ 0 mls/hr UD IV 02/03/25 16:45 Cancel Epoetin Paolo-epbx 10,000 unit TUTHSA SC 02/04/25 10:00 02/08/25 11:18 10,000 UNIT Albumin Human 100 ml @ 100 mls/hr PRN PRN IV 02/05/25 06:45 02/05/25 08:00 100 MLS/HR Diagnostic Test (Pha) 1 strip IQ4HR 02/06/25 12:00 02/09/25 11:45 1 STRIP Insulin Human Regular IQ4HR SC 02/06/25 12:00 02/09/25 11:40 4 UNITS Dextrose 50 ml UD PRN IV 02/06/25 10:00 Spironolactone 50 mg DAILY PO 02/07/25 10:00 02/07/25 09:22 50 MG Levofloxacin/ Dextrose 100 ml @ 100 mls/hr Q48H IV 02/07/25 15:45 UNV Cefepime HCl 50 ml @ 50 mls/hr Q24H IV 02/08/25 17:00 02/08/25 17:00 50 MLS/HR Hydralazine HCl 10 mg Q6HP PRN IV 02/08/25 04:45 02/09/25 10:08 10 MG Guaifenesin/ Dextromethorphan 10 ml Q6HP PRN PO 02/08/25 12:00 Morphine Sulfate 2 mg Q2HPRN PRN IV 02/08/25 12:00 02/09/25 10:47 2 MG Furosemide 40 mg DAILY IV 02/09/25 10:00 02/09/25 09:08 40 MG Labetalol HCl 5 mg Q2HPRN PRN IV 02/09/25 11:15 02/09/25 11:25 5 MG Enteral Nutritional Formula 240 ml TIDWM PO 02/09/25 18:00 Laboratory Results Laboratory Tests 02/08/25 05:40 02/09/25 05:00 Chemistry Test 02/09/25 05:00 Calcium Level 8.3 mg/dL (8.7-10.4) L Urinalysis Test 01/08/25 18:27 01/10/25 11:50 01/22/25 17:30 Urine Osmolality 300 mOsm/kg Urine Creatinine 26.27 mg/dL (30.0-125.0) L Urine Protein/Creatinine Ratio 7.12 Urine Sodium 79 mmol/L (40-220) Urine Total Protein 187.1 mg/dL (1-14) H Urine Color Colorless (Yellow) Urine Clarity Turbid (Clear) H Urine pH 6.0 (5.0-9.0) Urine Specific Boyd 1.011 (1.001-1.035) Urine Protein 2+ (Negative) H Urine Ketones Negative (Negative) Urine Blood 3+ /uL (Negative) H Urine Nitrite Negative (Negative) Urine Bilirubin Negative (Negative) Urine Urobilinogen Normal mg/dL (Negative) Urine Leukocyte Esterase Negative /uL (Negative) Urine RBC 702 /hpf (0 - 3) Urine Microscopic WBC < 1 /HPF (0-3) Urine Squamous Epithelial Cells Few /hpf (<5) Urine Bacteria None seen /hpf (None Seen) Urine Hyaline Casts Few /lpf (0 - 2) Urine Mucus Few (None Seen) Urine Glucose 2+ mg/dL (Normal) H Microbiology Microbiology Date/Time Source Procedure Growth Status 02/07/25 13:52 Blood Blood Culture - Preliminary NO GROWTH AFTER 48 HOURS OF INCUBATION. Resulted 01/26/25 08:46 Urine - [place] Urine Culture - Final Complete 01/24/25 04:15 Sputum Gram Stain - Final Complete 01/24/25 04:15 Sputum Respiratory Culture - Final Complete 01/23/25 20:30 Pleural Fluid Gram Stain - Final Complete 01/23/25 20:30 Pleural Fluid Body Fluid Culture - Final Complete 01/19/25 16:06 Nose MRSA Screen - Final Complete 01/08/25 10:37 Stool Stool Culture - Final Complete 01/08/25 10:37 Stool Shiga Toxin I & II - Final Complete Assessment/Plan Assessment/Plan Neurology # acute metabolic encephalopathy likely due to DKA vs Sepsis, improving - head CT from 01/07/2025: No acute territorial infarct, intracranial hemorrhage or mass effect - head CT from 01/19/2025: No acute intracranial abnormality - monitor Cardiovascular # runs of AFib on EKG # prolonged QTC # Essential hypertension - avoiding QT prolonging drugs - echocardiogram from 07/20/2022: Overall preserved ventricular systolic function. EF 60%. Grade 1 diastolic dysfunction. - increased amlodipine to 10mg qD - repeat echo: Mild LVH and mild LV diastolic dysfunction. LVEF 65%. Slightly dilated left atrium. Moderately dilated RV and RA. Moderate degree pulmonary hypertension. Normal valves and no effusion. - monitor Respiratory # Community acquired pneumonia, Gram-positive versus Gram-negative # Acute hypoxic respiratory failure due to above, intubated and mechanically ventilated # moderate-large b/l Pleural effusions # moderate pulmonary hypertension with RVSP 46 mmHg - CXR 01/08/25: Bibasilar atelectasis or pneumonia. - CXR 01/20/25: Patchy bilateral airspace disease, [id number], slightly increased - previously on meropenem and vancomycin, stopped on 01/12/2025 - started on aztreonam on 01/17/2025, linezolid 01/16/2025 - discontinued aztreonam and linezolid on 01/20/2025 - started cefepime, vancomycin and metronidazole on 01/20/2025 - discontinued vancomycin 01/23/2025 - started linezolid, however, dc'ed linezolid on d/t thrombocytopenia, resumed vancomycin on 01/31 - s/p thoracentesis with 900 mL of fluid removed on 01/23/2025 GI # Acute intractable abdominal pain (01/21/25), improved # cholestasis of critical illness # Microcytic anemia possibly 2' to ?LGI bleed; Hb 7.8 # Moderate abdominopelvic ascites # Peptic ulcer prophylaxis # gallbladder hydrops # hypokalemia - stool occult blood positive - GI consult - CT abdomen pelvis from 01/07/2025: Nonspecific periportal edema. Incidental finding. -Pantoprazole 40 mg IV daily - serum lipase 113 - repeat CT abdomen pelvis (01/22/25): Moderate to large bilateral pleural effusions with patchy and consolidative infiltrates in the lung bases likely a combination of pneumonia and atelectasis.mLow to moderate volume abdominopelvic ascites and diffuse subcutaneous edema suggestive of anasarca. Moderate right hydronephrosis without visualization of hydroureter or obstructing calculi. This appearance is new versus CT scan dated 01/07/2025. Gallbladder hydrops without visualization of gallstones. This appearance may indicate acalculous cholecystitis. Fluid-filled colon with multiple air-fluid levels present, possibly related to diarrheal illness. No evidence of bowel obstruction, acute appendicitis, or other acute process in the abdomen or pelvis. 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 Moderate right hydronephrosis without visualization of hydroureter or obstructing calculi. This appearance is new versus CT scan dated 01/07/2025. Gallbladder hydrops without visualization of gallstones. This appearance may indicate acalculous cholecystitis. Fluid- filled colon with multiple air-fluid levels present, possibly related to diarrheal illness. No evidence of bowel obstruction, acute appendicitis, or other acute process in the abdomen or pelvis. - urology consulted - reconsulted nephrology - serum parathyroid hormone 185.9, corrected calcium 8.7 - currently running Lasix drip started on 02/04/25 Infectious disease # bilateral lower extremity cellulitis # left lower extremity diabetic foot ulcer on the plantar aspect growing Staph aureus # Sepsis due to above # left heel pressure ulcer # ruled out DVT # Fungal cutaneous infection in b/l groin # candidal balanitis with superimposed necrosis - MRI from 01/09/2025 shows Mild diffuse subcutaneous soft-tissue edema; possibly cellulitis. No bone marrow edema is present to suggest fracture or acute osteomyelitis. - bilateral lower extremity arterial Doppler: No hemodynamically significant stenosis based on peak systolic velocity criteria. - bilateral lower extremity venous Doppler: No right or left femoropopliteal venous thrombosis - discontinued aztreonam and linezolid on 01/20/2025 - started cefepime, vancomycin and metronidazole on 01/20/2025 - podiatry on board - left foot MRI: No MR evidence of osteomyelitis. Cellulitis and lateral 4 for deep of the 5th metatarsal bone were wound is noted overlying dressing. Edema in the intrinsic muscle of the foot may reflect sequelae of denervation, or myositis. - discontinued vancomycin 01/23/2025, started patient on daptomycin on 01/23/2025 - discontinued daptomycin, vancomycin and cefepime on 01/24/2025 - started linezolid on 01/24/2025 - discontinued linezolid on 01/31/2025 owing to dropping platelet count - started IV vancomycin per pharmacy after approval from Nephrology to have the dose timed with dialysis sessions on 01/31/25 - topical nystatin - added IV ceftriaxone 02/07/2025 Hem/onc # microcytic anemia # thrombocytosis likely secondary to sepsis # thrombocytopenia, worsening - s/p 4 PRBC transfusion - GI on board - monitor Endocrine # DKA, now resolved # recurrent episodes of hypoglycemia # severe protein calorie malnutrition # diabetic/starvation ketoacidosis, improved - discontinued lispro - holding insulin Lantus as patient continues to get hypoglycemic - mild sliding scale insulin - Accu-Cheks q4hr Diet Nepro carb steady with ProStat tube feedings Lines - right PICC line paced on 01/24/2025 - right-sided Dean catheter placed on 01/24/2025 - Owens catheter exchanged on 01/26/2025 Drips Lasix at 20 milligrams/hour KCl Transeferred to OXANA 01/23/25 Intubated on 01/06/25 Extubated on 01/12/25 Intubated again on 01/24/25 Extubated on 02/05/2025 critical care time excluding procedures was 56 mins Plan discussed with: Patient My Orders Orders - GUNNAR TURCIOS MD Procedure Category Date Status Time Labetalol Hcl PHA 02/09/25 In Process (Labetalol Hcl) 11:15 Nutritional PHA 02/09/25 In Process Supplements (Ensure 18:00 Date of Service: Feb 09, 2025 Billing Provider: GUNNAR TURCIOS MD Common Visit Codes: 91781-HACGXDDH CARE 30-74 MIN GUNNAR TURCIOS MD Feb 09, 2025 15:07
[2025-02-09] MEDS: ENSURE CLEAR Mixed Berry 8oz Carton PO SCH (18:23)
[2025-02-10] VITALS (41 sets, daily range): BP systolic 134–187; BP diastolic 63–96; PULSE 96–117; RESP 6–21; TEMP 98.3–99.1; O2SAT 85–100
[2025-02-10 07:23] LABS: Anion Gap 13 (5-15); Carbon Dioxide 24 mmol/L (20-31); Hematocrit 26.0 % (41.0-53.0); Hemoglobin 8.5 g/dL (13.5-17.5); Mean Corpuscular Hemoglobin 27.7 pg (28.0-32.0); Mean Corpuscular Volume 84.8 fL (80.0-100.0); Sodium 144 mmol/L (136-145)
[2025-02-10 07:29] LABS: BUN/Creatinine Ratio 13.8 (10.0-20.0)
[2025-02-10 07:30] LABS: Blood Urea Nitrogen 26 mg/dL (9-23); Calcium 8.3 mg/dL (8.7-10.4); Chloride 107 mmol/L (98-107); Glucose 56 mg/dL (74-106); Potassium 3.1 mmol/L (3.5-5.1)
[2025-02-10] MEDS: POTASSIUM EFFERVESENT TAB 25 MEQ PO ONE (09:32)
[2025-02-10 10:09] LABS: Anisocytosis Slight; Total Cells Counted 100.0 (100)
--- NOTE | 2025-02-10 12:00 | DVHPN2 ---
Progress Note Date Seen: Feb 10, 2025 Resident Creating Document: MARTI POWELL RESIDENT Medical Necessity Reason Pt with a Central, PICC or Fol: Yes The following are medically ne: Central Line, Jones Catheter Reason for jones catheter: Strict I&O Subjective Review of Systems 02/06-patient is extubated, on room air, A&O x1-not oriented to place, reports that he has at home. Urine output 1700 cc per 24 hours. Phosphate 0.9. BUN/creatinine stable. Hemodialysis today. 02/07 - pt is alert, AxO2, hallucinating, wbc trendig up, Hb down. 1 PRBC ordered. DC IV lasix drip after transfusion and switch to iV BID 02/10-patient seen, A&O x2, not confused, not hallucinating, continue Lasix 40 mg daily. Objective vital signs Vital Sign Date Time Temp Pulse Resp B/P (MAP) Pulse Ox O2 Delivery O2 Flow Rate FiO2 02/10/25 11:15 98 14 100 02/10/25 10:00 Nasal Cannula* 2 28 02/10/25 08:15 98.9 98.9 Total Intake and Output 02/09/25 02/09/25 02/10/25 15:00 23:00 07:00 Intake Total 475 ml 750 ml 480 ml Output Total 650 ml 600 ml Balance 475 ml 100 ml -120 ml medications Current Medications Medications Dose Ordered Sig/Zaria Route Start Time Stop Time Status Last Admin Dose Admin Famotidine 20 mg Q12HR IV 01/07/25 10:00 UNV Diagnostic Test (Pha) 1 strip IQ4HR 01/07/25 08:00 Cancel Calcium Gluconate/ Sodium Chloride 50 ml @ 100 mls/hr Q30M IV 01/08/25 17:30 01/08/25 18:29 Cancel Sodium Chloride 10 ml QSHIFT@10,22 IV 01/24/25 22:00 02/10/25 09:32 10 ML Diagnostic Test (Pha) 1 strip Q4HR 01/26/25 14:00 UNV Enteral Nutritional Formula 1,000 ml 30ML/HR GT 01/29/25 18:15 02/05/25 06:11 1,000 ML Vancomycin HCl 0 ml @ 0 mls/hr UD IV 01/31/25 14:30 Cancel Ursodiol 300 mg BID NG 02/01/25 22:00 02/10/25 09:33 300 MG Vancomycin HCl 0 ml @ 0 mls/hr UD IV 02/03/25 16:45 Cancel Epoetin Paolo-epbx 10,000 unit TUTHSA SC 02/04/25 10:00 02/08/25 11:18 10,000 UNIT Albumin Human 100 ml @ 100 mls/hr PRN PRN IV 02/05/25 06:45 02/05/25 08:00 100 MLS/HR Diagnostic Test (Pha) 1 strip IQ4HR 02/06/25 12:00 02/10/25 08:00 1 STRIP Insulin Human Regular IQ4HR SC 02/06/25 12:00 02/10/25 09:37 4 UNITS Dextrose 50 ml UD PRN IV 02/06/25 10:00 Spironolactone 50 mg DAILY PO 02/07/25 10:00 02/10/25 09:33 50 MG Levofloxacin/ Dextrose 100 ml @ 100 mls/hr Q48H IV 02/07/25 15:45 UNV Cefepime HCl 50 ml @ 50 mls/hr Q24H IV 02/08/25 17:00 02/09/25 17:22 50 MLS/HR Guaifenesin/ Dextromethorphan 10 ml Q6HP PRN PO 02/08/25 12:00 Morphine Sulfate 2 mg Q2HPRN PRN IV 02/08/25 12:00 02/10/25 09:34 2 MG Furosemide 40 mg DAILY IV 02/09/25 10:00 02/10/25 09:33 40 MG Labetalol HCl 5 mg Q2HPRN PRN IV 02/09/25 11:15 02/10/25 04:57 5 MG Enteral Nutritional Formula 240 ml TIDWM PO 02/09/25 18:00 02/10/25 08:00 240 ML Examination Patient lying in bed, status post extubation, on room air General: Sclerae icterus, malnourished, mucosae are moist Cardiovascular: Tachycardic but Regular S1 and S2. No murmurs, gallops or rubs. No JVD elevation. Trace resolving pedal edema Respiratory: Decreased bilateral breath sounds, no wheezing or crackles heard. Abdomen: Soft, nontender, nondistended, normoactive bowel sounds, no rebound tenderness, no organomegaly, no masses Genitourinary: Jones seen MSK/skin: Mobilizes 4 limbs. Skin is dry and warm Neurological: No motor, no sensitive deficits, normal speech. Pupils are isocoric and reactive. Psych/Mental Status: Denies hallucinations, following commands, A&O x2 laboratory and microbiology Laboratory Tests 02/10/25 05:08 Test 02/10/25 05:08 Range/Units Serum Glucose 56 #L 74-106 mg/dL Microbiology Date/Time Source Procedure Growth Status 02/07/25 13:52 Blood Blood Culture - Preliminary NO GROWTH AFTER 48 HOURS OF INCUBATION. Resulted 01/26/25 08:46 Urine - [place] Urine Culture - Final Complete 01/24/25 04:15 Sputum Gram Stain - Final Complete 01/24/25 04:15 Sputum Respiratory Culture - Final Complete 01/23/25 20:30 Pleural Fluid Gram Stain - Final Complete 01/23/25 20:30 Pleural Fluid Body Fluid Culture - Final Complete 01/19/25 16:06 Nose MRSA Screen - Final Complete 01/08/25 10:37 Stool Stool Culture - Final Complete 01/08/25 10:37 Stool Shiga Toxin I & II - Final Complete Labs and/or images reviewed: Labs reviewed by me, Image(s) reviewed by me Problem List/Assessment/Plan Problem List/Assessment/Plan Acute kidney injury superimposed Chronic Kidney Disease stage IIIB secondary hemodynamic mediated ATN, FeNa > 2% - needing dialysis Acute hypoxic respiratory failure, patient extubated and then reintubated Hypokalemia Anemia of chronic kidney disease DKA-resolved Uncontrolled diabetes mellitus Anasarca elevated bilirubin, ALK phos thrombocytopenia Severe protein calorie malnutrition Plan: BUN/creatinine stable, urine output stable, holding off HD at this time. Repeat BNP in p.m. if BUN/creatinine/GFR remains stable we will consider discontinuing Dean catheter. Continue Lasix 40 mg IV daily Continue IV antibiotics Continue Spironolactone 50mg daily no heparin Epogen 3x a week Avoid hypotension poor overall prognosis Plan discussed with patient in which all questions have been answered Case discussed with Dr. Mandel Plan discussed with: Patient Dietary Evaluation Review Recommendations by RD: Increase Calorie Intake Comments: Nutrition Recommendation: 1) Vital AF 1.2Cal @ 25ml/hr along with Pro-stat 1 pk BID. start @ 20ml/hr, increase 10ml/hr Q4H until goal is reached. TF @ goal volume along with propofol, IV D5wNS0.45%, and Pro-stat provides 1684 kcal (100% energy needs), 75gm protein (100% protein needs), 487ml free water. 2) TPN to meet 75% estimated needs if remains NPO 3) Bryce 1 pk BID for DFU Expected Outcomes/Goals: DFU to improve To maintain/gain weight To meet at least 75% estimated needs Fu 2-3 days Interpretation of weight loss: up to 5% in 1 month Muscle Mass (Severe): Mod to Severe Depletion Protein Calorie Malnutrition: Non-Severe Is there a minimum of two crit: Yes MARTI POWELL RESIDENT Feb 10, 2025 12:00
[2025-02-10 14:20] LABS: Anion Gap 9 (5-15); Carbon Dioxide 26 mmol/L (20-31); Sodium 143 mmol/L (136-145)
[2025-02-10 14:21] LABS: Chloride 108 mmol/L (98-107); Potassium 3.1 mmol/L (3.5-5.1)
[2025-02-10 14:22] LABS: Calcium 8.0 mg/dL (8.7-10.4)
[2025-02-10 14:26] LABS: BUN/Creatinine Ratio 13.4 (10.0-20.0)
[2025-02-10 14:27] LABS: Blood Urea Nitrogen 28 mg/dL (9-23); Glucose 161 mg/dL (74-106)
[2025-02-10] MEDS: POTASSIUM CHL 20MEQ/100ML 100 ML IV ONE (16:26)
--- NOTE | 2025-02-10 17:23 | DVHPN2 ---
Progress Note - Dictate Date Seen: Feb 10, 2025 Medical Necessity Reason Pt with a Central, PICC or Fol: Yes The following are medically ne: Central Line, Jones Catheter Reason for jones catheter: Strict I&O Subjective No new complaints Patient is tolerating diet Patient is awake alert Liver enzymes are trending down including his alkaline phosphatase Hemoglobin is up to 8.5; renal function stable Patient has received 4 units PRBC during this hospitalization vital signs Vital Sign Date Time Temp Pulse Resp B/P (MAP) Pulse Ox O2 Delivery O2 Flow Rate FiO2 02/10/25 16:00 101 02/10/25 16:00 8 165/89 (114) 02/10/25 16:00 Nasal Cannula* 2 28 02/10/25 15:00 95 02/10/25 12:00 99.1 99.1 Total Intake and Output 02/09/25 02/09/25 02/10/25 15:00 23:00 07:00 Intake Total 475 ml 750 ml 480 ml Output Total 650 ml 600 ml Balance 475 ml 100 ml -120 ml medications Current Medications Medications Dose Ordered Sig/Zaria Route Start Time Stop Time Status Last Admin Dose Admin Famotidine 20 mg Q12HR IV 01/07/25 10:00 UNV Diagnostic Test (Pha) 1 strip IQ4HR 01/07/25 08:00 Cancel Calcium Gluconate/ Sodium Chloride 50 ml @ 100 mls/hr Q30M IV 01/08/25 17:30 01/08/25 18:29 Cancel Sodium Chloride 10 ml QSHIFT@10,22 IV 01/24/25 22:00 02/10/25 09:32 10 ML Diagnostic Test (Pha) 1 strip Q4HR 01/26/25 14:00 UNV Vancomycin HCl 0 ml @ 0 mls/hr UD IV 01/31/25 14:30 Cancel Ursodiol 300 mg BID NG 02/01/25 22:00 02/10/25 09:33 300 MG Vancomycin HCl 0 ml @ 0 mls/hr UD IV 02/03/25 16:45 Cancel Epoetin Paolo-epbx 10,000 unit TUTHSA SC 02/04/25 10:00 02/08/25 11:18 10,000 UNIT Albumin Human 100 ml @ 100 mls/hr PRN PRN IV 02/05/25 06:45 02/05/25 08:00 100 MLS/HR Diagnostic Test (Pha) 1 strip IQ4HR 02/06/25 12:00 02/10/25 16:27 1 STRIP Insulin Human Regular IQ4HR SC 02/06/25 12:00 02/10/25 12:09 6 UNITS Dextrose 50 ml UD PRN IV 02/06/25 10:00 Spironolactone 50 mg DAILY PO 02/07/25 10:00 02/10/25 09:33 50 MG Levofloxacin/ Dextrose 100 ml @ 100 mls/hr Q48H IV 02/07/25 15:45 UNV Cefepime HCl 50 ml @ 50 mls/hr Q24H IV 02/08/25 17:00 02/09/25 17:22 50 MLS/HR Guaifenesin/ Dextromethorphan 10 ml Q6HP PRN PO 02/08/25 12:00 Morphine Sulfate 2 mg Q2HPRN PRN IV 02/08/25 12:00 02/10/25 15:01 2 MG Furosemide 40 mg DAILY IV 02/09/25 10:00 02/10/25 09:33 40 MG Labetalol HCl 5 mg Q2HPRN PRN IV 02/09/25 11:15 02/10/25 12:25 5 MG Enteral Nutritional Formula 240 ml TIDWM PO 02/09/25 18:00 02/10/25 12:00 240 ML objective Patient lying in bed, status post extubation, on 2 l nc General: Sclerae icterus, malnourished, mucosae are moist Cardiovascular: Regular S1 an S2 rrr. Trace resolving pedal edema Respiratory: clear Abdomen: Soft, nontender, nondistended, normoactive bowel sounds, no rebound tenderness, no organomegaly, no masses Genitourinary: Jones seen MSK/skin: Mobilizes 4 limbs. Skin is dry and warm Neurological: No motor, no sensitive deficits, normal speech. Pupils are isocoric and reactive. laboratory and microbiology Laboratory Tests 02/10/25 14:00 02/10/25 05:08 Test 02/10/25 14:00 Range/Units Serum Glucose 161 #H 74-106 mg/dL Problems(with codes): (1) Elevated AFP (2) Fluid overload (3) Gallstones (4) Cannabinoid hyperemesis syndrome (5) BPH (benign prostatic hyperplasia) (6) Intractable vomiting (7) Coffee ground emesis (8) Diabetic keto-acidosis Prognosis Plan Advance to soft diet if tolerated Protonix 40 mg IV q.12 hours Continue to monitor lab tests and supportive care Overall patient is clinically improving; patient is a modified DNR Dietary Evaluation Review Recommendations by RD: Increase Calorie Intake Comments: Nutrition Recommendation: 1) Vital AF 1.2Cal @ 25ml/hr along with Pro-stat 1 pk BID. start @ 20ml/hr, increase 10ml/hr Q4H until goal is reached. TF @ goal volume along with propofol, IV D5wNS0.45%, and Pro-stat provides 1684 kcal (100% energy needs), 75gm protein (100% protein needs), 487ml free water. 2) TPN to meet 75% estimated needs if remains NPO 3) Bryce 1 pk BID for DFU Expected Outcomes/Goals: DFU to improve To maintain/gain weight To meet at least 75% estimated needs Fu 2-3 days Interpretation of weight loss: up to 5% in 1 month Muscle Mass (Severe): Mod to Severe Depletion Protein Calorie Malnutrition: Non-Severe Is there a minimum of two crit: Yes Plan discussed with: Other (None) LETTY GENTILE MD Feb 10, 2025 17:23
[2025-02-10 18:27] LABS: Anion Gap 11 (5-15); BUN/Creatinine Ratio 12.9 (10.0-20.0); Carbon Dioxide 23 mmol/L (20-31); Potassium 3.7 mmol/L (3.5-5.1); Sodium 142 mmol/L (136-145)
[2025-02-10 19:02] LABS: Alanine Aminotransferase < 9 U/L (7-40); Albumin 2.7 g/dL (3.2-4.8); Alkaline Phosphatase > 2300 U/L (46-116); Bilirubin, Total 2.1 mg/dL (0.2-1.0); Blood Urea Nitrogen 26 mg/dL (9-23); Calcium 7.7 mg/dL (8.7-10.4); Chloride 108 mmol/L (98-107); Glucose 156 mg/dL (74-106); Total Protein 5.7 g/dL (5.7-8.2)
--- NOTE | 2025-02-10 21:01 | DVHPNRES ---
Progress Note Date Seen: Feb 10, 2025 Resident Creating Document: ANABELL ORDOÑEZ RESIDENT Medical Necessity Reason Pt with a Central, PICC or Fol: Yes The following are medically ne: Central Line, Jones Catheter Reason for jones catheter: Strict I&O Subjective Review of Systems Patient is a 44-year-old male with known history of type 1 diabetes mellitus who presented on 01/06/2025 via EMS for altered level of consciousness. Per EMS, the patient was found unresponsive with a blood glucose of 931 and received 400 cc IV fluids on route. On arrival he exhibited hypoxia, generalized weakness, increased work of breathing necessitating intubation and mechanical ventilation. Patient was started on IV insulin drip, Zosyn and vancomycin with bicarbonate for severe acidosis. A right femoral central line, midline and peripheral IVs were also placed. Of note, patient has a history of poor adherence to his insulin therapy. Per patient's father, patient lives alone in a trailer and had not been heard from since 01/02/2025. Patient was last hospitalized at the [facility] in November 2024 for DKA. On 01/07/2025, patient developed lip swelling while still intubated, chart review revealed a penicillin allergy. Zosyn was discontinued and patient was treated with methylprednisolone and transitioned to meropenem. Nephrology was consulted for RADHA and hypernatremia. A 01/10/2025, patient had begun to improve and was weaned off sedation and was extubated on 01/12/2025 and transferred telemetry. Antibiotics were discontinued at that time due to uncertainty about the cause of leukocytosis (steroids versus infection). However, WBCs continued to trend upwards and the patient developed low-grade fevers, subsequently restarted on linezolid and aztreonam. Patient has bilateral diabetic foot ulcers, left side more advanced than right. MRI of bilateral extremities shows mild subcutaneous edema, possibly cellulitis but no signs of osteomyelitis. Patient was also noted to have a pressure related ulcer to the left heel. Lower extremity arterial Doppler showed no significant stenosis. Vascular surgery evaluated the ulcers but recommended no interventions at this time. Podiatry already on board. 01/20/2025: Held insulin Lantus, discontinued lispro, mild sliding scale q.4 hours only. Started IV fluconazole for candidal infection in the groin. Podiatry reconsulted for evaluation of bilateral lower extremity ulcers. GI consult for anemia and positive stool occult blood. Discontinued linezolid and aztreonam, started on cefepime, vancomycin and metronidazole. 01/21/25: notes improved but continued nausea, new onset abdominal pain -05/02, localized to mid abdomen. Patient refused MRI owing to abdominal pain, we will reattempt tomorrow. Added metoclopramide qD along with norco and morphine as needed. Blood glucose in 290s, resumed lantus 7units qAM, however, dropping blood sugar by 4pm therefore discontinued lantus again. Pt refuses to eat and has severe aversion to food 01/22/25: improved abdominal pain today 6-01/30, agreeable to CT abdomen however still refusing MRI L foot. Plan to reattempt tomorrow. new moderate R sided hydronephrosis noted, urology consulted. denies dyspnea, sob. improving nausea. 01/23/2025: Patient notes feeling weaker than yesterday, denies abdominal pain. On physical exam decreased breath sounds more prominent on the left side and some crackles bibasilar. Discontinued vancomycin and started patient on daptomycin. Repeated left foot MRI which showed cellulitis in the lateral 4 for deep to the 5th metatarsal bone marrow wound is noted with overlying dressing, no evidence of osteomyelitis. IV furosemide was increased to 40 mg b.i.d. and patient was transferred to D . 01/24/2025: Overnight patient was intubated due to increasing respiratory distress, patient also underwent thoracentesis with 900 mL of fluid removed on the left side. For starvation/diabetic ketoacidosis, patient was started on an insulin drip and D10, gap was closed and bicarb was stabilized at 20. Blood glucose was 100 with a insulin drip was stopped, patient was started on D5 water at 50 cc/hours. Nephrology increased IV Lasix to 80 mg b.i.d. along with plan for renal replacement therapy tentatively in the p.m.. 01/25/2025- patient received right IJ Dean cath HD cath yesterday. Dialysis done 1 L removed. Today patient continues to have right upper extremity edema 2+. Left upper extremity is restricted has trace pitting edema and restricted due to history of DVT. Patient also has 1 to trace pedal edema bilaterally. Up to mid shins. Patient is not requiring any vasopressors. Patient is ventilated and due to acute hypoxic respiratory failure. Patient has no p.o. intake due to large gastric bubble and possible gastroparesis from prolonged uncontrolled diabetes. We will do TPN via PICC line now and hold off any enteral feeds. Continue IV antibiotics. Patient is anemic less than 7, 1 unit PRBC. Tentative plan to get EPO with HD, which may help. No sources of obvious hemorrhage. We are continuing D5 W for hypernatremia. We will do some education vacation today and if goes well possible CPAP trials tomorrow. We will continue sliding scale insulin Q 2. Patient antibiotics IV is linezolid only. 01/26/2025-no dialysis today. No lower extremity edema. Right upper extremity edema looks improved. Today doing sedation vacation and CPAP trial. Some electrolyte abnormalities not concerning nephrology reviewed. Patient on dialysis but still makes some urine 150 dark brown color. Patient is getting broad-spectrum antibiotics. Clinimix. Sedation vacation but otherwise patient was on Versed and fentanyl. Heart rate upper end of normal in the 100s. Blood pressure stable. No vasopressors. We will decrease Accu-Cheks to q.4. Decrease D5 to 30, being used for recurrent hypoglycemia. Otherwise continue primary team's plan. 01/27/2025: Patient seen and examined at bedside. Noted to have fluid overload, severe scrotal swelling, 2+ lower extremity nonpitting edema up to the thighs along with scleral edema was noted. Urine output of 325 mL in the past 24 hours. Undergoing dialysis today. Had an apneic episode during CPAP trial on 01/26/2025. 01/28/2025: Patient seen and examined at bedside. Minimal improvement in edema, s/p dialysis yesterday on 01/27/2025. Continues to have nonpitting edema up to knees along with scleral and scrotal edema. Jaundiced appearance noted. 01/29/25: Patient seen and examined at bedside. improved UOP since yesterday, worsening inspiratory crackles and LE edema. completed dialysis today, required 4mcg/hr of norepinephrine during dialysis. noted to have scabbed lesions on the penis. 01/30/2025: Patient seen and examined at bedside, improved lower extremity edema. Detailed discussions held with patient's parents at bedside. 01/31/2025: Patient seen and examined [place] [id number] [place]. Discontinued linezolid today on day 8 of treatment, started IV vancomycin per pharmacy after approval from Nephrology to have the dose timed with dialysis sessions. Repleted potassium with 40 mEq KCl rider. Urine output 100 mL in the last 24 hours, 700 mL of stool output via rectal tube. 02/01/25 patient remains intubated. Sedated. Sedation includes fentanyl 175 Versed 8. Continues to getting IV antibiotics broad-spectrum. Patient on ventilator a.c. 18/450/30%/5.0. Fecal tube with liquid output. Jones scant urine dark brown. Left upper extremity with pitting edema, dry other extremities. Tachycardic 114 sinus tachycardia. Continue primary team's plan of IV antibiotics, ongoing bilateral effusions, continuing dialysis with Nephrology. Platelets stable.. We will continue primary team's plan. No changes today. 02/02/2025 doing trial of CPAP patient not following commands. He is also on HD. Pulmonology bedside recommending against Versed. Likely sedatives we will still be the system as patient is not making any urine. We will try sedation vacation as long as patient can tolerate it.. His pupils are minimally responsive to light. But cough and gag reflex are present. Currently Versed fentanyl and Precedex are turned off. He is on spontaneous breathing trial CPAP and doing well. We will continuing IV antibiotics. Multiple lab abnormalities high ALP, thrombocytopenia. Patient is not on any heparin for concern for hit. Likely liver failure, GI is onboard giving ursodeoxycholic acid. We need to get GGT, PT INR PTT. And continuing further evaluation. Primary team to continue management tomorrow. 02/03/25: Liver function continues to decline. L lower extremity plantar wound with necrotic eschar noted, scabbing penile lesions persistent. resumed vancomycin scheduled with dialysis. scheduled family meeting for tomorrw. 02/04/2025: Bilirubin and alkaline phosphatase trending upwards, patient looking more jaundiced than previous days. Scheduled for dialysis today, detailed discussion held with patient's father Mr. Rayshawn devine, decided goals of care DNR. 02/05/2025: Patient completed CPAP trial, successfully extubated. Liver function continues to worsen. Called to inform patient's father about patient's extubation, per father he will come in the a.m. for repeat family meeting. 02/06/25: Patient seen and examined at bedside, blood glucose dropped to 32, changed insulin to a mild sliding scale. Serum phosphorus 0.9, repleted. Liver function minimally improving. Urine output 1700 mL over 24 hours. Details and care plan discussed with patient's father Mr. Dockery at bedside. 02/07/25: WBCs trending upwards, overnight hemoglobin dropped to 6.5: S/p 1 PRBC transfusion, added IV ceftriaxone. Patient continues to be noncompliant, pulled out NG tube x7, tried pulling out Dean catheter. Currently on Lasix 7 milligrams/minute, once drip finishes, we will be transitioned to IV Lasix 40 mg b.i.d. ordered swallow evaluation. 02/10/25: Patient seen and exmained at bedside, improved appetite. progressing with PT. downgraded to OXANA Objective vital signs Vital Sign Date Time Temp Pulse Resp B/P (MAP) Pulse Ox O2 Delivery O2 Flow Rate FiO2 02/10/25 20:00 13 100 Nasal Cannula* 2 28 02/10/25 20:00 104 02/10/25 18:35 172/92 02/10/25 18:00 99.1 99.1 Total Intake and Output 02/09/25 02/09/25 02/10/25 15:00 23:00 07:00 Intake Total 475 ml 750 ml 480 ml Output Total 650 ml 600 ml Balance 475 ml 100 ml -120 ml medications Current Medications Medications Dose Ordered Sig/Zaria Route Start Time Stop Time Status Last Admin Dose Admin Famotidine 20 mg Q12HR IV 01/07/25 10:00 UNV Diagnostic Test (Pha) 1 strip IQ4HR 01/07/25 08:00 Cancel Calcium Gluconate/ Sodium Chloride 50 ml @ 100 mls/hr Q30M IV 01/08/25 17:30 01/08/25 18:29 Cancel Sodium Chloride 10 ml QSHIFT@10,22 IV 01/24/25 22:00 02/10/25 09:32 10 ML Diagnostic Test (Pha) 1 strip Q4HR 01/26/25 14:00 UNV Vancomycin HCl 0 ml @ 0 mls/hr UD IV 01/31/25 14:30 Cancel Ursodiol 300 mg BID NG 02/01/25 22:00 02/10/25 09:33 300 MG Vancomycin HCl 0 ml @ 0 mls/hr UD IV 02/03/25 16:45 Cancel Epoetin Paolo-epbx 10,000 unit TUTHSA SC 02/04/25 10:00 02/08/25 11:18 10,000 UNIT Albumin Human 100 ml @ 100 mls/hr PRN PRN IV 02/05/25 06:45 02/05/25 08:00 100 MLS/HR Diagnostic Test (Pha) 1 strip IQ4HR 02/06/25 12:00 02/10/25 20:00 1 STRIP Insulin Human Regular IQ4HR SC 02/06/25 12:00 02/10/25 20:45 8 UNITS Dextrose 50 ml UD PRN IV 02/06/25 10:00 Spironolactone 50 mg DAILY PO 02/07/25 10:00 02/10/25 09:33 50 MG Levofloxacin/ Dextrose 100 ml @ 100 mls/hr Q48H IV 02/07/25 15:45 UNV Cefepime HCl 50 ml @ 50 mls/hr Q24H IV 02/08/25 17:00 02/10/25 17:57 50 MLS/HR Guaifenesin/ Dextromethorphan 10 ml Q6HP PRN PO 02/08/25 12:00 Morphine Sulfate 2 mg Q2HPRN PRN IV 02/08/25 12:00 02/10/25 18:05 2 MG Furosemide 40 mg DAILY IV 02/09/25 10:00 02/10/25 09:33 40 MG Labetalol HCl 5 mg Q2HPRN PRN IV 02/09/25 11:15 02/10/25 12:25 5 MG Enteral Nutritional Formula 240 ml TIDWM PO 02/09/25 18:00 02/10/25 18:00 240 ML Tramadol HCl 50 mg Q6HP PRN PO 02/10/25 18:00 Examination General Appearance: Intubated and sedated. Malnourished, in mild distress. Jaundiced Head Exam: Normal inspection. No vision in right eye, decreased vision in left eye, minimally reactive pupils. Scleral edema Pulmonary/Respiratory: Chest non-tender. decreased bilateral breath sounds, no crackles, no wheezing. Cardiovascular/Chest: Tachycardic. No murmurs. No JVD. Abdominal Exam: Normal bowel sounds. Soft. normal abdomen, no visible veins, nontender No hepatospenomegaly. No masses Lower extremities: 2+ nonpitting lower extremity edema up to the thighs. Left heel pressure ulcer noted. Multiple diabetic foot ulcers on bilateral feet, largest 1 noted on left plantar foot with a dark black necrotic appearance Thoughts/Psych: Normal thought pattern. Appropriate mood and affect Skin Exam: improving groin lesions, redness noted along right gluteal area, scrotal swelling. penile scabs laboratory and microbiology Laboratory Tests 02/10/25 17:50 02/10/25 05:08 Test 02/10/25 17:50 Range/Units Serum Glucose 156 H 74-106 mg/dL Microbiology Date/Time Source Procedure Growth Status 02/07/25 13:52 Blood Blood Culture - Preliminary NO GROWTH AFTER 72 HOURS OF INCUBATION. Resulted 01/26/25 08:46 Urine - Jones Port Urine Culture - Final Complete 01/24/25 04:15 Sputum Gram Stain - Final Complete 01/24/25 04:15 Sputum Respiratory Culture - Final Complete 01/23/25 20:30 Pleural Fluid Gram Stain - Final Complete 01/23/25 20:30 Pleural Fluid Body Fluid Culture - Final Complete 01/19/25 16:06 Nose MRSA Screen - Final Complete 01/08/25 10:37 Stool Stool Culture - Final Complete 01/08/25 10:37 Stool Shiga Toxin I & II - Final Complete Problem List/Assessment/Plan Problem List/Assessment/Plan Neurology # acute metabolic encephalopathy likely due to DKA vs Sepsis, improving # ICU/critical illness related deconditioning, improving - head CT from 01/07/2025: No acute territorial infarct, intracranial hemorrhage or mass effect - head CT from 01/19/2025: No acute intracranial abnormality - PT on board - tramadol prn for pain - monitor Cardiovascular # runs of AFib on EKG # prolonged QTC # Essential hypertension - avoiding QT prolonging drugs - echocardiogram from 07/20/2022: Overall preserved ventricular systolic function. EF 60%. Grade 1 diastolic dysfunction. - increased amlodipine to 10mg qD - repeat echo: Mild LVH and mild LV diastolic dysfunction. LVEF 65%. Slightly dilated left atrium. Moderately dilated RV and RA. Moderate degree pulmonary hypertension. Normal valves and no effusion. - monitor Respiratory # Community acquired pneumonia, Gram-positive versus Gram-negative # Acute hypoxic respiratory failure due to above, intubated and mechanically ventilated # moderate-large b/l Pleural effusions # moderate pulmonary hypertension with RVSP 46 mmHg - CXR 01/08/25: Bibasilar atelectasis or pneumonia. - CXR 01/20/25: Patchy bilateral airspace disease, otob-aocrrlh-lwic-right, slightly increased - previously on meropenem and vancomycin, stopped on 01/12/2025 - started on aztreonam on 01/17/2025, linezolid 01/16/2025 - discontinued aztreonam and linezolid on 01/20/2025 - started cefepime, vancomycin and metronidazole on 01/20/2025 - discontinued vancomycin 01/23/2025 - started linezolid, however, dc'ed linezolid on d/t thrombocytopenia, resumed vancomycin on 01/31 - s/p thoracentesis with 900 mL of fluid removed on 01/23/2025 GI # Acute intractable abdominal pain (01/21/25), improved # cholestasis of critical illness # Microcytic anemia possibly 2' to ?LGI bleed; Hb 7.8 # Moderate abdominopelvic ascites # Peptic ulcer prophylaxis # gallbladder hydrops # hypokalemia - stool occult blood positive - GI consult - CT abdomen pelvis from 01/07/2025: Nonspecific periportal edema. Incidental finding. -Pantoprazole 40 mg IV daily - serum lipase 113 - repeat CT abdomen pelvis (01/22/25): Moderate to large bilateral pleural effusions with patchy and consolidative infiltrates in the lung bases likely a combination of pneumonia and atelectasis.mLow to moderate volume abdominopelvic ascites and diffuse subcutaneous edema suggestive of anasarca. Moderate right hydronephrosis without visualization of hydroureter or obstructing calculi. This appearance is new versus CT scan dated 01/07/2025. Gallbladder hydrops without visualization of gallstones. This appearance may indicate acalculous cholecystitis. Fluid-filled colon with multiple air-fluid levels present, possibly related to diarrheal illness. No evidence of bowel obstruction, acute appendicitis, or other acute process in the abdomen or pelvis. 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 Moderate right hydronephrosis without visualization of hydroureter or obstructing calculi. This appearance is new versus CT scan dated 01/07/2025. Gallbladder hydrops without visualization of gallstones. This appearance may indicate acalculous cholecystitis. Fluid- filled colon with multiple air-fluid levels present, possibly related to diarrheal illness. No evidence of bowel obstruction, acute appendicitis, or other acute process in the abdomen or pelvis. - urology consulted - reconsulted nephrology - serum parathyroid hormone 185.9, corrected calcium 8.7 - currently running Lasix drip started on 02/04/25 Infectious disease # bilateral lower extremity cellulitis # left lower extremity diabetic foot ulcer on the plantar aspect growing Staph aureus # Sepsis due to above # left heel pressure ulcer # ruled out DVT # Fungal cutaneous infection in b/l groin # candidal balanitis with superimposed necrosis - MRI from 01/09/2025 shows Mild diffuse subcutaneous soft-tissue edema; possibly cellulitis. No bone marrow edema is present to suggest fracture or acute osteomyelitis. - bilateral lower extremity arterial Doppler: No hemodynamically significant stenosis based on peak systolic velocity criteria. - bilateral lower extremity venous Doppler: No right or left femoropopliteal venous thrombosis - discontinued aztreonam and linezolid on 01/20/2025 - started cefepime, vancomycin and metronidazole on 01/20/2025 - podiatry on board - left foot MRI: No MR evidence of osteomyelitis. Cellulitis and lateral 4 for deep of the 5th metatarsal bone were wound is noted overlying dressing. Edema in the intrinsic muscle of the foot may reflect sequelae of denervation, or myositis. - discontinued vancomycin 01/23/2025, started patient on daptomycin on 01/23/2025 - discontinued daptomycin, vancomycin and cefepime on 01/24/2025 - started linezolid on 01/24/2025 - discontinued linezolid on 01/31/2025 owing to dropping platelet count - started IV vancomycin per pharmacy after approval from Nephrology to have the dose timed with dialysis sessions on 01/31/25 - topical nystatin - added IV ceftriaxone 02/07/2025 Hem/onc # microcytic anemia # thrombocytosis likely secondary to sepsis # thrombocytopenia, worsening - s/p 4 PRBC transfusion - GI on board - monitor Endocrine # DKA, now resolved # recurrent episodes of hypoglycemia # severe protein calorie malnutrition # diabetic/starvation ketoacidosis, improved - discontinued lispro - holding insulin Lantus as patient continues to get hypoglycemic - mild sliding scale insulin - Accu-Cheks q4hr Diet pureed diet Lines - right PICC line paced on 01/24/2025 - right-sided Dean catheter placed on 01/24/2025 - Jones catheter exchanged on 01/26/2025 Drips Lasix at 20 milligrams/hour KCl Transeferred to OXANA 01/23/25 Intubated on 01/06/25 Extubated on 01/12/25 Intubated again on 01/24/25 Extubated on 02/05/2025 critical care time excluding procedures was 56 mins Detailed discussion held with patient's father at bedside Plan discussed with Dr. Dan Plan discussed with: Patient, Other (father, RN) My Orders My Orders Orders - ANABELL ORDOÑEZ RESIDENT Procedure Category Date Status Time * Swallow Request ST 02/10/25 Transmitted 17:09 Pureed DIET 02/10/25 Transmitted Dinner Tramadol Hcl (Ultram) PHA 02/10/25 In Process 18:00 Complete Blood Count LAB 02/11/25 Verified 04:00 Comprehensive LAB 02/11/25 Verified Metabolic Panel 04:00 * Systems Programmer CONS 02/10/25 Transmitted Consult Dietary Evaluation Review Recommendations by RD: Increase Calorie Intake Comments: Nutrition Recommendation: 1) Vital AF 1.2Cal @ 25ml/hr along with Pro-stat 1 pk BID. start @ 20ml/hr, increase 10ml/hr Q4H until goal is reached. TF @ goal volume along with propofol, IV D5wNS0.45%, and Pro-stat provides 1684 kcal (100% energy needs), 75gm protein (100% protein needs), 487ml free water. 2) TPN to meet 75% estimated needs if remains NPO 3) Bryce 1 pk BID for DFU Expected Outcomes/Goals: DFU to improve To maintain/gain weight To meet at least 75% estimated needs Fu 2-3 days Interpretation of weight loss: up to 5% in 1 month Muscle Mass (Severe): Mod to Severe Depletion Protein Calorie Malnutrition: Non-Severe Is there a minimum of two crit: Yes Date of Service: Feb 10, 2025 Billing Provider: AMY DAN MD Common Visit Codes: [id number] CARE 30-74 MIN ANABELL ORDOÑEZ Feb 10, 2025 21:01 AMY DAN MD Feb 11, 2025 16:59
[2025-02-11] VITALS (10 sets, daily range): BP systolic 133–165; BP diastolic 78–93; PULSE 80–104; RESP 17–19; TEMP 97.2–99.4; O2SAT 90–98
[2025-02-11 07:46] LABS: Anion Gap 14 (5-15); BUN/Creatinine Ratio 12.7 (10.0-20.0); Carbon Dioxide 22 mmol/L (20-31); Chloride 107 mmol/L (98-107); Sodium 143 mmol/L (136-145); Total Protein 5.7 g/dL (5.7-8.2)
[2025-02-11 07:48] LABS: Alanine Aminotransferase < 9 U/L (7-40); Albumin 2.7 g/dL (3.2-4.8); Bilirubin, Total 2.0 mg/dL (0.2-1.0); Blood Urea Nitrogen 25 mg/dL (9-23); Calcium 7.8 mg/dL (8.7-10.4); Glucose 155 mg/dL (74-106); Magnesium 1.5 mg/dL (1.6-2.6); Potassium 3.3 mmol/L (3.5-5.1)
[2025-02-11 08:02] LABS: Hematocrit 27.3 % (41.0-53.0); Hemoglobin 8.7 g/dL (13.5-17.5); Mean Corpuscular Hemoglobin 27.4 pg (28.0-32.0); Mean Corpuscular Volume 86.2 fL (80.0-100.0)
[2025-02-11 08:03] LABS: Alkaline Phosphatase 2214 U/L (46-116)
[2025-02-11 10:02] LABS: Total Cells Counted 100.0 (100)
[2025-02-11] MEDS: POTASSIUM EFFERVESENT TAB 25 MEQ PO ONE (10:39)
[2025-02-11] MEDS: MAGNESIUM SULFATE 1GM/100ML 100 ML IV SCH (11:18)
--- NOTE | 2025-02-11 13:44 | DVH ---
Date: 02/11/2025 11:34 AM Examination: XY KUB ABDOMEN SINGLE VIEW History: hypoactive bs Comparison: None TECHNIQUE: Frontal views of the abdomen was obtained. FINDINGS: Bowel gas pattern is unremarkable. The lung bases are unremarkable. No acute osseous abnormality identified. IMPRESSION: Nonobstructive bowel gas pattern.
--- NOTE | 2025-02-11 13:58 | DVHPN2 ---
Progress Note Date Seen: Feb 11, 2025 Resident Creating Document: MARTI POWELL RESIDENT Medical Necessity Reason Pt with a Central, PICC or Fol: Yes The following are medically ne: Central Line, Jones Catheter Reason for jones catheter: Strict I&O Subjective Review of Systems 02/06-patient is extubated, on room air, A&O x1-not oriented to place, reports that he has at home. Urine output 1700 cc per 24 hours. Phosphate 0.9. BUN/creatinine stable. Hemodialysis today. 02/07 - pt is alert, AxO2, hallucinating, wbc trendig up, Hb down. 1 PRBC ordered. DC IV lasix drip after transfusion and switch to iV BID 02/10-patient seen, A&O x2, not confused, not hallucinating, continue Lasix 40 mg daily. 02/11-patient seen, reports abdominal pain. KUB negative. Potassium and magnesium replenished. GI started ursodiol. DC Dean cath Objective vital signs Vital Sign Date Time Temp Pulse Resp B/P (MAP) Pulse Ox O2 Delivery O2 Flow Rate FiO2 02/11/25 10:41 167/89 02/11/25 09:44 99 02/11/25 09:00 99.2 17 92 99.2 02/11/25 08:05 Room Air* 0 21 Total Intake and Output 02/10/25 02/10/25 02/11/25 15:00 23:00 07:00 Intake Total 450 ml 100 ml Output Total 500 ml 100 ml Balance -50 ml 0 ml medications Current Medications Medications Dose Ordered Sig/Zaria Route Start Time Stop Time Status Last Admin Dose Admin Famotidine 20 mg Q12HR IV 01/07/25 10:00 UNV Diagnostic Test (Pha) 1 strip IQ4HR 01/07/25 08:00 Cancel Calcium Gluconate/ Sodium Chloride 50 ml @ 100 mls/hr Q30M IV 01/08/25 17:30 01/08/25 18:29 Cancel Sodium Chloride 10 ml QSHIFT@10,22 IV 01/24/25 22:00 02/11/25 08:24 10 ML Diagnostic Test (Pha) 1 strip Q4HR 01/26/25 14:00 UNV Vancomycin HCl 0 ml @ 0 mls/hr UD IV 01/31/25 14:30 Cancel Vancomycin HCl 0 ml @ 0 mls/hr UD IV 02/03/25 16:45 Cancel Epoetin Paolo-epbx 10,000 unit TUTHSA SC 02/04/25 10:00 02/11/25 08:46 10,000 UNIT Albumin Human 100 ml @ 100 mls/hr PRN PRN IV 02/05/25 06:45 02/05/25 08:00 100 MLS/HR Diagnostic Test (Pha) 1 strip IQ4HR 02/06/25 12:00 02/11/25 11:54 1 STRIP Insulin Human Regular IQ4HR SC 02/06/25 12:00 02/11/25 12:09 2 UNITS Dextrose 50 ml UD PRN IV 02/06/25 10:00 Spironolactone 50 mg DAILY PO 02/07/25 10:00 02/11/25 08:26 50 MG Levofloxacin/ Dextrose 100 ml @ 100 mls/hr Q48H IV 02/07/25 15:45 UNV Cefepime HCl 50 ml @ 50 mls/hr Q24H IV 02/08/25 17:00 02/10/25 17:57 50 MLS/HR Guaifenesin/ Dextromethorphan 10 ml Q6HP PRN PO 02/08/25 12:00 Morphine Sulfate 2 mg Q2HPRN PRN IV 02/08/25 12:00 02/11/25 00:15 2 MG Furosemide 40 mg DAILY IV 02/09/25 10:00 02/11/25 10:41 40 MG Labetalol HCl 5 mg Q2HPRN PRN IV 02/09/25 11:15 02/11/25 08:44 5 MG Enteral Nutritional Formula 240 ml TIDWM PO 02/09/25 18:00 02/11/25 11:54 240 ML Tramadol HCl 50 mg Q6HP PRN PO 02/10/25 18:00 02/11/25 11:54 50 MG Ursodiol 300 mg BID PO 02/11/25 22:00 Examination Patient lying in bed, status post extubation, on room air General: Sclerae icterus, malnourished, mucosae are moist Cardiovascular: Tachycardic but Regular S1 and S2. No murmurs, gallops or rubs. No JVD elevation. Trace resolving pedal edema Respiratory: Decreased bilateral breath sounds, no wheezing or crackles heard. Abdomen: Soft, nontender, nondistended, normoactive bowel sounds, no rebound tenderness, no organomegaly, no masses Genitourinary: Jones seen MSK/skin: Mobilizes 4 limbs. Skin is dry and warm Neurological: No motor, no sensitive deficits, normal speech. Pupils are isocoric and reactive. Psych/Mental Status: Denies hallucinations, following commands, A&O x2 laboratory and microbiology Laboratory Tests 02/11/25 06:02 Test 02/11/25 06:02 Range/Units Serum Glucose 155 H 74-106 mg/dL Microbiology Date/Time Source Procedure Growth Status 02/07/25 13:52 Blood Blood Culture - Preliminary NO GROWTH AFTER 72 HOURS OF INCUBATION. Resulted 01/26/25 08:46 Urine - Jones [place] Urine Culture - Final Complete 01/24/25 04:15 Sputum Gram Stain - Final Complete 01/24/25 04:15 Sputum Respiratory Culture - Final Complete 01/23/25 20:30 Pleural Fluid Gram Stain - Final Complete 01/23/25 20:30 Pleural Fluid Body Fluid Culture - Final Complete 01/19/25 16:06 Nose MRSA Screen - Final Complete 01/08/25 10:37 Stool Stool Culture - Final Complete 01/08/25 10:37 Stool Shiga Toxin I & II - Final Complete Labs and/or images reviewed: Labs reviewed by me, Image(s) reviewed by me Problem List/Assessment/Plan Problem List/Assessment/Plan Acute kidney injury superimposed Chronic Kidney Disease stage IIIB secondary hemodynamic mediated ATN, FeNa > 2% - needing dialysis Acute hypoxic respiratory failure, patient extubated and then reintubated Hypokalemia Anemia of chronic kidney disease DKA-resolved Uncontrolled diabetes mellitus Anasarca elevated bilirubin, ALK phos thrombocytopenia Severe protein calorie malnutrition Plan: BUN/creatinine stable, urine output stable, patient the not require hemodialysis at this moment. Can discontinue Dean catheter. Recommend switching Lasix 40 IV daily to p.o. daily. Continue IV antibiotics Continue Spironolactone 50mg daily no heparin Epogen 3x a week Avoid hypotension poor overall prognosis Plan discussed with patient in which all questions have been answered Case discussed with Dr. Mandel Plan discussed with: Patient Dietary Evaluation Review Recommendations by RD: Increase Calorie Intake Comments: Nutrition Recommendation: 1) Vital AF 1.2Cal @ 25ml/hr along with Pro-stat 1 pk BID. start @ 20ml/hr, increase 10ml/hr Q4H until goal is reached. TF @ goal volume along with propofol, IV D5wNS0.45%, and Pro-stat provides 1684 kcal (100% energy needs), 75gm protein (100% protein needs), 487ml free water. 2) TPN to meet 75% estimated needs if remains NPO 3) Bryce 1 pk BID for DFU Expected Outcomes/Goals: DFU to improve To maintain/gain weight To meet at least 75% estimated needs Fu 2-3 days Interpretation of weight loss: up to 5% in 1 month Muscle Mass (Severe): Mod to Severe Depletion Protein Calorie Malnutrition: Non-Severe Is there a minimum of two crit: Yes MARTI POWELL RESIDENT Feb 11, 2025 13:58
[2025-02-11] MEDS: METOPROLOL TARTRATE 25 MG TAB PO ONE (17:55)
--- NOTE | 2025-02-11 18:06 | DVHPNRES ---
Progress Note Date Seen: Feb 11, 2025 Resident Creating Document: ANABELL ORDOÑEZ RESIDENT Medical Necessity Reason Pt with a Central, PICC or Fol: Yes The following are medically ne: Central Line, Jones Catheter Reason for jones catheter: Strict I&O Subjective Review of Systems Patient is a 44-year-old male with known history of type 1 diabetes mellitus who presented on 01/06/2025 via EMS for altered level of consciousness. Per EMS, the patient was found unresponsive with a blood glucose of 931 and received 400 cc IV fluids on route. On arrival he exhibited hypoxia, generalized weakness, increased work of breathing necessitating intubation and mechanical ventilation. Patient was started on IV insulin drip, Zosyn and vancomycin with bicarbonate for severe acidosis. A right femoral central line, midline and peripheral IVs were also placed. Of note, patient has a history of poor adherence to his insulin therapy. Per patient's father, patient lives alone in a trailer and had not been heard from since 01/02/2025. Patient was last hospitalized at the [facility] in November 2024 for DKA. On 01/07/2025, patient developed lip swelling while still intubated, chart review revealed a penicillin allergy. Zosyn was discontinued and patient was treated with methylprednisolone and transitioned to meropenem. Nephrology was consulted for RADHA and hypernatremia. A 01/10/2025, patient had begun to improve and was weaned off sedation and was extubated on 01/12/2025 and transferred telemetry. Antibiotics were discontinued at that time due to uncertainty about the cause of leukocytosis (steroids versus infection). However, WBCs continued to trend upwards and the patient developed low-grade fevers, subsequently restarted on linezolid and aztreonam. Patient has bilateral diabetic foot ulcers, left side more advanced than right. MRI of bilateral extremities shows mild subcutaneous edema, possibly cellulitis but no signs of osteomyelitis. Patient was also noted to have a pressure related ulcer to the left heel. Lower extremity arterial Doppler showed no significant stenosis. Vascular surgery evaluated the ulcers but recommended no interventions at this time. Podiatry already on board. 01/20/2025: Held insulin Lantus, discontinued lispro, mild sliding scale q.4 hours only. Started IV fluconazole for candidal infection in the groin. Podiatry reconsulted for evaluation of bilateral lower extremity ulcers. GI consult for anemia and positive stool occult blood. Discontinued linezolid and aztreonam, started on cefepime, vancomycin and metronidazole. 01/21/25: notes improved but continued nausea, new onset abdominal pain -05/02, localized to mid abdomen. Patient refused MRI owing to abdominal pain, we will reattempt tomorrow. Added metoclopramide qD along with norco and morphine as needed. Blood glucose in 290s, resumed lantus 7units qAM, however, dropping blood sugar by 4pm therefore discontinued lantus again. Pt refuses to eat and has severe aversion to food 01/22/25: improved abdominal pain today 6-01/30, agreeable to CT abdomen however still refusing MRI L foot. Plan to reattempt tomorrow. new moderate R sided hydronephrosis noted, urology consulted. denies dyspnea, sob. improving nausea. 01/23/2025: Patient notes feeling weaker than yesterday, denies abdominal pain. On physical exam decreased breath sounds more prominent on the left side and some crackles bibasilar. Discontinued vancomycin and started patient on daptomycin. Repeated left foot MRI which showed cellulitis in the lateral 4 for deep to the 5th metatarsal bone marrow wound is noted with overlying dressing, no evidence of osteomyelitis. IV furosemide was increased to 40 mg b.i.d. and patient was transferred to D . 01/24/2025: Overnight patient was intubated due to increasing respiratory distress, patient also underwent thoracentesis with 900 mL of fluid removed on the left side. For starvation/diabetic ketoacidosis, patient was started on an insulin drip and D10, gap was closed and bicarb was stabilized at 20. Blood glucose was 100 with a insulin drip was stopped, patient was started on D5 water at 50 cc/hours. Nephrology increased IV Lasix to 80 mg b.i.d. along with plan for renal replacement therapy tentatively in the p.m.. 01/25/2025- patient received right IJ Dean cath HD cath yesterday. Dialysis done 1 L removed. Today patient continues to have right upper extremity edema 2+. Left upper extremity is restricted has trace pitting edema and restricted due to history of DVT. Patient also has 1 to trace pedal edema bilaterally. Up to mid shins. Patient is not requiring any vasopressors. Patient is ventilated and due to acute hypoxic respiratory failure. Patient has no p.o. intake due to large gastric bubble and possible gastroparesis from prolonged uncontrolled diabetes. We will do TPN via PICC line now and hold off any enteral feeds. Continue IV antibiotics. Patient is anemic less than 7, 1 unit PRBC. Tentative plan to get EPO with HD, which may help. No sources of obvious hemorrhage. We are continuing D5 W for hypernatremia. We will do some education vacation today and if goes well possible CPAP trials tomorrow. We will continue sliding scale insulin Q 2. Patient antibiotics IV is linezolid only. 01/26/2025-no dialysis today. No lower extremity edema. Right upper extremity edema looks improved. Today doing sedation vacation and CPAP trial. Some electrolyte abnormalities not concerning nephrology reviewed. Patient on dialysis but still makes some urine 150 dark brown color. Patient is getting broad-spectrum antibiotics. Clinimix. Sedation vacation but otherwise patient was on Versed and fentanyl. Heart rate upper end of normal in the 100s. Blood pressure stable. No vasopressors. We will decrease Accu-Cheks to q.4. Decrease D5 to 30, being used for recurrent hypoglycemia. Otherwise continue primary team's plan. 01/27/2025: Patient seen and examined at bedside. Noted to have fluid overload, severe scrotal swelling, 2+ lower extremity nonpitting edema up to the thighs along with scleral edema was noted. Urine output of 325 mL in the past 24 hours. Undergoing dialysis today. Had an apneic episode during CPAP trial on 01/26/2025. 01/28/2025: Patient seen and examined at bedside. Minimal improvement in edema, s/p dialysis yesterday on 01/27/2025. Continues to have nonpitting edema up to knees along with scleral and scrotal edema. Jaundiced appearance noted. 01/29/25: Patient seen and examined at bedside. improved UOP since yesterday, worsening inspiratory crackles and LE edema. completed dialysis today, required 4mcg/hr of norepinephrine during dialysis. noted to have scabbed lesions on the penis. 01/30/2025: Patient seen and examined at bedside, improved lower extremity edema. Detailed discussions held with patient's parents at bedside. 01/31/2025: Patient seen and examined [place] [address] [place]. Discontinued linezolid today on day 8 of treatment, started IV vancomycin per pharmacy after approval from Nephrology to have the dose timed with dialysis sessions. Repleted potassium with 40 mEq KCl rider. Urine output 100 mL in the last 24 hours, 700 mL of stool output via rectal tube. 02/01/25 patient remains intubated. Sedated. Sedation includes fentanyl 175 Versed 8. Continues to getting IV antibiotics broad-spectrum. Patient on ventilator a.c. 18/450/30%/5.0. Fecal tube with liquid output. Jones scant urine dark brown. Left upper extremity with pitting edema, dry other extremities. Tachycardic 114 sinus tachycardia. Continue primary team's plan of IV antibiotics, ongoing bilateral effusions, continuing dialysis with Nephrology. Platelets stable.. We will continue primary team's plan. No changes today. 02/02/2025 doing trial of CPAP patient not following commands. He is also on HD. Pulmonology bedside recommending against Versed. Likely sedatives we will still be the system as patient is not making any urine. We will try sedation vacation as long as patient can tolerate it.. His pupils are minimally responsive to light. But cough and gag reflex are present. Currently Versed fentanyl and Precedex are turned off. He is on spontaneous breathing trial CPAP and doing well. We will continuing IV antibiotics. Multiple lab abnormalities high ALP, thrombocytopenia. Patient is not on any heparin for concern for hit. Likely liver failure, GI is onboard giving ursodeoxycholic acid. We need to get GGT, PT INR PTT. And continuing further evaluation. Primary team to continue management tomorrow. 02/03/25: Liver function continues to decline. L lower extremity plantar wound with necrotic eschar noted, scabbing penile lesions persistent. resumed vancomycin scheduled with dialysis. scheduled family meeting for tomorrw. 02/04/2025: Bilirubin and alkaline phosphatase trending upwards, patient looking more jaundiced than previous days. Scheduled for dialysis today, detailed discussion held with patient's father Mr. Rayshawn devine, decided goals of care DNR. 02/05/2025: Patient completed CPAP trial, successfully extubated. Liver function continues to worsen. Called to inform patient's father about patient's extubation, per father he will come in the a.m. for repeat family meeting. 02/06/25: Patient seen and examined at bedside, blood glucose dropped to 32, changed insulin to a mild sliding scale. Serum phosphorus 0.9, repleted. Liver function minimally improving. Urine output 1700 mL over 24 hours. Details and care plan discussed with patient's father Mr. Dockery at bedside. 02/07/25: WBCs trending upwards, overnight hemoglobin dropped to 6.5: S/p 1 PRBC transfusion, added IV ceftriaxone. Patient continues to be noncompliant, pulled out NG tube x7, tried pulling out Dean catheter. Currently on Lasix 7 milligrams/minute, once drip finishes, we will be transitioned to IV Lasix 40 mg b.i.d. ordered swallow evaluation. 02/10/25: Patient seen and exmained at bedside, improved appetite. progressing with PT. downgraded to OXANA 02/11/25: patinet downgraded to telemetery on 02/10/22. improved abdominal pain and appetite. added metoprolol for blood pressure control. DC pending SNF bed availability Objective vital signs Vital Sign Date Time Temp Pulse Resp B/P (MAP) Pulse Ox O2 Delivery O2 Flow Rate FiO2 02/11/25 17:55 102 157/92 02/11/25 14:45 98.3 98.3 02/11/25 09:00 17 92 02/11/25 08:05 Room Air* 0 21 Total Intake and Output 02/10/25 02/10/25 02/11/25 15:00 23:00 07:00 Intake Total 450 ml 100 ml Output Total 500 ml 100 ml Balance -50 ml 0 ml medications Current Medications Medications Dose Ordered Sig/Zaria Route Start Time Stop Time Status Last Admin Dose Admin Famotidine 20 mg Q12HR IV 01/07/25 10:00 UNV Diagnostic Test (Pha) 1 strip IQ4HR 01/07/25 08:00 Cancel Calcium Gluconate/ Sodium Chloride 50 ml @ 100 mls/hr Q30M IV 01/08/25 17:30 01/08/25 18:29 Cancel Sodium Chloride 10 ml QSHIFT@10,22 IV 01/24/25 22:00 02/11/25 08:24 10 ML Diagnostic Test (Pha) 1 strip Q4HR 01/26/25 14:00 UNV Vancomycin HCl 0 ml @ 0 mls/hr UD IV 01/31/25 14:30 Cancel Vancomycin HCl 0 ml @ 0 mls/hr UD IV 02/03/25 16:45 Cancel Epoetin Paolo-epbx 10,000 unit TUTHSA SC 02/04/25 10:00 02/11/25 08:46 10,000 UNIT Albumin Human 100 ml @ 100 mls/hr PRN PRN IV 02/05/25 06:45 02/05/25 08:00 100 MLS/HR Diagnostic Test (Pha) 1 strip IQ4HR 02/06/25 12:00 02/11/25 15:53 1 STRIP Insulin Human Regular IQ4HR SC 02/06/25 12:00 02/11/25 16:00 6 UNITS Dextrose 50 ml UD PRN IV 02/06/25 10:00 Spironolactone 50 mg DAILY PO 02/07/25 10:00 02/11/25 08:26 50 MG Levofloxacin/ Dextrose 100 ml @ 100 mls/hr Q48H IV 02/07/25 15:45 UNV Cefepime HCl 50 ml @ 50 mls/hr Q24H IV 02/08/25 17:00 02/11/25 16:13 50 MLS/HR Guaifenesin/ Dextromethorphan 10 ml Q6HP PRN PO 02/08/25 12:00 Morphine Sulfate 2 mg Q2HPRN PRN IV 02/08/25 12:00 02/11/25 00:15 2 MG Labetalol HCl 5 mg Q2HPRN PRN IV 02/09/25 11:15 02/11/25 16:27 5 MG Enteral Nutritional Formula 240 ml TIDWM PO 02/09/25 18:00 02/11/25 17:56 240 ML Tramadol HCl 50 mg Q6HP PRN PO 02/10/25 18:00 02/11/25 11:54 50 MG Ursodiol 300 mg BID PO 02/11/25 22:00 Furosemide 40 mg DAILY PO 02/12/25 10:00 Metoprolol Tartrate 25 mg BID PO 02/11/25 22:00 Examination General Appearance: Intubated and sedated. Malnourished, in mild distress. Jaundiced Head Exam: Normal inspection. No vision in right eye, decreased vision in left eye, minimally reactive pupils. Scleral edema Pulmonary/Respiratory: Chest non-tender. decreased bilateral breath sounds, no crackles, no wheezing. Cardiovascular/Chest: Tachycardic. No murmurs. No JVD. Abdominal Exam: Normal bowel sounds. Soft. normal abdomen, no visible veins, nontender No hepatospenomegaly. No masses Lower extremities: 2+ nonpitting lower extremity edema up to the thighs. Left heel pressure ulcer noted. Multiple diabetic foot ulcers on bilateral feet, largest 1 noted on left plantar foot with a dark black necrotic appearance Thoughts/Psych: Normal thought pattern. Appropriate mood and affect Skin Exam: improving groin lesions, redness noted along right gluteal area, penile scabs improved laboratory and microbiology Laboratory Tests 02/11/25 06:02 Test 02/11/25 06:02 Range/Units Serum Glucose 155 H 74-106 mg/dL Microbiology Date/Time Source Procedure Growth Status 02/07/25 13:52 Blood Blood Culture - Preliminary NO GROWTH AFTER 72 HOURS OF INCUBATION. Resulted 01/26/25 08:46 Urine - Jones [place] Urine Culture - Final Complete 01/24/25 04:15 Sputum Gram Stain - Final Complete 01/24/25 04:15 Sputum Respiratory Culture - Final Complete 01/23/25 20:30 Pleural Fluid Gram Stain - Final Complete 01/23/25 20:30 Pleural Fluid Body Fluid Culture - Final Complete 01/19/25 16:06 Nose MRSA Screen - Final Complete 01/08/25 10:37 Stool Stool Culture - Final Complete 01/08/25 10:37 Stool Shiga Toxin I & II - Final Complete Problem List/Assessment/Plan Problem List/Assessment/Plan Neurology # acute metabolic encephalopathy likely due to DKA vs Sepsis, improving # ICU/critical illness related deconditioning, improving - head CT from 01/07/2025: No acute territorial infarct, intracranial hemorrhage or mass effect - head CT from 01/19/2025: No acute intracranial abnormality - PT on board - tramadol prn for pain - monitor Cardiovascular # runs of AFib on EKG # prolonged QTC # Essential hypertension - avoiding QT prolonging drugs - echocardiogram from 07/20/2022: Overall preserved ventricular systolic function. EF 60%. Grade 1 diastolic dysfunction. - increased amlodipine to 10mg qD - repeat echo: Mild LVH and mild LV diastolic dysfunction. LVEF 65%. Slightly dilated left atrium. Moderately dilated RV and RA. Moderate degree pulmonary hypertension. Normal valves and no effusion. - monitor Respiratory # Community acquired pneumonia, Gram-positive versus Gram-negative # Acute hypoxic respiratory failure due to above, intubated and mechanically ventilated # moderate-large b/l Pleural effusions # moderate pulmonary hypertension with RVSP 46 mmHg - CXR 01/08/25: Bibasilar atelectasis or pneumonia. - CXR 01/20/25: Patchy bilateral airspace disease, [id number], slightly increased - previously on meropenem and vancomycin, stopped on 01/12/2025 - started on aztreonam on 01/17/2025, linezolid 01/16/2025 - discontinued aztreonam and linezolid on 01/20/2025 - started cefepime, vancomycin and metronidazole on 01/20/2025 - discontinued vancomycin 01/23/2025 - started linezolid, however, dc'ed linezolid on d/t thrombocytopenia, resumed vancomycin on 01/31 - s/p thoracentesis with 900 mL of fluid removed on 01/23/2025 GI # Acute intractable abdominal pain (01/21/25), improved # cholestasis of critical illness # Microcytic anemia possibly 2' to ?LGI bleed; Hb 7.8 # Moderate abdominopelvic ascites # Peptic ulcer prophylaxis # gallbladder hydrops # hypokalemia - stool occult blood positive - GI consult - CT abdomen pelvis from 01/07/2025: Nonspecific periportal edema. Incidental finding. -Pantoprazole 40 mg IV daily - serum lipase 113 - repeat CT abdomen pelvis (01/22/25): Moderate to large bilateral pleural effusions with patchy and consolidative infiltrates in the lung bases likely a combination of pneumonia and atelectasis.mLow to moderate volume abdominopelvic ascites and diffuse subcutaneous edema suggestive of anasarca. Moderate right hydronephrosis without visualization of hydroureter or obstructing calculi. This appearance is new versus CT scan dated 01/07/2025. Gallbladder hydrops without visualization of gallstones. This appearance may indicate acalculous cholecystitis. Fluid-filled colon with multiple air-fluid levels present, possibly related to diarrheal illness. No evidence of bowel obstruction, acute appendicitis, or other acute process in the abdomen or pelvis. 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 Moderate right hydronephrosis without visualization of hydroureter or obstructing calculi. This appearance is new versus CT scan dated 01/07/2025. Gallbladder hydrops without visualization of gallstones. This appearance may indicate acalculous cholecystitis. Fluid- filled colon with multiple air-fluid levels present, possibly related to diarrheal illness. No evidence of bowel obstruction, acute appendicitis, or other acute process in the abdomen or pelvis. - urology consulted - reconsulted nephrology - serum parathyroid hormone 185.9, corrected calcium 8.7 - currently running Lasix drip started on 02/04/25 Infectious disease # bilateral lower extremity cellulitis # left lower extremity diabetic foot ulcer on the plantar aspect growing Staph aureus # Sepsis due to above # left heel pressure ulcer # ruled out DVT # Fungal cutaneous infection in b/l groin # candidal balanitis with superimposed necrosis - MRI from 01/09/2025 shows Mild diffuse subcutaneous soft-tissue edema; possibly cellulitis. No bone marrow edema is present to suggest fracture or acute osteomyelitis. - bilateral lower extremity arterial Doppler: No hemodynamically significant stenosis based on peak systolic velocity criteria. - bilateral lower extremity venous Doppler: No right or left femoropopliteal venous thrombosis - discontinued aztreonam and linezolid on 01/20/2025 - started cefepime, vancomycin and metronidazole on 01/20/2025 - podiatry on board - left foot MRI: No MR evidence of osteomyelitis. Cellulitis and lateral 4 for deep of the 5th metatarsal bone were wound is noted overlying dressing. Edema in the intrinsic muscle of the foot may reflect sequelae of denervation, or myositis. - discontinued vancomycin 01/23/2025, started patient on daptomycin on 01/23/2025 - discontinued daptomycin, vancomycin and cefepime on 01/24/2025 - started linezolid on 01/24/2025 - discontinued linezolid on 01/31/2025 owing to dropping platelet count - started IV vancomycin per pharmacy after approval from Nephrology to have the dose timed with dialysis sessions on 01/31/25 - topical nystatin - added IV ceftriaxone 02/07/2025 Hem/onc # microcytic anemia # thrombocytosis likely secondary to sepsis # thrombocytopenia, worsening - s/p 4 PRBC transfusion - GI on board - monitor Endocrine # DKA, now resolved # recurrent episodes of hypoglycemia # severe protein calorie malnutrition # diabetic/starvation ketoacidosis, improved - discontinued lispro - holding insulin Lantus as patient continues to get hypoglycemic - mild sliding scale insulin - Accu-Cheks q4hr Diet pureed diet Lines - right PICC line paced on 01/24/2025 - right-sided Dean catheter placed on 01/24/2025 - Jones catheter exchanged on 01/26/2025 Drips Lasix at 20 milligrams/hour KCl Transeferred to OXANA 01/23/25 Intubated on 01/06/25 Extubated on 01/12/25 Intubated again on 01/24/25 Extubated on 02/05/2025 critical care time excluding procedures was 46 mins DC pending SNF bed availability Detailed discussion held with patient's father at bedside Plan discussed with Dr. Dan Plan discussed with: Patient, Other (RN) My Orders My Orders Orders - ANABELL ORDOÑEZ RESIDENT Procedure Category Date Status Time Kub Abdomen Single XY 02/11/25 Resulted View 10:49 Dietary Evaluation Review Recommendations by RD: Increase Calorie Intake Comments: Nutrition Recommendation: 1) Vital AF 1.2Cal @ 25ml/hr along with Pro-stat 1 pk BID. start @ 20ml/hr, increase 10ml/hr Q4H until goal is reached. TF @ goal volume along with propofol, IV D5wNS0.45%, and Pro-stat provides 1684 kcal (100% energy needs), 75gm protein (100% protein needs), 487ml free water. 2) TPN to meet 75% estimated needs if remains NPO 3) Bryce 1 pk BID for DFU Expected Outcomes/Goals: DFU to improve To maintain/gain weight To meet at least 75% estimated needs Fu 2-3 days Interpretation of weight loss: up to 5% in 1 month Muscle Mass (Severe): Mod to Severe Depletion Protein Calorie Malnutrition: Non-Severe Is there a minimum of two crit: Yes Date of Service: Feb 11, 2025 Billing Provider: AMY DAN MD Common Visit Codes: [id number] CARE 30-74 MIN ANABELL ORDOÑEZ Feb 11, 2025 18:06 AMY DAN MD Feb 12, 2025 13:59
--- NOTE | 2025-02-11 20:43 | DVHPN2 ---
Progress Note - Dictate Date Seen: Feb 11, 2025 Medical Necessity Reason Pt with a Central, PICC or Fol: Yes The following are medically ne: Central Line, Jones Catheter Reason for jones catheter: Strict I&O Subjective No new complaints; patient downgraded to the floor Patient is tolerating diet Patient is sleeping Dean catheter was removed Patient undergoes PT and wound care Liver enzymes are trending down including his alkaline phosphatase Hemoglobin is up to 8.7; renal function stable Patient has received 4 units PRBC during this hospitalization vital signs Vital Sign Date Time Temp Pulse Resp B/P (MAP) Pulse Ox O2 Delivery O2 Flow Rate FiO2 02/11/25 18:55 98 164/86 02/11/25 17:00 98.4 17 90 98.4 02/11/25 08:05 Room Air* 0 21 Total Intake and Output 02/10/25 02/10/25 02/11/25 15:00 23:00 07:00 Intake Total 450 ml 100 ml Output Total 500 ml 100 ml Balance -50 ml 0 ml medications Current Medications Medications Dose Ordered Sig/Zaria Route Start Time Stop Time Status Last Admin Dose Admin Famotidine 20 mg Q12HR IV 01/07/25 10:00 UNV Diagnostic Test (Pha) 1 strip IQ4HR 01/07/25 08:00 Cancel Calcium Gluconate/ Sodium Chloride 50 ml @ 100 mls/hr Q30M IV 01/08/25 17:30 01/08/25 18:29 Cancel Sodium Chloride 10 ml QSHIFT@10,22 IV 01/24/25 22:00 02/11/25 08:24 10 ML Diagnostic Test (Pha) 1 strip Q4HR 01/26/25 14:00 UNV Vancomycin HCl 0 ml @ 0 mls/hr UD IV 01/31/25 14:30 Cancel Vancomycin HCl 0 ml @ 0 mls/hr UD IV 02/03/25 16:45 Cancel Epoetin Paolo-epbx 10,000 unit TUTHSA SC 02/04/25 10:00 02/11/25 08:46 10,000 UNIT Albumin Human 100 ml @ 100 mls/hr PRN PRN IV 02/05/25 06:45 02/05/25 08:00 100 MLS/HR Diagnostic Test (Pha) 1 strip IQ4HR 02/06/25 12:00 02/11/25 20:00 1 STRIP Insulin Human Regular IQ4HR SC 02/06/25 12:00 02/11/25 16:00 6 UNITS Dextrose 50 ml UD PRN IV 02/06/25 10:00 Spironolactone 50 mg DAILY PO 02/07/25 10:00 02/11/25 08:26 50 MG Levofloxacin/ Dextrose 100 ml @ 100 mls/hr Q48H IV 02/07/25 15:45 UNV Cefepime HCl 50 ml @ 50 mls/hr Q24H IV 02/08/25 17:00 02/11/25 16:13 50 MLS/HR Guaifenesin/ Dextromethorphan 10 ml Q6HP PRN PO 02/08/25 12:00 Morphine Sulfate 2 mg Q2HPRN PRN IV 02/08/25 12:00 02/11/25 00:15 2 MG Labetalol HCl 5 mg Q2HPRN PRN IV 02/09/25 11:15 02/11/25 16:27 5 MG Enteral Nutritional Formula 240 ml TIDWM PO 02/09/25 18:00 02/11/25 17:56 240 ML Tramadol HCl 50 mg Q6HP PRN PO 02/10/25 18:00 02/11/25 11:54 50 MG Ursodiol 300 mg BID PO 02/11/25 22:00 Furosemide 40 mg DAILY PO 02/12/25 10:00 Metoprolol Tartrate 25 mg BID PO 02/11/25 22:00 objective Patient lying in bed, status post extubation, on 2 l nc General: Sclerae icterus, malnourished, mucosae are moist Cardiovascular: Regular S1 an S2 rrr. Trace resolving pedal edema Respiratory: clear Abdomen: Soft, nontender, nondistended, normoactive bowel sounds, no rebound tenderness, no organomegaly, no masses Genitourinary: Jones seen MSK/skin: Mobilizes 4 limbs. Skin is dry and warm Neurological: No motor, no sensitive deficits, normal speech. Pupils are isocoric and reactive. laboratory and microbiology Laboratory Tests 02/11/25 06:02 Test 02/11/25 06:02 Range/Units Serum Glucose 155 H 74-106 mg/dL Problems(with codes): (1) Elevated AFP (2) Gallbladder hydrops (3) History of diabetic ketoacidosis (4) Cannabinoid hyperemesis syndrome (5) Hypoglycemia associated with diabetes (6) Diabetic keto-acidosis (7) Coffee ground emesis (8) Malnourished Prognosis Plan Advance diet as tolerated Protonix 40 mg IV daily Zofran as needed for nausea Nutritional supplements with one can of Glucerna 3 times with meals Nutrition follow up appreciated Dietary Evaluation Review Recommendations by RD: Increase Calorie Intake Comments: Nutrition Recommendation: 1) Vital AF 1.2Cal @ 25ml/hr along with Pro-stat 1 pk BID. start @ 20ml/hr, increase 10ml/hr Q4H until goal is reached. TF @ goal volume along with propofol, IV D5wNS0.45%, and Pro-stat provides 1684 kcal (100% energy needs), 75gm protein (100% protein needs), 487ml free water. 2) TPN to meet 75% estimated needs if remains NPO 3) Bryce 1 pk BID for DFU Expected Outcomes/Goals: DFU to improve To maintain/gain weight To meet at least 75% estimated needs Fu 2-3 days Interpretation of weight loss: up to 5% in 1 month Muscle Mass (Severe): Mod to Severe Depletion Protein Calorie Malnutrition: Non-Severe Is there a minimum of two crit: Yes Plan discussed with: Patient LETTY GENTILE MD Feb 11, 2025 20:43
[2025-02-11] MEDS: METOCLOPRAMIDE HCL 5MG/ml INJ 2ml VIAL IV ONE (21:48)
[2025-02-11] MEDS: URSODIOL 300 MG CAP PO SCH (21:48)
[2025-02-11] MEDS: METOPROLOL TARTRATE 25 MG TAB PO SCH (21:49)
[2025-02-12] VITALS (8 sets, daily range): BP systolic 136–170; BP diastolic 64–99; PULSE 66–100; RESP 16–19; TEMP 97.8–98.9; O2SAT 90–97
[2025-02-12 07:13] LABS: Hematocrit 27.2 % (41.0-53.0); Hemoglobin 8.7 g/dL (13.5-17.5); Mean Corpuscular Hemoglobin 27.9 pg (28.0-32.0); Mean Corpuscular Volume 87.0 fL (80.0-100.0); Sodium 142 mmol/L (136-145)
[2025-02-12 07:14] LABS: Anion Gap 12 (5-15); Carbon Dioxide 23 mmol/L (20-31)
[2025-02-12 07:20] LABS: BUN/Creatinine Ratio 11.9 (10.0-20.0); Blood Urea Nitrogen 23 mg/dL (9-23)
[2025-02-12 07:26] LABS: Calcium 8.1 mg/dL (8.7-10.4); Chloride 107 mmol/L (98-107); Glucose 132 mg/dL (74-106); Potassium 2.9 mmol/L (3.5-5.1)
[2025-02-12 07:30] LABS: Anisocytosis Slight; Total Cells Counted 100.0 (100)
[2025-02-12] MEDS: POTASSIUM CHL 20MEQ/100ML 100 ML IV SCH (08:42)
[2025-02-12] MEDS: FUROSEMIDE 20 MG TAB PO SCH (09:26)
[2025-02-12] MEDS: METOCLOPRAMIDE HCL 10 MG TAB PO PRN (11:26)
--- NOTE | 2025-02-12 13:10 | DVHPN2 ---
Progress Note - Dictate Date Seen: Feb 12, 2025 Medical Necessity Reason Pt with a Central, PICC or Fol: Yes The following are medically ne: Central Line, Jones Catheter Reason for jones catheter: Strict I&O Subjective No new complaints; sleeping comfortably Patient is tolerating diet Dean catheter was removed Patient undergoes PT and wound care Liver enzymes are trending down including his alkaline phosphatase Hemoglobin is up to 8.7; renal function stable Patient has received 4 units PRBC during this hospitalization vital signs Vital Sign Date Time Temp Pulse Resp B/P (MAP) Pulse Ox O2 Delivery O2 Flow Rate FiO2 02/12/25 11:28 93 19 160/83 02/12/25 09:00 98.0 92 98.0 02/12/25 08:08 Room Air* 0 21 Total Intake and Output 02/11/25 02/11/25 02/12/25 15:00 23:00 07:00 Intake Total 520 ml 450 ml 240 ml Output Total 500 ml 260 ml Balance 520 ml -50 ml -20 ml medications Current Medications Medications Dose Ordered Sig/Zaria Route Start Time Stop Time Status Last Admin Dose Admin Famotidine 20 mg Q12HR IV 01/07/25 10:00 UNV Diagnostic Test (Pha) 1 strip IQ4HR 01/07/25 08:00 Cancel Calcium Gluconate/ Sodium Chloride 50 ml @ 100 mls/hr Q30M IV 01/08/25 17:30 01/08/25 18:29 Cancel Sodium Chloride 10 ml QSHIFT@10,22 IV 01/24/25 22:00 02/12/25 09:26 10 ML Diagnostic Test (Pha) 1 strip Q4HR 01/26/25 14:00 UNV Vancomycin HCl 0 ml @ 0 mls/hr UD IV 01/31/25 14:30 Cancel Vancomycin HCl 0 ml @ 0 mls/hr UD IV 02/03/25 16:45 Cancel Epoetin Paolo-epbx 10,000 unit TUTHSA SC 02/04/25 10:00 02/11/25 08:46 10,000 UNIT Albumin Human 100 ml @ 100 mls/hr PRN PRN IV 02/05/25 06:45 02/05/25 08:00 100 MLS/HR Diagnostic Test (Pha) 1 strip IQ4HR 02/06/25 12:00 02/12/25 13:01 1 STRIP Insulin Human Regular IQ4HR SC 02/06/25 12:00 02/12/25 13:04 10 UNITS Dextrose 50 ml UD PRN IV 02/06/25 10:00 Spironolactone 50 mg DAILY PO 02/07/25 10:00 02/12/25 09:25 50 MG Levofloxacin/ Dextrose 100 ml @ 100 mls/hr Q48H IV 02/07/25 15:45 UNV Cefepime HCl 50 ml @ 50 mls/hr Q24H IV 02/08/25 17:00 02/11/25 16:13 50 MLS/HR Guaifenesin/ Dextromethorphan 10 ml Q6HP PRN PO 02/08/25 12:00 Morphine Sulfate 2 mg Q2HPRN PRN IV 02/08/25 12:00 02/12/25 11:28 2 MG Labetalol HCl 5 mg Q2HPRN PRN IV 02/09/25 11:15 02/12/25 05:32 5 MG Enteral Nutritional Formula 240 ml TIDWM PO 02/09/25 18:00 02/12/25 08:02 240 ML Tramadol HCl 50 mg Q6HP PRN PO 02/10/25 18:00 02/12/25 04:27 50 MG Ursodiol 300 mg BID PO 02/11/25 22:00 02/12/25 11:26 300 MG Furosemide 40 mg DAILY PO 02/12/25 10:00 Metoprolol Tartrate 25 mg BID PO 02/11/25 22:00 02/12/25 09:26 25 MG Metoclopramide HCl 5 mg Q6HP PRN PO 02/12/25 09:45 02/12/25 11:26 5 MG objective Patient lying in bed, status post extubation, on 2 l nc General: Sclerae icterus, malnourished, mucosae are moist Cardiovascular: Regular S1 an S2 rrr. Trace resolving pedal edema Respiratory: clear Abdomen: Soft, nontender, nondistended, normoactive bowel sounds, no rebound tenderness, no organomegaly, no masses Genitourinary: Jones seen MSK/skin: Mobilizes 4 limbs. Skin is dry and warm Neurological: No motor, no sensitive deficits, normal speech. Pupils are isocoric and reactive. laboratory and microbiology Laboratory Tests 02/12/25 05:33 Test 7/23/25 05:33 Range/Units Serum Glucose 132 H 74-106 mg/dL Problems(with codes): (1) Hypokalemia (2) Cachexia (3) Hiatal hernia (4) Erosive esophagitis (5) Coffee ground emesis (6) Cannabinoid hyperemesis syndrome (7) History of diabetic ketoacidosis (8) Gallbladder hydrops (9) Elevated AFP Prognosis Plan Replace potassium Continue supportive care Discharge planning as per hospitalist possible SNF placement Ensure one can p.o. three times a day with meals Dietary Evaluation Review Recommendations by RD: Increase Calorie Intake Comments: Nutrition Recommendation: 1) Vital AF 1.2Cal @ 25ml/hr along with Pro-stat 1 pk BID. start @ 20ml/hr, increase 10ml/hr Q4H until goal is reached. TF @ goal volume along with propofol, IV D5wNS0.45%, and Pro-stat provides 1684 kcal (100% energy needs), 75gm protein (100% protein needs), 487ml free water. 2) TPN to meet 75% estimated needs if remains NPO 3) Bryce 1 pk BID for DFU Expected Outcomes/Goals: DFU to improve To maintain/gain weight To meet at least 75% estimated needs Fu 2-3 days Interpretation of weight loss: up to 5% in 1 month Muscle Mass (Severe): Mod to Severe Depletion Protein Calorie Malnutrition: Non-Severe Is there a minimum of two crit: Yes Plan discussed with: Patient, Other (Nurse) LETTY GENTILE MD Feb 12, 2025 13:10
--- NOTE | 2025-02-12 13:30 | DVHPN2 ---
Progress Note Date Seen: Feb 12, 2025 Resident Creating Document: MARTI POWELL RESIDENT Medical Necessity Reason Pt with a Central, PICC or Fol: Yes The following are medically ne: Central Line, Jones Catheter Reason for jones catheter: Strict I&O Subjective Review of Systems 02/06-patient is extubated, on room air, A&O x1-not oriented to place, reports that he has at home. Urine output 1700 cc per 24 hours. Phosphate 0.9. BUN/creatinine stable. Hemodialysis today. 02/07 - pt is alert, AxO2, hallucinating, wbc trendig up, Hb down. 1 PRBC ordered. DC IV lasix drip after transfusion and switch to iV BID 02/10-patient seen, A&O x2, not confused, not hallucinating, continue Lasix 40 mg daily. 02/11-patient seen, reports abdominal pain. KUB negative. Potassium and magnesium replenished. GI started ursodiol. DC Dean cath 02/12-overnight Dean catheter was removed. Urine output 760 cc. Hemoglobin stable. Potassium 2.9, replenished. Mag 2, increased aldactone to 75mg daily Objective vital signs Vital Sign Date Time Temp Pulse Resp B/P (MAP) Pulse Ox O2 Delivery O2 Flow Rate FiO2 02/12/25 11:28 93 19 160/83 02/12/25 09:00 98.0 92 98.0 02/12/25 08:08 Room Air* 0 21 Total Intake and Output 02/11/25 02/11/25 02/12/25 15:00 23:00 07:00 Intake Total 520 ml 450 ml 240 ml Output Total 500 ml 260 ml Balance 520 ml -50 ml -20 ml medications Current Medications Medications Dose Ordered Sig/Zaria Route Start Time Stop Time Status Last Admin Dose Admin Famotidine 20 mg Q12HR IV 01/07/25 10:00 UNV Diagnostic Test (Pha) 1 strip IQ4HR 01/07/25 08:00 Cancel Calcium Gluconate/ Sodium Chloride 50 ml @ 100 mls/hr Q30M IV 01/08/25 17:30 01/08/25 18:29 Cancel Sodium Chloride 10 ml QSHIFT@10,22 IV 01/24/25 22:00 02/12/25 09:26 10 ML Diagnostic Test (Pha) 1 strip Q4HR 01/26/25 14:00 UNV Vancomycin HCl 0 ml @ 0 mls/hr UD IV 01/31/25 14:30 Cancel Vancomycin HCl 0 ml @ 0 mls/hr UD IV 02/03/25 16:45 Cancel Epoetin Paolo-epbx 10,000 unit TUTHSA SC 02/04/25 10:00 02/11/25 08:46 10,000 UNIT Albumin Human 100 ml @ 100 mls/hr PRN PRN IV 02/05/25 06:45 02/05/25 08:00 100 MLS/HR Diagnostic Test (Pha) 1 strip IQ4HR 02/06/25 12:00 02/12/25 13:01 1 STRIP Insulin Human Regular IQ4HR SC 02/06/25 12:00 02/12/25 13:04 10 UNITS Dextrose 50 ml UD PRN IV 02/06/25 10:00 Spironolactone 50 mg DAILY PO 02/07/25 10:00 02/12/25 09:25 50 MG Levofloxacin/ Dextrose 100 ml @ 100 mls/hr Q48H IV 02/07/25 15:45 UNV Cefepime HCl 50 ml @ 50 mls/hr Q24H IV 02/08/25 17:00 02/11/25 16:13 50 MLS/HR Guaifenesin/ Dextromethorphan 10 ml Q6HP PRN PO 02/08/25 12:00 Morphine Sulfate 2 mg Q2HPRN PRN IV 02/08/25 12:00 02/12/25 11:28 2 MG Labetalol HCl 5 mg Q2HPRN PRN IV 02/09/25 11:15 02/12/25 05:32 5 MG Enteral Nutritional Formula 240 ml TIDWM PO 02/09/25 18:00 02/12/25 08:02 240 ML Tramadol HCl 50 mg Q6HP PRN PO 02/10/25 18:00 02/12/25 04:27 50 MG Ursodiol 300 mg BID PO 02/11/25 22:00 02/12/25 11:26 300 MG Furosemide 40 mg DAILY PO 02/12/25 10:00 Metoprolol Tartrate 25 mg BID PO 02/11/25 22:00 02/12/25 09:26 25 MG Metoclopramide HCl 5 mg Q6HP PRN PO 02/12/25 09:45 02/12/25 11:26 5 MG Examination atient lying in bed, status post extubation, on room air General: Sclerae icterus, malnourished, mucosae are moist Cardiovascular: Tachycardic but Regular S1 and S2. No murmurs, gallops or rubs. No JVD elevation. Trace resolving pedal edema Respiratory: Decreased bilateral breath sounds, no wheezing or crackles heard. Abdomen: Soft, nontender, nondistended, normoactive bowel sounds, no rebound tenderness, no organomegaly, no masses Genitourinary: Jones seen MSK/skin: Mobilizes 4 limbs. Skin is dry and warm Neurological: No motor, no sensitive deficits, normal speech. Pupils are isocoric and reactive. Psych/Mental Status: Denies hallucinations, following commands, A&O x2 laboratory and microbiology Laboratory Tests 02/12/25 05:33 Test 02/12/25 05:33 Range/Units Serum Glucose 132 H 74-106 mg/dL Microbiology Date/Time Source Procedure Growth Status 02/07/25 13:52 Blood Blood Culture - Preliminary NO GROWTH AFTER 72 HOURS OF INCUBATION. Resulted 01/26/25 08:46 Urine - [place] Urine Culture - Final Complete 01/24/25 04:15 Sputum Gram Stain - Final Complete 01/24/25 04:15 Sputum Respiratory Culture - Final Complete 01/23/25 20:30 Pleural Fluid Gram Stain - Final Complete 01/23/25 20:30 Pleural Fluid Body Fluid Culture - Final Complete 01/19/25 16:06 Nose MRSA Screen - Final Complete 01/08/25 10:37 Stool Stool Culture - Final Complete 01/08/25 10:37 Stool Shiga Toxin I & II - Final Complete Labs and/or images reviewed: Labs reviewed by me, Image(s) reviewed by me Problem List/Assessment/Plan Problem List/Assessment/Plan Acute kidney injury superimposed Chronic Kidney Disease stage IIIB secondary hemodynamic mediated ATN, FeNa > 2% - needing dialysis Acute hypoxic respiratory failure, patient extubated and then reintubated Hypokalemia Anemia of chronic kidney disease DKA-resolved Uncontrolled diabetes mellitus Anasarca elevated bilirubin, ALK phos thrombocytopenia Severe protein calorie malnutrition Plan: BUN/creatinine stable, urine output stable, patient does not require hemodialysis at this moment. Recommend switching Lasix 40 IV daily to p.o. daily. Continue IV antibiotics Continue Spironolactone 50mg in AM, 25 mg in PM, total 75mg daily Continue metoprolol 25 mg b.i.d. no heparin Epogen 3x a week Avoid hypotension poor overall prognosis Plan discussed with patient in which all questions have been answered Case discussed with Dr. Mandel Plan discussed with: Patient My Orders My Orders Orders - MARTI POWELL RESIDENT Procedure Category Date Status Time Furosemide Tablet PHA 02/12/25 In Process (Lasix Tablet) 10:00 Communication Order ORDERS 02/11/25 Transmitted 13:57 Magnesium LAB 02/12/25 In Process 10:39 Dietary Evaluation Review Recommendations by RD: Increase Calorie Intake Comments: Nutrition Recommendation: 1) Vital AF 1.2Cal @ 25ml/hr along with Pro-stat 1 pk BID. start @ 20ml/hr, increase 10ml/hr Q4H until goal is reached. TF @ goal volume along with propofol, IV D5wNS0.45%, and Pro-stat provides 1684 kcal (100% energy needs), 75gm protein (100% protein needs), 487ml free water. 2) TPN to meet 75% estimated needs if remains NPO 3) Bryce 1 pk BID for DFU Expected Outcomes/Goals: DFU to improve To maintain/gain weight To meet at least 75% estimated needs Fu 2-3 days Interpretation of weight loss: up to 5% in 1 month Muscle Mass (Severe): Mod to Severe Depletion Protein Calorie Malnutrition: Non-Severe Is there a minimum of two crit: Yes MARTI POWELL RESIDENT Feb 12, 2025 13:29
[2025-02-12 15:02] LABS: Potassium 3.8 mmol/L (3.5-5.1); Sodium 141 mmol/L (136-145)
[2025-02-12 15:03] LABS: Anion Gap 12 (5-15); Carbon Dioxide 22 mmol/L (20-31)
[2025-02-12 15:05] LABS: Calcium 7.4 mg/dL (8.7-10.4); Chloride 107 mmol/L (98-107)
[2025-02-12 15:08] LABS: BUN/Creatinine Ratio 12.4 (10.0-20.0)
[2025-02-12 15:13] LABS: Blood Urea Nitrogen 24 mg/dL (9-23); Glucose 373 mg/dL (74-106)
[2025-02-12] MEDS ORDERED: DEXTROSE (50%) 50ML SYRG IV PRN (16:15)
--- NOTE | 2025-02-12 16:18 | DVHPNRES ---
Progress Note Date Seen: Feb 12, 2025 Resident Creating Document: ANABELL ORDOÑEZ RESIDENT Medical Necessity Reason Pt with a Central, PICC or Fol: Yes The following are medically ne: Central Line, Jones Catheter Reason for jones catheter: Strict I&O Subjective Review of Systems Patient is a 44-year-old male with known history of type 1 diabetes mellitus who presented on 01/06/2025 via EMS for altered level of consciousness. Per EMS, the patient was found unresponsive with a blood glucose of 931 and received 400 cc IV fluids on route. On arrival he exhibited hypoxia, generalized weakness, increased work of breathing necessitating intubation and mechanical ventilation. Patient was started on IV insulin drip, Zosyn and vancomycin with bicarbonate for severe acidosis. A right femoral central line, midline and peripheral IVs were also placed. Of note, patient has a history of poor adherence to his insulin therapy. Per patient's father, patient lives alone in a trailer and had not been heard from since 01/02/2025. Patient was last hospitalized at the [facility] in November 2024 for DKA. On 01/07/2025, patient developed lip swelling while still intubated, chart review revealed a penicillin allergy. Zosyn was discontinued and patient was treated with methylprednisolone and transitioned to meropenem. Nephrology was consulted for RADHA and hypernatremia. A 01/10/2025, patient had begun to improve and was weaned off sedation and was extubated on 01/12/2025 and transferred telemetry. Antibiotics were discontinued at that time due to uncertainty about the cause of leukocytosis (steroids versus infection). However, WBCs continued to trend upwards and the patient developed low-grade fevers, subsequently restarted on linezolid and aztreonam. Patient has bilateral diabetic foot ulcers, left side more advanced than right. MRI of bilateral extremities shows mild subcutaneous edema, possibly cellulitis but no signs of osteomyelitis. Patient was also noted to have a pressure related ulcer to the left heel. Lower extremity arterial Doppler showed no significant stenosis. Vascular surgery evaluated the ulcers but recommended no interventions at this time. Podiatry already on board. 01/20/2025: Held insulin Lantus, discontinued lispro, mild sliding scale q.4 hours only. Started IV fluconazole for candidal infection in the groin. Podiatry reconsulted for evaluation of bilateral lower extremity ulcers. GI consult for anemia and positive stool occult blood. Discontinued linezolid and aztreonam, started on cefepime, vancomycin and metronidazole. 01/21/25: notes improved but continued nausea, new onset abdominal pain -05/02, localized to mid abdomen. Patient refused MRI owing to abdominal pain, we will reattempt tomorrow. Added metoclopramide qD along with norco and morphine as needed. Blood glucose in 290s, resumed lantus 7units qAM, however, dropping blood sugar by 4pm therefore discontinued lantus again. Pt refuses to eat and has severe aversion to food 01/22/25: improved abdominal pain today 6-01/30, agreeable to CT abdomen however still refusing MRI L foot. Plan to reattempt tomorrow. new moderate R sided hydronephrosis noted, urology consulted. denies dyspnea, sob. improving nausea. 01/23/2025: Patient notes feeling weaker than yesterday, denies abdominal pain. On physical exam decreased breath sounds more prominent on the left side and some crackles bibasilar. Discontinued vancomycin and started patient on daptomycin. Repeated left foot MRI which showed cellulitis in the lateral 4 for deep to the 5th metatarsal bone marrow wound is noted with overlying dressing, no evidence of osteomyelitis. IV furosemide was increased to 40 mg b.i.d. and patient was transferred to D . 01/24/2025: Overnight patient was intubated due to increasing respiratory distress, patient also underwent thoracentesis with 900 mL of fluid removed on the left side. For starvation/diabetic ketoacidosis, patient was started on an insulin drip and D10, gap was closed and bicarb was stabilized at 20. Blood glucose was 100 with a insulin drip was stopped, patient was started on D5 water at 50 cc/hours. Nephrology increased IV Lasix to 80 mg b.i.d. along with plan for renal replacement therapy tentatively in the p.m.. 01/25/2025- patient received right IJ Dean cath HD cath yesterday. Dialysis done 1 L removed. Today patient continues to have right upper extremity edema 2+. Left upper extremity is restricted has trace pitting edema and restricted due to history of DVT. Patient also has 1 to trace pedal edema bilaterally. Up to mid shins. Patient is not requiring any vasopressors. Patient is ventilated and due to acute hypoxic respiratory failure. Patient has no p.o. intake due to large gastric bubble and possible gastroparesis from prolonged uncontrolled diabetes. We will do TPN via PICC line now and hold off any enteral feeds. Continue IV antibiotics. Patient is anemic less than 7, 1 unit PRBC. Tentative plan to get EPO with HD, which may help. No sources of obvious hemorrhage. We are continuing D5 W for hypernatremia. We will do some education vacation today and if goes well possible CPAP trials tomorrow. We will continue sliding scale insulin Q 2. Patient antibiotics IV is linezolid only. 01/26/2025-no dialysis today. No lower extremity edema. Right upper extremity edema looks improved. Today doing sedation vacation and CPAP trial. Some electrolyte abnormalities not concerning nephrology reviewed. Patient on dialysis but still makes some urine 150 dark brown color. Patient is getting broad-spectrum antibiotics. Clinimix. Sedation vacation but otherwise patient was on Versed and fentanyl. Heart rate upper end of normal in the 100s. Blood pressure stable. No vasopressors. We will decrease Accu-Cheks to q.4. Decrease D5 to 30, being used for recurrent hypoglycemia. Otherwise continue primary team's plan. 01/27/2025: Patient seen and examined at bedside. Noted to have fluid overload, severe scrotal swelling, 2+ lower extremity nonpitting edema up to the thighs along with scleral edema was noted. Urine output of 325 mL in the past 24 hours. Undergoing dialysis today. Had an apneic episode during CPAP trial on 01/26/2025. 01/28/2025: Patient seen and examined at bedside. Minimal improvement in edema, s/p dialysis yesterday on 01/27/2025. Continues to have nonpitting edema up to knees along with scleral and scrotal edema. Jaundiced appearance noted. 01/29/25: Patient seen and examined at bedside. improved UOP since yesterday, worsening inspiratory crackles and LE edema. completed dialysis today, required 4mcg/hr of norepinephrine during dialysis. noted to have scabbed lesions on the penis. 01/30/2025: Patient seen and examined at bedside, improved lower extremity edema. Detailed discussions held with patient's parents at bedside. 01/31/2025: Patient seen and examined [place] [id number] [place]. Discontinued linezolid today on day 8 of treatment, started IV vancomycin per pharmacy after approval from Nephrology to have the dose timed with dialysis sessions. Repleted potassium with 40 mEq KCl rider. Urine output 100 mL in the last 24 hours, 700 mL of stool output via rectal tube. 02/01/25 patient remains intubated. Sedated. Sedation includes fentanyl 175 Versed 8. Continues to getting IV antibiotics broad-spectrum. Patient on ventilator a.c. 18/450/30%/5.0. Fecal tube with liquid output. Jones scant urine dark brown. Left upper extremity with pitting edema, dry other extremities. Tachycardic 114 sinus tachycardia. Continue primary team's plan of IV antibiotics, ongoing bilateral effusions, continuing dialysis with Nephrology. Platelets stable.. We will continue primary team's plan. No changes today. 02/02/2025 doing trial of CPAP patient not following commands. He is also on HD. Pulmonology bedside recommending against Versed. Likely sedatives we will still be the system as patient is not making any urine. We will try sedation vacation as long as patient can tolerate it.. His pupils are minimally responsive to light. But cough and gag reflex are present. Currently Versed fentanyl and Precedex are turned off. He is on spontaneous breathing trial CPAP and doing well. We will continuing IV antibiotics. Multiple lab abnormalities high ALP, thrombocytopenia. Patient is not on any heparin for concern for hit. Likely liver failure, GI is onboard giving ursodeoxycholic acid. We need to get GGT, PT INR PTT. And continuing further evaluation. Primary team to continue management tomorrow. 02/03/25: Liver function continues to decline. L lower extremity plantar wound with necrotic eschar noted, scabbing penile lesions persistent. resumed vancomycin scheduled with dialysis. scheduled family meeting for tomorrw. 02/04/2025: Bilirubin and alkaline phosphatase trending upwards, patient looking more jaundiced than previous days. Scheduled for dialysis today, detailed discussion held with patient's father Mr. Rayshawn devine, decided goals of care DNR. 02/05/2025: Patient completed CPAP trial, successfully extubated. Liver function continues to worsen. Called to inform patient's father about patient's extubation, per father he will come in the a.m. for repeat family meeting. 02/06/25: Patient seen and examined at bedside, blood glucose dropped to 32, changed insulin to a mild sliding scale. Serum phosphorus 0.9, repleted. Liver function minimally improving. Urine output 1700 mL over 24 hours. Details and care plan discussed with patient's father Mr. Dockery at bedside. 02/07/25: WBCs trending upwards, overnight hemoglobin dropped to 6.5: S/p 1 PRBC transfusion, added IV ceftriaxone. Patient continues to be noncompliant, pulled out NG tube x7, tried pulling out Dean catheter. Currently on Lasix 7 milligrams/minute, once drip finishes, we will be transitioned to IV Lasix 40 mg b.i.d. ordered swallow evaluation. 02/10/25: Patient seen and exmained at bedside, improved appetite. progressing with PT. downgraded to OXANA 02/11/25: patinet downgraded to telemetery on 02/10/22. improved abdominal pain and appetite. added metoprolol for blood pressure control. DC pending SNF bed availability 02/12/2025: Patient appetite improved, noted to be having meals. Notes some nausea, IV metoclopramide as needed. Possible discharge in the a.m. to half-way facility. code status was revisited with the patient, patient was assessed to be AOx4 and confirmed full code status. Objective vital signs Vital Sign Date Time Temp Pulse Resp B/P (MAP) Pulse Ox O2 Delivery O2 Flow Rate FiO2 02/12/25 13:00 98.1 98 16 152/80 (104) 94 98.1 02/12/25 08:08 Room Air* 0 21 Total Intake and Output 02/11/25 02/11/25 02/12/25 15:00 23:00 07:00 Intake Total 520 ml 450 ml 240 ml Output Total 500 ml 260 ml Balance 520 ml -50 ml -20 ml medications Current Medications Medications Dose Ordered Sig/Zaria Route Start Time Stop Time Status Last Admin Dose Admin Famotidine 20 mg Q12HR IV 01/07/25 10:00 UNV Diagnostic Test (Pha) 1 strip IQ4HR 01/07/25 08:00 Cancel Calcium Gluconate/ Sodium Chloride 50 ml @ 100 mls/hr Q30M IV 01/08/25 17:30 01/08/25 18:29 Cancel Sodium Chloride 10 ml QSHIFT@10,22 IV 01/24/25 22:00 02/12/25 09:26 10 ML Diagnostic Test (Pha) 1 strip Q4HR 01/26/25 14:00 UNV Vancomycin HCl 0 ml @ 0 mls/hr UD IV 01/31/25 14:30 Cancel Vancomycin HCl 0 ml @ 0 mls/hr UD IV 02/03/25 16:45 Cancel Epoetin Paolo-epbx 10,000 unit TUTHSA SC 02/04/25 10:00 02/11/25 08:46 10,000 UNIT Albumin Human 100 ml @ 100 mls/hr PRN PRN IV 02/05/25 06:45 02/05/25 08:00 100 MLS/HR Levofloxacin/ Dextrose 100 ml @ 100 mls/hr Q48H IV 02/07/25 15:45 UNV Cefepime HCl 50 ml @ 50 mls/hr Q24H IV 02/08/25 17:00 02/11/25 16:13 50 MLS/HR Guaifenesin/ Dextromethorphan 10 ml Q6HP PRN PO 02/08/25 12:00 Morphine Sulfate 2 mg Q2HPRN PRN IV 02/08/25 12:00 02/12/25 11:28 2 MG Labetalol HCl 5 mg Q2HPRN PRN IV 02/09/25 11:15 02/12/25 05:32 5 MG Enteral Nutritional Formula 240 ml TIDWM PO 02/09/25 18:00 02/12/25 14:54 240 ML Tramadol HCl 50 mg Q6HP PRN PO 02/10/25 18:00 02/12/25 04:27 50 MG Ursodiol 300 mg BID PO 02/11/25 22:00 02/12/25 11:26 300 MG Furosemide 40 mg DAILY PO 02/12/25 10:00 Metoprolol Tartrate 25 mg BID PO 02/11/25 22:00 02/12/25 09:26 25 MG Metoclopramide HCl 5 mg Q6HP PRN PO 02/12/25 09:45 02/12/25 11:26 5 MG Spironolactone 25 mg DAILY PO 02/13/25 16:00 Diagnostic Test (Pha) 1 strip IQ4HR 02/12/25 20:00 UNV Insulin Human Regular IQ4HR SC 02/12/25 20:00 UNV Dextrose 50 ml UD PRN IV 02/12/25 16:15 UNV Examination General Appearance: Intubated and sedated. Malnourished, in mild distress. Jaundiced Head Exam: Normal inspection. No vision in right eye, decreased vision in left eye, minimally reactive pupils. Scleral edema Pulmonary/Respiratory: Chest non-tender. decreased bilateral breath sounds, no crackles, no wheezing. Cardiovascular/Chest: Tachycardic. No murmurs. No JVD. Abdominal Exam: Normal bowel sounds. Soft. normal abdomen, no visible veins, nontender No hepatospenomegaly. No masses Lower extremities: 2+ nonpitting lower extremity edema up to the thighs. Left heel pressure ulcer noted. Multiple diabetic foot ulcers on bilateral feet, largest 1 noted on left plantar foot with a dark black necrotic appearance Thoughts/Psych: Normal thought pattern. Appropriate mood and affect Skin Exam: improving groin lesions, redness noted along right gluteal area, penile scabs improved laboratory and microbiology Laboratory Tests 02/12/25 14:20 02/12/25 05:33 Test 02/12/25 14:20 Range/Units Serum Glucose 373 #H 74-106 mg/dL Microbiology Date/Time Source Procedure Growth Status 02/07/25 13:52 Blood Blood Culture - Final NO GROWTH AFTER 5 DAYS OF INCUBATION. Complete 01/26/25 08:46 Urine - Jones [place] Urine Culture - Final Complete 01/24/25 04:15 Sputum Gram Stain - Final Complete 01/24/25 04:15 Sputum Respiratory Culture - Final Complete 01/23/25 20:30 Pleural Fluid Gram Stain - Final Complete 01/23/25 20:30 Pleural Fluid Body Fluid Culture - Final Complete 01/19/25 16:06 Nose MRSA Screen - Final Complete 01/08/25 10:37 Stool Stool Culture - Final Complete 01/08/25 10:37 Stool Shiga Toxin I & II - Final Complete Labs and/or images reviewed: Labs reviewed by me, Image(s) reviewed by me Problem List/Assessment/Plan Problem List/Assessment/Plan Neurology # acute metabolic encephalopathy likely due to DKA vs Sepsis, improving # ICU/critical illness related deconditioning, improving - head CT from 01/07/2025: No acute territorial infarct, intracranial hemorrhage or mass effect - head CT from 01/19/2025: No acute intracranial abnormality - PT on board - tramadol prn for pain - monitor Cardiovascular # runs of AFib on EKG # prolonged QTC # Essential hypertension - avoiding QT prolonging drugs - echocardiogram from 07/20/2022: Overall preserved ventricular systolic function. EF 60%. Grade 1 diastolic dysfunction. - increased amlodipine to 10mg qD - repeat echo: Mild LVH and mild LV diastolic dysfunction. LVEF 65%. Slightly dilated left atrium. Moderately dilated RV and RA. Moderate degree pulmonary hypertension. Normal valves and no effusion. - monitor Respiratory # Community acquired pneumonia, Gram-positive versus Gram-negative # Acute hypoxic respiratory failure due to above, intubated and mechanically ventilated # moderate-large b/l Pleural effusions # moderate pulmonary hypertension with RVSP 46 mmHg - CXR 01/08/25: Bibasilar atelectasis or pneumonia. - CXR 01/20/25: Patchy bilateral airspace disease, [id number], slightly increased - previously on meropenem and vancomycin, stopped on 01/12/2025 - started on aztreonam on 01/17/2025, linezolid 01/16/2025 - discontinued aztreonam and linezolid on 01/20/2025 - started cefepime, vancomycin and metronidazole on 01/20/2025 - discontinued vancomycin 01/23/2025 - started linezolid, however, dc'ed linezolid on d/t thrombocytopenia, resumed vancomycin on 01/31 - s/p thoracentesis with 900 mL of fluid removed on 01/23/2025 GI # Acute intractable abdominal pain (01/21/25), improved # cholestasis of critical illness # Microcytic anemia possibly 2' to ?LGI bleed; Hb 7.8 # Moderate abdominopelvic ascites # Peptic ulcer prophylaxis # gallbladder hydrops # hypokalemia - stool occult blood positive - GI consult - CT abdomen pelvis from 01/07/2025: Nonspecific periportal edema. Incidental finding. -Pantoprazole 40 mg IV daily - serum lipase 113 - repeat CT abdomen pelvis (01/22/25): Moderate to large bilateral pleural effusions with patchy and consolidative infiltrates in the lung bases likely a combination of pneumonia and atelectasis.mLow to moderate volume abdominopelvic ascites and diffuse subcutaneous edema suggestive of anasarca. Moderate right hydronephrosis without visualization of hydroureter or obstructing calculi. This appearance is new versus CT scan dated 01/07/2025. Gallbladder hydrops without visualization of gallstones. This appearance may indicate acalculous cholecystitis. Fluid-filled colon with multiple air-fluid levels present, possibly related to diarrheal illness. No evidence of bowel obstruction, acute appendicitis, or other acute process in the abdomen or pelvis. 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 Moderate right hydronephrosis without visualization of hydroureter or obstructing calculi. This appearance is new versus CT scan dated 01/07/2025. Gallbladder hydrops without visualization of gallstones. This appearance may indicate acalculous cholecystitis. Fluid- filled colon with multiple air-fluid levels present, possibly related to diarrheal illness. No evidence of bowel obstruction, acute appendicitis, or other acute process in the abdomen or pelvis. - urology consulted - reconsulted nephrology - serum parathyroid hormone 185.9, corrected calcium 8.7 - currently running Lasix drip started on 02/04/25 Infectious disease # bilateral lower extremity cellulitis # left lower extremity diabetic foot ulcer on the plantar aspect growing Staph aureus # Sepsis due to above # left heel pressure ulcer # ruled out DVT # Fungal cutaneous infection in b/l groin # candidal balanitis with superimposed necrosis - MRI from 01/09/2025 shows Mild diffuse subcutaneous soft-tissue edema; possibly cellulitis. No bone marrow edema is present to suggest fracture or acute osteomyelitis. - bilateral lower extremity arterial Doppler: No hemodynamically significant stenosis based on peak systolic velocity criteria. - bilateral lower extremity venous Doppler: No right or left femoropopliteal venous thrombosis - discontinued aztreonam and linezolid on 01/20/2025 - started cefepime, vancomycin and metronidazole on 01/20/2025 - podiatry on board - left foot MRI: No MR evidence of osteomyelitis. Cellulitis and lateral 4 for deep of the 5th metatarsal bone were wound is noted overlying dressing. Edema in the intrinsic muscle of the foot may reflect sequelae of denervation, or myositis. - discontinued vancomycin 01/23/2025, started patient on daptomycin on 01/23/2025 - discontinued daptomycin, vancomycin and cefepime on 01/24/2025 - started linezolid on 01/24/2025 - discontinued linezolid on 01/31/2025 owing to dropping platelet count - started IV vancomycin per pharmacy after approval from Nephrology to have the dose timed with dialysis sessions on 01/31/25 - topical nystatin - added IV ceftriaxone 02/07/2025 Hem/onc # microcytic anemia # thrombocytosis likely secondary to sepsis # thrombocytopenia, worsening - s/p 4 PRBC transfusion - GI on board - monitor Endocrine # DKA, now resolved # recurrent episodes of hypoglycemia # severe protein calorie malnutrition # diabetic/starvation ketoacidosis, improved - discontinued lispro - holding insulin Lantus as patient continues to get hypoglycemic - mild sliding scale insulin - Accu-Cheks q4hr Diet pureed diet Lines - right PICC line paced on 01/24/2025 - right-sided Dean catheter placed on 01/24/2025 - Jones catheter exchanged on 01/26/2025 Drips Lasix at 20 milligrams/hour KCl Transeferred to OXANA 01/23/25 Downgraded to telemetry on 02/10/2025 Downgraded to med surge on 02/12/2025 Intubated on 01/06/25 Extubated on 01/12/25 Intubated again on 01/24/25 Extubated on 02/05/2025 Code status: Full code critical care time excluding procedures was 46 mins DC pending SNF bed availability Detailed discussion held with patient's father at bedside Plan discussed with Dr. Dan Plan discussed with: Patient, Other (Father, RN) My Orders My Orders Orders - ANABELL ORDOÑEZ RESIDENT Procedure Category Date Status Time Metoclopramide Tablet PHA 02/12/25 In Process (Reglan Tablet) 09:45 Discontinue Tele SATHYA 02/12/25 In Process 16:09 Transfer Orders XFER 02/12/25 Transmitted 16:09 Glucose Blood PHA 02/12/25 Logged (Accu-Chek Comfort 20:00 Insulin R (Human) PHA 02/12/25 Logged (Insulin R) 20:00 Dextrose 50% Syringe PHA 02/12/25 Logged 16:15 Complete Blood Count LAB 02/13/25 Verified 04:00 Comprehensive LAB 02/13/25 Verified Metabolic Panel 04:00 Dietary Evaluation Review Recommendations by RD: Increase Calorie Intake Comments: Nutrition Recommendation: 1) Vital AF 1.2Cal @ 25ml/hr along with Pro-stat 1 pk BID. start @ 20ml/hr, increase 10ml/hr Q4H until goal is reached. TF @ goal volume along with propofol, IV D5wNS0.45%, and Pro-stat provides 1684 kcal (100% energy needs), 75gm protein (100% protein needs), 487ml free water. 2) TPN to meet 75% estimated needs if remains NPO 3) Bryce 1 pk BID for DFU Expected Outcomes/Goals: DFU to improve To maintain/gain weight To meet at least 75% estimated needs Fu 2-3 days Interpretation of weight loss: up to 5% in 1 month Muscle Mass (Severe): Mod to Severe Depletion Protein Calorie Malnutrition: Non-Severe Is there a minimum of two crit: Yes Date of Service: Feb 12, 2025 Billing Provider: AMY DAN MD Common Visit Codes: 38592-ISABYLIR CARE 30-74 MIN ANABELL ORDOÑEZ Feb 12, 2025 16:17 AMY DAN MD Feb 13, 2025 12:46
[2025-02-12] MEDS: SPIRONOLACTONE 25 MG TAB PO ONE (16:31)
--- NOTE | 2025-02-12 19:09 | DVHPN2 ---
Consult Progress Note Date Seen: Feb 12, 2025 Subjective Patient reports: Other (remains on room air for several days , no longer tachycardic and mentation is improving as well as urine output is improving . off all tube feeds ) Objective vital signs Vital Sign Date Time Temp Pulse Resp B/P (MAP) Pulse Ox O2 Delivery O2 Flow Rate FiO2 02/12/25 17:00 98.5 66 16 154/90 (111) 97 98.5 02/12/25 08:08 Room Air* 0 21 Total Intake and Output 02/11/25 02/11/25 02/12/25 15:00 23:00 07:00 Intake Total 520 ml 450 ml 240 ml Output Total 500 ml 260 ml Balance 520 ml -50 ml -20 ml medications Current Medications Medications Dose Ordered Sig/Zaria Route Start Time Stop Time Status Last Admin Dose Admin Famotidine 20 mg Q12HR IV 01/07/25 10:00 UNV Diagnostic Test (Pha) 1 strip IQ4HR 01/07/25 08:00 Cancel Calcium Gluconate/ Sodium Chloride 50 ml @ 100 mls/hr Q30M IV 01/08/25 17:30 01/08/25 18:29 Cancel Sodium Chloride 10 ml QSHIFT@10,22 IV 01/24/25 22:00 02/12/25 09:26 10 ML Diagnostic Test (Pha) 1 strip Q4HR 01/26/25 14:00 UNV Vancomycin HCl 0 ml @ 0 mls/hr UD IV 01/31/25 14:30 Cancel Vancomycin HCl 0 ml @ 0 mls/hr UD IV 02/03/25 16:45 Cancel Epoetin Paolo-epbx 10,000 unit TUTHSA SC 02/04/25 10:00 02/11/25 08:46 10,000 UNIT Albumin Human 100 ml @ 100 mls/hr PRN PRN IV 02/05/25 06:45 02/05/25 08:00 100 MLS/HR Levofloxacin/ Dextrose 100 ml @ 100 mls/hr Q48H IV 02/07/25 15:45 UNV Guaifenesin/ Dextromethorphan 10 ml Q6HP PRN PO 02/08/25 12:00 Morphine Sulfate 2 mg Q2HPRN PRN IV 02/08/25 12:00 02/12/25 11:28 2 MG Labetalol HCl 5 mg Q2HPRN PRN IV 02/09/25 11:15 02/12/25 05:32 5 MG Enteral Nutritional Formula 240 ml TIDWM PO 02/09/25 18:00 02/12/25 17:43 240 ML Tramadol HCl 50 mg Q6HP PRN PO 02/10/25 18:00 02/12/25 04:27 50 MG Ursodiol 300 mg BID PO 02/11/25 22:00 02/12/25 11:26 300 MG Metoprolol Tartrate 25 mg BID PO 02/11/25 22:00 02/12/25 09:26 25 MG Metoclopramide HCl 5 mg Q6HP PRN PO 02/12/25 09:45 02/12/25 11:26 5 MG Spironolactone 25 mg DAILY PO 02/13/25 16:00 Diagnostic Test (Pha) 1 strip IQ4HR 02/12/25 20:00 Insulin Human Regular IQ4HR SC 02/12/25 20:00 Dextrose 50 ml UD PRN IV 02/12/25 16:15 Furosemide 40 mg DAILY PO 02/13/25 10:00 laboratory and microbiology Laboratory Tests 02/12/25 14:20 02/12/25 05:33 Test 02/12/25 14:20 Range/Units Serum Glucose 373 #H 74-106 mg/dL Problem List/Assessment/Plan Problems(with codes): (1) Elevated AFP (2) Fluid overload (3) Gallstones (4) Gallbladder hydrops (5) History of diabetic ketoacidosis (6) Intractable abdominal pain (7) Inadequate oral intake Problem List/Assessment/Plan - Acute hypoxic respiratory therapy Patient is a 44 year old with a past medical history of type 1 diabetes who presents with blood sugars of 940, altered mental status . was started on insulin drip and monitored in ICU . having respiratory distress and respiratory alkalosis . chest xray was unremarkable patient was started empirically on vancomycin and Zosyn . later developed swelling of the lips and out of concern of allergy Zosyn was stopped and switched to Aztreonam and vancomycin was stopped due to acute kidney injury and was switched to linezolid . patient has chronic bilateral foot wounds with no new ulcers , malnourished . both feet ulcers are on the planar surface with a necrotic planar base, on the right foot it looks newer with mild drainage. Currently tolerating antibiotics whitecount is 18.6 , creatinine is 2.24 and patient is on minimal vent and no requiring any presser support . microbiology cultures and respiratory cultures are negative . foot wound was swabbed and is growing MSSA and enterococcus facialis. unclear sensitivities . 01/18: growing MSSA and enterococcus that is sensitive to ampicillin and vancomycin . whitecount is at 21.6. 01/19: whitecount is 19.1 . blood sugars are more controlled . underwent MRI of feet bilaterally and no signs of osteomyelitis , only cellulitis 01/20: switched from aztreonam to cefepime and fluconazole because of candidal infection of the groin which is alse a concer for persistly elevated leukocytosis and ongoing visible cellulitis 01/21: worsening RADHA , may have to stop vancomycin early 01/22: Worsening RADHA , likely edema in the lungs . vancomycin troths was 19.3 on the higher end of normal 01/23: Chest xray shows worsening multifocal pneumonia , patient is also having worsening RADHA 01/24: Chest xray continues to show worsening multifocal pneumonia , worsening leukocytosis and levofed needs consistent with new pneumonia resulting in septic shock or volume overload 01/25: preliminary sputum culture shows mucus threads , no organisms , no growth . respiratory cultures show no growth . chest xray shows multifocal pneumonia , worse from prior . hemoglobin is at 7.5 01/26: whitecount at 12.8 , required blood transfusion for hemoglobin 6.2 . unclear where patient is having bleeding 01/27: preliminary urine and respiratory cultures are no growth to date . whitecount now at 11. Chest xray shows bilateral airspace disease in the right upper quadral ultrasound shows hepatomegaly with coarsened echo texture which could be seen in setting of liver disease fibrosis 01/28: whitecount down to normal , suspect infection is largely resolving 01/29:platelet drop likely related to linezolid use , if it drops under 100 would stop linezolid and switch to vancomycin 01/30: continues to have large volume of stool output and urine output is slowly improving . platelets have gone under 100 01/31: signs of infection appear to have subsided however patient continues to have issues with edema and liver failure and bleeding . 02/04: tolerating tube feeds 02/05: s/p excavation , remains on tube feeds . not on any presser support 02/06: no signs of ongoing infection 02/07:suspect hypoxia and mucositis is related to aspiration event from pulling out tube 02/08: preliminary blood cultures are no growth to date , NKB shows non obstructive gas pattern , lung pieces are unremarkable . chest xray shows interval removal of ET tube. Doppler ultrasound of legs shows no DVT 02/09: does not appear to have an active infection , will continue to monitor . vomiting events place patient at aspiration risk 02/10: no longer requiring dialysis 02/11: KB was done for abdominal pain and shows non retractable gas pattern 02/12: appears to be clinically improving , has not had a bowel movement in last severald ays Plan : - stop cefepime at this time - recommend bowel regime to help improve stool output - monitor clinically off all antibiotic therapy - continue strict aspiration precautions and monitoring respiratory status closely - defer to TI for evaluation of coffee ground Emeses - will fu on blood cultures - suspect leukocytosis and tachycardia is more related to blood loss anemia. - defer management of diarrhea and blood loss , anemia to GI services - defer to primary team regarding plan for diuresis in setting of possible volume overload and anemia workup otherwise suspect volume overload is etiology largely contributing to patients ongoing hypoxia - Continue topical nystatin 2x a day for growing fungal infection - f/u on any plural studies done , so far not consistent with parapneumonic pneumonia - f/u on pending blood cultures Plan discussed with: Other Dietary Evaluation Review Recommendations by RD: Increase Calorie Intake Comments: Nutrition Recommendation: 1) Vital AF 1.2Cal @ 25ml/hr along with Pro-stat 1 pk BID. start @ 20ml/hr, increase 10ml/hr Q4H until goal is reached. TF @ goal volume along with propofol, IV D5wNS0.45%, and Pro-stat provides 1684 kcal (100% energy needs), 75gm protein (100% protein needs), 487ml free water. 2) TPN to meet 75% estimated needs if remains NPO 3) Bryce 1 pk BID for DFU Expected Outcomes/Goals: DFU to improve To maintain/gain weight To meet at least 75% estimated needs Fu 2-3 days Interpretation of weight loss: up to 5% in 1 month Muscle Mass (Severe): Mod to Severe Depletion Protein Calorie Malnutrition: Non-Severe Is there a minimum of two crit: Yes LIZZY MOSER MD Feb 12, 2025 19:09
--- NOTE | 2025-02-12 19:09 | DVHPN2 ---
Consult Progress Note Date Seen: Feb 09, 2025 Subjective Patient reports: Feels better (no fever or chills, no diarrhea or rash), Other Objective vital signs Vital Sign Date Time Temp Pulse Resp B/P (MAP) Pulse Ox O2 Delivery O2 Flow Rate FiO2 02/12/25 17:00 98.5 66 16 154/90 (111) 97 98.5 02/12/25 08:08 Room Air* 0 21 Total Intake and Output 02/11/25 02/11/25 02/12/25 15:00 23:00 07:00 Intake Total 520 ml 450 ml 240 ml Output Total 500 ml 260 ml Balance 520 ml -50 ml -20 ml medications Current Medications Medications Dose Ordered Sig/Zaria Route Start Time Stop Time Status Last Admin Dose Admin Famotidine 20 mg Q12HR IV 01/07/25 10:00 UNV Diagnostic Test (Pha) 1 strip IQ4HR 01/07/25 08:00 Cancel Calcium Gluconate/ Sodium Chloride 50 ml @ 100 mls/hr Q30M IV 01/08/25 17:30 01/08/25 18:29 Cancel Sodium Chloride 10 ml QSHIFT@10,22 IV 01/24/25 22:00 02/12/25 09:26 10 ML Diagnostic Test (Pha) 1 strip Q4HR 01/26/25 14:00 UNV Vancomycin HCl 0 ml @ 0 mls/hr UD IV 01/31/25 14:30 Cancel Vancomycin HCl 0 ml @ 0 mls/hr UD IV 02/03/25 16:45 Cancel Epoetin Paolo-epbx 10,000 unit TUTHSA SC 02/04/25 10:00 02/11/25 08:46 10,000 UNIT Albumin Human 100 ml @ 100 mls/hr PRN PRN IV 02/05/25 06:45 02/05/25 08:00 100 MLS/HR Levofloxacin/ Dextrose 100 ml @ 100 mls/hr Q48H IV 02/07/25 15:45 UNV Guaifenesin/ Dextromethorphan 10 ml Q6HP PRN PO 02/08/25 12:00 Morphine Sulfate 2 mg Q2HPRN PRN IV 02/08/25 12:00 02/12/25 11:28 2 MG Labetalol HCl 5 mg Q2HPRN PRN IV 02/09/25 11:15 02/12/25 05:32 5 MG Enteral Nutritional Formula 240 ml TIDWM PO 02/09/25 18:00 02/12/25 17:43 240 ML Tramadol HCl 50 mg Q6HP PRN PO 02/10/25 18:00 02/12/25 04:27 50 MG Ursodiol 300 mg BID PO 02/11/25 22:00 02/12/25 11:26 300 MG Metoprolol Tartrate 25 mg BID PO 02/11/25 22:00 02/12/25 09:26 25 MG Metoclopramide HCl 5 mg Q6HP PRN PO 02/12/25 09:45 02/12/25 11:26 5 MG Spironolactone 25 mg DAILY PO 02/13/25 16:00 Diagnostic Test (Pha) 1 strip IQ4HR 02/12/25 20:00 Insulin Human Regular IQ4HR SC 02/12/25 20:00 Dextrose 50 ml UD PRN IV 02/12/25 16:15 Furosemide 40 mg DAILY PO 02/13/25 10:00 laboratory and microbiology Laboratory Tests 02/12/25 14:20 02/12/25 05:33 Test 02/12/25 14:20 Range/Units Serum Glucose 373 #H 74-106 mg/dL Problem List/Assessment/Plan Problems(with codes): (1) Elevated AFP (2) Fluid overload (3) Gallstones (4) Gallbladder hydrops (5) History of diabetic ketoacidosis (6) Cannabinoid hyperemesis syndrome (7) Intractable abdominal pain (8) Inadequate oral intake Problem List/Assessment/Plan - Acute hypoxic respiratory therapy Patient is a 44 year old with a past medical history of type 1 diabetes who presents with blood sugars of 940, altered mental status . was started on insulin drip and monitored in ICU . having respiratory distress and respiratory alkalosis . chest xray was unremarkable patient was started empirically on vancomycin and Zosyn . later developed swelling of the lips and out of concern of allergy Zosyn was stopped and switched to Aztreonam and vancomycin was stopped due to acute kidney injury and was switched to linezolid . patient has chronic bilateral foot wounds with no new ulcers , malnourished . both feet ulcers are on the planar surface with a necrotic planar base, on the right foot it looks newer with mild drainage. Currently tolerating antibiotics whitecount is 18.6 , creatinine is 2.24 and patient is on minimal vent and no requiring any presser support . microbiology cultures and respiratory cultures are negative . foot wound was swabbed and is growing MSSA and enterococcus facialis. unclear sensitivities . 01/18: growing MSSA and enterococcus that is sensitive to ampicillin and vancomycin . whitecount is at 21.6. 01/19: whitecount is 19.1 . blood sugars are more controlled . underwent MRI of feet bilaterally and no signs of osteomyelitis , only cellulitis 01/20: switched from aztreonam to cefepime and fluconazole because of candidal infection of the groin which is alse a concer for persistly elevated leukocytosis and ongoing visible cellulitis 01/21: worsening RADHA , may have to stop vancomycin early 01/22: Worsening RADHA , likely edema in the lungs . vancomycin troths was 19.3 on the higher end of normal 01/23: Chest xray shows worsening multifocal pneumonia , patient is also having worsening RADHA 01/24: Chest xray continues to show worsening multifocal pneumonia , worsening leukocytosis and levofed needs consistent with new pneumonia resulting in septic shock or volume overload 01/25: preliminary sputum culture shows mucus threads , no organisms , no growth . respiratory cultures show no growth . chest xray shows multifocal pneumonia , worse from prior . hemoglobin is at 7.5 01/26: whitecount at 12.8 , required blood transfusion for hemoglobin 6.2 . unclear where patient is having bleeding 01/27: preliminary urine and respiratory cultures are no growth to date . whitecount now at 11. Chest xray shows bilateral airspace disease in the right upper quadral ultrasound shows hepatomegaly with coarsened echo texture which could be seen in setting of liver disease fibrosis 01/28: whitecount down to normal , suspect infection is largely resolving 01/29:platelet drop likely related to linezolid use , if it drops under 100 would stop linezolid and switch to vancomycin 01/30: continues to have large volume of stool output and urine output is slowly improving . platelets have gone under 100 01/31: signs of infection appear to have subsided however patient continues to have issues with edema and liver failure and bleeding . 02/04: tolerating tube feeds 02/05: s/p excavation , remains on tube feeds . not on any presser support 02/06: no signs of ongoing infection 02/07:suspect hypoxia and mucositis is related to aspiration event from pulling out tube 02/08: preliminary blood cultures are no growth to date , NKB shows non obstructive gas pattern , lung pieces are unremarkable . chest xray shows interval removal of ET tube. Doppler ultrasound of legs shows no DVT 02/09: does nto appear to have an active infection , will continue to monitor . vomiting events place patient at aspiration risk Plan : - continue cefepime for now, discontinue in 24-48 hours - continue strict aspiration precautions and monitoring respiratory status closely - defer to TI for evaluation of coffee ground Emeses - will fu on blood cultures - suspect leukocytosis and tachycardia is more related to blood loss anemia. - defer management of diarrhea and blood loss , anemia to GI services - defer to primary team regarding plan for diuresis in setting of possible volume overload and anemia workup otherwise suspect volume overload is etiology largely contributing to patients ongoing hypoxia - Continue topical nystatin 2x a day for growing fungal infection - f/u on any plural studies done , so far not consistent with parapneumonic pneumonia - f/u on pending blood cultures Plan discussed with: Other Dietary Evaluation Review Recommendations by RD: Increase Calorie Intake Comments: Nutrition Recommendation: 1) Vital AF 1.2Cal @ 25ml/hr along with Pro-stat 1 pk BID. start @ 20ml/hr, increase 10ml/hr Q4H until goal is reached. TF @ goal volume along with propofol, IV D5wNS0.45%, and Pro-stat provides 1684 kcal (100% energy needs), 75gm protein (100% protein needs), 487ml free water. 2) TPN to meet 75% estimated needs if remains NPO 3) Bryce 1 pk BID for DFU Expected Outcomes/Goals: DFU to improve To maintain/gain weight To meet at least 75% estimated needs Fu 2-3 days Interpretation of weight loss: up to 5% in 1 month Muscle Mass (Severe): Mod to Severe Depletion Protein Calorie Malnutrition: Non-Severe Is there a minimum of two crit: Yes LIZZY MOSER MD Feb 12, 2025 19:09
--- NOTE | 2025-02-12 19:09 | DVHPN2 ---
Consult Progress Note Date Seen: Feb 10, 2025 Subjective Patient reports: Other (getting lasix and able to have some urine output , catheter was removed and is having improved breath sounds , less edema in the legs and mentation is slowly improving ) Objective vital signs Vital Sign Date Time Temp Pulse Resp B/P (MAP) Pulse Ox O2 Delivery O2 Flow Rate FiO2 02/12/25 17:00 98.5 66 16 154/90 (111) 97 98.5 02/12/25 08:08 Room Air* 0 21 Total Intake and Output 02/11/25 02/11/25 02/12/25 15:00 23:00 07:00 Intake Total 520 ml 450 ml 240 ml Output Total 500 ml 260 ml Balance 520 ml -50 ml -20 ml medications Current Medications Medications Dose Ordered Sig/Zaria Route Start Time Stop Time Status Last Admin Dose Admin Famotidine 20 mg Q12HR IV 01/07/25 10:00 UNV Diagnostic Test (Pha) 1 strip IQ4HR 01/07/25 08:00 Cancel Calcium Gluconate/ Sodium Chloride 50 ml @ 100 mls/hr Q30M IV 01/08/25 17:30 01/08/25 18:29 Cancel Sodium Chloride 10 ml QSHIFT@10,22 IV 01/24/25 22:00 02/12/25 09:26 10 ML Diagnostic Test (Pha) 1 strip Q4HR 01/26/25 14:00 UNV Vancomycin HCl 0 ml @ 0 mls/hr UD IV 01/31/25 14:30 Cancel Vancomycin HCl 0 ml @ 0 mls/hr UD IV 02/03/25 16:45 Cancel Epoetin Paolo-epbx 10,000 unit TUTHSA SC 02/04/25 10:00 02/11/25 08:46 10,000 UNIT Albumin Human 100 ml @ 100 mls/hr PRN PRN IV 02/05/25 06:45 02/05/25 08:00 100 MLS/HR Levofloxacin/ Dextrose 100 ml @ 100 mls/hr Q48H IV 02/07/25 15:45 UNV Guaifenesin/ Dextromethorphan 10 ml Q6HP PRN PO 02/08/25 12:00 Morphine Sulfate 2 mg Q2HPRN PRN IV 02/08/25 12:00 02/12/25 11:28 2 MG Labetalol HCl 5 mg Q2HPRN PRN IV 02/09/25 11:15 02/12/25 05:32 5 MG Enteral Nutritional Formula 240 ml TIDWM PO 02/09/25 18:00 02/12/25 17:43 240 ML Tramadol HCl 50 mg Q6HP PRN PO 02/10/25 18:00 02/12/25 04:27 50 MG Ursodiol 300 mg BID PO 02/11/25 22:00 02/12/25 11:26 300 MG Metoprolol Tartrate 25 mg BID PO 02/11/25 22:00 02/12/25 09:26 25 MG Metoclopramide HCl 5 mg Q6HP PRN PO 02/12/25 09:45 02/12/25 11:26 5 MG Spironolactone 25 mg DAILY PO 02/13/25 16:00 Diagnostic Test (Pha) 1 strip IQ4HR 02/12/25 20:00 Insulin Human Regular IQ4HR SC 02/12/25 20:00 Dextrose 50 ml UD PRN IV 02/12/25 16:15 Furosemide 40 mg DAILY PO 02/13/25 10:00 laboratory and microbiology Laboratory Tests 02/12/25 14:20 02/12/25 05:33 Test 02/12/25 14:20 Range/Units Serum Glucose 373 #H 74-106 mg/dL Problem List/Assessment/Plan Problems(with codes): (1) DKA (diabetic ketoacidosis) (2) BPH (benign prostatic hyperplasia) (3) Elevated AFP (4) Fluid overload (5) Gallstones (6) Gallbladder hydrops (7) History of diabetic ketoacidosis (8) Intractable abdominal pain (9) Inadequate oral intake Problem List/Assessment/Plan - Acute hypoxic respiratory therapy Patient is a 44 year old with a past medical history of type 1 diabetes who presents with blood sugars of 940, altered mental status . was started on insulin drip and monitored in ICU . having respiratory distress and respiratory alkalosis . chest xray was unremarkable patient was started empirically on vancomycin and Zosyn . later developed swelling of the lips and out of concern of allergy Zosyn was stopped and switched to Aztreonam and vancomycin was stopped due to acute kidney injury and was switched to linezolid . patient has chronic bilateral foot wounds with no new ulcers , malnourished . both feet ulcers are on the planar surface with a necrotic planar base, on the right foot it looks newer with mild drainage. Currently tolerating antibiotics whitecount is 18.6 , creatinine is 2.24 and patient is on minimal vent and no requiring any presser support . microbiology cultures and respiratory cultures are negative . foot wound was swabbed and is growing MSSA and enterococcus facialis. unclear sensitivities . 01/18: growing MSSA and enterococcus that is sensitive to ampicillin and vancomycin . whitecount is at 21.6. 01/19: whitecount is 19.1 . blood sugars are more controlled . underwent MRI of feet bilaterally and no signs of osteomyelitis , only cellulitis 01/20: switched from aztreonam to cefepime and fluconazole because of candidal infection of the groin which is alse a concer for persistly elevated leukocytosis and ongoing visible cellulitis 01/21: worsening RADHA , may have to stop vancomycin early 01/22: Worsening RADHA , likely edema in the lungs . vancomycin troths was 19.3 on the higher end of normal 01/23: Chest xray shows worsening multifocal pneumonia , patient is also having worsening RADHA 01/24: Chest xray continues to show worsening multifocal pneumonia , worsening leukocytosis and levofed needs consistent with new pneumonia resulting in septic shock or volume overload 01/25: preliminary sputum culture shows mucus threads , no organisms , no growth . respiratory cultures show no growth . chest xray shows multifocal pneumonia , worse from prior . hemoglobin is at 7.5 01/26: whitecount at 12.8 , required blood transfusion for hemoglobin 6.2 . unclear where patient is having bleeding 01/27: preliminary urine and respiratory cultures are no growth to date . whitecount now at 11. Chest xray shows bilateral airspace disease in the right upper quadral ultrasound shows hepatomegaly with coarsened echo texture which could be seen in setting of liver disease fibrosis 01/28: whitecount down to normal , suspect infection is largely resolving 01/29:platelet drop likely related to linezolid use , if it drops under 100 would stop linezolid and switch to vancomycin 01/30: continues to have large volume of stool output and urine output is slowly improving . platelets have gone under 100 01/31: signs of infection appear to have subsided however patient continues to have issues with edema and liver failure and bleeding . 02/04: tolerating tube feeds 02/05: s/p excavation , remains on tube feeds . not on any presser support 02/06: no signs of ongoing infection 02/07:suspect hypoxia and mucositis is related to aspiration event from pulling out tube 02/08: preliminary blood cultures are no growth to date , NKB shows non obstructive gas pattern , lung pieces are unremarkable . chest xray shows interval removal of ET tube. Doppler ultrasound of legs shows no DVT 02/09: does not appear to have an active infection , will continue to monitor . vomiting events place patient at aspiration risk 02/10: no longer requiring dialysis Plan : - continue cefepime for now, discontinue in 24-48 hours - continue strict aspiration precautions and monitoring respiratory status closely - defer to TI for evaluation of coffee ground Emeses - will fu on blood cultures - suspect leukocytosis and tachycardia is more related to blood loss anemia. - defer management of diarrhea and blood loss , anemia to GI services - defer to primary team regarding plan for diuresis in setting of possible volume overload and anemia workup otherwise suspect volume overload is etiology largely contributing to patients ongoing hypoxia - Continue topical nystatin 2x a day for growing fungal infection - f/u on any plural studies done , so far not consistent with parapneumonic pneumonia - f/u on pending blood cultures Plan discussed with: Other Dietary Evaluation Review Recommendations by RD: Increase Calorie Intake Comments: Nutrition Recommendation: 1) Vital AF 1.2Cal @ 25ml/hr along with Pro-stat 1 pk BID. start @ 20ml/hr, increase 10ml/hr Q4H until goal is reached. TF @ goal volume along with propofol, IV D5wNS0.45%, and Pro-stat provides 1684 kcal (100% energy needs), 75gm protein (100% protein needs), 487ml free water. 2) TPN to meet 75% estimated needs if remains NPO 3) Bryce 1 pk BID for DFU Expected Outcomes/Goals: DFU to improve To maintain/gain weight To meet at least 75% estimated needs Fu 2-3 days Interpretation of weight loss: up to 5% in 1 month Muscle Mass (Severe): Mod to Severe Depletion Protein Calorie Malnutrition: Non-Severe Is there a minimum of two crit: Yes LIZZY MOSER MD Feb 12, 2025 19:09
[2025-02-12] MEDS: ACCU-CHEK COMFORT CURVE STRIP VI SCH (20:37)
[2025-02-12] MEDS: InsuLIN REG 1unit/0.01ml Soln (100units/ml) SC SCH (20:39)
[2025-02-13 01:00] VITALS: BP 159/95; PULSE 91; RESP 19; TEMP 98.2; O2SAT 98
[2025-02-13 05:00] VITALS: BP 162/95; PULSE 88; RESP 19; TEMP 98.2; O2SAT 100
[2025-02-13 06:33] LABS: Alanine Aminotransferase 11 U/L (7-40); Anion Gap 12 (5-15); BUN/Creatinine Ratio 10.4 (10.0-20.0); Blood Urea Nitrogen 19 mg/dL (9-23); Potassium 3.6 mmol/L (3.5-5.1); Sodium 143 mmol/L (136-145)
[2025-02-13 06:36] LABS: Albumin 2.5 g/dL (3.2-4.8); Calcium 7.5 mg/dL (8.7-10.4); Carbon Dioxide 20 mmol/L (20-31); Chloride 111 mmol/L (98-107); Glucose 260 mg/dL (74-106); Total Protein 5.5 g/dL (5.7-8.2)
[2025-02-13 06:38] LABS: Hematocrit 27.4 % (41.0-53.0); Hemoglobin 8.7 g/dL (13.5-17.5); Mean Corpuscular Hemoglobin 28.2 pg (28.0-32.0); Mean Corpuscular Volume 89.1 fL (80.0-100.0)
[2025-02-13 06:42] LABS: Alkaline Phosphatase > 2300 U/L (46-116)
[2025-02-13 06:45] LABS: Bilirubin, Total 1.6 mg/dL (0.2-1.0)
[2025-02-13 07:08] LABS: Anisocytosis Slight; Total Cells Counted 100.0 (100)
[2025-02-13 08:00] VITALS: PULSE 84; RESP 16; O2SAT 100
[2025-02-13 09:00] VITALS: BP 165/96; PULSE 98; RESP 16; TEMP 97.9; O2SAT 99
[2025-02-13] MEDS: POTASSIUM EFFERVESENT TAB 25 MEQ PO ONE (09:15)
--- NOTE | 2025-02-13 09:44 | DVHPN2 ---
Progress Note - Dictate Date Seen: Feb 13, 2025 Medical Necessity Reason Pt with a Central, PICC or Fol: Yes The following are medically ne: Central Line, Jones Catheter Reason for jones catheter: Strict I&O Subjective No new complaints; sleeping comfortably Patient is tolerating diet Dean catheter was removed Patient undergoes PT and wound care Liver enzymes are trending down including his alkaline phosphatase Hemoglobin is up to 8.7; renal function stable Patient has received 4 units PRBC during this hospitalization vital signs Vital Sign Date Time Temp Pulse Resp B/P (MAP) Pulse Ox O2 Delivery O2 Flow Rate FiO2 02/13/25 09:00 97.9 98 16 165/96 (119) 99 97.9 02/12/25 20:00 Room Air* 0 21 Total Intake and Output 02/12/25 02/12/25 02/13/25 15:00 23:00 07:00 Intake Total 200 ml 650 ml 350 ml Output Total 400 ml 1450 ml Balance 200 ml 250 ml -1100 ml medications Current Medications Medications Dose Ordered Sig/Zaria Route Start Time Stop Time Status Last Admin Dose Admin Famotidine 20 mg Q12HR IV 01/07/25 10:00 UNV Diagnostic Test (Pha) 1 strip IQ4HR 01/07/25 08:00 Cancel Calcium Gluconate/ Sodium Chloride 50 ml @ 100 mls/hr Q30M IV 01/08/25 17:30 01/08/25 18:29 Cancel Sodium Chloride 10 ml QSHIFT@10,22 IV 01/24/25 22:00 02/12/25 21:55 10 ML Diagnostic Test (Pha) 1 strip Q4HR 01/26/25 14:00 UNV Vancomycin HCl 0 ml @ 0 mls/hr UD IV 01/31/25 14:30 Cancel Vancomycin HCl 0 ml @ 0 mls/hr UD IV 02/03/25 16:45 Cancel Epoetin Paolo-epbx 10,000 unit TUTHSA SC 02/04/25 10:00 02/11/25 08:46 10,000 UNIT Albumin Human 100 ml @ 100 mls/hr PRN PRN IV 02/05/25 06:45 02/05/25 08:00 100 MLS/HR Levofloxacin/ Dextrose 100 ml @ 100 mls/hr Q48H IV 02/07/25 15:45 UNV Guaifenesin/ Dextromethorphan 10 ml Q6HP PRN PO 02/08/25 12:00 Morphine Sulfate 2 mg Q2HPRN PRN IV 02/08/25 12:00 02/13/25 03:08 2 MG Labetalol HCl 5 mg Q2HPRN PRN IV 02/09/25 11:15 02/13/25 05:43 5 MG Enteral Nutritional Formula 240 ml TIDWM PO 02/09/25 18:00 02/12/25 17:43 240 ML Tramadol HCl 50 mg Q6HP PRN PO 02/10/25 18:00 02/12/25 04:27 50 MG Ursodiol 300 mg BID PO 02/11/25 22:00 02/12/25 21:55 300 MG Metoprolol Tartrate 25 mg BID PO 02/11/25 22:00 02/12/25 21:55 25 MG Metoclopramide HCl 5 mg Q6HP PRN PO 02/12/25 09:45 02/12/25 11:26 5 MG Spironolactone 25 mg DAILY PO 02/13/25 16:00 Diagnostic Test (Pha) 1 strip IQ4HR 02/12/25 20:00 02/13/25 05:56 1 STRIP Insulin Human Regular IQ4HR SC 02/12/25 20:00 02/13/25 05:59 9 UNITS Dextrose 50 ml UD PRN IV 02/12/25 16:15 Furosemide 40 mg DAILY PO 02/13/25 10:00 objective Patient lying in bed, status post extubation, on 2 l nc General: Sclerae icterus, malnourished, mucosae are moist Cardiovascular: Regular S1 an S2 rrr. Trace resolving pedal edema Respiratory: clear Abdomen: Soft, nontender, nondistended, normoactive bowel sounds, no rebound tenderness, no organomegaly, no masses Genitourinary: Jones seen MSK/skin: Mobilizes 4 limbs. Skin is dry and warm Neurological: No motor, no sensitive deficits, normal speech. Pupils are isocoric and reactive. laboratory and microbiology Laboratory Tests 02/13/25 05:46 Test 02/13/25 05:46 Range/Units Serum Glucose 260 #H 74-106 mg/dL Problems(with codes): (1) Elevated AFP (2) Gallstones (3) Gallbladder hydrops (4) Cannabinoid hyperemesis syndrome (5) Coffee ground emesis (6) Diabetic keto-acidosis (7) Malnourished Prognosis Plan Continue nutritional supplements Patient should now be stable to proceed with an MRCP to further evaluate persistent elevation in alkaline phosphatase His bilirubin is trending down at as are his AST and ALT Continue ursodiol 300 mg p.o. twice a day Awaiting placement once medically stabilized Dietary Evaluation Review Recommendations by RD: Increase Calorie Intake Comments: Nutrition Recommendation: 1) Vital AF 1.2Cal @ 25ml/hr along with Pro-stat 1 pk BID. start @ 20ml/hr, increase 10ml/hr Q4H until goal is reached. TF @ goal volume along with propofol, IV D5wNS0.45%, and Pro-stat provides 1684 kcal (100% energy needs), 75gm protein (100% protein needs), 487ml free water. 2) TPN to meet 75% estimated needs if remains NPO 3) Bryce 1 pk BID for DFU Expected Outcomes/Goals: DFU to improve To maintain/gain weight To meet at least 75% estimated needs Fu 2-3 days Interpretation of weight loss: up to 5% in 1 month Muscle Mass (Severe): Mod to Severe Depletion Protein Calorie Malnutrition: Non-Severe Is there a minimum of two crit: Yes Plan discussed with: Other (None) LETTY GENTILE MD Feb 13, 2025 09:43
[2025-02-13] MEDS ORDERED: NUTR-1045 PO (09:50)
[2025-02-13] MEDS ORDERED: INSREGI SC (09:50)
[2025-02-13] MEDS ORDERED: SPIR25TA PO (09:50)
[2025-02-13] MEDS ORDERED: FURO40TA4 PO (09:50)
[2025-02-13] MEDS ORDERED: MET25T PO (09:50)
[2025-02-13] MEDS: FUROSEMIDE 40 MG TAB PO SCH (09:54)
--- NOTE | 2025-02-13 10:19 | DVHDSRES ---
Discharge Summary Date of Admission Resident Creating Document: ANABELL ORDOÑEZ RESIDENT Jan 06, 2025 at 16:11 Date of Discharge: Feb 13, 2025 Admitting Diagnosis DKA Wounds: Left heel pressure ulcer noted. Multiple diabetic foot ulcers on bilateral feet, largest 1 noted on left plantar foot with a dark black necrotic appearance, present on admission improving groin lesions, redness noted along right gluteal area, penile scabs improved Labs/Diagnostic Data: Laboratory Results Test 02/13/25 05:46 02/12/25 16:03 02/12/25 05:33 02/09/25 05:00 White Blood Count 9.0 10^3/uL (4.4-10.8) Red Blood Count 3.08 10^6/uL (4.5-5.90) Hemoglobin 8.7 g/dL (13.5-17.5) Hematocrit 27.4 % (41.0-53.0) Mean Corpuscular Volume 89.1 fL (80.0-100.0) Mean Corpuscular Hemoglobin 28.2 pg (28.0-32.0) Mean Corpuscular Hemoglobin Concent 31.6 g/dL (32.0-36.0) Red Cell Distribution Width 25.2 % (11.8-14.3) Platelet Count 564 10^3/uL (140-450) Mean Platelet Volume 6.7 fL (6.9-10.8) Neutrophils (%) (Auto) % (37.0-80.0) Lymphocytes (%) (Auto) % (10.0-50.0) Monocytes (%) (Auto) % (0.0-12.0) Basophils (%) (Auto) % (0.0-2.0) Neutrophils # (Auto) 10 ^3/uL (1.6-8.6) Lymphocytes # (Auto) 10 ^3/uL (0.4-5.4) Monocytes # (Auto) 10 ^3/uL (0-1.3) Differential Total Cells Counted 100.0 (100) Neutrophils % (Manual) 54 (37.0-80.0) Band Neutrophils % (Manual) 0 Lymphocytes % (Manual) 33 (10.0-50.0) Monocytes % (Manual) 9 (0-12) Eosinophils % (Manual) 3 (0-7) Basophils % (Manual) 0 (0.0-2.0) Metamyelocytes % (manual) 0 Myelocytes % (Manual) 1 Promyelocytes % (Manual) 0 Blast Cells % (Manual) 0 Reactive Lymphocytes 0 Platelet Estimate Increased Large Platelets Few Anisocytosis (manual) Slight Sodium Level 143 mmol/L (136-145) Potassium Level 3.6 mmol/L (3.5-5.1) Chloride Level 111 mmol/L (98-107) Carbon Dioxide Level 20 mmol/L (20-31) Anion Gap 12 (5-15) Blood Urea Nitrogen 19 mg/dL (9-23) Creatinine 1.82 mg/dL (0.700-1.30) Glomerular Filtration Rate Calc 46 mL/min (>90) BUN/Creatinine Ratio 10.4 (10.0-20.0) Serum Glucose 260 mg/dL (74-106) Calcium Level 7.5 mg/dL (8.7-10.4) Total Bilirubin 1.6 mg/dL (0.2-1.0) Aspartate Amino Transferase (AST) < 8 U/L (13-40) Alanine Aminotransferase (ALT) 11 U/L (7-40) Alkaline Phosphatase > 2300 U/L (46-116) Total Protein 5.5 g/dL (5.7-8.2) Albumin 2.5 g/dL (3.2-4.8) POC Glucose 252 mg/dl (70-106) Magnesium Level 2.0 mg/dL (1.6-2.6) Random Vancomycin Level 15.2 ug/mL (5-10) Test 02/07/25 12:48 02/07/25 10:03 02/07/25 08:45 02/07/25 04:30 Ammonia < 10 umol/L (11-32) Haptoglobin 194 mg/dL (23-355) Reticulocyte Count (auto) 4.08 % (0.5-1.5) Lactate Dehydrogenase 259 U/L (120-246) Nucleated Red Blood Cells 3.0 % Phosphorus Level 2.7 mg/dL (2.4-5.1) Test 02/06/25 04:28 02/05/25 13:10 02/05/25 06:02 02/05/25 04:35 Direct Bilirubin 3.8 mg/dL (<0.3) Creatine Kinase 17 U/L (46-171) Vitamin D 25-Hydroxy 9.8 ng/mL (30.0-100) Blood Gas Specimen Type Arterial Blood Gas Sample Site Right radial Blood Gas Patient Temperature 37.0 Arterial Blood Date Drawn [id number] Arterial Blood pH 7.513 (7.350-7.450) Arterial Blood Partial Pressure CO2 35.8 mmHg (35.0-48.0) Arterial Blood Partial Pressure O2 111.9 mmHg (83.0-108.0) Arterial Blood HCO3 28.1 mmol/L (21.0-28.0) Arterial Blood Oxygen Saturation 98.1 % (94.0-98.0) Arterial Blood Base Excess 4.9 mmol/L (-2.0-3.0) Arterial Blood Oxyhemoglobin 96.7 % (94.0-98.0) Arterial Blood Carboxyhemoglobin 1.0 % (0.5-1.5) Arterial Blood Methemoglobin 0.4 % (0.0-1.5) Kyle Test Modified Blood Gas Total Hemoglobin 8.20 g/dL (13.5-17.5) Blood Gas Modality Vent - cpap Blood Gas Spontaneous Rate 19 FiO2 % 30.0 Blood Gas Pressure Support 8 Blood Gas PEEP or CPAP 5.0 Blood Gas Set Respiration Rate 18.0 Blood Gas Tidal Volume 450.0 Microcytosis Slight Test 02/03/25 15:54 02/03/25 05:18 01/31/25 04:41 01/30/25 04:42 Iron Level 44 ug/dL (65-175) Total Iron Binding Capacity 110 ug/dL (250-425) Percent Iron Saturation 40.0 % (20-55) Eosinophils (%) (Auto) 5.2 % (0.0-7.0) Eosinophils # (Auto) 0.4 10 ^3/uL (0-0.8) Basophils # (Auto) 0 10 ^3/uL (0-0.2) Prothrombin Time 11.9 sec (9.3-11.8) Prothrombin Time INR 1.14 (0.9-1.15) Activated Partial Thromboplast Time 28.0 SEC (24.5-34.5) Gamma Glutamyl Transpeptidase 1425 U/L (<73) B-Type Natriuretic Peptide 184.80 pg/mL (0-100) Target Cells Few Test 01/29/25 06:00 01/29/25 05:59 01/29/25 04:45 01/28/25 16:15 Anti-Nuclear Antibody Screen Negative (Negative) Blood Gas Critical Value Read Back yes Blood Gas Notified Whom Blood Gas Notified Time [id number] Blood Gas Notified By tin cutter aliza Ferritin 351.7 ng/mL (22-322) Hepatitis A Antibody Total Positive (Negative) Hepatitis B Surface Antigen Negative (Negative) Hepatitis B Surface Antibody Negative (Negative) Hepatitis B Core Total Antibody Negative (Negative) Hepatitis C Antibody Negative (Negative) Lactic Acid Level 2.4 mmol/L (0.4-2.0) Test 01/28/25 13:26 01/28/25 08:41 01/28/25 04:39 01/25/25 05:01 Miscellaneous Referred Test (Rm Tmp [facility] Parathyroid Hormone (Intact) 185.9 pg/mL (18.4-80.1) Beta-Hydroxybutyric Acid 0.053 mmol/L (< 0.4) Hypochromasia (manual) Slight Stomatocytes Few Triglycerides Level 101 mg/dL (< 150) Test 01/24/25 08:42 01/24/25 04:43 01/23/25 23:54 01/23/25 20:30 Hepatitis A IgM Antibody Negative Hepatitis B Core IgM Antibody Negative (Negative) Elfego Cells Moderate Schistocytes Few Blood Gas Liter Flow 60.00 Body Fluid Source Pleural fluid Body Fluid pH 7.0 Body Fluid WBC (Manual) 102 CUMM (0-200) Body Fluid RBC (Manual) 0 CUMM (0-2000) Body Fluid Mononuclear Cells 50 % Body Fluid Polymorphonuclear Cells 50 % (0-25) Body Fluid Glucose 182 mg/dL (.) Body Fluid Total Protein 0.7 g/dL (.) Body Fluid Lactate Dehydrogenase 140 IU/L (.) Test 01/22/25 17:30 01/22/25 09:30 01/21/25 18:33 01/10/25 11:50 Urine Color Colorless (Yellow) Urine Clarity Turbid (Clear) Urine pH 6.0 (5.0-9.0) Urine Specific Randolph 1.011 (1.001-1.035) Urine Protein 2+ (Negative) Urine Ketones Negative (Negative) Urine Blood 3+ /uL (Negative) Urine Nitrite Negative (Negative) Urine Bilirubin Negative (Negative) Urine Urobilinogen Normal mg/dL (Negative) Urine Leukocyte Esterase Negative /uL (Negative) Urine RBC 702 /hpf (0 - 3) Urine Microscopic WBC < 1 /HPF (0-3) Urine Squamous Epithelial Cells Few /hpf (<5) Urine Bacteria None seen /hpf (None Seen) Urine Hyaline Casts Few /lpf (0 - 2) Urine Mucus Few (None Seen) Urine Glucose 2+ mg/dL (Normal) Cholesterol Level 105 mg/dL (< 200) LDL Cholesterol 41 mg/dL (< 100) HDL Cholesterol 37 mg/dL (40-59) Lipase 116 U/L (12-53) Urine Creatinine 26.27 mg/dL (30.0-125.0) Urine Protein/Creatinine Ratio 7.12 Urine Sodium 79 mmol/L (40-220) Urine Total Protein 187.1 mg/dL (1-14) Test 01/09/25 03:00 01/08/25 18:27 01/08/25 10:37 01/06/25 23:08 Hemoglobin A1c 8.9 % A1C (<5.7) Urine Osmolality 300 mOsm/kg Stool Occult Blood Positive (Negative) Stool Occult Blood Sample #3 (Negative) Stool for White Cells Moderate Specimen Drawn By Test 01/06/25 16:10 01/06/25 15:00 01/06/25 13:12 Urine Opiates Screen Neg (NEGATIVE) Urine Fentanyl Screen Neg (NEGATIVE) Urine Barbiturates Screen Neg (NEGATIVE) Urine Phencyclidine Screen Neg (NEGATIVE) Urine Amphetamines Screen Neg (NEGATIVE) Urine Benzodiazepines Screen Neg (NEGATIVE) Urine Cocaine Screen Neg (NEGATIVE) Urine Cannabinoids Screen Pos (NEGATIVE) Troponin I High Sensitivity 15 ng/L (</=54) Serum Osmolality 420 mOsm/kg (278-298) Other Laboratory Tests 02/13/25 05:46 Brief Hx & Hospital Course: This is a 44-year-old male with a history of poorly controlled type 1 diabetes mellitus who was admitted on 01/06/2025 after being found unresponsive with a blood glucose of 931 mg/dL. He was hypoxic and in respiratory distress, requiring intubation and mechanical ventilation. Initial management included IV insulin, fluids, bicarbonate, and broad-spectrum antibiotics. He had a prior hospitalization for DKA in November 2024 and had not been seen since 01/02/2025. Imaging revealed no acute intracranial abnormalities. He was diagnosed with acute metabolic encephalopathy likely secondary to DKA and sepsis, and ICU- related deconditioning, which improved with physical therapy. Initial Management (): Intubated for respiratory failure. Treated with IV insulin, Zosyn (later discontinued due to allergy), vancomycin, and bicarbonate. Developed RADHA and hypernatremia. Extubated on 01/12/2025 after clinical improvement. Infectious Workup and Foot Ulcers (): Persistent leukocytosis led to antibiotic changes. MRI of feet showed cellulitis without osteomyelitis. Podiatry and vascular surgery consulted. Started IV fluconazole for groin candidiasis. Abdominal Pain and Hydronephrosis (): Developed severe abdominal pain and nausea. CT showed right-sided hydronephrosis. Urology consulted. MRI of left foot confirmed cellulitis. Daptomycin initiated. Respiratory Decompensation and Dialysis (): Reintubated due to respiratory distress. Thoracentesis performed. Dialysis initiated via right IJ catheter. TPN started due to gastroparesis. Developed fluid overload and scrotal edema. Liver Dysfunction and Sedation Management (): Liver enzymes and bilirubin trended upward. GI started ursodeoxycholic acid. CPAP trials attempted. Sedation weaned off. Pupils sluggish but cough/gag reflex intact. Continued dialysis and antibiotics. Goals of Care and Extubation (): Liver function worsened. New necrotic eschar on left plantar foot. Family meeting held; patient designated DNR. Successfully extubated on 02/05/2025. Recovery Phase (): Blood glucose dropped to 32; insulin adjusted. Liver function showed minimal improvement. WBCs trended up; ceftriaxone added. Patient became intermittently noncompliant (e.g., pulling NG tube). Appetite improved, progressing with PT. Downgraded to [facility] on 02/10 and telemetry on 02/11. Code status changed back to full code by the patient after reassessment. Procedures Intubation and mechanical ventilation (twice) Central line and Dean catheter placement Thoracentesis (900 mL removed) Dialysis (intermittent HD) Discharge Plan Disposition: Discharge to Nursing Home Facility (SNF) Follow-up: Nephrology, Endocrinology, GI, Podiatry Wound Care: Ongoing care for diabetic foot ulcers and groin skin fold fungal infection Nutrition: Monitor for gastroparesis, continue nutritional support Code Status: Full Code (confirmed 02/12/2025) During the hospital stay, he experienced recurrent episodes of hypoglycemia, prompting adjustments to his insulin regimen. He was transitioned to a mild sliding scale and Lantus was held. He developed community-acquired pneumonia with bilateral pleural effusions and underwent thoracentesis on 01/23/2025, removing 900 mL of fluid. He was treated with multiple antibiotics including meropenem, vancomycin, aztreonam, linezolid, cefepime, daptomycin, and ceftriaxone, with adjustments based on renal function and platelet counts. He was reintubated on 01/24/2025 due to respiratory distress and successfully extubated on 02/05/2025. He developed cholestasis of critical illness, gallbladder hydrops, and microcytic anemia with a jalil hemoglobin of 6.5 g/dL. GI consultation was obtained, and he received pantoprazole for ulcer prophylaxis and ursodeoxycholic acid for liver dysfunction. Imaging revealed moderate ascites, anasarca, and right-sided hydronephrosis. He was treated for RADHA on CKD stage 3 background with intermittent hemodialysis. Lasix drip was initiated and transitioned to IV Lasix 40 mg BID. Electrolyte abnormalities including hypokalemia, hypophosphatemia, and hypoalbuminemia were managed appropriately. He had bilateral lower extremity cellulitis and a left plantar diabetic foot ulcer growing Staph aureus. MRI ruled out osteomyelitis. Podiatry was involved in wound care. He also had candidal balanitis with necrosis and fungal groin infections treated with topical nystatin. Vascular surgery deferred intervention. Doppler studies ruled out DVT and significant arterial stenosis. Cardiac evaluation revealed runs of atrial fibrillation, prolonged QTc, and moderate pulmonary hypertension. Echocardiogram showed preserved EF, mild LVH, and dilated right heart chambers. Metoprolol 25 mg b.i.d. was added.. Neurologically, he had sluggish pupils but intact gag and cough reflex during sedation. Pain was managed with tramadol PRN. He received four PRBC transfusions for anemia. Thrombocytopenia worsened during linezolid therapy, prompting its discontinuation. Liver function continued to decline with elevated bilirubin and alkaline phosphatase. A hepatitis panel, KARINA, and ferritin were ordered. He was placed on a pureed diet and showed improved appetite and tolerance by discharge. Lines placed included a right PICC and Dean catheter on 01/24/2025. Owens catheter was exchanged on 01/26/2025. He was transferred to [facility] on 01/23/2025, downgraded to telemetry on 02/10/2025, and to med-surg on 02/12/2025. Code status was confirmed as full code on 02/12/2025 after reassessment. Multiple discussions were held with the patients father, Mr. Sarkis Tabares, regarding goals of care and clinical updates. At discharge, the patient was alert and oriented, tolerating oral intake, and progressing with physical therapy. Discharge is pending SNF bed availability. Discharge planning time 62 minutes Operations or Procedures CT HEAD WITHOUT CONTRAST: HISTORY: aloc COMPARISON: CT HEAD WITHOUT CONTRAST on DOS: 06/29/23 CONTRAST: Study was performed without contrast. TECHNIQUE: Axial images from the skull base to the vertex with coronal and sagittal reformatted images. Dose reduction technique was used on this scan by utilizing automated exposure control, adjustment of the mA and/or kV according to the patient size. DICOM format image data available to non-affiliated external healthcare facilities or entities on a secure, media free, reciprocally searchable basis with patient authorization for at least a 12 month period after the study. FINDINGS: No acute territorial infarct, intracranial hemorrhage, or mass effect. White matter appears normal for age. Basal cisterns grossly unremarkable. Cerebellum and posterior fossa structures without focal abnormality. The ventricles are unremarkable. There is mild mucosal thickening within the right maxillary antrum. The paranasal sinuses and mastoid air cells are otherwise clear. The osseous structures are unremarkable. IMPRESSION: 1. No acute territorial infarct, intracranial hemorrhage, or mass effect. CT ABDOMEN AND PELVIS WITHOUT CONTRAST: HISTORY: aloc COMPARISON: CT CT AB PEL WO CON-NO ORAL OR IV on DOS: 12/02/24, CT CT AB PEL WO CON-NO ORAL OR IV on DOS: 10/19/23, CT CT AB PEL WO CON-NO ORAL OR IV on DOS: 08/07/23, CT CT AB PEL WO CON-NO ORAL OR IV on DOS: 04/18/23, CT CT AB PEL WO CON- NO ORAL OR IV on DOS: 02/01/23 CONTRAST: IV contrast: None TECHNIQUE: Spiral CT performed from the dome of the diaphragm to the pubic symphysis without IV contrast. Dose reduction technique was used on this scan by utilizing automated exposure control, adjustment of the mA and/or kV according to the patient size. DICOM format image data available to non-affiliated external healthcare facilities or entities on a secure, media free, reciprocally searchable basis with patient authorization for at least a 12 month period after the study. FINDINGS: Limited evaluation of the solid organs in the absence of IV contrast. Quencher Operator: Unremarkable Lung bases: There are dependent atelectatic changes. Hepatobiliary: There is periportal edema. The gallbladder is distended with mild hyperdensity. Normal splenic parenchyma. The pancreas is unremarkable. : The kidneys are without solid mass, hydronephrosis or nephrolithiasis. A Owens catheter is present within the urinary bladder. The adrenal glands are unremarkable.. GI: No evidence for bowel obstruction. No mesenteric stranding or wall thickening. No intraperitoneal adenopathy, masses or fluid. A nasogastric tube and rectal tube are noted. The appendix is normal. Retroperitoneum: There are shotty retroperitoneal and right inguinal nodes. Trace fluid in the pelvis. Cardiovascular: Mild atherosclerotic vascular calcifications. Musculoskeletal: No focal lytic or blastic lesion. No fracture or acute derangement. IMPRESSION: 1. Nonspecific periportal edema. 2. Incidental findings as detailed. Bilateral Lower Extremity Arterial Duplex Clinical History: pad Comparison: US BILAT LOW EXT ART DUPLEX on DOS: 12/03/24 Technique: Duplex Doppler evaluation including color Doppler and spectral/pulsed waveform analysis of the lower extremity arteries was performed. Findings: RIGHT: Peak systolic velocities are less than 150 cm/sec. The waveforms are triphasic with diastolic flow. LEFT: Peak systolic velocities are less than 150 cm/sec. The waveforms are triphasic with diastolic flow. IMPRESSION: No hemodynamically significant stenosis based on peak systolic velocity criteria. Right common femoral artery is not visualized secondary to overlying bandages. REFERENCE VALUES, [facility] ([facility]) vascular Imaging Lab Criteria: Peak systolic velocity ranges (in cm/sec) are as follows: <150 cm/s - <20 % stenosis 150-200 cm/s - 20-49% stenosis 200-300 cm/s - 50-75% stenosis >300 cm/s -> 75% stenosis Bilateral lower extremity venous duplex Clinical History: dvt Comparison: None Technique: Duplex Doppler evaluation of the deep venous systems of both lower extremities from the common femoral veins to the popliteal veins including color Doppler and spectral/pulsed waveform analysis was performed. Findings: RIGHT SIDE: The common femoral vein demonstrates appropriate compressibility and waveform variability. There is compressibility/patency of the great saphenous vein at the proximal thigh. The femoral vein demonstrates appropriate compressibility and waveform variability. The deep femoral vein demonstrates appropriate compressibility and waveform variability. The popliteal vein demonstrates appropriate compressibility and waveform variability. There is normal compressibility at the tibioperoneal trunk. LEFT SIDE: The common femoral vein demonstrates appropriate compressibility and waveform variability. There is compressibility/patency of the great saphenous vein at the proximal thigh. The femoral vein demonstrates appropriate compressibility and waveform variability. The deep femoral vein demonstrates appropriate compressibility and waveform variability. The popliteal vein demonstrates appropriate compressibility and waveform variability. There is normal compressibility at the tibioperoneal trunk. Impression: 1. No right or left femoropopliteal venous thrombosis. INDICATION: Renal artery stenosis TECHNIQUE: Multiple real-time sonographic images of the kidneys and bladder were obtained. Duplex Doppler evaluation including color Doppler and spectral/pulsed waveform analysis of the bilateral renal arteries was performed. COMPARISON: None FINDINGS: The right kidney measures 13.4 cm in length. The right renal echogenicity, contour and cortical thickness are within normal limits. No hydronephrosis or large masses/calculi are seen. The left kidney measures 11.3 cm in length. The left renal echogenicity, contour, and cortical thickness are within normal limits. No hydronephrosis or large masses/calculi are seen. Aorta peak systolic velocity, 112 cm/s Right renal artery peak systolic velocity, 23 cm/s (< 180 cm/s = normal). Left renal artery peak systolic velocity 53 cm/s (< 180 cm/s = normal). Right RAR : 0.2 (< 3.5, normal) Left RAR 0.5 (< 3.5, normal) Right RI: 0.6 (< 0.75, normal) Left RI: 0.5 (< 0.75, normal) IMPRESSION: No findings to suggest renal artery stenosis. *Elana Castano Techniques in Noninvasive Vascular Diagnosis 2001 SSION #: [id number] EXAMINATION: MRI MRI L FOOT WO CONTRAST TECHNIQUE: Multisequence multiplanar MRI images were obtained of the right and left foot HISTORY: rule out osteomyelitis COMPARISON: None Findings/ IMPRESSION: Mild diffuse subcutaneous soft-tissue edema; possibly cellulitis. No bone marrow edema is present to suggest fracture or acute osteomyelitis. Clinical correlation advised. SSION #: [id number] EXAMINATION: MRI MRI L FOOT WO CONTRAST TECHNIQUE: Multisequence multiplanar MRI images were obtained of the right and left foot HISTORY: rule out osteomyelitis COMPARISON: None Findings/ IMPRESSION: Mild diffuse subcutaneous soft-tissue edema; possibly cellulitis. No bone marrow edema is present to suggest fracture or acute osteomyelitis. Clinical correlation advised. : CT HEAD WITHOUT CONTRAST INDICATION: rule out CVA TECHNIQUE: CT of the head without intravenous contrast. Radiation Dose Information: CT Dose: CTDI volume is 53.5 mGy. Dose-length product is 966.36 mGy*cm The dose indicators for CT are the volume Computed Tomography (CT) Dose Index (CTDIvol) and the Dose Length Product (DLP), and are measured in units of mGy and mGy-cm, respectively. These indicators are not patient dose, but values generated from the CT scanner acquisition factors. The report includes radiation exposure data for exposures received during this examination. COMPARISON: CT HEAD WITHOUT CONTRAST on DOS: 01/07/25, CT HEAD WITHOUT CONTRAST on DOS: 06/29/23 FINDINGS: There is no evidence of acute intracranial hemorrhage, extra-axial collection, mass effect, midline shift, herniation or hydrocephalus. The ventricles, sulci and cisterns are age appropriate. The redding-white differentiation is intact. Patchy periventricular and subcortical white matter hypoattenuation is nonspecific but may be related to small vessel ischemic disease. The visualized paranasal sinuses and mastoid air cells are clear. The surrounding soft tissues and osseous structures are unremarkable. IMPRESSION: 1. No acute intracranial abnormality. EXAM: CT CT AB PEL WO CON-NO ORAL OR IV HISTORY: ab pain COMPARISON: CT CT AB PEL WO CON-NO ORAL OR IV on DOS: 01/07/25, CT CT AB PEL WO CON-NO ORAL OR IV on DOS: 12/02/24, CT CT AB PEL WO CON-NO ORAL OR IV on DOS: 10/19/23, CT CT AB PEL WO CON-NO ORAL OR IV on DOS: 08/07/23, CT CT AB PEL WO CON- NO ORAL OR IV on DOS: 04/18/23 TECHNIQUE: Helical CT images of the abdomen and pelvis were performed without IV contrast. Sagittal and coronal reformatted images were obtained. This CT exam was performed using one or more of the following dose reduction techniques: Automated exposure control, adjustment of the mA and/or kv according to patient size, or the use of iterative reconstruction techniques. Radiation Dose: Abdomen/Pelvis: CTDIvol 6.34 mGy, DLP 399.01 mGy*cm. FINDINGS: CT abdomen: There are multiple old left lower rib fractures. There are moderate to large bilateral pleural effusions. There is atelectasis of the bilateral lower lobes. There are patchy infiltrates in the right middle lobe and lingula, not fully imaged here. The heart is not enlarged. There is low volume free fluid in the upper abdomen. There is moderate right hydronephrosis, without evidence of hydroureter or obstructing calculi. The gallbladder is hydropic, measuring 10 cm length x 4 cm width, without visualization of gallstones.The noncontrast liver, spleen, pancreas, left kidney, and bilateral adrenal glands are unremarkable. No abdominal aortic aneurysm. CT pelvis: No abnormal small bowel dilatation or free air. There is fluid throughout the colon, with multiple air-fluid levels present in the colon. There is low to moderate volume pelvic ascites. Owens catheter is present in the urinary bladder. The prostate is mildly enlarged. The appendix is not dilated. There is diffuse subcutaneous edema. There is mild osteoarthritis of the hips. There is question of early left femoral head AVN versus artifactual appearance. There is mild Lumbar degenerative disc disease. IMPRESSION: 1. Moderate to large bilateral pleural effusions with patchy and consolidative infiltrates in the lung bases likely a combination of pneumonia and atelectasis. 2. Low to moderate volume abdominopelvic ascites and diffuse subcutaneous edema suggestive of anasarca. 3. Moderate right hydronephrosis without visualization of hydroureter or obstructing calculi. This appearance is new versus CT scan dated 01/07/2025. 4. Gallbladder hydrops without visualization of gallstones. This appearance may indicate acalculous cholecystitis. 5. Fluid-filled colon with multiple air-fluid levels present, possibly related to diarrheal illness. 6. No evidence of bowel obstruction, acute appendicitis, or other acute process in the abdomen or pelvis. Bilateral Upper Extremity Venous Duplex Clinical History: upper extremity swelling Comparison: US BILAT LOWER DVT on DOS: 01/08/25, US LT UPPER DVT on DOS: 02/02/23 Findings: Duplex Doppler evaluation of the venous systems of the right and left lower neck and upper extremities including color Doppler and spectral/pulsed waveform analysis was performed. RIGHT SIDE: The internal jugular vein demonstrates appropriate compressibility and waveform variability. The subclavian vein is patent on color Doppler evaluation without intraluminal thrombus and demonstrates waveform variability. The visualized portion of the brachiocephalic vein is patent on color Doppler evaluation without intraluminal thrombus and demonstrates waveform variability. The axillary vein demonstrates appropriate compressibility and waveform variability. The brachial veins demonstrate appropriate compressibility and patency on Doppler evaluation. The basilic vein demonstrates appropriate compressibility and patency on Doppler evaluation. The cephalic vein demonstrates appropriate compressibility and patency on Doppler evaluation. LEFT SIDE: The internal jugular vein demonstrates appropriate compressibility and waveform variability. The subclavian vein is patent on color Doppler evaluation without intraluminal thrombus and demonstrates waveform variability. The visualized portion of the brachiocephalic vein is patent on color Doppler evaluation without intraluminal thrombus and demonstrates waveform variability. The axillary vein demonstrates appropriate compressibility and waveform variability. The brachial veins demonstrate appropriate compressibility and patency on Doppler evaluation. The basilic vein demonstrates appropriate compressibility and patency on Doppler evaluation. Left cephalic vein appears completely occluded and noncompressible. Impression: Left cephalic vein appears completely occluded and noncompressible. No thrombus in the right extremity. If clinical concern/symptoms persist or worsen, short-interval follow-up study is suggested. ICAL INDICATION: r/o osteomyelitis COMPARISON: MRI MRI R FOOT WO CONTRAST on DOS: 01/09/25 TECHNIQUE: Multiplanar, multisequence MRI of the right foot was performed without intravenous contrast. Contrast: None. INTERPRETATION: Bones: No evidence of acute fracture. There is no marrow replacing lesion on the T1 weighted images to suggest osteomyelitis. Soft tissues: No high-grade tendon or ligament injury. There is edema in the plantar surface of the lateral forefoot deep to the 5th metatarsal and the skin with an overlying dressing. No large fluid collection. There is edema in the intrinsic muscles of the forefoot. IMPRESSION: 1. No MR evidence of osteomyelitis. 2. Cellulitis in the lateral forefoot deep to the 5th metatarsal bone where a wound is noted with overlying dressing. 3. Edema in the intrinsic muscles of the foot may reflect sequelae of denervation, or myositis. KIDNEY HISTORY: hydronephrosis COMPARISON: US KIDNEY on DOS: 04/27/23 TECHNIQUE: Transverse and longitudinal grayscale and color doppler images were obtained of the kidneys and bladder. FINDINGS: Right kidney: Size: 11.4 cm Cortical thickness: Normal Echogenicity: Increased Stones: None Masses: None Hydronephrosis: yes Ureters: Not well visualized. Other: None Left kidney: Size: 9.9 cm Cortical thickness: Normal Echogenicity: Increased Stones: None Masses: None Hydronephrosis: None Ureters: Not well visualized. Other: None Bladder: Normal Other: Trace ascites and small pleural effusions. IMPRESSION: Mild to moderate right hydronephrosis, nonspecific. Echogenic kidneys can be seen with medical renal disease. EXAM: US GALLBLADDER HISTORY: gallstones; GB distension hydronephrosis COMPARISON: US ABDOMEN LIMITED on DOS: 04/19/23, RIGHT LOWER QUAD on DOS: 02/10/22, GBUS on DOS: 12/15/21 TECHNIQUE: Right upper quadrant ultrasound was performed. FINDINGS: The liver measures 21.8 cm. Coarsened texture of the liver. Common bile duct measures 3.8 mm. The gallbladder is unremarkable without stones. Right kidney measures 11.8 cm without hydronephrosis. Abdominal sites noted. IMPRESSION: 1. Hepatomegaly with coarsened echotexture which can be seen in the setting of liver disease / fibrosis. 2. Ascities T Upper Extremity Venous Duplex Clinical History: SWELLING,PICC LINE Comparison: US LT UPPER DVT on DOS: 02/02/23 Technique: Duplex Doppler evaluation of the venous system of the RIGHT lower neck and upper extremity including color Doppler and spectral/pulsed waveform analysis was performed. Findings: The internal jugular vein is not visualized. The subclavian vein is patent on color Doppler evaluation without intraluminal thrombus and demonstrates waveform variability. The visualized portion of the brachiocephalic vein is patent on color Doppler evaluation without intraluminal thrombus and demonstrates waveform variability. The axillary vein demonstrates appropriate compressibility and waveform variability. The brachial veins demonstrate appropriate compressibility and patency on Doppler evaluation. The basilic vein demonstrates appropriate compressibility and patency on Doppler evaluation. The cephalic vein demonstrates appropriate compressibility and patency on Doppler evaluation. Impression: Right internal jugular vein is not visualized. Otherwise, No venous thrombus identified in the RIGHT upper extremity vessels evaluated above. Condition at Discharge: Fair Final Diagnosis/Problems List # acute metabolic encephalopathy likely due to DKA vs Sepsis, improving # ICU/critical illness related deconditioning, improving # runs of AFib on EKG # prolonged QTC # Essential hypertension # Community acquired pneumonia, Gram-positive versus Gram-negative # Acute hypoxic respiratory failure due to above, intubated and mechanically ventilated # moderate-large b/l Pleural effusions # moderate pulmonary hypertension with RVSP 46 mmHg Acute intractable abdominal pain (01/21/25), improved # cholestasis of critical illness # Microcytic anemia possibly 2' to ?LGI bleed; Hb 7.8 # Moderate abdominopelvic ascites # Peptic ulcer prophylaxis # gallbladder hydrops # hypokalemia # RADHA likely hemodynamically mediated/VMN on possible CKD stage 3 # Anasarca due to above # severe hypoalbuminemia, serum albumin 2 # Diabetic nephropathy likely # Severe hypokalemia, improving # hypernatremia, now improved # asymptomatic hypocalcemia, corrected Ca 8.2mg/dl # moderate right-sided hydronephrosis # renal osteodystrophy probable # hypophosphatemia, repleted # bilateral lower extremity cellulitis # left lower extremity diabetic foot ulcer on the plantar aspect growing Staph aureus # Sepsis due to above # left heel pressure ulcer # ruled out DVT # Fungal cutaneous infection in b/l groin # candidal balanitis with superimposed necrosis # microcytic anemia # thrombocytosis likely secondary to sepsis # thrombocytopenia, worsening # DKA, now resolved # recurrent episodes of hypoglycemia # severe protein calorie malnutrition # diabetic/starvation ketoacidosis, improved Discharge Disposition: Nursing Home Facility Discharge Instruct/Medications Diet: Consistent carbohydrate Diet comment: Please avoid skipping meals/over eating, always check your blood glucose before administering insulin. Activity: No Restrictions, As Tolerated Follow Up/Referral: Please follow up with PCP in 1-2 weeks Please follow up in the discharge clinic Please follow up with egg and spice mixer in the outpatient for optimal management of type 1 diabetes Please follow up with Podiatry in the outpatient clinic Medications: Continue home medications Furosemide 40 mg p.o. daily Metoprolol 25 mg b.i.d. Spironolactone 25 mg p.o. daily Regular insulin per moderate sliding scale: Blood Glucose (mg/dL)Insulin Regular Dose = 70 Treat hypoglycemia per protocol [id number] additional insulin 120-150 2 units 151-200 4 units 201-250 6 units 251-300 8 units 301-350 10 units > 351 12 units Scheduled Furosemide (Furosemide), 40 MG PO DAILY Insulin Regular (Human) (Novolin R), 0 UNITS SC IQ4HR Metoclopramide Hcl (Reglan), 5 MG PO TID Metoprolol Tartrate (Lopressor), 25 MG PO BID Nutritional Supplements (Ensure Clear), 240 ML PO TIDWM Pantoprazole Sodium Sesquihydr (Pantoprazole Sodium), 40 MG PO DAILY@0600 Spironolactone (Aldactone), 25 MG PO DAILY Ursodiol (Ursodiol), 300 MG PO BID Discharge Statement: "Patient was advised to return to the ER or call 911 if any headaches, dizziness, shortness of breath, chest pain, abdominal pain, bleeding, fevers, or worsening of medical condition. Patient was counseled about treatment plan, medications, possible side effects, patientverbalized understanding. All questions were answered to the best of my ability. This discharge took greater then 30 minutes in planning, reviewing documentation, counseling the patient, and discussing with other team members." ASSESSMENT ASSESSMENT Assessment # acute metabolic encephalopathy likely due to DKA vs Sepsis, improving # ICU/critical illness related deconditioning, improving # runs of AFib on EKG # prolonged QTC # Essential hypertension # Community acquired pneumonia, Gram-positive versus Gram-negative # Acute hypoxic respiratory failure due to above, intubated and mechanically ventilated # moderate-large b/l Pleural effusions # moderate pulmonary hypertension with RVSP 46 mmHg Acute intractable abdominal pain (01/21/25), improved # cholestasis of critical illness # Microcytic anemia possibly 2' to ?LGI bleed; Hb 7.8 # Moderate abdominopelvic ascites # Peptic ulcer prophylaxis # gallbladder hydrops # hypokalemia # RADHA likely hemodynamically mediated/VMN on possible CKD stage 3 # Anasarca due to above # severe hypoalbuminemia, serum albumin 2 # Diabetic nephropathy likely # Severe hypokalemia, improving # hypernatremia, now improved # asymptomatic hypocalcemia, corrected Ca 8.2mg/dl # moderate right-sided hydronephrosis # renal osteodystrophy probable # hypophosphatemia, repleted # bilateral lower extremity cellulitis # left lower extremity diabetic foot ulcer on the plantar aspect growing Staph aureus # Sepsis due to above # left heel pressure ulcer # ruled out DVT # Fungal cutaneous infection in b/l groin # candidal balanitis with superimposed necrosis # microcytic anemia # thrombocytosis likely secondary to sepsis # thrombocytopenia, worsening # DKA, now resolved # recurrent episodes of hypoglycemia # severe protein calorie malnutrition # diabetic/starvation ketoacidosis, improved Date of Service: Feb 13, 2025 Billing Provider: AMY DAN MD Common Visit Codes: 33566-PGN/OBS DISCH DAY >30min ANABELL ORDOÑEZ Feb 13, 2025 10:19 AMY DAN MD Feb 15, 2025 12:43
--- NOTE | 2025-02-13 11:01 | DVHPN2 ---
Progress Note Date Seen: Feb 13, 2025 Resident Creating Document: MARTI POWELL RESIDENT Medical Necessity Reason Pt with a Central, PICC or Fol: Yes The following are medically ne: Central Line, Jones Catheter Reason for jones catheter: Strict I&O Subjective Review of Systems 02/06-patient is extubated, on room air, A&O x1-not oriented to place, reports that he has at home. Urine output 1700 cc per 24 hours. Phosphate 0.9. BUN/creatinine stable. Hemodialysis today. 02/07 - pt is alert, AxO2, hallucinating, wbc trendig up, Hb down. 1 PRBC ordered. DC IV lasix drip after transfusion and switch to iV BID 02/10-patient seen, A&O x2, not confused, not hallucinating, continue Lasix 40 mg daily. 02/11-patient seen, reports abdominal pain. KUB negative. Potassium and magnesium replenished. GI started ursodiol. DC Dean cath 02/12-overnight Dean catheter was removed. Urine output 760 cc. Hemoglobin stable. Potassium 2.9, replenished. Mag 2, increased aldactone to 75mg daily 02/03 - urine output 1850 cc in a day. Continue spironolactone 75 mg daily. Objective vital signs Vital Sign Date Time Temp Pulse Resp B/P (MAP) Pulse Ox O2 Delivery O2 Flow Rate FiO2 02/13/25 09:55 98 165/96 02/13/25 09:00 97.9 16 99 97.9 02/12/25 20:00 Room Air* 0 21 Total Intake and Output 02/12/25 02/12/25 02/13/25 15:00 23:00 07:00 Intake Total 200 ml 650 ml 350 ml Output Total 400 ml 1450 ml Balance 200 ml 250 ml -1100 ml medications Current Medications Medications Dose Ordered Sig/Zaria Route Start Time Stop Time Status Last Admin Dose Admin Famotidine 20 mg Q12HR IV 01/07/25 10:00 UNV Diagnostic Test (Pha) 1 strip IQ4HR 01/07/25 08:00 Cancel Calcium Gluconate/ Sodium Chloride 50 ml @ 100 mls/hr Q30M IV 01/08/25 17:30 01/08/25 18:29 Cancel Sodium Chloride 10 ml QSHIFT@22 IV 01/24/25 22:00 02/13/25 09:56 10 ML Diagnostic Test (Pha) 1 strip Q4HR 01/26/25 14:00 UNV Vancomycin HCl 0 ml @ 0 mls/hr UD IV 01/31/25 14:30 Cancel Vancomycin HCl 0 ml @ 0 mls/hr UD IV 02/03/25 16:45 Cancel Epoetin Paolo-epbx 10,000 unit TUTHSA SC 02/04/25 10:00 02/13/25 09:55 10,000 UNIT Albumin Human 100 ml @ 100 mls/hr PRN PRN IV 02/05/25 06:45 02/05/25 08:00 100 MLS/HR Levofloxacin/ Dextrose 100 ml @ 100 mls/hr Q48H IV 02/07/25 15:45 UNV Guaifenesin/ Dextromethorphan 10 ml Q6HP PRN PO 02/08/25 12:00 Morphine Sulfate 2 mg Q2HPRN PRN IV 02/08/25 12:00 02/13/25 03:08 2 MG Labetalol HCl 5 mg Q2HPRN PRN IV 02/09/25 11:15 02/13/25 05:43 5 MG Enteral Nutritional Formula 240 ml TIDWM PO 02/09/25 18:00 02/13/25 08:00 240 ML Tramadol HCl 50 mg Q6HP PRN PO 02/10/25 18:00 02/12/25 04:27 50 MG Ursodiol 300 mg BID PO 02/11/25 22:00 02/13/25 09:56 300 MG Metoprolol Tartrate 25 mg BID PO 02/11/25 22:00 02/13/25 09:55 25 MG Metoclopramide HCl 5 mg Q6HP PRN PO 02/12/25 09:45 02/12/25 11:26 5 MG Spironolactone 25 mg DAILY PO 02/13/25 16:00 Diagnostic Test (Pha) 1 strip IQ4HR 02/12/25 20:00 02/13/25 08:00 1 STRIP Insulin Human Regular IQ4HR MD 02/12/25 20:00 02/13/25 05:59 9 UNITS Dextrose 50 ml UD PRN IV 02/12/25 16:15 Furosemide 40 mg DAILY PO 02/13/25 10:00 02/13/25 09:54 40 MG Examination atient lying in bed, status post extubation, on room air General: Sclerae icterus, malnourished, mucosae are moist Cardiovascular: Tachycardic but Regular S1 and S2. No murmurs, gallops or rubs. No JVD elevation. Trace resolving pedal edema Respiratory: Decreased bilateral breath sounds, no wheezing or crackles heard. Abdomen: Soft, nontender, nondistended, normoactive bowel sounds, no rebound tenderness, no organomegaly, no masses Genitourinary: Jones seen MSK/skin: Mobilizes 4 limbs. Skin is dry and warm Neurological: No motor, no sensitive deficits, normal speech. Pupils are isocoric and reactive. Psych/Mental Status: Denies hallucinations, following commands, A&O x3 laboratory and microbiology Laboratory Tests 02/13/25 05:46 Test 02/13/25 05:46 Range/Units Serum Glucose 260 #H 74-106 mg/dL Microbiology Date/Time Source Procedure Growth Status 02/07/25 13:52 Blood Blood Culture - Final NO GROWTH AFTER 5 DAYS OF INCUBATION. Complete 01/26/25 08:46 Urine - Jones [place] Urine Culture - Final Complete 01/24/25 04:15 Sputum Gram Stain - Final Complete 01/24/25 04:15 Sputum Respiratory Culture - Final Complete 01/23/25 20:30 Pleural Fluid Gram Stain - Final Complete 01/23/25 20:30 Pleural Fluid Body Fluid Culture - Final Complete 01/19/25 16:06 Nose MRSA Screen - Final Complete 01/08/25 10:37 Stool Stool Culture - Final Complete 01/08/25 10:37 Stool Shiga Toxin I & II - Final Complete Labs and/or images reviewed: Labs reviewed by me, Image(s) reviewed by me Problem List/Assessment/Plan Problem List/Assessment/Plan Acute kidney injury superimposed Chronic Kidney Disease stage IIIB secondary hemodynamic mediated ATN, FeNa > 2% - needing dialysis Acute hypoxic respiratory failure, patient extubated and then reintubated Hypokalemia Anemia of chronic kidney disease DKA-resolved Uncontrolled diabetes mellitus Anasarca elevated bilirubin, ALK phos thrombocytopenia Severe protein calorie malnutrition Plan: BUN/creatinine stable, urine output stable, patient does not require hemodialysis at this moment. Recommend switching Lasix 40 IV daily to p.o. daily. Continue IV antibiotics Continue Spironolactone 75 mg daily. Started nifedipine ER 30mg daily Continue metoprolol 25 mg b.i.d. no heparin Epogen 3x a week Avoid hypotension poor overall prognosis Plan discussed with patient in which all questions have been answered Case discussed with Dr. Mandel Plan discussed with: Patient My Orders My Orders Orders - MARTI POWELL Procedure Category Date Status Time Spironolactone PHA 02/13/25 In Process (Aldactone) 16:00 Furosemide Tablet PHA 02/13/25 In Process (Lasix Tablet) 10:00 Dietary Evaluation Review Recommendations by RD: Increase Calorie Intake Comments: Nutrition Recommendation: 1) Vital AF 1.2Cal @ 25ml/hr along with Pro-stat 1 pk BID. start @ 20ml/hr, increase 10ml/hr Q4H until goal is reached. TF @ goal volume along with propofol, IV D5wNS0.45%, and Pro-stat provides 1684 kcal (100% energy needs), 75gm protein (100% protein needs), 487ml free water. 2) TPN to meet 75% estimated needs if remains NPO 3) Bryce 1 pk BID for DFU Expected Outcomes/Goals: DFU to improve To maintain/gain weight To meet at least 75% estimated needs Fu 2-3 days Interpretation of weight loss: up to 5% in 1 month Muscle Mass (Severe): Mod to Severe Depletion Protein Calorie Malnutrition: Non-Severe Is there a minimum of two crit: Yes MARTI POWELL RESIDENT Feb 13, 2025 11:01
[2025-02-13] MEDS: SPIRONOLACTONE 25 MG TAB PO SCH (11:42)
[2025-02-13] MEDS ORDERED: URSO300C2 PO (12:59)
[2025-02-13 14:05] VITALS: BP 178/98; PULSE 84; RESP 20
[2025-02-13] MEDS ORDERED: SPIRONOLACTONE 25 MG TAB PO SCH (16:00)
== END 2025-02-13 14:23 | DRG 720 ==
LOC: EDBD 12:40 → ER 12:40 → OVERFLOW 16:11 → ICU WEST 01-07 01:00 → TELE-CENTR 01-13 14:29 → CENTRAL 01-15 21:37 → TELE-CENTR 01-18 11:48 → CENTRAL 01-22 00:01 → TELE-CENTR 01-22 00:04 → DOU IN ICU 01-23 22:32 → ICU CENTRL 01-24 04:35 → TELE-CENTR 02-10 23:34 → CENTRAL 02-12 17:05
PROVIDERS: ADMIT Internal Medicine; ATTEND Emergency Medicine
PROC: 5A1955Z Respiratory Ventilation, Greater than 96 Consecutive Hours (ICD-10-PCS; principal; 2025-01-06)
PROC: 0BH17EZ Insertion of Endotracheal Airway into Trachea, Via Natural or Artificial Opening (ICD-10-PCS; 2025-01-06)
PROC: 05H933Z Insertion of Infusion Device into Right Brachial Vein, Percutaneous Approach (ICD-10-PCS; 2025-01-06)
PROC: B54MZZA Ultrasonography of Right Upper Extremity Veins, Guidance (ICD-10-PCS; 2025-01-06)
PROC: 06HY33Z Insertion of Infusion Device into Lower Vein, Percutaneous Approach (ICD-10-PCS; 2025-01-06)
PROC: 30233N1 Transfusion of Nonautologous Red Blood Cells into Peripheral Vein, Percutaneous Approach (ICD-10-PCS; 2025-01-07)
PROC: 05H933Z Insertion of Infusion Device into Right Brachial Vein, Percutaneous Approach (ICD-10-PCS; 2025-01-20)
PROC: B54MZZA Ultrasonography of Right Upper Extremity Veins, Guidance (ICD-10-PCS; 2025-01-20)
PROC: 5A09357 Assistance with Respiratory Ventilation, Less than 24 Consecutive Hours, Continuous Positive Airway Pressure (ICD-10-PCS; 2025-01-23)
PROC: 0W9B3ZZ Drainage of Left Pleural Cavity, Percutaneous Approach (ICD-10-PCS; 2025-01-23)
PROC: 5A1955Z Respiratory Ventilation, Greater than 96 Consecutive Hours (ICD-10-PCS; 2025-01-24)
PROC: 0BH17EZ Insertion of Endotracheal Airway into Trachea, Via Natural or Artificial Opening (ICD-10-PCS; 2025-01-24)
PROC: 5A1D70Z Performance of Urinary Filtration, Intermittent, Less than 6 Hours Per Day (ICD-10-PCS; 2025-01-24)
PROC: 02HV33Z Insertion of Infusion Device into Superior Vena Cava, Percutaneous Approach (ICD-10-PCS; 2025-01-24)
PROC: B548ZZA Ultrasonography of Superior Vena Cava, Guidance (ICD-10-PCS; 2025-01-24)
PROC: 02HV33Z Insertion of Infusion Device into Superior Vena Cava, Percutaneous Approach (ICD-10-PCS; 2025-01-24)
PROC: B548ZZA Ultrasonography of Superior Vena Cava, Guidance (ICD-10-PCS; 2025-01-24)
PROC: 5A1D70Z Performance of Urinary Filtration, Intermittent, Less than 6 Hours Per Day (ICD-10-PCS; 2025-01-27)
PROC: 5A1D70Z Performance of Urinary Filtration, Intermittent, Less than 6 Hours Per Day (ICD-10-PCS; 2025-01-29)
PROC: 5A1D70Z Performance of Urinary Filtration, Intermittent, Less than 6 Hours Per Day (ICD-10-PCS; 2025-01-31)
PROC: 5A1D70Z Performance of Urinary Filtration, Intermittent, Less than 6 Hours Per Day (ICD-10-PCS; 2025-02-04)
PROC: 5A1D70Z Performance of Urinary Filtration, Intermittent, Less than 6 Hours Per Day (ICD-10-PCS; 2025-02-05)
DX: A41.01 Sepsis due to Methicillin susceptible Staphylococcus aureus (principal); N17.0 Acute kidney failure with tubular necrosis; J96.01 Acute respiratory failure with hypoxia; R65.21 Severe sepsis with septic shock; E43 Unspecified severe protein-calorie malnutrition; E10.10 Type 1 diabetes mellitus with ketoacidosis without coma; J15.69 Pneumonia due to other Gram-negative bacteria; G92.8 Other toxic encephalopathy; J15.9 Unspecified bacterial pneumonia; R18.8 Other ascites; J90 Pleural effusion, not elsewhere classified; D69.6 Thrombocytopenia, unspecified; E87.0 Hyperosmolality and hypernatremia; E10.621 Type 1 diabetes mellitus with foot ulcer; E10.43 Type 1 diabetes mellitus with diabetic autonomic (poly)neuropathy; E83.51 Hypocalcemia; E83.39 Other disorders of phosphorus metabolism; D50.9 Iron deficiency anemia, unspecified; K82.1 Hydrops of gallbladder; L89.629 Pressure ulcer of left heel, unspecified stage; L97.528 Non-pressure chronic ulcer of other part of left foot with other specified severity; L97.518 Non-pressure chronic ulcer of other part of right foot with other specified severity; K80.21 Calculus of gallbladder without cholecystitis with obstruction; I27.20 Pulmonary hypertension, unspecified; E10.649 Type 1 diabetes mellitus with hypoglycemia without coma; I48.91 Unspecified atrial fibrillation; K31.84 Gastroparesis; E86.0 Dehydration; E87.6 Hypokalemia; K44.9 Diaphragmatic hernia without obstruction or gangrene; N13.6 Pyonephrosis; N40.0 Benign prostatic hyperplasia without lower urinary tract symptoms; B37.42 Candidal balanitis; E83.42 Hypomagnesemia; L03.115 Cellulitis of right lower limb; L03.116 Cellulitis of left lower limb; N25.0 Renal osteodystrophy; E10.22 Type 1 diabetes mellitus with diabetic chronic kidney disease; K21.9 Gastro-esophageal reflux disease without esophagitis; Z99.2 Dependence on renal dialysis; Z53.20 Procedure and treatment not carried out because of patient's decision for unspecified reasons; N50.89 Other specified disorders of the male genital organs; E87.1 Hypo-osmolality and hyponatremia; N18.32 Chronic kidney disease, stage 3b; I12.9 Hypertensive chronic kidney disease with stage 1 through stage 4 chronic kidney disease, or unspecified chronic kidney disease; G30.9 Alzheimer's disease, unspecified; E10.319 Type 1 diabetes mellitus with unspecified diabetic retinopathy without macular edema; F02.80 Dementia in other diseases classified elsewhere, unspecified severity, without behavioral disturbance, psychotic disturbance, mood disturbance, and anxiety; E88.09 Other disorders of plasma-protein metabolism, not elsewhere classified; E87.70 Fluid overload, unspecified; D75.839 Thrombocytosis, unspecified; D63.1 Anemia in chronic kidney disease; J98.11 Atelectasis; E83.41 Hypermagnesemia; H33.8 Other retinal detachments; Z91.199 Patient's noncompliance with other medical treatment and regimen due to unspecified reason; Z68.1 Body mass index [BMI] 19.9 or less, adult; Z86.718 Personal history of other venous thrombosis and embolism; Z83.3 Family history of diabetes mellitus; Z82.0 Family history of epilepsy and other diseases of the nervous system; Z82.49 Family history of ischemic heart disease and other diseases of the circulatory system; Z79.4 Long term (current) use of insulin; Z88.0 Allergy status to penicillin
CPT/HCPCS: 31500; 32555; 36415; 36430; 36556; 36569; 36600; 70450; 71045; 73718; 74018; 74176; 76705; 76775; 76937; 80048; 80053; 80061; 80074; 80076; 80202; 80307; 81001; 82010; 82140; 82270; 82306; 82310; 82550; 82570; 82728; 82805; 82962; 82977; 83010; 83036; 83540; 83550; 83605; 83615; 83690; 83735; 83880; 83930; 83935; 83970; 83986; 84100; 84132; 84156; 84295; 84300; 84478; 84484; 85007; 85014; 85018; 85025; 85027; 85045; 85048; 85610; 85730; 86038; 86704; 86706; 86708; 86803; 86850; 86900; 86901; 86920; 87040; 87045; 87070; 87077; 87081; 87086; 87186; 87205; 87340; 87427; 89051; 90935; 92610; 93005; 93306; 93925; 93970; 93971; 93975; 94002; 94003; 94640; 94660; 96361; 96365; 96375; 97110; 97163; 97530; 99291; 99292; G0378; J0330; J0692; J1450; J1642; J1815; J2003; J2185; J2250; J2405; J2470; J2543; J2704; J3480; J3490; J7060; J7131; P9047

== ENCOUNTER 2025-04-07 13:23 | Inpatient (IN) | payer MEDICAID ==
[~2025-04-07] VITALS: Ht 177.8 cm; Wt 61.3 kg
[~2025-04-07 13:23] MED LIST changes: +FURO40TA4 PO; +INSREGI SC; +MET25T PO; +NUTR-1045 PO; +SPIR25TA PO; +URSO300C2 PO
[2025-04-07] MEDS: ETOMIDATE (2MG/ML) 20ML VIAL IV ONE ×2 (13:23→13:30)
[2025-04-07] MEDS: ROCURONIUM 10MG/ML 10ML VIAL IV ONE ×2 (13:23→13:30)
[2025-04-07] MEDS: MIDAZOLAM DRIP 50 mg/50mL 50 ML IV SCH (13:30)
--- NOTE | 2025-04-07 13:39 | ED.PDOC ---
Altered Mental Status HPI Comments 45 year old male presents to the ED with a chief complaint of ALOC onset today (04/07/25). Per EMS, according to family, patient was last seen normal around 10:30, they noticed patient was altered, weak, called 911. Upon EMS arrival, BG was 21, patient's pupil were non-reactive, was not reacting to sternal rub. In route to ED, patient was given D10. Upon ED arrival patient was GCS 3, BG 102. Patient has a history of DKA. Upon ED arrival, patient was intubated, 8.0 ett tube 24 cm at teeth. PMHx DM insulin dependent, HTN. No other symptoms or modifying factors present at this time. Time Seen by MD: 11:20 Primary Care Provider: MANJU Reviewed Notes: Medications, Allergies Allergies: Coded Allergies: Penicillins (Verified Adverse Reaction, Severe, ANAPHYLAXIS , 01/08/25) Piperacillin (Verified Adverse Reaction, Severe, ANAPHYLAXIS , 01/08/25) Tazobactam (Verified Adverse Reaction, Severe, ANAPHYLAXIS , 01/08/25) Home Meds Active Scripts Ursodiol (Ursodiol) 300 Mg Cap, 300 MG PO BID for 30 Days, #60 CAP Prov:ANABELL ORDOÑEZ RESIDENT 02/13/25 Spironolactone (Aldactone) 25 Mg Tab, 25 MG PO DAILY for 30 Days, #30 TAB 2 Refills Prov:ANABELL ORDOÑEZ RESIDENT 02/13/25 Nutritional Supplements (ENSURE CLEAR) Bbry/Pom Liq, 240 ML PO TIDWM for 30 Days, #90 LIQ Prov:ANABELL ORDOÑEZ RESIDENT 02/13/25 Metoprolol Tartrate (Lopressor) 25 Mg Tb, 25 MG PO BID for 30 Days, #60 TAB Prov:ANABELL ORDOÑEZ RESIDENT 02/13/25 Insulin Regular (Human) (Novolin R) 100 Unit/Ml Inj, 0 UNITS SC IQ4HR for 30 Days, #1 INJ 3 Refills Blood Glucose (mg/dL)Insulin Regular Dose = 70 Treat hypoglycemia per protocol 71-119No additional insulin 120-150 2 units 151-200 4 units 201-250 6 units 251-300 8 units 301-350 10 units > 351 12 units Prov:ANABELL ORDOÑEZ RESIDENT 02/13/25 Furosemide (Furosemide) 40 Mg Tab, 40 MG PO DAILY for 30 Days, #30 TAB 2 Refills Prov:ANABELL ORDOÑEZ RESIDENT 02/13/25 Metoclopramide Hcl (Reglan) 5 Mg Tab, 5 MG PO TID for 14 Days, #42 TAB Prov:NGA GARCIA RESIDENT 12/06/24 Pantoprazole Sodium Sesquihydr (Pantoprazole Sodium) 40 Mg Tab, 40 MG PO DAILY@0600 for 30 Days, #30 TAB Prov:NGA GARCIA RESIDENT 12/06/24 Information Source: Emergency Med Personnel Mode of Arrival: EMS Severity: Moderate Timing: Hours Duration: Since onset Prehospital treatment: Other (D10) Quality: Decreased Alertness, Change in Behavior Recent: None History of: Diabetes, On Insulin Past Medical History PAST MEDICAL HISTORY: DM, HTN Surgical History: Denies all surgeries Family History Family History: Reviewed,noncontributory to illness Social History Smoker: Non-Smoker Alcohol: Denies ETOH Use Drugs: Marijuana Lives In: Home Unable to Obtain due to: Altered Mental Status Physical Exam General Appearance: Severe Distress HEENT: Normal ENT Inspection, Pharynx Normal, TMs Normal Neck: Full Range of Motion, Non-Tender, Normal, Normal Inspection Respiratory: Chest Non-Tender, Lungs Clear, No Accessory Muscle Use, No Respiratory Distress, Normal Breath Sounds Cardiovascular: No Edema, No JVD, No Murmur, No Gallop, Normal Peripheral Pulses, Regular Rate/Rhythm Breast Exam: Deferred Gastrointestinal: No Organomegaly, Non Tender, No Pulsatile Mass, Normal Bowel Sounds, Soft Genitalia: Deferred Pelvic: Deferred Rectal: Deferred Extremities: No calf tenderness, No pedal edema Musculoskeletal : Apperance: Normal Neurologic: Disoriented Cerebellar Function: NOT DONE Reflexes: NOT DONE Skin: Pallor Peripheral Pulses: 3+ Radial (R), 3+ Radial (L) Lymphatic: No Adenopathy Was a procedure done? Was a procedure done?: Yes Sedation Sedation?: Yes Informed consent obtained: Yes Sedation start time: 11:28 Sedation end time: 11:33 Sedation total time: 15min Central Line Recorder of insertion practice: Donor Specialist Occupation of non destructive testing specialist: Attending Physician Indication: Hypotension, CVP monitoring Room prepared for procedure: Yes Donor Specialist performed hand hygien: Yes Maximal sterile barrier precau: Mask/Eye shield, Sterile gown Skin Preparation: Chlorhexidine gluconate, Providine iodine Skin preparation completely dr: Yes Insertion site: Left, Internal jugular Central line catheter type: [id number] dialysis Number of lumens: 3 Antiseptic ointment applied to: Yes Post Assessment: Chest X-Ray Intubation Indication: Altered Mental Status Prep: Preoxygenation Pretreated with: Sedation (20 mg etomidate, 100 mg roccoronium) Intubation Approach: Orotracheal (8.0) Intubation size: cm (24 ) Informed consent obtained: Yes Risks/benefits/alt described: Yes Differential Diagnosis (ALOC) Differential Diagnosis: Hypoglycemia, Encephalopathy X-Ray, Labs, Meds, VS Vital Signs Date Time Temp Pulse Resp B/P (MAP) Pulse Ox O2 Delivery O2 Flow Rate FiO2 04/07/25 16:30 112/78 04/07/25 16:00 91 04/07/25 16:00 107/69 04/07/25 15:59 93.7 90 16 102/67 100 30 93.7 04/07/25 15:30 112/79 04/07/25 15:00 90 16 102/67 (79) 100 30 04/07/25 15:00 90/52 04/07/25 14:45 89 16 104/72 (83) 100 04/07/25 14:30 93.7 93 5 111/73 (86) 100 93.7 04/07/25 14:30 111/73 04/07/25 14:15 96 16 113/81 (92) 100 04/07/25 14:05 107 17 96/73 (81) 100 04/07/25 14:00 96/73 04/07/25 13:30 Room Air* 0 21 04/07/25 13:30 112/72 04/07/25 13:30 117 13 112/72 (85) 100 04/07/25 13:25 122 16 112/72 (85) 100 100 04/07/25 13:23 112/72 04/07/25 13:23 88 22 90/52 100 Lab Test 04/07/25 14:27 04/07/25 14:11 04/07/25 13:42 Range/Units Blood Gas Specimen Type Arterial Blood Gas Sample Site Right radial Blood Gas Patient Temperature 37.0 Arterial Blood Date Drawn [id number] Arterial Blood pH 7.316 L 7.350-7.450 Arterial Blood Partial Pressure CO2 34.1 L 35.0-48.0 mmHg Arterial Blood Partial Pressure O2 516.6 *H 83.0-108.0 mmHg Arterial Blood HCO3 17.0 L 21.0-28.0 mmol/L Arterial Blood Oxygen Saturation 99.7 H 94.0-98.0 % Arterial Blood Base Excess -8.3 L -2.0-3.0 mmol/L Arterial Blood Oxyhemoglobin 98.9 H 94.0-98.0 % Arterial Blood Carboxyhemoglobin 0.3 L 0.5-1.5 % Arterial Blood Methemoglobin 0.5 0.0-1.5 % Kyle Test Modified Blood Gas Total Hemoglobin 10.50 L 13.5-17.5 g/dL Blood Gas Set Respiration Rate 16.0 Blood Gas Modality Vent - ac FiO2 % 100.0 Blood Gas Tidal Volume 400.0 Blood Gas PEEP or CPAP 5.0 Blood Gas Critical Value Read Back Yes Blood Gas Notified Whom Tate jansen md Blood Gas Notified Time [id number] Blood Gas Notified By Andrea bowers Urine Color Dark-brown Yellow Urine Clarity Ex.turbid Clear Urine pH 5.5 5.0-9.0 Urine Specific [place] 1.013 1.001-1.035 Urine Protein 2+ H Negative Urine Ketones Negative Negative Urine Blood 3+ H Negative /uL Urine Nitrite Negative Negative Urine Bilirubin Negative Negative Urine Urobilinogen Normal Negative mg/dL Urine Leukocyte Esterase 3+ Negative /uL Urine RBC 253 0 - 3 /hpf Urine WBC Clumps Present None Seen /hpf Urine Microscopic WBC 4011 H 0-3 /HPF Urine Squamous Epithelial Cells None seen <5 /hpf Urine Bacteria None seen None Seen /hpf Urine Yeast (Budding) Moderate None Seen /hpf Urine Glucose Normal Normal mg/dL White Blood Count 7.9 4.4-10.8 10^3/uL Red Blood Count 3.33 L 4.5-5.90 10^6/uL Hemoglobin 9.3 L 13.5-17.5 g/dL Hematocrit 29.2 L 41.0-53.0 % Mean Corpuscular Volume 87.6 80.0-100.0 fL Mean Corpuscular Hemoglobin 28.0 28.0-32.0 pg Mean Corpuscular Hemoglobin Concent 31.9 L 32.0-36.0 g/dL Red Cell Distribution Width 18.2 H 11.8-14.3 % Platelet Count 161 140-450 10^3/uL Mean Platelet Volume 6.0 L 6.9-10.8 fL Neutrophils (%) (Auto) 74.4 37.0-80.0 % Lymphocytes (%) (Auto) 19.8 10.0-50.0 % Monocytes (%) (Auto) 5.5 0.0-12.0 % Eosinophils (%) (Auto) 0.0 0.0-7.0 % Basophils (%) (Auto) 0.3 0.0-2.0 % Neutrophils # (Auto) 5.9 1.6-8.6 10 ^3/uL Lymphocytes # (Auto) 1.6 0.4-5.4 10 ^3/uL Monocytes # (Auto) 0.4 0-1.3 10 ^3/uL Eosinophils # (Auto) 0 0-0.8 10 ^3/uL Basophils # (Auto) 0 0-0.2 10 ^3/uL Nucleated Red Blood Cells 0.1 % Prothrombin Time 10.8 9.3-11.8 sec Prothrombin Time INR 1.02 0.9-1.15 Activated Partial Thromboplast Time 29.8 24.5-34.5 SEC Sodium Level 148 H 136-145 mmol/L Potassium Level 3.3 L 3.5-5.1 mmol/L Chloride Level 118 H 98-107 mmol/L Carbon Dioxide Level 19 L 20-31 mmol/L Anion Gap 11 5-15 Blood Urea Nitrogen 15 9-23 mg/dL Creatinine 1.16 0.700-1.30 mg/dL Glomerular Filtration Rate Calc 79 >90 mL/min BUN/Creatinine Ratio 12.9 10.0-20.0 Serum Glucose 104 74-106 mg/dL Lactic Acid Level 1.5 0.4-2.0 mmol/L Calcium Level 6.9 L 8.7-10.4 mg/dL Total Bilirubin 0.2 0.2-1.0 mg/dL Aspartate Amino Transferase (AST) 12 L 13-40 U/L Alanine Aminotransferase (ALT) 11 7-40 U/L Alkaline Phosphatase 397 H 46-116 U/L Total Protein 4.6 L 5.7-8.2 g/dL Albumin 1.9 L 3.2-4.8 g/dL Current Medications Medications (Trade) Dose Ordered Sig/Zaria Route Start Time Stop Time Status Last Admin Rocuronium [place] 100 mg ONCE ONCE IV 04/07/25 13:45 04/07/25 13:46 DC 04/07/25 13:23 Etomidate 20 mg ONCE ONCE IV 04/07/25 13:45 04/07/25 13:46 DC 04/07/25 13:23 Midazolam HCl 50 ml @ 1 mls/hr Q24H IV 04/07/25 14:30 04/07/25 13:30 Cefepime HCl 50 ml @ 50 mls/hr ONCE ONCE IV 04/07/25 14:45 04/07/25 17:25 DC 04/07/25 15:17 Patient disoriented. He does not take care himself. Was hypoglycemic in the field. WBC within normal limits pain Urosepsis. Calcium is low. Had to intubate the patient. Sepsis causing hypoglycemia. Waiting for family. Continue monitoring. Time of 1ST Reevaluation: 11:50 Reevaluation 1ST: Unchanged Patient Education/Counseling: Other Family Education/Counseling: No Family Present SEPSIS Sepsis Screen Physician Orders Chest Xray 1 View (04/07/25 13:33) Accucheck (04/07/25 13:39) Blood Culture (04/07/25 13:39) Cefepime 1gm/50ml (Maxipime 1gm/50ml) (04/07/25 14:00) Notify Md If Map <65 Or Bp<90 (04/07/25 13:39) If Map<65 Start Vasopressor (04/07/25 13:39) Sepsis Reassesment After Fluid (04/07/25 14:39) Ventilator Orders (04/07/25 13:25) Abg W/ Co-Ox (04/07/25 14:00) Respiratory Culture W/ Gs (04/07/25 13:42) Midazolam Drip 50 Mg/50ml (Versed Drip 5 (04/07/25 14:30) Rass Sedation Scale Q1HR (04/07/25 14:29) Chest Portable (04/07/25 14:50) Chest Xray 1 View (04/07/25 16:03) Levofloxacin 500mg (Levaquin 500mg/ 100m (04/07/25 17:30) Vital Signs Date Time Temp Pulse Resp B/P (MAP) Pulse Ox O2 Delivery O2 Flow Rate FiO2 04/07/25 16:30 112/78 04/07/25 16:00 91 04/07/25 16:00 107/69 04/07/25 15:59 93.7 90 16 102/67 100 30 93.7 04/07/25 15:30 112/79 04/07/25 15:00 90 16 102/67 (79) 100 30 04/07/25 15:00 90/52 04/07/25 14:45 89 16 104/72 (83) 100 04/07/25 14:30 93.7 93 5 111/73 (86) 100 93.7 04/07/25 14:30 111/73 04/07/25 14:15 96 16 113/81 (92) 100 04/07/25 14:05 107 17 96/73 (81) 100 04/07/25 14:00 96/73 04/07/25 13:30 Room Air* 0 21 04/07/25 13:30 112/72 04/07/25 13:30 117 13 112/72 (85) 100 04/07/25 13:25 122 16 112/72 (85) 100 100 04/07/25 13:23 112/72 04/07/25 13:23 88 22 90/52 100 Laboratory Tests Test 04/07/25 13:42 Lactic Acid Level 1.5 mmol/L (0.4-2.0) White Blood Count 7.9 10^3/uL (4.4-10.8) Medications Medications Dose Ordered Sig/Zaria Route Start Time Stop Time Status Last Admin Dose Admin Cefepime HCl 50 ml @ 50 mls/hr ONCE ONCE IV 04/07/25 14:45 04/07/25 17:25 DC 04/07/25 15:17 Etomidate 20 mg ONCE ONCE IV 04/07/25 13:45 04/07/25 13:46 DC 04/07/25 13:23 Midazolam HCl 50 ml @ 1 mls/hr Q24H IV 04/07/25 14:30 04/07/25 13:30 Rocuronium [place] 100 mg ONCE ONCE IV 04/07/25 13:45 04/07/25 13:46 DC 04/07/25 13:23 Departure 1 Departure Time of Disposition: 17:00 Impression: Primary Impression: Metabolic encephalopathy Additional Impressions: Sepsis, unspecified organism Qualified Codes: A41.9 - Sepsis, unspecified organism Failure to thrive Qualified Codes: R62.7 - Adult failure to thrive Disposition: ADMITTED INPATIENT Admit to: Med Surg Condition: Guarded Critical Care Note Critical Care Time?: Yes (90 min-critical care time only) Stability Stability form required: No Heart Score Heart Score: Heart Score Response (Comments) Value History N/A 0 EKG N/A 0 Age N/A 0 Risk Factors N/A 0 Troponin N/A 0 Total 0 I personally scribed for ABHISHEK GLORIA MD ([email or web address]) on 04/07/25 at 13:39. Electronically submitted by Jessica Cook ([email or web address]). ABHISHEK GLORIA MD Apr 07, 2025 13:39
[2025-04-07 13:59] LABS: Hematocrit 29.2 % (41.0-53.0); Hemoglobin 9.3 g/dL (13.5-17.5); Mean Corpuscular Hemoglobin 28.0 pg (28.0-32.0); Mean Corpuscular Volume 87.6 fL (80.0-100.0); Nucleated Red Blood Cells % 0.1 %
[2025-04-07] MEDS: CEFEPIME 1GM/50ML 50 ML IV SCH (14:00)
--- NOTE | 2025-04-07 14:05 | DVH ---
CHEST RADIOGRAPH Indication: INTUBATION PLACEMENT Technique: Single frontal view of the chest was obtained Comparison: XY CHEST PORTABLE on DOS: 02/06/25, XY CHEST PORTABLE on DOS: 02/05/25, XY CHEST PORTABLE o n DOS: 02/04/25, XY CHEST PORTABLE on DOS: 02/03/25, XY CHEST PORTABLE on DOS: 02/02/25 FINDINGS: Lines and Tubes: Endotracheal tube 5 cm from the nata. Right PICC tip in the SVC. Lungs: No focal consolidation. Pleura: No effusion. No pneumothorax. Cardiomediastinal contours: Unremarkable Bones: No acute osseous abnormality. IMPRESSION: No acute cardiopulmonary disease.
[2025-04-07 14:12] LABS: Alanine Aminotransferase 11 U/L (7-40); Anion Gap 11 (5-15); BUN/Creatinine Ratio 12.9 (10.0-20.0); Blood Urea Nitrogen 15 mg/dL (9-23); Glucose 104 mg/dL (74-106)
[2025-04-07 14:13] LABS: Albumin 1.9 g/dL (3.2-4.8); Alkaline Phosphatase 397 U/L (46-116); Bilirubin, Total 0.2 mg/dL (0.2-1.0); Calcium 6.9 mg/dL (8.7-10.4); Carbon Dioxide 19 mmol/L (20-31); Chloride 118 mmol/L (98-107); Potassium 3.3 mmol/L (3.5-5.1); Sodium 148 mmol/L (136-145); Total Protein 4.6 g/dL (5.7-8.2)
[2025-04-07 14:14] LABS: INR 1.02 (0.9-1.15); Partial Thromboplastin Time 29.8 SEC (24.5-34.5); Prothrombin Time 10.8 sec (9.3-11.8)
[2025-04-07 14:33] LABS: Base Excess -8.3 mmol/L (-2.0-3.0)
[2025-04-07 15:17] LABS: Urine Budding Yeast MODERATE /hpf (None Seen); Urine Protein, UAD 2+ (Negative); Urine WBC Clumps PRESENT /hpf (None Seen)
[2025-04-07] MEDS: CEFEPIME 1GM/50ML 50 ML IV ONE ×2 (15:17→15:19)
[2025-04-07] MEDS: VANCOMYCIN 1GM/250ML KIT 250 ML IV ONE ×2 (15:20→17:45)
--- NOTE | 2025-04-07 15:23 | DVH ---
CHEST RADIOGRAPH Indication: og tube Technique: Single frontal view of the chest was obtained Comparison: XY CHEST XRAY 1 VIEW on DOS: 04/07/25, XY CHEST PORTABLE on DOS: 02/06/25, XY CHEST PORTABL E on DOS: 02/05/25 FINDINGS: Lines and Tubes: Endotracheal tube 3.9 cm above the nata. PICC line in place from the right arm wit h the tip in the superior vena cava above the right atrium. Enteric tube below the left diaphragm in the stomach. Lungs: No focal consolidation. Pleura: No effusion. No pneumothorax. Cardiomediastinal contours: Unremarkable Bones: No acute osseous abnormality. IMPRESSION: 1. Endotracheal tube in place 3.9 cm above the nata. 2. Enteric tube in the stomach below the left diaphragm 3. PICC line from the right arm in place in the superior vena cava. 4. If pneumoperitoneum is of clinical concern recommend CT abdomen and pelvis.
[2025-04-07 15:59] VITALS: BP 102/67; PULSE 90; RESP 16; TEMP 93.7; O2SAT 100
--- NOTE | 2025-04-07 16:46 | DVH ---
CHEST RADIOGRAPH Indication: central line placement Technique: Single frontal view of the chest was obtained Comparison: XY CHEST PORTABLE on DOS: 04/07/25, XY CHEST XRAY 1 VIEW on DOS: 04/07/25, XY CHEST PORTABL E on DOS: 02/06/25 FINDINGS: Lines and Tubes: Endotracheal tube 4.5 cm above the nata. PICC line from right arm is in place in s uperior vena cava the right atrium. Internal jugular catheter in place on the left with the tip in th e superior vena cava of the right atrium. Enteric tube in place below the left diaphragm. Lungs: No focal consolidation. Pleura: No effusion. No pneumothorax. Cardiomediastinal contours: Unremarkable Bones: No acute osseous abnormality. IMPRESSION: 1. Endo tracheal tube now in place 4.5 cm above the nata. 2. PICC line from right arm in place an enteric tube in the stomach. 3. There is now a central line in place in the left internal jugular vein with the tip in the superio r vena cava of the right atrium. 4. No pneumothorax is noted on the right or left at this time.
[2025-04-07] MEDS: NOREPINEPHRINE 8 MG/250ML KIT 250 ML IV SCH (17:15)
[2025-04-07] MEDS: NOREPINEPHRINE 8 MG/250ML KIT 250 ML IV ONE (17:43)
[2025-04-07 18:01] VITALS: BP 111/74; PULSE 103; RESP 20; O2SAT 100
[2025-04-07 20:24] VITALS: BP 106/72; PULSE 103; RESP 17; O2SAT 100
--- NOTE | 2025-04-07 20:47 | DVH ---
CLINICAL HISTORY: Mental status change. TECHNIQUE: Helical scanning was performed of the head from the skull base to the vertex. Multiplanar reconstructions were performed. This exam was performed according to our departmental dose optimizat ion program. Up-to-date CT equipment and radiation dose reduction techniques are utilized as appropri ate. CTDI 50.5 DLP 908.3 COMPARISON: CT HEAD WITHOUT CONTRAST on DOS: 01/19/25, CT HEAD WITHOUT CONTRAST on DOS: 01/07/25, CT HE AD WITHOUT CONTRAST on DOS: 06/29/23 FINDINGS: There is no evidence for acute intracranial hemorrhage, acute ischemic changes, mass, mass effect, or extra-axial fluid collection. There is no hydrocephalus or midline shift. There is no effacement of the cerebral sulci and basal subarachnoid cisterns. The redding-white matter differentiation is well abigail ntained. There is mild brain volume loss and minimal chronic small vessel ischemic change. There are large bilateral mastoid effusions. There is moderate right sphenoid mucosal thickening secr etions. IMPRESSION: NO ACUTE INTRACRANIAL ABNORMALITY SEEN. LARGE BILATERAL MASTOID EFFUSIONS. NEW FROM PREVIOUS EXAM. MODERATE RIGHT SPHENOID SINUS MUCOSAL THICKENING WITH SECRETIONS.
[2025-04-07 22:06] VITALS: BP 99/65; PULSE 100; RESP 21; O2SAT 100
[2025-04-07] MEDS ORDERED: VANCOMYCIN 1GM/250ML KIT 250 ML IV ONE (22:45)
[2025-04-07 22:56] LABS: Base Excess -9.7 mmol/L (-2.0-3.0)
[2025-04-07] MEDS: POTASSIUM CHL 20MEQ/100ML 100 ML IV ONE (23:21)
[2025-04-07 23:22] LABS: Hematocrit 29.5 % (41.0-53.0); Hemoglobin 9.3 g/dL (13.5-17.5); Mean Corpuscular Hemoglobin 28.3 pg (28.0-32.0); Mean Corpuscular Volume 89.9 fL (80.0-100.0); Nucleated Red Blood Cells % 0.0 %
--- NOTE | 2025-04-07 23:29 | DVHHPRES ---
History of Present Illness Resident Creating Document: FLACO SYED RESIDENT History of Present Illness As per the ER physician, patient is a 45-year-old male who presented with altered level of consciousness. As per family patient was found to normal around 1030 hours where they noticed the patient started to become weak and altered. Family called 911. On arrival patient's blood glucose was 21, patient's pupils were nonreactive, patient was not reacting to sternal rub. Patient's GCS was three initially. D50 was given. Patient was intubated. Patient was evaluated at bedside, patient is sedated and intubated. No further history could be obtained. No family was present Past medical history Diabetes mellitus, insulin dependent Hypertension Past surgical history Unknown Social history Unknown Family history Unknown Medication history Insulin Allergic history Penicillin, piperacillin and tazobactam Review of Systems Review of Systems Review of system could not be done as patient is sedated Allergies: Coded Allergies: Penicillins (Verified Adverse Reaction, Severe, ANAPHYLAXIS , 01/08/25) Piperacillin (Verified Adverse Reaction, Severe, ANAPHYLAXIS , 01/08/25) Tazobactam (Verified Adverse Reaction, Severe, ANAPHYLAXIS , 01/08/25) Medications Current Medications Medications Dose Ordered Sig/Zaria Route Start Time Stop Time Status Last Admin Dose Admin Cefepime HCl 50 ml @ 12.5 mls/hr Q8HR IV 04/07/25 14:00 Hold Midazolam HCl 50 ml @ 1 mls/hr Q24H IV 04/07/25 14:30 04/07/25 13:30 1 MLS/HR Norepinephrine Bitartrate 250 ml @ 3.75 mls/hr Q24H IV 04/07/25 17:45 04/07/25 17:15 3.75 MLS/HR Cefepime HCl 50 ml @ 12.5 mls/hr Q8HR IV 04/08/25 06:00 Future Hold Exam Vital Signs Vital Signs Date Time Temp Pulse Resp B/P (MAP) Pulse Ox O2 Delivery O2 Flow Rate FiO2 04/07/25 22:06 100 21 99/65 (76) 100 30 04/07/25 21:15 96.8 96.8 04/07/25 13:30 Room Air* 0 Exam Examination General Appearance: Sedated and intubated HEENT: EOMI Respiratory: Clear to auscultation, Normal air movement Cardiovascular: Regular rate, Normal S1, Normal S2 Abdominal: Normal bowel sounds Extremities: No cyanosis, No edema, Normal pulses, No tenderness/swelling Skin: No rashes, No breakdown Neuro: Sedated and intubated Labs/Xrays Labs Test 04/07/25 23:04 04/07/25 22:52 04/07/25 14:27 04/07/25 14:11 Range/Units White Blood Count 9.0 4.4-10.8 10^3/uL Red Blood Count 3.28 L 4.5-5.90 10^6/uL Hemoglobin 9.3 L 13.5-17.5 g/dL Hematocrit 29.5 L 41.0-53.0 % Mean Corpuscular Volume 89.9 80.0-100.0 fL Mean Corpuscular Hemoglobin 28.3 28.0-32.0 pg Mean Corpuscular Hemoglobin Concent 31.5 L 32.0-36.0 g/dL Red Cell Distribution Width 18.6 H 11.8-14.3 % Platelet Count 157 140-450 10^3/uL Mean Platelet Volume 6.1 L 6.9-10.8 fL Neutrophils (%) (Auto) 65.0 37.0-80.0 % Lymphocytes (%) (Auto) 30.0 10.0-50.0 % Monocytes (%) (Auto) 4.8 0.0-12.0 % Eosinophils (%) (Auto) 0.0 0.0-7.0 % Basophils (%) (Auto) 0.2 0.0-2.0 % Neutrophils # (Auto) 5.9 1.6-8.6 10 ^3/uL Lymphocytes # (Auto) 2.7 0.4-5.4 10 ^3/uL Monocytes # (Auto) 0.4 0-1.3 10 ^3/uL Eosinophils # (Auto) 0 0-0.8 10 ^3/uL Basophils # (Auto) 0 0-0.2 10 ^3/uL Nucleated Red Blood Cells 0.0 % Blood Gas Specimen Type Arterial Blood Gas Sample Site Left radial Blood Gas Patient Temperature 37.0 Arterial Blood Date Drawn [id number] Arterial Blood pH 7.402 7.350-7.450 Arterial Blood Partial Pressure CO2 22.1 L 35.0-48.0 mmHg Arterial Blood Partial Pressure O2 141.3 H 83.0-108.0 mmHg Arterial Blood HCO3 13.4 L 21.0-28.0 mmol/L Arterial Blood Oxygen Saturation 98.8 H 94.0-98.0 % Arterial Blood Base Excess -9.7 L -2.0-3.0 mmol/L Arterial Blood Oxyhemoglobin 97.9 94.0-98.0 % Arterial Blood Carboxyhemoglobin 0.3 L 0.5-1.5 % Arterial Blood Methemoglobin 0.6 0.0-1.5 % Kyle Test Modified Blood Gas Total Hemoglobin 10.30 L 13.5-17.5 g/dL Blood Gas Set Respiration Rate 16.0 Blood Gas Modality Vent - ac Blood Gas Spontaneous Rate 22 FiO2 % 30.0 Blood Gas Tidal Volume 400.0 Blood Gas Spontaneous Tidal Volume 472 Blood Gas PEEP or CPAP 5.0 Bl Gas Inspiratory/Expiratory Ratio 1:2.4 Specimen Drawn By Eloisa inman Blood Gas Critical Value Read Back Yes Blood Gas Notified Whom Tate jansen md Blood Gas Notified Time [id number] Blood Gas Notified By Andrea bowers Urine Color Dark-brown Yellow Urine Clarity Ex.turbid Clear Urine pH 5.5 5.0-9.0 Urine Specific Hooks 1.013 1.001-1.035 Urine Protein 2+ H Negative Urine Ketones Negative Negative Urine Blood 3+ H Negative /uL Urine Nitrite Negative Negative Urine Bilirubin Negative Negative Urine Urobilinogen Normal Negative mg/dL Urine Leukocyte Esterase 3+ Negative /uL Urine RBC 253 0 - 3 /hpf Urine WBC Clumps Present None Seen /hpf Urine Microscopic WBC 4011 H 0-3 /HPF Urine Squamous Epithelial Cells None seen <5 /hpf Urine Bacteria None seen None Seen /hpf Urine Yeast (Budding) Moderate None Seen /hpf Urine Glucose Normal Normal mg/dL Test 04/07/25 13:42 Range/Units Prothrombin Time 10.8 9.3-11.8 sec Prothrombin Time INR 1.02 0.9-1.15 Activated Partial Thromboplast Time 29.8 24.5-34.5 SEC SEPSIS Sepsis Screen Date sepsis recognized/suspect: Apr 07, 2025 Time Sepsis recognized/suspect: 1330 Recent Procedure: No On Antibiotic Therapy: No Respiratory Rate >20: No Heart Rate >90: Yes Temp<36 C (96.8 F) or >38.3 C: Yes SBP <90 or MAP <65 mmHG: No New Acute Mental Status Change: Yes Is the patient on CPAP, BIPAP,: No Physician Orders Chest Xray 1 View (04/07/25 16:03) Norepinephrine 8 Mg/250ml Kit (Levophed) (04/07/25 17:45) Head Without Contrast (04/07/25 17:56) Communication Order (04/07/25 18:00) Admit (04/07/25 22:38) Oxygen By Nasal Cannula (04/07/25 22:38) Stat Ekg For Chest Pain (04/07/25 22:38) Notify Md Of Changes From Base (04/07/25 22:38) Deputy Juvenile Officer For 24 Hours (04/07/25 22:38) Emergency Dysrhythmia Protocol (04/07/25 22:38) Rhythm Strips Once Every Shift (04/07/25 22:38) Potassium Chl 20meq/100ml (04/07/25 22:45) Abg W/ Co-Ox (04/07/25 22:38) Comprehensive Metabolic Panel (04/07/25 22:38) Magnesium (04/07/25 22:38) Vancomycin 1gm/250ml Kit (04/07/25 22:45) Cefepime 2gm/50ml Ns (Maxipime 2gm/50ml) (04/08/25 06:00) Lactic Acid W/ Reflex Order (04/07/25 22:38) Vital Signs Date Time Temp Pulse Resp B/P (MAP) Pulse Ox O2 Delivery O2 Flow Rate FiO2 04/07/25 22:06 100 21 99/65 (76) 100 30 04/07/25 21:15 96.8 106 17 114/72 (86) 100 96.8 04/07/25 21:00 97.0 106 15 115/80 (92) 100 97.0 04/07/25 20:45 97.2 105 13 115/83 (94) 100 97.2 04/07/25 20:30 97.3 102 16 113/80 (91) 100 97.3 04/07/25 20:24 103 17 106/72 (83) 100 30 04/07/25 20:00 97.3 92 17 103/72 (82) 100 97.3 04/07/25 20:00 92 04/07/25 19:45 97.3 93 16 102/71 (81) 100 97.3 04/07/25 19:30 97.3 95 17 107/73 (84) 96 97.3 04/07/25 19:15 97.3 93 17 103/68 (80) 100 97.3 04/07/25 19:00 97.3 93 16 97/64 (75) 100 97.3 04/07/25 18:45 97.3 94 17 98/64 (75) 100 97.3 04/07/25 18:30 97.3 95 17 98/65 (76) 100 97.3 04/07/25 18:15 97.2 107 17 107/70 (82) 100 97.2 04/07/25 18:15 103/70 04/07/25 18:01 103 20 111/74 (86) 100 30 04/07/25 18:00 97.2 101 19 111/74 (86) 100 97.2 04/07/25 18:00 111/74 04/07/25 17:45 96.8 101 19 115/77 (90) 100 96.8 04/07/25 17:30 96.4 89 18 79/46 (57) 100 96.4 04/07/25 17:30 122/86 04/07/25 17:15 96.1 90 29 101/64 (76) 100 96.1 04/07/25 17:15 81/43 04/07/25 17:00 120/76 04/07/25 17:00 95.5 90 19 101/64 (76) 100 95.5 04/07/25 16:45 95.2 95 20 106/71 (83) 100 95.2 04/07/25 16:30 112/78 04/07/25 16:30 94.6 95 21 112/78 (89) 100 94.6 04/07/25 16:15 94.1 92 21 100/70 (80) 100 94.1 04/07/25 16:00 91 04/07/25 16:00 107/69 04/07/25 16:00 93.7 90 16 107/69 (82) 100 93.7 04/07/25 15:59 93.7 90 16 102/67 100 30 93.7 04/07/25 15:45 93.4 92 16 108/75 (86) 100 93.4 04/07/25 15:30 93.2 88 16 112/79 (90) 100 93.2 04/07/25 15:30 112/79 Laboratory Tests Test 04/07/25 13:42 04/07/25 23:04 Lactic Acid Level 1.5 mmol/L (0.4-2.0) Pending White Blood Count 7.9 10^3/uL (4.4-10.8) 9.0 10^3/uL (4.4-10.8) Medications Medications Dose Ordered Sig/Zaria Route Start Time Stop Time Status Last Admin Dose Admin Cefepime HCl 50 ml @ 50 mls/hr ONCE ONCE IV 04/07/25 14:45 04/07/25 17:25 DC 04/07/25 15:17 50 MLS/HR Etomidate 20 mg ONCE ONCE IV 04/07/25 13:45 04/07/25 13:46 DC 04/07/25 13:23 20 MG Levofloxacin/ Dextrose 100 ml @ 100 mls/hr ONCE ONCE IV 04/07/25 17:30 04/07/25 18:29 DC 04/07/25 20:55 100 MLS/HR Midazolam HCl 50 ml @ 1 mls/hr Q24H IV 04/07/25 14:30 04/07/25 13:30 1 MLS/HR Norepinephrine Bitartrate 250 ml @ 3.75 mls/hr Q24H IV 04/07/25 17:45 04/07/25 17:15 3.75 MLS/HR Potassium Chloride 100 ml @ 50 mls/hr ONCE ONCE IV 04/07/25 22:45 04/08/25 00:44 04/07/25 23:21 50 MLS/HR Rocuronium [place] 100 mg ONCE ONCE IV 04/07/25 13:45 04/07/25 13:46 DC 04/07/25 13:23 100 MG Vancomycin HCl 250 ml @ 250 mls/hr ONCE ONCE IV 04/07/25 13:45 04/07/25 14:44 DC 04/07/25 17:45 250 MLS/HR Assessment/Plan Assessment/Plan Assessment/plan # metabolic encephalopathy due to hypoglycemia , on mechanical ventilator Head CT Urine drug screen TSH, folate, B12 # sedation Fentanyl, midazolam # hypoglycemia , resolved Patient was given D50 Mild sliding scale with q.4 Accu-Cheks # uncontrolled insulin-dependent diabetes mellitus Mild sliding scale with q.4h Accu-Cheks # acute hypoxic respiratory failure, on mechanical ventilator We will monitor the ABG # Hypokalemia Replaced # sepsis, unknown source yet IV fluids IV antibiotics MRSA screen # mild anemia Monitor # isolated LP Monitor # metabolic acidosis with compensatory respiratory alkalosis Monitor # hypertension Monitor DVT prophylaxis We start on Lovenox PPI prophylaxis We will start on Protonix Code status, full code as no family is available, and patient is sedated Critical care time excluding procedures is 79 minutes Case discussion with Dr. Proctor Plan discussed with: Other My Orders Orders - FLACO SYED RESIDENT Procedure Category Date Status Time Admit ADMIT 04/07/25 Transmitted 22:38 Oxygen By Nasal RT 04/07/25 Transmitted Cannula 22:38 Stat Ekg For Chest SATHYA 04/07/25 In Process Pain 22:38 Notify Of Changes SATHYA 04/07/25 In Process From Base 22:38 Deputy Juvenile Officer For SATHYA 04/07/25 In Process 24 Hours 22:38 Emergency Dysrhythmia SATHYA 04/07/25 In Process Protocol 22:38 Rhythm Strips Once SATHYA 04/07/25 In Process Every Shift 22:38 Potassium Chl PHA 04/07/25 In Process 20meq/100ml 22:45 Abg W/ Co-Ox RT 04/07/25 Logged 22:38 Comprehensive LAB 04/07/25 In Process Metabolic Panel 22:38 Magnesium LAB 04/07/25 In Process 22:38 Vancomycin 1gm/250ml PHA 04/07/25 Pending Kit 22:45 Cefepime 2gm/50ml Ns PHA 04/08/25 In Process (Maxipime 2gm/50ml) 06:00 Lactic Acid W/ Reflex LAB 04/07/25 In Process Order 22:38 Date of Service: Apr 07, 2025 Billing Provider: FÉLIX PROCTOR MD Common Visit Codes: [id number] INP/OBS CARE (HIGH) FLACO SYED Apr 07, 2025 23:29 FÉLIX PROCTOR MD Apr 10, 2025 13:20
[2025-04-07 23:35] LABS: Anion Gap 11 (5-15); BUN/Creatinine Ratio 14.0 (10.0-20.0); Blood Urea Nitrogen 17 mg/dL (9-23); Magnesium 1.7 mg/dL (1.6-2.6); Sodium 143 mmol/L (136-145)
[2025-04-07 23:39] LABS: Alanine Aminotransferase < 9 U/L (7-40); Albumin 1.9 g/dL (3.2-4.8); Alkaline Phosphatase 395 U/L (46-116); Bilirubin, Total 0.2 mg/dL (0.2-1.0); Calcium 7.0 mg/dL (8.7-10.4); Carbon Dioxide 17 mmol/L (20-31); Chloride 115 mmol/L (98-107); Glucose 248 mg/dL (74-106); Potassium 3.4 mmol/L (3.5-5.1); Total Protein 4.7 g/dL (5.7-8.2)
[2025-04-08] VITALS (107 sets, daily range): BP systolic 71–158; BP diastolic 41–92; PULSE 86–124; RESP 13–23; TEMP 96.8–99.9; O2SAT 93–100
[2025-04-08] MEDS: fentaNYL Drip 2500mCg/250mlNS 250 ML IV SCH
[2025-04-08] MEDS: fentaNYL Drip 2500mCg/250mlNS 250 ML IV ONE (00:03)
[2025-04-08] MEDS: InsuLIN REG 1unit/0.01ml Soln (100units/ml) SC SCH (04:19)
[2025-04-08] MEDS: ACCU-CHEK COMFORT CURVE STRIP VI SCH (04:21)
[2025-04-08] MEDS ORDERED: CEFEPIME 2GM/50ML NS 50 ML IV SCH (06:00)
[2025-04-08 07:28] LABS: Base Excess -11.6 mmol/L (-2.0-3.0)
--- NOTE | 2025-04-08 08:01 | ECG ---
[facility] Test Date: 2025-04-08 Test Time: 02:22:37 Pat Name: SUKHWINDER CHEEMA Department: icu Room: [address] [place] [address] A Gender: M [employer]: [place]oraine : 1980 Requested By: FLACO SYED Order Number: [id number] Reading MD: Anshu Trejo Measurements Intervals [place] Rate: 122 P: 77 [place]: 104 QRS: 100 QRSD: 95 T: -88 QT: 289 QTc: 412 Interpretive Statements Sinus tachycardia Right axis deviation Repol abnrm suggests ischemia, diffuse leads Minimal ST elevation, lateral leads Electronically Signed On 04-08-2025 18:15:22 PDT by Anshu Trejo Please click the below link to view image of tracing.
[2025-04-08 09:02] LABS: Hematocrit 29.2 % (41.0-53.0); Hemoglobin 9.5 g/dL (13.5-17.5); Mean Corpuscular Hemoglobin 28.5 pg (28.0-32.0); Mean Corpuscular Volume 87.7 fL (80.0-100.0); Nucleated Red Blood Cells % 0.0 %
[2025-04-08 09:21] LABS: Alanine Aminotransferase 11 U/L (7-40); Anion Gap 11 (5-15); BUN/Creatinine Ratio 16.8 (10.0-20.0); Blood Urea Nitrogen 20 mg/dL (9-23); Potassium 3.8 mmol/L (3.5-5.1)
[2025-04-08 09:22] LABS: Albumin 1.8 g/dL (3.2-4.8); Alkaline Phosphatase 406 U/L (46-116); Bilirubin, Total 0.2 mg/dL (0.2-1.0); Calcium 6.8 mg/dL (8.7-10.4); Carbon Dioxide 16 mmol/L (20-31); Chloride 119 mmol/L (98-107); Glucose 171 mg/dL (74-106); Sodium 146 mmol/L (136-145); Total Protein 4.3 g/dL (5.7-8.2)
[2025-04-08 10:23] LABS: Cannabinoid Screen, Urine Pos (NEGATIVE); Opiate Scree,Urine Neg (NEGATIVE); Phencyclidine Screen, Urine Neg (NEGATIVE)
[2025-04-08] MEDS: ENOXAPARIN SOD 40 MG/0.4 ML SYRINGE SC SCH (10:26)
[2025-04-08] MEDS: PANTOPRAZOLE 40 MG/10 ML VIAL INJ IV SCH (10:26)
[2025-04-08] MEDS: MAGNESIUM SULFATE 1GM/100ML 100 ML IV ONE (10:27)
[2025-04-08 10:28] LABS: Amphetamine Screen, Urine Neg (NEGATIVE); Barbiturate Scree,Urine Neg (NEGATIVE); Benzodiazephine Screen, Urine Pos (NEGATIVE); Cocaine Screen, Urine Neg (NEGATIVE)
[2025-04-08] MEDS: MEROPENEM 1GM IVPB 50 ML IV ONE (11:36)
--- NOTE | 2025-04-08 13:42 | DVHPNRES ---
Progress Note Date Seen: Apr 08, 2025 Resident Creating Document: NGA GARCIA RESIDENT Medical Necessity Reason Pt with a Central, PICC or Fol: Yes The following are medically ne: Central Line, PICC Line, Owens Catheter Subjective Review of Systems This is a 45 years old male with past medical history of insulin-dependent type 1 diabetes mellitus, hypertension, previous intubation and recurrent hospitalization due to DKA presented to the ED via EMS with altered level of consciousness. As per family patient was found to normal around 1030 hours where they noticed the patient started to become weak and altered. Family called 911. On arrival patient's blood glucose was 21, patient's pupils were nonreactive, patient was not reacting to sternal rub. Patient's GCS was 3 initially. D50 was given. Patient was later intubated in the ED to protect the airway. The patient was seen and examined in the ICU. Mechanical ventilation with FiO2 30%, respiratory rate 16, tidal volume 400 and PEEP 5. Preliminary blood culture demonstrated Gram-positive cocci in cluster. Objective vital signs Vital Sign Date Time Temp Pulse Resp B/P (MAP) Pulse Ox O2 Delivery O2 Flow Rate FiO2 04/08/25 12:45 97.7 96 15 94/58 (70) 100 207.9 04/08/25 12:06 30 04/08/25 12:00 Mechanical Ventilator+ 04/07/25 13:30 0 Total Intake and Output 04/07/25 04/07/25 04/08/25 15:00 23:00 07:00 Intake Total 490.00 ml 160.00 ml Output Total 325 ml Balance 490.00 ml -165.00 ml medications Current Medications Medications Dose Ordered Sig/Zaria Route Start Time Stop Time Status Last Admin Dose Admin Midazolam HCl 50 ml @ 1 mls/hr Q24H IV 04/07/25 14:30 04/08/25 12:57 10 MLS/HR Norepinephrine Bitartrate 250 ml @ 3.75 mls/hr Q24H IV 04/07/25 17:45 04/07/25 17:15 3.75 MLS/HR Fentanyl Citrate 250 ml @ 2.5 mls/hr Q24H IV 04/08/25 00:00 04/08/25 00:00 2.5 MLS/HR Diagnostic Test (Pha) 1 strip IQ4HR 04/08/25 04:00 04/08/25 11:37 1 STRIP Insulin Human Regular IQ4HR SC 04/08/25 04:00 04/08/25 07:44 3 UNITS Dextrose 50 ml UD PRN IV 04/08/25 02:30 Pantoprazole Sodium 40 mg DAILY IV 04/08/25 10:00 04/08/25 10:26 40 MG Enoxaparin Sodium 40 mg DAILY SC 04/08/25 10:00 04/08/25 10:26 40 MG Meropenem 50 ml @ 17 mls/hr Q8H IV 04/08/25 19:00 Enteral Nutritional Formula 1,000 ml 40ML/HR GT 04/08/25 11:00 Examination General: RASS -3, afebrile, mucosae are moist Cardiovascular: Normal S1 and S2. No murmurs, gallops or rubs Respiratory: Mechanically assisted ventilation, equal bilateral airway entree. Clear lung sounds on auscultation Abdomen: Soft, nontender, no organomegaly, normal bowel sounds MSK/skin: Mobilization of limbs cannot be evaluated. Skin is dry and warm. Bilateral foot ulcer, left knee and heel ulcer, stage I sacral erythema in the back, left hip ulcer. Neurological: Orientation cannot be assessed. No apparent motor no sensitive deficits. Pupils are isocoric and reactive laboratory and microbiology Laboratory Tests 04/08/25 08:28 Test 04/08/25 08:28 Range/Units Serum Glucose 171 H 74-106 mg/dL Microbiology Date/Time Source Procedure Growth Status 04/07/25 13:42 Blood Blood Culture - Preliminary Resulted 04/07/25 13:35 Sputum Gram Stain - Final Resulted 04/07/25 13:35 Sputum Respiratory Culture - Preliminary Resulted Labs and/or images reviewed: Labs reviewed by me, Image(s) reviewed by me Problem List/Assessment/Plan Problem List/Assessment/Plan Assessment and plan: NEURO: Acute metabolic encephalopathy due to hypoglycemia S/P intubation RASS: -3 - CT head without contrast demonstrated no acute intracranial abnormality, large bilateral mastoid effusion, moderate right sphenoid sinus mucosal thickening with secretions GASTROINTESTINAL: Elevated alkaline phosphatase History of cholestasis Gastroparesis - Continue Ursodiol GENITOURINARY: Acute complicated cystitis - UA is consistent with UTI - Pending urine bacterial culture - IV meropenem 1 gm Q8hr ENDOCRINE: Euglycemic ketoacidosis Insulin dependent type 1 DM Episodes of hypoglycemia - Mild sliding scale of insulin METABOLIC: Hypernatremia Severe protein calorie malnutrition, BMI 15.2 kg/m2 Hypoalbuminemia Metabolic acidosis due to ketoacidosis Hypothermia HEME: Chronic normocytic anaemia due to anaemia of chronic disease INFECTIOUS DISEASE: Acute complicated cystitis Sacral decubitus ulcer and left hip ulcer - Blood culture showed gram positive cocci in cluster, pending urine c/s - IV vancomycin as per pharmacy and IV meropenem Q8hr. MUSCULOSKELETAL: Lt knee and heel ulcer, stage 2 DERMATOLOGY: Diabetic dermatopathy DIET: Tube feeding with Glucerna DVT prophylax: Lovenox GI prophylaxis: Protonix Bowel regimen: Code status: Full code LINES/DRAINS/ACCESS: ETT: Intubated on 04/07/25 IV access: Lt IJ central line Drips: Verseed, Fentanyl, Levophed Owens catheter: Placed on 04/07/24 DISPOSITION: ICU Patient's status discussed with RICK, inpatient care manager rn time spent more than 81 minutes, including patient care, chart review, and updating the family. Excluding any procedures. Case discussed with Dr. Dan Plan discussed with: Other (RN) My Orders My Orders Orders - NGA GARCIA RESIDENT Procedure Category Date Status Time Urine Bacterial RICHARD 04/08/25 In Process Culture 09:04 Pantoprazole PHA 04/08/25 In Process (Protonix) 10:00 Enoxaparin Sodium PHA 04/08/25 In Process (Lovenox) 10:00 Meropenem 1gm Ivpb PHA 04/08/25 In Process (Merrem 1gm/50ml) 19:00 Nutritional PHA 04/08/25 In Process Supplements (Vital 11:00 Communication Order ORDERS 04/08/25 Transmitted 08:00 Dietary Evaluation Review Comments: 1. Vital High Protein@45ml/hr providing 94g Protein, 1080kcal 903ml free water in 24 hrs, meeting pt's protein and energy needs at 100% 2. Offer Bryce BID PO for wound healing when pt is able to have clear liquids. 3. Advance to CCHO-60 diet when medically feasible approved by [employer]. Expected Outcomes/Goals: controlled DM, improved nutrition status, healed wounds gradual weight gain, Date of Service: Apr 08, 2025 Billing Provider: AMY DAN MD Common Visit Codes: [id number] CARE 30-74 MIN, [id number] CARE-EACH +30MIN NGA GARCIA Apr 08, 2025 13:42 AMY DAN MD Apr 09, 2025 14:57
[2025-04-08] MEDS: DEXTROSE (50%) 50ML SYRG IV PRN (15:59)
[2025-04-08] MEDS: Vital High Protein 1liter Bottle GT SCH (16:15)
[2025-04-08] MEDS: MEROPENEM 1GM IVPB 50 ML IV SCH (18:32)
[2025-04-09] VITALS (107 sets, daily range): BP systolic 85–143; BP diastolic 52–89; PULSE 89–114; RESP 14–23; TEMP 95.2–99.3; O2SAT 78–100
[2025-04-09 04:09] LABS: Potassium 4.1 mmol/L (3.5-5.1); Sodium 145 mmol/L (136-145)
[2025-04-09 04:10] LABS: Anion Gap 13 (5-15)
[2025-04-09 04:15] LABS: BUN/Creatinine Ratio 13.4 (10.0-20.0); Blood Urea Nitrogen 18 mg/dL (9-23)
[2025-04-09 04:16] LABS: Calcium 7.2 mg/dL (8.7-10.4); Carbon Dioxide 16 mmol/L (20-31); Chloride 116 mmol/L (98-107); Glucose 229 mg/dL (74-106)
[2025-04-09 04:25] LABS: Hematocrit 29.5 % (41.0-53.0); Hemoglobin 9.2 g/dL (13.5-17.5); Mean Corpuscular Hemoglobin 28.0 pg (28.0-32.0); Mean Corpuscular Volume 89.7 fL (80.0-100.0); Nucleated Red Blood Cells % 0.1 %
--- NOTE | 2025-04-09 05:35 | DVH ---
CHEST RADIOGRAPH Indication: Mechanical ventilation Technique: Single frontal view of the chest was obtained COMPARISON: XY CHEST XRAY 1 VIEW on DOS: 04/07/25, XY CHEST PORTABLE on DOS: 04/07/25, XY CHEST XRAY 1 VIEW on DOS: 04/07/25, XY CHEST PORTABLE on DOS: 02/06/25, XY CHEST PORTABLE on DOS: 02/05/25 FINDINGS: Lines and Tubes: Unchanged. Lungs: Clear Pleura: No effusion. No pneumothorax. Cardiomediastinal contours: Unremarkable Bones: Unremarkable IMPRESSION: 1. No acute cardiopulmonary disease. 2. Lines and tubes unchanged.
[2025-04-09 07:55] LABS: Base Excess -12.1 mmol/L (-2.0-3.0)
[2025-04-09] MEDS ORDERED: VANCOMYCIN PER PHARMACY 0 MG IV SCH (10:00)
[2025-04-09 11:17] LABS: Base Excess -10.3 mmol/L (-2.0-3.0)
[2025-04-09] MEDS: VANCOMYCIN 1GM/250ML KIT 250 ML IV ONE (12:12)
--- NOTE | 2025-04-09 17:46 | DVHPNRES ---
Progress Note Date Seen: Apr 09, 2025 Resident Creating Document: NGA GARCIA RESIDENT Medical Necessity Reason Pt with a Central, PICC or Fol: Yes The following are medically ne: Central Line, PICC Line, Owens Catheter Subjective Review of Systems This is a 45 years old male with past medical history of insulin-dependent type 1 diabetes mellitus, hypertension, previous intubation and recurrent hospitalization due to DKA presented to the ED via EMS with altered level of consciousness. As per family patient was found to normal around 1030 hours where they noticed the patient started to become weak and altered. Family called 911. On arrival patient's blood glucose was 21, patient's pupils were nonreactive, patient was not reacting to sternal rub. Patient's GCS was 3 initially. D50 was given. Patient was later intubated in the ED to protect the airway. The patient was seen and examined in the ICU. Mechanical ventilation with FiO2 30%, respiratory rate 16, tidal volume 400 and PEEP 5. Urine culture demonstrated enterococcus, yeast and MRSA screen was positive. Objective vital signs Vital Sign Date Time Temp Pulse Resp B/P (MAP) Pulse Ox O2 Delivery O2 Flow Rate FiO2 04/09/25 16:23 94 22 113/79 (90) 100 30 04/09/25 16:00 Mechanical Ventilator+ 04/09/25 14:45 97.3 207.1 04/07/25 13:30 0 Total Intake and Output 04/08/25 04/08/25 04/09/25 15:00 23:00 07:00 Intake Total 252.5 ml 413.00 ml 802.25 ml Output Total 200 ml 275 ml Balance 252.5 ml 213.00 ml 527.25 ml medications Current Medications Medications Dose Ordered Sig/Zaria Route Start Time Stop Time Status Last Admin Dose Admin Midazolam HCl 50 ml @ 1 mls/hr Q24H IV 04/07/25 14:30 04/09/25 15:45 10 MLS/HR Norepinephrine Bitartrate 250 ml @ 3.75 mls/hr Q24H IV 04/07/25 17:45 04/09/25 02:56 11.25 MLS/HR Fentanyl Citrate 250 ml @ 2.5 mls/hr Q24H IV 04/08/25 00:00 04/09/25 09:56 15 MLS/HR Diagnostic Test (Pha) 1 strip IQ4HR 04/08/25 04:00 04/09/25 15:58 1 STRIP Insulin Human Regular IQ4HR SC 04/08/25 04:00 04/09/25 08:07 3 UNITS Dextrose 50 ml UD PRN IV 04/08/25 02:30 04/08/25 15:59 50 ML Pantoprazole Sodium 40 mg DAILY IV 04/08/25 10:00 04/09/25 09:53 40 MG Enoxaparin Sodium 40 mg DAILY SC 04/08/25 10:00 04/09/25 09:54 40 MG Meropenem 50 ml @ 17 mls/hr Q8H IV 04/08/25 19:00 04/09/25 11:01 17 MLS/HR Enteral Nutritional Formula 1,000 ml 40ML/HR GT 04/08/25 11:00 04/08/25 16:15 1,000 ML Linezolid 300 ml @ 150 mls/hr Q12HR IV 04/09/25 22:00 UNV Micafungin Sodium 100 mg/Sodium Chloride 100 ml @ 100 mls/hr DAILY IV 04/10/25 10:00 UNV Examination Examination General: RASS -3, afebrile, mucosae are moist Cardiovascular: Normal S1 and S2. No murmurs, gallops or rubs Respiratory: Mechanically assisted ventilation, equal bilateral airway entree. Clear lung sounds on auscultation Abdomen: Soft, nontender, no organomegaly, normal bowel sounds MSK/skin: Mobilization of limbs cannot be evaluated. Skin is dry and warm. Bilateral foot ulcer, left knee and heel ulcer, stage I sacral erythema in the back, left hip ulcer. Neurological: Orientation cannot be assessed. No apparent motor no sensitive deficits. Pupils are isocoric and reactive laboratory and microbiology Laboratory Tests 04/09/25 03:19 Test 04/09/25 03:19 Range/Units Serum Glucose 229 H 74-106 mg/dL Microbiology Date/Time Source Procedure Growth Status 04/08/25 08:54 Voided Urine Urine Culture - Preliminary Resulted 04/08/25 00:20 Nose MRSA Screen - Final Methicillin Resistant S.aureus Complete 04/07/25 13:50 Blood Blood Culture - Preliminary NO GROWTH AFTER 48 HOURS OF INCUBATION. Resulted 04/07/25 13:35 Sputum Gram Stain - Final Resulted 04/07/25 13:35 Sputum Respiratory Culture - Preliminary Resulted Labs and/or images reviewed: Labs reviewed by me, Image(s) reviewed by me Problem List/Assessment/Plan Problem List/Assessment/Plan Assessment and plan: NEURO: Acute metabolic encephalopathy due to hypoglycemia S/P intubation RASS: -3 - CT head without contrast demonstrated no acute intracranial abnormality, large bilateral mastoid effusion, moderate right sphenoid sinus mucosal thickening with secretions GASTROINTESTINAL: Elevated alkaline phosphatase History of cholestasis Gastroparesis - Continue Ursodiol GENITOURINARY: Acute complicated cystitis - UA is consistent with UTI - urine bacterial culture preliminary showed enterococcus and yeast - IV Linezolid 600 mg Q12 hr and IV micafungin 100 mg daily. ENDOCRINE: Euglycemic ketoacidosis Insulin dependent type 1 DM Episodes of hypoglycemia - Mild sliding scale of insulin METABOLIC: Hypernatremia Severe protein calorie malnutrition, BMI 15.2 kg/m2 Hypoalbuminemia Metabolic acidosis due to ketoacidosis Hypothermia HEME: Chronic normocytic anaemia due to anaemia of chronic disease INFECTIOUS DISEASE: Acute complicated cystitis Sacral decubitus ulcer and left hip ulcer - Blood culture showed gram positive cocci in cluster - urine bacterial culture preliminary showed enterococcus and yeast - IV Linezolid 600 mg Q12 hr and IV micafungin 100 mg daily. MUSCULOSKELETAL: Lt knee and heel ulcer, stage 2 DERMATOLOGY: Diabetic dermatopathy DIET: Tube feeding with Glucerna DVT prophylax: Lovenox GI prophylaxis: Protonix Bowel regimen: Code status: Full code LINES/DRAINS/ACCESS: ETT: Intubated on 04/07/25 IV access: Lt IJ central line Drips: Verseed, Fentanyl, Levophed Owens catheter: Placed on 04/07/24 DISPOSITION: ICU Patient's status discussed with RICK, hemodialysis patient care specialist time spent more than 83 minutes, including patient care, chart review, and updating the family. Excluding any procedures. Case discussed with Dr. Dan Plan discussed with: Other (RN) My Orders My Orders Orders - NGA GARCIA RESIDENT Procedure Category Date Status Time Chest Portable XY 04/09/25 Resulted 04:00 Abg W/ Co-Ox RT 04/09/25 Logged 04:00 Ventilator Orders RT 04/09/25 Transmitted 08:52 Abg W/ Co-Ox RT 04/09/25 Logged 11:22 Complete Blood Count LAB 04/10/25 Verified 04:00 Creatinine LAB 04/10/25 Verified 04:00 Vancomycin,Random LAB 04/10/25 Verified 04:00 Linezolid 600mg/300ml PHA 04/09/25 Logged (Zyvox) 22:00 Micafungin Sodium PHA 04/10/25 Logged (Mycamine) 10:00 Micafungin Sodium PHA 04/09/25 Logged (Mycamine) 17:15 Bilat Lower Dvt US 04/09/25 Logged 17:38 Bi Lat Upper Dvt US 04/09/25 Logged 17:38 Dietary Evaluation Review Comments: 1. Vital High Protein@45ml/hr providing 94g Protein, 1080kcal 903ml free water in 24 hrs, meeting pt's protein and energy needs at 100% 2. Offer Bryce BID PO for wound healing when pt is able to have clear liquids. 3. Advance to CCHO-60 diet when medically feasible approved by [employer]. Expected Outcomes/Goals: controlled DM, improved nutrition status, healed wounds gradual weight gain, Date of Service: Apr 09, 2025 Billing Provider: AMY DAN MD Common Visit Codes: 37415-[id number] CARE 30-74 MIN, [id number] CARE-EACH +30MIN NGA GARCIA RESIDENT Apr 09, 2025 17:46 AMY DAN MD Apr 10, 2025 12:05
[2025-04-09] MEDS: MICAFUNGIN SODIUM 100 MG in SODIUM CHL 0.9% 100 ML IV ONE (18:20)
--- NOTE | 2025-04-09 18:26 | ECG ---
[facility] Test Date: 2025-04-07 Test Time: 23:33:19 Pat Name: SUKHWINDER CHEEMA Department: ED Room: [address] [place] [address] A Gender: M Accounts Receivable Representative: KALEB : 1980 Requested By: EMERGENCY EMERGENCY Order Number: [id number] Reading MD: Anshu Trejo Measurements Intervals [place] Rate: 109 P: 70 IA: 139 QRS: 83 QRSD: 99 T: 81 QT: 384 QTc: 518 Interpretive Statements Sinus tachycardia Borderline repolarization abnormality Prolonged QT interval Electronically Signed On 04-10-2025 15:47:16 PDT by Anshu Trejo Please click the below link to view image of tracing.
--- NOTE | 2025-04-09 19:04 | DVH ---
CLINICAL HISTORY: rule out DVT TECHNIQUE: Color and duplex doppler imagine of the bilateral lower extremity veins was performed. Ves raegan compression and augmentation if possible was also performed. COMPARISON: US BI LAT UPPER DVT on DOS: 04/09/25, US RT UPPER DVT on DOS: 02/06/25, US BI LAT UPPER DVT on DOS: 01/22/25, US BILAT LOW EXT ART DUPLEX on DOS: 01/08/25, US BILAT LOWER DVT on DOS: 01/08/25 FINDINGS: Right Lower Extremity: Right common femoral vein: Normal compressibility and flow. Right superficial femoral vein: Normal compressibility and flow. Right popliteal vein: Normal compressibility and flow. The calf veins are not seen. Left Lower Extremity: Left common femoral vein: Normal compressibility and flow. Left superficial femoral vein: Normal compressibility and flow. Left popliteal vein: Normal compressibility and flow. Proximal calf veins demonstrate flow. IMPRESSION: NO SONOGRAPHIC EVIDENCE FOR DEEP VENOUS THROMBOSIS IN THE BILATERAL LOWER EXTREMITY VEINS.
--- NOTE | 2025-04-09 19:22 | DVH ---
EXAM: US BI LAT UPPER DVT Clinical History: To rule out DVT Comparison: US BILAT LOWER DVT on DOS: 04/09/25, US BI LAT UPPER DVT on DOS: 01/22/25, US BILAT LOWER DV T on DOS: 01/08/25 Technique: Duplex Doppler evaluation of the deep venous systems of both upper extremities from the internal jugu lar to the ulnar veins including color Doppler and spectral/pulsed waveform analysis was performed. Findings: Incompressibility of the right internal jugular vein and right axillary vein. Normal compressibility and color Doppler flow is seen in the remaining bilateral upper extremity vein s. Superficial venous thrombus in the bilateral basilic veins. Right internal jugular and bilateral cep halic veins not visualized. Impression: 1. Occlusive DVT in the right axillary vein. 2. Nonocclusive DVT in the left internal jugular vein. 3. Superficial venous thrombus in the bilateral basilic veins. Critical Result: DVT Findings discussed with the patient's attending nurse, at 04/09/2025 07:20 PM, and acknowledged recei pt and understanding of the findings.
[2025-04-09] MEDS: LINEZOLID 600MG/300ML 300 ML IV SCH (20:00)
[2025-04-09] MEDS ORDERED: INSULIN LANTUS (GLARGINE) 1 /0.01ml (100units/ml) SC SCH (22:00)
[2025-04-09] MEDS: ENOXAPARIN SOD 60 MG/0.6 ML SYRINGE SC SCH (23:29)
[2025-04-10] VITALS (109 sets, daily range): BP systolic 85–143; BP diastolic 53–83; PULSE 80–129; RESP 12–26; TEMP 96.3–99.1; O2SAT 82–100
[2025-04-10 03:50] LABS: Anion Gap 10 (5-15); Potassium 3.6 mmol/L (3.5-5.1)
[2025-04-10 03:56] LABS: BUN/Creatinine Ratio 13.8 (10.0-20.0); Blood Urea Nitrogen 19 mg/dL (9-23); Hemoglobin 8.3 g/dL (13.5-17.5); Magnesium 2.0 mg/dL (1.6-2.6); Mean Corpuscular Volume 89.6 fL (80.0-100.0)
[2025-04-10 03:59] LABS: Hematocrit 26.0 % (41.0-53.0); Mean Corpuscular Hemoglobin 28.7 pg (28.0-32.0); Nucleated Red Blood Cells % 0.0 %
[2025-04-10 04:08] LABS: Calcium 7.2 mg/dL (8.7-10.4); Carbon Dioxide 17 mmol/L (20-31); Chloride 119 mmol/L (98-107); Glucose 115 mg/dL (74-106); Sodium 146 mmol/L (136-145)
--- NOTE | 2025-04-10 05:45 | DVH ---
CHEST RADIOGRAPH Indication: Mechanical ventilation Technique: Single frontal view of the chest was obtained COMPARISON: XY CHEST PORTABLE on DOS: 04/09/25, XY CHEST XRAY 1 VIEW on DOS: 04/07/25, XY CHEST PORTABL E on DOS: 04/07/25, XY CHEST XRAY 1 VIEW on DOS: 04/07/25, XY CHEST PORTABLE on DOS: 02/06/25 FINDINGS: Lines and Tubes: Endotracheal tube in satisfactory position, enteric catheter in satisfactory positio n, right PICC in satisfactory position, left central venous catheter in satisfactory position. Lungs: Unchanged mild pulmonary vascular congestion. Pleura: No effusion.No pneumothorax. Cardiomediastinal contours: Unremarkable. Bones: Unremarkable. IMPRESSION: Lines and tubes in satisfactory position. No significant interval change.
[2025-04-10 07:19] LABS: Base Excess -9.0 mmol/L (-2.0-3.0)
[2025-04-10] MEDS: MEROPENEM 1GM IVPB 50 ML IV SCH (10:14)
--- NOTE | 2025-04-10 11:44 | MEDREC ---
[facility] ASP Intervention Section I [facility] ASP Intervention: Review courses of therapy (MRSA nares positive, may consider applying mupirocin ointment intranasally BID for 5 days if/when clincally appropriate.) ZENOBIA KIRBY [facility] RESIDENT Apr 10, 2025 11:44
[2025-04-10] MEDS: FREE WATER GT SCH (12:28)
--- NOTE | 2025-04-10 17:46 | DVHPNRES ---
Progress Note Date Seen: Apr 10, 2025 Resident Creating Document: NGA GARCIA RESIDENT Medical Necessity Reason Pt with a Central, PICC or Fol: Yes The following are medically ne: Central Line, PICC Line, Owens Catheter Subjective Review of Systems This is a 45 years old male with past medical history of insulin-dependent type 1 diabetes mellitus, hypertension, previous intubation and recurrent hospitalization due to DKA presented to the ED via EMS with altered level of consciousness. As per family patient was found to normal around 1030 hours where they noticed the patient started to become weak and altered. Family called 911. On arrival patient's blood glucose was 21, patient's pupils were nonreactive, patient was not reacting to sternal rub. Patient's GCS was 3 initially. D50 was given. Patient was later intubated in the ED to protect the airway. The patient was seen and examined in the ICU. Mechanical ventilation with FiO2 30%, respiratory rate 16, tidal volume 400 and PEEP 5. Urine culture demonstrated enterococcus, yeast and MRSA screen was positive. DVT scan of the upper extremity demonstrated occlusive DVT in the right axillary vein, nonocclusive DVT in the left internal jugular vein and superficial venous thrombosis in the bilateral basilic vein Objective vital signs Vital Sign Date Time Temp Pulse Resp B/P (MAP) Pulse Ox O2 Delivery O2 Flow Rate FiO2 04/10/25 17:00 82 24 108/65 (79) 100 04/10/25 16:21 30 04/10/25 16:00 Mechanical Ventilator+ 04/10/25 16:00 97.7 97.7 Total Intake and Output 04/09/25 04/09/25 04/10/25 15:00 23:00 07:00 Intake Total 560.0 ml 993.25 ml 703 ml Output Total 300 ml 150 ml Balance 560.0 ml 693.25 ml 553 ml medications Current Medications Medications Dose Ordered Sig/Zaria Route Start Time Stop Time Status Last Admin Dose Admin Midazolam HCl 50 ml @ 1 mls/hr Q24H IV 04/07/25 14:30 04/10/25 16:04 6 MLS/HR Norepinephrine Bitartrate 250 ml @ 3.75 mls/hr Q24H IV 04/07/25 17:45 04/09/25 02:56 11.25 MLS/HR Fentanyl Citrate 250 ml @ 2.5 mls/hr Q24H IV 04/08/25 00:00 04/10/25 03:55 15 MLS/HR Diagnostic Test (Pha) 1 strip IQ4HR 04/08/25 04:00 04/10/25 15:55 1 STRIP Insulin Human Regular IQ4HR SC 04/08/25 04:00 04/10/25 15:57 2 UNITS Dextrose 50 ml UD PRN IV 04/08/25 02:30 04/08/25 15:59 50 ML Pantoprazole Sodium 40 mg DAILY IV 04/08/25 10:00 04/10/25 10:14 40 MG Enteral Nutritional Formula 1,000 ml 40ML/HR GT 04/08/25 11:00 04/08/25 16:15 1,000 ML Linezolid 300 ml @ 150 mls/hr Q12H IV 04/09/25 20:00 04/10/25 08:09 150 MLS/HR Micafungin Sodium 100 mg/Sodium Chloride 100 ml @ 100 mls/hr DAILY@1800 IV 04/10/25 18:00 Enoxaparin Sodium 50 mg Q12HR@1100,2300 RI 04/09/25 23:00 04/10/25 10:30 50 MG Meropenem 50 ml @ 17 mls/hr Q12HR IV 04/10/25 10:00 04/10/25 10:14 17 MLS/HR Purified Water 200 ml Q6HR GT 04/10/25 12:00 04/10/25 12:28 200 ML Examination Examination General: RASS -3, afebrile, mucosae are moist Cardiovascular: Normal S1 and S2. No murmurs, gallops or rubs Respiratory: Mechanically assisted ventilation, equal bilateral airway entree. Clear lung sounds on auscultation Abdomen: Soft, nontender, no organomegaly, normal bowel sounds MSK/skin: Mobilization of limbs cannot be evaluated. Skin is dry and warm. Bilateral foot ulcer, left knee and heel ulcer, stage I sacral erythema in the back, left hip ulcer. Neurological: Orientation cannot be assessed. No apparent motor no sensitive deficits. Pupils are isocoric and reactive laboratory and microbiology Laboratory Tests 04/10/25 03:05 Test 04/10/25 03:05 Range/Units Serum Glucose 115 #H 74-106 mg/dL Microbiology Date/Time Source Procedure Growth Status 04/08/25 08:54 Voided Urine Urine Culture - Preliminary Resulted 04/08/25 00:20 Nose MRSA Screen - Final Methicillin Resistant S.aureus Complete 04/07/25 13:50 Blood Blood Culture - Preliminary NO GROWTH AFTER 72 HOURS OF INCUBATION. Resulted 04/07/25 13:35 Sputum Gram Stain - Final Complete 04/07/25 13:35 Sputum Respiratory Culture - Final Complete Labs and/or images reviewed: Labs reviewed by me, Image(s) reviewed by me Problem List/Assessment/Plan Problem List/Assessment/Plan Assessment and plan: NEURO: Acute metabolic encephalopathy due to hypoglycemia S/P intubation RASS: -3 - CT head without contrast demonstrated no acute intracranial abnormality, large bilateral mastoid effusion, moderate right sphenoid sinus mucosal thickening with secretions GASTROINTESTINAL: Elevated alkaline phosphatase History of cholestasis Gastroparesis - Continue Ursodiol GENITOURINARY: Acute complicated cystitis - UA is consistent with UTI - urine bacterial culture preliminary showed enterococcus and yeast - IV Linezolid 600 mg Q12 hr and IV micafungin 100 mg daily. ENDOCRINE: Euglycemic ketoacidosis Insulin dependent type 1 DM Episodes of hypoglycemia - Mild sliding scale of insulin METABOLIC: Hypernatremia Severe protein calorie malnutrition, BMI 15.2 kg/m2 Hypoalbuminemia Metabolic acidosis due to ketoacidosis Hypothermia HEME: Chronic normocytic anaemia due to anaemia of chronic disease INFECTIOUS DISEASE: Acute complicated cystitis Sacral decubitus ulcer and left hip ulcer - Blood culture showed gram positive cocci in cluster - urine bacterial culture preliminary showed enterococcus and yeast - IV Linezolid 600 mg Q12 hr and IV micafungin 100 mg daily. MUSCULOSKELETAL: Lt knee and heel ulcer, stage 2 DERMATOLOGY: Diabetic dermatopathy DIET: Tube feeding with Glucerna DVT prophylax: Lovenox GI prophylaxis: Protonix Bowel regimen: Code status: Full code LINES/DRAINS/ACCESS: ETT: Intubated on 04/07/25 IV access: Lt IJ central line Drips: Verseed, Fentanyl, Levophed Owens catheter: Placed on 04/07/24 DISPOSITION: ICU Patient's status discussed with RICK career information specialist time spent more than 81 minutes, including patient care, chart review, and updating the family. Excluding any procedures. Case discussed with Dr. Dan Plan discussed with: Other (CARIDAD CABRERA) My Orders My Orders Orders - NGA GARCIA RESIDENT Procedure Category Date Status Time Chest Portable XY 04/10/25 Resulted 04:00 Abg W/ Co-Ox RT 04/10/25 Logged 04:00 Meropenem 1gm Ivpb PHA 04/10/25 In Process (Merrem 1gm/50ml) 10:00 Free Water PHA 04/10/25 In Process 12:00 Insert Rectal Tube ORDERS 04/10/25 Transmitted 13:08 Dietary Evaluation Review Comments: 1. Vital High Protein@45ml/hr providing 94g Protein, 1080kcal 903ml free water in 24 hrs, meeting pt's protein and energy needs at 100% 2. Offer Bryce BID PO for wound healing when pt is able to have clear liquids. 3. [facility] to [facility] diet when medically feasible approved by [employer]. Expected Outcomes/Goals: controlled DM, improved nutrition status, healed wounds gradual weight gain, Date of Service: Apr 10, 2025 Billing Provider: AMY DAN MD Common Visit Codes: 39419-[id number] CARE 30-74 MIN, [id number] CARE-EACH +30MIN NGA GARCIA RESIDENT Apr 10, 2025 17:46 AMY DAN MD Apr 12, 2025 12:38
[2025-04-10] MEDS: MICAFUNGIN SODIUM 100 MG in SODIUM CHL 0.9% 100 ML IV SCH (18:28)
[2025-04-11] VITALS (110 sets, daily range): BP systolic 86–149; BP diastolic 47–81; PULSE 80–111; RESP 10–28; TEMP 97.8–98.9; O2SAT 97–100
[2025-04-11 04:23] LABS: Hematocrit 25.3 % (41.0-53.0); Hemoglobin 8.1 g/dL (13.5-17.5); Mean Corpuscular Hemoglobin 28.5 pg (28.0-32.0); Mean Corpuscular Volume 89.0 fL (80.0-100.0); Nucleated Red Blood Cells % 0.0 %
[2025-04-11 04:38] LABS: Potassium 3.8 mmol/L (3.5-5.1); Sodium 143 mmol/L (136-145)
[2025-04-11 04:39] LABS: Anion Gap 11 (5-15)
[2025-04-11 04:44] LABS: BUN/Creatinine Ratio 15.5 (10.0-20.0); Blood Urea Nitrogen 23 mg/dL (9-23); Glucose 102 mg/dL (74-106)
[2025-04-11 04:45] LABS: Magnesium 2.0 mg/dL (1.6-2.6)
[2025-04-11 04:51] LABS: Calcium 7.3 mg/dL (8.7-10.4); Carbon Dioxide 17 mmol/L (20-31); Chloride 115 mmol/L (98-107)
--- NOTE | 2025-04-11 05:51 | DVH ---
CHEST RADIOGRAPH Indication: Mechanical ventilation Technique: Single frontal view of the chest was obtained COMPARISON: XY CHEST PORTABLE on DOS: 04/10/25, XY CHEST PORTABLE on DOS: 04/09/25, XY CHEST XRAY 1 VIE W on DOS: 04/07/25, XY CHEST PORTABLE on DOS: 04/07/25, XY CHEST XRAY 1 VIEW on DOS: 04/07/25, XY CHEST PORTABLE on DOS: 04/10/25 FINDINGS: Lines and Tubes: Endotracheal tube in satisfactory position, enteric catheter in satisfactory positio n, , left central venous catheter in satisfactory position. Lungs: Unchanged mild pulmonary vascular congestion. Pleura: No effusion.No pneumothorax. Cardiomediastinal contours: Unremarkable. Bones: Unremarkable. IMPRESSION: Lines and tubes in satisfactory position. No significant interval change.
[2025-04-11 08:22] LABS: Base Excess -9.7 mmol/L (-2.0-3.0)
[2025-04-11] MEDS ORDERED: Vital High Protein 1liter Bottle GT SCH (09:15)
[2025-04-11] MEDS: FUROSEMIDE 20 MG/2 ML VIAL IV ONE (10:46)
--- NOTE | 2025-04-11 13:28 | DVHPNRES ---
Progress Note Date Seen: Apr 11, 2025 Resident Creating Document: NGA GARCIA RESIDENT Medical Necessity Reason Pt with a Central, PICC or Fol: Yes The following are medically ne: Central Line, PICC Line, Owens Catheter Subjective Review of Systems This is a 45 years old male with past medical history of insulin-dependent type 1 diabetes mellitus, hypertension, previous intubation and recurrent hospitalization due to DKA presented to the ED via EMS with altered level of consciousness. As per family patient was found to normal around 1030 hours where they noticed the patient started to become weak and altered. Family called 911. On arrival patient's blood glucose was 21, patient's pupils were nonreactive, patient was not reacting to sternal rub. Patient's GCS was 3 initially. D50 was given. Patient was later intubated in the ED to protect the airway. The patient was seen and examined in the ICU. Mechanical ventilation with FiO2 30%, respiratory rate 16, tidal volume 400 and PEEP 5. Urine culture demonstrated VRE .DVT scan of the upper extremity demonstrated occlusive DVT in the right axillary vein, nonocclusive DVT in the left internal jugular vein and superficial venous thrombosis in the bilateral basilic vein. The patient was on spontaneous breathing trial today for 2 hours, opening eyes but still very weak, not able to follow commands. Scheduled for another CPAP trial tomorrow. Objective vital signs Vital Sign Date Time Temp Pulse Resp B/P (MAP) Pulse Ox O2 Delivery O2 Flow Rate FiO2 04/11/25 13:25 118/65 04/11/25 11:25 91 22 100 30 04/11/25 10:30 Mechanical Ventilator+ 04/11/25 08:00 98.2 98.2 Total Intake and Output 04/10/25 04/10/25 04/11/25 15:00 23:00 07:00 Intake Total 194.0 ml 1186.5 ml 735.5 ml Output Total 150 ml 300 ml Balance 194.0 ml 1036.5 ml 435.5 ml medications Current Medications Medications Dose Ordered Sig/Zaria Route Start Time Stop Time Status Last Admin Dose Admin Midazolam HCl 50 ml @ 1 mls/hr Q24H IV 04/07/25 14:30 04/10/25 16:04 6 MLS/HR Norepinephrine Bitartrate 250 ml @ 3.75 mls/hr Q24H IV 04/07/25 17:45 04/09/25 02:56 11.25 MLS/HR Fentanyl Citrate 250 ml @ 2.5 mls/hr Q24H IV 04/08/25 00:00 04/11/25 13:25 5 MLS/HR Diagnostic Test (Pha) 1 strip IQ4HR 04/08/25 04:00 04/11/25 13:25 1 STRIP Insulin Human Regular IQ4HR SC 04/08/25 04:00 04/11/25 00:06 4 UNITS Dextrose 50 ml UD PRN IV 04/08/25 02:30 04/08/25 15:59 50 ML Pantoprazole Sodium 40 mg DAILY IV 04/08/25 10:00 04/11/25 10:46 40 MG Linezolid 300 ml @ 150 mls/hr Q12H IV 04/09/25 20:00 04/11/25 08:20 150 MLS/HR Micafungin Sodium 100 mg/Sodium Chloride 100 ml @ 100 mls/hr DAILY@1800 IV 04/10/25 18:00 04/10/25 18:28 100 MLS/HR Enoxaparin Sodium 50 mg Q12HR@1100,2300 SC 04/09/25 23:00 Hold 04/10/25 22:34 50 MG Meropenem 50 ml @ 17 mls/hr Q12HR IV 04/10/25 10:00 04/11/25 10:47 17 MLS/HR Enteral Nutritional Formula 1,000 ml 50ML/HR GT 04/11/25 09:15 Examination Examination General: RASS -3, afebrile, mucosae are moist Cardiovascular: Normal S1 and S2. No murmurs, gallops or rubs Respiratory: Mechanically assisted ventilation, equal bilateral airway entree. Clear lung sounds on auscultation Abdomen: Soft, nontender, no organomegaly, normal bowel sounds MSK/skin: Mobilization of limbs cannot be evaluated. Skin is dry and warm. Bilateral foot ulcer, left knee and heel ulcer, stage I sacral erythema in the back, left hip ulcer. Neurological: Orientation cannot be assessed. No apparent motor no sensitive deficits. Pupils are isocoric and reactive laboratory and microbiology Laboratory Tests 04/11/25 03:35 Test 04/11/25 03:35 Range/Units Serum Glucose 102 74-106 mg/dL Microbiology Date/Time Source Procedure Growth Status 04/10/25 12:45 Catheter Site Aerobic Culture - Preliminary Resulted 04/08/25 08:54 Voided Urine Urine Culture - Final Enterococcus faecalis - VRE Presumptive Sussy albicans Complete 04/07/25 13:50 Blood Blood Culture - Preliminary NO GROWTH AFTER 72 HOURS OF INCUBATION. Resulted 04/07/25 13:35 Sputum Gram Stain - Final Complete 04/07/25 13:35 Sputum Respiratory Culture - Final Complete Labs and/or images reviewed: Labs reviewed by me, Image(s) reviewed by me Problem List/Assessment/Plan Problem List/Assessment/Plan Assessment and plan: NEURO: Acute metabolic encephalopathy due to hypoglycemia S/P intubation RASS: -3 - CT head without contrast demonstrated no acute intracranial abnormality, large bilateral mastoid effusion, moderate right sphenoid sinus mucosal thickening with secretions GASTROINTESTINAL: Elevated alkaline phosphatase History of cholestasis Gastroparesis - Continue Ursodiol GENITOURINARY: Acute complicated cystitis - UA is consistent with UTI - urine bacterial culture preliminary showed enterococcus and yeast - IV Linezolid 600 mg Q12 hr and IV micafungin 100 mg daily. ENDOCRINE: Euglycemic ketoacidosis Insulin dependent type 1 DM Episodes of hypoglycemia - Mild sliding scale of insulin METABOLIC: Hypernatremia Severe protein calorie malnutrition, BMI 15.2 kg/m2 Hypoalbuminemia Metabolic acidosis due to ketoacidosis Hypothermia HEME: Chronic normocytic anaemia due to anaemia of chronic disease INFECTIOUS DISEASE: Acute complicated cystitis Sacral decubitus ulcer and left hip ulcer - Blood culture showed gram positive cocci in cluster - urine bacterial culture showed VRE - IV Linezolid 600 mg Q12 hr and IV micafungin 100 mg daily. MUSCULOSKELETAL: Lt knee and heel ulcer, stage 2 DERMATOLOGY: Diabetic dermatopathy DIET: Tube feeding with Glucerna DVT prophylax: Lovenox GI prophylaxis: Protonix Bowel regimen: Code status: Full code LINES/DRAINS/ACCESS: ETT: Intubated on 04/07/25 IV access: Lt IJ central line Drips: Verseed, Fentanyl, Levophed Owens catheter: Placed on 04/07/24 DISPOSITION: ICU Patient's status discussed with RICK, campground caretaker time spent more than 81 minutes, including patient care, chart review, and updating the family. Excluding any procedures. Case discussed with Dr. Llamas Plan discussed with: Other (RN) My Orders My Orders Orders - NGA GARCIA RESIDENT Procedure Category Date Status Time Chest Portable XY 04/11/25 Resulted 04:00 Abg W/ Co-Ox RT 04/11/25 Logged 04:00 Nutritional PHA 04/11/25 In Process Supplements (Vital 09:15 Blood Culture RICHARD 04/11/25 In Process 10:59 Dietary Evaluation Review Comments: 1. Vital High Protein@45ml/hr providing 94g Protein, 1080kcal 903ml free water in 24 hrs, meeting pt's protein and energy needs at 100% 2. Offer Bryce BID PO for wound healing when pt is able to have clear liquids. 3. [facility] when medically feasible approved by [employer]. Expected Outcomes/Goals: controlled DM, improved nutrition status, healed wounds gradual weight gain, NGA GARCIA RESIDENT Apr 11, 2025 13:27
[2025-04-12] VITALS (61 sets, daily range): BP systolic 117–170; BP diastolic 73–95; PULSE 91–114; RESP 10–24; TEMP 92.8–98.5; O2SAT 97–100
[2025-04-12 03:59] LABS: Hematocrit 24.2 % (41.0-53.0); Hemoglobin 7.9 g/dL (13.5-17.5); Mean Corpuscular Hemoglobin 28.5 pg (28.0-32.0); Mean Corpuscular Volume 87.9 fL (80.0-100.0); Nucleated Red Blood Cells % 0.0 %
[2025-04-12 04:09] LABS: Anion Gap 11 (5-15); Sodium 141 mmol/L (136-145)
[2025-04-12 04:15] LABS: BUN/Creatinine Ratio 18.2 (10.0-20.0); Magnesium 1.9 mg/dL (1.6-2.6)
[2025-04-12 04:18] LABS: Blood Urea Nitrogen 27 mg/dL (9-23); Calcium 7.3 mg/dL (8.7-10.4); Carbon Dioxide 17 mmol/L (20-31); Chloride 113 mmol/L (98-107); Glucose 218 mg/dL (74-106); Potassium 3.4 mmol/L (3.5-5.1)
[2025-04-12] MEDS: POTASSIUM CHL 20MEQ/100ML 100 ML IV ONE (05:15)
[2025-04-12] MEDS: MAGNESIUM SULFATE 1GM/100ML 100 ML IV ONE (05:43)
--- NOTE | 2025-04-12 06:02 | DVH ---
CHEST RADIOGRAPH Indication: Mechanical ventilation Technique: Single frontal view of the chest was obtained COMPARISON: XY CHEST PORTABLE on DOS: 04/11/25, XY CHEST PORTABLE on DOS: 04/10/25, XY CHEST PORTABLE o n DOS: 04/09/25, XY CHEST XRAY 1 VIEW on DOS: 04/07/25, XY CHEST PORTABLE on DOS: 04/07/25 FINDINGS: Lines and Tubes: Slight interval advancement of endotracheal tube such that the tip now projects appr oximately 3.6 cm above the level of the nata. Remaining lines and tubes unchanged. Lungs: Progressive moderate medial right lung base pulmonary infiltrate. Pleura: No effusion. No pneumothorax. Cardiomediastinal contours: Unremarkable Bones: Unremarkable IMPRESSION: 1. Slight interval advancement of endotracheal tube such that the tip now projects approximately 3.6 cm above the level of the nata. Remaining lines and tubes unchanged 2. Progressive moderate medial right lung base pulmonary infiltrate.
[2025-04-12 09:29] LABS: Base Excess -9.3 mmol/L (-2.0-3.0)
[2025-04-12] MEDS: SODIUM BICARB 8.4% 50Meq/50ml SYR Vial IV ONE (10:41)
--- NOTE | 2025-04-12 15:55 | DVHPN2 ---
Subjective Alert On CPAP Changes from previous H/P or p: Changes Objective Vitals Vital Signs Date Time Temp Pulse Resp B/P (MAP) Pulse Ox O2 Delivery O2 Flow Rate FiO2 04/12/25 14:00 95 13 170/92 (118) 100 04/12/25 14:00 Room Air* 0 21 04/12/25 08:00 98.2 98.2 Intake/Output Intake and Output 04/12/25 07:00 Intake Total 1217.0 ml Output Total 825 ml Balance 392.0 ml Intake Oral 0 ml IV Total 865.0 ml Tube Feeding 352 ml Output Urine Total 675 ml Stool Total 150 ml # Bowel Movements 1 General Appearance: Alert Cardiovascular: Regular rate, Normal S1, Normal S2 Abdomen: Normal bowel sounds, Soft, No tenderness Extremities: No edema Medications Current Medications Medications Dose Ordered Sig/Zaria Route Start Time Stop Time Status Last Admin Dose Admin Midazolam HCl 50 ml @ 1 mls/hr Q24H IV 04/07/25 14:30 04/10/25 16:04 6 MLS/HR Norepinephrine Bitartrate 250 ml @ 3.75 mls/hr Q24H IV 04/07/25 17:45 04/09/25 02:56 11.25 MLS/HR Fentanyl Citrate 250 ml @ 2.5 mls/hr Q24H IV 04/08/25 00:00 04/11/25 13:25 5 MLS/HR Diagnostic Test (Pha) 1 strip IQ4HR 04/08/25 04:00 04/12/25 12:22 1 STRIP Insulin Human Regular IQ4HR SC 04/08/25 04:00 04/12/25 08:20 3 UNITS Dextrose 50 ml UD PRN IV 04/08/25 02:30 04/11/25 20:36 50 ML Pantoprazole Sodium 40 mg DAILY IV 04/08/25 10:00 04/12/25 10:04 40 MG Linezolid 300 ml @ 150 mls/hr Q12H IV 04/09/25 20:00 04/12/25 08:18 150 MLS/HR Micafungin Sodium 100 mg/Sodium Chloride 100 ml @ 100 mls/hr DAILY@1800 IV 04/10/25 18:00 04/11/25 17:20 100 MLS/HR Enoxaparin Sodium 50 mg Q12HR@1100,2300 SC 04/09/25 23:00 Hold 04/10/25 22:34 50 MG Meropenem 50 ml @ 17 mls/hr Q12HR IV 04/10/25 10:00 04/12/25 10:04 17 MLS/HR Enteral Nutritional Formula 1,000 ml 50ML/HR GT 04/11/25 09:15 Laboratory Results Laboratory Tests 04/12/25 03:20 Chemistry Test 04/12/25 03:20 Calcium Level 7.3 mg/dL (8.7-10.4) L Magnesium Level 1.9 mg/dL (1.6-2.6) Urinalysis Test 04/07/25 14:11 Urine Color Dark-brown (Yellow) Urine Clarity Ex.turbid (Clear) Urine pH 5.5 (5.0-9.0) Urine Specific [place] 1.013 (1.001-1.035) Urine Protein 2+ (Negative) H Urine Ketones Negative (Negative) Urine Blood 3+ /uL (Negative) H Urine Nitrite Negative (Negative) Urine Bilirubin Negative (Negative) Urine Urobilinogen Normal mg/dL (Negative) Urine Leukocyte Esterase 3+ /uL (Negative) Urine RBC 253 /hpf (0 - 3) Urine WBC Clumps Present /hpf (None Seen) Urine Microscopic WBC 4011 /HPF (0-3) H Urine Squamous Epithelial Cells None seen /hpf (<5) Urine Bacteria None seen /hpf (None Seen) Urine Yeast (Budding) Moderate /hpf (None Seen) Urine Glucose Normal mg/dL (Normal) Blood Gas Results Test 04/12/25 09:24 Arterial Blood pH 7.389 (7.350-7.450) FiO2 % 30.0 Microbiology Microbiology Date/Time Source Procedure Growth Status 04/11/25 11:50 Blood Blood Culture - Preliminary NO GROWTH AFTER 24 HOURS OF INCUBATION. Resulted 04/10/25 12:45 Catheter Site Aerobic Culture - Preliminary Resulted 04/08/25 08:54 Voided Urine Urine Culture - Final Enterococcus faecalis - VRE Presumptive Sussy albicans Complete 04/07/25 13:35 Sputum Gram Stain - Final Complete 04/07/25 13:35 Sputum Respiratory Culture - Final Complete Assessment/Plan Assessment/Plan Acute respiratory failure Acute metabolic encephalopathy due to hypoglycemia UTI Type 1 diabetic Euglycemic ketoacidosis Hypernatremia Severe protein calorie malnutrition Hypoalbuminemia Metabolic acidosis Hypothermia Hypertension Plan CPAP trial Extubation trial in progress Hypomagnesemia: Replace Hypokalemia, replace IV antibiotics Zyvox and micafungin IV Protonix Accu-Cheks and sliding scale regular insulin Hydralazine IV p.r.n. for hypertension Monitor closely Plan discussed with: Patient, Other My Orders Orders - ОЛЬГА MATIAS MD Procedure Category Date Status Time Hydralazine Injection PHA 04/12/25 Transmitted (Apresoline Inject 16:00 Date of Service: Apr 12, 2025 Billing Provider: ОЛЬГА MATIAS MD Common Visit Codes: [id number] INP/OBS CARE(HIGH) ОЛЬГА MATIAS MD Apr 12, 2025 15:55
[2025-04-12] MEDS: hydrALAZINE HCL 20 MG/ML VL IV PRN (16:32)
--- NOTE | 2025-04-12 20:21 | DVHPN2 ---
Subjective DOS: 04/12/2025 Patient seen and examined at bedside. Intubated on mechanical ventilator. Overnight events reviewed. HPI: Patient is a 45-year-old male with PMHx of hypertension and diabetes mellitus, prior hx of DKA, who presented to ED on 04/07/25 with altered level of consciousness. As per family, patient was found normal around 1030 hours, where they noticed the patient started to become weak and altered. Family called 911 and pt was brought to ED. On arrival patient's blood glucose was 21, patient's pupils were nonreactive, he was not reacting to sternal rub. Patient's GCS was 3 initially. D50 was given. Patient was intubated and placed on mechanical ventilator and admitted for further care. Pulmonary consultation is requested for evaluation and management of acute hypoxic respiratory failure requiring mechanical ventilator. Past Medical History Diabetes mellitus, insulin dependent Hypertension Hx of DKA Past Surgical History Unknown Social History Unknown Family History Unknown Medications Reviewed Allergies: Penicillin. Piperacillin and tazobactam Changes from previous H/P or p: No Changes Objective Vitals Vital Signs Date Time Temp Pulse Resp B/P (MAP) Pulse Ox O2 Delivery O2 Flow Rate FiO2 04/12/25 18:00 103 04/12/25 18:00 16 150/83 (105) 99 04/12/25 18:00 Room Air* 0 21 04/12/25 16:00 97.5 97.5 Intake/Output Intake and Output 04/12/25 07:00 Intake Total 1217.0 ml Output Total 825 ml Balance 392.0 ml Intake Oral 0 ml IV Total 865.0 ml Tube Feeding 352 ml Output Urine Total 675 ml Stool Total 150 ml # Bowel Movements 1 Exam Gen.: Patient lying in bed in medical ICU. Intubated on mechanical ventilator. Head: Normocephalic, atraumatic. Eyes: PERRLA. Ears: Normal external anatomy. Throat: Endotracheal tube and orogastric tube in place. Neck: Supple, trachea midline. Chest: Transmitted breath sounds bilaterally. Decreased air entry bilaterally. No wheezing. Bibasilar crackles. Cardiovascular: Positive S1, positive S2. Regular rate and rhythm. Abdomen: Positive bowel sounds in all 4 quadrants. Soft, nontender, nondistended. : Owens in place. Normal external genitalia. Rectal: Deferred. Skin: Warm, dry. Intact. Extremities: 2+ radial pulses bilaterally. No lower extremity edema. Neuro: Off sedation. Alert, awake. Medications Current Medications Medications Dose Ordered Sig/Zaria Route Start Time Stop Time Status Last Admin Dose Admin Midazolam HCl 50 ml @ 1 mls/hr Q24H IV 04/07/25 14:30 04/10/25 16:04 6 MLS/HR Norepinephrine Bitartrate 250 ml @ 3.75 mls/hr Q24H IV 04/07/25 17:45 04/09/25 02:56 11.25 MLS/HR Fentanyl Citrate 250 ml @ 2.5 mls/hr Q24H IV 04/08/25 00:00 04/11/25 13:25 5 MLS/HR Diagnostic Test (Pha) 1 strip IQ4HR 04/08/25 04:00 04/12/25 16:02 1 STRIP Insulin Human Regular IQ4HR SC 04/08/25 04:00 04/12/25 08:20 3 UNITS Dextrose 50 ml UD PRN IV 04/08/25 02:30 04/11/25 20:36 50 ML Pantoprazole Sodium 40 mg DAILY IV 04/08/25 10:00 04/12/25 10:04 40 MG Linezolid 300 ml @ 150 mls/hr Q12H IV 04/09/25 20:00 04/12/25 08:18 150 MLS/HR Micafungin Sodium 100 mg/Sodium Chloride 100 ml @ 100 mls/hr DAILY@1800 IV 04/10/25 18:00 04/12/25 18:27 100 MLS/HR Enoxaparin Sodium 50 mg Q12HR@1100,2300 FL 04/09/25 23:00 Hold 04/10/25 22:34 50 MG Meropenem 50 ml @ 17 mls/hr Q12HR IV 04/10/25 10:00 04/12/25 10:04 17 MLS/HR Enteral Nutritional Formula 1,000 ml 50ML/HR GT 04/11/25 09:15 Hydralazine HCl 10 mg Q6HP PRN IV 04/12/25 16:00 04/12/25 16:32 10 MG Laboratory Results Laboratory Tests 04/12/25 03:20 Chemistry Test 04/12/25 03:20 Calcium Level 7.3 mg/dL (8.7-10.4) L Magnesium Level 1.9 mg/dL (1.6-2.6) Urinalysis Test 04/07/25 14:11 Urine Color Dark-brown (Yellow) Urine Clarity Ex.turbid (Clear) Urine pH 5.5 (5.0-9.0) Urine Specific [place] 1.013 (1.001-1.035) Urine Protein 2+ (Negative) H Urine Ketones Negative (Negative) Urine Blood 3+ /uL (Negative) H Urine Nitrite Negative (Negative) Urine Bilirubin Negative (Negative) Urine Urobilinogen Normal mg/dL (Negative) Urine Leukocyte Esterase 3+ /uL (Negative) Urine RBC 253 /hpf (0 - 3) Urine WBC Clumps Present /hpf (None Seen) Urine Microscopic WBC 4011 /HPF (0-3) H Urine Squamous Epithelial Cells None seen /hpf (<5) Urine Bacteria None seen /hpf (None Seen) Urine Yeast (Budding) Moderate /hpf (None Seen) Urine Glucose Normal mg/dL (Normal) Blood Gas Results Test 04/12/25 09:24 Arterial Blood pH 7.389 (7.350-7.450) FiO2 % 30.0 Microbiology Microbiology Date/Time Source Procedure Growth Status 04/11/25 11:50 Blood Blood Culture - Preliminary NO GROWTH AFTER 24 HOURS OF INCUBATION. Resulted 04/10/25 12:45 Catheter Site Aerobic Culture - Preliminary Resulted 04/08/25 08:54 Voided Urine Urine Culture - Final Enterococcus faecalis - VRE Presumptive Sussy albicans Complete 04/07/25 13:35 Sputum Gram Stain - Final Complete 04/07/25 13:35 Sputum Respiratory Culture - Final Complete Assessment/Plan Assessment/Plan Impression: Acute hypoxic respiratory failure On mechanical ventilator Acute metabolic encephalopathy secondary to hypoglycemia Elevated alkaline phosphatase gastroparesis Acute complicated cystitis Metabolic acidosis due to ketoacidosis Plan: s/p intubation on mechanical ventilator CXR image and report reviewed. Devices in place. Right lung base opacities. On assist control with respiratory rate of 20, tidal volume 400, PEEP of 5, FiO2 of 30% Titrate FIO2 to keep O2 saturation above 92%. VAP bundle Daily ABG and CXR while intubated. ABG reviewed. On CPAP trial, pressure support of eight, peep of five Patient tolerated CPAP Patient extubated uneventfully. Monitor hemodynamics. Continue antibiotics and antifungals F/u cultures. Blood cultures no growth after 24 hours. Monitor renal function due to Acute kidney injury. Monitor electrolytes. Supplement as necessary. Supplement potassium Magnesium 1.9 Monitor hgb Currently 7.9 g/dL Nutritional support. Accucheks, ISS. GI/DVT prophylaxis. On therapeutic Lovenox. On Protonix. Condition: Critical Prognosis: Poor given multiple comorbidities. Rest of plan per hospitalist and other consultants. A total of 40 minutes of critical care time was spent reviewing the patient record, examining the patient, making a diagnostic and therapeutic plan, discussing this plan with the medical personnel, following up on diagnostic studies and following the patient for clinical stability excluding any and all procedures. At least 50% of this time was spent in direct, [id number] contact. Thank you Dr. Gasca, for allowing me to participate in this patient's care. Further recommendations will depend on patient's clinical course. Please do not hesitate to contact me if you have any questions or concerns. This medical document was created using an electronic medical record system with [employer] dictation system. Although this document has been carefully reviewed, there may still be some phonetic and typographical errors. These areas are purely typographical due to imperfections of the software programs, and do not reflect any compromise in the patient's medical care. Plan discussed with: Other (CARIDAD Ott) My Orders Orders - KEISHA PENN MD Procedure Category Date Status Time Extubate SATHYA 04/12/25 In Process 10:23 BIPAP RT 04/12/25 Logged 10:23 Date of Service: Apr 12, 2025 Billing Provider: KEISHA PENN MD Common Visit Codes: [id number] INP/OBS CARE(HIGH), [id number] CARE 30-74 MIN KEISHA PENN MD Apr 12, 2025 20:21
[2025-04-13] VITALS (23 sets, daily range): BP systolic 101–147; BP diastolic 55–88; PULSE 90–107; RESP 10–20; TEMP 93.9–98.8; O2SAT 97–100
[2025-04-13 03:00] LABS: Hematocrit 24.1 % (41.0-53.0); Hemoglobin 7.8 g/dL (13.5-17.5); Mean Corpuscular Hemoglobin 27.8 pg (28.0-32.0); Mean Corpuscular Volume 86.0 fL (80.0-100.0); Nucleated Red Blood Cells % 0.0 %
[2025-04-13 03:23] LABS: Anion Gap 14 (5-15); BUN/Creatinine Ratio 24.8 (10.0-20.0); Magnesium 1.9 mg/dL (1.6-2.6)
[2025-04-13 03:35] LABS: Alanine Aminotransferase < 9 U/L (7-40); Alkaline Phosphatase 290 U/L (46-116); Bilirubin, Total < 0.2 mg/dL (0.2-1.0); Blood Urea Nitrogen 32 mg/dL (9-23); Calcium 7.7 mg/dL (8.7-10.4); Carbon Dioxide 19 mmol/L (20-31); Chloride 113 mmol/L (98-107); Glucose 120 mg/dL (74-106); Potassium 3.2 mmol/L (3.5-5.1); Sodium 146 mmol/L (136-145)
[2025-04-13 03:36] LABS: Albumin 1.9 g/dL (3.2-4.8); Total Protein 4.6 g/dL (5.7-8.2)
[2025-04-13] MEDS: ALBUMIN 25% 50 ML IV ONE (06:11)
[2025-04-13] MEDS: POTASSIUM CHL 20MEQ/100ML 100 ML IV SCH (06:11)
--- NOTE | 2025-04-13 11:45 | DVHPN2 ---
Subjective He was extubated yesterday He is alert and oriented Very weak No pressors On room air Changes from previous H/P or p: Changes Objective Vitals Vital Signs Date Time Temp Pulse Resp B/P (MAP) Pulse Ox O2 Delivery O2 Flow Rate FiO2 04/13/25 10:00 96.6 93 13 129/72 (91) 100 205.9 04/13/25 10:00 Room Air* 0 21 Intake/Output Intake and Output 04/13/25 07:00 Intake Total 401 ml Output Total 1100 ml Balance -699 ml Intake Oral 0 ml IV Total 401 ml Output Urine Total 850 ml Stool Total 250 ml # Bowel Movements 1 General Appearance: Alert, Oriented X3 Lungs: Clear to auscultation, Normal air movement Cardiovascular: Regular rate, Normal S1, Normal S2 Abdomen: Normal bowel sounds, Soft, No tenderness Extremities: No edema Medications Current Medications Medications Dose Ordered Sig/Zaria Route Start Time Stop Time Status Last Admin Dose Admin Midazolam HCl 50 ml @ 1 mls/hr Q24H IV 04/07/25 14:30 04/10/25 16:04 6 MLS/HR Norepinephrine Bitartrate 250 ml @ 3.75 mls/hr Q24H IV 04/07/25 17:45 04/09/25 02:56 11.25 MLS/HR Fentanyl Citrate 250 ml @ 2.5 mls/hr Q24H IV 04/08/25 00:00 04/11/25 13:25 5 MLS/HR Diagnostic Test (Pha) 1 strip IQ4HR 04/08/25 04:00 04/13/25 07:58 1 STRIP Insulin Human Regular IQ4HR SC 04/08/25 04:00 04/13/25 00:16 4 UNITS Dextrose 50 ml UD PRN IV 04/08/25 02:30 04/13/25 07:59 50 ML Pantoprazole Sodium 40 mg DAILY IV 04/08/25 10:00 04/13/25 09:40 40 MG Linezolid 300 ml @ 150 mls/hr Q12H IV 04/09/25 20:00 04/13/25 07:59 150 MLS/HR Micafungin Sodium 100 mg/Sodium Chloride 100 ml @ 100 mls/hr DAILY@1800 IV 04/10/25 18:00 04/12/25 18:27 100 MLS/HR Enoxaparin Sodium 50 mg Q12HR@1100,2300 SC 04/09/25 23:00 Hold 04/10/25 22:34 50 MG Meropenem 50 ml @ 17 mls/hr Q12HR IV 04/10/25 10:00 04/13/25 09:40 17 MLS/HR Enteral Nutritional Formula 1,000 ml 50ML/HR GT 04/11/25 09:15 Hydralazine HCl 10 mg Q6HP PRN IV 04/12/25 16:00 04/12/25 16:32 10 MG Laboratory Results Laboratory Tests 04/13/25 02:48 Chemistry Test 04/13/25 02:48 Albumin 1.9 g/dL (3.2-4.8) L Calcium Level 7.7 mg/dL (8.7-10.4) L Magnesium Level 1.9 mg/dL (1.6-2.6) Total Protein 4.6 g/dL (5.7-8.2) L LFT Test 04/13/25 02:48 Alanine Aminotransferase (ALT) < 9 U/L (7-40) Alkaline Phosphatase 290 U/L (46-116) H Aspartate Amino Transferase (AST) 12 U/L (13-40) L Total Bilirubin < 0.2 mg/dL (0.2-1.0) L Urinalysis Test 04/07/25 14:11 Urine Color Dark-brown (Yellow) Urine Clarity Ex.turbid (Clear) Urine pH 5.5 (5.0-9.0) Urine Specific [place] 1.013 (1.001-1.035) Urine Protein 2+ (Negative) H Urine Ketones Negative (Negative) Urine Blood 3+ /uL (Negative) H Urine Nitrite Negative (Negative) Urine Bilirubin Negative (Negative) Urine Urobilinogen Normal mg/dL (Negative) Urine Leukocyte Esterase 3+ /uL (Negative) Urine RBC 253 /hpf (0 - 3) Urine WBC Clumps Present /hpf (None Seen) Urine Microscopic WBC 4011 /HPF (0-3) H Urine Squamous Epithelial Cells None seen /hpf (<5) Urine Bacteria None seen /hpf (None Seen) Urine Yeast (Budding) Moderate /hpf (None Seen) Urine Glucose Normal mg/dL (Normal) Microbiology Microbiology Date/Time Source Procedure Growth Status 04/11/25 11:50 Blood Blood Culture - Preliminary NO GROWTH AFTER 24 HOURS OF INCUBATION. Resulted 04/10/25 12:45 Catheter Site Aerobic Culture - Preliminary Resulted 04/08/25 08:54 Voided Urine Urine Culture - Final Enterococcus faecalis - VRE Presumptive Sussy albicans Complete 04/07/25 13:35 Sputum Gram Stain - Final Complete 04/07/25 13:35 Sputum Respiratory Culture - Final Complete Assessment/Plan Assessment/Plan Acute respiratory failure Acute metabolic encephalopathy due to hypoglycemia UTI Type 1 diabetic Euglycemic ketoacidosis Hypernatremia Severe protein calorie malnutrition Hypoalbuminemia Metabolic acidosis Hypothermia Hypertension Plan CPAP trial Extubation trial in progress Hypomagnesemia: Replace Hypokalemia, replace IV antibiotics Zyvox and micafungin IV Protonix Accu-Cheks and sliding scale regular insulin Hydralazine IV p.r.n. for hypertension Monitor closely 04/13/2025: Start pureed diet Physical therapy evaluation Downgrade to telemetry Meropenem and Zyvox Micafungin Plan discussed with: Patient My Orders Orders - ОЛЬГА MATIAS MD Procedure Category Date Status Time Hydralazine Injection PHA 04/12/25 In Process (Apresoline Inject 16:00 Pt Request For Service PT 04/13/25 Logged 10:39 Transfer Orders XFER 04/13/25 Transmitted 10:39 Pt Request For Service PT 04/13/25 Logged 11:39 Pureed DIET 04/13/25 Transmitted Lunch Date of Service: Apr 13, 2025 Billing Provider: ОЛЬГА MATIAS MD Common Visit Codes: [id number] INP/OBS CARE(HIGH) ОЛЬГА MATIAS MD Apr 13, 2025 11:45
[2025-04-13] MEDS: ACETAMINOPHEN 325 MG TAB PO PRN (17:55)
[2025-04-14] VITALS (10 sets, daily range): BP systolic 105–132; BP diastolic 78–90; PULSE 75–98; RESP 16–20; TEMP 97.4–98.1; O2SAT 98–99
[2025-04-14] MEDS: MORPHINE SULFATE INJ 2 MG/ml SYRG IV ONE ×3 (00:41→23:40)
--- NOTE | 2025-04-14 08:41 | DVHPN2 ---
Subjective DOS: 04/13/2025 Patient seen and examined at bedside. S/p extubation, currently on room air Overnight events reviewed. HPI: Patient is a 45-year-old male with PMHx of hypertension and diabetes mellitus, prior hx of DKA, who presented to ED on 04/07/25 with altered level of consciousness. As per family, patient was found normal around 1030 hours, where they noticed the patient started to become weak and altered. Family called 911 and pt was brought to ED. On arrival patient's blood glucose was 21, patient's pupils were nonreactive, he was not reacting to sternal rub. Patient's GCS was 3 initially. D50 was given. Patient was intubated and placed on mechanical ventilator and admitted for further care. Pulmonary consultation is requested for evaluation and management of acute hypoxic respiratory failure requiring mechanical ventilator. Past Medical History Diabetes mellitus, insulin dependent Hypertension Hx of DKA Past Surgical History Unknown Social History Unknown Family History Unknown Medications Reviewed Allergies: Penicillin. Piperacillin and tazobactam Changes from previous H/P or p: No Changes Objective Vitals Vital Signs Date Time Temp Pulse Resp B/P (MAP) Pulse Ox O2 Delivery O2 Flow Rate FiO2 04/14/25 08:39 97.8 83 18 132/90 (104) 99 97.8 04/14/25 07:54 Room Air* 0 30 21 Intake/Output Intake and Output 04/14/25 07:00 Intake Total 1096 ml Output Total 1000 ml Balance 96 ml Intake Oral 245 ml IV Total 851 ml Output Urine Total 1000 ml # Bowel Movements 1 General Appearance: Alert, Oriented X3, Cooperative Lungs: Clear to auscultation, Other (Decreased air entry bilaterally) Cardiovascular: Regular rate, Normal S1, Normal S2 Abdomen: Normal bowel sounds, Soft, No tenderness Musculoskeletal: Normal sensory function, Normal motor function Extremities: No clubbing, No cyanosis, No edema Neuro: Strength at 5/5 X4 ext, Cranial nerves 3-12 NL Skin: Dry, Intact, Warm Psych/Mental Status: Mental status NL, Mood NL Medications Current Medications Medications Dose Ordered Sig/Zaria Route Start Time Stop Time Status Last Admin Dose Admin Diagnostic Test (Pha) 1 strip IQ4HR 04/08/25 04:00 04/14/25 04:44 1 STRIP Insulin Human Regular IQ4HR SC 04/08/25 04:00 04/14/25 00:33 6 UNITS Dextrose 50 ml UD PRN IV 04/08/25 02:30 04/13/25 07:59 50 ML Pantoprazole Sodium 40 mg DAILY IV 04/08/25 10:00 04/13/25 09:40 40 MG Linezolid 300 ml @ 150 mls/hr Q12H IV 04/09/25 20:00 04/13/25 20:49 150 MLS/HR Micafungin Sodium 100 mg/Sodium Chloride 100 ml @ 100 mls/hr DAILY@1800 IV 04/10/25 18:00 04/13/25 17:55 100 MLS/HR Enoxaparin Sodium 50 mg Q12HR@1100,2300 SC 04/09/25 23:00 Hold 04/10/25 22:34 50 MG Meropenem 50 ml @ 17 mls/hr Q12HR IV 04/10/25 10:00 04/13/25 23:21 17 MLS/HR Enteral Nutritional Formula 1,000 ml 50ML/HR GT 04/11/25 09:15 Hydralazine HCl 10 mg Q6HP PRN IV 04/12/25 16:00 04/12/25 16:32 10 MG Acetaminophen 650 mg Q4HP PRN PO 04/13/25 17:45 04/13/25 17:55 650 MG Laboratory Results Laboratory Tests 04/13/25 02:48 Urinalysis Test 04/07/25 14:11 Urine Color Dark-brown (Yellow) Urine Clarity Ex.turbid (Clear) Urine pH 5.5 (5.0-9.0) Urine Specific Rogers 1.013 (1.001-1.035) Urine Protein 2+ (Negative) H Urine Ketones Negative (Negative) Urine Blood 3+ /uL (Negative) H Urine Nitrite Negative (Negative) Urine Bilirubin Negative (Negative) Urine Urobilinogen Normal mg/dL (Negative) Urine Leukocyte Esterase 3+ /uL (Negative) Urine RBC 253 /hpf (0 - 3) Urine WBC Clumps Present /hpf (None Seen) Urine Microscopic WBC 4011 /HPF (0-3) H Urine Squamous Epithelial Cells None seen /hpf (<5) Urine Bacteria None seen /hpf (None Seen) Urine Yeast (Budding) Moderate /hpf (None Seen) Urine Glucose Normal mg/dL (Normal) Microbiology Microbiology Date/Time Source Procedure Growth Status 04/11/25 11:50 Blood Blood Culture - Preliminary NO GROWTH AFTER 48 HOURS OF INCUBATION. Resulted 04/10/25 12:45 Catheter Site Aerobic Culture - Preliminary Resulted 04/08/25 08:54 Voided Urine Urine Culture - Final Enterococcus faecalis - VRE Presumptive Sussy albicans Complete 04/07/25 13:35 Sputum Gram Stain - Final Complete 04/07/25 13:35 Sputum Respiratory Culture - Final Complete Assessment/Plan Assessment/Plan Impression: Acute hypoxic respiratory failure Acute metabolic encephalopathy secondary to hypoglycemia Elevated alkaline phosphatase gastroparesis Acute complicated cystitis Metabolic acidosis due to ketoacidosis Events: S/p extubation yesterday Currently on room air Supplemental oxygen PRN Head of bed elevation Aspiration precautions Continue antibiotics Accu-Cheks, ISS. Labs and imaging reviewed. Rest of plan as noted below. Plan: Supplemental oxygen PRN Titrate to keep O2 saturation above 92%. Monitor hemodynamics. Continue antibiotics and antifungals F/u cultures. Blood cultures no growth after 48 hours. Monitor renal function due to Acute kidney injury. Monitor electrolytes. Supplement as necessary. Monitor hemoglobin Transfuse if less than 7.0 g/dL. Nutritional support. Accucheks, ISS. GI/DVT prophylaxis. On therapeutic Lovenox. On Protonix. Prognosis: Poor given multiple comorbidities. Rest of plan per hospitalist and other consultants. Thank you Dr. Gasca, for allowing me to participate in this patient's care. Further recommendations will depend on patient's clinical course. Please do not hesitate to contact me if you have any questions or concerns. This medical document was created using an electronic medical record system with [employer] dictation system. Although this document has been carefully reviewed, there may still be some phonetic and typographical errors. These areas are purely typographical due to imperfections of the software programs, and do not reflect any compromise in the patient's medical care. Plan discussed with: Patient, Other (RN) Date of Service: Apr 13, 2025 Billing Provider: KEISHA PENN MD Common Visit Codes: [id number] INP/OBS CARE(HIGH) KEISHA PENN MD Apr 14, 2025 08:41
--- NOTE | 2025-04-14 09:21 | DVHPNRES ---
Progress Note Date Seen: Apr 15, 2025 Resident Creating Document: AKIN TIMMONS RESDIENT Medical Necessity Reason Pt with a Central, PICC or Fol: Yes The following are medically ne: Central Line, PICC Line, Owens Catheter Subjective Review of Systems Patient seen and examined at the bedside. Patient is complaining of epigastric abdominal pain. Patient reports: No new complaints Objective vital signs Vital Sign Date Time Temp Pulse Resp B/P (MAP) Pulse Ox O2 Delivery O2 Flow Rate FiO2 04/14/25 08:39 97.8 83 18 132/90 (104) 99 97.8 04/14/25 07:54 Room Air* 0 30 21 Total Intake and Output 04/13/25 04/13/25 04/14/25 14:59 22:59 06:59 Intake Total 451 ml 645 ml 50 ml Output Total 1000 ml Balance 451 ml -355 ml 50 ml medications Current Medications Medications Dose Ordered Sig/Zaria Route Start Time Stop Time Status Last Admin Dose Admin Diagnostic Test (Pha) 1 strip IQ4HR 04/08/25 04:00 04/14/25 04:44 1 STRIP Insulin Human Regular IQ4HR SC 04/08/25 04:00 04/14/25 00:33 6 UNITS Dextrose 50 ml UD PRN IV 04/08/25 02:30 04/13/25 07:59 50 ML Pantoprazole Sodium 40 mg DAILY IV 04/08/25 10:00 04/13/25 09:40 40 MG Linezolid 300 ml @ 150 mls/hr Q12H IV 04/09/25 20:00 04/13/25 20:49 150 MLS/HR Micafungin Sodium 100 mg/Sodium Chloride 100 ml @ 100 mls/hr DAILY@1800 IV 04/10/25 18:00 04/13/25 17:55 100 MLS/HR Enoxaparin Sodium 50 mg Q12HR@1100,2300 SC 04/09/25 23:00 Hold 04/10/25 22:34 50 MG Meropenem 50 ml @ 17 mls/hr Q12HR IV 04/10/25 10:00 04/13/25 23:21 17 MLS/HR Enteral Nutritional Formula 1,000 ml 50ML/HR GT 04/11/25 09:15 Hydralazine HCl 10 mg Q6HP PRN IV 04/12/25 16:00 04/12/25 16:32 10 MG Acetaminophen 650 mg Q4HP PRN PO 04/13/25 17:45 04/13/25 17:55 650 MG Examination General Appearance: Alert, Oriented X3, Cooperative, in mild distress HEENT: Atraumatic, PERRLA, EOMI, bilateral periorbital perioral swollen Respiratory: Clear to auscultation, Normal air movement Cardiovascular: Regular rate, Normal S1, Normal S2, No murmurs, no chest wall tenderness Abdominal: Normal bowel sounds, Soft, No tenderness, No hepatospenomegaly, No masses Extremities: No clubbing, No cyanosis, No edema, Normal pulses, No tenderness/swelling Skin: Multiple grade 2 to grade 3 decubitus ulcer at sacral and iliac region Neuro: Due to patient's generalized weakness, could not assess Psych/Mental Status: Mental status NL, Mood NL laboratory and microbiology Laboratory Tests 04/13/25 02:48 Test 04/13/25 02:48 Range/Units Serum Glucose 120 H 74-106 mg/dL Microbiology Date/Time Source Procedure Growth Status 04/11/25 11:50 Blood Blood Culture - Preliminary NO GROWTH AFTER 48 HOURS OF INCUBATION. Resulted 04/10/25 12:45 Catheter Site Aerobic Culture - Preliminary Resulted 04/08/25 08:54 Voided Urine Urine Culture - Final Enterococcus faecalis - VRE Presumptive Sussy albicans Complete 04/07/25 13:35 Sputum Gram Stain - Final Complete 04/07/25 13:35 Sputum Respiratory Culture - Final Complete Labs and/or images reviewed: Labs reviewed by me, Image(s) reviewed by me Problem List/Assessment/Plan Problem List/Assessment/Plan This is a 45-year-old male with past medical history of type 1 diabetes, hypertension, (history of recurrent DKA), brought to the hospital due to altered mental status. Patient was found to have hypoglycemia (due to insulin). on 04/07/25, admitted and sedated and intubated. Patient extubated on 04/12. NEURO: Acute metabolic encephalopathy due to hypoglycemia, resolved * CT head without contrast demonstrated no acute intracranial abnormality, large bilateral mastoid effusion, moderate right sphenoid sinus mucosal thickening with secretions CARDIOVASCULAR: Hypertension GASTROINTESTINAL: Severe protein malnutrition Diabetic gastroparesis Elevated alkaline phosphatase, likely due to alcohol use disorder * Metoclopramide and Protonix GENITOURINARY: Complicated UTI * Urine culture shows VRE and presumptive Sussy albicans * Linezolid and micafungin ENDOCRINE: Diabetes mellitus, type 1 Episodes of hypoglycemia * Lantus 10 units daily * Insulin according to sliding scale METABOLIC: Severe protein calorie malnutrition, BMI 15.2 kg/m2 Hypoalbuminemia Hypernatremia, normalized * Glucerna b.i.d. HEME: Moderate anemia, likely due to anemia of chronic disease Bilateral upper limb and vein DVT * Duplex ultrasound shows, occlusive DVT in the right axillary vein, Nonocclusive DVT in the left internal jugular vein and Superficial venous thrombus in the bilateral basilic veins * On Eliquis INFECTIOUS DISEASE: Sepsis, due to Complicated UTI Complicated UTI * Blood culture on 04/07, shows Staphylococcus hemolyticus, subsequent blood cultures showed no growth * Linezolid and micafungin MUSCULOSKELETAL: Multiple Stage 2-3 decubitus ulcer Possible angioedema, has no respiratory distress * Wound care DIET: Pureed diet DVT prophylax: On Eliquis GI prophylaxis: Protonix Code status: Full code LINES/DRAINS/ACCESS: IV access: Peripheral line Owens catheter: Placed on 04/07/1995 DISPOSITION: Med/surge Patient's status discussed with patient. Critical care time spent more than 52 minutes, including patient care, chart review. Excluding any procedures. Case discussed with Dr. Dan Plan discussed with: Patient, Other (RN) Dietary Evaluation Review Comments: 1. Vital High Protein@45ml/hr providing 94g Protein, 1080kcal 903ml free water in 24 hrs, meeting pt's protein and energy needs at 100% 2. Offer Bryce BID PO for wound healing when pt is able to have clear liquids. 3. Advance to CCHO-60 diet when medically feasible approved by TRAFFIC RATE CLERK. Expected Outcomes/Goals: controlled DM, improved nutrition status, healed wounds gradual weight gain, Date of Service: Apr 14, 2025 Billing Provider: AMY DAN MD Common Visit Codes: [id number] CARE 30-74 MIN AKIN TIMMONS RESDIENT Apr 14, 2025 09:21 AMY DAN MD Apr 15, 2025 16:01
[2025-04-14 14:01] LABS: Hematocrit 26.9 % (41.0-53.0); Hemoglobin 8.5 g/dL (13.5-17.5); Mean Corpuscular Hemoglobin 27.7 pg (28.0-32.0); Mean Corpuscular Volume 87.3 fL (80.0-100.0); Nucleated Red Blood Cells % 0.1 %
[2025-04-14 14:15] LABS: Alanine Aminotransferase 10 U/L (7-40); Albumin 2.0 g/dL (3.2-4.8); Alkaline Phosphatase 272 U/L (46-116); Anion Gap 12 (5-15); BUN/Creatinine Ratio 21.7 (10.0-20.0); Blood Urea Nitrogen 25 mg/dL (9-23); Calcium 7.3 mg/dL (8.7-10.4); Carbon Dioxide 18 mmol/L (20-31); Chloride 112 mmol/L (98-107); Glucose 299 mg/dL (74-106); Magnesium 1.7 mg/dL (1.6-2.6); Potassium 3.5 mmol/L (3.5-5.1); Sodium 142 mmol/L (136-145); Total Protein 4.7 g/dL (5.7-8.2)
[2025-04-14 14:16] LABS: Bilirubin, Total < 0.2 mg/dL (0.2-1.0)
[2025-04-14] MEDS: INSULIN LANTUS (GLARGINE) 1 /0.01ml (100units/ml) SC ONE (18:15)
[2025-04-14] MEDS: APIXABAN 5 MG TAB PO SCH (22:37)
[2025-04-15] VITALS (8 sets, daily range): BP systolic 118–149; BP diastolic 81–91; PULSE 74–108; RESP 16–18; TEMP 97.4–98.2; O2SAT 98–100
[2025-04-15] MEDS ORDERED: HYDROcodone-ACET 5/325MG TAB PO ONE (02:00)
[2025-04-15] MEDS: methylPREDNISolone SOD SUCC 125 MG/2 ML VL IV ONE (04:28)
[2025-04-15] MEDS: diphenhdrAMINE HCL 50 MG/1 ML VL IV ONE (04:28)
[2025-04-15] MEDS: INSULIN LANTUS (GLARGINE) 1 /0.01ml (100units/ml) SC SCH (07:00)
[2025-04-15] MEDS: Glucerna Carbsteady SHAKE Vanilla 8oz PO SCH (08:41)
[2025-04-15] MEDS: METOCLOPRAMIDE HCL 5MG/ml INJ 2ml VIAL IV PRN (18:38)
--- NOTE | 2025-04-15 19:35 | DVHPNRES ---
Progress Note Date Seen: Apr 15, 2025 Resident Creating Document: AKIN TIMMONS RESDIENT Medical Necessity Reason Pt with a Central, PICC or Fol: Yes The following are medically ne: Central Line, PICC Line, Owens Catheter Subjective Review of Systems Patient seen and examined at the bedside. Patient is complaining of epigastric abdominal pain. Objective vital signs Vital Sign Date Time Temp Pulse Resp B/P (MAP) Pulse Ox O2 Delivery O2 Flow Rate FiO2 04/15/25 16:44 97.5 92 17 149/91 (110) 98 97.5 04/15/25 08:00 Room Air* 0 30 21 Total Intake and Output 04/14/25 04/14/25 04/15/25 15:00 23:00 07:00 Intake Total 300 ml 250 ml 600 ml Output Total 50 ml 400 ml Balance 300 ml 200 ml 200 ml medications Current Medications Medications Dose Ordered Sig/Zaria Route Start Time Stop Time Status Last Admin Dose Admin Diagnostic Test (Pha) 1 strip IQ4HR 04/08/25 04:00 04/15/25 16:02 1 STRIP Insulin Human Regular IQ4HR SC 04/08/25 04:00 04/14/25 23:42 4 UNITS Dextrose 50 ml UD PRN IV 04/08/25 02:30 04/15/25 08:08 50 ML Micafungin Sodium 100 mg/Sodium Chloride 100 ml @ 100 mls/hr DAILY@1800 IV 04/10/25 18:00 04/15/25 17:47 100 MLS/HR Acetaminophen 650 mg Q4HP PRN PO 04/13/25 17:45 04/13/25 17:55 650 MG Metoclopramide HCl 5 mg Q8HPRN PRN IV 04/14/25 18:15 04/15/25 18:38 5 MG Enteral Nutritional Formula 240 ml BIDWM PO 04/15/25 08:00 04/15/25 08:41 240 ML Apixaban 5 mg BID PO 04/14/25 22:00 04/15/25 08:41 5 MG Pantoprazole Sodium 40 mg DAILY@0600 PO 04/16/25 06:00 Linezolid 600 mg BID PO 04/15/25 22:00 Tramadol HCl 50 mg Q6HP PRN PO 04/15/25 18:30 Examination General Appearance: Alert, Oriented X3, Cooperative, in mild distress HEENT: Atraumatic, PERRLA, EOMI, bilateral periorbital perioral swollen Respiratory: Clear to auscultation, Normal air movement Cardiovascular: Regular rate, Normal S1, Normal S2, No murmurs, no chest wall tenderness Abdominal: Normal bowel sounds, Soft, No tenderness, No hepatospenomegaly, No masses Extremities: No clubbing, No cyanosis, No edema, Normal pulses, No tenderness/swelling Skin: Multiple grade 2 to grade 3 decubitus ulcer at sacral and iliac region Neuro: Due to patient's generalized weakness, could not assess Psych/Mental Status: Mental status NL, Mood NL laboratory and microbiology Laboratory Tests 04/14/25 13:39 Test 04/14/25 13:39 Range/Units Serum Glucose 299 #H 74-106 mg/dL Microbiology Date/Time Source Procedure Growth Status 04/11/25 11:50 Blood Blood Culture - Preliminary NO GROWTH AFTER 72 HOURS OF INCUBATION. Resulted 04/10/25 12:45 Catheter Site Aerobic Culture - Final Complete 04/08/25 08:54 Voided Urine Urine Culture - Final Enterococcus faecalis - VRE Presumptive Sussy albicans Complete 04/07/25 13:35 Sputum Gram Stain - Final Complete 04/07/25 13:35 Sputum Respiratory Culture - Final Complete Labs and/or images reviewed: Labs reviewed by me, Image(s) reviewed by me Problem List/Assessment/Plan Problem List/Assessment/Plan This is a 45-year-old male with past medical history of type 1 diabetes, hypertension, (history of recurrent DKA), brought to the hospital due to altered mental status. Patient was found to have hypoglycemia (due to insulin). on 04/07/25, admitted and sedated and intubated. Patient extubated on 04/12. NEURO: Acute metabolic encephalopathy due to hypoglycemia, resolved * CT head without contrast demonstrated no acute intracranial abnormality, large bilateral mastoid effusion, moderate right sphenoid sinus mucosal thickening with secretions CARDIOVASCULAR: Hypertension GASTROINTESTINAL: Severe protein malnutrition Diabetic gastroparesis Elevated alkaline phosphatase, likely due to alcohol use disorder * Metoclopramide and Protonix and tramadol GENITOURINARY: Complicated UTI * Urine culture shows VRE and presumptive Sussy albicans * Linezolid oral and micafungin ENDOCRINE: Diabetes mellitus, type 1 Episodes of hypoglycemia * Insulin according to sliding scale METABOLIC: Severe protein calorie malnutrition, BMI 15.2 kg/m2 Hypoalbuminemia Hypernatremia, normalized * Glucerna b.i.d. HEME: Moderate anemia, likely due to anemia of chronic disease Bilateral upper limb and vein DVT * Duplex ultrasound shows, occlusive DVT in the right axillary vein, Nonocclusive DVT in the left internal jugular vein and Superficial venous thrombus in the bilateral basilic veins * On Eliquis INFECTIOUS DISEASE: Sepsis, due to Complicated UTI Complicated UTI * Blood culture on 04/07, shows Staphylococcus hemolyticus, subsequent blood cultures showed no growth * Linezolid and micafungin MUSCULOSKELETAL: Multiple Stage 2-3 decubitus ulcer Possible angioedema, has no respiratory distress * Wound care DIET: Pureed diet DVT prophylax: On Eliquis GI prophylaxis: Protonix Code status: Full code LINES/DRAINS/ACCESS: IV access: Peripheral line Owens catheter: Placed on 04/07/1995 DISPOSITION: Med/surge Patient's status discussed with patient. Critical care time spent more than 52 minutes, including patient care, chart review. Excluding any procedures. Case discussed with Dr. Dan Plan discussed with: Patient, Other (RN) My Orders My Orders Orders - AKIN TIMMONS RESDIENT Procedure Category Date Status Time Pantoprazole Tablet PHA 04/16/25 In Process (Protonix Tablet) 06:00 Complete Blood Count LAB 04/16/25 Verified 04:00 Comprehensive LAB 04/16/25 Verified Metabolic Panel 04:00 Linezolid Tablet PHA 04/15/25 In Process (Zyvox Tablet) 22:00 Tramadol Hcl (Ultram) PHA 04/15/25 In Process 18:30 Dietary Evaluation Review Comments: 1. Vital High Protein@45ml/hr providing 94g Protein, 1080kcal 903ml free water in 24 hrs, meeting pt's protein and energy needs at 100% 2. Offer Bryce BID PO for wound healing when pt is able to have clear liquids. 3. Advance to CCHO-60 diet when medically feasible approved by LEARNING SUPPORT ASSISTANT. Expected Outcomes/Goals: controlled DM, improved nutrition status, healed wounds gradual weight gain, Date of Service: Apr 15, 2025 Billing Provider: AMY DAN MD Common Visit Codes: [id number] CARE 30-74 MIN AKIN TIMMONS RESDIENT Apr 15, 2025 19:34 AMY DAN MD Apr 17, 2025 17:42
[2025-04-15 20:37] LABS: Hematocrit 28.7 % (41.0-53.0); Hemoglobin 9.1 g/dL (13.5-17.5); Mean Corpuscular Hemoglobin 28.1 pg (28.0-32.0); Mean Corpuscular Volume 88.2 fL (80.0-100.0); Nucleated Red Blood Cells % 0.1 %
[2025-04-15 20:51] LABS: Anion Gap 9 (5-15); BUN/Creatinine Ratio 19.8 (10.0-20.0); Blood Urea Nitrogen 20 mg/dL (9-23); Carbon Dioxide 21 mmol/L (20-31); Sodium 142 mmol/L (136-145)
[2025-04-15 20:52] LABS: Alanine Aminotransferase < 9 U/L (7-40); Albumin 1.9 g/dL (3.2-4.8); Alkaline Phosphatase 258 U/L (46-116); Bilirubin, Total < 0.2 mg/dL (0.2-1.0); Calcium 7.3 mg/dL (8.7-10.4); Chloride 112 mmol/L (98-107); Glucose 138 mg/dL (74-106); Potassium 3.2 mmol/L (3.5-5.1); Total Protein 4.6 g/dL (5.7-8.2)
[2025-04-15] MEDS: LINEZOLID 600MG TABLET PO SCH (22:00)
[2025-04-16] VITALS (9 sets, daily range): BP systolic 121–156; BP diastolic 61–99; PULSE 85–92; RESP 16–17; TEMP 97.5–98; O2SAT 97–99
[2025-04-16] MEDS ORDERED: methylPREDNISolone SOD SUCC 125 MG/2 ML VL IV ONE (05:30)
[2025-04-16] MEDS: PANTOPRAZOLE 40 MG TAB PO SCH (05:45)
[2025-04-16] MEDS: diphenhdrAMINE HCL 50 MG/1 ML VL IV ONE (05:45)
[2025-04-16 14:00] LABS: Anion Gap 11 (5-15); BUN/Creatinine Ratio 22.8 (10.0-20.0); Blood Urea Nitrogen 23 mg/dL (9-23); Carbon Dioxide 21 mmol/L (20-31); Glucose 79 mg/dL (74-106); Potassium 3.5 mmol/L (3.5-5.1); Sodium 145 mmol/L (136-145)
[2025-04-16 14:04] LABS: Alkaline Phosphatase 332 U/L (46-116); Chloride 113 mmol/L (98-107)
[2025-04-16 14:05] LABS: Alanine Aminotransferase < 9 U/L (7-40); Albumin 1.7 g/dL (3.2-4.8); Bilirubin, Total < 0.2 mg/dL (0.2-1.0); Calcium 6.9 mg/dL (8.7-10.4); Total Protein 4.1 g/dL (5.7-8.2)
[2025-04-16 15:24] LABS: Hematocrit 29.5 % (41.0-53.0); Hemoglobin 9.2 g/dL (13.5-17.5); Mean Corpuscular Hemoglobin 27.9 pg (28.0-32.0); Mean Corpuscular Volume 89.7 fL (80.0-100.0); Nucleated Red Blood Cells % 0.0 %
--- NOTE | 2025-04-16 18:15 | DVHPNRES ---
Progress Note Date Seen: Apr 16, 2025 Resident Creating Document: AKIN TIMMONS RESDIENT Medical Necessity Reason Pt with a Central, PICC or Fol: Yes The following are medically ne: Central Line, PICC Line, Owens Catheter Subjective Review of Systems Patient seen and examined at the bedside. Patient is feeling better and does not have any active complaint. Objective vital signs Vital Sign Date Time Temp Pulse Resp B/P (MAP) Pulse Ox O2 Delivery O2 Flow Rate FiO2 04/16/25 17:00 97.7 88 17 128/81 (97) 99 97.7 04/16/25 08:10 Room Air* 0 30 21 Total Intake and Output 04/15/25 04/15/25 04/16/25 15:00 23:00 07:00 Intake Total 300 ml 130 ml 350 ml Output Total 1050 ml 275 ml Balance 300 ml -920 ml 75 ml medications Current Medications Medications Dose Ordered Sig/Zaria Route Start Time Stop Time Status Last Admin Dose Admin Diagnostic Test (Pha) 1 strip IQ4HR 04/08/25 04:00 04/16/25 15:38 1 STRIP Insulin Human Regular IQ4HR SC 04/08/25 04:00 04/14/25 23:42 4 UNITS Dextrose 50 ml UD PRN IV 04/08/25 02:30 04/15/25 08:08 50 ML Micafungin Sodium 100 mg/Sodium Chloride 100 ml @ 100 mls/hr DAILY@1800 IV 04/10/25 18:00 04/16/25 18:03 100 MLS/HR Acetaminophen 650 mg Q4HP PRN PO 04/13/25 17:45 04/13/25 17:55 650 MG Metoclopramide HCl 5 mg Q8HPRN PRN IV 04/14/25 18:15 04/16/25 09:48 5 MG Enteral Nutritional Formula 240 ml BIDWM PO 04/15/25 08:00 04/16/25 07:48 240 ML Apixaban 5 mg BID PO 04/14/25 22:00 04/16/25 11:23 5 MG Pantoprazole Sodium 40 mg DAILY@0600 PO 04/16/25 06:00 04/16/25 05:45 40 MG Linezolid 600 mg BID PO 04/15/25 22:00 04/16/25 11:23 600 MG Tramadol HCl 50 mg Q6HP PRN PO 04/15/25 18:30 04/16/25 04:16 50 MG Examination General Appearance: Alert, Oriented X3, Cooperative, in mild distress HEENT: Atraumatic, PERRLA, EOMI, bilateral periorbital perioral swollen Respiratory: Clear to auscultation, Normal air movement Cardiovascular: Regular rate, Normal S1, Normal S2, No murmurs, no chest wall tenderness Abdominal: Normal bowel sounds, Soft, No tenderness, No hepatospenomegaly, No masses Extremities: No clubbing, No cyanosis, No edema, Normal pulses, No tenderness/swelling Skin: Multiple grade 2 to grade 3 decubitus ulcer at sacral and iliac region Neuro: Due to patient's generalized weakness, could not assess Psych/Mental Status: Mental status NL, Mood NL laboratory and microbiology Laboratory Tests 04/16/25 15:13 04/16/25 13:32 Test 04/16/25 13:32 Range/Units Serum Glucose 79 74-106 mg/dL Microbiology Date/Time Source Procedure Growth Status 04/11/25 11:50 Blood Blood Culture - Final NO GROWTH AFTER 5 DAYS OF INCUBATION. Complete 04/10/25 12:45 Catheter Site Aerobic Culture - Final Complete 04/08/25 08:54 Voided Urine Urine Culture - Final Enterococcus faecalis - VRE Presumptive Sussy albicans Complete 04/07/25 13:35 Sputum Gram Stain - Final Complete 04/07/25 13:35 Sputum Respiratory Culture - Final Complete Problem List/Assessment/Plan Problem List/Assessment/Plan This is a 45-year-old male with past medical history of type 1 diabetes, hypertension, (history of recurrent DKA), brought to the hospital due to altered mental status. Patient was found to have hypoglycemia (due to insulin). on 04/07/25, admitted and sedated and intubated. Patient extubated on 04/12. NEURO: Acute metabolic encephalopathy due to hypoglycemia, resolved * CT head without contrast demonstrated no acute intracranial abnormality, large bilateral mastoid effusion, moderate right sphenoid sinus mucosal thickening with secretions CARDIOVASCULAR: Hypertension GASTROINTESTINAL: Severe protein malnutrition Diabetic gastroparesis Elevated alkaline phosphatase, likely due to alcohol use disorder * Metoclopramide and Protonix and tramadol GENITOURINARY: Complicated UTI * Urine culture shows VRE and presumptive Sussy albicans * Linezolid oral and micafungin ENDOCRINE: Diabetes mellitus, type 1 Episodes of hypoglycemia * Insulin according to sliding scale METABOLIC: Severe protein calorie malnutrition, BMI 15.2 kg/m2 Hypoalbuminemia Hypernatremia, normalized * Glucerna b.i.d. HEME: Moderate anemia, likely due to anemia of chronic disease Bilateral upper limb and vein DVT * Duplex ultrasound shows, occlusive DVT in the right axillary vein, Nonocclusive DVT in the left internal jugular vein and Superficial venous thrombus in the bilateral basilic veins * On Eliquis INFECTIOUS DISEASE: Sepsis, due to Complicated UTI Complicated UTI * Blood culture on 04/07, shows Staphylococcus hemolyticus, subsequent blood cultures showed no growth * Linezolid and micafungin MUSCULOSKELETAL: Multiple Stage 2-3 decubitus ulcer Possible angioedema, has no respiratory distress * Home health for wound care and physiotherapy DIET: Pureed diet DVT prophylax: On Eliquis GI prophylaxis: Protonix Code status: Full code LINES/DRAINS/ACCESS: IV access: Peripheral line Owens catheter: Placed on 04/07/1995 DISPOSITION: Med/surge Patient's status discussed with patient. advance care planning-full code- time spent 19 mins Case discussed with Dr. Dan Plan discussed with: Patient My Orders My Orders Orders - AKIN TIMMONS RESDIRYLEY Procedure Category Date Status Time Tramadol Hcl (Ultram) PHA 04/15/25 In Process 18:30 * Crop Consultant CONS 04/16/25 Transmitted Consult Transfer Orders XFER 04/16/25 Transmitted 08:53 Communication Order ORDERS 04/16/25 Transmitted 08:53 Discontinue Tele SATHYA 04/16/25 In Process 08:53 * Crop Consultant CONS 04/16/25 Transmitted Consult Comprehensive LAB 04/17/25 Verified Metabolic Panel 04:00 Complete Blood Count LAB 04/17/25 Verified 04:00 D/C Rectal Tube ORDERS 04/16/25 Transmitted 16:56 D/C Owens SATHYA 04/16/25 In Process 16:56 Dietary Evaluation Review Comments: 1. Vital High Protein@45ml/hr providing 94g Protein, 1080kcal 903ml free water in 24 hrs, meeting pt's protein and energy needs at 100% 2. Offer Bryce BID PO for wound healing when pt is able to have clear liquids. 3. Advance to CCHO-60 diet when medically feasible approved by [employer]. Expected Outcomes/Goals: controlled DM, improved nutrition status, healed wounds gradual weight gain, Date of Service: Apr 16, 2025 Billing Provider: AMY DAN MD Common Visit Codes: 54181-[id number] INP/OBS CARE(HIGH) Secondary Visit Codes: [id number] CARE PLAN 30 MINUTES AKIN TIMMONS Apr 16, 2025 18:15 AMY DAN MD Apr 17, 2025 17:43
[2025-04-17 01:00] VITALS: BP 139/96; PULSE 95; RESP 17; TEMP 97.8; O2SAT 97
[2025-04-17 05:00] VITALS: BP 142/94; PULSE 91; RESP 18; TEMP 97.8; O2SAT 97
[2025-04-17 08:59] VITALS: BP 133/91; PULSE 93; RESP 18; TEMP 97.8; O2SAT 96
[2025-04-17 09:49] LABS: Hematocrit 26.4 % (41.0-53.0); Hemoglobin 8.5 g/dL (13.5-17.5); Mean Corpuscular Hemoglobin 28.1 pg (28.0-32.0); Mean Corpuscular Volume 86.7 fL (80.0-100.0); Nucleated Red Blood Cells % 0.1 %
[2025-04-17 10:19] LABS: BUN/Creatinine Ratio 16.1 (10.0-20.0); Blood Urea Nitrogen 15 mg/dL (9-23)
[2025-04-17 10:31] LABS: Alanine Aminotransferase < 9 U/L (7-40); Albumin 1.8 g/dL (3.2-4.8); Alkaline Phosphatase 393 U/L (46-116); Anion Gap 10 (5-15); Calcium 6.9 mg/dL (8.7-10.4); Carbon Dioxide 19 mmol/L (20-31); Chloride 112 mmol/L (98-107); Glucose 146 mg/dL (74-106); Potassium 3.3 mmol/L (3.5-5.1); Sodium 141 mmol/L (136-145); Total Protein 4.5 g/dL (5.7-8.2)
--- NOTE | 2025-04-17 10:35 | DVHDSRES ---
Discharge Summary Date of Admission Resident Creating Document: AKIN TIMMONS Apr 07, 2025 at 22:38 Date of Discharge: Apr 17, 2025 Labs/Diagnostic Data: Laboratory Results Test 04/17/25 08:45 04/17/25 08:02 04/16/25 13:32 04/12/25 09:24 White Blood Count 5.1 10^3/uL (4.4-10.8) Red Blood Count 3.04 10^6/uL (4.5-5.90) Hemoglobin 8.5 g/dL (13.5-17.5) Hematocrit 26.4 % (41.0-53.0) Mean Corpuscular Volume 86.7 fL (80.0-100.0) Mean Corpuscular Hemoglobin 28.1 pg (28.0-32.0) Mean Corpuscular Hemoglobin Concent 32.4 g/dL (32.0-36.0) Red Cell Distribution Width 17.6 % (11.8-14.3) Platelet Count 181 10^3/uL (140-450) Mean Platelet Volume 6.0 fL (6.9-10.8) Neutrophils (%) (Auto) 44.7 % (37.0-80.0) Lymphocytes (%) (Auto) 49.5 % (10.0-50.0) Monocytes (%) (Auto) 2.4 % (0.0-12.0) Eosinophils (%) (Auto) 2.7 % (0.0-7.0) Basophils (%) (Auto) 0.7 % (0.0-2.0) Neutrophils # (Auto) 2.3 10 ^3/uL (1.6-8.6) Lymphocytes # (Auto) 2.5 10 ^3/uL (0.4-5.4) Monocytes # (Auto) 0.1 10 ^3/uL (0-1.3) Eosinophils # (Auto) 0.1 10 ^3/uL (0-0.8) Basophils # (Auto) 0 10 ^3/uL (0-0.2) Nucleated Red Blood Cells 0.1 % Sodium Level 141 mmol/L (136-145) Potassium Level 3.3 mmol/L (3.5-5.1) Chloride Level 112 mmol/L (98-107) Carbon Dioxide Level 19 mmol/L (20-31) Anion Gap 10 (5-15) Blood Urea Nitrogen 15 mg/dL (9-23) Creatinine 0.93 mg/dL (0.700-1.30) Glomerular Filtration Rate Calc 103 mL/min (>90) BUN/Creatinine Ratio 16.1 (10.0-20.0) Serum Glucose 146 mg/dL (74-106) Calcium Level 6.9 mg/dL (8.7-10.4) Aspartate Amino Transferase (AST) 17 U/L (13-40) Alanine Aminotransferase (ALT) < 9 U/L (7-40) Alkaline Phosphatase 393 U/L (46-116) Total Protein 4.5 g/dL (5.7-8.2) Albumin 1.8 g/dL (3.2-4.8) POC Glucose 154 mg/dl (70-106) Magnesium Level 1.7 mg/dL (1.6-2.6) Blood Gas Specimen Type Arterial Blood Gas Sample Site Right radial Blood Gas Patient Temperature 37.0 Arterial Blood Date Drawn [id number] Arterial Blood pH 7.389 (7.350-7.450) Arterial Blood Partial Pressure CO2 24.3 mmHg (35.0-48.0) Arterial Blood Partial Pressure O2 132.7 mmHg (83.0-108.0) Arterial Blood HCO3 14.3 mmol/L (21.0-28.0) Arterial Blood Oxygen Saturation 98.4 % (94.0-98.0) Arterial Blood Base Excess -9.3 mmol/L (-2.0-3.0) Arterial Blood Oxyhemoglobin 97.9 % (94.0-98.0) Arterial Blood Carboxyhemoglobin 0.3 % (0.5-1.5) Arterial Blood Methemoglobin 0.2 % (0.0-1.5) Kyle Test Modified Blood Gas Total Hemoglobin 9.40 g/dL (13.5-17.5) Blood Gas Modality Vent - cpap Blood Gas Spontaneous Rate 14 FiO2 % 30.0 Blood Gas Spontaneous Tidal Volume 680 Blood Gas Pressure Support 8 Blood Gas PEEP or CPAP 5.0 Test 04/11/25 08:14 04/10/25 07:11 04/10/25 03:05 04/09/25 07:33 Blood Gas Set Respiration Rate 12.0 Blood Gas Tidal Volume 400.0 Random Vancomycin Level 38.4 ug/mL (5-10) Blood Gas Critical Value Read Back Yes Blood Gas Notified Whom Dr. kim gomez Blood Gas Notified Time [id number] Blood Gas Notified By Test 04/08/25 08:54 04/08/25 08:28 04/07/25 23:04 04/07/25 22:52 Urine Opiates Screen Neg (NEGATIVE) Urine Fentanyl Screen Pos (NEGATIVE) Urine Barbiturates Screen Neg (NEGATIVE) Urine Phencyclidine Screen Neg (NEGATIVE) Urine Amphetamines Screen Neg (NEGATIVE) Urine Benzodiazepines Screen Pos (NEGATIVE) Urine Cocaine Screen Neg (NEGATIVE) Urine Cannabinoids Screen Pos (NEGATIVE) Vitamin B12 Level 1074 pg/mL (211-911) Folic Acid 4.32 ng/mL (>5.38) Beta-Hydroxybutyric Acid 0.643 mmol/L (< 0.4) Thyroid Stimulating Hormone (TSH) 6.93 uIU/mL (0.55-4.78) Lactic Acid Level 0.9 mmol/L (0.4-2.0) Bl Gas Inspiratory/Expiratory Ratio 1:2.4 Specimen Drawn By Eloisa [facility] rt Test 04/07/25 14:11 04/07/25 13:42 Urine Color Dark-brown (Yellow) Urine Clarity Ex.turbid (Clear) Urine pH 5.5 (5.0-9.0) Urine Specific [place] 1.013 (1.001-1.035) Urine Protein 2+ (Negative) Urine Ketones Negative (Negative) Urine Blood 3+ /uL (Negative) Urine Nitrite Negative (Negative) Urine Bilirubin Negative (Negative) Urine Urobilinogen Normal mg/dL (Negative) Urine Leukocyte Esterase 3+ /uL (Negative) Urine RBC 253 /hpf (0 - 3) Urine WBC Clumps Present /hpf (None Seen) Urine Microscopic WBC 4011 /HPF (0-3) Urine Squamous Epithelial Cells None seen /hpf (<5) Urine Bacteria None seen /hpf (None Seen) Urine Yeast (Budding) Moderate /hpf (None Seen) Urine Glucose Normal mg/dL (Normal) Prothrombin Time 10.8 sec (9.3-11.8) Prothrombin Time INR 1.02 (0.9-1.15) Activated Partial Thromboplast Time 29.8 SEC (24.5-34.5) Other Laboratory Tests 04/17/25 08:45 Brief Hx & Hospital Course: HISTORY OF PRESENT ILLNESS: This is a 45 years old male with past medical history of insulin-dependent type 1 diabetes mellitus, hypertension, previous intubation and recurrent hospitalization due to DKA presented to the ED via EMS with altered level of consciousness. On arrival patient's blood glucose was 21, patient's pupils were nonreactive, patient was not reacting to sternal rub. Patient's GCS was 3 initially. D50 was given. Patient was later intubated in the ED to protect the airway. HOSPITAL COURSE: Due to altered mental status, the patient was intubated and put on mechanical ventilation on 04/07/2025. (to maintain airway). The patient was given IV dextrose. Head CT scan performed, showed no significant intracranial abnormalities. Urine culture showed VRE and presumptive Sussy albicans and blood culture showed Staphylococcus haemolyticus, the patient was started on vancomycin, cefepime and micafungin. Duplex ultrasound shows, occlusive DVT in the right auxiliary vein, nonconclusive DVT in the left internal jugular vein and Superficial venous thrombus in the bilateral basilic veins and the patient was started on Eliquis. On 04/12, patient is status had improved and extubated. Due to severe malnutrition, the patient was also given glycerin b.i.d.. During hospital admission, the patient's glucose was controlled with insulin according to sliding scale. Patient also had multiple grade 2-3 bedsores, which was managed with changing position and daily dressing. On 04/17/2024, patient was feeling better, blood glucose normalized, the patient did not have any active complaint, was able to tolerate oral intake. Discharge plan discussed with the patient and the patient discharged home. DISCHARGE PLAN: Follow up with the PCP within 1 week of the discharge. Follow up with the discharge Clinic within 1 week of the discharge. Home health for wound care and physical therapy Eliquis 5 mg twice daily for 90 days, for DVT FINAL DIAGNOSIS: Acute metabolic encephalopathy due to hypoglycemia/sepsis Sepsis, due to Complicated UTI Uncontrolled Diabetes mellitus, type 1 Episodes of hypoglycemia Multiple Stage 2-3 decubitus ulcer Possible angioedema, no respiratory distress Hypertension Severe protein malnutrition Diabetic gastroparesis Elevated alkaline phosphatase Complicated UTI Severe protein calorie malnutrition, BMI 15.2 kg/m2 Hypoalbuminemia Hypernatremia Moderate anemia, likely due to anemia of chronic disease Bilateral upper limb and vein DVT Condition at Discharge: Good Final Diagnosis/Problems List Hypoglycemia Discharge Disposition: Home with Health Services Discharge Instruct/Medications Diet: Consistent carbohydrate Activity: No Restrictions, As Tolerated Follow Up/Referral: Follow up with PCP within one week after discharge. follow with DC clinic within one week after discharge Medications: Continue Home meds Scheduled Apixaban Base (Eliquis), 5 MG PO BID Furosemide (Furosemide), 40 MG PO DAILY Insulin Regular (Human) (Novolin R), 0 UNITS SC IQ4HR Metoclopramide Hcl (Reglan), 5 MG PO TID Metoprolol Tartrate (Lopressor), 25 MG PO BID Nutritional Supplements (Ensure Clear), 240 ML PO TIDWM Pantoprazole Sodium Sesquihydr (Pantoprazole Sodium), 40 MG PO DAILY@0600 Spironolactone (Aldactone), 25 MG PO DAILY Ursodiol (Ursodiol), 300 MG PO BID Discharge Statement: "Patient was advised to return to the ER or call 911 if any headaches, dizziness, shortness of breath, chest pain, abdominal pain, bleeding, fevers, or worsening of medical condition. Patient was counseled about treatment plan, medications, possible side effects, patientverbalized understanding. All questions were answered to the best of my ability. This discharge took greater then 30 minutes in planning, reviewing documentation, counseling the patient, and discussing with other team members." ASSESSMENT ASSESSMENT Assessment Hypoglycemia AKIN TIMMONS Apr 17, 2025 10:35
[2025-04-17] MEDS ORDERED: APIX5TAB PO (10:43)
[2025-04-17 10:52] LABS: Bilirubin, Total 0.2 mg/dL (0.2-1.0)
[2025-04-17 11:44] VITALS: BP 133/91; PULSE 93; RESP 18; TEMP 97.8; O2SAT 96
[2025-04-17 13:00] VITALS: BP 131/85; PULSE 95; RESP 16; TEMP 98; O2SAT 97
== END 2025-04-17 15:40 | disposition home health service (06) | DRG 720 ==
LOC: EDBD 13:23 → ER 13:23 → OVERFLOW 22:38 → ICU WEST 23:58 → TELE-EAST 04-13 13:43 → EAST 04-16 10:05
PROVIDERS: ADMIT Internal Medicine; ATTEND Emergency Medicine
PROC: 0BH17EZ Insertion of Endotracheal Airway into Trachea, Via Natural or Artificial Opening (ICD-10-PCS; principal; 2025-04-07)
PROC: 5A1955Z Respiratory Ventilation, Greater than 96 Consecutive Hours (ICD-10-PCS; 2025-04-07)
PROC: 02HV33Z Insertion of Infusion Device into Superior Vena Cava, Percutaneous Approach (ICD-10-PCS; 2025-04-07)
DX: A41.9 Sepsis, unspecified organism (principal); J96.01 Acute respiratory failure with hypoxia; E43 Unspecified severe protein-calorie malnutrition; B37.89 Other sites of candidiasis; I82.A11 Acute embolism and thrombosis of right axillary vein; I82.613 Acute embolism and thrombosis of superficial veins of upper extremity, bilateral; G93.41 Metabolic encephalopathy; E87.29 Other acidosis; L89.153 Pressure ulcer of sacral region, stage 3; L89.623 Pressure ulcer of left heel, stage 3; L89.223 Pressure ulcer of left hip, stage 3; L89.893 Pressure ulcer of other site, stage 3; I82.C12 Acute embolism and thrombosis of left internal jugular vein; E87.0 Hyperosmolality and hypernatremia; R62.7 Adult failure to thrive; E88.09 Other disorders of plasma-protein metabolism, not elsewhere classified; T78.3XXA Angioneurotic edema, initial encounter; D63.8 Anemia in other chronic diseases classified elsewhere; N17.9 Acute kidney failure, unspecified; N30.00 Acute cystitis without hematuria; E10.43 Type 1 diabetes mellitus with diabetic autonomic (poly)neuropathy; I10 Essential (primary) hypertension; E10.649 Type 1 diabetes mellitus with hypoglycemia without coma; K31.84 Gastroparesis; E87.6 Hypokalemia; E83.42 Hypomagnesemia; B95.2 Enterococcus as the cause of diseases classified elsewhere; B95.7 Other staphylococcus as the cause of diseases classified elsewhere; Z16.21 Resistance to vancomycin; R74.8 Abnormal levels of other serum enzymes; Z79.4 Long term (current) use of insulin; Z88.0 Allergy status to penicillin; Z68.1 Body mass index [BMI] 19.9 or less, adult; X58.XXXA Exposure to other specified factors, initial encounter
CPT/HCPCS: 31500; 36415; 36556; 36600; 70450; 71045; 80048; 80053; 80202; 80307; 81001; 82010; 82607; 82746; 82805; 82962; 83605; 83735; 84443; 85025; 85610; 85730; 87040; 87070; 87077; 87081; 87086; 87186; 87205; 93005; 93970; 94002; 94003; 94640; 96365; 97110; 97116; 97163; 99152; 99291; 99292; G0378; J1815; J1956; J2185; J2248; J2470; J3480; J3490

== ENCOUNTER 2025-05-07 17:32 | Inpatient (IN) | payer MEDICAID ==
[~2025-05-07] VITALS: Ht 165.1 cm; Wt 52.8 kg
[~2025-05-07 17:32] MED LIST changes: +APIX5TAB PO
[2025-05-07 18:00] VITALS: PULSE 90; RESP 14; O2SAT 98
--- NOTE | 2025-05-07 18:33 | DVH ---
CHEST RADIOGRAPH Indication: Shortness of breath Technique: XY CHEST PORTABLE Comparison: 04/12/2025 FINDINGS: The cardiac silhouette is unremarkable. The lungs demonstrate right middle/ lower lobe airspace conso lidate. The pulmonary vasculature is prominent. Small right pleural effusion.. There is no pneumothor ax. IMPRESSION: Right middle/ lower lobe airspace consolidation. Follow-up to resolution. Small right pleural effusion.
[2025-05-07 18:52] LABS: Hematocrit 28.3 % (41.0-53.0); Hemoglobin 9.0 g/dL (13.5-17.5); Mean Corpuscular Hemoglobin 28.2 pg (28.0-32.0); Mean Corpuscular Volume 88.7 fL (80.0-100.0); Nucleated Red Blood Cells % 0.1 %
[2025-05-07 19:11] LABS: Alanine Aminotransferase 24 U/L (7-40); Anion Gap 8 (5-15); BUN/Creatinine Ratio 9.9 (10.0-20.0); Blood Urea Nitrogen 14 mg/dL (9-23); Chloride 102 mmol/L (98-107); Lipase 23 U/L (12-53)
[2025-05-07 19:20] LABS: Bilirubin, Total < 0.2 mg/dL (0.2-1.0)
[2025-05-07 19:35] LABS: Albumin 2.0 g/dL (3.2-4.8); Alkaline Phosphatase 579 U/L (46-116); Calcium 7.3 mg/dL (8.7-10.4); Carbon Dioxide 20 mmol/L (20-31); Glucose 651 mg/dL (74-106); Potassium 5.4 mmol/L (3.5-5.1); Sodium 130 mmol/L (136-145); Total Protein 5.0 g/dL (5.7-8.2)
[2025-05-07] MEDS: SODIUM CHLORIDE 0.9% 1,000 ML IV ONE ×3 (20:00→23:00)
[2025-05-07] MEDS: HYDROmorphone HCL 2 MG/ML VL/or syr IV ONE (20:04)
[2025-05-07] MEDS: InsuLIN REG 1unit/0.01ml Soln (100units/ml) SC ONE (20:06)
[2025-05-07 20:09] LABS: Base Excess -7.9 mmol/L (-2.0-3.0)
[2025-05-07 20:10] LABS: COVID19 ANTIGEN SOFIA FIA NEGATIVE (NEGATIVE)
[2025-05-07] MEDS: AZITHROMYCIN 500MG/ 250ML 250 ML IV ONE (20:15)
--- NOTE | 2025-05-07 21:05 | ED.PDOC ---
History of Present Illness HPI Comments This patient is a 45-year-old cachectic male who arrives to the ED today via EMS due to complaints of generalized weakness as well as hyperglycemic concerns and hypotensive concerns. Patient states a history of poorly-controlled diabetes, but denies any other pending health conditions. Patient is very frail and appears to be in significant poor overall health. Patient was mildly hypotensive on arrival. Chief Complaint: General Weakness Time Seen by MD: 17:46 Primary Care Provider: MANJU Reviewed Notes: Nurses Notes, Mid Level Net Developer Notes Allergies: Coded Allergies: Penicillins (Verified Adverse Reaction, Severe, ANAPHYLAXIS , 01/08/25) Piperacillin (Verified Adverse Reaction, Severe, ANAPHYLAXIS , 01/08/25) Tazobactam (Verified Adverse Reaction, Severe, ANAPHYLAXIS , 01/08/25) Home Meds Active Scripts Apixaban Base (ELIQUIS) 5 Mg Tab, 5 MG PO BID for 30 Days, #60 TAB 2 Refills Prov:AKIN TIMMONS RESDIENT 04/17/25 Ursodiol (Ursodiol) 300 Mg Cap, 300 MG PO BID for 30 Days, #60 CAP Prov:ANABELL ORDOÑEZ RESIDENT 02/13/25 Spironolactone (Aldactone) 25 Mg Tab, 25 MG PO DAILY for 30 Days, #30 TAB 2 Refills Prov:ANABELL ORDOÑEZ [facility] 02/13/25 Nutritional Supplements (ENSURE CLEAR) Bbry/Pom Liq, 240 ML PO TIDWM for 30 Days, #90 LIQ Prov:ANABELL ORDOÑEZ [facility] 02/13/25 Metoprolol Tartrate (Lopressor) 25 Mg Tb, 25 MG PO BID for 30 Days, #60 TAB Prov:ANABELL ORDOÑEZ [facility] 02/13/25 Insulin Regular (Human) (Novolin R) 100 Unit/Ml Inj, 0 UNITS SC IQ4HR for 30 Days, #1 INJ 3 Refills Blood Glucose (mg/dL)Insulin Regular Dose = 70 Treat hypoglycemia per protocol [id number] additional insulin 120-150 2 units 151-200 4 units 201-250 6 units 251-300 8 units 301-350 10 units > 351 12 units Prov:ANABELL ORDOÑEZ [facility] 02/13/25 Furosemide (Furosemide) 40 Mg Tab, 40 MG PO DAILY for 30 Days, #30 TAB 2 Refills Prov:ANABELL ORDOÑEZ RESIDENT 7/24/25 Metoclopramide Hcl (Reglan) 5 Mg Tab, 5 MG PO TID for 14 Days, #42 TAB Prov:NGA GARCIA RESIDENT 12/06/24 Pantoprazole Sodium Sesquihydr (Pantoprazole Sodium) 40 Mg Tab, 40 MG PO DAILY@0600 for 30 Days, #30 TAB Prov:NGA GARCIA RESIDENT 12/06/24 Information Source: Patient, Emergency Med Personnel Mode of Arrival: EMS Severity: Moderate Timing: Weeks Duration: Since onset Prehospital treatment: Poultry Killer Past Medical History PAST MEDICAL HISTORY: DM, HTN Surgical History: Denies all surgeries Family History Family History: Reviewed,noncontributory to illness Social History Smoker: Non-Smoker Alcohol: Denies ETOH Use Drugs: Marijuana Lives In: Home Constitutional: reports: fatigue, malaise, weakness; denies: chills, diaphoresis, fever, sweats, others EENTM: denies: blurred vision, double vision, ear bleeding, ear discharge, ear drainage, ear pain, ear ringing, eye pain, eye redness, hearing loss, mouth pain, mouth swelling, nasal discharge, nose bleeding, nose congestion, nose pain, photophobia, tearing, throat pain, throat swelling, voice changes, others Respiratory: denies: cough, hemoptysis, orthopnea, SOB at rest, shortness of breath, SOB with excertion, stridor, wheezing, others Cardiovascular: denies: chest pain, dizzy spells, diaphoresis, Dyspnea on exertion, edema, irregular heart beat, left arm pain, lightheadedness, palpit ations, PND, syncope, others Gastrointestinal: denies: abdomen distended, abdominal pain, blood streaked b owels, constipated, diarrhea, dysphagia, difficulty swallowing, hematemesis, melena, nausea, poor appetite, poor fluid intake, rectal bleeding, rectal pain, vomiting, others Genitourinary: denies: burning, dysuria, flank pain, frequency, hematuria, incontinence, penile discharge, penile sore, pain, testicle pain, testicle swelling, urgency, others Neurological: reports: dizziness; denies: fainting, headache, left sided numbness, left sided weakness, numbness, paresthesia, pre-existing deficit, right sided numbness, right sided weakness, seizure, speech problems, tingling, tremors, weakness, others Musculoskeletal: denies: back pain, gout, joint pain, joint swelling, muscle pain, muscle stiffness, neck pain, others Integumetry: denies: bruises, change in color, change in hair/nails, dryness, laceration, lesions, lumps, rash, wounds, others Allergic/Immunocompromised: denies: Difficulty Healing, Frequent Infections, Hives, Itching, others Hematologic/Lymphatic: denies: anemia, blood clots, easy bleeding, easy bruising, swollen glands, others Endocrine: denies: excessive hunger, excessive sweating, excessive thirst, excessive urination, flushing, intolerance to cold, intolerance to heat, unexplained weight gain, unexplained weight loss, others Psychiatric: denies: anxiety, bipolar disorder, depression, hopeless, panic di sorder, schizophrenia, sleepless, suicidal, others Physical Exam General Appearance: Moderate Distress (This patient is a moderate distress and appears to be in poor overall health. Patient appears to have a significant [facility] health concern.), Normal HEENT: Normal ENT Inspection, Pharynx Normal, TMs Normal Neck: Full Range of Motion, Normal, Normal Inspection Respiratory: Chest Non-Tender, Lungs Clear, No Accessory Muscle Use, No Respiratory Distress, Normal Breath Sounds Cardiovascular: No Edema, No JVD, No Murmur, No Gallop, Normal Peripheral Pulses, Regular Rate/Rhythm Breast Exam: Deferred Gastrointestinal: Non Tender, No Pulsatile Mass, Normal Bowel Sounds, Soft Genitalia: Deferred Pelvic: Deferred Rectal: Deferred Extremities: No calf tenderness, No pedal edema Neurologic: Alert Cerebellar Function: NOT DONE Reflexes: NOT DONE Skin: Wounds (Patient has significant edema noted throughout the entire sacral region with a developing pressure ulcer of the sacrum. Patient will require wound care to address this issue.) Lymphatic: No Adenopathy Was a procedure done? Was a procedure done?: No Differential Dx Considerations may include: Sepsis, electrolyte abnormality, acute coronary syndrome, hyperglycemia, DKA, chronic illness X-Ray, Labs, Meds, VS Vital Signs Date Time Temp Pulse Resp B/P (MAP) Pulse Ox O2 Delivery O2 Flow Rate FiO2 05/07/25 20:04 89 9 125/97 05/07/25 17:37 97.5 90 16 99/63 99 97.5 Lab Test 05/07/25 21:36 05/07/25 20:04 05/07/25 19:45 05/07/25 18:55 Range/Units Troponin I High Sensitivity Pending < 3 L </=54 ng/L Blood Gas Specimen Type Arterial Blood Gas Sample Site Right radial Blood Gas Patient Temperature 37.0 Arterial Blood Date Drawn Arterial Blood pH 7.322 L 7.350-7.450 Arterial Blood Partial Pressure CO2 34.3 L 35.0-48.0 mmHg Arterial Blood Partial Pressure O2 89.8 83.0-108.0 mmHg Arterial Blood HCO3 17.4 L 21.0-28.0 mmol/L Arterial Blood Oxygen Saturation 96.4 94.0-98.0 % Arterial Blood Base Excess -7.9 L -2.0-3.0 mmol/L Arterial Blood Oxyhemoglobin 95.7 94.0-98.0 % Arterial Blood Carboxyhemoglobin 0.2 L 0.5-1.5 % Arterial Blood Methemoglobin 0.5 0.0-1.5 % Kyle Test Modified Blood Gas Total Hemoglobin 9.70 L 13.5-17.5 g/dL Blood Gas Modality Room air FiO2 % 21.0 Influenza Type A Antigen Negative Negative Influenza Type B Antigen Negative Negative SARS-CoV-2 Antigen (Rapid) Negative NEGATIVE Test 05/07/25 18:51 05/07/25 18:25 Range/Units POC Glucose > 600 *H 70-106 mg/dl White Blood Count 4.0 L 4.4-10.8 10^3/uL Red Blood Count 3.19 L 4.5-5.90 10^6/uL Hemoglobin 9.0 L 13.5-17.5 g/dL Hematocrit 28.3 L 41.0-53.0 % Mean Corpuscular Volume 88.7 80.0-100.0 fL Mean Corpuscular Hemoglobin 28.2 28.0-32.0 pg Mean Corpuscular Hemoglobin Concent 31.8 L 32.0-36.0 g/dL Red Cell Distribution Width 16.7 H 11.8-14.3 % Platelet Count 190 140-450 10^3/uL Mean Platelet Volume 6.9 6.9-10.8 fL Neutrophils (%) (Auto) 40.7 37.0-80.0 % Lymphocytes (%) (Auto) 50.9 H 10.0-50.0 % Monocytes (%) (Auto) 6.0 0.0-12.0 % Eosinophils (%) (Auto) 1.9 0.0-7.0 % Basophils (%) (Auto) 0.5 0.0-2.0 % Neutrophils # (Auto) 1.6 1.6-8.6 10 ^3/uL Lymphocytes # (Auto) 2.0 0.4-5.4 10 ^3/uL Monocytes # (Auto) 0.2 0-1.3 10 ^3/uL Eosinophils # (Auto) 0.1 0-0.8 10 ^3/uL Basophils # (Auto) 0 0-0.2 10 ^3/uL Nucleated Red Blood Cells 0.1 % D-Dimer, Quantitative 1.17 H 0.0-0.49 mg/L FEU Sodium Level 130 L 136-145 mmol/L Potassium Level 5.4 H 3.5-5.1 mmol/L Chloride Level 102 98-107 mmol/L Carbon Dioxide Level 20 20-31 mmol/L Anion Gap 8 5-15 Blood Urea Nitrogen 14 9-23 mg/dL Creatinine 1.42 H 0.700-1.30 mg/dL Glomerular Filtration Rate Calc 62 >90 mL/min BUN/Creatinine Ratio 9.9 L 10.0-20.0 Serum Glucose 651 *H 74-106 mg/dL Lactic Acid Level 1.1 0.4-2.0 mmol/L Calcium Level 7.3 L 8.7-10.4 mg/dL Total Bilirubin < 0.2 L 0.2-1.0 mg/dL Aspartate Amino Transferase (AST) 48 H 13-40 U/L Alanine Aminotransferase (ALT) 24 7-40 U/L Alkaline Phosphatase 579 H 46-116 U/L Troponin I High Sensitivity < 3 L </=54 ng/L B-Type Natriuretic Peptide 158.40 0-100 pg/mL Total Protein 5.0 L 5.7-8.2 g/dL Albumin 2.0 L 3.2-4.8 g/dL Lipase 23 12-53 U/L Current Medications Medications (Trade) Dose Ordered Sig/Zaria Route Start Time Stop Time Status Last Admin Sodium Chloride 1,000 ml @ 1,000 mls/hr Q1H ONCE IV 05/07/25 18:00 05/07/25 18:59 DC 05/07/25 20:00 Hydromorphone HCl (Dilaudid Injection) 0.5 mg ONCE ONCE IV 05/07/25 18:00 05/07/25 18:01 DC 05/07/25 20:04 Azithromycin 250 ml @ 125 mls/hr ONCE ONCE IV 05/07/25 19:00 05/07/25 20:59 DC 05/07/25 20:15 Sodium Chloride 1,000 ml @ 1,000 mls/hr Q1H ONCE IV 05/07/25 19:45 05/07/25 20:44 DC 05/07/25 21:55 Insulin Human Regular (InsuLIN R) 15 units ONCE ONCE SC 05/07/25 19:45 05/07/25 19:46 DC 05/07/25 20:06 X-Ray, Labs, Meds, VS Comment All studies performed the ED were evaluated by me personally. Serum studies revealed an anemic state, significant hyponatremia with a blood sugar of 600, what appears to be acute renal injury, hyponatremia, elevated alk-phos and elevated D-dimer. Imaging studies confirmed a pneumonia. Patient will be admitted for management of his pneumonia as well as blood sugar concerns hand more concerning critical health concerns. Time of 1ST Reevaluation: 21:04 Reevaluation 1ST: Improved Consultation: PCP Patient Education/Counseling: Diagnosis, Treatment Family Education/Counseling: Diagnosis, Treatment SEPSIS Sepsis Screen Date sepsis recognized/suspect: May 07, 2025 Time Sepsis recognized/suspect: 1734 Recent Procedure: No On Antibiotic Therapy: No Respiratory Rate >20: No Heart Rate >90: No Temp<36 C (96.8 F) or >38.3 C: No SBP <90 or MAP <65 mmHG: Yes New Acute Mental Status Change: No Is the patient on CPAP, BIPAP,: No Physician Orders Chest Portable (05/07/25 17:50) Urinalysis (05/07/25 17:50) Heplock Iv (05/07/25 17:50) Poultry Killer (05/07/25 17:50) Electrocardigram (05/07/25 17:50) Troponin-I Hs (05/07/25 20:50) Blood Culture (05/07/25 19:17) Abg W/ Co-Ox (05/07/25 19:43) Vital Signs Date Time Temp Pulse Resp B/P (MAP) Pulse Ox O2 Delivery O2 Flow Rate FiO2 05/07/25 20:04 89 9 125/97 05/07/25 17:37 97.5 90 16 99/63 99 97.5 Laboratory Tests Test 05/07/25 18:25 Lactic Acid Level 1.1 mmol/L (0.4-2.0) White Blood Count 4.0 10^3/uL (4.4-10.8) L Medications Medications Dose Ordered Sig/Zaria Route Start Time Stop Time Status Last Admin Dose Admin Azithromycin 250 ml @ 125 mls/hr ONCE ONCE IV 05/07/25 19:00 05/07/25 20:59 DC 05/07/25 20:15 Hydromorphone HCl 0.5 mg ONCE ONCE IV 05/07/25 18:00 05/07/25 18:01 DC 05/07/25 20:04 Insulin Human Regular 15 units ONCE ONCE SC 05/07/25 19:45 05/07/25 19:46 DC 05/07/25 20:06 Sodium Chloride 1,000 ml @ 1,000 mls/hr Q1H ONCE IV 05/07/25 18:00 05/07/25 18:59 DC 05/07/25 20:00 Sodium Chloride 1,000 ml @ 1,000 mls/hr Q1H ONCE IV 05/07/25 19:45 05/07/25 20:44 DC 05/07/25 21:55 Departure 1 Departure Time of Disposition: 21:04 Impression: Primary Impression: Failure to thrive Additional Impressions: Pneumonia Hyperglycemia due to diabetes mellitus Anemia Hyponatremia [id number] kidney injury Elevated alkaline phosphatase level Elevated d-dimer Disposition: ADMITTED INPATIENT Condition: Fair Discharged With: Self Critical Care Note Critical Care Time?: Yes (1 hr-critical care time only) Critical care comment: Due to the high probability of a clinically significant and possibly life- threatening deterioration, the patient required my highest level of preparedness to intervene emergently and therefore, I personally provided 1 hour of critical care time exclusive of time spent on separate billable procedures. This critical care time includes, but isn't limited to, obtaining additional history, re-examination of the patient, re-examination of pulse oximetry, ordering and reviewing of additional studies as well as arrangement of an urgent treatment plan as well as a development of a management plan. Evaluation of the patient's response to treatment as well as frequent reassessments and discussions with other providers. Stability Stability form required: No Heart Score Heart Score: Heart Score Response (Comments) Value History Slightly Suspicious 0 EKG Repolarization Disturb 1 Age 45-64 1 Risk Factors 1 or 2 risk factors 1 Troponin Normal limit 0 Total 3 [facility] May 07, 2025 21:05
[2025-05-07] MEDS ORDERED: ACETAMINOPHEN 325 MG TAB PO PRN (22:30)
[2025-05-07] MEDS ORDERED: VANCOMYCIN PER PHARMACY 0 MG IV SCH (22:30)
[2025-05-07 22:48] LABS: Magnesium 1.7 mg/dL (1.6-2.6)
[2025-05-07 22:49] LABS: Cholesterol 105.0 mg/dL (< 200); HDL Cholesterol 48.0 mg/dL (40-59)
[2025-05-07 22:57] LABS: Triglycerides 337.0 mg/dL (< 150)
[2025-05-07] MEDS: ACCU-CHEK COMFORT CURVE STRIP VI SCH (23:00)
[2025-05-07] MEDS: INSULIN LANTUS (GLARGINE) 1 /0.01ml (100units/ml) SC ONE (23:09)
[2025-05-07] MEDS: INSULIN DRIP 100 UNIT/100ML 100 ML IV SCH (23:34)
[2025-05-07] MEDS: VANCOMYCIN 1GM/250ML KIT 250 ML IV ONE (23:38)
[2025-05-07 23:56] LABS: INR 1.14 (0.9-1.15); Partial Thromboplastin Time 29.3 SEC (24.5-34.5); Prothrombin Time 11.9 sec (9.3-11.8)
[2025-05-08] VITALS (39 sets, daily range): BP systolic 71–118; BP diastolic 37–81; PULSE 80–99; RESP 6–21; TEMP 90.5–97.7; O2SAT 99–100
[2025-05-08 00:41] LABS: Potassium 4.1 mmol/L (3.5-5.1)
[2025-05-08 00:42] LABS: Anion Gap 10 (5-15)
[2025-05-08 00:44] LABS: Calcium 6.7 mg/dL (8.7-10.4); Carbon Dioxide 17 mmol/L (20-31); Chloride 107 mmol/L (98-107); Sodium 134 mmol/L (136-145)
[2025-05-08 00:47] LABS: BUN/Creatinine Ratio 10.6 (10.0-20.0); Blood Urea Nitrogen 13 mg/dL (9-23)
[2025-05-08 00:51] LABS: Glucose 556 mg/dL (74-106)
[2025-05-08] MEDS: SODIUM CHLORIDE 0.9% 1,000 ML IV SCH (01:27)
--- NOTE | 2025-05-08 01:49 | DVHHPRES ---
History of Present Illness Resident Creating Document: KIERSTEN RUCKER RESIDENT History of Present Illness Quique Charlton is a 45-year-old male patient who presents to ER via EMS with complaint of altered mental status associated with hyperglycemia (over 600 mg/deciliters, measured by caregiver), nausea and chronic epigastric pain, prompting calling 911. Patient has not been compliant with medication. Patient is a poor historian, due to clinical status could not obtain rest of review of systems. Past medical history: Hyper tension, Diabetes type 1insulin-dependent, nonc ompliant with medication, multiple admissions due to DKA (most recent one less than 1 month ago) required previous ET intubation due to altered mental status, gastroparesis, severe malnutrition, completed endoscopy and evidence of sliding hernia and erosive esophagitis, nonocclusive DVT in left internal jugular on Eliquis, multiple sacral wounds present on admission, possible angioedema, normocytic anemia. Surgical history: Multiple endoscopies, placement of PICC line for TPN Family history: Noncontributory Social history: Lives alone in a trailer, does not get along with family members. Smokes marijuana, denies tobacco, alcohol and other drug abuse. Allergies: Denies Home medication: Insulin aspartate, metoclopramide 10 mg p.o. twice daily, pantoprazole 40 mg p.o. twice daily, sucralfate 1 g p.o. with meals Patient seen and examined bedside. Currently has no new complaints. Patient admitted to [facility] due to requirement of insulin drip, for further evaluation. Patient lying in bed, in no acute distress General: Lucid, cachectic, unkempt, afebrile, mucosae are moist Cardiovascular: Normal S1 and S2. No murmurs, gallops or rubs Respiratory: Normal ventilation mechanics. Clear lung sounds on auscultation Abdomen: Soft, epigastric pain with superficial palpation rest of abdomen is nontender, no organomegaly, normal bowel sounds MSK/skin: Mobilizes 4 limbs. Presents yellow crust and lower limbs, rest of skin is dry and warm Neurological: Oriented in 3 spheres. No motor no sensitive deficits. Pupils are isocoric and reactive # Metabolic encephalopathy - Secondary to DKA - Completed head CT ruling out intracranial acute pathology # Diabetic ketoacidosis -resolved - Required IV insulin. Currently with subcutaneous insulin - Responded to IV fluid # Ruled out sepsis - Mild tachycardia - Expectant antibiotic treatment. Probable cause of DKA is noncompliance of medication - Ordered blood culture, negative at the moment - Urine analysis negative for probable infection/inflammation. Presents glucosuria # Erosive esophagitis - Continue with pantoprazole IV twice daily. On Famotidine - Avoid NSAIDs. Recommend Tylenol for pain. Avoid opioids due to reduced motility of the GI tract. # RADHA due to VMN - Secondary to diabetic ketoacidosis - Have responded to IV fluid # Diabetes mellitus type 1 - Uncontrolled (hemoglobin A1c: 12) - Currently on insulin sliding scale - Gave advised on healthy lifestyle habits # Noncompliance - Patient is noncompliant with insulin therapy, because of DKA in this admission - Have ordered social science teacher consult to evaluate patient's safety, discharge with home health # Cachexia - Secondary to anorexia due to intolerance of feedings symptomatic by abdominal pain and nausea - Have ruled out previously gastroparesis - Will continue TPN. Risk and benefits of prolonged TPN have been explained, including infection and eventual endocarditis # Microcytic anemia - Control on lab - Probably secondary micronutrient deficiency due to food intake intolerance # Marijuana abuse - Gave advice on healthy lifestyle- Goals of care discussed with patient for over 18 minutes: Full CODE STATUS Discussed plan with Dr. Ramirez, patient and nurses: PT evaluation required. Patient may require home health safety evaluation and physical therapy or custodial facility or assisted living placement. Patient discharged on 07/04/2023, was postponed awaiting for TPN to arrive home. Past Medical History Per HPI Past Surgical History Per HPI Family History Per HPI Past Social History Per HPI Review of Systems Review of Systems Per HPI Allergies: Coded Allergies: Penicillins (Verified Adverse Reaction, Severe, ANAPHYLAXIS , 01/08/25) Piperacillin (Verified Adverse Reaction, Severe, ANAPHYLAXIS , 01/08/25) Tazobactam (Verified Adverse Reaction, Severe, ANAPHYLAXIS , 01/08/25) Medications Current Medications Medications Dose Ordered Sig/Zaria Route Start Time Stop Time Status Last Admin Dose Admin Acetaminophen 325 mg Q4HP PRN PO 05/07/25 22:30 Ondansetron HCl 4 mg Q4HP PRN IV 05/07/25 22:30 Enoxaparin Sodium 30 mg DAILY SC 05/08/25 10:00 Insulin Human (Reg)/Sodium Chloride 100 ml @ 0.5 mls/hr Q24H IV 05/07/25 22:30 10/16/25 01:30 6 MLS/HR Diagnostic Test (Pha) 1 strip Q90MIN 05/07/25 22:30 05/08/25 01:36 1 STRIP Dextrose 50 ml PRN PRN IV 05/07/25 22:30 Insulin Glargine 15 units DAILY SC 05/08/25 10:00 Hydromorphone HCl 0.25 mg Q4HPRN PRN IV 05/07/25 22:30 Vancomycin HCl 0 ml @ 0 mls/hr UD IV 05/07/25 22:30 UNV Sodium Chloride 1,000 ml @ 100 mls/hr Q10H IV 05/07/25 22:30 05/08/25 01:27 100 MLS/HR Meropenem 50 ml @ 17 mls/hr Q12H IV 05/08/25 06:00 Exam Vital Signs Vital Signs Date Time Temp Pulse Resp B/P (MAP) Pulse Ox O2 Delivery O2 Flow Rate FiO2 05/07/25 20:04 89 9 125/97 05/07/25 17:37 97.5 99 97.5 Exam Patient lying in bed, in no acute distress General: Lucid, somnolent, cachectic, unkempt, afebrile, mucosae are moist Cardiovascular: Normal S1 and S2. No murmurs, gallops or rubs Respiratory: Normal ventilation mechanics. Clear lung sounds on auscultation Abdomen: Soft, epigastric pain with superficial palpation rest of abdomen is nontender, no organomegaly, normal bowel sounds MSK/skin: Mobilizes 4 limbs. Presents yellow crust and lower limbs, rest of skin is dry and warm. Sacral decubitus ulcer stage II-III present on admission, predominantly on right thigh Neurological: Oriented in 3 spheres. No motor no sensitive deficits. Pupils are isocoric and reactive Labs/Xrays Labs Test 05/08/25 00:28 05/07/25 23:25 05/07/25 21:36 05/07/25 20:04 Range/Units POC Glucose 458 *H 70-106 mg/dl Prothrombin Time 11.9 H 9.3-11.8 sec Prothrombin Time INR 1.14 0.9-1.15 Activated Partial Thromboplast Time 29.3 24.5-34.5 SEC Sodium Level 134 L 136-145 mmol/L Potassium Level 4.1 3.5-5.1 mmol/L Chloride Level 107 98-107 mmol/L Carbon Dioxide Level 17 L 20-31 mmol/L Anion Gap 10 5-15 Blood Urea Nitrogen 13 9-23 mg/dL Creatinine 1.23 0.700-1.30 mg/dL Glomerular Filtration Rate Calc 74 >90 mL/min BUN/Creatinine Ratio 10.6 10.0-20.0 Serum Glucose 556 *H 74-106 mg/dL Serum Osmolality 307 H 278-298 mOsm/kg Calcium Level 6.7 L 8.7-10.4 mg/dL Ammonia 22 11-32 umol/L Phosphorus Level 2.6 2.4-5.1 mg/dL Magnesium Level 1.7 1.6-2.6 mg/dL Troponin I High Sensitivity < 3 L </=54 ng/L Triglycerides Level 337 H < 150 mg/dL Cholesterol Level 105 < 200 mg/dL LDL Cholesterol 16 < 100 mg/dL HDL Cholesterol 48 40-59 mg/dL Thyroid Stimulating Hormone (TSH) 7.19 H 0.55-4.78 uIU/mL Blood Gas Specimen Type Arterial Blood Gas Sample Site Right radial Blood Gas Patient Temperature 37.0 Arterial Blood Date Drawn Arterial Blood pH 7.322 L 7.350-7.450 Arterial Blood Partial Pressure CO2 34.3 L 35.0-48.0 mmHg Arterial Blood Partial Pressure O2 89.8 83.0-108.0 mmHg Arterial Blood HCO3 17.4 L 21.0-28.0 mmol/L Arterial Blood Oxygen Saturation 96.4 94.0-98.0 % Arterial Blood Base Excess -7.9 L -2.0-3.0 mmol/L Arterial Blood Oxyhemoglobin 95.7 94.0-98.0 % Arterial Blood Carboxyhemoglobin 0.2 L 0.5-1.5 % Arterial Blood Methemoglobin 0.5 0.0-1.5 % Kyle Test Modified Blood Gas Total Hemoglobin 9.70 L 13.5-17.5 g/dL Blood Gas Modality Room air FiO2 % 21.0 Test 05/07/25 18:55 05/07/25 18:25 Range/Units Influenza Type A Antigen Negative Negative Influenza Type B Antigen Negative Negative SARS-CoV-2 Antigen (Rapid) Negative NEGATIVE White Blood Count 4.0 L 4.4-10.8 10^3/uL Red Blood Count 3.19 L 4.5-5.90 10^6/uL Hemoglobin 9.0 L 13.5-17.5 g/dL Hematocrit 28.3 L 41.0-53.0 % Mean Corpuscular Volume 88.7 80.0-100.0 fL Mean Corpuscular Hemoglobin 28.2 28.0-32.0 pg Mean Corpuscular Hemoglobin Concent 31.8 L 32.0-36.0 g/dL Red Cell Distribution Width 16.7 H 11.8-14.3 % Platelet Count 190 140-450 10^3/uL Mean Platelet Volume 6.9 6.9-10.8 fL Neutrophils (%) (Auto) 40.7 37.0-80.0 % Lymphocytes (%) (Auto) 50.9 H 10.0-50.0 % Monocytes (%) (Auto) 6.0 0.0-12.0 % Eosinophils (%) (Auto) 1.9 0.0-7.0 % Basophils (%) (Auto) 0.5 0.0-2.0 % Neutrophils # (Auto) 1.6 1.6-8.6 10 ^3/uL Lymphocytes # (Auto) 2.0 0.4-5.4 10 ^3/uL Monocytes # (Auto) 0.2 0-1.3 10 ^3/uL Eosinophils # (Auto) 0.1 0-0.8 10 ^3/uL Basophils # (Auto) 0 0-0.2 10 ^3/uL Nucleated Red Blood Cells 0.1 % D-Dimer, Quantitative 1.17 H 0.0-0.49 mg/L FEU Hemoglobin A1c 11.4 H <5.7 % A1C Lactic Acid Level 1.1 0.4-2.0 mmol/L Total Bilirubin < 0.2 L 0.2-1.0 mg/dL Aspartate Amino Transferase (AST) 48 H 13-40 U/L Alanine Aminotransferase (ALT) 24 7-40 U/L Alkaline Phosphatase 579 H 46-116 U/L B-Type Natriuretic Peptide 158.40 0-100 pg/mL Total Protein 5.0 L 5.7-8.2 g/dL Albumin 2.0 L 3.2-4.8 g/dL Lipase 23 12-53 U/L Vitamin D 25-Hydroxy 8.9 L 30.0-100 ng/mL SEPSIS Sepsis Screen Date sepsis recognized/suspect: May 07, 2025 Time Sepsis recognized/suspect: 1734 Recent Procedure: No On Antibiotic Therapy: No Respiratory Rate >20: No Heart Rate >90: No Temp<36 C (96.8 F) or >38.3 C: No SBP <90 or MAP <65 mmHG: Yes New Acute Mental Status Change: No Is the patient on CPAP, BIPAP,: No Physician Orders Chest Portable (05/07/25 17:50) Heplock Iv (05/07/25 17:50) Registered Diet Technician (05/07/25 17:50) Electrocardigram (05/07/25 17:50) Blood Culture (05/07/25 19:17) Abg W/ Co-Ox (05/07/25 19:43) Admit (05/07/25 22:20) Code Status (05/07/25 22:20) Acetaminophen Tablet (Tylenol Tablet) (05/07/25 22:30) Ondansetron Hcl (Zofran) (05/07/25 22:30) Complete Blood Count (05/08/25 04:00) Comprehensive Metabolic Panel (05/08/25 04:00) Npo (Nothing By Mouth) Diet (05/08/25 Breakfast) Enoxaparin Sodium (Lovenox) (05/08/25 10:00) Oxygen By Nasal Cannula (05/07/25 22:20) Stat Ekg For Chest Pain (05/07/25 22:20) Notify Md Of Changes From Base (05/07/25 22:20) Tissue Coordinator For 24 Hours (05/07/25 22:20) Emergency Dysrhythmia Protocol (05/07/25 22:20) Rhythm Strips Once Every Shift (05/07/25 22:20) Vitamin B12 (05/07/25 22:20) Urinalysis (05/07/25 22:20) Drug Screen (05/07/25 22:20) Insulin Drip 100 Unit/100ml (Myxredlin 1 (05/07/25 22:30) Glucose Blood (Accu-Chek Comfort Curve T (05/07/25 22:30) D/C All Diabetic Medications (05/07/25 22:20) Insulin Drip Protocol (05/07/25 22:20) Dextrose 50% Syringe (05/07/25 22:30) Insulin Lantus (Glargine) (Lantus) (05/08/25 10:00) Basic Metabolic Panel (05/08/25 12:00) Basic Metabolic Panel (05/08/25 18:00) Basic Metabolic Panel (05/09/25 00:00) Basic Metabolic Panel (05/09/25 06:00) Hydromorphone Injection (Dilaudid Inject (05/07/25:30) Urine Bacterial Culture (05/07/25:28) Respiratory Culture W/ Gs (05/07/25:) Mrsa Screen (05/07/25:) Vancomycin Per Pharmacy (05/07/25:) Sodium Chloride 0.9% (05/07/25:30) Meropenem 1gm Ivpb (Merrem 1gm/50ml) (05/08/25 06:00) Vital Signs Date Time Temp Pulse Resp B/P (MAP) Pulse Ox O2 Delivery O2 Flow Rate FiO2 05/07/25 20:04 89 9 125/97 Laboratory Tests Test 05/07/25 18:25 Lactic Acid Level 1.1 mmol/L (0.4-2.0) White Blood Count 4.0 10^3/uL (4.4-10.8) L Medications Medications Dose Ordered Sig/Zaria Route Start Time Stop Time Status Last Admin Dose Admin Azithromycin 250 ml @ 125 mls/hr ONCE ONCE IV 05/07/25 19:00 05/07/25 20:59 DC 05/07/25 20:15 125 MLS/HR Diagnostic Test (Pha) 1 strip Q90MIN 05/07/25 22:30 05/08/25 01:36 1 STRIP Hydromorphone HCl 0.5 mg ONCE ONCE IV 05/07/25 18:00 05/07/25 18:01 DC 05/07/25 20:04 0.5 MG Insulin Glargine 15 units ONCE ONCE SC 05/07/25 22:30 05/07/25 22:39 DC 05/07/25 23:09 15 UNITS Insulin Human (Reg)/Sodium Chloride 100 ml @ 0.5 mls/hr Q24H IV 05/07/25 22:30 05/08/25 01:30 6 MLS/HR Insulin Human Regular 15 units ONCE ONCE SC 05/07/25 19:45 05/07/25 19:46 DC 05/07/25 20:06 15 UNITS Sodium Chloride 1,000 ml @ 100 mls/hr Q10H IV 05/07/25 22:30 05/08/25 01:27 100 MLS/HR Sodium Chloride 1,000 ml @ 1,000 mls/hr Q1H ONCE IV 05/07/25 18:00 05/07/25 18:59 DC 05/07/25 20:00 1,000 MLS/HR Sodium Chloride 1,000 ml @ 1,000 mls/hr Q1H ONCE IV 05/07/25 19:45 05/07/25 20:44 DC 05/07/25 21:55 1,000 MLS/HR Sodium Chloride 1,000 ml @ 1,000 mls/hr Q1H ONCE IV 05/07/25 22:30 05/07/25 23:29 DC 05/07/25 23:00 1,000 MLS/HR Vancomycin HCl 250 ml @ 250 mls/hr ONCE ONCE IV 05/07/25 23:00 05/07/25 23:59 DC 05/07/25 23:38 250 MLS/HR Assessment/Plan Assessment/Plan Hyperglycemic hyperosmolar state Ruled out DKA Metabolic encephalopathy probably secondary to sepsis Sepsis secondary to nonhealing decubitus sacral wound versus aspiration pneumonia Rule out CVA Sepsis probably secondary to decubitus sacral ulcer (present on admission) Ordered head CT Serum osmolarity above 300 and glucose above 600 On IV insulin drip and IV fluids Currently under empiric IV antibiotics (meropenem and vancomycin) Ordered panculture (blood, urine, sputum and wound) Wound care on board RADHA due to VMN Hyponatremia/pseudo hyponatremia Hyperkalemia Metabolic acidosis with normal anion gap Indicated IV fluid Replenished electrolytes Required hyperkalemia protocol Diabetes mellitus type 1 - Uncontrolled (hemoglobin A1c: 11.4%) Hypertension Insulin drip Hold antihypertensive medication due to soft blood pressure Gave advised on healthy lifestyle habits Noncompliance Patient is noncompliant with insulin therapy Erosive esophagitis Continue with pantoprazole IV twice Avoid NSAIDs. Recommend Tylenol for pain. Avoid opioids due to reduced motility of the GI tract. Transaminitis Monitor Cachexia Severe malnutrition (BMI 16.7) Diabetic gastroparesis Patient currently NPO since patient is on insulin drip Patient has history of requiring TPN for feedings, currently patient can not tolerate feedings at home Normocytic anemia Upper extremity DVT - on apixaban Monitor H&H Probably secondary micronutrient deficiency due to food intake intolerance Currently on therapeutic enoxaparin Marijuana abuse Gave advice on healthy lifestyle Goals of care discussed with patient for over 18 minutes: Full CODE STATUS Discussed plan with Dr. Brothers, patient and nurses: Patient admitted to [facility] since he requires IV insulin drip. Currently on IV fluids, IV antibiotics and optimizing pain medication. Patient has poor prognosis Plan discussed with: Patient, Other (Nurses) My Orders Orders - KIERSTEN RUCKER RESIDENT Procedure Category Date Status Time Admit ADMIT 05/07/25 Transmitted 22:20 Code Status CODE 05/07/25 Transmitted 22:20 Acetaminophen Tablet PHA 05/07/25 In Process (Tylenol Tablet) 22:30 Ondansetron Hcl PHA 05/07/25 In Process (Zofran) 22:30 Complete Blood Count LAB 05/08/25 Logged 04:00 Comprehensive LAB 05/08/25 Logged Metabolic Panel 04:00 Npo (Nothing By DIET 05/08/25 Transmitted Mouth) Diet Breakfast Enoxaparin Sodium PHA 05/08/25 In Process (Lovenox) 10:00 Oxygen By Nasal RT 05/07/25 Transmitted Cannula 22:20 Stat Ekg For Chest SATHYA 05/07/25 In Process Pain 22:20 Notify Of Changes SATHYA 05/07/25 In Process From Base 22:20 Tissue Coordinator For SATHYA 05/07/25 In Process 24 Hours 22:20 Emergency Dysrhythmia SATHYA 05/07/25 In Process Protocol 22:20 Rhythm Strips Once SATHYA 05/07/25 In Process Every Shift 22:20 Vitamin B12 LAB 05/07/25 In Process 22:20 Urinalysis LAB 05/07/25 Logged 22:20 Drug Screen LAB 05/07/25 Logged 22:20 Insulin Drip 100 PHA 05/07/25 In Process Unit/100ml (Myxredlin 22:30 Glucose Blood PHA 05/07/25 In Process (Accu-Chek Comfort 22:30 D/C All Diabetic SATHYA 05/07/25 In Process Medications 22:20 Insulin Drip Protocol SATHYA 05/07/25 In Process 22:20 Dextrose 50% Syringe PHA 05/07/25 In Process 22:30 Insulin Lantus PHA 05/08/25 In Process (Glargine) (Lantus) 10:00 Basic Metabolic Panel LAB 05/08/25 Logged 12:00 Basic Metabolic Panel LAB 05/08/25 Logged 18:00 Basic Metabolic Panel LAB 05/09/25 Verified 00:00 Basic Metabolic Panel LAB 05/09/25 Verified 06:00 Hydromorphone PHA 05/07/25 In Process Injection (Dilaudid 22:30 Urine Bacterial RICHARD 05/07/25 Logged Culture 22:28 Respiratory Culture RICHARD 05/07/25 Logged W/ Gs 22:28 Mrsa Screen RICHARD 05/07/25 Logged 22:28 Vancomycin Per PHA 05/07/25 Pending Pharmacy 22:30 Sodium Chloride 0.9% PHA 05/07/25 In Process 22:30 Meropenem 1gm Ivpb PHA 05/08/25 In Process (Merrem 1gm/50ml) 06:00 Date of Service: May 07, 2025 Billing Provider: BHAVANA HERNANDEZ MD Common Visit Codes: [id number] INP/OBS CARE (HIGH) Secondary Visit Codes: [id number] CARE PLAN 30 MINUTES KIERSTEN RUCKER May 08, 2025 01:49
[2025-05-08 02:16] LABS: Cannabinoid Screen, Urine Pos (NEGATIVE)
[2025-05-08 02:17] LABS: Urine Protein, UAD TRACE (Negative)
[2025-05-08 02:25] LABS: Amphetamine Screen, Urine Neg (NEGATIVE); Barbiturate Scree,Urine Neg (NEGATIVE); Benzodiazephine Screen, Urine Neg (NEGATIVE); Cocaine Screen, Urine Neg (NEGATIVE); Opiate Scree,Urine Neg (NEGATIVE); Phencyclidine Screen, Urine Neg (NEGATIVE)
[2025-05-08] MEDS: PANTOPRAZOLE 40 MG/10 ML VIAL INJ IV ONE (03:45)
--- NOTE | 2025-05-08 04:27 | DVH ---
EXAM: CT HEAD WITHOUT CONTRAST INDICATION: ALOC TECHNIQUE: CT of the head without intravenous contrast. Coronal and sagittal reformatted images are s ubmitted. Radiation Dose : 1. Head: CT Dose: CTDI volume is 67.5 mGy. Dose-length product is 1598.2 mGy*cm The dose indicators for CT are the volume Computed Tomography (CT) Dose Index (CTDIvol) and the Dose Length Product (DLP), and are measured in units of mGy and mGy-cm, respectively. These indicators are not patient dose, but values generated from the CT scanner acquisition factors. The report includes radiation exposure data for exposures received during this examination. All CT scans at this medical facility are performed using dose modulation techniques as appropriate to a performed exam including the following: Automated exposure control was utilized; adjustment of the MA and/or KV according to patient size; and use of iterative reconstruction technique. COMPARISON: CT HEAD WITHOUT CONTRAST on DOS: 04/07/25, CT HEAD WITHOUT CONTRAST on DOS: 01/19/25, CT HE AD WITHOUT CONTRAST on DOS: 01/07/25 FINDINGS: There is no evidence of acute intracranial hemorrhage, extra-axial collection, mass effect, midline s hift, herniation or hydrocephalus. The ventricles, sulci and cisterns are age appropriate. The redding-white differentiation is intact. The visualized paranasal sinuses and mastoid air cells are clear. No depressed calvarial fracture. The surrounding soft tissues are unremarkable. IMPRESSION: 1. No evidence of acute intracranial abnormality.
[2025-05-08 05:10] LABS: Hematocrit 30.2 % (41.0-53.0); Hemoglobin 9.3 g/dL (13.5-17.5); Mean Corpuscular Hemoglobin 27.3 pg (28.0-32.0); Mean Corpuscular Volume 88.3 fL (80.0-100.0); Nucleated Red Blood Cells % 0.1 %
[2025-05-08 05:30] LABS: Alanine Aminotransferase 23 U/L (7-40); Anion Gap 12 (5-15); BUN/Creatinine Ratio 8.0 (10.0-20.0); Blood Urea Nitrogen 9 mg/dL (9-23); Potassium 4.0 mmol/L (3.5-5.1)
[2025-05-08 05:36] LABS: Albumin 2.0 g/dL (3.2-4.8); Alkaline Phosphatase 573 U/L (46-116); Bilirubin, Total < 0.2 mg/dL (0.2-1.0); Calcium 7.1 mg/dL (8.7-10.4); Carbon Dioxide 15 mmol/L (20-31); Chloride 108 mmol/L (98-107); Glucose 355 mg/dL (74-106); Sodium 135 mmol/L (136-145); Total Protein 5.3 g/dL (5.7-8.2)
[2025-05-08] MEDS ORDERED: CEFEPIME 1GM/50ML 50 ML IV SCH (06:00)
[2025-05-08] MEDS: MEROPENEM 1GM IVPB 50 ML IV SCH ×2 (06:23→13:25)
[2025-05-08 07:35] LABS: Magnesium 1.8 mg/dL (1.6-2.6)
[2025-05-08 07:56] LABS: Base Excess -9.6 mmol/L (-2.0-3.0)
[2025-05-08] MEDS: INSULIN LANTUS (GLARGINE) 1 /0.01ml (100units/ml) SC SCH (09:43)
[2025-05-08] MEDS: PANTOPRAZOLE 40 MG/10 ML VIAL INJ IV SCH (09:43)
[2025-05-08] MEDS: ENOXAPARIN SOD 100 MG/1 ML SYRINGE SC SCH (09:48)
[2025-05-08] MEDS ORDERED: ENOXAPARIN SOD 30 MG/0.3 ML SYRINGE SC SCH (10:00)
[2025-05-08] MEDS: DEXTROSE (50%) 50ML SYRG IV PRN ×2 (11:57→16:11)
[2025-05-08 12:12] LABS: Potassium 4.2 mmol/L (3.5-5.1); Sodium 138 mmol/L (136-145)
[2025-05-08 12:13] LABS: Anion Gap 8 (5-15); Chloride 112 mmol/L (98-107)
[2025-05-08 12:19] LABS: BUN/Creatinine Ratio 9.9 (10.0-20.0); Blood Urea Nitrogen 10 mg/dL (9-23); Calcium 6.7 mg/dL (8.7-10.4); Carbon Dioxide 18 mmol/L (20-31); Glucose 66 mg/dL (74-106)
--- NOTE | 2025-05-08 13:15 | DVHPN2 ---
Reviewed: H&P Changes from previous H/P or p: No Changes General: Per HPI Objective Vitals Vital Signs Date Time Temp Pulse Resp B/P (MAP) Pulse Ox O2 Delivery O2 Flow Rate FiO2 05/08/25 11:35 90 05/08/25 07:00 90.7 9 102/76 (85) 100 195.3 05/08/25 06:51 Room Air* 0 21 Intake/Output Intake and Output 05/08/25 07:00 Intake Total 222 ml Balance 222 ml Intake IV Total 222 ml Exam General: Lucid, cachectic, unkempt, afebrile, mucosae are moist Cardiovascular: Normal S1 and S2. No murmurs, gallops or rubs Respiratory: Normal ventilation mechanics. Clear lung sounds on auscultation Abdomen: Soft, epigastric pain with superficial palpation rest of abdomen is nontender, no organomegaly, normal bowel sounds MSK/skin: Mobilizes 4 limbs. Presents yellow crust and lower limbs, rest of skin is dry and warm Neurological: Oriented in 3 spheres. No motor no sensitive deficits. Pupils are isocoric and reactive Medications Current Medications Medications Dose Ordered Sig/Zaria Route Start Time Stop Time Status Last Admin Dose Admin Acetaminophen 325 mg Q4HP PRN PO 05/07/25 22:30 Ondansetron HCl 4 mg Q4HP PRN IV 05/07/25 22:30 Insulin Human (Reg)/Sodium Chloride 100 ml @ 0.5 mls/hr Q24H IV 05/07/25 22:30 05/08/25 01:30 6 MLS/HR Diagnostic Test (Pha) 1 strip Q90MIN 05/07/25 22:30 05/08/25 12:02 1 STRIP Dextrose 50 ml PRN PRN IV 05/07/25 22:30 05/08/25 11:57 50 ML Insulin Glargine 15 units DAILY SC 05/08/25 10:00 05/08/25 09:43 15 UNITS Hydromorphone HCl 0.25 mg Q4HPRN PRN IV 05/07/25 22:30 Vancomycin HCl 0 ml @ 0 mls/hr UD IV 05/07/25 22:30 Sodium Chloride 1,000 ml @ 100 mls/hr Q10H IV 05/07/25 22:30 05/08/25 01:27 100 MLS/HR Enoxaparin Sodium 50 mg Q12HR SC 05/08/25 10:00 05/08/25 09:48 50 MG Pantoprazole Sodium 40 mg BID IV 05/08/25 10:00 05/08/25 09:43 40 MG Meropenem 50 ml @ 17 mls/hr Q8H IV 05/08/25 14:00 Vancomycin HCl 100 ml @ 100 mls/hr Q12H IV 05/08/25 13:00 Laboratory Results Laboratory Tests 05/08/25 04:15 05/08/25 11:52 Chemistry Test 05/07/25 18:25 05/07/25 21:36 05/07/25 23:25 05/08/25 04:15 Albumin 2.0 g/dL (3.2-4.8) L 2.0 g/dL (3.2-4.8) L Calcium Level 7.3 mg/dL (8.7-10.4) L 6.7 mg/dL (8.7-10.4) L 7.1 mg/dL (8.7-10.4) L Total Protein 5.0 g/dL (5.7-8.2) L 5.3 g/dL (5.7-8.2) L Magnesium Level 1.7 mg/dL (1.6-2.6) 1.8 mg/dL (1.6-2.6) Phosphorus Level 2.6 mg/dL (2.4-5.1) 1.9 mg/dL (2.4-5.1) L Test 05/08/25 11:52 Calcium Level 6.7 mg/dL (8.7-10.4) L Coagulation Test 05/07/25 18:25 05/07/25 23:25 D-Dimer, Quantitative 1.17 mg/L FEU (0.0-0.49) H Prothrombin Time 11.9 sec (9.3-11.8) H Prothrombin Time INR 1.14 (0.9-1.15) Activated Partial Thromboplast Time 29.3 SEC (24.5-34.5) Lipid panel Test 05/07/25 18:25 05/07/25 21:36 Lipase 23 U/L (12-53) Cholesterol Level 105 mg/dL (< 200) HDL Cholesterol 48 mg/dL (40-59) Triglycerides Level 337 mg/dL (< 150) H Cardiac Markers Test 05/07/25 18:25 B-Type Natriuretic Peptide 158.40 pg/mL (0-100) LFT Test 05/07/25 18:25 05/08/25 04:15 Alanine Aminotransferase (ALT) 24 U/L (7-40) 23 U/L (7-40) Alkaline Phosphatase 579 U/L (46-116) H 573 U/L (46-116) H Aspartate Amino Transferase (AST) 48 U/L (13-40) H 24 U/L (13-40) Total Bilirubin < 0.2 mg/dL (0.2-1.0) L < 0.2 mg/dL (0.2-1.0) L HgA1c, TSH Test 05/07/25 18:25 05/07/25 21:36 Hemoglobin A1c 11.4 % A1C (<5.7) H Thyroid Stimulating Hormone (TSH) 7.19 uIU/mL (0.55-4.78) H Urinalysis Test 05/08/25 00:20 Urine Color Colorless (Yellow) Urine Clarity Clear (Clear) Urine pH 5.5 (5.0-9.0) Urine Specific [place] 1.010 (1.001-1.035) Urine Protein Trace (Negative) H Urine Ketones Negative (Negative) Urine Blood 2+ /uL (Negative) H Urine Nitrite Negative (Negative) Urine Bilirubin Negative (Negative) Urine Urobilinogen Normal mg/dL (Negative) Urine Leukocyte Esterase 2+ /uL (Negative) Urine RBC 12 /hpf (0 - 3) Urine Microscopic WBC 118 /HPF (0-3) H Urine Squamous Epithelial Cells None seen /hpf (<5) Urine Bacteria None seen /hpf (None Seen) Urine Glucose 4+ mg/dL (Normal) H Blood Gas Results Test 05/07/25 20:04 05/08/25 07:50 Arterial Blood pH 7.322 (7.350-7.450) 7.320 (7.350-7.450) FiO2 % 21.0 21.0 Labs and/or images reviewed: Labs reviewed by me, Image(s) reviewed by me Assessment/Plan Assessment/Plan 45-year-old male patient who presents to ER via EMS with complaint of altered mental status associated with hyperglycemia (over 600 mg/deciliters, measured by caregiver), nausea and chronic epigastric pain, prompting calling 911. Patient has not been compliant with medication. Patient is a poor historian, due to clinical status could not obtain rest of review of systems. Past medical history: Hyper tension, Diabetes type 1insulin-dependent, noncompliant with medication, multiple admissions due to DKA (most recent one less than 1 month ago) required previous ET intubation due to altered mental status, gastroparesis, severe malnutrition, completed endoscopy and evidence of sliding hernia and erosive esophagitis, nonocclusive DVT in left internal jugular on Eliquis, multiple sacral wounds present on admission, possible angioedema, normocytic anemia. 05/08: Here for [facility], does not have a metal expediter for diabetes, he is type 1 diabetic. Multiple morbidities, admissions, still declines to go to metal expediter for father. In the see GM with insulin pump to prevent recurrent admissions to improve survival. Currently patient was on HS, resolving. He also has hypothermia, getting bear hugger. Continuing antibiotics for wounds, sacral wound and heel wound pressure ulcers wound care consulted continuing antibiotic meropenem. - patient hypotensive in p.m., nonresponsive to fluid bolus, start Levophed. Blood culture Gram-negative rods, insert Owens and collect urine culture to find source. # Metabolic encephalopathy - Secondary to DKA - Completed head CT ruling out intracranial acute pathology # Diabetic ketoacidosis -resolved - Required IV insulin. Currently with subcutaneous insulin - Responded to IV fluid # Ruled out sepsis - Mild tachycardia - Expectant antibiotic treatment. Probable cause of DKA is noncompliance of medication - Ordered blood culture, negative at the moment - Urine analysis negative for probable infection/inflammation. Presents glucosuria # Erosive esophagitis - Continue with pantoprazole IV twice daily. On Famotidine - Avoid NSAIDs. Recommend Tylenol for pain. Avoid opioids due to reduced motility of the GI tract. # RADHA due to VMN - Secondary to diabetic ketoacidosis - Have responded to IV fluid # Diabetes mellitus type 1 - Uncontrolled (hemoglobin A1c: 12) - Currently on insulin sliding scale - Gave advised on healthy lifestyle habits # Noncompliance - Patient is noncompliant with insulin therapy, because of DKA in this admission - Have ordered social worker consult to evaluate patient's safety, discharge with home health # Cachexia - Secondary to anorexia due to intolerance of feedings symptomatic by abdominal pain and nausea - Have ruled out previously gastroparesis - Will continue TPN. Risk and benefits of prolonged TPN have been explained, including infection and eventual endocarditis # Microcytic anemia - Control on lab - Probably secondary micronutrient deficiency due to food intake intolerance # Marijuana abuse - Gave advice on healthy lifestyle- Goals of care discussed with patient for over 18 minutes: Full CODE STATUS Plan discussed with: Patient Date of Service: May 08, 2025 Billing Provider: BHAVANA HERNANDEZ MD Common Visit Codes: [id number] CARE 30-74 MIN BHAVANA HERNANDEZ MD May 08, 2025 13:15
[2025-05-08] MEDS: VANCOMYCIN 750MG KIT 100 ML IV SCH (13:21)
[2025-05-08] MEDS: InsuLIN REG 1unit/0.01ml Soln (100units/ml) SC SCH (16:00)
[2025-05-08] MEDS: ACCU-CHEK COMFORT CURVE STRIP VI SCH (16:07)
[2025-05-08] MEDS: D5W/SOD CHL 0.45% 1,000 ML IV SCH (16:15)
[2025-05-08] MEDS: ENOXAPARIN SOD 40 MG/0.4 ML SYRINGE SC SCH (20:18)
[2025-05-08] MEDS: HYDROmorphone HCL 2 MG/ML VL/or syr IV PRN (20:37)
[2025-05-08 21:18] LABS: Potassium 3.8 mmol/L (3.5-5.1); Sodium 139 mmol/L (136-145)
[2025-05-08 21:19] LABS: Anion Gap 8 (5-15)
[2025-05-08 21:24] LABS: BUN/Creatinine Ratio 12.5 (10.0-20.0); Blood Urea Nitrogen 11 mg/dL (9-23)
[2025-05-08 21:47] LABS: Calcium 6.5 mg/dL (8.7-10.4); Carbon Dioxide 19 mmol/L (20-31); Chloride 112 mmol/L (98-107); Glucose 107 mg/dL (74-106)
[2025-05-09] VITALS (38 sets, daily range): BP systolic 81–140; BP diastolic 54–96; PULSE 90–106; RESP 6–12; TEMP 95.5–97.7; O2SAT 97–100
[2025-05-09 01:03] LABS: Potassium 3.9 mmol/L (3.5-5.1); Sodium 138 mmol/L (136-145)
[2025-05-09 01:04] LABS: Anion Gap 6 (5-15)
[2025-05-09 01:09] LABS: BUN/Creatinine Ratio 13.8 (10.0-20.0); Blood Urea Nitrogen 12 mg/dL (9-23)
[2025-05-09 01:40] LABS: Calcium 6.4 mg/dL (8.7-10.4); Carbon Dioxide 20 mmol/L (20-31); Chloride 112 mmol/L (98-107)
[2025-05-09 01:41] LABS: Glucose 47 mg/dL (74-106)
[2025-05-09] MEDS ORDERED: HYDR-4072 (01:49)
[2025-05-09] MEDS ORDERED: AMLO1TAB22 PO (01:49)
[2025-05-09 05:38] LABS: Hematocrit 30.0 % (41.0-53.0); Hemoglobin 9.6 g/dL (13.5-17.5); Mean Corpuscular Hemoglobin 27.6 pg (28.0-32.0); Mean Corpuscular Volume 86.1 fL (80.0-100.0)
[2025-05-09 05:51] LABS: Alanine Aminotransferase 21 U/L (7-40); Anion Gap 10 (5-15); BUN/Creatinine Ratio 10.3 (10.0-20.0); Blood Urea Nitrogen 10 mg/dL (9-23); Potassium 3.8 mmol/L (3.5-5.1); Sodium 139 mmol/L (136-145)
[2025-05-09 06:01] LABS: Albumin 1.7 g/dL (3.2-4.8); Alkaline Phosphatase 502 U/L (46-116); Bilirubin, Total < 0.2 mg/dL (0.2-1.0); Calcium 6.4 mg/dL (8.7-10.4); Carbon Dioxide 18 mmol/L (20-31); Chloride 111 mmol/L (98-107); Glucose 52 mg/dL (74-106); Total Protein 4.5 g/dL (5.7-8.2)
[2025-05-09 06:45] LABS: Total Cells Counted 100.0 (100)
--- NOTE | 2025-05-09 10:10 | DVHPN2 ---
Reviewed: H&P Changes from previous H/P or p: No Changes General: Per HPI Objective Vitals Vital Signs Date Time Temp Pulse Resp B/P (MAP) Pulse Ox O2 Delivery O2 Flow Rate FiO2 05/09/25 08:16 101 05/09/25 08:00 8 100 Room Air* 0 21 05/09/25 07:00 96.1 106/77 (87) 205.0 Intake/Output Intake and Output 05/09/25 07:00 Intake Total 2165 ml Output Total 500 ml Balance 1665 ml Intake IV Total 2165 ml Output Urine Total 500 ml # Voids 2 Exam General: Lucid, cachectic, unkempt, afebrile, mucosae are moist Cardiovascular: Normal S1 and S2. No murmurs, gallops or rubs Respiratory: Normal ventilation mechanics. Clear lung sounds on auscultation Abdomen: Soft, epigastric pain with superficial palpation rest of abdomen is nontender, no organomegaly, normal bowel sounds MSK/skin: Mobilizes 4 limbs. Presents yellow crust and lower limbs, rest of skin is dry and warm Neurological: Oriented in 3 spheres. No motor no sensitive deficits. Pupils are isocoric and reactive Medications Current Medications Medications Dose Ordered Sig/Zaria Route Start Time Stop Time Status Last Admin Dose Admin Acetaminophen 325 mg Q4HP PRN PO 05/07/25 22:30 Ondansetron HCl 4 mg Q4HP PRN IV 05/07/25 22:30 Insulin Glargine 15 units DAILY SC 05/08/25 10:00 05/08/25 09:43 15 UNITS Hydromorphone HCl 0.25 mg Q4HPRN PRN IV 05/07/25 22:30 05/09/25 05:23 0.25 MG Vancomycin HCl 0 ml @ 0 mls/hr UD IV 05/07/25 22:30 Pantoprazole Sodium 40 mg BID IV 05/08/25 10:00 05/09/25 09:29 40 MG Meropenem 50 ml @ 17 mls/hr Q8H IV 05/08/25 14:00 05/09/25 04:52 17 MLS/HR Vancomycin HCl 100 ml @ 100 mls/hr Q12H IV 05/08/25 13:00 05/09/25 00:49 100 MLS/HR Diagnostic Test (Pha) 1 strip IQ4HR 05/08/25 16:00 05/09/25 08:29 1 STRIP Insulin Human Regular IQ4HR SC 05/08/25 16:00 Dextrose 50 ml UD PRN IV 05/08/25 14:00 05/09/25 08:28 50 ML Dextrose/Sodium Chloride 1,000 ml @ 80 mls/hr [id number] IV 05/08/25 16:15 05/09/25 05:41 80 MLS/HR Enoxaparin Sodium 40 mg Q12HR SC 05/08/25 22:00 05/09/25 09:30 40 MG Laboratory Results Laboratory Tests 05/09/25 04:55 Chemistry Test 05/08/25 11:52 05/08/25 20:55 05/09/25 00:41 05/09/25 04:55 Calcium Level 6.7 mg/dL (8.7-10.4) L 6.5 mg/dL (8.7-10.4) L 6.4 mg/dL (8.7-10.4) L 6.4 mg/dL (8.7-10.4) L Albumin 1.7 g/dL (3.2-4.8) L Total Protein 4.5 g/dL (5.7-8.2) L LFT Test 05/09/25 04:55 Alanine Aminotransferase (ALT) 21 U/L (7-40) Alkaline Phosphatase 502 U/L (46-116) H Aspartate Amino Transferase (AST) 32 U/L (13-40) Total Bilirubin < 0.2 mg/dL (0.2-1.0) L Urinalysis Test 05/08/25 00:20 Urine Color Colorless (Yellow) Urine Clarity Clear (Clear) Urine pH 5.5 (5.0-9.0) Urine Specific [place] 1.010 (1.001-1.035) Urine Protein Trace (Negative) H Urine Ketones Negative (Negative) Urine Blood 2+ /uL (Negative) H Urine Nitrite Negative (Negative) Urine Bilirubin Negative (Negative) Urine Urobilinogen Normal mg/dL (Negative) Urine Leukocyte Esterase 2+ /uL (Negative) Urine RBC 12 /hpf (0 - 3) Urine Microscopic WBC 118 /HPF (0-3) H Urine Squamous Epithelial Cells None seen /hpf (<5) Urine Bacteria None seen /hpf (None Seen) Urine Glucose 4+ mg/dL (Normal) H Microbiology Microbiology Date/Time Source Procedure Growth Status 05/08/25 06:20 Thigh Gram Stain Pending Resulted 05/08/25 06:20 Thigh Wound Culture - Preliminary Resulted 05/07/25 18:25 Blood Blood Culture - Preliminary NO GROWTH AFTER 24 HOURS OF INCUBATION. Resulted Labs and/or images reviewed: Labs reviewed by me, Image(s) reviewed by me Assessment/Plan Assessment/Plan 45-year-old male patient who presents to ER via EMS with complaint of altered mental status associated with hyperglycemia (over 600 mg/deciliters, measured by caregiver), nausea and chronic epigastric pain, prompting calling 911. Patient has not been compliant with medication. Patient is a poor historian, due to clinical status could not obtain rest of review of systems. Past medical history: Hyper tension, Diabetes type 1insulin-dependent, noncompliant with medication, multiple admissions due to DKA (most recent one less than 1 month ago) required previous ET intubation due to altered mental status, gastroparesis, severe malnutrition, completed endoscopy and evidence of sliding hernia and erosive esophagitis, nonocclusive DVT in left internal jugular on Eliquis, multiple sacral wounds present on admission, possible angioedema, normocytic anemia. 05/08: Here for [facility], does not have a framing carpenter for diabetes, he is type 1 diabetic. Multiple morbidities, admissions, still declines to go to framing carpenter for father. In the see GM with insulin pump to prevent recurrent admissions to improve survival. Currently patient was on HS, resolving. He also has hypothermia, getting bear hugger. Continuing antibiotics for wounds, sacral wound and heel wound pressure ulcers wound care consulted continuing antibiotic meropenem. - patient hypotensive in p.m., nonresponsive to fluid bolus, start Levophed. Blood culture Gram-negative rods, insert Owens and collect urine culture to find source. 05/09: HHS resolved, now hypoglycemia. Holding insulin. We will consult endocrinology. Patient is on D5 half-normal we will continue q.2h HX until we get optimal D5 half-normal to keep blood glucose > 80. Patient to start diet today full liquid diet.. Continue other medications. Continuing IV antibiotics, pending urine culture. Patient has whole-body swelling allergy to penicillins, we will add cefepime. # Metabolic encephalopathy - Secondary to DKA - Completed head CT ruling out intracranial acute pathology # Diabetic ketoacidosis -resolved - Required IV insulin. Currently with subcutaneous insulin - Responded to IV fluid # Ruled out sepsis - Mild tachycardia - Expectant antibiotic treatment. Probable cause of DKA is noncompliance of medication - Ordered blood culture, negative at the moment - Urine analysis negative for probable infection/inflammation. Presents glucosuria # Erosive esophagitis - Continue with pantoprazole IV twice daily. On Famotidine - Avoid NSAIDs. Recommend Tylenol for pain. Avoid opioids due to reduced motility of the GI tract. # RADHA due to VMN - Secondary to diabetic ketoacidosis - Have responded to IV fluid # Diabetes mellitus type 1 - Uncontrolled (hemoglobin A1c: 12) - Currently on insulin sliding scale - Gave advised on healthy lifestyle habits # Noncompliance - Patient is noncompliant with insulin therapy, because of DKA in this admission - Have ordered social media campaign manager consult to evaluate patient's safety, discharge with home health # Cachexia - Secondary to anorexia due to intolerance of feedings symptomatic by abdominal pain and nausea - Have ruled out previously gastroparesis - Will continue TPN. Risk and benefits of prolonged TPN have been explained, including infection and eventual endocarditis # Microcytic anemia - Control on lab - Probably secondary micronutrient deficiency due to food intake intolerance # Marijuana abuse - Gave advice on healthy lifestyle- Goals of care discussed with patient for over 18 minutes: Full CODE STATUS Plan discussed with: Patient My Orders Orders - BHAVANA HERNANDEZ MD Procedure Category Date Status Time Glucose Blood PHA 05/08/25 In Process (Accu-Chek Comfort 16:00 Insulin R (Human) PHA 05/08/25 In Process (Insulin R) 16:00 Dextrose 50% Syringe PHA 05/08/25 In Process 14:00 D5w/Sod Chl 0.45% PHA 05/08/25 In Process (D5w 1/2ns) 16:15 Pharmacy [facility] 05/08/25 In Process Clarification: 16:58 * Sheet Ironworker CONS 05/09/25 Transmitted Consult 02:28 * Endocrinology CONS 05/09/25 Transmitted Consult 10:03 Date of Service: May 09, 2025 Billing Provider: BHAVANA HERNANDEZ MD Common Visit Codes: [id number] CARE 30-74 MIN BHAVANA HERNANDEZ MD May 09, 2025 10:10
[2025-05-09] MEDS: ACCU-CHEK COMFORT CURVE STRIP VI SCH (10:30)
--- NOTE | 2025-05-09 12:42 | DVHINCON2 ---
Date of service: May 09, [address] Brothers Reason for Consultation Hypoglycemia with diabetes mellitus type 1 History of Present Illness Patient is 45 year old male with past medical history of diabetes mellitus type 1 who brought to the hospital with a chief, altered mental status likely related to severe hyperglycemia, undetectable sugar level greater than 600 mcg/dL, assured with abdominal pain, loss of appetite. As per patient and his father, patient has been recently hospitalized in [facility], was discharge d home with home health, with Lantus 6 units once daily and lispro sliding scale. However still patient had of in the hospital again. As per patient he is not compliant with taking his Lantus and lispro, as per father patient was taken lispro as needed, was not taking Lantus at all. Noncompliant with diet as well, patient is aggressively losing weight, not able to ambulate even multiple sore ulcers as well. At the time of evaluation there is no other complaint, patient is on dextrose 5% half NS at 80 mL/hour, heating measures, last blood sugar anticoagulation 44, given 1 amp of D5 50%. No any other new complaints. Past medical history: Multiple hypoglycemia episode with diabetes mellitus type 1 on insulin dependent, Hyper tension,gastroparesis, severe malnutrition, sliding hernia and erosive esophagitis, nonocclusive DVT in left internal jugular on Eliquis, multiple sacral wounds present on admission, possible angioedema, normocytic anemia. Surgical history: Multiple endoscopies, placement of PICC line for TPN Family history: Noncontributory Social history: Lives alone in a trailer, does not get along with family members. Smokes marijuana, denies tobacco, alcohol and other drug abuse. Allergies: Denies Home medication: Pantoprazole 40 mg p.o. daily, melatonin 3 mg p.o. daily, Lantus 6 units q.h.s., metoprolol 25 mg p.o. b.i.d., amlodipine 5 mg p.o. daily [place] 5 q.6h as needed insulin lispro sliding scale. Past Medical History As per HPI Past Surgical History As per HPI Family History: Alzheimer's disease Grandparent Arthritis G8 MOTHER Diabetes mellitus FH: kidney disease G8 FATHER Hypertension G8 MOTHER G8 FATHER Family History As per Social History As per HPI Allergies: Coded Allergies: Penicillins (Verified Adverse Reaction, Severe, ANAPHYLAXIS , 6/18/25) Piperacillin (Verified Adverse Reaction, Severe, ANAPHYLAXIS , 01/08/25) Tazobactam (Verified Adverse Reaction, Severe, ANAPHYLAXIS , 01/08/25) Home Meds Active Scripts Apixaban Base (ELIQUIS) 5 Mg Tab, 5 MG PO BID for 30 Days, #60 TAB 2 Refills Prov:AKIN TIMMONS RESDIENT 04/17/25 Ursodiol (Ursodiol) 300 Mg Cap, 300 MG PO BID for 30 Days, #60 CAP Prov:ANABELL ORDOÑEZ [facility] 02/13/25 Spironolactone (Aldactone) 25 Mg Tab, 25 MG PO DAILY for 30 Days, #30 TAB 2 Refills Prov:ANABELL ORDOÑEZ [facility] 02/13/25 Nutritional Supplements (ENSURE CLEAR) Bbry/Pom Liq, 240 ML PO TIDWM for 30 Days, #90 LIQ Prov:ANABELL ORDOÑEZ [facility] 02/13/25 Metoprolol Tartrate (Lopressor) 25 Mg Tb, 25 MG PO BID for 30 Days, #60 TAB Prov:ANABELL ORDOÑEZ [facility] 02/13/25 Insulin Regular (Human) (Novolin R) 100 Unit/Ml Inj, 0 UNITS SC IQ4HR for 30 Days, #1 INJ 3 Refills Blood Glucose (mg/dL)Insulin Regular Dose = 70 Treat hypoglycemia per protocol 71-119No additional insulin 120-150 2 units 151-200 4 units 201-250 6 units 251-300 8 units 301-350 10 units > 351 12 units Prov:ANABELL ORDOÑEZ [facility] 02/13/25 Furosemide (Furosemide) 40 Mg Tab, 40 MG PO DAILY for 30 Days, #30 TAB 2 Refills Prov:ANAEBLL ORDOÑEZ [facility] 02/13/25 Metoclopramide Hcl (Reglan) 5 Mg Tab, 5 MG PO TID for 14 Days, #42 TAB Prov:YOANANGA SIGALA [facility] 12/06/24 Pantoprazole Sodium Sesquihydr (Pantoprazole Sodium) 40 Mg Tab, 40 MG PO DAILY@0600 for 30 Days, #30 TAB Prov:NGA GARCIA RESIDENT 12/06/24 Reported Medications Amlodipine Besylate (Amlodipine Besylate) 5 Mg Tab, 1 TAB PO DAILY 05/09/25 Hydrocodone-Acetaminophen (Hydrocodone/Acetaminophen 10-325 mg) 1 Tab Tab 05/09/25 Current Medications Current Medications Medications (Trade) Dose Ordered Sig/Zaria Route PRN Reason Start Time Stop Time Status Last Admin Meropenem 50 ml @ 17 mls/hr Q8H IV 05/08/25 14:00 05/09/25 04:52 Vancomycin HCl 100 ml @ 100 mls/hr Q12H IV 05/08/25 13:00 05/09/25 00:49 Diagnostic Test (Pha) (Accu-Chek Comfort Curve T) 1 strip IQ4HR 05/08/25 16:00 05/09/25 10:20 DC 05/09/25 08:29 Insulin Human Regular (InsuLIN R) IQ4HR SC 05/08/25 16:00 Dextrose 50 ml UD PRN IV Blood Sugar LESS THAN 60 05/08/25 14:00 05/09/25 12:05 Dextrose/Sodium Chloride 1,000 ml @ 80 mls/hr [id number] IV 05/08/25 16:15 05/09/25 05:41 Enoxaparin Sodium (Lovenox) 40 mg Q12HR SC 05/08/25 22:00 05/09/25 09:30 Cefepime HCl 50 ml @ 12.5 mls/hr Q8HR IV 05/09/25 14:00 Diagnostic Test (Pha) (Accu-Chek Comfort Curve T) 1 strip Q2HR 05/09/25 10:30 05/09/25 12:01 Ergocalciferol (Vitamin D 50,000 Unit) 50,000 unit Q7D PO 05/09/25 12:15 Review of Systems Review of systems Patient is complaining of loss of appetite, epigastric burning pain. Chronic pain over bilateral hip, knee and knees. Patient denying any other complaints or any chest pain, shortness of breath, motor weakness, sensory deficits, any other symptom. Vital Signs Vital Signs Date Time Temp Pulse Resp B/P (MAP) Pulse Ox O2 Delivery O2 Flow Rate FiO2 05/09/25 11:30 95.5 91 6 99/72 (81) 99 203.9 05/09/25 08:00 Room Air* 0 21 Physical Exam General Appearance: Malnourished. Head Exam: Normal inspection Neck Exam: Normal inspection. Non-tender. Normal alignment Pulmonary/Respiratory: Chest non-tender. Clear bilateral breath sounds, no crackles, no wheezing. Cardiovascular/Chest: Regular rate and rhythm. No murmurs. No JVD. Peripheral Pulses: 2+ Radial (R). 2+ Radial (L). 2+ Pedal (R). 2+ Pedal (L) Abdominal Exam: Normal bowel sounds. Soft. normal abdomen, no visible veins, Nontender. No hepatospenomegaly. No masses Ankle Exam: Negative ankle edema Lower extremities: Multiple sacral on, 1 son , wounds on bilateral heels. Present on admission. Neuro/Mental Status: A&O x4. Coherent. Labs/Diagnostic Data Labs Test 05/09/25 11:56 05/09/25 11:48 05/09/25 04:55 05/08/25 07:50 Range/Units POC Glucose 44 *L 70-106 mg/dl Vancomycin Level Trough 34.9 *H 5-10 ug/mL White Blood Count 6.2 4.4-10.8 10^3/uL Red Blood Count 3.49 L 4.5-5.90 10^6/uL Hemoglobin 9.6 L 13.5-17.5 g/dL Hematocrit 30.0 L 41.0-53.0 % Mean Corpuscular Volume 86.1 80.0-100.0 fL Mean Corpuscular Hemoglobin 27.6 L 28.0-32.0 pg Mean Corpuscular Hemoglobin Concent 32.1 32.0-36.0 g/dL Red Cell Distribution Width 16.8 H 11.8-14.3 % Platelet Count 201 140-450 10^3/uL Mean Platelet Volume 6.6 L 6.9-10.8 fL Neutrophils (%) (Auto) 37.0-80.0 % Lymphocytes (%) (Auto) 10.0-50.0 % Monocytes (%) (Auto) 0.0-12.0 % Basophils (%) (Auto) 0.0-2.0 % Neutrophils # (Auto) 1.6-8.6 10 ^3/uL Lymphocytes # (Auto) 0.4-5.4 10 ^3/uL Monocytes # (Auto) 0-1.3 10 ^3/uL Differential Total Cells Counted 100.0 100 Neutrophils % (Manual) 31 L 37.0-80.0 Band Neutrophils % (Manual) 0 Lymphocytes % (Manual) 60 H 10.0-50.0 Monocytes % (Manual) 7 0-12 Eosinophils % (Manual) 2 0-7 Basophils % (Manual) 0 0.0-2.0 Metamyelocytes % (manual) 0 Myelocytes % (Manual) 0 Promyelocytes % (Manual) 0 Blast Cells % (Manual) 0 Reactive Lymphocytes 0 Platelet Estimate Adequate Sodium Level 139 136-145 mmol/L Potassium Level 3.8 3.5-5.1 mmol/L Chloride Level 111 H 98-107 mmol/L Carbon Dioxide Level 18 L 20-31 mmol/L Anion Gap 10 5-15 Blood Urea Nitrogen 10 9-23 mg/dL Creatinine 0.97 0.700-1.30 mg/dL Glomerular Filtration Rate Calc 98 >90 mL/min BUN/Creatinine Ratio 10.3 10.0-20.0 Serum Glucose 52 L 74-106 mg/dL Calcium Level 6.4 L 8.7-10.4 mg/dL Total Bilirubin < 0.2 L 0.2-1.0 mg/dL Aspartate Amino Transferase (AST) 32 13-40 U/L Alanine Aminotransferase (ALT) 21 7-40 U/L Alkaline Phosphatase 502 H 46-116 U/L Total Protein 4.5 L 5.7-8.2 g/dL Albumin 1.7 L 3.2-4.8 g/dL Blood Gas Specimen Type Arterial Blood Gas Sample Site Left radial Blood Gas Patient Temperature 37.0 Arterial Blood Date Drawn [id number] Arterial Blood pH 7.320 L 7.350-7.450 Arterial Blood Partial Pressure CO2 30.6 L 35.0-48.0 mmHg Arterial Blood Partial Pressure O2 107.1 83.0-108.0 mmHg Arterial Blood HCO3 15.4 L 21.0-28.0 mmol/L Arterial Blood Oxygen Saturation 97.2 94.0-98.0 % Arterial Blood Base Excess -9.6 L -2.0-3.0 mmol/L Arterial Blood Oxyhemoglobin 96.5 94.0-98.0 % Arterial Blood Carboxyhemoglobin 0.3 L 0.5-1.5 % Arterial Blood Methemoglobin 0.4 0.0-1.5 % Kyle Test Yes Blood Gas Total Hemoglobin 8.90 L 13.5-17.5 g/dL Blood Gas Modality Room air FiO2 % 21.0 Test 05/08/25 04:15 05/08/25 00:20 05/07/25 23:25 05/07/25 21:36 Range/Units Eosinophils (%) (Auto) 1.5 0.0-7.0 % Eosinophils # (Auto) 0.1 0-0.8 10 ^3/uL Basophils # (Auto) 0 0-0.2 10 ^3/uL Nucleated Red Blood Cells 0.1 % Serum Osmolality 304 H 278-298 mOsm/kg Phosphorus Level 1.9 L 2.4-5.1 mg/dL Magnesium Level 1.8 1.6-2.6 mg/dL Urine Color Colorless Yellow Urine Clarity Clear Clear Urine pH 5.5 5.0-9.0 Urine Specific [place] 1.010 1.001-1.035 Urine Protein Trace H Negative Urine Ketones Negative Negative Urine Blood 2+ H Negative /uL Urine Nitrite Negative Negative Urine Bilirubin Negative Negative Urine Urobilinogen Normal Negative mg/dL Urine Leukocyte Esterase 2+ Negative /uL Urine RBC 12 0 - 3 /hpf Urine Microscopic WBC 118 H 0-3 /HPF Urine Squamous Epithelial Cells None seen <5 /hpf Urine Bacteria None seen None Seen /hpf Urine Glucose 4+ H Normal mg/dL Urine Opiates Screen Neg NEGATIVE Urine Fentanyl Screen Neg NEGATIVE Urine Barbiturates Screen Neg NEGATIVE Urine Phencyclidine Screen Neg NEGATIVE Urine Amphetamines Screen Neg NEGATIVE Urine Benzodiazepines Screen Neg NEGATIVE Urine Cocaine Screen Neg NEGATIVE Urine Cannabinoids Screen Pos NEGATIVE Prothrombin Time 11.9 H 9.3-11.8 sec Prothrombin Time INR 1.14 0.9-1.15 Activated Partial Thromboplast Time 29.3 24.5-34.5 SEC Ammonia 22 11-32 umol/L Troponin I High Sensitivity < 3 L </=54 ng/L Triglycerides Level 337 H < 150 mg/dL Cholesterol Level 105 < 200 mg/dL LDL Cholesterol 16 < 100 mg/dL HDL Cholesterol 48 40-59 mg/dL Thyroid Stimulating Hormone (TSH) 7.19 H 0.55-4.78 uIU/mL Test 05/07/25 18:55 05/07/25 18:25 Range/Units Influenza Type A Antigen Negative Negative Influenza Type B Antigen Negative Negative SARS-CoV-2 Antigen (Rapid) Negative NEGATIVE D-Dimer, Quantitative 1.17 H 0.0-0.49 mg/L FEU Hemoglobin A1c 11.4 H <5.7 % A1C Lactic Acid Level 1.1 0.4-2.0 mmol/L B-Type Natriuretic Peptide 158.40 0-100 pg/mL Lipase 23 12-53 U/L Vitamin B12 Level 1993 211-911 pg/mL Vitamin D 25-Hydroxy 8.9 L 30.0-100 ng/mL Microbiology Date/Time Source Procedure Growth Status 05/08/25 06:20 Thigh Gram Stain Pending Resulted 05/08/25 06:20 Thigh Wound Culture - Preliminary Resulted 05/08/25 00:20 Voided Urine Urine Culture - Preliminary Resulted 05/07/25 18:25 Blood Blood Culture - Preliminary NO GROWTH AFTER 24 HOURS OF INCUBATION. Resulted Assessment Hypoglycemia likely due to insulin administration Hyperglycemic hyperosmolar state Uncontrolled diabetes mellitus type 1 HB A1c 11.4% Acute metabolic encephalopathy related to HHS Severe protein malnutrition Sacral ulcer bilateral thigh and heel ulcers Hypocalcemia , elevated alkaline phosphatase, low albumin likely related to severe protein malnutrition Cachexia Bacteremia UTI Vitamin-D deficiency Noncompliant Loss of appetite Plan/recommendation -Increase rate of IV fluid 150 mL/hour of D5 half NS -Prn D5 50 for hypoglycemia, target greater than 60 mg/dL -Hold IV/subQ insulin, we will resume once he is medically stable. -Accu-Chek q.2 hourly -Diabetic diet -Dietary consultation -Vitamin-D 2 87186 IU once weekly -IV antibiotic as per primary care team -PUD prophylaxis Protonix -DVT prophylaxis with enoxaparin -We will continue monitoring this patient. Plan discussed with Dr. Engle Plan discussed with: Patient, Other (Father and RN) MEGHANA BAUGH RESIDENT May 09, 2025 12:42
[2025-05-09] MEDS: D5W/SOD CHL 0.45% 1,000 ML IV SCH (12:45)
[2025-05-09 14:31] LABS: Free T3 1.81 pg/mL (2.3-4.2); Free T4 (Free Thyroxine) 0.93 ng/dL (0.89-1.76)
--- NOTE | 2025-05-09 14:43 | DVHINCON2 ---
Date of service: May 09, 2025 History of Present Illness 45-year-old male with a history of type 1 diabetes mellitus, protein calorie malnutrition, vitamin D deficiency, autonomic dysfunction, limited mobility co mplicated by multiple sacral and heel wounds who presented to the hospital with altered mental status in setting of hyperglycemia. Upon presentation labs notable for glucose 651, sodium 130, potassium 5.4, creatinine 1.4, alk phos 579. Normal CO2. Normal anion gap. Patient was started on continuous regular insulin infusion along with IV fluids and admitted for further management. Continuous insulin infusion was discontinued on morning of 05/08 and patient was transition to subcutaneous insulin regimen approximately 10 hours for discontinuation. Since 05/08 patient has had recurrent hypoglycemia requiring initiation of continuous dextrose infusion. He has multiple hospitalizations for DKA over the past year also complicated by recurrent hypoglycemia. 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 Past Medical History Problems Medical Problems: (1) [id number] kidney injury Status: Acute (2) Anemia Status: Acute (3) Elevated alkaline phosphatase level Status: Acute (4) Elevated d-dimer Status: Acute (5) Failure to thrive Status: Acute (6) Hyperglycemia due to diabetes mellitus Status: Acute (7) Hyponatremia Status: Acute (8) Pneumonia Status: Acute Family History: Alzheimer's disease Grandparent Arthritis G8 MOTHER Diabetes mellitus FH: kidney disease G8 FATHER Hypertension G8 MOTHER G8 FATHER Allergies: Coded Allergies: Penicillins (Verified Adverse Reaction, Severe, ANAPHYLAXIS , 01/08/25) Piperacillin (Verified Adverse Reaction, Severe, ANAPHYLAXIS , 01/08/25) Tazobactam (Verified Adverse Reaction, Severe, ANAPHYLAXIS , 01/08/25) Home Meds Active Scripts Apixaban Base (ELIQUIS) 5 Mg Tab, 5 MG PO BID for 30 Days, #60 TAB 2 Refills Prov:AKIN TIMMONS RESDIENT 04/17/25 Ursodiol (Ursodiol) 300 Mg Cap, 300 MG PO BID for 30 Days, #60 CAP Prov:ANABELL ORDOÑEZ RESIDENT 02/13/25 Spironolactone (Aldactone) 25 Mg Tab, 25 MG PO DAILY for 30 Days, #30 TAB 2 Refills Prov:ANABELL ORDOÑEZ RESIDENT 02/13/25 Nutritional Supplements (ENSURE CLEAR) Bbry/Pom Liq, 240 ML PO TIDWM for 30 Days, #90 LIQ Prov:ANABELL ORDOÑEZ RESIDENT 02/13/25 Metoprolol Tartrate (Lopressor) 25 Mg Tb, 25 MG PO BID for 30 Days, #60 TAB Prov:ANABELL ORDOÑEZ RESIDENT 02/13/25 Insulin Regular (Human) (Novolin R) 100 Unit/Ml Inj, 0 UNITS SC IQ4HR for 30 Days, #1 INJ 3 Refills Blood Glucose (mg/dL)Insulin Regular Dose = 70 Treat hypoglycemia per protocol 71-119No additional insulin 120-150 2 units 151-200 4 units 201-250 6 units 251-300 8 units 301-350 10 units > 351 12 units Prov:ANABELL ORDOÑEZ RESIDENT 02/13/25 Furosemide (Furosemide) 40 Mg Tab, 40 MG PO DAILY for 30 Days, #30 TAB 2 Refills Prov:ANABELL ORDOÑEZ [facility] 02/13/25 Metoclopramide Hcl (Reglan) 5 Mg Tab, 5 MG PO TID for 14 Days, #42 TAB Prov:NGA GARCIA RESIDENT 12/06/24 Pantoprazole Sodium Sesquihydr (Pantoprazole Sodium) 40 Mg Tab, 40 MG PO DAILY@0600 for 30 Days, #30 TAB Prov:YOANAZAKIYANGA RESIDENT 12/06/24 Reported Medications Amlodipine Besylate (Amlodipine Besylate) 5 Mg Tab, 1 TAB PO DAILY 05/09/25 Hydrocodone-Acetaminophen (Hydrocodone/Acetaminophen 10-325 mg) 1 Tab Tab 05/09/25 Current Medications Current Medications Medications (Trade) Dose Ordered Sig/Zaria Route PRN Reason Start Time Stop Time Status Last Admin Diagnostic Test (Pha) (Accu-Chek Comfort Curve T) 1 strip IQ4HR 05/08/25 16:00 05/09/25 10:20 DC 05/09/25 08:29 Insulin Human Regular (InsuLIN R) IQ4HR SC 05/08/25 16:00 05/09/25 13:05 DC Dextrose/Sodium Chloride 1,000 ml @ 80 mls/hr [id number] IV 05/08/25 16:15 05/09/25 13:05 DC 05/09/25 05:41 Enoxaparin Sodium (Lovenox) 40 mg Q12HR SC 05/08/25 22:00 05/09/25 09:30 Cefepime HCl 50 ml @ 12.5 mls/hr Q8HR IV 05/09/25 14:00 Diagnostic Test (Pha) (Accu-Chek Comfort Curve T) 1 strip Q2HR 05/09/25 10:30 05/09/25 14:23 Ergocalciferol (Vitamin D 50,000 Unit) 50,000 unit Q7D PO 05/09/25 12:15 Dextrose/Sodium Chloride 1,000 ml @ 150 mls/hr Q6H40M IV 05/09/25 12:45 05/09/25 14:23 Insulin Human Lispro (HumaLOG) AC SC 05/09/25 17:00 05/09/25 13:28 DC Enteral Nutritional Formula (Ensure High Protein) 240 ml TIDWM PO 05/09/25 18:00 Enteral Nutritional Formula (Bryce Fruit Punch Powder PACKET) 28.8 gm BIDWM PO 05/09/25 18:00 Multivitamins/ Minerals (Mvi W/ Minerals Tablet) 1 tab DAILY PO 05/10/25 10:00 Ascorbic Acid (Vitamin C Tablet) 500 mg BID PO 05/09/25 22:00 Zinc Sulfate 220 mg BID PO 05/09/25 22:00 05/19/25 22:00 Review of Systems Negative except stated in HPI Vital Signs Vital Signs Date Time Temp Pulse Resp B/P (MAP) Pulse Ox O2 Delivery O2 Flow Rate FiO2 05/09/25 13:30 95.9 90 11 138/96 (110) 99 204.6 05/09/25 08:00 Room Air* 0 21 Physical Exam Gen - no acute distress HEENT - no lymphadenopathy CV - RRR, no m/r/g Resp - CTAB Ext - no edema Labs/Diagnostic Data Labs Test 05/09/25 13:49 05/09/25 13:00 05/09/25 11:48 05/09/25 04:55 Range/Units Free Thyroxine (T4) Calculated 0.93 0.89-1.76 ng/dL Free Triiodothyronine (T3) pg/mL 1.81 L 2.3-4.2 pg/mL POC Glucose 109 H 70-106 mg/dl Vancomycin Level Trough 34.9 *H 5-10 ug/mL White Blood Count 6.2 4.4-10.8 10^3/uL Red Blood Count 3.49 L 4.5-5.90 10^6/uL Hemoglobin 9.6 L 13.5-17.5 g/dL Hematocrit 30.0 L 41.0-53.0 % Mean Corpuscular Volume 86.1 80.0-100.0 fL Mean Corpuscular Hemoglobin 27.6 L 28.0-32.0 pg Mean Corpuscular Hemoglobin Concent 32.1 32.0-36.0 g/dL Red Cell Distribution Width 16.8 H 11.8-14.3 % Platelet Count 201 140-450 10^3/uL Mean Platelet Volume 6.6 L 6.9-10.8 fL Neutrophils (%) (Auto) 37.0-80.0 % Lymphocytes (%) (Auto) 10.0-50.0 % Monocytes (%) (Auto) 0.0-12.0 % Basophils (%) (Auto) 0.0-2.0 % Neutrophils # (Auto) 1.6-8.6 10 ^3/uL Lymphocytes # (Auto) 0.4-5.4 10 ^3/uL Monocytes # (Auto) 0-1.3 10 ^3/uL Differential Total Cells Counted 100.0 100 Neutrophils % (Manual) 31 L 37.0-80.0 Band Neutrophils % (Manual) 0 Lymphocytes % (Manual) 60 H 10.0-50.0 Monocytes % (Manual) 7 0-12 Eosinophils % (Manual) 2 0-7 Basophils % (Manual) 0 0.0-2.0 Metamyelocytes % (manual) 0 Myelocytes % (Manual) 0 Promyelocytes % (Manual) 0 Blast Cells % (Manual) 0 Reactive Lymphocytes 0 Platelet Estimate Adequate Sodium Level 139 136-145 mmol/L Potassium Level 3.8 3.5-5.1 mmol/L Chloride Level 111 H 98-107 mmol/L Carbon Dioxide Level 18 L 20-31 mmol/L Anion Gap 10 5-15 Blood Urea Nitrogen 10 9-23 mg/dL Creatinine 0.97 0.700-1.30 mg/dL Glomerular Filtration Rate Calc 98 >90 mL/min BUN/Creatinine Ratio 10.3 10.0-20.0 Serum Glucose 52 L 74-106 mg/dL Calcium Level 6.4 L 8.7-10.4 mg/dL Total Bilirubin < 0.2 L 0.2-1.0 mg/dL Aspartate Amino Transferase (AST) 32 13-40 U/L Alanine Aminotransferase (ALT) 21 7-40 U/L Alkaline Phosphatase 502 H 46-116 U/L Total Protein 4.5 L 5.7-8.2 g/dL Albumin 1.7 L 3.2-4.8 g/dL Beta-Hydroxybutyric Acid 0.062 < 0.4 mmol/L Test 05/08/25 07:50 05/08/25 04:15 05/08/25 00:20 05/07/25 23:25 Range/Units Blood Gas Specimen Type Arterial Blood Gas Sample Site Left radial Blood Gas Patient Temperature 37.0 Arterial Blood Date Drawn [id number] Arterial Blood pH 7.320 L 7.350-7.450 Arterial Blood Partial Pressure CO2 30.6 L 35.0-48.0 mmHg Arterial Blood Partial Pressure O2 107.1 83.0-108.0 mmHg Arterial Blood HCO3 15.4 L 21.0-28.0 mmol/L Arterial Blood Oxygen Saturation 97.2 94.0-98.0 % Arterial Blood Base Excess -9.6 L -2.0-3.0 mmol/L Arterial Blood Oxyhemoglobin 96.5 94.0-98.0 % Arterial Blood Carboxyhemoglobin 0.3 L 0.5-1.5 % Arterial Blood Methemoglobin 0.4 0.0-1.5 % Kyle Test Yes Blood Gas Total Hemoglobin 8.90 L 13.5-17.5 g/dL Blood Gas Modality Room air FiO2 % 21.0 Eosinophils (%) (Auto) 1.5 0.0-7.0 % Eosinophils # (Auto) 0.1 0-0.8 10 ^3/uL Basophils # (Auto) 0 0-0.2 10 ^3/uL Nucleated Red Blood Cells 0.1 % Serum Osmolality 304 H 278-298 mOsm/kg Phosphorus Level 1.9 L 2.4-5.1 mg/dL Magnesium Level 1.8 1.6-2.6 mg/dL Urine Color Colorless Yellow Urine Clarity Clear Clear Urine pH 5.5 5.0-9.0 Urine Specific [place] 1.010 1.001-1.035 Urine Protein Trace H Negative Urine Ketones Negative Negative Urine Blood 2+ H Negative /uL Urine Nitrite Negative Negative Urine Bilirubin Negative Negative Urine Urobilinogen Normal Negative mg/dL Urine Leukocyte Esterase 2+ Negative /uL Urine RBC 12 0 - 3 /hpf Urine Microscopic WBC 118 H 0-3 /HPF Urine Squamous Epithelial Cells None seen <5 /hpf Urine Bacteria None seen None Seen /hpf Urine Glucose 4+ H Normal mg/dL Urine Opiates Screen Neg NEGATIVE Urine Fentanyl Screen Neg NEGATIVE Urine Barbiturates Screen Neg NEGATIVE Urine Phencyclidine Screen Neg NEGATIVE Urine Amphetamines Screen Neg NEGATIVE Urine Benzodiazepines Screen Neg NEGATIVE Urine Cocaine Screen Neg NEGATIVE Urine Cannabinoids Screen Pos NEGATIVE Prothrombin Time 11.9 H 9.3-11.8 sec Prothrombin Time INR 1.14 0.9-1.15 Activated Partial Thromboplast Time 29.3 24.5-34.5 SEC Ammonia 22 11-32 umol/L Test 05/07/25 21:36 05/07/25 18:55 05/07/25 18:25 Range/Units Troponin I High Sensitivity < 3 L </=54 ng/L Triglycerides Level 337 H < 150 mg/dL Cholesterol Level 105 < 200 mg/dL LDL Cholesterol 16 < 100 mg/dL HDL Cholesterol 48 40-59 mg/dL Thyroid Stimulating Hormone (TSH) 7.19 H 0.55-4.78 uIU/mL Influenza Type A Antigen Negative Negative Influenza Type B Antigen Negative Negative SARS-CoV-2 Antigen (Rapid) Negative NEGATIVE D-Dimer, Quantitative 1.17 H 0.0-0.49 mg/L FEU Hemoglobin A1c 11.4 H <5.7 % A1C Lactic Acid Level 1.1 0.4-2.0 mmol/L B-Type Natriuretic Peptide 158.40 0-100 pg/mL Lipase 23 12-53 U/L Vitamin B12 Level 1993 H 211-911 pg/mL Vitamin D 25-Hydroxy 8.9 L 30.0-100 ng/mL Microbiology Date/Time Source Procedure Growth Status 05/08/25 06:20 Thigh Gram Stain Pending Resulted 05/08/25 06:20 Thigh Wound Culture - Preliminary Resulted 05/08/25 00:20 Voided Urine Urine Culture - Preliminary Resulted 05/07/25 18:25 Blood Blood Culture - Preliminary NO GROWTH AFTER 24 HOURS OF INCUBATION. Resulted Assessment 1. Uncontrolled type 1 diabetes mellitus with hyperglycemia 2. Severe protein calorie malnutrition 3. Hypovolemic hyponatremia 4. Prerenal RADHA 5. Erosive esophagitis 6. Cachexia 7. Sepsis Increase D5W to 150 cc/h Hold all insulin pharmacotherapy Recommend dietitian consultation Continue empiric antibiotic therapy Hypoglycemia protocol Monitor blood glucose every 4 hours Plan discussed with: Patient WINTER MELO MD May 09, 2025 14:43
[2025-05-09] MEDS: ERGOCALCIFEROL 50,000 UNIT(1.25MG) CAP PO SCH (15:41)
[2025-05-09] MEDS: CEFEPIME 1GM/50ML 50 ML IV SCH (15:41)
--- NOTE | 2025-05-09 15:46 | MEDREC ---
[facility] ASP Intervention Section I [facility] ASP Intervention: Review courses of therapy (Nose shows MRSA positive - consider add bactroban ointment apply to both nares bid for 5 days) DONG De La Cruz May 09, 2025 15:46
[2025-05-09] MEDS ORDERED: INSULIN LISPRO (HUMAN) 100 UNITS/ML ML SC SCH (17:00)
[2025-05-09] MEDS: Juven Fruit Punch Powder PACKET 28.8gm PO SCH (18:21)
[2025-05-09] MEDS: Ensure HIGH Protein Chocolate 8oz Bottle PO SCH (18:21)
[2025-05-09] MEDS: ZINC SULFATE 220mg CAP or TAB PO SCH (22:18)
[2025-05-09] MEDS: ASCORBIC ACID 500 MG TAB PO SCH (22:18)
[2025-05-10] VITALS (33 sets, daily range): BP systolic 92–139; BP diastolic 49–81; PULSE 96–109; RESP 6–16; TEMP 96.3–99.1; O2SAT 98–99
[2025-05-10 07:06] LABS: Hemoglobin 7.8 g/dL (13.5-17.5); Mean Corpuscular Hemoglobin 27.9 pg (28.0-32.0)
[2025-05-10 07:07] LABS: Hematocrit 24.0 % (41.0-53.0); Mean Corpuscular Volume 85.8 fL (80.0-100.0); Nucleated Red Blood Cells % 0.1 %
[2025-05-10 07:19] LABS: Alanine Aminotransferase 19 U/L (7-40); Anion Gap 9 (5-15); BUN/Creatinine Ratio 13.8 (10.0-20.0); Blood Urea Nitrogen 13 mg/dL (9-23); Potassium 3.9 mmol/L (3.5-5.1); Sodium 137 mmol/L (136-145)
[2025-05-10 07:36] LABS: Albumin 1.3 g/dL (3.2-4.8); Alkaline Phosphatase 477 U/L (46-116); Bilirubin, Total < 0.2 mg/dL (0.2-1.0); Carbon Dioxide 17 mmol/L (20-31); Chloride 111 mmol/L (98-107); Glucose 145 mg/dL (74-106); Total Protein 3.5 g/dL (5.7-8.2)
[2025-05-10 07:37] LABS: Calcium 5.9 mg/dL (8.7-10.4)
--- NOTE | 2025-05-10 08:12 | DVHPN2 ---
Reviewed: H&P Changes from previous H/P or p: No Changes General: Per HPI Objective Vitals Vital Signs Date Time Temp Pulse Resp B/P (MAP) Pulse Ox O2 Delivery O2 Flow Rate FiO2 05/10/25 04:00 101 05/09/25 22:30 10 129/77 05/09/25 20:00 98 Room Air* 0 21 05/09/25 18:30 97.7 207.9 Intake/Output Intake and Output 05/10/25 07:00 Intake Total 3328.0 ml Output Total 1010 ml Balance 2318.0 ml Intake Oral 100 ml IV Total 3228.0 ml Output Urine Total 1010 ml Exam General: Lucid, cachectic, unkempt, afebrile, mucosae are moist Cardiovascular: Normal S1 and S2. No murmurs, gallops or rubs Respiratory: Normal ventilation mechanics. Clear lung sounds on auscultation Abdomen: Soft, epigastric pain with superficial palpation rest of abdomen is nontender, no organomegaly, normal bowel sounds MSK/skin: Mobilizes 4 limbs. Presents yellow crust and lower limbs, rest of skin is dry and warm Neurological: Oriented in 3 spheres. No motor no sensitive deficits. Pupils are isocoric and reactive Medications Current Medications Medications Dose Ordered Sig/Zaria Route Start Time Stop Time Status Last Admin Dose Admin Acetaminophen 325 mg Q4HP PRN PO 05/07/25 22:30 Ondansetron HCl 4 mg Q4HP PRN IV 05/07/25 22:30 Hydromorphone HCl 0.25 mg Q4HPRN PRN IV 05/07/25 22:30 05/09/25 21:54 0.25 MG Vancomycin HCl 0 ml @ 0 mls/hr UD IV 05/07/25 22:30 Pantoprazole Sodium 40 mg BID IV 05/08/25 10:00 05/09/25 22:10 40 MG Meropenem 50 ml @ 17 mls/hr Q8H IV 05/08/25 14:00 Hold 05/09/25 14:22 17 MLS/HR Dextrose 50 ml UD PRN IV 05/08/25 14:00 05/09/25 17:44 50 ML Enoxaparin Sodium 40 mg Q12HR SC 05/08/25 22:00 05/09/25 22:10 40 MG Cefepime HCl 50 ml @ 12.5 mls/hr Q8HR IV 05/09/25 14:00 05/10/25 07:02 12.5 MLS/HR Diagnostic Test (Pha) 1 strip Q2HR 05/09/25 10:30 05/10/25 06:00 1 STRIP Ergocalciferol 50,000 unit Q7D PO 05/09/25 12:15 05/09/25 15:41 50,000 UNIT Dextrose/Sodium Chloride 1,000 ml @ 150 mls/hr Q6H40M IV 05/09/25 12:45 05/10/25 02:02 150 MLS/HR Enteral Nutritional Formula 240 ml TIDWM PO 05/09/25 18:00 05/09/25 18:21 240 ML Enteral Nutritional Formula 28.8 gm BIDWM PO 05/09/25 18:00 05/09/25 18:21 28.8 GM Multivitamins/ Minerals 1 tab DAILY PO 05/10/25 10:00 Ascorbic Acid 500 mg BID PO 05/09/25 22:00 05/09/25 22:18 500 MG Zinc Sulfate 220 mg BID PO 05/09/25 22:00 05/19/25 22:00 05/09/25 22:18 220 MG Laboratory Results Laboratory Tests 05/10/25 06:29 Chemistry Test 05/10/25 06:29 Albumin 1.3 g/dL (3.2-4.8) L Calcium Level 5.9 mg/dL (8.7-10.4) *L Total Protein 3.5 g/dL (5.7-8.2) L LFT Test 05/10/25 06:29 Alanine Aminotransferase (ALT) 19 U/L (7-40) Alkaline Phosphatase 477 U/L (46-116) H Aspartate Amino Transferase (AST) 29 U/L (13-40) Total Bilirubin < 0.2 mg/dL (0.2-1.0) L Urinalysis Test 05/08/25 00:20 Urine Color Colorless (Yellow) Urine Clarity Clear (Clear) Urine pH 5.5 (5.0-9.0) Urine Specific [place] 1.010 (1.001-1.035) Urine Protein Trace (Negative) H Urine Ketones Negative (Negative) Urine Blood 2+ /uL (Negative) H Urine Nitrite Negative (Negative) Urine Bilirubin Negative (Negative) Urine Urobilinogen Normal mg/dL (Negative) Urine Leukocyte Esterase 2+ /uL (Negative) Urine RBC 12 /hpf (0 - 3) Urine Microscopic WBC 118 /HPF (0-3) H Urine Squamous Epithelial Cells None seen /hpf (<5) Urine Bacteria None seen /hpf (None Seen) Urine Glucose 4+ mg/dL (Normal) H Microbiology Microbiology Date/Time Source Procedure Growth Status 05/08/25 06:20 Thigh Gram Stain Pending Resulted 05/08/25 06:20 Thigh Wound Culture - Preliminary Resulted 05/08/25 00:20 Voided Urine Urine Culture - Preliminary Resulted 05/07/25 18:25 Blood Blood Culture - Preliminary NO GROWTH AFTER 48 HOURS OF INCUBATION. Resulted Labs and/or images reviewed: Labs reviewed by me, Image(s) reviewed by me Assessment/Plan Assessment/Plan 45-year-old male patient who presents to ER via EMS with complaint of altered mental status associated with hyperglycemia (over 600 mg/deciliters, measured by caregiver), nausea and chronic epigastric pain, prompting calling 911. Patient has not been compliant with medication. Patient is a poor historian, due to clinical status could not obtain rest of review of systems. Past medical history: Hyper tension, Diabetes type 1insulin-dependent, noncompliant with medication, multiple admissions due to DKA (most recent one less than 1 month ago) required previous ET intubation due to altered mental status, gastroparesis, severe malnutrition, completed endoscopy and evidence of sliding hernia and erosive esophagitis, nonocclusive DVT in left internal jugular on Eliquis, multiple sacral wounds present on admission, possible angioedema, normocytic anemia. 05/08: Here for [facility]/honk, does not have a legal contracts specialist for diabetes, he is type 1 diabetic. Multiple morbidities, admissions, still declines to go to legal contracts specialist for father. In the see GM with insulin pump to prevent recurrent admissions to improve survival. Currently patient was on HS, resolving. He also has hypothermia, getting bear hugger. Continuing antibiotics for wounds, sacral wound and heel wound pressure ulcers wound care consulted continuing antibiotic meropenem. - patient hypotensive in p.m., nonresponsive to fluid bolus, start Levophed. Blood culture Gram-negative rods, insert Owens and collect urine culture to find source. 05/09: HHS resolved, now hypoglycemia. Holding insulin. We will consult endocrinology. Patient is on D5 half-normal we will continue q.2h HX until we get optimal D5 half-normal to keep blood glucose > 80. Patient to start diet today full liquid diet.. Continue other medications. Continuing IV antibiotics, pending urine culture. Patient has whole-body swelling allergy to penicillins, we will add cefepime. 05/10. Continues to be weak, minimally tolerating any p.o.,. We will start Reglan 10 mg b.i.d. IV. Initial UA concerning for infection likely source., there is also history of lower extremity infection which could be possible also source. Patient needs to eat at least high-protein ensure twice daily. Continue D5 half NS at 1:50 a.m. cc hour. We will consult PT today., has been 48 hour almost since Owens insert, we will try repeat urine culture from Owens as the initial culture appears to be multi kit. # Metabolic encephalopathy - Secondary to DKA - Completed head CT ruling out intracranial acute pathology # Diabetic ketoacidosis -resolved - Required IV insulin. Currently with subcutaneous insulin - Responded to IV fluid # Ruled out sepsis - Mild tachycardia - Expectant antibiotic treatment. Probable cause of DKA is noncompliance of medication - Ordered blood culture, negative at the moment - Urine analysis negative for probable infection/inflammation. Presents glucosuria # Erosive esophagitis - Continue with pantoprazole IV twice daily. On Famotidine - Avoid NSAIDs. Recommend Tylenol for pain. Avoid opioids due to reduced motility of the GI tract. # RADHA due to VMN - Secondary to diabetic ketoacidosis - Have responded to IV fluid # Diabetes mellitus type 1 - Uncontrolled (hemoglobin A1c: 12) - Currently on insulin sliding scale - Gave advised on healthy lifestyle habits # Noncompliance - Patient is noncompliant with insulin therapy, because of DKA in this admission - Have ordered school social worker consult to evaluate patient's safety, discharge with home health # Cachexia - Secondary to anorexia due to intolerance of feedings symptomatic by abdominal pain and nausea - Have ruled out previously gastroparesis - Will continue TPN. Risk and benefits of prolonged TPN have been explained, including infection and eventual endocarditis # Microcytic anemia - Control on lab - Probably secondary micronutrient deficiency due to food intake intolerance # Marijuana abuse - Gave advice on healthy lifestyle- Goals of care discussed with patient for over 18 minutes: Full CODE STATUS Plan discussed with: Patient My Orders Orders - BHAVANA HERNANDEZ MD Procedure Category Date Status Time * Endocrinology CONS 05/09/25 Transmitted Consult 10:03 Full Liq Diet DIET 05/09/25 Transmitted Lunch Cefepime 1gm/50ml PHA 05/09/25 In Process (Maxipime 1gm/50ml) 14:00 Glucose Blood PHA 05/09/25 In Process (Accu-Chek Comfort 10:30 Notify Provider NOTICE 05/09/25 Transmitted Malnutrition 12:21 Increase Calorie NOURISH 05/09/25 Transmitted Intake 12:21 Nutritional PHA 05/09/25 In Process Supplements (Ensure 18:00 Nutritional PHA 05/09/25 In Process Supplements (Bryce 18:00 Multiple Vitamin W PHA 05/10/25 In Process Mineral Tab (Mvi W/ M 10:00 Ascorbic Acid Tablet PHA 05/09/25 In Process (Vitamin C Tablet) 22:00 Zinc Sulfate PHA 05/09/25 In Process 22:00 Calcium Gluc PHA 05/10/25 Logged 1,000mg/50ml-Ns 08:00 Blood Culture RICHARD 05/10/25 Logged 07:58 Date of Service: May 10, 2025 Billing Provider: BHAVANA HERNANDEZ MD Common Visit Codes: [id number] CARE 30-74 MIN BHAVANA HERNANDEZ MD May 10, 2025 08:12
[2025-05-10] MEDS: MULTIPLE VITAMINS W/ MINERALS TAB PO SCH (09:10)
[2025-05-10] MEDS: CALCIUM GLUC 1,000mg/50ml-NS 50 ML IV ONE (09:11)
[2025-05-10] MEDS: METOCLOPRAMIDE HCL 5MG/ml INJ 2ml VIAL IV SCH (09:11)
[2025-05-10] MEDS ORDERED: D5W/SOD CHL 0.45% 1,000 ML IV SCH (09:15)
[2025-05-10] MEDS: INSULIN LANTUS (GLARGINE) 1 /0.01ml (100units/ml) SC ONE (11:46)
[2025-05-10] MEDS: ENSURE CLEAR Mixed Berry 8oz Carton PO SCH (18:09)
[2025-05-11] VITALS (26 sets, daily range): BP systolic 94–128; BP diastolic 54–87; PULSE 83–110; RESP 5–14; TEMP 97–98.8; O2SAT 98–100
[2025-05-11 04:35] LABS: Hemoglobin 8.3 g/dL (13.5-17.5); Nucleated Red Blood Cells % 0.0 %
[2025-05-11 04:39] LABS: Hematocrit 25.6 % (41.0-53.0); Mean Corpuscular Hemoglobin 27.7 pg (28.0-32.0); Mean Corpuscular Volume 85.2 fL (80.0-100.0)
[2025-05-11 04:50] LABS: Alanine Aminotransferase 19 U/L (7-40); Anion Gap 7 (5-15); BUN/Creatinine Ratio 12.0 (10.0-20.0); Blood Urea Nitrogen 12 mg/dL (9-23); Glucose 78 mg/dL (74-106); Potassium 3.6 mmol/L (3.5-5.1); Sodium 138 mmol/L (136-145)
[2025-05-11 04:52] LABS: Albumin 1.5 g/dL (3.2-4.8); Alkaline Phosphatase 481 U/L (46-116); Bilirubin, Total < 0.2 mg/dL (0.2-1.0); Calcium 6.5 mg/dL (8.7-10.4); Carbon Dioxide 18 mmol/L (20-31); Chloride 113 mmol/L (98-107); Total Protein 4.2 g/dL (5.7-8.2)
[2025-05-11] MEDS: D5W/SOD CHL 0.45% 1,000 ML IV SCH ×2 (08:00→12:45)
--- NOTE | 2025-05-11 09:12 | DVHPN2 ---
Reviewed: H&P Changes from previous H/P or p: No Changes General: Per HPI Objective Vitals Vital Signs Date Time Temp Pulse Resp B/P (MAP) Pulse Ox O2 Delivery O2 Flow Rate FiO2 05/11/25 07:57 83 14 99 Room Air* 0 21 05/11/25 07:00 97.9 105/78 (87) 208.2 Intake/Output Intake and Output 05/11/25 07:00 Intake Total 642.5 ml Output Total 675 ml Balance -32.5 ml Intake Oral 55 ml IV Total 587.5 ml Output Urine Total 675 ml # Bowel Movements 2 Exam General: Lucid, cachectic, unkempt, afebrile, mucosae are moist Cardiovascular: Normal S1 and S2. No murmurs, gallops or rubs Respiratory: Normal ventilation mechanics. Clear lung sounds on auscultation Abdomen: Soft, epigastric pain with superficial palpation rest of abdomen is nontender, no organomegaly, normal bowel sounds MSK/skin: Mobilizes 4 limbs. Presents yellow crust and lower limbs, rest of skin is dry and warm Neurological: Oriented in 3 spheres. No motor no sensitive deficits. Pupils are isocoric and reactive Medications Current Medications Medications Dose Ordered Sig/Zaria Route Start Time Stop Time Status Last Admin Dose Admin Acetaminophen 325 mg Q4HP PRN PO 05/07/25 22:30 Ondansetron HCl 4 mg Q4HP PRN IV 05/07/25 22:30 Hydromorphone HCl 0.25 mg Q4HPRN PRN IV 05/07/25 22:30 05/10/25 20:53 0.25 MG Vancomycin HCl 0 ml @ 0 mls/hr UD IV 05/07/25 22:30 Pantoprazole Sodium 40 mg BID IV 05/08/25 10:00 05/10/25 22:50 40 MG Dextrose 50 ml UD PRN IV 05/08/25 14:00 05/11/25 05:57 50 ML Enoxaparin Sodium 40 mg Q12HR SC 05/08/25 22:00 05/10/25 22:51 40 MG Cefepime HCl 50 ml @ 12.5 mls/hr Q8HR IV 05/09/25 14:00 05/11/25 06:30 12.5 MLS/HR Diagnostic Test (Pha) 1 strip Q2HR 05/09/25 10:30 05/11/25 08:00 1 STRIP Ergocalciferol 50,000 unit Q7D PO 05/09/25 12:15 05/09/25 15:41 50,000 UNIT Enteral Nutritional Formula 28.8 gm BIDWM PO 05/09/25 18:00 05/11/25 08:00 28.8 GM Multivitamins/ Minerals 1 tab DAILY PO 05/10/25 10:00 05/10/25 09:10 1 TAB Ascorbic Acid 500 mg BID PO 05/09/25 22:00 05/10/25 22:50 500 MG Zinc Sulfate 220 mg BID PO 05/09/25 22:00 05/19/25 22:00 05/10/25 22:52 220 MG Metoclopramide HCl 10 mg BID IV 05/10/25 10:00 05/10/25 22:50 10 MG Insulin Glargine 6 units DAILY@1000 SC 05/11/25 10:00 Enteral Nutritional Formula 240 ml TIDWM PO 05/10/25 18:00 05/11/25 08:00 240 ML Laboratory Results Laboratory Tests 05/11/25 03:58 Chemistry Test 05/11/25 03:58 Albumin 1.5 g/dL (3.2-4.8) L Calcium Level 6.5 mg/dL (8.7-10.4) L Total Protein 4.2 g/dL (5.7-8.2) L LFT Test 05/11/25 03:58 Alanine Aminotransferase (ALT) 19 U/L (7-40) Alkaline Phosphatase 481 U/L (46-116) H Aspartate Amino Transferase (AST) 22 U/L (13-40) Total Bilirubin < 0.2 mg/dL (0.2-1.0) L Urinalysis Test 05/08/25 00:20 Urine Color Colorless (Yellow) Urine Clarity Clear (Clear) Urine pH 5.5 (5.0-9.0) Urine Specific [place] 1.010 (1.001-1.035) Urine Protein Trace (Negative) H Urine Ketones Negative (Negative) Urine Blood 2+ /uL (Negative) H Urine Nitrite Negative (Negative) Urine Bilirubin Negative (Negative) Urine Urobilinogen Normal mg/dL (Negative) Urine Leukocyte Esterase 2+ /uL (Negative) Urine RBC 12 /hpf (0 - 3) Urine Microscopic WBC 118 /HPF (0-3) H Urine Squamous Epithelial Cells None seen /hpf (<5) Urine Bacteria None seen /hpf (None Seen) Urine Glucose 4+ mg/dL (Normal) H Microbiology Microbiology Date/Time Source Procedure Growth Status 05/10/25 08:38 Blood Blood Culture - Preliminary NO GROWTH AFTER 24 HOURS OF INCUBATION. Resulted 05/08/25 06:20 Thigh Gram Stain Pending Resulted 05/08/25 06:20 Wound Culture - Preliminary Escherichia coli Klebsiella pneumoniae Staphylococcus aureus Resulted 05/08/25 00:20 Voided Urine Urine Culture - Final Complete Labs and/or images reviewed: Labs reviewed by me, Image(s) reviewed by me Assessment/Plan Assessment/Plan 45-year-old male patient who presents to ER via EMS with complaint of altered mental status associated with hyperglycemia (over 600 mg/deciliters, measured by caregiver), nausea and chronic epigastric pain, prompting calling 911. Patient has not been compliant with medication. Patient is a poor historian, due to clinical status could not obtain rest of review of systems. Past medical history: Hyper tension, Diabetes type 1insulin-dependent, noncompliant with medication, multiple admissions due to DKA (most recent one less than 1 month ago) required previous ET intubation due to altered mental status, gastroparesis, severe malnutrition, completed endoscopy and evidence of sliding hernia and erosive esophagitis, nonocclusive DVT in left internal jugular on Eliquis, multiple sacral wounds present on admission, possible angioedema, normocytic anemia. 05/08: Here for [facility]/honk, does not have a machine fur cleaner for diabetes, he is type 1 diabetic. Multiple morbidities, admissions, still declines to go to machine fur cleaner for father. In the see GM with insulin pump to prevent recurrent admissions to improve survival. Currently patient was on HS, resolving. He also has hypothermia, getting bear hugger. Continuing antibiotics for wounds, sacral wound and heel wound pressure ulcers wound care consulted continuing antibiotic meropenem. - patient hypotensive in p.m., nonresponsive to fluid bolus, start Levophed. Blood culture Gram-negative rods, insert Owens and collect urine culture to find source. 05/09: HHS resolved, now hypoglycemia. Holding insulin. We will consult endocrinology. Patient is on D5 half-normal we will continue q.2h HX until we get optimal D5 half-normal to keep blood glucose > 80. Patient to start diet today full liquid diet.. Continue other medications. Continuing IV antibiotics, pending urine culture. Patient has whole-body swelling allergy to penicillins, we will add cefepime. 05/10. Continues to be weak, minimally tolerating any p.o.,. We will start Reglan 10 mg b.i.d. IV. Initial UA concerning for infection likely source., there is also history of lower extremity infection which could be possible also source. Patient needs to eat at least high-protein ensure twice daily. Continue D5 half NS at 1:50 a.m. cc hour. We will consult PT today., has been 48 hour almost since Owens insert, we will try repeat urine culture from Owens as the initial culture appears to be multi kit. 05/11: Endocrinology has started Lantus, because of hyperglycemia. Not there is again some hypoglycemia so D5 is back on. Patient is feeling stronger looking stronger more awake. He is eating more ensure. There was concern of right leg infection, currently right leg looks unconcerning, there is a wound on the lateral side on the right foot. Patient is hypothermic again requiring some bear hugger. # Metabolic encephalopathy - Secondary to DKA - Completed head CT ruling out intracranial acute pathology # Diabetic ketoacidosis -resolved - Required IV insulin. Currently with subcutaneous insulin - Responded to IV fluid # Ruled out sepsis - Mild tachycardia - Expectant antibiotic treatment. Probable cause of DKA is noncompliance of medication - Ordered blood culture, negative at the moment - Urine analysis negative for probable infection/inflammation. Presents glucosuria # Erosive esophagitis - Continue with pantoprazole IV twice daily. On Famotidine - Avoid NSAIDs. Recommend Tylenol for pain. Avoid opioids due to reduced motility of the GI tract. # RADHA due to VMN - Secondary to diabetic ketoacidosis - Have responded to IV fluid # Diabetes mellitus type 1 - Uncontrolled (hemoglobin A1c: 12) - Currently on insulin sliding scale - Gave advised on healthy lifestyle habits # Noncompliance - Patient is noncompliant with insulin therapy, because of DKA in this admission - Have ordered social media content manager consult to evaluate patient's safety, discharge with home health # Cachexia - Secondary to anorexia due to intolerance of feedings symptomatic by abdominal pain and nausea - Have ruled out previously gastroparesis - Will continue TPN. Risk and benefits of prolonged TPN have been explained, including infection and eventual endocarditis # Microcytic anemia - Control on lab - Probably secondary micronutrient deficiency due to food intake intolerance # Marijuana abuse - Gave advice on healthy lifestyle- Goals of care discussed with patient for over 18 minutes: Full CODE STATUS Plan discussed with: Patient My Orders Orders - BHAVANA HERNANDEZ MD Procedure Category Date Status Time Nutritional PHA 05/10/25 In Process Supplements (Ensure 18:00 Date of Service: May 11, 2025 Billing Provider: BHAVANA HERNANDEZ MD Common Visit Codes: [id number] CARE 30-74 MIN BHAVANA HERNANDEZ MD May 11, 2025 09:12
[2025-05-11] MEDS ORDERED: INSULIN LANTUS (GLARGINE) 1 /0.01ml (100units/ml) SC SCH (10:00)
[2025-05-11] MEDS: ONDANSETRON HCL 4 MG/2 ML VIAL IV PRN (12:11)
[2025-05-11] MEDS: MUPIROCIN 2% OINT 15gm or 22gm FOR MRSA NARES EACHNOSTRI SCH (21:24)
[2025-05-12] VITALS (23 sets, daily range): BP systolic 82–119; BP diastolic 46–70; PULSE 91–112; RESP 6–25; TEMP 97.2–99; O2SAT 97–99
[2025-05-12 08:53] LABS: Hematocrit 28.5 % (41.0-53.0); Hemoglobin 9.0 g/dL (13.5-17.5); Mean Corpuscular Hemoglobin 27.2 pg (28.0-32.0); Mean Corpuscular Volume 86.3 fL (80.0-100.0); Nucleated Red Blood Cells % 0.0 %
[2025-05-12] MEDS: INSULIN LISPRO (HUMAN) 100 UNITS/ML ML SC ONE ×2 (11:30→16:31)
--- NOTE | 2025-05-12 12:03 | DVHPN2 ---
Reviewed: H&P Changes from previous H/P or p: No Changes General: Per HPI Objective Vitals Vital Signs Date Time Temp Pulse Resp B/P (MAP) Pulse Ox O2 Delivery O2 Flow Rate FiO2 05/12/25 09:18 108 9 103/55 05/12/25 08:00 97 Room Air* 0 21 05/12/25 06:00 97.7 207.9 Intake/Output Intake and Output 05/12/25 07:00 Intake Total 2380.0 ml Output Total 1575 ml Balance 805.0 ml Intake Oral 130 ml IV Total 2250.0 ml Output Urine Total 1575 ml # Bowel Movements 1 Exam General: Lucid, cachectic, unkempt, afebrile, mucosae are moist Cardiovascular: Normal S1 and S2. No murmurs, gallops or rubs Respiratory: Normal ventilation mechanics. Clear lung sounds on auscultation Abdomen: Soft, epigastric pain with superficial palpation rest of abdomen is nontender, no organomegaly, normal bowel sounds MSK/skin: Mobilizes 4 limbs. Presents yellow crust and lower limbs, rest of skin is dry and warm Neurological: Oriented in 3 spheres. No motor no sensitive deficits. Pupils are isocoric and reactive Medications Current Medications Medications Dose Ordered Sig/Zaria Route Start Time Stop Time Status Last Admin Dose Admin Acetaminophen 325 mg Q4HP PRN PO 05/07/25 22:30 Ondansetron HCl 4 mg Q4HP PRN IV 05/07/25 22:30 05/12/25 08:41 4 MG Hydromorphone HCl 0.25 mg Q4HPRN PRN IV 05/07/25 22:30 05/12/25 08:42 0.25 MG Vancomycin HCl 0 ml @ 0 mls/hr UD IV 05/07/25 22:30 Pantoprazole Sodium 40 mg BID IV 05/08/25 10:00 05/12/25 09:48 40 MG Dextrose 50 ml UD PRN IV 05/08/25 14:00 05/11/25 05:57 50 ML Enoxaparin Sodium 40 mg Q12HR SC 05/08/25 22:00 05/12/25 09:52 40 MG Cefepime HCl 50 ml @ 12.5 mls/hr Q8HR IV 05/09/25 14:00 05/12/25 05:10 12.5 MLS/HR Diagnostic Test (Pha) 1 strip Q2HR 05/09/25 10:30 05/12/25 10:08 1 STRIP Ergocalciferol 50,000 unit Q7D PO 05/09/25 12:15 05/09/25 15:41 50,000 UNIT Enteral Nutritional Formula 28.8 gm BIDWM PO 05/09/25 18:00 05/12/25 08:26 28.8 GM Multivitamins/ Minerals 1 tab DAILY PO 05/10/25 10:00 05/12/25 09:48 1 TAB Ascorbic Acid 500 mg BID PO 05/09/25 22:00 05/12/25 09:47 500 MG Zinc Sulfate 220 mg BID PO 05/09/25 22:00 05/19/25 22:00 05/12/25 09:47 220 MG Metoclopramide HCl 10 mg BID IV 05/10/25 10:00 05/12/25 09:48 10 MG Enteral Nutritional Formula 240 ml TIDWM PO 05/10/25 18:00 05/12/25 08:26 240 ML Dextrose/Sodium Chloride 1,000 ml @ 150 mls/hr Q6H40M IV 05/11/25 12:45 05/12/25 01:44 150 MLS/HR Mupirocin 1 applic BID EACHNOSTRI 05/11/25 22:00 05/16/25 21:59 05/12/25 10:08 1 APPLIC Laboratory Results Laboratory Tests 05/11/25 03:58 05/12/25 08:20 Urinalysis Test 05/08/25 00:20 Urine Color Colorless (Yellow) Urine Clarity Clear (Clear) Urine pH 5.5 (5.0-9.0) Urine Specific Ellery 1.010 (1.001-1.035) Urine Protein Trace (Negative) H Urine Ketones Negative (Negative) Urine Blood 2+ /uL (Negative) H Urine Nitrite Negative (Negative) Urine Bilirubin Negative (Negative) Urine Urobilinogen Normal mg/dL (Negative) Urine Leukocyte Esterase 2+ /uL (Negative) Urine RBC 12 /hpf (0 - 3) Urine Microscopic WBC 118 /HPF (0-3) H Urine Squamous Epithelial Cells None seen /hpf (<5) Urine Bacteria None seen /hpf (None Seen) Urine Glucose 4+ mg/dL (Normal) H Microbiology Microbiology Date/Time Source Procedure Growth Status 05/10/25 09:38 Urine - [place] Urine Culture - Preliminary Resulted 05/10/25 08:38 Blood Blood Culture - Preliminary NO GROWTH AFTER 48 HOURS OF INCUBATION. Resulted 05/08/25 06:20 Thigh Gram Stain - Final Resulted 05/08/25 06:20 Wound Culture - Preliminary Escherichia coli Klebsiella pneumoniae Staphylococcus aureus Resulted Labs and/or images reviewed: Labs reviewed by me, Image(s) reviewed by me Assessment/Plan Assessment/Plan 45-year-old male patient who presents to ER via EMS with complaint of altered mental status associated with hyperglycemia (over 600 mg/deciliters, measured by caregiver), nausea and chronic epigastric pain, prompting calling 911. Patient has not been compliant with medication. Patient is a poor historian, due to clinical status could not obtain rest of review of systems. Past medical history: Hyper tension, Diabetes type 1insulin-dependent, noncompliant with medication, multiple admissions due to DKA (most recent one less than 1 month ago) required previous ET intubation due to altered mental status, gastroparesis, severe malnutrition, completed endoscopy and evidence of sliding hernia and erosive esophagitis, nonocclusive DVT in left internal jugular on Eliquis, multiple sacral wounds present on admission, possible angioedema, normocytic anemia. 05/08: Here for HHS/honk, does not have a certified master locksmith for diabetes, he is type 1 diabetic. Multiple morbidities, admissions, still declines to go to certified master locksmith for father. In the see GM with insulin pump to prevent recurrent admissions to improve survival. Currently patient was on HS, resolving. He also has hypothermia, getting bear hugger. Continuing antibiotics for wounds, sacral wound and heel wound pressure ulcers wound care consulted continuing antibiotic meropenem. - patient hypotensive in p.m., nonresponsive to fluid bolus, start Levophed. Blood culture Gram-negative rods, insert [place] and collect urine culture to find source. 05/09: HHS resolved, now hypoglycemia. Holding insulin. We will consult endocrinology. Patient is on D5 half-normal we will continue q.2h HX until we get optimal D5 half-normal to keep blood glucose > 80. Patient to start diet today full liquid diet.. Continue other medications. Continuing IV antibiotics, pending urine culture. Patient has whole-body swelling allergy to penicillins, we will add cefepime. 05/10. Continues to be weak, minimally tolerating any p.o.,. We will start Reglan 10 mg b.i.d. IV. Initial UA concerning for infection likely source., there is also history of lower extremity infection which could be possible also source. Patient needs to eat at least high-protein ensure twice daily. Continue D5 half NS at 1:50 a.m. cc hour. We will consult PT today., has been 48 hour almost since Owens insert, we will try repeat urine culture from [place] as the initial culture appears to be multi kit. 05/11: Endocrinology has started Lantus, because of hyperglycemia. Not there is again some hypoglycemia so D5 is back on. Patient is feeling stronger looking stronger more awake. He is eating more ensure. There was concern of right leg infection, currently right leg looks unconcerning, there is a wound on the lateral side on the right foot. Patient is hypothermic again requiring some bear hugger. 05/12: Endocrinology continues to work on optimizing needed insulin level. Patient improved. More energy. We will continue PT, having diarrhea which is his baseline. Once insulin regimen has been finalized patient will be ready for discharge, possible tomorrow. # Metabolic encephalopathy - Secondary to DKA - Completed head CT ruling out intracranial acute pathology # Diabetic ketoacidosis -resolved - Required IV insulin. Currently with subcutaneous insulin - Responded to IV fluid # Ruled out sepsis - Mild tachycardia - Expectant antibiotic treatment. Probable cause of DKA is noncompliance of medication - Ordered blood culture, negative at the moment - Urine analysis negative for probable infection/inflammation. Presents glucosuria # Erosive esophagitis - Continue with pantoprazole IV twice daily. On Famotidine - Avoid NSAIDs. Recommend Tylenol for pain. Avoid opioids due to reduced motility of the GI tract. # RADHA due to VMN - Secondary to diabetic ketoacidosis - Have responded to IV fluid # Diabetes mellitus type 1 - Uncontrolled (hemoglobin A1c: 12) - Currently on insulin sliding scale - Gave advised on healthy lifestyle habits # Noncompliance - Patient is noncompliant with insulin therapy, because of DKA in this admission - Have ordered social service worker consult to evaluate patient's safety, discharge with home health # Cachexia - Secondary to anorexia due to intolerance of feedings symptomatic by abdominal pain and nausea - Have ruled out previously gastroparesis - Will continue TPN. Risk and benefits of prolonged TPN have been explained, including infection and eventual endocarditis # Microcytic anemia - Control on lab - Probably secondary micronutrient deficiency due to food intake intolerance # Marijuana abuse - Gave advice on healthy lifestyle- Goals of care discussed with patient for over 18 minutes: Full CODE STATUS Plan discussed with: Patient My Orders Orders - BHAVANA HERNANDEZ MD Procedure Category Date Status Time Mupirocin 2% Oint PHA 05/11/25 In Process Mrsa Nares (Bactroban 22:00 Date of Service: May 12, 2025 Billing Provider: BHAVANA HERNANDEZ MD Common Visit Codes: [id number] CARE 30-74 MIN BHAVANA HERNANDEZ MD May 12, 2025 12:03
--- NOTE | 2025-05-12 15:28 | DVHPN2 ---
Progress Note - Dictate Date Seen: May 12, 2025 Medical Necessity Reason Pt with a Central, PICC or Fol: No Subjective Still recurrent hypoglycemia. Tolerating PO intake better over past 12 hours. vital signs Vital Sign Date Time Temp Pulse Resp B/P (MAP) Pulse Ox O2 Delivery O2 Flow Rate FiO2 05/12/25 15:00 98.2 98 9 86/46 (59) 98 208.8 05/12/25 08:00 Room Air* 0 21 Total Intake and Output 05/11/25 05/11/25 05/12/25 15:00 23:00 07:00 Intake Total 812.5 ml 1187.5 ml 380 ml Output Total 675 ml 900 ml Balance 812.5 ml 512.5 ml -520 ml medications Current Medications Medications Dose Ordered Sig/Zaria Route Start Time Stop Time Status Last Admin Dose Admin Acetaminophen 325 mg Q4HP PRN PO 05/07/25 22:30 Ondansetron HCl 4 mg Q4HP PRN IV 05/07/25 22:30 05/12/25 14:27 4 MG Hydromorphone HCl 0.25 mg Q4HPRN PRN IV 05/07/25 22:30 05/12/25 08:42 0.25 MG Vancomycin HCl 0 ml @ 0 mls/hr UD IV 05/07/25 22:30 Pantoprazole Sodium 40 mg BID IV 05/08/25 10:00 05/12/25 09:48 40 MG Dextrose 50 ml UD PRN IV 05/08/25 14:00 05/11/25 05:57 50 ML Enoxaparin Sodium 40 mg Q12HR SC 05/08/25 22:00 05/12/25 09:52 40 MG Cefepime HCl 50 ml @ 12.5 mls/hr Q8HR IV 05/09/25 14:00 05/12/25 14:22 12.5 MLS/HR Diagnostic Test (Pha) 1 strip Q2HR 05/09/25 10:30 05/12/25 14:22 1 STRIP Ergocalciferol 50,000 unit Q7D PO 05/09/25 12:15 05/09/25 15:41 50,000 UNIT Enteral Nutritional Formula 28.8 gm BIDWM PO 05/09/25 18:00 05/12/25 08:26 28.8 GM Multivitamins/ Minerals 1 tab DAILY PO 05/10/25 10:00 05/12/25 09:48 1 TAB Ascorbic Acid 500 mg BID PO 05/09/25 22:00 05/12/25 09:47 500 MG Zinc Sulfate 220 mg BID PO 05/09/25 22:00 05/19/25 22:00 05/12/25 09:47 220 MG Metoclopramide HCl 10 mg BID IV 05/10/25 10:00 05/12/25 09:48 10 MG Enteral Nutritional Formula 240 ml TIDWM PO 05/10/25 18:00 05/12/25 12:07 240 ML Dextrose/Sodium Chloride 1,000 ml @ 150 mls/hr Q6H40M IV 05/11/25 12:45 05/12/25 01:44 150 MLS/HR Mupirocin 1 applic BID EACHNOSTRI 05/11/25 22:00 05/16/25 21:59 05/12/25 10:08 1 APPLIC laboratory and microbiology Laboratory Tests 05/12/25 08:20 05/11/25 03:58 Test 05/11/25 03:58 Range/Units Serum Glucose 78 74-106 mg/dL Assessment/Plan 1. Uncontrolled type 1 diabetes mellitus with hyperglycemia 2. Severe protein calorie malnutrition 3. Hypovolemic hyponatremia 4. Prerenal RADHA 5. Erosive esophagitis 6. Cachexia 7. Sepsis Patient with severe protein calorie malnutrition with profound hypoalbuminemia causing poor insulin binding, decreased hepatic gluconeogenesis, decreased glycogen stores given poor p.o. intake leading to significant recurrent insulin sensitivity and hypoglycemia. No evidence of adrenal insufficiency at this time. Hypothyroidism may be contributing to mild degree however better to assess as outpatient. Will order C-peptide to evaluate function of the pancreas at this time. Hold D5W - Low intensity SSI lispro q6h Recommend dietitian consultation Continue empiric antibiotic therapy Hypoglycemia protocol Monitor blood glucose every 3 hours Dietary Evaluation Review Recommendations by RD: Increase Calorie Intake Comments: Pt meets criteria for moderate Protein-Calorie Malnutrition in the setting of acute illness based on wt loss 2.3kg/5% in 1 month and moderate fluid accumulation(alb 1.7g/dL). Nutrition recommendation: 1) Consider Ensure High protein 240ml TID 2) Consider PN supplementation if PO intake <50% 3) Bryce 1 pk BID, MVI w/ minerals 1 tab daily, VitC 500mg BID, Zinc sulfate 220mg BID x 10 days 4) Monitor PO intake, lab values, weight trend, and I/O Expected Outcomes/Goals: To maintain/gain weight Intake to meet >75% estimated needs Lab values to improve Wound to improve Fu 2-3 days Interpretation of weight loss: up to 5% in 1 month Body Fat Depletion (Non Severe: Mild Depletion Muscle mass (Non-Severe): Mild Depletion (Moderate) Fluid Accumulation (Severe): Moderate Fluid Retention Protein Calorie Malnutrition: Non-Severe Is there a minimum of two crit: Yes Plan discussed with: Patient WINTER MELO MD May 12, 2025 15:28
[2025-05-13] VITALS (17 sets, daily range): BP systolic 89–121; BP diastolic 51–72; PULSE 87–106; RESP 7–30; TEMP 71.4–98.6; O2SAT 87–99
[2025-05-13] MEDS: ACCU-CHEK COMFORT CURVE STRIP VI SCH (13:06)
--- NOTE | 2025-05-13 13:52 | DVHPN2 ---
Progress Note - Dictate Date Seen: May 13, 2025 Medical Necessity Reason Pt with a Central, PICC or Fol: No Subjective 1 unit humalog at 1600 with downtrend to BG to 150mg/dL at midnight with uptrend over past 8 hours. vital signs Vital Sign Date Time Temp Pulse Resp B/P (MAP) Pulse Ox O2 Delivery O2 Flow Rate FiO2 05/13/25 12:00 96.6 92 10 112/67 (82) 96 96.6 05/13/25 08:00 Room Air* 0 21 Total Intake and Output 05/12/25 05/12/25 05/13/25 15:00 23:00 07:00 Intake Total 37.5 ml 274.5 ml 100 ml Output Total 275 ml 150 ml Balance 37.5 ml -0.5 ml -50 ml medications Current Medications Medications Dose Ordered Sig/Zaria Route Start Time Stop Time Status Last Admin Dose Admin Acetaminophen 325 mg Q4HP PRN PO 05/07/25 22:30 Ondansetron HCl 4 mg Q4HP PRN IV 05/07/25 22:30 05/12/25 14:27 4 MG Hydromorphone HCl 0.25 mg Q4HPRN PRN IV 05/07/25 22:30 05/13/25 09:48 0.25 MG Vancomycin HCl 0 ml @ 0 mls/hr UD IV 05/07/25 22:30 Pantoprazole Sodium 40 mg BID IV 05/08/25 10:00 05/13/25 09:46 40 MG Dextrose 50 ml UD PRN IV 05/08/25 14:00 05/11/25 05:57 50 ML Enoxaparin Sodium 40 mg Q12HR SC 05/08/25 22:00 05/13/25 09:48 40 MG Cefepime HCl 50 ml @ 12.5 mls/hr Q8HR IV 05/09/25 14:00 05/13/25 13:33 12.5 MLS/HR Ergocalciferol 50,000 unit Q7D PO 05/09/25 12:15 05/09/25 15:41 50,000 UNIT Enteral Nutritional Formula 28.8 gm BIDWM PO 05/09/25 18:00 05/13/25 09:46 28.8 GM Multivitamins/ Minerals 1 tab DAILY PO 05/10/25 10:00 05/13/25 09:49 1 TAB Ascorbic Acid 500 mg BID PO 05/09/25 22:00 05/13/25 09:49 500 MG Zinc Sulfate 220 mg BID PO 05/09/25 22:00 05/19/25 22:00 05/13/25 09:49 220 MG Metoclopramide HCl 10 mg BID IV 05/10/25 10:00 05/13/25 09:46 10 MG Enteral Nutritional Formula 240 ml TIDWM PO 05/10/25 18:00 05/13/25 13:06 240 ML Dextrose/Sodium Chloride 1,000 ml @ 150 mls/hr Q6H40M IV 05/11/25 12:45 05/12/25 01:44 150 MLS/HR Mupirocin 1 applic BID EACHNOSTRI 05/11/25 22:00 05/16/25 21:59 05/13/25 09:46 1 APPLIC Diagnostic Test (Pha) 1 strip Q3HR 05/13/25 12:00 05/13/25 13:06 1 STRIP laboratory and microbiology Laboratory Tests 05/13/25 04:58 05/12/25 08:20 05/11/25 03:58 Test 05/11/25 03:58 Range/Units Serum Glucose 78 74-106 mg/dL Assessment/Plan 1. Uncontrolled type 1 diabetes mellitus with hyperglycemia 2. Severe protein calorie malnutrition 3. Hypovolemic hyponatremia 4. Prerenal RADHA 5. Erosive esophagitis 6. Cachexia 7. Sepsis Patient with severe protein calorie malnutrition with profound hypoalbuminemia causing poor insulin binding, decreased hepatic gluconeogenesis, decreased glycogen stores given poor p.o. intake leading to significant recurrent insulin sensitivity and hypoglycemia. No evidence of adrenal insufficiency at this time. Hypothyroidism may be contributing to mild degree however better to assess as outpatient. Hold D5W - Low intensity SSI lispro q6h Recommend dietitian consultation Continue empiric antibiotic therapy Hypoglycemia protocol Monitor blood glucose every 3 hours Discharge instructions: - Monitor blood glucose fasting and 2 hours after meals - Inject Humalog 1 unit every 8 hours as needed for BG > 250mg/dL - Patient to establish care with foster parent. Clinic # [phone]. Dietary Evaluation Review Recommendations by RD: Increase Calorie Intake Comments: Pt meets criteria for moderate Protein-Calorie Malnutrition in the setting of acute illness based on wt loss 2.3kg/5% in 1 month and moderate fluid accumulation(alb 1.7g/dL). Nutrition recommendation: 1) Consider Ensure High protein 240ml TID 2) Consider PN supplementation if PO intake <50% 3) Bryce 1 pk BID, MVI w/ minerals 1 tab daily, VitC 500mg BID, Zinc sulfate 220mg BID x 10 days 4) Monitor PO intake, lab values, weight trend, and I/O Expected Outcomes/Goals: To maintain/gain weight Intake to meet >75% estimated needs Lab values to improve Wound to improve Fu 2-3 days Interpretation of weight loss: up to 5% in 1 month Body Fat Depletion (Non Severe: Mild Depletion Muscle mass (Non-Severe): Mild Depletion (Moderate) Fluid Accumulation (Severe): Moderate Fluid Retention Protein Calorie Malnutrition: Non-Severe Is there a minimum of two crit: Yes Plan discussed with: Patient WINTER MELO MD May 13, 2025 13:52
[2025-05-13] MEDS: INSULIN LISPRO (HUMAN) 100 UNITS/ML ML SC ONE (14:29)
[2025-05-13] MEDS ORDERED: INSU100I4 SC (15:28)
--- NOTE | 2025-05-13 15:33 | DVHDS2 ---
Discharge Summary Date of Admission May 07, 2025 at 22:20 Date of Discharge: May 13, 2025 Labs/Diagnostic Data: Laboratory Results Test 05/13/25 14:46 05/13/25 04:58 05/12/25 08:20 05/11/25 03:58 POC Glucose 343 mg/dl (70-106) Creatinine 1.13 mg/dL (0.700-1.30) Glomerular Filtration Rate Calc 82 mL/min (>90) Random Vancomycin Level 17.9 ug/mL (5-10) White Blood Count 7.1 10^3/uL (4.4-10.8) Red Blood Count 3.30 10^6/uL (4.5-5.90) Hemoglobin 9.0 g/dL (13.5-17.5) Hematocrit 28.5 % (41.0-53.0) Mean Corpuscular Volume 86.3 fL (80.0-100.0) Mean Corpuscular Hemoglobin 27.2 pg (28.0-32.0) Mean Corpuscular Hemoglobin Concent 31.5 g/dL (32.0-36.0) Red Cell Distribution Width 17.3 % (11.8-14.3) Platelet Count 119 10^3/uL (140-450) Mean Platelet Volume 6.8 fL (6.9-10.8) Neutrophils (%) (Auto) 70.0 % (37.0-80.0) Lymphocytes (%) (Auto) 24.6 % (10.0-50.0) Monocytes (%) (Auto) 4.5 % (0.0-12.0) Eosinophils (%) (Auto) 0.6 % (0.0-7.0) Basophils (%) (Auto) 0.3 % (0.0-2.0) Neutrophils # (Auto) 5.0 10 ^3/uL (1.6-8.6) Lymphocytes # (Auto) 1.7 10 ^3/uL (0.4-5.4) Monocytes # (Auto) 0.3 10 ^3/uL (0-1.3) Eosinophils # (Auto) 0 10 ^3/uL (0-0.8) Basophils # (Auto) 0 10 ^3/uL (0-0.2) Nucleated Red Blood Cells 0.0 % Cortisol AM Sample 20.28 ug/dL (5.27-22.45) Sodium Level 138 mmol/L (136-145) Potassium Level 3.6 mmol/L (3.5-5.1) Chloride Level 113 mmol/L (98-107) Carbon Dioxide Level 18 mmol/L (20-31) Anion Gap 7 (5-15) Blood Urea Nitrogen 12 mg/dL (9-23) BUN/Creatinine Ratio 12.0 (10.0-20.0) Serum Glucose 78 mg/dL (74-106) Calcium Level 6.5 mg/dL (8.7-10.4) Total Bilirubin < 0.2 mg/dL (0.2-1.0) Aspartate Amino Transferase (AST) 22 U/L (13-40) Alanine Aminotransferase (ALT) 19 U/L (7-40) Alkaline Phosphatase 481 U/L (46-116) Total Protein 4.2 g/dL (5.7-8.2) Albumin 1.5 g/dL (3.2-4.8) Test 05/09/25 13:49 05/09/25 11:48 05/09/25 04:55 05/08/25 07:50 Free Thyroxine (T4) Calculated 0.93 ng/dL (0.89-1.76) Free Triiodothyronine (T3) pg/mL 1.81 pg/mL (2.3-4.2) Vancomycin Level Trough 34.9 ug/mL (5-10) Differential Total Cells Counted 100.0 (100) Neutrophils % (Manual) 31 (37.0-80.0) Band Neutrophils % (Manual) 0 Lymphocytes % (Manual) 60 (10.0-50.0) Monocytes % (Manual) 7 (0-12) Eosinophils % (Manual) 2 (0-7) Basophils % (Manual) 0 (0.0-2.0) Metamyelocytes % (manual) 0 Myelocytes % (Manual) 0 Promyelocytes % (Manual) 0 Blast Cells % (Manual) 0 Reactive Lymphocytes 0 Platelet Estimate Adequate Beta-Hydroxybutyric Acid 0.062 mmol/L (< 0.4) Blood Gas Specimen Type Arterial Blood Gas Sample Site Left radial Blood Gas Patient Temperature 37.0 Arterial Blood Date Drawn [id number] Arterial Blood pH 7.320 (7.350-7.450) Arterial Blood Partial Pressure CO2 30.6 mmHg (35.0-48.0) Arterial Blood Partial Pressure O2 107.1 mmHg (83.0-108.0) Arterial Blood HCO3 15.4 mmol/L (21.0-28.0) Arterial Blood Oxygen Saturation 97.2 % (94.0-98.0) Arterial Blood Base Excess -9.6 mmol/L (-2.0-3.0) Arterial Blood Oxyhemoglobin 96.5 % (94.0-98.0) Arterial Blood Carboxyhemoglobin 0.3 % (0.5-1.5) Arterial Blood Methemoglobin 0.4 % (0.0-1.5) Kyle Test Yes Blood Gas Total Hemoglobin 8.90 g/dL (13.5-17.5) Blood Gas Modality Room air FiO2 % 21.0 Test 05/08/25 04:15 05/08/25 00:20 05/07/25 23:25 05/07/25 21:36 Serum Osmolality 304 mOsm/kg (278-298) Phosphorus Level 1.9 mg/dL (2.4-5.1) Magnesium Level 1.8 mg/dL (1.6-2.6) Urine Color Colorless (Yellow) Urine Clarity Clear (Clear) Urine pH 5.5 (5.0-9.0) Urine Specific [place]on 1.010 (1.001-1.035) Urine Protein Trace (Negative) Urine Ketones Negative (Negative) Urine Blood 2+ /uL (Negative) Urine Nitrite Negative (Negative) Urine Bilirubin Negative (Negative) Urine Urobilinogen Normal mg/dL (Negative) Urine Leukocyte Esterase 2+ /uL (Negative) Urine RBC 12 /hpf (0 - 3) Urine Microscopic WBC 118 /HPF (0-3) Urine Squamous Epithelial Cells None seen /hpf (<5) Urine Bacteria None seen /hpf (None Seen) Urine Glucose 4+ mg/dL (Normal) Urine Opiates Screen Neg (NEGATIVE) Urine Fentanyl Screen Neg (NEGATIVE) Urine Barbiturates Screen Neg (NEGATIVE) Urine Phencyclidine Screen Neg (NEGATIVE) Urine Amphetamines Screen Neg (NEGATIVE) Urine Benzodiazepines Screen Neg (NEGATIVE) Urine Cocaine Screen Neg (NEGATIVE) Urine Cannabinoids Screen Pos (NEGATIVE) Prothrombin Time 11.9 sec (9.3-11.8) Prothrombin Time INR 1.14 (0.9-1.15) Activated Partial Thromboplast Time 29.3 SEC (24.5-34.5) Ammonia 22 umol/L (11-32) Troponin I High Sensitivity < 3 ng/L (</=54) Triglycerides Level 337 mg/dL (< 150) Cholesterol Level 105 mg/dL (< 200) LDL Cholesterol 16 mg/dL (< 100) HDL Cholesterol 48 mg/dL (40-59) Thyroid Stimulating Hormone (TSH) 7.19 uIU/mL (0.55-4.78) Test 05/07/25 18:55 05/07/25 18:25 Influenza Type A Antigen Negative (Negative) Influenza Type B Antigen Negative (Negative) SARS-CoV-2 Antigen (Rapid) Negative (NEGATIVE) D-Dimer, Quantitative 1.17 mg/L FEU (0.0-0.49) Hemoglobin A1c 11.4 % A1C (<5.7) Lactic Acid Level 1.1 mmol/L (0.4-2.0) B-Type Natriuretic Peptide 158.40 pg/mL (0-100) Lipase 23 U/L (12-53) Vitamin B12 Level 1994 pg/mL (211-911) Vitamin D 25-Hydroxy 8.9 ng/mL (30.0-100) Other Laboratory Tests 05/13/25 04:58 05/12/25 08:20 05/11/25 03:58 Brief Hx & Hospital Course: 45-year-old male patient who presents to ER via EMS with complaint of altered mental status associated with hyperglycemia (over 600 mg/deciliters, measured by caregiver), nausea and chronic epigastric pain, prompting calling 911. Patient has not been compliant with medication. Patient is a poor historian, due to clinical status could not obtain rest of review of systems. Past medical history: Hyper tension, Diabetes type 1insulin-dependent, noncompliant with medication, multiple admissions due to DKA (most recent one less than 1 month ago) required previous ET intubation due to altered mental status, gastroparesis, severe malnutrition, completed endoscopy and evidence of sliding hernia and erosive esophagitis, nonocclusive DVT in left internal jugular on Eliquis, multiple sacral wounds present on admission, possible angioedema, normocytic anemia. 05/08: Here for [facility], does not have a cut lace machine operator for diabetes, he is type 1 diabetic. Multiple morbidities, admissions, still declines to go to cut lace machine operator for father. In the see GM with insulin pump to prevent recurrent admissions to improve survival. Currently patient was on HS, resolving. He also has hypothermia, getting bear hugger. Continuing antibiotics for wounds, sacral wound and heel wound pressure ulcers wound care consulted continuing antibiotic meropenem. - patient hypotensive in p.m., nonresponsive to fluid bolus, start Levophed. Blood culture Gram-negative rods, insert Owens and collect urine culture to find source. 05/09: HHS resolved, now hypoglycemia. Holding insulin. We will consult endocrinology. Patient is on D5 half-normal we will continue q.2h HX until we get optimal D5 half-normal to keep blood glucose > 80. Patient to start diet today full liquid diet.. Continue other medications. Continuing IV antibiotics, pending urine culture. Patient has whole-body swelling allergy to penicillins, we will add cefepime. 05/10. Continues to be weak, minimally tolerating any p.o.,. We will start Reglan 10 mg b.i.d. IV. Initial UA concerning for infection likely source., there is also history of lower extremity infection which could be possible also source. Patient needs to eat at least high-protein ensure twice daily. Continue D5 half NS at 1:50 a.m. cc hour. We will consult PT today., has been 48 hour almost since Owens insert, we will try repeat urine culture from Owens as the initial culture appears to be multi kit. 05/11: Endocrinology has started Lantus, because of hyperglycemia. Not there is again some hypoglycemia so D5 is back on. Patient is feeling stronger looking stronger more awake. He is eating more ensure. There was concern of right leg infection, currently right leg looks unconcerning, there is a wound on the lateral side on the right foot. Patient is hypothermic again requiring some bear hugger. 05/12: Endocrinology continues to work on optimizing needed insulin level. Patient improved. More energy. We will continue PT, having diarrhea which is his baseline. Once insulin regimen has been finalized patient will be ready for discharge, possible tomorrow. 05/13: Endocrine evaluated the patient and stable for discharge as per plan below. Diagnosis: DKA resolved hypoglycemia Metabolic encephalopathy due to above Uncontrolled type 1 diabetes mellitus with hyperglycemia, A1c 12 Noncompliance Chronic pressure ulcers, sacrum, right heel Microcytic anemia Severe protein calorie malnutrition Sepsis is ruled out Hypovolemic hyponatremia Prerenal RADHA, RADHA due to VMN Erosive esophagitis History marijuana use Cachexia Discharge instructions: - Monitor blood glucose fasting and 2 hours after meals - Puree soft mechanical diet, avoid fiber diet, diabetic diet/low carb - home health with home PT - Inject Humalog 1 unit every 8 hours as needed for BG > 250mg/dL - Patient to establish care with cut lace machine operator. Clinic # [phone]. - home health with home PT -[facility] to home -continue other home medications not mentioned above. Okay to continue Eliquis, furosemide tablet, pain pills, Reglan 5 mg 3 times daily, Clear ensure, Protonix 40 mg oral daily, - hold off amlodipine, Novolin R insulin, Lopressor/metoprolol tartrate, spironolactone/Aldactone, ursodiol - follow up with PCP . Reviewed with PCP to resume above held medications Condition at Discharge: Fair Final Diagnosis/Problems List DKA resolved hypoglycemia Metabolic encephalopathy due to above Uncontrolled type 1 diabetes mellitus with hyperglycemia, A1c 12 Noncompliance Chronic pressure ulcers, sacrum, right heel Microcytic anemia Severe protein calorie malnutrition Sepsis is ruled out Hypovolemic hyponatremia Prerenal RADHA, RADHA due to VMN Erosive esophagitis History marijuana use Cachexia Discharge Disposition: Home Discharge Instruct/Medications Scheduled Amlodipine Besylate (Amlodipine Besylate), 1 TAB PO DAILY, (Reported) Apixaban Base (Eliquis), 5 MG PO BID Furosemide (Furosemide), 40 MG PO DAILY Insulin Regular (Human) (Novolin R), 0 UNITS SC [id number] Metoclopramide Hcl (Reglan), 5 MG PO TID Metoprolol Tartrate (Lopressor), 25 MG PO BID Nutritional Supplements (Ensure Clear), 240 ML PO TIDWM Pantoprazole Sodium Sesquihydr (Pantoprazole Sodium), 40 MG PO DAILY@0600 Spironolactone (Aldactone), 25 MG PO DAILY Ursodiol (Ursodiol), 300 MG PO BID Miscellaneous Medications Hydrocodone-Acetaminophen (Hydrocodone/Acetaminophen 10-325 mg), (Reported) Discharge Statement: "Patient was advised to return to the ER or call 911 if any headaches, dizziness, shortness of breath, chest pain, abdominal pain, bleeding, fevers, or worsening of medical condition. Patient was counseled about treatment plan, medications, possible side effects, patientverbalized understanding. All questions were answered to the best of my ability. This discharge took greater then 30 minutes in planning, reviewing documentation, counseling the patient, and discussing with other team members." ASSESSMENT ASSESSMENT Assessment Date of Service: May 13, 2025 Billing Provider: BHAVANA HERNANDEZ MD Common Visit Codes: 91293-LZX/OBS DISCH DAY >30min BHAVANA HERNANDEZ MD May 13, 2025 15:33
[2025-05-13] MEDS ORDERED: INSULIN LISPRO (HUMAN) 100 UNITS/ML ML SC PRN (15:45)
[2025-05-13] MEDS: VANCOMYCIN 500mg/100mL 100 ML IV ONE (18:21)
== END 2025-05-13 21:16 | disposition home health service (06) | DRG 420 ==
LOC: ER 17:32 → EDBD 17:32 → EDUNIT# 17:32 → OVERFLOW 22:20 → DOU 05-08 05:25
PROVIDERS: ADMIT Student in an Organized Health Care Education/Training Program; ATTEND Student in an Organized Health Care Education/Training Program
DX: E10.10 Type 1 diabetes mellitus with ketoacidosis without coma (principal); N17.0 Acute kidney failure with tubular necrosis; G93.41 Metabolic encephalopathy; E43 Unspecified severe protein-calorie malnutrition; L89.150 Pressure ulcer of sacral region, unstageable; L89.623 Pressure ulcer of left heel, stage 3; E86.1 Hypovolemia; R64 Cachexia; E87.0 Hyperosmolality and hypernatremia; K22.10 Ulcer of esophagus without bleeding; E88.09 Other disorders of plasma-protein metabolism, not elsewhere classified; E10.649 Type 1 diabetes mellitus with hypoglycemia without coma; N39.0 Urinary tract infection, site not specified; D50.9 Iron deficiency anemia, unspecified; E10.622 Type 1 diabetes mellitus with other skin ulcer; K31.84 Gastroparesis; I10 Essential (primary) hypertension; E10.43 Type 1 diabetes mellitus with diabetic autonomic (poly)neuropathy; E55.9 Vitamin D deficiency, unspecified; I95.9 Hypotension, unspecified; F12.10 Cannabis abuse, uncomplicated; D53.9 Nutritional anemia, unspecified; G89.29 Other chronic pain; Z91.148 Patient's other noncompliance with medication regimen for other reason; Z91.119 Patient's noncompliance with dietary regimen due to unspecified reason; Z88.0 Allergy status to penicillin; Z79.4 Long term (current) use of insulin; Z83.3 Family history of diabetes mellitus; Z82.49 Family history of ischemic heart disease and other diseases of the circulatory system; Z82.0 Family history of epilepsy and other diseases of the nervous system; Z68.1 Body mass index [BMI] 19.9 or less, adult; Z86.718 Personal history of other venous thrombosis and embolism; Z79.01 Long term (current) use of anticoagulants; Z87.19 Personal history of other diseases of the digestive system; Z20.822 Contact with and (suspected) exposure to COVID-19; L89.616 Pressure-induced deep tissue damage of right heel
CPT/HCPCS: 36415; 36600; 70450; 71045; 80048; 80053; 80061; 80202; 80307; 81001; 82010; 82140; 82306; 82533; 82565; 82607; 82805; 82962; 83036; 83605; 83690; 83735; 83880; 83930; 84100; 84439; 84443; 84481; 84484; 85007; 85025; 85027; 85379; 85610; 85730; 86850; 86900; 86901; 87040; 87077; 87081; 87086; 87088; 87186; 87205; 87426; 87804; 96365; 96375; 97110; 97163; 99291; G0378; J1815; J2185; J2405; J2470